=== PATIENT | female | born 1960 | race Caucasian/White ===

== ENCOUNTER 2020-01-26 11:00 | Outpatient (RCR) | payer OTHER, SELFPAY ==
--- NOTE | 2020-03-03 12:01 | MHC.PT.DC ---
[facility] [place] Office [place] Office [place] Office [address] Autumn Remy [address] [phone] F: [phone] F: [phone] F: [phone] F: [phone] Physical Therapy Discharge Report Diagnosis: LE Weakness, OA R Knee Date of Surgery: NA Date of Evaluation: 09/05/19 Date of Discharge: 01/26/20 Treatments to Date: 31 Cancellations to Date: 5 No Shows to Date: 2 Discharge Status: Improved Function Independent with HEP Discharge Summary: PER NOTE 01/25 FROM [facility]...pt with increased randy for ex. Gt distance and quality have improved. D/c to HEP per PT plan today. Electronically signed by: RUBÉN COBB PT Please sign and return to therapist. Thank you for your referral.
== END 2020-03-31 13:39 | disposition other institution (70) ==
LOC: HO.PT 11:00
PROVIDERS: PCP Orthopaedic Surgery; Visit Provider Orthopaedic Surgery
DX: M17.11 Unilateral primary osteoarthritis, right knee (principal); R53.81 Other malaise
CPT/HCPCS: 97110; 97530

== ENCOUNTER → 2020-02-03 08:16 | Outpatient (BNVA) | payer OTHER, SELFPAY | PROVIDERS: PCP Internal Medicine; Visit Provider Surgery | DX: Z76.89 Persons encountering health services in other specified circumstances (principal) ==

== ENCOUNTER 2020-02-13 12:18 | Outpatient (REF) | payer OTHER, SELFPAY ==
[2020-02-13 13:17] LABS: MANUAL DIFF FLAG NO
[2020-02-13 13:20] LABS: Basophils Percent Auto 0.9 % (0-2); Eosinophils Absolute Auto 0.1 X10*3/uL (0.0-0.4); Eosinophils Percent Auto 1.3 % (0-4); Hematocrit 42.7 % (37-47); Hemoglobin 13.5 g/dl (12.0-16.0); Imm Gran Abs Auto 0.02 X10*3/uL (0.00-0.03); Imm Gran Pct Auto 0.4 % (0.0-0.4); Lymphocytes Absolute Auto 1.3 X10*3/uL (1.2-4.9); Lymphocytes Percent Auto 27.5 % (20-40); Mean Corpuscular HGB Conc 31.6 g/dl (31.0-35.0); Mean Corpuscular Hemoglobin 27.7 pg (27.0-33.0); Mean Corpuscular Volume 87.5 fL (80-98); Monocytes Absolute Auto 0.3 X10*3/uL (0.1-1.2); Monocytes Percent Auto 7.1 % (2-11); Neutrophils Absolute Auto 2.9 X10*3/uL (2.0-8.3); Neutrophils Percent Auto 62.8 % (45-73); Platelet Count 234 X10*3/uL (160-400); Red Blood Count 4.88 X10*6/uL (4.20-5.50); Red Cell Distribution Width 13.6 % (11.0-16.0); White Blood Count 4.7 X10*3/uL (4.8-10.8)
[2020-02-13 13:37] LABS: Estimated Average Glucose 134 mg/dL; Hemoglobin A1c % 6.3 %
[2020-02-13 13:53] LABS: Alanine Aminotransferase 45 U/L (0-31); Albumin Level 4.3 g/dL (3.5-5.0); Alkaline Phosphatase 114 U/L (39-117); Anion Gap 12 (12-20); Aspartate Amino Transferase 30 U/L (5-31); Bilirubin Total 0.7 mg/dL (0.0-1.0); Blood Urea Nitrogen 10 mg/dL (9-16); C Reactive Protein 1.17 mg/dL (< or = 0.50); Carbon Dioxide 29 mmol/L (22-29); Chloride 105 mmol/L (96-108); Cholesterol 158 mg/dL; Estimated Glomerular Filt Rate > 60; Glucose Random 113 mg/dL (60-115); HDL Cholesterol 34 mg/dL; LDL Cholesterol Calculated 101 mg/dl; Potassium 4.8 mmol/l (3.3-5.1); Sodium 141 mmol/L (135-145); Triglycerides 118 mg/dL
[2020-02-13 13:59] LABS: Calcium 10.4 mg/dL (8.4-10.2)
[2020-02-13 14:12] LABS: Ferritin 84 ng/mL (10-250); TSH reflex Free T4 1.33 mIU/mL (0.32-4.0); Vitamin D 25-OH Total 44.6 ng/mL (>30)
[2020-02-13 14:24] LABS: Folate 11.5 ng/mL (> or = 4.0); Vitamin B12 454 pg/mL (200-900)
[2020-02-15 14:03] LABS: Calcium (PTHI) 10.8 mg/dL (8.6-10.4); PTHI 135 pg/mL (14-64)
[2020-02-17 13:12] LABS: Zinc 77 mcg/dL (60-130)
[2020-02-19 11:17] LABS: Vitamin B1 17 nmol/L (8-30)
[2020-02-19 19:53] LABS: Vitamin A 43 mcg/dL (38-98)
== END 2020-02-13 12:19 | disposition home or self-care (01) ==
LOC: HO.LAB 12:18
PROVIDERS: PCP Internal Medicine; Visit Provider Surgery
DX: E66.01 Morbid (severe) obesity due to excess calories (principal); I10 Essential (primary) hypertension; G47.30 Sleep apnea, unspecified; K21.9 Gastro-esophageal reflux disease without esophagitis; E78.5 Hyperlipidemia, unspecified
CPT/HCPCS: 36415; 80053; 80061; 82306; 82607; 82728; 82746; 83036; 83525; 83970; 84425; 84443; 84590; 84630; 85025; 86140

== ENCOUNTER 2020-02-19 08:56 | Outpatient (REF) | payer OTHER, SELFPAY ==
[2020-02-20 15:28] LABS: H Pylori Breath Test NOT DETECTED (NOT DETECTED)
== END 2020-02-19 08:57 | disposition home or self-care (01) ==
LOC: HO.LNP 08:56
PROVIDERS: PCP Internal Medicine; Visit Provider Physician Assistant
DX: E66.01 Morbid (severe) obesity due to excess calories (principal); I10 Essential (primary) hypertension; G47.30 Sleep apnea, unspecified; K21.9 Gastro-esophageal reflux disease without esophagitis; E78.5 Hyperlipidemia, unspecified; Z11.0 Encounter for screening for intestinal infectious diseases
CPT/HCPCS: 83013; 99211

== ENCOUNTER → 2020-03-01 08:07 | Outpatient (BNVA) | payer OTHER, SELFPAY | PROVIDERS: PCP Internal Medicine; Visit Provider Surgery | DX: Z76.89 Persons encountering health services in other specified circumstances (principal) ==

== ENCOUNTER 2020-03-02 14:57 | Outpatient (REF) | payer OTHER, SELFPAY | END 2020-03-02 14:58 | disposition home or self-care (01) | LOC: HO.LAB 14:57 | PROVIDERS: PCP Internal Medicine; Visit Provider Surgery | DX: Z13.89 Encounter for screening for other disorder (principal) ==

== ENCOUNTER → 2020-03-03 08:12 | Outpatient (BNVA) | payer OTHER, SELFPAY | PROVIDERS: PCP Internal Medicine; Referring Provider Internal Medicine; Visit Provider Dietitian, Registered | DX: Z76.89 Persons encountering health services in other specified circumstances (principal) ==

== ENCOUNTER 2020-03-16 09:56 | Outpatient (REF) | payer OTHER, SELFPAY ==
--- NOTE | 2020-03-16 10:01 | FL_ITS ---
EXAMINATION: XR GI SERIES CLINICAL INFORMATION: Obesity. Preop. COMPARISON: None TECHNIQUE: Upper GI was performed using thin and thick barium and effervescent granules. FINDINGS: Esophageal motility is normal. There is a small sliding-type hiatal hernia. There is mild gastroesophageal reflux. The stomach and duodenum are normal appearing. No fold thickening, mass, ulcer or stricture is seen. FLUOROSCOPY TIME: 1.1 minutes DOSE AREA PRODUCT: 13.7 landrum per centimeter squared. Total dose 61 mgy. 26 saved fluoroscopic images. FL/FL upper GI series IMPRESSION: Small sliding-type hiatal hernia and mild gastroesophageal reflux. Otherwise unremarkable exam.
--- NOTE | 2020-03-16 10:01 | XR_ITS ---
EXAMINATION: XR CHEST CLINICAL INFORMATION: Morbid to severe obesity. Preop. COMPARISON: None TECHNIQUE: 2 views of the chest were obtained. FINDINGS: The lungs are well-expanded and clear of acute process. The heart size and pulmonary vascularity is normal. No gross bony abnormality seen. XR/XR chest 2V IMPRESSION: Unremarkable chest exam
--- NOTE | 2020-03-16 10:03 | US_ITS ---
EXAMINATION: US COMPLETE ABDOMEN WITH LIVER ELASTOGRAPHY CLINICAL INFORMATION: Obesity COMPARISON: None. TECHNIQUE: Real-time imaging of the abdominal viscera. Noninvasive ultrasound liver fibrosis assessment is performed using Ann-Marie ElastPQ point quantification shear wave elastography (pSWE) with a 5 MHz transducer. Multiple elastography samples are obtained. FINDINGS: PANCREAS: Normal. ABDOMINAL AORTA: The proximal, middle, and distal aortic segments are normal in caliber. INFERIOR VENA CAVA: Visualized portions are normal. LIVER: Liver echotexture is increased probably representing fatty infiltration. No focal lesion or intrahepatic biliary duct dilatation. The liver is slightly enlarged. The right lobe measures 18.7 cm in length. The left lobe measures 12.8 cm in length. The main portal vein is patent with appropriate hepatopedal flow Shear wave elastography provides a median stiffness of 1.3 m/s (reference: normal median stiffness is 0.81 - 1.22 m/s). The IQR/median stiffness to assess sampling precision is 0.2 (reference: optimal IQR/median stiffness is under 0.3). GALLBLADDER: No gallstones are seen. There is a 2 mm echogenic density adjacent to the gallbladder wall that does not move or shadow suggestive of a small polyp.. COMMON BILE DUCT: Normal in caliber measuring 0.3 cm in diameter. RIGHT KIDNEY: There is a 2 x 2.7 x 2.3 cm hyperechoic lesion in the cortex of the lower pole of the right kidney. There is a second smaller 7 x 5 x 6 mm hyperechoic lesion in the cortex of the midpole. No hydronephrosis. No renal calculi. The kidney measures 12.3 cm in maximum dimension. LEFT KIDNEY: There is a 3 mm echogenic density in the midpole questionable for a stone. No hydronephrosis. No focal parenchymal lesions. The kidney measures 11.9 cm in maximum dimension. SPLEEN: Normal. The spleen measures 11.8 cm in maximum dimension. FREE FLUID: None. US/US abdomen comp w elastography IMPRESSION: 1. Impression: slightly enlarged echogenic liver probably representing fatty infiltration. Small gallbladder wall polyp. 2 hyperechoic right renal lesions questionable for angiomyolipomas. Confirmation with CT or MRI of the kidneys is recommended. Question small left renal stone. 2. Elastography: Metavir score F0 to F1 suggestive of normal to mild increased risk of developing liver fibrosis.
--- NOTE | 2020-03-16 14:14 | PFT_ITS ---
FLOWS: FEV1 of 61% of predicted at 1.55 L. FVC 59% of predicted at 1.88 L. FEV1 to FVC ratio of 0.83. No bronchodilator response. LUNG VOLUMES: Total lung capacity 63% of predicted at 3.20 L. Residual volume 50% of predicted at 1.02 L. Diffusion capacity is mildly decreased, diffusion capacity adjust to normal after correction for alveolar ventilation. IMPRESSION: Moderate restrictive ventilatory defect with no bronchodilator response. Decreased expiratory reserve volume suggests extrathoracic restriction likely secondary to abdominal obesity. Jose Daniel Nguyễn MD AP/MODL / [id number]
== END 2020-03-16 09:57 | disposition home or self-care (01) ==
LOC: HO.US 09:56
PROVIDERS: PCP Internal Medicine; Visit Provider Surgery
DX: Z01.818 Encounter for other preprocedural examination (principal); E66.01 Morbid (severe) obesity due to excess calories; K21.9 Gastro-esophageal reflux disease without esophagitis; J45.41 Moderate persistent asthma with (acute) exacerbation
CPT/HCPCS: 71046; 74240; 76705; 76981; 94060; 94727; 94729

== ENCOUNTER 2020-03-19 18:56 | Outpatient (REF) | payer OTHER, SELFPAY ==
[2020-03-21 19:17] LABS: Calcium, 24 Hr Urine 189 mg/24 h; Calcium/Creatinine Ratio 246 mg/g creat (30-275); Creatinine 24Hr Urine 0.77 g/24 h (0.50-2.15)
== END 2020-03-19 18:57 | disposition home or self-care (01) ==
LOC: HO.LNP 18:56
PROVIDERS: Visit Provider Surgery
DX: E83.52 Hypercalcemia (principal)
CPT/HCPCS: 82340

== ENCOUNTER → 2020-03-26 08:25 | Outpatient (BNVA) | payer OTHER, SELFPAY | PROVIDERS: PCP Internal Medicine; Visit Provider Surgery | DX: Z76.89 Persons encountering health services in other specified circumstances (principal) ==

== ENCOUNTER → 2020-04-07 08:12 | Outpatient (BNVA) | payer OTHER, SELFPAY | PROVIDERS: PCP Internal Medicine; Visit Provider Dietitian, Registered | DX: Z76.89 Persons encountering health services in other specified circumstances (principal) ==

== ENCOUNTER → 2020-04-19 15:07 | Outpatient (BNVA) | payer OTHER, SELFPAY | PROVIDERS: PCP Internal Medicine; Visit Provider Internal Medicine Pulmonary Disease | DX: Z01.811 Encounter for preprocedural respiratory examination (principal) | CPT/HCPCS: 99202 ==

== ENCOUNTER → 2020-04-21 08:20 | Outpatient (BNVA) | payer OTHER, SELFPAY | PROVIDERS: PCP Internal Medicine; Visit Provider Surgery ==

== ENCOUNTER → 2020-04-28 08:19 | Outpatient (BNVA) | payer OTHER, SELFPAY | PROVIDERS: PCP Internal Medicine; Visit Provider Dietitian, Registered ==

== ENCOUNTER 2020-05-06 08:07 | Outpatient (REF) | payer OTHER, SELFPAY ==
--- NOTE | ~2020-05-06 | CT_ITS ---
EXAMINATION: CT ABDOMEN AND PELVIS WITH CONTRAST CLINICAL INFORMATION: Benign lipomatous neoplasm of the kidney. COMPARISON: Ultrasound of 03/16/2020 TECHNIQUE: Multidetector volumetric images were obtained from the superior aspect of the liver through the pubic symphysis following administration 85 mL of Omnipaque 350 intravenous contrast. Sagittal and coronal reformatted images were obtained on the technologist's workstation. Oral contrast: No. This CT examination was performed using dose optimization techniques as appropriate, variously including the following: *Automated exposure control *Adjustment of mA and/or kV according to patient size (this includes techniques or standardized protocols for targeted exams where dose is matched to indication/reason for exam; i.e. extremities or head) *Use of iterative reconstruction technique DLP: 1343 mGy-cm FINDINGS: LUNG BASES: The visualized lung bases are unremarkable. No pleural or pericardial effusion. LIVER, GALLBLADDER, AND BILIARY TREE: The liver is prominent at 19.5 cm in vertical span. No focal mass or intrahepatic bile duct dilatation is seen. The gallbladder is unremarkable with no evidence of radiopaque gallstones, gallbladder wall thickening, or obvious pericholecystic inflammatory changes. PANCREAS: There is some fatty involution present without focal mass or peripancreatic inflammatory change. SPLEEN: Unremarkable. ADRENAL GLANDS: Unremarkable. KIDNEYS AND URETERS: Right kidney: There is a 3 mm upper pole nonobstructing calculus which lies approximately 11 cm from the posterior mid axillary line. There are two 2 mm nonobstructing calculi seen within the mid to lower pole of the right kidney approximately 11 cm from the posterior mid axillary line. There are a few sub-5 mm low-density lesions present which may represent small cysts or angiomyolipomas. There is an exophytic anterior lower pole fat density lesion measuring approximately 3.0 x 2.7 cm in size with Hounsfield unit measurements of -40. No definite soft tissue component is appreciated. No hydronephrosis. Column of Rico present. Right ureter unremarkable. Left kidney: There are numerous fat density lesions present, the largest of which is in the lower pole measuring 1.7 x 1.2 cm in size. No hydronephrosis. There is a 4 mm nonobstructing lower pole calculus lying approximately 11.5 cm from the posterior mid axillary line. Left ureter appears unremarkable. BLADDER: Unremarkable. GASTROINTESTINAL TRACT: No dilated loops of large or small bowel are evident. No free air or free fluid. Mild sigmoid diverticulosis. No evidence of acute diverticulitis. No pericolonic inflammatory change. Appendix is visualized and appears unremarkable. ABDOMINAL WALL: No significant hernia is appreciated. LYMPH NODES: No lymphadenopathy appreciated. VASCULAR: Unremarkable. PELVIC VISCERA: Unremarkable. OSSEOUS STRUCTURES: No destructive bony lesions identified. There is degenerative disc disease with facet arthropathy at the L5-S1 level with a grade [address]/CT abdomen pelvis w con IMPRESSION: Bilateral nephrolithiasis without obstructive uropathy. Numerous bilateral fat density renal lesions without suspicious enhancing mass appreciated.
[2020-05-06 09:20] LABS: Blood Urea Nitrogen 12 mg/dL (9-16); Estimated Glomerular Filt Rate > 60
[2020-05-06] MEDS: iohexoL 350 MG/ML 100 ML INFUS..BTL 85 ML IV (09:40)
--- NOTE | 2020-05-06 09:58 | ECG_ITS ---
Test Reason : E66.01 - Morbid (severe) obesity due to excess calories Blood Pressure : / mmHG Vent. Rate : 069 BPM Atrial Rate : 069 BPM P-R Int : 162 ms QRS Dur : 106 ms QT Int : 414 ms P-R-T Axes : 072 094 016 degrees QTc Int : 443 ms Normal sinus rhythm Rightward axis Incomplete right bundle branch block Borderline ECG No previous ECGs available Referred By: Randy Domínguez Electronically Signed By:MARII THURSTON MD
== END 2020-05-06 08:08 | disposition home or self-care (01) ==
LOC: HO.CT 08:07
PROVIDERS: Physician Assistant; PCP Internal Medicine; Visit Provider Surgery
DX: Z01.818 Encounter for other preprocedural examination (principal); D17.71 Benign lipomatous neoplasm of kidney; E66.01 Morbid (severe) obesity due to excess calories; E78.5 Hyperlipidemia, unspecified; G47.30 Sleep apnea, unspecified; I10 Essential (primary) hypertension; K21.9 Gastro-esophageal reflux disease without esophagitis
CPT/HCPCS: 36415; 74177; 82565; 84520; 93005; Q9967

== ENCOUNTER → 2020-05-11 08:07 | Outpatient (BNVA) | payer OTHER, SELFPAY | PROVIDERS: PCP Internal Medicine; Visit Provider Dietitian, Registered ==

== ENCOUNTER → 2020-05-17 07:29 | Outpatient (BNVA) | payer OTHER, SELFPAY | PROVIDERS: PCP Internal Medicine; Visit Provider Surgery ==

== ENCOUNTER → 2020-05-24 07:48 | Outpatient (REF) | payer OTHER, SELFPAY ==
--- NOTE | ~2020-05-24 | NM_ITS ---
Myocardial perfusion study Indication: Abnormal EKG to evaluate for myocardial ischemia Technique: The patient was brought in for a Lexiscan perfusion study on 05/24/2020. Patient performed low-level exercise and was injected 0.4 mg of Lexiscan intravenously. Within a minute of injection, 40 mCi of sestamibi was given intravenously. Images were obtained using the SPECT gamma camera interlaced with the gating device. Images were obtained in supine position. Resting perfusion study was performed on 05/25/2020. Patient was administered 40 mCi of sestamibi intravenously at rest. Images were then obtained in supine position. Images obtained with and without CT attenuation. Total DLP 128 mGy-cm. Images were processed with the software and compared side to side in short axis, horizontal long axis and vertical long axis views. Findings: The stress perfusion study showed non attenuated images show small area of moderately reduced uptake in the basal inferior wall of the LV myocardium as well as mildly reduced uptake in the basal septum of the LV myocardium. Attenuation corrected images show minimal thinning of the basal inferior wall of the LV myocardium with mildly reduced uptake in the distal septum of the LV myocardium.. The gated study shows normal LV systolic function with calculated LVEF of 55%. LV cavity is normal in size. The gated study shows normal systolic wall thickening and contraction of segments. Resting study shows attenuation corrected images show normal uptake of radiotracer in all segments of LV myocardium with minimally reduced uptake in the apex of the LV myocardium.. Gating at rest reveals normal systolic wall motion with ejection fraction at 59%. The findings are consistent with shifting of inferobasal wall on attenuated corrected images but no significant reduction uptake. This is an equivocal finding, however most likely normal myocardial perfusion.. NM/NM yessi perf SPECT rest & str Impression: 1. Myocardial perfusion imaging study shows likely normal myocardial perfusion 2. Gated LVEF is 55% 3. Transient ischemic dilatation not present EKG is nondiagnostic for ischemia
--- NOTE | 2020-05-24 07:51 | CA_ITS ---
Acquisition Time: 2020-05-24 08:10:46 Total Exercise Time: 00:02:00 Test Indications: Abnormal ECG Medications: Protocol: LEXISCAN Max HR: 088 BPM 55% of Pred: 159 BPM Max BP: 126/078 mmHG Max Work Load: 1.0 METS Pharmacological stress test using Lexiscan while sitting and kicking her feet. Pt tolerated well. Denies any anginal sx. EKG without arrythmias, non-diagnostic with ischemia. Nuclear images to follow. Normotensive response to test. Test reviewed with Dr. Rodrigez. Referred By: Randy Domínguez Overread By: Myla Nichols NP
== END ==
LOC: HO.CARD 07:48
PROVIDERS: PCP Internal Medicine; Visit Provider Surgery
DX: Z01.818 Encounter for other preprocedural examination (principal); I10 Essential (primary) hypertension; R94.31 Abnormal electrocardiogram [ECG] [EKG]
CPT/HCPCS: 78452; 93017; A9500; J0280; J2785

== ENCOUNTER → 2020-06-01 11:11 | Outpatient (BNVA) | payer OTHER, SELFPAY | PROVIDERS: PCP Internal Medicine; Visit Provider Dietitian, Registered ==

== ENCOUNTER → 2020-06-09 08:16 | Outpatient (BNVA) | payer OTHER, SELFPAY | PROVIDERS: PCP Internal Medicine; Visit Provider Surgery ==

== ENCOUNTER → 2020-06-23 09:21 | Outpatient (REF) | payer OTHER, SELFPAY ==
--- NOTE | 2020-06-23 09:23 | CA_ITS ---
Transthoracic Echocardiogram Patient (Last, First, Middle): Ana Luisa House A Gender: Female Date of : 1960 Age: 59 Procedure Date: 06/23/2020 Procedure Type: Transthoracic Echocardiogram Location: OP Height: 162.56 cm Weight: 108.86 kg BSA: 2.11 m2 Heart Rate: bpm BP: 130 / 76 mmHg Private Branch Exchange Operator: CAR Referring MD: Randy Domínguez MD Symptoms: R94.31 - Abnormal electrocardiogram [ECG] [EKG] Study Quality: Fair/contrast ECG Rhythm: Sinus Conclusions: - The left ventricular systolic function is normal. The visually estimated ejection fraction is between 60-65%. - There is mild mitral annular calcification. - No obvious valvular pathology seen on this study. Findings Procedure Information Contrast agent, definity, is being given per protocol without apparent complications. Left Ventricle Normal left ventricular cavity size. There is mildly increased left ventricular wall thickness. The left ventricular systolic function is normal. The visually estimated ejection fraction is between 60-65%. The calculated ejection fraction is 63% by biplane method. There is no evidence of regional wall motion abnormalities. Diastolic function is normal for age. Right Ventricle Normal right ventricular cavity size and systolic function. Atria The left atrium is normal in size. The right atrium is normal in size. Aortic Valve The aortic valve was not well visualized. There is no aortic valve stenosis. There is no aortic valve regurgitation. Mitral Valve There is mild mitral annular calcification. There is trace mitral valve regurgitation. There is no mitral valve stenosis. Pulmonic Valve The pulmonic valve was not well visualized. Tricuspid Valve There is trace tricuspid valve regurgitation. The pulmonary artery systolic pressure is normal. Great Vessels The aortic annulus, sinuses of valsalva, asc aorta, and aortic arch are normal in size. Venous The inferior vena cava is normal in size and collapses greater than 50% with inspiration. Pericardium/Pleural There is no evidence of pericardial effusion. Prior Study Comparison No prior study available for comparison. Recommendations, Care & Conclusions No obvious valvular pathology seen on this study. Measurements 2D Linear Measurements IVSd: 1.07 0.6-0.9/0.6-1.0 cm LVIDd: 4.36 3.9-5.3/4.2-5.9 cm LVIDd Index: 2.07 2.4-3.2/2.2-3.1 cm/m2 LVIDs: 2.65 2.0-3.6 cm LVPWd: 1.10 0.7-1.1 cm Ao Root: 2.30 2.1-3.5 cm LA Diam: 3.60 2.7-3.8/3.0-4.0 cm LAIDs Index: 1.71 1.5-2.3 cm/m2 LV Mass: 203.39 67-162/88-224 g LV Mass Index: 96.39 43-95/49-115 g/m2 LVOT Diam: 2.00 3.0+(-)1.3 cm 2D Systolic Function EF 4C: 65.10 >55% EF 2C: 60.70 >55% EF BiP: 63.30 >55% Mitral Valve MV Pk E: 0.75 MV PK A: 0.98 MV Decel Time: 261.00 E/A: 0.80 E'Lateral: 5.90 E'Medial: 5.71 E/E' Med: 13.10 E/E' Lat: 12.60 PHT: 76.00 MVA PHT: 2.89 Decel [place]: 2.86 Aortic Valve AoV Pk Junior: 1.71 AoV Mn Junior: 1.04 AoV VTI: 0.32 AoV Pk Grad: 12.00 Aov Mn Grad: 5.00 SYD Cont.VTI: 2.68 LVOT LVOT Pk Junior: 1.28 LVOT Mn Junior: 0.84 LVOT VTI: 0.27 LVOT Pk Grad: 7.00 LVOT Mn Grad: 3.00 LVOT Diam: 2.00 LVOT Area: 3.14 Diastolic Function MV Pk E: 0.75 MV Pk A: 0.98 E/A: 0.80 E'Medial: 5.71 E/E' Med: 13.10 E' Laterial: 5.90 E/E' Lat: 12.60 Tricuspid Valve TR Pk Junior: 1.81 TR Pk Grad: 13.00 RA Press: 3.00 RVSP: 16.00 Great Vessels Aorta Ao Root-2D: 2.30 2.0-3.7 cm Ao Asc: 3.10 2.1-3.4 cm Ao Arch: 2.60 Updated in Other Vendor System with Status of Final Tu Pickens MD electronically signed on 06/23/2020 4:19:43 PM with status of Final
== END ==
LOC: HO.CARD 09:21
PROVIDERS: PCP Internal Medicine; Visit Provider Surgery
DX: Z01.818 Encounter for other preprocedural examination (principal); I10 Essential (primary) hypertension; R94.31 Abnormal electrocardiogram [ECG] [EKG]
CPT/HCPCS: 93306; Q9957

== ENCOUNTER → 2020-06-30 08:28 | Outpatient (BNVA) | payer OTHER, SELFPAY | PROVIDERS: PCP Internal Medicine; Visit Provider Surgery ==

== ENCOUNTER → 2020-07-21 08:09 | Outpatient (BNVA) | payer OTHER, SELFPAY | PROVIDERS: PCP Internal Medicine; Visit Provider Surgery ==

== ENCOUNTER → 2020-08-16 07:46 | Outpatient (BNVA) | payer OTHER, SELFPAY | PROVIDERS: PCP Internal Medicine; Visit Provider Surgery ==

== ENCOUNTER 2024-01-21 10:41 | Outpatient (AMB) | payer OTHER, SELFPAY ==
--- NOTE | 2024-01-21 10:43 | MHC.OFFVIS ---
Vital Signs 01/21/24 10:44 Height 5 ft 3 in Weight 278 lb BMI 49.2 Intake Visit Reasons: 05/30 LVM+Let ENP-Amaurosis fugax R eye Intake Note: Patient presents for Amaurosis fugax R eye Allergies cefadroxil [From Duricef] Allergy (Verified 01/21/24 10:47) Unknown Penicillins Allergy (Verified 01/21/24 10:47) Unknown Medication List - Last Reconciled 01/21/24 by Marquita Tripp MD albuterol sulfate 90 mcg/actuation inhalation amlodipine (Norvasc) 10 mg PO DAILY atorvastatin 20 mg PO DAILY cholecalciferol (vitamin D3) 125 mcg PO DAILY clonidine 1 patch topical QWEEK docusate sodium 100 mg PO BID flu vacc [id number] 6mos up(PF) mL IM fluticasone propionate 50 mcg/actuation intranasal ibuprofen 600 mg PO TID PRN levothyroxine 125 mcg PO DAILY losartan 50 mg PO DAILY mepolizumab mg subcut mirabegron ER 50 mg PO DAILY montelukast 10 mg PO DAILY pantoprazole mg PO sennosides mg PO sertraline 100 mg PO DAILY solifenacin 10 mg PO DAILY spironolactone 25 mg PO DAILY sumatriptan succinate take 1 tab at onset of headache; if no relief may repeat 1 tab after at least 2 hrs; max = 4 tabs/24 hr PO tiotropium bromide 1.25 mcg/actuation inhalation trazodone mg PO venlafaxine ER (Effexor XR) 37.5 mg PO BEDTIME HPI Comments Details: 63 year old female with h/o Glaucoma, VIRGIE / BMI is 49.2 and possible TIA Apr 2023, presents for vision difficulties. She thinks she had a TIA, her symptoms lasted 10 min, and resolved. She was at her PCP office and sent to [facility], ever since then is having speech, vision and memory difficulties. She is concerned due to family h/o dad dementia and mom with alzheimer at 86. PcP is Dr. Rayne Pulido, [facility] When she speaks, the words she uses are different from what she is trying to express. When Processing speech it takes her longer to understand what is being said to her. She lost her vision completely, at the onset of headache at her PCP. Headaches one sided then migrates to the right side. R>L Headaches last 5-20 minutes, but she lays down for days. Headaches have been present for 10 + years. Migraines occur every 2 week with vision changes, becomes frustrated, can't focus, sees floaters, like bubbles 1x amonth. Her Mood is irritable, stubborn personality according to daughter, her [employer]. Her Daughter helps with ADLs, as she has Bowel and Urinary incontinence along with urgency. Denies Nausea and Vomiting. Endorses Light and noise sensitivity. Her memory is poor, she gets lost alot. [facility] Medical History Transient visual loss Cognitive and behavioral changes Loss of vision Paroxysmal hemicrania Chronic migraine with aura Constipation Insomnia DJD (degenerative joint disease) Hypothyroidism Stress incontinence GERD (gastroesophageal reflux disease) Hyperlipidemia Sleep apnea Asthma Hypertension Surgical History History of rotator cuff surgery Morbid obesity History of bladder suspension procedure Hx of hernia repair History of mandibular surgery Family History Mother Alzheimer disease Pulmonary emphysema Diabetes Asthma Father Diabetes Hypertension Pacemaker Sister Diabetes Sister Diabetes Brother Hypertension Brother No problems noted. Daughter Asthma Social History Alcohol intake: never Advance Directives Date on File: 12/15/19 Review of Systems ENT Reports Normal hearing present Neuro Reports Normal hearing present and Reports Abnormal speech present Physical Exam Vital Signs: BMI result Body Mass Index 49.2 Const General: cooperative and no acute distress Nutritional Appearance: obese (BMI >49.2) centrally obese Orientation/consciousness: patient oriented x3 HEENT Head: Yes normal to inspection Face and sinus: Yes face symmetric Mouth: tongue normal Eyes General: appearance normal, both eyes and all related structures Pupils: Equal, round and reactive pupils present, Pupils normal by confrontation and Pupil accommodation reflex normal Neck Neck: Yes full ROM (Limited ROM to the L and the R.) Resp Effort & Inspection: normal respiratory effort and able to speak in complete sentences Neuro General: patient oriented x3, moves all extremities (slow movements /L side weak d/t surgery rotator cuff.), Normal light touch and pain sensation and CN's II-XI intact bilaterally Cranial nerves: Yes CN's II-XII intact bilaterally, Yes Facial sensation intact/muscles of mastication intact, Yes Equal, round and reactive pupils present, Yes Normal accommodation reflex present, Yes Nystagmus not present, Yes Normal facial strength present, Yes Midline tongue present, Yes Normal hearing present, Yes Ability to bilaterally rotate head present (Limited ROM R side and Left side.) and Yes Ability to bilaterally elevate shoulders present Speech: Abnormal speech present other (pauses for 30 seconds, and takes a breath then speaks.) Motor exam (neuro): 5/5 motor strength present throughout (Decreased strength Lower EXT and L. side to resistance.) Deep tendon reflexes (DTR's): Right triceps reflex intensity grade: 2+, Rt Biceps (C5, C6): 2+, Right brachioradialis reflex intensity grade: 2+, Right patellar reflex intensity grade: 2+ and Left patellar reflex intensity grade: 2+ Coordination: [id number] test normal Assessment & Plan Assessment & Plan (1) Chronic migraine with aura: Comment: ? paroxysmal hemicrania Code(s): G43.E09 - Chronic migraine with aura, not intractable, without status migrainosus Category: Medical Qualifiers: Intractability: intractable Status migrainosus presence: without status migrainosus Qualified Code(s): G43.E19 - Chronic migraine with aura, intractable, without status migrainosus (2) Transient visual loss: Comment: ? related to migraine -unlikely due o a TIA Code(s): H53.129 - Transient visual loss, unspecified eye Category: Medical Qualifiers: Laterality: bilateral Qualified Code(s): H53.123 - Transient visual loss, bilateral (3) Cognitive and behavioral changes: Code(s): R41.89 - Other symptoms and signs involving cognitive functions and awareness; R46.89 - Other symptoms and signs involving appearance and behavior Category: Medical Plan I will trial her on sumatriptan succinate 50mg take 1 tab at onset of headache; if no relief may repeat 1 tab after at least 2 hrs; max = 4 tabs/24 hr PO venlafaxine ER for prophylaxis (Effexor XR) 37.5 mg PO BEDTIME MRI - family h/o of Alzheimers Dementia, she is having word finding and expressive difficulties. Possible TIA in Apr 2023. suggested to follow up with Eye Exams as patient continues to have blurry vision and flashing. Track migraines MRI Brain to r/o revsible causes Labs- Vit B 12 TSH ESR CMP CBC to r/o reversible causes Will consider sleep study Orders: Orders Vitamin B12 and Folate 01/22/24 G44.039 - Episodic paroxysmal hemicrania, not intractable, H54.7 - Unspecified visual loss, R41.89 - Other symptoms and signs involving cognitive functions and awareness, R46.89 - Other symptoms and signs involving appearance and behavior Complete Blood Count Auto Diff 01/22/24 G44.039 - Episodic paroxysmal hemicrania, not intractable, H54.7 - Unspecified visual loss MR brain wo con w neuroquant 01/21/24 G44.039 - Episodic paroxysmal hemicrania, not intractable, H54.7 - Unspecified visual loss, R41.89 - Other symptoms and signs involving cognitive functions and awareness, R46.89 - Other symptoms and signs involving appearance and behavior Erythrocyte Sedimentation Rate 01/22/24 G44.039 - Episodic paroxysmal hemicrania, not intractable, H54.7 - Unspecified visual loss TSH reflex Free T4 01/22/24 G44.039 - Episodic paroxysmal hemicrania, not intractable, H54.7 - Unspecified visual loss Comprehensive Met. Panel 01/22/24 G44.039 - Episodic paroxysmal hemicrania, not intractable, H54.7 - Unspecified visual loss Medications: New venlafaxine ER (Effexor XR) 37.5 mg PO BEDTIME 30 caps 2RF Coding Level of Care Code New Pt Level 4 (52666) Complex EM visit Add On G2211 Diagnoses Intractable chronic migraine with aura and without status migrainosus G43.E19 Intractability: intractable Status migrainosus presence: without status migrainosus Transient visual loss of both eyes H53.123 Laterality: bilateral Cognitive and behavioral changes R41.89; R46.89
[2024-01-21 10:44] VITALS: BMI 49.2
== END 2024-01-21 11:48 | disposition home or self-care (01) ==
PROVIDERS: PCP Internal Medicine; Visit Provider Physician Assistant Medical
DX: G43.E19 Chronic migraine with aura, intractable, without status migrainosus (principal); H53.123 Transient visual loss, bilateral; R41.89 Other symptoms and signs involving cognitive functions and awareness; R46.89 Other symptoms and signs involving appearance and behavior
CPT/HCPCS: 99204; G2211

== ENCOUNTER → 2024-01-21 10:41 | Outpatient (BNVA) | payer OTHER, SELFPAY | PROVIDERS: PCP Internal Medicine; Visit Provider Psychiatry & Neurology Neurology | DX: G43.E19 Chronic migraine with aura, intractable, without status migrainosus (principal); G44.039 Episodic paroxysmal hemicrania, not intractable; H53.123 Transient visual loss, bilateral; H54.7 Unspecified visual loss; R41.89 Other symptoms and signs involving cognitive functions and awareness; R46.89 Other symptoms and signs involving appearance and behavior | CPT/HCPCS: 99202 ==

== ENCOUNTER 2024-01-22 11:40 | Outpatient (REF) | payer OTHER, SELFPAY ==
[2024-01-22 13:37] LABS: MANUAL DIFF FLAG NO
[2024-01-22 13:41] LABS: Basophils Absolute Auto 0.1 X10*3/uL (0.0-0.2); Basophils Percent Auto 1.1 % (0-2); Eosinophils Absolute Auto 0.1 X10*3/uL (0.0-0.4); Eosinophils Percent Auto 1.7 % (0-4); Hematocrit 42.9 % (37.0-47.0); Hemoglobin 13.6 g/dl (12.0-16.0); Imm Gran Abs Auto 0.04 X10*3/uL (0.00-0.03); Imm Gran Pct Auto 0.5 % (0.0-0.4); Lymphocytes Absolute Auto 1.7 X10*3/uL (1.2-4.9); Mean Corpuscular HGB Conc 31.7 g/dl (31.0-35.0); Mean Corpuscular Hemoglobin 27.4 pg (27.0-33.0); Mean Corpuscular Volume 86.3 fL (80.0-98.0); Mean Platelet Volume 11.6 fL (9.4-12.3); Monocytes Absolute Auto 0.4 X10*3/uL (0.1-1.2); Monocytes Percent Auto 5.7 % (2-11); Neutrophils Absolute Auto 5.2 x10*3/uL (2.0-8.3); Platelet Count 239 X10*3/uL (160-400); Red Blood Count 4.97 X10*6/uL (4.20-5.50); Red Cell Distribution Width 14.1 % (11.0-16.0); White Blood Count 7.6 X10*3/uL (4.8-10.8)
[2024-01-22 14:17] LABS: Alanine Aminotransferase 63 U/L (0-31); Albumin Level 4.3 g/dL (3.5-5.0); Alkaline Phosphatase 158 U/L (39-117); Anion Gap 9 (12-20); Aspartate Amino Transferase 59 U/L (5-31); Bilirubin Total 0.7 mg/dL (0.0-1.0); Blood Urea Nitrogen 9 mg/dL (9-16); Calcium 11.5 mg/dL (8.4-10.2); Carbon Dioxide 32 mmol/L (22-29); Chloride 104 mmol/L (96-108); Estimated Glomerular Filt Rate > 60; Glucose Random 164 mg/dL (60-115); Potassium 4.1 mmol/L (3.3-5.1); Sodium 141 mmol/L (135-145); Total Protein 7.9 g/dL (6.5-8.0)
[2024-01-22 14:19] LABS: Erythrocyte Sedimentation Rate 20 MM/HR (0-20)
[2024-01-22 14:33] LABS: TSH reflex Free T4 2.74 uIU/mL (0.32-4.0)
[2024-01-22 15:18] LABS: Folate 11.1 ng/mL (> or = 4.0); Vitamin B12 340 pg/mL (200-900)
== END 2024-01-22 11:41 | disposition home or self-care (01) ==
LOC: HO.HMGCLDS 11:40
PROVIDERS: Psychiatry & Neurology Neurology; Visit Provider Internal Medicine Hypertension Specialist
DX: G44.039 Episodic paroxysmal hemicrania, not intractable (principal); H54.7 Unspecified visual loss; R41.89 Other symptoms and signs involving cognitive functions and awareness; R46.89 Other symptoms and signs involving appearance and behavior
CPT/HCPCS: 36415; 80053; 82607; 82746; 84443; 85025; 85652

== ENCOUNTER 2024-02-29 19:32 | Outpatient (REF) | payer OTHER, SELFPAY ==
--- OUTSIDE RECORDS SUMMARY | 2024-02-29 19:46 | XMS_ITS | Data Portability ---
Author Organization [facility], [address] Address [address] [place] [address] Assessment No assessment recorded. Plan of Treatment Reminders Order Date Submit Date Provider Last Modified By Organization Details Last Modified Time Details Appointments None recorded. Lab rapid flu (A+B) 2021 022 marva [email or web address] [address] [address], [address] [place], [address], 14:02:10 rapid SARS CoV 2 Ag, QL IA, respiratory specimen 2021 [facility] [address] [address], [address] [place], [address], 14:02:10 Referral None recorded. Procedures None recorded. Surgeries None recorded. Imaging None recorded. Medication Orders Tamiflu 75 mg capsule 2021 [facility]armacy #[id number], [phone] [place], [address], 03:31:38 promethazin e-DM 6.25 mg-15 mg/5 mL oral syrup 2021 [facility]/Pharmacy #[id number], [phone] [place], [address], 14:02:13 Patient TargetsNo targets recorded. Patient Instructions Encounter Date Encounter Id Patient Instructions Last Modified By Organization Details Last Modified Time 02/20/2022 [id number] You should follow-up with your PCP in days, or at any time if your condition does not improve or worsens. Any acute change should prompt a visit to the nearest Emergency Department. Increase oral fluids, rest while you are ill, ER if needed for worsening symptoms [email or web address] Not available 02/20/2022 20:29:01 Reason for Referral None Reported. Results Created Date Observation Date Name Description Value Unit Range Abnormal Flag Note LastModifiedBy Organization Detail LastModifiedTime 02/21/20 22 02/20/2022 rapid SARS CoV 2 Ag, QL IA, respi rator y speci men Unknown Analyte Not Available [address] [place] [address] [address] [place], [address], 02/20/2022 13:38:01 02/21/20 22 02/20/2022 rapid SARS CoV 2 Ag, QL IA, respi rator y speci men Unknown Analyte negati ve Not Available [address] [place], [address], 02/20/2022 13:38:01 02/21/20 22 02/20/2022 rapid flu (A+B) Unknown Analyte negati ve Not Available [address] [place], [address], 02/20/2022 13:24:32 02/21/20 22 02/20/2022 rapid flu (A+B) Unknown Analyte Normal = Negati ve Not Available [address] [place], [address], 02/20/2022 13:24:32 02/21/20 22 02/20/2022 rapid flu (A+B) Unknown Analyte negati ve Not Available [address] [place], [address], 02/20/2022 13:24:32 02/21/20 22 02/20/2022 rapid flu (A+B) Unknown Analyte Normal = Negati ve Not Available [address] [place], [address], 02/20/2022 13:24:32 Result Notes None recorded. Problems Name Problem SNOMED Code Status Onset Date Resolution Date Notes Provider Name and Address Organization Details Recorded Time Hypertensive disorder 78718623 Active 2021 Layne Trevino null, PA - [facility] 2 13:21:27 Hyperlipidemia 76579701 Active 2021 Layne Trevino null, PA - [facility] 2 13:21:42 Thyroiditis 09379704 Active 2021 Laynetristen Trevino null, PA - [facility] 2 13:21:59 Environmental allergy 463747386 Active 2021 Layne Trevino null, PA - [facility] 2 13:22:12 Migraine 98328546 Active 2021 Layne Trevino null, PA - [facility] 13:22:21 Diabetes mellitus 45143261 Active 2021 Layne Trevino null, PA - [facility] 13:22:34 Asthma 108036007 Active 2021 Layne Trevino null, PA - [facility] 2 13:22:44 Problem Notes None recorded. Procedures Surgical History Date Name Laterality Status Provider Name and Address Organization Details Recorded Time Knee arthroscopy/levy rgery completed Layne Trevino PA - [facility] 02/20/2022 13:23:19 delivery completed Layne Trevino PA - [facility] 02/20/2022 13:23:34 Hernia repair w/mesh completed Layne Trevino PA - [facility] 02/20/2022 13:23:54 Imaging Results None recorded. Procedure Notes None recorded. Medical Equipment None Reported. Allergies Allergen ID Allergen Name Allergen Category Reaction Reaction Severity Criticality Documentation Date Start Date Code Code System Note Provider Name and Address Organization Details Recorded Time 82249 Medicinal product containin g penicilli n and acting as antibacte rial agent (product) medicatio n swelling Not available high 02/20/2022 28158 05 SNOMED Layne Trevino null, PA - [facility] 2 13:13:07 55962 Duricef medicatio n swelling Not available Not available 02/20/202205850 6 RxNorm Laynetristen Trevino null, PA - [facility] 2 13:13:25 31649 Medrol medicatio n swelling Not available Not available 02/20/202209066 2 RxNorm Laynetristen Trevino null, PA - [facility] 2 13:13:43 91771 oxycodone medicatio n Not available Not available Not available 02/20/2022 7804 RxNorm Laynetristen Trevino null, PA - [facility] 2 13:13:52 34667 chocolate flavor food,medi cation Not available Not available Not available 02/20/2022 Layne Trevino null, PA - [facility] 13:14:02 69651 almond allergeni c extract food Not available Not available Not available 02/20/2022 35510 7 RxNorm Layne Trevino null, PA - [facility] 2 13:14:09 14278 Canis lupus familiari s extract environme nt Not available Not available Not available 02/20/2022 48573 4 RxNorm Layne Trevino null, PA - [facility] 2 13:14:18 00208 cat dander environme nt Not available Not available Not available 02/20/2022 Layne Trevino null, PA - [facility] 13:14:22 08877 rabbit dander environme nt Not available Not available Not available 02/20/2022 Layne Trevino null, PA - [facility] 2 13:14:29 61239 latex environme nt,medica tion Not available Not available Not available 02/20/2022 75607 91 RxNorm Layne Trevino null, PA - [facility] 2 13:14:36 10048 house dust mite environme nt Not available Not available Not available 02/20/2022 Layne Trevino null, PA - [facility] 13:14:44 84793 POLLEN EXTRACTS environme nt,medica tion Not available Not available Not available 02/20/2022 71421 6 RxNorm Layne simeon, PA - [facility] 2 13:14:56 36183 grass pollen environme nt,medica tion Not available Not available Not available 02/20/2022 Layne simeon, PA - [facility] 13:15:03 13877 ethinyl estradiol / levonorge strel medicatio n Not available Not available Not available 02/20/2022 91737 8 RxNorm Layne Trevino null, PA - [facility] 13:15:11 Medications Name Sig Start Date Stop Date Status Note LastModified by Organization Details LastModified Time promethazine-DM 6.25 mg-15 mg/5 mL oral syrup Take 5 mL every 4 hours by oral route for 4 days. 2021 active Not Available Not Available Not Avai lable Tamiflu 75 mg capsule Take 1 capsule twice a day by oral route for 5 days. 2021 active Not Available Not Available Not Avai lable magnesium active Not Available Not Jonelle ilable Not Available sumatriptan active Not Available Not A vailable Not Available atorvastatin active Not Available Not Available Not Available levothyroxine active Not Available Not Available Not Available Singulair active Not Available Not Jonelle ilable Not Available losartan active Not Available Not Avai lable Not Available Vitamin D3 active Not Available Not Av ailable Not Available metformin active Not Available Not Jonelle ilable Not Available Flovent Diskus active Not Available No t Available Not Available Kiesha Allergy active Not Available N ot Available Not Available ProAir RespiClick active Not Available Not Available N ot Available Nucala active Not Available Not Availa ble Not Available Vitals Date Recorded Body height Body mass index (BMI) Body weight Oxygen saturation Oxygen saturation in Arterial blood by Pulse oximetry Heart rate Respiratory rate Body temperature Systolic blood pressure Diastolic blood pressure Provider Name and Address Organization Details Last Updated DateTime 2 162.56 cm 44.6 kg/m2 430701. 02 g 100 % 100 % 85 /min 20 /min 98.8 [degF] 159 mm[Hg] 88 mm[Hg] [facility] 13:12:06 Social History Question Answer Notes LastModified by Organizat ion Details LastModified Time Tobacco Smoking Status Never Smoker [facility] 02/20/2022 13:23:07 What Is Your Level Of Alcohol Consumption? Occasional [email or web address] Information not available 02/20/2022 Have You Had Direct Contact, Or Contact During Intimacy, With Monkeypox Rash, Scabs, Or Body Fluids From A Person With Monkeypox? No [email or web address] Information not available 02/20/2022 Do You Use Any Illicit Or Recreational Drugs? No [email or web address] Information not available 02/20/2022 Have You Recently Traveled Abroad? No [email or web address] Information not available 02/20/2022 Sex: Unknown Functional Status None recorded. Mental Status None recorded. Family History Nothing Reported. Medical History No medical history recorded. Gynecological HistoryNo gynecological history recorded. Obstetrics History GPAL:G 0 P 0 0 0 0 Immunizations Vaccine Type Date Status Note Provider Nam e and Address Organization Details Recorded Time SARS-COV-2 (COVID-19) vaccine, UNSPECIFIED 09/09/2020 completed [facility] 02/20/2022 13:19:15 Past Encounters Encounter ID Performer Location Encounter Start Date Encounter Closed Date Diagnosis/Indication Diagnosis SNOMED-CT Code Diagnosis ICD10 Code [id number] [address] [facility] [address] [place] [address] 04/01/2019 17:17:25 04/01/2019 18:28:03 [id number] [place] [address] [facility] [address] [place] [address] 02/20/2022 12:02:53 02/20/2022 14:03:53 Generalized aches and pains 58519867 R52 Viral syndrome 812828819 B34.9 Health Concerns Section Related Observation LastModified by Organization Detai ls LastModified Time None Recorded Concern Status LastModified by Organization Details LastModified Time None Recorded Advance Directives Directive None Recorded Payers Encounter Date Sequence Insurance Name Policy Number Policy Saleh Covered Member ID Saleh Member ID Guarantor Name 04/01/2019 1 [facility] (MEDICAID REPLACEMENT - HMO) MAGDI [facility] [id number] Ana Luisa A House 02/20/2022 1 [facility] (MEDICAID REPLACEMENT - HMO) MAGDI [facility] [id number] Ana Luisa [facility] House Notes Date Note Type Note Provider Name and Address Organization Details Recorded Time 2 text/html CoughReported bypatient.source of patient informationInformation obtained from patient; Patient arrived at Urgent Care using walker; learning styles: auditory Quality:productive cough;dry and wet Severity:moderate Duration:constant Timing:constant Context:family members ill with similar symptoms Associated Symptoms:no chills; no chest pain; no heartburn; no nausea; no vomiting; no edema; no agitation; no wheezing; no post nasal drip;hurts to breath Evelina Xiao MD [address] [place] [address] [place], [address], [place] - [facility] 02/20/2022 20:29:48 OBGyn Episode No OBEpisode recorded.
== END 2024-02-29 19:33 | disposition home or self-care (01) ==
LOC: HO.MRI 19:32
PROVIDERS: PCP Internal Medicine; Visit Provider Psychiatry & Neurology Neurology
DX: G44.039 Episodic paroxysmal hemicrania, not intractable (principal); H54.7 Unspecified visual loss; R41.89 Other symptoms and signs involving cognitive functions and awareness; R46.89 Other symptoms and signs involving appearance and behavior
CPT/HCPCS: 70551; 76377

== ENCOUNTER 2024-03-24 08:59 | Outpatient (AMB) | payer OTHER, SELFPAY ==
--- NOTE | 2024-03-24 09:03 | MHC.OFFVIS ---
Vital Signs 03/24/24 09:11 Height 5 ft 3 in Weight 279 lb 8 oz BMI 49.5 BP 150/80 H Blood Pressure Location Lt radial Position Sitting Pulse 68 Pulse Source Pulse Oximeter Pulse Oximetry (%) 98 Oxygen Delivery Method Room Air Intake Visit Reasons: follow up Amaurosis fugax R eye Intake Note: Patient presents for a 2 mo fu for Amaurosis fugax R eye. Pt reports that she has been having difficulties expressing her thoughts. I may be thinking one thing but what I say is different . She also reports having more frequent headaches. Ship Captain Required: No Accompanied by: Daughter Allergies cefadroxil [From Duricef] Allergy (Verified 03/24/24 09:10) Unknown Penicillins Allergy (Verified 03/24/24 09:10) Unknown HPI Comments Details: 63 year old female with h/o Glaucoma, TIA? / presents for f/u Migraines. She is having 3-4 headaches per week, lasting 3-4 days, pain continues for entire day, starts with sharp, migrating frontal to occipital, pulling sensation, with water in the head sensation and she tilts the head forward, and it dulls the sharp sensation. She takes 50mg of sumatriptan and then 2 hours later takes another 50mg of sumatriptan and then it lessens the intensity, but headache still continues. Prodrome to migraine, she has bilaterally vision loss with or without the onset of headaches, with photophobia/phonophobia, flashes of light, floaters, vertigo and nausea, lasting seconds to minutes. (Aura) Bilateral pain with chewing and drinking, grinds her teeth. Does not have a mouth guard. She still has processing speech issues still with word finding difficulty, forgets her keys, and needs instructions repeatedly for tasks, gets lost. She is concerned due to family h/o dad dementia and mom with alzheimer at 86. Headaches have been present for 10 + years. 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 Her Daughter helps with ADLs, as she had Bowel and Urinary incontinence along with urgency. Pending Parathyroidectomy Consult with [facility], PTH and CA are elevated. [facility] Medical History Transient visual loss Cognitive and behavioral changes Loss of vision Paroxysmal hemicrania Chronic migraine with aura Constipation Insomnia DJD (degenerative joint disease) Hypothyroidism Stress incontinence GERD (gastroesophageal reflux disease) Hyperlipidemia Sleep apnea Asthma Hypertension Surgical History History of rotator cuff surgery Morbid obesity History of bladder suspension procedure Hx of hernia repair History of mandibular surgery Family History Mother Alzheimer disease Pulmonary emphysema Diabetes Asthma Father Diabetes Hypertension Pacemaker Sister Diabetes Sister Diabetes Brother Hypertension Brother No problems noted. Daughter Asthma Social History Alcohol intake: never Advance Directives Date on File: 12/15/19 Physical Exam Const General: cooperative, comfortable and no acute distress Nutritional Appearance: obese (BMI 49.5) Orientation/consciousness: patient oriented x3 HEENT Head: Yes other Ears: other Throat: Yes other ([place] Score of 4) Eyes Pupils: Equal, round and reactive pupils present Neck Neck: Yes other (Limited ROM on EXT/Flexion, pain on Rotation to the R/L.) Resp Effort & Inspection: normal respiratory effort and able to speak in complete sentences Neuro General: patient oriented x3 Cranial nerves: Yes CN's II-XII intact bilaterally, Yes Facial sensation intact/muscles of mastication intact, Yes Equal, round and reactive pupils present, Yes Normal accommodation reflex present, Yes Bilaterally intact EOM present, Yes Nystagmus not present, Yes Normal facial strength present, Yes Midline tongue present, Yes Ability to bilaterally rotate head present (LIMITED ROM L/R and flexion and extension) and Yes Ability to bilaterally elevate shoulders present (Pain on shrug L. shoulder) Cognition (Neuro): normal cognition Gait exam (Neuro): Wide-based gait present Motor exam (neuro): Abnormal motor strength present (3/5) Deep tendon reflexes (DTR's): Right triceps reflex intensity grade: 2+, Left triceps reflex intensity grade: 2+, Rt Biceps (C5, C6): 2+, Left biceps reflex intensity grade: 2+, Right brachioradialis reflex intensity grade: 2+, Left brachioradialis reflex intensity grade: 2+, Right patellar reflex intensity grade: 2+, Left patellar reflex intensity grade: 2+, Right ankle reflex intensity grade: 2+ and Left ankle reflex intensity grade: 2+ Coordination: [id number] test normal Psych Appearance: grossly normal Speech and movement: Normal speech and movement present Affect: normal affect Attitude: cooperative Results Reviewed Results Reviewed: MRI is pending Labs: Reviewed Thyroid normal B12 normal Folate was normal AST / ALT High- BMI - Weight management - BmI 49.5 VIRGIE- >4 8 hours 32 min AHI 1.14 78/90 days 3 month f/u F/u Headaches - - PT - Cervicalgia - Assessment & Plan Assessment & Plan (1) Hx of migraines: Code(s): Z86.69 - Personal history of other diseases of the nervous system and sense organs Category: Medical (2) Cervicalgia: Code(s): M54.2 - Cervicalgia Category: Medical (3) Hypertension: Code(s): I10 - Essential (primary) hypertension Category: Medical Qualifiers: Hypertension type: primary hypertension Qualified Code(s): I10 - Essential (primary) hypertension (4) Cervicalgia: Code(s): M54.2 - Cervicalgia Category: Medical Plan Migraines I will increase the 50mg Sumatriptan to 100mg sumatriptan succinate PO at onset of headache. -take 2 tab of 50mg at onset of headache; if no relief may repeat 2 tab after at least 2 hrs; max = 4 tabs/24 hr. venlafaxine ER for prophylaxis - -(Effexor XR) 37.5 mg PO BEDTIME MRI - r/o reversible causes pending, will f/u with portal message, family h/o of Alzheimers Dementia, she is having word finding and expressive difficulties. Possible TIA in Apr 2023. Glaucoma? PTH is elevated, CA is elevated, she is awaiting School Supervisor surgeon's consultation, for surgical Parathyroidectomy, [facility]. Weight management for good blood pressure control with diet and medical management. She is on Trulicity 1.5mg managed by Dr. Pineda, School Supervisor 3months f/u will do a MME/ MOCA to evaluate STM loss and send for in-lab sleep study after her surgical procedure, she has Asthma. Notes from [facility] Cervicalgia - PT Evaluate and treat, neck pain on ROM limited L/R, and Flexion / Extension. Orders: Orders PT Evaluation and Treatment Today M54.2 - Cervicalgia, Z86.69 - Personal history of other diseases of the nervous system and sense organs Referrals Medical Weight Management Referral E66.01 - Morbid (severe) obesity due to excess calories, I10 - Essential (primary) hypertension Coding Level of Care Code Est Pt Level 4 (91749) Complex EM visit Add On G2211 Diagnoses Hx of migraines Z86.69 Cervicalgia M54.2 Primary hypertension I10 Hypertension type: primary hypertension Time Spent (min) 40 Comment Migraines Worsening
[2024-03-24 09:11] VITALS: BP 150/80; PULSE 68; O2SAT 98; BMI 49.5
== END 2024-03-24 09:58 | disposition home or self-care (01) ==
PROVIDERS: PCP Internal Medicine; Visit Provider Physician Assistant Medical
DX: Z86.69 Personal history of other diseases of the nervous system and sense organs (principal); M54.2 Cervicalgia; I10 Essential (primary) hypertension
CPT/HCPCS: 99214; G2211

== ENCOUNTER → 2024-03-24 08:59 | Outpatient (BNVA) | payer OTHER, SELFPAY | PROVIDERS: PCP Internal Medicine; Visit Provider Physician Assistant Medical | DX: G43.909 Migraine, unspecified, not intractable, without status migrainosus (principal); G45.3 Amaurosis fugax; R41.89 Other symptoms and signs involving cognitive functions and awareness; M54.2 Cervicalgia; I10 Essential (primary) hypertension | CPT/HCPCS: 99212 ==

== ENCOUNTER 2024-04-11 07:56 | Outpatient (AMB) | payer MEDICARE, OTHER, SELFPAY ==
--- OUTSIDE RECORDS SUMMARY | 2024-04-11 07:59 | XMS_ITS | Encounter Summary ---
Author Organization [facility] Address [address] [place] [address] Care Team Providers Care Sanitary Engineer Name Role Phone Ora Sweeney MD Primary Care Prov ider Reason for Visit * Reason Comments DM Foot Care Encounter Details Date Type Department Care Team (Late st Contact Info) Description 04/03/2024 9:45 AM EST Office Visit Orthopedic Surgery - [place] [address] [phone] Duke Dunn, DPJohan [address] [address] Controlled type 2 diabetes with neuropathy (CMS/HCC) (Primary Dx); PVD (peripheral vascular disease) (CMS/HCC); Pain in both feet; Difficulty walking; Dermatophytosis, nail Social History Tobacco Use Types Packs/Day Years Used Date Smoking Tobacco: Never Smokeless Tobacco: Never Alcohol Use Standard Drinks/Week Comments No 0 (1 standard drink = 0.6 oz pur e alcohol) Housing Instability Answer Date Recorde d Are you worried that in the next 2 months you may not have stable housing? No 01/24/2024 Food Access & Nutrition Answer Date Rec orded Do you have access to a vari ety of food including fruits and vegetables? No 01/24/2024 Access to Healthcare Answer Date Record ed Within the last 3 months, ho w many times did you visit the emergency department for your medical care? 0 01/24/2024 Health Literacy Answer Date Recorded How often do you need to hav e someone help you when you read instructions, pamphlets, or other written material from your doctor or pharmacy? Sometimes 01/24/2024 Caregiver: How often do you need to have someone help you when you read instructions, pamphlets, or other written material from your doctor or pharmacy? Not on file 01/24/2024 Financial Risk Answer Date Recorded How hard is it for you to pa y for the very basics like food, housing, medical care, and air conditioning / heating? Not very hard 01/24/2024 Transportation Answer Date Recorded Has the lack of transportati on kept you from meetings, work, or from getting things needed for daily living? No Has the lack of transportati on kept you from medical appointments or from getting medications? No 01/24/2024 Social Isolation Answer Date Recorded How often do you feel lonely or isolated from th ose around you? Never 01/24/2024 Food Risk Answer Date Recorded Within the past 12 months we worried whether our food would run out before we got money to buy more. Never true 01/24/2024 Within the past 12 months th e food we bought just didn't last and we didn't have money to get more. Never true 01/24/2024 Dependent Care Answer Date Recorded Do you need help finding or paying for care for your loved ones. For example, child support investigator or elderly care for an older adult? No 01/24/2024 Employment and Income Answer Date Recor ded During the last four weeks, have you been actively looking for work? No 01/24/2024 Living Situation Answer Date Recorded What is your living situation? 1 03/25/2023 Sex and Gender Information Value Date Recorded Sex Assigned at Not on file Gender Identity Not on file Sexual Orientation Not on file Job Start Date Occupation Industry Not on file Not on file Not on file documented as of this encounter Last Filed Vital Signs Vital Sign Reading Time Taken Comments Blood Pressure - - Pulse - - Temperature - - Respiratory Rate - - Oxygen Saturation - - Inhaled Oxygen Concentration - - Weight 126 kg (278 lb) 04/03/2024 9:48 AM EST Height - - Body Mass Index 49.26 03/26/2024 9:59 AM EST documented in this encounter Progress Notes * Duke Dunn DPM - 04/03/2024 9:45 AM EST Referring MD: Iza Last PCP visit: 01/24/2024 IDENTIFIER: @TITLE@ Harsh is a 63 y.o. year old female who presents for consultation. CC: Bilateral foot pain HPI: 63-year-old diabetic female returns office chief complaint of tingling numbness in her feet bilaterally. Patient is wearing supportive shoe during today's visit. Patient is having trouble with her nail growth to the bilateral feet as there is thickness and misshapened nail plates that are digging into adjacent digits. Patient is here for evaluation treatment A1c 7.4% FBS 127 mg/dL ROS: GENERAL: Pt denies nausea, fever, vomiting, chills, or shortness of breath. Pt in NAD. CARDIOLOGY: pt denies chest pain, palpitations LUNGS: pt denies shortness of breath MUSCULOSKELETAL: See HPI, otherwise no joint pain or swelling, back pain, or muscle pain. SKIN: see HPI, otherwise no lesions, rash or itching NEURO: No persistent headache, weakness or numbness The remainder of the review of systems is noncontributory PAST MEDICAL HISTORY: Patient Active Problem List Diagnosis Anxiety and depression Asthma, moderate persistent Asthma-chronic obstructive pulmonary disease overlap syndrome (CMS/HCC) Cervical radiculopathy Chest pain Colon polyps CTS (carpal tunnel syndrome) Diabetes mellitus (CMS/HCC) Diabetes mellitus type 2, controlled, without complications (CMS/HCC) Gastroesophageal reflux disease without esophagitis HLD (hyperlipidemia) Hyperparathyroidism (CMS/HCC) Hypertension Hypothyroid Knee pain Migraines Mild concentric left ventricular hypertrophy Multiple thyroid nodules Fatty liver Nonalcoholic fatty liver disease Obstructive sleep apnea Osteoarthritis Palpitations Pilar cyst Pulmonary eosinophilia (CMS/HCC) Seasonal allergic conjunctivitis Seasonal allergies Urge incontinence Vitamin D deficiency Rotator cuff tear arthropathy of left shoulder S/P left rotator cuff repair SOCIAL HISTORY: Social History Tobacco Use Smoking status: Never Smokeless tobacco: Never Substance Use Topics Alcohol use: No ACTIVE MEDICATIONS: No outpatient medications have been marked as taking for the 04/03/24 encounter (Office Visit) with Duke Dunn DPM. ALLERGIES: @ALL@ PHYSICAL EXAM: Weight 126 kg (278 lb). PODIATRIC EXAMINATION: GENERAL: Patient appears well nourished, with NAD. VASCULAR: Dorsalis pedis pulses are 2/4 bilaterally and Posterior tibial pulses are 0/4 bilaterally. Capillary filling time within normal limits the digits. No pallor on elevation or rubor on dependency. No hair growth. Many varicosities. +2 pitting edema bilateral foot. Denies rest pain or claudication pain. NEUROLOGICAL: Sharp/dull sensation intact, protective sensation intact on [place]. Multiple peripheral neuropathies bilateral lower extremity ORTHOPEDIC: Good muscle strength 5/5 of all flexors and extensors. Dorsi flexion of ankle ,10 degrees, plantar flexion WNL. No muscle atrophy. Continued but decreased pain on palpation of the midfootwith notable palpable dorsal exostoses left worse than right. No longer having pain with the dorsalmidfoot of the left foot. Severe flatfoot with greater than 7 degrees eversion of the hindfoot on re laxed calcaneal stance position. Continued pain at the distal tuft of the left second digit. Continued pain on the medial border of the left great toe. DERMATOLOGICAL:.Decreasing scaliness to the bottoms of the feet bilaterally. Nails are elongated dystrophic discolored x 10 with subungual debris. Return of callus formation to the plantar lateral aspect of the left fifth digit BIOMECHANICS: STJ ROM wnl, MTJ ROM wnl, 1st MPJ ROM wnl. IMPRESSION: 1. Controlled type 2 diabetes with neuropathy (CMS/HCC) 2. PVD (peripheral vascular disease) (CMS/HCC) 3. Pain in both feet 4. Difficulty walking 5. Dermatophytosis, nail PLAN: Pt was seen and examined, history reviewed. Patient was educated on the importance of keeping her sugar well-controlled in order to limit chance for nonhealing wounds in the future Patient continues to have swelling within the legs bilaterally. Patient educated on importance of using compression stockings daily to decrease the swelling and downstream effects of fluid overload for long periods of time Patient understands that the neuropathic symptoms she is experiencing can be controlled with analgesics such as Biofreeze but will not resolve the underlying issue associated with peripheral neuropathy Nail debridement performed to nails 1-5 bilateral as nails were described to be causing pain and difficulty for walking while in shoegear at their previous length. They were debrided in thickness andlength, with no incident. Clinical evidence of mycosis is documented which required active treatment. Patient expressed immediate relief. Patient is to RTC in 9 weeks Patient was educated on the importance of using the cane for ambulatory purposes in order to limit chances for falls tripping. Duke Dunn DPM documented in this encounter Plan of Treatment Upcoming Encounters Date Type Department Care Team (Late st Contact Info) Description 04/11/2024 9:45 AM EST Office Visit Endocrinology [address] [phone] Jayesh Pineda MD [address] [place] [address] 05/28/2024 9:45 AM EDT Office Visit [facility] - [address] [phone] Ora Sweeney MD [address] [place] [address] 06/04/2024 10:30 AM EDT Consult Bariatric Surgery [facility] [address] [phone] Lita Verde PA [address] [address] 06/04/2024 11:45 AM EDT Office Visit Orthopedic Surgery [facility] [address] [phone] Luis Armando Eller MD [address] [address] 06/05/2024 9:45 AM EDT Office Visit Orthopedic Surgery [facility] 250 175 [facility] [address] [place] [phone] Duke Dunn DPM [address] [address] 06/06/2024 2:30 PM EDT Office Visit Obstetrics and Gynecology - [place] [address] [place] [phone] Stacie Martinez, [facility] [address] [place] [address] 06/30/2024 10:30 AM EDT Office Visit Orthopedic Surgery [facility] 160 175 [facility] 160 [place] [phone] Luis Armando Eller MD 175 [facility] 160 [place] [address] 07/02/2024 9:30 AM EDT Office Visit Orthopedic Surgery - [place] 250 175 [facility] [address] [place] [phone] Lorie Moore NP [address] [address] 09/22/2024 8:45 AM EDT Office Visit Pulmonolgy - [place] 175 [facility] 200 [place] [phone] Pretty Le MD 175 [facility] [address] [place] [address] documented as of this encounter Visit Diagnoses Diagnosis Controlled type 2 diabetes with neuropathy ([facility])- Primary Type II or unspecified type diabetes mellitus with neurological manifestations, not stated as uncontrolled PVD (peripheral vascular disease) ([facility]) Unspecified peripheral vascular disease Pain in both feet Difficulty walking Difficulty in walking Dermatophytosis, nail Dermatophytosis of nail documented in this encounter Care Teams Sanitary Engineer Relationship Specialty Start Date End Date Ora Sweeney MD [address] [place] [id number] PCP - General Internal Medicine 01/09/24 documented as of this encounter
--- OUTSIDE RECORDS SUMMARY | 2024-04-11 07:59 | XMS_ITS | Clinical Summary ---
Author Organization [facility] Address [address] [place] [address] Care Team Providers Care Second Time Worker Name Role Phone Ora Sweeney MD Primary Care Prov ider Allergies Active Allergy Reactions Criticality Noted Date Comments Animal Dander Sneezing 01/16/2024 Bee Pollen 05/03/2023 Other reaction(s): Not available Cat's Claw Runny nose 12/20/2016 Cefadroxil Swelling,Shortnes s of breath High 07/02/2012 Other Reaction(s): difficulty breathing/facial swelling Chocolate 01/06/2014 Sneezing and allergies Other Reaction(s): snezzing/runny nose Chocolate Flavor 05/03/2023 Other reaction(s): Not available Dog Dander 04/10/2016 House Dust Mite 04/10/2016 Latex Hives 06/14/2020 Levonorgestrel-Ethinyl Estrad 05/03/2023 Other reaction(s): Not available Methylprednisolone Swelling,Shortnes s of breath High 07/02/2012 Other Reaction(s): edema Mold 04/10/2016 Nut - Unspecified Swelling 03/18/2013 Almunds Other Itching,Rash,Swel ling High 10/30/2016 roaches Other Reaction(s): MSG edema Oxycodone 07/11/2017 Mood change Penicillins Swelling,Shortnes s of breath High 07/02/2012 Other Reaction(s): throat swelling/facial swelling Rabbit Epithelium Allergenic Extract 04/10/2016 rabbits Medications Medication Sig Dispensed Refills Start Date End Date Status acetaminophen (TYLENOL 8 HOUR) 650 mg 8 hr tablet Take 1 Tablet by mouth 3 times daily as needed for Pain (mild pain). 03/06/2023 Active albuterol 2.5 mg /3 mL (0.083 %) nebulizer solution Take 1 Vial by nebulization 3 times daily for 180 days. 06/10/2020 Active albuterol HFA (PROAIR HFA ; PROVENTIL HFA ; VENTOLIN HFA) 90 mcg/actuation inhaler Inhale 2 Puffs into the lungs every 6 hours as needed for Cough, Wheezing or Shortness of Breath for up to 363 days. 09/19/2023 Active albuterol HFA (Ventolin HFA) 90 mcg/actuation inhaler Inhale 2 Puffs into the lungs every 6 hours as needed for Cough or Wheezing. 08/28/2023 Active ammonium lactate (LAC-HYDRIN) 12 % lotion Apply to soles of feet daily. At night wear socks to bed 11/14/2023 Active betamethasone, augmented, (DIPROLENE-AF) 0.05 % cream APPLY TO AFFECTED AREAS IN THIN LAYER TWICE A DAY UNTIL RESOLVED. 05/09/2023 Active azelastine HCl (ASTELIN NASL) 2 Sprays by Nasal route 2 times daily. Active blood-glucose meter [facility] Use to test blood sugars once daily in the morning, before breakfast. 03/03/2021 Active cloNIDine (CATAPRES) 0.1 mg tablet TAKE 1/2-1 TABLET BY MOUTH TWICE A DAY NEEDED FOR ANXIETY- NEEDED AND TOLERATED 11/03/2022 Active EPINEPHrine (EpiPen 2-Nehemiah) 0.3 mg/0.3 mL injection Inject 1 Device as directed as needed (anaphylaxis). Use as directed 07/12/2022 Active fexofenadine (CRISTINA) 180 mg tablet Take 1 tablet by mouth daily. 11/16/2020 Active fluticasone-umec lidinium-vilante rol (Trelegy Ellipta) 100-62.5-25 mcg inhaler Inhale 1 Puff into the lungs daily for 363 days. 09/19/2023 Active UNABLE TO FIND Inhale into the lungs. [employer]-supplies only Active FREESTYLE LANCETS [facility] Use to test blood sugars once daily in the morning, before breakfast. 07/04/2022 Active blood sugar diagnostic (FreeStyle Lite Strips) test strip Use to test blood sugars once daily in the morning, before breakfast. 11/27/2022 Active ketoconazole (NIZORAL) 2 % cream Apply 1 Dose topically 2 times daily for 30 days. 07/23/2023 Active ketotifen (ZADITOR) 0.025 % ophthalmic solution ketotifen 0.025 % (0.035 %) eye drops Active lidocaine (LIDODERM) 5 % patch Place 1 Patch onto the skin every 24 hours for 28 days. Apply for no more than 12 hours in any 24 hour period. B02.29 10/11/2021 Active montelukast (SINGULAIR) 10 mg tablet Take 1 Tablet by mouth at bedtime. 09/26/2023 Active onabotulinumtoxi nA (Botox) 200 unit injection Active senna (SENOKOT) 8.6 mg tablet Take 1 Tablet by mouth at bedtime. 10/17/2023 Active sertraline (ZOLOFT) 100 mg tablet TAKE 1 TABLET BY MOUTH EVERY DAY IN THE MORNING 08/13/2022 Active SUMAtriptan (IMITREX) 50 mg tablet TAKE 1 TO 2 TABLETS FOR MIGRAINE SYMPTOMS AND MAY REPEAT ONCE 2 HOURS LATER IF NEEDED 12/22/2021 Active tezepelumab-ekko (Tezspire) 210 mg/1.91 mL (110 mg/mL) injection Inject 210 mg into the skin every 30 days. Active traZODone (DESYREL) 100 mg tablet TAKE 1 TABLET EVERY NIGHT AT BEDTIME NEEDED CAN TAKE 1/2 TO ONE TABLET AT NIGHT TO HELP SLEEP 08/31/2023 Active Trulicity 1.5 mg/0.5 mL pen injector injection Inject 0.5 mL (1.5 mg total) under the skin. 01/10/2024 Active docusate sodium (COLACE) 100 mg capsule Take 1 capsule (100 mg total) by mouth 2 (two) times a day. 01/01/2024 Active cholecalciferol (VITAMIN D-3) 125 mcg (5,000 unit) capsule Take 1 capsule (5,000 Units total) by mouth 1 (one) time each day. 01/01/2024 Active triamcinolone (NASACORT) 55 mcg nasal inhaler INSTILL 1 TO 2 SPRAYS INTO EACH NOSTRIL ONCE DAILY. 11/19/2023 Active Stool Softener-Laxativ e 8.6-50 mg per tablet 12/06/2023 Active aspirin 325 mg tablet Take 1 tablet (325 mg total) by mouth 1 (one) time each day. Active ibuprofen (ADVIL,MOTRIN) 800 mg tablet 12/06/2023 Active Nucala 100 mg/mL auto-injector 07/25/2023 Active famotidine (PEPCID) 20 mg tablet Take 1 tablet (20 mg total) by mouth 2 (two) times a day if needed for heartburn. 90 tablet 1 01/23/2024 Active atorvastatin (LIPITOR) 20 mg tablet TAKE 1 TABLET BY MOUTH EVERY DAY 90 tablet 1 01/31/2024 Active venlafaxine XR (EFFEXOR-XR) 37.5 mg 24 hr capsule 01/21/2024 Active amLODIPine (NORVASC) 10 mg tablet TAKE 1 TABLET BY MOUTH EVERY DAY 90 tablet 1 02/13/2024 Active levothyroxine (SYNTHROID, LEVOTHROID) 137 mcg tabletIndication s:Atrophy of thyroid (acquired) TAKE 1 TABLET BY MOUTH EVERY DAY 45 tablet 1 02/14/2024 Active losartan (COZAAR) 100 mg tablet TAKE 1 TABLET BY MOUTH EVERY DAY 90 tablet 03/14/2024 Active losartan (COZAAR) 100 mg tablet Take 1 Tablet by mouth daily. 09/20/2023 Discontinued Active Problems Problem Noted Date Diagnosed Date S/P left rotator cuff repair 03/06/2024 Rotator cuff tear arthropathy of left shoulder 1 03/15/2023 CTS (carpal tunnel syndrome) 12/16/2023 Overview (12/16/2023): Last Assessment & Plan: Patient is 2 months s/p left carpal tunnel release, 4.5 months s/p right carpal tunnel release. She came in for wound check of the left incision, has not had any fevers, sweats chills, wound drainage. She has been applying Aquaphor to the wound for dry skin. She has 3 small areas of thickened skin/callus over individual stitches, but does not appear to be infected or have abscess. She is not experiencing any numbness tingling or pain in the wrist or hand. She states she is left- handed and uses that hand more than she did for the right incision, which did not have any issues postop. I reviewed her case with Dr. Boudreaux. I asked patient to try to avoid letting things rub on the incision area, if possible use the right hand a bit more to give the left hand incision a break. She will call if she has any concerns with the incision, with time that should continue to heal. All questions answered. Hypertension 12/16/2023 Overview (12/16/2023): Last Assessment & Plan: The patient has a history of arterial hypertension. The patient's blood pressure today was noted to be well controlled. We'll continue the current antihypertensive medication regimen. Assessment & Plan (01/24/2024 2:02 PM EST): The patient's antihypertensive regimen is based on their underlying medical issues. At the time of this visit, the blood pressure is well controlled on losartan, amlodipine. The patient is instructed to follow a low sodium diet and to follow up in 3 months. Orders: Microalbumin creatinine urine ratio; Future Comprehensive metabolic panel; Future Hemoglobin A1c; Future Lipid panel with reflex to direct LDL; Future Hypothyroid 12/16/2023 Assessment & Plan (01/24/2024 2:02 PM EST): Currently on levothyroxine 125 mcg a day. Last TSH was within normal limits. Stable over the last year. Continue same medication. Migraines 12/16/2023 Multiple thyroid nodules 12/16/2023 Fatty liver 12/16/2023 Osteoarthritis 12/16/2023 Cervical radiculopathy 04/10/2022 Overview (12/16/2023): Last Assessment & Plan: Patient follows up today, describes persistent right sided neck pain to the upper trapezius and shoulder, down the anterior arm, pain and numbness tingling in the right hand and second and third digits >first digit. On her cervical MRI she had multilevel degenerative changes including C5-6 spondylosis with right foraminal narrowing, has been going to physical therapy for about a month, they tried traction the first session but did not try it again, she does not recall what making her symptoms worse. She had right shoulder x-ray March 2022 without any abnormalities noted. She state s years ago she was told she has carpal tunnel syndrome bilaterally, states she had an EMG test years ago. She notes pain if she tries to turn her head to the right or sleep on her right side. She rates her neck pain 5-10/10. She states she spends the day constantly rubbing her right hand, in particular second and third digits. She wears wrist splints at night and feels they help her. Ms. House notes persistent neck and arm pain, numbness tingling into the right >>left hand. I like to get updated EMG/NCS studies to see if she has carpal tunnel syndrome contributing to her current right UE symptoms. I will review her cervical MRI and EMG with Dr. Boudreaux, see if she recommends any surgical intervention. In the meantime patient will continue with PT, asked them to try gentle traction at her next few sessions if it does not bother her. All questions answered. We reviewed her MRI images again on today's visit. She will call with any concerns or questions. Asthma-chronic obstructive p ulmonary disease overlap syndrome 01/30/2022 Diabetes mellitus 01/30/2022 Seasonal allergic conjunctivitis 01/30/2022 Palpitations 11/25/2021 Overview (12/16/2023): Last Assessment & Plan: The patient has been experiencing episodes of palpitations. We will order a Holter monitor to evaluate for any underlying arrhythmias as a cause of her symptoms. Chest pain 11/21/2021 Overview (12/16/2023): Last Assessment & Plan: The patient came for evaluation due to episodes of chest pain. The patient has the following risk factors for coronary artery disease: Obesity, hypertension, hyperlipidemia, diabetes. Given the patient's age, gender, description of the symptoms, and risk factors for CAD, the patient has an intermediate risk for coronary artery disease. As such, will order a stress test for evaluation of the patient's chest pain. The patient has a history of osteoarthritis and walks with a walker. As such, we will order a pharmacological nuclear stress test. HLD (hyperlipidemia) 11/21/2021 Assessment & Plan (01/24/2024 2:02 PM EST): Given the patients cardiac risk profile, the patient requires an LDL cholesterol of less than 70. Continue atorvastatin 20 mg a day. I have instructed the patient on the principles of a low cholesterol diet and the importance of regular exercise. Orders: Microalbumin creatinine urine ratio; Future Comprehensive metabolic panel; Future Hemoglobin A1c; Future Lipid panel with reflex to direct LDL; Future Mild concentric left ventricular hypertrophy Overview (12/16/2023): Seen on echo study from 08/2021 Pulmonary eosinophilia 07/14/2021 Hyperparathyroidism 03/09/2021 Diabetes mellitus type 2, controlled, without co mplications 02/16/2021 Assessment & Plan (01/24/2024 2:02 PM EST): Good control of diabetes. Patient will continue with yearly Podiatric and Ophthomologic evaluations.Will continue Angiotensin Converting Enzyme Inhibitor for renal protection. Continue metformin. We will check a hemoglobin A1c, before her next visit. Patient will follow up in 4 months Orders: Microalbumin creatinine urine ratio; Future Comprehensive metabolic panel; Future Hemoglobin A1c; Future Lipid panel with reflex to direct LDL; Future Anxiety and depression 06/14/2020 Overview (12/16/2023): [facility] psychiatry Asthma, moderate persistent 05/10/2020 Overview (12/16/2023): Last Assessment & Plan: Patient with moderately severe asthma excellent control with Nucala Continue with Nucala, albuterol as needed and Singulair. Return to clinic in 1 year Vitamin D deficiency 04/17/2019 Knee pain 01/20/2018 Obstructive sleep apnea 03/06/2017 Overview (12/16/2023): TREATED (JUN 2020) Last Assessment & Plan: Patient with 100% compliance of her CPAP Apneas are well suppressed and ESS score is less than 10 Patient meets DME requirements Supply letter has been sent to [facility] Return to clinic in 1 year Pilar cyst 09/07/2016 Colon polyps 02/06/2016 Overview (12/16/2023): 01/31/16 - single small tubular adenoma, strong family hx-rpt colonoscopy in 3 yrs Gastroesophageal reflux disease without esophagi tis 08/30/2015 Nonalcoholic fatty liver disease 04/12/2015 Seasonal allergies 08/18/2013 Overview (12/16/2023): Last Assessment & Plan: Currently due to her postnasal drip, I advised her to continue using the Flovent and I will renew the Singulair as well as the antihistamine. Urge incontinence 08/23/2012 Encounters Date Type Department Care Team Description 04/03/2024 9:45 AM EST Office Visit Orthopedic Surgery [facility] [address] [facility] [address] [place] [phone] Duke Dunn, ASTERM Controlled type 2 diabetes with neuropathy (CMS/HCC) (Primary Dx); PVD (peripheral vascular disease) (CMS/HCC); Pain in both feet; Difficulty walking; Dermatophytosis, nail 03/27/2024 10:00 AM EST Treatment [facility] [address] [phone] Chema Martins, OT Rotator cuff tear arthropathy of left shoulder (Primary Dx) 03/26/2024 9:45 AM EST Office Visit Orthopedic [facility] [address] [facility] [address] [place] [address] Luis Armando Eller MD S/P left rotator cuff repair (Primary Dx) 03/25/2024 9:00 AM EST Treatment [facility] [address] [phone] Lisa Jones COTA 03/20/2024 11:00 AM EST Treatment [facility] [address] [phone] Chema Martins, OT Rotator cuff tear arthropathy of left shoulder (Primary Dx) 03/18/2024 1:00 PM EST Treatment [facility] [address] [phone] Lisa Jones COTA 03/13/2024 9:30 AM EST Treatment [facility] [address] [phone] Morris Melo COTA/L Rotator cuff tear arthropathy of left shoulder (Primary Dx) 03/11/2024 9:30 AM EST Treatment [facility] [address] [phone] Lisa Jones COTA Rotator cuff tear arthropathy of left shoulder (Primary Dx) 03/06/2024 9:30 AM EST Treatment [facility] [address] [phone] Lisa Jones COTA Rotator cuff tear arthropathy of left shoulder (Primary Dx); S/P left rotator cuff repair 03/04/2024 8:45 AM EST Treatment [facility] [address] [phone] Lisa Jones COTA 02/28/2024 9:00 AM EST Treatment [facility] [address] [phone] Chema Martins, OT Rotator cuff tear arthropathy of left shoulder (Primary Dx) 02/27/2024 9:30 AM EST Office Visit Orthopedic Surgery - [place] [address] [facility] [address] [place] [address] Genny Arreguin PA Post-operative state (Primary Dx); S/P left rotator cuff repair 02/20/2024 9:45 AM EST Treatment [facility] [address] [phone] Morris Melo COTA/Raul Rotator cuff tear arthropathy of left shoulder (Primary Dx) 02/14/2024 9:30 AM EST Treatment [facility] [address] [phone] Chema Martins, OT Rotator cuff tear arthropathy of left shoulder (Primary Dx) 02/12/2024 9:30 AM EST Treatment [facility] [address] [phone] Lisa Jones COTA 02/05/2024 9:30 AM EST Treatment [facility] [address] [phone] Chema Martins, OT S/P left rotator cuff repair (Primary Dx) 01/31/2024 10:30 AM EST Office Visit [facility]opedic [place] [address] [address] [phone] Lorie Moore NP Primary osteoarthritis of left knee (Primary Dx) 01/31/2024 9:45 AM EST Office Visit [place] [address] [phone] Duke Dunn DPM Controlled type 2 diabetes with neuropathy (CMS/HCC) (Primary Dx); Pain in both feet; PVD (peripheral vascular disease) (CMS/HCC); Difficulty walking; Dermatophytosis, nail 01/31/2024 8:45 AM EST Treatment [facility] [address] [phone] Chema Martins, OT S/P left rotator cuff repair (Primary Dx); Rotator cuff tear arthropathy of left shoulder 01/24/2024 1:15 PM EST Office Visit [address] [phone] Ora Sweeney MD Controlled type 2 diabetes mellitus without complication, without long-term current use of insulin (CMS/HCC) (Primary Dx); Primary hypertension; Mixed hyperlipidemia; Hypothyroidism, unspecified type 01/24/2024 10:00 AM EST Office Visit [place] [address] [phone] Lorie Moore NP Primary osteoarthritis of left knee (Primary Dx) 01/21/2024 8:45 AM EST Treatment [facility] [address] [phone] Chema Martins, OT Rotator cuff tear arthropathy of left shoulder (Primary Dx) 01/17/2024 9:45 AM EST Treatment [facility] [address] [phone] Lisa Jones COTA S/P left rotator cuff repair 01/16/2024 3:00 PM EST Office Visit Orthopedic Surgery - [place] [address] [facility] [address] [place] [phone] Lorie Moore NP Primary osteoarthritis of left knee (Primary Dx) 01/14/2024 9:45 AM EST Treatment [facility] [address] [phone] Chema Martins, OT Rotator cuff tear arthropathy of left shoulder (Primary Dx) from Last 3 Months Immunizations Name Administration Dates Next Due Influenza Quadravalent, MDCK , 0.5ml, preservative free (Flucelvax) 6mo and older 01/18/2018 Influenza Quadravalent, MDCK , 0.5ml, with preservative (Flucelvax) 6mo and older 12/20/2016 Influenza trivalent, with pr eservative (Fluzone; Afluria) 6mo and older 12/13/2015 Influenza, Unspecified 12/29/2022 Pfizer (ages 12 & older) Bivalent, COVID-19 12/11 Pfizer SARS-CoV-2 COVID-19, mRNA, LNP-S, preservative free 09/21/2020,08/31/2020 Pneumococcal polysaccharide 23 valent (Pneumovax 23) 2yo and older 01/15/2023,07/19/2017 Tdap Tetanus diptheria acell ular pertussis (Boostrix; Adacel) 7yo and older 10/31/2022,08/13/2012 Surgical History Surgery Date Site/Laterality Comments KNEE ARTHROSCOPY Right PROCEDURE: NE ARTHROSCOPY KNEE DIAGNOSTIC W/WO SYNOVIAL BX SPX WISDOM TOOTH EXTRACTION PROCEDURE: HISTORICAL WISDOM TEETH EXTRACTION TONSILLECTOMY PROCEDURE: HISTORICAL TONSILLECTOMY; COMMENT: and adenoids SECTION PROCEDURE: HISTORICAL DELIVERY OTHER SURGICAL HISTORY PROCEDURE: NE BIOPSY THYROID PERCUTANEOUS CORE NEEDLE COLONOSCOPY 12/10/2012 PROCEDURE: HISTORICAL COLONOSCOPY; COMMENT: normal; repeat in 3 yrs. sig. hyperplastic polyp OTHER SURGICAL HISTORY PROCEDURE: CYSTOSCOPY/SURG, URETHRA/BLAD NECK; COMMENT: sling procedure for stress incontinence OTHER SURGICAL HISTORY 08/25/2015 Right PROCEDURE: NE EXCISION NAIL MATRIX PERMANENT REMOVAL; COMMENT: right hallux Dr. Rangel COLONOSCOPY 01/31/2016 PROCEDURE: HISTORICAL COLONOSCOPY; COMMENT: 3 small polyps removed- dist.asc =tubular adenoma x 1; other nl tissue. COLONOSCOPY 09/29/2019 PROCEDURE: HISTORICAL COLONOSCOPY; COMMENT: 5 mm ascending colon polyp: Tubular adenoma. UPPER GASTROINTESTINAL ENDOSCOPY 09/29/2019 PROCEDURE: NE UPPER GI ENDOSCOPY PERFORMED; COMMENT: Visually normal on PPI treatment. ESOPHAGOGASTRODUODENOSCOPY 09/22/2021 PROCEDURE: NE EGD TRANSORAL BIOPSY SINGLE/MULTIPLE; COMMENT: EGD including biopsy normal OTHER SURGICAL HISTORY PROCEDURE: HISTORY OTHER; COMMENT: Maxillofacial surgery EXCISION BENIGN SKIN LESION TRUNK / ARM / LEG PROCEDURE: NE EXCISION TUMOR SOFT TISSUE BACK/FLANK SUBQ <3CM; COMMENT: Lipomas removed HERNIA REPAIR PROCEDURE: HISTORICAL HERNIA REPAIR/ING CARPAL TUNNEL RELEASE 07/24/2022 Right PROCEDURE: HISTORICAL CARPAL TUNNEL REL; COMMENT: Dr. Boudreaux CARPAL TUNNEL RELEASE 10/17/2022 PROCEDURE: HISTORICAL CARPAL TUNNEL REL; COMMENT: left CTR, Dr. Boudreaux ROTATOR CUFF REPAIR 12/06/2023 Left PROCEDURE: HISTORICAL ROTATOR CUFF REPAIR; COMMENT: Left shoulder arthroscopic rotator cuff repair. Subacromial decompression. Labral debridement. Medical History Medical History Date Comments Hypertension DX:Hypertension Hypothyroid DX:Hypothyroid; COMMENT: his multinodular goiter, 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 Stress incontinence DX:Stress in continence Migraines DX:Migraines Osteoarthritis DX:Osteoarthriti s Sleep apnea DX:Sleep apnea; COMMENT: using cpap machine Family history of colon cancer D X:Family history of colon cancer; COMMENT: mother has colon cancer and ovarian cancer-- seen genetics Multiple thyroid nodules DX:Mult iple thyroid nodules Seasonal allergies 08/18/2013 DX:Seasonal a llergies CTS (carpal tunnel syndrome) DX: CTS (carpal tunnel syndrome) Abdominal pain, RUQ 12/28/2014 DX:Abdominal pain, RUQ Abnormal finding on imaging 12/28/2014 DX:A bnormal finding on imaging Nonalcoholic fatty liver disease 04/12/2015 DX:Nonalcoholic fatty liver disease Gastroesophageal reflux dise ase without esophagitis 08/30/2015 DX:Gastroesophageal reflux d isease without esophagitis Pre-diabetes 09/25/2017 DX:Pre-diabetes 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 Vitamin D deficiency 04/17/2019 DX:Vitamin D deficiency Covid-19 DX:COVID-19 Class 3 severe obesity due t o excess calories with serious comorbidity and body mass index (BMI) of 40.0 to 44.9 in adult (CMS/HCC) 07/15/2019 DX:Class 3 severe obesity du e to excess calories with serious comorbidity and body mass index (BMI) of 40.0 to 44.9 in adult ([facility]) Diabetes mellitus type 2, co ntrolled, without complications ([facility]) 02/16/2021 DX:Diabetes mellitus t ype 2, controlled, without complications ([facility]) Mild concentric left ventric ular hypertrophy 08/23/2021 DX:Mild concentric left vent ricular hypertrophy; COMMENT: Seen on echo study from 08/2021 Fatty liver DX:Fatty liver Anxiety state DX:Anxiety state Asthma DX:Asthma Depressive disorder DX:Depressiv e disorder Asthma, moderate persistent 05/10/2020 DX:A sthma, moderate persistent Pain and swelling of left up per extremity 11/21/2021 DX:Pain and swelling of left upper extremity Shingles DX:Shingles Diabetes mellitus ([facility]) DX:D iabetes mellitus ([facility]) HLD (hyperlipidemia) 11/21/2021 DX:HLD (hyp erlipidemia) VIRGIE on CPAP DX:VIRGIE on CPAP Depression DX:Depression Overactive bladder DX:Overactive bladder Obesity with alveolar hypove ntilation (CMS/HCC) DX:Obesity with alveolar hypoventilation (HCC) Morbid obesity with BMI of 4 0.0-44.9, adult ([facility]/HCC) DX:Morbid obesity with BMI o f 40.0-44.9, adult ([facility]) Asthma-chronic obstructive p ulmonary disease overlap syndrome ([facility]/HCC) 01/30/2022 DX:Asthma-chronic o bstructive pulmonary disease overlap syndrome (HCC) Family History Medical History Relation Name Comments Breast cancer Aunt 1 maternal x 1 Ovarian cancer Aunt 2 maternal x 6 6 maternal au nts also with ov, uterine ca Glaucoma Brother x 2 Coronary artery disease Father CT a ge 68, HTN, Diabetes, cataract, glaucoma Emphysema Maternal Grandfather Ovarian cancer Maternal Grandmother uteri ne cancer same age Colon cancer Mother Diabetes Mother with neuropathy , OA, Ovarian cancer Mother Uterine cancer Mother Lymphoma Mother's side 1 1st cousin Lung cancer Mother's side 2 1st cousin Lung cancer Paternal Grandfather Colon polyps Sister x 2 glaucoma, diabe luciano Relation Name Status Comments Aunt 1 maternal x 1 Aunt 2 maternal x 6 Brother x 2 Alive Father Alive Maternal Grandfather Maternal Grandmother Mother Alive Mother's side 1 1st cousin Alive Mother's side 2 1st cousin Paternal Grandfather Paternal Grandmother Sister x 2 Alive Social History Tobacco Use Types Packs/Day Years Used Date Smoking Tobacco: Never Smokeless Tobacco: Never Tobacco Cessation:Counseling Given: Not Answered Alcohol Use Standard Drinks/Week Comments No 0 [...] do you feel lonely or isolated from ose around you? Never 01/24/2024 Food Risk [...] care for your loved ones. For example, childhood teacher or elderly care for an older adult? [...] file Not on file Not on file Obstetrics History Last Filed Vital Signs Vital Sign Reading Time Taken Comments Blood Pressure 153/69 01/24/2024 1:17 PM EST Pulse 67 01/24/2024 1:17 PM EST Temperature 36.3 ??C (97.3 ??F) 01/24/2024 1:17 PM ES T Respiratory Rate 14 01/24/2024 1:17 PM EST Oxygen Saturation - - Inhaled Oxygen Concentration - - Weight 126 kg (278 lb) 04/03/2024 9:48 AM EST Height 160 cm (5' 2.99 ) 03/26/2024 9:59 AM EST Body Mass Index 49.26 03/26/2024 9:59 AM EST Plan of Treatment Upcoming Encounters Date Type Department Care Team (Late st Contact Info) Description 04/11/2024 9:45 AM EST Office Visit Endocrinology [address] [phone] Jayesh Pineda MD [address] [place] [phone] 05/28/2024 9:45 AM EDT Office Visit Adult Medicine [facility] - [address] [phone] Ora Sweeney MD [address] [place] [phone] 06/04/2024 10:30 AM EDT Consult Bariatric Surgery [facility] [address] [phone] Lita Verde PA [address] [address] 06/04/2024 11:45 AM EDT Office Visit Orthopedic Surgery [facility] [address] [phone] Luis Armando Eller MD [address] [phone] 06/05/2024 9:45 AM EDT Office Visit Orthopedic Surgery [facility] [address] [phone] Duke Dunn, DPM [address] [address] 06/06/2024 2:30 PM EDT Office Visit Obstetrics and Gynecology [address] [phone] Stacie Martinez, [address] [address] 06/30/2024 10:30 AM EDT Office Visit Orthopedic Surgery [facility] [address] [phone] Luis Armando Eller MD [address] [address] 07/02/2024 9:30 AM EDT Office Visit Orthopedic Surgery [facility] [address] [phone] Lorie Moore NP 175 [facility] [address] [place] [address] 09/22/2024 8:45 AM EDT Office Visit Pulmonolgy - [place] 175 [facility] [address] [place] [phone] Pretty Le MD 175 [facility] [address] [place] [address] Health Maintenance Due Date Last Done Comments Diabetes: Annual Retina Eye Exam 1968 RSV Immunization Patients 60+ Years Old (1 - Risk 60-74 years 1-dose series) 2018 Zoster Vaccines (2 of 2) 02/23/2023 12/29/2022 COVID-19 Vaccine ( season) 2023 12/29/2022, 05/18/2021, 09/21/2020, Additional history exists Influenza Vaccine (#1) 2023 , 01/18/2018, 12/20/2016, Additional history exists Pneumococcal Vaccine: 65+ Years (2 of 2 - PCV) 01/16/2024 01/15/2023, 07/19/2017 Pneumococcal Vaccine: Pediatrics (0 to 5 Years) and At-Risk Patients (6 to 64 Years) (2 of 2 - PCV) 01/16/2024 01/15/2023, 07/19/2017 Diabetes: Blood Sugar Control Test (HGBA1C) 05/25/2024 11/26/2023, 11/26/2023, 09/26/2023 Colorectal Cancer Screening: Colonoscopy 09/28/2024 09/29/2019 Depression Screening 09/30/2024 10/01/2023 Diabetes: Annual Foot Exam 09/30/2024 10/01/2023 Falls Risk Assessment 09/30/2024 10/01/2023 Medicare Annual Wellness Visit 09/30/2024 10/01/2023 Diabetes: Annual Urine Albumin-Creatinine Ratio (uACR) 10/03/2024 10/04/2023 Diabetes: Annual GFR (Glomerular Filtration Rate) 11/22/2024 11/23/2023, 11/23/2023, 09/26/2023 Hypertension/CHF/CAD Annual BMP Blood Test 11/22/2024 11/23/2023, 11/23/2023, 09/26/2023 Breast Cancer Screening 12/11/2024 12/12/19 23, 12/05/2021, 11/26/2020, Additional history exists Social Influencers of Health Screening 01/23/2025 01/24/2024 Cervical Cancer Screening: HPV 04/11/2026 04/11/2021 Cholesterol Screening (Lipid Panel) 10/03/2028 10/04/2023, 10/04/2023 Osteoporosis Screening (Bone Density Screening) 03/31/2031 03/31/2021, 01/21/2018 DTaP,Tdap,and Td Vaccines (3 - Td or Tdap) 10/31/2032 10/31/2022, 08/13/2012 Hepatitis C Screening Completed 09/22/2014 HIB Vaccines Aged Out No longer eligi ble based on patient's age to complete this topic HPV Vaccines Aged Out No longer eligi ble based on patient's age to complete this topic Hepatitis A Vaccines Aged Out No long er eligible based on patient's age to complete this topic Hepatitis B Vaccines Aged Out No long er eligible based on patient's age to complete this topic IPV Vaccines Aged Out No longer eligi ble based on patient's age to complete this topic MMR Vaccines Aged Out No longer eligi ble based on patient's age to complete this topic Meningococcal ACWY Vaccine Aged Out N o longer eligible based on patient's age to complete this topic RSV Immunization Patients Under 20 months Aged Out No longer eligible based on patient's age to complete this topic Varicella Vaccines Aged Out No longer eligible based on patient's age to complete this topic Procedures Procedure Name Priority Date/Time Associated Diagnosis Comments MR BRAIN WO CONTRAST Routine 02/29/2024 2:48 PM EST NE ARTHROCENTESIS/ASPI RATION/INJECTION MAJOR JOINT/BURSA W/O U/S GUIDANCE Routine 01/31/2024 10:30 AM EST Primary osteoarthritis of left knee NE ARTHROCENTESIS/ASPI RATION/INJECTION MAJOR JOINT/BURSA W/O U/S GUIDANCE Routine 01/24/2024 10:00 AM EST Primary osteoarthritis of left knee NE ARTHROCENTESIS/ASPI RATION/INJECTION MAJOR JOINT/BURSA W/O U/S GUIDANCE Routine 01/16/2024 3:00 PM EST Primary osteoarthritis of left knee HEMOGLOBIN A1C Routine 11/26/2023 ANNUAL BMP BLOOD TEST Routine 11/23/2023 URINE ALBUMIN CREATININE RATIO Routine 10/04/2023 LIPID PANEL Routine 10/04/2023 DEPRESSION SCREENING Routine 10/01/2023 FALLS RISK ASSESSMENT Routine 10/01/2023 DIABETES FOOT EXAM Routine 10/01/2023 SCREENING MAMMOGRAPHY BI 2-VIEW BREAST INC CAD Routine 12/11/2022 10:44 AM EDT Encounter for screening mammogram for malignant neoplasm of breast HPV Routine 04/11/2021 DXA BONE DENSITY STUDY 1+ SITS AXIAL SKEL Routine 03/31/2021 9:28 AM EST Hyperparathyroidism, unspecified (CMS/HCC) COLONOSCOPY Routine 09/29/2019 HEPATITIS C SCREENING Routine 09/22/2014 from Last 3 Months or Most Recently Relevant to Health Maintenance Results * MR Brain wo Contrast (02/29/2024 2:48 PM EST) Anatomical Region Laterality Modality Head and Neck Magnetic Resonan ce Historical Provider MD ASCENCIO MRI PROCEDURE S * NE ARTHROCENTESIS/ASPIRATION/INJECTION MAJOR JOINT/BURSA W/O U/S GUIDANCE (01/31/2024 10:30 AM EST) Narrative Dayton Gaytan MD - 01/31/2024 10:30 AM EST Lorie Moore NP ? 01/31/2024 10:20 AM L Inj/Asp: L knee Indications: pain Details: 22 G needle, anterolateral approach Medications: 20 mg sodium hyaluronate (viscosup) 10 mg/mL(mw 2.4 -3.6 million) Informed Consent: ??Laterality: ??Left ??Relevant images/test results available and reviewed: yes ?Health status cleared: ??Yes ??Procedure/treatment, purpose, treatment alternatives, risks/potential complications and benefits explained: yes ?Patient questions answered: yes ?Patient agrees, verbalizes understanding, and wants to proceed: yes ?Consent given by: ??Patient ??Informed consent discussion completed by Physician/KAPIL with patient: ?? Verbal ??Pre-procedure timeout performed: yes ?? Lorie Moore TIRE CENTER MANAGER IN CLINIC/BEDSI DE ORDERABLES * NE ARTHROCENTESIS/ASPIRATION/INJECTION MAJOR JOINT/BURSA W/O U/S GUIDANCE (01/24/2024 10:00 AM EST) Narrative Dayton Gaytan MD - 01/24/2024 10:00 AM HORACE Moore NP ? 01/24/2024 10:25 AM L Inj/Asp: L knee Details: 22 G needle, anterolateral approach Medications: 20 mg sodium hyaluronate (viscosup) 10 mg/mL(mw 2.4 -3.6 million) Informed Consent: ??Laterality: ??Left ??Relevant images/test results available and reviewed: yes ?Health status cleared: ??Yes ??Procedure/treatment, purpose, treatment alternatives, risks/potential complications and benefits explained: yes ?Patient questions answered: yes ?Patient agrees, verbalizes understanding, and wants to proceed: yes ?Consent given by: ??Patient ??Informed consent discussion completed by Physician/KAPIL with patient: ?? Verbal ??Pre-procedure timeout performed: yes ?? Lorie Moore TIRE CENTER MANAGER IN CLINIC/BEDSI DE ORDERABLES * NE ARTHROCENTESIS/ASPIRATION/INJECTION MAJOR JOINT/BURSA W/O U/S GUIDANCE (01/16/2024 3:00 PM EST) Narrative Dayton Gaytan MD - 01/16/2024 3:00 PM EST Lorie Moore NP ? 01/17/2024 10:35 AM L Inj/Asp: L knee Details: 22 G needle, anterolateral approach Medications: 20 mg sodium hyaluronate (viscosup) 10 mg/mL(mw 2.4 -3.6 million) Informed Consent: ??Laterality: ??Left ??Relevant images/test results available and reviewed: yes ?Health status cleared: ??Yes ??Procedure/treatment, purpose, treatment alternatives, risks/potential complications and benefits explained: yes ?Patient questions answered: yes ?Patient agrees, verbalizes understanding, and wants to proceed: yes ?Consent given by: ??Patient ??Informed consent discussion completed by Physician/KAPIL with patient: ?? Verbal ??Pre-procedure timeout performed: yes ?? Lorie Moore NP IN CLINIC/BEDSI DE ORDERABLES * (ABNORMAL) Hemoglobin A1c (11/26/2023) [facility] Hemoglobin A1C 7.4(A) 6.5 % Blood Venous blood specimen / Unknown Historical Provider LAB BLOOD ORDERAB LES * Annual BMP Blood Test (11/23/2023) [facility] Annual BMP Blood Test Abstracted Historical Provider MD JC BURROWS E * Urine Albumin Creatinine Ratio (10/04/2023) [facility] Urine Albumin Creatinine Ratio Abstracted Historical Provider MD JC BURROWS E * (ABNORMAL) Lipid panel (10/04/2023) [facility] LDL/HDL Ratio 4 0 - 4 Triglycerides 173(A) 0 - 150 mg/dL Cholesterol 146 0 - 200 mg/dL HDL 39(A) 40 mg/dL LDL Cholesterol 73 0 - 100 mg/dL Blood Venous blood specimen / Unknown Historical Provider LAB BLOOD ORDERAB LES * Falls Risk Assessment (10/01/2023) Pathologist [facility] Falls Risk Assessment Abstracted Historical Provider [facility] E * Depression Screening (10/01/2023) Pathologist [facility] Depression Screening Abstracted Historical Provider [facility] E * Diabetes Foot Exam (10/01/2023) Pathologist [facility] Diabetes: Annual Foot Exam Abstracted Historical Provider [facility] E * SCREENING MAMMOGRAPHY BI 2-VIEW BREAST INC CAD (12/11/2022 10:44 AM EDT) Anatomical Region Laterality Modality Radiographic Ivy ging 12/05/2021 9:28 AM EDT Narrative 12/11/2022 8:46 PM EDT This is a summary report. The complete report is available in the patient's medical record. If you cannot access the medical record, please contact the sending organization for a detailed fax or copy. Exam: Screening mammogram Findings: Digital bilateral full-field screening mammography is performed with tomosynthesis and interpreted with the aid of computer-aided detection. ??Comparison is made with 12/05/2021 and as far back as 11/12/2018. ??Positioning was limited by patient body habitus and images obtained are the best possible. Breast parenchyma is composed of scattered fibroglandular densities. ??Bilateral subcentimeter nodules appear stable. No new suspicious mass, architectural distortion, or suspicious calcifications. Impression: No mammographic evidence of malignancy. BI-RADS 2-benign Procedure Note Katheryn Pressley MD - 04/16/2023 This is a summary report. The complete report is available in thepatient's medical record. If you cannot access the medical record, pleasecontact the sending organization for a detailed fax or copy. Exam: Screening mammogram Findings: Digital bilateral full-field screening mammography is performedwith tomosynthesis and interpreted with the aid of computer-aideddetection. Comparison is made with 12/05/2021 and as far back as 11/12/2018.Positioning was limited by patient body habitus and images obtained arethe best possible. Breast parenchyma is composed of scattered fibroglandular densities.Bilateral subcentimeter nodules appear stable. No new suspicious mass,architectural distortion, or suspicious calcifications. Impression: No mammographic evidence of malignancy. BI-RADS 2-benign Lee Sibley MD IMG XR PROCEDURES * Cervical Cancer Screening: HPV (04/11/2021) Cervical Cancer Screening: HPV No interpreta tion,abstr acted Historical Provider MD JC BURROWS E * DXA BONE DENSITY STUDY 1+ SITS AXIAL SKEL (03/31/2021 9:28 AM EST) Anatomical Region Laterality Modality Bone Densitometr y 03/09/2021 11:3 4 AM EST Narrative 03/31/2021 4:11 PM EST BONE DENSITY ? Lumbar Spine T-score is +0.6 ?? (SD relative to 20-29 y/o adult) Z-score is +2.2 ??(SD relative to age matched peers) This is normal by criteria defined by the WHO. Left Hip T-score is +0.3 Z-score is +1.7 This is normal by criteria defined by the WHO. Comparison exam(s): significant decrease in bone density of ??lumbar spine when compared to most recent bone density examination ?? Confidence level is +/-95%. Impression: Based on the World Health Organization criteria, Ana Luisa House should be classified as having normal bone density. [facility] Department of Internal Medicine recommends using National Osteoporosis Foundation (NOF) guidelines in treatment decisions related to osteoporosis. NOF guidelines suggest considering treatment for postmenopausal women and men aged 50 or older presenting with the following: History of hip or vertebral fracture. T-score less than or equal to -2.5 (DXA) at the femoral neck, total hip, or spine, after appropriate evaluation to exclude secondary causes. Low bone mass (T-score between -1.0 and -2.5 at the femoral neck or spine) AND a 10-year probability of a hip fracture greater than or equal to 3% OR a 10-year probability of a major osteoporosis-related fracture greater than or equal to 20% based on the [place]-adapted WHO algorithm Please note that all treatment decisions require clinical judgment and consideration of individual patient factors, including patient preferences, co-morbidities, previous drug use, risk factors not captured in the FRAX model (e.g., frailty, falls, vitamin D deficiency, increased bone turnover, interval significant decline in bone density) and possible under- or over-estimation of fracture risk by FRAX. Procedure Note Ezekiel Navarrete MD - 02/28/2022 BONE DENSITY Lumbar Spine T-score is +0.6 (SD relative to 20-29 y/o adult) Z-score is +2.2 (SD relative to age matched peers) This is normal by criteria defined by the WHO. Left Hip T-score is +0.3 Z-score is +1.7 This is normal by criteria defined by the WHO. Comparison exam(s): significant decrease in bone density of lumbar spinewhen compared to most recent bone density examination Confidence level is +/-95%. Impression: Based on the World Health Organization criteria, Ana Luisa House should beclassified as having normal bone density. [facility] Department of Internal Medicine recommendsusing National Osteoporosis Foundation (NOF) guidelines in treatmentdecisions related to osteoporosis. NOF guidelines suggest consideringtreatment for postmenopausal women and men aged 50 or older presentingwith the following: History of hip or vertebral fracture. T-score less than or equal to -2.5 (DXA) at the femoral neck, total hip,or spine, after appropriate evaluation to exclude secondary causes. Low bone mass (T-score between -1.0 and -2.5 at the femoral neck or spine)AND a 10-year probability of a hip fracture greater than or equal to 3% ORa 10-year probability of a major osteoporosis-related fracture greaterthan or equal to 20% based on the [place]-adapted WHO algorithm Please note that all treatment decisions require clinical judgment andconsideration of individual patient factors, including patientpreferences, co-morbidities, previous drug use, risk factors not capturedin the FRAX model (e.g., frailty, falls, vitamin D deficiency, increasedbone turnover, interval significant decline in bone density) and possibleunder- or over-estimation of fracture risk by FRAX. Jayesh Pineda MD IMLeyla DXA PROCEDURES * Colonoscopy (09/29/2019) Pathologist [facility] Colonoscopy No interpreta tion,abstr acted Anatomical Region Laterality Modality Other Historical Provider MD JC Berry * Hepatitis C Screening (09/22/2014) [facility] Hepatitis C Screening Abstracted Historical Provider MD JC Berry from Last 3 Months or Most Recently Relevant to Health Maintenance Care Teams Second Time Worker Relationship Specialty Start Date End Date Ora Sweeney MD [address] [place] [phone] PCP - General Internal Medicine 01/09/24
--- OUTSIDE RECORDS SUMMARY | 2024-04-11 07:59 | XMS_ITS | Data Portability ---
Author Organization [facility], [address] Address [address] [place] [address] Assessment No assessment recorded. Plan of Treatment Reminders Order Date Submit Date Provider Last Modified By Organization Details Last Modified Time Details Appointments None recorded. Lab rapid flu (A+B) 2021 022 marva zhang13 [address] [address], [address] [place], [address], 14:02:10 rapid SARS CoV 2 Ag, QL IA, respiratory specimen 2021 022 [facility] [address], [address] [place], [address], 14:02:10 Referral None recorded. Procedures None recorded. Surgeries None recorded. Imaging None recorded. Medication Orders Tamiflu [address] [facility]Pharmacy #[id number], [phone] [place], [address], 03:31:38 promethazin e-DM 6.25 mg-15 mg/5 mL oral syrup [address] [facility] #[id number], [phone] [place], [address], 14:02:13 Patient TargetsNo targets recorded. Patient Instructions Encounter Date Encounter Id Patient Instructions Last Modified By Organization Details Last Modified Time 02/20/2022 [id number] You should follow-up with your PCP in [...] y speci men Unknown Analyte Not Available [id number] [place] [address] [address] [place], [address], 02/20/2022 13:38:01 02/21/20 22 02/20/2022 rapid SARS CoV 2 Ag, QL IA, respi rator y speci men Unknown Analyte negati ve Not Available [address] [place], [address], 02/20/2022 13:38:01 02/21/20 22 02/20/2022 rapid flu (A+B) Unknown Analyte negati ve Not Available spr[address] [place], [address], 02/20/2022 13:24:32 02/21/20 22 02/20/2022 rapid flu (A+B) Unknown Analyte Normal = Negati ve Not Available spr[address] [place], [address], 02/20/2022 13:24:32 02/21/20 22 02/20/2022 rapid flu (A+B) Unknown Analyte negati ve Not Available [address] [place], [address], 02/20/2022 13:24:32 02/21/20 22 02/20/2022 rapid flu (A+B) Unknown Analyte Normal = Negati ve Not Available [address] [place], [address], 02/20/2022 13:24:32 Result Notes None recorded. Problems Name Problem SNOMED Code Status Onset Date Resolution Date Notes Provider Name and Address Organization Details Recorded Time Hypertensive disorder 40050537 Active 2021 Layne Trevino null, PA - [facility] 2 13:21:27 Hyperlipidemia 05888377 Active 2021 Layne Trevino null, PA - [facility] 2 13:21:42 Thyroiditis 85493645 Active 2021 Laynetristen Trevino null, PA - [facility] 2 13:21:59 Environmental allergy 364317028 Active 2021 Layne Trevino null, PA - [facility] 2 13:22:12 Migraine 41690875 Active 2021 Layne Trevino null, PA - [facility] 2 13:22:21 Diabetes mellitus 53141510 Active 2021 Layne Trevino null, PA - [facility] 2 13:22:34 Asthma 072712515 Active 2021 Layne Trevino null, PA - [...] Name and Address Organization Details Recorded Time 01545 Product containin g penicilli n and antibioti c (product) medicatio n swelling Not available high 02/20/2022 16230 05 SNOMED Layne Trevino null, PA - [facility] 2 13:13:07 79638 Duricef medicatio n swelling Not available Not available 02/20/202281924 6 RxNorm Layne Trevino null, PA - [facility] 2 13:13:25 21571 Medrol medicatio n swelling Not available Not available 02/20/202241701 2 RxNorm Layne Trevino null, PA - [facility] 2 13:13:43 65879 oxycodone medicatio n Not available Not available Not available 02/20/2022 7804 RxNorm Layne Trevino null, PA - [facility] 2 13:13:52 97560 chocolate flavor food,medi cation Not available Not available Not available 02/20/2022 87998 UNDarren Trevino null, PA - [facility] 2 13:14:02 68040 almond allergeni c extract food Not available Not available Not available 02/20/2022 58965 7 RxNorm Layne Trevino null, PA - [facility] 2 13:14:09 31798 Canis lupus familiari s extract environme nt Not available Not available Not available 02/20/2022 73008 4 RxNorm Layne Trevino null, PA - [facility] 2 13:14:18 94571 cat dander environme nt Not available Not available Not available 02/20/2022 85958 UNK Layne Trevino null, PA - [facility] 2 13:14:22 32967 rabbit dander environme nt Not available Not available Not available 02/20/2022 63181 UNDarren SalgadoLaynetristen Trevino null, PA - [facility] 2 13:14:29 61057 latex environme nt,medica tion Not available Not available Not available 02/20/2022 50016 91 RxNorm Laynetristen Trevino null, PA - [facility] 2 13:14:36 69494 house dust mite environme nt Not available Not available Not available 02/20/2022 02856 UNK Layne Trevino null, PA - [facility] 2 13:14:44 56357 POLLEN EXTRACTS environme nt,medica tion Not available Not available Not available 02/20/2022 70107 6 RxNorm Layne Trevino null, PA - [facility] 2 13:14:56 54648 grass pollen environme nt,medica tion Not available Not available Not available 02/20/2022 51158 UNK Layne Trevino null, PA - [facility] 2 13:15:03 33338 ethinyl estradiol / levonorge strel medicatio n Not available Not available Not available 02/20/2022 19260 8 RxNorm Layne Trevino null, PA - [...] Not Available Vitals Date Recorded Body height Provider Name an d Address Organization Details Last Updated DateTime 02/20/2022 162.56 cm Layne Trevino PA - [facility] 02/20/2022 13:11:49 Date Recorded Body mass index (BMI) Body weight Provider Name and Address Organization Details Last Updated DateTime 02/20/2022 44.6 kg/m2 923937.02 g Layne Trevino PA - [facility] 02/20/2022 13:11:52 Date Recorded Oxygen saturation Oxygen saturation in Arterial blood by Pulse oximetry Provider Name and Address Organization Details Last Updated DateTime 02/20/2022 100 % 100 % Layne Trevino PA - [facility] 02/20/2022 13:12:11 Date Recorded Heart rate Provider Name an d Address Organization Details Last Updated DateTime 02/20/2022 85 /min Layne Trevino PA - [facility] 02/20/2022 13:12:18 Date Recorded Respiratory rate Provider Name a nd Address Organization Details Last Updated DateTime 02/20/2022 20 /min Layne Trevino PA - [facility] 02/20/2022 13:12:20 Date Recorded Body temperature Provider Name a nd Address Organization Details Last Updated DateTime 02/20/2022 98.8 [degF] Layne Trevino PA - [facility] 02/20/2022 13:12:26 Date Recorded Systolic blood pressure Diastolic blood pressure Provider Name and Address Organization Details Last Updated DateTime 02/20/2022 159 mm[Hg] 88 mm[Hg] Layne Trevino PA - [facility] 02/20/2022 13:12:06 Social History Question Answer Notes LastModified by Organizat ion Details LastModified Time Tobacco Smoking Status Never Smoker Layne simeon PA - [facility] 02/20/2022 13:23:07 What Is Your Level Of Alcohol Consumption? Occasional [email or web address] Information not available 02/20/2022 Have You Had Direct Contact, Or Contact During Intimacy, With Monkeypox Rash, Scabs, Or Body Fluids From A Person With Monkeypox? No Information not available 02/20/2022 Do You Use Any Illicit Or Recreational Drugs? No [email or web address] Information not available 02/20/2022 Have You Recently Traveled Abroad? No Information not available 02/20/2022 Sex: Unknown Functional Status None recorded. Mental Status None recorded. Family History Nothing Reported. Medical History No medical history recorded. Gynecological HistoryNo gynecological history recorded. Obstetrics History GPAL:G 0 P 0 0 0 0 Immunizations Vaccine Type Date Status Note Provider Nam e and Address Organization Details Recorded Time SARS-COV-2 (COVID-19) vaccine, UNSPECIFIED 09/09/2020 completed [facility] - [facility] 02/20/2022 13:19:15 Past Encounters Encounter ID Performer Location Encounter Start Date Encounter Closed Date Diagnosis/Indication Diagnosis SNOMED-CT Code Diagnosis ICD10 Code Diagnosis Note [id number] [address] [address] [place] [address] 04/01/2019 17:17:25 04/01/2019 18:28:03 [id number] Evel[place] mill[place] [address] [facility] [address] [place] [address] 02/20/2022 12:02:53 02/20/2022 14:03:53 Generalized aches and pains 38784584 R52 Viral syndrome 000545403 B34.9 Health Concerns Section Related Observation LastModified by Organization Detai ls LastModified Time None Recorded Concern Status LastModified by Organization Details LastModified Time None Recorded Advance Directives Directive None Recorded Payers Encounter Date Sequence Insurance Name Policy Number Policy Saleh Covered Member ID Saleh Member ID Guarantor Name 04/01/2019 1 [facility] (MEDICAID REPLACEMENT - HMO) [place] Ana Luisa A House [id number] Ana Luisa A House 02/20/2022 1 [facility] (MEDICAID REPLACEMENT - HMO) [place] Ana Luisa A House [id number] Ana Luisa A House Notes Date Note [...] nasal drip;hurts to breath Evelina Xiao MD [address], [place], [address], PA - [facility] 02/20/2022 20:29:48 OBGyn Episode No OBEpisode recorded.
--- OUTSIDE RECORDS SUMMARY | 2024-04-11 07:59 | XMS_ITS | Encounter Summary ---
Author Organization [facility] Address [address] [place] [address] Care Team Providers Care Software Release Manager Name Role Phone Ora Sweeney MD Primary Care Prov ider Reason for Visit * Reason Comments Follow-up Encounter Details Date Type Department Care Team ([facility] st Contact Info) Description 03/26/2024 9:45 AM EST Office Visit Orthopedic Surgery - [place] 160 175 [facility] [address] [place] [phone] Luis Armando Eller MD 175 [facility] 160 [place] [address] S/P left rotator cuff repair (Primary Dx) Social History Tobacco Use Types Packs/Day Years [...] for your loved ones. For example, child nurse or elderly care for an older adult? [...] - - Weight 126 kg (278 lb) 03/26/2024 9:59 AM EST Height 160 cm (5' 2.99 ) 03/26/2024 9:59 AM EST Body Mass Index 49.26 03/26/2024 9:59 AM EST documented in this encounter Progress Notes * Luis Armando Eller MD - 03/26/2024 9:45 AM EST Reason For Visit: Follow-up of the Left Shoulder Patient: Ana Luisa House : 1960 VISIT DATE: 03/26/2024 HPI: Ana Luisa House is a 63 y.o. year old female who presents follow up on her left shoulder. She is approximately 3-1/2 months after surgery. Overall she is doing quite well. She has no pain. She is doing her physical therapy. ROS: GENERAL: negative MUSCULOSKELETAL: See HPI The remainder of the review of systems is noncontributory Allergies: Allergies Allergen Reactions Cefadroxil Swelling and Shortness of breath Other Reaction(s): difficulty breathing/facial swelling Methylprednisolone Swelling and Shortness of breath Other Reaction(s): edema Other Itching, Rash and Swelling roaches Other Reaction(s): MSG edema Penicillins Swelling and Shortness of breath Other Reaction(s): throat swelling/facial swelling Animal Dander Sneezing Bee Pollen Other reaction(s): Not available Cat's Claw Runny nose Chocolate Sneezing and allergies Other Reaction(s): snezzing/runny nose Chocolate Flavor Other reaction(s): Not available Dog Dander House Dust Mite Latex Hives Levonorgestrel-Ethinyl Estrad Other reaction(s): Not available Mold Nut - Unspecified Swelling Almunds Oxycodone Mood change Rabbit Epithelium Allergenic Extract rabbits Past Medical History: has a past medical history of Abdominal pain, RUQ (12/28/2014), Abnormal finding on imaging (12/28/2014), Angiomyolipoma of both kidneys, Anxiety state, Asthma, Asthma, moderatepersistent (05/10/2020), Asthma- chronic obstructive pulmonary disease overlap syndrome ([facility]/HCC) (01/30/2022), Class 3 severe obesity due to excess calories with serious comorbidity and body mass index (BMI) of 40.0 to 44.9 in adult ([facility]/HCC) (07/15/2019), COVID-19, CTS (carpal tunnel syndrome), Depression, Depressive disorder, Diabetes mellitus ([facility]), Diabetes mellitus type 2, controlled, without complications ([facility]) (02/16/2021), Family history of colon cancer, Fatty liver, Gastroesophageal reflux disease without esophagitis (08/30/2015), HLD (hyperlipidemia) (11/21/2021), Hypertension, Hypothyroid, Migraines, Mild concentric left ventricular hypertrophy (08/23/2021), Morbid obesity with BMI of 40.0-44.9, adult ([facility]), Multiple thyroid nodules, Nonalcoholic fatty liver disease (04/12/2015), Obesity with alveolar hypoventilation ([facility]/HCC), VIRGIE on CPAP, Osteoarthritis, Overactive bladder, Pain and swelling of left upper extremity (11/21/2021), Pre-diabetes (09/25/2017), Seasonal allergies (08/18/2013), Shingles, Sleep apnea, Stress incontinence, and Vitamin D deficiency (). She has no past medical history of Actinic keratosis, hx of, Amblyopia, Amblyopia, unspecified, Bronchitis, not specified as acute or chronic, Cerebrovascular disease, Chronic ischemic heart disease,Glaucoma, Historical Medical DX, History of malignant neoplasm of large intestine, History of other specified conditions presenting hazards to health, Irritable bowel syndrome, Macular degeneration (senile) of retina, Macular degeneration (senile) of retina, unspecified, Malignant neoplasm of colon(CMS/HCC), Malignant neoplasm of female breast (CMS/HCC), Neoplasm of uncertain behavior of prostate, Nevus, non- neoplastic, Personal history of malignant melanoma of skin, Personal history of malignant neoplasm of breast, Personal history of malignant neoplasm of ovary, Retinal detachment with retinal defect, Retinal detachment with retinal defect, unspecified, Solitary cyst of breast, Type II or unspecified type diabetes mellitus with unspecified complication, not stated as uncontrolled, or Un specified glaucoma(365.9). Social History: Social History Tobacco Use Smoking status: Never Smokeless tobacco: Never Substance Use Topics Alcohol use: No Past Surgeries: Past Surgical History: Procedure Laterality Date CARPAL TUNNEL RELEASE Right 07/24/2022 PROCEDURE: HISTORICAL CARPAL TUNNEL REL; COMMENT: Dr. Boudreaux CARPAL TUNNEL RELEASE 10/17/2022 PROCEDURE: HISTORICAL CARPAL TUNNEL REL; COMMENT: left CTR, Dr. Boudreaux SECTION PROCEDURE: HISTORICAL DELIVERY COLONOSCOPY 12/10/2012 PROCEDURE: HISTORICAL COLONOSCOPY; COMMENT: normal; repeat in 3 yrs. sig. hyperplastic polyp COLONOSCOPY 01/31/2016 PROCEDURE: HISTORICAL COLONOSCOPY; COMMENT: 3 small polyps removed- dist.asc =tubular adenoma x 1; other nl tissue. COLONOSCOPY 09/29/2019 PROCEDURE: HISTORICAL COLONOSCOPY; COMMENT: 5 mm ascending colon polyp: Tubular adenoma. ESOPHAGOGASTRODUODENOSCOPY 09/22/2021 PROCEDURE: NH EGD TRANSORAL BIOPSY SINGLE/MULTIPLE; COMMENT: EGD including biopsy normal EXCISION BENIGN SKIN LESION TRUNK / ARM / LEG PROCEDURE: NH EXCISION TUMOR SOFT TISSUE BACK/FLANK SUBQ <3CM; COMMENT: Lipomas removed HERNIA REPAIR PROCEDURE: HISTORICAL HERNIA REPAIR/ING KNEE ARTHROSCOPY Right PROCEDURE: NH ARTHROSCOPY KNEE DIAGNOSTIC W/WO SYNOVIAL BX SPX OTHER SURGICAL HISTORY PROCEDURE: NH BIOPSY THYROID PERCUTANEOUS CORE NEEDLE OTHER SURGICAL HISTORY PROCEDURE: CYSTOSCOPY/SURG, URETHRA/BLAD NECK; COMMENT: sling procedure for stress incontinence OTHER SURGICAL HISTORY Right 08/25/2015 PROCEDURE: NH EXCISION NAIL MATRIX PERMANENT REMOVAL; COMMENT: right hallux Dr. Rangel OTHER SURGICAL HISTORY PROCEDURE: HISTORY OTHER; COMMENT: Maxillofacial surgery ROTATOR CUFF REPAIR Left 12/06/2023 PROCEDURE: HISTORICAL ROTATOR CUFF REPAIR; COMMENT: Left shoulder arthroscopic rotator cuff repair.Subacromial decompression. Labral debridement. TONSILLECTOMY PROCEDURE: HISTORICAL TONSILLECTOMY; COMMENT: and adenoids UPPER GASTROINTESTINAL ENDOSCOPY 09/29/2019 PROCEDURE: NH UPPER GI ENDOSCOPY PERFORMED; COMMENT: Visually normal on PPI treatment. WISDOM TOOTH EXTRACTION PROCEDURE: HISTORICAL WISDOM TEETH EXTRACTION Medications: No outpatient medications have been marked as taking for the 03/26/24 encounter (Office Visit) with Luis Armando Eller MD. Physical Exam: Vitals: 03/26/24 0959 Weight: 126 kg (278 lb) Height: 1.6 m (62.99 ) APPEARANCE: Alert, oriented, no acute distress LEFTSHOULDER SHOULDER EXAM: LEFT Inspection: Healed surgical scars. Palpation: No significant tenderness ROM: Active 170/60/L5 Passive 170/60/L5 Neurovascular: No gross deficits distally Strength: Rotator cuff strength is near normal Special Tests: No significant signs of impingement Imaging: ORTHO X-RAY EXAM OF SHOULDER (2 VIEWS) Left shoulder x-rays December 19, 2023. AP and Y lateral views. No acute osseous abnormalities noted. Assessment and Plan: 1. S/P left rotator cuff repair Overall doing well. No pain. Happy she had the surgery. Will continue with her exercises. See us in3 months for her postoperative 6-month visit. Physical Therapy: Continue with PT/OT Luis Armando Eller MD documented in this encounter Plan of Treatment Upcoming Encounters Date Type Department Care Team (Late st Contact Info) Description 04/11/2024 9:45 AM EST Office Visit Endocrinology - [address] [phone] Jayesh Pineda MD [address] [place] [address] 05/28/2024 9:45 AM EDT Office Visit Adult Medicine East - [address] [phone] Ora Sweeney MD [address] [place] [address] 06/04/2024 10:30 AM EDT Consult Bariatric Surgery [facility] [address] [phone] Lita Verde PA [address] [address] 06/04/2024 11:45 AM EDT Office Visit Orthopedic Surgery [facility] [address] [phone] Luis Armando Eller MD [address] [address] 06/05/2024 9:45 AM EDT Office Visit Orthopedic Surgery [facility] 250 175 [facility] 250 [place] [address] Duke Dunn DPM [address] [address] 06/06/2024 2:30 PM EDT Office Visit Obstetrics and Gynecology - [address] [phone] Stacie Martinez, [facility] [address] [place] [address] 06/30/2024 10:30 AM EDT Office Visit Orthopedic Surgery [facility] 160 175 [facility] 160 [place] [phone] Luis Armando Eller MD 175 [facility] 160 [place] [address] 07/02/2024 9:30 AM EDT Office Visit Orthopedic Surgery [facility] 250 175 [facility] 250 [place] [phone] Lorie Moore NP 175 [facility] 250 [place] [address] 09/22/2024 8:45 AM EDT Office Visit Pulmonolgy - [place] 175 [facility] 200 [place] [phone] Pretty Le MD 175 [facility] 200 [place] [address] documented as of this encounter Visit Diagnoses Diagnosis S/P left rotator cuff repair- Primary documented in this encounter Care Teams Software Release Manager Relationship Specialty Start Date End Date Ora Sweeney MD [address] [place] [address] PCP - General Internal Medicine 01/09/24 documented as of this encounter
--- OUTSIDE RECORDS SUMMARY | 2024-04-11 07:59 | XMS_ITS | Encounter Summary ---
Author Organization [facility] Address [address] [place] [address] Care Team Providers Care Roving Hand Name Role Phone Ora Sweeney MD Primary Care Prov ider Encounter Details Date Type Department Care Team (Late st Contact Info) Description 12/12/2023 4:42 PM EDT Hospital Encounter TH HISTORIC ENCOUNTERS EASTERN CONVERSION ONLY Luis Armando Eller MD [address] [place] [address] Social History Tobacco Use Types Packs/Day Years [...] for your loved ones. 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 [...] on file documented as of this encounter Plan of Treatment Upcoming Encounters Date Type Department Care Team (Late st Contact Info) Description 04/11/2024 9:45 AM EST Office Visit Endocrinology [address] [phone] Jayesh Pineda MD [address] [place] [phone] 05/28/2024 9:45 AM EDT Office Visit Adult Medicine [address] [phone] Ora Sweeney MD [address] [place] [address] 06/04/2024 10:30 AM EDT Consult Bariatric Surgery [facility] 175 [facility] 120 [place] [phone] Lita Verde PA 271 [facility] 120 [place] [address] 06/04/2024 11:45 AM EDT Office Visit Orthopedic Surgery [facility] 160 175 [facility] 160 [place] [address] Luis Armando Eller MD [address] [address] 06/05/2024 9:45 AM EDT Office Visit Orthopedic [facility] [address] [phone] Duke Dunn DPJohan [address] [address] 06/06/2024 2:30 PM EDT Office Visit Obstetrics and Gynecology - [address] [address] Stacie Martinez, [facility] 444 [place] [address] 06/30/2024 10:30 AM EDT Office Visit Orthopedic Surgery [facility] [address] [phone] Luis Armando Eller MD [address] [address] 07/02/2024 9:30 AM EDT Office Visit Orthopedic [facility] [address] [phone] Lorie Moore NP [address] [address] 09/22/2024 8:45 AM EDT Office Visit Pulmonolgy - [place] 175 [facility] [address] [place] [phone] Pretty Le MD 175 [facility] 200 [place] [address] documented as of this encounter Visit Diagnoses Not on filedocumented in this encounter Care Teams Roving Hand Relationship Specialty Start Date End Date Ora Sweeney MD [address] [place] [address] PCP - General 10/11/21 01/08/24 documented as of this encounter
--- OUTSIDE RECORDS SUMMARY | 2024-04-11 07:59 | XMS_ITS | Encounter Summary ---
Author Organization [facility] Address [address] [place] [address] Care Team Providers Care Mortar Maker Name Role Phone Oar Sweeney MD Primary Care Prov ider Reason for Visit * Consultation (Elective) - Authorized Specialty Diagnoses / Procedures Referred By Janie castillo Referred To Contact Occupational Therapy Diagnoses S/P left rotator cuff repair Luis Armando Eller MD 175 [facility] [address] [place] [address] [facility] Occupational Therapy [address] [address] Referral ID Status Reason Start Date Expiration Date Visits Requested Visits Authorized [id number] Authorized Specialty Services Required 01/08/2025 21 21 Encounter Details Date Type Department Care Team (Late st Contact Info) Description 03/25/2024 9:00 AM EST Treatment [facility] Occupational Therapy [address] [phone] Lisa Jones COTA Social History Tobacco Use Types Packs/Day Years [...] for your loved ones. 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 [...] on file documented as of this encounter Progress Notes * QUANG Hoffman - 03/25/2024 9:00 AM EST [facility] - Outpatient OCCUPATIONAL THERAPY DAILY TREATMENT NOTE Date: 03/25/2024 Visit Number: [id number] Patient Name: Ana Luisa House : 1960 Age: 63 y.o. Gender: female Diagnosis: No diagnosis found. Date of Onset: 12/06/2023 Referring Provider: Luis Armando Eller MD Insurance: Payor: [employer] / Plan: [facility] OPTIONS / Product Type: *No Product type* / Language: Speaks and understands [place] Citizen as preferred language with no information systems manager required Allergies: is allergic to cefadroxil, methylprednisolone, other, penicillins, animal dander, bee pollen, cat's claw, chocolate, chocolate flavor, dog dander, house dust mite, latex, levonorgestrel-ethinyl estrad, mold, nut - unspecified, oxycodone, and rabbit epithelium allergenic extract. Precautions: Phase 4 02/27 - 03/13/24 Begin light resistence \ SUBJECTIVE Subjective Report: I see the . Pain: None. TREATMENT INTERVENTION Procedures: Pt performed sh flex AROM standing with back to wall for proper posture, seated B sh scaption AROM,Seated B sh abd AROM. ER AROM performed in sitting. Level 2 resistive band for IR/ER, scap retraction. Wall push ups.Hughston's performed on incline bench. Pain Reassessment: no pain Assessment/Response To Treatment: Good Patient Education: Education provided: Yes Education Provided To: Patient utilizing Explanation mode(s) of education Response to Education: Good PLAN POC Development/Review: No Change in the Plan of Care; Participants: Patient Equipment Recommended: none; Equipment Provided: none Total Treatment Time: 45 Documentation completed by QUANG Hoffman documented in this encounter Plan of Treatment Upcoming Encounters Date Type Department Care Team (Late st Contact Info) Description 04/11/2024 9:45 AM EST Office Visit [facility] [address] [place] [address] aJyesh Pineda MD [address] [place] [phone] 05/28/2024 9:45 AM EDT Office Visit Adult Medicine [facility] [address] [place] [address] Ora Sweeney MD [address] [place] [address] 06/04/2024 10:30 AM EDT Consult Bariatric Surgery [facility] [address] [phone] Lita Verde PA [address] [address] 06/04/2024 11:45 AM EDT Office Visit Orthopedic [facility] [address] [phone] Luis Armando Eller MD [address] [address] 06/05/2024 9:45 AM EDT Office Visit Orthopedic Surgery [facility] [address] [phone] Duke Dunn DPM [address] [address] 06/06/2024 2:30 PM EDT Office Visit Obstetrics and Gynecology [address] [phone] Stacie Martinez, [address] [address] 06/30/2024 10:30 AM EDT Office Visit Orthopedic Surgery [facility] [address] [phone] Luis Armando Eller MD [address] [address] 07/02/2024 9:30 AM EDT Office Visit Orthopedic Surgery - [place] 250 175 [facility] [address] [place] [address] Lorie Moore NP 175 [facility] 250 [place] [address] 09/22/2024 8:45 AM EDT Office Visit Pulmonolgy - [place] 175 [facility] [address] [place] [address] Pretty Le MD 175 [facility] 200 [place] [address] documented as of this encounter Visit Diagnoses Not on filedocumented in this encounter Care Teams Mortar Maker Relationship Specialty Start Date End Date Ora Sweeney MD [address] [place] [address] PCP - General Internal Medicine 01/09/24 documented as of this encounter
--- OUTSIDE RECORDS SUMMARY | 2024-04-11 08:00 | XMS_ITS | Encounter Summary ---
Author Organization [facility] Address [address] [place] [address] Care Team Providers Care Hat Block Bench Hand Name Role Phone Ora Sweeney MD Primary Care Prov ider Reason for Visit * Consultation (Elective) - Authorized Specialty Diagnoses / Procedures Referred By Janie castillo Referred To Contact Occupational Therapy Diagnoses S/P left rotator cuff repair Luis Armando Eller MD 175 [facility] 160 [place] [address] [facility] Occupational Therapy 175 [facility] [address] [place] [address] Referral ID Status Reason Start Date Expiration Date Visits Requested Visits Authorized [id number] Authorized Specialty Services Required 01/08/2025 21 21 Encounter Details Date Type Department Care Team (Late st Contact Info) Description 03/27/2024 10:00 AM EST Treatment [facility] Occupational Therapy [address] [phone] Chema Martins, SARAH Rotator cuff tear arthropathy of left shoulder (Primary Dx) Social History Tobacco Use Types [...] for your loved ones. For example, children's aide or elderly care for an older adult? [...] as of this encounter Progress Notes * Chema Martins, OT - 03/27/2024 10:00 AM EST Images from the original note were not included. [facility] - Outpatient OCCUPATIONAL THERAPY DISCHARGE EVALUATION Date: 03/27/2024 Visit Number: 17 Patient Name: Ana Luisa House : 1960 Age: 63 y.o. Gender: female Diagnosis: ICD-10-CM ICD-9-CM 1. Rotator cuff tear arthropathy of left shoulder M75.102 716.81 M12.812 Date of Onset: 12/06/2023 Referring Provider: Luis Armando Eller MD Insurance: Payor: [employer]AGE / Plan: [employer] [facility] OPTIONS / Product Type: *No Product type* / Language: Speaks and understands [place] as preferred language with no medical interpreter required has a past medical history of Abdominal pain, RUQ (12/28/2014), Abnormal finding on imaging (12/28/2014), Angiomyolipoma of both kidneys, Anxiety state, Asthma, Asthma, moderate persistent (05/10/2020), Asthma-chronic obstructive pulmonary disease overlap syndrome ([facility]) (01/30/2022), Class 3 severe obesity due to excess calories with serious comorbidity and body mass index (BMI) of 40.0 to 44.9 in adult ([facility]) (07/15/2019), COVID-19, CTS (carpal tunnel syndrome), Depression, Depressive disorder, Diabetes mellitus ([facility]), Diabetes mellitus type 2, controlled, without complications ([facility]) (02/16/2021), Family history of colon cancer, Fatty liver, Gastroesophageal reflux disease without esophagitis (08/30/2015), HLD (hyperlipidemia) (11/21/2021), Hypertension, Hypothyroid, Migraines, Mild concentric left ventricular hypertrophy (08/23/2021), Morbid obesity with BMI of 40.0-44.9, adult ([facility]), Multiple thyroid nodules, Nonalcoholic fatty liver disease (04/12/2015), Obesitywith alveolar hypoventilation ([facility]/HCC), VIRGIE on CPAP, Osteoarthritis, Overactive bladder, Pain and swelling of left upper extremity (11/21/2021), Pre-diabetes (09/25/2017), Seasonal allergies (08/18/2013), Shingles, Sleep apnea, Stress incontinence, and Vitamin D deficiency (04/17/2019). has a past surgical history that includes Knee Arthroscopy (Right); [place] tooth extraction; Tonsillectomy; Section; Other surgical history; Colonoscopy (12/10/2012); Other surgical history;Other surgical history (Right, 08/25/2015); Colonoscopy (01/31/2016); Colonoscopy (09/29/2019); Upper gastrointestinal endoscopy (09/29/2019); Esophagogastroduodenoscopy (09/22/2021); Other surgical history; Excision benign skin lesion trunk / arm / leg; Hernia repair; Carpal tunnel release (Right,07/24/2022); Carpal tunnel release (10/17/2022); and Rotator cuff repair (Left, 12/06/2023). is allergic to cefadroxil, methylprednisolone, other, penicillins, animal dander, bee pollen, cat'sclaw, chocolate, chocolate flavor, dog dander, house dust mite, latex, levonorgestrel-ethinyl estrad, mold, nut - unspecified, oxycodone, and rabbit epithelium allergenic extract. Precautions: Phase 4 02/27 - 03/13/24 Begin light resistence do not lift anything heavy per MD at appt 03/26/24 SUBJECTIVE Pain: No pain OBJECTIVE General Observations/Comments: Pt able to manage personal items I Bit Tapper Right 55 pounds Left 62 pounds OT Shoulder ROM: Right Left AROM PROM SHOULDER AROM WNL WNL Flexion 150 WNL WNL Scaption 150 WNL WNL Abduction 150 WNL WNL Internal Rotation To stomach WNL WNL External Rotation 40 OT Elbow/forearm ROM Right Left AROM PROM ELBOW/ FOREARM AROM PROM WNL WNL Extension WNL WNL WNL WNL Flexion WNL WNL WNL WNL Pronation WNL WNL WNL WNL Supination WNL WNL OT Wrist ROM Right Left AROM PROM WRIST AROM PROM WNL WNL Extension WNL WNL WNL WNL Flexion WNL WNL WNL WNL Ulnar Deviation WNL WNL WNL WNL Radial Deviation WNL WNL OT Digit ROM WFL Strength RIGHT LEFT COMMENTS SHOULDER Flexion 5/5: Normal 4/5: Good Extension 5/5: Normal 5/5: Normal Abduction 5/5: Normal 4-/5: Good Minus External Rotation 5/5: Normal 5/5: Normal Internal Rotation 5/5: Normal 5/5: Normal ELBOW/ FOREARM Extension 5/5: Normal 5/5: Normal Flexion 5/5: Normal 5/5: Normal Pronation 5/5: Normal 5/5: Normal Supination 5/5: Normal 5/5: Normal WRIST Extension 5/5: Normal 5/5: Normal Flexion 5/5: Normal 5/5: Normal 5/5: Normal - Full ROM and tolerates maximum resistance 4/5: Good - Full ROM and tolerates moderate resistance 4-/5: Good Minus - Full ROM and tolerates less than moderate resistance Breaks with resistance 3+/5: Fair Plus - Full ROM and tolerates minimal resistance Breaks with resistance 3/5: Fair - Full ROM against gravity and tolerates no resistance 3-/5: Fair Minus - < Full ROM against gravity 2+/5: Poor Plus - <50% ROM against gravity OR full ROM gravity eliminated with minimal resistance 2/5: Poor - Full ROM gravity eliminated and tolerates no resistance 2-/5: Poor Minus - < full ROM gravity eliminated 1/5: Trace 0/5: No muscle activation Other Assessments: QuickDASH - Disability of Arm, Shoulder, or Hand Rate your ability to do the following activities in the past week: Open a tight or new jar: 3 - Moderate difficulty Do heavy physics tutor (eg wash nazario, wash floors) : 3 - Moderate difficulty Carry a shopping bag or briefcase : 3 - Moderate difficulty Wash your back : 3 - Moderate difficulty Use a knife to cut food: 2 - Mild difficulty Recreational activities in which you take some force or impact through your arm, shoulder or hand (eg golf, hammering, tennis, etc) : 2 - Mild difficulty During the past week, to what extent has your arm, shoulder or hand problem interfered with your normal social activities with family, friends, neighbours or groups? : 2 - Slightly During the past week, were you limited in your work or other regular daily activities as a result of your arm, shoulder or hand problem? : 2 - Slightly limited Rate the severity of the following symptoms in the last week: Arm, shoulder or hand pain : 1 - None Tingling (pins and needles) in your arm, shoulder or hand : 1 - None During the past week, how much difficulty have you had sleeping because of the pain in your arm, shoulder or hand? : 1 - No difficulty QuickDASH Score QuickDASH Score: 27.27 Classification: Mild Disability TREATMENT INTERVENTIONS: (This Date of Service) There ex: Pt performed sh flex AROM standing with back to wall for proper posture, seated B sh scaption AROM,Seated B sh abd AROM. ER AROM performed in sitting. Level 3 resistive band for IR/ER, scap retraction. Issued level 4 band and educated pt re: progression of HEP AROM, apartment community manager measured as above Pain Reassessment: no pain ASSESSMENT Ana Luisa House is a 63 y.o. female who has participated in outpatient occupational therapy. Pt has progressed well, demo improved AROM, strength, improved fx'l use L UE, no pain. MD follow up in May.. Patient Education: Education provided: HEP Education Provided To: Patient utilizing Explanation and Demonstration mode(s) of education Response to Education: Applied Knowledge and Demonstrated Skills GOALS Goals Addressed This Visit's Progress LTG 24 visits On track Pt will report no pain in L sh - Met Pt will perform HEP MOD I as it progresses - Met Pt will demo L UE AROM WFL for basic ADLs - Met Pt will demo improved fx'l use L UE as evidenced by QD score <=35 - Met Pt will report no pain in L sh consistently - Met Pt will participate in increased strengthening ex - Met Pt goals (pt-stated) On track To be able to move my arm, start knitting STG 6-8 visits On track Pt will report pain in L sh <= 1/10 - Met Pt will perform initial HEP MOD I as outlined in FORCE gina - Met Pt will demo L sh scaption PROM >= 95 degrees - Met Pt will demo improved fx'l use L UE as evidenced by QD score <= 80 - Met Pt will report no pain in L sh consistently - Met Pt will perform upgraded HEP MOD I as outlined in FORCE gina Pt will demo L sh scaption A/AROM >= 120 -Met Pt will demo improved fx'l use L UE as evidenced by QD score <= 65 - Met PLAN Discharge Outpatient Occupational Therapy Pt I with HEP, educated re: progression of strengthening Equipment Provided: Level 3 and 4 therband BILLING (This Date of Service) TOTAL TREATMENT TIME: 45 Minutes Documentation completed by SARAH Lopez OCCUPATIONAL THERAPY 175 [facility] 350 [facility] [address] Dept: [phone] Dept PATIENT NAME: Ana Luisa House : 1960 Certification: This is to certify that the above named patient, who is under my care, requires skilled Therapy services as described in the above treatment plan. I further certify that the services outlined in this plan are skilled and medically necessary. I have reviewed this plan for rehabilitation services, and I recommend that these services continue to meet the above stated goals and plan. SIGNATURE: DATE Luis Armando Eller MD Referring provider documented in this encounter Plan of Treatment Upcoming Encounters Date Type Department Care Team (Late st Contact Info) Description 04/11/2024 9:45 AM EST Office Visit Endocrinology [address] [phone] Jyaesh Pineda MD [address] [place] [phone] 05/28/2024 9:45 AM EDT Office Visit Adult Medicine [facility] - [address] [phone] Ora Sweeney MD [address] [place] [address] 06/04/2024 10:30 AM EDT Consult Bariatric Surgery - [place] 175 [facility] 120 [place] [address] Lita Verde PA 271 [facility] 120 [place] [address] 06/04/2024 11:45 AM EDT Office Visit Orthopedic Surgery [facility] 160 175 [facility] 160 [place] [address] Luis Armando Eller MD [address] [address] 06/05/2024 9:45 AM EDT Office Visit Orthopedic [facility] [address] [phone] Duke Dunn DPJohan [address] [address] 06/06/2024 2:30 PM EDT Office Visit Obstetrics and Gynecology - [address] [phone] Stacie Martinez, [facility] [address] [place] [address] 06/30/2024 10:30 AM EDT Office Visit Orthopedic [facility] [address] [phone] Luis Armando Eller MD [address] [address] 07/02/2024 9:30 AM EDT Office Visit Orthopedic Surgery [facility] [address] [phone] Lorie Moore NP [address] [address] 09/22/2024 8:45 AM EDT Office Visit Pulmonolgy - [place] 175 [facility] 200 [place] [phone] Pretty Le MD 175 [facility] [address] [place] [address] documented as of this encounter Visit Diagnoses Diagnosis Rotator cuff tear arthropathy of left shoulder- Primary documented in this encounter Care Teams Hat Block Bench Hand Relationship Specialty Start Date End Date Ora Sweeney MD [address] [place] [phone] PCP - General Internal Medicine 01/09/24 documented as of this encounter
--- OUTSIDE RECORDS SUMMARY | 2024-04-11 08:00 | XMS_ITS | Encounter Summary ---
Author Organization [facility] Address [address] [place] [address] Care Team Providers Care Racing Manager Name Role Phone Ora Sweeney MD Primary Care Prov ider Reason for Visit * Consultation (Elective) - Authorized Specialty Diagnoses / Procedures Referred By Janie castillo Referred To Contact Occupational Therapy Diagnoses S/P left rotator cuff repair Luis Armando Eller MD 175 [facility] 160 [place] [address] [facility] Occupational Therapy 175 [facility] [address] [place] [address] Referral ID Status Reason Start Date Expiration Date Visits Requested Visits Authorized [id number] Authorized Specialty Services Required 01/08/2025 21 21 Encounter Details Date Type Department Care Team (Late st Contact Info) Description 03/20/2024 11:00 AM EST Treatment [facility] Occupational Therapy [address] [address] Chema Martins, SARAH Rotator cuff [...] your loved ones. For example, child care group leader or elderly care for an older adult? [...] Progress Notes * Chema Martins, OT - 03/20/2024 11:00 AM EST Images from the original note were not included. [facility] - Outpatient OCCUPATIONAL THERAPY Progress Summary Date: 03/20/2024 Visit Number: 15 Patient Name: Ana Luisa House : 1960 Age: 63 y.o. Gender: female Diagnosis: ICD-10-CM ICD-9-CM 1. Rotator cuff tear arthropathy of left shoulder M75.102 716.81 M12.812 Date of Onset: 12/06/2023 Referring Provider: Luis Armando Eller MD Insurance: Payor: [employer]VANTAGE / Plan: [employer] [facility] OPTIONS / Product Type: *No Product type* / Language: Speaks and understands Honduran as preferred language with no asl interpreter required Medications: Current Outpatient Medications on File Prior to Visit Medication Sig Dispense Refill acetaminophen (TYLENOL 8 HOUR) 650 mg 8 hr tablet Take 1 Tablet by mouth 3 times daily as needed for Pain (mild pain). albuterol 2.5 mg /3 mL (0.083 %) nebulizer solution Take 1 Vial by nebulization 3 times daily for 180 days. albuterol HFA (PROAIR HFA ; PROVENTIL HFA ; VENTOLIN HFA) 90 mcg/actuation inhaler Inhale 2 Puffs into the lungs every 6 hours as needed for Cough, Wheezing or Shortness of Breath for up to 363 days. albuterol HFA (Ventolin HFA) 90 mcg/actuation inhaler Inhale 2 Puffs into the lungs every 6 hours as needed for Cough or Wheezing. amLODIPine (NORVASC) 10 mg tablet TAKE 1 TABLET BY MOUTH EVERY DAY 90 tablet 1 ammonium lactate (LAC-HYDRIN) 12 % lotion Apply to soles of feet daily. At night wear socks to bed aspirin 325 mg tablet Take 1 tablet (325 mg total) by mouth 1 (one) time each day. atorvastatin (LIPITOR) 20 mg tablet TAKE 1 TABLET BY MOUTH EVERY DAY 90 tablet 1 azelastine HCl (ASTELIN NASL) 2 Sprays by Nasal route 2 times daily. betamethasone, augmented, (DIPROLENE-AF) 0.05 % cream APPLY TO AFFECTED AREAS IN THIN LAYER TWICE ADAY UNTIL RESOLVED. blood sugar diagnostic (FreeStyle Lite Strips) test strip Use to test blood sugars once daily in the morning, before breakfast. blood-glucose meter misc Use to test blood sugars once daily in the morning, before breakfast. cholecalciferol (VITAMIN D-3) 125 mcg (5,000 unit) capsule Take 1 capsule (5,000 Units total) by mouth 1 (one) time each day. cloNIDine (CATAPRES) 0.1 mg tablet TAKE 1/2-1 TABLET BY MOUTH TWICE A DAY NEEDED FOR ANXIETY- ASNEEDED AND TOLERATED docusate sodium (COLACE) 100 mg capsule Take 1 capsule (100 mg total) by mouth 2 (two) times a day. EPINEPHrine (EpiPen 2-Nehemiah) 0.3 mg/0.3 mL injection Inject 1 Device as directed as needed (anaphylaxis). Use as directed famotidine (PEPCID) 20 mg tablet Take 1 tablet (20 mg total) by mouth 2 (two) times a day if neededfor heartburn. 90 tablet 1 fexofenadine (CRISTINA) 180 mg tablet Take 1 tablet by mouth daily. xlfujxhvyto-vbixbzzbjchy-sfiheayuth (Trelegy Ellipta) 100-62.5-25 mcg inhaler Inhale 1 Puff into the lungs daily for 363 days. FREESTYLE LANCETS MISC Use to test blood sugars once daily in the morning, before breakfast. ibuprofen (ADVIL,MOTRIN) 800 mg tablet ketoconazole (NIZORAL) 2 % cream Apply 1 Dose topically 2 times daily for 30 days. ketotifen (ZADITOR) 0.025 % ophthalmic solution ketotifen 0.025 % (0.035 %) eye drops levothyroxine (SYNTHROID, LEVOTHROID) 137 mcg tablet TAKE 1 TABLET BY MOUTH EVERY DAY 45 tablet 1 lidocaine (LIDODERM) 5 % patch Place 1 Patch onto the skin every 24 hours for 28 days. Apply for nomore than 12 hours in any 24 hour period. B02.29 losartan (COZAAR) 100 mg tablet TAKE 1 TABLET BY MOUTH EVERY DAY 90 tablet 0 montelukast (SINGULAIR) 10 mg tablet Take 1 Tablet by mouth at bedtime. Nucala 100 mg/mL auto-injector onabotulinumtoxinA (Botox) 200 unit injection senna (SENOKOT) 8.6 mg tablet Take 1 Tablet by mouth at bedtime. sertraline (ZOLOFT) 100 mg tablet TAKE 1 TABLET BY MOUTH EVERY DAY IN THE MORNING Stool Softener-Laxative 8.6-50 mg per tablet SUMAtriptan (IMITREX) 50 mg tablet TAKE 1 TO 2 TABLETS FOR MIGRAINE SYMPTOMS AND MAY REPEAT ONCE 2 HOURS LATER IF NEEDED tezepelumab-ekko (Tezspire) 210 mg/1.91 mL (110 mg/mL) injection Inject 210 mg into the skin every 30 days. traZODone (DESYREL) 100 mg tablet TAKE 1 TABLET EVERY NIGHT AT BEDTIME NEEDED CAN TAKE 1/2 TO ONE TABLET AT NIGHT TO HELP SLEEP triamcinolone (NASACORT) 55 mcg nasal inhaler INSTILL 1 TO 2 SPRAYS INTO EACH NOSTRIL ONCE DAILY. Trulicity 1.5 mg/0.5 mL pen injector injection Inject 0.5 mL (1.5 mg total) under the skin. UNABLE TO FIND Inhale into the lungs. [facility]-supplies only venlafaxine XR (EFFEXOR-XR) 37.5 mg 24 hr capsule [DISCONTINUED] losartan (COZAAR) 100 mg tablet Take 1 Tablet by mouth daily. No current facility-administered medications on file prior to visit. Allergies: is allergic to cefadroxil, methylprednisolone, other, penicillins, animal dander, bee pollen, cat's claw, chocolate, chocolate flavor, dog dander, house dust mite, latex, levonorgestrel-ethinyl estrad, mold, nut - unspecified, oxycodone, and rabbit epithelium allergenic extract. 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 Left 55 pounds OT Shoulder ROM: Right Left AROM PROM SHOULDER AROM WNL WNL Flexion 135 WNL WNL Scaption 140 WNL WNL Abduction 145 WNL WNL Internal Rotation To stomach WNL [...] WNL WNL WNL Radial Deviation WNL WNL Strength R UE WFL L UE 5/5 within available AROM 5/5: Normal - Full ROM and tolerates [...] jar: 3 - Moderate difficulty Do heavy relay shop tester (eg wash nazario, wash floors) : 2 - Mild difficulty Carry a shopping bag or briefcase : 3 - Moderate difficulty Wash your back : 3 - Moderate difficulty Use a knife to cut food: 1 - No difficulty Recreational activities in which you take some force or impact through your arm, shoulder or hand (eg golf, hammering, tennis, etc) : 3 - Moderate difficulty During the past week, to what extent has your arm, shoulder or hand problem interfered with your normal social activities with family, friends, neighbours or groups? : 3 - Moderately During the past week, were you limited in your work or other regular daily activities as a result of your arm, shoulder or hand problem? : 3 - Moderately limited Rate the severity of the following symptoms in the last week: Arm, shoulder or hand pain : 1 - None Tingling (pins and needles) in your arm, shoulder or hand : 2 - Mild During the past week, how much difficulty have you had sleeping because of the pain in your arm, shoulder or hand? : 2 - Mild difficulty QuickDASH Score QuickDASH Score: 34.09 Classification: Moderate Disability TREATMENT INTERVENTION Procedures: Pt performed sh flex AROM standing with back to wall for proper posture, seated B sh scaption AROM,Seated B sh abd AROM. ER AROM performed in sitting. Level 2 resistive band for IR/ER, scap retraction. AROM, office automation clerk measured as above Pain Reassessment: no pain Assessment/Response To Treatment: Good Demo improved AROM, improved fx'l use Tolerated increased resistence - moved up to level 2 GOALS Goals Addressed This Visit's Progress LTG [...] report no pain in L sh consistently Pt will participate in increased strengthening ex STG 6-8 visits On track Pt will [...] by QD score <= 65 - Met Patient Education: Education provided: Yes Education Provided To: Patient utilizing Explanation and Demonstration mode(s) of education Response to Education: Good PLAN POC Development/Review: No Change in the Plan of Care; Participants: Patient Total Treatment Time: 45 TOTAL TREATMENT TIME: 45 Minutes Documentation completed by Chema Martins OT documented in this encounter Plan of Treatment Upcoming Encounters Date Type Department Care Team (Late st Contact Info) Description 04/11/2024 9:45 AM EST Office Visit Endocrinology [address] [phone] Jayesh Pineda MD 5 [place] [address] 05/28/2024 9:45 AM EDT Office Visit Adult Medicine [address], [place] [phone] Ora Sweeney MD [address] [place] [address] 06/04/2024 10:30 AM EDT Consult Bariatric Surgery [facility] [address] [phone] Lita Verde PA [address] [address] 06/04/2024 11:45 AM EDT Office Visit Orthopedic Surgery [facility] [address] [phone] Luis Armando Eller MD [address] [address] 06/05/2024 9:45 AM EDT Office Visit Orthopedic Surgery [facility] [address] [phone] Duke Dunn, DPJohan [address] [address] 06/06/2024 2:30 PM EDT Office Visit Obstetrics and Gynecology [address] [phone] Stacie Martinez, [address] [address] 06/30/2024 10:30 AM EDT Office Visit Orthopedic Surgery [facility] [address] [phone] Luis Armando Eller MD [address] [address] 07/02/2024 9:30 AM EDT Office Visit Orthopedic Surgery [facility] 250 175 [address] [place] [address] Lorie Moore NP 175 [facility] 250 [place] [address] 09/22/2024 8:45 AM EDT Office Visit Pulmonolgy - [place] 175 [facility] 200 [place] [address] Pretty Le MD 175 [facility] 200 [place] [address] documented as of this encounter Visit Diagnoses Diagnosis Rotator cuff tear arthropathy of left shoulder- Primary documented in this encounter Care Teams Racing Manager Relationship Specialty Start Date End Date Ora Sweeney MD 4 [place] [address] PCP - General Internal Medicine 01/09/24 documented as of this encounter
--- OUTSIDE RECORDS SUMMARY | 2024-04-11 08:00 | XMS_ITS | Encounter Summary ---
Author Organization [facility] Address [address] [place] [address] Care Team Providers Care Housing And Residence Life Director Name Role Phone Ora Sweeney MD Primary Care Prov ider Reason for Visit * Consultation (Elective) - Authorized Specialty Diagnoses / Procedures Referred By Janie castillo Referred To Contact Occupational Therapy Diagnoses S/P left rotator cuff repair Luis Armando Eller MD 175 [facility] 160 [place] [address] [facility] Occupational Therapy [address] [address] Referral ID Status Reason Start Date Expiration Date Visits Requested Visits Authorized [id number] Authorized Specialty Services Required 01/08/2025 21 21 Encounter Details Date Type Department Care Team (Late st Contact Info) Description 03/18/2024 1:00 PM EST Treatment [facility] Occupational Therapy [address] [phone] Lisa Jones COTA Social History [...] care for your loved ones. For example, vocational childcare teacher or elderly care for an older [...] encounter Progress Notes * QUANG Hoffman - 03/18/2024 1:00 PM EST [facility] - Outpatient OCCUPATIONAL THERAPY DAILY TREATMENT NOTE Date: 03/18/2024 Visit Number: 14 Patient Name: Ana Luisa House : 1960 Age: 63 y.o. Gender: female Diagnosis: No diagnosis found. Date of Onset: 12/06/2023 Referring Provider: Luis Armando Eller MD Insurance: Payor: [employer] ADVANTAGE / Plan: [facility] OPTIONS / Product Type: *No Product type* / Language: Speaks and understands Sri Lankan as preferred language with no healthcare interpreter required Allergies: is allergic to cefadroxil, methylprednisolone, other, penicillins, animal dander, bee pollen, cat's claw, chocolate, chocolate flavor, dog dander, house dust mite, latex, levonorgestrel-ethinyl estrad, mold, nut - unspecified, oxycodone, and rabbit epithelium allergenic extract. Precautions: Phase 4 02/27 - 03/13/24 Begin light resistence SUBJECTIVE Subjective Report:pain is better Pain: 03/21 TREATMENT INTERVENTION Procedures: Pt performed sh flex AROM standing with back to wall for proper posture, seated B sh scaption AROM,Seated B sh abd AROM. ER AROM performed in sitting. Level 1 resistive band for IR/ER, scap retraction. Theract- for increased ROM patient participated in reaching task utilizing weighted clips red/green Pain Reassessment: no c/o increase pain Assessment/Response To Treatment: Good Tolerated exercises Patient Education: Education provided: Yes Education Provided [...] 9:45 AM EST Office Visit Endocrinology - [address] [phone] Jayesh Pineda MD 5 [place] [phone] 05/28/2024 9:45 AM EDT Office Visit Adult Medicine [facility] [address] [place] [address] Ora Sweeney MD 444 [place] [address] 06/04/2024 10:30 AM EDT Consult Bariatric Surgery [facility] [address] [phone] Lita Verde PA [address] [address] 06/04/2024 11:45 AM EDT Office Visit Orthopedic [facility] [address] [phone] Luis Armando Eller MD [address] [address] 06/05/2024 9:45 AM EDT Office Visit Orthopedic Surgery [facility] [address] [phone] Duke Dunn DPJohan [address] [address] 06/06/2024 2:30 PM EDT Office Visit Obstetrics and Gynecology [address] [phone] Stacie Martinez, [facility] [address] [place] [address] 06/30/2024 10:30 AM EDT Office Visit Orthopedic Surgery [facility] [address] [phone] Luis Armando Eller MD [address] [address] 07/02/2024 9:30 AM EDT Office Visit Orthopedic Surgery - [place] 250 175 [facility] 250 [place] [address] Lorie Moore NP 175 [facility] 250 [place] [address] 09/22/2024 8:45 AM EDT Office Visit Pulmonolgy - [place] 175 [facility] 200 [place] [address] Pretty Le MD 175 [facility] 200 [place] [address] documented as of this encounter Visit Diagnoses Not on filedocumented in this encounter Care Teams Housing And Residence Life Director Relationship Specialty Start Date End Date Ora Sweeney MD [address] [place] [address] PCP - General Internal Medicine 01/09/24 documented as of this encounter
--- OUTSIDE RECORDS SUMMARY | 2024-04-11 08:00 | XMS_ITS | Encounter Summary ---
Author Organization [facility] Address [address] [place] [address] Care Team Providers Care Aircraft Cleaning Supervisor Name Role Phone Ora Sweeney MD Primary Care Prov ider Reason for Visit * Consultation (Elective) - Authorized Specialty Diagnoses / Procedures Referred By Janie castillo Referred To Contact Occupational Therapy Diagnoses S/P left rotator cuff repair Luis Armando Eller MD 175 [facility] 160 [place] [address] [facility] Occupational Therapy 175 [facility] 350 [place] [address] Referral ID Status Reason Start Date Expiration Date Visits Requested Visits Authorized [id number] Authorized Specialty Services Required 01/08/2025 21 21 Encounter Details Date Type Department Care Team (Late st Contact Info) Description 03/13/2024 9:30 AM EST Treatment [facility] Occupational Therapy [address] [phone] Morris Melo COTA/Raul Rotator cuff tear arthropathy [...] care for your loved ones. For example, childcare center director or elderly care for an older adult? [...] as of this encounter Progress Notes * GIN Mcintosh 03/13/2024 9:30 AM EST [facility] - Outpatient OCCUPATIONAL THERAPY DAILY TREATMENT NOTE Date: 03/13/2024 Visit Number: 13 Patient Name: Ana Luisa House : 1960 Age: 63 y.o. Gender: female Diagnosis: ICD-10-CM ICD-9-CM 1. Rotator cuff tear arthropathy of left shoulder M75.102 716.81 M12.812 Date of Onset: 12/06/2023 Referring Provider: Luis Armando Eller MD Insurance: Payor: [employer]VANTAGE / Plan: [employer] [facility] OPTIONS / Product Type: *No Product type* / Medications: Current Outpatient Medications on File Prior [...] tablet Take 1 tablet by mouth daily. utfattpdyrh-uedkjnokbrmy-crxkihhbnc (Trelegy Ellipta) 100-62.5-25 mcg inhaler Inhale 1 Puff into the lungs daily for 363 days. FREESTYLE LANCETS [facility] Use to test blood sugars once daily [...] period. B02.29 losartan (COZAAR) 100 mg tablet Take 1 Tablet by mouth daily. montelukast (SINGULAIR) 10 mg tablet Take 1 [...] UNABLE TO FIND Inhale into the lungs. [facility]-supplies only venlafaxine XR (EFFEXOR-XR) 37.5 mg 24 hr capsule No current facility-administered medications on file prior to visit. Allergies: is allergic to cefadroxil, methylprednisolone, other, penicillins, animal dander, bee pollen, cat's claw, chocolate, chocolate flavor, dog dander, house dust mite, latex, levonorgestrel-ethinyl estrad, mold, nut - unspecified, oxycodone, and rabbit epithelium allergenic extract. Precautions: Phase 4 02/27 - 03/13/24 Begin light resistence SUBJECTIVE Subjective Report: my arm is just siff still Chart Reviewed: Yes Pain: No pain just stiff TREATMENT INTERVENTION Procedures: Therex- Pt performed sh flex AROM standing with back to wall for proper posture, seated B sh scaption AROM,Seated B sh abd AROM. ER AROM performed in sitting. Level 1 resistive band for IR/ER, scap retraction. Theract- for increased ROM patient participated in reaching task utilizing weighted clips red/green Assessment/Response To Treatment: Good Patient able to perform inclinded exercises on this date utilizing bench. Patient stated that her shoulder is feeling a little better than previous session but still not back to what it was. Patient Education: Education provided: Yes Education Provided To: Patient utilizing Explanation mode(s) of education Response to Education: Good PLAN POC Development/Review: No Change in the Plan of Care; Participants: Patient Equipment Recommended: none; Equipment Provided: none Total Treatment Time: 45 TOTAL TREATMENT TIME: 45 Minutes Documentation completed by GIN Mcintosh documented in this encounter Plan of Treatment Upcoming Encounters Date Type Department Care Team (Late st Contact Info) Description 04/11/2024 9:45 AM EST Office Visit Endocrinology [address] [phone] Jayesh Pineda MD 5 [place] [address] 05/28/2024 9:45 AM EDT Office Visit Adult Medicine East - [address] [phone] Ora Sweeney MD 4 [place] [address] 06/04/2024 10:30 AM EDT Consult Bariatric Surgery [facility] [address] [phone] Lita Verde PA [address] [address] 06/04/2024 11:45 AM EDT Office Visit Orthopedic Surgery [facility] [address] [phone] Luis Armando Eller MD [address] [address] 06/05/2024 9:45 AM EDT Office Visit Orthopedic Surgery [facility] 250 175 [facility] 250 [place] [phone] Duke Dunn DPM [address] [address] 06/06/2024 2:30 PM EDT Office Visit [facility]s [facility] 444 [place] [address] Stacie Martinez, [facility] 444 [place] [address] 06/30/2024 10:30 AM EDT Office Visit Orthopedic Surgery [facility] 160 175 [facility] 160 [place] [phone] Luis Armando Eller MD 175 [facility] 160 [place] [address] 07/02/2024 9:30 AM EDT Office Visit Orthopedic Surgery [facility] 250 175 [facility] 250 [place] [phone] Lorie Moore NP [address] [address] 09/22/2024 8:45 AM EDT Office Visit Pulmonolgy - [place] 175 [facility] 200 [place] [phone] Pretty Le MD 175 [facility] 200 [place] [address] documented as of this encounter Visit Diagnoses Diagnosis Rotator cuff tear arthropathy of left shoulder- Primary documented in this encounter Care Teams Aircraft Cleaning Supervisor Relationship Specialty Start Date End Date Ora Sweeney MD 4 [place] [address] PCP - General Internal Medicine 01/09/24 documented as of this encounter
--- NOTE | 2024-04-11 11:40 | MHC.OFFVISWM ---
VS Expanded 04/11/24 12:00 Height 5 ft 3 in Weight 271 lb 6 oz BMI 48.1 Body Fat % 46.1 Body Fat Mass 125 Fat Free Mass 146.4 Visceral Fat Rating 18 Body Water % 38.3 Body Water Mass 103.8 Basal Metabolic Rate/Score 2,055 Intake Visit Reasons: TV [facility] MWL vs SWL BMI 48.1 [place]ergies [place] [facility] [place] Allergy (Verified 04/11/24 11:40) Unknown Penicillins Allergy (Verified 04/11/24 11:40) Unknown Medication List - Last Reconciled 04/11/24 by Randy Domínguez MD albuterol sulfate 90 mcg/actuation inhalation albuterol sulfate 90 mcg/actuation (Ventolin HFA) 2 puffs inhalation Q6H PRN amlodipine (Norvasc) 10 mg PO DAILY ammonium lactate 5% 1 appl topical DAILY atorvastatin 20 mg PO DAILY cholecalciferol (vitamin D3) 125 mcg PO DAILY clonidine HCl mg PO docusate sodium 100 mg PO BID dulaglutide (Trulicity) 1.5 mg subcut QWEEK epinephrine (EpiPen) 0.3 mg IM Q10M PRN famotidine mg PO fenofibrate 50 mg PO DAILY fexofenadine 180 mg PO DAILY fluticasone propionate 50 mcg/actuation intranasal levothyroxine 125 mcg PO DAILY losartan 100 mg PO DAILY mepolizumab mg subcut montelukast 10 mg PO DAILY sennosides mg PO sertraline 100 mg PO DAILY sumatriptan succinate May take 100mg at the onset of a headache and then also you may take another 100mg PO if headache does not abort 2 hours later. Do not exceed 200mg within a 24 hour period. tiotropium bromide 1.25 mcg/actuation inhalation trazodone 100 mg PO venlafaxine ER (Effexor XR) 37.5 mg PO BEDTIME HPI HPI TV [facility] MWL vs SWL BMI 48.1: Details: Start time: 11.35am, End time: 12.25pm ?I spent 45 minutes speaking with the patient on the phone plus an additional 5 minutes reviewing and updating records for a total of 50 minutes HPI Comments Details: Previous weight loss efforts: Herbalife, WW, Atkins diet, WMP program Wakes up: 6am, Sleeps: 10.30pm Breakfast: 7.30am (3 eggs and toast, cereal) Lunch: 12pm (salad with chicken) Dinner: 6.30pm (rice, chicken, pork, greens) Snacks: 4pm (granola bar with yogurt), 9pm (fruit, yogurt) Exercise: hand bike Fluids: Coffee (1 cup/day with stevia), tea: (1 cup with honey), soda: regular Pepsi/coke, juice: Iron juice: 1 cup/day), ETOH: none PFSH Medical History (Updated 04/11/24 @ 11:51 by Randy Domínguez MD) Migraines Anxiety Depression Obstructive sleep apnea on CPAP Transient visual loss Cognitive and behavioral changes Loss of vision Paroxysmal hemicrania Chronic migraine with aura Constipation Insomnia DJD (degenerative joint disease) Hypothyroidism Stress incontinence GERD (gastroesophageal reflux disease) Hyperlipidemia Sleep apnea Asthma Hypertension Surgical History (Updated 04/11/24 @ 11:51 by Randy Domínguez MD) History of delivery History of rotator cuff surgery Morbid obesity History of bladder suspension procedure Hx of hernia repair History of mandibular surgery Family History Mother Alzheimer disease Pulmonary emphysema Diabetes Asthma Father Diabetes Hypertension Pacemaker Sister Diabetes Sister Diabetes Brother Hypertension Brother No problems noted. Daughter Asthma Social History (Updated 04/01/24 @ 11:32 by Isabel Travis CMA) Alcohol intake: never Patient Tobacco Use Status: Never used Tobacco Advance Directives Date on File: 12/15/19 Telehealth Telehealth Telehealth Platform: Telephone Location of provider rendering services: practice address Location of patient: address on file Patient Identification confirmed using: Name, : Yes Telehealth method: voice only Patient verbally consented to treatment: Yes Patient verbally consented to billing insurance company: Yes Patient informed of any privacy concerns related to visit: Yes Minutes spent on Phone/Video with Pt.: 50 Assessment & Plan Assessment & Plan (1) Morbid obesity: Code(s): E66.01 - Morbid (severe) obesity due to excess calories Category: Surgical Plan: 1.? Plan for lap sleeve gastrectomy. If diaphragmatic or ventral hernias are present at time of surgery, these will be repaired laparoscopically as well. I emphasized the importance of close follow-up, adherence to instructions and good communication. The surgery does not replace the need to change your lifestlyle which is the cause of the obesity problem. The surgery provides the motivation to try again to change your lifestyle, it reduces the appetite and make the transition to a better lifestyle easier and doubles the amount of weight you would lose compared to doing the lifestyle change without the surgery. You will need to be on a liquid diet with protein shakes for 2 weeks before surgery to maximize weight loss and boost your nutritional status to recover better from surgery and also for the first two weeks after surgery to let the stomach heal before we introduce other foods. After the first 2 weeks we will introduce protein bars and soft foods like scrambled eggs, cottage cheese and yogurt and after the 6th week will introduce meat, fish and cooked vegetables in small amounts. Over time you should be able to eat everything in small amounts. Side effects like nausea, vomiting, heartburn or abdominal pain are not common in the practice unless you are not following in the practice. This operation requires lifetime commitment to following in our practice and communication with me. You will much less weight and experience side effects if you don?t communicate or not following in the practice. Complications are rare and in our practice is about 1/10 of the national average. However, you can develop bleeding that may require transfusion (hasn?t happened for year in the practice), you may from complications (we did not have any deaths in the practice) and infections. Infections are usually a result of breakdown in communication or not understanding or following directions correctly. They are difficult to treat, they can happen during the first 6 weeks, they may require to be in the hospital for weeks or even months, not being able to eat by mouth and you may have drains and surgeries to try and correct the issue. Other risks and complications include possible conversion to an open procedure, leaks, small bowel obstruction, blood clots, cardiac, or pulmonary complications, as intermediate complications such as ulcers, insufficient weight loss and vitamin deficiencies. 2. You will receive a link of our software gina to generate an individualized nutritional and exercise plan specific for you. Please send me a screenshot of the plans you will generate Meal to include lean meat (beef, fish, pork, turkey, chicken), or mongolian yogurt, or egg whites, or beans with a salad with olive oil and fruits (berries, pears, apples, kiwi). Avoid salt, breads, potatoes, rice, pasta, desserts. ?3. If you choose shakes, each shake would be drunk slowly, like coffee in a period of 2 hours. ?4. If you choose bars, cut each bar in 4 pieces and eat each piece in 30min ?to make each bar last 2 hours. ?5. I emphasized the importance of measuring accurately the food portion and measure it when serving the food in plate ?6. The meal portions include a specific number of forks of meat and salad. You always eat the meat portion but you can replace up to half of salad/vegetables portion with rice, potatoes or pasta, or a fruit ?if you like. The less you do it the better weight loss will be. ?7. One full-size fork is what it can be scooped on the fork without falling aside and not what can be bit with the fork. Use regular forks like those you find in a typical restaurant. ?8.? Please buy the body composition scale we discussed and send me weight measurements as soon as possible and then once a week. Always include your diet and exercise plan. 9. The best choice would be to purchase a stationary bike, elliptical or treadmill at home that can track calories. Let me know if you do so I can give you an exercise plan. ?10.?It is important of avoiding and for at least 18 months postoperatively and has been discussed at the infosession. ?11. Goal is to lose at least 1.5-2lbs per week ?12. Goal to lose 10% of your weight before surgery, which is about 27lbs. Ultimate weight goal: 244lbs before surgery 13. Please follow the diet plan exactly without any change. If you don't like something about the plan or you feel hungry you need to communicate with me so I can help you revise the plan. You should not change the plan yourself. 14. To be scheduled for EGD due to the history of sleeve gastrectomy and anemia. The possibility of biopsies was discussed. Patient needs to avoid use of NSAIDs and aspirin for 1 week prior to EGD. You must be on liquids only the day before your endoscopy. Risks of perforation and bleeding was discussed with the patient. This will be an outpatient procedure with IV sedation.
[2024-04-11 12:00] VITALS: BMI 48.1
== END 2024-04-11 12:25 | disposition home or self-care (01) ==
LOC: HO.HBS 07:56
PROVIDERS: PCP Internal Medicine; Visit Provider Surgery
DX: E66.813 Obesity, class 3 (principal); Z68.42 Body mass index [BMI] 45.0-49.9, adult
CPT/HCPCS: 98015

== ENCOUNTER → 2024-04-11 07:56 | Outpatient (BNVA) | payer MEDICARE, OTHER, SELFPAY | PROVIDERS: PCP Internal Medicine; Visit Provider Surgery ==

== ENCOUNTER 2024-04-15 12:06 | Day surgery (SDC) | payer OTHER, SELFPAY ==
--- NOTE | 2024-04-14 08:48 | HO.ANESPROP2 ---
Documented by User: Danielle Dickinson NP 04/14/24 08:49 HPI - Anesthesia Eval Consult details Narrative: 63yo F for Upper Endoscopy Anesthesia Pre-Procedure Meds Is the patient on any of the following meds?: GLP1/DPP4 PMFSH Active Problems Active Problems: All Active Problems Migraines (Acute) Anxiety (Acute) Depression (Acute) Obstructive sleep apnea on CPAP (Acute) Cervicalgia (Acute) Hx of migraines (Acute) Transient visual loss (Acute) Cognitive and behavioral changes (Acute) Loss of vision (Acute) Paroxysmal hemicrania (Acute) Chronic migraine with aura (Acute) Abnormal EKG (Acute) Preop pulmonary/respiratory exam (Acute) Angiolipoma of right kidney (Acute) Hypercalcemia (Acute) Constipation (Acute) Insomnia (Acute) DJD (degenerative joint disease) (Acute) Hypothyroidism (Acute) Stress incontinence (Acute) GERD (gastroesophageal reflux disease) (Acute) Hyperlipidemia (Acute) Sleep apnea (Acute) Asthma (Acute) Hypertension (Acute) Morbid obesity (Acute) Past Medical History Medical History Migraines Anxiety Depression Obstructive sleep apnea on CPAP Transient visual loss Cognitive and behavioral changes Loss of vision Paroxysmal hemicrania Chronic migraine with aura Constipation Insomnia DJD (degenerative joint disease) Hypothyroidism Stress incontinence GERD (gastroesophageal reflux disease) Hyperlipidemia Sleep apnea Asthma Hypertension Family History Family History Mother Alzheimer disease Pulmonary emphysema Diabetes Asthma Father Diabetes Hypertension Pacemaker Sister Diabetes Sister Diabetes Brother Hypertension Brother No problems noted. Daughter Asthma Surgical History Surgical History History of delivery History of rotator cuff surgery Morbid obesity History of bladder suspension procedure Hx of hernia repair History of mandibular surgery Social History Social History Alcohol intake: never Patient Tobacco Use Status: Never used Tobacco Use of substances other than those prescribed or required for medical reasons: No Are you DNR?: No Advance Directives: No Advance Directives Information Provided: Yes Advance Directives Date on File: 12/15/19 Meds Allergies Allergy/AdvReac Type Severity Reaction Status Date / Time latex Allergy Severe Clark skin Verified 04/15/24 12:44 cefadroxil [From [facility]] Allergy Unknown Verified 04/15/24 12:44 Penicillins Allergy Unknown Verified 04/15/24 12:44 Home Medications ?Medication ?Instructions ?Recorded ?Confirmed ?Last Taken ?Type albuterol sulfate 90 mcg/actuation inhalation 02/03/20 04/11/24 Unknown History aerosol inhaler atorvastatin 20 mg tablet 20 mg PO DAILY 02/03/20 04/15/24 Unknown History cholecalciferol (vitamin D3) 125 125 mcg PO DAILY 02/03/20 04/15/24 Unknown History mcg (5,000 unit) capsule docusate sodium 100 mg capsule 100 mg PO BID 02/03/20 04/15/24 Unknown History fluticasone propionate 50 intranasal 02/03/20 04/11/24 Unknown History mcg/actuation nasal spray,suspension levothyroxine 125 mcg tablet 125 mcg PO DAILY 02/03/20 04/15/24 04/15/24 History mepolizumab 100 mg/mL subcutaneous mg subcut 02/03/20 04/11/24 Unknown History auto-injector montelukast 10 mg tablet 10 mg PO DAILY 02/03/20 04/15/24 Unknown History sennosides 8.6 mg tablet mg PO 02/03/20 04/11/24 Unknown History tiotropium bromide 1.25 inhalation 02/03/20 04/11/24 Unknown History mcg/actuation mist for inhalation amlodipine 10 mg tablet (Norvasc) 10 mg PO DAILY 01/21/24 04/15/24 Unknown History sertraline 100 mg tablet 100 mg PO DAILY 01/21/24 04/15/24 Unknown History sumatriptan succinate 25 mg tablet 50 mg PO .COMPLEX migraines 03/24/24 04/15/24 Unknown History albuterol sulfate 90 mcg/actuation 2 puff inhalation Q6H PRN SOB 04/01/24 04/15/24 Unknown History aerosol inhaler (Ventolin HFA) ammonium lactate 5 % lotion 1 appl topical DAILY 04/01/24 04/15/24 Unknown History clonidine HCl 0.1 mg tablet mg PO 04/01/24 04/11/24 Unknown History dulaglutide 1.5 mg/0.5 mL 1.5 mg subcut QWEEK 04/01/24 04/15/24 Unknown History [facility] epinephrine 0.3 mg/0.3 mL 0.3 mg IM Q10M PRN Anaphylaxis 04/01/24 04/15/24 Unknown History injection, auto-injector (EpiPen) famotidine 20 mg tablet mg PO 04/01/24 04/11/24 Unknown History fenofibrate 50 mg capsule 50 mg PO DAILY 04/01/24 04/15/24 Unknown History fexofenadine 180 mg tablet 180 mg PO DAILY 04/01/24 04/15/24 Unknown History losartan 50 mg tablet 100 mg PO DAILY 04/01/24 04/15/24 04/15/24 History trazodone 50 mg tablet 100 mg PO 04/01/24 04/11/24 Unknown History Assessment and Plan Assessment Anesthesia Assessment: Chart Reviewed Documented by User: Madyson Dickey MD 04/15/24 13:02 COUNT INCLUDES THE [facility] Past Medical History Medical History Migraines Anxiety Depression Obstructive sleep apnea on CPAP Transient visual loss Cognitive and behavioral changes Loss of vision Paroxysmal hemicrania Chronic migraine with aura Constipation Insomnia DJD (degenerative joint disease) Hypothyroidism Stress incontinence GERD (gastroesophageal reflux disease) Hyperlipidemia Sleep apnea Asthma Hypertension Family History Family History Mother Alzheimer disease Pulmonary emphysema Diabetes Asthma Father Diabetes Hypertension Pacemaker Sister Diabetes Sister Diabetes Brother Hypertension Brother No problems noted. Daughter Asthma Surgical History Surgical History History of delivery History of rotator cuff surgery Morbid obesity History of bladder suspension procedure Hx of hernia repair History of mandibular surgery History of Problems with Anesthesia: No Social History Social History Alcohol intake: never Patient Tobacco Use Status: Never used Tobacco Use of substances other than those prescribed or required for medical reasons: No Are you DNR?: No Advance Directives: No Advance Directives Information Provided: Yes Advance Directives Date on File: 12/15/19 Meds Allergies Allergy/AdvReac Type Severity Reaction Status Date / Time latex Allergy Severe Clark skin Verified 04/15/24 12:44 [place] [facility] [place] Allergy Unknown Verified 04/15/24 12:44 Penicillins Allergy Unknown Verified 04/15/24 12:44 Home Medications ?Medication ?Instructions ?Recorded ?Confirmed ?Last Taken ?Type albuterol sulfate 90 mcg/actuation inhalation 02/03/20 04/11/24 Unknown History aerosol inhaler atorvastatin 20 mg tablet 20 mg PO DAILY 02/03/20 04/15/24 Unknown History cholecalciferol (vitamin D3) 125 125 mcg PO DAILY 02/03/20 04/15/24 Unknown History mcg (5,000 unit) capsule docusate sodium 100 mg capsule 100 mg PO BID 02/03/20 04/15/24 Unknown History fluticasone propionate 50 intranasal 02/03/20 04/11/24 Unknown History mcg/actuation nasal spray,suspension levothyroxine 125 mcg tablet 125 mcg PO DAILY 02/03/20 04/15/24 04/15/24 History mepolizumab 100 mg/mL subcutaneous mg subcut 02/03/20 04/11/24 Unknown History auto-injector montelukast 10 mg tablet 10 mg PO DAILY 02/03/20 04/15/24 Unknown History sennosides 8.6 mg tablet mg PO 02/03/20 04/11/24 Unknown History tiotropium bromide 1.25 inhalation 02/03/20 04/11/24 Unknown History mcg/actuation mist for inhalation amlodipine 10 mg tablet (Norvasc) 10 mg PO DAILY 01/21/24 04/15/24 Unknown History sertraline 100 mg tablet 100 mg PO DAILY 01/21/24 04/15/24 Unknown History sumatriptan succinate 25 mg tablet 50 mg PO .COMPLEX migraines 03/24/24 04/15/24 Unknown History albuterol sulfate 90 mcg/actuation 2 puff inhalation Q6H PRN SOB 04/01/24 04/15/24 Unknown History aerosol inhaler (Ventolin HFA) ammonium lactate 5 % lotion 1 appl topical DAILY 04/01/24 04/15/24 Unknown History clonidine HCl 0.1 mg tablet mg PO 04/01/24 04/11/24 Unknown History dulaglutide 1.5 mg/0.5 mL 1.5 mg subcut QWEEK 04/01/24 04/15/24 Unknown History subcutaneous pen injector (Trulicity) epinephrine 0.3 mg/0.3 mL 0.3 mg IM Q10M PRN Anaphylaxis 04/01/24 04/15/24 Unknown History injection, auto-injector (EpiPen) famotidine 20 mg tablet mg PO 04/01/24 04/11/24 Unknown History fenofibrate 50 mg capsule 50 mg PO DAILY 04/01/24 04/15/24 Unknown History fexofenadine 180 mg tablet 180 mg PO DAILY 04/01/24 04/15/24 Unknown History losartan 50 mg tablet 100 mg PO DAILY 04/01/24 04/15/24 04/15/24 History trazodone 50 mg tablet 100 mg PO 04/01/24 04/11/24 Unknown History Exam Airway Mallampati Class: III TM Dist: >3cm Neck ROM: Full Loose/Missing/Broken Teeth: No Heart: RRR Lungs: CTA Assessment and Plan Assessment Anesthesia Assessment: Anesthesia Plan Discussed Final Anesthetic Review History of Problems with Anesthesia: No NPO: Yes ASA Class: III Final Preanesthetic Review: Meds/Allgs Chart Reviewed, Consent Obtained/Reviewed and Anes Risks/Benef Reviewed Patient Risk: Intermediate Procedure Risk: Intermediate Anesthetic Plan Anesthetic Plan: MAC: Disposition: Standard PACU
[2024-04-15 12:33] VITALS: BMI 48.5
[2024-04-15 12:40] VITALS: BP 152/69; PULSE 69; RESP 16; TEMP 37.4; O2SAT 95
--- OUTSIDE RECORDS SUMMARY | 2024-04-15 12:51 | XMS_ITS | Encounter Summary ---
Author Organization [facility] Address [address] [place] [address] Care Team Providers Care Roofing Foreman Name Role Phone Ora Sweeney MD Primary Care Prov ider Reason for Visit * Reason Comments DM Foot Care Encounter Details Date Type Department Care Team (Late st Contact Info) Description 04/03/2024 9:45 AM EST Office Visit Orthopedic Surgery - [place] [address] [phone] Duke Dunn, DPJohan [address] [address] Controlled type 2 diabetes with neuropathy (CMS/HCC) [...] for your loved ones. For example, child therapist or elderly care for an older adult? [...] Sharp/dull sensation intact, protective sensation intact on [place]. Multiple peripheral neuropathies bilateral lower extremity ORTHOPEDIC: [...] Care Team (Late st Contact Info) Description 05/28/2024 9:45 AM EDT Office Visit Adult Medicine [address] [phone] Ora Sweeney MD [address] [place] [address] 06/04/2024 10:30 AM EDT Consult Bariatric Surgery [facility] [address] [phone] Lita Verde PA [address] [address] 06/04/2024 11:45 AM EDT Office Visit Orthopedic Surgery [facility] [address] [phone] Luis Armando Eller MD [address] [address] 06/05/2024 9:45 AM EDT Office Visit Orthopedic [facility] [address] [phone] Duke Dunn DPM [address] [address] 06/06/2024 2:30 PM EDT Office Visit Obstetrics and Gynecology [address] [phone] Stacie Martinez CNM [address] [place] [address] 06/30/2024 10:30 AM EDT Office Visit Orthopedic Surgery - [place] 160 175 [facility] 160 [place] [phone] Luis Armando Eller MD 175 [facility] 160 [place] [address] 07/02/2024 9:30 AM EDT Office Visit Orthopedic Surgery - [place] 250 175 [facility] 250 [place] [phone] Lorie Moore NP 175 [facility] 250 [place] [address] 07/09/2024 9:30 AM EDT Office Visit Endocrinology [address] [phone] Jayesh Pineda MD 5 [place] [address] 09/22/2024 8:45 AM EDT Office Visit Pulmonolgy - [place] 175 [facility] 200 [place] [phone] Pretty Le MD 175 [facility] 200 [place] [address] documented as of this encounter Visit Diagnoses Diagnosis Controlled type 2 diabetes with neuropathy ([facility]/HCC)- Primary Type II or unspecified type diabetes mellitus with neurological manifestations, not stated as uncontrolled PVD (peripheral vascular disease) (CMS/HCC) Unspecified peripheral vascular disease Pain in both feet Difficulty walking Difficulty in walking Dermatophytosis, nail Dermatophytosis of nail documented in this encounter Care Teams Roofing Foreman Relationship Specialty Start Date End Date Ora Sweeney MD [address] [place] [address] PCP - General Internal Medicine 01/09/24 documented as of this encounter
--- NOTE | 2024-04-15 12:52 | P.HPSUR_ITS ---
Pre-Procedural Eval Section A - 24 Hr Update-Section A only Date of Service: 04/15/24 The patient is an INPATIENT: No The patient has been examined within 24 hours of the surgical procedure. The History & Physical has been completed within 30 days and I have reviewed it.: Yes Section B - Complete if H&P > 30 days Chief Complaint: Gastro-esophageal reflux disease without esophagit Relevant Family History (Specify if Yes): No Relevant Social History: None Present Medications: None Medical History: No relevant PMH History of Previous Operations: No relevant previous surgery Allergies: Allergies Allergy/AdvReac Type Severity Reaction Status Date / Time latex Allergy Severe Clark skin Verified 04/15/24 12:44 cefadroxil [From Duricef] Allergy Unknown Verified 04/15/24 12:44 Penicillins Allergy Unknown Verified 04/15/24 12:44 Review of Systems Sugical H&P ROS: Negative: Constitution, Cardiovascular, Respiratory, Neurological, Psychiatric, Hem-Onc, Allergic/Immunologic, Gastrointestinal, Genitourinary, Musculoskeletal, Integumentary, Endocrine and Eyes/Ears/Nose/Throat Exam Surgical H&P Exam: Normal: HEENT, Normal: Heart, Normal: Lungs, Normal: Ext remities, Normal: Abdomen, Normal: Skin and Normal: Neurological Plan Diagnosis/Plan: Unchanged (EGD to assess etiology of GERD. Risks of bleeding and perforation were discussed with the patient and she is in agreement with the plan.) I have reviewed the history and physical and performed a pertinent physical examination on my patient. No changes have occurred unless specified. Time Spent With Patient Time: Total time managing care of this patient today ____ minutes.
--- OUTSIDE RECORDS SUMMARY | 2024-04-15 12:52 | XMS_ITS | Encounter Summary ---
Author Organization [facility] Address [address] [place] [address] Care Team Providers Care Ply Splicer Name Role Phone Ora Sweeney MD Primary Care Prov ider Reason for Visit * Reason Comments Follow-up Encounter Details Date Type Department Care Team ([facility] st Contact Info) Description 03/26/2024 9:45 AM EST Office Visit Orthopedic Surgery - [place] 160 175 [facility] [address] [place] [phone] Luis Armando Eller MD 175 [facility] 160 [place] [address] S/P left rotator cuff repair (Primary Dx) [...] care for your loved ones. For example, attendant children's institution or elderly care for an older adult? [...] Asthma- chronic obstructive pulmonary disease overlap syndrome ([facility]/HCC) (01/30/2022), Class 3 severe obesity due to excess calories with serious comorbidity and body mass index (BMI) of 40.0 to 44.9 in adult ([facility]/HCC) (07/15/2019), COVID-19, CTS (carpal tunnel syndrome), Depression, Depressive disorder, Diabetes mellitus ([facility]), Diabetes mellitus type 2, controlled, without complications ([facility]) (02/16/2021), Family history of colon cancer, Fatty liver, Gastroesophageal reflux disease without esophagitis (08/30/2015), HLD (hyperlipidemia) (11/21/2021), Hypertension, Hypothyroid, Migraines, Mild concentric left ventricular hypertrophy (08/23/2021), Morbid obesity with BMI of 40.0-44.9, adult ([facility]), Multiple thyroid nodules, Nonalcoholic fatty liver disease (04/12/2015), Obesity with alveolar hypoventilation ([facility]/HCC), VIRGIE on CPAP, Osteoarthritis, Overactive bladder, Pain [...] colon polyp: Tubular adenoma. ESOPHAGOGASTRODUODENOSCOPY 09/22/2021 PROCEDURE: HI EGD TRANSORAL BIOPSY SINGLE/MULTIPLE; COMMENT: EGD including biopsy normal EXCISION BENIGN SKIN LESION TRUNK / ARM / LEG PROCEDURE: HI EXCISION TUMOR SOFT TISSUE BACK/FLANK SUBQ <3CM; COMMENT: Lipomas removed HERNIA REPAIR PROCEDURE: HISTORICAL HERNIA REPAIR/ING KNEE ARTHROSCOPY Right PROCEDURE: HI ARTHROSCOPY KNEE DIAGNOSTIC W/WO SYNOVIAL BX SPX OTHER SURGICAL HISTORY PROCEDURE: HI BIOPSY THYROID PERCUTANEOUS CORE NEEDLE OTHER SURGICAL HISTORY PROCEDURE: CYSTOSCOPY/SURG, URETHRA/BLAD NECK; COMMENT: sling procedure for stress incontinence OTHER SURGICAL HISTORY Right 08/25/2015 PROCEDURE: HI EXCISION NAIL MATRIX PERMANENT REMOVAL; COMMENT: right hallux Dr. Rangel OTHER SURGICAL HISTORY PROCEDURE: HISTORY OTHER; COMMENT: Maxillofacial surgery ROTATOR CUFF REPAIR Left 12/06/2023 PROCEDURE: HISTORICAL ROTATOR CUFF REPAIR; COMMENT: Left shoulder arthroscopic rotator cuff repair.Subacromial decompression. Labral debridement. TONSILLECTOMY PROCEDURE: HISTORICAL TONSILLECTOMY; COMMENT: and adenoids UPPER GASTROINTESTINAL ENDOSCOPY 09/29/2019 PROCEDURE: HI UPPER GI ENDOSCOPY PERFORMED; COMMENT: Visually normal [...] 9:45 AM EDT Office Visit Adult Medicine [facility] [address] [place], [place] [phone] Ora Sweeney MD 444 [place] [address] 06/04/2024 10:30 AM EDT Consult Bariatric Surgery [facility] [address] [phone] Lita Verde PA 271 [facility] [address] [place] [address] 06/04/2024 11:45 AM EDT Office Visit Orthopedic Surgery [facility] [address] [phone] Luis Armando Eller MD [address] [address] 06/05/2024 9:45 AM EDT Office Visit Orthopedic Surgery [facility] 250 175 [facility] 250 [place] [phone] Duke Dunn, DPM [address] [address] 06/06/2024 2:30 PM EDT Office Visit Obstetrics and Gynecology [address] [phone] Stacie Martinez, CN 444 [place], [place] 06/30/2024 10:30 AM EDT Office Visit Orthopedic Surgery [facility] [address] [phone] Luis Armando Eller MD [address] [place] [address] 07/02/2024 9:30 AM EDT Office Visit Orthopedic Surgery - [place] 250 175 [facility] 250 [place] [address] Lorie Moore NP 175 [facility] [address] [place] [address] 07/09/2024 9:30 AM EDT Office Visit Endocrinology [facility] [address] [place] [address] Jayesh Pineda MD 725 [place] [address] 09/22/2024 8:45 AM EDT Office Visit Pulmonolgy - [place] 175 [facility] 200 [place] [phone] Pretty Le MD 175 [facility] 200 [place] [address] documented as of this encounter Visit Diagnoses Diagnosis S/P left rotator cuff repair- Primary documented in this encounter Care Teams Ply Splicer Relationship Specialty Start Date End Date Ora Sweeney MD 4 [place] [address] PCP - General Internal Medicine 01/09/24 documented as of this encounter
--- OUTSIDE RECORDS SUMMARY | 2024-04-15 12:52 | XMS_ITS | Encounter Summary ---
Author Organization [facility] Address [address] [place] [address] Care Team Providers Care Slot Manager Name Role Phone Ora Sweeney MD Primary Care Prov ider Reason for Visit * Reason Comments Blood Sugar Problem Encounter Details Date Type Department Care Team ([facility] st Contact Info) Description 04/11/2024 9:45 AM EST Office Visit Endocrinology - [address] [phone] Jayesh Pineda MD [address] [place] [address] Type 2 diabetes mellitus with other specified complication, without long-term current use of insulin (CMS/HCC) (Primary Dx); Hyperparathyroidism (CMS/[facility]); Hypothyroidism, unspecified type Social History Tobacco Use Types Packs/Day Years [...] for your loved ones. For example, child neurologist or elderly care for an older adult? [...] Sign Reading Time Taken Comments Blood Pressure 123/62 04/11/2024 9:55 AM EST Pulse 85 04/11/2024 9:55 AM EST Temperature 36.2 ??C (97.2 ??F) 04/11/2024 9:55 AM ES T Respiratory Rate - - Oxygen Saturation 95% 04/11/2024 9:55 AM EST Inhaled Oxygen Concentration - - Weight 126 kg (277 lb) 04/11/2024 9:55 AM EST Height 160 cm (5' 3 ) 04/11/2024 9:55 AM EST Body Mass Index 49.07 04/11/2024 9:55 AM EST documented in this encounter Progress Notes * Jayesh Pineda MD - 04/11/2024 9:45 AM EST CHIEF COMPLAINT: Blood Sugar Problem IDENTIFIER: Ana Luisa House is a 63 y.o. old female. HPI: Pt is following for HPT, DM, hypothyroidism. She has a h/o elevated PTH, atleast since 2018. Calcium levels were borderline or minimally high, however more recently have gone higher, highest being 11.6. Her vitamin D levels in normal range. She has a h/o multiple nephrolithiasis per pt, last one 4 years ago. 24 hrs urine calcium levels was high at 411, it was repeated and was WNL. DXA scan was repeated and is in normal range. US renal, unremarkable. She was referred to get surgical opinion, is scheduled for surgery at the end of May. Last TSH is in range. She claims complaince with medications, on 125 mcg levothyroxine with half a tab extra a week Has been diagnosed with DM type 2. Was started on trulicity and went up on the dose to 1.5 mg weekly. was on metformin but was having GI issues so no longer on it. Tried switching to ozempic, but coverage issues. Numbers recalled are in range. ROS: Negative except as noted in HPI PAST MEDICAL HISTORY: Patient Active Problem List Diagnosis Date Noted S/P left rotator cuff repair 03/06/2024 Rotator cuff tear arthropathy of left shoulder 01/14/2024 CTS (carpal tunnel syndrome) 12/16/2023 Hypertension 12/16/2023 Hypothyroid 12/16/2023 Migraines 12/16/2023 Multiple thyroid nodules 12/16/2023 Fatty liver 12/16/2023 Osteoarthritis 12/16/2023 Cervical radiculopathy 04/10/2022 Asthma-chronic obstructive pulmonary disease overlap syndrome (CMS/HCC) 01/30/2022 Diabetes mellitus (CMS/HCC) 01/30/2022 Seasonal allergic conjunctivitis 01/30/2022 Palpitations 11/25/2021 Chest pain 11/21/2021 HLD (hyperlipidemia) 11/21/2021 Mild concentric left ventricular hypertrophy 08/23/2021 Pulmonary eosinophilia (CMS/HCC) 07/14/2021 Hyperparathyroidism (CMS/HCC) 03/09/2021 Diabetes mellitus type 2, controlled, without complications (CMS/HCC) 02/16/2021 Anxiety and depression 06/14/2020 Asthma, moderate persistent 05/10/2020 Vitamin D deficiency 04/17/2019 Knee pain 01/20/2018 Obstructive sleep apnea 03/06/2017 Pilar cyst 09/07/2016 Colon polyps 02/06/2016 Gastroesophageal reflux disease without esophagitis 08/30/2015 Nonalcoholic fatty liver disease 04/12/2015 Seasonal allergies 08/18/2013 Urge incontinence 08/23/2012 Past Surgical History: Procedure Laterality Date CARPAL [...] colon polyp: Tubular adenoma. ESOPHAGOGASTRODUODENOSCOPY 09/22/2021 PROCEDURE: MO EGD TRANSORAL BIOPSY SINGLE/MULTIPLE; COMMENT: EGD including biopsy normal EXCISION BENIGN SKIN LESION TRUNK / ARM / LEG PROCEDURE: MO EXCISION TUMOR SOFT TISSUE BACK/FLANK SUBQ <3CM; COMMENT: Lipomas removed HERNIA REPAIR PROCEDURE: HISTORICAL HERNIA REPAIR/ING KNEE ARTHROSCOPY Right PROCEDURE: MO ARTHROSCOPY KNEE DIAGNOSTIC W/WO SYNOVIAL BX SPX OTHER SURGICAL HISTORY PROCEDURE: MO BIOPSY THYROID PERCUTANEOUS CORE NEEDLE OTHER SURGICAL HISTORY PROCEDURE: CYSTOSCOPY/SURG, URETHRA/BLAD NECK; COMMENT: sling procedure for stress incontinence OTHER SURGICAL HISTORY Right 08/25/2015 PROCEDURE: MO EXCISION NAIL MATRIX PERMANENT REMOVAL; COMMENT: right hallux Dr. Rangel OTHER SURGICAL HISTORY PROCEDURE: HISTORY OTHER; COMMENT: Maxillofacial surgery ROTATOR CUFF REPAIR Left 12/06/2023 PROCEDURE: HISTORICAL ROTATOR CUFF REPAIR; COMMENT: Left shoulder arthroscopic rotator cuff repair.Subacromial decompression. Labral debridement. TONSILLECTOMY PROCEDURE: HISTORICAL TONSILLECTOMY; COMMENT: and adenoids UPPER GASTROINTESTINAL ENDOSCOPY 09/29/2019 PROCEDURE: MO UPPER GI ENDOSCOPY PERFORMED; COMMENT: Visually normal on PPI treatment. WISDOM TOOTH EXTRACTION PROCEDURE: HISTORICAL WISDOM TEETH EXTRACTION SOCIAL HISTORY: Social History Tobacco Use Smoking status: Never Smokeless tobacco: Never Substance Use Topics Alcohol use: No FAMILY HISTORY: Family History Problem Relation Name Age of Onset Breast cancer Aunt maternal x 1 50.00 Diabetes Mother with neuropathy, OA, Uterine cancer Mother 31.00 Colon cancer Mother 59.00 Ovarian cancer Mother 31.00 Coronary artery disease Father [place] age 68, HTN, Diabetes, cataract, glaucoma Ovarian cancer Maternal Grandmother 50.00 uterine cancer same age Emphysema Maternal Grandfather 97.00 Ovarian cancer Aunt maternal x 6 50.00 6 maternal aunts also with ov, uterine ca Lung cancer Paternal Grandfather 75.00 Colon polyps Sister x 2 50.00 glaucoma, diabetes Glaucoma Brother x 2 Lymphoma Mother's side 1st cousin Lung cancer Mother's side 1st cousin Family Status Relation Name Status Aunt maternal x 1 Mother Alive Father Alive MGM MGF Aunt maternal x 6 PGF Sister x 2 Alive Brother x 2 Alive Mother's kim 1st cousin Alive Mother's kim 1st cousin PGM No partnership data on file MEDICATIONS DISCONTINUED/REORDERED: There are no discontinued medications. ACTIVE MEDICATIONS: Outpatient Medications Marked as Taking for the 04/11/24 encounter (Office Visit) with Jayesh Pineda MD Medication Sig Dispense Refill acetaminophen (TYLENOL 8 [...] directed as needed (anaphylaxis). Use as directed fexofenadine (CRISTINA) 180 mg tablet Take 1 tablet by mouth daily. sgcthtkevqu-jkzrnmhyoofd-vffvvleqjj (Trelegy Ellipta) 100-62.5-25 mcg inhaler Inhale 1 [...] XR (EFFEXOR-XR) 37.5 mg 24 hr capsule ALLERGIES: Allergies Allergen Reactions Cefadroxil Swelling and Shortness [...] Mood change Rabbit Epithelium Allergenic Extract rabbits PHYSICAL EXAM: Visit Vitals BP 123/62 Pulse 85 Temp 36.2 ??C (97.2 ??F) (Temporal) Ht 1.6 m (63 ) Wt 126 kg (277 lb) SpO2 95% BMI 49.07 kg/m?? OB Status Postmenopausal Smoking Status Never BSA 2.22 m?? APPEARANCE: Alert and in no acute distress EYES: EOMI No resp distress NEURO: Awake, alert. LABS: No results found for: TSH No results found for: FT4 IMAGING: @[facility]@ IMPRESSION: 1. Type 2 diabetes mellitus with other specified complication, without long-term current use of insulin ([facility]) 2. Hyperparathyroidism ([facility]) 3. Hypothyroidism, unspecified type PLAN: DM type 2: restartd on Trulicity, numbers recalled are in range, asked to continue for now. Have discussed about potential side effects in detail. no DR, uptodate with eye exam. Has neuropathy No nephropathy, last UAC not elevated. Hypothyroidism: last US did not show any discrete nodules, last TSH is in range. HPT: primary HPT normal GFR, no OP however has a h/o nephrolithiasis, Has a h/o high calcium in urine, And high plasma calcium levels as well highest being 11.6. Is scheduled for surgery, plan to follow a month after. All questions answered. Medication and lab orders: No orders of the defined types were placed in this encounter. Other orders: None Jayesh Pineda MD on 04/11/2024 at 10:14 AM EST documented in this encounter Plan of Treatment Upcoming Encounters Date Type Department Care Team (Late st Contact Info) Description 05/28/2024 9:45 AM EDT Office Visit Adult Medicine [address] [phone] Ora Sweeney MD [address] [place] [address] 06/04/2024 10:30 AM EDT Consult Bariatric Surgery - [place] [address] [phone] Lita Verde, [facility] [address] [address] 06/04/2024 11:45 AM EDT Office Visit Orthopedic Surgery [facility] [address] [phone] Luis Armando Eller MD [address] [address] 06/05/2024 9:45 AM EDT Office Visit Orthopedic Surgery [facility] [address] [phone] Duke Dunn, DPM [address] [address] 06/06/2024 2:30 PM EDT Office Visit Obstetrics and Gynecology - [address] [phone] Stacie Martinez, [facility] [address] [place] [address] 06/30/2024 10:30 AM EDT Office Visit Orthopedic Surgery [facility] [address] [phone] Luis Armando Eller MD [address] [address] 07/02/2024 9:30 AM EDT Office Visit Orthopedic Surgery [facility] [address] [phone] Lorie Moore, DONN [address] [address] 07/09/2024 9:30 AM EDT Office Visit Endocrinology - [address] [place] [address] Jayesh Pineda MD [address] [place] [address] 09/22/2024 8:45 AM EDT Office Visit Pulmonolgy - [place] [address] [phone] Pretty Le MD [address] [address] documented as of this encounter Visit Diagnoses Diagnosis Type 2 diabetes mellitus with other specified complication, without long-term current use of insulin ([facility])- Primary Hyperparathyroidism ([facility]) Hyperparathyroidism, unspecified Hypothyroidism, unspecified type documented in this encounter Care Teams Slot Manager Relationship Specialty Start Date End Date Ora Sweeney MD 4 [place] [address] PCP - General Internal Medicine 01/09/24 documented as of this encounter
--- OUTSIDE RECORDS SUMMARY | 2024-04-15 12:52 | XMS_ITS | Data Portability ---
Author Organization [facility] [address] Address [address] [place] [address] Assessment No assessment recorded. Plan of Treatment Reminders Order Date Submit Date Provider Last Modified By Organization Details Last Modified Time Details Appointments None recorded. Lab rapid flu (A+B) 2021 022 marva [email or web address] [address] [address], [address] [place], [address], 14:02:10 rapid SARS CoV 2 Ag, QL IA, respiratory specimen 2021 022 [facility] [address] [address], [address] [place], [address], 14:02:10 Referral None recorded. Procedures None recorded. Surgeries None recorded. Imaging None recorded. Medication Orders Tamiflu 75 mg capsule 2021 [facility] #[id number], [phone] [place], [address], 03:31:38 promethazin e-DM 6.25 mg-15 mg/5 mL oral syrup 2021 [facility] #[id number], [phone] [place], [address], 14:02:13 Patient TargetsNo targets recorded. Patient Instructions Encounter Date Encounter Id Patient Instructions Last Modified By Organization Details Last Modified Time 02/20/2022 [id number] You should follow-up with your PCP in [...] y speci men Unknown Analyte Not Available [address] [place] [address] [address] [place], [address], 02/20/2022 13:38:01 02/21/20 22 02/20/2022 rapid SARS CoV 2 Ag, QL IA, respi rator y speci men Unknown Analyte negati ve Not Available [address] [place], [address], 02/20/2022 13:38:01 02/21/20 22 02/20/2022 rapid flu (A+B) Unknown Analyte negati ve Not Available [address] [place], [address], 02/20/2022 13:24:32 02/21/20 22 02/20/2022 rapid flu (A+B) Unknown Analyte Normal = Negati ve Not Available [address] [place], [address], 02/20/2022 13:24:32 02/21/20 22 02/20/2022 rapid flu (A+B) Unknown Analyte negati ve Not Available [address] [place], [address], 02/20/2022 13:24:32 02/21/20 22 02/20/2022 rapid flu (A+B) Unknown Analyte Normal = Negati ve Not Available [address] [place], [address], 02/20/2022 13:24:32 Result Notes None recorded. Problems Name Problem SNOMED Code Status Onset Date Resolution Date Notes Provider Name and Address Organization Details Recorded Time Hypertensive disorder 45564519 Active 2021 Layne Trevino null, PA - [facility] 2 13:21:27 Hyperlipidemia 75919824 Active 2021 Layne Trevino null, PA - [facility] 2 13:21:42 Thyroiditis 16579326 Active 2021 Laynetristen Trevino null, PA - [facility] 2 13:21:59 Environmental allergy 055977930 Active 2021 Layne Trevino null, PA - [facility] 2 13:22:12 Migraine 40005551 Active 2021 Layne Trevino null, PA - [facility] 2 13:22:21 Diabetes mellitus 16037340 Active 2021 Layne Trevino null, PA - [facility] 2 13:22:34 Asthma 656003580 Active 2021 Layne Trevino null, PA - [...] Name and Address Organization Details Recorded Time 11520 Product containin g penicilli n and antibioti c (product) medicatio n swelling Not available high 02/20/2022 50165 05 SNOMED Layne Trevino null, PA - [facility] 2 13:13:07 26710 Duricef medicatio n swelling Not available Not available 02/20/202237347 6 RxNorm Layne Trevino null, PA - [facility] 2 13:13:25 83318 Medrol medicatio n swelling Not available Not available 02/20/202278218 2 RxNorm Layne Trevino null, PA - [facility] 2 13:13:43 19085 oxycodone medicatio n Not available Not available Not available 02/20/2022 7804 RxNorm Layne Trevino null, PA - [facility] 2 13:13:52 75024 chocolate flavor food,medi cation Not available Not available Not available 02/20/2022 14814 UNDarren Trevino null, PA - [facility] 2 13:14:02 72877 almond allergeni c extract food Not available Not available Not available 02/20/2022 93146 7 RxNorm Layne Trevino null, PA - [facility] 2 13:14:09 90397 Canis lupus familiari s extract environme nt Not available Not available Not available 02/20/2022 63809 4 RxNorm Layne Trevino null, PA - [facility] 2 13:14:18 30871 cat dander environme nt Not available Not available Not available 02/20/2022 86368 UNK Layne Trevino null, PA - [facility] 2 13:14:22 07502 rabbit dander environme nt Not available Not available Not available 02/20/2022 15297 UNDarren SalgadoLaynetristen Trevino null, PA - [facility] 2 13:14:29 40988 latex environme nt,medica tion Not available Not available Not available 02/20/2022 89340 91 RxNorm Laynetristen Trevino null, PA - [facility] 2 13:14:36 04282 house dust mite environme nt Not available Not available Not available 02/20/2022 20808 UNK Layne Trevino null, PA - [facility] 2 13:14:44 25372 POLLEN EXTRACTS environme nt,medica tion Not available Not available Not available 02/20/2022 48108 6 RxNorm Layne Trevino null, PA - [facility] 2 13:14:56 76991 grass pollen environme nt,medica tion Not available Not available Not available 02/20/2022 88902 UNK Layne Trevino null, PA - [facility] 2 13:15:03 78462 ethinyl estradiol / levonorge strel medicatio n Not available Not available Not available 02/20/2022 70932 8 RxNorm Layne Trevino null, PA - [...] Updated DateTime 2 162.56 cm 44.6 kg/m2 963858. 02 g 100 % 100 % 85 /min 20 /min 98.8 [degF] 159 mm[Hg] 88 mm[Hg] [facility] 13:12:06 Social History Question Answer Notes LastModified by Organizat ion Details LastModified Time Tobacco Smoking Status Never Smoker [facility] 02/20/2022 13:23:07 What Is Your Level Of Alcohol Consumption? Occasional [email or web address] Information not available 02/20/2022 Have You Had Direct Contact, Or Contact During Intimacy, With Monkeypox Rash, Scabs, Or Body Fluids From A Person With Monkeypox? No Information not available 02/20/2022 Do You Use Any Illicit Or Recreational Drugs? No [email or web address] Information not available 02/20/2022 Have You Recently Traveled Abroad? No [email or web address] Information not available 02/20/2022 Sex: Unknown Functional Status None recorded. Mental Status None recorded. Family History Nothing Reported. Medical History No medical history recorded. Gynecological HistoryNo gynecological history recorded. Obstetrics History GPAL:G 0 P 0 0 0 0 Immunizations Vaccine Type Date Status Note Provider Nam e and Address Organization Details Recorded Time SARS-COV-2 (COVID-19) vaccine, UNSPECIFIED 09/09/2020 completed [facility] 02/20/2022 13:19:15 Past Encounters Encounter ID Performer Location Encounter Start Date Encounter Closed Date Diagnosis/Indication Diagnosis SNOMED-CT Code Diagnosis ICD10 Code Diagnosis Note [id number] [address] [facility] [address] [place] [address] 04/01/2019 17:17:25 04/01/2019 18:28:03 [id number] [place] [address] [facility] [address] [place] [address] 02/20/2022 12:02:53 02/20/2022 14:03:53 Generalized aches and pains 29482165 R52 Viral syndrome 119267421 B34.9 Health Concerns Section Related Observation LastModified by Organization Detai ls LastModified Time None Recorded Concern Status LastModified by Organization Details LastModified Time None Recorded Advance Directives Directive None Recorded Payers Encounter Date Sequence Insurance Name Policy Number Policy Saleh Covered Member ID Saleh Member ID Guarantor Name 04/01/2019 1 [facility] (MEDICAID REPLACEMENT - HMO) [place] Ana Luisa A House [id number] Ana Luisa A House 02/20/2022 1 [facility] (MEDICAID REPLACEMENT - HMO) [employer] Ana Luisa A House [id number] Ana Luisa A House Notes Date Note [...] drip;hurts to breath Evelina Xiao MD [address] [place], [address], [place] - [facility] 02/20/2022 20:29:48 OBGyn Episode No OBEpisode recorded.
--- OUTSIDE RECORDS SUMMARY | 2024-04-15 12:52 | XMS_ITS | Encounter Summary ---
Author Organization [facility] Address [address] [place] [address] Care Team Providers Care Transmission System Operator Name Role Phone Oar Sweeney MD Primary Care Prov ider Reason for Visit * Consultation (Elective) - Authorized Specialty Diagnoses / Procedures Referred By Janie castillo Referred To Contact Occupational Therapy Diagnoses S/P left rotator cuff repair Luis Armando Eller MD 175 [facility] 160 [place] [address] [facility] Occupational Therapy 175 [facility] [address] [place] [address] Referral ID Status Reason Start Date Expiration Date Visits Requested Visits Authorized [id number] Authorized Specialty Services Required 01/08/2025 21 21 Encounter Details Date Type Department Care Team (Late st Contact Info) Description 03/27/2024 10:00 AM EST Treatment [facility] Occupational Therapy [address] [address] Chema Martins, SARAH Rotator cuff [...] for your loved ones. For example, child protective services social worker or elderly care for an older adult? [...] from the original note were not included. [facility] - Outpatient OCCUPATIONAL THERAPY DISCHARGE EVALUATION Date: 03/27/2024 Visit Number: 17 Patient Name: Ana Luisa House : 1960 Age: 63 y.o. Gender: female Diagnosis: ICD-10-CM ICD-9-CM 1. Rotator cuff tear arthropathy of left shoulder M75.102 716.81 M12.812 Date of Onset: 12/06/2023 Referring Provider: Luis Armando Eller MD Insurance: Payor: [employer]VANTAGE / Plan: [employer] [facility] OPTIONS / Product Type: *No Product type* / Language: Speaks and understands Greek as preferred language with no operations and intelligence assistant required has a past medical history of Abdominal pain, RUQ (12/28/2014), Abnormal finding on imaging (12/28/2014), Angiomyolipoma of both kidneys, Anxiety state, Asthma, Asthma, moderate persistent (05/10/2020), Asthma-chronic obstructive pulmonary disease overlap syndrome ([facility]/HCC) (01/30/2022), Class 3 severe obesity due to excess calories with serious comorbidity and body mass index (BMI) of 40.0 to 44.9 in adult ([facility]/HCC) (07/15/2019), COVID-19, CTS (carpal tunnel syndrome), Depression, Depressive disorder, Diabetes mellitus ([facility]/HCC), Diabetes mellitus type 2, controlled, without complications ([facility]/HCC) (02/16/2021), Family history of colon cancer, Fatty liver, Gastroesophageal reflux disease without esophagitis (08/30/2015), HLD (hyperlipidemia) (11/21/2021), Hypertension, Hypothyroid, Migraines, Mild concentric left ventricular hypertrophy (08/23/2021), Morbid obesity with BMI of 40.0-44.9, adult ([facility]), Multiple thyroid nodules, Nonalcoholic fatty liver disease (04/12/2015), Obesitywith alveolar hypoventilation ([facility]/HCC), VIRGIE on CPAP, Osteoarthritis, Overactive bladder, Pain and swelling of left upper extremity (11/21/2021), Pre-diabetes (09/25/2017), Seasonal allergies (08/18/2013), Shingles, Sleep apnea, Stress incontinence, and Vitamin D deficiency (04/17/2019). 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 (eg wash nazario, wash floors) : 3 [...] educated pt re: progression of HEP AROM, alterations tailor measured as above Pain Reassessment: no pain [...] completed by SARAH Lopez OCCUPATIONAL THERAPY 175 [facility] [address] [facility] [address] Dept: [phone] Dept PATIENT NAME: Ana Luisa House : [...] 05/28/2024 9:45 AM EDT Office Visit Adult [address] [address] Ora Sweeney MD [address] [place] [address] 06/04/2024 10:30 AM EDT Consult Bariatric Surgery [facility] 175 [facility] [address] [place] [address] Lita Verde PA 271 [facility] 120 [place], [place] [phone] 06/04/2024 11:45 AM EDT Office Visit Orthopedic Surgery [facility] 160 175 [facility] 160 [place] [address] Luis Armando Eller MD [address] [address] 06/05/2024 9:45 AM EDT Office Visit Orthopedic Surgery - [place] [address] [address] Duke Dunn, [facility] [address] [address] 06/06/2024 2:30 PM EDT Office Visit Obstetrics and Gynecology - [address] [address] Stacie Martinez, [facility] 444 [place] [address] 06/30/2024 10:30 AM EDT Office Visit Orthopedic Surgery - [place] [address] [phone] Luis Armando Eller MD [address] [address] 07/02/2024 9:30 AM EDT Office Visit Orthopedic Surgery [facility] [address] [phone] Lorie Moore NP [address] [address] 07/09/2024 9:30 AM EDT Office Visit Endocrinology - [place] [address] [place] [phone] Jayesh Pineda MD [address] [place] [address] 09/22/2024 8:45 AM EDT Office Visit Pulmonolgy - [place] [address] [address] Pretty Le MD [address] [facility] [address] [place] [address] documented as of this encounter Visit Diagnoses Diagnosis Rotator cuff tear arthropathy of left shoulder- Primary documented in this encounter Care Teams Transmission System Operator Relationship Specialty Start Date End Date Ora Sweeney MD [address] [place] [address] PCP - General Internal Medicine 01/09/24 documented as of this encounter
--- OUTSIDE RECORDS SUMMARY | 2024-04-15 12:52 | XMS_ITS | Encounter Summary ---
Author Organization [facility] Address [address] [place] [address] Care Team Providers Care Machine Pan Greaser Name Role Phone Ora Sweeney MD Primary Care Prov ider Reason for Visit * Consultation (Elective) - Authorized Specialty Diagnoses / Procedures Referred By Janie castillo Referred To Contact Occupational Therapy Diagnoses S/P left rotator cuff repair Luis Armando Eller MD 175 [facility] 160 [place] [address] [facility] Occupational Therapy [address] [address] Referral ID Status Reason Start Date Expiration Date Visits Requested Visits Authorized [id number] Authorized Specialty Services Required 01/08/2025 21 21 Encounter Details Date Type Department Care Team (Late st Contact Info) Description 03/18/2024 1:00 PM EST Treatment [facility] Occupational Therapy [address] [phone] Lisa Jones COTA Social History [...] for your loved ones. For example, child welfare director or elderly care for an older [...] QUANG Hoffman - 03/18/2024 1:00 PM EST [facility] - Outpatient OCCUPATIONAL THERAPY DAILY TREATMENT NOTE Date: 03/18/2024 Visit Number: 14 Patient Name: Ana Luisa House : 1960 Age: 63 y.o. Gender: female Diagnosis: No diagnosis found. Date of Onset: 12/06/2023 Referring Provider: Luis Armando Eller MD Insurance: Payor: [employer]VANTAGE / Plan: [facility] CARE OPTIONS / Product Type: *No Product type* / Language: Speaks and understands Gambian as preferred language with no binder roller required Allergies: is allergic to cefadroxil, methylprednisolone, [...] 9:45 AM EDT Office Visit Adult Medicine [address] [phone] Ora Sweeney MD [address] [place] [address] 06/04/2024 10:30 AM EDT Consult Bariatric Surgery [facility] 175 [facility] 120 [place] [phone] Lita Verde PA 271 [facility] 120 [place] [address] 06/04/2024 11:45 AM EDT Office Visit Orthopedic Surgery [facility] [address] [phone] Luis Armando Eller MD [address] [address] 06/05/2024 9:45 AM EDT Office Visit Orthopedic [facility] [address] [phone] Duke Dunn DPM [address] [address] 06/06/2024 2:30 PM EDT Office Visit Obstetrics and Gynecology - [address] [address] Stacie Martinez, [facility] 444 [place] [address] 06/30/2024 10:30 AM EDT Office Visit Orthopedic Surgery [facility] [address] [address] Luis Armando Eller MD [address] [address] 07/02/2024 9:30 AM EDT Office Visit Orthopedic Surgery [facility] [address] [phone] Lorie Moore NP [address] [address] 07/09/2024 9:30 AM EDT Office Visit Endocrinology - [place] [address] [place] [phone] Jayesh Pineda MD 725 [place] [address] 09/22/2024 8:45 AM EDT Office Visit Pulmonolgy [facility] [address] [phone] Pretty Le MD [address] [address] documented as of this encounter Visit Diagnoses Not on filedocumented in this encounter Care Teams Machine Pan Greaser Relationship Specialty Start Date End Date Ora Sweeney MD [address] [place] [address] PCP - General Internal Medicine 01/09/24 documented as of this encounter
--- OUTSIDE RECORDS SUMMARY | 2024-04-15 12:52 | XMS_ITS | Encounter Summary ---
Author Organization [facility] Address [address] [place] [address] Care Team Providers Care Registered Client Associate Name Role Phone Ora Sweeney MD Primary Care Prov ider Encounter Details Date Type Department Care Team (Late st Contact Info) Description 12/12/2023 4:42 PM EDT Hospital Encounter TH HISTORIC ENCOUNTERS EASTERN CONVERSION ONLY Luis Armando Eller MD [address] [facility] 160 [place] [address] Social History Tobacco Use Types Packs/Day Years [...] care for your loved ones. For example, early childhood teacher or elderly care for an [...] 9:45 AM EDT Office Visit Adult Medicine [address] [phone] Ora Sweeney MD [address] [place] [address] 06/04/2024 10:30 AM EDT Consult Bariatric Surgery - [place] 175 [facility] 120 [place] [phone] Lita Verde PA 271 [facility] 120 [place] [address] 06/04/2024 11:45 AM EDT Office Visit Orthopedic Surgery - [place] [address] [phone] Luis Armando Eller MD [address] [address] 06/05/2024 9:45 AM EDT Office Visit Orthopedic Surgery - [place] [address] [phone] Duke Dunn, DPM [address] [address] 06/06/2024 2:30 PM EDT Office Visit Obstetrics and Gynecology - [place] [address] [place] [address] Stacie Martinez, [facility] 444 [place] [address] 06/30/2024 10:30 AM EDT Office Visit Orthopedic Surgery [facility] [address] [phone] Luis Armando Eller MD [address] [address] 07/02/2024 9:30 AM EDT Office Visit Orthopedic Surgery - [place] [address] [phone] Lorie Moore NP [address] [address] 07/09/2024 9:30 AM EDT Office Visit Endocrinology - [address] [phone] Jayesh Pineda MD 5 [place] [phone] 09/22/2024 8:45 AM EDT Office Visit Pulmonolgy - [place] 175 [facility] [address] [place] [phone] Pretty Le MD [address] [address] documented as of this encounter Visit Diagnoses Not on filedocumented in this encounter Care Teams Registered Client Associate Relationship Specialty Start Date End Date Ora Sweeney MD 4 [place] [address] PCP - General 10/11/21 01/08/24 documented as of this encounter
--- OUTSIDE RECORDS SUMMARY | 2024-04-15 12:52 | XMS_ITS | Encounter Summary ---
Author Organization [facility] Address [address] [place] [address] Care Team Providers Care Audio Visual Facilities Engineer Name Role Phone Ora Sweeney MD Primary Care Prov ider Reason for Visit * Consultation (Elective) - Authorized Specialty Diagnoses / Procedures Referred By Janie castillo Referred To Contact Occupational Therapy Diagnoses S/P left rotator cuff repair Luis Armando Eller MD 175 [facility] 160 [place] [address] [facility] Occupational Therapy [address] [address] Referral ID Status Reason Start Date Expiration Date Visits Requested Visits Authorized [id number] Authorized Specialty Services Required 01/08/2025 21 21 Encounter Details Date Type Department Care Team (Late st Contact Info) Description 03/25/2024 9:00 AM EST Treatment [facility] Occupational Therapy [address] [phone] Lisa Jones COTA Social History [...] your loved ones. For example, early childhood education specialist or elderly care for an older adult? [...] QUANG Hoffman - 03/25/2024 9:00 AM EST [facility] - Outpatient OCCUPATIONAL THERAPY DAILY TREATMENT NOTE Date: 03/25/2024 Visit Number: 16 Patient Name: Ana Luisa House : 1960 Age: 63 y.o. Gender: female Diagnosis: No diagnosis found. Date of Onset: 12/06/2023 Referring Provider: Luis Armando Eller MD Insurance: Payor: [employer] ADVANTAGE / Plan: [facility] CARE OPTIONS / Product Type: *No Product type* / Language: Speaks and understands Sammarinese as preferred language with no electric clock mechanic required Allergies: is allergic to cefadroxil, methylprednisolone, [...] 9:45 AM EDT Office Visit Adult Medicine [address] [address] Ora Sweeney MD [address] [place] [address] 06/04/2024 10:30 AM EDT Consult Bariatric Surgery [facility] 175 [facility] 120 [place] [phone] Lita Verde PA 271 [facility] 120 [place] [address] 06/04/2024 11:45 AM EDT Office Visit Orthopedic Surgery [facility] 160 175 [facility] 160 [place] [address] Luis Armando Eller MD [address] [address] 06/05/2024 9:45 AM EDT Office Visit Orthopedic [facility] [address] [phone] Duke Dunn DPJohan [address] [address] 06/06/2024 2:30 PM EDT Office Visit Obstetrics and Gynecology - [address] [phone] Stacie Martinez, [facility] 444 [place] [address] 06/30/2024 10:30 AM EDT Office Visit Orthopedic Surgery [facility] [address] [phone] Luis Armando Eller MD [address] [address] 07/02/2024 9:30 AM EDT Office Visit Orthopedic [facility] [address] [phone] Lorie Moore NP [address] [address] 07/09/2024 9:30 AM EDT Office Visit Endocrinology - [place] 444 [place] [address] Jayesh Pineda MD 725 [place] [address] 09/22/2024 8:45 AM EDT Office Visit Pulmonolgy - [place] [address] [phone] Pretty Le MD [address] [address] documented as of this encounter Visit Diagnoses Not on filedocumented in this encounter Care Teams Audio Visual Facilities Engineer Relationship Specialty Start Date End Date Ora Sweeney MD [address] [place] [address] PCP - General Internal Medicine 01/09/24 documented as of this encounter
--- OUTSIDE RECORDS SUMMARY | 2024-04-15 12:52 | XMS_ITS | Continuity of Care Document ---
Author Organization [facility] ter Address [address] [place] [address]- Care Team Providers Care Manager Electrical Name Role Phone Teressa Solis DO Primary Care [place] yrn Encounter [facility] [place] Date(s): 03/14/24 - 04/13/24 [facility] [address] [place], [place] [address] Attending Physician: Admtr, [id number] Admitting Physician: Admtr, [id number] Referring Physician: Admtr, Ar8 Encounter Type: Triage Allergies, Adverse Reactions, Alerts Substance Criticality Severity Reaction Reaction Severity Status penicillin throat swelling/facial swelling Active Medrol Dosepak edema Activ e Animal Dander sneezing Active Chocolate snezzing/runny nose Active Other Food Allergy Almonds-a naphalaxis msg Active Other Environmental Allergy MSG edema Active Duricef difficulty breathing/facial swelling Active Latex hives,itching Active Medications amLODIPine 10 mg oral tablet 90 each, 0 Refill(s), TAKE 1 TABLET BY MOUTH EVERY DAY, 0 Refills, 02/26/24 2:10:00 PM EST, Partialfill upon patient request if the prescription is for a schedule II opioid drug. Start Date: 02/26/24 Status: Ordered Repeat number: 1 ammonium lactate 12% topical lotion 400 Gm, 0 Refill(s), APPLY TO SOLES OF FEET DAILY. AT NIGHT WEAR SOCKS TO BED, 0 Refills, 02/26/24 2:10:00 PM EST, Partial fill upon patient request if the prescription is for a schedule II opioid drug. Start Date: 02/26/24 Status: Ordered Repeat number: 1 atorvastatin 20 mg oral tablet 90 each, 0 Refill(s), TAKE 1 TABLET BY MOUTH EVERY DAY, 0 Refills, 02/26/24 2:10:00 PM EST, Partialfill upon patient request if the prescription is for a schedule II opioid drug. Start Date: 02/26/24 Status: Ordered Repeat number: 1 Azelastine Nasal 2 times a day, 0 Refills, Maintenance, 05/21/13 9:02:14 AM EDT Start Date: 05/21/13 Status: Ordered Repeat number: 1 cloNIDine 0.1 mg oral tablet 60 each, 0 Refill(s), TAKE 1/2-1 TABLET BY MOUTH TWICE A DAY NEEDED FOR ANXIETY- NEEDED AND TOLERATED, WATCH BP, Refills 0, 02/26/24 2:10:00 PM EST, Partial fill upon patient request if the prescription is for a schedule II opioid drug. Start Date: 02/26/24 Status: Ordered Repeat number: 1 cyclobenzaprine 5 mg oral tablet 30 each, 0 Refill(s), TAKE 1 TABLET BY MOUTH THREE TIMES A DAY NEEDED FOR PAIN FOR 10 DAYS, 0 Refills, 02/26/24 2:10:00 PM EST, Partial fill upon patient request if the prescription is for a schedule II opioid drug. Start Date: 02/26/24 Status: Ordered Repeat number: 1 docusate sodium 100 mg oral capsule 60 each, 0 Refill(s), TAKE 1 CAPSULE BY MOUTH TWICE A DAY, 0 Refills, 02/26/24 2:11:00 PM EST, Partial fill upon patient request if the prescription is for a schedule II opioid drug. Start Date: 02/26/24 Status: Ordered Repeat number: 1 enalapril 20 mg oral tablet 1 tablet = 20 mg, By Mouth, Daily, # 30 tablet, 0 Refills, Maintenance, 10/08/12 1:42:28 PM EDT, Tablet Start Date: 10/08/12 Status: Ordered Quantity: 30.0 Unit: tablet Repeat number: 1 famotidine 20 mg oral tablet 90 each, 0 Refill(s), TAKE 1 TABLET (20 MG) BY MOUTH TWICE A DAY NEEDED FOR HEARTBURN, Refills 0, 02/26/24 2:10:00 PM EST, Partial fill upon patient request if the prescription is for a schedule II opioid drug. Start Date: 02/26/24 Status: Ordered Repeat number: 1 Fioricet Tablet 2 tablet, By Mouth, Every 4 hours, 0 Refills, Maintenance, 10/15/12 10:37:30 AM EDT Start Date: 10/15/12 Status: Ordered Repeat number: 1 Hydrochlorothiazide = 25 mg, By Mouth, Daily, 0 Refills, Maintenance, 10/15/12 10:39:31 AM EDT Start Date: 10/15/12 Status: Ordered Repeat number: 1 levothyroxine 125 mcg (0.125 mg) oral capsule 1 capsule = 125 mcg, By Mouth, Daily, # 30 capsule, 0 Refills, Maintenance, 10/08/12 1:45:01 PM EDT,Capsule Start Date: 10/08/12 Status: Ordered Quantity: 30.0 Unit: capsule Repeat number: 1 Losartan By Mouth, Daily, 0 Refills, Maintenance, 12/01/13 9:22:20 AM EDT Start Date: 12/01/13 Status: Ordered Repeat number: 1 Peridex 0.12% liquid 15 mL = 0.018 Gm, By Mouth, 2 times a day, # 480 mL, 0 Refills, Maintenance, 04/25/17 4:26:06 PM EST, Liquid Start Date: 04/25/17 Status: Ordered Quantity: 480.0 Unit: mL Repeat number: 1 ProAir HFA 2 puffs, Inhalation, 4 times a day, PRN, 0 Refills, Maintenance, 10/08/12 1:45:44 PM EDT Start Date: 10/08/12 Status: Ordered Repeat number: 1 Senna-Time 8.6 mg oral tablet 90 each, 0 Refill(s), TAKE 1 TABLET BY MOUTH EVERYDAY AT BEDTIME, 0 Refills, 02/26/24 2:12:00 PM EST, Partial fill upon patient request if the prescription is for a schedule II opioid drug. Start Date: 02/26/24 Status: Ordered Repeat number: 1 Singulair By Mouth, Daily before dinner, 0 Refills, Maintenance, 12/30/13 1:23:40 PM EDT Start Date: 12/30/13 Status: Ordered Repeat number: 1 traZODone 100 mg oral tablet 90 each, 0 Refill(s), PLEASE SEE ATTACHED FOR DETAILED DIRECTIONS, Refills 0, 02/26/24 2:12:00 PM EST, Partial fill upon patient request if the prescription is for a schedule II opioid drug. Start Date: 02/26/24 Status: Ordered Repeat number: 1 Trelegy Ellipta 100 mcg-62.5 mcg-25 mcg/inh inhalation powder 1 Unknown, Inhalation, 3 Refill(s), Inhale 1 Puff into the lungs daily for 363 days., 0 Refills, 09/18/23 8:00:00 PM EDT, Partial fill upon patient request if the prescription is for a schedule II opioid drug. Start Date: 09/18/23 Status: Ordered Repeat number: 1 Trulicity Pen 3 mg/0.5 mL subcutaneous solution 0.5 mL = 3 mg, Subcutaneous Injection, Every week, rotate injection sites, # 2 mL, 3 Refills, Maintenance, 11/02/23 2:36:00 PM EDT, Solution, [facility], Partial fill upon patient request if the prescription is for a schedule II opioid drug., 159.4, cm, 11/02/23 14:01:00 EDT, Height Start Date: 11/02/23 Status: Ordered Quantity: 2.0 Unit: mL Repeat number: 4 Indication: Type 2 diabetes mellitus without complications Vitamin D3 1000 intl units oral tablet 1 tablet = 1,000 International_Units, By Mouth, Daily, 0 Refills, Maintenance, 10/15/12 10:38:40 AM EDT Start Date: 10/15/12 Status: Ordered Repeat number: 1 Vitamin D3 5000 intl units oral capsule 90 each, 0 Refill(s), TAKE 1 CAPSULE BY MOUTH EVERY DAY, 0 Refills, 02/26/24 2:12:00 PM EST, Partial fill upon patient request if the prescription is for a schedule II opioid drug. Start Date: 02/26/24 Status: Ordered Repeat number: 1 Zyrtec-D 1 tablet, By Mouth, 2 times a day, 0 Refills, Maintenance, 12/30/13 1:23:30 PM EDT Start Date: 12/30/13 Status: Ordered Repeat number: 1 Problem List Condition Confirmation Course Effective Dates Status Health Status Informant Hyperparathyroidism Confirmed Active Hypothyroidism Confirmed Active Severe obesity Confirmed Active Type 2 diabetes mellitus Confirmed Active Social History Social History Type Response Smoking Status Never smoker entered on: 12/01/13 Sex Sex Representation Female (finding) Patient Care team information Care Team Personnel Name: Teressa Solis DO Position: [facility] Physician - Primary Care Member Role: PCP Address: [address] [place] [address] Telecom: Care Team Related Persons Name: JULIEN GARCÍA Name: ALFREDO WARREN Insurance Providers Guarantor name: [facility] Information #: 1 Payer: [employer] Member Number: NA Policy Number: NA Group Number: NA
--- OUTSIDE RECORDS SUMMARY | 2024-04-15 12:52 | XMS_ITS | Continuity of Care Document ---
Author Organization [facility] ter Address [address] [place] [address]- Care Team Providers Care Wilton Weaver Name Role Phone Teressa Solis DO Primary Care Nicky pool Encounter [facility] [place] [id number] Date(s): 12/27/23 - 04/13/[address] [address]- Attending Physician: Nilsa Michele MD Admitting Physician: Nilsa Michele MD Referring Physician: Teressa Solis DO Encounter Type: Pre-Outpt Allergies, Adverse Reactions, Alerts Substance Criticality Severity Reaction Reaction Severity Status penicillin throat swelling/facial swelling Active Duricef difficulty breathing/facial swelling Active Medrol Dosepak edema Activ e Animal Dander sneezing Active Chocolate snezzing/runny nose Active Latex hives,itching Active Other Food Allergy Almonds-a naphalaxis msg Active Other Environmental Allergy MSG edema Active Medications amLODIPine 10 mg oral tablet [...] Refills, Maintenance, 11/02/23 2:36:00 PM EDT, Solution, [facility], Partial fill upon patient request [...] Team Personnel Name: Teressa Solis DO Position: [facility] Physician - Primary Care Member Role: PCP Address: [address] [place] [address] Telecom: Care Team Related Persons Name: JULIEN GARCÍA Name: ALFREDO WARREN Insurance Providers Guarantor name: JULIEN BARRY Health Plan Information #: 1 Payer: [employer] Member Number: [id number] Policy Number: NA Group Number: NA Health Plan Information #: 2 Payer: [employer] Member Number: [id number] Policy Number: NA Group Number: NA
--- OUTSIDE RECORDS SUMMARY | 2024-04-15 12:52 | XMS_ITS | Encounter Summary ---
Author Organization [facility] Address [address] [place] [address] Care Team Providers Care Gas Pumping Station Operator Name Role Phone Ora Sweeney MD Primary Care Prov ider Reason for Visit * Consultation (Elective) - Authorized Specialty Diagnoses / Procedures Referred By Janie castillo Referred To Contact Occupational Therapy Diagnoses S/P left rotator cuff repair Luis Armando Eller MD [address] [facility] [address] [place] [address] [facility] Occupational Therapy [address] [facility] [address] [place] [address] Referral ID Status Reason Start Date Expiration Date Visits Requested Visits Authorized [id number] Authorized Specialty Services Required 01/08/2025 21 21 Encounter Details Date Type Department Care Team (Late st Contact Info) Description 03/20/2024 11:00 AM EST Treatment [facility] Occupational Therapy [address] [address] Chema Martins, SARAH Rotator cuff [...] for your loved ones. For example, children's court magistrate or elderly care for an older adult? [...] from the original note were not included. [facility] - Outpatient OCCUPATIONAL THERAPY Progress Summary Date: 03/20/2024 Visit Number: [id number] Patient Name: Ana Luisa House : 1960 Age: 63 y.o. Gender: female Diagnosis: ICD-10-CM ICD-9-CM 1. Rotator cuff tear arthropathy of left shoulder M75.102 716.81 M12.812 Date of Onset: 12/06/2023 Referring Provider: Luis Armando Eller MD Insurance: Payor: [employer] / Plan: [facility] OPTIONS / Product Type: *No Product type* / Language: Speaks and understands Sri Lankan as preferred language with no court interpreter required Medications: Current Outpatient Medications on [...] tablet Take 1 tablet by mouth daily. pmfnmsqzvrh-xzmvllkgcfqc-kablkvigcs (Trelegy Ellipta) 100-62.5-25 mcg inhaler Inhale 1 [...] UNABLE TO FIND Inhale into the lungs. [facility]-supplies only venlafaxine XR (EFFEXOR-XR) 37.5 mg 24 [...] much better now Pain: No pain OBJECTIVE Urologic Surgeon Right 60 pounds Left 55 pounds OT [...] jar: 3 - Moderate difficulty Do heavy asbestos surveyor (eg wash nazario, wash floors) : 2 [...] resistive band for IR/ER, scap retraction. AROM, vegetable grower measured as above Pain Reassessment: no pain [...] 9:45 AM EDT Office Visit Adult Medicine [address] [phone] Ora Sweeney MD [address] [place] [phone] 06/04/2024 10:30 AM EDT Consult Bariatric Surgery - [facility] [address] [phone] Lita Verde PA [address] [address] 06/04/2024 11:45 AM EDT Office Visit Orthopedic Surgery [facility] [address] [phone] Luis Armando Eller MD [address] [address] 06/05/2024 9:45 AM EDT Office Visit Orthopedic Surgery [facility] [address] [phone] Duke Dunn, DPM [address] [address] 06/06/2024 2:30 PM EDT Office Visit Obstetrics and Gynecology - [address] [phone] Stacie Martinez, [facility] [address] [place] [address] 06/30/2024 10:30 AM EDT Office Visit Orthopedic Surgery [facility] [address] [phone] Luis Armando Eller MD [address] [address] 07/02/2024 9:30 AM EDT Office Visit Orthopedic Surgery [facility] [address] [phone] Lorie Moore NP [address] [address] 07/09/2024 9:30 AM EDT Office Visit Endocrinology - [place] [address] [place] [address] Jayesh Pineda MD [address] [place] [address] 09/22/2024 8:45 AM EDT Office Visit Pulmonolgy - [facility] [address] [phone] Pretty Le MD [address] [address] documented as of this encounter Visit Diagnoses Diagnosis Rotator cuff tear arthropathy of left shoulder- Primary documented in this encounter Care Teams Gas Pumping Station Operator Relationship Specialty Start Date End Date Ora Sweeney MD [address] [place] [address] PCP - General Internal Medicine 01/09/24 documented as of this encounter
--- OUTSIDE RECORDS SUMMARY | 2024-04-15 12:52 | XMS_ITS | Clinical Summary ---
Author Organization [facility] Address [address] [place] [address] Care Team Providers Care Painter Ordnance Name Role Phone Ora Sweeney MD Primary [...] Breath for up to 363 days. 09/19/2023 09/16/2024 Active albuterol HFA (Ventolin HFA) 90 mcg/actuation [...] route 2 times daily. Active blood-glucose meter [facility] Use to test blood sugars once daily [...] 1 tablet by mouth daily. 11/16/2020 Active fluticasone-umecl idinium-vilantero l (Trelegy Ellipta) 100-62.5-25 mcg inhaler Inhale 1 Puff into the lungs daily for 363 days. 09/19/2023 09/16/2024 Active UNABLE TO FIND Inhale into the lungs. [employer]-supplies only Active FREESTYLE LANCETS [facility] Use to test blood sugars once daily [...] Tablet by mouth at bedtime. 09/26/2023 Active onabotulinumtoxin A (Botox) 200 unit injection Active senna (SENOKOT) [...] EACH NOSTRIL ONCE DAILY. 11/19/2023 Active Stool Softener-Laxative 8.6-50 mg per tablet 12/06/2023 Active aspirin 325 mg tablet Take 1 tablet (325 mg total) by mouth 1 (one) time each day. Active ibuprofen (ADVIL,MOTRIN) 800 mg tablet 12/06/2023 Active Nucala 100 mg/mL auto-injector 07/25/2023 Active famotidine (PEPCID) 20 mg tablet Take 1 tablet (20 mg total) by mouth 2 (two) times a day if needed for heartburn. 90 tablet 1 01/23/2024 04/22/2024 Active atorvastatin (LIPITOR) 20 mg tablet TAKE 1 TABLET BY MOUTH EVERY DAY 90 tablet 1 01/31/2024 Active venlafaxine XR (EFFEXOR-XR) 37.5 mg 24 hr capsule 01/21/2024 Active amLODIPine (NORVASC) 10 mg tablet TAKE 1 TABLET BY MOUTH EVERY DAY 90 tablet 1 02/13/2024 Active levothyroxine (SYNTHROID, LEVOTHROID) 137 mcg tabletIndications :Atrophy of thyroid (acquired) TAKE 1 TABLET BY MOUTH EVERY DAY 45 tablet 1 02/14/2024 Active losartan (COZAAR) 100 mg tablet TAKE 1 TABLET BY MOUTH EVERY DAY 90 tablet 03/14/2024 Active Active Problems Problem Noted Date Diagnosed Date [...] Future Anxiety and depression 06/14/2020 Overview (12/16/2023): [facility] psychiatry Asthma, moderate persistent 05/10/2020 Overview (12/16/2023): [...] requirements Supply letter has been sent to [facility] Return to clinic in 1 year Pilar [...] Encounters Date Type Department Care Team Description 04/11/2024 9:45 AM EST Office Visit [address] [phone] Jayesh Pineda MD Type 2 diabetes mellitus with other specified complication, without long-term current use of insulin (CMS/HCC) (Primary Dx); Hyperparathyroidism (CMS/HCC); Hypothyroidism, unspecified type 04/03/2024 9:45 AM EST Office Visit Orthopedic Surgery [facility] 250 175 [facility] [address] [place] [phone] Duke Dunn DPM Controlled type 2 diabetes with neuropathy (CMS/HCC) (Primary Dx); PVD (peripheral vascular disease) (CMS/HCC); Pain in both feet; Difficulty walking; Dermatophytosis, nail 03/27/2024 10:00 AM EST Treatment [facility] [address] [phone] Chema Martins, SARAH Rotator cuff tear arthropathy of left shoulder (Primary Dx) 03/26/2024 9:45 AM EST Office Visit Orthopedic [facility] 160 175 [facility] 160 [place] [phone] Luis Armando Eller MD S/P left rotator cuff repair (Primary Dx) 03/25/2024 9:00 AM EST Treatment [facility] [address] [phone] Lisa Jones COTA 03/20/2024 11:00 AM EST Treatment [facility] [address] [place] [phone] Chema Martins, OT Rotator cuff tear arthropathy of left shoulder (Primary Dx) 03/18/2024 1:00 PM EST Treatment [facility] [address] [phone] Lisa Jones COTA 03/13/2024 9:30 AM EST Treatment [facility] [address] [phone] Morris Melo, DEL RIO/L Rotator cuff tear arthropathy of left shoulder (Primary Dx) 03/11/2024 9:30 AM EST Treatment [facility] [address] [phone] Lisa Jones COTA Rotator cuff tear arthropathy of left shoulder (Primary Dx) 03/06/2024 9:30 AM EST Treatment [facility] [address] [phone] Lisa Jones COTA Rotator cuff tear arthropathy of left shoulder (Primary Dx); S/P left rotator cuff repair 03/04/2024 8:45 AM EST Treatment [facility] [address] [phone] Lisa Jones COTA 02/28/2024 9:00 AM EST Treatment [facility] [address] [phone] Chema Martins, OT Rotator cuff tear arthropathy of left shoulder (Primary Dx) 02/27/2024 9:30 AM EST Office Visit [facility] 160 175 [facility] 160 [place] [phone] Genny Arreguin PA Post-operative state (Primary Dx); S/P left rotator cuff repair 02/20/2024 9:45 AM EST Treatment [facility] [address] [phone] Morris Melo COTA/L Rotator cuff tear arthropathy of left shoulder (Primary Dx) 02/14/2024 9:30 AM EST Treatment [facility] [address] [phone] Chema Martins, OT Rotator cuff tear arthropathy of left shoulder (Primary Dx) 02/12/2024 9:30 AM EST Treatment [facility] [address] [phone] Lisa Jones COTA 02/05/2024 9:30 AM EST Treatment [facility] [address] [phone] Chema Martins, OT S/P left rotator cuff repair (Primary Dx) 01/31/2024 10:30 AM EST Office Visit [place] [phone] [phone] Lorie Moore NP Primary osteoarthritis of left knee (Primary Dx) 01/31/2024 9:45 AM EST Office Visit Orthopedic [place] [phone] [phone] Duke Dunn DPM Controlled type 2 diabetes with neuropathy (CMS/HCC) (Primary Dx); Pain in both feet; PVD (peripheral vascular disease) (CMS/HCC); Difficulty walking; Dermatophytosis, nail 01/31/2024 8:45 AM EST Treatment [facility] [address] [phone] Chema Martins, OT S/P left rotator cuff repair (Primary Dx); Rotator cuff tear arthropathy of left shoulder 01/24/2024 1:15 PM EST Office Visit [address] [phone] Ora Sweeney MD Controlled type 2 diabetes mellitus without complication, without long-term current use of insulin (CMS/HCC) (Primary Dx); Primary hypertension; Mixed hyperlipidemia; Hypothyroidism, unspecified type 01/24/2024 10:00 AM EST Office Visit Orthopedic [facility] [address] [phone] Lorie Moore NP Primary osteoarthritis of left knee (Primary Dx) 01/21/2024 8:45 AM EST Treatment [facility] [address] [phone] Chema Martins, OT Rotator cuff tear arthropathy of left shoulder (Primary Dx) 01/17/2024 9:45 AM EST Treatment [facility] [address] [phone] Lisa Jones, QUANG S/P left rotator cuff repair 01/16/2024 3:00 PM EST Office Visit [facility] 250 175 [facility] 250 [place] [phone] Lorie Moore NP Primary osteoarthritis of left knee (Primary Dx) 01/14/2024 9:45 AM EST Treatment [facility] [address] [phone] Chema Martins, OT Rotator cuff tear arthropathy [...] Date Site/Laterality Comments KNEE ARTHROSCOPY Right PROCEDURE: IA ARTHROSCOPY KNEE DIAGNOSTIC W/WO SYNOVIAL BX SPX WISDOM TOOTH EXTRACTION PROCEDURE: HISTORICAL WISDOM TEETH EXTRACTION TONSILLECTOMY PROCEDURE: HISTORICAL TONSILLECTOMY; COMMENT: and adenoids SECTION PROCEDURE: HISTORICAL DELIVERY OTHER SURGICAL HISTORY PROCEDURE: IA BIOPSY THYROID PERCUTANEOUS CORE NEEDLE COLONOSCOPY 12/10/2012 PROCEDURE: HISTORICAL COLONOSCOPY; COMMENT: normal; repeat in 3 yrs. sig. hyperplastic polyp OTHER SURGICAL HISTORY PROCEDURE: CYSTOSCOPY/SURG, URETHRA/BLAD NECK; COMMENT: sling procedure for stress incontinence OTHER SURGICAL HISTORY 08/25/2015 Right PROCEDURE: IA EXCISION NAIL MATRIX PERMANENT REMOVAL; COMMENT: right hallux Dr. Rangel COLONOSCOPY 01/31/2016 PROCEDURE: HISTORICAL COLONOSCOPY; COMMENT: 3 small polyps removed- dist.asc =tubular adenoma x 1; other nl tissue. COLONOSCOPY 09/29/2019 PROCEDURE: HISTORICAL COLONOSCOPY; COMMENT: 5 mm ascending colon polyp: Tubular adenoma. UPPER GASTROINTESTINAL ENDOSCOPY 09/29/2019 PROCEDURE: IA UPPER GI ENDOSCOPY PERFORMED; COMMENT: Visually normal on PPI treatment. ESOPHAGOGASTRODUODENOSCOPY 09/22/2021 PROCEDURE: IA EGD TRANSORAL BIOPSY SINGLE/MULTIPLE; COMMENT: EGD including biopsy normal OTHER SURGICAL HISTORY PROCEDURE: HISTORY OTHER; COMMENT: Maxillofacial surgery EXCISION BENIGN SKIN LESION TRUNK / ARM / LEG PROCEDURE: IA EXCISION TUMOR SOFT TISSUE BACK/FLANK SUBQ <3CM; [...] (BMI) of 40.0 to 44.9 in adult ([facility]) 07/15/2019 DX:Class 3 severe obesity du e to excess calories with serious comorbidity and body mass index (BMI) of 40.0 to 44.9 in adult ([facility]) Diabetes mellitus type 2, co ntrolled, without complications ([facility]) 02/16/2021 DX:Diabetes mellitus t ype 2, controlled, without complications ([facility]) Mild concentric left ventric ular hypertrophy 08/23/2021 DX:Mild concentric left vent ricular hypertrophy; COMMENT: Seen on echo study from 08/2021 Fatty liver DX:Fatty liver Anxiety state DX:Anxiety state Asthma DX:Asthma Depressive disorder DX:Depressiv e disorder Asthma, moderate persistent 05/10/2020 DX:A sthma, moderate persistent Pain and swelling of left up per extremity 11/21/2021 DX:Pain and swelling of left upper extremity Shingles DX:Shingles Diabetes mellitus ([facility]/HCC) DX:D iabetes mellitus ([facility]) HLD (hyperlipidemia) 11/21/2021 DX:HLD (hyp erlipidemia) VIRGIE on CPAP DX:VIRGIE on CPAP Depression DX:Depression Overactive bladder DX:Overactive bladder Obesity with alveolar hypove ntilation (CMS/HCC) DX:Obesity with alveolar hypoventilation (HCC) Morbid obesity with BMI of 4 0.0-44.9, adult ([facility]) DX:Morbid obesity with BMI o f 40.0-44.9, adult ([facility]) Asthma-chronic obstructive p ulmonary disease overlap syndrome ([facility]/HCC) 01/30/2022 DX:Asthma-chronic o bstructive pulmonary disease overlap syndrome (HCC) Family History Medical History Relation Name Comments Breast cancer Aunt 1 maternal x 1 Ovarian cancer Aunt 2 maternal x 6 6 maternal au nts also with ov, uterine ca Glaucoma Brother x 2 Coronary artery disease Father [place] a ge 68, HTN, Diabetes, cataract, glaucoma [...] for your loved ones. For example, child adolescent psychiatrist or elderly care for an older adult? [...] 04/11/2024 9:55 AM ES T Respiratory Rate 14 01/24/2024 1:17 PM EST Oxygen Saturation 95% 04/11/2024 9:55 AM EST Inhaled Oxygen Concentration - - Weight 126 kg (277 lb) 04/11/2024 9:55 AM EST Height 160 cm (5' 3 ) 04/11/2024 9:55 AM EST Body Mass Index 49.07 04/11/2024 9:55 AM EST Plan of Treatment Upcoming Encounters Date Type Department Care Team (Late st Contact Info) Description 05/28/2024 9:45 AM EDT Office Visit Adult Medicine [address] [phone] Ora Sweeney MD [address] [place] [address] 06/04/2024 10:30 AM EDT Consult Bariatric Surgery [facility] [address] [phone] Lita Verde PA [address] [address] 06/04/2024 11:45 AM EDT Office Visit Orthopedic Surgery [facility] [address] [phone] Luis Armando Eller MD [address] [address] 06/05/2024 9:45 AM EDT Office Visit Orthopedic Surgery [facility] [address] [phone] Duke Dunn, DPM [address] [address] 06/06/2024 2:30 PM EDT Office Visit Obstetrics and Gynecology - [address] [phone] Stacie Martinez, [facility] 444 [place] [address] 06/30/2024 10:30 AM EDT Office Visit Orthopedic Surgery [facility] [address] [phone] Luis Armando Eller MD [address] [address] 07/02/2024 9:30 AM EDT Office Visit Orthopedic Surgery [facility] [address] [phone] Lorie Moore NP 175 [facility] [address] [place] [address] 07/09/2024 9:30 AM EDT Office Visit Endocrinology - [place] [address] [place], [place] [phone] Jayesh Pineda MD [address] [place] [phone] 09/22/2024 8:45 AM EDT Office Visit [facility]gy [facility] 175 [facility] [address] [place] [address] Pretty Le MD 175 [facility] 200 [place] [address] Health Maintenance Due Date Last Done Comments [...] WO CONTRAST Routine 02/29/2024 2:48 PM EST IA ARTHROCENTESIS/ASPI RATION/INJECTION MAJOR JOINT/BURSA W/O U/S GUIDANCE Routine 01/31/2024 10:30 AM EST Primary osteoarthritis of left knee IA ARTHROCENTESIS/ASPI RATION/INJECTION MAJOR JOINT/BURSA W/O U/S GUIDANCE Routine 01/24/2024 10:00 AM EST Primary osteoarthritis of left knee IA ARTHROCENTESIS/ASPI RATION/INJECTION MAJOR JOINT/BURSA W/O U/S GUIDANCE [...] and Neck Magnetic Resonan ce Historical Provider IMLeyla MRI PROCEDURE S * IA ARTHROCENTESIS/ASPIRATION/INJECTION MAJOR JOINT/BURSA W/O U/S GUIDANCE (01/31/2024 [...] performed: yes ?? Lorie Moore [facility] * IA ARTHROCENTESIS/ASPIRATION/INJECTION MAJOR JOINT/BURSA W/O U/S GUIDANCE (01/24/2024 10:00 AM EST) Narrative Dayton Gaytan MD - 01/24/2024 10:00 AM EST Lorie Moore NP ? 01/24/2024 10:25 AM L [...] ??Pre-procedure timeout performed: yes ?? Lorie Moore SURVEYOR ROD HELPER [facility] * IA ARTHROCENTESIS/ASPIRATION/INJECTION MAJOR JOINT/BURSA W/O U/S GUIDANCE (01/16/2024 [...] ??Pre-procedure timeout performed: yes ?? Lorie Moore SURVEYOR ROD HELPER [facility] * (ABNORMAL) Hemoglobin A1c (11/26/2023) [facility] Hemoglobin A1C 7.4(A) 6.5 % Blood Venous blood specimen / Unknown Historical Provider LAB BLOOD ORDERAB LES * Annual BMP Blood Test (11/23/2023) [facility] Annual BMP Blood Test Abstracted Historical Provider MD JC BURROWS E * Urine Albumin Creatinine Ratio (10/04/2023) [facility] Urine Albumin Creatinine Ratio Abstracted Historical Provider MD JC BURROWS E * (ABNORMAL) Lipid panel (10/04/2023) [facility] LDL/HDL Ratio 4 0 - 4 Triglycerides 173(A) 0 - 150 mg/dL Cholesterol 146 0 - 200 mg/dL HDL 39(A) 40 mg/dL LDL Cholesterol 73 0 - 100 mg/dL Blood Venous blood specimen / Unknown Historical Provider ND LAB BLOOD ORDERAB LES * Falls Risk Assessment (10/01/2023) [facility] Falls Risk Assessment Abstracted [facility] Provider [facility] * Depression Screening (10/01/2023) [facility] Depression Screening Abstracted [facility] Provider [facility] * Diabetes Foot Exam (10/01/2023) [facility] Diabetes: Annual Foot Exam Abstracted [facility] Provider [facility] SCREENING MAMMOGRAPHY BI 2-VIEW BREAST INC CAD [...] HPV No interpreta tion,abstr acted Historical Provider [facility] MARKOS E * DXA BONE DENSITY STUDY 1+ SITS AXIAL SK (03/31/2021 9:28 AM EST) Anatomical Region Laterality [...] classified as having normal bone density. [facility] Department of Internal Medicine recommends using National [...] beclassified as having normal bone density. [facility] Department of Internal Medicine recommendsusing National Osteoporosis [...] fracture risk by FRAX. Jayesh Pineda MD IMG DXA PROCEDURES * Colonoscopy (09/29/2019) [facility] Colonoscopy No interpreta tion,abstr acted Anatomical Region Laterality Modality Other Historical Provider MD JC BURROWS E * Hepatitis C Screening (09/22/2014) [facility] Hepatitis C Screening Abstracted Historical Provider MD JC eBrry from Last 3 Months or Most Recently Relevant to Health Maintenance Care Teams Painter Ordnance Relationship Specialty Start Date End Date Ora Sweeney MD [address] [place] [id number] PCP - General Internal Medicine 01/09/24
--- NOTE | 2024-04-15 12:54 | PM.OP ---
Brief Operative Note Date of Service: 04/15/24 Pre-op diagnosis: GERD Post-op diagnosis: same Procedure: PROCEDURE DATE: 04/15/2024 PREOPERATIVE DIAGNOSIS: GERD POSTOPERATIVE DIAGNOSIS: ?Same as above. 1) small hiatal hernia, 2) superficial duodenal ulcers, 3) esophagitis PROCEDURE: Vikyygsc-jvgkyj-qehxjsfsrmyc with biopsies Surgeon: ?Jerrod Domínguez M.D.. Ph.D. Lot Attendant: None ? Anesthesia: IV sedation Estimated blood loss: ?Minimal FINDINGS AND PROCEDURE: ? OPERATIVE INDICATIONS: ?The patient is a 63 year old female known to me who is interested in bariatric surgery. The patient has GERD. Based on this information I recommended an upper endoscopy to evaluate the patient's symptoms. Risks and complications of the surgery were discussed with the patient in advance particularly the possibility of perforation or bleeding that may require surgical intervention. The patient understood the risks and was in agreement with the plan. ? PROCEDURE: After informed consent was obtained by the patient, the patient was ?transferred to the Operating Room and was placed in the supine position.? After successful induction of IV sedation, a mouth block was inserted and the patient was placed in the left lateral decubitus position. An upper endoscopy was performed next, the oropharynx and esophagus appeared within the normal limits. There was a small 2cm hiatal hernia. The z-line was irregular with tongues of gastric mucosa protruding into the esophagus. Two biopsies were obtained from the distal esophagus 2-3 cm proximal to the GE junction and two additional biopsies from the GE junction. The stomach was entered and it appeared to be of normal size. There was no gastritis. There was no stricture or ulcer. A biopsy was obtained from the gastric fundus and the antrum. No significant bleeding was noted from any of the biopsy sites. Retroflexion of the scope confirmed the presence of a small diaphragmatic hernia. The scope was then advanced into the duodenum. There were several superficial duodenal ulcers with surrounding erythema, One of these was biopsied. At that point the duodenum ?and the stomach were decompressed and the scope was withdrawn from the patient's mouth. The patient extubated and was transferred in stable condition to the Recovery Room for further care. I was present and performed all steps of the procedure. There were no residents to assist with this case. Jerrod Domínguez M.D., Ph.D. Surgeon: Randy Domínguez MD Anesthesia: MAC Was an Lot Attendant used for this Procedure?: No Estimated blood loss (mL): 0 IV fluids (mL): 400 Pathology: other (1) antrum x1, 2) fundus x1, 3) GE junction x2, 4) distal esophagus x2, 5) duodenum x1) Condition: stable Disposition: PACU
[2024-04-15 12:59] LABS: Glucose, Whole Blood 120 mg/dL (60-115)
[2024-04-15 13:40] VITALS: BP 146/68; PULSE 87; RESP 14; TEMP 36.6; O2SAT 99
[2024-04-15 14:06] VITALS: BP 145/67; PULSE 78; RESP 18; TEMP 36.6; O2SAT 95
== END 2024-04-15 14:25 | disposition home or self-care (01) ==
PROVIDERS: PCP Internal Medicine; Visit Provider Surgery
PROC: 0DJ08ZZ Inspection of Upper Intestinal Tract, Via Natural or Artificial Opening Endoscopic (ICD-10-PCS; CPT 43235; principal; 2024-04-15 13:10)
DX: K21.9 Gastro-esophageal reflux disease without esophagitis (principal); E66.01 Morbid (severe) obesity due to excess calories; Z68.42 Body mass index [BMI] 45.0-49.9, adult; K20.80 Other esophagitis without bleeding; K26.9 Duodenal ulcer, unspecified as acute or chronic, without hemorrhage or perforation; K44.9 Diaphragmatic hernia without obstruction or gangrene; I10 Essential (primary) hypertension; G43.E09 Chronic migraine with aura, not intractable, without status migrainosus; G44.039 Episodic paroxysmal hemicrania, not intractable; H53.129 Transient visual loss, unspecified eye; G47.33 Obstructive sleep apnea (adult) (pediatric); R41.89 Other symptoms and signs involving cognitive functions and awareness; F32.A Depression, unspecified; F41.9 Anxiety disorder, unspecified; J45.909 Unspecified asthma, uncomplicated; Z79.51 Long term (current) use of inhaled steroids; Z79.85 Long-term (current) use of injectable non-insulin antidiabetic drugs; Z79.899 Other long term (current) drug therapy; Z99.89 Dependence on other enabling machines and devices; Z88.0 Allergy status to penicillin; Z88.8 Allergy status to other drugs, medicaments and biological substances; Z98.890 Other specified postprocedural states
CPT/HCPCS: 43239; 82947; 88305; J2003; J2250; J2704

== ENCOUNTER 2024-04-15 12:06 | Outpatient (REF) | payer OTHER, SELFPAY | END 2024-04-15 12:07 | disposition home or self-care (01) | LOC: HO.XRAY 12:06 | PROVIDERS: PCP Internal Medicine; Visit Provider Surgery | DX: Z13.89 Encounter for screening for other disorder (principal) ==

== ENCOUNTER 2024-04-22 09:09 | Outpatient (REF) | payer OTHER, SELFPAY ==
--- NOTE | ~2024-04-22 | XR_ITS ---
CLINICAL HISTORY: E66.01 - Morbid (severe) obesity due to excess calories 2 view chest x-ray. Comparison: 03/16/2020. Findings: No consolidation or effusion Heart size normal No acute fracture. Vertebral disc margin hypertrophic osteophytes are present at the lower dorsal levels. Impression: Mild focal peripheral atelectasis in the left mid lung field. The lungs are otherwise clear. This document has been electronically signed by: Dakota Mcleod MD on 04/22/2024 15:31:48
--- NOTE | 2024-04-22 09:16 | ECG_ITS ---
Test Reason : mor obs Blood Pressure : */* mmHG Vent. Rate : 62 BPM Atrial Rate : 62 BPM P-R Int : 174 ms QRS Dur : 144 ms QT Int : 308 ms P-R-T Axes : 43 87 -39 degrees QTcB Int : 312 ms Normal sinus rhythm Right bundle branch block Abnormal ECG When compared with ECG of 06-May-2020 10:01, Right bundle branch block has replaced Incomplete right bundle branch block Referred By: Randy Domínguez Electronically Signed By: MARII THURSTON MD
[2024-04-22 09:36] LABS: MANUAL DIFF FLAG NO
--- OUTSIDE RECORDS SUMMARY | 2024-04-22 10:08 | XMS_ITS | Encounter Summary ---
Author Organization [facility] Address [address] [place] [address] Care Team Providers Care Filling Station Laborer Name Role Phone Teressa Solis DO Primary Care Pro vider Unavailable Mina Pretty DO Primary Care Provider Ailyn Shweta Pretty MD Primary Care Provider Ora Diaz MD Primary Care Prov ider Jl Mendez MD Unavailable [phone] Jannette Boudreaux MD Unavailable [phone] Tenisha Mendieta PA-C Unavailable [phone] Julio Monk PA-C Unavailable Luis Armando Eller MD Unavailable [phone] Jayesh Pineda MD Unavailable Kelsi Tejada MD Unavailable Unavailable Pretty Le MD Unavailable Vesta Michael PA-C Unavailable [facility] Unavailable Encounter Details Date Type Department Care Team Description 08/26/2015 Orders Only Adult Medicine [address] [phone] Teressa Solis DO Hypothyroidism due to acquired atrophy of thyroid (Primary Dx) Social History Tobacco Use Types Packs/Day Years Used Date Smoking Tobacco: Never Smokeless Tobacco: Never Alcohol Use Standard Drinks/Week Comments No 0 (1 standard drink = 0.6 oz pur e alcohol) Sex Assigned at Date Recorded Female 08/03/2020 10:16 PM EDT Job Start Date Occupation Industry Not on file Not on file Not on file documented as of this encounter Plan of Treatment Not on file documented as of this encounter Results * TSH (08/30/2015 11:13 AM EDT) TSH 1.86 0.40 - 4.00 mIU/ml 08/30/2015 1:09 PM EDT [facility] 08/30/2015 11:1 3 AM EDT 08/30/2015 11:13 AM EDT Teressa Grace DO LAB [facility] [address] [facility] documented in this encounter Visit Diagnoses Diagnosis Hypothyroidism due to acquired atrophy of thyroid- Primary documented in this encounter Care Teams Filling Station Laborer Relationship Specialty Start Date End Date Teressa Solis DO PCP - General Internal Medicine 12/18/13 09/15/20 Mina Pretty DO PCP - General Internal Medicine 09/16/20 1 Shweta Tellez MD PCP - General Internal Medicine 01/12/21 10/10/21 Ora Ronquillo MD [address] [place] [address] PCP - General Internal Medicine 10/11/21 Jl Mendez MD [address] [place] [address] Dr [address] [place] [address] Specialist Cardiovascular Disease 10/13/21 Jannette Boudreaux MD [address] [address] Surgeon Neurosurgery 04/07/22 Tenihsa Mendieta PA-C [address] [address] Specialist Neurosurgery 04/07/22 Julio Monk PA-C 175 [facility] [address] [place] [address] Specialist Neurosurgery 04/07/22 Luis Armando Eller MD 175 [facility] 250 [place] [address] Specialist ORTHOPEDIC SURGERY 10/01/23 Jayesh Pineda MD [address] [place] [address] Specialist Endocrinology 10/01/23 Kelsi Tejada MD [address] [place] [address] Specialist Allergy & Immunology 10/01/23 Pretty Le MD 175 [facility] 200 [place] [phone] Specialist Pulmonology 10/01/23 Vesta Michael PA-C 300 [facility] 210 [place] [phone] Specialist Vascular Surgery 10/01/23 [facility] [address] [place] [address] Specialist Optometry 10/01/23 documented as of this encounter
--- OUTSIDE RECORDS SUMMARY | 2024-04-22 10:08 | XMS_ITS | Clinical Summary ---
Author Organization [facility] Address [address] [place] [address] Care Team Providers Care Cardiology Specialist Name Role Phone rOa Sweeney MD Primary Care Prov ider Allergies [...] Rabbit Epithelium Allergenic Extract 04/10/2016 rabbits Medications acetaminophen (TYLENOL 8 HOUR) 650 mg 8 hr tablet Take 1 Tablet by mouth 3 times daily as needed for Pain (mild pain). 3 Active albuterol 2.5 mg /3 mL (0.083 %) nebulizer solution Take 1 Vial by nebulization 3 times daily for 180 days. 1 Active albuterol HFA (PROAIR HFA ; PROVENTIL HFA ; VENTOLIN HFA) 90 mcg/actuation inhaler Inhale 2 Puffs into the lungs every 6 hours as needed for Cough, Wheezing or Shortness of Breath for up to 363 days. 4 09/17/19 25 Active albuterol HFA (Ventolin HFA) 90 mcg/actuation inhaler Inhale 2 Puffs into the lungs every 6 hours as needed for Cough or Wheezing. 4 Active ammonium lactate (LAC-HYDRIN) 12 % lotion Apply to soles of feet daily. At night wear socks to bed 4 Active betamethasone, augmented, (DIPROLENE-AF) 0.05 % cream APPLY TO AFFECTED AREAS IN THIN LAYER TWICE A DAY UNTIL RESOLVED. 4 Active azelastine HCl (ASTELIN NASL) 2 Sprays by Nasal route 2 times daily. Active blood-glucose meter [facility] Use to test blood sugars once daily in the morning, before breakfast. 1 Active cloNIDine (CATAPRES) 0.1 mg tablet TAKE 1/2-1 TABLET BY MOUTH TWICE A DAY NEEDED FOR ANXIETY- NEEDED AND TOLERATED 3 Active EPINEPHrine (EpiPen 2-Nehemiah) 0.3 mg/0.3 mL injection Inject 1 Device as directed as needed (anaphylaxis). Use as directed 3 Active fexofenadine (CRISTINA) 180 mg tablet Take 1 tablet by mouth daily. 1 Active fluticasone-ume clidinium-vilan terol (Trelegy Ellipta) 100-62.5-25 mcg inhaler Inhale 1 Puff into the lungs daily for 363 days. 4 09/17/19 25 Active UNABLE TO FIND Inhale into the lungs. [employer]-supplies only Active FREESTYLE LANCETS MISC Use to test blood sugars once daily in the morning, before breakfast. 3 Active blood sugar diagnostic (FreeStyle Lite Strips) test strip Use to test blood sugars once daily in the morning, before breakfast. 3 Active ketoconazole (NIZORAL) 2 % cream Apply 1 Dose topically 2 times daily for 30 days. 4 Active ketotifen (ZADITOR) 0.025 % ophthalmic solution ketotifen 0.025 % (0.035 %) eye drops Active lidocaine (LIDODERM) 5 % patch Place 1 Patch onto the skin every 24 hours for 28 days. Apply for no more than 12 hours in any 24 hour period. B02.29 2 Active montelukast (SINGULAIR) 10 mg tablet Take 1 Tablet by mouth at bedtime. 4 Active onabotulinumtox Monica (Botox) 200 unit injection Activ e senna (SENOKOT) 8.6 mg tablet Take 1 Tablet by mouth at bedtime. 4 Active sertraline (ZOLOFT) 100 mg tablet TAKE 1 TABLET BY MOUTH EVERY DAY IN THE MORNING 3 Active SUMAtriptan (IMITREX) 50 mg tablet TAKE 1 TO 2 TABLETS FOR MIGRAINE SYMPTOMS AND MAY REPEAT ONCE 2 HOURS LATER IF NEEDED 2 Active tezepelumab-ekk o (Tezspire) 210 mg/1.91 mL (110 mg/mL) injection Inject 210 mg into the skin every 30 days. Active traZODone (DESYREL) 100 mg tablet TAKE 1 TABLET EVERY NIGHT AT BEDTIME NEEDED CAN TAKE 1/2 TO ONE TABLET AT NIGHT TO HELP SLEEP 4 Active Trulicity 1.5 mg/0.5 mL pen injector injection Inject 0.5 mL (1.5 mg total) under the skin. 4 Active docusate sodium (COLACE) 100 mg capsule Take 1 capsule (100 mg total) by mouth 2 (two) times a day. 4 Active cholecalciferol (VITAMIN D-3) 125 mcg (5,000 unit) capsule Take 1 capsule (5,000 Units total) by mouth 1 (one) time each day. 4 Active triamcinolone (NASACORT) 55 mcg nasal inhaler INSTILL 1 TO 2 SPRAYS INTO EACH NOSTRIL ONCE DAILY. 4 Active Stool Softener-Laxati ve 8.6-50 mg per tablet 4 Active aspirin 325 mg tablet Take 1 tablet (325 mg total) by mouth 1 (one) time each day. Active ibuprofen (ADVIL,MOTRIN) 800 mg tablet 4 Active Nucala 100 mg/mL auto-injector 4 Active famotidine (PEPCID) 20 mg tablet Take 1 tablet (20 mg total) by mouth 2 (two) times a day if needed for heartburn. 90 tablet 1 4 04/22/19 25 Active atorvastatin (LIPITOR) 20 mg tablet TAKE 1 TABLET BY MOUTH EVERY DAY 90 tablet 1 4 Active venlafaxine XR (EFFEXOR-XR) 37.5 mg 24 hr capsule 4 Active amLODIPine (NORVASC) 10 mg tablet TAKE 1 TABLET BY MOUTH EVERY DAY 90 tablet 1 4 Active levothyroxine (SYNTHROID, LEVOTHROID) 137 mcg tabletIndicatio ns:Atrophy of thyroid (acquired) TAKE 1 TABLET BY MOUTH EVERY DAY 45 tablet 1 4 Active losartan (COZAAR) 100 mg tablet TAKE 1 TABLET BY MOUTH EVERY DAY 90 tablet 5 Active Active Problems Problem Noted Date Diagnosed [...] Future Anxiety and depression 06/14/2020 Overview (12/16/2023): [facility] psychiatry Asthma, moderate persistent 05/10/2020 Overview [...] requirements Supply letter has been sent to [facility] Return to clinic in 1 year [...] Description 04/11/2024 9:45 AM EST Office Visit [address] [address] Jayesh Pineda MD Type 2 diabetes mellitus with other specified complication, without long-term current use of insulin (CMS/HCC) (Primary Dx); Hyperparathyroidism (CMS/HCC); Hypothyroidism, unspecified type 04/03/2024 9:45 AM EST Office Visit Orthopedic Surgery [facility] 250 175 [facility] 250 [place] [phone] Duke Dunn DPM Controlled type 2 diabetes with neuropathy (CMS/HCC) (Primary Dx); PVD (peripheral vascular disease) (CMS/HCC); Pain in both feet; Difficulty walking; Dermatophytosis, nail 03/27/2024 10:00 AM EST Treatment [facility] [address] [phone] Chema Martins, SARAH Rotator cuff tear arthropathy of left shoulder (Primary Dx) 03/26/2024 9:45 AM EST Office Visit Orthopedic Surgery [facility] 160 175 [facility] 160 [place] [phone] Luis Armando Eller MD S/P left rotator cuff repair (Primary Dx) 03/25/2024 9:00 AM EST Treatment [facility] [address] [phone] Lisa Jones COTA 03/20/2024 11:00 AM EST Treatment [facility] [address] [phone] Chema Martins, OT Rotator cuff tear arthropathy of left shoulder (Primary Dx) 03/18/2024 1:00 PM EST Treatment [facility] [address] [phone] Lisa Jones COTA 03/13/2024 9:30 AM EST Treatment [facility] [address] [phone] Morris Melo, DEL RIO/L Rotator cuff tear arthropathy of left shoulder (Primary Dx) 03/11/2024 9:30 AM EST Treatment [facility] [address] [phone] Lisa Jones COTA Rotator cuff tear arthropathy of left shoulder (Primary Dx) 03/06/2024 9:30 AM EST Treatment [facility] [address] [phone] Lisa Jones COTA Rotator cuff tear arthropathy of left shoulder (Primary Dx); S/P left rotator cuff repair 03/04/2024 8:45 AM EST Treatment [facility] [address] [phone] Lisa Jones, DEL RIO 02/28/2024 9:[address] [facility] [address] [phone] Chema Martins, OT Rotator cuff tear arthropathy of left shoulder (Primary Dx) 02/27/2024 9:30 AM EST Office Visit Orthopedic Surgery [facility] [place] 160 175 [facility] 160 [place] [phone] Genny Arreguin PA Post-operative state (Primary Dx); S/P left rotator cuff repair 02/20/2024 9:45 AM EST Treatment [facility] [address] [phone] Morris Melo COTA/L Rotator cuff tear arthropathy of left shoulder (Primary Dx) 02/14/2024 9:30 AM EST Treatment [facility] [address] [phone] Chema Martins, OT Rotator cuff tear arthropathy of left shoulder (Primary Dx) 02/12/2024 9:30 AM EST Treatment [facility] [address] [phone] Lisa Joens COTA 02/05/2024 9:[address] [facility] [address] [phone] Chema Martins, OT S/P left rotator cuff repair (Primary Dx) 01/31/2024 10:30 AM EST Office Visit Orthopedic [facility] [address] [phone] Lorie Moore NP Primary osteoarthritis of left knee (Primary Dx) 01/31/2024 9:45 AM EST Office Visit Orthopedic [facility] [address] [phone] Duke Dunn DPM Controlled type 2 diabetes with neuropathy (CMS/HCC) (Primary Dx); Pain in both feet; PVD (peripheral vascular disease) (CMS/HCC); Difficulty walking; Dermatophytosis, nail 01/31/2024 8:45 AM EST Treatment [facility] [address] [phone] Chema Martins, OT S/P left rotator cuff repair (Primary Dx); Rotator cuff tear arthropathy of left shoulder 01/24/2024 1:15 PM EST Office Visit [address] [phone] Ora Sweeney MD Controlled type 2 diabetes mellitus without complication, without long-term current use of insulin (CMS/HCC) (Primary Dx); Primary hypertension; Mixed hyperlipidemia; Hypothyroidism, unspecified type 01/24/2024 10:00 AM EST Office Visit Orthopedic [facility] [address] [phone] Lorie Moore NP Primary osteoarthritis of left knee (Primary Dx) 01/21/2024 8:45 AM EST Treatment [facility] 175 [facility] 350 [place] [address] Chema Martins, OT Rotator cuff tear arthropathy [...] Date Site/Laterality Comments KNEE ARTHROSCOPY Right PROCEDURE: MN ARTHROSCOPY KNEE DIAGNOSTIC W/WO SYNOVIAL BX SPX WISDOM TOOTH EXTRACTION PROCEDURE: HISTORICAL WISDOM TEETH EXTRACTION TONSILLECTOMY PROCEDURE: HISTORICAL TONSILLECTOMY; COMMENT: and adenoids SECTION PROCEDURE: HISTORICAL DELIVERY OTHER SURGICAL HISTORY PROCEDURE: MN BIOPSY THYROID PERCUTANEOUS CORE NEEDLE COLONOSCOPY 12/10/2012 PROCEDURE: HISTORICAL COLONOSCOPY; COMMENT: normal; repeat in 3 yrs. sig. hyperplastic polyp OTHER SURGICAL HISTORY PROCEDURE: CYSTOSCOPY/SURG, URETHRA/BLAD NECK; COMMENT: sling procedure for stress incontinence OTHER SURGICAL HISTORY 08/25/2015 Right PROCEDURE: MN EXCISION NAIL MATRIX PERMANENT REMOVAL; COMMENT: right hallux Dr. Rangel COLONOSCOPY 01/31/2016 PROCEDURE: HISTORICAL COLONOSCOPY; COMMENT: 3 small polyps removed- dist.asc =tubular adenoma x 1; other nl tissue. COLONOSCOPY 09/29/2019 PROCEDURE: HISTORICAL COLONOSCOPY; COMMENT: 5 mm ascending colon polyp: Tubular adenoma. UPPER GASTROINTESTINAL ENDOSCOPY 09/29/2019 PROCEDURE: MN UPPER GI ENDOSCOPY PERFORMED; COMMENT: Visually normal on PPI treatment. ESOPHAGOGASTRODUODENOSCOPY 09/22/2021 PROCEDURE: MN EGD TRANSORAL BIOPSY SINGLE/MULTIPLE; COMMENT: EGD including biopsy normal OTHER SURGICAL HISTORY PROCEDURE: HISTORY OTHER; COMMENT: Maxillofacial surgery EXCISION BENIGN SKIN LESION TRUNK / ARM / LEG PROCEDURE: MN EXCISION TUMOR SOFT TISSUE BACK/FLANK SUBQ <3CM; [...] of 40.0 to 44.9 in adult ([facility]) Diabetes mellitus type 2, co ntrolled, without complications ([facility]) 02/16/2021 DX:Diabetes mellitus t ype 2, controlled, without complications ([facility]) Mild concentric left ventric ular hypertrophy 08/23/2021 DX:Mild concentric left vent ricular hypertrophy; COMMENT: Seen on echo study from 08/2021 Fatty liver DX:Fatty liver Anxiety state DX:Anxiety state Asthma DX:Asthma Depressive disorder DX:Depressiv e disorder Asthma, moderate persistent 05/10/2020 DX:A sthma, moderate persistent Pain and swelling of left up per extremity 11/21/2021 DX:Pain and swelling of left upper extremity Shingles DX:Shingles Diabetes mellitus ([facility]) DX:D iabetes mellitus (HCC) HLD (hyperlipidemia) 11/21/2021 DX:HLD (hyp erlipidemia) VIRGIE on CPAP DX:VIRGIE on CPAP Depression DX:Depression Overactive bladder DX:Overactive bladder Obesity with alveolar hypove ntilation (CMS/HCC) DX:Obesity with alveolar hypoventilation (HCC) Morbid obesity with BMI of 4 0.0-44.9, adult (CMS/HCC) DX:Morbid obesity with BMI o f 40.0-44.9, adult ([facility]) Asthma-chronic obstructive p ulmonary disease overlap syndrome ([facility]) 01/30/2022 DX:Asthma-chronic o bstructive pulmonary disease overlap syndrome (HCC) Family History Medical History Relation Name Comments Breast cancer Aunt 1 maternal x 1 Ovarian cancer Aunt 2 maternal x 6 6 maternal au nts also with ov, uterine ca Glaucoma Brother x 2 Coronary artery disease Father [place] a ge 68, HTN, Diabetes, cataract, glaucoma [...] What is your living situation? 1 03/25/2023 Comments No Sex and Gender Information Value Date Recorded Sex Assigned at Not on file Legal Sex Female 3:50 AM EST Gender Identity Not on file Sexual Orientation Not on file Obstetrics History Last Filed [...] 9:45 AM EDT Office Visit Adult Medicine [facility] [address] [place] [address] Ora Sweeney MD [address] [place] [address] 06/04/2024 10:30 AM EDT Consult Bariatric Surgery [place] [address] [phone] Lita Verde PA 271 [facility] 120 [place] [address] 06/04/2024 11:45 AM EDT Office Visit Orthopedic Surgery [facility] 160 175 [facility] 160 [place] [phone] Luis Armando Eller MD [address] [address] 06/05/2024 9:45 AM EDT Office Visit Orthopedic Surgery [facility] [address] [phone] Duke Dunn, DPM [address] [address] 06/06/2024 2:30 PM EDT Office Visit Obstetrics and Gynecology - [place] [address] [place] [phone] Stacie Martinez, [facility] 444 [place] [address] 06/30/2024 10:30 AM EDT Office Visit Orthopedic Surgery [facility] [address] [phone] Luis Armando Eller MD [address] [address] 07/02/2024 9:30 AM EDT Office Visit Orthopedic Surgery [facility] [address] [phone] Lorie Moore NP [address] [address] 07/09/2024 9:30 AM EDT Office Visit Endocrinology - [place] [address] [place] [phone] Jayesh Pineda MD [address] [place] [address] 09/22/2024 8:45 AM EDT Office Visit Pulmonolgy - [place] [address] [phone] Pretty Le MD [address] [place] [address] [address] [place] [address] Health Maintenance Due Date Last Done Comments Diabetes: Annual Retina Eye Exam 1968 RSV Immunization Patients 60+ Years Old (1 - Risk 60-74 years 1-dose series) 2018 Zoster Vaccines (2 of 2) 02/23/2023 12/29/2022 DTaP,Tdap,and Td Vaccines (3 - Td or Tdap) 05/03/2023 10/31/2022, 08/13/2012 COVID-19 Vaccine ( season) 2023 12/29/2022, 05/18/2021, 09/21/2020, Additional history exists Influenza Vaccine (#1) 2023 , 01/18/2018, 12/20/2016, Additional history exists Pneumococcal Vaccine: 50+ Years (2 of 2 - PCV) 01/16/2024 [...] Screening (Bone Density Screening) 03/31/2031 03/31/2021, 01/21/2018 Hepatitis C Screening Completed 09/22/2014 HIB Vaccines [...] patient's age to complete this topic Meningococcal B Vacine Aged Out No lo nger eligible based on patient's age to complete this topic RSV Immunization Patients Under 20 months Aged Out No longer eligible based on patient's age to complete this topic Varicella Vaccines Aged Out No longer eligible based on patient's age to complete this topic Procedures Procedure Name Priority Date/Time Associated Diagnosis Comments MR BRAIN WO CONTRAST Routine 02/29/2024 2:48 PM EST MN ARTHROCENTESIS/ASPI RATION/INJECTION MAJOR JOINT/BURSA W/O U/S GUIDANCE Routine 01/31/2024 10:30 AM EST Primary osteoarthritis of left knee MN ARTHROCENTESIS/ASPI RATION/INJECTION MAJOR JOINT/BURSA W/O U/S GUIDANCE Routine 01/24/2024 10:00 AM EST Primary osteoarthritis of left knee HEMOGLOBIN [...] Modality Head and Neck Magnetic Resonan ce us Historical Provider MD ASCENCIO MRI PROCEDURES Final Result * MN ARTHROCENTESIS/ASPIRATION/INJECTION MAJOR JOINT/BURSA W/O U/S GUIDANCE (01/31/2024 [...] ?? Verbal ??Pre-procedure timeout performed: yes ?? Result [facility] Lorie Moore [employer] ARCHITECT IN CLINIC/BEDSIDE ORDER ARELIS Final Result * MN ARTHROCENTESIS/ASPIRATION/INJECTION MAJOR JOINT/BURSA W/O U/S GUIDANCE (01/24/2024 [...] ?? Verbal ??Pre-procedure timeout performed: yes ?? Result [facility] Lorie Moore [employer] ARCHITECT IN CLINIC/BEDSIDE ORDER ARELIS Final Result * (ABNORMAL) Hemoglobin A1c (11/26/2023) [facility] Hemoglobin A1C 7.4(A) <=6.5 % Blood Venous blood specimen / Unknown Result [facility] Historical Provider LAB BLOOD ORDERABLES Soni l Result * Annual BMP Blood Test (11/23/2023) Pathologist [facility] Annual BMP Blood Test Abstracted Result [facility] Historical Provider HEALTH MAINTENANCE Final Result * Urine Albumin Creatinine Ratio (10/04/2023) Pathologist [facility] Urine Albumin Creatinine Ratio Abstracted [facility] Final Result * (ABNORMAL) Lipid panel (10/04/2023) [facility] LDL/HDL Ratio 4 0 - 4 Triglycerides 173(A) 0 - 150 mg/dL Cholesterol 146 0 - 200 mg/dL HDL 39(A) >=40 mg/dL LDL Cholesterol 73 0 - 100 mg/dL Blood Venous blood specimen / Unknown Result [facility] LAB BLOOD ORDERABLES Soni l Result * Falls Risk Assessment (10/01/2023) [facility] Falls Risk Assessment Abstracted [facility] Final Result * Depression Screening (10/01/2023) Pathologist [facility] Depression Screening Abstracted [facility] Final Result * Diabetes Foot Exam (10/01/2023) [facility] Diabetes: Annual Foot Exam Abstracted Result [facility] Final Result * SCREENING MAMMOGRAPHY BI 2-VIEW BREAST INC [...] 2-benign Lee Sibley MD IMG XR PROCEDURES Final Resu lt * Cervical Cancer Screening: HPV (04/11/2021) Pathologist [facility] Cervical Cancer Screening: HPV No interpreta tion,abstr acted Historical Provider HEALTH MAINTENANCE Final Result * DXA BONE DENSITY STUDY 1+ SITS [...] classified as having normal bone density. The [facility] Department of Internal Medicine recommends using [...] of fracture risk by FRAX. Procedure Note Ezkeiel Navarrete MD - 02/28/2022 BONE DENSITY Lumbar [...] beclassified as having normal bone density. The [facility] Department of Internal Medicine recommendsusing National [...] fracture risk by FRAX. Jayesh Pineda MD [facility] DXA PROCEDURES Final Result * Colonoscopy (09/29/2019) [facility] Colonoscopy No interpreta tion,abstr acted Anatomical Region Laterality Modality Other Historical Provider HEALTH MAINTENANCE Final Result * Hepatitis C Screening (09/22/2014) [facility] Hepatitis C Screening Abstracted Historical [employer] HEALTH MAINTENANCE Final Result from Last 3 Months or Most Recently Relevant to Health Maintenance Insurance [facility] MEDICARE ADVANTAGE Care Teams Cardiology Specialist Relationship Specialty Start Date End Date Ora Sweeney MD [address] [place] [address] PCP - General Internal Medicine 01/09/24
--- OUTSIDE RECORDS SUMMARY | 2024-04-22 10:09 | XMS_ITS | Encounter Summary ---
Author Organization [facility] Address [address] [place] [address] Care Team Providers Care Area Captain Name Role Phone Teressa Solis DO Primary Care Pro vider Unavailable Mina Pretty DO Primary Care Provider Shweta Cronin MD Primary Care Provider Ora Diaz MD Primary Care Prov ider Jl Mendez MD Unavailable [phone] Jannette Boudreaux MD Unavailable [phone] Tenisha Mendieta PA-C Unavailable [phone] Julio Monk PA-C Unavailable Luis Armando Eller MD Unavailable [phone] Jayesh Pineda MD Unavailable Kelsi Tejada MD Unavailable Unavailable Pretty Le MD Unavailable Vesta Michael PA-C Unavailable [facility] Unavailable Encounter Details Date Type Department Care Team Description 08/27/2015 Data Warehouse Architect Report Medical Records [address] [place] [address] Jeff Ogden MD Social History Tobacco Use Types Packs/Day Years [...] on file documented as of this encounter Visit Diagnoses Not on filedocumented in this encounter Care Teams Area Captain Relationship Specialty Start Date End Date Teressa Solis DO PCP - General Internal Medicine 12/18/13 09/15/20 Mina Pretty DO PCP - General Internal Medicine 09/16/20 Shweta Boucher MD PCP - General Internal Medicine 01/12/21 10/10/21 Ora Ronquillo MD [address] [place] [id number] PCP - General Internal Medicine 10/11/21 Jl Mendez MD [address] [place] [address] Specialist Cardiovascular Disease 10/13/21 Jannette Boudreaux MD [address] [address] Surgeon Neurosurgery 04/07/22 Tenisha Mendieta PA-C [address] [address] Specialist Neurosurgery 04/07/22 Julio Monk PA-C [address] [address] Specialist Neurosurgery 04/07/22 Luis Armando Eller MD [address] [address] Specialist ORTHOPEDIC SURGERY 10/01/23 Jayesh Pineda MD [address] [place] [address] Specialist Endocrinology 10/01/23 Kelsi Tejada MD [address] [place] [address] Specialist Allergy & Immunology 10/01/23 Pretty Le MD 175 [facility] [address] [place] [address] Specialist Pulmonology 10/01/23 Vesta Michael PA-C 300 [facility] [address] [place] [address] Specialist Vascular Surgery 10/01/23 [facility] [address] [place] [address] Specialist Optometry 10/01/23 documented as of this encounter
--- OUTSIDE RECORDS SUMMARY | 2024-04-22 10:09 | XMS_ITS | Encounter Summary ---
Author Organization [facility] Address [address] [place] [address] Care Team Providers Care Meter Engineer Name Role Phone Geno Cueva MD Primary Care Provider Unavailable Teressa Solis DO Primary Care Pro vider Unavailable Mina Pretty DO Primary Care Provider Ailyn Shweta Pretty MD Primary Care Provider Ora Diaz MD Primary Care Prov ider Jl Mendez MD Unavailable [phone] Jannette Boudreaux MD Unavailable [phone] Tenisha MendietaC Unavailable [phone] Julio MonkC Unavailable Luis Armando Eller MD Unavailable [phone] Jayesh Pineda MD Unavailable Kelsi Tejada MD Unavailable Unavailable Pretty Le MD Unavailable Vesta Michael PA-C Unavailable [phone] [facility] Unavailable [phone] Encounter Details Date Type Department Care Team Description 09/27/2012 Clinical Unit Coordinator Report Medical Records [address] [place] [address] [place] PABulmaro Social History Tobacco Use Types Packs/Day Years [...] on filedocumented in this encounter Care Teams Meter Engineer Relationship Specialty Start Date End Date Geno Cueva MD PCP - General Internal Medicine 06/28/1212/17/13 Teressa Solis, PCP - General Internal Medicine 12/18/13 09/15/20 Mina Pretty DO PCP - General Internal Medicine 09/16/20 1 Shweta Tlelez MD PCP - General Internal Medicine 01/12/21 10/10/21 Ora Ronquillo MD [address] [place] [address] PCP - General Internal Medicine 10/11/21 Jl Mendez MD [address] [place] [address] Dr Montiel [address] [place] [address] Specialist Cardiovascular Disease 10/13/21 Jannette Boudreaux MD [address] [address] Surgeon Neurosurgery 04/07/22 Tenisha Mendieta PA-C [address] [address] Specialist Neurosurgery 04/07/22 Julio Monk PA-C [address] [address] Specialist Neurosurgery 04/07/22 Luis Armando Eller MD [address] [address] Specialist ORTHOPEDIC SURGERY 10/01/23 Jayesh Pineda MD [address] [place] [address] Specialist Endocrinology 10/01/23 Kelsi Tejada MD [address] [place] [address] Specialist Allergy & Immunology 10/01/23 Pretty Le MD 175 [facility] [address] [place] [address] Specialist Pulmonology 10/01/23 Vesta Michael PA-C 300 [facility] [address] [place] [address] Specialist Vascular Surgery 10/01/23 [facility] [address] [place], [place] [address] Specialist Optometry 10/01/23 documented as of this encounter
--- OUTSIDE RECORDS SUMMARY | 2024-04-22 10:09 | XMS_ITS | Encounter Summary ---
Author Organization [facility] Address [address] [place] [address] Care Team Providers Care Coconut Cooker Name Role Phone Teressa Solis DO Primary Care Pro vider Unavailable Mina Pretty DO Primary Care Provider Shweta Cronin MD Primary Care Provider Ora Diaz MD Primary Care Prov ider Jl Mendez MD Unavailable [phone] Jannette Boudreaux MD Unavailable [phone] Tenisha Mendieta PA-C Unavailable [phone] Julio Monk PA-C Unavailable [phone] Luis Armando Eller MD Unavailable [phone] Jayesh Pineda MD Unavailable Kelsi Tejada MD Unavailable Unavailable Pretty Le MD Unavailable Vesta Michael PA-C Unavailable [facility] Unavailable Encounter Details Date Type Department Care Team Description 01/11/2017 Senior Data Warehouse Architect Report Medical Records [address] [place] [address] Ivan Muller Social History Tobacco Use Types Packs/Day Years [...] on filedocumented in this encounter Care Teams Coconut Cooker Relationship Specialty Start Date End Date Teressa Solis DO PCP - General Internal Medicine 12/18/13 09/15/20 Mina Pretty DO PCP - General Internal Medicine 09/16/20 Shweta Boucher MD PCP - General Internal Medicine 01/12/21 10/10/21 Ora Ronquillo MD [address] [place] [address] PCP - General Internal Medicine 10/11/21 Jl Mendez MD [address] [place] [address] [place] [address] Specialist Cardiovascular Disease 10/13/21 Jannette Boudreaux MD [address] [address] Surgeon Neurosurgery 04/07/22 Tenisha Mendieta PA-C [address] [address] Specialist Neurosurgery 04/07/22 Julio Monk PA-C [address] [address] Specialist Neurosurgery 04/07/22 Luis Armando Eller MD [address] [address] Specialist ORTHOPEDIC SURGERY 10/01/23 Jayesh Pineda MD 305 [place] [address] Specialist Endocrinology 10/01/23 Kelsi Tejada MD 305 [place] [address] Specialist Allergy & Immunology 10/01/23 Pretty Le MD 175 [facility] [address] [place] [address] Specialist Pulmonology 10/01/23 Vesta Michael PA-C 300 [facility] [address] [place] [address] Specialist Vascular Surgery 10/01/23 [facility] [address] [place] [address] Specialist Optometry 10/01/23 documented as of this encounter
--- OUTSIDE RECORDS SUMMARY | 2024-04-22 10:09 | XMS_ITS | Encounter Summary ---
Author Organization [facility] Address [address] [place] [address] Care Team Providers Care Programmer Name Role Phone Shweta Tellez MD Primary Care Provider Ora Diaz MD Primary Care Prov ider Jl Mendez MD Unavailable [phone] Jannette Boudreaux MD Unavailable [phone] Tenisha Mendieta PA-C Unavailable Julio Monk PA-C Unavailable [phone] Luis Armando Eller MD Unavailable [phone] Jayesh Pineda MD Unavailable Kelsi Tejada MD Unavailable Unavailable Pretty Le MD Unavailable Vesta Michael PA-C Unavailable [facility] Unavailable Encounter Details Date Type Department Care Team Description 05/11/2021 Orders Only Endocrinology - [place] [address] [place] [address] Jayesh Pineda MD [address] [place], [place] [id number] Hyperparathyroidism (HCC) (Primary Dx) Social History Tobacco Use Types Packs/Day Years Used Date Smoking Tobacco: Never Smokeless Tobacco: Never Alcohol Use Standard Drinks/Week Comments No 0 (1 standard drink = 0.6 oz pur e alcohol) Education Answer Date Recorded What is the highest level of school you have completed or the highest degree you have received? 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, AUTOMOTIVE CONSULTANT, CHANDRAKANT) 06/14/2020 Sex Assigned at Date Recorded Female 08/03/2020 10:16 PM EDT Job Start Date Occupation Industry Not on file Not on file Not on file COVID-19 Exposure Response Date Recorded In the last month, have you been in contact with someone who was confirmed or suspected to have Coronavirus / COVID-19? No / Unsure 05/09/2021 5:42 PM EST documented as of this encounter Plan of Treatment Not on file documented as of this encounter Results * CALCIUM, 24 HR URINE (07/08/2021 3:57 PM EDT) TOTAL VOLUME, 24HR URINE 1700 mL 07/08/2021 6:35 PM EDT [facility] CALCIUM, 24HR URINE 357 50 - 400 mg/24hr 07/08/2021 6:56 PM EDT [facility] 07/08/2021 3:57 PM EDT 07/08/2021 3:58 PM EDT Narrative [facility] - 07/08/2021 6:56 PM EDT Release to patient->Immediate tv 1700 Jayesh Pineda MD LAB [facility] documented in this encounter Visit Diagnoses Diagnosis Hyperparathyroidism (HCC)- Primary Hyperparathyroidism, unspecified documented in this encounter Care Teams Programmer Relationship Specialty Start Date End Date Shweta Tellez MD PCP - General Internal Medicine 01/12/21 10/10/21 Ora Ronquillo MD 4 [place], [place] [phone] PCP - General Internal Medicine 10/11/21 Jl Mendez MD [address] [place] [address] [place] [address] Specialist Cardiovascular Disease 10/13/21 Jannette Boudreaux MD 175 [facility] [address] [place] [address] Surgeon Neurosurgery 04/07/22 Tenisha Mendieta PA-C 175 [facility] [address] [place] [address] Specialist Neurosurgery 04/07/22 Julio Monk PA-C 175 [facility] [address] [place] [address] Specialist Neurosurgery 04/07/22 Luis Armando Eller MD 175 [facility] 250 [place] [address] Specialist ORTHOPEDIC SURGERY 10/01/23 Jayesh Pineda MD 305 [place] [address] Specialist Endocrinology 10/01/23 Kelsi Tejada MD 305 [place] [address] Specialist Allergy & Immunology 10/01/23 Pretty Le MD 175 [facility] 200 [place] [address] Specialist Pulmonology 10/01/23 Vesta Michael PA-C 300 [facility] 210 [place] [address] Specialist Vascular Surgery 10/01/23 [facility] 46 [place] [address] Specialist Optometry 10/01/23 documented as of this encounter
--- OUTSIDE RECORDS SUMMARY | 2024-04-22 10:09 | XMS_ITS | Encounter Summary ---
Author Organization [facility] Address [address] [place] [address] Care Team Providers Care Tail Board Man Name Role Phone Ora Sweeney MD Primary Care Prov ider Encounter Details Date Type Department Care Team (Late st Contact Info) Description 12/12/2023 4:42 PM EDT Hospital Encounter TH HISTORIC ENCOUNTERS EASTERN CONVERSION ONLY Luis Armando Eller MD [address] Dinesh [address] [place] [address] Social History Tobacco Use Types Packs/Day Years [...] your loved ones. For example, child care nurse or elderly care for an older [...] on file Sexual Orientation Not on file documented as of this encounter Plan of Treatment Upcoming Encounters Date Type Department Care Team (Late st Contact Info) Description 05/28/2024 9:45 AM EDT Office Visit Adult Medicine [address] [address] Ora Sweeney MD [address] [place] [address] 06/04/2024 10:30 AM EDT Consult Bariatric Surgery - [place] 175 [facility] 120 [place] [phone] Lita Verde PA 271 [facility] 120 [place] [address] 06/04/2024 11:45 AM EDT Office Visit Orthopedic Surgery - [place] [address] [address] Luis Armando Eller MD [address] [address] 06/05/2024 9:45 AM EDT Office Visit Orthopedic Surgery - [place] [address] [address] Duke Dunn, DPM [address] [address] 06/06/2024 2:30 PM EDT Office Visit Obstetrics and Gynecology - [place] [address] [place] [address] Stacie Martinez, [facility] 444 [place] [address] 06/30/2024 10:30 AM EDT Office Visit Orthopedic Surgery [facility] [address] [phone] Luis Armando Eller MD [address] [address] 07/02/2024 9:30 AM EDT Office Visit Orthopedic Surgery - [place] [address] [phone] Lorie Moore NP [address] [address] 07/09/2024 9:30 AM EDT Office Visit Endocrinology - [address] [phone] Jayesh Pineda MD 5 [place] [address] 09/22/2024 8:45 AM EDT Office Visit Pulmonolgy - [place] 175 [facility] [address] [place] [address] Pretty Le MD [address] [address] documented as of this encounter Visit Diagnoses Not on filedocumented in this encounter Care Teams Tail Board Man Relationship Specialty Start Date End Date Ora Sweeney MD 4 [place] [address] PCP - General 10/11/21 01/08/24 documented as of this encounter
--- OUTSIDE RECORDS SUMMARY | 2024-04-22 10:09 | XMS_ITS | Encounter Summary ---
Author Organization [facility] Address [address] [place] [address] Care Team Providers Care Automatic Line Set Up Mechanic Name Role Phone Teressa Solis DO Primary Care Pro vider Unavailable Mina Pretty DO Primary Care Provider Shweta Cronin MD Primary Care Provider Ora Diaz MD Primary Care Prov ider Jl Mendez MD Unavailable [phone] Jannette Boudreaux MD Unavailable [phone] Tenisha Mendieta PA-C Unavailable Julio Monk PA-C Unavailable Luis Armando Eller MD Unavailable [phone] Jayesh Pineda MD Unavailable Kelsi Tejada MD Unavailable Unavailable Pretty Le MD Unavailable Vesta Michael PA-C Unavailable [facility] Unavailable Encounter Details Date Type Department Care Team Description 04/29/2016 [facility] [address] [address] Teressa Solis DO Social History Tobacco Use Types Packs/Day Years Used Date Smoking Tobacco: Never Smokeless Tobacco: Never Alcohol Use Standard Drinks/Week Comments No 0 (1 standard drink = 0.6 oz pur e alcohol) Sex Assigned at Date Recorded Female 08/03/2020 10:16 PM EDT Job Start Date Occupation Industry Not on file Not on file Not on file documented as of this encounter Miscellaneous Notes * Telephone Encounter - Lubna Thornton M.A. - 04/29/2016 9:05 AM EST Last lab 08/11/15=21 Last ov with Ese 04/10/16 * Telephone Encounter - Lubna Thornton M.A. - 04/29/2016 9:04 AM ESTFrom: Ana Luisa House To: Teressa Grace DO Sent: 04/29/2016 2:36 AM EST Subject: Medication Renewal Request Original authorizing provider: DO Ana Luisa West would like a refill of the following medications: Cholecalciferol (VITAMIN D) 1000 UNITS Cap [Teressa Gallegos DO] Preferred pharmacy: [facility] [address] [place] [address] - [address] [place] [address] [address] [facility] [address] Comment: Pharmacy states I don't have more refills. This is for my Vitamin D deficiency. documented in this encounter Plan of Treatment Not on file documented as of this encounter Visit Diagnoses Not on filedocumented in this encounter Care Teams Automatic Line Set Up Mechanic Relationship Specialty Start Date End Date Teressa Solis DO PCP - General Internal Medicine 12/18/13 09/15/20 Mina Pretty DO PCP - General Internal Medicine 09/16/20 1 Shweta Tellez MD PCP - General Internal Medicine 01/12/21 10/10/21 Ora Ronquillo MD [address] [place] [address] PCP - General Internal Medicine 10/11/21 Jl Mendez MD [address] [place] [address] Dr Montiel [address] [place] [address] Specialist Cardiovascular Disease 10/13/21 Jannette Boudreaux MD [address] [address] Surgeon Neurosurgery 04/07/22 Tenisha Mendieta PA-C 175 [facility] 300 [place] [address] Specialist Neurosurgery 04/07/22 Julio Monk PA-C 175 [facility] 300 [place] [address] Specialist Neurosurgery 04/07/22 Luis Armando Eller MD [address] [address] Specialist ORTHOPEDIC SURGERY 10/01/23 Jayesh Pineda MD 305 [place] [address] Specialist Endocrinology 10/01/23 Kelsi Tejada MD 305 [place] [address] Specialist Allergy & Immunology 10/01/23 Pretty Le MD 175 [facility] 200 [place] [address] Specialist Pulmonology 10/01/23 Vesta Michael PA-C 300 [facility] 210 [place] [address] Specialist Vascular Surgery 10/01/23 [facility] 46 [place], [place] [address] Specialist Optometry 10/01/23 documented as of this encounter
--- OUTSIDE RECORDS SUMMARY | 2024-04-22 10:09 | XMS_ITS | Encounter Summary ---
Author Organization [facility] Address [address] [place] [address] Care Team Providers Care Mannequin Refinisher Name Role Phone Teressa Solis DO Primary Care Pro vider Unavailable Mina Pretty DO Primary Care Provider Shweta Cronin MD Primary Care Provider Ora Diaz MD Primary Care Prov ider Jl Mendez MD Unavailable Jannette Boudreaux MD Unavailable [phone] Tenisha Mendieta PA-C Unavailable Julio Monk PA-C Unavailable Luis Armando Eller MD Unavailable [phone] Jayesh Pineda MD Unavailable Kelsi Tejada MD Unavailable Unavailable Pretty Le MD Unavailable Vesta Michael PA-C Unavailable [facility] Unavailable [phone] Encounter Details Date Type Department Care Team Description 07/31/2016 SCAN Medical Records 4 [place] [address] Abstract, Provider Social History Tobacco Use Types Packs/Day Years [...] on file documented as of this encounter Procedures Procedure Name Priority Date/Time Associated Diagnosis Comments OUTSIDE VASCULAR STUDY Routine 07/21/2016 documented in this encounter Results * OUTSIDE VASCULAR STUDY (07/21/2016) Provider Abstract CARDIOLOGY documented in this encounter Visit Diagnoses Not on filedocumented in this encounter Care Teams Mannequin Refinisher Relationship Specialty Start Date End Date Teressa Solis DO PCP - General Internal Medicine 12/18/13 09/15/20 Mina Pretty DO PCP - General Internal Medicine 09/16/20 Shweta Boucher MD PCP - General Internal Medicine 01/12/21 10/10/21 Ora Ronquillo MD [address] [place] [address] PCP - General Internal Medicine 10/11/21 Jl Mendez MD [address] [place] [address] Dr Montiel [address] [place] [address] Specialist Cardiovascular Disease 10/13/21 Jannette Boudreaux MD [address] [address] Surgeon Neurosurgery 04/07/22 Tenisha Mendieta PA-C [address] [address] Specialist Neurosurgery 04/07/22 Julio Monk PA-C [address] [address] Specialist Neurosurgery 04/07/22 Luis Armando Eller MD [address] [address] Specialist ORTHOPEDIC SURGERY 10/01/23 Jayesh Pineda MD 305 [place] [address] Specialist Endocrinology 10/01/23 Kelsi Tejada MD 305 [place] [address] Specialist Allergy & Immunology 10/01/23 Pretty Le MD 175 [facility] [address] [place] [address] Specialist Pulmonology 10/01/23 Vesta Michael PA-C 300 [facility] 210 [place] [address] Specialist Vascular Surgery 10/01/23 [facility] [address] [place] [address] Specialist Optometry 10/01/23 documented as of this encounter
--- OUTSIDE RECORDS SUMMARY | 2024-04-22 10:09 | XMS_ITS | Encounter Summary ---
Author Organization [facility] Address [address] [place] [address] Care Team Providers Care Hole Digger Name Role Phone Teressa Solis DO Primary Care Pro vider Unavailable Mina Pretty DO Primary Care Provider Shweta Cronin MD Primary Care Provider Ora Diaz MD Primary Care Prov ider Jl Mendez MD Unavailable [phone] Jannette Boudreaux MD Unavailable [phone] Tenisha Mendieta PA-C Unavailable [phone] Julio Monk PA-C Unavailable [phone] Luis Armando Eller MD Unavailable [phone] Jayesh Pineda MD Unavailable Kelsi Tejada MD Unavailable Unavailable Pretty Le MD Unavailable Vesta Michael PA-C Unavailable [phone] [facility] Unavailable Reason for Visit * Reason Onset Date Comments Pre-op Needed 01/24/2017 Encounter Details Date Type Department Care Team Description 01/24/2017 Telephone Adult [address] [address] Teressa Solis DO Pre-op Needed Social History Tobacco Use Types Packs/Day Years [...] encounter Miscellaneous Notes * Telephone Encounter - Shaylee Willson - 01/24/2017 11:23 AM EST Date of surgery:TBD What surgery is patient having (gall bladder, cataract, appendix, etc...)?: Removal of Madibular marcelo, 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 Jovanny Strange Office phone number of surgeon: [phone] Fax # for surgeons office: [phone] Where is surgery being performed?[facility] Diagnosis/problem for surgery: Oral cavity, facial bones PCP: Teressa Gallegos Did you verify that the insurance below is correct? YES Patients insurance: Payor: [facility] MEDICAID / Plan: [facility] MEDICAID O [id number] [place] / Product Type: [id number]-Ypboyav documented in this encounter Plan of Treatment Not on file documented as of this encounter Visit Diagnoses Not on filedocumented in this encounter Care Teams Hole Digger Relationship Specialty Start Date End Date Teressa Solis DO PCP - General Internal Medicine 12/18/13 09/15/20 Mina Pretty DO PCP - General Internal Medicine 09/16/20 Shweta Boucher MD PCP - General Internal Medicine 01/12/21 10/10/21 Ora Ronquillo MD [address] [place] [address] PCP - General Internal Medicine 10/11/21 Jl Mendez MD [address] [place] [address] [place] [address] Specialist Cardiovascular Disease 10/13/21 Jannette Boudreaux MD 175 [facility] 300 [place] [address] Surgeon Neurosurgery 04/07/22 Tenisha Mendieta PA-C 175 [facility] 300 [place] [address] Specialist Neurosurgery 04/07/22 Julio Monk PA-C 175 [facility] 300 [place] [address] Specialist Neurosurgery 04/07/22 Luis Armando Eller MD 175 [facility] 250 [place] [address] Specialist ORTHOPEDIC SURGERY 10/01/23 Jayesh Pineda MD 305 [place] [address] Specialist Endocrinology 10/01/23 Kelsi Tejada MD 305 [place] [address] Specialist Allergy & Immunology 10/01/23 Pretty Le MD 175 [facility] 200 [place] [address] Specialist Pulmonology 10/01/23 Vesta Michael PA-C 300 [facility] 210 [place] [address] Specialist Vascular Surgery 10/01/23 [facility] 46 [place] [address] Specialist Optometry 10/01/23 documented as of this encounter
--- OUTSIDE RECORDS SUMMARY | 2024-04-22 10:09 | XMS_ITS | Encounter Summary ---
Author Organization [facility] Address [address] [place] [address] Care Team Providers Care Odd Job Laborer Name Role Phone Geno Cueva MD Primary Care Provider Unavailable Teressa Solis DO Primary Care Pro vider Unavailable Mina Pretty DO Primary Care Provider Ailyn Shweta Pretty MD Primary Care Provider Ora Diaz MD Primary Care Prov ider Jl Mendez MD Unavailable Jannette Boudreaux MD Unavailable [phone] Tenisha Mendieta PA-C Unavailable [phone] Julio Monk PA-C Unavailable [phone] Luis Armando Eller MD Unavailable [phone] Jayesh Pineda MD Unavailable Kelsi Tejada MD Unavailable Unavailable Pretty Le MD Unavailable Vesta Michael-Pina Unavailable [phone] [facility] Unavailable [phone] Encounter Details Date Type Department Care Team Description 03/24/2013 Dishcloth Folder Report Medical Records [address] [place] [address] Narinder Franco MD Social History Tobacco Use Types Packs/Day [...] on filedocumented in this encounter Care Teams Odd Job Laborer Relationship Specialty Start Date End Date Geno Cueva MD PCP - General Internal Medicine 06/28/1212/17/13 Teressa Solis DO PCP - General Internal Medicine 12/18/13 09/15/20 Mina Pretty DO PCP - General Internal Medicine 09/16/20 1 Shweta Tellez MD PCP - General Internal Medicine 01/12/21 10/10/21 Hiwot Couch, Ora Kelly MD [address] [place] [address] PCP - General Internal Medicine 10/11/21 Jl Mendez MD [address] [place] [address] Dr Montiel [address] [place] [address] Specialist Cardiovascular Disease 10/13/21 Jannette Boudreaux MD [address] [address] Surgeon Neurosurgery 04/07/22 Tenisha Mendieta PA-C [address] [address] Specialist Neurosurgery 04/07/22 Julio Monk PA-C [address] [address] Specialist Neurosurgery 04/07/22 Luis Armando Eller MD [address] [address] Specialist ORTHOPEDIC SURGERY 10/01/23 Jayesh Pineda MD [address] [place] [address] Specialist Endocrinology 10/01/23 Kelsi Tejada MD 305 [place] [address] Specialist Allergy & Immunology 10/01/23 Pretty Le MD 175 [facility] [address] [place] [address] Specialist Pulmonology 10/01/23 Vesta Michael PA-C 300 [facility] [address] [place] [address] Specialist Vascular Surgery 10/01/23 [facility] 46 [place] [address] Specialist Optometry 10/01/23 documented as of this encounter
--- OUTSIDE RECORDS SUMMARY | 2024-04-22 10:09 | XMS_ITS | Encounter Summary ---
Author Organization [facility] Address [address] [place] [address] Care Team Providers Care Bursar Name Role Phone Teressa Solis DO Primary Care Pro vider Unavailable Mina Pretty DO Primary Care Provider Shweta Cronin MD Primary Care Provider Ora Diaz MD Primary Care Prov ider Jl Mendez MD Unavailable [phone] Jannette Boudreaux MD Unavailable [phone] Tenisha Mendieta PA-C Unavailable [phone] Julio Monk PA-C Unavailable Luis Armando Eller MD Unavailable [phone] Jayesh Pineda MD Unavailable Kelsi Tejada MD Unavailable Unavailable Pretty Le MD Unavailable Vesta Michael PA-C Unavailable [phone] [facility] Unavailable [phone] Encounter Details Date Type Department Care Team Description 12/30/2016 Hospital Medical Records [address] [place] [address] Social History Tobacco Use Types Packs/Day Years Used Date Smoking Tobacco: Never Smokeless Tobacco: Never Alcohol Use Standard Drinks/Week Comments No 0 (1 standard drink = 0.6 oz pur e alcohol) Education Answer Date Recorded What is the highest level of school you have completed or the highest degree you have received? 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, MEDICAL PROGRAM SPECIALIST, CHANDRAKANT) 06/14/2020 Sex Assigned at Date Recorded Female 08/03/2020 10:16 PM EDT Job Start Date Occupation Industry Not on file Not on file Not on file documented as of this encounter Plan of Treatment Not on file documented as of this encounter Procedures Procedure Name Priority Date/Time Associated Diagnosis Comments OUTSIDE VASCULAR STUDY Routine 12/30/2016 documented in this encounter Results * OUTSIDE VASCULAR STUDY (12/30/2016) Provider Abstract CARDIOLOGY documented in this encounter Visit Diagnoses Not on filedocumented in this encounter Care Teams Bursar Relationship Specialty Start Date End Date Teressa Solis DO PCP - General Internal Medicine 12/18/13 09/15/20 Mina Pretty DO PCP - General Internal Medicine 09/16/20 1 Shweta Tellez MD PCP - General Internal Medicine 01/12/21 10/10/21 Hiwot Couch, Ora Kelly MD [address] [place] [address] PCP - General Internal Medicine 10/11/21 Jl Mendez MD [address] [place] [address] Dr [address] [place] [address] Specialist Cardiovascular Disease 10/13/21 Jannette Boudreaux MD [address] [address] Surgeon Neurosurgery 04/07/22 Tenisha Mendieta PA-C [address] [address] Specialist Neurosurgery 04/07/22 Julio Monk PA-C 175 [facility] [address] [place] [address] Specialist Neurosurgery 04/07/22 Luis Armando Eller MD 175 [facility] 250 [place] [address] Specialist ORTHOPEDIC SURGERY 10/01/23 Jayesh Pineda MD 305 [place] [address] Specialist Endocrinology 10/01/23 Kelsi Tejada MD 305 [place] [address] Specialist Allergy & Immunology 10/01/23 Pretty Le MD 175 [facility] 200 [place] [address] Specialist Pulmonology 10/01/23 Vesta Michael PA-C 300 [facility] 210 [place] [address] Specialist Vascular Surgery 10/01/23 [facility] [address] [place] [address] Specialist Optometry 10/01/23 documented as of this encounter
--- OUTSIDE RECORDS SUMMARY | 2024-04-22 10:09 | XMS_ITS | Encounter Summary ---
Author Organization [facility] Address [address] [place] [address] Care Team Providers Care Correctional Officer Name Role Phone Teressa Solis DO Primary Care Pro vider Unavailable Mina Pretty DO Primary Care Provider Shweta Cronin MD Primary Care Provider Ora Diaz MD Primary Care Prov ider Jl Mendez MD Unavailable Jannette Boudreaux MD Unavailable [phone] Tenisha Mendieta PA-C Unavailable Julio Monk PA-C Unavailable [phone] Luis Armando Eller MD Unavailable [phone] Jayesh Pineda MD Unavailable Kelsi Tejada MD Unavailable Unavailable Pretty Le MD Unavailable Vesta Michael PA-C Unavailable [facility] Unavailable Encounter Details Date Type Department Care Team Description 01/22/2017 Bulk Station Operator Report Medical Records 4 [place] [address] Abstract, Provider Social History Tobacco Use Types [...] on filedocumented in this encounter Care Teams Correctional Officer Relationship Specialty Start Date End Date Teressa Solis DO PCP - General Internal Medicine 12/18/13 09/15/20 Mina Pretty DO PCP - General Internal Medicine 09/16/20 Shweta Boucher MD PCP - General Internal Medicine 01/12/21 10/10/21 Ora Ronqulilo MD [address] [place] [address] PCP - General Internal Medicine 10/11/21 Jl Mendez MD [address] [place] [address] Specialist Cardiovascular Disease 10/13/21 Jannette Boudreaux MD [address] [address] Surgeon Neurosurgery 04/07/22 Tenisha Mendieta PA-C [address] [address] Specialist Neurosurgery 04/07/22 Julio Monk PA-C [address] [address] Specialist Neurosurgery 04/07/22 Luis Armando Eller MD [address] [address] Specialist ORTHOPEDIC SURGERY 10/01/23 Jayesh Pineda MD 305 [place] [address] Specialist Endocrinology 10/01/23 Kelsi Tejada MD 305 [place] [address] Specialist Allergy & Immunology 10/01/23 Pretty Le MD 175 [facility] [address] [place] [address] Specialist Pulmonology 10/01/23 Vesta Michael PA-C 300 [facility] [address] [place] [address] Specialist Vascular Surgery 10/01/23 [facility] [address] [place] [address] Specialist Optometry 10/01/23 documented as of this encounter
--- OUTSIDE RECORDS SUMMARY | 2024-04-22 10:09 | XMS_ITS | Encounter Summary ---
Author Organization [facility] Address [address] [place] [address] Care Team Providers Care Aerosol Supervisor Name Role Phone Geno Cueva MD Primary Care Provider Unavailable Teressa Solis DO Primary Care Pro vider Unavailable Mina Pretty DO Primary Care Provider Ailyn Shweta Pretty MD Primary Care Provider Ora Diaz MD Primary Care Prov ider Jl Mendez MD Unavailable Jannette Boudreaux MD Unavailable [phone] Tenisha Mendieta PA-C Unavailable [phone] Julio Monk PA-C Unavailable [phone] Luis Armando Eller MD Unavailable [phone] Jayesh Pineda MD Unavailable Kelsi Tejada MD Unavailable Unavailable Pretty Le MD Unavailable Vesta Michael-Pina Unavailable [facility] Unavailable Encounter Details Date Type Department Care Team Description 08/14/2012 Pt. Non Urgent Medic al Question Adult Medicine [address] [address] Geno Cueva MD Social History Tobacco Use Types Packs/Day [...] as of this encounter Progress Notes * Charleen Red M.A. - 08/15/2012 7:57 AM EDTFrom: [facility] To: Geno Cueva MD Sent: SunAug 14, 2012 8:35 PM Subject: colonoscopy I just recieve a message that the center cancel my appointment with the gastro for the colonoscopy. I don't know why and if I'm going to recieve a new appointment but I think you should know. Thanks, documented in this encounter Plan of Treatment Not on file documented as of this encounter Visit Diagnoses Not on filedocumented in this encounter Care Teams Aerosol Supervisor Relationship Specialty Start Date End Date Geno Cueva MD PCP - General Internal Medicine 06/28/1212/17/13 Teressa Solis, DO PCP - General Internal Medicine 12/18/13 09/15/20 Mina Pretty, PCP - General Internal Medicine 09/16/20 1 Shweta Tellez MD PCP - General Internal Medicine 01/12/21 10/10/21 Ora Ronquillo MD [address] [place] [address] PCP - General Internal Medicine 10/11/21 Jl Mendez MD [address] [place] [address] [place] [address] Specialist Cardiovascular Disease 10/13/21 Jannette Boudreaux MD [address] [address] Surgeon Neurosurgery 04/07/22 Tenisha Mendieta PA-C [address] [address] Specialist Neurosurgery 04/07/22 Julio Monk PA-C 175 [facility] 300 [place] [address] Specialist Neurosurgery 04/07/22 Luis Armando Eller MD 175 [facility] 250 [place] [address] Specialist ORTHOPEDIC SURGERY 10/01/23 Jayesh Pineda MD 305 [place] [address] Specialist Endocrinology 10/01/23 Kelsi Tejada MD 305 [place] [address] Specialist Allergy & Immunology 10/01/23 Pretyt Le MD 175 [facility] 200 [place] [address] Specialist Pulmonology 10/01/23 Vesta Michael PA-C 300 [facility] 210 [place] [address] Specialist Vascular Surgery 10/01/23 [facility] 46 [place] [address] Specialist Optometry 10/01/23 documented as of this encounter
--- OUTSIDE RECORDS SUMMARY | 2024-04-22 10:09 | XMS_ITS | Encounter Summary ---
Author Organization [facility] Address [address] [place] [address] Care Team Providers Care Ferruler Name Role Phone Teressa Solis DO Primary Care Pro vider Unavailable Mina Pretty DO Primary Care Provider Shweta Cronin MD Primary Care Provider Ora Diaz MD Primary Care Prov ider Jl Mendez MD Unavailable Jannette Boudreaux MD Unavailable [phone] Tenisha Mendieta PA-C Unavailable Julio Monk PA-C Unavailable [phone] Luis Armando Eller MD Unavailable [phone] Jayesh Pineda MD Unavailable Kelsi Tejada MD Unavailable Unavailable Pretty Le MD Unavailable Vesta Michael PA-C Unavailable [facility] Unavailable Encounter Details Date Type Department Care Team Description 08/27/2015 Orders Only Adult Medicine [address] [address] Teressa Solis DO Social History [...] on filedocumented in this encounter Care Teams Ferruler Relationship Specialty Start Date End Date Teressa Solis DO PCP - General Internal Medicine 12/18/13 09/15/20 Mina Pretty DO PCP - General Internal Medicine 09/16/20 1 Shweta Tellez MD PCP - General Internal Medicine 01/12/21 10/10/21 Hiwot Couch, Ora Kelly MD [address] [place] [address] PCP - General Internal Medicine 10/11/21 Jl Mendez MD [address] [place] [address] Dr Mont[address] [place] [address] Specialist Cardiovascular Disease 10/13/21 Jannette Boudreaux MD [address] [address] Surgeon Neurosurgery 04/07/22 Tenisha Mendieta PA-C [address] [address] Specialist Neurosurgery 04/07/22 Julio Monk PA-C 175 [facility] [address] [place] [address] Specialist Neurosurgery 04/07/22 Luis Armando Eller MD [address] [address] Specialist ORTHOPEDIC SURGERY 10/01/23 Jayesh Pineda MD 305 [place] [address] Specialist Endocrinology 10/01/23 Kelsi Tejada MD 305 [place] [address] Specialist Allergy & Immunology 10/01/23 Pretty Le MD 175 [facility] [address] [place] [address] Specialist Pulmonology 10/01/23 Vesta Michael PA-C 300 [facility] [address] [place] [address] Specialist Vascular Surgery 10/01/23 [facility] 46 [place] [address] Specialist Optometry 10/01/23 documented as of this encounter
--- OUTSIDE RECORDS SUMMARY | 2024-04-22 10:09 | XMS_ITS | Encounter Summary ---
Author Organization [facility] Address [address] [place] [address] Care Team Providers Care Offset Printing Pressmen Name Role Phone Teressa Solis DO Primary Care Pro vider Unavailable Mina Pretty DO Primary Care Provider Shweta Cronin MD Primary Care Provider Ora Diaz MD Primary Care Prov ider Jl Mendez MD Unavailable Jannette Boudreaux MD Unavailable [phone] Tenisha Mendieta PA-C Unavailable Julio Monk PA-C Unavailable Luis Armando Eller MD Unavailable [phone] Jayesh Pineda MD Unavailable Kelsi Tejada MD Unavailable Unavailable Pretty Le MD Unavailable Vesta Michael PA-C Unavailable [phone] [facility] Unavailable Encounter Details Date Type Department Care Team Description 01/05/2017 Vocational Nurse Report Medical Records [address] [place] [address] Bobby Sutton PA-C Social History Tobacco Use Types Packs/Day Years [...] on filedocumented in this encounter Care Teams Offset Printing Pressmen Relationship Specialty Start Date End Date Teressa Solis DO PCP - General Internal Medicine 12/18/13 09/15/20 Mina Pretty DO PCP - General Internal Medicine 09/16/20 Shweta Boucher MD PCP - General Internal Medicine 01/12/21 10/10/21 Ora Ronquillo MD [address] [place] [address] PCP - General Internal Medicine 10/11/21 Jl Mendez MD [address] [place] [address] Specialist Cardiovascular Disease 10/13/21 Jannette Boudreaux MD [address] [address] Surgeon Neurosurgery 04/07/22 Tenisha Mendieta PA-C [address] [address] Specialist Neurosurgery 04/07/22 Julio Monk PA-C [address] [address] Specialist Neurosurgery 04/07/22 Luis Armando Eller MD [address] [address] Specialist ORTHOPEDIC SURGERY 10/01/23 Jayesh Pineda MD 305 [place] [address] Specialist Endocrinology 10/01/23 Kelsi Tejada MD 305 [place] [address] Specialist Allergy & Immunology 10/01/23 Pretty Le MD 175 [facility] [address] [place] [address] Specialist Pulmonology 10/01/23 Vesta Michael PA-C 300 [facility] 210 [place] [address] Specialist Vascular Surgery 10/01/23 [facility] 46 [place] [address] Specialist Optometry 10/01/23 documented as of this encounter
--- OUTSIDE RECORDS SUMMARY | 2024-04-22 10:09 | XMS_ITS | Encounter Summary ---
Author Organization [facility] Address [address] [place] [address] Care Team Providers Care Piano Case And Bench Assembler Name Role Phone Geno Cueva MD Primary Care Provider Unavailable Teressa Solis DO Primary Care Pro vider Unavailable Mina Pretty DO Primary Care Provider Ailyn Shweta Pretty MD Primary Care Provider Ora Diaz MD Primary Care Prov ider Jl Mendez MD Unavailable Jannette Boudreaux MD Unavailable [phone] Tenisha Mendieta PA-C Unavailable [phone] Julio Monk PA-C Unavailable Luis Armando Eller MD Unavailable [phone] Jayesh Pineda MD Unavailable Kelsi Tejada MD Unavailable Unavailable Pretty Le MD Unavailable Vesta Michael-Pina Unavailable [phone] [facility] Unavailable [phone] Encounter Details Date Type Department Care Team Description 03/11/2013 Firer Portable Boiler Report Medical Records [address] [place] [address] Zoltan Chu Social History Tobacco Use Types Packs/Day Years [...] on filedocumented in this encounter Care Teams Piano Case And Bench Assembler Relationship Specialty Start Date End Date Geno Cueva MD PCP - General Internal Medicine 06/28/1212/17/13 Teressa Solis DO PCP - General Internal Medicine 12/18/13 09/15/20 Mina Pretty DO PCP - General Internal Medicine 09/16/20 Shweta Boucher MD PCP - General Internal Medicine 01/12/21 10/10/21 Ora Ronquillo MD [address] [place] [address] PCP - General Internal Medicine 10/11/21 Jl Mendez MD [address] [place] [address] Dr Mont[address] [place] [address] Specialist Cardiovascular Disease 10/13/21 Jannette Boudreaux MD [address] [address] Surgeon Neurosurgery 04/07/22 Tenisha Mendieta PA-C [address] [address] Specialist Neurosurgery 04/07/22 Julio Monk PA-C 175 [facility] [address] [place] [address] Specialist Neurosurgery 04/07/22 Luis Armando Eller MD [address] [address] Specialist ORTHOPEDIC SURGERY 10/01/23 Jayesh Pineda MD [address] [place] [address] Specialist Endocrinology 10/01/23 Kelsi Tejada MD 305 [place] [address] Specialist Allergy & Immunology 10/01/23 Pretty Le MD 175 [facility] [address] [place] [address] Specialist Pulmonology 10/01/23 Vesta Michael PA-C 300 [facility] 210 [place] [address] Specialist Vascular Surgery 10/01/23 [facility] 46 [place], [place] [address] Specialist Optometry 10/01/23 documented as of this encounter
--- OUTSIDE RECORDS SUMMARY | 2024-04-22 10:09 | XMS_ITS | Encounter Summary ---
Author Organization [facility] Address [address] [place] [address] Care Team Providers Care Boot Trimmer Name Role Phone Teressa Solis DO Primary Care Pro vider Unavailable Mina Pretty DO Primary Care Provider Shweta Cronin MD Primary Care Provider Ora Diaz MD Primary Care Prov ider Jl Mendez MD Unavailable Jannette Boudreaux MD Unavailable [phone] Tenisha Mendieta PA-C Unavailable [phone] Julio Monk PA-C Unavailable [phone] Luis Armando Eller MD Unavailable [phone] Jayesh Pineda MD Unavailable Kelsi Tejada MD Unavailable Unavailable Pretty Le MD Unavailable Vesta Michael PA-C Unavailable [facility] Unavailable Encounter Details Date Type Department Care Team Description 12/28/2016 Hoist Worker Report Medical Records 4 [place] [address] Social History Tobacco Use Types Packs/Day Years [...] on filedocumented in this encounter Care Teams Boot Trimmer Relationship Specialty Start Date End Date Teressa Solis DO PCP - General Internal Medicine 12/18/13 09/15/20 Mina Pretty DO PCP - General Internal Medicine 09/16/20 Shweta Boucher MD PCP - General Internal Medicine 01/12/21 10/10/21 Ora Ronquillo MD [address] [place] [address] PCP - General Internal Medicine 10/11/21 Jl Mendez MD [address] [place] [address] Dr Montiel [address] [place] [address] Specialist Cardiovascular Disease 10/13/21 Jannette Boudreaux MD [address] [address] Surgeon Neurosurgery 04/07/22 Tenisha Mendieta PA-C [address] [address] Specialist Neurosurgery 04/07/22 Julio Monk PA-C [address] [address] Specialist Neurosurgery 04/07/22 Luis Armando Eller MD [address] [address] Specialist ORTHOPEDIC SURGERY 10/01/23 Jayesh Pineda MD 305 [place] [address] Specialist Endocrinology 10/01/23 Kelsi Tejada MD 305 [place] [address] Specialist Allergy & Immunology 10/01/23 Pretty Le MD 175 [facility] [address] [place] [address] Specialist Pulmonology 10/01/23 Vesta Michael PA-C 300 [facility] 210 [place] [address] Specialist Vascular Surgery 10/01/23 [facility] 46 [place] [address] Specialist Optometry 10/01/23 documented as of this encounter
--- OUTSIDE RECORDS SUMMARY | 2024-04-22 10:09 | XMS_ITS | Data Portability ---
Author Organization [facility], [address] Address [address] [place] [address] Assessment No assessment recorded. Plan of Treatment Reminders Order Date Submit Date Provider Last Modified By Organization Details Last Modified Time Details Appointments None recorded. Lab rapid flu (A+B) 2021 022 marva zhang13 [address] [address], [address] [place], [address], 14:02:10 rapid SARS CoV 2 Ag, QL IA, respiratory specimen 2021 022 [facility] [address], [address] [place], [address], 14:02:10 Referral None recorded. Procedures None recorded. Surgeries None recorded. Imaging None recorded. Medication Orders Tamiflu 75 mg capsule 2021 [facility][id number], [phone] [place], [address], 03:31:38 promethazin e-DM 6.25 mg-15 mg/5 mL oral syrup 2021 [facility] #[id number], [phone] [place], [address], 14:02:13 Patient TargetsNo targets recorded. Patient Instructions Encounter Date Encounter Id Patient Instructions Last Modified By Organization Details Last Modified Time 02/20/2022 [id number] You should follow-up with your PCP in [...] y speci men Unknown Analyte Not Available [address] [place] [address] [address] [place], [address], 02/20/2022 13:38:01 02/21/20 22 02/20/2022 rapid SARS CoV 2 Ag, QL IA, respi rator y speci men Unknown Analyte negati ve Not Available ruiin gf [address] [place], [address], 02/20/2022 13:38:01 02/21/20 22 02/20/2022 rapid flu (A+B) Unknown Analyte negati ve Not Available sprin gf [address] [place], [address], 02/20/2022 13:24:32 02/21/20 22 02/20/2022 rapid flu (A+B) Unknown Analyte Normal = Negati ve Not Available sprin gf [address] [place], [address], 02/20/2022 13:24:32 02/21/20 22 02/20/2022 rapid flu (A+B) Unknown Analyte negati ve Not Available [address] [place], [address], 02/20/2022 13:24:32 02/21/20 22 02/20/2022 rapid flu (A+B) Unknown Analyte Normal = Negati ve Not Available [address] [place], [address], 02/20/2022 13:24:32 Result Notes None recorded. Problems Name Problem SNOMED Code Status Onset Date Resolution Date Notes Provider Name and Address Organization Details Recorded Time Hypertensive disorder 36444229 Active 2021 Layne Trevino null, [place] - [facility] 13:21:27 Hyperlipidemia 25254638 Active 2021 Layne Trevino null, PA - [facility] 13:21:42 Thyroiditis 76369873 Active 2021 Laynetristen Trevino null, PA - [facility] 2 13:21:59 Environmental allergy 095577739 Active 2021 Layne Trevino null, PA - [facility] 13:22:12 Migraine 54327136 Active 2021 Layne Trevino null, PA - [facility] 13:22:21 Diabetes mellitus 49016558 Active 2021 Layne Trevnio null, PA - [facility] 2 13:22:34 Asthma 919612929 Active 2021 Layne Trevino null, PA - [...] Name and Address Organization Details Recorded Time 33934 Product containin g penicilli n and antibioti c (product) medicatio n swelling Not available high 02/20/2022 91579 05 SNOMED Layne Trevino null, PA - [facility] 2 13:13:07 86951 Duricef medicatio n swelling Not available Not available 02/20/202220005 6 RxNorm Layne Trevino null, PA - [facility] 2 13:13:25 94217 Medrol medicatio n swelling Not available Not available 02/20/202296643 2 RxNorm Layne Trevino null, PA - [facility] 2 13:13:43 19793 oxycodone medicatio n Not available Not available Not available 02/20/2022 7804 RxNorm Layne Trevino null, PA - [facility] 2 13:13:52 64357 chocolate flavor food,medi cation Not available Not available Not available 02/20/2022 89131 UNDarren Trevino null, PA - [facility] 2 13:14:02 82066 almond allergeni c extract food Not available Not available Not available 02/20/2022 07883 7 RxNorm Layne Trevino null, PA - [facility] 2 13:14:09 93605 Canis lupus familiari s extract environme nt Not available Not available Not available 02/20/2022 29738 4 RxNorm Layne Trevino null, PA - [facility] 2 13:14:18 10922 cat dander environme nt Not available Not available Not available 02/20/2022 51581 UNK Layne Trevino null, PA - [facility] 2 13:14:22 15956 rabbit dander environme nt Not available Not available Not available 02/20/2022 43764 UNDarren SalgadoLaynetristen Trevino null, PA - [facility] 2 13:14:29 78207 latex environme nt,medica tion Not available Not available Not available 02/20/2022 97073 91 RxNorm Laynetristen Trevino null, PA - [facility] 2 13:14:36 99974 house dust mite environme nt Not available Not available Not available 02/20/2022 43739 UNK Layne Trevino null, PA - [facility] 2 13:14:44 41603 POLLEN EXTRACTS environme nt,medica tion Not available Not available Not available 02/20/2022 47758 6 RxNorm Layne Trevino null, PA - [facility] 2 13:14:56 03947 grass pollen environme nt,medica tion Not available Not available Not available 02/20/2022 29618 UNK Layne Trevino null, PA - [facility] 2 13:15:03 42382 ethinyl estradiol / levonorge strel medicatio n Not available Not available Not available 02/20/2022 51530 8 RxNorm Layne Trevino null, PA - [...] Updated DateTime 2 162.56 cm 44.6 kg/m2 836386. 02 g 100 % 100 % 85 /min 20 /min 98.8 [degF] 159 mm[Hg] 88 mm[Hg] [facility] 13:12:06 Social History Question Answer Notes LastModified by Organizat ion Details LastModified Time Tobacco Smoking Status Never Smoker [facility] 02/20/2022 13:23:07 What Is Your Level Of Alcohol Consumption? Occasional Information not available 02/20/2022 Have You Had Direct Contact, Or Contact During Intimacy, With Monkeypox Rash, Scabs, Or Body Fluids From A Person With Monkeypox? No [email or web address] Information not available 02/20/2022 Do You Use Any Illicit Or Recreational Drugs? No Information not available 02/20/2022 Have You Recently Traveled Abroad? No [email or web address] Information not available 02/20/2022 Sex: Unknown Functional [...] SNOMED-CT Code Diagnosis ICD10 Code Diagnosis Note [id number] [address] [address] [place] [address] 04/01/2019 17:17:25 04/01/2019 18:28:03 [id number] Evel[place] [address] [address] [place] [address] 02/20/2022 12:02:53 02/20/2022 14:03:53 Generalized aches and pains 38858224 R52 Viral syndrome 171270906 B34.9 Health Concerns Section Related Observation LastModified by Organization Detai ls LastModified Time None Recorded Concern Status LastModified by Organization Details LastModified Time None Recorded Advance Directives Directive None Recorded Payers Encounter Date Sequence Insurance Name Policy Number Policy Saleh Covered Member ID Saleh Member ID Guarantor Name 04/01/2019 1 [facility] (MEDICAID REPLACEMENT - HMO) [place] Ana Luisa A House [id number] Ana Luisa A House 02/20/2022 1 [facility] (MEDICAID REPLACEMENT - HMO) [place] Ana Luisa A House [id number] Ana Luisa A House Notes Date Note [...] Evelina Xiao MD [address] [place], [address], [place] - [facility] 02/20/2022 20:29:48 OBGyn Episode No OBEpisode recorded.
--- OUTSIDE RECORDS SUMMARY | 2024-04-22 10:09 | XMS_ITS | Encounter Summary ---
Author Organization [facility] Address [address] [place] [address] Care Team Providers Care Lead Former Name Role Phone Teressa Solis DO Primary Care Pro vider Unavailable Mina Pretty DO Primary Care Provider Shweta Cronin MD Primary Care Provider Ora Diaz MD Primary Care Prov ider Jl Mendez MD Unavailable Jannette Boudreaux MD Unavailable [phone] Tneisha Mendieta PA-C Unavailable [phone] Julio Monk PA-C Unavailable [phone] Luis Armando Eller MD Unavailable [phone] Jayesh Pineda MD Unavailable Kelsi Tejada MD Unavailable Unavailable Pretty Le MD Unavailable Vesta Michael PA-C Unavailable [facility] Unavailable Reason for Visit * Reason Onset Date Comments Faxed Order 01/23/2017 Encounter Details Date Type Department Care Team Description 01/23/2017 Telephone Adult [address] [address] Teressa Solis DO Faxed Order Social History Tobacco Use Types Packs/Day Years [...] * Telephone Encounter - Shaylee Willson - 01/23/2017 9:07 AM EST Faxed orders received from [facility], please sign and fax back to [phone]. documented in this encounter Plan of Treatment Not on file documented as of this encounter Visit Diagnoses Not on filedocumented in this encounter Care Teams Lead Former Relationship Specialty Start Date End Date Teressa Solis, PCP - General Internal Medicine 12/18/13 09/15/20 Mina Pretty DO PCP - General Internal Medicine 09/16/20 Shweta Boucher MD PCP - General Internal Medicine 01/12/21 10/10/21 Ora Ronquillo MD [address] [place] [address] PCP - General Internal Medicine 10/11/21 lJ Mendez MD [address] [place] [address] Dr Mont[address] [place] [address] Specialist Cardiovascular Disease 10/13/21 Jannette Boudreaux MD [address] [address] Surgeon Neurosurgery 04/07/22 Tenisha Mendieta PA-C [address] [address] Specialist Neurosurgery 04/07/22 Julio Monk PA-C [address] [address] Specialist Neurosurgery 04/07/22 Luis Armando Eller MD 175 [facility] [address] [place] [address] Specialist ORTHOPEDIC SURGERY 10/01/23 Jayesh Pineda MD [address] [place] [address] Specialist Endocrinology 10/01/23 Kelsi Tejada MD [address] [place] [address] Specialist Allergy & Immunology 10/01/23 Pretty Le MD 175 [facility] [address] [place] [address] Specialist Pulmonology 10/01/23 Vesta Michael PA-C 300 [facility] [address] [place] [address] Specialist Vascular Surgery 10/01/23 [facility] [address] [place] [address] Specialist Optometry 10/01/23 documented as of this encounter
--- OUTSIDE RECORDS SUMMARY | 2024-04-22 10:09 | XMS_ITS | Encounter Summary ---
Author Organization [facility] Address [address] [place] [address] Care Team Providers Care Proposal Lead Writer Name Role Phone Ora Ronquillo MD Primary Care Prov ider Jl Mendez MD Unavailable Jannette Boudreaux MD Unavailable [phone] Tenisha Mendieta PA-C Unavailable Julio MonkC Unavailable Luis Armando Eller MD Unavailable [phone] Jayesh Pineda MD Unavailable Kelsi Tejada MD Unavailable Unavailable Pretty Le MD Unavailable Vesta Michael PA-Pina Unavailable [phone] [facility] Unavailable [phone] Encounter Details Date Type Department Care Team Description 02/15/2023 Bicycle Repairer Report Medical Records [address] [place] [address] Kelsi Tejada MD Social History Tobacco Use Types Packs/Day Years Used Date Smoking Tobacco: Never Smokeless Tobacco: Never Alcohol Use Standard Drinks/Week Comments No 0 (1 standard drink = 0.6 oz pur e alcohol) Education Answer Date Recorded What is the highest level of school you have completed or the highest degree you have received? 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, FINISHER [employer]OLD ROLLING, CHANDRAKANT) 06/14/2020 Sex Assigned at Date Recorded Female 08/03/2020 10:16 PM EDT Job Start Date Occupation Industry Not on file Not on file Not on file COVID-19 Exposure Response Date Recorded In the last 10 days, have yo u been in contact with someone who was confirmed or suspected to have Coronavirus/COVID-19? No / Unsure 01/26/2023 8:41 AM EST documented as of this encounter Plan of Treatment Not on file documented as of this encounter Visit Diagnoses Not on filedocumented in this encounter Care Teams Proposal Lead Writer Relationship Specialty Start Date End Date Ora Ronquillo MD [address] [place] [address] PCP - General Internal Medicine 10/11/21 Jl Mendez MD [address] [place] [address] Dr Montiel [address] [place] [address] Specialist Cardiovascular Disease 10/13/21 Jannette Boudreaux MD [address] [address] Surgeon Neurosurgery 04/07/22 Tenisha Mendieta PA-C [address] [address] Specialist Neurosurgery 04/07/22 Julio Monk PA-C 175 [facility] [address] [place] [address] Specialist Neurosurgery 04/07/22 Luis Armando Eller MD [address] [address] Specialist ORTHOPEDIC SURGERY 10/01/23 Jayesh Pineda MD [address] [place] [address] Specialist Endocrinology 10/01/23 Kelsi Tejada MD [address] [place] [address] Specialist Allergy & Immunology 10/01/23 Pretty Le MD 175 [facility] [address] [place] [address] Specialist Pulmonology 10/01/23 Vesta Michael PA-C 300 [facility] [address] [place] [address] Specialist Vascular Surgery 10/01/23 [facility] [address] [place] [address] Specialist Optometry 10/01/23 documented as of this encounter
--- OUTSIDE RECORDS SUMMARY | 2024-04-22 10:10 | XMS_ITS | Encounter Summary ---
Author Organization [facility] Address [address] [place] [address] Care Team Providers Care Bending Frame Operator Name Role Phone Teressa Solis DO Primary Care Pro vider Unavailable Mina Pretty DO Primary Care Provider Shweta Cronin MD Primary Care Provider Ora Diaz MD Primary Care Prov ider Jl Mendez MD Unavailable [phone] Jannette Boudreaux MD Unavailable [phone] Tenisha Mendieta PA-C Unavailable Julio Monk PA-C Unavailable Luis Armando Eller MD Unavailable [phone] Jayesh Pineda MD Unavailable Kelsi Tejada MD Unavailable Unavailable Pretty Le MD Unavailable Vesta Michael PA-C Unavailable [phone] [facility] Unavailable Encounter Details Date Type Department Care Team Description 06/09/2020 Hotel Yardperson Report Medical Records [address] [place] [address] Randy Domínguez MD Social History Tobacco Use Types Packs/Day [...] have Coronavirus / COVID-19? No / Unsure 06/10/2020 11:24 AM EDT documented as of this encounter Plan of Treatment Not on file documented as of this encounter Visit Diagnoses Not on filedocumented in this encounter Care Teams Bending Frame Operator Relationship Specialty Start Date End Date Teressa Solis DO PCP - General Internal Medicine 12/18/13 09/15/20 Mina Pretty DO PCP - General Internal Medicine 09/16/20 Shweta Boucher MD PCP - General Internal Medicine 01/12/21 10/10/21 Ora Ronquillo MD [address] [place] [address] PCP - General Internal Medicine 10/11/21 Jl Mendez MD [address] [place] [address] Dr Montiel [address] [place] [address] Specialist Cardiovascular Disease 10/13/21 Jannette Boudreaux MD [address] [address] Surgeon Neurosurgery 04/07/22 Tenisha Mendieta PA-C [address] [address] Specialist Neurosurgery 04/07/22 Julio Monk PA-C [address] [address] Specialist Neurosurgery 04/07/22 Luis Armando Eller MD [address] [address] Specialist ORTHOPEDIC SURGERY 10/01/23 Jayesh Pineda MD [address] [place] [address] Specialist Endocrinology 10/01/23 Kelsi Tejada MD [address] [place] [address] Specialist Allergy & Immunology 10/01/23 Pretty Le MD 175 [facility] [address] [place] [address] Specialist Pulmonology 10/01/23 Vesta Michael PA-C 300 [facility] 210 [place] [address] Specialist Vascular Surgery 10/01/23 [facility] [address] [place] [address] Specialist Optometry 10/01/23 documented as of this encounter
--- OUTSIDE RECORDS SUMMARY | 2024-04-22 10:10 | XMS_ITS | Encounter Summary ---
Author Organization [facility] Address [address] [place] [address] Care Team Providers Care Public Policy Professor Name Role Phone Ora Sweeney MD Primary Care Prov ider Reason for Visit * Consultation (Elective) - Authorized Specialty Diagnoses / Procedures Referred By Janie t Referred To Contact Occupational Therapy Diagnoses S/P left rotator cuff repair Luis Armando Eller MD 175 [facility] 160 [place] [address] Phone: tel: fax: [facility] [address] [address] Phone: tel: fax: Referral ID Status Reason Start Date Expiration Date Visits Requested Visits Authorized [id number] Authorized Specialty Services Required 01/08/2025 21 21 Encounter Details Date Type Department Care Team (Late st Contact Info) Description 03/27/2024 10:00 AM EST [facility] [address] [address] Chema Martins, OT Rotator cuff tear [...] for your loved ones. For example, child and youth program assistant or elderly care for an older adult? [...] from the original note were not included. [facility] - Outpatient OCCUPATIONAL THERAPY DISCHARGE EVALUATION Date: 03/27/2024 Visit Number: [id number] Patient Name: Ana Luisa House : 1960 Age: 63 y.o. Gender: female Diagnosis: ICD-10-CM ICD-9-CM 1. Rotator cuff tear arthropathy of left shoulder M75.102 716.81 M12.812 Date of Onset: 12/06/2023 Referring Provider: Luis Armando Eller MD Insurance: Payor: [employer]AGE / Plan: Smart Patients [facility] OPTIONS / Product Type: *No Product type* / Language: Speaks and understands Sami as preferred language with no fire prevention specialist required has a past medical history of Abdominal pain, RUQ (12/28/2014), Abnormal finding on imaging (12/28/2014), Angiomyolipoma of both kidneys, Anxiety state, Asthma, Asthma, moderate persistent (05/10/2020), Asthma-chronic obstructive pulmonary disease overlap syndrome (CMS/HCC) (01/30/2022), Class 3 severe obesity due to excess calories with serious comorbidity and body mass index (BMI) of 40.0 to 44.9 in adult (CMS/HCC) (07/15/2019), COVID-19, CTS (carpal tunnel syndrome), Depression, Depressive disorder, Diabetes mellitus (CMS/HCC), Diabetes mellitus type 2, controlled, without complications ([facility]/HCC) (02/16/2021), Family history of colon cancer, Fatty liver, Gastroesophageal reflux disease without esophagitis (08/30/2015), HLD (hyperlipidemia) (11/21/2021), Hypertension, Hypothyroid, Migraines, Mild concentric left ventricular hypertrophy (08/23/2021), Morbid obesity with BMI of 40.0-44.9, adult (CMS/HCC), Multiple thyroid nodules, Nonalcoholic fatty liver disease (04/12/2015), Obesitywith alveolar hypoventilation ([facility]/HCC), VIRGIE on CPAP, Osteoarthritis, Overactive bladder, Pain and swelling of left upper extremity (11/21/2021), Pre-diabetes (09/25/2017), Seasonal allergies (08/18/2013), Shingles, Sleep apnea, Stress incontinence, and Vitamin D deficiency (04/17/2019). 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 (eg wash nazario, wash floors) : 3 [...] educated pt re: progression of HEP AROM, publications inspector measured as above Pain Reassessment: no pain [...] Minutes Documentation completed by Chema Martins OT [facility] 175 [facility] 350 [facility] [address] Dept: [phone] Dept PATIENT NAME: Ana Luisa House : [...] 9:45 AM EDT Office Visit Adult Medicine [address] [phone] Ora Sweeney MD [address] [place] [address] 06/04/2024 10:30 AM EDT Consult Bariatric Surgery [facility] [address] [address] Lita Verde PA 271 [facility] 120 [place], [place] [address] 06/04/2024 11:45 AM EDT Office Visit Orthopedic Surgery [facility] [address] [address] Luis Armando Eller MD [address] [address] 06/05/2024 9:45 AM EDT Office Visit Orthopedic Surgery [facility] [address] [address] Duke Dunn, DPM [address] [address] 06/06/2024 2:30 PM EDT Office Visit Obstetrics and Gynecology - [address] [phone] Stacie Martinez, [facility] [address] [place] [address] 06/30/2024 10:30 AM EDT Office Visit Orthopedic Surgery [facility] [address] [address] Luis Armando Eller MD [address] [address] 07/02/2024 9:30 AM EDT Office Visit Orthopedic Surgery [facility] [address] [phone] Lorie Moore NP [address] [address] 07/09/2024 9:30 AM EDT Office Visit Endocrinology - [address] [phone] Jayesh Pineda MD [address] [place] [address] 09/22/2024 8:45 AM EDT Office Visit Pulmonolgy - [place] [address] [place] [address] Pretty Le MD 175 [facility] 200 [place] [address] documented as of this encounter Visit Diagnoses Diagnosis Rotator cuff tear arthropathy of left shoulder- Primary documented in this encounter Care Teams Public Policy Professor Relationship Specialty Start Date End Date Ora Sweeney MD [address] [place] [address] PCP - General Internal Medicine 01/09/24 documented as of this encounter
--- OUTSIDE RECORDS SUMMARY | 2024-04-22 10:10 | XMS_ITS | Encounter Summary ---
Author Organization [facility] Address [address] [place] [address] Care Team Providers Care Dry Cans Back Tender Name Role Phone Ora Ronquillo MD Primary Care Prov ider Jl Mendez MD Unavailable Jannette Boudreaux MD Unavailable [phone] Tenisha MendietaC Unavailable Julio Monk-C Unavailable Luis Armando Eller MD Unavailable [phone] Jayesh Pineda MD Unavailable Kelsi Tejada MD Unavailable Unavailable Pretty Le MD Unavailable Vesta Michael PA-C Unavailable [phone] [facility] Unavailable [phone] Encounter Details Date Type Department Care Team Description 06/19/2023 [facility] Medical [facility] 175 [facility] [address] [place] [address] Danielle Soni APRN Social History Tobacco Use Types Packs/Day Years Used Date Smoking Tobacco: Never Smokeless Tobacco: Never Alcohol Use Standard Drinks/Week Comments No 0 (1 standard drink = 0.6 oz pur e alcohol) Education Answer Date Recorded What is the highest level of school you have completed or the highest degree you have received? 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, COAL TRAMMER, CHANDRAKANT) 06/14/2020 Sex Assigned at Date Recorded Female 08/03/2020 10:16 PM EDT Job Start Date Occupation Industry Not on file Not on file Not on file documented as of this encounter Plan of Treatment Not on file documented as of this encounter Visit Diagnoses Not on filedocumented in this encounter Care Teams Dry Cans Back Tender Relationship Specialty Start Date End Date Oar Ronquillo MD [address] [place] [address] PCP - General Internal Medicine 10/11/21 Jl Mendez MD [address] [place] [address] Dr Montiel [address] [place] [address] Specialist Cardiovascular Disease 10/13/21 Jannette Boudreaux MD [address] [address] Surgeon Neurosurgery 04/07/22 Tenisha Mendieta PA-C [address] [address] Specialist Neurosurgery 04/07/22 Julio Monk PA-C [address] [address] Specialist Neurosurgery 04/07/22 Luis Armando Eller MD [address] [address] Specialist ORTHOPEDIC SURGERY 10/01/23 Jayesh Pineda MD [address] [place] [address] Specialist Endocrinology 10/01/23 Kelsi Tejada MD [address] [place] [address] Specialist Allergy & Immunology 10/01/23 Pretty Le MD 175 [facility] 200 [place] [address] Specialist Pulmonology 10/01/23 Vesta Michael PA-C 300 [facility] [address] [place] [address] Specialist Vascular Surgery 10/01/23 [facility] [address] [place] [address] Specialist Optometry 10/01/23 documented as of this encounter
--- OUTSIDE RECORDS SUMMARY | 2024-04-22 10:10 | XMS_ITS | Encounter Summary ---
Author Organization [facility] Address [address] [place] [address] Care Team Providers Care Inpatient Pharmacist Name Role Phone Teressa Solis DO Primary Care Pro vider Unavailable Mina Pretty DO Primary Care Provider Shweta Cronin MD Primary Care Provider Ora Diaz MD Primary Care Prov ider Jl Mendez MD Unavailable Jannette Boudreaux MD Unavailable [phone] Tenisha Mendieta PA-C Unavailable [phone] Julio Monk PA-C Unavailable Luis Armando Eller MD Unavailable [phone] Jayesh Pineda MD Unavailable Kelsi Tejada MD Unavailable Unavailable Pretty Le MD Unavailable Vesta Michael PA-C Unavailable [phone] [facility] Unavailable Encounter Details Date Type Department Care Team Description 06/12/2018 Telephone Adult Medicine - [place] [address] [place] [address] Dez Tristan MD Social History Tobacco Use Types Packs/Day [...] on filedocumented in this encounter Care Teams Inpatient Pharmacist Relationship Specialty Start Date End Date Teressa Solis DO PCP - General Internal Medicine 12/18/13 09/15/20 Mina Pretty DO PCP - General Internal Medicine 09/16/20 Shweta Boucher MD PCP - General Internal Medicine 01/12/21 10/10/21 Ora Ronquillo MD [address] [place] [address] PCP - General Internal Medicine 10/11/21 Jl Mendez MD [address] [place] [address] [place] [address] Specialist Cardiovascular Disease 10/13/21 Jannette Boudreaux MD [address] [address] Surgeon Neurosurgery 04/07/22 Tenisha Mendieta PA-C [address] [address] Specialist Neurosurgery 04/07/22 Julio Monk PA-C [address] [address] Specialist Neurosurgery 04/07/22 Luis Armando Eller MD [address] [address] Specialist ORTHOPEDIC SURGERY 10/01/23 Jayesh Pineda MD 305 [place] [address] Specialist Endocrinology 10/01/23 Kelsi Tejada MD 305 [place] [address] Specialist Allergy & Immunology 10/01/23 Pretty Le MD 175 [facility] [address] [place] [address] Specialist Pulmonology 10/01/23 Vesta Michael PA-C 300 [facility] 210 [place] [address] Specialist Vascular Surgery 10/01/23 [facility] 46 [place] [address] Specialist Optometry 10/01/23 documented as of this encounter
--- OUTSIDE RECORDS SUMMARY | 2024-04-22 10:10 | XMS_ITS | Encounter Summary ---
Author Organization [facility] Address [address] [place] [address] Care Team Providers Care Air Conditioning Mechanic Name Role Phone Ora Sweeney MD Primary Care Prov ider Reason for Visit * Consultation (Elective) - Authorized Specialty Diagnoses / Procedures Referred By Janie t Referred To Contact Occupational Therapy Diagnoses S/P left rotator cuff repair Luis Armando Eller MD 175 [facility] 160 [place] [address] Phone: tel: fax: [facility] Occupational Therapy [address] [address] Phone: tel: fax: Referral ID Status Reason Start Date Expiration Date Visits Requested Visits Authorized [id number] Authorized Specialty Services Required 01/08/2025 21 21 Encounter Details Date Type Department Care Team (Late st Contact Info) Description 03/25/2024 9:00 AM EST Treatment [facility] [address] [address] Lisa Jones COTA Social History [...] QUANG Hoffman - 03/25/2024 9:00 AM EST [facility] - Outpatient OCCUPATIONAL THERAPY DAILY TREATMENT NOTE Date: 03/25/2024 Visit Number: [id number] Patient Name: Ana Luisa House : 1960 Age: 63 y.o. Gender: female Diagnosis: No diagnosis found. Date of Onset: 12/06/2023 Referring Provider: Luis Armando Eller MD Insurance: [facility] [employer] PLAN MEDICARE ADVANTAGE / Plan: [facility] OPTIONS / Product Type: *No Product type* / Language: Speaks and understands Lithuanian as preferred language with no adolescent coordinator required Allergies: is allergic to cefadroxil, methylprednisolone, [...] 9:45 AM EDT Office Visit Adult Medicine [address] [address] Ora Sweeney MD 444 [place] [address] 06/04/2024 10:30 AM EDT Consult Bariatric Surgery [facility] [address] [phone] Lita Verde PA [address] [address] 06/04/2024 11:45 AM EDT Office Visit Orthopedic Surgery [facility] [address] [phone] Luis Armando Eller MD [address] [address] 06/05/2024 9:45 AM EDT Office Visit Orthopedic [facility] [address] [phone] Duke Dunn, DPM [address] [address] 06/06/2024 2:30 PM EDT Office Visit Obstetrics and Gynecology [address] [address] Stacie Martinez, [facility] 444 [place] [address] 06/30/2024 10:30 AM EDT Office Visit Orthopedic Surgery [facility] [address] [phone] Luis Armando Eller MD [address] [address] 07/02/2024 9:30 AM EDT Office Visit Orthopedic Surgery [facility] [address] [phone] Lorie Moore NP [address] [place] [address] 07/09/2024 9:30 AM EDT Office Visit Endocrinology [facility] [address] [place] [phone] Jayesh Pineda MD [address] [place] [address] 09/22/2024 8:45 AM EDT Office Visit Pulmonolgy - [place] 175 [facility] 200 [place] [address] Pretty Le MD 175 [facility] 200 [place] [address] documented as of this encounter Visit Diagnoses Not on filedocumented in this encounter Care Teams Air Conditioning Mechanic Relationship Specialty Start Date End Date Ora Sweeney MD 4 [place] [address] PCP - General Internal Medicine 01/09/24 documented as of this encounter
--- OUTSIDE RECORDS SUMMARY | 2024-04-22 10:10 | XMS_ITS | Encounter Summary ---
Author Organization [facility] Address [address] [place] [address] Care Team Providers Care Production Support Manager Name Role Phone Teressa Solis DO Primary Care Pro vider Unavailable Mina Pretty DO Primary Care Provider Ailyn Shweta Pretty MD Primary Care Provider Ora Diaz MD Primary Care Prov ider Jl Mendez MD Unavailable [phone] Jannette Boudreaux MD Unavailable [phone] Tenisha Mendieta PA-C Unavailable [phone] Julio Monk PA-C Unavailable [phone] Luis Armando Eller MD Unavailable [phone] Jayesh Pineda MD Unavailable Kelsi Tejada MD Unavailable Unavailable Pretty Le MD Unavailable Vesta Michael PA-C Unavailable [phone] [facility] Unavailable Encounter Details Date Type Department Care Team Description 08/31/2020 Refill Gastroenterology [facility] 175 [facility] [address] [place] [address] Luis Armando Staton MD Social History Tobacco Use Types Packs/Day Years Used Date Smoking Tobacco: Never Smokeless Tobacco: Never Alcohol Use Standard Drinks/Week Comments No 0 (1 standard drink = 0.6 oz pur e alcohol) Education Answer Date Recorded What is the highest level of school you have completed or the highest degree you have received? 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, UTILITY ACCOUNTS DIRECTOR, CHANDRAKANT) 06/14/2020 Sex Assigned at Date Recorded Female 08/03/2020 10:16 PM EDT Job Start Date Occupation Industry Not on file Not on file Not on file COVID-19 Exposure Response Date Recorded In the last month, have you been in contact with someone who was confirmed or suspected to have Coronavirus / COVID-19? No / Unsure 08/23/2020 10:17 AM EDT documented as of this encounter Miscellaneous Notes * Telephone Encounter - Marya Red M.A. - 09/01/2020 10:30 AM EDT Covering for Dr. Staton please and ty Jordyn - 01/09/2020 documented in this encounter Plan of Treatment Not on file documented as of this encounter Visit Diagnoses Not on filedocumented in this encounter Care Teams Production Support Manager Relationship Specialty Start Date End Date Teressa Solis, PCP - General Internal Medicine 12/18/13 09/15/20 Mina Pretty DO PCP - General Internal Medicine 09/16/20 1 Shweta Tellez MD PCP - General Internal Medicine 01/12/21 10/10/21 Ora Ronquillo MD [address] [place] [address] PCP - General Internal Medicine 10/11/21 Jl Mendez MD [address] [place] [address] [place] [address] Specialist Cardiovascular Disease 10/13/21 Jannette Boudreaux MD 175 [facility] [address] [place] [address] Surgeon Neurosurgery 04/07/22 Tenisha Mendieta PA-C 175 [facility] 300 [place] [address] Specialist Neurosurgery 04/07/22 Julio Monk PA-C 175 [facility] 300 [place] [address] Specialist Neurosurgery 04/07/22 Luis Armando Eller MD 175 [facility] 250 [place] [address] Specialist ORTHOPEDIC SURGERY 10/01/23 Jayesh Pineda MD 305 [place] [address] Specialist Endocrinology 10/01/23 Kelsi Tejada MD 305 [place] [address] Specialist Allergy & Immunology 10/01/23 Pretty Le MD 175 [facility] 200 [place] [phone] Specialist Pulmonology 10/01/23 Vesta Michael PA-C 300 [facility] 210 [place] [address] Specialist Vascular Surgery 10/01/23 [facility] 46 [place] [address] Specialist Optometry 10/01/23 documented as of this encounter
--- OUTSIDE RECORDS SUMMARY | 2024-04-22 10:10 | XMS_ITS | Encounter Summary ---
Author Organization [facility] Address [address] [place] [address] Care Team Providers Care Equipment Installation Professional Name Role Phone Ora Ronquillo MD Primary Care Prov ider Jl Mendez MD Unavailable Jannette Boudreaux MD Unavailable [phone] Tenisha Mendieta PA-C Unavailable Julio MonkC Unavailable Luis Armando Eller MD Unavailable [phone] Jayesh Pineda MD Unavailable Kelsi Tejada MD Unavailable Unavailable Pretty Le MD Unavailable Vesta Michael PA-Pina Unavailable [phone] [facility] Unavailable [phone] Encounter Details Date Type Department Care Team Description 09/14/2022 Vegetable Handler Report Medical Records 4 [place] [address] Jorge Belcher II Social History Tobacco Use Types Packs/Day Years Used Date Smoking Tobacco: Never Smokeless Tobacco: Never Alcohol Use Standard Drinks/Week Comments No 0 (1 standard drink = 0.6 oz pur e alcohol) Education Answer Date Recorded What is the highest level of school you have completed or the highest degree you have received? 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, JUNIOR HIGH SCHOOL PRINCIPAL, CHANDRAKANT) 06/14/2020 Sex Assigned at Date Recorded Female 08/03/2020 10:16 PM EDT Job Start Date Occupation Industry Not on file Not on file Not on file COVID-19 Exposure Response Date Recorded In the last 10 days, have yo u been in contact with someone who was confirmed or suspected to have Coronavirus/COVID-19? No / Unsure 08/21/2022 1:09 PM EDT documented as of this encounter Plan of Treatment Not on file documented as of this encounter Visit Diagnoses Not on filedocumented in this encounter Care Teams Equipment Installation Professional Relationship Specialty Start Date End Date Ora Ronquillo MD 444 [place] [address] PCP - General Internal Medicine 10/11/21 Jl Mendez MD [address] [place] [address] Dr Montiel [address] [place] [address] Specialist Cardiovascular Disease 10/13/21 Jannette Boudreaux MD [address] [facility] 300 [place] [address] Surgeon Neurosurgery 04/07/22 Tenisha Mendieta PA-C [address] [address] Specialist Neurosurgery 04/07/22 Julio Monk PA-C 175 [facility] 300 [place] [address] Specialist Neurosurgery 04/07/22 Luis Armando Eller MD [address] [address] Specialist ORTHOPEDIC SURGERY 10/01/23 Jayesh Pineda MD 305 [place] [address] Specialist Endocrinology 10/01/23 Kelsi Tejada MD 305 [place] [address] Specialist Allergy & Immunology 10/01/23 Pretty Le MD 175 [facility] 200 [place] [address] Specialist Pulmonology 10/01/23 Vesta Michael PA-C 300 [facility] 210 [place] [address] Specialist Vascular Surgery 10/01/23 [facility] 46 [place] [address] Specialist Optometry 10/01/23 documented as of this encounter
--- OUTSIDE RECORDS SUMMARY | 2024-04-22 10:10 | XMS_ITS | Encounter Summary ---
Author Organization [facility] Address [address] [place] [address] Care Team Providers Care Satellite Television Installer Name Role Phone Teressa Solis DO Primary Care Pro vider Unavailable Mina Pretty DO Primary Care Provider Shweta Cronin MD Primary Care Provider Ora Diaz MD Primary Care Prov ider Jl Mendez MD Unavailable [phone] Jannette Boudreaux MD Unavailable [phone] Tenisha Mendieta PA-C Unavailable Julio Monk PA-C Unavailable [phone] Luis Armando Eller MD Unavailable [phone] Jayesh Pineda MD Unavailable Kelsi Tejada MD Unavailable Unavailable Pretty Le MD Unavailable Vesta Michael PA-C Unavailable [facility] Unavailable Reason for Visit * Reason Onset Date Comments Prior Authorization 07/22/2020 Encounter Details Date Type Department Care Team Description 07/22/2020 [place] [facility] [address] [id number] Teressa Solis DO Prior Authorization Social History Tobacco Use Types Packs/Day Years Used Date Smoking Tobacco: Never Smokeless Tobacco: Never Alcohol Use Standard Drinks/Week Comments No 0 (1 standard drink = 0.6 oz pur e alcohol) Education Answer Date Recorded What is the highest level of school you have completed or the highest degree you have received? Master's degree (e.g., TANIA, MS, Lexi, Joel, TRAIN DRIVER, CHANDRAKANT) 06/14/2020 Sex Assigned at Date Recorded Female 08/03/2020 10:16 PM EDT Job Start Date Occupation Industry Not on file Not on file Not on file documented as of this encounter Miscellaneous Notes * Telephone Encounter - Naomy Mendoza M.A. - 07/27/2020 8:56 AM EDT Prior authorization for the pantopraZOLE was approved Approved on July 23 Start Date:07/23/2020 End Date:07/23/2021; * Telephone Encounter - Naomy Mendoza M.A. - 07/23/2020 12:15 PM EDT Prior authorization completed on cover my meds for the pantoprazole Dx K21.9 Continuation of therapy * Telephone Encounter - Luana Tsai - 07/22/2020 1:16 PM EDT Prior Authorization for Medication-do not complete and send this encounter unless you have the fax from the pharmacy. Is this a Cover My Meds request: Yes -- [place] Code [id number] Name of Medication Pantoprazole Sodium Dose of Medication 40mg What is the RX # from the faxed refill? How does patient take this med? Tablets What Pharmacy did the fax come from: [facility] Pharmacy fax #: [facility] Information from fax: What Prescription Plan does the patient have? [facility] BIN/PCN if applicable: Cardholder ID: Person Code: Relationship Code: Help desk phone: documented in this encounter Plan of Treatment Not on file documented as of this encounter Visit Diagnoses Not on filedocumented in this encounter Care Teams Satellite Television Installer Relationship Specialty Start Date End Date Teressa Solis DO PCP - General Internal Medicine 12/18/13 09/15/20 Mina Pretty DO PCP - General Internal Medicine 09/16/20 Shweta Boucher MD PCP - General Internal Medicine 01/12/21 10/10/21 Ora Ronquillo MD 444 [place] [address] PCP - General Internal Medicine 10/11/21 Jl Mendez MD [address] [place] [address] Dr Mont[address] [place] [address] Specialist Cardiovascular Disease 10/13/21 Jannette Boudreaux MD [address] [address] Surgeon Neurosurgery 04/07/22 Tenisha Mendieta PA-C [address] [address] Specialist Neurosurgery 04/07/22 Julio Monk PA-C [address] [address] Specialist Neurosurgery 04/07/22 Luis Armando Eller MD [address] [address] Specialist ORTHOPEDIC SURGERY 10/01/23 Jayesh Pineda MD 305 [place] [address] Specialist Endocrinology 10/01/23 Kelsi Tejada MD 305 [place] [address] Specialist Allergy & Immunology 10/01/23 Pretty Le MD 175 [facility] 200 [place] [phone] Specialist Pulmonology 10/01/23 Vesta Michael PA-C 300 [facility] 210 [place] [address] Specialist Vascular Surgery 10/01/23 [facility] 46 [place] [address] Specialist Optometry 10/01/23 documented as of this encounter
--- OUTSIDE RECORDS SUMMARY | 2024-04-22 10:10 | XMS_ITS | Encounter Summary ---
Author Organization [facility] Address [address] [place] [address] Care Team Providers Care Deaf Interpreter Name Role Phone Ora Ronquillo MD Primary Care Prov ider Jl Mendez MD Unavailable Jannette Boudreaux MD Unavailable [phone] Tenisha MendietaC Unavailable Julio Monk-C Unavailable Luis Armando Eller MD Unavailable [phone] Jayesh Pineda MD Unavailable Kelsi Tejada MD Unavailable Unavailable Pretty Le MD Unavailable Vesta Michael PA-C Unavailable [facility] Unavailable Reason for Referral * EXTERNAL (Routine) - Authorized/Booked Specialty Diagnoses / Procedures Referred By Janie castillo Referred To Contact Dermatology Procedures REFERRAL TO DERMATOLOGY Ora Ronquillo MD 444 [place] [address] Ezio Marr 125 [facility] [address] [place] [address] Referral ID Status Reason Start Date Expiration Date V isits Requested Visits Authorized [id number] Authorized/B ooked 08/21/2022 11/21/2022 1 1 Reason for Visit * Reason Onset Date Comments Maintenance [place] Feedback 08/21/2022 REFERRAL TO DERM ATOLOGY Encounter Details Date Type Department Care Team Description 08/21/2022 Telephone Adult Medicine [facility] 444 [place] [address] Ora Ronquillo MD 4 [place] [address] Maintenance [place] Feedback (REFERRAL TO DERMATOLOGY) Social History Tobacco Use Types Packs/Day Years Used Date Smoking Tobacco: Never Smokeless Tobacco: Never Alcohol Use Standard Drinks/Week Comments No 0 (1 standard drink = 0.6 oz pur e alcohol) Education Answer Date Recorded What is the highest level of school you have completed or the highest degree you have received? 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, AUTO SERVICE STATION ATTENDANT, CHANDRAKANT) 06/14/2020 Sex Assigned at Date Recorded [...] PM EDT documented as of this encounter Miscellaneous Notes * Telephone Encounter - Ora Couch MD - 08/21/2022 1:03 PM EDT Referral was signed, thank you * Telephone Encounter - Chris Raine - 08/21/2022 11:05 AM EDT Please review this patients new referral request.?? The referral has been pended.?? Please completethe following: ? If approved> sign order ? If denied>please give instructions and route to your practice nursing? pool.? Practice nurse should inform referrals and the patient if denied. The pt was referred to [facility] but they don't work with the pt's insurance and the pt needs a new referral. Thank you, Chris documented in this encounter Plan of Treatment Not on file documented as of this encounter Visit Diagnoses Not on filedocumented in this encounter Care Teams Deaf Interpreter Relationship Specialty Start Date End Date Ora Ronquillo MD [address] [place] [address] PCP - General Internal Medicine 10/11/21 Jl Mendez MD [address] [place] [address] Dr Mont[address] [place] [address] Specialist Cardiovascular Disease 10/13/21 Jannette Boudreaux MD 175 [facility] 300 [place] [address] Surgeon Neurosurgery 04/07/22 Tenisha Mendieta PA-C [address] [address] Specialist Neurosurgery 04/07/22 Julio Monk PA-C 175 [facility] 300 [place] [address] Specialist Neurosurgery 04/07/22 Luis Armando Eller MD 175 [facility] 250 [place] [address] Specialist ORTHOPEDIC SURGERY 10/01/23 Jayesh Pineda MD 305 [place] [address] Specialist Endocrinology 10/01/23 Kelsi Tejada MD 305 [place] [address] Specialist Allergy & Immunology 10/01/23 Pretty Le MD 175 [facility] [address] [place] [address] Specialist Pulmonology 10/01/23 Vesta Michael PA-C 300 [facility] 210 [place] [address] Specialist Vascular Surgery 10/01/23 [facility] 46 [place] [address] Specialist Optometry 10/01/23 documented as of this encounter
--- OUTSIDE RECORDS SUMMARY | 2024-04-22 10:10 | XMS_ITS | Encounter Summary ---
Author Organization [facility] Address [address] [place] [address] Care Team Providers Care Wafer Mounter Name Role Phone Teressa Solis DO Primary Care Pro vider Unavailable Mina Pretty DO Primary Care Provider Ailyn Shweta Pretty MD Primary Care Provider Ora Diaz MD Primary Care Prov ider Jl Mendez MD Unavailable [phone] Jannette Boudreaux MD Unavailable [phone] Tenisha Mendieta PA-C Unavailable Julio Monk PA-C Unavailable Luis Armando Eller MD Unavailable [phone] Jayesh Pineda MD Unavailable Kelsi Tejada MD Unavailable Unavailable Pretty Le MD Unavailable Vesta Michael PA-C Unavailable [phone] [facility] Unavailable [phone] Encounter Details Date Type Department Care Team Description 06/11/2018 Orders Only Adult Medicine [address] [id number] Teressa Solis DO Hypothyroidism due to acquired [...] as of this encounter Results * TSH (11/25/2018 10:25 AM EDT) TSH 2.82 0.40 - 4.00 uIU/ml 11/25/2018 3:58 PM EDT [facility] 11/25/2018 10:2 5 AM EDT 11/25/2018 10:26 AM EDT Teressa Grace DO LAB [facility] documented in this encounter Visit Diagnoses Diagnosis Hypothyroidism due to acquired atrophy of thyroid- Primary documented in this encounter Care Teams Wafer Mounter Relationship Specialty Start Date End Date Teressa Solis DO PCP - General Internal Medicine 12/18/13 09/15/20 Mina Pretty DO PCP - General Internal Medicine 09/16/20 1 Shweta Tellez MD PCP - General Internal Medicine 01/12/21 10/10/21 Ora Ronquillo MD [address] [place] [address] PCP - General Internal Medicine 10/11/21 Jl Mendez MD [address] [place] [address] Dr Montiel [address] [place] [address] Specialist Cardiovascular Disease 10/13/21 Jannette Boudreaux MD [address] [address] Surgeon Neurosurgery 04/07/22 Tenisha Mendieta PA-C 175 [facility] 300 [place] [address] Specialist Neurosurgery 04/07/22 Julio Monk PA-C 175 [facility] [address] [place] [address] Specialist Neurosurgery 04/07/22 Luis Armando Eller MD 175 [facility] 250 [place] [address] Specialist ORTHOPEDIC SURGERY 10/01/23 Jayesh Pineda MD 305 [place] [address] Specialist Endocrinology 10/01/23 Kelsi Tejada MD 305 [place] [address] Specialist Allergy & Immunology 10/01/23 Pretty Le MD 175 [facility] [address] [place] [address] Specialist Pulmonology 10/01/23 Vesta Michael PA-C 300 [facility] 210 [place] [address] Specialist Vascular Surgery 10/01/23 [facility] 46 [place] [address] Specialist Optometry 10/01/23 documented as of this encounter
--- OUTSIDE RECORDS SUMMARY | 2024-04-22 10:10 | XMS_ITS | Encounter Summary ---
Author Organization [facility] Address [address] [place] [address] Care Team Providers Care Data Modeling Specialist Name Role Phone Ora Ronquillo MD Primary Care Prov ider Jl Mendez MD Unavailable Jannette Boudreaux MD Unavailable [phone] Tenisha MendietaC Unavailable [phone] Julio Monk-C Unavailable Luis Armando Eller MD Unavailable [phone] Jayesh Pineda MD Unavailable Kelsi Tejada MD Unavailable Unavailable Pretty Le MD Unavailable Vesta Michael PA-C Unavailable [phone] [facility] Unavailable [phone] Encounter Details Date Type Department Care Team Description 06/22/2023 SCAN [facility] Medical [facility] 175 [facility] [address] [place] [address] Danielle Soni APRN Social History [...] 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, WOMEN'S BASKETBALL COACH, CHANDRAKANT) 06/14/2020 Sex Assigned at Date Recorded Female 08/03/2020 10:16 PM EDT Job Start Date Occupation Industry Not on file Not on file Not on file documented as of this encounter Plan of Treatment Not on file documented as of this encounter Visit Diagnoses Not on filedocumented in this encounter Care Teams Data Modeling Specialist Relationship Specialty Start Date End Date Ora Ronquillo MD [address] [place] [address] PCP - General Internal Medicine 10/11/21 Jl Mendez MD [address] [place] [address] Dr Montiel [address] [place] [address] Specialist Cardiovascular Disease 10/13/21 Jannette Boudreaux MD [address] [address] Surgeon Neurosurgery 04/07/22 Tenisha Mendieta PA-C [address] [address] Specialist Neurosurgery 04/07/22 Julio Monk PA-C [address] [address] Specialist Neurosurgery 04/07/22 Luis Armando Eller MD [address] [address] Specialist ORTHOPEDIC SURGERY 10/01/23 Jayesh Pineda MD 305 [place] [address] Specialist Endocrinology 10/01/23 Kelsi Tejada MD 305 [place] [address] Specialist Allergy & Immunology 10/01/23 Pretty Le MD 175 [facility] 200 [place] [address] Specialist Pulmonology 10/01/23 Vesta Michael PA-C 300 [facility] [address] [place] [address] Specialist Vascular Surgery 10/01/23 [facility] [address] [place] [address] Specialist Optometry 10/01/23 documented as of this encounter
--- OUTSIDE RECORDS SUMMARY | 2024-04-22 10:10 | XMS_ITS | Encounter Summary ---
Author Organization [facility] Address [address] [place] [address] Care Team Providers Care Lead Producer Name Role Phone Teressa Solis DO Primary Care Pro vider Unavailable Mina Pretty DO Primary Care Provider Shweta Cronin MD Primary Care Provider Ora Diaz MD Primary Care Prov ider Jl Mendez MD Unavailable Jannette Boudreaux MD Unavailable [phone] Tenisha Mendieta PA-C Unavailable [phone] Julio Monk PA-C Unavailable Luis Armando Eller MD Unavailable [phone] Jayesh Pineda MD Unavailable Kelsi Tejada MD Unavailable Unavailable Pretty Le MD Unavailable Vesta Michael PA-C Unavailable [phone] [facility] Unavailable Reason for Visit * Reason Comments E-prescribe Rx Request Encounter Details Date Type Department Care Team Description 07/05/2020 Refill Medicine/Pediatrics [address] [id number] Teressa Solis DO E-prescribe Rx Request Social History Tobacco Use Types Packs/Day Years Used Date Smoking Tobacco: Never Smokeless Tobacco: Never Alcohol Use Standard Drinks/Week Comments No 0 (1 standard drink = 0.6 oz pur e alcohol) Education Answer Date Recorded What is the highest level of school you have completed or the highest degree you have received? 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, SURFACE PLATE INSPECTOR, CHANDRAKANT) 06/14/2020 Sex Assigned at Date Recorded Female 08/03/2020 10:16 PM EDT Job Start Date Occupation Industry Not on file Not on file Not on file COVID-19 Exposure Response Date Recorded In the last month, have you been in contact with someone who was confirmed or suspected to have Coronavirus / COVID-19? No / Unsure 06/17/2020 10:15 AM EDT documented as of this encounter Miscellaneous Notes * Telephone Encounter - Lubna Thornton M.A. - 07/05/2020 4:23 PM EDT Lab Results Component Value Date TSH 4.55 06/17/2020 Last appt with Endo 04/26/20 * Telephone Encounter - Hanny Reyes - 07/05/2020 11:33 AM EDT Patient would like script to be: E-PRESCRIBED/FAXED TO PHARMACY WHEN WAS THE PATIENT'S LAST APPOINTMENT IN ADULT MEDICINE? 06/14/20 WHEN WAS THE LAST TIME THE PATIENT SAW THEIR PCP? 08/19/19 Does patient have an upcoming appointment? 11/16/20 (THE MEDICATION REQUESTED IS ON THE MED LIST ABOVE) All of the medications requested were on the CURRENT MEDS list Did you check the Pharmacy information above?: YES Patient wants: 90 -day supply Is this a mail order prescription request ? NO If the refill is from a FAXED refill request what is the RX # listed on the fax? N/A Patients current insurance carrier is: Payor: What They [employer] FFS / Plan[facility] [place] / Product Type: MEDICAID RISK documented in this encounter Plan of Treatment Not on file documented as of this encounter Visit Diagnoses Not on filedocumented in this encounter Care Teams Lead Producer Relationship Specialty Start Date End Date Teressa Solis DO PCP - General Internal Medicine 12/18/13 09/15/20 Mina Pretty DO PCP - General Internal Medicine 09/16/20 Shweta Boucher MD PCP - General Internal Medicine 01/12/21 10/10/21 Ora Ronquillo MD [address] [place] [address] PCP - General Internal Medicine 10/11/21 Jl Mendez MD [address] [place] [address] Dr Mont[address] [place] [address] Specialist Cardiovascular Disease 10/13/21 Jannette Boudreaux MD [address] [address] Surgeon Neurosurgery 04/07/22 Tenisha Mendieta PA-C [address] [address] Specialist Neurosurgery 04/07/22 Julio Monk PA-C 175 [facility] [address] [place] [address] Specialist Neurosurgery 04/07/22 Luis Armando Eller MD [address] [address] Specialist ORTHOPEDIC SURGERY 10/01/23 Jayesh Pineda MD 305 [place] [address] Specialist Endocrinology 10/01/23 Kelsi Tejada MD 305 [place] [address] Specialist Allergy & Immunology 10/01/23 Pretty Le MD 175 [facility] [address] [place] [address] Specialist Pulmonology 10/01/23 Vesta Michael PA-C 300 [facility] 210 [place] [address] Specialist Vascular Surgery 10/01/23 [facility] 46 [place] [address] Specialist Optometry 10/01/23 documented as of this encounter
--- OUTSIDE RECORDS SUMMARY | 2024-04-22 10:10 | XMS_ITS | Encounter Summary ---
Author Organization [facility] Address [address] [place] [address] Care Team Providers Care Antisqueak Worker Name Role Phone Ora Ronquillo MD Primary Care Prov ider Jl Mendez MD Unavailable Jannette Boudreaux MD Unavailable [phone] Tenisha Mendieta PA-C Unavailable Julio MonkC Unavailable Luis Armando Eller MD Unavailable [phone] Jayesh Pineda MD Unavailable Kelsi Tejada MD Unavailable Unavailable Pretty Le MD Unavailable Vesta Michael PA-C Unavailable [phone] [facility] Unavailable [phone] Encounter Details Date Type Department Care Team Description 09/26/2022 Undertaker Assistant Report Medical Records 4 [place] [address] Jensen Nam MD Social History Tobacco Use Types Packs/Day Years Used Date Smoking Tobacco: Never Smokeless Tobacco: Never Alcohol Use Standard Drinks/Week Comments No 0 (1 standard drink = 0.6 oz pur e alcohol) Education Answer Date Recorded What is the highest level of school you have completed or the highest degree you have received? 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, MATERIAL PROCESSOR, CHANDRAKANT) 06/14/2020 Sex Assigned at Date Recorded Female 08/03/2020 10:16 PM EDT Job Start Date Occupation Industry Not on file Not on file Not on file COVID-19 Exposure Response Date Recorded In the last 10 days, have yo u been in contact with someone who was confirmed or suspected to have Coronavirus/COVID-19? No / Unsure 09/19/2022 10:37 AM EDT documented as of this encounter Plan of Treatment Not on file documented as of this encounter Visit Diagnoses Not on filedocumented in this encounter Care Teams Antisqueak Worker Relationship Specialty Start Date End Date Ora Ronquillo MD 444 [place] [address] PCP - General Internal Medicine 10/11/21 Jl Mendez MD [address] [place] [address] Dr Montiel [address] [place] [address] Specialist Cardiovascular Disease 10/13/21 Jannette Boudreaux MD 175 [facility] 300 [place] [address] Surgeon Neurosurgery 04/07/22 Tenisha Mendieta PA-C [address] [address] Specialist Neurosurgery 04/07/22 Julio Monk PA-C 175 [facility] 300 [place] [address] Specialist Neurosurgery 04/07/22 Luis Armando Eller MD [address] [address] Specialist ORTHOPEDIC SURGERY 10/01/23 Jayesh Pineda MD 305 [place] [address] Specialist Endocrinology 10/01/23 Kelsi Tejada MD 305 [place] [address] Specialist Allergy & Immunology 10/01/23 Pretty Le MD 175 [facility] 200 [place] [address] Specialist Pulmonology 10/01/23 Vesta Michael PA-C 300 [facility] 210 [place] [address] Specialist Vascular Surgery 10/01/23 [facility] 46 [place] [address] Specialist Optometry 10/01/23 documented as of this encounter
--- OUTSIDE RECORDS SUMMARY | 2024-04-22 10:10 | XMS_ITS | Encounter Summary ---
Author Organization [facility] Address [address] [place] [address] Care Team Providers Care Process Design Engineer Name Role Phone Teressa Solis DO Primary Care Pro vider Unavailable Mina Pretty DO Primary Care Provider Ailyn Shweta Pretty MD Primary Care Provider Ora Diaz MD Primary Care Prov ider Jl Mendez MD Unavailable Jannette Boudreaux MD Unavailable [phone] Tenisha Mendieta PA-C Unavailable Julio Monk PA-C Unavailable Luis Armando Eller MD Unavailable [phone] Jayesh Pineda MD Unavailable Kelsi Tejada MD Unavailable Unavailable Pretty Le MD Unavailable Vesta Michael PA-C Unavailable [facility] Unavailable Encounter Details Date Type Department Care Team Description 06/01/2020 Partner Cco Report Medical Records 4 [place] [address] Abstract, Provider Social History Tobacco Use Types [...] have Coronavirus / COVID-19? No / Unsure 05/21/2020 12:26 PM EST documented as of this encounter Plan of Treatment Not on file documented as of this encounter Visit Diagnoses Not on filedocumented in this encounter Care Teams Process Design Engineer Relationship Specialty Start Date End Date Teressa Solis DO PCP - General Internal Medicine 12/18/13 09/15/20 Mina Pretty DO PCP - General Internal Medicine 09/16/20 Shweta Boucher MD PCP - General Internal Medicine 01/12/21 10/10/21 Ora Ronquillo MD [address] [place] [address] PCP - General Internal Medicine 10/11/21 Jl Mendez MD [address] [place] [address] Dr Mont[address] [place] [address] Specialist Cardiovascular Disease 10/13/21 Jannette Boudreaux MD [address] [address] Surgeon Neurosurgery 04/07/22 Tenisha Mendieta PA-C [address] [address] Specialist Neurosurgery 04/07/22 Julio Monk PA-C 175 [facility] [address] [place] [address] Specialist Neurosurgery 04/07/22 Luis Armando Eller MD [address] [address] Specialist ORTHOPEDIC SURGERY 10/01/23 Jayesh Pineda MD [address] [place] [address] Specialist Endocrinology 10/01/23 Kelsi Tejada MD 305 [place] [address] Specialist Allergy & Immunology 10/01/23 Pretty Le MD 175 [facility] [address] [place] [address] Specialist Pulmonology 10/01/23 Vesta Michael PA-C 300 [facility] 210 [place] [address] Specialist Vascular Surgery 10/01/23 [facility] 46 [place] [address] Specialist Optometry 10/01/23 documented as of this encounter
--- OUTSIDE RECORDS SUMMARY | 2024-04-22 10:10 | XMS_ITS | Encounter Summary ---
Author Organization [facility] Address [address] [place] [address] Care Team Providers Care Adjunct Mathematics Instructor Name Role Phone Teressa Solis DO Primary Care Pro vider Unavailable Mina Pretty DO Primary Care Provider Shweta Cronin MD Primary Care Provider Ora Diaz MD Primary Care Prov ider Jl Mendez MD Unavailable [phone] Jannette Boudreaux MD Unavailable [phone] Tenisha Mendieta PA-C Unavailable Julio MonkC Unavailable Luis Armando Eller MD Unavailable [phone] Jayesh Pineda MD Unavailable Kelsi Tejada MD Unavailable Unavailable Pretty Le MD Unavailable Vesta Michael PA-C Unavailable [facility] Unavailable [phone] Encounter Details Date Type Department Care Team Description 06/22/2020 Refill Nephrology - [address] [address] Mukesh Hebert MD [address] [place] [id number] Social History Tobacco Use Types Packs/Day Years Used Date Smoking Tobacco: Never Smokeless Tobacco: Never Alcohol Use Standard Drinks/Week Comments No 0 (1 standard drink = 0.6 oz pur e alcohol) Education Answer Date Recorded What is the highest level of school you have completed or the highest degree you have received? 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, LOSS PREVENTION/SAFETY DISTRICT MANAGER, CHANDRAKANT) 06/14/2020 Sex Assigned at Date Recorded [...] on filedocumented in this encounter Care Teams Adjunct Mathematics Instructor Relationship Specialty Start Date End Date Teressa Solis DO PCP - General Internal Medicine 12/18/13 09/15/20 Mina Pretty DO PCP - General Internal Medicine 09/16/20 Shweta Boucher MD PCP - General Internal Medicine 01/12/21 10/10/21 Ora Ronquillo MD [address] [place] [address] PCP - General Internal Medicine 10/11/21 Jl Mendez MD [address] [place] [address] Dr Montiel [address] [place] [address] Specialist Cardiovascular Disease 10/13/21 Jannette Boudreaux MD [address] [address] Surgeon Neurosurgery 04/07/22 Tenisha Mendieta PA-C [address] [address] Specialist Neurosurgery 04/07/22 Julio Monk PA-C [address] [place] [address] Specialist Neurosurgery 04/07/22 Luis Armando Eller MD 175 [facility] 250 [place] [address] Specialist ORTHOPEDIC SURGERY 10/01/23 Jayesh Pineda MD 305 [place] [address] Specialist Endocrinology 10/01/23 Kelsi Tejada MD 305 [place] [address] Specialist Allergy & Immunology 10/01/23 Pretty Le MD 175 [facility] 200 [place] [address] Specialist Pulmonology 10/01/23 Vesta Michael PA-C 300 [facility] 210 [place] [address] Specialist Vascular Surgery 10/01/23 [facility] 46 [place] [address] Specialist Optometry 10/01/23 documented as of this encounter
--- OUTSIDE RECORDS SUMMARY | 2024-04-22 10:10 | XMS_ITS | Encounter Summary ---
Author Organization [facility] Address [address] [place] [address] Care Team Providers Care Voyage Management System Operator Name Role Phone Teressa Solis DO Primary Care Pro vider Unavailable Mina Pretty DO Primary Care Provider Shweta Cronin MD Primary Care Provider Ora Diaz MD Primary Care Prov ider Jl Mendez MD Unavailable [phone] Jannette Boudreaux MD Unavailable [phone] Tenisha Mendieta PA-C Unavailable Julio Monk PA-C Unavailable [phone] Luis Armando Eller MD Unavailable [phone] Jayesh Pineda MD Unavailable Kelsi Tejada MD Unavailable Unavailable Pretty Le MD Unavailable Vesta Michael PA-C Unavailable [phone] [facility] Unavailable [phone] Encounter Details Date Type Department Care Team Description 05/17/2020 Plastics Factory Worker Report Medical Records 4 [place] [address] Randy Domínguez MD Social History Tobacco Use [...] have Coronavirus / COVID-19? No / Unsure 05/10/2020 10:38 AM EST documented as of this encounter Plan of Treatment Not on file documented as of this encounter Visit Diagnoses Not on filedocumented in this encounter Care Teams Voyage Management System Operator Relationship Specialty Start Date End Date Teressa Solis DO PCP - General Internal Medicine 12/18/13 09/15/20 Mina Pretty DO PCP - General Internal Medicine 09/16/20 Shweta Boucher MD PCP - General Internal Medicine 01/12/21 10/10/21 Ora Ronquillo MD [address] [place] [address] PCP - General Internal Medicine 10/11/21 Jl Mendez MD [address] [place] [address] Dr Montiel [address] [place] [address] Specialist Cardiovascular Disease 10/13/21 Jannette Boudreaux MD [address] [address] Surgeon Neurosurgery 04/07/22 Tenisha Mendieta PA-C [address] [address] Specialist Neurosurgery 04/07/22 Julio Monk PA-C [address] [address] Specialist Neurosurgery 04/07/22 Luis Armando Eller MD [address] [address] Specialist ORTHOPEDIC SURGERY 10/01/23 Jayesh Pineda MD 305 [place] [address] Specialist Endocrinology 10/01/23 Kelsi Tejada MD 305 [place] [address] Specialist Allergy & Immunology 10/01/23 Pretty Le MD 175 [facility] [address] [place] [address] Specialist Pulmonology 10/01/23 Vesta Micheal PA-C 300 [facility] 210 [place] [address] Specialist Vascular Surgery 10/01/23 [facility] 46 [place] [address] Specialist Optometry 10/01/23 documented as of this encounter
--- OUTSIDE RECORDS SUMMARY | 2024-04-22 10:10 | XMS_ITS | Encounter Summary ---
Author Organization [facility] Address [address] [place] [address] Care Team Providers Care Freight Car Builder Name Role Phone Teressa Solis DO Primary Care Pro vider Unavailable Mina Pretty DO Primary Care Provider Ailyn Shweta Pretty MD Primary Care Provider UnaOra Randall MD Primary Care Prov ider Jl Mendez MD Unavailable Jannette Boudraeux MD Unavailable [phone] Tenisha Mendieta PA-C Unavailable Julio MonkC Unavailable [phone] Luis Armando Eller MD Unavailable [phone] Jayesh Pineda MD Unavailable Kelsi Tejada MD Unavailable Unavailable Pretty Le MD Unavailable Vesta Michael PA-C Unavailable [facility] Unavailable Encounter Details Date Type Department Care Team Description 06/10/2020 Refill Pulmonology - [place] 175 [facility] [address] [place] [address] Julio Cesar Weiss MD [address] [facility] [address] [place] [address] Social History Tobacco Use Types Packs/Day Years [...] as of this encounter Visit Diagnoses Diagnosis Moderate persistent asthma without complication Unspecified asthma Gastroesophageal reflux disease without esophagitis Esophageal reflux Obstructive sleep apnea severe AHI 35 Obstructive sleep apnea (adult) (pediatric) Need for prophylactic vaccination against Streptococcus pneumoniae (pneumococcus) Need for prophylactic vaccination against streptococcus pneumoniae (pneumococcus) documented in this encounter Care Teams Freight Car Builder Relationship Specialty Start Date End Date Teressa Solis DO PCP - General Internal Medicine 12/18/13 09/15/20 Mina Pretty DO PCP - General Internal Medicine 09/16/20 1 Shweta Tellez MD PCP - General Internal Medicine 01/12/21 10/10/21 Hiwot Couch, Ora Kelly MD [address] [place] [address] PCP - General Internal Medicine 10/11/21 Jl Mendez MD [address] [place] [address] Dr Montiel [address] [place] [address] Specialist Cardiovascular Disease 10/13/21 Jannette Boudreaux MD [address] [address] Surgeon Neurosurgery 04/07/22 Tenisha Mendieta PA-C [address] [address] Specialist Neurosurgery 04/07/22 Julio Monk PA-C [address] [address] Specialist Neurosurgery 04/07/22 Luis Armando Eller MD 175 [facility] [address] [place] [address] Specialist ORTHOPEDIC SURGERY 10/01/23 Jayesh Pineda MD 305 [place] [address] Specialist Endocrinology 10/01/23 Kelsi Tejada MD 305 [place] [address] Specialist Allergy & Immunology 10/01/23 Pretty Le MD 175 [facility] [address] [place] [address] Specialist Pulmonology 10/01/23 Vesta Michael PA-C 300 [facility] [address] [place] [address] Specialist Vascular Surgery 10/01/23 [facility] 46 [place] [address] Specialist Optometry 10/01/23 documented as of this encounter
--- OUTSIDE RECORDS SUMMARY | 2024-04-22 10:10 | XMS_ITS | Encounter Summary ---
Author Organization [facility] Address [address] [place] [address] Care Team Providers Care Educational Administration Teacher Name Role Phone Teressa Solis DO Primary Care Pro vider Unavailable Mina Pretty DO Primary Care Provider Shweta Cronin MD Primary Care Provider Ora Diaz MD Primary Care Prov ider Jl Mendez MD Unavailable Jannette Boudreaux MD Unavailable [phone] Tenisha Mendieta PA-C Unavailable Julio Monk PA-C Unavailable [phone] Luis Armando Eller MD Unavailable [phone] Jayesh Pineda MD Unavailable Kelsi Tejada MD Unavailable Unavailable Pretty Le MD Unavailable Vesta Michael PA-C Unavailable [facility] Unavailable [phone] Encounter Details Date Type Department Care Team Description 06/21/2018 SCAN Medical Records 4 [place] [address] Abstract, Provider Social History Tobacco Use Types [...] Associated Diagnosis Comments OUTSIDE VASCULAR STUDY Routine 04/25/2018 documented in this encounter Results * OUTSIDE VASCULAR STUDY (04/25/2018) Provider Abstract CARDIOLOGY documented in this encounter Visit Diagnoses Not on filedocumented in this encounter Care Teams Educational Administration Teacher Relationship Specialty Start Date End Date Teressa Solis DO PCP - General Internal Medicine 12/18/13 09/15/20 Mina Pretty DO PCP - General Internal Medicine 09/16/20 Shweta Boucher MD PCP - General Internal Medicine 01/12/21 10/10/21 Ora Ronquillo MD [address] [place] [address] PCP - General Internal Medicine 10/11/21 Jl Mendez MD [address] [place] [address] Dr Mont[address] [place] [address] Specialist Cardiovascular Disease 10/13/21 Jannette Boudreaux MD [address] [address] Surgeon Neurosurgery 04/07/22 Tenisha Mendieta PA-C [address] [address] Specialist Neurosurgery 04/07/22 Julio Monk PA-C [address] [address] Specialist Neurosurgery 04/07/22 Luis Armando Eller MD [address] [address] Specialist ORTHOPEDIC SURGERY 10/01/23 Jayesh Pineda MD 305 [place] [address] Specialist Endocrinology 10/01/23 Kelsi Tejada MD 305 [place] [address] Specialist Allergy & Immunology 10/01/23 Pretty Le MD 175 [facility] [address] [place] [address] Specialist Pulmonology 10/01/23 Vesta Michael PA-C 300 [facility] 210 [place] [address] Specialist Vascular Surgery 10/01/23 [facility] 46 [place] [address] Specialist Optometry 10/01/23 documented as of this encounter
--- OUTSIDE RECORDS SUMMARY | 2024-04-22 10:10 | XMS_ITS | Encounter Summary ---
Author Organization [facility] Address [address] [place] [address] Care Team Providers Care Vice President Of Compliance Name Role Phone Ora Sweeney MD Primary Care Prov ider Reason for Visit * Reason Comments Follow-up Encounter Details Date Type Department Care Team ([facility] st Contact Info) Description 03/26/2024 9:45 AM EST Office Visit Orthopedic Surgery - [place] 160 175 [facility] [address] [place] [phone] Luis Armando Eller MD 175 [facility] 160 [place] [address] S/P left rotator cuff repair (Primary Dx) [...] your loved ones. For example, child care attendant school or elderly care for an older adult? [...] Asthma- chronic obstructive pulmonary disease overlap syndrome ([facility]/HCC) (01/30/2022), Class 3 severe obesity due to excess calories with serious comorbidity and body mass index (BMI) of 40.0 to 44.9 in adult ([facility]/HCC) (07/15/2019), COVID-19, CTS (carpal tunnel syndrome), Depression, Depressive disorder, Diabetes mellitus ([facility]), Diabetes mellitus type 2, controlled, without complications ([facility]) (02/16/2021), Family history of colon cancer, Fatty liver, Gastroesophageal reflux disease without esophagitis (08/30/2015), HLD (hyperlipidemia) (11/21/2021), Hypertension, Hypothyroid, Migraines, Mild concentric left ventricular hypertrophy (08/23/2021), Morbid obesity with BMI of 40.0-44.9, adult (CMS/HCC), Multiple thyroid nodules, Nonalcoholic fatty liver disease (04/12/2015), Obesity with alveolar hypoventilation (CMS/HCC), VIRGIE on CPAP, Osteoarthritis, Overactive bladder, Pain [...] colon polyp: Tubular adenoma. ESOPHAGOGASTRODUODENOSCOPY 09/22/2021 PROCEDURE: MT EGD TRANSORAL BIOPSY SINGLE/MULTIPLE; COMMENT: EGD including biopsy normal EXCISION BENIGN SKIN LESION TRUNK / ARM / LEG PROCEDURE: MT EXCISION TUMOR SOFT TISSUE BACK/FLANK SUBQ <3CM; COMMENT: Lipomas removed HERNIA REPAIR PROCEDURE: HISTORICAL HERNIA REPAIR/ING KNEE ARTHROSCOPY Right PROCEDURE: MT ARTHROSCOPY KNEE DIAGNOSTIC W/WO SYNOVIAL BX SPX OTHER SURGICAL HISTORY PROCEDURE: MT BIOPSY THYROID PERCUTANEOUS CORE NEEDLE OTHER SURGICAL HISTORY PROCEDURE: CYSTOSCOPY/SURG, URETHRA/BLAD NECK; COMMENT: sling procedure for stress incontinence OTHER SURGICAL HISTORY Right 08/25/2015 PROCEDURE: MT EXCISION NAIL MATRIX PERMANENT REMOVAL; COMMENT: right rocaelux Dr. Rangel OTHER SURGICAL HISTORY PROCEDURE: HISTORY OTHER; COMMENT: Maxillofacial surgery ROTATOR CUFF REPAIR Left 12/06/2023 PROCEDURE: HISTORICAL ROTATOR CUFF REPAIR; COMMENT: Left shoulder arthroscopic rotator cuff repair.Subacromial decompression. Labral debridement. TONSILLECTOMY PROCEDURE: HISTORICAL TONSILLECTOMY; COMMENT: and adenoids UPPER GASTROINTESTINAL ENDOSCOPY 09/29/2019 PROCEDURE: MT UPPER GI ENDOSCOPY PERFORMED; COMMENT: Visually normal [...] AM EDT Office Visit Adult Medicine [facility] [address] [place], [place] [phone] Ora Sweeney MD 444 [place], [place] 06/04/2024 10:30 AM EDT Consult Bariatric Surgery [facility] [address] [phone] Lita Verde PA [address] [address] 06/04/2024 11:45 AM EDT Office Visit Orthopedic Surgery [facility] [address] [phone] Luis Armando Eller MD [address] [address] 06/05/2024 9:45 AM EDT Office Visit Orthopedic Surgery [facility] 250 175 [facility] 250 [place] [phone] Duke Dunn DPJohan [address] [address] 06/06/2024 2:30 PM EDT Office Visit Obstetrics and Gynecology [address] [phone] Stacie Martinez, ALFONSO 444 [place], [place] 06/30/2024 10:30 AM EDT Office Visit Orthopedic Surgery [facility] [address] [phone] Luis Armando Eller MD 175 [facility] 160 [place] [address] 07/02/2024 9:30 AM EDT Office Visit Orthopedic Surgery - [place] 250 175 [facility] 250 [place] [address] Lorie Moore NP 175 [facility] 250 [place] [address] 07/09/2024 9:30 AM EDT Office Visit Endocrinology [facility] 444 [place] [address] Jayesh Pineda MD 725 [place] [address] 09/22/2024 8:45 AM EDT Office Visit Pulmonolgy - [place] 175 [facility] 200 [place] [address] Pretty Le MD 175 [facility] 200 [place] [address] documented as of this encounter Visit Diagnoses Diagnosis S/P left rotator cuff repair- Primary documented in this encounter Care Teams Vice President Of Compliance Relationship Specialty Start Date End Date Ora Sweeney MD 4 [place] [address] PCP - General Internal Medicine 01/09/24 documented as of this encounter
--- OUTSIDE RECORDS SUMMARY | 2024-04-22 10:10 | XMS_ITS | Encounter Summary ---
Author Organization [facility] Address [address] [place] [address] Care Team Providers Care Digital Learning Platforms Manager Name Role Phone Ora Ronquillo MD Primary Care Prov ider Jl Mendez MD Unavailable [phone] Jannette Boudreaux MD Unavailable [phone] Tenisha Mendieta PA-C Unavailable [phone] Julio Monk PA-C Unavailable Luis Armando Eller MD Unavailable [phone] Jayesh Pineda MD Unavailable Kelsi Tejada MD Unavailable Unavailable Pretty Le MD Unavailable Vesta Michael PA-C Unavailable [facility] Unavailable [phone] Reason for Visit * Reason Onset Date Comments DME Request 08/11/2022 Encounter Details Date Type Department Care Team Description 08/11/2022 Telephone Pulmonology [facility] 175 [facility] [address] [place] [address] Michael Saldana MD DME Request Social History Tobacco Use Types Packs/Day Years Used Date Smoking Tobacco: Never Smokeless Tobacco: Never Alcohol Use Standard Drinks/Week Comments No 0 (1 standard drink = 0.6 oz pur e alcohol) Education Answer Date Recorded What is the highest level of school you have completed or the highest degree you have received? 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, CUSTOM STOCK MAKER, CHANDRAKANT) 06/14/2020 Sex Assigned at Date Recorded Female 08/03/2020 10:16 PM EDT Job Start Date Occupation Industry Not on file Not on file Not on file COVID-19 Exposure Response Date Recorded In the last 10 days, have yo u been in contact with someone who was confirmed or suspected to have Coronavirus/COVID-19? No / Unsure 08/11/2022 10:48 AM EDT documented as of this encounter Miscellaneous Notes * Telephone Encounter - Destini Anedrsen - 08/11/2022 1:11 PM EDT Supplies order faxed to regional documented in this encounter Plan of Treatment Not on file documented as of this encounter Visit Diagnoses Not on filedocumented in this encounter Care Teams Digital Learning Platforms Manager Relationship Specialty Start Date End Date Ora Ronquillo MD [address] [place] [address] PCP - General Internal Medicine 10/11/21 Jl Mendez MD [address] [place] [address] Dr Montiel [address] [place] [address] Specialist Cardiovascular Disease 10/13/21 Jannette Boudreaux MD [address] [address] Surgeon Neurosurgery 04/07/22 Tenisha Mendieta PA-C [address] [address] Specialist Neurosurgery 04/07/22 Julio Monk PA-C 175 [facility] [address] [place] [address] Specialist Neurosurgery 04/07/22 Luis Armando Eller MD [address] [address] Specialist ORTHOPEDIC SURGERY 10/01/23 Jayesh Pineda MD 305 [place] [address] Specialist Endocrinology 10/01/23 Kelsi Tejada MD 305 [place] [address] Specialist Allergy & Immunology 10/01/23 Pretty Le MD 175 [facility] [address] [place] [address] Specialist Pulmonology 10/01/23 Vesta Michael PA-C 300 [facility] [address] [place] [address] Specialist Vascular Surgery 10/01/23 [facility] 46 [place] [address] Specialist Optometry 10/01/23 documented as of this encounter
--- OUTSIDE RECORDS SUMMARY | 2024-04-22 10:11 | XMS_ITS | Encounter Summary ---
Author Organization [facility] Address [address] [place] [address] Care Team Providers Care Warp Tier Name Role Phone Teressa Solis DO Primary Care Pro vider Unavailable Mina Pretty DO Primary Care Provider Ailyn Shweta Pretty MD Primary Care Provider UnaOra Randall MD Primary Care Prov ider Jl Mendez MD Unavailable Jannette Boudreaux MD Unavailable [phone] Tenisha Mendieta PA-C Unavailable [phone] Julio Monk PA-C Unavailable [phone] Luis Armando Eller MD Unavailable [phone] Jayesh Pineda MD Unavailable Kelsi Tejada MD Unavailable Unavailable Pretty Le MD Unavailable Vesta Michael PA-C Unavailable [phone] [facility] Unavailable Reason for Referral * Non VLAD (Routine) - Closed Specialty Diagnoses / Procedures Referred By Janie castillo Referred To Contact Vascular Surgery Procedures REFERRAL TO VASCULAR SURGERY (IN NETWORK) Teressa Solis DO [address] [place] [address] Jeff Ogden MD 300 [facility] [address] [place] [address] Referral ID Status Reason Start Date Expiration Date Visits Re quested Visits Authorized [id number] Closed 11/18/2018 11/18/2019 1 1 Reason for Visit * Reason Onset Date Comments Statistical Programmer Analyst Feedback 11/18/2018 Dr. Ogden Encounter Details Date Type Department Care Team Description 11/18/2018 Telephone Adult [address] [address] Teressa Solis DO Statistical Programmer Analyst Feedback (Dr. Ogden) Social History Tobacco Use Types Packs/Day Years [...] encounter Miscellaneous Notes * Telephone Encounter - Denita Vidales PA-C - 11/18/2018 12:50 PM EDT Order signed * Telephone Encounter - Janeth Angeles - 11/18/2018 11:17 AM EDT Please review this patients new referral request. The referral has been pended. Please complete thefollowing: If approved> sign order If denied>please give instructions and route to your practice nursing pool. Practice nurse should inform referrals and the patient if denied. * Telephone Encounter - Charo Edwardo - 11/18/2018 11:11 AM EDT What insurance does the patient have today? Payor: [facility] [employer] FFS / Plan: [employer] / Product Type: MEDICAID RISK Effective 12/10/08: BCBS will not retro referral requests over 90 days. If request is for this please instruct patient to call the 800# on their insurance card to appeal. Do not submit a request. Referrals cannot be processed if the insurance is not accurate. If the insurance listed above in red is NO BILLING INFORMATION FOUND FOR THIS ENCOUTNER The patients correct insurance must be obtained and registered in [facility] or their referral can not be processed. Is this a retro request? NO. If yes for what date of service do you need the retro referral? N/A Who is calling to request this referral? The Patient If the caller is not the patient, what is their name? N/A Ask the patient WHO referred them to this specialty: Patient saw Allyn Vidales at [facility] for the problem and was told if symptoms did not resolve or worsen they would refer them to this specialty FIRST and LAST NAME of SPECIALIST PATIENT is seeing: Dr. Riaz Ogden What specialty is this? Vascular DIAGNOSIS Patient is being seen for (Not a body part or a procedure): Deep Vericos Veins. Have you seen this SPECIALIST for this PROBLEM/DX before?NO If YES, when: Have you checked REVIEW or the APPT DESK to see if this referral has already been done or has visits left? NO Is this visit:Initial Visit Address of Specialist: [address] [place] [address], [address] , [place] [address] Phone # of Specialist: [phone] Fax #: (if applicable): [phone] Does patient have an appointment scheduled?: NO Date of appointment- (including a retro-request): Is this appointment related to: Not MVA, WC or Surgery related documented in this encounter Plan of Treatment Not on file documented as of this encounter Visit Diagnoses Not on filedocumented in this encounter Care Teams Warp Tier Relationship Specialty Start Date End Date Teressa Solis DO PCP - General Internal Medicine 12/18/13 09/15/20 Mina Pretty DO PCP - General Internal Medicine 09/16/20 Shweta Boucher MD PCP - General Internal Medicine 01/12/21 10/10/21 Ora Ronquillo MD [address] [place] [address] PCP - General Internal Medicine 10/11/21 Jl Mendez MD [address] [place] [address] Dr [address] [place] [address] Specialist Cardiovascular Disease 10/13/21 Jannette Boudreaux MD [address] [address] Surgeon Neurosurgery 04/07/22 Tenisha Mendieta PA-C [address] [address] Specialist Neurosurgery 04/07/22 Julio Monk PA-C [address] [address] Specialist Neurosurgery 04/07/22 Luis Armando Eller MD [address] [address] Specialist ORTHOPEDIC SURGERY 10/01/23 Jayesh Pineda MD 305 [place] [address] Specialist Endocrinology 10/01/23 Kelsi Tejada MD 305 [place] [address] Specialist Allergy & Immunology 10/01/23 Pretty Le MD 175 [facility] 200 [place] [phone] Specialist Pulmonology 10/01/23 Vesta Michael PA-C 300 [facility] 210 [place] [phone] Specialist Vascular Surgery 10/01/23 [facility] 46 [place], [place] [phone] Specialist Optometry 10/01/23 documented as of this encounter
--- OUTSIDE RECORDS SUMMARY | 2024-04-22 10:11 | XMS_ITS | Encounter Summary ---
Author Organization [facility] Address [address] [place] [address] Care Team Providers Care Mixing Plant Dumper Name Role Phone Teressa Solis DO Primary Care Pro vider Unavailable Mina Pretty DO Primary Care Provider Shweta Cronin MD Primary Care Provider Ora Diaz MD Primary Care Prov ider Jl Mendez MD Unavailable Jannette Boudreaux MD Unavailable [phone] Tenisha Mendieta PA-C Unavailable [phone] Julio Monk PA-C Unavailable [phone] Luis Armando Eller MD Unavailable [phone] Jayesh Pineda MD Unavailable Kelsi Tejada MD Unavailable Unavailable Pretty Le MD Unavailable Vesta Michael PA-C Unavailable [phone] [facility] Unavailable [phone] Encounter Details Date Type Department Care Team Description 12/31/2018 Old Medical Records Medical Records 444 [place] [address] Abstract, Provider Social History Tobacco Use Types [...] on filedocumented in this encounter Care Teams Mixing Plant Dumper Relationship Specialty Start Date End Date Teressa Solis DO PCP - General Internal Medicine 12/18/13 09/15/20 Mina Pretty DO PCP - General Internal Medicine 09/16/20 Shweta Boucher MD PCP - General Internal Medicine 01/12/21 10/10/21 Ora Ronquillo MD [address] [place] [address] PCP - General Internal Medicine 10/11/21 Jl Mendez MD [address] [place] [address] [place] [address] Specialist Cardiovascular Disease 10/13/21 Jannette Boudreaux MD [address] [address] Surgeon Neurosurgery 04/07/22 Tenisha Mendieta PA-C [address] [address] Specialist Neurosurgery 04/07/22 Julio Monk PA-C [address] [address] Specialist Neurosurgery 04/07/22 Luis Armando Eller MD [address] [address] Specialist ORTHOPEDIC SURGERY 10/01/23 Jayesh Pineda MD 305 [place] [address] Specialist Endocrinology 10/01/23 Kelsi Tejada MD 305 [place] [address] Specialist Allergy & Immunology 10/01/23 Pretty Le MD 175 [facility] [address] [place] [address] Specialist Pulmonology 10/01/23 Vesta Michael PA-C 300 [facility] [address] [place] [address] Specialist Vascular Surgery 10/01/23 [facility] 46 [place] [address] Specialist Optometry 10/01/23 documented as of this encounter
--- OUTSIDE RECORDS SUMMARY | 2024-04-22 10:11 | XMS_ITS | Encounter Summary ---
Author Organization [facility] Address [address] [place] [address] Care Team Providers Care Machine Maintenance Technician Name Role Phone Mina Pretty DO Primary Care Provider Shweta Cronin MD Primary Care Provider Ora Diaz MD Primary Care Prov ider Jl Mendez MD Unavailable Jannette Boudreaux MD Unavailable [phone] Tenisha Mendieta PA-C Unavailable [phone] Julio Monk PA-C Unavailable Luis Armando Eller MD Unavailable [phone] Jayesh Pineda MD Unavailable Kelsi Tejada MD Unavailable Unavailable Pretty Le MD Unavailable Vesta Michael PA-C Unavailable [facility] Unavailable Reason for Visit * Reason Onset Date Comments APPOINTMENT 11/02/2020 Testing 11/02/2020 Encounter Details Date Type Department Care Team Description 11/02/2020 Telephone Vascular Surgery - [place] [address] [place] [address] Vesta Michael PA-C 300 [facility] [address] [place] [address] APPOINTMENT; Testing Social History Tobacco Use Types Packs/Day Years Used Date Smoking Tobacco: Never Smokeless Tobacco: Never Alcohol Use Standard Drinks/Week Comments No 0 (1 standard drink = 0.6 oz pur e alcohol) Education Answer Date Recorded What is the highest level of school you have completed or the highest degree you have received? 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, FILLER MACHINE OPERATOR, CHANDRAKANT) 06/14/2020 Sex Assigned at Date Recorded Female 08/03/2020 10:16 PM EDT Job Start Date Occupation Industry Not on file Not on file Not on file COVID-19 Exposure Response Date Recorded In the last month, have you been in contact with someone who was confirmed or suspected to have Coronavirus / COVID-19? Unable to assess 10/12/2020 7:41 AM EDT documented as of this encounter Miscellaneous Notes * Telephone Encounter - Day Wilkins - 11/03/2020 3:12 PM EDT New order placed. Unable to cancel order with expected jackelin of 09/30/20 due to it being attached to avisit. * Telephone Encounter - Lubna Pond - 11/03/2020 2:29 PM EDT I'm not seeing where the Provider requests the appt to be done in Dec - the order we received yesterday requested the order to be done September 2021 - please verify with Provider and let us know if it should be rescheduled Thank you!! * Telephone Encounter - Nereyda Thakur - 11/02/2020 1:48 PM EDT Kenneth, Could we get this patient scheduled please. Ty very much. (I can than r/s her f/u with us) Reason for Exam Priority: Routine Dx: Varicose veins of both lower extremities with pain [I83.813 (ICD-10-CM)]; Venous insufficiency (chronic) (peripheral) [I87.2 (ICD-10-CM)] Comments: Reason for Test: r/o Reflux Patient to have vascular testing completed prior to their scheduled follow-up visit in December 2020. This order will be faxed by the Prior Auth staff to [facility] for Scheduling. [facility] telephone number is , Fax is documented in this encounter Plan of Treatment Not on file documented as of this encounter Visit Diagnoses Not on filedocumented in this encounter Care Teams Machine Maintenance Technician Relationship Specialty Start Date End Date Mina Pretty DO PCP - General Internal Medicine 09/16/20 1 Shweta Tellez MD PCP - General Internal Medicine 01/12/21 10/10/21 Ora Ronquillo MD [address] [place] [address] PCP - General Internal Medicine 10/11/21 Jl Mendez MD [address] [place] [address] Dr Mont[address] [place] [address] Specialist Cardiovascular Disease 10/13/21 Jannette Boudreaux MD [address] [address] Surgeon Neurosurgery 04/07/22 Tenisha Mendieta PA-C [address] [address] Specialist Neurosurgery 04/07/22 Julio Monk PA-C 175 [facility] [address] [place] [address] Specialist Neurosurgery 04/07/22 Luis Armando Eller MD [address] [address] Specialist ORTHOPEDIC SURGERY 10/01/23 Jayesh Pineda MD [address] [place] [address] Specialist Endocrinology 10/01/23 Kelsi Tejada MD 305 [place] [address] Specialist Allergy & Immunology 10/01/23 Pretty Le MD 175 [facility] [address] [place] [address] Specialist Pulmonology 10/01/23 Vesta Michael PA-C 300 [facility] 210 [place] [address] Specialist Vascular Surgery 10/01/23 [facility] 46 [place], [place] [address] Specialist Optometry 10/01/23 documented as of this encounter
--- OUTSIDE RECORDS SUMMARY | 2024-04-22 10:11 | XMS_ITS | Encounter Summary ---
Author Organization [facility] Address [address] [place] [address] Care Team Providers Care Joinery Machinist Name Role Phone Teressa Solis DO Primary Care Pro vider Unavailable Mina Pretty DO Primary Care Provider Ailyn Shweta Pretty MD Primary Care Provider UnaOra Randall MD Primary Care Prov ider Jl Mendez MD Unavailable [phone] Jannette Boudreaux MD Unavailable [phone] Tenisha Mendieta PA-C Unavailable Julio Monk PA-C Unavailable [phone] Luis Armando Eller MD Unavailable [phone] Jayesh Pineda MD Unavailable Kelsi Tejada MD Unavailable Unavailable Pretty Le MD Unavailable Vesta Michael PA-C Unavailable [facility] Unavailable Reason for Visit * Reason Onset Date Comments APPOINTMENT 02/21/2019 Encounter Details Date Type Department Care Team Description 02/21/2019 Telephone Gastroenterology - [place] 175 [facility] [address] [place] [address] Irvin Ling MD 175 [facility] [address] [place], [place] [id number] APPOINTMENT Social History Tobacco Use Types Packs/Day Years [...] encounter Miscellaneous Notes * Telephone Encounter - Zeny Higuera - 02/21/2019 1:20 PM EST Patient is calling in to make an appointment for a colonoscopy. She is on our waitlist. Please callher to make the appointment. documented in this encounter Plan of Treatment Not on file documented as of this encounter Visit Diagnoses Not on filedocumented in this encounter Care Teams Joinery Machinist Relationship Specialty Start Date End Date Teressa Solis DO PCP - General Internal Medicine 12/18/13 09/15/20 Mina Pretty DO PCP - General Internal Medicine 09/16/20 1 Shweta Tellez MD PCP - General Internal Medicine 01/12/21 10/10/21 Ora Ronquillo MD [address] [place] [address] PCP - General Internal Medicine 10/11/21 Jl Mendez MD [address] [place] [address] Dr Montiel [address] [place] [address] Specialist Cardiovascular Disease 10/13/21 Jannette Boudreaux MD [address] [address] Surgeon Neurosurgery 04/07/22 Tenisha Mendieta PA-C [address] [address] Specialist Neurosurgery 04/07/22 Julio Monk PA-C [address] [address] Specialist Neurosurgery 04/07/22 Luis Armando Eller MD 175 [facility] 250 [place] [address] Specialist ORTHOPEDIC SURGERY 10/01/23 Jayesh Pineda MD 305 [place] [address] Specialist Endocrinology 10/01/23 Kelsi Tejada MD 305 [place] [address] Specialist Allergy & Immunology 10/01/23 Pretty Le MD 175 [facility] 200 [place] [phone] Specialist Pulmonology 10/01/23 Vesta Michael PA-C 300 [facility] 210 [place] [phone] Specialist Vascular Surgery 10/01/23 [facility] 46 [place] [address] Specialist Optometry 10/01/23 documented as of this encounter
--- OUTSIDE RECORDS SUMMARY | 2024-04-22 10:11 | XMS_ITS | Encounter Summary ---
Author Organization [facility] Address [address] [place] [address] Care Team Providers Care Briefcase Sewer Name Role Phone Ora Ronquillo MD Primary Care Prov ider Jl Mendez MD Unavailable Jannette Boudreaux MD Unavailable [phone] Tenisha Mendieta PA-C Unavailable Julio MonkC Unavailable [phone] Luis Armando Eller MD Unavailable [phone] Jayesh Pineda MD Unavailable Kelsi Tejada MD Unavailable Unavailable Pretty Le MD Unavailable Vesta Michael PA-C Unavailable [phone] [facility] Unavailable [phone] Encounter Details Date Type Department Care Team Description 11/14/2022 Director Of Sales Marketing Report Medical Records [address] [place] [address] Jensen Nam MD Social History Tobacco Use Types Packs/Day Years Used Date Smoking Tobacco: Never Smokeless Tobacco: Never Alcohol Use Standard Drinks/Week Comments No 0 (1 standard drink = 0.6 oz pur e alcohol) Education Answer Date Recorded What is the highest level of school you have completed or the highest degree you have received? 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, ANODIZE MACHINE OPERATOR, CHANDRAKANT) 06/14/2020 Sex Assigned at Date Recorded Female 08/03/2020 10:16 PM EDT Job Start Date Occupation Industry Not on file Not on file Not on file COVID-19 Exposure Response Date Recorded In the last 10 days, have yo u been in contact with someone who was confirmed or suspected to have Coronavirus/COVID-19? No / Unsure 11/06/2022 3:03 PM EDT documented as of this encounter Plan of Treatment Not on file documented as of this encounter Visit Diagnoses Not on filedocumented in this encounter Care Teams Briefcase Sewer Relationship Specialty Start Date End Date Ora Ronquillo MD [address] [place] [address] PCP - General Internal Medicine 10/11/21 Jl Mendez MD [address] [place] [address] Dr Montiel [address] [place] [address] Specialist Cardiovascular Disease 10/13/21 Jannette Boudreaux MD 175 [facility] 300 [place] [address] Surgeon Neurosurgery 04/07/22 Tenisha Mendieta PA-C [address] [address] Specialist Neurosurgery 04/07/22 Julio Monk PA-C 175 [facility] 300 [place] [address] Specialist Neurosurgery 04/07/22 Luis Armando Eller MD [address] [address] Specialist ORTHOPEDIC SURGERY 10/01/23 Jayesh Pineda MD 305 [place] [address] Specialist Endocrinology 10/01/23 Kelsi Tejada MD 305 [place] [address] Specialist Allergy & Immunology 10/01/23 Pretty Le MD 175 [facility] 200 [place] [address] Specialist Pulmonology 10/01/23 Vesta Michael PA-C 300 [facility] 210 [place] [address] Specialist Vascular Surgery 10/01/23 [facility] 46 [place] [address] Specialist Optometry 10/01/23 documented as of this encounter
--- OUTSIDE RECORDS SUMMARY | 2024-04-22 10:11 | XMS_ITS | Encounter Summary ---
Author Organization [facility] Address [address] [place] [address] Care Team Providers Care Supervisor Electrolytic Tinning Name Role Phone Ora Ronquillo MD Primary Care Prov ider Jl Mendez MD Unavailable [phone] Jannette Boudreaux MD Unavailable [phone] Tenisha Mendieta PA-C Unavailable Julio Monk PA-C Unavailable [phone] Luis Armando Eller MD Unavailable [phone] Jayesh Pineda MD Unavailable Kelsi Tejada MD Unavailable Unavailable Pretty Le MD Unavailable Vesta Michael PA-C Unavailable [facility] Unavailable Encounter Details Date Type Department Care Team Description 01/08/2023 Telephone [facility] 175 [facility] [address] [place] [address] Lorie [place], DONN 1515 [facility] [place] [address] Social History Tobacco Use Types Packs/Day Years Used Date Smoking Tobacco: Never Smokeless Tobacco: Never Alcohol Use Standard Drinks/Week Comments No 0 (1 standard drink = 0.6 oz pur e alcohol) Education Answer Date Recorded What is the highest level of school you have completed or the highest degree you have received? 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, SCIENTIFIC SPECIALIST, CHANDRAKANT) 06/14/2020 Sex Assigned at Date Recorded Female 08/03/2020 10:16 PM EDT Job Start Date Occupation Industry Not on file Not on file Not on file COVID-19 Exposure Response Date Recorded In the last 10 days, have yo u been in contact with someone who was confirmed or suspected to have Coronavirus/COVID-19? No / Unsure 01/08/2023 8:54 AM EDT documented as of this encounter Miscellaneous Notes * Telephone Encounter - Jane Jerome - 01/08/2023 3:12 PM EDT [employer] called stating the Euflexxa will need to be submitted asa buy and bill. A detailed letterwill faxed over to office documented in this encounter Plan of Treatment Not on file documented as of this encounter Visit Diagnoses Not on filedocumented in this encounter Care Teams Supervisor Electrolytic Tinning Relationship Specialty Start Date End Date Ora Ronquillo MD [address] [place] [address] PCP - General Internal Medicine 10/11/21 Jl Mendez MD [address] [place] [address] Dr Montiel [address] [place] [address] Specialist Cardiovascular Disease 10/13/21 Jannette Boudreaux MD [address] [address] Surgeon Neurosurgery 04/07/22 Tenisha Mendieta PA-C [address] [address] Specialist Neurosurgery 04/07/22 Julio Monk PA-C [address] [address] Specialist Neurosurgery 04/07/22 Luis Armando Eller MD 175 [facility] [address] [place] [address] Specialist ORTHOPEDIC SURGERY 10/01/23 Jayesh Pineda MD 305 [place] [address] Specialist Endocrinology 10/01/23 Kelsi Tejada MD 305 [place] [address] Specialist Allergy & Immunology 10/01/23 Pretty Le MD 175 [facility] [address] [place] [phone] Specialist Pulmonology 10/01/23 Vesta Michael PA-C 300 [facility] [address] [place] [address] Specialist Vascular Surgery 10/01/23 [facility] 46 [place] [address] Specialist Optometry 10/01/23 documented as of this encounter
--- OUTSIDE RECORDS SUMMARY | 2024-04-22 10:11 | XMS_ITS | Encounter Summary ---
Author Organization [facility] Address [address] [place] [address] Care Team Providers Care Oracle R12 Developer Name Role Phone Ora Ronquillo MD Primary Care Prov ider Jl Mendez MD Unavailable [phone] Jannette Boudreaux MD Unavailable [phone] Tenisha Mendieta PA-C Unavailable [phone] Julio Monk PA-C Unavailable [phone] Luis Armando Eller MD Unavailable [phone] Jayesh Pineda MD Unavailable Kelsi Tejada MD Unavailable Unavailable Pretty Le MD Unavailable Vesta Michael PA-C Unavailable [phone] [facility] Unavailable Encounter Details Date Type Department Care Team Description 01/09/2023 SCAN [facility] Medical [facility] - [facility] 175 [facility] [address] [place] [phone] Lorie [place], DONN 1515 [facility] [place] [address] Social History Tobacco Use Types Packs/Day Years Used Date Smoking Tobacco: Never Smokeless Tobacco: Never Alcohol Use Standard Drinks/Week Comments No 0 (1 standard drink = 0.6 oz pur e alcohol) Education Answer Date Recorded What is the highest level of school you have completed or the highest degree you have received? 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, MOCK UP ASSEMBLER, CHANDRAKANT) 06/14/2020 Sex Assigned at Date Recorded Female 08/03/2020 10:16 PM EDT Job Start Date Occupation Industry Not on file Not on file Not on file COVID-19 Exposure Response Date Recorded In the last 10 days, have yo u been in contact with someone who was confirmed or suspected to have Coronavirus/COVID-19? No / Unsure 01/12/2023 8:01 AM EDT documented as of this encounter Plan of Treatment Not on file documented as of this encounter Visit Diagnoses Not on filedocumented in this encounter Care Teams Oracle R12 Developer Relationship Specialty Start Date End Date Ora Ronquillo MD 444 [place] [address] PCP - General Internal Medicine 10/11/21 Jl Mendez MD [address] [place] [address] Dr Montiel [address] [place] [address] Specialist Cardiovascular Disease 10/13/21 Jannette Boudreaux MD [address] [address] Surgeon Neurosurgery 04/07/22 Tenisha Mendieta PA-C [address] [address] Specialist Neurosurgery 04/07/22 Julio Monk PA-C 175 [facility] [address] [place] [address] Specialist Neurosurgery 04/07/22 Luis Armando Eller MD [address] [address] Specialist ORTHOPEDIC SURGERY 10/01/23 Jayesh Pineda MD 305 [place] [address] Specialist Endocrinology 10/01/23 Kelsi Tejada MD 305 [place] [address] Specialist Allergy & Immunology 10/01/23 Pretty Le MD 175 [facility] [address] [place] [address] Specialist Pulmonology 10/01/23 Vesta Michael PA-C 300 [facility] 210 [place] [address] Specialist Vascular Surgery 10/01/23 [facility] 46 [place], [place] [address] Specialist Optometry 10/01/23 documented as of this encounter
--- OUTSIDE RECORDS SUMMARY | 2024-04-22 10:11 | XMS_ITS | Encounter Summary ---
Author Organization [facility] Address [address] [place] [address] Care Team Providers Care Registered Client Associate Name Role Phone Teressa Solis DO Primary Care Pro vider Unavailable Mina Pretty DO Primary Care Provider Shweta Cronin MD Primary Care Provider Ora Diaz MD Primary Care Prov ider Jl Mendez MD Unavailable Jannette Boudreaux MD Unavailable [phone] Tenisha Mendieta PA-C Unavailable [phone] Julio Monk PA-C Unavailable Luis Armando Eller MD Unavailable [phone] Jayesh Pineda MD Unavailable Kelsi Tejada MD Unavailable Unavailable Pretty Le MD Unavailable Vesta Michael PA-C Unavailable [facility] Unavailable [phone] Reason for Visit * Reason Onset Date Comments allergy injection 01/20/2019 Encounter Details Date Type Department Care Team Description 01/20/2019 Telephone Allergy [facility] 98 [address] [place] [address] Kelsi Tejada MD allergy injection Social History Tobacco Use Types Packs/Day Years [...] encounter Miscellaneous Notes * Telephone Encounter - Nola Campbell R.N. - 01/21/2019 7:44 AM EST Past the process of benefit investigation. PA in progress at this time. * Telephone Encounter - Earnestine Martinez - 01/20/2019 4:51 PM EST Benefit investigation has been completed, would like to know if fax was recevied with documention, # [phone] documented in this encounter Plan of Treatment Not on file documented as of this encounter Visit Diagnoses Not on filedocumented in this encounter Care Teams Registered Client Associate Relationship Specialty Start Date End Date Teressa Solis, PCP - General Internal Medicine 12/18/13 09/15/20 Mina Pretty DO PCP - General Internal Medicine 09/16/20 Shweta Boucher MD PCP - General Internal Medicine 01/12/21 10/10/21 Ora Ronquillo MD [address] [place] [address] PCP - General Internal Medicine 10/11/21 Jl Mendez MD [address] [place] [address] [place] [address] Specialist Cardiovascular Disease 10/13/21 Jannette Boudreaux MD [address] [address] Surgeon Neurosurgery 04/07/22 Tenisha Mendieta PA-C [address] [address] Specialist Neurosurgery 04/07/22 Julio Monk PA-C 175 [facility] 300 [place] [address] Specialist Neurosurgery 04/07/22 Luis Armando Eller MD 175 [facility] 250 [place] [address] Specialist ORTHOPEDIC SURGERY 10/01/23 Jayesh Pineda MD 305 [place] [address] Specialist Endocrinology 10/01/23 Kelsi Tejada MD 305 [place] [address] Specialist Allergy & Immunology 10/01/23 Pretty Le MD 175 [facility] [address] [place] [phone] Specialist Pulmonology 10/01/23 Vesta Michael PA-C 300 [facility] 210 [place] [address] Specialist Vascular Surgery 10/01/23 [facility] 46 [place] [address] Specialist Optometry 10/01/23 documented as of this encounter
--- OUTSIDE RECORDS SUMMARY | 2024-04-22 10:11 | XMS_ITS | Encounter Summary ---
Author Organization [facility] Address [address] [place] [address] Care Team Providers Care Supervisor Hand Workers Name Role Phone Ora Ronquillo MD Primary Care Prov ider Jl Mendez MD Unavailable Jannette Boudreaux MD Unavailable [phone] Tenisha Mendieta PA-C Unavailable Julio Monk PA-C Unavailable Luis Armando Eller MD Unavailable [phone] Jayesh Pineda MD Unavailable Kelsi Tejada MD Unavailable Unavailable Pretty Le MD Unavailable Vesta Michael PA-C Unavailable [facility] Unavailable Encounter Details Date Type Department Care Team Description 01/10/2023 SCAN [facility] Medical [facility] - [facility] 175 [facility] [address] [place] [address] Lorie [place], DONN 1515 [facility] [place] [address] Social History Tobacco Use Types Packs/Day Years Used Date Smoking Tobacco: Never Smokeless Tobacco: Never Alcohol Use Standard Drinks/Week Comments No 0 (1 standard drink = 0.6 oz pur e alcohol) Education Answer Date Recorded What is the highest level of school you have completed or the highest degree you have received? 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, CUPOLA MELTING SUPERVISOR, CHANDRAKANT) 06/14/2020 Sex Assigned at Date Recorded [...] filedocumented in this encounter Care Teams Supervisor Hand Workers Relationship Specialty Start Date End Date Ora Ronquillo MD 444 [place] [address] PCP - General Internal Medicine 10/11/21 Jl Mendez MD [address] [place] [address] Dr Mont[address] [place] [address] Specialist Cardiovascular Disease 10/13/21 Jannette Boudreaux MD [address] [address] Surgeon Neurosurgery 04/07/22 Tenisha Mendieta PA-C [address] [address] Specialist Neurosurgery 04/07/22 Julio Monk PA-C 175 [facility] [address] [place] [address] Specialist Neurosurgery 04/07/22 Luis Armando Eller MD [address] [address] Specialist ORTHOPEDIC SURGERY 10/01/23 Jayesh Pineda MD 305 [place] [address] Specialist Endocrinology 10/01/23 Kelsi Tejada MD 305 [place] [address] Specialist Allergy & Immunology 10/01/23 Pretty Le MD 175 [facility] [address] [place] [address] Specialist Pulmonology 10/01/23 Vesta Michael PA-C 300 [facility] 210 [place] [address] Specialist Vascular Surgery 10/01/23 [facility] 46 [place], [place] [address] Specialist Optometry 10/01/23 documented as of this encounter
--- OUTSIDE RECORDS SUMMARY | 2024-04-22 10:11 | XMS_ITS | Encounter Summary ---
Author Organization [facility] Address [address] [place] [address] Care Team Providers Care Ampoule Washing Machine Operator Name Role Phone Ora Sweeney MD Primary Care Prov ider Reason for Visit * Reason Comments Blood Sugar Problem Encounter Details Date Type Department Care Team ([facility] st Contact Info) Description 04/11/2024 9:45 AM EST Office Visit Endocrinology - [address] [phone] Jayesh Pineda MD 7 [place] [address] Type 2 diabetes mellitus with other specified complication, without long-term current use of insulin (CMS/HCC) (Primary Dx); Hyperparathyroidism (CMS/[facility]); Hypothyroidism, unspecified type Social History Tobacco Use [...] your loved ones. For example, child support agent or elderly care for an older adult? [...] cancer Mother 31.00 Coronary artery disease Father [place] age 68, HTN, Diabetes, cataract, glaucoma Ovarian [...] tablet Take 1 tablet by mouth daily. oddwmlgfwny-kjvikgzuaucc-ceyfxhnlie (Trelegy Ellipta) 100-62.5-25 mcg inhaler Inhale 1 [...] UNABLE TO FIND Inhale into the lungs. [facility]-supplies only venlafaxine XR (EFFEXOR-XR) 37.5 mg 24 [...] TSH No results found for: FT4 IMAGING: @[facility]@ IMPRESSION: 1. Type 2 diabetes mellitus with other specified complication, without long-term current use of insulin ([facility]) 2. Hyperparathyroidism ([facility]) 3. Hypothyroidism, unspecified type PLAN: DM type [...] 9:45 AM EDT Office Visit Adult Medicine [address] [phone] Ora Sweeney MD [address] [place] [address] 06/04/2024 10:30 AM EDT Consult Bariatric Surgery - [place] [address] [phone] Lita Verde PA [address] [address] 06/04/2024 11:45 AM EDT Office Visit Orthopedic Surgery [facility] [address] [phone] Luis Armando Eller MD [address] [address] 06/05/2024 9:45 AM EDT Office Visit Orthopedic Surgery [facility] [address] [phone] Duke Dunn DPJohan [address] [address] 06/06/2024 2:30 PM EDT Office Visit Obstetrics and Gynecology - [address] [address] Stacie Martinez, [facility] 444 [place] [address] 06/30/2024 10:30 AM EDT Office Visit Orthopedic Surgery [facility] [address] [phone] Luis Armando Eller MD [address] [address] 07/02/2024 9:30 AM EDT Office Visit Orthopedic Surgery - [place] [address] [phone] Lorie [place] NP [address] [address] 07/09/2024 9:30 AM EDT Office Visit Endocrinology - [address] [place] [address] Jayesh Pineda MD 725 [place] [address] 09/22/2024 8:45 AM EDT Office Visit Pulmonolgy - [place] [address] [address] Pretty Le MD [address] [address] documented as of this encounter Visit Diagnoses Diagnosis Type 2 diabetes mellitus with other specified complication, without long-term current use of insulin (CMS/HCC)- Primary Hyperparathyroidism (CMS/HCC) Hyperparathyroidism, unspecified Hypothyroidism, unspecified type documented in this encounter Care Teams Ampoule Washing Machine Operator Relationship Specialty Start Date End Date Ora Sweeney MD 4 [place] [address] PCP - General Internal Medicine 01/09/24 documented as of this encounter
--- OUTSIDE RECORDS SUMMARY | 2024-04-22 10:11 | XMS_ITS | Encounter Summary ---
Author Organization [facility] Address [address] [place] [address] Care Team Providers Care Route Rider Name Role Phone Ora Ronquillo MD Primary Care Prov ider Jl Mendez MD Unavailable [phone] Jannette Boudreaux MD Unavailable [phone] Tenisha Mendieta PA-C Unavailable Julio Monk PA-C Unavailable Luis Armando Eller MD Unavailable [phone] Jayesh Pineda MD Unavailable Kelsi Tejada MD Unavailable Unavailable Pretty Le MD Unavailable Vesta Michael PA-C Unavailable [phone] [facility] Unavailable Encounter Details Date Type Department Care Team Description 01/08/2023 SCAN [facility] Medical [facility] - Orthopedic Care Center 175 [facility] [address] [place] [address] Lorie [place], DONN 1515 [facility] [place] [address] Social History Tobacco Use Types Packs/Day Years Used Date Smoking Tobacco: Never Smokeless Tobacco: Never Alcohol Use Standard Drinks/Week Comments No 0 (1 standard drink = 0.6 oz pur e alcohol) Education Answer Date Recorded What is the highest level of school you have completed or the highest degree you have received? 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, MAILROOM ASSOCIATE, CHANDRAKANT) 06/14/2020 Sex Assigned at Date Recorded [...] on filedocumented in this encounter Care Teams Route Rider Relationship Specialty Start Date End Date Ora Ronquillo MD 444 [place] [address] PCP - General Internal Medicine 10/11/21 Jl Mendez MD [address] [place] [address] Dr Montiel [address] [place] [address] Specialist Cardiovascular Disease 10/13/21 Jannette Boudreaux MD [address] [address] Surgeon Neurosurgery 04/07/22 Tenisha Mendieta PA-C [address] [address] Specialist Neurosurgery 04/07/22 Julio Monk PA-C 175 [facility] [address] [place] [address] Specialist Neurosurgery 04/07/22 Luis Armando Eller MD [address] [address] Specialist ORTHOPEDIC SURGERY 10/01/23 Jayesh Pineda MD 305 [place] [address] Specialist Endocrinology 10/01/23 Kelsi Tejada MD 305 [place] [address] Specialist Allergy & Immunology 10/01/23 Pretty Le MD 175 [facility] [address] [place] [address] Specialist Pulmonology 10/01/23 Vesta Michael PA-C 300 [facility] 210 [place] [address] Specialist Vascular Surgery 10/01/23 [facility] 46 [place], [place] [phone] Specialist Optometry 10/01/23 documented as of this encounter
--- OUTSIDE RECORDS SUMMARY | 2024-04-22 10:11 | XMS_ITS | Encounter Summary ---
Author Organization [facility] Address [address] [place] [address] Care Team Providers Care Desktop Operator Name Role Phone Mina Pretty DO Primary Care Provider Shweta Cronin MD Primary Care Provider Ora Diaz MD Primary Care Prov ider Jl Mendez MD Unavailable Jannette Boudreaux MD Unavailable [phone] Tenisha Mendieta PA-C Unavailable Julio Monk PA-C Unavailable Luis Armando Eller MD Unavailable [phone] Jayesh Pineda MD Unavailable Kelsi Tejada MD Unavailable Unavailable Pretty Le MD Unavailable Vesta Michael PA-C Unavailable [facility] Unavailable [phone] Reason for Visit * Reason Onset Date Comments APPOINTMENT 12/24/2020 pt needs to jasmina se a new pcp and schedule med fu appt for further refills Encounter Details Date Type Department Care Team Description 12/24/2020 [facility] [address] [id number] Mina Pretty DO APPOINTMENT (pt needs to choose a new pcp and schedule med fu appt for further refills) Social History Tobacco Use Types Packs/Day Years Used Date Smoking Tobacco: Never Smokeless Tobacco: Never Alcohol Use Standard Drinks/Week Comments No 0 (1 standard drink = 0.6 oz pur e alcohol) Education Answer Date Recorded What is the highest level of school you have completed or the highest degree you have received? 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, RISK MANAGEMENT DIRECTOR, CHANDRAKANT) 06/14/2020 Sex Assigned at Date Recorded Female 08/03/2020 10:16 PM EDT Job Start Date Occupation Industry Not on file Not on file Not on file COVID-19 Exposure Response Date Recorded In the last month, have you been in contact with someone who was confirmed or suspected to have Coronavirus / COVID-19? No / Unsure 12/15/2020 8:42 AM EDT documented as of this encounter Plan of Treatment Not on file documented as of this encounter Visit Diagnoses Not on filedocumented in this encounter Care Teams Desktop Operator Relationship Specialty Start Date End Date Mina Pretty DO PCP - General Internal Medicine 09/16/20 1 Shweta Tellez MD PCP - General Internal Medicine 01/12/21 10/10/21 Ora Ronquillo MD [address] [place] [address] PCP - General Internal Medicine 10/11/21 Jl Mendez MD [address] [place] [address] Dr Montiel [address] [place] [address] Specialist Cardiovascular Disease 10/13/21 Jannette Boudreaux MD [address] [address] Surgeon Neurosurgery 04/07/22 Tenisha Mendieta PA-C [address] [address] Specialist Neurosurgery 04/07/22 Julio Monk PA-C [address] [address] Specialist Neurosurgery 04/07/22 Luis Armando Eller MD 175 [facility] [address] [place] [address] Specialist ORTHOPEDIC SURGERY 10/01/23 Jayesh Pineda MD [address] [place] [address] Specialist Endocrinology 10/01/23 Kelsi Tejada MD 305 [place] [address] Specialist Allergy & Immunology 10/01/23 Pretty Le MD 175 [facility] [address] [place] [address] Specialist Pulmonology 10/01/23 Vesta Michael PA-C 300 [facility] [address] [place] [address] Specialist Vascular Surgery 10/01/23 [facility] [address] [place] [address] Specialist Optometry 10/01/23 documented as of this encounter
--- OUTSIDE RECORDS SUMMARY | 2024-04-22 10:11 | XMS_ITS | Encounter Summary ---
Author Organization [facility] Address [address] [place] [address] Care Team Providers Care Maintenance Instructor Name Role Phone Teressa Solis DO Primary Care Pro vider Unavailable Mina Pretty DO Primary Care Provider Shweta Cronin MD Primary Care Provider Ora Diaz MD Primary Care Prov ider Jl Mendez MD Unavailable Jannette Boudreaux MD Unavailable [phone] Tenisha Mendieta PA-C Unavailable [phone] Julio Monk PA-C Unavailable [phone] Luis Armando Eller MD Unavailable [phone] Jayesh Pineda MD Unavailable Kelsi Tejada MD Unavailable Unavailable Pretty Le MD Unavailable Vesta Michael PA-C Unavailable [phone] [facility] Unavailable Reason for Visit * Reason Comments E-prescribe Rx Request Encounter Details Date Type Department Care Team Description 08/17/2018 [facility] Adult [facility] [address] [id number] Teressa Solis DO E-prescribe Rx Request Social [...] encounter Miscellaneous Notes * Telephone Encounter - Yesenia Acosta M.A. - 08/19/2018 10:20 AM EDT Lab Results Component Value Date TSH 0.38 06/07/2018 * Telephone Encounter - Lynn Bowman - 08/19/2018 10:18 AM EDT Patient would like script to be: E-PRESCRIBED/FAXED TO PHARMACY WHEN WAS THE PATIENT'S LAST APPOINTMENT IN ADULT MEDICINE? [id number] WHEN WAS THE LAST TIME THE PATIENT SAW THEIR PCP? Same as above Does patient have an upcoming appointment? Yes [id number] (THE MEDICATION REQUESTED IS ON THE MED LIST ABOVE) All of the medications requested were on the CURRENT MEDS list Did you check the Pharmacy information above?: YES Patient wants: 30 -day supply Is this a mail order prescription request ? NO If the refill is from a FAXED refill request what is the RX # listed on the fax? N/A Patients current insurance carrier is: Payor: [employer] FFS / Plan: [employer] / Product Type: MEDICAID RISK documented in this encounter Plan of Treatment Not on file documented as of this encounter Visit Diagnoses Not on filedocumented in this encounter Care Teams Maintenance Instructor Relationship Specialty Start Date End Date Teressa Solis DO PCP - General Internal Medicine 12/18/13 09/15/20 Mina Pretty DO PCP - General Internal Medicine 09/16/20 Shweta Boucher MD PCP - General Internal Medicine 01/12/21 10/10/21 Ora Ronquillo MD [address] [place] [address] PCP - General Internal Medicine 10/11/21 Jl Mendez MD [address] [place] [address] Dr Mont[address] [place] [address] Specialist Cardiovascular Disease 10/13/21 Jannette Boudreaux MD [address] [address] Surgeon Neurosurgery 04/07/22 Tenisha Mendieta PA-C 175 [facility] 300 [place] [address] Specialist Neurosurgery 04/07/22 Julio Monk PA-C 175 [facility] 300 [place] [address] Specialist Neurosurgery 04/07/22 Luis Armando Eller MD 175 [facility] 250 [place] [address] Specialist ORTHOPEDIC SURGERY 10/01/23 Jayesh Pineda MD 305 [place] [address] Specialist Endocrinology 10/01/23 Kelsi Tejada MD 305 [place] [address] Specialist Allergy & Immunology 10/01/23 Pretty Le MD 175 [facility] 200 [place] [address] Specialist Pulmonology 10/01/23 Vesta Michael PA-C [address] [address] Specialist Vascular Surgery 10/01/23 [facility] 46 [place] [address] Specialist Optometry 10/01/23 documented as of this encounter
--- OUTSIDE RECORDS SUMMARY | 2024-04-22 10:11 | XMS_ITS | Encounter Summary ---
Author Organization [facility] Address [address] [place] [address] Care Team Providers Care Shipper And Receiving Name Role Phone Teressa Solis DO Primary Care Pro vider Unavailable Mina Pretty DO Primary Care Provider Ailyn Shweta Pretty MD Primary Care Provider UnaOra Randall MD Primary Care Prov ider Jl Mendez MD Unavailable [phone] Jannette Boudreaux MD Unavailable [phone] Tenisha Mendieta PA-C Unavailable Julio Monk PA-C Unavailable Luis Armando Eller MD Unavailable [phone] Jayesh Pineda MD Unavailable Kelsi Tejada MD Unavailable Unavailable Pretty Le MD Unavailable Vesta Michael PA-C Unavailable [phone] [facility] Unavailable [phone] Encounter Details Date Type Department Care Team Description 10/07/2018 [facility] Adult [address] [address] Deborah Addison PA-C Social History Tobacco Use Types Packs/Day [...] Telephone Encounter - Yesenia Acosta M.A. - 10/07/2018 10:42 AM EDT Last office visit 09/02/18 Next office visit 12/13/18 * Telephone Encounter - Yesenia Acosta M.A. - 10/07/2018 10:42 AM EDTFrom: Ana Luisa House To: Deborah Addison PA-C Sent: 10/07/2018 10:39 AM EDT Subject: Medication Renewal Request Original authorizing provider: VIVIAN Noe would like a refill of the following medications: cetirizine (ZYRTEC) 10 MG tablet [Deborah Addison PA-C] omeprazole (PRILOSEC) 20 MG capsule [Deborah Addison PA-C] Preferred pharmacy: [facility] [id number] [place] [address] DUANE ONOFER AT [facility] Comment: Medication renewals requested in this message routed to other providers: atorvastatin (LIPITOR) 20 MG tablet [Teressa Fifikowiak-Colasacco, DO] Cholecalciferol (VITAMIN D3) 1000 UNITS Cap [Teressa Krakowiak-Colasacco, DO] meloxicam (MOBIC) 15 MG tablet [Teressa Krakowiak-Colasacco, DO] levothyroxine 125 MCG tablet [Teressa Krakowiak-Colasacco, DO] montelukast (SINGULAIR) 10 MG tablet [Teressa Krakowiak-Colasacco, DO] losartan (COZAAR) 50 MG tablet [Teressa Krakowiak-Colasacco, DO] documented in this encounter Plan of Treatment Not on file documented as of this encounter Visit Diagnoses Not on filedocumented in this encounter Care Teams Shipper And Receiving Relationship Specialty Start Date End Date Teressa Solis DO PCP - General Internal Medicine 12/18/13 09/15/20 Mnia Pretty DO PCP - General Internal Medicine 09/16/20 Shweta Boucher MD PCP - General Internal Medicine 01/12/21 10/10/21 Ora Ronquillo MD [address] [place] [address] PCP - General Internal Medicine 10/11/21 Jl Mendez MD [address] [place] [address] Dr Montiel [address] [place] [address] Specialist Cardiovascular Disease 10/13/21 Jannette Boudreaux MD [address] [address] Surgeon Neurosurgery 04/07/22 Tenisha Mendieta PA-C [address] [address] Specialist Neurosurgery 04/07/22 Julio Monk PA-C [address] [address] Specialist Neurosurgery 04/07/22 Luis Armando Eller MD [address] [address] Specialist ORTHOPEDIC SURGERY 10/01/23 Jayesh Pineda MD 305 [place] [address] Specialist Endocrinology 10/01/23 Kelsi Tejada MD 305 [place] [address] Specialist Allergy & Immunology 10/01/23 Pretty Le MD 175 [facility] 200 [place] [address] Specialist Pulmonology 10/01/23 Vesta Michael PA-C 300 [facility] 210 [place] [address] Specialist Vascular Surgery 10/01/23 [facility] [address] [place] [address] Specialist Optometry 10/01/23 documented as of this encounter
--- OUTSIDE RECORDS SUMMARY | 2024-04-22 10:12 | XMS_ITS | Encounter Summary ---
Author Organization [facility] Address [address] [place] [address] Care Team Providers Care Rehabilitation Clerk Name Role Phone Teressa Solis DO Primary Care Pro vider Unavailable Mina Pretty DO Primary Care Provider Shweta Cronin MD Primary Care Provider Ora Diaz MD Primary Care Prov ider Jl Mendez MD Unavailable Jannette Boudreaux MD Unavailable [phone] Tenisha Mendieta PA-C Unavailable Julio Monk PA-C Unavailable Luis Armando Eller MD Unavailable [phone] Jayesh Pineda MD Unavailable Kelsi Tejada MD Unavailable Unavailable Pretty Le MD Unavailable Vesta Michael PA-C Unavailable [phone] [facility] Unavailable Encounter Details Date Type Department Care Team Description 03/13/2019 Telephone Allergy [place] [address] [place] [address] Kelsi Tejada MD Social History Tobacco Use [...] on filedocumented in this encounter Care Teams Rehabilitation Clerk Relationship Specialty Start Date End Date Teressa Solis DO PCP - General Internal Medicine 12/18/13 09/15/20 Mina Pretty DO PCP - General Internal Medicine 09/16/20 Shweta Boucher MD PCP - General Internal Medicine 01/12/21 10/10/21 Ora Ronquillo MD [address] [place] [address] PCP - General Internal Medicine 10/11/21 Jl Mendez MD [address] [place] [address] Dr Mont[address] [place] [address] Specialist Cardiovascular Disease 10/13/21 Jannette Boudreaux MD [address] [address] Surgeon Neurosurgery 04/07/22 Tenisha Mendieta PA-C [address] [address] Specialist Neurosurgery 04/07/22 Julio Monk PA-C [address] [address] Specialist Neurosurgery 04/07/22 Luis Armando Eller MD [address] [address] Specialist ORTHOPEDIC SURGERY 10/01/23 Jayehs Pineda MD 305 [place] [address] Specialist Endocrinology 10/01/23 Kelsi Tejada MD 305 [place] [address] Specialist Allergy & Immunology 10/01/23 Pretty Le MD 175 [facility] [address] [place] [address] Specialist Pulmonology 10/01/23 Vesta Michael PA-C 300 [facility] 210 [place] [address] Specialist Vascular Surgery 10/01/23 [facility] [address] [place] [address] Specialist Optometry 10/01/23 documented as of this encounter
--- OUTSIDE RECORDS SUMMARY | 2024-04-22 10:12 | XMS_ITS | Encounter Summary ---
Author Organization [facility] Address [address] [place] [address] Care Team Providers Care Family And Consumer Sciences Professor Name Role Phone Teressa Solis DO Primary Care Pro vider Unavailable Mina Pretty DO Primary Care Provider Shweta Cronin MD Primary Care Provider Ora Diaz MD Primary Care Prov ider Jl Mendez MD Unavailable [phone] Jannette Boudreaux MD Unavailable [phone] Tenisha Mendieta PA-C Unavailable Julio Monk PA-C Unavailable Luis Armando Eller MD Unavailable [phone] Jayesh Pineda MD Unavailable Kelsi Tejada MD Unavailable Unavailable Pretty Le MD Unavailable Vesta Michael PA-C Unavailable [facility] Unavailable Encounter Details Date Type Department Care Team Description 01/26/2014 Circle Cutting Saw Operator Report Medical Records [address] [place] [address] Maureen Foster [address] [place] [address] Social History Tobacco Use Types Packs/Day Years [...] on filedocumented in this encounter Care Teams Family And Consumer Sciences Professor Relationship Specialty Start Date End Date Teressa Solis DO PCP - General Internal Medicine 12/18/13 09/15/20 Mina Pretty DO PCP - General Internal Medicine 09/16/20 Shweta Boucher MD PCP - General Internal Medicine 01/12/21 10/10/21 Ora Ronquillo MD [address] [place] [address] PCP - General Internal Medicine 10/11/21 Jl Mendez MD [address] [place] [address] Dr Montiel [address] [place] [address] Specialist Cardiovascular Disease 10/13/21 Jannette Boudreaux MD [address] [address] Surgeon Neurosurgery 04/07/22 Tenisha Mendieta PA-C [address] [address] Specialist Neurosurgery 04/07/22 Julio Monk PA-C [address] [address] Specialist Neurosurgery 04/07/22 Luis Armando Eller MD [address] [address] Specialist ORTHOPEDIC SURGERY 10/01/23 Jayesh Pineda MD [address] [place] [address] Specialist Endocrinology 10/01/23 Kelsi Tejada MD 305 [facility] [place] [address] Specialist Allergy & Immunology 10/01/23 Pretty Le MD 175 [facility] [address] [place] [address] Specialist Pulmonology 10/01/23 Vesta Michael PA-C 300 [facility] 210 [place] [address] Specialist Vascular Surgery 10/01/23 [facility] 46 [place], [place] [address]24189 Specialist Optometry 10/01/23 documented as of this encounter
--- OUTSIDE RECORDS SUMMARY | 2024-04-22 10:12 | XMS_ITS | Encounter Summary ---
Author Organization [facility] Address [address] [place] [address] Care Team Providers Care Sand Mixer Operator Name Role Phone Teressa Solis DO Primary Care Pro vider Unavailable Mina Pretty DO Primary Care Provider Ailyn Shweta Pretty MD Primary Care Provider Ora Diaz MD Primary Care Prov ider Jl Mendez MD Unavailable Jannette Boudreaux MD Unavailable [phone] Tenisha Mendieta PA-C Unavailable Julio Monk PA-C Unavailable Luis Armando Eller MD Unavailable [phone] Jayesh Pineda MD Unavailable Kelsi Tejada MD Unavailable Unavailable Pretty Le MD Unavailable Vesta Michael PA-C Unavailable [phone] [facility] Unavailable Encounter Details Date Type Department Care Team Description 04/24/2019 Radiologic Technology Program Director Report Medical Records 444 [place] [address] Hari Lopez MD Social History Tobacco Use Types Packs/Day [...] on filedocumented in this encounter Care Teams Sand Mixer Operator Relationship Specialty Start Date End Date Teressa Solis DO PCP - General Internal Medicine 12/18/13 09/15/20 Mina Pretty DO PCP - General Internal Medicine 09/16/20 Shweta Boucher MD PCP - General Internal Medicine 01/12/21 10/10/21 Ora Ronquillo MD [address] [place] [address] PCP - General Internal Medicine 10/11/21 Jl Mendez MD [address] [place] [address] Specialist Cardiovascular Disease 10/13/21 Jannette Boudreaux MD [address] [address] Surgeon Neurosurgery 04/07/22 Tenisha Mendieta PA-C [address] [address] Specialist Neurosurgery 04/07/22 Julio Monk PA-C [address] [address] Specialist Neurosurgery 04/07/22 Luis Armando Eller MD [address] [address] Specialist ORTHOPEDIC SURGERY 10/01/23 Jayesh Pineda MD 305 [place] [address] Specialist Endocrinology 10/01/23 Kelsi Tejada MD 305 [place] [address] Specialist Allergy & Immunology 10/01/23 Pretty Le MD 175 [facility] [address] [place] [address] Specialist Pulmonology 10/01/23 Vesta Michael PA-C 300 [facility] [address] [place] [address] Specialist Vascular Surgery 10/01/23 [facility] [address] [place] [address] Specialist Optometry 10/01/23 documented as of this encounter
--- OUTSIDE RECORDS SUMMARY | 2024-04-22 10:12 | XMS_ITS | Encounter Summary ---
Author Organization [facility] Address [address] [place] [address] Care Team Providers Care Grinder Hardboard Name Role Phone Geno Cueva MD Primary Care Provider Unavailable Teressa Solis DO Primary Care Pro vider Unavailable Mina Pretty DO Primary Care Provider Ailyn Shweta Pretty MD Primary Care Provider Ora Diaz MD Primary Care Prov ider Jl Mendez MD Unavailable Jannetet Boudreaux MD Unavailable [phone] Tenisha Mendieta PA-C Unavailable Julio Monk PA-C Unavailable Luis Armando Eller MD Unavailable [phone] Jayesh Pineda MD Unavailable Kelsi Tejada MD Unavailable Unavailable Pretty Le MD Unavailable Vesta Michael-Pina Unavailable [phone] [facility] Unavailable [phone] Encounter Details Date Type Department Care Team Description 12/01/2013 Maintenance Foreman Report Medical Records [address] [place] [address] Genny Brewer Social History Tobacco Use Types Packs/Day Years [...] on filedocumented in this encounter Care Teams Grinder Hardboard Relationship Specialty Start Date End Date Geno Cueva MD PCP - General Internal Medicine 06/28/1212/17/13 Teressa Solis DO PCP - General Internal Medicine 12/18/13 09/15/20 Mina Pretty DO PCP - General Internal Medicine 09/16/20 Shweta Boucher MD PCP - General Internal Medicine 01/12/21 10/10/21 Ora Ronquillo MD [address] [place] [address] PCP - General Internal Medicine 10/11/21 Jl Mendez MD [address] [place] [address] Dr Montiel [address] [place] [address] Specialist Cardiovascular Disease 10/13/21 Jannette Boudreaux MD [address] [address] Surgeon Neurosurgery 04/07/22 Tenisha Mendieta PA-C [address] [address] Specialist Neurosurgery 04/07/22 Julio Monk PA-C 175 [facility] [address] [place] [address] Specialist Neurosurgery 04/07/22 Luis Armando Eller MD [address] [address] Specialist ORTHOPEDIC SURGERY 10/01/23 Jayesh Pineda MD [address] [place] [address] Specialist Endocrinology 10/01/23 Kelsi Tejada MD 305 [place] [address] Specialist Allergy & Immunology 10/01/23 Pretty Le MD 175 [facility] [address] [place] [address] Specialist Pulmonology 10/01/23 Vesta Michael PA-C 300 [facility] 210 [place] [address] Specialist Vascular Surgery 10/01/23 [facility] 46 [place], [place] [address] Specialist Optometry 10/01/23 documented as of this encounter
--- OUTSIDE RECORDS SUMMARY | 2024-04-22 10:12 | XMS_ITS | Encounter Summary ---
Author Organization [facility] Address [address] [place] [address] Care Team Providers Care Retail Support Specialist Name Role Phone Teressa Solis DO Primary Care Pro vider Unavailable Mina Pretty DO Primary Care Provider Shweta Cronin MD Primary Care Provider Ora Diaz MD Primary Care Prov ider Jl Mendez MD Unavailable [phone] Jannette Boudreaux MD Unavailable [phone] Tenisha Mendieta PA-C Unavailable Julio MonkC Unavailable Luis Armando Eller MD Unavailable [phone] Jayesh Pineda MD Unavailable Kelsi Tejada MD Unavailable Unavailable Pretty Le MD Unavailable Vesta Michael PA-C Unavailable [facility] Unavailable [phone] Reason for Visit * Reason Comments E-prescribe Rx Request Encounter Details Date Type Department Care Team Description 04/07/2019 Refill Allergy [place] 98 [address] [place] [phone] Kelsi Tejada MD E-prescribe Rx Request Social History Tobacco Use [...] as of this encounter Visit Diagnoses Diagnosis Acute non-recurrent maxillary sinusitis documented in this encounter Care Teams Retail Support Specialist Relationship Specialty Start Date End Date Teressa Solis DO PCP - General Internal Medicine 12/18/13 09/15/20 Mina Pretty DO PCP - General Internal Medicine 09/16/20 Shweta Boucher MD PCP - General Internal Medicine 01/12/21 10/10/21 Ora Ronqiullo MD [address] [place] [address] PCP - General Internal Medicine 10/11/21 Jl Mendez MD [address] [place] [address] Dr Montiel [address] [place] [address] Specialist Cardiovascular Disease 10/13/21 Jannette Boudreaux MD [address] [address] Surgeon Neurosurgery 04/07/22 Tenisha Mendieta PA-C [address] [address] Specialist Neurosurgery 04/07/22 Julio Monk PA-C [address] [address] Specialist Neurosurgery 04/07/22 Luis Armando Eller MD [address] [address] Specialist ORTHOPEDIC SURGERY 10/01/23 Jayesh Pineda MD 305 [place] [address] Specialist Endocrinology 10/01/23 Kelsi Tejada MD 305 [place] [address] Specialist Allergy & Immunology 10/01/23 Pretty Le MD 175 [facility] [address] [place] [address] Specialist Pulmonology 10/01/23 Vesta Michael PA-C 300 [facility] 210 [place] [address] Specialist Vascular Surgery 10/01/23 [facility] 46 [place], [place] 24[address]89 Specialist Optometry 10/01/23 documented as of this encounter
--- OUTSIDE RECORDS SUMMARY | 2024-04-22 10:12 | XMS_ITS | Encounter Summary ---
Author Organization [facility] Address [address] [place] [address] Care Team Providers Care Apartment Leasing Consultant Name Role Phone Teressa Solis DO Primary Care Pro vider Unavailable Mina Pretty DO Primary Care Provider Shweta Cronin MD Primary Care Provider Ora Diaz MD Primary Care Prov ider Jl Mendez MD Unavailable Jannette Boudreaux MD Unavailable [phone] Tenisha Mendieta PA-C Unavailable Julio Monk PA-C Unavailable Luis Armando Eller MD Unavailable [phone] Jayesh Pineda MD Unavailable Kelsi Tejada MD Unavailable Unavailable Pretty Le MD Unavailable Vesta Michael PA-C Unavailable [facility] Unavailable [phone] Encounter Details Date Type Department Care Team Description 09/04/2014 Chief Mechanical Engineer Report Medical Records [address] [place] [address] Jl Chou MD 175 [facility] [address] [place], [place] [id number] Social History Tobacco Use Types Packs/Day Years [...] on filedocumented in this encounter Care Teams Apartment Leasing Consultant Relationship Specialty Start Date End Date Teressa Solis DO PCP - General Internal Medicine 12/18/13 09/15/20 Mina Pretty DO PCP - General Internal Medicine 09/16/20 Shweta Boucher MD PCP - General Internal Medicine 01/12/21 10/10/21 Ora Ronquillo MD [address] [place] [address] PCP - General Internal Medicine 10/11/21 Jl Mendez MD [address] [place] [address] Dr Mont[address] [place] [address] Specialist Cardiovascular Disease 10/13/21 Jannette Boudreaux MD [address] [address] Surgeon Neurosurgery 04/07/22 Tenisha Mendieta PA-C [address] [address] Specialist Neurosurgery 04/07/22 Julio Monk PA-C 175 [facility] [address] [place] [address] Specialist Neurosurgery 04/07/22 Luis Armando Eller MD [address] [address] Specialist ORTHOPEDIC SURGERY 10/01/23 Jayesh Pineda MD [address] [place] [address] Specialist Endocrinology 10/01/23 Kelsi Tejada MD 305 [place] [address] Specialist Allergy & Immunology 10/01/23 Pretty Le MD 175 [facility] [address] [place] [address] Specialist Pulmonology 10/01/23 Vesta Michael PA-C 300 [facility] 210 [place] [address] Specialist Vascular Surgery 10/01/23 [facility] [address] [place] [address] Specialist Optometry 10/01/23 documented as of this encounter
--- OUTSIDE RECORDS SUMMARY | 2024-04-22 10:12 | XMS_ITS | Encounter Summary ---
Author Organization [facility] Address [address] [place] [address] Care Team Providers Care Edge Banding Machine Offbearer Name Role Phone Teressa Solis DO Primary Care Pro vider Unavailable Mina Pretty DO Primary Care Provider Shweta Cronin MD Primary Care Provider Ora Diaz MD Primary Care Prov ider Jl Mendez MD Unavailable Jannette Boudreaux MD Unavailable [phone] Tenisha Mendieta PA-C Unavailable Julio Monk PA-C Unavailable Luis Armando Eller MD Unavailable [phone] Jayesh Pineda MD Unavailable Kelsi Tejada MD Unavailable Unavailable Pretty Le MD Unavailable Vesta Michael PA-C Unavailable [phone] [facility] Unavailable Encounter Details Date Type Department Care Team Description 02/22/2018 Manager Unix Report Medical Records [address] [place] [address] Narinder Franco MD Social History Tobacco Use [...] on filedocumented in this encounter Care Teams Edge Banding Machine Offbearer Relationship Specialty Start Date End Date Teressa Solis DO PCP - General Internal Medicine 12/18/13 09/15/20 Mina Pretty DO PCP - General Internal Medicine 09/16/20 Shweta Boucher MD PCP - General Internal Medicine 01/12/21 10/10/21 Ora Ronquillo MD [address] [place] [address] PCP - General Internal Medicine 10/11/21 Jl Mendez MD [address] [place] [address] Specialist Cardiovascular Disease 10/13/21 Jannette Boudreaux MD [address] [address] Surgeon Neurosurgery 04/07/22 Tenisha Mendieta PA-C [address] [address] Specialist Neurosurgery 04/07/22 Julio Monk PA-C [address] [address] Specialist Neurosurgery 04/07/22 Luis Armando Eller MD [address] [address] Specialist ORTHOPEDIC SURGERY 10/01/23 Jayesh Pineda MD 305 [place] [address] Specialist Endocrinology 10/01/23 Kelsi Tejada MD 305 [place] [address] Specialist Allergy & Immunology 10/01/23 Pretty Le MD 175 [facility] [address] [place] [address] Specialist Pulmonology 10/01/23 Vesta Michael PA-C 300 [facility] 210 [place] [address] Specialist Vascular Surgery 10/01/23 [facility] 46 [place] [address] Specialist Optometry 10/01/23 documented as of this encounter
--- OUTSIDE RECORDS SUMMARY | 2024-04-22 10:12 | XMS_ITS | Encounter Summary ---
Author Organization [facility] Address [address] [place] [address] Care Team Providers Care Creative Strategist Name Role Phone Teressa Solis DO Primary Care Pro vider Unavailable Mina Pretty DO Primary Care Provider Shweta Cronin MD Primary Care Provider Ora Diaz MD Primary Care Prov ider Jl Mendez MD Unavailable [phone] Jannette Boudreaux MD Unavailable [phone] Tenisha Mendieta PA-C Unavailable Julio Monk PA-C Unavailable Luis Armando Eller MD Unavailable [phone] Jayesh Pineda MD Unavailable Kelsi Tejada MD Unavailable Unavailable Pretty Le MD Unavailable Vesta Michael PA-C Unavailable [facility] Unavailable [phone] Encounter Details Date Type Department Care Team Description 01/08/2018 Orders Only Medical Records [address] [place] [address] Jeff Ogden MD Social History Tobacco Use [...] Associated Diagnosis Comments OUTSIDE VASCULAR STUDY Routine 01/01/2018 documented in this encounter Results * OUTSIDE VASCULAR STUDY (01/01/2018) Jeff Ogden MD CARDIOLOGY documented in this encounter Visit Diagnoses Not on filedocumented in this encounter Care Teams Creative Strategist Relationship Specialty Start Date End Date Teressa Solis, PCP - General Internal Medicine 12/18/13 09/15/20 Mina Pretty DO PCP - General Internal Medicine 09/16/20 Shweta Boucher MD PCP - General Internal Medicine 01/12/21 10/10/21 Ora Ronquillo MD [address] [place] [address] PCP - General Internal Medicine 10/11/21 Jl Mendez MD [address] [place] [address] Dr Montiel [address] [place] [address] Specialist Cardiovascular Disease 10/13/21 Jannette Boudreaux MD [address] [address] Surgeon Neurosurgery 04/07/22 Tenisha Mendieta PA-C [address] [address] Specialist Neurosurgery 04/07/22 Julio Monk PA-C 175 [facility] 300 [place] [address] Specialist Neurosurgery 04/07/22 Luis Armando Eller MD [address] [address] Specialist ORTHOPEDIC SURGERY 10/01/23 Jayesh Pineda MD 305 [place] [address] Specialist Endocrinology 10/01/23 Kelsi Tejada MD 305 [place] [address] Specialist Allergy & Immunology 10/01/23 Pretty Le MD 175 [facility] [address] [place] [address] Specialist Pulmonology 10/01/23 Vesta Michael PA-C 300 [facility] 210 [place] [address] Specialist Vascular Surgery 10/01/23 [facility] 46 [place] [address] Specialist Optometry 10/01/23 documented as of this encounter
--- OUTSIDE RECORDS SUMMARY | 2024-04-22 10:12 | XMS_ITS | Encounter Summary ---
Author Organization [facility] Address [address] [place] [address] Care Team Providers Care Protection Officer Name Role Phone Ora Sweeney MD Primary Care Prov ider Reason for Visit * Reason Comments DM Foot Care Encounter Details Date Type Department Care Team (Late st Contact Info) Description 04/03/2024 9:45 AM EST Office Visit Orthopedic Surgery - [place] [address] [phone] Duke Dunn, DPJohan [address] [address] Controlled type 2 diabetes with neuropathy (CMS/HCC) [...] care for your loved ones. For example, infant childcare provider or elderly care for an older adult? [...] MD: Iza Last PCP visit: 01/24/2024 IDENTIFIER: @DA[facility]E House is a 63 y.o. year old [...] Sharp/dull sensation intact, protective sensation intact on Minerva. Multiple peripheral neuropathies bilateral lower extremity ORTHOPEDIC: [...] 9:45 AM EDT Office Visit Adult Medicine [address] [phone] Ora Sweeney MD [address] [place] [address] 06/04/2024 10:30 AM EDT Consult Bariatric Surgery [facility] [address] [phone] Lita Verde PA [address] [address] 06/04/2024 11:45 AM EDT Office Visit Orthopedic Surgery [facility] [address] [address] Luis Armando Eller MD [address] [address] 06/05/2024 9:45 AM EDT Office Visit Orthopedic Surgery [facility] 250 175 [facility] 250 [place] [phone] Duke Dunn DPM [address] [address] 06/06/2024 2:30 PM EDT Office Visit Obstetrics and Gynecology [address] [phone] Stacie Martinez CNM [address] [place] [address] 06/30/2024 10:30 AM EDT Office Visit Orthopedic Surgery - [place] 160 175 [facility] 160 [place] [address] Luis Armando Eller MD 175 [facility] 160 [place] [address] 07/02/2024 9:30 AM EDT Office Visit Orthopedic Surgery [facility] 250 175 [facility] 250 [place] [phone] Lorie Moore NP 175 [facility] 250 [place] [address] 07/09/2024 9:30 AM EDT Office Visit Endocrinology [address] [address] Jayesh Pineda MD [address] [place] [address] 09/22/2024 8:45 AM EDT Office Visit Pulmonolgy - [place] 175 [facility] 200 [place] [phone] Pretty Le MD 175 [facility] 200 [place] [address] documented as of this encounter Visit Diagnoses Diagnosis Controlled type 2 diabetes with neuropathy ([facility]/HCC)- Primary Type II or unspecified type diabetes mellitus with neurological manifestations, not stated as uncontrolled PVD (peripheral vascular disease) (CMS/HCC) Unspecified peripheral vascular disease Pain in both feet Difficulty walking Difficulty in walking Dermatophytosis, nail Dermatophytosis of nail documented in this encounter Care Teams Protection Officer Relationship Specialty Start Date End Date Ora Sweeney MD [address] [place] [address] PCP - General Internal Medicine 01/09/24 documented as of this encounter
--- OUTSIDE RECORDS SUMMARY | 2024-04-22 10:12 | XMS_ITS | Encounter Summary ---
Author Organization [facility] Address [address] [place] [address] Care Team Providers Care Director Private Music Therapy Agency Name Role Phone Teressa Solis DO Primary Care Pro vider Unavailable Mina Pretty DO Primary Care Provider Shweta Cronin MD Primary Care Provider Ora Diaz MD Primary Care Prov ider Jl Mendez MD Unavailable Jannette Boudreaux MD Unavailable [phone] Tenisha Mendieta PA-C Unavailable Julio Monk PA-C Unavailable [phone] Luis Armando Eller MD Unavailable [phone] Jayesh Pineda MD Unavailable Kelsi Tejada MD Unavailable Unavailable Pretty Le MD Unavailable Vesta Michael PA-C Unavailable [facility] Unavailable Reason for Visit * Reason Onset Date Comments Medication 02/20/2014 RE-FAX Encounter Details Date Type Department Care Team Description 02/20/2014 Telephone Adult Medicine [address] [address] Teressa Solis DO Medication (RE-FAX) Social History Tobacco Use Types Packs/Day Years [...] on filedocumented in this encounter Care Teams Director Private Music Therapy Agency Relationship Specialty Start Date End Date Teressa Solis DO PCP - General Internal Medicine 12/18/13 09/15/20 Mina Pretty DO PCP - General Internal Medicine 09/16/20 1 Shweta Tellez MD PCP - General Internal Medicine 01/12/21 10/10/21 Hiwot Couch, Ora Kelly MD [address] [place] [address] PCP - General Internal Medicine 10/11/21 Jl Mendez MD [address] [place] [address] Dr Montiel [address] [place] [address] Specialist Cardiovascular Disease 10/13/21 Jannette Boudreaux MD [address] [address] Surgeon Neurosurgery 04/07/22 Tenisha Mendieta PA-C [address] [address] Specialist Neurosurgery 04/07/22 Julio Monk PA-C [address] [address] Specialist Neurosurgery 04/07/22 Luis Armando Eller MD [address] [address] Specialist ORTHOPEDIC SURGERY 10/01/23 Jayesh Pineda MD [address] [place] [address] Specialist Endocrinology 10/01/23 Kelsi Tejada MD 305 [place] [address] Specialist Allergy & Immunology 10/01/23 Pretty Le MD 175 [facility] [address] [place] [address] Specialist Pulmonology 10/01/23 Vesta Michael PA-C 300 [facility] [address] [place] [address] Specialist Vascular Surgery 10/01/23 [facility] 46 [place] [address] Specialist Optometry 10/01/23 documented as of this encounter
--- OUTSIDE RECORDS SUMMARY | 2024-04-22 10:12 | XMS_ITS | Encounter Summary ---
Author Organization [facility] Address [address] [place] [address] Care Team Providers Care Senior Bioinformatics Scientist Name Role Phone Teressa Solis DO Primary Care Pro vider Unavailable Mina Pretty DO Primary Care Provider Ailyn Shweta Pretty MD Primary Care Provider UnaOra Randall MD Primary Care Prov ider Jl Mendez MD Unavailable Jannette Boudreaux MD Unavailable [phone] Tenisha Mendieta PA-C Unavailable Julio MonkC Unavailable [phone] Luis Armando Eller MD Unavailable [phone] Jayesh Pineda MD Unavailable Kelsi Tejada MD Unavailable Unavailable Pretty Le MD Unavailable Vesta Michael PA-C Unavailable [phone] [facility] Unavailable [phone] Encounter Details Date Type Department Care Team Description 03/06/2018 Orders Only Pulmonology - [place] 175 [facility] [address] [place] [address] Julio Cesar Weiss MD 175 [facility] Dinesh 200 [place] [address] Obstructive sleep apnea severe AHI 35; Obesity (BMI 30.0-34.9); Gastroesophageal reflux disease without esophagitis; Moderate persistent asthma with acute exacerbation; PND (post-nasal drip); Allergic rhinitis due to pollen, unspecified seasonality Social History Tobacco Use Types Packs/Day Years [...] Procedure Name Priority Date/Time Associated Diagnosis Comments CHG RADIOLOGIC EXAM CHEST 2 VIEWS Routine 03/06/2018 Obstructive sleep apnea severe AHI 35 Obesity (BMI 30.0-34.9) Gastroesophageal reflux disease without esophagitis Moderate persistent asthma with acute exacerbation PND (post-nasal drip) Allergic rhinitis due to pollen, unspecified seasonality documented in this encounter Results * RADIOLOGIC EXAM CHEST 2 VIEWS (03/06/2018) Narrative Authorizing Provider Result Citlalli Weiss MD RADIOLOGY documented in this encounter Visit Diagnoses Diagnosis Obstructive sleep apnea severe AHI 35 Obstructive sleep apnea (adult) (pediatric) Obesity (BMI 30.0-34.9) Obesity, unspecified Gastroesophageal reflux disease without esophagitis Esophageal reflux Moderate persistent asthma with acute exacerbation PND (post-nasal drip) Postnasal drip Allergic rhinitis due to pollen, unspecified seasonality documented in this encounter Care Teams Senior Bioinformatics Scientist Relationship Specialty Start Date End Date Teressa Solis DO PCP - General Internal Medicine 12/18/13 09/15/20 Mina Pretty DO PCP - General Internal Medicine 09/16/20 1 Shweta Tellez MD PCP - General Internal Medicine 01/12/21 10/10/21 Ora Ronquillo MD [address] [place] [address] PCP - General Internal Medicine 10/11/21 Jl Mendez MD [address] [place] [address] [place] [address] Specialist Cardiovascular Disease 10/13/21 Jannette Boudreaux MD 175 [facility] 300 [place] [address] Surgeon Neurosurgery 04/07/22 Tenisha Mendieta PA-C 175 [facility] 300 [place] [address] Specialist Neurosurgery 04/07/22 Julio Monk PA-C 175 [facility] 300 [place] [address] Specialist Neurosurgery 04/07/22 Luis Armando Eller MD [address] [address] Specialist ORTHOPEDIC SURGERY 10/01/23 Jayesh Pineda MD 305 [place] [address] Specialist Endocrinology 10/01/23 Kelsi Tejada MD 305 [place] [address] Specialist Allergy & Immunology 10/01/23 Pretty Le MD 175 [facility] 200 [place] [address] Specialist Pulmonology 10/01/23 Vesta Michael PA-C 300 [facility] 210 [place] [address] Specialist Vascular Surgery 10/01/23 [facility] 46 [place] [address] Specialist Optometry 10/01/23 documented as of this encounter
--- OUTSIDE RECORDS SUMMARY | 2024-04-22 10:12 | XMS_ITS | Encounter Summary ---
Author Organization [facility] Address [address] [place] [address] Care Team Providers Care Machine Adjuster Name Role Phone Teressa Solis DO Primary Care Pro vider Unavailable Mina Pretty DO Primary Care Provider Shweta Cronin MD Primary Care Provider Ora Diaz MD Primary Care Prov ider Jl Mendez MD Unavailable [phone] Jannette Boudreaux MD Unavailable [phone] Tenisha Mendieta PA-C Unavailable [phone] Julio Monk PA-C Unavailable Luis Armando Eller MD Unavailable [phone] Jayesh Pineda MD Unavailable Kelsi Tejada MD Unavailable Unavailable Pretty Le MD Unavailable Vesta Michael PA-C Unavailable [facility] Unavailable Reason for Visit * Reason Comments E-prescribe Rx Request Encounter Details Date Type Department Care Team Description 03/07/2019 Refill Adult Medicine [address] [id number] Deborah Addison PA-C E-prescribe Rx Request Social History Tobacco Use [...] Telephone Encounter - Lubna Thornton M.A. - 03/07/2019 9:50 AM EST Refused, not meant to be refilled * Telephone Encounter - Shaylee Willson - 03/07/2019 9:24 AM EST Patient would like script to be: E-PRESCRIBED/FAXED TO PHARMACY WHEN WAS THE PATIENT'S LAST APPOINTMENT IN ADULT MEDICINE? 02/26/19 WHEN WAS THE LAST TIME THE PATIENT SAW THEIR PCP? 02/11/19 Does patient have an upcoming appointment? Yes 03/21/19 (THE MEDICATION REQUESTED IS ON THE MED [...] N/A Patients current insurance carrier is: Payor: [employer] FFS / Plan: [email or web address] / Product Type: MEDICAID RISK documented in this encounter Plan of Treatment Not on file documented as of this encounter Visit Diagnoses Not on filedocumented in this encounter Care Teams Machine Adjuster Relationship Specialty Start Date End Date Teressa Solis DO PCP - General Internal Medicine 12/18/13 09/15/20 Mina Pretty DO PCP - General Internal Medicine 09/16/20 Shweta Boucher MD PCP - General Internal Medicine 01/12/21 10/10/21 Ora Ronquillo MD 444 [place] [address] PCP - General Internal Medicine 10/11/21 Jl Mendez MD [address] [place] [address] Dr Montiel [address] [place] [address] Specialist Cardiovascular Disease 10/13/21 Jannette Boudreaux MD [address] [facility] 300 [place] [address] Surgeon Neurosurgery 04/07/22 Tenisha Mendieta PA-C [address] [address] Specialist Neurosurgery 04/07/22 Julio Monk PA-C 175 [facility] 300 [place] [address] Specialist Neurosurgery 04/07/22 Luis Armando Eller MD 175 [facility] 250 [place] [address] Specialist ORTHOPEDIC SURGERY 10/01/23 Jayesh Pineda MD 305 [place] [address] Specialist Endocrinology 10/01/23 Kelsi Tejada MD 305 [place] [address] Specialist Allergy & Immunology 10/01/23 Pretty Le MD 175 [facility] 200 [place] [address] Specialist Pulmonology 10/01/23 Vesta Michael PA-C 300 [facility] 210 [place] [address] Specialist Vascular Surgery 10/01/23 [place] [address] [place] [address] Specialist Optometry 10/01/23 documented as of this encounter
--- OUTSIDE RECORDS SUMMARY | 2024-04-22 10:12 | XMS_ITS | Encounter Summary ---
Author Organization [facility] Address [address] [place] [address] Care Team Providers Care Master Hearth Technician Name Role Phone Teressa Solis DO Primary Care Pro vider Unavailable Mina Pretty DO Primary Care Provider Ailyn Shweta Pretty MD Primary Care Provider Ora Diaz MD Primary Care Prov ider Jl Mendez MD Unavailable Jannette Boudreaux MD Unavailable [phone] Tenisha Mendieta PA-C Unavailable Julio Monk PA-C Unavailable Luis Armando Eller MD Unavailable [phone] Jayesh Pineda MD Unavailable Kelsi Tejada MD Unavailable Unavailable Pretty Le MD Unavailable Vesta Michael PA-C Unavailable [phone] [facility] Unavailable Reason for Visit * Reason Onset Date Comments Provider Call Back 01/02/2018 Encounter Details Date Type Department Care Team Description 01/02/2018 Telephone [address] [address] Bala Vazquez OD Provider Call Back Social History Tobacco Use Types Packs/Day Years [...] encounter Miscellaneous Notes * Telephone Encounter - Ester Gama M.A. - 01/02/2018 3:16 PM EDT Called patient left message on answering machine to call the eye dept at [facility] * Telephone Encounter - Sarah Jung - 01/02/2018 12:47 PM EDT Caller requesting call back from provider: Is the caller the patient? YES If caller is not the patient, what is the callers name? N/A Callers relationship to patient? N/A If person calling is not the patient themselves, is there a verbal release in FYI or permanent comments for this person: NO Reason for call back: Patient received letter to call Dr Vazquez. Caller offered to speak with the nurse for assistance: YES Response: Patient offered to speak with nurse for assistance and patient agreed. Message forwarded to nurse. documented in this encounter Plan of Treatment Not on file documented as of this encounter Visit Diagnoses Not on filedocumented in this encounter Care Teams Master Hearth Technician Relationship Specialty Start Date End Date Teressa Solis DO PCP - General Internal Medicine 12/18/13 09/15/20 Mina Pretty DO PCP - General Internal Medicine 09/16/20 1 Shweta Tellez MD PCP - General Internal Medicine 01/12/21 10/10/21 Ora Ronquillo MD [address] [place] [address] PCP - General Internal Medicine 10/11/21 Jl Mendez MD [address] [place] [address] [place] [address] Specialist Cardiovascular Disease 10/13/21 Jannette Boudreaux MD 175 [facility] 300 [place] [address] Surgeon Neurosurgery 04/07/22 Tenisha Mendieta PA-C 175 [facility] 300 [place] [address] Specialist Neurosurgery 04/07/22 Julio Monk PA-C 175 [facility] 300 [place] [address] Specialist Neurosurgery 04/07/22 Luis Armando Eller MD 175 [facility] 250 [place] [address] Specialist ORTHOPEDIC SURGERY 10/01/23 Jayesh Pineda MD 305 [place] [address] Specialist Endocrinology 10/01/23 Kelsi Tejada MD 305 [place] [address] Specialist Allergy & Immunology 10/01/23 Pretty Le MD 175 [facility] 200 [place] [address] Specialist Pulmonology 10/01/23 Vesta Michael PA-C 300 [facility] 210 [place] [address] Specialist Vascular Surgery 10/01/23 [facility] 46 [place] [address] Specialist Optometry 10/01/23 documented as of this encounter
--- OUTSIDE RECORDS SUMMARY | 2024-04-22 10:12 | XMS_ITS | Encounter Summary ---
Author Organization [facility] Address [address] [place] [address] Care Team Providers Care Field Crop Technical Officer Name Role Phone Geno Cueva MD Primary Care Provider Unavailable Teressa Solis DO Primary Care Pro vider Unavailable Mina Pretty DO Primary Care Provider Ailyn Shweta Pretty MD Primary Care Provider Ora Diaz MD Primary Care Prov ider Jl Mendez MD Unavailable Jannette Boudreaux MD Unavailable [phone] Tenisha Mendieta PA-C Unavailable Julio Monk PA-C Unavailable [phone] Luis Armando Eller MD Unavailable [phone] Jayesh Pineda MD Unavailable Kelsi Tejada MD Unavailable Unavailable Pretty Le MD Unavailable Vesta Michael-C Unavailable [phone] [facility] Unavailable Encounter Details Date Type Department Care Team Description 10/01/2013 Orders Only SCRIPT WRITER - [address] [address] Social History Tobacco Use Types Packs/Day Years [...] on filedocumented in this encounter Care Teams Field Crop Technical Officer Relationship Specialty Start Date End Date Geno Cueva MD PCP - General Internal Medicine 06/28/1212/17/13 Teressa Solis DO PCP - General Internal Medicine 12/18/13 09/15/20 Mina Pretty DO PCP - General Internal Medicine 09/16/20 1 Shweta Tellez MD PCP - General Internal Medicine 01/12/21 10/10/21 Ora Ronquillo MD [address] [place] [address] PCP - General Internal Medicine 10/11/21 Jl Mendez MD [address] [place] [address] Dr Mont[address] [place] [address] Specialist Cardiovascular Disease 10/13/21 Jannette Boudreaux MD [address] [address] Surgeon Neurosurgery 04/07/22 Tenisha Mendieta PA-C [address] [address] Specialist Neurosurgery 04/07/22 Julio Monk PA-C [address] [address] Specialist Neurosurgery 04/07/22 Luis Armando Eller MD [address] [address] Specialist ORTHOPEDIC SURGERY 10/01/23 Jayesh Pineda MD [address] [place] [address] Specialist Endocrinology 10/01/23 Kelsi Tejada MD 305 [place] [address] Specialist Allergy & Immunology 10/01/23 Pretty Le MD 175 [facility] [address] [place] [address] Specialist Pulmonology 10/01/23 Vesta Michael PA-C 300 [facility] 210 [place] [address] Specialist Vascular Surgery 10/01/23 [facility] 46 [place] [address] Specialist Optometry 10/01/23 documented as of this encounter
--- OUTSIDE RECORDS SUMMARY | 2024-04-22 10:12 | XMS_ITS | Encounter Summary ---
Author Organization [facility] Address [address] [place] [address] Care Team Providers Care X Ray Service Technician Name Role Phone Teressa Solis DO Primary Care Pro vider Unavailable Mina Pretty DO Primary Care Provider Shweta Cronin MD Primary Care Provider Ora Diaz MD Primary Care Prov ider Jl Mendez MD Unavailable Jannette Boudreaux MD Unavailable [phone] Tenisha Mendieta PA-C Unavailable [phone] Julio Monk PA-C Unavailable Luis Armando Eller MD Unavailable [phone] Jayesh Pineda MD Unavailable Kelsi Tejada MD Unavailable Unavailable Pretty Le MD Unavailable Vesta Michael PA-C Unavailable [phone] [facility] Unavailable Encounter Details Date Type Department Care Team Description 04/01/2019 Walk In Clinic Visit Medical Records [address] [place] [address] [place], [facility] [address] [place] [address] Social History Tobacco Use Types Packs/Day Years [...] on filedocumented in this encounter Care Teams X Ray Service Technician Relationship Specialty Start Date End Date Teressa Solis DO PCP - General Internal Medicine 12/18/13 09/15/20 Mina Pretty DO PCP - General Internal Medicine 09/16/20 Shweta Boucher MD PCP - General Internal Medicine 01/12/21 10/10/21 Ora Ronquillo MD [address] [place] [address] PCP - General Internal Medicine 10/11/21 Jl Mendez MD [address] [place] [address] Dr Mont[address] [place] [address] Specialist Cardiovascular Disease 10/13/21 Jannette Boudreaux MD [address] [address] Surgeon Neurosurgery 04/07/22 Tenisha Mendieta PA-C [address] [address] Specialist Neurosurgery 04/07/22 Julio Monk PA-C [address] [address] Specialist Neurosurgery 04/07/22 Luis Armando Eller MD [address] [address] Specialist ORTHOPEDIC SURGERY 10/01/23 Jayesh Pineda MD 305 [place] [address] Specialist Endocrinology 10/01/23 Kelsi Tejada MD 305 [place] [address] Specialist Allergy & Immunology 10/01/23 Pretty Le MD 175 [facility] [address] [place] [address] Specialist Pulmonology 10/01/23 Vesta Michael PA-C 300 [facility] 210 [place] [address] Specialist Vascular Surgery 10/01/23 [facility] 46 [place] [address] Specialist Optometry 10/01/23 documented as of this encounter
--- OUTSIDE RECORDS SUMMARY | 2024-04-22 10:12 | XMS_ITS | Encounter Summary ---
Author Organization [facility] Address [address] [place] [address] Care Team Providers Care Interdisciplinary Professor Name Role Phone Teressa Solis DO Primary Care Pro vider Unavailable Mina Pretty DO Primary Care Provider Shweta Cronin MD Primary Care Provider Ora Diaz MD Primary Care Prov ider Jl Mendez MD Unavailable Jannette Boudreaux MD Unavailable [phone] Tenisha Mendieta PA-C Unavailable [phone] Julio Monk PA-C Unavailable [phone] Luis Armando Eller MD Unavailable [phone] Jayesh Pineda MD Unavailable Kelsi Tejada MD Unavailable Unavailable Pretty Le MD Unavailable Vesta Michael PA-C Unavailable [phone] [facility] Unavailable Encounter Details Date Type Department Care Team Description 12/21/2017 Box Truck Owner Operator Report Medical Records [address] [place] [address] Narinder Franco MD Social History Tobacco Use [...] on filedocumented in this encounter Care Teams Interdisciplinary Professor Relationship Specialty Start Date End Date Teressa Solis DO PCP - General Internal Medicine 12/18/13 09/15/20 Mina Pretty DO PCP - General Internal Medicine 09/16/20 Shweta Boucher MD PCP - General Internal Medicine 01/12/21 10/10/21 Ora Ronquillo MD [address] [place] [address] PCP - General Internal Medicine 10/11/21 Jl Mendez MD [address] [place] [address] Specialist Cardiovascular Disease 10/13/21 Jannette Boudreaux MD [address] [address] Surgeon Neurosurgery 04/07/22 Tenisha Mendieta PA-C [address] [address] Specialist Neurosurgery 04/07/22 Julio Monk PA-C [address] [address] Specialist Neurosurgery 04/07/22 Luis Armando Eller MD [address] [address] Specialist ORTHOPEDIC SURGERY 10/01/23 Jayesh Pineda MD 305 [place] [address] Specialist Endocrinology 10/01/23 Kelsi Tejada MD 305 [place] [address] Specialist Allergy & Immunology 10/01/23 Pretty Le MD 175 [facility] [address] [place] [address] Specialist Pulmonology 10/01/23 Vesta Michael PA-C 300 [facility] 210 [place] [address] Specialist Vascular Surgery 10/01/23 [facility] 46 [place] [address] Specialist Optometry 10/01/23 documented as of this encounter
--- OUTSIDE RECORDS SUMMARY | 2024-04-22 10:12 | XMS_ITS | Encounter Summary ---
Author Organization [facility] Address [address] [place] [address] Care Team Providers Care Staffing Director Name Role Phone Teressa Solis DO Primary Care Pro vider Unavailable Mina Pretty DO Primary Care Provider Shweta Cronin MD Primary Care Provider Ora Diaz MD Primary Care Prov ider Jl Mendez MD Unavailable Jannette Boudreaux MD Unavailable [phone] Tenisha Mendieta PA-C Unavailable Julio Monk PA-C Unavailable [phone] Luis Armando Eller MD Unavailable [phone] Jayesh Pineda MD Unavailable Kelsi Tejada MD Unavailable Unavailable Pretty Le MD Unavailable Vesta Michael PA-C Unavailable [facility] Unavailable Encounter Details Date Type Department Care Team Description 03/25/2018 Transfer Records Medical Records 4 [place] [address] Abstract, Provider Social History Tobacco Use Types [...] on filedocumented in this encounter Care Teams Staffing Director Relationship Specialty Start Date End Date Teressa Solis DO PCP - General Internal Medicine 12/18/13 09/15/20 Mina Pretty DO PCP - General Internal Medicine 09/16/20 Shweta Boucher MD PCP - General Internal Medicine 01/12/21 10/10/21 Ora Ronquillo MD [address] [place] [address] PCP - General Internal Medicine 10/11/21 Jl Mendez MD [address] [place] [address] Specialist Cardiovascular Disease 10/13/21 Jannette Boudreaux MD [address] [address] Surgeon Neurosurgery 04/07/22 Tenisha Mendieta PA-C [address] [address] Specialist Neurosurgery 04/07/22 Julio Monk PA-C [address] [address] Specialist Neurosurgery 04/07/22 Luis Armando Eller MD [address] [address] Specialist ORTHOPEDIC SURGERY 10/01/23 Jayesh Pineda MD 305 [place] [address] Specialist Endocrinology 10/01/23 Kelsi Tejada MD 305 [place] [address] Specialist Allergy & Immunology 10/01/23 Pretty Le MD 175 [facility] [address] [place] [address] Specialist Pulmonology 10/01/23 Vesta Michael PA-C 300 [facility] [address] [place] [address] Specialist Vascular Surgery 10/01/23 [facility] 46 [place] [address] Specialist Optometry 10/01/23 documented as of this encounter
--- OUTSIDE RECORDS SUMMARY | 2024-04-22 10:12 | XMS_ITS | Encounter Summary ---
Author Organization [facility] Address [address] [place] [address] Care Team Providers Care Science Teacher Name Role Phone Teressa Solis DO Primary Care Pro vider Unavailable Mina Pretty DO Primary Care Provider Shweta Cronin MD Primary Care Provider Ora Diaz MD Primary Care Prov ider Jl Mendez MD Unavailable Jannette Boudreaux MD Unavailable [phone] Tenisha Mendieta PA-C Unavailable Julio Monk PA-C Unavailable Luis Armando Eller MD Unavailable [phone] Jayesh Pineda MD Unavailable Kelsi Tejada MD Unavailable Unavailable Pretty Le MD Unavailable Vesta Michael PA-C Unavailable [facility] Unavailable Encounter Details Date Type Department Care Team Description 02/04/2018 Telephone Adult Medicine - [place] [address] [place] [address] Dez Tristan MD Social History [...] documented as of this encounter Results * (ABNORMAL) 25 HYDROXY INCLUDES FRACTIONS IF PERFORMED (06/07/2018 2:45 PM EDT) VITAMIN D, 25-HYDROXY 18(L) 30 - 80 ng/mL 06/07/2018 5:58 PM EDT [facility] 06/07/2018 2:45 PM EDT 06/07/2018 2:48 PM EDT Dez Tristan MD LAB [facility] * CALCIUM,TOTAL (06/07/2018 2:45 PM EDT) CALCIUM 9.5 8.5 - 10.5 mg/dL 06/07/2018 5:41 PM EDT [facility] 06/07/2018 2:45 PM EDT 06/07/2018 2:48 PM EDT Dez Tristan MD LAB [facility] documented in this encounter Visit Diagnoses Diagnosis Hypercalcemia- Primary documented in this encounter Care Teams Science Teacher Relationship Specialty Start Date End Date Teressa Solis DO PCP - General Internal Medicine 12/18/13 09/15/20 Mina Pretty DO PCP - General Internal Medicine 09/16/20 1 Shweta Tellez MD PCP - General Internal Medicine 01/12/21 10/10/21 Ora Ronquillo MD [address] [place] [address] PCP - General Internal Medicine 10/11/21 Jl Mendez MD [address] [place] [address] [place] [address] Specialist Cardiovascular Disease 10/13/21 Jannette Boudreaux MD 175 [facility] 300 [place] [address] Surgeon Neurosurgery 04/07/22 Tenisha Mendieta PA-C 175 [facility] 300 [place] [address] Specialist Neurosurgery 04/07/22 Julio Monk PA-C 175 [facility] [address] [place] [address] Specialist Neurosurgery 04/07/22 Luis Armando Eller MD 175 [facility] 250 [place] [address] Specialist ORTHOPEDIC SURGERY 10/01/23 Jayesh Pineda MD 305 [place] [address] Specialist Endocrinology 10/01/23 Kelsi Tejada MD 305 [place] [address] Specialist Allergy & Immunology 10/01/23 Pretty Le MD 175 [facility] 200 [place] [address] Specialist Pulmonology 10/01/23 Vesta Michael PA-C 300 [facility] 210 [place] [address] Specialist Vascular Surgery 10/01/23 [facility] 46 [place] [address] Specialist Optometry 10/01/23 documented as of this encounter
--- OUTSIDE RECORDS SUMMARY | 2024-04-22 10:12 | XMS_ITS | Encounter Summary ---
Author Organization [facility] Address [address] [place] [address] Care Team Providers Care Scroll Assembler Name Role Phone Teressa Solis DO Primary Care Pro vider Unavailable Mina rPetty DO Primary Care Provider Ailyn Shweta Pretty MD Primary Care Provider Ora Diaz MD Primary Care Prov ider Jl Mendez MD Unavailable Jannette Boudreaux MD Unavailable [phone] Tenisha Mendieta PA-C Unavailable Julio Monk PA-C Unavailable Luis Armando Eller MD Unavailable [phone] Jayesh Pineda MD Unavailable Kelsi Tejada MD Unavailable Unavailable Pretty Le MD Unavailable Vesta Michael PA-C Unavailable [phone] [facility] Unavailable Encounter Details Date Type Department Care Team Description 01/20/2014 Release of Information Medical Records 4 [place] [address] Abstract, Provider Social History Tobacco Use Types [...] on filedocumented in this encounter Care Teams Scroll Assembler Relationship Specialty Start Date End Date Teressa Solis DO PCP - General Internal Medicine 12/18/13 09/15/20 Mina Pretty DO PCP - General Internal Medicine 09/16/20 Shweta Boucher MD PCP - General Internal Medicine 01/12/21 10/10/21 Ora Ronquillo MD [address] [place] [address] PCP - General Internal Medicine 10/11/21 Jl Mendez MD [address] [place] [address] [place] [address] Specialist Cardiovascular Disease 10/13/21 Jannette Boudreaux MD [address] [address] Surgeon Neurosurgery 04/07/22 Tenisha Mendieta PA-C [address] [address] Specialist Neurosurgery 04/07/22 Julio Monk PA-C [address] [address] Specialist Neurosurgery 04/07/22 Luis Armando Eller MD [address] [address] Specialist ORTHOPEDIC SURGERY 10/01/23 Jayesh Pineda MD 305 [place] [address] Specialist Endocrinology 10/01/23 Kelsi Tejada MD 305 [place] [address] Specialist Allergy & Immunology 10/01/23 Pretty Le MD 175 [facility] [address] [place] [address] Specialist Pulmonology 10/01/23 Vesta Michael PA-C 300 [facility] [address] [place] [address] Specialist Vascular Surgery 10/01/23 [facility] 46 [place] [address] Specialist Optometry 10/01/23 documented as of this encounter
--- OUTSIDE RECORDS SUMMARY | 2024-04-22 10:12 | XMS_ITS | Encounter Summary ---
Author Organization [facility] Address [address] [place] [address] Care Team Providers Care Computer Systems Security Analyst Name Role Phone Teressa Solis DO Primary Care Pro vider Unavailable Mina Pretty DO Primary Care Provider Shweta Cronin MD Primary Care Provider Ora Diaz MD Primary Care Prov ider Jl Mendez MD Unavailable Jannette Boudreaux MD Unavailable [phone] Tenisha Mendieta PA-C Unavailable [phone] Julio Monk PA-C Unavailable Luis Armando Eller MD Unavailable [phone] Jayesh Pineda MD Unavailable Kelsi Tejada MD Unavailable Unavailable Pretty Le MD Unavailable Vesta Michael PA-C Unavailable [phone] [facility] Unavailable Reason for Visit * Reason Comments E-prescribe Rx Request Encounter Details Date Type Department Care Team Description 03/27/2019 Refill Adult Medicine [address] [address] Teressa Solis DO E-prescribe Rx Request Social [...] Telephone Encounter - Lubna Thornton M.A. - 03/27/2019 11:13 AM EST Lab Results Component Value Date NA 141 11/25/2018 K 4.2 11/25/2018 CO2 29 11/25/2018 CL 106 11/25/2018 BUN 18 11/25/2018 CREAT 0.76 11/25/2018 GLU 134 11/25/2018 CA 9.3 11/25/2018 GFR > 60 11/25/2018 Last ov 03/25/2019 * Telephone Encounter - Shaylee Willson - 03/27/2019 9:39 AM EST Patient would like script to be: E-PRESCRIBED/FAXED TO PHARMACY WHEN WAS THE PATIENT'S LAST APPOINTMENT IN ADULT MEDICINE? 03/25/19 WHEN WAS THE LAST TIME THE PATIENT SAW THEIR PCP? 03/21/19 Does patient have an upcoming appointment? No-unable to reach left [facility] to call for appointment due to refill request. Appt due 09/23/19 (THE MEDICATION REQUESTED IS ON THE MED [...] N/A Patients current insurance carrier is: Payor: [facility] [employer] / Plan: [employer] / Product Type: MEDICAID RISK documented in this encounter Plan of Treatment Not on file documented as of this encounter Visit Diagnoses Not on filedocumented in this encounter Care Teams Computer Systems Security Analyst Relationship Specialty Start Date End Date Teressa Solis DO PCP - General Internal Medicine 12/18/13 09/15/20 Mina Pretty DO PCP - General Internal Medicine 09/16/20 Shweta Boucher MD PCP - General Internal Medicine 01/12/21 10/10/21 Ora Ronquillo MD [address] [place] [address] PCP - General Internal Medicine 10/11/21 Jl Mendez MD [address] [place] [address] Dr Mont[address] [place] [address] Specialist Cardiovascular Disease 10/13/21 Jannette Boudreaux MD [address] [address] Surgeon Neurosurgery 04/07/22 Tenisha Mendieta PA-C [address] [address] Specialist Neurosurgery 04/07/22 Julio Monk PA-C 175 [facility] [address] [place] [address] Specialist Neurosurgery 04/07/22 Luis Armando Eller MD [address] [address] Specialist ORTHOPEDIC SURGERY 10/01/23 Jayesh Pineda MD 305 [place] [address] Specialist Endocrinology 10/01/23 Kelsi Tejada MD 305 [place] [address] Specialist Allergy & Immunology 10/01/23 Pretty Le MD 175 [facility] [address] [place] [address] Specialist Pulmonology 10/01/23 Vesta Michael PA-C 300 [facility] 210 [place] [address] Specialist Vascular Surgery 10/01/23 [facility] 46 [place] [address] Specialist Optometry 10/01/23 documented as of this encounter
--- OUTSIDE RECORDS SUMMARY | 2024-04-22 10:13 | XMS_ITS | Encounter Summary ---
Author Organization [facility] Address [address] [place] [address] Care Team Providers Care Still Cleaner Name Role Phone Teressa Solis DO Primary Care Pro vider Unavailable Mina Pretty DO Primary Care Provider Ailyn Shweta Pretty MD Primary Care Provider UnaOra Randall MD Primary Care Prov ider Jl Mendez MD Unavailable Jannette Boudreaux MD Unavailable [phone] Tenisha Mendieta PA-C Unavailable [phone] Julio Monk PA-C Unavailable Luis Armando Eller MD Unavailable [phone] Jayesh Pinead MD Unavailable Kelsi Tejada MD Unavailable Unavailable Pretty Le MD Unavailable Vesta Michael PA-C Unavailable [facility] Unavailable Reason for Referral * Specialist (Routine) - Authorized/Booked Specialty Diagnoses / Procedures Referred By Janie castillo Referred To Contact ORTHOPEDICS / Orthopedic Procedures REFERRAL TO ORTHOPEDICS Teressa Solis DO [address] [place] [address] Jl Chou MD 175 [facility] [address] [place] [id number] Referral ID Status Reason Start Date Expiration Date V isits Requested Visits Authorized SEE NOTE Authorized/B ooked 10/20/2014 01/21/2015 1 1 Encounter Details Date Type Department Care Team Description 10/20/2014 Orders Only Adult Medicine [facility] [address] [place] [address] Teressa Solis DO Bilateral carpal tunnel syndrome (Primary Dx) Social History Tobacco Use Types [...] as of this encounter Visit Diagnoses Diagnosis Bilateral carpal tunnel syndrome- Primary Carpal tunnel syndrome documented in this encounter Care Teams Still Cleaner Relationship Specialty Start Date End Date Teressa Solis DO PCP - General Internal Medicine 12/18/13 09/15/20 Mina Pretty DO PCP - General Internal Medicine 09/16/20 Shweta Boucher MD PCP - General Internal Medicine 01/12/21 10/10/21 Ora Ronquillo MD 444 [place] [address] PCP - General Internal Medicine 10/11/21 Jl Mendez MD [address] [place] [address] [place] [address] Specialist Cardiovascular Disease 10/13/21 Jannette Boudreaux MD [address] [address] Surgeon Neurosurgery 04/07/22 Tenisha Mendieta PA-C [address] [address] Specialist Neurosurgery 04/07/22 Julio Monk PA-C 175 [facility] [address] [place] [address] Specialist Neurosurgery 04/07/22 Luis Armando Eller MD 175 [facility] [address] [place] [address] Specialist ORTHOPEDIC SURGERY 10/01/23 Jayesh Pineda MD 305 [place] [address] Specialist Endocrinology 10/01/23 Kelsi Tejada MD 305 [place] [address] Specialist Allergy & Immunology 10/01/23 Pretty Le MD 175 [facility] [address] [place] [address] Specialist Pulmonology 10/01/23 Vesta Michael PA-C 300 [facility] [address] [place] [address] Specialist Vascular Surgery 10/01/23 [facility] [address] [place] [address] Specialist Optometry 10/01/23 documented as of this encounter
--- OUTSIDE RECORDS SUMMARY | 2024-04-22 10:13 | XMS_ITS | Encounter Summary ---
Author Organization [facility] Address [address] [place] [address] Care Team Providers Care Supervisor Benzene Refining Name Role Phone Ora Ronquillo MD Primary Care Prov ider Jl Mendez MD Unavailable Jannette Boudreaux MD Unavailable [phone] Tensiha Mendieta-C Unavailable Julio Monk PA-C Unavailable Luis Armando Eller MD Unavailable [phone] Jayesh Pineda MD Unavailable Kelsi Tejada MD Unavailable Unavailable Pretty Le MD Unavailable Vesta Michael PA-C Unavailable [phone] [facility] Unavailable Encounter Details Date Type Department Care Team Description 10/15/2023 SCAN [facility] 175 [facility] [address] [place] [phone] Lorie Moore, DONN 1515 [facility] [place] [address] Social History Tobacco Use Types Packs/Day Years Used Date Smoking Tobacco: Never Smokeless Tobacco: Never Alcohol Use Standard Drinks/Week Comments No 0 (1 standard drink = 0.6 oz pur e alcohol) Education Answer Date Recorded What is the highest level of school you have completed or the highest degree you have received? 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, DRILLING MACHINE RUNNER, CHANDRAKANT) 06/14/2020 Sex Assigned at Date Recorded Female 08/03/2020 10:16 PM EDT Job Start Date Occupation Industry Not on file Not on file Not on file documented as of this encounter Plan of Treatment Not on file documented as of this encounter Visit Diagnoses Not on filedocumented in this encounter Care Teams Supervisor Benzene Refining Relationship Specialty Start Date End Date Ora Ronquillo MD [address] [place] [address] PCP - General Internal Medicine 10/11/21 Jl Mendez MD [address] [place] [address] Dr Montiel [address] [place] [address] Specialist Cardiovascular Disease 10/13/21 Jannette Boudreaux MD [address] [address] Surgeon Neurosurgery 04/07/22 Tenisha Mendieta PA-C [address] [address] Specialist Neurosurgery 04/07/22 Julio Monk PA-C [address] [facility] 300 [place] [address] Specialist Neurosurgery 04/07/22 Luis Armando Eller MD [address] [address] Specialist ORTHOPEDIC SURGERY 10/01/23 Jayesh Pineda MD 305 [place] [address] Specialist Endocrinology 10/01/23 Kelsi Tejada MD 305 [place] [address] Specialist Allergy & Immunology 10/01/23 Pretty Le MD 175 [facility] 200 [place] [address] Specialist Pulmonology 10/01/23 Vesta Michael PA-C 300 [facility] 210 [place] [address] Specialist Vascular Surgery 10/01/23 [facility] 46 [place] [address] Specialist Optometry 10/01/23 documented as of this encounter
--- OUTSIDE RECORDS SUMMARY | 2024-04-22 10:13 | XMS_ITS | Encounter Summary ---
Author Organization [facility] Address [address] [place] [address] Care Team Providers Care Ems Coordinator Name Role Phone Teressa Solis DO Primary Care Pro vider Unavailable Mina Pretty DO Primary Care Provider Shweta Cronin MD Primary Care Provider Ora Diaz MD Primary Care Prov ider Jl Mendez MD Unavailable Jannette Boudreaux MD Unavailable [phone] Tenisha Mendieta PA-C Unavailable Julio Monk PA-C Unavailable Luis Armando Eller MD Unavailable [phone] Jayesh Pineda MD Unavailable Kelsi Tejada MD Unavailable Unavailable Pretty Le MD Unavailable Vseta Michael PA-C Unavailable [phone] [facility] Unavailable [phone] Encounter Details Date Type Department Care Team Description 06/23/2015 Hospital Medical Records [address] [place] [address] Phoebe Crain MD Social History Tobacco Use Types Packs/Day Years Used Date Smoking Tobacco: Never Smokeless Tobacco: Never Alcohol Use Standard Drinks/Week Comments No 0 (1 standard drink = 0.6 oz pur e alcohol) Education Answer Date Recorded What is the highest level of school you have completed or the highest degree you have received? 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, TEACHER TUTOR, CHANDRAKANT) 06/14/2020 Sex Assigned at Date Recorded Female 08/03/2020 10:16 PM EDT Job Start Date Occupation Industry Not on file Not on file Not on file documented as of this encounter Plan of Treatment Not on file documented as of this encounter Visit Diagnoses Not on filedocumented in this encounter Care Teams Ems Coordinator Relationship Specialty Start Date End Date Teressa Solis DO PCP - General Internal Medicine 12/18/13 09/15/20 Mina Pretty DO PCP - General Internal Medicine 09/16/20 Shweta Boucher MD PCP - General Internal Medicine 01/12/21 10/10/21 Ora Ronquillo MD [address] [place] [address] PCP - General Internal Medicine 10/11/21 Jl Mendez MD [address] [place] [address] Dr Mont[address] [place] [address] Specialist Cardiovascular Disease 10/13/21 Jannette Boudreaux MD [address] [address] Surgeon Neurosurgery 04/07/22 Tenisha Mendieta PA-C [address] [address] Specialist Neurosurgery 04/07/22 Julio Monk PA-C [address] [address] Specialist Neurosurgery 04/07/22 Luis Armando Eller MD [address] [address] Specialist ORTHOPEDIC SURGERY 10/01/23 Jayesh Pineda MD [address] [place] [address] Specialist Endocrinology 10/01/23 Kelsi Tejada MD 305 [place] [address] Specialist Allergy & Immunology 10/01/23 Pretty Le MD 175 [facility] [address] [place] [address] Specialist Pulmonology 10/01/23 Vesta Michael PA-C 300 [facility] 210 [place] [address] Specialist Vascular Surgery 10/01/23 [facility] 46 [place] [address] Specialist Optometry 10/01/23 documented as of this encounter
--- OUTSIDE RECORDS SUMMARY | 2024-04-22 10:13 | XMS_ITS | Encounter Summary ---
Author Organization [facility] Address [address] [place] [address] Care Team Providers Care Photo Mask Inspector Name Role Phone Ora Ronquillo MD Primary Care Prov ider Jl Mendez MD Unavailable Jannette Boudreaux MD Unavailable [phone] Tenisha Mendieta PA-C Unavailable [phone] Julio Monk PA-C Unavailable Luis Armando Eller MD Unavailable [phone] Jayesh Pineda MD Unavailable Kelsi Tejada MD Unavailable Unavailable Pretty Le MD Unavailable Vesta Michael PA-C Unavailable [phone] [facility] Unavailable [phone] Encounter Details Date Type Department Care Team Description 11/19/2023 SCAN [facility] Medical [facility] 175 [facility] [address] [place] [phone] Lorie Moore, DONN 15[address] [facility] [place] [address] Social History Tobacco Use Types Packs/Day Years Used Date Smoking Tobacco: Never Smokeless Tobacco: Never Alcohol Use Standard Drinks/Week Comments No 0 (1 standard drink = 0.6 oz pur e alcohol) Education Answer Date Recorded What is the highest level of school you have completed or the highest degree you have received? 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, DRAFTER STRUCTURAL, CHANDRAKANT) 06/14/2020 Sex Assigned at Date Recorded Female 08/03/2020 10:16 PM EDT Job Start Date Occupation Industry Not on file Not on file Not on file documented as of this encounter Plan of Treatment Not on file documented as of this encounter Visit Diagnoses Not on filedocumented in this encounter Care Teams Photo Mask Inspector Relationship Specialty Start Date End Date Ora Ronquillo MD [address] [place] [address] PCP - General Internal Medicine 10/11/21 Jl Mendez MD [address] [place] [address] Dr Mont[address] [place] [address] Specialist Cardiovascular Disease 10/13/21 Jannette Boudreaux MD [address] [address] Surgeon Neurosurgery 04/07/22 Tenisha Mendieta PA-C [address] [address] Specialist Neurosurgery 04/07/22 Julio Monk PA-C 175 [facility] 300 [place] [address] Specialist Neurosurgery 04/07/22 Luis Armando Eller MD [address] [address] Specialist ORTHOPEDIC SURGERY 10/01/23 Jayesh Pineda MD 305 [place] [address] Specialist Endocrinology 10/01/23 Kelsi Tejada MD 305 [place] [address] Specialist Allergy & Immunology 10/01/23 Pretty Le MD 175 [facility] 200 [place] [address] Specialist Pulmonology 10/01/23 Vesta Michael PA-C 300 [facility] 210 [place] [address] Specialist Vascular Surgery 10/01/23 [facility] 46 [place] [address] Specialist Optometry 10/01/23 documented as of this encounter
--- OUTSIDE RECORDS SUMMARY | 2024-04-22 10:13 | XMS_ITS | Encounter Summary ---
Author Organization [facility] Address [address] [place] [address] Care Team Providers Care Product Applications Engineer Name Role Phone Ora Ronquillo MD Primary Care Prov ider Jl Mendez MD Unavailable Jannette Boudreaux MD Unavailable [phone] Tenisha Mendieta PA-C Unavailable [phone] Julio Monk PA-C Unavailable [phone] Luis Armando Eller MD Unavailable [phone] Jayesh Pineda MD Unavailable Kelsi Tejada MD Unavailable Unavailable Pretty Le MD Unavailable Vesta Michael PA-C Unavailable [facility] Unavailable Encounter Details Date Type Department Care Team Description 10/08/2023 SCAN [facility] Medical [facility] 175 [facility] [address] [place] [phone] Lorie Moore, DONN 1515 [facility] [place] [address] Social History Tobacco Use Types Packs/Day Years Used Date Smoking Tobacco: Never Smokeless Tobacco: Never Alcohol Use Standard Drinks/Week Comments No 0 (1 standard drink = 0.6 oz pur e alcohol) Education Answer Date Recorded What is the highest level of school you have completed or the highest degree you have received? 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, WEIGHT COUNT OPERATOR, CHANDRAKANT) 06/14/2020 Sex Assigned at Date Recorded Female 08/03/2020 10:16 PM EDT Job Start Date Occupation Industry Not on file Not on file Not on file documented as of this encounter Plan of Treatment Not on file documented as of this encounter Visit Diagnoses Not on filedocumented in this encounter Care Teams Product Applications Engineer Relationship Specialty Start Date End Date Ora Ronquillo MD 444 [place] [address] PCP - General Internal Medicine 10/11/21 Jl Mendez MD [address] [place] [address] Dr Mont[address] [place] [address] Specialist Cardiovascular Disease 10/13/21 Jannette Boudreaux MD [address] [address] Surgeon Neurosurgery 04/07/22 Tenisha Mendieta PA-C [address] [address] Specialist Neurosurgery 04/07/22 Julio Monk PA-C 175 [facility] 300 [place] [address] Specialist Neurosurgery 04/07/22 Luis Armando Eller MD [address] [address] Specialist ORTHOPEDIC SURGERY 10/01/23 Jayesh Pineda MD 305 [place] [address] Specialist Endocrinology 10/01/23 Kelsi Tejada MD 305 [place] [address] Specialist Allergy & Immunology 10/01/23 Pretty Le MD 175 [facility] 200 [place] [address] Specialist Pulmonology 10/01/23 Vesta Michael PA-C 300 [facility] 210 [place] [address] Specialist Vascular Surgery 10/01/23 [facility] 46 [place] [address] Specialist Optometry 10/01/23 documented as of this encounter
--- OUTSIDE RECORDS SUMMARY | 2024-04-22 10:13 | XMS_ITS | Encounter Summary ---
Author Organization [facility] Address [address] [place] [address] Care Team Providers Care Seasonal Clerk Name Role Phone Ora Ronquillo MD Primary Care Prov ider Jl Mendez MD Unavailable Jannette Boudreaux MD Unavailable [phone] Tenisha Mendieta PA-C Unavailable [phone] Julio Monk PA-C Unavailable Luis Armando Eller MD Unavailable [phone] Jayesh Pineda MD Unavailable Kelsi Teajda MD Unavailable Unavailable Pretty Le MD Unavailable Vesta Michael PA-C Unavailable [phone] [facility] Unavailable [phone] Encounter Details Date Type Department Care Team Description 11/02/2023 SCAN [facility] Medical [facility] 175 [facility] [address] [place] [phone] Lorie Moore, DONN 1515 [facility] [place] [address] Social History Tobacco Use Types Packs/Day Years Used Date Smoking Tobacco: Never Smokeless Tobacco: Never Alcohol Use Standard Drinks/Week Comments No 0 (1 standard drink = 0.6 oz pur e alcohol) Education Answer Date Recorded What is the highest level of school you have completed or the highest degree you have received? 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, SECONDARY EDUCATION PROFESSOR, CHANDRAKANT) 06/14/2020 Sex Assigned at Date Recorded Female 08/03/2020 10:16 PM EDT Job Start Date Occupation Industry Not on file Not on file Not on file documented as of this encounter Plan of Treatment Not on file documented as of this encounter Visit Diagnoses Not on filedocumented in this encounter Care Teams Seasonal Clerk Relationship Specialty Start Date End Date Ora Ronquillo MD 444 [place] [address] PCP - General Internal Medicine 10/11/21 Jl Mendez MD [address] [place] [address] Dr [address] [place] [address] Specialist Cardiovascular Disease 10/13/21 Jannette Boudreaux MD [address] [address] Surgeon Neurosurgery 04/07/22 Tenisha Mendieta PA-C [address] [address] Specialist Neurosurgery 04/07/22 Julio Monk PA-C 175 [facility] 300 [place] [address] Specialist Neurosurgery 04/07/22 Luis Armando Eller MD [address] [address] Specialist ORTHOPEDIC SURGERY 10/01/23 Jayesh Pineda MD 305 [place] [address] Specialist Endocrinology 10/01/23 Kelsi Tejada MD 305 [place] [address] Specialist Allergy & Immunology 10/01/23 Pretty Le MD 175 [facility] 200 [place] [address] Specialist Pulmonology 10/01/23 Vesta Michael PA-C 300 [facility] 210 [place] [address] Specialist Vascular Surgery 10/01/23 [facility] 46 [place] [address] Specialist Optometry 10/01/23 documented as of this encounter
--- OUTSIDE RECORDS SUMMARY | 2024-04-22 10:13 | XMS_ITS | Encounter Summary ---
Author Organization [facility] Address [address] [place] [address] Care Team Providers Care Hatchery Manager Name Role Phone Ora Ronquillo MD Primary Care Prov ider Jl Mendez MD Unavailable Jannette Boudreaux MD Unavailable [phone] Tenisha Mendieta-C Unavailable Julio Monk-C Unavailable [phone] Luis Armando Eller MD Unavailable [phone] Jayesh Pineda MD Unavailable Kelsi Tejada MD Unavailable Unavailable Pretty Le MD Unavailable Vesta Michael PA-C Unavailable [facility] Unavailable [phone] Encounter Details Date Type Department Care Team Description 10/16/2023 [facility] Records [facility] Medical [facility] [address] [phone] Luis Armando Eller MD [address] [phone] Social History Tobacco Use Types Packs/Day Years Used Date Smoking Tobacco: Never Smokeless Tobacco: Never Alcohol Use Standard Drinks/Week Comments No 0 (1 standard drink = 0.6 oz pur e alcohol) Education Answer Date Recorded What is the highest level of school you have completed or the highest degree you have received? 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, ASSISTED LIVING NURSING DIRECTOR, CHANDRAKANT) 06/14/2020 Sex Assigned at Date Recorded Female 08/03/2020 10:16 PM EDT Job Start Date Occupation Industry Not on file Not on file Not on file documented as of this encounter Plan of Treatment Not on file documented as of this encounter Visit Diagnoses Not on filedocumented in this encounter Care Teams Hatchery Manager Relationship Specialty Start Date End Date Ora Ronquillo MD 444 [place] [address] PCP - General Internal Medicine 10/11/21 Jl Mendez MD [address] [place] [address] Dr Mont[address] [place] [address] Specialist Cardiovascular Disease 10/13/21 Jannette Boudreaux MD [address] [address] Surgeon Neurosurgery 04/07/22 Tenisha Mendieta PA-C [address] [address] Specialist Neurosurgery 04/07/22 Julio Monk PA-C [address] [address] Specialist Neurosurgery 04/07/22 Luis Armando Eller MD [address] [address] Specialist ORTHOPEDIC SURGERY 10/01/23 Jayesh Pineda MD 305 [place] [address] Specialist Endocrinology 10/01/23 Kelsi Tejada MD 305 [place] [address] Specialist Allergy & Immunology 10/01/23 Pretty Le MD 175 [facility] 200 [place] [address] Specialist Pulmonology 10/01/23 Vesta Michael PA-C 300 [facility] 210 [place] [address] Specialist Vascular Surgery 10/01/23 [facility] 46 [place] [address] Specialist Optometry 10/01/23 documented as of this encounter
--- OUTSIDE RECORDS SUMMARY | 2024-04-22 10:13 | XMS_ITS | Encounter Summary ---
Author Organization [facility] Address [address] [place] [address] Care Team Providers Care Sweatband Separator Name Role Phone Ora Ronquillo MD Primary Care Prov ider Jl Mendez MD Unavailable Jannette Boudreaux MD Unavailable [phone] Tenisha Mendieta-C Unavailable Julio Monk PA-C Unavailable Luis Armando Eller MD Unavailable [phone] Jayesh Pineda MD Unavailable Kelsi Tejada MD Unavailable Unavailable Pretty Le MD Unavailable Vesta Michael PA-C Unavailable [facility] Unavailable [phone] Encounter Details Date Type Department Care Team Description 11/14/2023 SCAN [facility] Medical [facility] 175 [facility] [address] [place] [phone] Lorie Moore, DONN 1515 [facility] [place] [address] Social History Tobacco Use Types Packs/Day Years Used Date Smoking Tobacco: Never Smokeless Tobacco: Never Alcohol Use Standard Drinks/Week Comments No 0 (1 standard drink = 0.6 oz pur e alcohol) Education Answer Date Recorded What is the highest level of school you have completed or the highest degree you have received? 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, CLINICAL RESEARCH MONITOR, CHANDRAKANT) 06/14/2020 Sex Assigned at Date Recorded Female 08/03/2020 10:16 PM EDT Job Start Date Occupation Industry Not on file Not on file Not on file documented as of this encounter Plan of Treatment Not on file documented as of this encounter Visit Diagnoses Not on filedocumented in this encounter Care Teams Sweatband Separator Relationship Specialty Start Date End Date Ora Ronquillo MD 444 [place] [address] PCP - General Internal Medicine 10/11/21 Jl Mendez MD [address] [place] [address] Dr Mont[address] [place] [address] Specialist Cardiovascular Disease 10/13/21 Jannette Boudreaux MD [address] [address] Surgeon Neurosurgery 04/07/22 Tenisha Mendieta PA-C [address] [address] Specialist Neurosurgery 04/07/22 Julio Monk PA-C 175 [facility] 300 [place] [address] Specialist Neurosurgery 04/07/22 Luis Armando Eller MD [address] [address] Specialist ORTHOPEDIC SURGERY 10/01/23 Jayesh Pineda MD 305 [place] [address] Specialist Endocrinology 10/01/23 Kelsi Tejada MD 305 [place] [address] Specialist Allergy & Immunology 10/01/23 Pretty Le MD 175 [facility] 200 [place] [address] Specialist Pulmonology 10/01/23 Vesta Michael PA-C 300 [facility] 210 [place] [address] Specialist Vascular Surgery 10/01/23 [facility] 46 [place] [address] Specialist Optometry 10/01/23 documented as of this encounter
--- OUTSIDE RECORDS SUMMARY | 2024-04-22 10:14 | XMS_ITS | Encounter Summary ---
Author Organization [facility] Address [address] [place] [address] Care Team Providers Care Workers Compensation Analyst Name Role Phone Ora Ronquillo MD Primary Care Prov ider Jl Mendez MD Unavailable Jannette Boudreaux MD Unavailable [phone] Tenisha Mendieta PA-C Unavailable Julio Monk PA-C Unavailable [phone] Luis Armando Eller MD Unavailable [phone] Jayesh Pineda MD Unavailable Kelsi Tejada MD Unavailable Unavailable Pretty Le MD Unavailable Vesta Michael PA-C Unavailable [facility] Unavailable Encounter Details Date Type Department Care Team Description 06/21/2022 SCAN [facility] Medical [facility] Neurosurgery [place] 175 [facility] [address] [place] [phone] Tenisha Mendieta PA-C [address] [phone] Social History Tobacco Use Types Packs/Day Years Used Date Smoking Tobacco: Never Smokeless Tobacco: Never Alcohol Use Standard Drinks/Week Comments No 0 (1 standard drink = 0.6 oz pur e alcohol) Education Answer Date Recorded What is the highest level of school you have completed or the highest degree you have received? 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, CNC GRINDER, CHANDRAKANT) 06/14/2020 Sex Assigned at Date Recorded Female 08/03/2020 10:16 PM EDT Job Start Date Occupation Industry Not on file Not on file Not on file COVID-19 Exposure Response Date Recorded In the last 10 days, have yo u been in contact with someone who was confirmed or suspected to have Coronavirus/COVID-19? No / Unsure 06/23/2022 1:52 PM EDT documented as of this encounter Plan of Treatment Not on file documented as of this encounter Visit Diagnoses Not on filedocumented in this encounter Care Teams Workers Compensation Analyst Relationship Specialty Start Date End Date Ora Ronquillo MD [address] [place] [address] PCP - General Internal Medicine 10/11/21 Jl Mendez MD [address] [place] [address] Dr Mont[address] [place] [address] Specialist Cardiovascular Disease 10/13/21 Jannette Boudreaux MD [address] [address] Surgeon Neurosurgery 04/07/22 Tenisha Mendieta PA-C [address] [address] Specialist Neurosurgery 04/07/22 Julio Monk PA-C 175 [facility] [address] [place] [address] Specialist Neurosurgery 04/07/22 Luis Armando Eller MD [address] [address] Specialist ORTHOPEDIC SURGERY 10/01/23 Jayesh Pineda MD [address] [place] [address] Specialist Endocrinology 10/01/23 Kelsi Tejada MD 305 [place] [address] Specialist Allergy & Immunology 10/01/23 Pretty Le MD 175 [facility] [address] [place] [address] Specialist Pulmonology 10/01/23 Vesta Michael PA-C 300 [facility] 210 [place] [address] Specialist Vascular Surgery 10/01/23 [facility] 46 [place] [address] Specialist Optometry 10/01/23 documented as of this encounter
--- OUTSIDE RECORDS SUMMARY | 2024-04-22 10:14 | XMS_ITS | Encounter Summary ---
Author Organization [facility] Address [address] [place] [address] Care Team Providers Care Apprentice Electrician Name Role Phone Ora Ronquillo MD Primary Care Prov ider Jl Mendez MD Unavailable Jannette Boudreaux MD Unavailable [phone] Tenisha MendietaC Unavailable Julio Monk-C Unavailable Luis Armando Eller MD Unavailable [phone] Jayesh Pineda MD Unavailable Kelsi Tejada MD Unavailable Unavailable Pretty Le MD Unavailable Vesta Michael PA-C Unavailable [facility] Unavailable Encounter Details Date Type Department Care Team Description 04/12/2022 SCAN [facility] Medical [facility] Neurosurgery [place] 175 [facility] [address] [place] [phone] Jannette Boudreaux MD [address] [address] Social History Tobacco Use Types Packs/Day Years Used Date Smoking Tobacco: Never Smokeless Tobacco: Never Alcohol Use Standard Drinks/Week Comments No 0 (1 standard drink = 0.6 oz pur e alcohol) Education Answer Date Recorded What is the highest level of school you have completed or the highest degree you have received? 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, MILL ATTENDANT, CHANDRAKANT) 06/14/2020 Sex Assigned at Date Recorded Female 08/03/2020 10:16 PM EDT Job Start Date Occupation Industry Not on file Not on file Not on file COVID-19 Exposure Response Date Recorded In the last 10 days, have yo u been in contact with someone who was confirmed or suspected to have Coronavirus/COVID-19? No / Unsure 03/20/2022 1:40 PM EST documented as of this encounter Plan of Treatment Not on file documented as of this encounter Visit Diagnoses Not on filedocumented in this encounter Care Teams Apprentice Electrician Relationship Specialty Start Date End Date Ora Ronquillo MD [address] [place] [address] PCP - General Internal Medicine 10/11/21 Jl Mendez MD [address] [place] [address] Dr Montiel [address] [place] [address] Specialist Cardiovascular Disease 10/13/21 Jannette Boudreaux MD [address] [address] Surgeon Neurosurgery 04/07/22 Tenisha Mendieta PA-C [address] [address] Specialist Neurosurgery 04/07/22 Julio Monk PA-C [address] [address] Specialist Neurosurgery 04/07/22 Luis Armando Eller MD [address] [address] Specialist ORTHOPEDIC SURGERY 10/01/23 Jayesh Pineda MD [address] [place] [address] Specialist Endocrinology 10/01/23 Kelsi Tejada MD 305 [facility] [place] [address] Specialist Allergy & Immunology 10/01/23 Pretty Le MD 175 [facility] [address] [place] [address] Specialist Pulmonology 10/01/23 Vesta Michael PA-C 300 [facility] 210 [place] [address] Specialist Vascular Surgery 10/01/23 [facility] 46 [place], [place] [address] Specialist Optometry 10/01/23 documented as of this encounter
--- OUTSIDE RECORDS SUMMARY | 2024-04-22 10:14 | XMS_ITS | Encounter Summary ---
Author Organization [facility] Address [address] [place] [address] Care Team Providers Care Hydrochloric Acid Operator Name Role Phone Ora Ronquillo MD Primary Care Prov ider Jl Mendez MD Unavailable [phone] Jannette Boudreaux MD Unavailable [phone] Tenisha Mendieta-C Unavailable [phone] Julio oMnk PA-C Unavailable [phone] Luis Armando Eller MD Unavailable [phone] Jayesh Pineda MD Unavailable Kelsi Tejada MD Unavailable Unavailable Pretty Le MD Unavailable Vesta Michael PA-C Unavailable [phone] [facility] Unavailable Encounter Details Date Type Department Care Team Description 12/18/2023 SCAN [facility] Medical [facility] 175 [facility] [address] [place] [phone] Lorie Moore, DONN [address] [facility] [place] [address] Social History Tobacco Use Types Packs/Day Years Used Date Smoking Tobacco: Never Smokeless Tobacco: Never Alcohol Use Standard Drinks/Week Comments No 0 (1 standard drink = 0.6 oz pur e alcohol) Education Answer Date Recorded What is the highest level of school you have completed or the highest degree you have received? 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, HARBORMASTER, CHANDARKANT) 06/14/2020 Sex Assigned at Date Recorded Female 08/03/2020 10:16 PM EDT Job Start Date Occupation Industry Not on file Not on file Not on file documented as of this encounter Plan of Treatment Not on file documented as of this encounter Visit Diagnoses Not on filedocumented in this encounter Care Teams Hydrochloric Acid Operator Relationship Specialty Start Date End Date Ora Ronquillo MD [address] [place] [address] PCP - General Internal Medicine 10/11/21 Jl Mendez MD [address] [place] [address] Dr Mont[address] [place] [address] Specialist Cardiovascular Disease 10/13/21 Jannette Boudreaux MD [address] [address] Surgeon Neurosurgery 04/07/22 Tenisha Mendieta PA-C [address] [address] Specialist Neurosurgery 04/07/22 Julio Monk PA-C 175 [facility] 300 [place] [address] Specialist Neurosurgery 04/07/22 Luis Armando Eller MD [address] [address] Specialist ORTHOPEDIC SURGERY 10/01/23 Jayesh Pineda MD 305 [place] [address] Specialist Endocrinology 10/01/23 Kelsi Tejada MD 305 [place] [address] Specialist Allergy & Immunology 10/01/23 Pretty Le MD 175 [facility] 200 [place] [address] Specialist Pulmonology 10/01/23 Vesta Michael PA-C 300 [facility] 210 [place] [address] Specialist Vascular Surgery 10/01/23 [facility] 46 [place] [address] Specialist Optometry 10/01/23 documented as of this encounter
--- OUTSIDE RECORDS SUMMARY | 2024-04-22 10:14 | XMS_ITS | Encounter Summary ---
Author Organization [facility] Address [address] [place] [address] Care Team Providers Care Felt Puller Name Role Phone Teressa Solis DO Primary Care Pro vider Unavailable Mina Pretty DO Primary Care Provider Shweta Cronin MD Primary Care Provider Ora Diaz MD Primary Care Prov ider Jl Mendez MD Unavailable Jannette Boudreaux MD Unavailable [phone] Tenisha Mendieta PA-C Unavailable [phone] Julio Monk PA-C Unavailable Luis Armando Eller MD Unavailable [phone] Jayesh Pineda MD Unavailable Kelsi Tejada MD Unavailable Unavailable Pretty Le MD Unavailable Vesta Michael PA-C Unavailable [phone] [facility] Unavailable [phone] Encounter Details Date Type Department Care Team Description 04/21/2020 Security Guards Dispatcher Report Medical Records 4 [place] [address] Randy Domínguez MD Social History Tobacco Use [...] have Coronavirus / COVID-19? Unable to assess 03/25/2020 7:09 AM EST documented as of this encounter Plan of Treatment Not on file documented as of this encounter Visit Diagnoses Not on filedocumented in this encounter Care Teams Felt Puller Relationship Specialty Start Date End Date Teressa Solis DO PCP - General Internal Medicine 12/18/13 09/15/20 Mina Pretty DO PCP - General Internal Medicine 09/16/20 Shweta Boucher MD PCP - General Internal Medicine 01/12/21 10/10/21 Ora Ronquillo MD [address] [place] [address] PCP - General Internal Medicine 10/11/21 Jl Mendez MD [address] [place] [address] Dr Mont[address] [place] [address] Specialist Cardiovascular Disease 10/13/21 Jannette Boudreaux MD [address] [address] Surgeon Neurosurgery 04/07/22 Tenisha Mendieta PA-C [address] [address] Specialist Neurosurgery 04/07/22 Julio Monk PA-C [address] [address] Specialist Neurosurgery 04/07/22 Luis Armando Eller MD [address] [address] Specialist ORTHOPEDIC SURGERY 10/01/23 Jayesh Pineda MD [address] [place] [address] [place] [address] Specialist Endocrinology 10/01/23 Kelsi Tejada MD 305 [place] [address] Specialist Allergy & Immunology 10/01/23 Pretty Le MD 175 [facility] [address] [place] [address] Specialist Pulmonology 10/01/23 Vesta Michael PA-C 300 [facility] 210 [place] [address] Specialist Vascular Surgery 10/01/23 [facility] 46 [place] [address] Specialist Optometry 10/01/23 documented as of this encounter
--- OUTSIDE RECORDS SUMMARY | 2024-04-22 10:14 | XMS_ITS | Encounter Summary ---
Author Organization [facility] Address [address] [place] [address] Care Team Providers Care Boat Fueler Name Role Phone Ora Ronquillo MD Primary Care Prov ider Jl Mendez MD Unavailable [phone] Jannette Boudreaux MD Unavailable [phone] Tenisha Mendieta PA-C Unavailable [phone] Julio Monk PA-C Unavailable Luis Armando Eller MD Unavailable [phone] Jayesh Pineda MD Unavailable Kelsi Tejada MD Unavailable Unavailable Pretty Le MD Unavailable Vesta Michael PA-C Unavailable [facility] Unavailable Reason for Visit * Reason Onset Date Comments Note, Other 03/23/2022 Med Refill Encounter Details Date Type Department Care Team Description 03/23/2022 Refill Pulmonology - [place] 175 [facility] [address] [place] [address] Michael Saldana MD Note, Other (Med Refill) Social History Tobacco Use Types Packs/Day Years Used Date Smoking Tobacco: Never Smokeless Tobacco: Never Alcohol Use Standard Drinks/Week Comments No 0 (1 standard drink = 0.6 oz pur e alcohol) Education Answer Date Recorded What is the highest level of school you have completed or the highest degree you have received? 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, PAI GOW MANAGER, CHANDRAKANT) 06/14/2020 Sex Assigned at Date [...] PM EST documented as of this encounter Miscellaneous Notes * Telephone Encounter - Chata Palma - 03/23/2022 10:38 AM EST Patient would like script to be: E-PRESCRIBED/FAXED TO PHARMACY WHEN WAS THE PATIENT'S LAST APPOINTMENT IN ADULT MEDICINE? 10/03/21 WHEN WAS THE LAST TIME THE PATIENT SAW THEIR PCP? Same as above Does patient have an upcoming appointment? 04/06/22 (THE MEDICATION REQUESTED IS ON THE MED [...] N/A Patients current insurance carrier is: Payor: [facility] / Plan: [facility] / Product Type: MEDICAID RISK documented in this encounter Plan of Treatment Not on file documented as of this encounter Visit Diagnoses Diagnosis Moderate persistent asthma, unspecified whether complicated documented in this encounter Care Teams Boat Fueler Relationship Specialty Start Date End Date Ora Ronquillo MD [address] [place] [address] PCP - General Internal Medicine 10/11/21 Jl Mendez MD [address] [place] [address] Dr Mont[address] [place] [address] Specialist Cardiovascular Disease 10/13/21 Jannette Boudreaux MD 175 [facility] 300 [place] [address] Surgeon Neurosurgery 04/07/22 Tenisha Mendieta PA-C [address] [address] Specialist Neurosurgery 04/07/22 Julio Monk PA-C 175 [facility] 300 [place] [address] Specialist Neurosurgery 04/07/22 Luis Armando Eller MD [address] [address] Specialist ORTHOPEDIC SURGERY 10/01/23 Jayesh Pineda MD 305 [place] [address] Specialist Endocrinology 10/01/23 Kelsi Tejada MD 305 [place] [address] Specialist Allergy & Immunology 10/01/23 Pretty Le MD 175 [facility] 200 [place] [address] Specialist Pulmonology 10/01/23 Vesta Michael PA-C 300 [facility] 210 [place] [address] Specialist Vascular Surgery 10/01/23 [facility] 46 [place], [place] [address] Specialist Optometry 10/01/23 documented as of this encounter
--- OUTSIDE RECORDS SUMMARY | 2024-04-22 10:14 | XMS_ITS | Encounter Summary ---
Author Organization [facility] Address [address] [place] [address] Care Team Providers Care Security Site Supervisor Name Role Phone Ora Ronquillo MD Primary Care Prov ider Jl Mendez MD Unavailable [phone] Jannette Boudreaux MD Unavailable [phone] Tenisha MendietaC Unavailable Julio Monk-C Unavailable Luis Armando Eller MD Unavailable [phone] Jayesh Pineda MD Unavailable Kelsi Tejada MD Unavailable Unavailable Pretty Le MD Unavailable Vesta Michael PA-C Unavailable [facility] Unavailable [phone] Encounter Details Date Type Department Care Team Description 12/10/2023 SCAN [facility] Medical [facility] 175 [facility] [address] [place] [address] Luis Armando Eller MD 175 [facility] [address] [place], [place] [id number] Social History Tobacco Use Types Packs/Day Years Used Date Smoking Tobacco: Never Smokeless Tobacco: Never Alcohol Use Standard Drinks/Week Comments No 0 (1 standard drink = 0.6 oz pur e alcohol) Education Answer Date Recorded What is the highest level of school you have completed or the highest degree you have received? 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, BLACK LEATHER TRIMMER, CHANDRAKANT) 06/14/2020 Sex Assigned at Date Recorded Female 08/03/2020 10:16 PM EDT Job Start Date Occupation Industry Not on file Not on file Not on file documented as of this encounter Plan of Treatment Not on file documented as of this encounter Visit Diagnoses Not on filedocumented in this encounter Care Teams Security Site Supervisor Relationship Specialty Start Date End Date Ora Ronquillo MD 444 [place] [address] PCP - General Internal Medicine 10/11/21 Jl Mendez MD [address] [place] [address] Dr Montiel [address] [place] [address] Specialist Cardiovascular Disease 10/13/21 Jannette Boudreaux MD [address] [address] Surgeon Neurosurgery 04/07/22 Tenisha Mendieta PA-C [address] [address] Specialist Neurosurgery 04/07/22 Julio Monk PA-C [address] [address] Specialist Neurosurgery 04/07/22 Luis Armando Eller MD [address] [address] Specialist ORTHOPEDIC SURGERY 10/01/23 Jayesh Pineda MD 305 [place] [address] Specialist Endocrinology 10/01/23 Kelsi Tejada MD 305 [place] [address] Specialist Allergy & Immunology 10/01/23 Pretty Le MD 175 [facility] 200 [place] [address] Specialist Pulmonology 10/01/23 Vesta Michael PA-C 300 [facility] 210 [place] [address] Specialist Vascular Surgery 10/01/23 [facility] 46 [place] [address] Specialist Optometry 10/01/23 documented as of this encounter
--- OUTSIDE RECORDS SUMMARY | 2024-04-22 10:14 | XMS_ITS | Encounter Summary ---
Author Organization [facility] Address [address] [place] [address] Care Team Providers Care Soda Dry House Operator Name Role Phone Teressa Solis DO Primary Care Pro vider Unavailable Mina Pretty DO Primary Care Provider Shweta Cronin MD Primary Care Provider Ora Diaz MD Primary Care Prov ider Jl Mendez MD Unavailable Jannette Boudreaux MD Unavailable [phone] Tenisha Mendieta PA-C Unavailable Julio Monk PA-C Unavailable [phone] Luis Armando Eller MD Unavailable [phone] Jayesh Pineda MD Unavailable Kelsi Tejada MD Unavailable Unavailable Pretty Le MD Unavailable Vesta Michael PA-C Unavailable [phone] [facility] Unavailable [phone] Encounter Details Date Type Department Care Team Description 04/19/2020 Patent Prosecution Paralegal Report Medical Records 4 [place] [address] Jose Daniel Nguyễn MD Social History Tobacco Use Types Packs/Day [...] on filedocumented in this encounter Care Teams Soda Dry House Operator Relationship Specialty Start Date End Date Teressa Solis DO PCP - General Internal Medicine 12/18/13 09/15/20 Mina Pretty DO PCP - General Internal Medicine 09/16/20 Shweta Boucher MD PCP - General Internal Medicine 01/12/21 10/10/21 Ora Ronquillo MD [address] [place] [address] PCP - General Internal Medicine 10/11/21 Jl Mendez MD [address] [place] [address] Dr [address] [place] [address] Specialist Cardiovascular Disease 10/13/21 Jannette Boudreaux MD [address] [address] Surgeon Neurosurgery 04/07/22 Tenisha Mendieta PA-C [address] [address] Specialist Neurosurgery 04/07/22 Julio Monk PA-C 175 [facility] [address] [place] [address] Specialist Neurosurgery 04/07/22 Luis Armando Eller MD [address] [address] Specialist ORTHOPEDIC SURGERY 10/01/23 Jayesh Pineda MD [address] [place] [address] Specialist Endocrinology 10/01/23 Kelsi Tejada MD 305 [place] [address] Specialist Allergy & Immunology 10/01/23 Pretty Le MD 175 [facility] [address] [place] [address] Specialist Pulmonology 10/01/23 Vesta Michael PA-C 300 [facility] 210 [place] [address] Specialist Vascular Surgery 10/01/23 [facility] 46 [place] [address] Specialist Optometry 10/01/23 documented as of this encounter
--- OUTSIDE RECORDS SUMMARY | 2024-04-22 10:14 | XMS_ITS | Encounter Summary ---
Author Organization [facility] Address [address] [place] [address] Care Team Providers Care Priming Powder Premix Blender Name Role Phone Ora Ronquillo MD Primary Care Prov ider Jl Mendez MD Unavailable [phone] Jannette Boudreaux MD Unavailable [phone] Tenisha Mendieta PA-C Unavailable Julio Monk PA-C Unavailable Luis Armando Eller MD Unavailable [phone] Jayesh Pineda MD Unavailable Kelsi Tejada MD Unavailable Unavailable Pretty Le MD Unavailable Vesta Michael PA-C Unavailable [phone] [facility] Unavailable [phone] Encounter Details Date Type Department Care Team Description 07/12/2022 Refill Pulmonology - [place] 175 [facility] [address] [place] [address] Michael Saldana MD Social History Tobacco Use Types Packs/Day Years Used Date Smoking Tobacco: Never Smokeless Tobacco: Never Alcohol Use Standard Drinks/Week Comments No 0 (1 standard drink = 0.6 oz pur e alcohol) Education Answer Date Recorded What is the highest level of school you have completed or the highest degree you have received? 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, DIGITAL INTERN, CHANDRAKANT) 06/14/2020 Sex Assigned at Date Recorded Female 08/03/2020 10:16 PM EDT Job Start Date Occupation Industry Not on file Not on file Not on file COVID-19 Exposure Response Date Recorded In the last 10 days, have yo u been in contact with someone who was confirmed or suspected to have Coronavirus/COVID-19? No / Unsure 07/12/2022 10:05 AM EDT documented as of this encounter Plan of Treatment Not on file documented as of this encounter Visit Diagnoses Diagnosis Moderate persistent asthma, unspecified whether complicated documented in this encounter Care Teams Priming Powder Premix Blender Relationship Specialty Start Date End Date Ora Ronquillo MD 444 [place] [address] PCP - General Internal Medicine 10/11/21 Jl Mendez MD [address] [place] [address] Dr Mont[address] [place] [address] Specialist Cardiovascular Disease 10/13/21 Jannette Boudreaux MD [address] [address] Surgeon Neurosurgery 04/07/22 Tenisha Mendieta PA-C [address] [address] Specialist Neurosurgery 04/07/22 Julio Monk PA-C [address] [address] Specialist Neurosurgery 04/07/22 Luis Armando Eller MD [address] [address] Specialist ORTHOPEDIC SURGERY 10/01/23 Jayesh Pineda MD 305 [place] [address] Specialist Endocrinology 10/01/23 Kelsi Tejada MD 305 [place] [address] Specialist Allergy & Immunology 10/01/23 Pretty Le MD 175 [facility] [address] [place] [address] Specialist Pulmonology 10/01/23 Vesta Michael PA-C [address] [facility] [address] [place] [address] Specialist Vascular Surgery 10/01/23 [facility] 46 [place] [address] Specialist Optometry 10/01/23 documented as of this encounter
--- OUTSIDE RECORDS SUMMARY | 2024-04-22 10:14 | XMS_ITS | Encounter Summary ---
Author Organization [facility] Address [address] [place] [address] Care Team Providers Care Child Psychiatrist Name Role Phone Ora Ronquillo MD Primary Care Prov ider Jl Mendez MD Unavailable [phone] Jannette Boudreaux MD Unavailable [phone] Tenisha Mendieta PA-C Unavailable Julio Monk PA-C Unavailable [phone] Luis Armando Eller MD Unavailable [phone] Jayesh Pineda MD Unavailable Kelsi Tejada MD Unavailable Unavailable Pretty Le MD Unavailable Vesta Michael PA-C Unavailable [facility] Unavailable [phone] Encounter Details Date Type Department Care Team Description 04/10/2022 SCAN [facility] Medical [facility] Neurosurgery [place] 175 [facility] [address] [place] [address] Tenisha Mendieta PA-C [address] [id number] Social History Tobacco Use Types Packs/Day Years Used Date Smoking Tobacco: Never Smokeless Tobacco: Never Alcohol Use Standard Drinks/Week Comments No 0 (1 standard drink = 0.6 oz pur e alcohol) Education Answer Date Recorded What is the highest level of school you have completed or the highest degree you have received? 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, MARKET ASSET PROTECTION MANAGER, CHANDRAKANT) 06/14/2020 Sex Assigned at Date [...] on filedocumented in this encounter Care Teams Child Psychiatrist Relationship Specialty Start Date End Date Ora Ronquillo MD [address] [place] [address] PCP - General Internal Medicine 10/11/21 Jl Mendez MD [address] [place] [address] Dr Mont[address] [place] [address] Specialist Cardiovascular Disease 10/13/21 Jannette Boudreaux MD [address] [address] Surgeon Neurosurgery 04/07/22 Tenisha Mendieta PA-C [address] [address] Specialist Neurosurgery 04/07/22 Julio Monk PA-C 175 [facility] [address] [place] [address] Specialist Neurosurgery 04/07/22 Luis Armando Eller MD [address] [address] Specialist ORTHOPEDIC SURGERY 10/01/23 Jayesh Pineda MD [address] [place] [address] Specialist Endocrinology 10/01/23 Kelsi Tejada MD 305 [place] [address] Specialist Allergy & Immunology 10/01/23 Pretty Le MD 175 [facility] [address] [place] [address] Specialist Pulmonology 10/01/23 Vesta Michael PA-C 300 [facility] 210 [place] [address] Specialist Vascular Surgery 10/01/23 [facility] 46 [place] [address] Specialist Optometry 10/01/23 documented as of this encounter
--- OUTSIDE RECORDS SUMMARY | 2024-04-22 10:14 | XMS_ITS | Encounter Summary ---
Author Organization [facility] Address [address] [place] [address] Care Team Providers Care Principal Architectural Firm Name Role Phone Ora Ronquillo MD Primary Care Prov ider Jl Mendez MD Unavailable Jannette Boudreaux MD Unavailable [phone] Tenisha MendietaC Unavailable Julio Monk-C Unavailable Luis Armando Eller MD Unavailable [phone] Jayesh Pineda MD Unavailable Kelsi Tejada MD Unavailable Unavailable Pretty Le MD Unavailable Vesta Michael PA-C Unavailable [facility] Unavailable [phone] Encounter Details Date Type Department Care Team Description 12/19/2023 SCAN [facility] Medical [facility] 175 [facility] [address] [place] [address] Luis Armando Eller MD 175 [facility] [address] [place], [place] [phone] Social History Tobacco Use Types Packs/Day Years Used Date Smoking Tobacco: Never Smokeless Tobacco: Never Alcohol Use Standard Drinks/Week Comments No 0 (1 standard drink = 0.6 oz pur e alcohol) Education Answer Date Recorded What is the highest level of school you have completed or the highest degree you have received? 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, REGULATORY COMPLIANCE MANAGER, CHANDRAKANT) 06/14/2020 Sex Assigned at Date Recorded Female 08/03/2020 10:16 PM EDT Job Start Date Occupation Industry Not on file Not on file Not on file documented as of this encounter Plan of Treatment Not on file documented as of this encounter Visit Diagnoses Not on filedocumented in this encounter Care Teams Principal Architectural Firm Relationship Specialty Start Date End Date Ora Ronquillo MD 444 [place] [address] PCP - General Internal Medicine 10/11/21 Jl Mendez MD [address] [place] [address] Dr Mont[address] [place] [address] Specialist Cardiovascular Disease 10/13/21 Jannette Boudreaux MD [address] [address] Surgeon Neurosurgery 04/07/22 Tenisha Mendieta PA-C [address] [address] Specialist Neurosurgery 04/07/22 Julio Monk PA-C [address] [address] Specialist Neurosurgery 04/07/22 Luis Armando Eller MD [address] [address] Specialist ORTHOPEDIC SURGERY 10/01/23 Jayesh Pineda MD 305 [place] [address] Specialist Endocrinology 10/01/23 Kelsi Tejada MD 305 [place] [address] Specialist Allergy & Immunology 10/01/23 Pretty Le MD 175 [facility] 200 [place] [address] Specialist Pulmonology 10/01/23 Vesta Michael PA-C 300 [facility] 210 [place] [address] Specialist Vascular Surgery 10/01/23 [facility] 46 [place] [address] Specialist Optometry 10/01/23 documented as of this encounter
--- OUTSIDE RECORDS SUMMARY | 2024-04-22 10:14 | XMS_ITS | Encounter Summary ---
Author Organization [facility] Address [address] [place] [address] Care Team Providers Care Compressor Operator Portable Name Role Phone Ora Ronquillo MD Primary Care Prov ider Jl Mendez MD Unavailable Jannette Boudreaux MD Unavailable [phone] Tenisha Mendieta-C Unavailable Julio Monk-C Unavailable [phone] LuisA rmando Eller MD Unavailable [phone] Jayesh Pineda MD Unavailable Kelsi Tejada MD Unavailable Unavailable Pretty Le MD Unavailable Vesta Michael PA-C Unavailable [facility] Unavailable Reason for Visit * Reason Onset Date Comments Surgery (Schedule) 11/22/2023 Encounter Details Date Type Department Care Team Description 11/22/2023 Telephone [facility] Medical [facility] 175 [facility] [address] [place] [address] Luis Armando Eller MD 175 [facility] [address] [place] [address] [id number] Surgery (Schedule) Social History Tobacco Use Types Packs/Day Years Used Date Smoking Tobacco: Never Smokeless Tobacco: Never Alcohol Use Standard Drinks/Week Comments No 0 (1 standard drink = 0.6 oz pur e alcohol) Education Answer Date Recorded What is the highest level of school you have completed or the highest degree you have received? 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, WATERPROOF MATERIAL FOLDER, CHANDRAKANT) 06/14/2020 Sex Assigned at Date Recorded Female 08/03/2020 10:16 PM EDT Job Start Date Occupation Industry Not on file Not on file Not on file documented as of this encounter Miscellaneous Notes * Telephone Encounter - Dejah Wilde - 11/22/2023 1:01 PM EDT Lalo- Patient called, with her daughter translating questioning if perhaps she can stay in the hospital for a couple days, and not come home directly after surgery, as patient reports she has a few small children in the house she cares for, and she doesn't want things to 'get messed up with her repaired left RTC on 12/06/23. I did tell patient and her daughter that I would send a message. Please advise. Thanks, Dejha documented in this encounter Plan of Treatment Not on file documented as of this encounter Visit Diagnoses Not on filedocumented in this encounter Care Teams Compressor Operator Portable Relationship Specialty Start Date End Date Ora Ronquillo MD [address] [place] [address] PCP - General Internal Medicine 10/11/21 Jl Mendez MD [address] [place] [address] Dr Mont[address] [place] [address] Specialist Cardiovascular Disease 10/13/21 Jannette Boudreaux MD 175 [facility] [address] [place] [address] Surgeon Neurosurgery 04/07/22 Tenisha Mendieta PA-C 175 [facility] [address] [place] [address] Specialist Neurosurgery 04/07/22 Julio Monk PA-C 175 [facility] 300 [place] [address] Specialist Neurosurgery 04/07/22 Luis Armando Eller MD [address] [facility] [address] [place] [address] Specialist ORTHOPEDIC SURGERY 10/01/23 Jayesh Pineda MD 305 [place] [address] Specialist Endocrinology 10/01/23 Kelsi Tejada MD 305 [place] [address] Specialist Allergy & Immunology 10/01/23 Pretty Le MD 175 [facility] 200 [place] [phone] Specialist Pulmonology 10/01/23 Vesta Michael PA-C 300 [facility] 210 [place] [address] Specialist Vascular Surgery 10/01/23 [facility] 46 [place] [address] Specialist Optometry 10/01/23 documented as of this encounter
--- OUTSIDE RECORDS SUMMARY | 2024-04-22 10:14 | XMS_ITS | Encounter Summary ---
Author Organization [facility] Address [address] [place] [address] Care Team Providers Care Billing And Quality Technician Name Role Phone Ora Ronquillo MD Primary Care Prov ider Jl Mendez MD Unavailable [phone] Jannette Boudreaux MD Unavailable [phone] Tenisha MendietaC Unavailable Julio Monk-C Unavailable [phone] Luis Armando Eller MD Unavailable [phone] Jayesh Pineda MD Unavailable Kelsi Tejada MD Unavailable Unavailable Pretty Le MD Unavailable Vesta Michael PA-C Unavailable [phone] [facility] Unavailable Encounter Details Date Type Department Care Team Description 12/06/2023 SCAN [facility] 175 [facility] [address] [place] [address] Luis Armando Eller MD 175 [facility] [address] [place], [place] [id number] Social History Tobacco Use Types Packs/Day Years Used Date Smoking Tobacco: Never Smokeless Tobacco: Never Alcohol Use Standard Drinks/Week Comments No 0 (1 standard drink = 0.6 oz pur e alcohol) Education Answer Date Recorded What is the highest level of school you have completed or the highest degree you have received? 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, SUPPLY TEACHER, CHANDRAKANT) 06/14/2020 Sex Assigned at Date Recorded Female 08/03/2020 10:16 PM EDT Job Start Date Occupation Industry Not on file Not on file Not on file documented as of this encounter Plan of Treatment Not on file documented as of this encounter Visit Diagnoses Not on filedocumented in this encounter Care Teams Billing And Quality Technician Relationship Specialty Start Date End Date Ora Ronquillo MD [address] [place] [address] PCP - General Internal Medicine 10/11/21 Jl Mendez MD [address] [place] [address] Dr Mont[address] [place] [address] Specialist Cardiovascular Disease 10/13/21 Jannette Boudreaux MD [address] [address] Surgeon Neurosurgery 04/07/22 Tenisha Mendieta PA-C [address] [address] Specialist Neurosurgery 04/07/22 Julio Monk PA-C [address] [address] Specialist Neurosurgery 04/07/22 Luis Armando Eller MD [address] [address] Specialist ORTHOPEDIC SURGERY 10/01/23 Jayesh Pineda MD 305 [place] [address] Specialist Endocrinology 10/01/23 Kelsi Tejada MD 305 [place] [address] Specialist Allergy & Immunology 10/01/23 Pretty Le MD 175 [facility] 200 [place] [address] Specialist Pulmonology 10/01/23 Vesta Michael PA-C 300 [facility] [address] [place] [address] Specialist Vascular Surgery 10/01/23 [facility] 46 [place] [address] Specialist Optometry 10/01/23 documented as of this encounter
--- OUTSIDE RECORDS SUMMARY | 2024-04-22 10:15 | XMS_ITS | Encounter Summary ---
Author Organization [facility] Address [address] [place] [address] Care Team Providers Care Supervisor Fusing Room Name Role Phone Teressa Solis DO Primary Care Pro vider Unavailable Mina Pretty DO Primary Care Provider Ailyn Shweta Pretty MD Primary Care Provider Ora Diaz MD Primary Care Prov ider Jl Mendez MD Unavailable Jannette Boudreaux MD Unavailable [phone] Tenisha Mendieta PA-C Unavailable Julio Monk PA-C Unavailable [phone] Luis Armando Eller MD Unavailable [phone] Jayesh Pineda MD Unavailable Kelsi Tejada MD Unavailable Unavailable Pretty Le MD Unavailable Vesta Michael PA-C Unavailable [facility] Unavailable Encounter Details Date Type Department Care Team Description 08/19/2019 Refill Gastroenterology [facility] 175 [facility] [address] [place] [address] Luis Armando Staton MD Social [...] filedocumented in this encounter Care Teams Supervisor Fusing Room Relationship Specialty Start Date End Date Teressa Solis DO PCP - General Internal Medicine 12/18/13 09/15/20 Mina Pretty DO PCP - General Internal Medicine 09/16/20 Shweta Boucher MD PCP - General Internal Medicine 01/12/21 10/10/21 Ora Ronquillo MD [address] [place] [address] PCP - General Internal Medicine 10/11/21 Jl Mendez MD [address] [place] [address] Dr Mont[address] [place] [address] Specialist Cardiovascular Disease 10/13/21 Jannette Boudreaux MD [address] [address] Surgeon Neurosurgery 04/07/22 Tenisha Mendieta PA-C [address] [address] Specialist Neurosurgery 04/07/22 Julio Monk PA-C [address] [address] Specialist Neurosurgery 04/07/22 Luis Armando Eller MD [address] [address] Specialist ORTHOPEDIC SURGERY 10/01/23 Jayesh Pineda MD 305 [place] [address] Specialist Endocrinology 10/01/23 Kelsi Tejada MD 305 [facility] [place] [address] Specialist Allergy & Immunology 10/01/23 Pretty Le MD 175 [facility] [address] [place] [address] Specialist Pulmonology 10/01/23 Vesta Michael PA-C 300 [facility] 210 [place] [address] Specialist Vascular Surgery 10/01/23 [facility] 46 [place] [address] Specialist Optometry 10/01/23 documented as of this encounter
--- OUTSIDE RECORDS SUMMARY | 2024-04-22 10:15 | XMS_ITS | Encounter Summary ---
Author Organization [facility] Address [address] [place] [address] Care Team Providers Care Belt Molder Name Role Phone Shweta Tellez MD Primary Care Provider Ora Diaz MD Primary Care Prov ider Jl Mendez MD Unavailable [phone] Jannette Boudreaux MD Unavailable [phone] Tenisha Mendieta PA-C Unavailable [phone] Julio Monk PA-C Unavailable Luis Armando Eller MD Unavailable [phone] Jayesh Pineda MD Unavailable Kelsi Tejada MD Unavailable Unavailable Pretty Le MD Unavailable Vesta Michael-C Unavailable [phone] [facility] Unavailable [phone] Encounter Details Date Type Department Care Team Description 09/09/2021 Hospital Medical Records [address] [place] [address] Cailin Ballesteros NP Social History Tobacco Use Types Packs/Day Years Used Date Smoking Tobacco: Never Smokeless Tobacco: Never Alcohol Use Standard Drinks/Week Comments No 0 (1 standard drink = 0.6 oz pur e alcohol) Education Answer Date Recorded What is the highest level of school you have completed or the highest degree you have received? 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, SKID ADZER, CHANDRAKANT) 06/14/2020 Sex Assigned at Date Recorded Female 08/03/2020 10:16 PM EDT Job Start Date Occupation Industry Not on file Not on file Not on file COVID-19 Exposure Response Date Recorded In the last 10 days, have thee u been in contact with someone who was confirmed or suspected to have Coronavirus/COVID-19? No / Unsure 09/02/2021 10:06 AM EDT documented as of this encounter Plan of Treatment Not on file documented as of this encounter Visit Diagnoses Not on filedocumented in this encounter Care Teams Belt Molder Relationship Specialty Start Date End Date Shweta Tellez MD PCP - General Internal Medicine 01/12/21 10/10/21 Ora Ronquillo MD [address] [place] [address] PCP - General Internal Medicine 10/11/21 Jl Mendez MD [address] [place] [address] Dr Mont[address] [place] [address] Specialist Cardiovascular Disease 10/13/21 Jannette Boudreaux MD [address] [address] Surgeon Neurosurgery 04/07/22 Tenisha Mendieta PA-C [address] [address] Specialist Neurosurgery 04/07/22 Julio Monk PA-C 175 [facility] [address] [place] [address] Specialist Neurosurgery 04/07/22 Luis Armando Eller MD [address] [address] Specialist ORTHOPEDIC SURGERY 10/01/23 Jayesh Pineda MD 305 [place] [address] Specialist Endocrinology 10/01/23 Kelsi Tejada MD 305 [place] [address] Specialist Allergy & Immunology 10/01/23 Pretty Le MD 175 [facility] [address] [place] [address] Specialist Pulmonology 10/01/23 Vesta Michael PA-C 300 [facility] [address] [place] [address] Specialist Vascular Surgery 10/01/23 [facility] 46 [place] [address] Specialist Optometry 10/01/23 documented as of this encounter
--- OUTSIDE RECORDS SUMMARY | 2024-04-22 10:15 | XMS_ITS | Encounter Summary ---
Author Organization [facility] Address [address] [place] [address] Care Team Providers Care Jewel Sorter Name Role Phone Shweta Tellez MD Primary Care Provider Ora Diaz MD Primary Care Prov ider Jl Mendez MD Unavailable [phone] Jannette Boudreaux MD Unavailable [phone] Tenisha Mendieta PA-C Unavailable [phone] Julio Monk PA-C Unavailable Luis Armando Eller MD Unavailable [phone] Jayesh Pineda MD Unavailable Kelsi Tejada MD Unavailable Unavailable Pertty Le MD Unavailable Vesta Michael-C Unavailable [phone] [facility] Unavailable [phone] Encounter Details Date Type Department Care Team Description 09/26/2021 Orders Only Medical Records [address] [place] [address] Ching Boo MD Social History Tobacco Use Types Packs/Day Years Used Date Smoking Tobacco: Never Smokeless Tobacco: Never Alcohol Use Standard Drinks/Week Comments No 0 (1 standard drink = 0.6 oz pur e alcohol) Education Answer Date Recorded What is the highest level of school you have completed or the highest degree you have received? 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, TELECOMMUNICATIONS SPECIALIST, CHANDRAKANT) 06/14/2020 Sex Assigned at Date [...] AM EDT documented as of this encounter Progress Notes * Ching Boo MD - 09/27/2021 8:09 AM EDT Exam and biopsy normal. Recommend smaller portions, weight loss, avoid eating or drinking anything two hours before bedtime. documented in this encounter Plan of Treatment Not on file documented as of this encounter Procedures Procedure Name Priority Date/Time Associated Diagnosis Comments OUTSIDE PATHOLOGY Routine 09/22/2021 documented in this encounter Results * OUTSIDE PATHOLOGY (09/22/2021) Ching Boo MD OUTSIDE LAB documented in this encounter Visit Diagnoses Not on filedocumented in this encounter Care Teams Jewel Sorter Relationship Specialty Start Date End Date Shweta Tellez MD PCP - General Internal Medicine 01/12/21 10/10/21 Ora Ronquillo MD 4 [place] [address] PCP - General Internal Medicine 10/11/21 Jl Mendez MD [address] [place] [address] Dr Montiel [address] [place] [address] Specialist Cardiovascular Disease 10/13/21 Jannette Boudreaux MD [address] [address] Surgeon Neurosurgery 04/07/22 Tenisha Mendieta PA-C [address] [address] Specialist Neurosurgery 04/07/22 Julio Monk PA-C 175 [facility] [address] [place] [address] Specialist Neurosurgery 04/07/22 Luis Armando Eller MD 175 [facility] [address] [place] [address] Specialist ORTHOPEDIC SURGERY 10/01/23 Jayesh Pineda MD 305 [place] [address] Specialist Endocrinology 10/01/23 Kelsi Tejada MD 305 [place] [address] Specialist Allergy & Immunology 10/01/23 Pretty Le MD 175 [facility] [address] [place] [address] Specialist Pulmonology 10/01/23 Vesta Michael PA-C 300 [facility] [address] [place] [address] Specialist Vascular Surgery 10/01/23 [facility] 46 [place] [address] Specialist Optometry 10/01/23 documented as of this encounter
--- OUTSIDE RECORDS SUMMARY | 2024-04-22 10:15 | XMS_ITS | Encounter Summary ---
Author Organization [facility] Address [address] [place] [address] Care Team Providers Care Jet Aircraft Servicer Name Role Phone Shweta Tellez MD Primary Care Provider Ora Diaz MD Primary Care Prov ider Jl Mendez MD Unavailable [phone] Jannette Boudreaux MD Unavailable [phone] Tenisha Mendieta PA-C Unavailable [phone] Julio Monk PA-C Unavailable Luis Armando Eller MD Unavailable [phone] Jayesh Pineda MD Unavailable Kelsi Tejada MD Unavailable Unavailable Pretty Le MD Unavailable Vesta Michael PA-C Unavailable [phone] [facility] Unavailable [phone] Encounter Details Date Type Department Care Team Description 07/20/2021 Hospital Medical Records [address] [place] [address] [facility] Social History Tobacco Use Types Packs/Day Years Used Date Smoking Tobacco: Never Smokeless Tobacco: Never Alcohol Use Standard Drinks/Week Comments No 0 (1 standard drink = 0.6 oz pur e alcohol) Education Answer Date Recorded What is the highest level of school you have completed or the highest degree you have received? 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, MATTRESS FINISHER, CHANDRAKANT) 06/14/2020 Sex Assigned at Date Recorded Female 08/03/2020 10:16 PM EDT Job Start Date Occupation Industry Not on file Not on file Not on file COVID-19 Exposure Response Date Recorded In the last 10 days, have yo u been in contact with someone who was confirmed or suspected to have Coronavirus/COVID-19? No / Unsure 07/08/2021 3:57 PM EDT documented as of this encounter Plan of Treatment Not on file documented as of this encounter Visit Diagnoses Not on filedocumented in this encounter Care Teams Jet Aircraft Servicer Relationship Specialty Start Date End Date Shweta Tellez MD PCP - General Internal Medicine 01/12/21 10/10/21 Ora Ronquillo MD [address] [place] [address] PCP - General Internal Medicine 10/11/21 Jl Mendez MD [address] [place] [address] Dr Montiel [address] [place] [address] Specialist Cardiovascular Disease 10/13/21 Jannette Boudreaux MD [address] [address] Surgeon Neurosurgery 04/07/22 Tenisha Mendieta PA-C [address] [address] Specialist Neurosurgery 04/07/22 uJlio Monk PA-C [address] [address] Specialist Neurosurgery 04/07/22 Luis Armando Eller MD [address] [address] Specialist ORTHOPEDIC SURGERY 10/01/23 Jayesh Pineda MD 305 [place] [address] Specialist Endocrinology 10/01/23 Kelsi Tejada MD 305 [place] [address] Specialist Allergy & Immunology 10/01/23 Pretty Le MD 175 [facility] [address] [place] [address] Specialist Pulmonology 10/01/23 Vesta Michael PA-C 300 [facility] 210 [place] [address] Specialist Vascular Surgery 10/01/23 [facility] 46 [place] [address] Specialist Optometry 10/01/23 documented as of this encounter
--- OUTSIDE RECORDS SUMMARY | 2024-04-22 10:15 | XMS_ITS | Encounter Summary ---
Author Organization [facility] Address [address] [place] [address] Care Team Providers Care Flour Blender Helper Name Role Phone Ora Ronquillo MD Primary Care Prov ider Jl Mendez MD Unavailable [phone] Jannette Boudreaux MD Unavailable [phone] Tenisha Mendieta PA-C Unavailable [phone] Julio MonkC Unavailable [phone] Luis Armando Eller MD Unavailable [phone] Jayesh Pineda MD Unavailable Kelsi Tejada MD Unavailable Unavailable Pretty Le MD Unavailable Vesta Michael PA-Pina Unavailable [phone] [facility] Unavailable [phone] Encounter Details Date Type Department Care Team Description 01/30/2022 Property Caretaker Report Medical Records 4 [place] [address] Kelsi Tejada MD Social History Tobacco Use Types Packs/Day Years Used Date Smoking Tobacco: Never Smokeless Tobacco: Never Alcohol Use Standard Drinks/Week Comments No 0 (1 standard drink = 0.6 oz pur e alcohol) Education Answer Date Recorded What is the highest level of school you have completed or the highest degree you have received? Master's degree (e.g., TANIA, [place], Lxei, MEd, BLUEPRINT DUPLICATOR, CHANDRAKANT) 06/14/2020 Sex Assigned at Date Recorded Female 08/03/2020 10:16 PM EDT Job Start Date Occupation Industry Not on file Not on file Not on file documented as of this encounter Plan of Treatment Not on file documented as of this encounter Visit Diagnoses Not on filedocumented in this encounter Care Teams Flour Blender Helper Relationship Specialty Start Date End Date Ora Ronquillo MD 444 [place] [address] PCP - General Internal Medicine 10/11/21 Jl Mendez MD [address] [place] [address] Dr Montiel [address] [place] [address] Specialist Cardiovascular Disease 10/13/21 Jannette Boudreaux MD [address] [address] Surgeon Neurosurgery 04/07/22 Tenisha Mendieta PA-C 175 [facility] 300 [place] [address] Specialist Neurosurgery 04/07/22 Julio Monk PA-C 175 [facility] 300 [place] [address] Specialist Neurosurgery 04/07/22 Luis Armando Eller MD 175 [facility] 250 [place] [address] Specialist ORTHOPEDIC SURGERY 10/01/23 Jayesh Pineda MD 305 [place] [address] Specialist Endocrinology 10/01/23 Kelsi Tejada MD 305 [place] [address] Specialist Allergy & Immunology 10/01/23 Pretty Le MD 175 [facility] 200 [place] [address] Specialist Pulmonology 10/01/23 Vesta Michael PA-C 300 [facility] 210 [place] [address] Specialist Vascular Surgery 10/01/23 [facility] 46 [place] [address] Specialist Optometry 10/01/23 documented as of this encounter
--- OUTSIDE RECORDS SUMMARY | 2024-04-22 10:15 | XMS_ITS | Encounter Summary ---
Author Organization [facility] Address [address] [place] [address] Care Team Providers Care School Business Administrator Name Role Phone Teressa Solis DO Primary Care Pro vider Unavailable Mina Pretty DO Primary Care Provider Ailyn Shweta Pretty MD Primary Care Provider UnaOra Randall MD Primary Care Prov ider Jl Mendez MD Unavailable Jannette Boudreaux MD Unavailable [phone] Tenisha Mendieta PA-C Unavailable Julio Monk PA-C Unavailable [phone] Luis Armando Eller MD Unavailable [phone] Jayesh Pineda MD Unavailable Kelsi Tejada MD Unavailable Unavailable Pretty Le MD Unavailable Vesta Michael PA-C Unavailable [facility] Unavailable Reason for Referral * (Priority) - Closed Specialty Diagnoses / Procedures Referred By Janie castillo Referred To Contact ORTHOPEDICS / Orthopedic Procedures REFERRAL TO ORTHOPEDICS (OUT OF NETWORK) Teressa Solis DO [address] [place] [address] External Orthopedics Referral ID Status Reason Start Date Expiration Date V isits Requested Visits Authorized SEE REVIEW ON 09/19/2019 Closed 09/18/2019 1 1 Reason for Visit * Reason Onset Date Comments REFERRAL 09/03/2019 Encounter Details Date Type Department Care Team Description 09/03/2019 Pt. Non Urgent Medic al Question Adult Medicine [address] [address] Teressa Solis DO Social History Tobacco Use [...] as of this encounter Progress Notes * Teressa Grace DO - 2019 1:09 AM EDT Please clarfiy which [facility] Dr. Beatty is affiliated with * Sarah Farias M.A. - 09/04/2019 10:59 AM EDTFrom: Ana Luisa House To: Teressa Grace DO Sent: 09/03/2019 11:41 PM EDT Subject: Referral Hi, Dr. Ramos My daughter sister in law, wants me to be seen by her Dr. Sal Beatty in [place], [place]. He reconstructed her hip. She said his very good and will let me know what my knee really need. She was takingto him and he said that they need a referral and he will do test first to see h ow the bones are and what really need to reconstructed my knee. I will start the physical therapy on 2019. If you need to contact me, my phone is [phone]. Thanks for supporting in this. Ana Luisa documented in this encounter Plan of Treatment Not on file documented as of this encounter Visit Diagnoses Not on filedocumented in this encounter Care Teams School Business Administrator Relationship Specialty Start Date End Date Teressa Solis DO PCP - General Internal Medicine 12/18/13 09/15/20 Mina Pretty DO PCP - General Internal Medicine 09/16/20 1 Shweta Tellez MD PCP - General Internal Medicine 01/12/21 10/10/21 Ora Ronquillo MD [address] [place] [address] PCP - General Internal Medicine 10/11/21 Jl Mendze MD [address] [place] [address] Dr [address] [place] [address] Specialist Cardiovascular Disease 10/13/21 Jannette Boudreaux MD [address] [address] Surgeon Neurosurgery 04/07/22 Teinsha Mendieta PA-C [address] [address] Specialist Neurosurgery 04/07/22 Julio Monk PA-C [address] [address] Specialist Neurosurgery 04/07/22 Luis Armando Eller MD [address] [address] Specialist ORTHOPEDIC SURGERY 10/01/23 Jayesh Pineda MD [address] [place] [address] Specialist Endocrinology 10/01/23 Kelsi Tejada MD 305 [place] [address] Specialist Allergy & Immunology 10/01/23 Pretty Le MD 175 [facility] 200 [place] [address] Specialist Pulmonology 10/01/23 Vesta Michael PA-C 300 [facility] 210 [place] [address] Specialist Vascular Surgery 10/01/23 [facility] [address] [place] [address] Specialist Optometry 10/01/23 documented as of this encounter
--- OUTSIDE RECORDS SUMMARY | 2024-04-22 10:15 | XMS_ITS | Encounter Summary ---
Author Organization [facility] Address [address] [place] [address] Care Team Providers Care Construction Administrator Name Role Phone Ora Ronquillo MD Primary Care Prov ider Jl Mendez MD Unavailable [phone] Jannette Boudreaux MD Unavailable [phone] Tenisha Mendieta PA-C Unavailable Julio Monk PA-C Unavailable [phone] Luis Armando Eller MD Unavailable [phone] Jayesh Pineda MD Unavailable Kelsi Tejada MD Unavailable Unavailable Pretty Le MD Unavailable Vesta Michael PA-C Unavailable [phone] [facility] Unavailable [phone] Encounter Details Date Type Department Care Team Description 08/07/2023 Refill Endocrinology - [place] [address] [place] [address] Jayesh Pineda MD [address] [place], [place] [id number] Social History Tobacco Use Types Packs/Day Years Used Date Smoking Tobacco: Never Smokeless Tobacco: Never Alcohol Use Standard Drinks/Week Comments No 0 (1 standard drink = 0.6 oz pur e alcohol) Education Answer Date Recorded What is the highest level of school you have completed or the highest degree you have received? 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, FISCAL ECONOMIST, CHANDRAKANT) 06/14/2020 Sex Assigned at Date Recorded Female 08/03/2020 10:16 PM EDT Job Start Date Occupation Industry Not on file Not on file Not on file documented as of this encounter Miscellaneous Notes * Telephone Encounter - Charleen Campbell L.P.N. - 08/07/2023 2:27 PM EDT Seen 03/14/2023fu 08/04/2023 Lab Results Component Value Date HGBA1C 7.9 03/02/2023 MALBUR < 5.0 05/10/2022 MALBCR < 13.8 05/10/2022 CHOL 155 05/10/2022 LDL 83 05/10/2022 HDL 51 05/10/2022 TRIG 109 05/10/2022 GLU 129 10/30/2022 CREAT 0.55 03/02/2023 documented in this encounter Plan of Treatment Not on file documented as of this encounter Visit Diagnoses Diagnosis Type 2 diabetes mellitus with other specified complication, without long-term current use of insulin (HCC) documented in this encounter Care Teams Construction Administrator Relationship Specialty Start Date End Date Ora Ronquillo MD [address] [place] [address] PCP - General Internal Medicine 10/11/21 Jl Mendez MD [address] [place] [address] Dr Montiel [address] [place] [address] Specialist Cardiovascular Disease 10/13/21 Jannette Boudreaux MD 175 [facility] [address] [place] [address] Surgeon Neurosurgery 04/07/22 Tenisha Mendieta PA-C 175 [facility] [address] [place] [address] Specialist Neurosurgery 04/07/22 Julio Monk PA-C 175 [facility] [address] [place] [address] Specialist Neurosurgery 04/07/22 Luis Armando Eller MD 175 [facility] [address] [place] [address] Specialist ORTHOPEDIC SURGERY 10/01/23 Jayesh Pineda MD [address] [place] [address] Specialist Endocrinology 10/01/23 Kelsi Tejada MD [address] [place] [address] Specialist Allergy & Immunology 10/01/23 Pretty Le MD 175 [facility] [address] [place] [address] Specialist Pulmonology 10/01/23 Vesta Michael PA-C 300 [facility] [address] [place] [address] Specialist Vascular Surgery 10/01/23 [facility] [address] [place] [address] Specialist Optometry 10/01/23 documented as of this encounter
--- OUTSIDE RECORDS SUMMARY | 2024-04-22 10:15 | XMS_ITS | Encounter Summary ---
Author Organization [facility] Address [address] [place] [address] Care Team Providers Care National Opelint Analyst Name Role Phone Teressa Solis DO Primary Care Pro vider Unavailable Mina Pretty DO Primary Care Provider Shweta Cronin MD Primary Care Provider Ora Diaz MD Primary Care Prov ider Jl Mendez MD Unavailable Jannette Boudreaux MD Unavailable [phone] Tenisha Mendieta PA-C Unavailable Julio Monk PA-C Unavailable [phone] Luis Armando Eller MD Unavailable [phone] Jayesh Pineda MD Unavailable Kelsi Tejada MD Unavailable Unavailable Pretty Le MD Unavailable Vesta Michael PA-C Unavailable [phone] [facility] Unavailable Encounter Details Date Type Department Care Team Description 07/21/2019 Orders Only Adult Medicine B - [place] [address] [place], [place] [id number] Dez Tristan MD Vitamin D deficiency (Primary Dx) Social History Tobacco Use Types [...] as of this encounter Plan of Treatment Scheduled Orders Name Type Priority Associated Diagnoses Orde r Schedule 25 HYDROXY INCLUDES FRACTIONS IF PERFORMED Lab Routine Vitamin D deficiency Expected: 07/21/2019, Expires: 07/20/2020 documented as of this encounter Visit Diagnoses Diagnosis Vitamin D deficiency- Primary Unspecified vitamin D deficiency documented in this encounter Care Teams National Opelint Analyst Relationship Specialty Start Date End Date Teressa Solis DO PCP - General Internal Medicine 12/18/13 09/15/20 Mina Pretty DO PCP - General Internal Medicine 09/16/20 Shweta Boucher MD PCP - General Internal Medicine 01/12/21 10/10/21 Ora Ronquillo MD [address] [place] [address] PCP - General Internal Medicine 10/11/21 Jl Mendez MD [address] [place] [address] Dr [address] [place] [address] Specialist Cardiovascular Disease 10/13/21 Jannette Boudreaux MD [address] [address] Surgeon Neurosurgery 04/07/22 Tenisha Mendieta PA-C [address] [address] Specialist Neurosurgery 04/07/22 Julio Monk PA-C 175 [facility] [address] [place] [address] Specialist Neurosurgery 04/07/22 Luis Armando Eller MD [address] [address] Specialist ORTHOPEDIC SURGERY 10/01/23 Jayesh Pineda MD [address] [place] [address] Specialist Endocrinology 10/01/23 Kelsi Tejada MD [address] [place] [address] Specialist Allergy & Immunology 10/01/23 Pretty Le MD 175 [facility] [address] [place] [address] Specialist Pulmonology 10/01/23 Vesta Michael PA-C 300 [facility] [address] [place] [address] Specialist Vascular Surgery 10/01/23 [facility] [address] [place] [address] Specialist Optometry 10/01/23 documented as of this encounter
--- OUTSIDE RECORDS SUMMARY | 2024-04-22 10:15 | XMS_ITS | Encounter Summary ---
Author Organization [facility] Address [address] [place] [address] Care Team Providers Care Sheet Metal Welder Name Role Phone Ora Ronquillo MD Primary Care Prov ider Jl Mendez MD Unavailable Jannette Boudreaux MD Unavailable [phone] Tenisha Mendieta PA-C Unavailable Julio Monk PA-C Unavailable Luis Armando Eller MD Unavailable [phone] Jayesh Pineda MD Unavailable Kelsi Tejada MD Unavailable Unavailable Pretty Le MD Unavailable Vesta Michael PA-C Unavailable [phone] [facility] Unavailable [phone] Encounter Details Date Type Department Care Team Description 07/03/2022 Refill Pulmonology - [place] 175 [facility] [address] [place] [phone] Michael Saldana MD Social History Tobacco Use Types Packs/Day Years Used Date Smoking Tobacco: Never Smokeless Tobacco: Never Alcohol Use Standard Drinks/Week Comments No 0 (1 standard drink = 0.6 oz pur e alcohol) Education Answer Date Recorded What is the highest level of school you have completed or the highest degree you have received? 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, TIRE TRUCKER, CHANDRAKANT) 06/14/2020 Sex Assigned at Date Recorded [...] encounter Miscellaneous Notes * Telephone Encounter - Tommy Pulido CMA - 07/04/2022 8:04 AM EDT [place] 10/03/21 NOV 04/06/22 pt no show documented in this encounter Plan of Treatment Not on file documented as of this encounter Visit Diagnoses Diagnosis Moderate persistent asthma, unspecified whether complicated documented in this encounter Care Teams Sheet Metal Welder Relationship Specialty Start Date End Date Ora Ronuqillo MD [address] [place] [address] PCP - General Internal Medicine 10/11/21 Jl Mendez MD [address] [place] [address] Dr Mont[address] [place] [address] Specialist Cardiovascular Disease 10/13/21 Jannette Boudreaux MD [address] [address] Surgeon Neurosurgery 04/07/22 Tenisha Mendieta PA-C [address] [address] Specialist Neurosurgery 04/07/22 Julio Monk PA-C 175 [facility] [address] [place] [address] Specialist Neurosurgery 04/07/22 Luis Armando Eller MD [address] [address] Specialist ORTHOPEDIC SURGERY 10/01/23 Jayesh Pineda MD 305 [place] [address] Specialist Endocrinology 10/01/23 Kelsi Tejada MD [address] [place] [address] Specialist Allergy & Immunology 10/01/23 Pretty Le MD 175 [facility] [address] [place] [address] Specialist Pulmonology 10/01/23 Vesta Michael PA-C 300 [facility] [address] [place] [address] Specialist Vascular Surgery 10/01/23 [facility] [address] [place] [address] Specialist Optometry 10/01/23 documented as of this encounter
--- OUTSIDE RECORDS SUMMARY | 2024-04-22 10:15 | XMS_ITS | Encounter Summary ---
Author Organization [facility] Address [address] [place] [address] Care Team Providers Care Pretzel Twister Name Role Phone Teressa Solis DO Primary Care Pro vider Unavailable Mina Pretty DO Primary Care Provider Shweta Cronin MD Primary Care Provider Ora Diaz MD Primary Care Prov ider Jl Mendez MD Unavailable [phone] Jannette Boudreaux MD Unavailable [phone] Tenisha Mendieta PA-C Unavailable [phone] Julio Monk PA-C Unavailable [phone] Luis Armando Eller MD Unavailable [phone] Jayesh Pineda MD Unavailable Kelsi Tejada MD Unavailable Unavailable Pretty Le MD Unavailable Vesta Michael PA-C Unavailable [phone] [facility] [place] [facility] Unavailable [phone] Encounter Details Date Type Department Care Team Description 07/21/2019 Hospital Medical Records [address] [place] [address] [facility] Social History Tobacco Use Types Packs/Day Years Used Date Smoking Tobacco: Never Smokeless Tobacco: Never Alcohol Use Standard Drinks/Week Comments No 0 (1 standard drink = 0.6 oz pur e alcohol) Education Answer Date Recorded What is the highest level of school you have completed or the highest degree you have received? 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, BIODIESEL PROCESS CONTROL TECHNICIAN, CHANDRAKANT) 06/14/2020 Sex Assigned at Date Recorded Female 08/03/2020 10:16 PM EDT Job Start Date Occupation Industry Not on file Not on file Not on file documented as of this encounter Plan of Treatment Not on file documented as of this encounter Visit Diagnoses Not on filedocumented in this encounter Care Teams Pretzel Twister Relationship Specialty Start Date End Date Teressa Solis, PCP - General Internal Medicine 12/18/13 09/15/20 Mina Pretty DO PCP - General Internal Medicine 09/16/20 Shweta Boucher MD PCP - General Internal Medicine 01/12/21 10/10/21 Ora Ronquillo MD [address] [place] [address] PCP - General Internal Medicine 10/11/21 Jl Mendez MD [address] [place] [address] Dr Mont[address] [place] [address] Specialist Cardiovascular Disease 10/13/21 Jannette Boudreaux MD [address] [address] Surgeon Neurosurgery 04/07/22 Tenisha Mendieta PA-C [address] [address] Specialist Neurosurgery 04/07/22 Julio Monk PA-C 175 [facility] [address] [place] [address] Specialist Neurosurgery 04/07/22 Luis Armando Eller MD [address] [address] Specialist ORTHOPEDIC SURGERY 10/01/23 Jayesh Pineda MD [address] [place] [address] Specialist Endocrinology 10/01/23 Kelsi Tejada MD [address] [place] [address] Specialist Allergy & Immunology 10/01/23 Pretty Le MD 175 [facility] [address] [place] [address] Specialist Pulmonology 10/01/23 Vesta Michael PA-C 300 [facility] [place] [facility] [address] [place] [address] Specialist Vascular Surgery 10/01/23 [facility] [address] [place], [place] [address] Specialist Optometry 10/01/23 documented as of this encounter
--- OUTSIDE RECORDS SUMMARY | 2024-04-22 10:15 | XMS_ITS | Encounter Summary ---
Author Organization [facility] Address [address] [place] [address] Care Team Providers Care Manager Technical Support Name Role Phone Teressa Solis DO Primary Care Pro vider Unavailable Mina Pretty DO Primary Care Provider Ailyn Shweta Pretty MD Primary Care Provider Ora Diaz MD Primary Care Prov ider Jl Mendez MD Unavailable Jannette Boudreaux MD Unavailable [phone] Tenisha Mendieta PA-C Unavailable [phone] Julio Monk PA-C Unavailable [phone] Luis Armando Eller MD Unavailable [phone] Jayesh Pineda MD Unavailable Kelsi Tejada MD Unavailable Unavailable Pretty Le MD Unavailable Vesta Michael PA-C Unavailable [facility] Unavailable [phone] Encounter Details Date Type Department Care Team Description 06/24/2019 Telephone Gastroenterology - [place] 175 [facility] [address] [place] [address] Luis Armando Staton MD Social [...] encounter Miscellaneous Notes * Telephone Encounter - Chung Villareal - 06/24/2019 9:20 AM EDT LVM for patient to reschedule in documented in this encounter Plan of Treatment Not on file documented as of this encounter Visit Diagnoses Not on filedocumented in this encounter Care Teams Manager Technical Support Relationship Specialty Start Date End Date Teressa Solis, DO PCP - General Internal Medicine 12/18/13 09/15/20 Mina Pretty DO PCP - General Internal Medicine 09/16/20 1 Shweta Tellez MD PCP - General Internal Medicine 01/12/21 10/10/21 Ora Ronquillo MD [address] [place] [address] PCP - General Internal Medicine 10/11/21 Jl Mendez MD [address] [place] [address] Dr Mont[address] [place] [address] Specialist Cardiovascular Disease 10/13/21 Jannette Boudreaux MD [address] [address] Surgeon Neurosurgery 04/07/22 Tenisha Mendieta PA-C [address] [address] Specialist Neurosurgery 04/07/22 Julio Monk PA-C 175 [facility] [address] [place] [address] Specialist Neurosurgery 04/07/22 Luis Armando Eller MD [address] [address] Specialist ORTHOPEDIC SURGERY 10/01/23 Jayesh Pineda MD 305 [place] [address] Specialist Endocrinology 10/01/23 Kelsi Tejada MD 305 [place] [address] Specialist Allergy & Immunology 10/01/23 Pretty Le MD 175 [facility] [address] [place] [address] Specialist Pulmonology 10/01/23 Vesta Michael PA-C 300 [facility] [address] [place] [address] Specialist Vascular Surgery 10/01/23 [facility] [address] [place] [address] Specialist Optometry 10/01/23 documented as of this encounter
--- OUTSIDE RECORDS SUMMARY | 2024-04-22 10:15 | XMS_ITS | Encounter Summary ---
Author Organization [facility] Address [address] [place] [address] Care Team Providers Care Kiln Puller Name Role Phone Shweta Tellez MD Primary Care Provider Ora Diaz MD Primary Care Prov ider Jl Mendez MD Unavailable [phone] Jannette Boudreaux MD Unavailable [phone] Tenisha Mendieta PA-C Unavailable [phone] Julio Monk PA-C Unavailable Luis Armando Eller MD Unavailable [phone] Jayesh Pineda MD Unavailable Kelsi Tejada MD Unavailable Unavailable Pretty Le MD Unavailable Vesta Michael-C Unavailable [phone] [facility] Unavailable [phone] Encounter Details Date Type Department Care Team Description 10/06/2021 Policy Writer Report Medical Records [address] [place] [address] Jorge Belcher II Social History Tobacco Use Types Packs/Day Years Used Date Smoking Tobacco: Never Smokeless Tobacco: Never Alcohol Use Standard Drinks/Week Comments No 0 (1 standard drink = 0.6 oz pur e alcohol) Education Answer Date Recorded What is the highest level of school you have completed or the highest degree you have received? 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, MEDICAL BILLING REPRESENTATIVE, CHANDRAKANT) 06/14/2020 Sex Assigned at Date Recorded Female 08/03/2020 10:16 PM EDT Job Start Date Occupation Industry Not on file Not on file Not on file COVID-19 Exposure Response Date Recorded In the last 10 days, have yo u been in contact with someone who was confirmed or suspected to have Coronavirus/COVID-19? No / Unsure 10/03/2021 9:03 AM EDT documented as of this encounter Plan of Treatment Not on file documented as of this encounter Visit Diagnoses Not on filedocumented in this encounter Care Teams Kiln Puller Relationship Specialty Start Date End Date Shweta Tellez MD PCP - General Internal Medicine 01/12/21 10/10/21 Ora Ronquillo MD [address] [place] [address] PCP - General Internal Medicine 10/11/21 Jl Mendez MD [address] [place] [address] Dr [address] [place] [address] Specialist Cardiovascular Disease 10/13/21 Jannette Boudreaux MD [address] [address] Surgeon Neurosurgery 04/07/22 Tenisha Mendieta PA-C [address] [address] Specialist Neurosurgery 04/07/22 Julio Monk PA-C 175 [facility] [address] [place] [address] Specialist Neurosurgery 04/07/22 Luis Armando Eller MD [address] [address] Specialist ORTHOPEDIC SURGERY 10/01/23 Jayesh Pineda MD 305 [place] [address] Specialist Endocrinology 10/01/23 Kelsi Tejada MD 305 [place] [address] Specialist Allergy & Immunology 10/01/23 Pretty Le MD 175 [facility] [address] [place] [address] Specialist Pulmonology 10/01/23 Vesta Michael PA-C 300 [facility] [address] [place] [address] Specialist Vascular Surgery 10/01/23 [facility] [address] [place] [address] Specialist Optometry 10/01/23 documented as of this encounter
--- OUTSIDE RECORDS SUMMARY | 2024-04-22 10:15 | XMS_ITS | Encounter Summary ---
Author Organization [facility] Address [address] [place] [address] Care Team Providers Care Pilot Instructor Name Role Phone Teressa Solis DO Primary Care Pro vider Unavailable Mina Pretty DO Primary Care Provider Shweta Cronin MD Primary Care Provider Ora Diaz MD Primary Care Prov ider Jl Mendez MD Unavailable Jannette Boudreaux MD Unavailable [phone] Tenisha Mendieta PA-C Unavailable Julio Monk PA-C Unavailable Luis Armando Eller MD Unavailable [phone] Jayesh Pineda MD Unavailable Kelsi Tejada MD Unavailable Unavailable Pretty Le MD Unavailable Vesta Michael PA-C Unavailable [phone] [facility] Unavailable Reason for Visit * Reason Comments E-prescribe Rx Request Encounter Details Date Type Department Care Team Description 05/10/2019 Refill Adult Medicine [address] [address] Teressa Solis DO E-prescribe Rx [...] encounter Miscellaneous Notes * Telephone Encounter - Bette Rincon M.A. - 05/12/2019 3:23 PM EST Lab Results Component Value Date CHOL 134 06/07/2018 LDL 70 06/07/2018 HDL 36 06/07/2018 TRIG 143 06/07/2018 SGOT 18 06/07/2018 SGPT 41 06/07/2018 * Telephone Encounter - Blanca Lozano - 05/12/2019 10:05 AM EST Patient would like script to be: E-PRESCRIBED/FAXED TO PHARMACY WHEN WAS THE PATIENT'S LAST APPOINTMENT IN ADULT MEDICINE? 04/03/19 WHEN WAS THE LAST TIME THE PATIENT SAW THEIR PCP? 03/21/19 Does patient have an upcoming appointment? No-no answer, no voicemail documented x2 (Please verify telephone contact #'s at next phone call) (THE MEDICATION REQUESTED IS ON THE MED [...] N/A Patients current insurance carrier is: Payor: [email or web address] FFS / Plan: [employer] / Product Type: MEDICAID RISK documented in this encounter Plan of Treatment Not on file documented as of this encounter Visit Diagnoses Not on filedocumented in this encounter Care Teams Pilot Instructor Relationship Specialty Start Date End Date Teressa Solis DO PCP - General Internal Medicine 12/18/13 09/15/20 Mina Pretty DO PCP - General Internal Medicine 09/16/20 Shweta Boucher MD PCP - General Internal Medicine 01/12/21 10/10/21 Ora Ronquillo MD [address] [place] [address] PCP - General Internal Medicine 10/11/21 Jl Mendez MD [address] [place] [address] Dr Montiel [address] [place] [address] Specialist Cardiovascular Disease 10/13/21 Jannette Boudreaux MD [address] [address] Surgeon Neurosurgery 04/07/22 Tenisah Mendieta PA-C [address] [address] Specialist Neurosurgery 04/07/22 Julio Monk PA-C [address] [address] Specialist Neurosurgery 04/07/22 Luis Armando Eller MD [address] [address] Specialist ORTHOPEDIC SURGERY 10/01/23 Jayesh Pineda MD 305 [place] [address] Specialist Endocrinology 10/01/23 Kelsi Tejada MD 305 [place] [address] Specialist Allergy & Immunology 10/01/23 Pretty Le MD 175 [facility] [address] [place] [address] Specialist Pulmonology 10/01/23 Vesta Michael PA-C 300 [facility] 210 [place] [address] Specialist Vascular Surgery 10/01/23 [facility] [address] [place], [place] [address] Specialist Optometry 10/01/23 documented as of this encounter
--- OUTSIDE RECORDS SUMMARY | 2024-04-22 10:15 | XMS_ITS | Encounter Summary ---
Author Organization [facility] Address [address] [place] [address] Care Team Providers Care Prep Room Supervisor Name Role Phone Teressa Solis DO Primary Care Pro vider Unavailable Mina Pretty DO Primary Care Provider Shweta Cronin MD Primary Care Provider Ora Daiz MD Primary Care Prov ider Jl Mendez MD Unavailable [phone] Jannette Boudreaux MD Unavailable [phone] Tenisha Mendieta PA-C Unavailable [phone] Julio Monk PA-C Unavailable [phone] Luis Armando Eller MD Unavailable [phone] Jayesh Pineda MD Unavailable Kelsi Tejada MD Unavailable Unavailable Pretty Le MD Unavailable Vesta Michael PA-C Unavailable [phone] [facility] Unavailable Reason for Visit * Reason Onset Date Comments refill request 08/21/2019 Encounter Details Date Type Department Care Team Description 08/21/2019 Refill Adult Urgent Care - [address] [address] Dez Tristan MD refill request Social History Tobacco Use Types Packs/Day Years [...] encounter Miscellaneous Notes * Telephone Encounter - Shell Jimenez M.A. - 08/21/2019 1:49 PM EDT Date of last office visit was 04/17/19. Pended appt for 10/16/19 Lab Results Component Value Date 25OHD 23 08/19/2019 25HYDROXYVIT 22 01/29/2018 documented in this encounter Plan of Treatment Not on file documented as of this encounter Visit Diagnoses Not on filedocumented in this encounter Care Teams Prep Room Supervisor Relationship Specialty Start Date End Date Teressa Solis DO PCP - General Internal Medicine 12/18/13 09/15/20 Mina Pretty DO PCP - General Internal Medicine 09/16/20 Shweta Boucher MD PCP - General Internal Medicine 01/12/21 10/10/21 Ora Ronquillo MD [address] [place] [address] PCP - General Internal Medicine 10/11/21 Jl Mendez MD [address] [place] [address] Dr Mont[address] [place] [address] Specialist Cardiovascular Disease 10/13/21 Jannette Boudreaux MD [address] [address] Surgeon Neurosurgery 04/07/22 Tenisha Mendieta PA-C [address] [address] Specialist Neurosurgery 04/07/22 Julio Monk PA-C [address] [place] [address] Specialist Neurosurgery 04/07/22 Luis Armando Eller MD 175 [facility] 250 [place] [address] Specialist ORTHOPEDIC SURGERY 10/01/23 Jayesh Pineda MD 305 [place] [address] Specialist Endocrinology 10/01/23 Kelsi Tejada MD 305 [place] [address] Specialist Allergy & Immunology 10/01/23 Pretty Le MD 175 [facility] 200 [place] [address] Specialist Pulmonology 10/01/23 Vesta Michael PA-C 300 [facility] 210 [place] [address] Specialist Vascular Surgery 10/01/23 [facility] 46 [place] [address] Specialist Optometry 10/01/23 documented as of this encounter
--- OUTSIDE RECORDS SUMMARY | 2024-04-22 10:15 | XMS_ITS | Encounter Summary ---
Author Organization [facility] Address [address] [place] [address] Care Team Providers Care Identification Technician Name Role Phone Shweta Tellez MD Primary Care Provider Ora Diaz MD Primary Care Prov ider Jl Mendez MD Unavailable Jannette Boudreaux MD Unavailable [phone] Tenisha Mendieta PA-C Unavailable [phone] Julio Monk PA-C Unavailable Luis Armando Eller MD Unavailable [phone] Jayesh Pineda MD Unavailable Kelsi Tejada MD Unavailable Unavailable Pretty Le MD Unavailable Vesta Michael-Pina Unavailable [phone] [facility] Unavailable [phone] Encounter Details Date Type Department Care Team Description 08/29/2021 SCAN Medical Records [address] [place] [address] Abstract, Provider Social History Tobacco Use Types Packs/Day Years Used Date Smoking Tobacco: Never Smokeless Tobacco: Never Alcohol Use Standard Drinks/Week Comments No 0 (1 standard drink = 0.6 oz pur e alcohol) Education Answer Date Recorded What is the highest level of school you have completed or the highest degree you have received? 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, BALLET TEACHER, CHANDRAKANT) 06/14/2020 Sex Assigned at Date Recorded Female 08/03/2020 10:16 PM EDT Job Start Date Occupation Industry Not on file Not on file Not on file COVID-19 Exposure Response Date Recorded In the last 10 days, have yo u been in contact with someone who was confirmed or suspected to have Coronavirus/COVID-19? No / Unsure 08/28/2021 9:17 AM EDT documented as of this encounter Plan of Treatment Not on file documented as of this encounter Visit Diagnoses Not on filedocumented in this encounter Care Teams Identification Technician Relationship Specialty Start Date End Date Shweta Tellez MD PCP - General Internal Medicine 01/12/21 10/10/21 Ora Ronquillo MD [address] [place] [address] PCP - General Internal Medicine 10/11/21 Jl Mendez MD [address] [place] [address] Dr Montiel [address] [place] [address] Specialist Cardiovascular Disease 10/13/21 Jannette Boudreaux MD [address] [address] Surgeon Neurosurgery 04/07/22 Tenisha Mendieta PA-C [address] [address] Specialist Neurosurgery 04/07/22 Julio Monk PA-C [address] [address] Specialist Neurosurgery 04/07/22 Luis Armando Eller MD [address] [address] Specialist ORTHOPEDIC SURGERY 10/01/23 Jayesh Pineda MD 305 [place] [address] Specialist Endocrinology 10/01/23 Kelsi Tejada MD 305 [place] [address] Specialist Allergy & Immunology 10/01/23 Pretty Le MD 175 [facility] [address] [place] [address] Specialist Pulmonology 10/01/23 Vesta Michael PA-C 300 [facility] [address] [place] [address] Specialist Vascular Surgery 10/01/23 [facility] [address] [place] [address] Specialist Optometry 10/01/23 documented as of this encounter
--- OUTSIDE RECORDS SUMMARY | 2024-04-22 10:15 | XMS_ITS | Encounter Summary ---
Author Organization [facility] Address [address] [place] [address] Care Team Providers Care Tooth Clerk Name Role Phone Ora Ronquillo MD Primary Care Prov ider Jl Mendez MD Unavailable [phone] Jannette Boudreaux MD Unavailable [phone] Tenisha MendietaC Unavailable Julio Monk-C Unavailable Luis Armando Eller MD Unavailable [phone] Jayesh Pineda MD Unavailable Kelsi Tejada MD Unavailable Unavailable Pretty Le MD Unavailable Vesta Michael PA-C Unavailable [phone] [facility] Unavailable Encounter Details Date Type Department Care Team Description 08/24/2023 SCAN [facility] Medical [facility] 175 [facility] [address] [place] [address] Luis Armando Eller MD 175 [facility] [address] [place], [place] [id number] Social History Tobacco Use Types Packs/Day Years Used Date Smoking Tobacco: Never Smokeless Tobacco: Never Alcohol Use Standard Drinks/Week Comments No 0 (1 standard drink = 0.6 oz pur e alcohol) Education Answer Date Recorded What is the highest level of school you have completed or the highest degree you have received? 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, MARKETING OPERATIONS COORDINATOR, CHANDRAKANT) 06/14/2020 Sex Assigned at Date Recorded Female 08/03/2020 10:16 PM EDT Job Start Date Occupation Industry Not on file Not on file Not on file documented as of this encounter Plan of Treatment Not on file documented as of this encounter Visit Diagnoses Not on filedocumented in this encounter Care Teams Tooth Clerk Relationship Specialty Start Date End Date Ora Ronquillo MD [address] [place] [address] PCP - General Internal Medicine 10/11/21 Jl Mendez MD [address] [place] [address] Dr Mont[address] [place] [address] Specialist Cardiovascular Disease 10/13/21 Jannette Boudreaux MD [address] [address] Surgeon Neurosurgery 04/07/22 Tenisha Mendieta PA-C [address] [address] Specialist Neurosurgery 04/07/22 Julio Monk PA-C [address] [address] Specialist Neurosurgery 04/07/22 Luis Armando Eller MD [address] [address] Specialist ORTHOPEDIC SURGERY 10/01/23 Jayesh Pineda MD 305 [place] [address] Specialist Endocrinology 10/01/23 Kelsi Tejada MD 305 [place] [address] Specialist Allergy & Immunology 10/01/23 Pretty Le MD 175 [facility] 200 [place] [address] Specialist Pulmonology 10/01/23 Vesta Michael PA-C 300 [facility] 210 [place] [address] Specialist Vascular Surgery 10/01/23 [facility] 46 [place] [address] Specialist Optometry 10/01/23 documented as of this encounter
--- OUTSIDE RECORDS SUMMARY | 2024-04-22 10:15 | XMS_ITS | Encounter Summary ---
Author Organization [facility] Address [address] [place] [address] Care Team Providers Care Appliance Service Supervisor Name Role Phone Shweta Tellez MD Primary Care Provider Ora Diaz MD Primary Care Prov ider Jl Mendez MD Unavailable [phone] Jannette Boudreaux MD Unavailable [phone] Tenisha Mendieta PA-C Unavailable [phone] Julio Monk PA-C Unavailable Luis Armando Eller MD Unavailable [phone] Jayesh Pineda MD Unavailable Kelsi Tejada MD Unavailable Unavailable Pretty Le MD Unavailable Vesta Michael-C Unavailable [phone] [facility] Unavailable [phone] Encounter Details Date Type Department Care Team Description 09/22/2021 Hospital Medical Records [address] [place] [address] Ching Boo MD Social History Tobacco Use Types Packs/Day Years Used Date Smoking Tobacco: Never Smokeless Tobacco: Never Alcohol Use Standard Drinks/Week Comments No 0 (1 standard drink = 0.6 oz pur e alcohol) Education Answer Date Recorded What is the highest level of school you have completed or the highest degree you have received? 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, MECHANICAL SOUND TECHNICIAN, CHANDRAKANT) 06/14/2020 Sex Assigned at Date [...] on filedocumented in this encounter Care Teams Appliance Service Supervisor Relationship Specialty Start Date End Date Shweta Tellez MD PCP - General Internal Medicine 01/12/21 10/10/21 Hiwot Couch, Ora Kelly MD [address] [place] [address] PCP - General Internal Medicine 10/11/21 Jl Mendez MD [address] [place] [address] Dr [address] [place] [address] Specialist Cardiovascular Disease 10/13/21 Jannette Boudreaux MD [address] [address] Surgeon Neurosurgery 04/07/22 Tenisha Mendieta PA-C [address] [address] Specialist Neurosurgery 04/07/22 Julio Monk PA-C 175 [facility] [address] [place] [address] Specialist Neurosurgery 04/07/22 Luis Armando Eller MD [address] [address] Specialist ORTHOPEDIC SURGERY 10/01/23 Jayesh Pineda MD 305 [place] [address] Specialist Endocrinology 10/01/23 Kelsi Tejada MD 305 [place] [address] Specialist Allergy & Immunology 10/01/23 Pretty Le MD 175 [facility] [address] [place] [address] Specialist Pulmonology 10/01/23 Vesta Michael PA-C 300 [facility] [address] [place] [address] Specialist Vascular Surgery 10/01/23 [facility] [address] [place] [address] Specialist Optometry 10/01/23 documented as of this encounter
--- OUTSIDE RECORDS SUMMARY | 2024-04-22 10:15 | XMS_ITS | Encounter Summary ---
Author Organization [facility] Address [address] [place] [address] Care Team Providers Care Relationship Banker Name Role Phone Shweta Tellez MD Primary Care Provider Ora Diaz MD Primary Care Prov ider Jl Mendez MD Unavailable [phone] Jannette Boudreaux MD Unavailable [phone] Tenisha Mendieta PA-C Unavailable [phone] Julio Monk PA-C Unavailable Luis Armando Eller MD Unavailable [phone] Jayesh Pineda MD Unavailable Kelsi Tejada MD Unavailable Unavailable Pretty Le MD Unavailable Vesta Michael PA-C Unavailable [phone] Unavailable [phone] Encounter Details Date Type Department Care Team Description 09/09/2021 Hospital Medical Records [address] [place] [address] [facility] Social History Tobacco Use Types Packs/Day Years Used Date Smoking Tobacco: Never Smokeless Tobacco: Never Alcohol Use Standard Drinks/Week Comments No 0 (1 standard drink = 0.6 oz pur e alcohol) Education Answer Date Recorded What is the highest level of school you have completed or the highest degree you have received? 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, HEADER SET UP OPERATOR, CHANDRAKANT) 06/14/2020 Sex Assigned at Date [...] Name Priority Date/Time Associated Diagnosis Comments OUTSIDE LAB Routine 09/11/2021 OUTSIDE LAB Routine 09/11/2021 OUTSIDE EKG Routine 09/09/2021 OUTSIDE LAB Routine 09/09/2021 documented in this encounter Results * OUTSIDE LAB (09/11/2021) Provider Abstract LAB * OUTSIDE LAB (09/11/2021) Provider Abstract LAB * OUTSIDE LAB (09/09/2021) Provider Abstract LAB * OUTSIDE EKG (09/09/2021) Provider Abstract CARDIOLOGY documented in this encounter Visit Diagnoses Not on filedocumented in this encounter Care Teams Relationship Banker Relationship Specialty Start Date End Date Shweta Tellez MD PCP - General Internal Medicine 01/12/21 10/10/21 Ora Ronquillo MD [address] [place] [address] PCP - General Internal Medicine 10/11/21 Jl Mendez MD [address] [place] [address] [place] [address] Specialist Cardiovascular Disease 10/13/21 Jannette Boudreaux MD [address] [address] Surgeon Neurosurgery 04/07/22 Tenisha Mendieta PA-C 175 [facility] 300 [place] [address] Specialist Neurosurgery 04/07/22 Julio Monk PA-C 175 [facility] 300 [place] [address] Specialist Neurosurgery 04/07/22 Luis Armando Eller MD 175 [facility] 250 [place] [address] Specialist ORTHOPEDIC SURGERY 10/01/23 Jayesh Pineda MD 305 [place] [address] Specialist Endocrinology 10/01/23 Kelsi Tejada MD 305 [place] [address] Specialist Allergy & Immunology 10/01/23 Pretty Le MD 175 [facility] 200 [place] [address] Specialist Pulmonology 10/01/23 Vesta Michael PA-C 300 [facility] 210 [place] [address] Specialist Vascular Surgery 10/01/23 [facility] 46 [place] [address] Specialist Optometry 10/01/23 documented as of this encounter
--- OUTSIDE RECORDS SUMMARY | 2024-04-22 10:15 | XMS_ITS | Encounter Summary ---
Author Organization [facility] Address [address] [place] [address] Care Team Providers Care Cattle Broker Name Role Phone Teressa Solis DO Primary Care Pro vider Unavailable Mina Pretty DO Primary Care Provider Shweta Cronin MD Primary Care Provider Ora Diaz MD Primary Care Prov ider Jl Mendez MD Unavailable [phone] Jannette Boudreaux MD Unavailable [phone] Tenisha Mendieta PA-C Unavailable [phone] Julio Monk PA-C Unavailable Luis Armando Eller MD Unavailable [phone] Jayesh Pineda MD Unavailable Kelsi Tejada MD Unavailable Unavailable Pretty Le MD Unavailable Vesta Michael PA-C Unavailable [facility] Unavailable Reason for Visit * Reason Onset Date Comments Medication 06/11/2019 Home Injection? Encounter Details Date Type Department Care Team Description 06/11/2019 Telephone Allergy [facility] [address] [place] [address] Kelsi Tejada MD Medication (Home Injection?) Social History Tobacco Use Types Packs/Day Years [...] Telephone Encounter - Nola Campbell R.N. - 06/19/2019 2:40 PM EDT Repeat call to patient to assess if she is comfortable with using the auto injector for home usage.Left message for patient to contact Dr. Tejada's office. Will order next dose for in office if no response from patient so patient does not miss a dose. * Telephone Encounter - Rosio Hutchins LPN - 06/13/2019 10:09 AM EDT Left a message for her to call us back to see if she is comfortable using the auto injector. * Telephone Encounter - Kelsi Tejada MD - 06/11/2019 11:31 AM EDT Check with patient she is comfortable doing it at home first, if comfortable then home * Telephone Encounter - Nola Campbell R.N. - 06/11/2019 10:49 AM EDT This patient is a monthly Nucala.in the office. Would you prefer this remains in the office or should I pursue autoinjector for home injectioN? documented in this encounter Plan of Treatment Not on file documented as of this encounter Visit Diagnoses Not on filedocumented in this encounter Care Teams Cattle Broker Relationship Specialty Start Date End Date Teressa Solis DO PCP - General Internal Medicine 12/18/13 09/15/20 Mina Pretty DO PCP - General Internal Medicine 09/16/20 1 Shweta Tellez MD PCP - General Internal Medicine 01/12/21 10/10/21 Ora Ronquillo MD 444 [place] [address] PCP - General Internal Medicine 10/11/21 Jl Mendez MD [address] [place] [address] Dr Mont[address] [place] [address] Specialist Cardiovascular Disease 10/13/21 Jannette Boudreaux MD 175 [facility] 300 [place] [address] Surgeon Neurosurgery 04/07/22 Tenisha Mendieta PA-C [address] [address] Specialist Neurosurgery 04/07/22 Julio Monk PA-C 175 [facility] 300 [place] [address] Specialist Neurosurgery 04/07/22 Luis Armando Eller MD 175 [facility] 250 [place] [address] Specialist ORTHOPEDIC SURGERY 10/01/23 Jayesh Pineda MD 305 [place] [address] Specialist Endocrinology 10/01/23 Kelsi Tejada MD 305 [place] [address] Specialist Allergy & Immunology 10/01/23 Pretty Le MD 175 [facility] [address] [place] [address] Specialist Pulmonology 10/01/23 Vesta Michael PA-C 300 [facility] [address] [place] [address] Specialist Vascular Surgery 10/01/23 [facility] [address] [place] [address] Specialist Optometry 10/01/23 documented as of this encounter
--- OUTSIDE RECORDS SUMMARY | 2024-04-22 10:15 | XMS_ITS | Encounter Summary ---
Author Organization [facility] Address [address] [place] [address] Care Team Providers Care Restaurant Shift Leader Name Role Phone Ora Ronquillo MD Primary Care Prov ider Jl Mendez MD Unavailable Jannette Boudreaux MD Unavailable [phone] Tenisha Mendieta PA-C Unavailable Julio Monk PA-C Unavailable Luis Armando Eller MD Unavailable [phone] Jayesh Pineda MD Unavailable Kelsi Tejada MD Unavailable Unavailable Pretty Le MD Unavailable Vesta Michael PA-C Unavailable [facility] Unavailable [phone] Encounter Details Date Type Department Care Team Description 09/19/2023 Refill Endocrinology - [place] [address] [place] [address] Jayesh Pineda MD 305 [place], [place] [id number] Social History Tobacco Use Types Packs/Day Years Used Date Smoking Tobacco: Never Smokeless Tobacco: Never Alcohol Use Standard Drinks/Week Comments No 0 (1 standard drink = 0.6 oz pur e alcohol) Education Answer Date Recorded What is the highest level of school you have completed or the highest degree you have received? 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, ADDICTIONS COUNSELOR ASSISTANT, CHANDRAKANT) 06/14/2020 Sex Assigned at Date Recorded Female 08/03/2020 10:16 PM EDT Job Start Date Occupation Industry Not on file Not on file Not on file documented as of this encounter Miscellaneous Notes * Telephone Encounter - Darrick Yang R.N. - 09/20/2023 8:59 AM EDT [place] 03/14/23 OV 10/04/23 documented in this encounter Plan of Treatment Not on file documented as of this encounter Visit Diagnoses Diagnosis Type 2 diabetes mellitus with other specified complication, without long-term current use of insulin (HCC) documented in this encounter Care Teams Restaurant Shift Leader Relationship Specialty Start Date End Date Ora Ronquillo MD [address] [place] [address] PCP - General Internal Medicine 10/11/21 Jl Mendez MD [address] [place] [address] Dr Montiel [address] [place] [address] Specialist Cardiovascular Disease 10/13/21 Jannette Boudreaux MD [address] [address] Surgeon Neurosurgery 04/07/22 Tenisha Mendieta PA-C [address] [address] Specialist Neurosurgery 04/07/22 Julio Monk PA-C 175 [facility] [address] [place] [address] Specialist Neurosurgery 04/07/22 Luis Armando Eller MD [address] [address] Specialist ORTHOPEDIC SURGERY 10/01/23 Jayesh Pineda MD 305 [place] [address] Specialist Endocrinology 10/01/23 Kelsi Tejada MD 305 [place] [address] Specialist Allergy & Immunology 10/01/23 Pretty Le MD 175 [facility] [address] [place] [address] Specialist Pulmonology 10/01/23 Vesta Michael PA-C 300 [facility] 210 [place] [address] Specialist Vascular Surgery 10/01/23 [facility] 46 [place] [address] Specialist Optometry 10/01/23 documented as of this encounter
--- OUTSIDE RECORDS SUMMARY | 2024-04-22 10:15 | XMS_ITS | Encounter Summary ---
Author Organization [facility] Address [address] [place] [address] Care Team Providers Care Buffet Manager Name Role Phone Shweta Tellez MD Primary Care Provider Ora Diaz MD Primary Care Prov ider Jl Mendez MD Unavailable Jannette Boudreaux MD Unavailable [phone] Tenisha Mendieta PA-C Unavailable Julio Monk PA-C Unavailable Luis Armando Eller MD Unavailable [phone] Jayesh Pineda MD Unavailable Kelsi Tejada MD Unavailable Unavailable Pretty Le MD Unavailable Vesta Michael PA-C Unavailable [phone] [facility] Unavailable [phone] Reason for Visit * Reason Onset Date Comments heartburn 08/31/2021 Encounter Details Date Type Department Care Team Description 08/31/2021 Telephone Adult Medicine [address] [id number] Shweta Tellez MD heartburn Social History Tobacco Use Types Packs/Day Years Used Date Smoking Tobacco: Never Smokeless Tobacco: Never Alcohol Use Standard Drinks/Week Comments No 0 (1 standard drink = 0.6 oz pur e alcohol) Education Answer Date Recorded What is the highest level of school you have completed or the highest degree you have received? 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, CAN TOP SETTER, CHANDRAKANT) 06/14/2020 Sex Assigned at Date Recorded [...] encounter Miscellaneous Notes * Telephone Encounter - Nupur Pressley - 09/01/2021 9:20 AM EDT Patient has booked with Jorge for tomorrow at 10am. * Telephone Encounter - Briana Ho R.N. - 08/31/2021 11:16 AM EDT Spoke with the patient she was [place] [facility] [place]. Was advised to f/u with gastro for this issue Last night was the worst. Has an appt with gastro but not until 11/10 Taking omeprazole BID but is not working She is asking if we can try and move the gastro appt sooner Please advise The patient is aware the pcp is not in office until Sunday, ok to wait * Telephone Encounter - Chata Monroy - 08/31/2021 9:35 AM EDT Symptoms patient is presenting: patient states that she has heartburn For ALL patients calling to schedule any appointment (routine, sick visit, follow up, consult, etc.) in the outpatient setting please ask the following questions: ?? Do you have fever of higher than 101, sore throat with difficulty swallowing or severe shortnessof breath? NO If YES to any of these above symptoms, send a message to triage and do not book. Red dot. If no, an audio or video visit should be booked. ?? Have you had close contact with someone with Coronavirus in the last 14 days? NO ?? Have you traveled abroad? NO ?? Have you traveled recently to another state outside of [place], [place], [place], [place], [place], [place], [place]? NO o If yes, did you quarantine for 14 days or have a negative covid test? NO If yes to any of the above, patient is not to be scheduled in office until after 14 day quarantine or negative covid test. If pain or injury related was it due to an accident at work or from a motor vehicle accident? NO If yes, gather 3rd green party insurance information Date of accident/Injury: How long has patient had these symptoms?: 1.5 weeks PCP: Shweta Tellez Payor: [employer] FFS / Plan: [employer] / Product Type: MEDICAID RISK documented in this encounter Plan of Treatment Not on file documented as of this encounter Visit Diagnoses Not on filedocumented in this encounter Care Teams Buffet Manager Relationship Specialty Start Date End Date Shweta Tellez MD PCP - General Internal Medicine 01/12/21 10/10/21 Ora Ronquillo MD [address] [place] [address] PCP - General Internal Medicine 10/11/21 Jl Mendez MD [address] [place] [address] [place] [address] Specialist Cardiovascular Disease 10/13/21 Jannette Boudreaux MD [address] [address] Surgeon Neurosurgery 04/07/22 Tenisha Mendieta PA-C [address] [address] Specialist Neurosurgery 04/07/22 Julio Monk PA-C [address] [address] Specialist Neurosurgery 04/07/22 Luis Armando Eller MD 175 [facility] [address] [place] [address] Specialist ORTHOPEDIC SURGERY 10/01/23 Jayesh Pineda MD [address] [place] [address] Specialist Endocrinology 10/01/23 Kelsi Tejada MD 305 [place] [address] Specialist Allergy & Immunology 10/01/23 Pretty Le MD 175 [facility] [address] [place] [address] Specialist Pulmonology 10/01/23 Vesta Michael PA-C 300 [facility] [address] [place] [address] Specialist Vascular Surgery 10/01/23 [facility] [address] [place] [address] Specialist Optometry 10/01/23 documented as of this encounter
--- OUTSIDE RECORDS SUMMARY | 2024-04-22 10:15 | XMS_ITS | Encounter Summary ---
Author Organization [facility] Address [address] [place] [address] Care Team Providers Care Utilities Service Investigator Name Role Phone Ora Ronquillo MD Primary Care Prov ider Jl Mendez MD Unavailable Jannette Boudreaux MD Unavailable [phone] Tenisha Mendieta PA-C Unavailable [phone] Julio Monk PA-C Unavailable Luis Armando Eller MD Unavailable [phone] Jayesh Pineda MD Unavailable Kelsi Tejada MD Unavailable Unavailable Pretty Le MD Unavailable Vesta Michael-Pina Unavailable [phone] [facility] Unavailable [phone] Encounter Details Date Type Department Care Team Description 10/11/2021 SCAN [facility]io [facility] [address] [facility] [address] [place] [address] Abstract, Provider Social History Tobacco Use Types Packs/Day Years Used Date Smoking Tobacco: Never Smokeless Tobacco: Never Alcohol Use Standard Drinks/Week Comments No 0 (1 standard drink = 0.6 oz pur e alcohol) Education Answer Date Recorded What is the highest level of school you have completed or the highest degree you have received? Master's degree (e.g., [employer]ANIA, MS, Lexi, Joel, TOOL MACHINE SHOP SUPERVISOR, CHANDRAKANT) 06/14/2020 Sex Assigned at Date Recorded Female 08/03/2020 10:16 PM EDT Job Start Date Occupation Industry Not on file Not on file Not on file COVID-19 Exposure Response Date Recorded In the last 10 days, have yo u been in contact with someone who was confirmed or suspected to have Coronavirus/COVID-19? No / Unsure 10/11/2021 8:57 AM EDT documented as of this encounter Plan of Treatment Not on file documented as of this encounter Visit Diagnoses Not on filedocumented in this encounter Care Teams Utilities Service Investigator Relationship Specialty Start Date End Date Ora Ronquillo MD [address] [place] [address] PCP - General Internal Medicine 10/11/21 Jl Mendez MD [address] [place] [address] Dr Montiel [address] [place] [address] Specialist Cardiovascular Disease 10/13/21 Jannette Boudreaux MD [address] [address] Surgeon Neurosurgery 04/07/22 Tenisha Mendieta PA-C [address] [address] Specialist Neurosurgery 04/07/22 Julio Monk PA-C 175 [facility] 300 [place] [address] Specialist Neurosurgery 04/07/22 Luis Armando Eller MD [address] [address] Specialist ORTHOPEDIC SURGERY 10/01/23 Jayesh Pineda MD 305 [place] [address] Specialist Endocrinology 10/01/23 Kelsi Tejada MD 305 [place] [address] Specialist Allergy & Immunology 10/01/23 Pretty Le MD 175 [facility] [address] [place] [address] Specialist Pulmonology 10/01/23 Vesta Michael PA-C 300 [facility] 210 [place] [address] Specialist Vascular Surgery 10/01/23 [facility] [address] [place] [address] Specialist Optometry 10/01/23 documented as of this encounter
--- OUTSIDE RECORDS SUMMARY | 2024-04-22 10:16 | XMS_ITS | Encounter Summary ---
Author Organization [facility] Address [address] [place] [address] Care Team Providers Care Filter Washer Name Role Phone Teressa Solis DO Primary Care Pro vider Unavailable Mina Pretty DO Primary Care Provider Shweta Cronin MD Primary Care Provider Ora Diaz MD Primary Care Prov ider Jl Mendez MD Unavailable Jannette Boudreaux MD Unavailable [phone] Tenisha Mendieta PA-C Unavailable Julio Monk PA-C Unavailable [phone] Luis Armando Eller MD Unavailable [phone] Jayesh Pineda MD Unavailable Kelsi Tejada MD Unavailable Unavailable Pretty Le MD Unavailable Vesta Michael PA-C Unavailable [phone] [facility] Unavailable Encounter Details Date Type Department Care Team Description 04/07/2020 Pharmacy Aide Report Medical Records [address] [place] [address] [facility] Social History Tobacco Use Types Packs/Day [...] on filedocumented in this encounter Care Teams Filter Washer Relationship Specialty Start Date End Date Teressa Solis DO PCP - General Internal Medicine 12/18/13 09/15/20 Mina Pretty DO PCP - General Internal Medicine 09/16/20 Shweta Boucher MD PCP - General Internal Medicine 01/12/21 10/10/21 Ora Ronquillo MD [address] [place] [address] PCP - General Internal Medicine 10/11/21 Jl Mendez MD [address] [place] [address] Dr Mont[address] [place] [address] Specialist Cardiovascular Disease 10/13/21 Jannette Boudreaux MD [address] [address] Surgeon Neurosurgery 04/07/22 Tenisha Mendieta PA-C [address] [address] Specialist Neurosurgery 04/07/22 Julio Mnok PA-C 175 [facility] [address] [place] [address] Specialist Neurosurgery 04/07/22 Luis Armando Eller MD [address] [address] Specialist ORTHOPEDIC SURGERY 10/01/23 Jayesh Pineda MD [address] [place] [address] Specialist Endocrinology 10/01/23 Kelsi Tejada MD 305 [place] [address] Specialist Allergy & Immunology 10/01/23 Pretty Le MD 175 [facility] [address] [place] [address] Specialist Pulmonology 10/01/23 Vesta Michael PA-C 300 [facility] [address] [place] [address] Specialist Vascular Surgery 10/01/23 [facility] [address] [place], [place] [address] Specialist Optometry 10/01/23 documented as of this encounter
--- OUTSIDE RECORDS SUMMARY | 2024-04-22 10:16 | XMS_ITS | Encounter Summary ---
Author Organization [facility] Address [address] [place] [address] Care Team Providers Care Order Clerk Name Role Phone Teressa Solis DO Primary Care Pro vider Unavailable Mina Pretty DO Primary Care Provider Shweta Cronin MD Primary Care Provider Ora Diaz MD Primary Care Prov ider Jl Mendez MD Unavailable Jannette Boudreaux MD Unavailable [phone] Tenisha Mendieta PA-C Unavailable Julio Monk PA-C Unavailable [phone] Luis Armando Eller MD Unavailable [phone] Jayesh Pineda MD Unavailable Kelsi Tejada MD Unavailable Unavailable Pretty Le MD Unavailable Vesat Michael PA-C Unavailable [phone] [facility] Unavailable [phone] Encounter Details Date Type Department Care Team Description 09/29/2019 Hospital Medical Records [address] [place] [address] Luis Armando Staton MD Social History Tobacco Use Types Packs/Day Years Used Date Smoking Tobacco: Never Smokeless Tobacco: Never Alcohol Use Standard Drinks/Week Comments No 0 (1 standard drink = 0.6 oz pur e alcohol) Education Answer Date Recorded What is the highest level of school you have completed or the highest degree you have received? 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) 06/14/2020 Sex Assigned at Date Recorded Female 08/03/2020 10:16 PM EDT Job Start Date Occupation Industry Not on file Not on file Not on file documented as of this encounter Plan of Treatment Not on file documented as of this encounter Visit Diagnoses Not on filedocumented in this encounter Care Teams Order Clerk Relationship Specialty Start Date End Date Teressa Solis DO PCP - General Internal Medicine 12/18/13 09/15/20 Mina Pretty DO PCP - General Internal Medicine 09/16/20 Shweta Boucher MD PCP - General Internal Medicine 01/12/21 10/10/21 Ora Ronquillo MD [address] [place] [address] PCP - General Internal Medicine 10/11/21 Jl Mendez MD [address] [place] [address] Dr Montiel [address] [place] [address] Specialist Cardiovascular Disease 10/13/21 Jannette Boudreaux MD [address] [address] Surgeon Neurosurgery 04/07/22 Tenisha Mendieta PA-C [address] [address] Specialist Neurosurgery 04/07/22 Julio Monk PA-C 175 [facility] [address] [place] [address] Specialist Neurosurgery 04/07/22 Luis Armando Eller MD [address] [address] Specialist ORTHOPEDIC SURGERY 10/01/23 Jayesh Pineda MD 305 [place] [address] Specialist Endocrinology 10/01/23 Kelsi Tejada MD 305 [place] [address] Specialist Allergy & Immunology 10/01/23 Pretty Le MD 175 [facility] [address] [place] [address] Specialist Pulmonology 10/01/23 Vesta Michael PA-C 300 [facility] 210 [place] [address] Specialist Vascular Surgery 10/01/23 [facility] [address] [place] [address] Specialist Optometry 10/01/23 documented as of this encounter
--- OUTSIDE RECORDS SUMMARY | 2024-04-22 10:16 | XMS_ITS | Encounter Summary ---
Author Organization [facility] [place] [facility] Address [address] [place] [address] Care Team Providers Care Foreign Car Mechanic Name Role Phone Teressa Solis DO Primary Care Pro vider Unavailable Mina Pretty DO Primary Care Provider Shweta Cronin MD Primary Care Provider Ora Diaz MD Primary Care Prov ider Jl Mendez MD Unavailable [phone] Jannette Boudreaux MD Unavailable [phone] Tenisha Mendieta PA-C Unavailable Julio Monk PA-C Unavailable [phone] Luis Armando Elelr MD Unavailable [phone] Jayesh Pineda MD Unavailable Kelsi Tejada MD Unavailable Unavailable Pretty Le MD Unavailable Vesta Michael PA-C Unavailable [phone] [facility] Unavailable [phone] Encounter Details Date Type Department Care Team Description 04/25/2017 Hospital Medical Records 4 [place] [address] Jovanny Strange Social History Tobacco Use Types Packs/Day Years Used Date Smoking Tobacco: Never Smokeless Tobacco: Never Alcohol Use Standard Drinks/Week Comments No 0 (1 standard drink = 0.6 oz pur e alcohol) Education Answer Date Recorded What is the highest level of school you have completed or the highest degree you have received? 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, FISH CHECKER, CHANDRAKANT) 06/14/2020 Sex Assigned at Date Recorded Female 08/03/2020 10:16 PM EDT Job Start Date Occupation Industry Not on file Not on file Not on file documented as of this encounter Plan of Treatment Not on file documented as of this encounter Visit Diagnoses Not on filedocumented in this encounter Care Teams Foreign Car Mechanic Relationship Specialty Start Date End Date Teressa Solis, PCP - General Internal Medicine 12/18/13 09/15/20 Mina Pretty DO PCP - General Internal Medicine 09/16/20 Shweta Boucher MD PCP - General Internal Medicine 01/12/21 10/10/21 Ora Ronquillo MD [address] [place] [address] PCP - General Internal Medicine 10/11/21 Jl Mendez MD [address] [place] [address] Dr Montiel [address] [place] [address] Specialist Cardiovascular Disease 10/13/21 Jannette Boudreaux MD [address] [address] Surgeon Neurosurgery 04/07/22 Tenisha Mendieta PA-C [address] [address] Specialist Neurosurgery 04/07/22 Julio Monk PA-C 175 [facility] [address] [place] [address] Specialist Neurosurgery 04/07/22 Luis Armando Eller MD [address] [address] Specialist ORTHOPEDIC SURGERY 10/01/23 Jayesh Pineda MD [address] [place] [address] Specialist Endocrinology 10/01/23 Kelsi Tejada MD 305 [place] [address] Specialist Allergy & Immunology 10/01/23 Pretty Le MD 175 [facility] [address] [place] [address] Specialist Pulmonology 10/01/23 Vesta Michael PA-C 300 [facility] 210 [place] [address] Specialist Vascular Surgery 10/01/23 [facility] [address] [place] [address] Specialist Optometry 10/01/23 documented as of this encounter
--- OUTSIDE RECORDS SUMMARY | 2024-04-22 10:16 | XMS_ITS | Encounter Summary ---
Author Organization [facility] Address [address] [place] [address] Care Team Providers Care Data Reduction Technician Name Role Phone Teressa Solis DO Primary Care Pro vider Unavailable Mina Pretty DO Primary Care Provider Ailyn Shweta Pretty MD Primary Care Provider Ora Diaz MD Primary Care Prov ider Jl Mendez MD Unavailable Jannette Boudreaux MD Unavailable [phone] Tenisha Mendieta PA-C Unavailable Julio Monk PA-C Unavailable Luis Armando Eller MD Unavailable [phone] Jayesh Pineda MD Unavailable Kelsi Tejada MD Unavailable Unavailable Pretty Le MD Unavailable Vesta Michael PA-C Unavailable [facility] Unavailable Reason for Visit * Reason Onset Date Comments other 11/25/2019 covid screen Encounter Details Date Type Department Care Team Description 11/25/2019 Telephone Vascular Surgery - [place] [address] [place] [address] Vesta Michael PA-C 300 [facility] [address] [place] [address] other (covid screen) Social History Tobacco Use Types Packs/Day Years [...] encounter Miscellaneous Notes * Telephone Encounter - Danielle Mccartney - 11/25/2019 3:01 PM EDT PT WAS CALLED TO BE SCREENED FOR COVID.LVM FOR PT TO CALL IF HAVING SYMPTOMS. documented in this encounter Plan of Treatment Not on file documented as of this encounter Visit Diagnoses Not on filedocumented in this encounter Care Teams Data Reduction Technician Relationship Specialty Start Date End Date Teressa Solis DO PCP - General Internal Medicine 12/18/13 09/15/20 Mina Pretty DO PCP - General Internal Medicine 09/16/20 1 Shweta Tellez MD PCP - General Internal Medicine 01/12/21 10/10/21 Ora Ronquillo MD [address] [place] [address] PCP - General Internal Medicine 10/11/21 Jl Mendez MD [address] [place] [address] [place] [address] Specialist Cardiovascular Disease 10/13/21 Jannette Boudreaux MD [address] [address] Surgeon Neurosurgery 04/07/22 Tenisha Mendieta PA-C [address] [facility] 300 [place] [address] Specialist Neurosurgery 04/07/22 Julio Monk PA-C 175 [facility] 300 [place] [address] Specialist Neurosurgery 04/07/22 Luis Armando Eller MD [address] [facility] 250 [place] [address] Specialist ORTHOPEDIC SURGERY 10/01/23 Jayesh Pineda MD 305 [place] [address] Specialist Endocrinology 10/01/23 Kelsi Tejada MD 305 [place] [address] Specialist Allergy & Immunology 10/01/23 Pretty Le MD 175 [facility] 200 [place] [address] Specialist Pulmonology 10/01/23 Vesta Michael PA-C 300 [facility] 210 [place] [address] Specialist Vascular Surgery 10/01/23 [facility] [address] [place] [address] Specialist Optometry 10/01/23 documented as of this encounter
--- OUTSIDE RECORDS SUMMARY | 2024-04-22 10:16 | XMS_ITS | Encounter Summary ---
Author Organization [facility] Address [address] [place] [address] Care Team Providers Care Audioprosthologist Name Role Phone Teressa Solis DO Primary Care Pro vider Unavailable Mina Pretty DO Primary Care Provider Shweta Cronin MD Primary Care Provider Ora Diaz MD Primary Care Prov ider Jl Mendez MD Unavailable Jannette Boudreaux MD Unavailable [phone] Tenisha Mendieta PA-C Unavailable Julio Monk PA-C Unavailable Luis Armando Eller MD Unavailable [phone] Jayesh Pineda MD Unavailable Kelsi Tejada MD Unavailable Unavailable Pretty Le MD Unavailable Vesta Michael PA-C Unavailable [facility] Unavailable Reason for Visit * Reason Comments E-prescribe Rx Request Encounter Details Date Type Department Care Team Description 10/06/2019 Refill Adult Medicine [address] [address] Farrah Rodriguez, DONN E-prescribe Rx Request Social History Tobacco Use [...] Telephone Encounter - Lubna Thornton M.A. - 10/06/2019 2:43 PM EDT Lab Results Component Value Date NA 136 08/19/2019 K 3.7 08/19/2019 CO2 31 08/19/2019 CL 102 08/19/2019 BUN 10 08/19/2019 CREAT 0.69 08/19/2019 GLU 111 08/19/2019 CA 10.3 08/19/2019 GFR > 60 08/19/2019 Last ov with pcp 08/19/19 * Telephone Encounter - Mehdi Villegas - 10/06/2019 2:34 PM EDT MAIL ORDER REFILL REQUEST When was the patients last visit with PCP?: 08/19/2019 When was the patients last visit in Medicine: 08/19/2019 Does the patient have a future appointment? Yes 10/16/2019 Is the doctor here today?: YES Is the med requested on the list?:Yes What mail order pharmacy does patient have?: [facility] Let the patient know that if their pharmacy is participating we will automatically route this mail order refill to them via their mail order pharmacy. Is the following the patients current home address: [address] [place] [address] yes If their mail order pharmacy is NOT a participating pharmacy we can: Is this the patients current medical insurance carrier? Payor: [employer] FFS / Plan: 20:20 [employer] / Product Type: MEDICAID RISK YES documented in this encounter Plan of Treatment Not on file documented as of this encounter Visit Diagnoses Not on filedocumented in this encounter Care Teams Audioprosthologist Relationship Specialty Start Date End Date Teressa Solis DO PCP - General Internal Medicine 12/18/13 09/15/20 Mina Pretty DO PCP - General Internal Medicine 09/16/20 1 Shweta Tellez MD PCP - General Internal Medicine 01/12/21 10/10/21 Ora Ronquillo MD 444 [place] [address] PCP - General Internal Medicine 10/11/21 Jl Mendez MD [address] [place] [address] Dr Montiel [address] [place] [address] Specialist Cardiovascular Disease 10/13/21 Jannette Boudreaux MD 175 [facility] 300 [place] [address] Surgeon Neurosurgery 04/07/22 Tenisha Mendieta PA-C 175 [facility] 300 [place] [address] Specialist Neurosurgery 04/07/22 Julio Monk PA-C 175 [facility] 300 [place] [address] Specialist Neurosurgery 04/07/22 Luis Armando Eller MD 175 [facility] 250 [place] [address] Specialist ORTHOPEDIC SURGERY 10/01/23 Jayesh Pineda MD 305 [place] [address] Specialist Endocrinology 10/01/23 Kelsi Tejada MD 305 [place] [address] Specialist Allergy & Immunology 10/01/23 Pretty Le MD 175 [facility] 200 [place] [address] Specialist Pulmonology 10/01/23 Vesta Michael PA-C 300 [facility] [address] [place] [address] Specialist Vascular Surgery 10/01/23 [place] 46 [place] [address] Specialist Optometry 10/01/23 documented as of this encounter
--- OUTSIDE RECORDS SUMMARY | 2024-04-22 10:16 | XMS_ITS | Encounter Summary ---
Author Organization [facility] Address [address] [place] [address] Care Team Providers Care Paperboard Machine Operator Name Role Phone Teressa Soils DO Primary Care Pro vider Unavailable Mina Pretty DO Primary Care Provider Shweta Cronin MD Primary Care Provider Ora Diaz MD Primary Care Prov ider Jl Mendez MD Unavailable Jannette Boudreaux MD Unavailable [phone] Tenisha Mendieta PA-C Unavailable [phone] Julio Monk PA-C Unavailable [phone] Luis Armando Eller MD Unavailable [phone] Jayesh Pineda MD Unavailable Kelsi Tejada MD Unavailable Unavailable Pretty Le MD Unavailable Vesta Michael PA-C Unavailable [phone] [facility] Unavailable Encounter Details Date Type Department Care Team Description 02/06/2017 Rn Liaison Report Medical Records [address] [place] [address] Jeff Ogden MD Social History Tobacco Use [...] on filedocumented in this encounter Care Teams Paperboard Machine Operator Relationship Specialty Start Date End Date Teressa Solis DO PCP - General Internal Medicine 12/18/13 09/15/20 Mina Pretty DO PCP - General Internal Medicine 09/16/20 Shweta Boucher MD PCP - General Internal Medicine 01/12/21 10/10/21 Ora Ronquillo MD [address] [place] [address] PCP - General Internal Medicine 10/11/21 Jl Mendez MD [address] [place] [address] Specialist Cardiovascular Disease 10/13/21 Jannette Boudreaux MD [address] [address] Surgeon Neurosurgery 04/07/22 Tenisha Mendieta PA-C [address] [address] Specialist Neurosurgery 04/07/22 Julio Monk PA-C [address] [address] Specialist Neurosurgery 04/07/22 Luis Armando Eller MD [address] [address] Specialist ORTHOPEDIC SURGERY 10/01/23 Jayesh Pineda MD [address] [place] [address] Specialist Endocrinology 10/01/23 Kelsi Tejada MD [address] [place] [address] Specialist Allergy & Immunology 10/01/23 Pretty Le MD 175 [facility] [address] [place] [address] Specialist Pulmonology 10/01/23 Vesta Michael PA-C 300 [facility] 210 [place] [address] Specialist Vascular Surgery 10/01/23 [facility] [address] [place] [address] Specialist Optometry 10/01/23 documented as of this encounter
--- OUTSIDE RECORDS SUMMARY | 2024-04-22 10:16 | XMS_ITS | Encounter Summary ---
Author Organization [facility] Address [address] [place] [address] Care Team Providers Care Railroad Dining Car Steward/Stewardess Name Role Phone Teressa Solis DO Primary Care Pro vider Unavailable Mina Pretty DO Primary Care Provider Ailyn Shweta Pretty MD Primary Care Provider Ora Diaz MD Primary Care Prov ider Jl Mendez MD Unavailable Jannette Boudreaux MD Unavailable [phone] Tenisha Mendieta PA-C Unavailable Julio Monk PA-C Unavailable [phone] Luis Armando Eller MD Unavailable [phone] Jayesh Pineda MD Unavailable Kelsi Tejada MD Unavailable Unavailable Pretty Le MD Unavailable Vesta Michael PA-C Unavailable [phone] [facility] Unavailable Encounter Details Date Type Department Care Team Description 03/03/2020 Patient Financial Advocate Report Medical Records [address] [place] [address] Meg Mc Social History Tobacco Use Types Packs/Day Years [...] on filedocumented in this encounter Care Teams Railroad Dining Car Steward/Stewardess Relationship Specialty Start Date End Date Teressa Solis DO PCP - General Internal Medicine 12/18/13 09/15/20 Mina Pretty DO PCP - General Internal Medicine 09/16/20 Shweta Boucher MD PCP - General Internal Medicine 01/12/21 10/10/21 Ora Ronquillo MD [address] [place] [address] PCP - General Internal Medicine 10/11/21 Jl Mendez MD [address] [place] [address] Specialist Cardiovascular Disease 10/13/21 Jannette Boudreaux MD [address] [address] Surgeon Neurosurgery 04/07/22 Tenisha Mendieta PA-C [address] [address] Specialist Neurosurgery 04/07/22 Julio Monk PA-C [address] [address] Specialist Neurosurgery 04/07/22 Luis Armando Eller MD [address] [address] Specialist ORTHOPEDIC SURGERY 10/01/23 Jayesh Pineda MD 305 [place] [address] Specialist Endocrinology 10/01/23 Kelsi Tejada MD 305 [place] [address] Specialist Allergy & Immunology 10/01/23 Pretty eL MD 175 [facility] [address] [place] [address] Specialist Pulmonology 10/01/23 Vesta Michael PA-C 300 [facility] [address] [place] [address] Specialist Vascular Surgery 10/01/23 [facility] [address] [place] [address] Specialist Optometry 10/01/23 documented as of this encounter
--- OUTSIDE RECORDS SUMMARY | 2024-04-22 10:16 | XMS_ITS | Encounter Summary ---
Author Organization [facility] Address [address] [place] [address] Care Team Providers Care Construction Economist Name Role Phone Teressa Solis DO Primary Care Pro vider Unavailable Mina Pretty DO Primary Care Provider Shweta Cronin MD Primary Care Provider Ora Diaz MD Primary Care Prov ider Jl Mendez MD Unavailable [phone] Jannette Boudreaux MD Unavailable [phone] Tenisha Mendieta PA-C Unavailable [phone] Julio Monk PA-C Unavailable Luis Armando Eller MD Unavailable [phone] Jayesh Pineda MD Unavailable Kelsi Tejada MD Unavailable Unavailable Pretty Le MD Unavailable Vesta Michael PA-C Unavailable [facility] Unavailable Reason for Visit * Reason Onset Date Comments Mychart Rx Refill 11/14/2019 Encounter Details Date Type Department Care Team Description 11/14/2019 Refill Adult Medicine [address] [address] Teressa Solis DO Mychart Rx Refill Social History Tobacco Use Types Packs/Day Years [...] Telephone Encounter - Lubna Thornton M.A. - 11/19/2019 8:56 AM EDT Lab Results Component Value Date NA 136 08/19/2019 K 3.7 08/19/2019 CO2 31 08/19/2019 CL 102 08/19/2019 BUN 10 08/19/2019 CREAT 0.69 08/19/2019 GLU 111 08/19/2019 CA 10.3 08/19/2019 GFR > 60 08/19/2019 Last appt with pcp 08/19/19 documented in this encounter Plan of Treatment Not on file documented as of this encounter Visit Diagnoses Not on filedocumented in this encounter Care Teams Construction Economist Relationship Specialty Start Date End Date Teressa Solis DO PCP - General Internal Medicine 12/18/13 09/15/20 Mina Pretty DO PCP - General Internal Medicine 09/16/20 1 Shweta Tellez MD PCP - General Internal Medicine 01/12/21 10/10/21 Ora Ronquillo MD [address] [place] [address] PCP - General Internal Medicine 10/11/21 Jl Mendez MD [address] [place] [address] [place] [address] Specialist Cardiovascular Disease 10/13/21 Jannette Boudreaux MD [address] [address] Surgeon Neurosurgery 04/07/22 Tenisha Mendieta PA-C 175 [address] [place] [address] Specialist Neurosurgery 04/07/22 Julio Monk PA-C 175 [facility] 300 [place] [address] Specialist Neurosurgery 04/07/22 Luis Armando Eller MD 175 [facility] 250 [place] [address] Specialist ORTHOPEDIC SURGERY 10/01/23 Jayesh Pineda MD 305 [place] [address] Specialist Endocrinology 10/01/23 Kelsi Tejada MD 305 [place] [address] Specialist Allergy & Immunology 10/01/23 Pretty Le MD 175 [facility] 200 [place] [address] Specialist Pulmonology 10/01/23 Vesta Michael PA-C 300 [facility] 210 [place] [address] Specialist Vascular Surgery 10/01/23 [facility] [address] [place] [address] Specialist Optometry 10/01/23 documented as of this encounter
--- OUTSIDE RECORDS SUMMARY | 2024-04-22 10:16 | XMS_ITS | Encounter Summary ---
Author Organization [facility] Address [address] [place] [address] Care Team Providers Care Mr Teacher Name Role Phone Teressa Solis DO Primary Care Pro vider Unavailable Mina Pretty DO Primary Care Provider Shweta Cronin MD Primary Care Provider Ora Diaz MD Primary Care Prov ider Jl Mendez MD Unavailable Jannette Boudreaux MD Unavailable [phone] Tenisha Mendieta PA-C Unavailable Julio Monk PA-C Unavailable [phone] Luis Armando Eller MD Unavailable [phone] Jayesh Pineda MD Unavailable Kelsi Tejada MD Unavailable Unavailable Pretty Le MD Unavailable Vesta Michael PA-C Unavailable [phone] [facility] Unavailable Encounter Details Date Type Department Care Team Description 03/26/2020 Chief Nurse Executive Report Medical Records 4 [place] [address] Randy Domínguez MD Social History Tobacco Use [...] on filedocumented in this encounter Care Teams Mr Teacher Relationship Specialty Start Date End Date Teressa Solis DO PCP - General Internal Medicine 12/18/13 09/15/20 Mina Pretty DO PCP - General Internal Medicine 09/16/20 Shweta Boucher MD PCP - General Internal Medicine 01/12/21 10/10/21 Ora Ronquillo MD [address] [place] [address] PCP - General Internal Medicine 10/11/21 Jl Mendez MD [address] [place] [address] Dr Montiel [address] [place] [address] Specialist Cardiovascular Disease 10/13/21 Jannette Boudreaux MD [address] [address] Surgeon Neurosurgery 04/07/22 Tenisha Mendieta PA-C [address] [address] Specialist Neurosurgery 04/07/22 Julio Monk PA-C [address] [address] Specialist Neurosurgery 04/07/22 Luis Armando Eller MD [address] [address] Specialist ORTHOPEDIC SURGERY 10/01/23 Jayesh Pineda MD [address] [place] [address] [place] [address] Specialist Endocrinology 10/01/23 Kelsi Tejada MD 305 [place] [address] Specialist Allergy & Immunology 10/01/23 Pretty Le MD 175 [facility] [address] [place] [address] Specialist Pulmonology 10/01/23 Vesta Michael PA-C 300 [facility] 210 [place] [address] Specialist Vascular Surgery 10/01/23 [facility] [address] [place] [address] Specialist Optometry 10/01/23 documented as of this encounter
[2024-04-22 11:26] LABS: Basophils Absolute Auto 0.1 X10*3/uL (0.0-0.2); Basophils Percent Auto 0.9 % (0-2); Eosinophils Absolute Auto 0.2 X10*3/uL (0.0-0.4); Eosinophils Percent Auto 2.6 % (0-4); Imm Gran Abs Auto 0.03 X10*3/uL (0.00-0.03); Imm Gran Pct Auto 0.4 % (0.0-0.4); Lymphocytes Absolute Auto 1.7 X10*3/uL (1.2-4.9); Lymphocytes Percent Auto 24.9 % (20-40); Mean Corpuscular HGB Conc 31.8 g/dl (31.0-35.0); Mean Corpuscular Hemoglobin 27.5 pg (27.0-33.0); Mean Corpuscular Volume 86.3 fL (80.0-98.0); Mean Platelet Volume 11.8 fL (9.4-12.3); Monocytes Absolute Auto 0.4 X10*3/uL (0.1-1.2); Monocytes Percent Auto 6.4 % (2-11); Neutrophils Absolute Auto 4.4 x10*3/uL (2.0-8.3); Neutrophils Percent Auto 64.8 % (45-73); Platelet Count 228 X10*3/uL (160-400); Red Cell Distribution Width 14.5 % (11.0-16.0); White Blood Count 6.8 X10*3/uL (4.8-10.8)
[2024-04-22 11:30] LABS: Estimated Average Glucose 140 mg/dL; Hemoglobin A1C 168.3159 umol/L; Hemoglobin A1c % 6.5 % (<6.0); Total Hemoglobin (HGBA1C) 3534.0916 umol/L
[2024-04-22 12:42] LABS: Albumin Level 4.3 g/dL (3.5-5.0); Alkaline Phosphatase 129 U/L (39-117); Anion Gap 9 (12-20); Aspartate Amino Transferase 33 U/L (5-31); Bilirubin Total 0.6 mg/dL (0.0-1.0); Blood Urea Nitrogen 8 mg/dL (9-16); C Reactive Protein 1.25 mg/dL (< or = 0.50); Calcium 10.9 mg/dL (8.4-10.2); Carbon Dioxide 29 mmol/L (22-29); Chloride 107 mmol/L (96-108); Cholesterol 140 mg/dL (<200); Estimated Glomerular Filt Rate > 60; Glucose Random 124 mg/dL (60-115); HDL Cholesterol 38 mg/dL (>40); Iron 46 mcg/dL (30-160); LDL Cholesterol Calculated 79 mg/dL (<100); Percent Iron Saturation 13 % (15-50); Potassium 4.2 mmol/L (3.3-5.1); Sodium 141 mmol/L (135-145); Total Iron Binding Capacity 363 mcg/dL (228-428); Total Protein 8.2 g/dL (6.5-8.0); Triglycerides 118 mg/dL (<150); Unsaturated Iron Binding 317 ug/dL
[2024-04-22 12:57] LABS: Alanine Aminotransferase 36 U/L (0-31)
[2024-04-22 13:15] LABS: Ferritin 63 ng/mL (10-250); Insulin 27 uU/mL (2-29); TSH reflex Free T4 3.89 uIU/mL (0.32-4.0); Vitamin D 25-OH Total 36.6 ng/mL (>30)
[2024-04-22 13:32] LABS: Folate 9.6 ng/mL (> or = 4.0); Vitamin B12 355 pg/mL (200-900)
[2024-04-26 19:58] LABS: Zinc 66 mcg/dL (60-130)
[2024-04-27 16:18] LABS: Vitamin A 39 mcg/dL (38-98)
[2024-05-04 13:38] LABS: Vitamin B1 <6 nmol/L (8-30)
== END 2024-04-22 09:10 | disposition home or self-care (01) ==
LOC: HO.XRAY 09:09
PROVIDERS: PCP Internal Medicine; Visit Provider Surgery
DX: E66.01 Morbid (severe) obesity due to excess calories (principal); E03.9 Hypothyroidism, unspecified; E78.5 Hyperlipidemia, unspecified; K21.9 Gastro-esophageal reflux disease without esophagitis; G47.33 Obstructive sleep apnea (adult) (pediatric); Z13.1 Encounter for screening for diabetes mellitus; Z13.6 Encounter for screening for cardiovascular disorders; F33.9 Major depressive disorder, recurrent, unspecified; F41.0 Panic disorder [episodic paroxysmal anxiety]
CPT/HCPCS: 36415; 71046; 80053; 80061; 82306; 82607; 82728; 82746; 83036; 83525; 83540; 84425; 84443; 84590; 84630; 85025; 86140; 93005

== ENCOUNTER → 2024-04-22 09:16 | Outpatient (BNV) | payer OTHER, SELFPAY | PROVIDERS: PCP Internal Medicine; Visit Provider Internal Medicine Cardiovascular Disease | DX: I45.10 Unspecified right bundle-branch block (principal); R94.31 Abnormal electrocardiogram [ECG] [EKG] | CPT/HCPCS: 93010 ==

== ENCOUNTER → 2024-04-22 09:36 | Outpatient (BNV) | payer OTHER, SELFPAY | PROVIDERS: PCP Internal Medicine; Visit Provider Radiology Diagnostic Radiology | DX: J98.11 Atelectasis (principal) | CPT/HCPCS: 71046 ==

== ENCOUNTER → 2024-04-23 12:22 | Outpatient (BNVA) | payer MEDICARE, SELFPAY | PROVIDERS: PCP Internal Medicine; Visit Provider Counselor Mental Health ==

== ENCOUNTER → 2024-04-23 12:22 | Outpatient (AMB) | payer MEDICARE, OTHER, SELFPAY ==
--- NOTE | 2024-04-23 12:05 | MHC.WMTHER ---
Intake Intake Visit Reasons: VIDEO BH Intake Allergies latex Allergy (Severe, Verified 04/15/24 12:44) Clark skin cefadroxil [From Duricef] Allergy (Verified 04/15/24 12:44) Unknown Penicillins Allergy (Verified 04/15/24 12:44) Unknown [facility] Medical History Migraines Anxiety Depression Obstructive sleep apnea on CPAP Transient visual loss Cognitive and behavioral changes Loss of vision Paroxysmal hemicrania Chronic migraine with aura Constipation Insomnia DJD (degenerative joint disease) Hypothyroidism Stress incontinence GERD (gastroesophageal reflux disease) Hyperlipidemia Sleep apnea Asthma Hypertension Surgical History History of delivery History of rotator cuff surgery Morbid obesity History of bladder suspension procedure Hx of hernia repair History of mandibular surgery Family History Mother Alzheimer disease Pulmonary emphysema Diabetes Asthma Father Diabetes Hypertension Pacemaker Sister Diabetes Sister Diabetes Brother Hypertension Brother No problems noted. Daughter Asthma Social History Alcohol intake: never Patient Tobacco Use Status: Never used Tobacco Advance Directives Date on File: 12/15/19 Behavioral Health Assessment Weight Management Therapy Therapy Notes Details The patient is a 63-year-old female presenting for a behavioral health assessment as part of the surgical weight loss program. She reports having participated in the program previously, from January 2020 to 2020, but does not recall why she did not move forward with surgery at that time. Recently, her neurologist referred her to the program, noting that weight loss would benefit her overall health. The patient expresses uncertainty about proceeding with bariatric surgery but is open to continuing the process. She acknowledges her physical limitations, worsening mobility, and declining health, which have motivated her to explore this option further. Presenting Concerns Referral Source WMP provider. Reason for referral Completion of behavioral health assessment as part of process for weight-loss surgery. Precipitating Event Obesity Living Situation Current Living Situation Own At risk of losing current housing? No Satisfied with current living situation? Yes Comments PT lives with her 4 daughters and 5 dogs. They are 30, 11, 10 y/o twins. Social History Family history and relationship PT is . She has 1 bio daughter who is 30 y/o and 3 adopted daughters who are 11 and 10 y/o twins. Her parents are alive they are in [place], she has 4 siblings. Parental/Familial surgeon's assistant obligations 3 youngest daughters who are They are 11, 10 y/o twins. They are adopted. She started fostering them. Developmental history and status WNL in childhood. Ongoing Tx with neurologist due to memory issues. Waiting for final diagnosis. Social support Adult daughter, close family friends, Community support Providers. Gnosticist community. Jainism/Spirituality Raised as voodoo, attends cheondoism yazdanism. Cultural/Ethnic information Born and raised in [place]. Has been in the [place] since 2008, but in [place] 11 years ago. Legal Involvement and History Current or historical involvement with the legal system? None reported. Education Highest grade completed Masters degree. Preferred learning style Learn by doing and Visual Currently enrolled in educational program? No Interested in further educational program? No Educational Interests/Skills PT has 2 bachelors in pedagogy and theater, and a masters in arts. 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 Employment Employment Status Retired (since 2008 due to physical disability. ) Wants help to find employment? No Meaningful activities Reading, arts, crafts, knitting. Financial Situation Describe current financial situation Comfortable Financial assistance? Food [place] Service Service? No Mental Health and Addiction Treatment Current/Past substance abuse? No Comments Alcohol: None Cigarettes/Tobacco: None Cannabis/Edibles: None Current/Past addictive behavior concerns? No Psychiatric history PT attends outpatient psychiatric services every 3 months at [facility]. She is looking for a therapist, as her previous therapist doesn't accept her current health insurance. PT has been in MH treatment for about 7 years ago, started services during the girls adoption process and she continued as she felt benefited from it. She reports being diagnosed with panic disorder, anxiety, and depressive Sx when difficult events happen. T denies ever being hospitalized or in Crisis for MH. Denies ever experience safety concerns around self-harm or other-harm. Medical and Physical Health Summary Additional Medical History not covered in history None Sexual History concerns None reported. Physical exam in the last year? Yes Questionnaires PHQ-9 Over the last 2 weeks, how often have you been bothered by any of the following problems? 1. Little interest or pleasure in doing things: several days 2. Feeling down, depressed, or hopeless: not at all 3. Trouble falling or staying asleep, or sleeping too much: several days 4. Feeling tired or having little energy: more than half the days 5. Poor appetite or overeating: several days 6. Feeling bad about yourself - or that you are a failure or have let yourself or your family down: not at all 7. Trouble concentrating on things, such as reading the newspaper or watching television: several days 8. Moving or speaking so slowly that other people could have noticed. Or the opposite - being so fidgety or restless that you have been moving around a lot more than usual: more than half the days 9. Thoughts that you would be better off or of hurting yourself in some way: not at all Total score: 8 Depression Screening Interpretation: Positive (New one will be administered before we finish the eval.) Depression Screening Done: Yes Source: Developed by Drs. Mina Ragland, Deja Aaron, Kj Hoyt and colleagues, with an educational bella from [employer]. Binge Eating Scale Group 1 A. I don't feel self-conscious about my wt. or body size when I'm with others. B. I feel concerned about how I look to others, but it normally does not make me fell disappointed with myself C. I do get self-conscious about my appearance and wt. which makes me feel disappointed in myself. D. I feel very self-conscious about my wt. and frequently I feel intense shame and disgust for myself. I try to avoid social contacts because of my self-consciousness. Response Group 1: A Group 2 A. I don't have any difficulty eating slowly in the proper manner. B. Although I seem to gobble down foods, I don't end up feeling stuffed because of eating to much. C. At times, I tend to eat quickly and then, I feel uncomfortably full afterwards. D. I have the habit of bolting down my food, without really chewing it. When this happens I usually feel uncomfortably stuffed because I've eaten to much. Response Group 2: A Group 3 A. I feel capable to control my eating urges when I want to. B. I feel like I have failed to control my eating more than the average person. C. I feel utterly helpless when it comes to feeling in control of my eating urges. D. Because I feel so helpless about controlling my eating I have become very desperate about trying to get control. Response Group 3: A Group 4 A. I don't have the habit of eating when I'm bored. B. I sometimes eat when I'm bored, but often I'm able to get busy and get my mind off food. C. I have a regular habit of eating when I'm bored, but occasionally, I can use some other activity to get my mind off eating. D. I have a strong habit of eating when I'm bored. Nothing seems to help me breath the habit. Response Group 4: A Group 5 A. I'm usually physically hungry when I eat something. B. Occasionally, I eat something on impulse even though I really am not hungry. C. I have the regular habit of eating foods, that I might not really enjoy, to satisfy a hungry feeling even though physically, I don't need the food. D. Although I'm not physically hungry, I get a hungry feeling in my mouth that only seems to be satisfied when I eat a food, like sandwich, that fills my mouth. Sometimes, when I eat the food to satisfy my mouth hunger, I then spit the food out so I won't gain weight. Response Group 5: A Group 6 A. I don't feel any guilt or self-hate after I overeat. B. After I overeat, occasionally I feel guilt or self-hate. C. Almost all the time I experience strong guilt or self-hate after I overeat. Response Group 6: A Group 7 A. I don't lose total control of my eating when dieting even after periods when I overeat. B. Sometimes when I eat a forbidden food on a diet, I feel like I blew it and eat even more. C. Frequently, I have the habit of saying to myself, I've blown it now, why not go all the way, when I overeat on a diet. When that happens I eat more. D. I have a regular habit of starting a strict diets for myself but I break the diets by going on an eating binge. My life seems to be either a feast or famine. Response Group 7: A Group 8 A. I rarely eat so much food that I feel uncomfortably stuffed afterwards. B. Usually about once a month, I each such a quantity of food, I end up feeling very stuffed. C. I have regular periods during the month when I eat large amounts of food, either at mealtime or at snacks. D. I eat so much food that I regularly feel quite uncomfortable after eating and sometimes a bit nauseous. Response Group 8: A Group 9 A. My level of calorie intake does not go up very high or go down very low on a regular basis. B. Sometimes after I overeat, I will try to reduce my caloric intake to almost nothing to compensate for the excess calories I've eaten. C. I have a regular habit of overeating during the night. It seems that my routine is not to be hungry in the morning but overeat in the evening. D. In my adult years, I have had week-long periods where I practically starve myself. This follows periods when I overeat. It seems I live a life of either feast or famine. Response Group 9: A Group 10 A. I usually am able to stop eating when I want to. I know when enough is enough. B. Every so often, I experience a compulsion to eat which I can't seem to control. C. Frequently, I experience strong urges to eat which I seem unable to control, but at other times I can control my eating urges. D. I feel incapable of controlling urges to eat. I have a fear of not being able to stop eating voluntarily. Response Group 10: A Group 11 A. I don't have any problem stopping eating when I feel full. B. I usually can stop eating when I feel full but occasionally overeat leaving me feeling uncomfortably stuffed. C. I have a problem stopping eating once I start and usually I feel uncomfortably stuffed after I eat a meal. D. Because I have a problem not being able to stop eating when I want, I sometimes have to induce vomiting to relieve my stuffed feeling. Response Group 11: A Group 12 A. I seem to eat just as much when I'm with others, Family social gatherings as when I'm by myself. B. Sometimes, when I'm with other persons, I don't eat as much as I want to eat because I'm self-conscious about my eating. C. Frequently, I eat only a small amount of food when others are present, because I'm very embarrassed about my eating. D. I feel so ashamed about overeating that I pick times to overeat when I know no one will see me. I feel like a closet eater. Response Group 12: A Group 13 A. I eat three meals a day with only an occasional between meal snack. B. I eat 3 meals a day, but I also normally snack between meals. C. When I am snacking heavily, I get in the habit of skipping regular meals. D. There are regular periods when I seem to be continually eating, with no planned meals. Response Group 13: A Group 14 A. I don't think much about trying to control unwanted eating urges. B. At least some of the time, I feel my thoughts are pre-occupied with trying to control my eating urges. C. I feel that frequently I spend much time thinking about how much I ate or about trying not to eat anymore. D. It seems to me that most of my waking hours are pre-occupied by thoughts about eating or not eating. I feel like I'm constantly struggling not to eat. Response Group 14: A Group 15 A. I don't think about food a great deal. B. I have strong craving for food but they last only for brief periods of time. C. I have days when I can't seem to think about anything else but food. D. Most of my days seem to be pre-occupied with thoughts about food. I feel like I live to eat. Response Group 15: A Group 16 A. I usually know whether or not I'm physically hungry. I take the right portion of food to satisfy me. B. Occasionally, I feel uncertain about knowing whether or not I'm physically hungry. A these times it's hard to know how much food I should take to satisfy me. C. Even though I might know how many calories I should eat, I don't have any idea what is a normal amount of food for me. Response Group 16: C Binge Eating Score: 2 Score less than 17 Minimal Risk Score between 18-26 Moderate Risk Score between 27-46 High Risk Assessment & Plan Assessment & Plan (1) Major depressive disorder, recurrent, unspecified: Code(s): F33.9 - Major depressive disorder, recurrent, unspecified (2) Panic disorder: Code(s): F41.0 - Panic disorder [episodic paroxysmal anxiety] Plan The patient has not been cleared yet and will return in about 3 weeks to continue the assessment. A new PHQ-9 will be administered prior to completing the assessment. Next appointment: 05/13/2024 at (Telehealth). Telehealth Telehealth Telehealth Platform: [facility] Location of provider rendering services: other Location of patient: address on file Patient Identification confirmed using: Name, : Yes Telehealth method: video Patient verbally consented to treatment: Yes Patient verbally consented to billing insurance company: Yes Patient informed of any privacy concerns related to visit: Yes Minutes spent on Phone/Video with Pt.: 60 Coding Level of Care Code New Pt Tele Psy Diag Eval (40836) Patient Type New Diagnoses Major depressive disorder, recurrent, unspecified F33.9 Panic disorder F41.0 Time Spent (min) 60
--- OUTSIDE RECORDS SUMMARY | 2024-04-23 13:50 | XMS_ITS | Encounter Summary ---
Author Organization [facility] Address [address] [place] [address] Care Team Providers Care Manager Customer Service Name Role Phone Ora Ronquillo MD Primary Care Prov ider Jl Mendez MD Unavailable Jannette Boudreaux MD Unavailable [phone] Tenisha Mendieta PA-C Unavailable Julio MonkC Unavailable Luis Armando Eller MD Unavailable [phone] Jayesh Pineda MD Unavailable Kelsi Tejada MD Unavailable Unavailable Prtety Le MD Unavailable Vesta Michael PA-Pina Unavailable [phone] [facility] Unavailable [phone] Encounter Details Date Type Department Care Team Description 02/15/2023 Engineering Leader Report Medical Records [address] [place] [address] Kelsi Tejada MD Social History Tobacco Use Types Packs/Day Years Used Date Smoking Tobacco: Never Smokeless Tobacco: Never Alcohol Use Standard Drinks/Week Comments No 0 (1 standard drink = 0.6 oz pur e alcohol) Education Answer Date Recorded What is the highest level of school you have completed or the highest degree you have received? 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) 06/14/2020 Sex Assigned at Date Recorded [...] filedocumented in this encounter Care Teams Manager Customer Service Relationship Specialty Start Date End Date Ora Ronquillo MD [address] [place] [address] PCP - General Internal Medicine 10/11/21 Jl Mendez MD [address] [place] [address] Dr Montiel [address] [place] [address] Specialist Cardiovascular Disease 10/13/21 Jannette Boudreaux MD [address] [address] Surgeon Neurosurgery 04/07/22 Tenisha Mendieta PA-C [address] [address] Specialist Neurosurgery 04/07/22 Julio Monk PA-C 175 [facility] [address] [place] [address] Specialist Neurosurgery 04/07/22 Luis Armando Eller MD [address] [address] Specialist ORTHOPEDIC SURGERY 10/01/23 Jayesh Pineda MD [address] [place] [address] Specialist Endocrinology 10/01/23 Kelsi Tejada MD [address] [place] [address] Specialist Allergy & Immunology 10/01/23 Pretty Le MD 175 [facility] [address] [place] [id number] Specialist Pulmonology 10/01/23 Vesta Michael PA-C 300 [facility] [address] [place] [address] Specialist Vascular Surgery 10/01/23 [facility] [address] [place] [address] Specialist Optometry 10/01/23 documented as of this encounter
--- OUTSIDE RECORDS SUMMARY | 2024-04-23 13:50 | XMS_ITS | Encounter Summary ---
Author Organization [facility] Address [address] [place] [address] Care Team Providers Care Brush Cutter Name Role Phone Teressa Solis DO Primary Care Pro vider Unavailable Mina Pretty DO Primary Care Provider Shweta Cronin MD Primary Care Provider Ora Diaz MD Primary Care Prov ider Jl Mendez MD Unavailable Jannette Boudreaux MD Unavailable [phone] Tenisha Mendieta PA-C Unavailable [phone] Julio Monk PA-C Unavailable Luis Armando Eller MD Unavailable [phone] Jayesh Pineda MD Unavailable Kelsi Tejada MD Unavailable Unavailable Pretty Le MD Unavailable Vesta Michael PA-C Unavailable [facility] Unavailable [phone] Encounter Details Date Type Department Care Team Description 08/27/2015 Orders Only Adult Medicine [address] [address] Teressa Solis DO Social History [...] on filedocumented in this encounter Care Teams Brush Cutter Relationship Specialty Start Date End Date Teressa Solis DO PCP - General Internal Medicine 12/18/13 09/15/20 Mina Pretty DO PCP - General Internal Medicine 09/16/20 1 Shweta Tellez MD PCP - General Internal Medicine 01/12/21 10/10/21 Hiwot Couch, Ora Kelly MD [address] [place] [address] PCP - General Internal Medicine 10/11/21 Jl Mendez MD [address] [place] [address] Dr Mont[address] [place] [address] Specialist Cardiovascular Disease 10/13/21 Jannette Boudreaux MD [address] [address] Surgeon Neurosurgery 04/07/22 Tenisha Mendieta PA-C [address] [address] Specialist Neurosurgery 04/07/22 Julio Monk PA-C 175 [facility] [address] [place] [address] Specialist Neurosurgery 04/07/22 Luis Armnado Eller MD [address] [address] Specialist ORTHOPEDIC SURGERY 10/01/23 Jayesh Pineda MD [address] [place] [address] Specialist Endocrinology 10/01/23 Kelsi Tejada MD [address] [place] [address] Specialist Allergy & Immunology 10/01/23 Pretty Le MD 175 [facility] [address] [place] [address] Specialist Pulmonology 10/01/23 Vesta Michael PA-C 300 [facility] [address] [place] [address] Specialist Vascular Surgery 10/01/23 [facility] [address] [place] [address] Specialist Optometry 10/01/23 documented as of this encounter
--- OUTSIDE RECORDS SUMMARY | 2024-04-23 13:50 | XMS_ITS | Clinical Summary ---
Author Organization [facility] Address [address] [place] [address] Care Team Providers Care Hub Associate Name Role Phone Ora Sweeney MD [...] route 2 times daily. Active blood-glucose meter [facility] Use to test blood sugars once daily [...] 1 tablet by mouth daily. 1 Active fluticasone-um eclidinium-josefina anterol (Trelegy Ellipta) 100-62.5-25 mcg inhaler Inhale 1 Puff into the lungs daily for 363 days. 4 09/17/19 25 Active UNABLE TO FIND Inhale into the lungs. [employer]-supplies only Active FREESTYLE LANCETS [facility] Use to test blood sugars once daily [...] Tablet by mouth at bedtime. 4 Active onabotulinumto xinA (Botox) 200 unit injection Active senna (SENOKOT) 8.6 mg tablet Take 1 Tablet by mouth at bedtime. 4 Active sertraline (ZOLOFT) 100 mg tablet TAKE 1 TABLET BY MOUTH EVERY DAY IN THE MORNING 3 Active SUMAtriptan (IMITREX) 50 mg tablet TAKE 1 TO 2 TABLETS FOR MIGRAINE SYMPTOMS AND MAY REPEAT ONCE 2 HOURS LATER IF NEEDED 2 Active tezepelumab-ek ko (Tezspire) 210 mg/1.91 mL (110 mg/mL) injection [...] 2 (two) times a day. 4 Active cholecalcifero l (VITAMIN D-3) 125 mcg (5,000 unit) capsule Take 1 capsule (5,000 Units total) by mouth 1 (one) time each day. 4 Active triamcinolone (NASACORT) 55 mcg nasal inhaler INSTILL 1 TO 2 SPRAYS INTO EACH NOSTRIL ONCE DAILY. 4 Active Stool Softener-Laxat juany 8.6-50 mg per tablet 4 Active aspirin 325 mg tablet Take 1 tablet (325 mg total) by mouth 1 (one) time each day. Active ibuprofen (ADVIL,MOTRIN) 800 mg tablet 4 Active Nucala 100 mg/mL auto-injector 4 Active atorvastatin (LIPITOR) 20 mg tablet TAKE 1 TABLET BY MOUTH EVERY DAY 90 tablet 1 4 Active venlafaxine XR (EFFEXOR-XR) 37.5 mg 24 hr capsule 4 Active amLODIPine (NORVASC) 10 mg tablet TAKE 1 TABLET BY MOUTH EVERY DAY 90 tablet 1 4 Active levothyroxine (SYNTHROID, LEVOTHROID) 137 mcg tabletIndicati ons:Atrophy of thyroid (acquired) TAKE 1 TABLET BY MOUTH EVERY DAY 45 tablet 1 4 Active losartan (COZAAR) 100 mg tablet TAKE 1 TABLET BY MOUTH EVERY DAY 90 tablet 5 Active famotidine (PEPCID) 20 mg tablet Take 1 tablet (20 mg total) by mouth 2 (two) times a day if needed for heartburn. 90 tablet 1 4 04/22/19 25 Active Problems Problem Noted Date Diagnosed Date [...] Future Anxiety and depression 06/14/2020 Overview (12/16/2023): [facility] psychiatry Asthma, moderate persistent 05/10/2020 Overview (12/16/2023): [...] letter has been sent to [facility] Return to clinic in 1 year [...] 04/11/2024 9:45 AM EST Office Visit Endocrinology [address] [address] Jayesh Pineda MD Type 2 diabetes mellitus with other specified complication, without long-term current use of insulin (CMS/HCC) (Primary Dx); Hyperparathyroidism (CMS/HCC); Hypothyroidism, unspecified type 04/03/2024 9:45 AM EST Office Visit Orthopedic Surgery [facility] 250 175 [facility] 250 [place] [phone] Duke Dunn DPM Controlled type 2 diabetes with neuropathy (CMS/HCC) (Primary Dx); PVD (peripheral vascular disease) (CMS/HCC); Pain in both feet; Difficulty walking; Dermatophytosis, nail 03/27/2024 10:00 AM EST Treatment [facility] Occupational Therapy [address] [phone] Chema Martins, SARAH Rotator cuff tear arthropathy of left shoulder (Primary Dx) 03/26/2024 9:45 AM EST Office Visit Orthopedic [facility] 160 175 [facility] 160 [place] [phone] Luis Armando Eller MD S/P left rotator cuff repair (Primary Dx) 03/25/2024 9:00 AM EST Treatment [facility] Occup[facility] Therapy [address] [phone] Lisa Jones COTA 03/20/2024 11:00 AM EST Treatment [facility] [address] [address] Chema Martins, OT Rotator cuff tear arthropathy of left shoulder (Primary Dx) 03/18/2024 1:00 PM EST Treatment [facility] [address] [address] Lisa Jones, QUANG 03/13/2024 9:30 AM EST Treatment [facility] [address] [address] Morris Melo, DEL RIO/L Rotator cuff tear arthropathy of left shoulder (Primary Dx) 03/11/2024 9:30 AM EST Treatment [facility] [address] [address] Lisa Jones COTA Rotator cuff tear arthropathy of left shoulder (Primary Dx) 03/06/2024 9:30 AM EST Treatment [facility] [address] [address] Lisa Jones COTA Rotator cuff tear arthropathy of left shoulder (Primary Dx); S/P left rotator cuff repair 03/04/2024 8:45 AM EST Treatment [facility] [address] [address] Lisa Jones DEL RIO 02/28/2024 9:00 AM EST Treatment [facility] [address] [address] Chema Martins, OT Rotator cuff tear arthropathy of left shoulder (Primary Dx) 02/27/2024 9:30 AM EST Office Visit Orthopedic Surgery - [place] 160 175 [facility] 160 [place] [address] Genny Arreguin PA Post-operative state (Primary Dx); S/P left rotator cuff repair 02/20/2024 9:45 AM EST Treatment [facility] [address] [address] Morris Melo, DEL RIO/L Rotator cuff tear arthropathy of left shoulder (Primary Dx) 02/14/2024 9:30 AM EST Treatment [facility] [address] [address] Chema Martins, OT Rotator cuff tear arthropathy of left shoulder (Primary Dx) 02/12/2024 9:30 AM EST Treatment [facility] [address] [phone] Lisa Jones COTA 02/05/2024 9:30 AM EST Treatment [facility] Occupational Therapy [address] [phone] Chema Martins, OT S/P left rotator cuff repair (Primary Dx) 01/31/2024 10:30 AM EST Office Visit Orthopedic [facility] [address] [phone] Lorie Moore NP Primary osteoarthritis of left knee (Primary Dx) 01/31/2024 9:45 AM EST Office Visit Orthopedic [facility] [address] [phone] Duke Dunn DPM Controlled type 2 diabetes with neuropathy (CMS/HCC) (Primary Dx); Pain in both feet; PVD (peripheral vascular disease) (CMS/HCC); Difficulty walking; Dermatophytosis, nail 01/31/2024 8:45 AM EST Treatment [facility] Occup[facility] Therapy [address] [phone] Chema Martins, OT S/P left rotator cuff repair (Primary Dx); Rotator cuff tear arthropathy of left shoulder 01/24/2024 1:15 PM EST Office Visit [address] [address] Ora Sweeney MD Controlled type 2 diabetes mellitus without complication, without long-term current use of insulin (CMS/HCC) (Primary Dx); Primary hypertension; Mixed hyperlipidemia; Hypothyroidism, unspecified type 01/24/2024 10:00 AM EST Office Visit Orthopedic [facility] [address] [phone] Lorie Moore, DONN Primary osteoarthritis of left knee (Primary Dx) from Last 3 Months Immunizations [...] Date Site/Laterality Comments KNEE ARTHROSCOPY Right PROCEDURE: CT ARTHROSCOPY KNEE DIAGNOSTIC W/WO SYNOVIAL BX SPX WISDOM TOOTH EXTRACTION PROCEDURE: HISTORICAL WISDOM TEETH EXTRACTION TONSILLECTOMY PROCEDURE: HISTORICAL TONSILLECTOMY; COMMENT: and adenoids SECTION PROCEDURE: HISTORICAL DELIVERY OTHER SURGICAL HISTORY PROCEDURE: CT BIOPSY THYROID PERCUTANEOUS CORE NEEDLE COLONOSCOPY 12/10/2012 PROCEDURE: HISTORICAL COLONOSCOPY; COMMENT: normal; repeat in 3 yrs. sig. hyperplastic polyp OTHER SURGICAL HISTORY PROCEDURE: CYSTOSCOPY/SURG, URETHRA/BLAD NECK; COMMENT: sling procedure for stress incontinence OTHER SURGICAL HISTORY 08/25/2015 Right PROCEDURE: CT EXCISION NAIL MATRIX PERMANENT REMOVAL; COMMENT: right hallux Dr. Rangel COLONOSCOPY 01/31/2016 PROCEDURE: HISTORICAL COLONOSCOPY; COMMENT: 3 small polyps removed- dist.asc =tubular adenoma x 1; other nl tissue. COLONOSCOPY 09/29/2019 PROCEDURE: HISTORICAL COLONOSCOPY; COMMENT: 5 mm ascending colon polyp: Tubular adenoma. UPPER GASTROINTESTINAL ENDOSCOPY 09/29/2019 PROCEDURE: CT UPPER GI ENDOSCOPY PERFORMED; COMMENT: Visually normal on PPI treatment. ESOPHAGOGASTRODUODENOSCOPY 09/22/2021 PROCEDURE: CT EGD TRANSORAL BIOPSY SINGLE/MULTIPLE; COMMENT: EGD including biopsy normal OTHER SURGICAL HISTORY PROCEDURE: HISTORY OTHER; COMMENT: Maxillofacial surgery EXCISION BENIGN SKIN LESION TRUNK / ARM / LEG PROCEDURE: CT EXCISION TUMOR SOFT TISSUE BACK/FLANK SUBQ <3CM; [...] (BMI) of 40.0 to 44.9 in adult ([facility]) 07/15/2019 DX:Class 3 severe obesity du e to excess calories with serious comorbidity and body mass index (BMI) of 40.0 to 44.9 in adult ([facility]) Diabetes mellitus type 2, co ntrolled, without complications (CMS/HCC) 02/16/2021 DX:Diabetes mellitus t ype 2, controlled, without complications (HCC) Mild concentric left ventric ular hypertrophy 08/23/2021 DX:Mild concentric left vent ricular hypertrophy; COMMENT: Seen on echo study from 08/2021 Fatty liver DX:Fatty liver Anxiety state DX:Anxiety state Asthma DX:Asthma Depressive disorder DX:Depressiv e disorder Asthma, moderate persistent 05/10/2020 DX:A sthma, moderate persistent Pain and swelling of left up per extremity 11/21/2021 DX:Pain and swelling of left upper extremity Shingles DX:Shingles Diabetes mellitus (CMS/HCC) DX:D iabetes mellitus (HCC) HLD (hyperlipidemia) 11/21/2021 DX:HLD (hyp erlipidemia) VIRGIE on CPAP DX:VIRGIE on CPAP Depression DX:Depression Overactive bladder DX:Overactive bladder Obesity with alveolar hypove ntilation (CMS/HCC) DX:Obesity with alveolar hypoventilation (HCC) Morbid obesity with BMI of 4 0.0-44.9, adult (CMS/HCC) DX:Morbid obesity with BMI o f 40.0-44.9, adult (HCC) Asthma-chronic obstructive p ulmonary disease overlap syndrome (CMS/HCC) 01/30/2022 DX:Asthma-chronic o bstructive pulmonary disease overlap syndrome (HCC) Family History Medical History Relation Name Comments Breast cancer Aunt 1 maternal x 1 Ovarian cancer Aunt 2 maternal x 6 6 maternal au nts also with ov, uterine ca Glaucoma Brother x 2 Coronary artery disease Father [place] a ge 68, HTN, Diabetes, cataract, glaucoma [...] 9:45 AM EDT Office Visit Adult Medicine [address] [phone] Ora Sweeney MD [address] [place] [address] 06/04/2024 10:30 AM EDT Consult Bariatric Surgery [facility] [address] [phone] Lita Verde PA [address] [address] 06/04/2024 11:45 AM EDT Office Visit Orthopedic [facility] 160 175 [facility] 160 [place] [phone] Luis Armando Eller MD [address] [address] 06/05/2024 9:45 AM EDT Office Visit Orthopedic Surgery [facility] [address] [phone] Duke Dunn DPM [address] [address] 06/06/2024 2:30 PM EDT Office Visit Obstetrics and Gynecology [address] [phone] Stacie Martinez, [facility] [address] [place] [address] 06/30/2024 10:30 AM EDT Office Visit Orthopedic Surgery [facility] [address] [phone] Luis Armando Eller MD [address] [address] 07/02/2024 9:30 AM EDT Office Visit Orthopedic Surgery [facility] [address] [phone] Lorie Moore NP [address] [address] 07/09/2024 9:30 AM EDT Office Visit Endocrinology [address] [address] Jayesh Pineda MD [address] [place] [phone] 09/22/2024 8:45 AM EDT Office Visit Pulmonolgy - [place] [address] [phone] Pretty Le MD [address] [address] Health Maintenance Due Date Last Done Comments Diabetes: Annual Retina Eye Exam 1968 RSV Immunization Patients 60+ Years Old (1 - Risk 60-74 years 1-dose series) 2018 Zoster Vaccines (2 of 2) 02/23/2023 12/29/2022 COVID-19 Vaccine ( - 2023- season) 2023 12/29/2022, 05/18/2021, 09/21/2020, Additional history [...] WO CONTRAST Routine 02/29/2024 2:[address] ARTHROCENTESIS/ASPI RATION/INJECTION MAJOR JOINT/BURSA W/O U/S GUIDANCE Routine 01/31/2024 10:30 AM EST Primary osteoarthritis of left knee CT ARTHROCENTESIS/ASPI RATION/INJECTION MAJOR JOINT/BURSA W/O U/S GUIDANCE [...] MD ASCENCIO MRI PROCEDURES Final Result * CT ARTHROCENTESIS/ASPIRATION/INJECTION MAJOR JOINT/BURSA W/O U/S GUIDANCE (01/31/2024 [...] Verbal ??Pre-procedure timeout performed: yes ?? Result [facility] Lorie Moore SALES SUPPORT REP IN CLINIC/BEDSIDE ORDER ARELIS Final Result * CT ARTHROCENTESIS/ASPIRATION/INJECTION MAJOR JOINT/BURSA W/O U/S GUIDANCE (01/24/2024 [...] Verbal ??Pre-procedure timeout performed: yes ?? Result [facility] Lorie Moore SALES SUPPORT REP IN CLINIC/BEDSIDE ORDER ARELIS Final Result * (ABNORMAL) Hemoglobin A1c (11/26/2023) [facility] Hemoglobin A1C 7.4(A) <=6.5 % Blood Venous blood specimen / Unknown Result [facility] Historical Provider LAB BLOOD ORDERABLES Soni l Result * Annual BMP Blood Test (11/23/2023) [facility] Annual BMP Blood Test Abstracted Result [facility] Historical Provider HEALTH MAINTENANCE Final Result * Urine Albumin Creatinine Ratio (10/04/2023) [facility] Urine Albumin Creatinine Ratio Abstracted Result [facility] Historical Provider HEALTH MAINTENANCE Final Result * (ABNORMAL) Lipid panel (10/04/2023) Pathologist [facility] LDL/HDL Ratio 4 0 - 4 Triglycerides 173(A) 0 - 150 mg/dL Cholesterol 146 0 - 200 mg/dL HDL 39(A) >=40 mg/dL LDL Cholesterol 73 0 - 100 mg/dL Blood Venous blood specimen / Unknown Result [facility] LAB BLOOD ORDERABLES Soni l Result * Falls Risk Assessment (10/01/2023) [facility] Falls Risk Assessment Abstracted Result [facility] HEALTH MAINTENANCE Final Result * Depression Screening (10/01/2023) Pathologist [facility] Depression Screening Abstracted Result [facility] HEALTH MAINTENANCE Final Result * Diabetes Foot Exam (10/01/2023) [facility] Diabetes: Annual Foot Exam Abstracted Result [facility] HEALTH MAINTENANCE Final Result * SCREENING MAMMOGRAPHY BI 2-VIEW [...] * Cervical Cancer Screening: HPV (04/11/2021) Pathologist [facility] Cervical Cancer Screening: HPV No interpreta tion,abstr [...] the World Health Organization criteria, Ana Luisa Hailes should be classified as having normal bone density. The [facility] Department of Internal Medicine recommends using [...] beclassified as having normal bone density. The [facility] Department of Internal Medicine recommendsusing National [...] fracture risk by FRAX. Jayesh Pineda MD [facility] DXA PROCEDURES Final Result * Colonoscopy (09/29/2019) [facility] Colonoscopy No interpreta tion,abstr acted Anatomical Region Laterality Modality Other Historical Provider HEALTH MAINTENANCE Final Result * Hepatitis C Screening (09/22/2014) [facility] Hepatitis C Screening Abstracted Historical Provider HEALTH MAINTENANCE Final Result from Last 3 Months or Most Recently Relevant to Health Maintenance Insurance [employer] Care Teams Hub Associate Relationship Specialty Start Date End Date Ora Sweeney MD [address] [place] [address] PCP - General Internal Medicine 01/09/24
--- OUTSIDE RECORDS SUMMARY | 2024-04-23 13:50 | XMS_ITS | Encounter Summary ---
Author Organization [facility] Address [address] [place] [address] Care Team Providers Care Gang Knife Fish Chopper Name Role Phone Teressa Solis DO Primary Care Pro vider Unavailable Mina Pretty DO Primary Care Provider Shweta Cronin MD Primary Care Provider Ora Diaz MD Primary Care Prov ider Jl Mendez MD Unavailable Jannette Boudreaux MD Unavailable [phone] Tenisha Mendieta PA-C Unavailable [phone] Julio Monk PA-C Unavailable Luis Armando Eller MD Unavailable [phone] Jayesh Pineda MD Unavailable Kelsi Tejada MD Unavailable Unavailable Pretty Le MD Unavailable Vesta Michael PA-C Unavailable [phone] [facility] Unavailable Encounter Details Date Type Department Care Team Description 07/21/2016 Orthotic Assistant Report Medical Records [address] [place] [address] Jeff Ogden MD Social History Tobacco Use [...] on filedocumented in this encounter Care Teams Gang Knife Fish Chopper Relationship Specialty Start Date End Date Teressa Solis DO PCP - General Internal Medicine 12/18/13 09/15/20 Mina Pretty DO PCP - General Internal Medicine 09/16/20 Shweta Boucher MD PCP - General Internal Medicine 01/12/21 10/10/21 Ora Ronquillo MD [address] [place] [address] PCP - General Internal Medicine 10/11/21 Jl Mendez MD [address] [place] [address] Specialist Cardiovascular Disease 10/13/21 Jannette Boudreaux MD [address] [address] Surgeon Neurosurgery 04/07/22 Tenisha Mendieta PA-C [address] [address] Specialist Neurosurgery 04/07/22 Julio Monk PA-C [address] [address] Specialist Neurosurgery 04/07/22 Luis Armando Eller MD [address] [address] Specialist ORTHOPEDIC SURGERY 10/01/23 Jayesh Pineda MD [address] [place] [address] Specialist Endocrinology 10/01/23 Kelsi Tejada MD [address] [place] [address] Specialist Allergy & Immunology 10/01/23 Pretty Le MD 175 [facility] [address] [place] [address] Specialist Pulmonology 10/01/23 Vesta Michael PA-C 300 [facility] 210 [place] [address] Specialist Vascular Surgery 10/01/23 [facility] [address] [place] [address] Specialist Optometry 10/01/23 documented as of this encounter
--- OUTSIDE RECORDS SUMMARY | 2024-04-23 13:50 | XMS_ITS | Encounter Summary ---
Author Organization [facility] Address [address] [place] [address] Care Team Providers Care Decorator Consultant Name Role Phone Geno Cueva MD Primary Care Provider Unavailable Teressa Solis DO Primary Care Pro vider Unavailable Mina Pretty DO Primary Care Provider Ailyn Shweta Pretty MD Primary Care Provider Ora Diaz MD Primary Care Prov ider Jl Mendez MD Unavailable [phone] Jannette oBudreaux MD Unavailable [phone] Tenisha Mendieta PA-C Unavailable Julio Monk PA-C Unavailable [phone] Luis Armando Eller MD Unavailable [phone] Jayesh Pineda MD Unavailable Kelsi Tejada MD Unavailable Unavailable Pretty Le MD Unavailable Vesta Michael-Pina Unavailable [phone] [facility] Unavailable [phone] Encounter Details Date Type Department Care Team Description 06/30/2013 Dispatch Specialist Report Medical Records [address] [place] [address] Narinder Franco MD Social History Tobacco Use [...] on filedocumented in this encounter Care Teams Decorator Consultant Relationship Specialty Start Date End Date Geno Cueva MD PCP - General Internal Medicine 06/28/1212/17/13 Teressa Solis DO PCP - General Internal Medicine 12/18/13 09/15/20 Mina Pretty DO PCP - General Internal Medicine 09/16/20 1 Shweta Tellez MD PCP - General Internal Medicine 01/12/21 10/10/21 Hiwot Couch, Ora Kelly MD [address] [place] [address] PCP - General Internal Medicine 10/11/21 Jl Mendez MD [address] [place] [address] Dr Mont[address] [place] [address] Specialist Cardiovascular Disease 10/13/21 Jannette Boudreaux MD [address] [address] Surgeon Neurosurgery 04/07/22 Tenisha Mendieta PA-C [address] [address] Specialist Neurosurgery 04/07/22 Julio Monk PA-C [address] [address] Specialist Neurosurgery 04/07/22 Luis Armando Eller MD [address] [address] Specialist ORTHOPEDIC SURGERY 10/01/23 Jayesh Pineda MD [address] [place] [address] Specialist Endocrinology 10/01/23 Kelsi Tejada MD [address] [place] [address] Specialist Allergy & Immunology 10/01/23 Pretty Le MD 175 [facility] [address] [place] [address] Specialist Pulmonology 10/01/23 Vesta Michael PA-C 300 [facility] [address] [place] [address] Specialist Vascular Surgery 10/01/23 [facility] [address] [place] [address] Specialist Optometry 10/01/23 documented as of this encounter
--- OUTSIDE RECORDS SUMMARY | 2024-04-23 13:50 | XMS_ITS | Encounter Summary ---
Author Organization [facility] Address [address] [place] [address] Care Team Providers Care Senior Mechanical Estimator Name Role Phone Teressa Solis DO Primary Care Pro vider Unavailable Mina Pretty DO Primary Care Provider Shweta Cronin MD Primary Care Provider Ora Diaz MD Primary Care Prov ider Jl Mendez MD Unavailable Jannette Boudreaux MD Unavailable [phone] Tenisha Mendieta PA-C Unavailable Julio Monk PA-C Unavailable Luis Armando Eller MD Unavailable [phone] Jayesh Pineda MD Unavailable Kelsi Tejada MD Unavailable Unavailable Pretty Le MD Unavailable Vesta Michael PA-C Unavailable [phone] [facility] Unavailable Reason for Visit * Reason Onset Date Comments Faxed Order 01/23/2017 Encounter Details Date Type Department Care Team Description 01/23/2017 Telephone Adult [address] [address] Teressa Solis DO Faxed Order [...] PT, please sign and fax back to [phone]. documented in this encounter Plan of Treatment Not on file documented as of this encounter Visit Diagnoses Not on filedocumented in this encounter Care Teams Senior Mechanical Estimator Relationship Specialty Start Date End Date Teressa Solis, PCP - General Internal Medicine 12/18/13 09/15/20 Mina Pretty DO PCP - General Internal Medicine 09/16/20 Shweta Boucher MD PCP - General Internal Medicine 01/12/21 10/10/21 Ora Ronquillo MD [address] [place] [address] PCP - General Internal Medicine 10/11/21 Jl Mendez MD [address] [place] [address] Dr Montiel [address] [place] [address] Specialist Cardiovascular Disease 10/13/21 Jannette Boudreaux MD [address] [address] Surgeon Neurosurgery 04/07/22 Tenisha Mendieta PA-C [address] [address] Specialist Neurosurgery 04/07/22 Julio Monk PA-C [address] [address] Specialist Neurosurgery 04/07/22 Luis Armando Eller MD 175 [facility] [address] [place] [address] Specialist ORTHOPEDIC SURGERY 10/01/23 Jayesh Pineda MD 305 [place] [address] Specialist Endocrinology 10/01/23 Kelsi Tejada MD 305 [place] [address] Specialist Allergy & Immunology 10/01/23 Pretty Le MD [address] [facility] [address] [place] [phone] Specialist Pulmonology 10/01/23 Vesta Michael PA-C 300 [facility] [address] [place] [phone] Specialist Vascular Surgery 10/01/23 [facility] 46 [place] [address] Specialist Optometry 10/01/23 documented as of this encounter
--- OUTSIDE RECORDS SUMMARY | 2024-04-23 13:50 | XMS_ITS | Encounter Summary ---
Author Organization [facility] Address [address] [place] [address] Care Team Providers Care Import Clerk Name Role Phone Geno Cueva MD Primary Care Provider Unavailable Teressa Solis DO Primary Care Pro vider Unavailable Mina Pretty DO Primary Care Provider Ailyn Shweta Pretty MD Primary Care Provider Ora Diaz MD Primary Care Prov ider Jl Mendez MD Unavailable Jannette Boudreaux MD Unavailable [phone] Tenisha Mendieta PA-C Unavailable Julio Monk PA-C Unavailable [phone] Luis Armando Eller MD Unavailable [phone] Jayesh Pineda MD Unavailable Kelsi Tejada MD Unavailable Unavailable Pretty Le MD Unavailable Vesta Michael-Pina Unavailable [phone] [facility] Unavailable [phone] Encounter Details Date Type Department Care Team Description 02/24/2013 Hospital Medical Records [address] [place] [address] Zoltan Chu Social History Tobacco Use Types Packs/Day Years Used Date Smoking Tobacco: Never Smokeless Tobacco: Never Alcohol Use Standard Drinks/Week Comments No 0 (1 standard drink = 0.6 oz pur e alcohol) Education Answer Date Recorded What is the highest level of school you have completed or the highest degree you have received? 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, SECURITY PROFESSIONAL, CHANDRAKANT) 06/14/2020 Sex Assigned at Date Recorded Female 08/03/2020 10:16 PM EDT Job Start Date Occupation Industry Not on file Not on file Not on file documented as of this encounter Plan of Treatment Not on file documented as of this encounter Visit Diagnoses Not on filedocumented in this encounter Care Teams Import Clerk Relationship Specialty Start Date End Date Geno Cueva MD PCP - General Internal Medicine 06/28/1212/17/13 Teressa Solis, DO PCP - General Internal Medicine 12/18/13 09/15/20 Mina Pretty, PCP - General Internal Medicine 09/16/20 1 Shweta Tellez MD PCP - General Internal Medicine 01/12/21 10/10/21 Ora Ronquillo MD [address] [place] [address] PCP - General Internal Medicine 10/11/21 Jl Mendez MD [address] [place] [address] Dr Montiel [address] [place] [address] Specialist Cardiovascular Disease 10/13/21 Jannette Boudreaux MD [address] [address] Surgeon Neurosurgery 04/07/22 Tenisha Mendieta PA-C [address] [address] Specialist Neurosurgery 04/07/22 Julio Monk PA-C 175 [facility] [address] [place] [address] Specialist Neurosurgery 04/07/22 Luis Armando Eller MD [address] [address] Specialist ORTHOPEDIC SURGERY 10/01/23 Jayesh Pineda MD 305 [place] [address] Specialist Endocrinology 10/01/23 Kelsi Tejada MD 305 [place] [address] Specialist Allergy & Immunology 10/01/23 Pretty Le MD 175 [facility] [address] [place] [address] Specialist Pulmonology 10/01/23 Vesta Michael PA-C 300 [facility] 210 [place] [address] Specialist Vascular Surgery 10/01/23 [facility] 46 [place] [address] Specialist Optometry 10/01/23 documented as of this encounter
--- OUTSIDE RECORDS SUMMARY | 2024-04-23 13:50 | XMS_ITS | Encounter Summary ---
Author Organization [facility] Address [address] [place] [address] Care Team Providers Care Physical Therapy Supervisor Name Role Phone Ora Sweeney MD Primary Care Prov ider Encounter Details Date Type Department Care Team (Late st Contact Info) Description 12/12/2023 4:42 PM EDT Hospital Encounter TH HISTORIC ENCOUNTERS EASTERN CONVERSION ONLY Luis Armando Eller MD [address] 160 [place] [address] Social History Tobacco Use Types Packs/Day Years [...] for your loved ones. For example, childhood development teacher or elderly care for an older [...] 9:45 AM EDT Office Visit Adult Medicine [address] [address] Ora Sweeney MD [address] [place] [address] 06/04/2024 10:30 AM EDT Consult Bariatric Surgery - [place] 175 [facility] 120 [place] [phone] Lita Verde PA 271 [facility] 120 [place] [address] 06/04/2024 11:45 AM EDT Office Visit Orthopedic Surgery - [place] [address] [address] Luis Armando Eller MD [address] [address] 06/05/2024 9:45 AM EDT Office Visit Orthopedic Surgery - [place] [address] [address] Duke Dunn, DPM [address] [address] 06/06/2024 2:30 PM EDT Office Visit Obstetrics and Gynecology - [place] [address] [place] [address] Stacie Martinez, [facility] 444 [place] [address] 06/30/2024 10:30 AM EDT Office Visit Orthopedic Surgery [facility] [address] [phone] Luis Armando Eller MD [address] [address] 07/02/2024 9:30 AM EDT Office Visit Orthopedic Surgery - [place] [address] [phone] Lorie Moore NP [address] [address] 07/09/2024 9:30 AM EDT Office Visit Endocrinology - [address] [phone] Jayesh Pineda MD 5 [place] [phone] 09/22/2024 8:45 AM EDT Office Visit Pulmonolgy - [place] 175 [facility] [address] [place] [phone] Pretty Le MD [address] [address] documented as of this encounter Visit Diagnoses Not on filedocumented in this encounter Care Teams Physical Therapy Supervisor Relationship Specialty Start Date End Date Ora Sweeney MD 4 [place] [address] PCP - General 10/11/21 01/08/24 documented as of this encounter
--- OUTSIDE RECORDS SUMMARY | 2024-04-23 13:50 | XMS_ITS | Encounter Summary ---
Author Organization [facility] Address [address] [place] [address] Care Team Providers Care Respiratory Assistant Name Role Phone Teressa Solis DO Primary Care Pro vider Unavailable Mina Pretty DO Primary Care Provider Shweta Cronin MD Primary Care Provider Ora Diaz MD Primary Care Prov ider Jl Mendez MD Unavailable [phone] Jannette Boudreaux MD Unavailable [phone] Tenisha Mendieta PA-C Unavailable Julio Monk PA-C Unavailable [phone] Luis Armando Eller MD Unavailable [phone] Jayesh Pineda MD Unavailable Kelsi Tejada MD Unavailable Unavailable Pretty Le MD Unavailable Vesta Michael PA-C Unavailable [facility] Unavailable Encounter Details Date Type Department Care Team Description 12/28/2016 Personnel Supervisor Report Medical Records 4 [place] [address] Social History Tobacco Use Types Packs/Day Years [...] on filedocumented in this encounter Care Teams Respiratory Assistant Relationship Specialty Start Date End Date Teressa Solis DO PCP - General Internal Medicine 12/18/13 09/15/20 Mina Pretty DO PCP - General Internal Medicine 09/16/20 Shweta Boucher MD PCP - General Internal Medicine 01/12/21 10/10/21 Ora Ronquillo MD [address] [place] [address] PCP - General Internal Medicine 10/11/21 Jl Mendez MD [address] [place] [address] Dr Montiel [address] [place] [address] Specialist Cardiovascular Disease 10/13/21 Jannette Boudreaux MD [address] [address] Surgeon Neurosurgery 04/07/22 Tenisha Mendieta PA-C [address] [address] Specialist Neurosurgery 04/07/22 Julio Monk PA-C [address] [address] Specialist Neurosurgery 04/07/22 Luis Armando Eller MD [address] [address] Specialist ORTHOPEDIC SURGERY 10/01/23 Jayesh Pineda MD 305 [place] [address] Specialist Endocrinology 10/01/23 Kelsi Tejada MD 305 [place] [address] Specialist Allergy & Immunology 10/01/23 Pretty Le MD 175 [facility] [address] [place] [address] Specialist Pulmonology 10/01/23 Vesta Michael PA-C 300 [facility] 210 [place] [address] Specialist Vascular Surgery 10/01/23 [facility] 46 [place] [address] Specialist Optometry 10/01/23 documented as of this encounter
--- OUTSIDE RECORDS SUMMARY | 2024-04-23 13:50 | XMS_ITS | Encounter Summary ---
Author Organization [facility] Address [address] [place] [address] Care Team Providers Care Acid Operator Name Role Phone Geno Cueva MD Primary Care Provider Unavailable Teressa Solis DO Primary Care Pro vider Unavailable Mina Pretty DO Primary Care Provider Ailyn Shweta Pretty MD Primary Care Provider Ora Diaz MD Primary Care Prov ider Jl Mendez MD Unavailable Jannette Boudreaux MD Unavailable [phone] Tenisha Mendieta PA-C Unavailable [phone] Julio Monk PA-C Unavailable Luis Armando Eller MD Unavailable [phone] Jayesh Pineda MD Unavailable Kelsi Tejada MD Unavailable Unavailable Pretty Le MD Unavailable Vesta Michael-Pina Unavailable [phone] [facility] Unavailable [phone] Encounter Details Date Type Department Care Team Description 03/24/2013 Technical Planner Report Medical Records [address] [place] [address] Narinder Franco MD Social History Tobacco Use [...] on filedocumented in this encounter Care Teams Acid Operator Relationship Specialty Start Date End Date Geno Cueva MD PCP - General Internal Medicine 06/28/1212/17/13 Teressa Solis DO PCP - General Internal Medicine 12/18/13 09/15/20 Mina Pretty DO PCP - General Internal Medicine 09/16/20 1 Shweta Tellez MD PCP - General Internal Medicine 01/12/21 10/10/21 Hiwot Couch, Ora Kelly MD [address] [place] [address] PCP - General Internal Medicine 10/11/21 Jl Mendez MD [address] [place] [address] Dr Montiel [address] [place] [address] Specialist Cardiovascular Disease 10/13/21 Jannette Boudreaux MD [address] [address] Surgeon Neurosurgery 04/07/22 Tenisha Mendieta PA-C [address] [address] Specialist Neurosurgery 04/07/22 Julio Monk PA-C [address] [address] Specialist Neurosurgery 04/07/22 Luis Armando Eller MD [address] [address] Specialist ORTHOPEDIC SURGERY 10/01/23 Jayesh Pineda MD [address] [place] [address] Specialist Endocrinology 10/01/23 Kelsi Tejada MD 305 [place] [address] Specialist Allergy & Immunology 10/01/23 Pretty Le MD 175 [facility] [address] [place] [address] Specialist Pulmonology 10/01/23 Vesta Michael PA-C 300 [facility] [address] [place] [address] Specialist Vascular Surgery 10/01/23 [facility] 46 [place] [address] Specialist Optometry 10/01/23 documented as of this encounter
--- OUTSIDE RECORDS SUMMARY | 2024-04-23 13:50 | XMS_ITS | Encounter Summary ---
Author Organization [facility] Address [address] [place] [address] Care Team Providers Care Digital Marketer Name Role Phone Teressa Solis DO Primary Care Pro vider Unavailable Mina Pretty DO Primary Care Provider Shweta Cronin MD Primary Care Provider Ora Diaz MD Primary Care Prov ider Jl Mendez MD Unavailable Jannette Boudreaux MD Unavailable [phone] Tenisha Mendieta PA-C Unavailable Julio Monk PA-C Unavailable Luis Armando Eller MD Unavailable [phone] Jayesh Pineda MD Unavailable Kelsi Tejada MD Unavailable Unavailable Pretty Le MD Unavailable Vesta Michael PA-C Unavailable [phone] [facility] Unavailable [phone] Encounter Details Date Type Department Care Team Description [facility]/29[facility] [address] [address] Teressa Solis DO Social History [...] UNITS Cap [Teressa Gallegos DO] Preferred pharmacy: [facility] [address] [place] [address] - [address] [place] [address] [address] [facility] [address] Comment: Pharmacy states I don't have more refills. This is for my Vitamin D deficiency. documented in this encounter Plan of Treatment Not on file documented as of this encounter Visit Diagnoses Not on filedocumented in this encounter Care Teams Digital Marketer Relationship Specialty Start Date End Date Teressa Solis DO PCP - General Internal Medicine 12/18/13 09/15/20 Mina Pretty DO PCP - General Internal Medicine 09/16/20 1 Shweta Tellez MD PCP - General Internal Medicine 01/12/21 10/10/21 Ora Ronquillo MD [address] [place] [address] PCP - General Internal Medicine 10/11/21 Jl Mendez MD [address] [place] [address] Dr Montiel 410 [place] [address] Specialist Cardiovascular Disease 10/13/21 Jannette Boudreaux MD [address] [address] Surgeon Neurosurgery 04/07/22 Tenisha Mendieta PA-C 175 [facility] 300 [place] [address] Specialist Neurosurgery 04/07/22 Julio Monk PA-C 175 [facility] 300 [place] [address] Specialist Neurosurgery 04/07/22 Luis Armando Eller MD [address] [address] Specialist ORTHOPEDIC SURGERY 10/01/23 Jayesh Pineda MD 305 [place] [address] Specialist Endocrinology 10/01/23 Kelsi Tejada MD 305 [place] [address] Specialist Allergy & Immunology 10/01/23 Pretty Le MD 175 [facility] 200 [place] [address] Specialist Pulmonology 10/01/23 Vesta Michael PA-C 300 [facility] 210 [place] [address] Specialist Vascular Surgery 10/01/23 [facility] 46 [place], [place] [address] Specialist Optometry 10/01/23 documented as of this encounter
--- OUTSIDE RECORDS SUMMARY | 2024-04-23 13:50 | XMS_ITS | Encounter Summary ---
Author Organization [facility] Address [address] [place] [address] Care Team Providers Care Special Needs Babysitter Name Role Phone Teressa Solis DO Primary Care Pro vider Unavailable Mina Pretty DO Primary Care Provider Shweta Cronin MD Primary Care Provider Ora Diaz MD Primary Care Prov ider Jl Mendez MD Unavailable Jannette Boudreaux MD Unavailable [phone] Tenisha Mendieta PA-C Unavailable Julio Monk PA-C Unavailable [phone] Luis Armando Eller MD Unavailable [phone] Jayesh Pineda MD Unavailable Kelsi Tejada MD Unavailable Unavailable Pretty Le MD Unavailable Vesta Michael PA-C Unavailable [phone] [facility] Unavailable Encounter Details Date Type Department Care Team Description 01/11/2016 Police Records Clerk Report Medical Records 4 [place] [address] Jeff Ogden MD Social History Tobacco Use [...] on filedocumented in this encounter Care Teams Special Needs Babysitter Relationship Specialty Start Date End Date Teressa Solis DO PCP - General Internal Medicine 12/18/13 09/15/20 Mina Pretty DO PCP - General Internal Medicine 09/16/20 Shweta Boucher MD PCP - General Internal Medicine 01/12/21 10/10/21 Ora Ronquillo MD [address] [place] [address] PCP - General Internal Medicine 10/11/21 Jl Mendez MD [address] [place] [address] Specialist Cardiovascular Disease 10/13/21 Jannette Boudreaux MD [address] [address] Surgeon Neurosurgery 04/07/22 Tenisha Mendieta PA-C [address] [address] Specialist Neurosurgery 04/07/22 Julio Monk PA-C [address] [address] Specialist Neurosurgery 04/07/22 Luis Armando Eller MD [address] [address] Specialist ORTHOPEDIC SURGERY 10/01/23 Jayesh Pineda MD 305 [place] [address] Specialist Endocrinology 10/01/23 Kelsi Tejada MD 305 [place] [address] Specialist Allergy & Immunology 10/01/23 Pretty Le MD 175 [facility] [address] [place] [address] Specialist Pulmonology 10/01/23 Vesta Michael PA-C 300 [facility] 210 [place] [address] Specialist Vascular Surgery 10/01/23 [facility] 46 [place] [address] Specialist Optometry 10/01/23 documented as of this encounter
--- OUTSIDE RECORDS SUMMARY | 2024-04-23 13:50 | XMS_ITS | Encounter Summary ---
Author Organization [facility] Address [address] [place] [address] Care Team Providers Care Adult Neurologist Name Role Phone Teressa Solis DO Primary Care Pro vider Unavailable Mina Pretty DO Primary Care Provider Shweta Cronin MD Primary Care Provider rOa Diaz MD Primary Care Prov ider Jl Mendez MD Unavailable Jannette Boudreaux MD Unavailable [phone] Tenisha Mendieta PA-C Unavailable [phone] Julio Monk PA-C Unavailable Luis Armando Eller MD Unavailable [phone] Jayesh Pineda MD Unavailable Kelsi Tejada MD Unavailable Unavailable Pretty Le MD Unavailable Vesta Michael PA-C Unavailable [facility] Unavailable [phone] Encounter Details Date Type Department Care Team Description 07/31/2016 SCAN Medical Records 4 [place] [address] Abstract, Provider Social History Tobacco Use Types [...] on filedocumented in this encounter Care Teams Adult Neurologist Relationship Specialty Start Date End Date Teressa Solis DO PCP - General Internal Medicine 12/18/13 09/15/20 Mina Pretty DO PCP - General Internal Medicine 09/16/20 Shweta Boucher MD PCP - General Internal Medicine 01/12/21 10/10/21 Ora Ronquillo MD [address] [place] [address] PCP - General Internal Medicine 10/11/21 Jl Mendez MD [address] [place] [address] Dr Montiel [address] [place] [address] Specialist Cardiovascular Disease 10/13/21 Jannette Boudreaux MD [address] [address] Surgeon Neurosurgery 04/07/22 Tenisha Mendieta PA-C [address] [address] Specialist Neurosurgery 04/07/22 Julio Monk PA-C [address] [address] Specialist Neurosurgery 04/07/22 Luis Armando Eller MD [address] [address] Specialist ORTHOPEDIC SURGERY 10/01/23 Jayesh Pineda MD 305 [place] [address] Specialist Endocrinology 10/01/23 Kelsi Tejada MD 305 [place] [address] Specialist Allergy & Immunology 10/01/23 Pretty Le MD 175 [facility] [address] [place] [address] Specialist Pulmonology 10/01/23 Vesta Michael PA-C 300 [facility] 210 [place] [address] Specialist Vascular Surgery 10/01/23 [facility] 46 [place] [address] Specialist Optometry 10/01/23 documented as of this encounter
--- OUTSIDE RECORDS SUMMARY | 2024-04-23 13:50 | XMS_ITS | Encounter Summary ---
Author Organization [facility] Address [address] [place] [address] Care Team Providers Care Housemaid Name Role Phone Ora Ronquillo MD Primary Care Prov ider Jl Mendez MD Unavailable Jannette Boudreaux MD Unavailable [phone] Tenisha Mendieta PA-C Unavailable Julio Monk PA-C Unavailable Luis Armando Eller MD Unavailable [phone] Jayesh Pineda MD Unavailable Kelsi Tejada MD Unavailable Unavailable Pretty Le MD Unavailable Vesta Michael PA-C Unavailable [facility] Unavailable [phone] Reason for Visit * Reason Onset Date Comments Prior Authorization 03/22/2023 Encounter Details Date Type Department Care Team Description 03/22/2023 Telephone Endocrinology - [address] [address] Jayesh Pineda MD [address] [place] [address] [id number] Prior Authorization Social History Tobacco Use Types Packs/Day Years Used Date Smoking Tobacco: Never Smokeless Tobacco: Never Alcohol Use Standard Drinks/Week Comments No 0 (1 standard drink = 0.6 oz pur e alcohol) Education Answer Date Recorded What is the highest level of school you have completed or the highest degree you have received? 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 - 03/22/2023 3:36 PM EST Dup Pearl Rose Prior Auth Dep Ext [id number] * Telephone Encounter - Mark Pang - 03/22/2023 8:32 AM EST Prior Authorization for Medication-do not complete and send this encounter unless you have the fax from the pharmacy. Is this a Cover My Meds request: Yes -- [place] Code [id number] Name of Medication Ozempic Dose of Medication 0.25 or 0.5mg What is the RX # from the faxed refill? N/a How does patient take this med? injection Pharmacy fax #: documented in this encounter Plan of Treatment Not on file documented as of this encounter Visit Diagnoses Not on filedocumented in this encounter Care Teams Housemaid Relationship Specialty Start Date End Date Ora Ronquillo MD [address] [place] [address] PCP - General Internal Medicine 10/11/21 Jl Mendez MD [address] [place] [address] Dr Montiel [address] [place] [address] Specialist Cardiovascular Disease 10/13/21 Jannette Boudreaux MD 175 [facility] [address] [place] [address] Surgeon Neurosurgery 04/07/22 Tenisha Mendieta PA-C 175 [facility] 300 [place] [address] Specialist Neurosurgery 04/07/22 Julio Monk PA-C 175 [facility] 300 [place] [address] Specialist Neurosurgery 04/07/22 Luis Armando Eller MD 175 [facility] 250 [place] [address] Specialist ORTHOPEDIC SURGERY 10/01/23 Jayesh Pineda MD 305 [place] [address] Specialist Endocrinology 10/01/23 Kelsi Tejada MD 305 [place] [address] Specialist Allergy & Immunology 10/01/23 Pretty Le MD 175 [facility] 200 [place] [address] Specialist Pulmonology 10/01/23 Vesta Michael PA-C 300 [facility] [address] [place] [address] Specialist Vascular Surgery 10/01/23 [facility] 46 [place] [address] Specialist Optometry 10/01/23 documented as of this encounter
--- OUTSIDE RECORDS SUMMARY | 2024-04-23 13:50 | XMS_ITS | Encounter Summary ---
Author Organization [facility] Address [address] [place] [address] Care Team Providers Care Proof Operator Name Role Phone Geno Cueva MD Primary Care Provider Unavailable Teressa Solis DO Primary Care Pro vider Unavailable Mina Pretty DO Primary Care Provider Ailyn Shweta Pretty MD Primary Care Provider Ora Diaz MD Primary Care Prov ider Jl Mendez MD Unavailable Jannette Boudreaux MD Unavailable [phone] Tenisha Mendieta PA-C Unavailable Juilo Mokn PA-C Unavailable Luis Armando Eller MD Unavailable [phone] Jayesh Pineda MD Unavailable Kelsi Tejada MD Unavailable Unavailable Pretty Le MD Unavailable Vesta Michael-Pina Unavailable [phone] [facility] Unavailable [phone] Encounter Details Date Type Department Care Team Description 07/12/2012 Exchange Engineer Report Medical Records [address] [place] [address] Arben York Social History Tobacco Use Types Packs/Day Years [...] on filedocumented in this encounter Care Teams Proof Operator Relationship Specialty Start Date End Date Geno Cueva MD PCP - General Internal Medicine 06/28/1212/17/13 Teressa Solis DO PCP - General Internal Medicine 12/18/13 09/15/20 Mina Pretty DO PCP - General Internal Medicine 09/16/20 1 Shweta Tellez MD PCP - General Internal Medicine 01/12/21 10/10/21 Ora Ronquillo MD [address] [place] [address] PCP - General Internal Medicine 10/11/21 Jl Mendez MD [address] [place] [address] Dr Montiel [address] [place] [address] Specialist Cardiovascular Disease 10/13/21 Jannette Boudreaux MD [address] [address] Surgeon Neurosurgery 04/07/22 Tenisha Mendieta PA-C [address] [address] Specialist Neurosurgery 04/07/22 Julio Monk PA-C [address] [address] Specialist Neurosurgery 04/07/22 Luis Armando Eller MD [address] [address] Specialist ORTHOPEDIC SURGERY 10/01/23 Jayesh Pineda MD [address] [place] [address] Specialist Endocrinology 10/01/23 Kelsi Tejada MD 305 [place] [address] Specialist Allergy & Immunology 10/01/23 Pretty Le MD 175 [facility] [address] [place] [address] Specialist Pulmonology 10/01/23 Vesta Michael PA-C 300 [facility] 210 [place] [address] Specialist Vascular Surgery 10/01/23 [facility] 46 [place] [address] Specialist Optometry 10/01/23 documented as of this encounter
--- OUTSIDE RECORDS SUMMARY | 2024-04-23 13:50 | XMS_ITS | Encounter Summary ---
Author Organization Formerly [facility] Address [address] [place] [address] Care Team Providers Care Biology Faculty Member Name Role Phone Ora Ronquillo MD Primary Care Prov ider Jl Mendez MD Unavailable [phone] Jannette Boudreaux MD Unavailable [phone] Tenisha Mendieta PA-C Unavailable [phone] Julio Monk PA-C Unavailable [phone] Luis Armando Eller MD Unavailable [phone] Jayesh Pineda MD Unavailable Kelsi Tejada MD Unavailable Unavailable Pretty Le MD Unavailable Vesta Michael PA-C Unavailable [phone] [facility] Unavailable Reason for Visit * Reason Onset Date Comments Wound Infection 01/18/2023 Pt feels she vini ht have a wound infection in the area of her Minor surgery Encounter Details Date Type Department Care Team Description 01/18/2023 Telephone General Surgery - [place] 175 [facility] [address] [place] [address] Unruly Ferrera MD [address] [address] Wound Infection (Pt feels she might have a wound infection in the area of her Minor surgery) Social History Tobacco Use Types Packs/Day Years Used Date Smoking Tobacco: Never Smokeless Tobacco: Never Alcohol Use Standard Drinks/Week Comments No 0 (1 standard drink = 0.6 oz pur e alcohol) Education Answer Date Recorded What is the highest level of school you have completed or the highest degree you have received? 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 No / Unsure 01/18/2023 8:02 AM EST documented as of this encounter Miscellaneous Notes * Telephone Encounter - Erika Grady - 01/18/2023 3:34 PM EST Called patient and message was given. * Telephone Encounter - Genny Reyes - 01/18/2023 2:12 PM EST Patient called and she feels the area of her minor surgery is infected. She did send me pictures and I did forward them to Dr Ferrera to look at. I did send a Halo message to Dr Ferrera letting him be aware that I sent him the pictures since he is not in the office today. documented in this encounter Plan of Treatment Not on file documented as of this encounter Visit Diagnoses Not on filedocumented in this encounter Care Teams Biology Faculty Member Relationship Specialty Start Date End Date Ora Ronquillo MD [address] [place] [address] PCP - General Internal Medicine 10/11/21 Jl Mendez MD [address] [place] [address] [place] [address] Specialist Cardiovascular Disease 10/13/21 Jannette Boudreaux MD 175 [facility] [address] [place] [address] Surgeon Neurosurgery 04/07/22 Tenisha Mendieta PA-C 175 [facility] [address] [place] [address] Specialist Neurosurgery 04/07/22 Julio Monk PA-C 175 [facility] [address] [place] [address] Specialist Neurosurgery 04/07/22 Luis Armando Eller MD [address] [address] Specialist ORTHOPEDIC SURGERY 10/01/23 Jayesh Pineda MD [address] [place] [address] Specialist Endocrinology 10/01/23 Kelsi Tejada MD [address] [place] [address] Specialist Allergy & Immunology 10/01/23 Pretty Le MD 175 [facility] [address] [place] [phone] Specialist Pulmonology 10/01/23 Vesta Michael PA-C 300 [facility] [address] [place] [address] Specialist Vascular Surgery 10/01/23 [facility] [address] [place] [address] Specialist Optometry 10/01/23 documented as of this encounter
--- OUTSIDE RECORDS SUMMARY | 2024-04-23 13:50 | XMS_ITS | Data Portability ---
Author Organization [facility] [address] Address [address] [place] [address] Assessment No assessment recorded. Plan of Treatment Reminders Order Date Submit Date Provider Last Modified By Organization Details Last Modified Time Details Appointments None recorded. Lab rapid flu (A+B) 2021 022 marva zhang13 [address], [address] [place], [address], 14:02:10 rapid SARS CoV 2 Ag, QL IA, respiratory specimen 2021 [facility] [address], [address] [place], [address], 14:02:10 Referral None recorded. Procedures None recorded. Surgeries None recorded. Imaging None recorded. Medication Orders Tamiflu 75 mg capsule 2021 [id number], [phone] [place], [address], 03:31:38 promethazin e-DM 6.25 mg-15 mg/5 mL oral syrup 2021 [id number], [phone] [place], [address], 14:02:13 Patient TargetsNo targets recorded. Patient Instructions Encounter Date Encounter Id Patient Instructions Last Modified By Organization Details Last Modified Time 02/20/2022 [id number] You should follow-up with your PCP in [...] speci men Unknown Analyte Not Available [id number] [place] [address] [address] [place], [address], 02/20/2022 13:38:01 02/21/20 22 02/20/2022 rapid SARS CoV 2 Ag, QL IA, respi rator y speci men Unknown Analyte negati ve Not Available [address] [place], [address], 02/20/2022 13:38:01 02/21/20 22 02/20/2022 rapid flu (A+B) Unknown Analyte negati ve Not Available sprin [address] [place], [address], 02/20/2022 13:24:32 02/21/20 22 02/20/2022 rapid flu (A+B) Unknown Analyte Normal = Negati ve Not Available spr[address] [place], [address], 02/20/2022 13:24:32 02/21/20 22 02/20/2022 rapid flu (A+B) Unknown Analyte negati ve Not Available [address] [place], [address], 02/20/2022 13:24:32 02/21/20 22 02/20/2022 rapid flu (A+B) Unknown Analyte Normal = Negati ve Not Available [address] [place], [address], 02/20/2022 13:24:32 Result Notes None recorded. Problems Name Problem SNOMED Code Status Onset Date Resolution Date Notes Provider Name and Address Organization Details Recorded Time Hypertensive disorder 11414787 Active 2021 Layne Trevino null, PA - [facility] 2 13:21:27 Hyperlipidemia 97631111 Active 2021 Layne Trevino null, PA - [facility] 2 13:21:42 Thyroiditis 16374713 Active 2021 Laynetristen Trevino null, PA - [facility] 2 13:21:59 Environmental allergy 836485044 Active 2021 Layne Trevino null, PA - [facility] 2 13:22:12 Migraine 80000610 Active 2021 Layne Trevino null, PA - [facility] 2 13:22:21 Diabetes mellitus 72870002 Active 2021 Layne Trevino null, PA - [facility] 2 13:22:34 Asthma 314567034 Active 2021 Layne Trevino null, PA - [facility] 2 13:22:44 Problem Notes None recorded. Procedures Surgical History Date Name Laterality Status Provider Name and Address Organization Details Recorded Time Knee arthroscopy/levy rgery completed Layne Trevino PA - [facility] 02/20/2022 13:23:19 delivery completed Layne Tervino PA - [facility] 02/20/2022 13:23:34 Hernia repair w/mesh completed Layne Trevino PA - [facility] 02/20/2022 13:23:54 Imaging Results None recorded. Procedure Notes None recorded. Medical Equipment None Reported. Allergies Allergen ID Allergen Name Allergen Category Reaction Reaction Severity Criticality Documentation Date Start Date Code Code System Note Provider Name and Address Organization Details Recorded Time 74174 Product containin g penicilli n and antibioti c (product) medicatio n swelling Not available high 02/20/2022 88093 05 SNOMED Layne Trevino null, PA - [facility] 2 13:13:07 84314 Duricef medicatio n swelling Not available Not available 02/20/202266232 6 RxNorm Layne Trevino null, PA - [facility] 2 13:13:25 68711 Medrol medicatio n swelling Not available Not available 02/20/202225206 2 RxNorm Layne Trevino null, PA - [facility] 2 13:13:43 24972 oxycodone medicatio n Not available Not available Not available 02/20/2022 7804 RxNorm Layne Trevino null, PA - [facility] 2 13:13:52 90735 chocolate flavor food,medi cation Not available Not available Not available 02/20/2022 85776 UNDarren Trevino null, PA - [facility] 2 13:14:02 28335 almond allergeni c extract food Not available Not available Not available 02/20/2022 82458 7 RxNorm Layne Trevino null, PA - [facility] 2 13:14:09 87016 Canis lupus familiari s extract environme nt Not available Not available Not available 02/20/2022 56943 4 RxNorm Layne Trevino null, PA - [facility] 2 13:14:18 85035 cat dander environme nt Not available Not available Not available 02/20/2022 05097 UNK Layne Trevino null, PA - [facility] 2 13:14:22 40293 rabbit dander environme nt Not available Not available Not available 02/20/2022 68102 UNDarren SalgadoLaynetristen Trevino null, PA - [facility] 2 13:14:29 80417 latex environme nt,medica tion Not available Not available Not available 02/20/2022 17564 91 RxNorm Laynetristen Trevino null, PA - [facility] 2 13:14:36 28693 house dust mite environme nt Not available Not available Not available 02/20/2022 40749 UNK Layne Trevino null, PA - [facility] 2 13:14:44 97778 POLLEN EXTRACTS environme nt,medica tion Not available Not available Not available 02/20/2022 90164 6 RxNorm Layne Trevino null, PA - [facility] 2 13:14:56 19353 grass pollen environme nt,medica tion Not available Not available Not available 02/20/2022 60288 UNK Layne Trevino null, PA - [facility] 2 13:15:03 31211 ethinyl estradiol / levonorge strel medicatio n Not available Not available Not available 02/20/2022 88869 8 RxNorm Layne Trevino null, PA - [...] Updated DateTime 2 162.56 cm 44.6 kg/m2 387203. 02 g 100 % 100 % 85 [...] Fluids From A Person With Monkeypox? No [email or web address] Information not available 02/20/2022 Do You Use Any Illicit Or Recreational Drugs? No Information not available 02/20/2022 Have You Recently Traveled Abroad? No [email or web address] Information not available 02/20/2022 Sex: Unknown Functional [...] SNOMED-CT Code Diagnosis ICD10 Code Diagnosis Note [id number] [address] [address] [place] [address] 04/01/2019 17:17:25 04/01/2019 18:28:03 [id number] Evelina miller [place] [address] [facility] [address] [place] [address] 02/20/2022 12:02:53 02/20/2022 14:03:53 Generalized aches and pains 55261815 R52 Viral syndrome 809998338 B34.9 Health Concerns Section Related Observation LastModified by Organization Detai ls LastModified Time None Recorded Concern Status LastModified by Organization Details LastModified Time None Recorded Advance Directives Directive None Recorded Payers Encounter Date Sequence Insurance Name Policy Number Policy Saleh Covered Member ID Saleh Member ID Guarantor Name 04/01/2019 1 [facility] (MEDICAID REPLAC[facility] - HMO) [facility] Ana Luisa A House [id number] Ana Luisa A House 02/20/2022 1 [facility] (MEDICAID REPLACEMENT - HMO) [facility] Ana Luisa A House [id number] Ana Luisa A House Notes Date Note [...] Evelina Xiao MD [address] [place], [address], [place] - [facility] 02/20/2022 20:29:48 OBGyn Episode No OBEpisode recorded.
--- OUTSIDE RECORDS SUMMARY | 2024-04-23 13:50 | XMS_ITS | Encounter Summary ---
Author Organization [facility] Address [address] [place] [address] Care Team Providers Care Exercise Teacher Name Role Phone Teressa Solis DO Primary Care Pro vider Unavailable Mina Prtety DO Primary Care Provider Shweta Cronin MD Primary Care Provider Ora Diaz MD Primary Care Prov ider Jl Mendez MD Unavailable [phone] Jannette Boudreaux MD Unavailable [phone] Tenisha Mendieta PA-C Unavailable [phone] Julio Monk PA-C Unavailable Luis Armando Eller MD Unavailable [phone] Jayesh Pineda MD Unavailable Kelsi Tejada MD Unavailable Unavailable Pretty Le MD Unavailable Vesta Michael PA-C Unavailable [phone] [facility] Unavailable Encounter Details Date Type Department Care Team Description 01/05/2017 Partition Assembler Report Medical Records [address] [place] [address] Bobby [place] PA-C Social History Tobacco Use [...] on filedocumented in this encounter Care Teams Exercise Teacher Relationship Specialty Start Date End Date Teressa oSlis DO PCP - General Internal Medicine 12/18/13 09/15/20 Mina rPetty DO PCP - General Internal Medicine 09/16/20 Shweta Boucher MD PCP - General Internal Medicine 01/12/21 10/10/21 Ora Ronquillo MD [address] [place] [address] PCP - General Internal Medicine 10/11/21 Jl Mendez MD [address] [place] [address] Specialist Cardiovascular Disease 10/13/21 Jannette Boudreaux MD [address] [address] Surgeon Neurosurgery 04/07/22 Tenisha Mendieta PA-C [address] [address] Specialist Neurosurgery 04/07/22 Julio Monk PA-C [address] [address] Specialist Neurosurgery 04/07/22 Luis Armando Eller MD [address] [address] Specialist ORTHOPEDIC SURGERY 10/01/23 Jayesh Pineda MD [address] [place] [address] Specialist Endocrinology 10/01/23 Kelsi Tejada MD [address] [place] [address] Specialist Allergy & Immunology 10/01/23 Pretty Le MD 175 [facility] [address] [place] [address] Specialist Pulmonology 10/01/23 Vesta Michael PA-C 300 [facility] [address] [place] [address] Specialist Vascular Surgery 10/01/23 [facility] [address] [place] [address] Specialist Optometry 10/01/23 documented as of this encounter
--- OUTSIDE RECORDS SUMMARY | 2024-04-23 13:51 | XMS_ITS | Encounter Summary ---
Author Organization [facility] Address [address] [place] [address] Care Team Providers Care Mainframe Applications Developer Name Role Phone Teressa Solis DO Primary Care Pro vider Unavailable Mina Pretty DO Primary Care Provider Shweta Cronin MD Primary Care Provider Ora Diaz MD Primary Care Prov ider Jl Mendez MD Unavailable Jannette Boudreaux MD Unavailable [phone] Tenisha Mendieta PA-C Unavailable [phone] Julio Monk PA-C Unavailable Luis Armando Eller MD Unavailable [phone] Jayesh Pineda MD Unavailable Kelsi Tejada MD Unavailable Unavailable Pretty Le MD Unavailable Vesta Michael PA-C Unavailable [phone] [facility] Unavailable [phone] Encounter Details Date Type Department Care Team Description 05/17/2020 Radiation Therapy Technician Report Medical Records [address] [place] [address] Randy Domínguez MD Social History Tobacco Use [...] on filedocumented in this encounter Care Teams Mainframe Applications Developer Relationship Specialty Start Date End Date Teressa Solis DO PCP - General Internal Medicine 12/18/13 09/15/20 Mina Pretty DO PCP - General Internal Medicine 09/16/20 Shweta Boucher MD PCP - General Internal Medicine 01/12/21 10/10/21 Ora Ronquillo MD [address] [place] [address] PCP - General Internal Medicine 10/11/21 Jl Mendez MD [address] [place] [address] Dr Montiel [address] [place] [address] Specialist Cardiovascular Disease 10/13/21 Jannette Boudreaux MD [address] [address] Surgeon Neurosurgery 04/07/22 Tenisha Mendieta PA-C [address] [address] Specialist Neurosurgery 04/07/22 Julio Monk PA-C [address] [address] Specialist Neurosurgery 04/07/22 Luis Armando Eller MD [address] [address] Specialist ORTHOPEDIC SURGERY 10/01/23 Jayesh Pineda MD 305 [place] [address] Specialist Endocrinology 10/01/23 Kelsi Tejada MD [address] [place] [address] Specialist Allergy & Immunology 10/01/23 Pretty Le MD 175 [facility] [address] [place] [address] Specialist Pulmonology 10/01/23 Vesta Michael PA-C 300 [facility] [address] [place] [address] Specialist Vascular Surgery 10/01/23 [facility] [address] [place] [address] Specialist Optometry 10/01/23 documented as of this encounter
--- OUTSIDE RECORDS SUMMARY | 2024-04-23 13:51 | XMS_ITS | Encounter Summary ---
Author Organization [facility] Address [address] [place] [address] Care Team Providers Care Bottom Loader Name Role Phone Ora Ronquillo MD Primary Care Prov ider Jl Mendez MD Unavailable Jannette Boudreaux MD Unavailable [phone] Tenisha Mendieta PA-C Unavailable Julio Monk PA-C Unavailable [phone] Luis Armando Eller MD Unavailable [phone] Jayesh Pineda MD Unavailable Kelsi Tejada MD Unavailable Unavailable Pretty Le MD Unavailable Vesta Michael PA-C Unavailable [facility] Unavailable Encounter Details Date Type Department Care Team Description 01/10/2023 SCAN [facility] Medical [facility] 175 [facility] [address] [place] [address] Lorie Moore, DONN 1515 [facility] [place] [address] Social History Tobacco Use Types Packs/Day Years Used Date Smoking Tobacco: Never Smokeless Tobacco: Never Alcohol Use Standard Drinks/Week Comments No 0 (1 standard drink = 0.6 oz pur e alcohol) Education Answer Date Recorded What is the highest level of school you have completed or the highest degree you have received? 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) 06/14/2020 Sex Assigned at Date Recorded [...] on filedocumented in this encounter Care Teams Bottom Loader Relationship Specialty Start Date End Date Ora Ronquillo MD [address] [place] [address] PCP - General Internal Medicine 10/11/21 Jl Mendez MD [address] [place] [address] Dr Montiel [address] [place] [address] Specialist Cardiovascular Disease 10/13/21 Jannette Boudreaux MD [address] [address] Surgeon Neurosurgery 04/07/22 Tenisha Mendieta PA-C [address] [address] Specialist Neurosurgery 04/07/22 Julio Monk PA-C 175 [facility] [address] [place] [address] Specialist Neurosurgery 04/07/22 Luis Armando Eller MD [address] [address] Specialist ORTHOPEDIC SURGERY 10/01/23 Jayesh Pineda MD 305 [place] [address] Specialist Endocrinology 10/01/23 Kelsi Tejada MD [address] [place] [address] Specialist Allergy & Immunology 10/01/23 Pretty Le MD 175 [facility] [address] [place] [address] Specialist Pulmonology 10/01/23 Vesta Michael PA-C 300 [facility] [address] [place] [address] Specialist Vascular Surgery 10/01/23 [facility] [address] [place], [place] [address] Specialist Optometry 10/01/23 documented as of this encounter
--- OUTSIDE RECORDS SUMMARY | 2024-04-23 13:51 | XMS_ITS | Encounter Summary ---
Author Organization [facility] Address [address] [place] [address] Care Team Providers Care Commercial Journeyman Electrician Name Role Phone Ora Sweeney MD Primary Care Prov ider Reason for Visit * Reason Comments DM Foot Care Encounter Details Date Type Department Care Team (Late st Contact Info) Description 04/03/2024 9:45 AM EST Office Visit Orthopedic Surgery - [place] [address] [phone] Duke Dunn, DPJohan [address] [address] Controlled type 2 diabetes with neuropathy (CMS/HCC) [...] care for your loved ones. For example, childbirth educator or elderly care for an older adult? [...] Sharp/dull sensation intact, protective sensation intact on [place]. Multiple peripheral neuropathies bilateral lower extremity ORTHOPEDIC: [...] 9:45 AM EDT Office Visit Adult Medicine [address] [phone] Ora Sweeney MD [address] [place] [address] 06/04/2024 10:30 AM EDT Consult Bariatric Surgery [facility] [address] [phone] Lita Verde PA [address] [address] 06/04/2024 11:45 AM EDT Office Visit Orthopedic Surgery [facility] [address] [address] Luis Armando Eller MD [address] [address] 06/05/2024 9:45 AM EDT Office Visit Orthopedic Surgery [facility] 250 175 [facility] [place] [address] [place] [address] Duke Dunn DPM [address] [address] 06/06/2024 2:30 PM EDT Office Visit Obstetrics and Gynecology [address] [phone] Stacie Martinez CNM [address] [place] [address] 06/30/2024 10:30 AM EDT Office Visit Orthopedic Surgery - [place] 160 175 [facility] [place] 160 [place] [address] Luis Armando Eller MD 175 [facility] 160 [place] [address] 07/02/2024 9:30 AM EDT Office Visit Orthopedic Surgery [facility] 250 175 [facility] [place] [address] [place] [phone] Lorie Moore NP 175 [facility] 250 [place] [address] 07/09/2024 9:30 AM EDT Office Visit Endocrinology [address] [address] Jayesh Pineda MD [address] [place] [phone] 09/22/2024 8:45 AM EDT Office Visit Pulmonolgy - [place] 175 [facility] [place] 200 [place] [phone] Pretty Le MD 175 [facility] 200 [place] [address] documented as of this encounter Visit Diagnoses Diagnosis Controlled type 2 diabetes with neuropathy ([facility]/HCC)- Primary Type II or unspecified type diabetes mellitus with neurological manifestations, not stated as uncontrolled PVD (peripheral vascular disease) (CMS/HCC) Unspecified peripheral vascular disease Pain in both feet Difficulty walking Difficulty in walking Dermatophytosis, nail Dermatophytosis of nail documented in this encounter Care Teams Commercial Journeyman Electrician Relationship Specialty Start Date End Date Ora Sweeney MD [address] [place] [address] PCP - General Internal Medicine 01/09/24 documented as of this encounter
--- OUTSIDE RECORDS SUMMARY | 2024-04-23 13:51 | XMS_ITS | Encounter Summary ---
Author Organization [facility] Address [address] [place] [address] Care Team Providers Care Rotary Pump Operator Name Role Phone Mina Pretty DO Primary Care Provider Shweta Cronin MD Primary Care Provider Ora Diaz MD Primary Care Prov ider Jl Mendez MD Unavailable Jannette Boudreaux MD Unavailable [phone] Tenisha Mendieta PA-C Unavailable Julio Monk PA-C Unavailable [phone] Luis Armando Eller MD Unavailable [phone] Jayesh Pineda MD Unavailable Kelsi Tejada MD Unavailable Unavailable Pretty Le MD Unavailable Vesta Michael PA-C Unavailable [facility] Unavailable [phone] Reason for Visit * Reason Onset Date Comments APPOINTMENT 11/02/2020 Testing 11/02/2020 Encounter Details Date Type Department Care Team Description 11/02/2020 Telephone Vascular Surgery - [place] [address] [place] [address] Vesta Michael PA-C 300 [facility] [address] [place] [address] APPOINTMENT; Testing Social History Tobacco Use Types Packs/Day Years Used Date Smoking Tobacco: Never Smokeless Tobacco: Never Alcohol Use Standard Drinks/Week Comments No 0 (1 standard drink = 0.6 oz pur e alcohol) Education Answer Date Recorded What is the highest level of school you have completed or the highest degree you have received? 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 [facility] telephone number is , Fax is documented in this encounter Plan of Treatment Not on file documented as of this encounter Visit Diagnoses Not on filedocumented in this encounter Care Teams Rotary Pump Operator Relationship Specialty Start Date End Date Mina Pretty DO PCP - General Internal Medicine 09/16/20 1 Shweta Tellez MD PCP - General Internal Medicine 01/12/21 10/10/21 Ora Ronquillo MD [address] [place] [address] PCP - General Internal Medicine 10/11/21 Jl Mendez MD [address] [place] [address] Dr Montiel [address] [place] [address] Specialist Cardiovascular Disease 10/13/21 Jannette Boudreaux MD [address] [address] Surgeon Neurosurgery 04/07/22 Tenisha Mendieta PA-C [address] [address] Specialist Neurosurgery 04/07/22 Julio Monk PA-C 175 [facility] [address] [place] [address] Specialist Neurosurgery 04/07/22 Luis Armando Eller MD [address] [address] Specialist ORTHOPEDIC SURGERY 10/01/23 Jayesh Pineda MD [address] [place] [address] Specialist Endocrinology 10/01/23 Kelsi Tejada MD 305 [place] [address] Specialist Allergy & Immunology 10/01/23 Pretty Le MD 175 [facility] [address] [place] [address] Specialist Pulmonology 10/01/23 Vesta Michael PA-C 300 [facility] 210 [place] [address] Specialist Vascular Surgery 10/01/23 [facility] [address] [place], [place] [address] Specialist Optometry 10/01/23 documented as of this encounter
--- OUTSIDE RECORDS SUMMARY | 2024-04-23 13:51 | XMS_ITS | Encounter Summary ---
Author Organization [facility] Address [address] [place] [address] Care Team Providers Care Gas Dispenser Name Role Phone Geno Cueva MD Primary Care Provider Unavailable Teressa Solis DO Primary Care Pro vider Unavailable Mina Pretty DO Primary Care Provider Ailyn Shweta Pretty MD Primary Care Provider Ora Diaz MD Primary Care Prov ider Jl Mendez MD Unavailable [phone] Jannette Boudreaux MD Unavailable [phone] Tenisha Mendieta PA-C Unavailable [phone] Julio Monk PA-C Unavailable Luis Armando Eller MD Unavailable [phone] Jayesh Pineda MD Unavailable Kelsi Tejada MD Unavailable Unavailable Pretty Le MD Unavailable Vesta Michael-Pina Unavailable [facility] Unavailable Reason for Visit * Reason Onset Date Comments Provider Call Back 11/03/2013 Encounter Details Date Type Department Care Team Description 11/03/2013 Telephone Adult Medicine [address] [id number] Lisandra Gracia PA-C Provider Call Back Social History Tobacco Use [...] encounter Miscellaneous Notes * Telephone Encounter - Lisandra Gracia PA-C - 11/03/2013 12:56 PM EDT Ana Luisa House has undergone MyRisk testing. The test results were negative.. This result is scanned in the record. Based upon a discussion of these findings, she does not need enhanced breast cancer screening at this time. She understands she needs enhanced ovarian cancer surveillance. This should include pelvic exams every 6 mos with transvaginal U/S and CA-125. Tyrer-Cuzick modeling is indicated today and shows a 7.2% lifetime risk for breast cancer.. Tyrer-Cuzick Risk Model Hyperlink * Telephone Encounter - Danielle Broussard - 11/03/2013 12:36 PM EDT Patient returning call to Lisandra Gracia documented in this encounter Plan of Treatment Not on file documented as of this encounter Visit Diagnoses Diagnosis Genetic counseling- Primary documented in this encounter Care Teams Gas Dispenser Relationship Specialty Start Date End Date Geno Cueva MD PCP - General Internal Medicine 06/28/1212/17/13 Teressa Solis DO PCP - General Internal Medicine 12/18/13 09/15/20 Mina Pretty DO PCP - General Internal Medicine 09/16/20 1 Shweta Tellez MD PCP - General Internal Medicine 01/12/21 10/10/21 Ora Ronquillo MD [address] [place] [address] PCP - General Internal Medicine 10/11/21 Jl Mendez MD [address] [place] [address] Dr Mont[address] [place] [address] Specialist Cardiovascular Disease 10/13/21 Jannette Boudreaux MD 175 [facility] 300 [place] [address] Surgeon Neurosurgery 04/07/22 Tenisha Mendieta PA-C [address] [address] Specialist Neurosurgery 04/07/22 Julio Monk PA-C [address] [address] Specialist Neurosurgery 04/07/22 Luis Armando Eller MD [address] [address] Specialist ORTHOPEDIC SURGERY 10/01/23 Jayesh Pineda MD 305 [place] [address] Specialist Endocrinology 10/01/23 Kelsi Tejada MD 305 [place] [address] Specialist Allergy & Immunology 10/01/23 Pretty Le MD 175 [facility] 200 [place] [address] Specialist Pulmonology 10/01/23 Vesta Michael PA-C 300 [facility] 210 [place] [address] Specialist Vascular Surgery 10/01/23 [facility] [address] [place], [place] [address] Specialist Optometry 10/01/23 documented as of this encounter
--- OUTSIDE RECORDS SUMMARY | 2024-04-23 13:51 | XMS_ITS | Encounter Summary ---
Author Organization [facility] Address [address] [place] [address] Care Team Providers Care Rehabilitation Therapy Aide Name Role Phone Shweta Tellez MD Primary Care Provider Ora Diaz MD Primary Care Prov ider Jl Mendez MD Unavailable Jannette Boudreaux MD Unavailable [phone] Tenisha Mendieta PA-C Unavailable Julio Monk PA-C Unavailable [phone] Luis Armando Eller MD Unavailable [phone] Jayesh Pineda MD Unavailable Kelsi Tejada MD Unavailable Unavailable Pretty Le MD Unavailable Vesta Michael PA-C Unavailable [facility] Unavailable Encounter Details Date Type Department Care Team Description 05/11/2021 Orders Only Endocrinology - [place] [address] [place] [address] Jayesh Pineda MD 305 [place], [place] [phone] Hyperparathyroidism (HCC) (Primary Dx) Social History Tobacco Use Types Packs/Day Years Used Date Smoking Tobacco: Never Smokeless Tobacco: Never Alcohol Use Standard Drinks/Week Comments No 0 (1 standard drink = 0.6 oz pur e alcohol) Education Answer Date Recorded What is the highest level of school you have completed or the highest degree you have received? 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, BILINGUAL SCHOOL PSYCHOLOGIST, CHANDRAKANT) 06/14/2020 Sex Assigned at Date Recorded [...] unspecified documented in this encounter Care Teams Rehabilitation Therapy Aide Relationship Specialty Start Date End Date Shweta Tellez MD PCP - General Internal Medicine 01/12/21 10/10/21 Ora Ronquillo MD 4 [place], [place] [phone] PCP - General Internal Medicine 10/11/21 Jl Mendez MD [address] [place] [address] [place] [address] Specialist Cardiovascular Disease 10/13/21 Jannette Boudreaux MD 175 [facility] 300 [place] [address] Surgeon Neurosurgery 04/07/22 Tenisha Mendieta PA-C 175 [facility] 300 [place] [address] Specialist Neurosurgery 04/07/22 Julio Monk PA-C [address] [facility] 300 [place] [address] Specialist Neurosurgery 04/07/22 Luis Armando Eller MD 175 [facility] 250 [place] [address] Specialist ORTHOPEDIC SURGERY 10/01/23 Jayesh Pineda MD 305 [place] [address] Specialist Endocrinology 10/01/23 Kelsi Tejada MD 305 [place] [address] Specialist Allergy & Immunology 10/01/23 Pretty Le MD 175 [facility] 200 [place] [address] Specialist Pulmonology 10/01/23 Vesta Michael PA-C 300 [facility] 210 [place] [address] Specialist Vascular Surgery 10/01/23 [facility] 46 [place] [address] Specialist Optometry 10/01/23 documented as of this encounter
--- OUTSIDE RECORDS SUMMARY | 2024-04-23 13:51 | XMS_ITS | Encounter Summary ---
Author Organization [facility] Address [address] [place] [address] Care Team Providers Care Correctional Sergeant Name Role Phone Teressa Solis DO Primary Care Pro vider Unavailable Mina Pretty DO Primary Care Provider Shweta Cronin MD Primary Care Provider Ora Diaz MD Primary Care Prov ider Jl Mendez MD Unavailable Jannette Boudreaux MD Unavailable [phone] Tenisha Mendieta PA-C Unavailable Julio Monk PA-C Unavailable Luis Armando Eller MD Unavailable [phone] Jayesh Pineda MD Unavailable Kelsi Tejada MD Unavailable Unavailable Pretty Le MD Unavailable Vesta Michael PA-C Unavailable [facility] Unavailable Reason for Visit * Reason Comments E-prescribe Rx Request Encounter Details Date Type Department Care Team Description 03/07/2019 Refill Adult Medicine [address] [phone] Deborah Addison PA-C E-prescribe Rx Request Social [...] N/A Patients current insurance carrier is: Payor: [employer] FFS / Plan: [employer] / Product Type: MEDICAID RISK documented in this encounter Plan of Treatment Not on file documented as of this encounter Visit Diagnoses Not on filedocumented in this encounter Care Teams Correctional Sergeant Relationship Specialty Start Date End Date Teressa Solis DO PCP - General Internal Medicine 12/18/13 09/15/20 Mina Pretty DO PCP - General Internal Medicine 09/16/20 Shweta Boucher MD PCP - General Internal Medicine 01/12/21 10/10/21 Ora Ronquillo MD 444 [place] [address] PCP - General Internal Medicine 10/11/21 Jl Mendez MD [address] [place] [address] Dr Mont[address] [place] [address] Specialist Cardiovascular Disease 10/13/21 Jannette Boudreaux MD 175 [facility] 300 [place] [address] Surgeon Neurosurgery 04/07/22 Tenisha Mendieta PA-C [address] [address] Specialist Neurosurgery 04/07/22 Julio Monk PA-C 175 [facility] 300 [place] [address] Specialist Neurosurgery 04/07/22 Luis Armando Eller MD 175 [facility] [place] [facility] 250 [place] [address] Specialist ORTHOPEDIC SURGERY 10/01/23 Jayesh Pineda MD 305 [place] [address] Specialist Endocrinology 10/01/23 Kelsi Tejada MD 305 [place] [address] Specialist Allergy & Immunology 10/01/23 Pretty Le MD 175 [facility] 200 [place] [address] Specialist Pulmonology 10/01/23 Vesta Michael PA-C 300 [facility] 210 [place] [address] Specialist Vascular Surgery 10/01/23 [place] [address] [place] [address] Specialist Optometry 10/01/23 documented as of this encounter
--- OUTSIDE RECORDS SUMMARY | 2024-04-23 13:51 | XMS_ITS | Encounter Summary ---
Author Organization [facility] Address [address] [place] [address] Care Team Providers Care Skimmer Reverberatory Name Role Phone Ora Ronquillo MD Primary Care Prov ider Jl Mendez MD Unavailable [phone] Jannette Boudreaux MD Unavailable [phone] Tenisha Mendieta PA-C Unavailable Julio Monk PA-C Unavailable Luis Armando Eller MD Unavailable [phone] Jayesh Pineda MD Unavailable Kelsi Tejada MD Unavailable Unavailable Pretty Le MD Unavailable Vesta Michael PA-C Unavailable [facility] Unavailable Reason for Visit * Reason Onset Date Comments REFERRAL 11/06/2022 Encounter Details Date Type Department Care Team Description 11/06/2022 Telephone Adult Medicine [address] [phone] Ora Ronquillo MD [address] [place] [id number] REFERRAL Social History Tobacco Use Types Packs/Day Years Used Date Smoking Tobacco: Never Smokeless Tobacco: Never Alcohol Use Standard Drinks/Week Comments No 0 (1 standard drink = 0.6 oz pur e alcohol) Education Answer Date Recorded What is the highest level of school you have completed or the highest degree you have received? 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, TIPPING MACHINE OPERATOR AUTOMATIC, CHANDRAKANT) 06/14/2020 Sex Assigned at Date Recorded [...] encounter Miscellaneous Notes * Telephone Encounter - Harish Epstein - 11/06/2022 11:27 AM EDT What insurance does the patient have today? Payor: [facility] FFS / Plan: [facility] [employer] / Product Type: MEDICAID RISK Effective 12/10/08: [...] insurance must be obtained and registered in [facility] or their referral can not be processed. Is this a retro request? NO. If yes for what date of service do you need the retro referral? N/A Who is calling to request this referral? Patient If the caller is not the patient, what is their name? N/A Ask the patient WHO referred them to this specialty: Patient self referred FIRST and LAST NAME of SPECIALIST PATIENT is seeing: Dr Wade What specialty is this? Podiatry DIAGNOSIS Patient is being seen for (Not a body part or a procedure): Diabetes Have you seen this SPECIALIST for this PROBLEM/DX before?NO If YES, when: Have you checked REVIEW or the APPT DESK to see if this referral has already been done or has visits left? YES Is this visit:Initial Visit Address of Specialist:[address] [place] [address] , [address] , [facility] [address] Phone # of Specialist: Fax #: (if applicable): Does patient have an appointment scheduled?: NO Date of appointment- (including a retro-request): Is this appointment related to: Not MVA, WC or Surgery related documented in this encounter Plan of Treatment Not on file documented as of this encounter Visit Diagnoses Not on filedocumented in this encounter Care Teams Skimmer Reverberatory Relationship Specialty Start Date End Date Ora Ronquillo MD 444 [place] [address] PCP - General Internal Medicine 10/11/21 Jl Mendez MD [address] [place] [address] Dr Montiel [address] [place] [address] Specialist Cardiovascular Disease 10/13/21 Jannette Boudreaux MD 175 [facility] 300 [place] [address] Surgeon Neurosurgery 04/07/22 Tenisha Mendieta PA-C 175 [facility] 300 [place] [address] Specialist Neurosurgery 04/07/22 Julio Monk PA-C 175 [facility] 300 [place] [address] Specialist Neurosurgery 04/07/22 Luis Armando Eller MD 175 [facility] 250 [place] [address] Specialist ORTHOPEDIC SURGERY 10/01/23 Jayesh Pineda MD 305 [place] [address] Specialist Endocrinology 10/01/23 Kelsi Tejada MD 305 [place] [address] Specialist Allergy & Immunology 10/01/23 Pretty Le MD 175 [facility] [address] [place] [address] Specialist Pulmonology 10/01/23 Vesta Michael PA-C 300 [facility] 210 [place] [address] Specialist Vascular Surgery 10/01/23 [facility] 46 [place] [address] Specialist Optometry 10/01/23 documented as of this encounter
--- OUTSIDE RECORDS SUMMARY | 2024-04-23 13:51 | XMS_ITS | Encounter Summary ---
Author Organization [facility] Address [address] [place] [address] Care Team Providers Care Court Administrator Name Role Phone Teressa Solis DO Primary Care Pro vider Unavailable Mina Pretty DO Primary Care Provider Shweta Cronin MD Primary Care Provider Ora Diaz MD Primary Care Prov ider Jl Mendez MD Unavailable Jannette Boudreaux MD Unavailable [phone] Tenisha Mendieta PA-C Unavailable Julio Monk PA-C Unavailable [phone] Luis Armando Eller MD Unavailable [phone] Jayesh Pineda MD Unavailable Kelsi Tejada MD Unavailable Unavailable Pretty Le MD Unavailable Vesta Michael PA-C Unavailable [phone] [facility] Unavailable Reason for Visit * Reason Onset Date Comments allergy injection 01/20/2019 Encounter Details Date Type Department Care Team Description 01/20/2019 Telephone Allergy [place] 98 [address] [place] [address] Kelsi Tejada MD allergy injection [...] if fax was recevied with documention, # [phone] documented in this encounter Plan of Treatment Not on file documented as of this encounter Visit Diagnoses Not on filedocumented in this encounter Care Teams Court Administrator Relationship Specialty Start Date End Date Teressa Solis, PCP - General Internal Medicine 12/18/13 09/15/20 Mina Pretty DO PCP - General Internal Medicine 09/16/20 Shweta Boucher MD PCP - General Internal Medicine 01/12/21 10/10/21 Ora Ronquillo MD [address] [place] [address] PCP - General Internal Medicine 10/11/21 Jl Mendez MD [address] [place] [address] [place] [address] Specialist Cardiovascular Disease 10/13/21 Jannette Boudreaux MD [address] [address] Surgeon Neurosurgery 04/07/22 Tenisha Mendieta PA-C [address] [address] Specialist Neurosurgery 04/07/22 Julio Monk PA-C 175 [facility] 300 [place] [address] Specialist Neurosurgery 04/07/22 Luis Armando Eller MD 175 [facility] [address] [place] [address] Specialist ORTHOPEDIC SURGERY 10/01/23 Jayesh Pineda MD 305 [place] [address] Specialist Endocrinology 10/01/23 Kelsi Tejada MD 305 [place] [address] Specialist Allergy & Immunology 10/01/23 Pretty Le MD 175 [facility] 200 [place] [address] Specialist Pulmonology 10/01/23 Vesta Michael PA-C 300 [facility] 210 [place] [address] Specialist Vascular Surgery 10/01/23 [facility] 46 [place] [address] Specialist Optometry 10/01/23 documented as of this encounter
--- OUTSIDE RECORDS SUMMARY | 2024-04-23 13:51 | XMS_ITS | Encounter Summary ---
Author Organization [facility] Address [address] [place] [address] Care Team Providers Care Chip Bin Operator Name Role Phone Teressa Solis DO Primary Care Pro vider Unavailable Mina Pretty DO Primary Care Provider Shweta Cronin MD Primary Care Provider Ora Diaz MD Primary Care Prov ider Jl Mendez MD Unavailable Jannette Boudreaux MD Unavailable [phone] Tenisha Mendieta PA-C Unavailable Julio Monk PA-C Unavailable Luis Armando Eller MD Unavailable [phone] Jayesh Pineda MD Unavailable Kelsi Tejada MD Unavailable Unavailable Pretty Le MD Unavailable Vesta Michael PA-C Unavailable [phone] [facility] Unavailable [phone] Reason for Visit * Reason Comments E-prescribe Rx Request Encounter Details Date Type Department Care Team Description 07/15/2020 Refill Allergy [place] 98 [address] [place] [phone] Zonia uGerrero PA-C E-prescribe Rx Request Social History Tobacco Use Types Packs/Day Years Used Date Smoking Tobacco: Never Smokeless Tobacco: Never Alcohol Use Standard Drinks/Week Comments No 0 (1 standard drink = 0.6 oz pur e alcohol) Education Answer Date Recorded What is the highest level of school you have completed or the highest degree you have received? 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, 2ND GRADE TEACHER, CHANDRAKANT) 06/14/2020 Sex Assigned at Date [...] encounter Miscellaneous Notes * Telephone Encounter - Zonia Guerrero PA-C - 07/20/2020 3:34 PM EDT No problem! Rx sent electronically. * Telephone Encounter - Nola Campbell R.N. - 07/20/2020 3:11 PM EDT If you can send electronically then that would be beneficial. If you are unable, I can call in a verbal script or fax a hard copy. * Telephone Encounter - Madyson Durbin - 07/20/2020 3:03 PM EDT Pharmacy calling. They not received the prescription. Please advise. * Telephone Encounter - Zonia Guerrero PA-C - 07/15/2020 4:04 PM EDT González Vaca, Just checking if you need this Rx printed or if I should send electronically to [facility] as is pended. Thank you * Telephone Encounter - Eva Monsivais M.A. - 07/15/2020 3:57 PM EDT 05/10/2020 F/U- 11/16/2020 documented in this encounter Plan of Treatment Not on file documented as of this encounter Visit Diagnoses Not on filedocumented in this encounter Care Teams Chip Bin Operator Relationship Specialty Start Date End Date Teressa Solis DO PCP - General Internal Medicine 12/18/13 09/15/20 Mina Pretty DO PCP - General Internal Medicine 09/16/20 Shweta Boucher MD PCP - General Internal Medicine 01/12/21 10/10/21 Ora Ronquillo MD [address] [place] [address] PCP - General Internal Medicine 10/11/21 Jl Mendez MD [address] [place] [address] Dr Montiel [address] [place] [address] Specialist Cardiovascular Disease 10/13/21 Jannette Boudreaux MD [address] [address] Surgeon Neurosurgery 04/07/22 Tenisha Mendieta PA-C [address] [address] Specialist Neurosurgery 04/07/22 Julio Monk PA-C 175 [facility] [address] [place] [address] Specialist Neurosurgery 04/07/22 Luis Armando Eller MD [address] [address] Specialist ORTHOPEDIC SURGERY 10/01/23 Jayesh Pineda MD 305 [place] [address] Specialist Endocrinology 10/01/23 Kelsi Tejada MD 305 [place] [address] Specialist Allergy & Immunology 10/01/23 Pretty Le MD 175 [facility] [address] [place] [address] Specialist Pulmonology 10/01/23 Vesta Michael PA-C 300 [facility] 210 [place] [address] Specialist Vascular Surgery 10/01/23 [facility] 46 [place] [address] Specialist Optometry 10/01/23 documented as of this encounter
--- OUTSIDE RECORDS SUMMARY | 2024-04-23 13:51 | XMS_ITS | Encounter Summary ---
Author Organization [facility] Address [address] [place] [address] Care Team Providers Care Associate Professor Name Role Phone Ora Ronquillo MD Primary Care Prov ider Jl Mendez MD Unavailable Jannette Boudreaux MD Unavailable [phone] Tenisha Mendieta PA-C Unavailable Julio MonkC Unavailable [phone] Luis Armando Eller MD Unavailable [phone] Jayesh Pineda MD Unavailable Kelsi Tejada MD Unavailable Unavailable Pretty Le MD Unavailable Vesta Michael PA-C Unavailable [phone] [facility] Unavailable [phone] Encounter Details Date Type Department Care Team Description 11/14/2022 Boat Oar Maker Report Medical Records [address] [place] [address] Jensen Nam MD Social History Tobacco Use Types Packs/Day Years Used Date Smoking Tobacco: Never Smokeless Tobacco: Never Alcohol Use Standard Drinks/Week Comments No 0 (1 standard drink = 0.6 oz pur e alcohol) Education Answer Date Recorded What is the highest level of school you have completed or the highest degree you have received? 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, GLUING MACHINE ADJUSTER, CHANDRAKANT) 06/14/2020 Sex Assigned at Date Recorded [...] on filedocumented in this encounter Care Teams Associate Professor Relationship Specialty Start Date End Date Ora Ronquillo MD [address] [place] [address] PCP - General Internal Medicine 10/11/21 Jl Mendez MD [address] [place] [address] Dr Mont[address] [place] [address] Specialist Cardiovascular Disease 10/13/21 Jannette Boudreaux MD 175 [facility] [address] [place] [address] Surgeon Neurosurgery 04/07/22 Tenisha Mendieta PA-C [address] [address] Specialist Neurosurgery 04/07/22 Julio Monk PA-C 175 [facility] [address] [place] [address] Specialist Neurosurgery 04/07/22 Luis Armando Eller MD [address] [address] Specialist ORTHOPEDIC SURGERY 10/01/23 Jayesh Pineda MD 305 [place] [address] Specialist Endocrinology 10/01/23 Kelsi Tejada MD 305 [place] [address] Specialist Allergy & Immunology 10/01/23 Pretty Le MD 175 [facility] 200 [place] [address] Specialist Pulmonology 10/01/23 Vesta Michael PA-C 300 [facility] 210 [place] [address] Specialist Vascular Surgery 10/01/23 [facility] [address] [place] [address] Specialist Optometry 10/01/23 documented as of this encounter
--- OUTSIDE RECORDS SUMMARY | 2024-04-23 13:51 | XMS_ITS | Encounter Summary ---
Author Organization [facility] Address [address] [place] [address] Care Team Providers Care Chief Service Dispatcher Name Role Phone Teressa Solis DO Primary Care Pro vider Unavailable Mina Pretty DO Primary Care Provider Shweta Cronin MD Primary Care Provider Ora Diaz MD Primary Care Prov ider Jl Mendez MD Unavailable [phone] Jannette Boudreaux MD Unavailable [phone] Tenisha Mendieta PA-C Unavailable Julio Monk PA-C Unavailable Luis Armando Eller MD Unavailable [phone] Jayesh Pineda MD Unavailable Kelsi Tejada MD Unavailable Unavailable Pretty Le MD Unavailable Vesta Michael PA-C Unavailable [facility] Unavailable [phone] Encounter Details Date Type Department Care Team Description 06/21/2018 SCAN Medical Records 4 [place] [address] Abstract, Provider Social History Tobacco Use Types [...] on filedocumented in this encounter Care Teams Chief Service Dispatcher Relationship Specialty Start Date End Date Teressa Solis DO PCP - General Internal Medicine 12/18/13 09/15/20 Mina Pretty DO PCP - General Internal Medicine 09/16/20 Shweta Boucher MD PCP - General Internal Medicine 01/12/21 10/10/21 Ora Ronquillo MD [address] [place] [address] PCP - General Internal Medicine 10/11/21 Jl Mendez MD [address] [place] [address] Dr Montiel [address] [place] [address] Specialist Cardiovascular Disease 10/13/21 Jannette Boudreaux MD [address] [address] Surgeon Neurosurgery 04/07/22 Tenisha Mendieta PA-C [address] [address] Specialist Neurosurgery 04/07/22 Julio Monk PA-C [address] [address] Specialist Neurosurgery 04/07/22 Luis Armando Eller MD [address] [address] Specialist ORTHOPEDIC SURGERY 10/01/23 Jayesh Pineda MD 305 [place] [address] Specialist Endocrinology 10/01/23 Kelsi Tejada MD 305 [place] [address] Specialist Allergy & Immunology 10/01/23 Pretty Le MD 175 [facility] [address] [place] [address] Specialist Pulmonology 10/01/23 Vesta Michael PA-C 300 [facility] 210 [place] [address] Specialist Vascular Surgery 10/01/23 [facility] [address] [place] [address] Specialist Optometry 10/01/23 documented as of this encounter
--- OUTSIDE RECORDS SUMMARY | 2024-04-23 13:51 | XMS_ITS | Encounter Summary ---
Author Organization [facility] Address [address] [place] [address] Care Team Providers Care Patient Care Nursing Assistant Name Role Phone Teressa Solis DO Primary Care Pro vider Unavailable Mina Pretty DO Primary Care Provider Shweta Cronin MD Primary Care Provider Ora Diaz MD Primary Care Prov ider Jl Mendez MD Unavailable [phone] Jannette Boudreaux MD Unavailable [phone] Tenisha Mendieta PA-C Unavailable Julio Monk PA-C Unavailable [phone] Luis Armando Eller MD Unavailable [phone] Jayesh Pineda MD Unavailable Kelsi Tejada MD Unavailable Unavailable Pretty Le MD Unavailable Vesta Michael PA-C Unavailable [phone] [facility] Unavailable [phone] Encounter Details Date Type Department Care Team Description 12/31/2018 Old Medical Records Medical Records [address] [place] [address] Abstract, Provider Social History Tobacco Use Types [...] on filedocumented in this encounter Care Teams Patient Care Nursing Assistant Relationship Specialty Start Date End Date Teressa Solis DO PCP - General Internal Medicine 12/18/13 09/15/20 Mina Pretty DO PCP - General Internal Medicine 09/16/20 Shweta Boucher MD PCP - General Internal Medicine 01/12/21 10/10/21 Ora Ronquillo MD [address] [place] [address] PCP - General Internal Medicine 10/11/21 Jl Mendez MD [address] [place] [address] [place] [address] Specialist Cardiovascular Disease 10/13/21 Jannette Boudreaux MD [address] [address] Surgeon Neurosurgery 04/07/22 Tenisha Mendieta PA-C [address] [address] Specialist Neurosurgery 04/07/22 Julio Monk PA-C [address] [address] Specialist Neurosurgery 04/07/22 Luis Armando Eller MD [address] [address] Specialist ORTHOPEDIC SURGERY 10/01/23 Jayehs Pineda MD 305 [place] [address] Specialist Endocrinology 10/01/23 Kelsi Tejada MD 305 [place] [address] Specialist Allergy & Immunology 10/01/23 Pretty Le MD 175 [facility] [address] [place] [address] Specialist Pulmonology 10/01/23 Vesta Michael PA-C 300 [facility] [address] [place] [address] Specialist Vascular Surgery 10/01/23 [facility] 46 [place] [address] Specialist Optometry 10/01/23 documented as of this encounter
--- OUTSIDE RECORDS SUMMARY | 2024-04-23 13:51 | XMS_ITS | Encounter Summary ---
Author Organization [facility] Address [address] [place] [address] Care Team Providers Care Typing Element Machine Operator Name Role Phone Teressa Solis DO Primary Care Pro vider Unavailable Mina Pretty DO Primary Care Provider Shweta Cronin MD Primary Care Provider Ora Diaz MD Primary Care Prov ider Jl Mendez MD Unavailable [phone] Jannette Boudreaux MD Unavailable [phone] Tenisha Mendieta PA-C Unavailable Julio MonkC Unavailable [phone] Luis Armando Eller MD Unavailable [phone] Jayesh Pineda MD Unavailable Kelsi Tejada MD Unavailable Unavailable Pretty Le MD Unavailable Vesta Michael PA-C Unavailable [phone] [facility] Unavailable [phone] Reason for Visit * Reason Comments E-prescribe Rx Request Encounter Details Date Type Department Care Team Description 04/07/2019 Refill Allergy [facility] 98 [address] [place] [phone] Kelsi Tejada MD E-prescribe Rx Request Social [...] sinusitis documented in this encounter Care Teams Typing Element Machine Operator Relationship Specialty Start Date End Date Teressa Solis DO PCP - General Internal Medicine 12/18/13 09/15/20 Mina Pretty DO PCP - General Internal Medicine 09/16/20 Shweta Boucher MD PCP - General Internal Medicine 01/12/21 10/10/21 Ora Ronquillo MD [address] [place] [address] PCP - General Internal Medicine 10/11/21 Jl Mendez MD [address] [place] [address] Dr Mont[address] [place] [address] Specialist Cardiovascular Disease 10/13/21 Jannette Boudreaux MD [address] [address] Surgeon Neurosurgery 04/07/22 Tenisha Mendieta PA-C [address] [address] Specialist Neurosurgery 04/07/22 Julio Monk PA-C [address] [address] Specialist Neurosurgery 04/07/22 Luis Armando Eller MD [address] [address] Specialist ORTHOPEDIC SURGERY 10/01/23 Jayesh Pineda MD 305 [place] [address] Specialist Endocrinology 10/01/23 Kelsi Tejada MD 305 [place] [address] Specialist Allergy & Immunology 10/01/23 Pretty Le MD 175 [facility] [address] [place] [address] Specialist Pulmonology 10/01/23 Vesta Michael PA-C 300 [facility] 210 [place] [address] Specialist Vascular Surgery 10/01/23 [facility] 46 [place], [place] [address] Specialist Optometry 10/01/23 documented as of this encounter
--- OUTSIDE RECORDS SUMMARY | 2024-04-23 13:51 | XMS_ITS | Encounter Summary ---
Author Organization [facility] Address [address] [place] [address] Care Team Providers Care Customs And Immigration Officer Name Role Phone Teressa Solis DO Primary Care Pro vider Unavailable Mina Pretty DO Primary Care Provider Shweta Cronin MD Primary Care Provider Ora Diaz MD Primary Care Prov ider Jl Mendez MD Unavailable [phone] Jannette Boudreaux MD Unavailable [phone] Tenisha Mendieta PA-C Unavailable Julio Monk PA-C Unavailable [phone] Luis Armando Eller MD Unavailable [phone] Jayesh Pineda MD Unavailable Kelsi Tejada MD Unavailable Unavailable Pretty Le MD Unavailable Vesta Michael PA-C Unavailable [phone] [facility] Unavailable [phone] Encounter Details Date Type Department Care Team Description 04/01/2019 Walk In Clinic Visit Medical Records 444 [place] [address] [place] [address] [place] [address] Social History Tobacco Use Types [...] on filedocumented in this encounter Care Teams Customs And Immigration Officer Relationship Specialty Start Date End Date Teressa Solis DO PCP - General Internal Medicine 12/18/13 09/15/20 Mina Pretty DO PCP - General Internal Medicine 09/16/20 Shwtea Boucher MD PCP - General Internal Medicine 01/12/21 10/10/21 Ora Ronquillo MD [address] [place] [address] PCP - General Internal Medicine 10/11/21 Jl Mendez MD [address] [place] [address] Dr Montiel [address] [place] [address] Specialist Cardiovascular Disease 10/13/21 Jannette Boudreaux MD [address] [address] Surgeon Neurosurgery 04/07/22 Tenisha Mendieta PA-C [address] [address] Specialist Neurosurgery 04/07/22 Julio Monk PA-C [address] [address] Specialist Neurosurgery 04/07/22 Luis Armando Eller MD [address] [address] Specialist ORTHOPEDIC SURGERY 10/01/23 Jayesh Pineda MD 305 [place] [address] Specialist Endocrinology 10/01/23 Kelsi Tejada MD 305 [place] [address] Specialist Allergy & Immunology 10/01/23 Pretty Le MD 175 [facility] [address] [place] [address] Specialist Pulmonology 10/01/23 Vesta Mcihael PA-C 300 [facility] 210 [place] [address] Specialist Vascular Surgery 10/01/23 [facility] 46 [place] [address] Specialist Optometry 10/01/23 documented as of this encounter
--- OUTSIDE RECORDS SUMMARY | 2024-04-23 13:51 | XMS_ITS | Encounter Summary ---
Author Organization [facility] Address [address] [place] [address] Care Team Providers Care Riprap Worker Name Role Phone Ora Sweeney MD Primary Care Prov ider Reason for Visit * Consultation (Elective) - Authorized Specialty Diagnoses / Procedures Referred By Janie t Referred To Contact Occupational Therapy Diagnoses S/P left rotator cuff repair Luis Armando Eller MD 175 [facility] 160 [place] [address] Phone: tel: fax: [facility] Occupational Therapy [address] [address] Phone: tel: fax: Referral ID Status Reason Start Date Expiration Date Visits Requested Visits Authorized [id number] Authorized Specialty Services Required 01/08/2025 21 21 Encounter Details Date Type Department Care Team (Late st Contact Info) Description 03/25/2024 9:00 AM EST Treatment [facility] [address] [address] Lisa Jones COTA Social History [...] your loved ones. For example, childcare center administrator or elderly care for an older adult? [...] QUANG Hoffman - 03/25/2024 9:00 AM EST [facility] - Outpatient OCCUPATIONAL THERAPY DAILY TREATMENT NOTE Date: 03/25/2024 Visit Number: [id number] Patient Name: Ana Luisa House : 1960 Age: 63 y.o. Gender: female Diagnosis: No diagnosis found. Date of Onset: 12/06/2023 Referring Provider: Luis Armando Eller MD Insurance: Payor: [facility] [employer] PLAN MEDICARE ADVANTAGE / Plan: [facility] OPTIONS / Product Type: *No Product type* / Language: Speaks and understands Vietnamese as preferred language with no interpreter deaf required Allergies: is allergic to cefadroxil, methylprednisolone, [...] 9:45 AM EDT Office Visit Adult Medicine [address] [address] Ora Sweeney MD [address] [place] [address] 06/04/2024 10:30 AM EDT Consult Bariatric Surgery [facility] [address] [phone] Lita Verde PA [address] [address] 06/04/2024 11:45 AM EDT Office Visit Orthopedic Surgery [facility] [address] [address] Luis Armando Eller MD [address] [address] 06/05/2024 9:45 AM EDT Office Visit Orthopedic [facility] [address] [phone] Duke Dunn, DPM [address] [address] 06/06/2024 2:30 PM EDT Office Visit Obstetrics and Gynecology [address] [address] Stacie Martinez, [facility] 444 [place] [address] 06/30/2024 10:30 AM EDT Office Visit Orthopedic Surgery [facility] [address] [phone] Luis Armando Eller MD [address] [address] 07/02/2024 9:30 AM EDT Office Visit Orthopedic Surgery [facility] [address] [phone] Lorie Moore NP [address] [place] [address] 07/09/2024 9:30 AM EDT Office Visit Endocrinology [facility] [address] [place] [address] Jayesh Pineda MD [address] [place] [address] 09/22/2024 8:45 AM EDT Office Visit Pulmonolgy - [place] 175 [facility] 200 [place] [address] Pretty Le MD 175 [facility] 200 [place] [address] documented as of this encounter Visit Diagnoses Not on filedocumented in this encounter Care Teams Riprap Worker Relationship Specialty Start Date End Date Ora Sweeney MD 4 [place] [address] PCP - General Internal Medicine 01/09/24 documented as of this encounter
--- OUTSIDE RECORDS SUMMARY | 2024-04-23 13:51 | XMS_ITS | Encounter Summary ---
Author Organization [facility] Address [address] [place] [address] Care Team Providers Care Banquet Prep Cook Name Role Phone Teressa Solis DO Primary Care Pro vider Unavailable Mina Pretty DO Primary Care Provider Shweta Cronin MD Primary Care Provider Ora Diaz MD Primary Care Prov ider Jl Mendez MD Unavailable [phone] Jannette Boudreaux MD Unavailable [phone] Tenisha Mendieta PA-C Unavailable [phone] Julio Monk PA-C Unavailable Luis Armando Eller MD Unavailable [phone] Jayesh Pineda MD Unavailable Kelsi Tejada MD Unavailable Unavailable Pretty Le MD Unavailable Vesta Michael PA-C Unavailable [facility] Unavailable Reason for Visit * Reason Comments E-prescribe Rx Request Encounter Details Date Type Department Care Team Description 08/17/2018 Refill Adult Medicine [address] [id number] Teressa Solis DO E-prescribe Rx Request Social [...] THE PATIENT'S LAST APPOINTMENT IN ADULT MEDICINE? [id number] WHEN WAS THE LAST TIME THE PATIENT SAW THEIR PCP? Same as above Does patient have an upcoming appointment? Yes [id number] (THE MEDICATION REQUESTED IS ON THE MED [...] N/A Patients current insurance carrier is: Payor: [employer] FFS / Plan: [employer] / Product Type: MEDICAID RISK documented in this encounter Plan of Treatment Not on file documented as of this encounter Visit Diagnoses Not on filedocumented in this encounter Care Teams Banquet Prep Cook Relationship Specialty Start Date End Date Teressa Solis DO PCP - General Internal Medicine 12/18/13 09/15/20 Mina Pretty DO PCP - General Internal Medicine 09/16/20 Shweta Boucher MD PCP - General Internal Medicine 01/12/21 10/10/21 Ora Ronquillo MD 444 [place] [address] PCP - General Internal Medicine 10/11/21 Jl Mendez MD [address] [place] [address] Dr Mont[address] [place] [address] Specialist Cardiovascular Disease 10/13/21 Jannette Boudreaux MD [address] [address] Surgeon Neurosurgery 04/07/22 Tenisha Mendieta PA-C 175 [facility] 300 [place] [address] Specialist Neurosurgery 04/07/22 Julio Monk PA-C 175 [facility] 300 [place] [address] Specialist Neurosurgery 04/07/22 Luis Armando Eller MD 175 [facility] 250 [place] [address] Specialist ORTHOPEDIC SURGERY 10/01/23 Jayesh Pineda MD 305 [place] [address] Specialist Endocrinology 10/01/23 Kelsi Tejada MD 305 [place] [address] Specialist Allergy & Immunology 10/01/23 Pretty Le MD 175 [facility] 200 [place] [address] Specialist Pulmonology 10/01/23 Vesta Michael PA-C [address] [address] Specialist Vascular Surgery 10/01/23 [facility] 46 [place] [address] Specialist Optometry 10/01/23 documented as of this encounter
--- OUTSIDE RECORDS SUMMARY | 2024-04-23 13:51 | XMS_ITS | Encounter Summary ---
Author Organization [facility] Address [address] [place] [address] Care Team Providers Care Cuff Slitter Name Role Phone Ora Ronquillo MD Primary Care Prov ider Jl Mendez MD Unavailable [phone] Jannette Boudreaux MD Unavailable [phone] Tenisha Mendieta PA-C Unavailable Julio Monk PA-C Unavailable Luis Armando Eller MD Unavailable [phone] Jayesh Pineda MD Unavailable Kelsi Tejada MD Unavailable Unavailable Pretty Le MD Unavailable Vesta Michael PA-C Unavailable [phone] [facility] Unavailable [phone] Encounter Details Date Type Department Care Team Description 11/25/2022 [facility] Adult Medicine [address] [address] Jayesh Pineda MD [address] [place] [id number] Social History Tobacco Use Types Packs/Day Years Used Date Smoking Tobacco: Never Smokeless Tobacco: Never Alcohol Use Standard Drinks/Week Comments No 0 (1 standard drink = 0.6 oz pur e alcohol) Education Answer Date Recorded What is the highest level of school you have completed or the highest degree you have received? 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 No / Unsure 11/27/2022 10:11 AM EDT documented as of this encounter Miscellaneous Notes * Telephone Encounter - Julian Recinos - 11/27/2022 10:57 AM EDT Jordyn 11/06/22 Ov 02/06/23 Lab Results Component Value Date HGBA1C 7.0 10/30/2022 MALBUR < 5.0 05/10/2022 MALBCR < 13.8 05/10/2022 CHOL 155 05/10/2022 LDL 83 05/10/2022 HDL 51 05/10/2022 TRIG 109 05/10/2022 GLU 129 10/30/2022 CREAT 0.78 10/30/2022 documented in this encounter Plan of Treatment Not on file documented as of this encounter Visit Diagnoses Not on filedocumented in this encounter Care Teams Cuff Slitter Relationship Specialty Start Date End Date Ora Ronquillo MD [address] [place] [address] PCP - General Internal Medicine 10/11/21 Jl Mendez MD [address] [place] [address] Dr Mont[address] [place] [address] Specialist Cardiovascular Disease 10/13/21 Jannette Boudreaux MD [address] [address] Surgeon Neurosurgery 04/07/22 Tenisha Mendieta PA-C [address] [address] Specialist Neurosurgery 04/07/22 Julio Monk PA-C 175 [facility] 300 [place] [address] Specialist Neurosurgery 04/07/22 Luis Armando Eller MD 175 [facility] 250 [place] [address] Specialist ORTHOPEDIC SURGERY 10/01/23 Jayesh Pineda MD 305 [place] [address] Specialist Endocrinology 10/01/23 Kelsi Tejada MD 305 [place] [address] Specialist Allergy & Immunology 10/01/23 Pretty Le MD 175 [facility] 200 [place] [address] Specialist Pulmonology 10/01/23 Vesta Michael PA-C 300 [facility] 210 [place] [address] Specialist Vascular Surgery 10/01/23 [facility] 46 [place] [address] Specialist Optometry 10/01/23 documented as of this encounter
--- OUTSIDE RECORDS SUMMARY | 2024-04-23 13:51 | XMS_ITS | Encounter Summary ---
Author Organization [facility] Address [address] [place] [address] Care Team Providers Care Welfare Officer Name Role Phone Teressa Solis DO Primary Care Pro vider Unavailable Mina Pretty DO Primary Care Provider Ailyn Shweta Pretty MD Primary Care Provider Ora Diaz MD Primary Care Prov ider Jl Mendez MD Unavailable [phone] Jannette Boudreaux MD Unavailable [phone] Tenisha Mendieta PA-C Unavailable Julio Monk PA-C Unavailable Luis Armando Eller MD Unavailable [phone] Jayesh Pineda MD Unavailable Kelsi Tejada MD Unavailable Unavailable Pretty Le MD Unavailable Vesta Michael PA-C Unavailable [phone] [facility] Unavailable Encounter Details Date Type Department Care Team Description 05/11/2020 Insulation Manager Report Medical Records 4 [place] [address] Meg Mc Social History Tobacco Use Types [...] on filedocumented in this encounter Care Teams Welfare Officer Relationship Specialty Start Date End Date Teressa Solis DO PCP - General Internal Medicine 12/18/13 09/15/20 Mina Pretty DO PCP - General Internal Medicine 09/16/20 Shweta Boucher MD PCP - General Internal Medicine 01/12/21 10/10/21 Ora Ronquillo MD [address] [place] [address] PCP - General Internal Medicine 10/11/21 Jl Mendez MD [address] [place] [address] Dr Mont[address] [place] [address] Specialist Cardiovascular Disease 10/13/21 Jannette Boudreaux MD [address] [address] Surgeon Neurosurgery 04/07/22 Tenisha Mendieta PA-C [address] [address] Specialist Neurosurgery 04/07/22 Julio Monk PA-C [address] [address] Specialist Neurosurgery 04/07/22 Luis Armando Eller MD [address] [address] Specialist ORTHOPEDIC SURGERY 10/01/23 Jayesh Pineda MD [address] [place] [address] Specialist Endocrinology 10/01/23 Kelsi Tejada MD 305 [place] [address] Specialist Allergy & Immunology 10/01/23 Pretty Le MD 175 [facility] [address] [place] [address] Specialist Pulmonology 10/01/23 Vesta Michael PA-C 300 [facility] 210 [place] [address] Specialist Vascular Surgery 10/01/23 [facility] 46 [place], [place] [phone] Specialist Optometry 10/01/23 documented as of this encounter
--- OUTSIDE RECORDS SUMMARY | 2024-04-23 13:51 | XMS_ITS | Encounter Summary ---
Author Organization [facility] Address [address] [place] [address] Care Team Providers Care Eligibility Worker Name Role Phone Ora Sweeney MD Primary Care Prov ider Reason for Visit * Reason Comments Blood Sugar Problem Encounter Details Date Type Department Care Team ([facility] st Contact Info) Description 04/11/2024 9:45 AM EST Office Visit Endocrinology - [address] [phone] Jayesh Pineda MD 6 [place] [address] Type 2 diabetes mellitus with other specified complication, without long-term current use of insulin (CMS/HCC) (Primary Dx); Hyperparathyroidism (CMS/[facility]); Hypothyroidism, unspecified type Social History Tobacco Use [...] for your loved ones. For example, children's tutor or elderly care for an older adult? [...] cancer Mother 31.00 Coronary artery disease Father MS age 68, HTN, Diabetes, cataract, glaucoma Ovarian [...] tablet Take 1 tablet by mouth daily. mylvkzfjmrb-jpbxifbewxon-nzsewqwoqw (Trelegy Ellipta) 100-62.5-25 mcg inhaler Inhale 1 [...] UNABLE TO FIND Inhale into the lungs. [facility]-supplies only venlafaxine XR (EFFEXOR-XR) 37.5 [...] TSH No results found for: FT4 IMAGING: @BANNER@ IMPRESSION: 1. Type 2 diabetes mellitus with other specified complication, without long-term current use of insulin ([facility]) 2. Hyperparathyroidism ([facility]) 3. Hypothyroidism, unspecified type PLAN: DM type [...] 9:45 AM EDT Office Visit Adult Medicine [address] [phone] Ora Sweeney MD [address] [place] [address] 06/04/2024 10:30 AM EDT Consult Bariatric Surgery - [place] [address] [phone] Lita Verde PA [address] [address] 06/04/2024 11:45 AM EDT Office Visit Orthopedic Surgery [facility] [address] [phone] Luis Armando Eller MD [address] [address] 06/05/2024 9:45 AM EDT Office Visit Orthopedic Surgery [facility] [address] [phone] Duke Dunn DPJohan [address] [address] 06/06/2024 2:30 PM EDT Office Visit Obstetrics and Gynecology - [address] [address] Stacie Martinez, [facility] [address] [place] [address] 06/30/2024 10:30 AM EDT Office Visit Orthopedic Surgery [facility] [address] [phone] Luis Armando Eller MD [address] [address] 07/02/2024 9:30 AM EDT Office Visit Orthopedic Surgery - [place] [address] [phone] Lorie Moore NP [address] [address] 07/09/2024 9:30 AM EDT Office Visit Endocrinology - [address] [place] [address] Jayesh Pineda MD [address] [place] [address] 09/22/2024 8:45 AM EDT Office Visit Pulmonolgy - [place] [address] [address] Pretty Le MD [address] [address] documented as of this encounter Visit Diagnoses Diagnosis Type 2 diabetes mellitus with other specified complication, without long-term current use of insulin (CMS/HCC)- Primary Hyperparathyroidism (CMS/HCC) Hyperparathyroidism, unspecified Hypothyroidism, unspecified type documented in this encounter Care Teams Eligibility Worker Relationship Specialty Start Date End Date Ora Sweeney MD 4 [place] [address] PCP - General Internal Medicine 01/09/24 documented as of this encounter
--- OUTSIDE RECORDS SUMMARY | 2024-04-23 13:51 | XMS_ITS | Encounter Summary ---
Author Organization [facility] Address [address] [place] [address] Care Team Providers Care Health Outcomes Liaison Name Role Phone Teressa Solis DO Primary Care Pro vider Unavailable Mina Pretty DO Primary Care Provider Shweta Cronin MD Primary Care Provider Ora Diaz MD Primary Care Prov ider Jl Mendez MD Unavailable Jannette Boudreaux MD Unavailable [phone] Tenisha Mendieta PA-C Unavailable [phone] Julio Monk PA-C Unavailable Luis Armando Eller MD Unavailable [phone] Jayesh Pineda MD Unavailable Kelsi Tejada MD Unavailable Unavailable Pretty Le MD Unavailable Vesta Michael PA-C Unavailable [phone] [facility] Unavailable Reason for Visit * Reason Onset Date Comments Medication 02/20/2014 RE-FAX Encounter Details Date Type Department Care Team Description 02/20/2014 Telephone Adult Medicine [address] [address] Teressa Solis DO Medication (RE-FAX) [...] on filedocumented in this encounter Care Teams Health Outcomes Liaison Relationship Specialty Start Date End Date Teressa Solis DO PCP - General Internal Medicine 12/18/13 09/15/20 Mina Pretty DO PCP - General Internal Medicine 09/16/20 1 Shweta Tellez MD PCP - General Internal Medicine 01/12/21 10/10/21 Hiwot Couch, Oar Kelly MD [address] [place] [address] PCP - General Internal Medicine 10/11/21 Jl Mendez MD [address] [place] [address] Dr Mont[address] [place] [address] Specialist Cardiovascular Disease 10/13/21 Jannette Boudreaux MD [address] [address] Surgeon Neurosurgery 04/07/22 Tenisha Mendieta PA-C [address] [address] Specialist Neurosurgery 04/07/22 Julio Monk PA-C [address] [address] Specialist Neurosurgery 04/07/22 Luis Armando Eller MD [address] [address] Specialist ORTHOPEDIC SURGERY 10/01/23 Jayesh Pineda MD [address] [place] [address] Specialist Endocrinology 10/01/23 Kelsi Tejada MD 305 [place] [address] Specialist Allergy & Immunology 10/01/23 Pretty Le MD 175 [facility] [address] [place] [address] Specialist Pulmonology 10/01/23 Vesta Michael PA-C 300 [facility] [address] [place] [address] Specialist Vascular Surgery 10/01/23 [facility] 46 [place] [address] Specialist Optometry 10/01/23 documented as of this encounter
--- OUTSIDE RECORDS SUMMARY | 2024-04-23 13:51 | XMS_ITS | Encounter Summary ---
Author Organization [facility] Address [address] [place] [address] Care Team Providers Care Metal Fabricating Supervisor Name Role Phone Ora Sweeney MD Primary Care Prov ider Reason for Visit * Reason Comments Follow-up Encounter Details Date Type Department Care Team ([facility] st Contact Info) Description 03/26/2024 9:45 AM EST Office Visit Orthopedic Surgery - [facility] 160 175 [facility] [address] [place] [phone] Luis Armando Eller MD 175 [facility] 160 [place] [address] S/P left rotator cuff repair (Primary Dx) [...] Asthma- chronic obstructive pulmonary disease overlap syndrome ([facility]/HCC) (01/30/2022), Class 3 severe obesity due to excess calories with serious comorbidity and body mass index (BMI) of 40.0 to 44.9 in adult ([facility]/HCC) (07/15/2019), COVID-19, CTS (carpal tunnel syndrome), Depression, Depressive disorder, Diabetes mellitus ([facility]), Diabetes mellitus type 2, controlled, without complications ([facility]) (02/16/2021), Family history of colon [...] colon polyp: Tubular adenoma. ESOPHAGOGASTRODUODENOSCOPY 09/22/2021 PROCEDURE: IN EGD TRANSORAL BIOPSY SINGLE/MULTIPLE; COMMENT: EGD including biopsy normal EXCISION BENIGN SKIN LESION TRUNK / ARM / LEG PROCEDURE: IN EXCISION TUMOR SOFT TISSUE BACK/FLANK SUBQ <3CM; COMMENT: Lipomas removed HERNIA REPAIR PROCEDURE: HISTORICAL HERNIA REPAIR/ING KNEE ARTHROSCOPY Right PROCEDURE: IN ARTHROSCOPY KNEE DIAGNOSTIC W/WO SYNOVIAL BX SPX OTHER SURGICAL HISTORY PROCEDURE: IN BIOPSY THYROID PERCUTANEOUS CORE NEEDLE OTHER SURGICAL HISTORY PROCEDURE: CYSTOSCOPY/SURG, URETHRA/BLAD NECK; COMMENT: sling procedure for stress incontinence OTHER SURGICAL HISTORY Right 08/25/2015 PROCEDURE: IN EXCISION NAIL MATRIX PERMANENT REMOVAL; COMMENT: right rocaelux Dr. Rangel OTHER SURGICAL HISTORY PROCEDURE: HISTORY OTHER; COMMENT: Maxillofacial surgery ROTATOR CUFF REPAIR Left 12/06/2023 PROCEDURE: HISTORICAL ROTATOR CUFF REPAIR; COMMENT: Left shoulder arthroscopic rotator cuff repair.Subacromial decompression. Labral debridement. TONSILLECTOMY PROCEDURE: HISTORICAL TONSILLECTOMY; COMMENT: and adenoids UPPER GASTROINTESTINAL ENDOSCOPY 09/29/2019 PROCEDURE: IN UPPER GI ENDOSCOPY PERFORMED; COMMENT: Visually normal [...] 9:45 AM EDT Office Visit Adult Medicine [facility] 444 [place], [place] [phone] Ora Sweeney MD 444 [place], [place] 06/04/2024 10:30 AM EDT Consult Bariatric Surgery [facility] [address] [phone] Lita Verde PA [address] [address] 06/04/2024 11:45 AM EDT Office Visit Orthopedic Surgery [facility] [address] [phone] Luis Armando Eller MD [address] [address] 06/05/2024 9:45 AM EDT Office Visit Orthopedic Surgery [facility] 250 175 [facility] 250 [place] [phone] Duke Dunn DPJohan [address] [address] 06/06/2024 2:30 PM EDT Office Visit Obstetrics and Gynecology [address] [phone] Stacie Martinez, ALFONSO 444 [place], [place] 06/30/2024 10:30 AM EDT Office Visit Orthopedic Surgery [facility] [address] [phone] Luis Armando Eller MD 175 [facility] 160 [place] [address] 07/02/2024 9:30 AM EDT Office Visit Orthopedic Surgery - [facility] 250 175 [facility] 250 [place] [address] Lorie Moore NP 175 [facility] 250 [place] [address] 07/09/2024 9:30 AM EDT Office Visit Endocrinology [facility] 444 [place] [address] Jayesh Pineda MD 725 [place] [address] 09/22/2024 8:45 AM EDT Office Visit Pulmonolgy - [facility] 175 [facility] 200 [place] [address] Pretty Le MD 175 [facility] 200 [place] [address] documented as of this encounter Visit Diagnoses Diagnosis S/P left rotator cuff repair- Primary documented in this encounter Care Teams Metal Fabricating Supervisor Relationship Specialty Start Date End Date Ora Sweeney MD 4 [place] [address] PCP - General Internal Medicine 01/09/24 documented as of this encounter
--- OUTSIDE RECORDS SUMMARY | 2024-04-23 13:51 | XMS_ITS | Encounter Summary ---
Author Organization [facility] Address [address] [place] [address] Care Team Providers Care Wastewater Manager Name Role Phone Geno Cueva MD Primary Care Provider Unavailable Teressa Solis DO Primary Care Pro vider Unavailable Mina Pretty DO Primary Care Provider Ailyn Shweta Pretty MD Primary Care Provider Ora Diaz MD Primary Care Prov ider Jl Mendez MD Unavailable Jannette Boudreaux MD Unavailable [phone] Tenisha Mendieta PA-C Unavailable [phone] Julio Monk PA-C Unavailable Luis Armando Eller MD Unavailable [phone] Jayesh Pineda MD Unavailable Kelsi Tejada MD Unavailable Unavailable Pretty Le MD Unavailable Vesta Michael-Pina Unavailable [phone] [facility] Unavailable [phone] Encounter Details Date Type Department Care Team Description 04/23/2013 Practice Assistant Report Medical Records [address] [place] [address] Narinder Franco MD Social History Tobacco Use [...] on filedocumented in this encounter Care Teams Wastewater Manager Relationship Specialty Start Date End Date Geno Cueva MD PCP - General Internal Medicine 06/28/1212/17/13 Teressa Solis DO PCP - General Internal Medicine 12/18/13 09/15/20 Mina Pretyt DO PCP - General Internal Medicine 09/16/20 1 Shweta Tellez MD PCP - General Internal Medicine 01/12/21 10/10/21 Hiwot Couch, Ora Kelly MD [address] [place] [address] PCP - General Internal Medicine 10/11/21 Jl Mendez MD [address] [place] [address] Dr Montiel [address] [place] [address] Specialist Cardiovascular Disease 10/13/21 Jannette Boudreaux MD [address] [address] Surgeon Neurosurgery 04/07/22 Tenisha Mendieta PA-C [address] [address] Specialist Neurosurgery 04/07/22 Julio Monk PA-C [address] [address] Specialist Neurosurgery 04/07/22 Luis Armando Eller MD [address] [address] Specialist ORTHOPEDIC SURGERY 10/01/23 Jayesh Pineda MD [address] [place] [address] Specialist Endocrinology 10/01/23 Kelsi Tejada MD 305 [place] [address] Specialist Allergy & Immunology 10/01/23 Pretty Le MD 175 [facility] [address] [place] [address] Specialist Pulmonology 10/01/23 Vesta Michael PA-C 300 [facility] [address] [place] [address] Specialist Vascular Surgery 10/01/23 [facility] 46 [place] [address] Specialist Optometry 10/01/23 documented as of this encounter
--- OUTSIDE RECORDS SUMMARY | 2024-04-23 13:51 | XMS_ITS | Encounter Summary ---
Author Organization [facility] Address [address] [place] [address] Care Team Providers Care Small Parts Shaper Operator Name Role Phone Teressa Solis DO Primary Care Pro vider Unavailable Mina Pretty DO Primary Care Provider Shweta Cronin MD Primary Care Provider Ora Diaz MD Primary Care Prov ider Jl Mendez MD Unavailable Jannette Boudreaux MD Unavailable [phone] Tenisha Mendieta PA-C Unavailable Julio MonkC Unavailable [phone] Luis Armando Eller MD Unavailable [phone] Jayesh Pineda MD Unavailable Kelsi Tejada MD Unavailable Unavailable Pretty Le MD Unavailable Vesta Michael PA-C Unavailable [phone] [facility] Unavailable Encounter Details Date Type Department Care Team Description 06/22/2020 Refill Nephrology - [address] [address] Mukesh Hebert MD [address] [place] [address] [id number] Social History Tobacco Use Types Packs/Day Years Used Date Smoking Tobacco: Never Smokeless Tobacco: Never Alcohol Use Standard Drinks/Week Comments No 0 (1 standard drink = 0.6 oz pur e alcohol) Education Answer Date Recorded What is the highest level of school you have completed or the highest degree you have received? 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, FIREWORKS DISPLAY SPECIALIST, CHANDRAKANT) 06/14/2020 Sex Assigned at Date [...] on filedocumented in this encounter Care Teams Small Parts Shaper Operator Relationship Specialty Start Date End Date Teressa Solis DO PCP - General Internal Medicine 12/18/13 09/15/20 Mina Pretty DO PCP - General Internal Medicine 09/16/20 Shweta Boucher MD PCP - General Internal Medicine 01/12/21 10/10/21 Ora Ronquillo MD [address] [place] [address] PCP - General Internal Medicine 10/11/21 Jl Mendez MD [address] [place] [address] Dr Montiel [address] [place] [address] Specialist Cardiovascular Disease 10/13/21 Jannette Boudreaux MD [address] [address] Surgeon Neurosurgery 04/07/22 Tenisha Mendieta PA-C [address] [address] Specialist Neurosurgery 04/07/22 Julio Monk PA-C [address] [place] [address] Specialist Neurosurgery 04/07/22 Luis Armando Eller MD 175 [facility] 250 [place] [address] Specialist ORTHOPEDIC SURGERY 10/01/23 Jayesh Pineda MD 305 [place] [address] Specialist Endocrinology 10/01/23 Kelsi Tejada MD 305 [place] [address] Specialist Allergy & Immunology 10/01/23 Pretty Le MD 175 [facility] 200 [place] [phone] Specialist Pulmonology 10/01/23 Vesta Michael PA-C 300 [facility] 210 [place] [phone] Specialist Vascular Surgery 10/01/23 [facility] 46 [place] [address] Specialist Optometry 10/01/23 documented as of this encounter
--- OUTSIDE RECORDS SUMMARY | 2024-04-23 13:51 | XMS_ITS | Encounter Summary ---
Author Organization [facility] Address [address] [place] [address] Care Team Providers Care Telehealth Nurse Name Role Phone Shweta Tellez MD Primary Care Provider Ora Diaz MD Primary Care Prov ider Jl Mendez MD Unavailable [phone] Jannette Boudreaux MD Unavailable [phone] Tenisha Mendieta PA-C Unavailable Julio Monk PA-C Unavailable Luis Armando Eller MD Unavailable [phone] Jayesh Pineda MD Unavailable Kelsi Tejada MD Unavailable Unavailable Pretty Le MD Unavailable Vesta Michael PA-C Unavailable [phone] [facility] Unavailable Reason for Visit * Reason Comments E-prescribe Rx Request Encounter Details Date Type Department Care Team Description 04/07/2021 Refill Adult Medicine [address] [phone] Teressa Solis DO E-prescribe Rx Request Social [...] 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, [employer]LE [employer]UC[employer], CHANDRAKANT) 06/14/2020 Sex Assigned at Date Recorded Female 08/03/2020 10:16 PM EDT Job Start Date Occupation Industry Not on file Not on file Not on file COVID-19 Exposure Response Date Recorded In the last month, have you been in contact with someone who was confirmed or suspected to have Coronavirus / COVID-19? No / Unsure 03/31/2021 9:12 AM EST documented as of this encounter Miscellaneous Notes * Telephone Encounter - Lubna Thornton M.A. - 04/07/2021 4:22 PM EST Lab Results Component Value Date NA 141 02/15/2021 K 4.3 02/15/2021 CO2 29 02/15/2021 CL 105 02/15/2021 BUN 10 02/15/2021 CREAT 0.73 02/15/2021 GLU 155 03/03/2021 CA 10.5 03/03/2021 GFR > 60 02/15/2021 Last appt with augustin 03/03/21 * Telephone Encounter - Sofia Martinirez - 04/07/2021 2:18 PM EST Patient would like script to be: E-PRESCRIBED/FAXED TO PHARMACY WHEN WAS THE PATIENT'S LAST APPOINTMENT IN ADULT MEDICINE? 03/03/21 WHEN WAS THE LAST TIME THE PATIENT SAW THEIR PCP? Never seen pcp Does patient have an upcoming appointment? Yes 06/01/21 (THE MEDICATION REQUESTED IS ON THE MED [...] N/A Patients current insurance carrier is: Payor: [employer] / Plan: [email or web address] [place] / Product Type: MEDICAID RISK documented in this encounter Plan of Treatment Not on file documented as of this encounter Visit Diagnoses Not on filedocumented in this encounter Care Teams Telehealth Nurse Relationship Specialty Start Date End Date Shweta Tellez MD PCP - General Internal Medicine 01/12/21 10/10/21 Ora Ronquillo MD [address] [place] [address] PCP - General Internal Medicine 10/11/21 Jl Mendez MD [address] [place] [address] [place] [address] Specialist Cardiovascular Disease 10/13/21 Jannette Boudreaux MD [address] [address] Surgeon Neurosurgery 04/07/22 Tenisha Mendieta PA-C [address] [address] Specialist Neurosurgery 04/07/22 Julio Monk PA-C 175 [facility] [address] [place] [address] Specialist Neurosurgery 04/07/22 Luis Armando Eller MD [address] [address] Specialist ORTHOPEDIC SURGERY 10/01/23 Jayesh Pineda MD [address] [place] [address] Specialist Endocrinology 10/01/23 Kelsi Tejada MD 305 [place] [address] Specialist Allergy & Immunology 10/01/23 Pretty Le MD 175 [facility] [address] [place] [address] Specialist Pulmonology 10/01/23 Vesta Michael PA-C 300 [facility] 210 [place] [address] Specialist Vascular Surgery 10/01/23 [facility] 46 [place], [place] [address]89 Specialist Optometry 10/01/23 documented as of this encounter
--- OUTSIDE RECORDS SUMMARY | 2024-04-23 13:51 | XMS_ITS | Encounter Summary ---
Author Organization [facility] Address [address] [place] [address] Care Team Providers Care Area Development Consultant Name Role Phone Ora Ronquillo MD Primary Care Prov ider Jl Mendez MD Unavailable Jannette Boudreaux MD Unavailable [phone] Tenisha Mendieta PA-C Unavailable [phone] Julio MonkC Unavailable Luis Armando Eller MD Unavailable [phone] Jayesh Pineda MD Unavailable Kelsi Tejada MD Unavailable Unavailable Pretty Le MD Unavailable Vesta Michael PA-Pina Unavailable [phone] [facility] Unavailable [phone] Encounter Details Date Type Department Care Team Description 09/14/2022 Investigator Vice Report Medical Records 4 [place] [address] Jorge Belcher II Social History Tobacco Use Types Packs/Day Years Used Date Smoking Tobacco: Never Smokeless Tobacco: Never Alcohol Use Standard Drinks/Week Comments No 0 (1 standard drink = 0.6 oz pur e alcohol) Education Answer Date Recorded What is the highest level of school you have completed or the highest degree you have received? 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, AUTOMOBILE SERVICE STATION MECHANIC, CHANDRAKANT) 06/14/2020 Sex Assigned at Date Recorded [...] filedocumented in this encounter Care Teams Area Development Consultant Relationship Specialty Start Date End Date Ora Ronquillo MD [address] [place] [address] PCP - General Internal Medicine 10/11/21 Jl Mendez MD [address] [place] [address] Dr Mont[address] [place] [address] Specialist Cardiovascular Disease 10/13/21 Jannette Boudreaux MD 175 [facility] 300 [place] [address] Surgeon Neurosurgery 04/07/22 Tenisha Mendieta PA-C [address] [address] Specialist Neurosurgery 04/07/22 Julio Monk PA-C 175 [facility] 300 [place] [address] Specialist Neurosurgery 04/07/22 Luis Armando Eller MD [address] [address] Specialist ORTHOPEDIC SURGERY 10/01/23 Jayesh Pineda MD 305 [place] [address] Specialist Endocrinology 10/01/23 Kelsi Tejada MD 305 [place] [address] Specialist Allergy & Immunology 10/01/23 Pretty Le MD 175 [facility] 200 [place] [address] Specialist Pulmonology 10/01/23 Vesta Michael PA-C 300 [facility] 210 [place] [address] Specialist Vascular Surgery 10/01/23 [facility] 46 [place] [address] Specialist Optometry 10/01/23 documented as of this encounter
--- OUTSIDE RECORDS SUMMARY | 2024-04-23 13:51 | XMS_ITS | Encounter Summary ---
Author Organization [facility] Address [address] [place] [address] Care Team Providers Care Stakes Player Name Role Phone Ora Ronquillo MD Primary Care Prov ider Jl Mendez MD Unavailable [phone] Jannette Boudreaux MD Unavailable [phone] Tenisha MendietaC Unavailable Julio Monk-C Unavailable Luis Armando Eller MD Unavailable [phone] Jayesh Pineda MD Unavailable Kelsi Tejada MD Unavailable Unavailable Pretty Le MD Unavailable Vesta Michael PA-C Unavailable [phone] [facility] Unavailable [phone] Encounter Details Date Type Department Care Team Description 06/22/2023 [facility] Medical [facility] 175 [facility] [address] [place] [address] Danielle Soni APRN Social History [...] 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, CHILD AND FAMILY THERAPIST, CHANDRAKANT) 06/14/2020 Sex Assigned at Date Recorded Female 08/03/2020 10:16 PM EDT Job Start Date Occupation Industry Not on file Not on file Not on file documented as of this encounter Plan of Treatment Not on file documented as of this encounter Visit Diagnoses Not on filedocumented in this encounter Care Teams Stakes Player Relationship Specialty Start Date End Date Ora Ronquillo MD [address] [place] [address] PCP - General Internal Medicine 10/11/21 Jl Mendez MD [address] [place] [address] Dr Mont[address] [place] [address] Specialist Cardiovascular Disease 10/13/21 Jannette Boudreaux MD [address] [address] Surgeon Neurosurgery 04/07/22 Tenisha Mendieta PA-C [address] [address] Specialist Neurosurgery 04/07/22 Julio Monk PA-C [address] [address] Specialist Neurosurgery 04/07/22 Luis Armando Eller MD [address] [address] Specialist ORTHOPEDIC SURGERY 10/01/23 Jayesh Pineda MD 305 [place] [address] Specialist Endocrinology 10/01/23 Kelsi Tejada MD 305 [place] [address] Specialist Allergy & Immunology 10/01/23 Pretty Le MD 175 [facility] 200 [place] [address] Specialist Pulmonology 10/01/23 Vesta Michael PA-C 300 [facility] [address] [place] [address] Specialist Vascular Surgery 10/01/23 [facility] 46 [place] [address] Specialist Optometry 10/01/23 documented as of this encounter
--- OUTSIDE RECORDS SUMMARY | 2024-04-23 13:51 | XMS_ITS | Encounter Summary ---
Author Organization [facility] Address [address] [place] [address] Care Team Providers Care Binder Sorter Name Role Phone Teressa Solis DO Primary Care Pro vider Unavailable Mina Pretty DO Primary Care Provider Ailyn Shweta Pretty MD Primary Care Provider Ora Diaz MD Primary Care Prov ider Jl Mendez MD Unavailable Jannette Boudreaux MD Unavailable [phone] Tenisha Mendieta PA-C Unavailable Julio Monk PA-C Unavailable Luis Armando Eller MD Unavailable [phone] Jayesh Pineda MD Unavailable Kelsi Tejada MD Unavailable Unavailable Pretty Le MD Unavailable Vesta Michael PA-C Unavailable [facility] Unavailable Encounter Details Date Type Department Care Team Description 06/01/2020 Promotional Advertising Assistant Report Medical Records 4 [place] [address] Abstract, Provider Social History Tobacco Use Types [...] on filedocumented in this encounter Care Teams Binder Sorter Relationship Specialty Start Date End Date Teressa Solis DO PCP - General Internal Medicine 12/18/13 09/15/20 Mina Pretty DO PCP - General Internal Medicine 09/16/20 Shweta Boucher MD PCP - General Internal Medicine 01/12/21 10/10/21 Ora Ronquillo MD [address] [place] [address] PCP - General Internal Medicine 10/11/21 Jl Mendez MD [address] [place] [address] Dr Montiel [address] [place] [address] Specialist Cardiovascular Disease 10/13/21 Jannette Boudreaux MD [address] [address] Surgeon Neurosurgery 04/07/22 Tenisha Mendieta PA-C [address] [address] Specialist Neurosurgery 04/07/22 Julio Monk PA-C 175 [facility] [address] [place] [address] Specialist Neurosurgery 04/07/22 Luis Armando Eller MD [address] [address] Specialist ORTHOPEDIC SURGERY 10/01/23 Jayesh Pineda MD [address] [place] [address] Specialist Endocrinology 10/01/23 Kelsi Tejada MD 305 [place] [address] Specialist Allergy & Immunology 10/01/23 Pretty Le MD 175 [facility] [address] [place] [address] Specialist Pulmonology 10/01/23 Vesta Michael PA-C 300 [facility] 210 [place] [address] Specialist Vascular Surgery 10/01/23 [facility] 46 [place] [address] Specialist Optometry 10/01/23 documented as of this encounter
--- OUTSIDE RECORDS SUMMARY | 2024-04-23 13:51 | XMS_ITS | Encounter Summary ---
Author Organization [facility] Address [address] [place] [address] Care Team Providers Care Field Application Engineer Name Role Phone Teressa Solis DO Primary Care Pro vider Unavailable Mina Pretty DO Primary Care Provider Ailyn Shweta Pretty MD Primary Care Provider UnaOra Randall MD Primary Care Prov ider Jl Mendez MD Unavailable Jannette Boudreaux MD Unavailable [phone] Tenisha Mendieta PA-C Unavailable [phone] Julio Monk PA-C Unavailable [phone] Luis Armando Eller MD Unavailable [phone] Jayesh Pineda MD Unavailable Kelsi Tejada MD Unavailable Unavailable Pretty Le MD Unavailable Vesta Michael PA-C Unavailable [phone] [facility] Unavailable [phone] Encounter Details Date Type Department Care Team Description 10/07/2018 [facility] Adult [address] [address] Deborah Addison PA-C Social History [...] MG capsule [Deborah Addison PA-C] Preferred pharmacy: [facility] [id number] [place] [address] DUANE ONOFRE AT [facility] Comment: Medication renewals requested [...] filedocumented in this encounter Care Teams Field Application Engineer Relationship Specialty Start Date End Date Teressa Solis DO PCP - General Internal Medicine 12/18/13 09/15/20 Mina Pretty DO PCP - General Internal Medicine 09/16/20 Shweta Boucher MD PCP - General Internal Medicine 01/12/21 10/10/21 Ora Ronquillo MD 444 [place] [address] PCP - General Internal Medicine 10/11/21 Jl Mendez MD [address] [place] [address] Dr Montiel [address] [place] [address] Specialist Cardiovascular Disease 10/13/21 Jannette Boudreaux MD [address] [address] Surgeon Neurosurgery 04/07/22 Tenisha Mendieta PA-C [address] [address] Specialist Neurosurgery 04/07/22 Julio Monk PA-C [address] [address] Specialist Neurosurgery 04/07/22 Luis Armando Eller MD [address] [address] Specialist ORTHOPEDIC SURGERY 10/01/23 Jayesh Pineda MD 305 [place] [address] Specialist Endocrinology 10/01/23 Kelsi Tejada MD 305 [place] [address] Specialist Allergy & Immunology 10/01/23 Pretty Le MD 175 [facility] 200 [place] [address] Specialist Pulmonology 10/01/23 Vesta Michael PA-C 300 [facility] 210 [place] [address] Specialist Vascular Surgery 10/01/23 [facility] [address] [place] [address] Specialist Optometry 10/01/23 documented as of this encounter
--- OUTSIDE RECORDS SUMMARY | 2024-04-23 13:51 | XMS_ITS | Encounter Summary ---
Author Organization [facility] Address [address] [place] [address] Care Team Providers Care Manager Video Name Role Phone Teressa Solis DO Primary Care Pro vider Unavailable Mina Pretty DO Primary Care Provider Ailyn Shweta Pretty MD Primary Care Provider UnaOra Randall MD Primary Care Prov ider Jl Mendez MD Unavailable [phone] Jannette Boudreaux MD Unavailable [phone] Tenisha Mendieta PA-C Unavailable [phone] Julio Monk PA-C Unavailable [phone] Luis Armando Eller MD Unavailable [phone] Jayesh Pineda MD Unavailable Kelsi Tejada MD Unavailable Unavailable Pretty Le MD Unavailable Vesta Michael PA-C Unavailable [facility] Unavailable Reason for Referral * Non VLAD (Routine) - Closed Specialty Diagnoses / Procedures Referred By Janie castillo Referred To Contact Vascular Surgery Procedures REFERRAL TO VASCULAR SURGERY (IN NETWORK) Teressa Solis DO [address] [place] [address] Jeff Ogden MD 300 [facility] [address] [place] [address] Referral ID Status Reason Start Date Expiration Date Visits Re quested Visits Authorized [id number] Closed 11/18/2018 11/18/2019 1 1 Reason for Visit * Reason Onset Date Comments Transportation Sales Consultant Feedback 11/18/2018 Dr. Ogden Encounter Details Date Type Department Care Team Description 11/18/2018 Telephone Adult [address] [address] Teressa Solis DO Transportation Sales Consultant Feedback (Dr. Ogden) Social History Tobacco Use [...] today? Payor: [employer] FFS / Plan: [employer] / Product Type: MEDICAID RISK Effective [...] insurance must be obtained and registered in [facility] or their referral can not [...] this specialty: Patient saw Allyn Vidales at [facility] for the problem and was told [...] Is this visit:Initial Visit Address of Specialist: [address] [place] [address], [address] , [place] [address] Phone # of Specialist: [phone] Fax #: (if applicable): [phone] Does patient have an appointment scheduled?: NO Date of appointment- (including a retro-request): Is this appointment related to: Not MVA, WC or Surgery related documented in this encounter Plan of Treatment Not on file documented as of this encounter Visit Diagnoses Not on filedocumented in this encounter Care Teams Manager Video Relationship Specialty Start Date End Date Teressa Solis DO PCP - General Internal Medicine 12/18/13 09/15/20 Mina Pretty DO PCP - General Internal Medicine 09/16/20 Shweta Boucher MD PCP - General Internal Medicine 01/12/21 10/10/21 Ora Ronquillo MD [address] [place] [address] PCP - General Internal Medicine 10/11/21 Jl Mendez MD [address] [place] [address] Dr Mont[address] [place] [address] Specialist Cardiovascular Disease 10/13/21 Jannette Boudreaux MD [address] [address] Surgeon Neurosurgery 04/07/22 Tenisha Mendieta PA-C [address] [address] Specialist Neurosurgery 04/07/22 Julio Monk PA-C [address] [address] Specialist Neurosurgery 04/07/22 Luis Armando Eller MD [address] [address] Specialist ORTHOPEDIC SURGERY 10/01/23 Jayesh Pineda MD 305 [place] [address] Specialist Endocrinology 10/01/23 Kelsi Tejada MD 305 [place] [address] Specialist Allergy & Immunology 10/01/23 Pretty Le MD 175 [facility] 200 [place] [address] Specialist Pulmonology 10/01/23 Vesta Michael PA-C 300 [facility] 210 [place] [address] Specialist Vascular Surgery 10/01/23 [facility] 46 [place], [place] [address] Specialist Optometry 10/01/23 documented as of this encounter
--- OUTSIDE RECORDS SUMMARY | 2024-04-23 13:51 | XMS_ITS | Encounter Summary ---
Author Organization [facility] Address [address] [place] [address] Care Team Providers Care Cdl Bulk Driver Name Role Phone Teressa Solis DO Primary Care Pro vider Unavailable Mina Pretty DO Primary Care Provider Ailyn Shweta Pretty MD Primary Care Provider Ora Diaz MD Primary Care Prov ider Jl Mendez MD Unavailable Jannette Boudreaux MD Unavailable [phone] Tenisha Mendieta PA-C Unavailable [phone] Julio Monk PA-C Unavailable [phone] Luis Armando Eller MD Unavailable [phone] Jayesh Pineda MD Unavailable Kelsi Tejada MD Unavailable Unavailable Pretty Le MD Unavailable Vesta Michael PA-C Unavailable [phone] [facility] Unavailable Encounter Details Date Type Department Care Team Description 06/10/2020 Refill Gastroenterology [facility] 175 [facility] [address] [place] [address] Luis Armando Staton MD Social [...] Telephone Encounter - Marya Red M.A. - 06/10/2020 11:39 AM EDT Jordyn 01/09/2020 documented in this encounter Plan of Treatment Not on file documented as of this encounter Visit Diagnoses Not on filedocumented in this encounter Care Teams Cdl Bulk Driver Relationship Specialty Start Date End Date Teressa Solis DO PCP - General Internal Medicine 12/18/13 09/15/20 Mina Pretty DO PCP - General Internal Medicine 09/16/20 1 Shweta Tellez MD PCP - General Internal Medicine 01/12/21 10/10/21 Ora Ronquillo MD [address] [place] [address] PCP - General Internal Medicine 10/11/21 Jl Mendez MD [address] [place] [address] Dr Mont[address] [place] [address] Specialist Cardiovascular Disease 10/13/21 Jannette Boudreaux MD [address] [address] Surgeon Neurosurgery 04/07/22 Tenisha Mendieta PA-C [address] [address] Specialist Neurosurgery 04/07/22 Julio Monk PA-C [address] [address] Specialist Neurosurgery 04/07/22 Luis Armando Eller MD 175 [facility] 250 [place] [address] Specialist ORTHOPEDIC SURGERY 10/01/23 Jayesh Pineda MD 305 [place] [address] Specialist Endocrinology 10/01/23 Kelsi Tejada MD 305 [place] [address] Specialist Allergy & Immunology 10/01/23 Pretty Le MD 175 [facility] [address] [place] [address] Specialist Pulmonology 10/01/23 Vesta Michael PA-C 300 [facility] 210 [place] [address] Specialist Vascular Surgery 10/01/23 [facility] 46 [place] [address] Specialist Optometry 10/01/23 documented as of this encounter
--- OUTSIDE RECORDS SUMMARY | 2024-04-23 13:51 | XMS_ITS | Encounter Summary ---
Author Organization [facility] Address [address] [place] [address] Care Team Providers Care Dental Technology Advisor Name Role Phone Ora Sweeney MD Primary Care Prov ider Reason for Visit * Consultation (Elective) - Authorized Specialty Diagnoses / Procedures Referred By Janie t Referred To Contact Occupational Therapy Diagnoses S/P left rotator cuff repair Luis Armando Eller MD 175 [facility] 160 [place] [address] Phone: tel: fax: [facility] Occupational Therapy [address] [address] Phone: tel: fax: Referral ID Status Reason Start Date Expiration Date Visits Requested Visits Authorized [id number] Authorized Specialty Services Required 01/08/2025 21 21 Encounter Details Date Type Department Care Team (Late st Contact Info) Description 03/27/2024 10:00 AM EST [facility] [address] [address] Chema Martins, OT Rotator cuff [...] your loved ones. For example, child care worker or elderly care for an older [...] from the original note were not included. [facility] - Outpatient OCCUPATIONAL THERAPY DISCHARGE EVALUATION Date: 03/27/2024 Visit Number: [id number] Patient Name: Ana Luisa House : 1960 Age: 63 y.o. Gender: female Diagnosis: ICD-10-CM ICD-9-CM 1. Rotator cuff tear arthropathy of left shoulder M75.102 716.81 M12.812 Date of Onset: 12/06/2023 Referring Provider: Luis Armando Eller MD Insurance: Payor: [employer] / Plan: [employer] [facility] OPTIONS / Product Type: *No Product type* / Language: Speaks and understands Armenian as preferred language with no mechanical project engineer required has a past medical history of [...] Diabetes mellitus type 2, controlled, without complications ([facility]/HCC) (02/16/2021), Family history of colon cancer, Fatty liver, Gastroesophageal reflux disease without esophagitis (08/30/2015), HLD (hyperlipidemia) (11/21/2021), Hypertension, Hypothyroid, Migraines, Mild concentric left ventricular hypertrophy (08/23/2021), Morbid obesity with BMI of 40.0-44.9, adult (CMS/HCC), Multiple thyroid nodules, Nonalcoholic fatty liver disease (04/12/2015), Obesitywith alveolar hypoventilation ([facility]/HCC), VIRGIE on CPAP, Osteoarthritis, Overactive bladder, Pain and swelling of left upper extremity (11/21/2021), Pre-diabetes (09/25/2017), Seasonal allergies (08/18/2013), Shingles, Sleep apnea, Stress incontinence, and Vitamin D deficiency (04/17/2019). 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 [address] Dept: [phone] Dept PATIENT NAME: Ana Luisa House : [...] 9:45 AM EDT Office Visit Adult Medicine [address] [phone] Ora Sweeney MD [address] [place] [address] 06/04/2024 10:30 AM EDT Consult Bariatric Surgery [facility] [address] [address] Lita Verde PA [address] [facility] 120 [place], [place] [address] 06/04/2024 11:45 AM EDT Office Visit Orthopedic Surgery [facility] [address] [address] Luis Armando Eller MD [address] [address] 06/05/2024 9:45 AM EDT Office Visit Orthopedic Surgery [facility] [address] [address] Duke Dunn, DPM [address] [address] 06/06/2024 2:30 PM EDT Office Visit Obstetrics and Gynecology - [address] [phone] Stacie Martinez, [facility] [address] [place] [address] 06/30/2024 10:30 AM EDT Office Visit Orthopedic Surgery [facility] [address] [address] Luis Armando Eller MD [address] [address] 07/02/2024 9:30 AM EDT Office Visit Orthopedic Surgery [facility] [address] [phone] Lorie Moore NP [address] [address] 07/09/2024 9:30 AM EDT Office Visit Endocrinology - [address] [phone] Jayesh Pineda MD [address] [place] [address] 09/22/2024 8:45 AM EDT Office Visit Pulmonolgy - [place] [address] [place] [address] Pretty Le MD 175 [facility] 200 [place] [address] documented as of this encounter Visit Diagnoses Diagnosis Rotator cuff tear arthropathy of left shoulder- Primary documented in this encounter Care Teams Dental Technology Advisor Relationship Specialty Start Date End Date Ora Sweeney MD [address] [place] [address] PCP - General Internal Medicine 01/09/24 documented as of this encounter
--- OUTSIDE RECORDS SUMMARY | 2024-04-23 13:52 | XMS_ITS | Encounter Summary ---
Author Organization [facility] Address [address] [place] [address] Care Team Providers Care Billing Auditor Name Role Phone Teressa Solis DO Primary Care Pro vider Unavailable Mina Pretty DO Primary Care Provider Shweta Cronin MD Primary Care Provider Ora Diaz MD Primary Care Prov ider Jl Mendez MD Unavailable [phone] Jannette Boudreaux MD Unavailable [phone] Tenisha Mendieta PA-C Unavailable [phone] Julio Monk PA-C Unavailable [phone] Luis Armando Eller MD Unavailable [phone] Jayesh Pineda MD Unavailable Kelsi Tejada MD Unavailable Unavailable Pretty Le MD Unavailable Vesta Michael PA-C Unavailable [phone] [facility] Unavailable [phone] Encounter Details Date Type Department Care Team Description 01/21/2014 Hair Colorist Report Medical Records [address] [place] [address] Narinder Franco MD Social History Tobacco Use [...] filedocumented in this encounter Care Teams Billing Auditor Relationship Specialty Start Date End Date Teressa Solis DO PCP - General Internal Medicine 12/18/13 09/15/20 Mina Pretty DO PCP - General Internal Medicine 09/16/20 Shweta Boucher MD PCP - General Internal Medicine 01/12/21 10/10/21 Ora Ronquillo MD [address] [place] [address] PCP - General Internal Medicine 10/11/21 Jl Mendez MD [address] [place] [address] Specialist Cardiovascular Disease 10/13/21 Jannette Boudreaux MD [address] [address] Surgeon Neurosurgery 04/07/22 Tenisha Mendieta PA-C [address] [address] Specialist Neurosurgery 04/07/22 Julio Monk PA-C [address] [address] Specialist Neurosurgery 04/07/22 Luis Armando Eller MD [address] [address] Specialist ORTHOPEDIC SURGERY 10/01/23 Jayesh Pineda MD 305 [place] [address] Specialist Endocrinology 10/01/23 Kelsi Tejada MD 305 [place] [address] Specialist Allergy & Immunology 10/01/23 Pretty Le MD 175 [facility] [address] [place] [address] Specialist Pulmonology 10/01/23 Vesta Michael PA-C 300 [facility] 210 [place] [address] Specialist Vascular Surgery 10/01/23 [facility] 46 [place] [address] Specialist Optometry 10/01/23 documented as of this encounter
--- OUTSIDE RECORDS SUMMARY | 2024-04-23 13:52 | XMS_ITS | Encounter Summary ---
Author Organization [facility] Address [address] [place] [address] Care Team Providers Care Research Compliance Specialist Name Role Phone Ora Ronquillo MD Primary Care Prov ider Jl Mendez MD Unavailable Jannette Boudreaux MD Unavailable [phone] Tenisha Mendieta PA-C Unavailable Julio Monk PA-C Unavailable Luis Armando Eller MD Unavailable [phone] Jayesh Pineda MD Unavailable Kelsi Tejada MD Unavailable Unavailable Pretty Le MD Unavailable Vesta Michael PA-C Unavailable [facility] Unavailable Encounter Details Date Type Department Care Team Description 08/07/2023 Pt. Non Urgent Medical Question Adult Medicine [address] [address] Ora Ronquillo MD [address] [place] [address] [id number] Social History Tobacco Use Types Packs/Day Years Used Date Smoking Tobacco: Never Smokeless Tobacco: Never Alcohol Use Standard Drinks/Week Comments No 0 (1 standard drink = 0.6 oz pur e alcohol) Education Answer Date Recorded What is the highest level of school you have completed or the highest degree you have received? 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, MARKETING DEVELOPMENT MANAGER, CHANDRAKANT) 06/14/2020 Sex Assigned at Date Recorded Female 08/03/2020 10:16 PM EDT Job Start Date Occupation Industry Not on file Not on file Not on file documented as of this encounter Plan of Treatment Not on file documented as of this encounter Visit Diagnoses Not on filedocumented in this encounter Care Teams Research Compliance Specialist Relationship Specialty Start Date End Date Ora Ronquillo MD [address] [place] [address] PCP - General Internal Medicine 10/11/21 Jl Mendez MD [address] [place] [address] Dr Mont[address] [place] [address] Specialist Cardiovascular Disease 10/13/21 Jannette Boudreaux MD [address] [address] Surgeon Neurosurgery 04/07/22 Tenisha Mendieta PA-C [address] [address] Specialist Neurosurgery 04/07/22 Julio Monk PA-C 175 [facility] 300 [place] [address] Specialist Neurosurgery 04/07/22 Luis Armando Eller MD 175 [facility] 250 [place] [address] Specialist ORTHOPEDIC SURGERY 10/01/23 Jayesh Pineda MD 305 [place] [address] Specialist Endocrinology 10/01/23 Kelsi Tejada MD 305 [place] [address] Specialist Allergy & Immunology 10/01/23 Pretty Le MD 175 [facility] 200 [place] [address] Specialist Pulmonology 10/01/23 Vesta Michael PA-C 300 [facility] [address] [place] [address] Specialist Vascular Surgery 10/01/23 [facility] [address] [place] [address] Specialist Optometry 10/01/23 documented as of this encounter
--- OUTSIDE RECORDS SUMMARY | 2024-04-23 13:52 | XMS_ITS | Encounter Summary ---
Author Organization [facility] Address [address] [place] [address] Care Team Providers Care Finance Effectiveness Manager Name Role Phone Ora Ronquillo MD Primary Care Prov ider Jl Mendez MD Unavailable Jannette Boudreaux MD Unavailable [phone] Tenisha MendietaC Unavailable Julio Monk-C Unavailable [phone] Luis Armando Eller MD Unavailable [phone] Jayesh Pineda MD Unavailable Kelsi Tejada MD Unavailable Unavailable Pretty Le MD Unavailable Vesta Michael PA-C Unavailable [facility] Unavailable Encounter Details Date Type Department Care Team Description 12/06/2023 SCAN [facility] 175 [facility] [address] [place] [address] Luis Armando Eller MD 175 [facility] [address] [place], [place] [id number] Social History Tobacco Use Types Packs/Day Years Used Date Smoking Tobacco: Never Smokeless Tobacco: Never Alcohol Use Standard Drinks/Week Comments No 0 (1 standard drink = 0.6 oz pur e alcohol) Education Answer Date Recorded What is the highest level of school you have completed or the highest degree you have received? 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, WRECKER DRIVER, CHANDRAKANT) 06/14/2020 Sex Assigned at Date Recorded Female 08/03/2020 10:16 PM EDT Job Start Date Occupation Industry Not on file Not on file Not on file documented as of this encounter Plan of Treatment Not on file documented as of this encounter Visit Diagnoses Not on filedocumented in this encounter Care Teams Finance Effectiveness Manager Relationship Specialty Start Date End Date Ora Ronquillo MD [address] [place] [address] PCP - General Internal Medicine 10/11/21 lJ Mendez MD [address] [place] [address] Dr Mont[address] [place] [address] Specialist Cardiovascular Disease 10/13/21 Jannette Boudreaux MD [address] [place] [address] [address] Surgeon Neurosurgery 04/07/22 Tenisha Mendieta PA-C [address] [address] Specialist Neurosurgery 04/07/22 Julio Monk PA-C [address] [address] Specialist Neurosurgery 04/07/22 Luis Armando Eller MD [address] [address] Specialist ORTHOPEDIC SURGERY 10/01/23 Jayesh Pineda MD 305 [place] [address] Specialist Endocrinology 10/01/23 Kelsi Tejada MD 305 [place] [address] Specialist Allergy & Immunology 10/01/23 Pretty Le MD 175 [facility] 200 [place] [address] Specialist Pulmonology 10/01/23 Vesta Michael PA-C 300 [facility] 210 [place] [address] Specialist Vascular Surgery 10/01/23 [facility] 46 [place] [address] Specialist Optometry 10/01/23 documented as of this encounter
--- OUTSIDE RECORDS SUMMARY | 2024-04-23 13:52 | XMS_ITS | Encounter Summary ---
Author Organization [facility] [place] [facility] Address [address] [place] [address] Care Team Providers Care Dyer Helper Name Role Phone Ora Ronquillo MD Primary Care Prov ider Jl Mendez MD Unavailable [phone] Jannette Boudreaux MD Unavailable [phone] Tenisha Mendieta-C Unavailable Julio Monk PA-C Unavailable Luis Armando Eller MD Unavailable [phone] Jayesh Pineda MD Unavailable Kelsi Tejada MD Unavailable Unavailable Pretty Le MD Unavailable Vesta Michael PA-C Unavailable [facility] Unavailable Encounter Details Date Type Department Care Team Description 10/15/2023 SCAN [facility] Medical [facility] 175 [facility] [address] [place] [address] Lorie Moore, DONN 1515 [facility] [place] [address] Social History Tobacco Use Types Packs/Day Years Used Date Smoking Tobacco: Never Smokeless Tobacco: Never Alcohol Use Standard Drinks/Week Comments No 0 (1 standard drink = 0.6 oz pur e alcohol) Education Answer Date Recorded What is the highest level of school you have completed or the highest degree you have received? 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, INSPECTOR BALANCE BRIDGE, CHANDRAKANT) 06/14/2020 Sex Assigned at Date Recorded Female 08/03/2020 10:16 PM EDT Job Start Date Occupation Industry Not on file Not on file Not on file documented as of this encounter Plan of Treatment Not on file documented as of this encounter Visit Diagnoses Not on filedocumented in this encounter Care Teams Dyer Helper Relationship Specialty Start Date End Date Ora Ronquillo MD 444 [place] [address] PCP - General Internal Medicine 10/11/21 Jl Mendez MD [address] [place] [address] Dr Montiel [address] [place] [address] Specialist Cardiovascular Disease 10/13/21 Jannette Boudreaux MD [address] [address] Surgeon Neurosurgery 04/07/22 Tenisha Mendieta PA-C [address] [address] Specialist Neurosurgery 04/07/22 Julio Monk PA-C 175 [facility] 300 [place] [address] Specialist Neurosurgery 04/07/22 Luis Armando Eller MD [address] [address] Specialist ORTHOPEDIC SURGERY 10/01/23 Jayesh Pineda MD 305 [place] [address] Specialist Endocrinology 10/01/23 Kelsi Tejada MD 305 [place] [address] Specialist Allergy & Immunology 10/01/23 Pretty Le MD 175 [facility] 200 [place] [address] Specialist Pulmonology 10/01/23 Vesta Michael PA-C 300 [facility] 210 [place] [address] Specialist Vascular Surgery 10/01/23 [facility] 46 [place] [address] Specialist Optometry 10/01/23 documented as of this encounter
--- OUTSIDE RECORDS SUMMARY | 2024-04-23 13:52 | XMS_ITS | Encounter Summary ---
Author Organization [facility] Address [address] [place] [address] Care Team Providers Care Rfid Engineer Name Role Phone Ora Ronquillo MD Primary Care Prov ider Jl Mendez MD Unavailable [phone] Jannette Boudreaux MD Unavailable [phone] Tenisha Mendieta PA-C Unavailable Julio Monk PA-C Unavailable [phone] Luis Armando Eller MD Unavailable [phone] Jayesh Pineda MD Unavailable Kelsi Tejada MD Unavailable Unavailable Pretty Le MD Unavailable Vesta Michael PA-C Unavailable [phone] [facility] Unavailable [phone] Reason for Visit * Reason Onset Date Comments Note, Other 03/23/2022 Med Refill Encounter Details Date Type Department Care Team Description 03/23/2022 Refill Pulmonology - [place] 175 [facility] [address] [place] [address] Michael Saldana MD Note, Other [...] 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, SANDWICH MACHINE OPERATOR, CHANDRAKANT) 06/14/2020 Sex Assigned at [...] N/A Patients current insurance carrier is: Payor: [facility] [employer] / Plan: [facility] / Product Type: MEDICAID RISK documented in this encounter Plan of Treatment Not on file documented as of this encounter Visit Diagnoses Diagnosis Moderate persistent asthma, unspecified whether complicated documented in this encounter Care Teams Rfid Engineer Relationship Specialty Start Date End Date Ora Ronquillo MD 444 [place] [address] PCP - General Internal Medicine 10/11/21 Jl Mendez MD [address] [place] [address] Dr Montiel [address] [place] [address] Specialist Cardiovascular Disease 10/13/21 Jannette Boudreaux MD 175 [facility] 300 [place] [address] Surgeon Neurosurgery 04/07/22 Tenisha Mendieta PA-C [address] [address] Specialist Neurosurgery 04/07/22 Julio Monk PA-C 175 [facility] 300 [place] [address] Specialist Neurosurgery 04/07/22 Luis Armando Eller MD [address] [address] Specialist ORTHOPEDIC SURGERY 10/01/23 Jayesh Pineda MD 305 [place] [address] Specialist Endocrinology 10/01/23 Kelsi Tejada MD 305 [place] [address] Specialist Allergy & Immunology 10/01/23 Pretty Le MD 175 [facility] 200 [place] [address] Specialist Pulmonology 10/01/23 Vesta Michael PA-C 300 [facility] 210 [place] [address] Specialist Vascular Surgery 10/01/23 [facility] 46 [place], [place] [address] Specialist Optometry 10/01/23 documented as of this encounter
--- OUTSIDE RECORDS SUMMARY | 2024-04-23 13:52 | XMS_ITS | Encounter Summary ---
Author Organization [facility] Address [address] [place] [address] Care Team Providers Care Rubber Stamps And Dies Supervisor Name Role Phone Teressa Solis DO Primary Care Pro vider Unavailable Mina Pretty DO Primary Care Provider Shweta Cronin MD Primary Care Provider Oar Diaz MD Primary Care Prov ider Jl Mendez MD Unavailable [phone] Jannette Boudreaux MD Unavailable [phone] Tenisha Mendieta PA-C Unavailable Julio Monk PA-C Unavailable Luis Armando Eller MD Unavailable [phone] Jayesh Pineda MD Unavailable Kelsi Tejada MD Unavailable Unavailable Pretty Le MD Unavailable Vesta Michael PA-C Unavailable [phone] [facility] Unavailable [phone] Encounter Details Date Type Department Care Team Description 04/21/2020 Consultant Dietitian Report Medical Records 4 [place] [address] Randy Domínguez MD Social History Tobacco Use [...] on filedocumented in this encounter Care Teams Rubber Stamps And Dies Supervisor Relationship Specialty Start Date End Date Teressa Solis DO PCP - General Internal Medicine 12/18/13 09/15/20 Mina Pretty DO PCP - General Internal Medicine 09/16/20 Shweta Boucher MD PCP - General Internal Medicine 01/12/21 10/10/21 Ora Ronquillo MD [address] [place] [address] PCP - General Internal Medicine 10/11/21 Jl Mendez MD [address] [place] [address] Dr Montiel [address] [place] [address] Specialist Cardiovascular Disease 10/13/21 Jannette Boudreaux MD [address] [address] Surgeon Neurosurgery 04/07/22 Tenisha Mendieta PA-C [address] [address] Specialist Neurosurgery 04/07/22 Julio Monk PA-C [address] [address] Specialist Neurosurgery 04/07/22 Luis Armando Eller MD [address] [address] Specialist ORTHOPEDIC SURGERY 10/01/23 Jayesh Pineda MD [address] [place] [address] [place] [address] Specialist Endocrinology 10/01/23 Kelsi Tejada MD 305 [place] [address] Specialist Allergy & Immunology 10/01/23 Pretty Le MD 175 [facility] [address] [place] [address] Specialist Pulmonology 10/01/23 Vesta Michael PA-C 300 [facility] 210 [place] [address] Specialist Vascular Surgery 10/01/23 [facility] 46 [place] [address] Specialist Optometry 10/01/23 documented as of this encounter
--- OUTSIDE RECORDS SUMMARY | 2024-04-23 13:52 | XMS_ITS | Encounter Summary ---
Author Organization [facility] Address [address] [place] [address] Care Team Providers Care Wood Borer Name Role Phone Teressa Solis DO Primary Care Pro vider Unavailable Mina Pretty DO Primary Care Provider Shweta Cronin MD Primary Care Provider Ora Diaz MD Primary Care Prov ider Jl Mendez MD Unavailable [phone] Jannette Boudreaux MD Unavailable [phone] Tenisha Mendieta PA-C Unavailable [phone] Julio Monk PA-C Unavailable Luis Armando Eller MD Unavailable [phone] Jayesh Pineda MD Unavailable Kelsi Tejada MD Unavailable Unavailable Pretty Le MD Unavailable Vesta Michael PA-C Unavailable [facility] Unavailable [phone] Reason for Visit * Reason Onset Date Comments Medication 06/11/2019 Home Injection? Encounter Details Date Type Department Care Team Description 06/11/2019 Telephone Allergy [place] [address] [place] [address] Kelsi Tejada MD Medication (Home [...] on filedocumented in this encounter Care Teams Wood Borer Relationship Specialty Start Date End Date Teressa Solis DO PCP - General Internal Medicine 12/18/13 09/15/20 Mina Pretty DO PCP - General Internal Medicine 09/16/20 1 Shweta Tellez MD PCP - General Internal Medicine 01/12/21 10/10/21 Ora Ronquillo MD 444 [place] [address] PCP - General Internal Medicine 10/11/21 Jl Mendez MD [address] [place] [address] Dr Mont[address] [place] [address] Specialist Cardiovascular Disease 10/13/21 Jannette Boudreaux MD 175 [facility] 300 [place] [address] Surgeon Neurosurgery 04/07/22 Tenisha Mendieta PA-C [address] [address] Specialist Neurosurgery 04/07/22 Julio Monk PA-C 175 [facility] 300 [place] [address] Specialist Neurosurgery 04/07/22 Luis Armando Eller MD 175 [facility] 250 [place] [address] Specialist ORTHOPEDIC SURGERY 10/01/23 Jayesh Pineda MD 305 [place] [address] Specialist Endocrinology 10/01/23 Kelsi Tejada MD 305 [place] [address] Specialist Allergy & Immunology 10/01/23 Pretty Le MD 175 [facility] [address] [place] [address] Specialist Pulmonology 10/01/23 Vesta Michael PA-C 300 [facility] [address] [place] [address] Specialist Vascular Surgery 10/01/23 [facility] [address] [place] [address] Specialist Optometry 10/01/23 documented as of this encounter
--- OUTSIDE RECORDS SUMMARY | 2024-04-23 13:52 | XMS_ITS | Encounter Summary ---
Author Organization [facility] Address [address] [place] [address] Care Team Providers Care Web Designer Name Role Phone Teressa Solis DO Primary Care Pro vider Unavailable Mina Pretty DO Primary Care Provider Shweta Cronin MD Primary Care Provider Ora Diaz MD Primary Care Prov ider Jl Mendez MD Unavailable [phone] Jannette Boudreaux MD Unavailable [phone] Tenisha Mendieta PA-C Unavailable [phone] Julio Monk PA-C Unavailable [phone] Luis Armando Ellre MD Unavailable [phone] Jayesh Pineda MD Unavailable Kelsi Tejada MD Unavailable Unavailable Pretty Le MD Unavailable Vesta Michael PA-C Unavailable [facility] Unavailable [phone] Encounter Details Date Type Department Care Team Description 03/25/2018 Transfer Records Medical Records 4 [place] [address] Abstract, Provider Social History Tobacco Use Types [...] on filedocumented in this encounter Care Teams Web Designer Relationship Specialty Start Date End Date Teressa Solis DO PCP - General Internal Medicine 12/18/13 09/15/20 Mina Pretty DO PCP - General Internal Medicine 09/16/20 Shweta Boucher MD PCP - General Internal Medicine 01/12/21 10/10/21 Ora Ronquillo MD [address] [place] [address] PCP - General Internal Medicine 10/11/21 Jl Mendez MD [address] [place] [address] Specialist Cardiovascular Disease 10/13/21 Jannette Boudreaux MD [address] [address] Surgeon Neurosurgery 04/07/22 Tenisha Mendieta PA-C [address] [address] Specialist Neurosurgery 04/07/22 Julio Monk PA-C [address] [address] Specialist Neurosurgery 04/07/22 Luis Armando Eller MD [address] [address] Specialist ORTHOPEDIC SURGERY 10/01/23 Jayesh Pineda MD 305 [place] [address] Specialist Endocrinology 10/01/23 Kelsi Tejada MD 305 [place] [address] Specialist Allergy & Immunology 10/01/23 Pretty Le MD 175 [facility] [address] [place] [address] Specialist Pulmonology 10/01/23 Vesta Michael PA-C 300 [facility] [address] [place] [address] Specialist Vascular Surgery 10/01/23 [facility] 46 [place] [address] Specialist Optometry 10/01/23 documented as of this encounter
--- OUTSIDE RECORDS SUMMARY | 2024-04-23 13:52 | XMS_ITS | Encounter Summary ---
Author Organization [facility] Address [address] [place] [address] Care Team Providers Care Automotive Technician Name Role Phone Ora Ronquillo MD Primary Care Prov ider Jl Mendez MD Unavailable [phone] Jannette Boudreaux MD Unavailable [phone] Tenisha Mendieta PA-C Unavailable Julio Monk PA-C Unavailable [phone] Luis Armando Eller MD Unavailable [phone] Jayesh Pineda MD Unavailable Kelsi Tejada MD Unavailable Unavailable Pretty Le MD Unavailable Vesta Michael PA-C Unavailable [phone] [facility] Unavailable Encounter Details Date Type Department Care Team Description 11/30/2023 Telephone [facility] Medical [facility] 175 [facility] [address] [place] [address] Lorie Moore, DONN [address] [facility] [place] [address] Social History Tobacco Use Types Packs/Day Years Used Date Smoking Tobacco: Never Smokeless Tobacco: Never Alcohol Use Standard Drinks/Week Comments No 0 (1 standard drink = 0.6 oz pur e alcohol) Education Answer Date Recorded What is the highest level of school you have completed or the highest degree you have received? 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, RENTAL CLERK TOOL AND EQUIPMENT, CHANDRAKANT) 06/14/2020 Sex Assigned at Date Recorded Female 08/03/2020 10:16 PM EDT Job Start Date Occupation Industry Not on file Not on file Not on file documented as of this encounter Miscellaneous Notes * Telephone Encounter - Jaz Devine - 11/30/2023 9:53 AM EDT Called patient and LVM requesting a call back with her medicare ID# documented in this encounter Plan of Treatment Not on file documented as of this encounter Visit Diagnoses Not on filedocumented in this encounter Care Teams Automotive Technician Relationship Specialty Start Date End Date Ora Ronquillo MD 444 [place] [address] PCP - General Internal Medicine 10/11/21 Jl Mendez MD [address] [place] [address] Dr Mont[address] [place] [address] Specialist Cardiovascular Disease 10/13/21 Jannette Boudreaux MD [address] [address] Surgeon Neurosurgery 04/07/22 Tenisha Mendieta PA-C [address] [address] Specialist Neurosurgery 04/07/22 Julio Monk PA-C 175 [facility] [address] [place] [address] Specialist Neurosurgery 04/07/22 Luis Armando Eller MD [address] [address] Specialist ORTHOPEDIC SURGERY 10/01/23 Jayesh Pineda MD 305 [place] [address] Specialist Endocrinology 10/01/23 Kelsi Tejada MD 305 [place] [address] Specialist Allergy & Immunology 10/01/23 Pretty Le MD 175 [facility] [address] [place] [address] Specialist Pulmonology 10/01/23 Vesta Michael PA-C 300 [facility] 210 [place] [address] Specialist Vascular Surgery 10/01/23 [facility] 46 [place] [address] Specialist Optometry 10/01/23 documented as of this encounter
--- OUTSIDE RECORDS SUMMARY | 2024-04-23 13:52 | XMS_ITS | Encounter Summary ---
Author Organization [facility] Address [address] [place] [address] Care Team Providers Care Undraped Artist Model Name Role Phone Ora Ronquillo MD Primary Care Prov ider Jl Mendez MD Unavailable Jannette Boudreaux MD Unavailable [phone] Tenisha MendietaC Unavailable [phone] Julio Monk-C Unavailable Luis Armando Eller MD Unavailable [phone] Jayesh Pineda MD Unavailable Kelsi Tejada MD Unavailable Unavailable Pretty Le MD Unavailable Vesta Michael PA-C Unavailable [phone] [facility] Unavailable [phone] Encounter Details Date Type Department Care Team Description 04/12/2022 SCAN [facility] Medical [facility] Neurosurgery [place] 175 [facility] [address] [place] [address] Jannette Boudreaux MD [address] [address] Social History Tobacco Use Types Packs/Day Years Used Date Smoking Tobacco: Never Smokeless Tobacco: Never Alcohol Use Standard Drinks/Week Comments No 0 (1 standard drink = 0.6 oz pur e alcohol) Education Answer Date Recorded What is the highest level of school you have completed or the highest degree you have received? 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, MOVEMENT ASSEMBLER, CHANDRAKANT) 06/14/2020 Sex Assigned at Date [...] on filedocumented in this encounter Care Teams Undraped Artist Model Relationship Specialty Start Date End Date Ora Ronquillo MD [address] [place] [address] PCP - General Internal Medicine 10/11/21 Jl Mendez MD [address] [place] [address] Dr Mont[address] [place] [address] Specialist Cardiovascular Disease 10/13/21 Jannette Boudreaux MD [address] [address] Surgeon Neurosurgery 04/07/22 Tenisha Mendieta PA-C [address] [address] Specialist Neurosurgery 04/07/22 Julio Monk PA-C [address] [address] Specialist Neurosurgery 04/07/22 Luis Armando Eller MD [address] [address] Specialist ORTHOPEDIC SURGERY 10/01/23 Jayesh Pineda MD [address] [place] [address] Specialist Endocrinology 10/01/23 Kelsi Tejada MD 305 [facility] [place] [address] Specialist Allergy & Immunology 10/01/23 Pretty Le MD 175 [facility] [address] [place] [address] Specialist Pulmonology 10/01/23 Vesta Michael PA-C 300 [facility] 210 [place] [address] Specialist Vascular Surgery 10/01/23 [facility] 46 [place], [place] [address] Specialist Optometry 10/01/23 documented as of this encounter
--- OUTSIDE RECORDS SUMMARY | 2024-04-23 13:52 | XMS_ITS | Encounter Summary ---
Author Organization [facility] Address [address] [place] [address] Care Team Providers Care Oracle Financials Consultant Name Role Phone Teressa Solis DO Primary Care Pro vider Unavailable Mina Pretty DO Primary Care Provider Shweta Cronin MD Primary Care Provider Ora Diaz MD Primary Care Prov ider Jl Mendez MD Unavailable Jannette Boudreaux MD Unavailable [phone] Tenisha Mendieta PA-C Unavailable Julio Monk PA-C Unavailable [phone] Luis Armando Eller MD Unavailable [phone] Jayesh Pineda MD Unavailable Kelsi Tejada MD Unavailable Unavailable Pretty Le MD Unavailable Vesta Michael PA-C Unavailable [phone] [facility] Unavailable [phone] Encounter Details Date Type Department Care Team Description 06/23/2015 Hospital Medical Records [address] [place] [address] Phoebe Crain MD Social History Tobacco Use Types Packs/Day Years Used Date Smoking Tobacco: Never Smokeless Tobacco: Never Alcohol Use Standard Drinks/Week Comments No 0 (1 standard drink = 0.6 oz pur e alcohol) Education Answer Date Recorded What is the highest level of school you have completed or the highest degree you have received? 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, NEGATIVE DEVELOPER, CHANDRAKANT) 06/14/2020 Sex Assigned at Date Recorded Female 08/03/2020 10:16 PM EDT Job Start Date Occupation Industry Not on file Not on file Not on file documented as of this encounter Plan of Treatment Not on file documented as of this encounter Visit Diagnoses Not on filedocumented in this encounter Care Teams [employer] Consultant Relationship Specialty Start Date End Date Teressa Solis DO PCP - General Internal Medicine 12/18/13 09/15/20 Mina Pretty DO PCP - General Internal Medicine 09/16/20 Shweta Boucher MD PCP - General Internal Medicine 01/12/21 10/10/21 Ora Ronquillo MD [address] [place] [address] PCP - General Internal Medicine 10/11/21 Jl Mendez MD [address] [place] [address] Dr Mont[address] [place] [address] Specialist Cardiovascular Disease 10/13/21 Jannette Boudreaux MD [address] [address] Surgeon Neurosurgery 04/07/22 Tenisha Mendieta PA-C [address] [address] Specialist Neurosurgery 04/07/22 Julio Monk PA-C [address] [address] Specialist Neurosurgery 04/07/22 Luis Armando Eller MD [address] [address] Specialist ORTHOPEDIC SURGERY 10/01/23 Jayesh Pineda MD 305 [place] [address] Specialist Endocrinology 10/01/23 Kelsi Tejada MD 305 [place] [address] Specialist Allergy & Immunology 10/01/23 Pretty Le MD 175 [facility] [address] [place] [address] Specialist Pulmonology 10/01/23 Vesta Michael PA-C 300 [facility] 210 [place] [address] Specialist Vascular Surgery 10/01/23 [facility] [address] [place] [address] Specialist Optometry 10/01/23 documented as of this encounter
--- OUTSIDE RECORDS SUMMARY | 2024-04-23 13:52 | XMS_ITS | Encounter Summary ---
Author Organization [facility] Address [address] [place] [address] Care Team Providers Care Driller And Broacher Name Role Phone Teressa Solis DO Primary Care Pro vider Unavailable Mina Pretty DO Primary Care Provider Ailyn Shweta Pretty MD Primary Care Provider UnaOra Randall MD Primary Care Prov ider Jl Mendez MD Unavailable Jannette Boudreaux MD Unavailable [phone] Tenisha Mendieta PA-C Unavailable [phone] Julio MonkC Unavailable Luis Armando Eller MD Unavailable [phone] Jayesh Pineda MD Unavailable Kelsi Tejada MD Unavailable Unavailable Pretty Le MD Unavailable Vesta Michael PA-C Unavailable [phone] [facility] Unavailable Encounter Details Date Type Department Care Team Description 03/06/2018 Orders Only Pulmonology - [place] 175 [facility] [address] [place] [address] Julio Cesar Weiss MD 175 [facility] [address]inesh 200 [place] [address] Obstructive sleep apnea severe AHI [...] seasonality documented in this encounter Care Teams Driller And Broacher Relationship Specialty Start Date End Date Teressa Solis DO PCP - General Internal Medicine 12/18/13 09/15/20 Mina Pretty DO PCP - General Internal Medicine 09/16/20 1 Shweta Tellez MD PCP - General Internal Medicine 01/12/21 10/10/21 Ora Ronquillo MD [address] [place] [address] PCP - General Internal Medicine 10/11/21 Jl Mendez MD [address] [place] [address] [place] [address] Specialist Cardiovascular Disease 10/13/21 Jannette Boudreaux MD 175 [facility] 300 [place] [address] Surgeon Neurosurgery 04/07/22 Tenisha Mendieta PA-C 175 [facility] 300 [place] [address] Specialist Neurosurgery 04/07/22 Julio Monk PA-C 175 [facility] 300 [place] [address] Specialist Neurosurgery 04/07/22 Luis Armando Eller MD [address] [address] Specialist ORTHOPEDIC SURGERY 10/01/23 Jayesh Pineda MD 305 [place] [address] Specialist Endocrinology 10/01/23 Kelsi Teajda MD 305 [place] [address] Specialist Allergy & Immunology 10/01/23 Pretty Le MD 175 [facility] 200 [place] [address] Specialist Pulmonology 10/01/23 Vesta Michael PA-C 300 [facility] 210 [place] [address] Specialist Vascular Surgery 10/01/23 [facility] [address] [place] [address] Specialist Optometry 10/01/23 documented as of this encounter
--- OUTSIDE RECORDS SUMMARY | 2024-04-23 13:52 | XMS_ITS | Encounter Summary ---
Author Organization [facility] Address [address] [place] [address] Care Team Providers Care Relationship Associate Name Role Phone Teressa Solis DO Primary Care Pro vider Unavailable Mina Pretty DO Primary Care Provider Shweta Cronin MD Primary Care Provider UnaOra Randall MD Primary Care Prov ider Jl Mendez MD Unavailable [phone] Jannette Boudreaux MD Unavailable [phone] Tenisha Mendieta PA-C Unavailable [phone] Julio MonkC Unavailable [phone] Luis Armando Eller MD Unavailable [phone] Jayesh Pineda MD Unavailable Kelsi Tejada MD Unavailable Unavailable Pretty Le MD Unavailable Vesta Michael PA-C Unavailable [phone] [facility] Unavailable Reason for Visit * Reason Onset Date Comments APPOINTMENT 05/28/2019 Reschedule Nucal a Encounter Details Date Type Department Care Team Description 05/28/2019 Telephone Allergy [place] [address] [place] [address] Kelsi Tejada MD APPOINTMENT (Reschedule Nucala ) Social History Tobacco Use Types Packs/Day Years [...] encounter Miscellaneous Notes * Telephone Encounter - Kelsi Tejada MD - 05/28/2019 1:48 PM EDT It has only been studied every 28 days so let us have her keep current appt * Telephone Encounter - Nola Campbell R.N. - 05/28/2019 11:59 AM EDT LV for [place]man 05/06/19. If I call to have her come in tomorrow or Sunday she will be 23 or 24 days instead of 28. Is this acceptable? Should we wait? documented in this encounter Plan of Treatment Not on file documented as of this encounter Visit Diagnoses Not on filedocumented in this encounter Care Teams Relationship Associate Relationship Specialty Start Date End Date Teressa Solis, PCP - General Internal Medicine 12/18/13 09/15/20 Mina Pretty DO PCP - General Internal Medicine 09/16/20 1 Shweta Tellez MD PCP - General Internal Medicine 01/12/21 10/10/21 Ora Ronquillo MD [address] [place] [address] PCP - General Internal Medicine 10/11/21 Jl Mendez MD [address] [place] [address] [place] [address] Specialist Cardiovascular Disease 10/13/21 Jannette Boudreaux MD 175 [facility] [address] [place] [address] Surgeon Neurosurgery 04/07/22 Tenisha Mendieta PA-C 175 [facility] 300 [place] [address] Specialist Neurosurgery 04/07/22 Julio Monk PA-C 175 [facility] 300 [place] [address] Specialist Neurosurgery 04/07/22 Luis Armando Eller MD 175 [facility] [address] [place] [address] Specialist ORTHOPEDIC SURGERY 10/01/23 Jayesh Pineda MD 305 [place] [address] Specialist Endocrinology 10/01/23 Kelsi Tejada MD 305 [place] [address] Specialist Allergy & Immunology 10/01/23 Pretty Le MD 175 [facility] [address] [place] [address] Specialist Pulmonology 10/01/23 Vesta Michael PA-C 300 [facility] 210 [place] [address] Specialist Vascular Surgery 10/01/23 [facility] 46 [place] [address] Specialist Optometry 10/01/23 documented as of this encounter
--- OUTSIDE RECORDS SUMMARY | 2024-04-23 13:52 | XMS_ITS | Encounter Summary ---
Author Organization [facility] Address [address] [place] [address] Care Team Providers Care Flatwork Feeder Name Role Phone Ora Ronquillo MD Primary Care Prov ider Jl Mendez MD Unavailable [phone] Jannette Boudreaux MD Unavailable [phone] Tenisha MendietaC Unavailable Julio Monk-C Unavailable [phone] Luis Armando Eller MD Unavailable [phone] Jayesh Pineda MD Unavailable Kelsi Tejada MD Unavailable Unavailable Pretty Le MD Unavailable Vesta Michael PA-C Unavailable [phone] [facility] Unavailable Encounter Details Date Type Department Care Team Description 12/10/2023 SCAN [facility] Medical [facility] 175 [facility] [address] [place] [address] Luis Armando Eller MD 175 [facility] [address] [place], [place] [id number] Social History Tobacco Use Types Packs/Day Years Used Date Smoking Tobacco: Never Smokeless Tobacco: Never Alcohol Use Standard Drinks/Week Comments No 0 (1 standard drink = 0.6 oz pur e alcohol) Education Answer Date Recorded What is the highest level of school you have completed or the highest degree you have received? 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, MOTOR VEHICLE LECTURER, CHANDRAKANT) 06/14/2020 Sex Assigned at Date Recorded Female 08/03/2020 10:16 PM EDT Job Start Date Occupation Industry Not on file Not on file Not on file documented as of this encounter Plan of Treatment Not on file documented as of this encounter Visit Diagnoses Not on filedocumented in this encounter Care Teams Flatwork Feeder Relationship Specialty Start Date End Date Ora Ronquillo MD [address] [place] [address] PCP - General Internal Medicine 10/11/21 Jl Mendez MD [address] [place] [address] Dr Mont[address] [place] [address] Specialist Cardiovascular Disease 10/13/21 Jannette Boudreaux MD [address] [address] Surgeon Neurosurgery 04/07/22 Tenisha Mendieta PA-C [address] [address] Specialist Neurosurgery 04/07/22 Julio Monk PA-C [address] [address] Specialist Neurosurgery 04/07/22 Luis Armando Eller MD [address] [address] Specialist ORTHOPEDIC SURGERY 10/01/23 Jayesh Pineda MD 305 [place] [address] Specialist Endocrinology 10/01/23 Kelsi Tejada MD 305 [place] [address] Specialist Allergy & Immunology 10/01/23 Pretty Le MD 175 [facility] 200 [place] [address] Specialist Pulmonology 10/01/23 eVsta Michael PA-C 300 [facility] 210 [place] [address] Specialist Vascular Surgery 10/01/23 [facility] 46 [place] [address] Specialist Optometry 10/01/23 documented as of this encounter
--- OUTSIDE RECORDS SUMMARY | 2024-04-23 13:52 | XMS_ITS | Encounter Summary ---
Author Organization [facility] Address [address] [place] [address] Care Team Providers Care Health/Safety Job Titles Name Role Phone Teressa Solis DO Primary Care Pro vider Unavailable Mina Pretty DO Primary Care Provider Shweta Cronin MD Primary Care Provider Ora Diaz MD Primary Care Prov ider Jl Mendez MD Unavailable Jannette Boudreaux MD Unavailable [phone] Tenisha Mendieta PA-C Unavailable [phone] Julio Monk PA-C Unavailable [phone] Luis Armando Eller MD Unavailable [phone] Jayesh Pineda MD Unavailable Kelsi Tejada MD Unavailable Unavailable Pretty Le MD Unavailable Vesta Michael PA-C Unavailable [facility] Unavailable [phone] Encounter Details Date Type Department Care Team Description 06/13/2019 Telephone Allergy [place] 98 [address] [place] [address] Kelsi Tejada MD Social History [...] encounter Miscellaneous Notes * Telephone Encounter - Jenni Irby M.A. - 06/13/2019 9:08 AM EDT [facility] calling to set up delivery for Nucala. I spoke with Rosio and based on phone callfrom 06/11/2019 we are going to hold off on delivery for now because we will be switching patient to auto injector. We will contact them once everything is all set. She agrees and will put delivery on hold for now. documented in this encounter Plan of Treatment Not on file documented as of this encounter Visit Diagnoses Not on filedocumented in this encounter Care Teams Health/Safety Job Titles Relationship Specialty Start Date End Date Teressa Solis DO PCP - General Internal Medicine 12/18/13 09/15/20 Mina Pretty DO PCP - General Internal Medicine 09/16/20 1 Shweta Tellez MD PCP - General Internal Medicine 01/12/21 10/10/21 Ora Ronquillo MD [address] [place] [address] PCP - General Internal Medicine 10/11/21 Jl Mendez MD [address] [place] [address] Dr Montiel [address] [place] [address] Specialist Cardiovascular Disease 10/13/21 Jannette Boudreaux MD [address] [address] Surgeon Neurosurgery 04/07/22 Tenisha Mendieta PA-C 175 [facility] [place] [facility] 300 [place] [address] Specialist Neurosurgery 04/07/22 Julio Monk PA-C 175 [facility] 300 [place] [address] Specialist Neurosurgery 04/07/22 Luis Armando Eller MD 175 [facility] [place] [facility] 250 [place] [address] Specialist ORTHOPEDIC SURGERY 10/01/23 Jayesh Pineda MD 305 [place] [address] Specialist Endocrinology 10/01/23 Kelsi Tejada MD 305 [place] [address] Specialist Allergy & Immunology 10/01/23 Pretty Le MD 175 [facility] 200 [place] [address] Specialist Pulmonology 10/01/23 Vesta Michael PA-C 300 [facility] 210 [place] [address] Specialist Vascular Surgery 10/01/23 [facility] 46 [place] [address] Specialist Optometry 10/01/23 documented as of this encounter
--- OUTSIDE RECORDS SUMMARY | 2024-04-23 13:52 | XMS_ITS | Encounter Summary ---
Author Organization [facility] Address [address] [place] [address] Care Team Providers Care Mechanical Maintenance Technician Name Role Phone Teressa Solis DO Primary Care Pro vider Unavailable Mina Pretty DO Primary Care Provider Shweta Cronin MD Primary Care Provider Ora Diaz MD Primary Care Prov ider Jl Mendez MD Unavailable Jannette Boudreaux MD Unavailable [phone] Tenisha Mendieta PA-C Unavailable Julio MonkC Unavailable [phone] Luis Armando Eller MD Unavailable [phone] Jayesh Pineda MD Unavailable Kelsi Tejada MD Unavailable Unavailable Pretty Le MD Unavailable Vesta Michael PA-C Unavailable [facility] Unavailable [phone] Reason for Visit * Reason Comments E-prescribe Rx Request Encounter Details Date Type Department Care Team Description 04/17/2018 Refill Adult Medicine [address] [id number] Alexia Walton MD E-prescribe Rx Request Social History Tobacco [...] Telephone Encounter - Shell Jimenez M.A. - 04/17/2018 11:25 AM EST Forwarded to PCP for refill * Telephone Encounter - Lubna Thornton M.A. - 04/17/2018 11:14 AM EST Lab Results Component Value Date TSH 2.17 10/17/2017 Last ov 03/04/18 sick visit Last ov with Dr. Tristan for thyroid 02/04/[address] Tristan * Telephone Encounter - Lynn Rothmana - 04/17/2018 8:51 AM EST Patient would like script to be: E-PRESCRIBED/FAXED TO PHARMACY WHEN WAS THE PATIENT'S LAST APPOINTMENT IN ADULT MEDICINE? [id number] WHEN WAS THE LAST TIME THE PATIENT SAW THEIR PCP? [id number] Does patient have an upcoming appointment? No-unable to reach left [facility] to call for appointment due to refill request. Appt due (THE MEDICATION REQUESTED IS ON THE MED [...] N/A Patients current insurance carrier is: Payor: [employer] / Plan: [employer] / Product Type: MEDICAID RISK documented in this encounter Plan of Treatment Not on file documented as of this encounter Visit Diagnoses Not on filedocumented in this encounter Care Teams Mechanical Maintenance Technician Relationship Specialty Start Date End Date Teressa Solis DO PCP - General Internal Medicine 12/18/13 09/15/20 Mina Pretty DO PCP - General Internal Medicine 09/16/20 Shweta Boucher MD PCP - General Internal Medicine 01/12/21 10/10/21 Ora Ronquillo MD [address] [place] [address] PCP - General Internal Medicine 10/11/21 Jl Mendez MD [address] [place] [address] Dr Mont[address] [place] [address] Specialist Cardiovascular Disease 10/13/21 Jannette Boudreaux MD [address] [address] Surgeon Neurosurgery 04/07/22 Tenisha Mendieta PA-C [address] [address] Specialist Neurosurgery 04/07/22 Julio Monk PA-C 175 [facility] [address] [place] [address] Specialist Neurosurgery 04/07/22 Luis Armando Eller MD [address] [address] Specialist ORTHOPEDIC SURGERY 10/01/23 Jayesh Pineda MD [address] [place] [address] Specialist Endocrinology 10/01/23 Klesi Tejada MD 305 [place] [address] Specialist Allergy & Immunology 10/01/23 Pretty Le MD 175 [facility] [address] [place] [address] Specialist Pulmonology 10/01/23 Vesta Michael PA-C 300 [facility] 210 [place] [address] Specialist Vascular Surgery 10/01/23 [facility] 46 [place], [place] [address] Specialist Optometry 10/01/23 documented as of this encounter
--- OUTSIDE RECORDS SUMMARY | 2024-04-23 13:52 | XMS_ITS | Encounter Summary ---
Author Organization [facility] Address [address] [place] [address] Care Team Providers Care Airline Hostess Name Role Phone Ora Ronquillo MD Primary Care Prov ider Jl Mendez MD Unavailable Jannette Boudreaux MD Unavailable [phone] Tenisha Mendieta PA-C Unavailable Julio Monk PA-C Unavailable Luis Armando Eller MD Unavailable [phone] Jayesh Pineda MD Unavailable Kelsi Tejada MD Unavailable Unavailable Pretty Le MD Unavailable Vesta Michael PA-C Unavailable [phone] [facility] Unavailable [phone] Encounter Details Date Type Department Care Team Description 08/07/2023 Refill Pulmonology - [place] 175 [facility] [address] [place] [address] Julio Cesar Weiss MD 175 [facility] [address] [place] [address] Social History Tobacco Use Types Packs/Day Years Used Date Smoking Tobacco: Never Smokeless Tobacco: Never Alcohol Use Standard Drinks/Week Comments No 0 (1 standard drink = 0.6 oz pur e alcohol) Education Answer Date Recorded What is the highest level of school you have completed or the highest degree you have received? 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, BANKING ASSISTANT, CHANDRAKANT) 06/14/2020 Sex Assigned at Date Recorded Female 08/03/2020 10:16 PM EDT Job Start Date Occupation Industry Not on file Not on file Not on file documented as of this encounter Miscellaneous Notes * Telephone Encounter - Linda Lincoln - 08/07/2023 9:47 AM EDT Provider not longer at this practice, patient will need to schedule a follow up to establish care with one of our providers documented in this encounter Plan of Treatment Not on file documented as of this encounter Visit Diagnoses Diagnosis Moderate persistent asthma without complication Unspecified asthma Gastroesophageal reflux disease without esophagitis Esophageal reflux Obstructive sleep apnea Obstructive sleep apnea (adult) (pediatric) 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 VIRGIE on CPAP Obstructive sleep apnea (adult) (pediatric) Allergic rhinitis due to pollen, unspecified seasonality documented in this encounter Care Teams Airline Hostess Relationship Specialty Start Date End Date Ora Ronquillo MD 4 [place] [address] PCP - General Internal Medicine 10/11/21 Jl Mendez MD [address] [place] [address] Dr Montiel [address] [place] [address] Specialist Cardiovascular Disease 10/13/21 Jannette Boudreaux MD [address] [address] Surgeon Neurosurgery 04/07/22 Tenisha Mendieta PA-C [address] [address] Specialist Neurosurgery 04/07/22 Julio Monk PA-C [address] [address] Specialist Neurosurgery 04/07/22 Luis Armando Eller MD 175 [facility] [address] [place] [address] Specialist ORTHOPEDIC SURGERY 10/01/23 Jayesh Pineda MD 305 [place] [address] Specialist Endocrinology 10/01/23 Kelsi Tejada MD 305 [place] [address] Specialist Allergy & Immunology 10/01/23 Pretty Le MD 175 [facility] [address] [place] [address] Specialist Pulmonology 10/01/23 Vesta Michael PA-C 300 [facility] [address] [place] [address] Specialist Vascular Surgery 10/01/23 [facility] 46 [place] [address] Specialist Optometry 10/01/23 documented as of this encounter
--- OUTSIDE RECORDS SUMMARY | 2024-04-23 13:52 | XMS_ITS | Encounter Summary ---
Author Organization [facility] Address [address] [place] [address] Care Team Providers Care Hazardous Waste Remover Name Role Phone Teressa Solis DO Primary Care Pro vider Unavailable Mina Pretty DO Primary Care Provider Ailyn Shweta Pretty MD Primary Care Provider Ora Diaz MD Primary Care Prov ider Jl Mendez MD Unavailable Jannette Boudreaux MD Unavailable [phone] Tenisha Mendieta PA-C Unavailable Julio Monk PA-C Unavailable [phone] Luis Armando Eller MD Unavailable [phone] Jayesh Pineda MD Unavailable Kelsi Tejada MD Unavailable Unavailable Pretty Le MD Unavailable Vesta Michael PA-C Unavailable [facility] Unavailable Encounter Details Date Type Department Care Team Description 01/20/2014 Release of Information Medical Records 4 [place] [address] Abstract, Provider Social History Tobacco Use Types [...] on filedocumented in this encounter Care Teams Hazardous Waste Remover Relationship Specialty Start Date End Date Teressa Solis DO PCP - General Internal Medicine 12/18/13 09/15/20 Mina Pretty DO PCP - General Internal Medicine 09/16/20 Shweta Boucher MD PCP - General Internal Medicine 01/12/21 10/10/21 Ora Ronquillo MD [address] [place] [address] PCP - General Internal Medicine 10/11/21 Jl Mendez MD [address] [place] [address] [place] [address] Specialist Cardiovascular Disease 10/13/21 Jannette Boudreaux MD [address] [address] Surgeon Neurosurgery 04/07/22 Tenisha Mendieta PA-C [address] [address] Specialist Neurosurgery 04/07/22 Julio Monk PA-C [address] [address] Specialist Neurosurgery 04/07/22 Luis Armando Eller MD [address] [address] Specialist ORTHOPEDIC SURGERY 10/01/23 Jayesh Pineda MD 305 [place] [address] Specialist Endocrinology 10/01/23 Kelsi Tejada MD 305 [place] [address] Specialist Allergy & Immunology 10/01/23 Pretty Le MD 175 [facility] [address] [place] [address] Specialist Pulmonology 10/01/23 Vesta Michael PA-C 300 [facility] [address] [place] [address] Specialist Vascular Surgery 10/01/23 [facility] 46 [place] [address] Specialist Optometry 10/01/23 documented as of this encounter
--- OUTSIDE RECORDS SUMMARY | 2024-04-23 13:52 | XMS_ITS | Encounter Summary ---
Author Organization [facility] Address [address] [place] [address] Care Team Providers Care Auto Parts Clerk Name Role Phone Teressa Solis DO Primary Care Pro vider Unavailable Mina Pretty DO Primary Care Provider Shweta Cronin MD Primary Care Provider Ora Diaz MD Primary Care Prov ider Jl Mendez MD Unavailable Jannette Boudreaux MD Unavailable [phone] Tenisah Mendieta PA-C Unavailable Julio Monk PA-C Unavailable [phone] Luis Armando Eller MD Unavailable [phone] Jayesh Pineda MD Unavailable Kelsi Tejada MD Unavailable Unavailable Pretty Le MD Unavailable Vesta Michael PA-C Unavailable [facility] Unavailable Reason for Visit * Reason Comments E-prescribe Rx Request Encounter Details Date Type Department Care Team Description 04/02/2015 Refill Dermat[address] [place] [address] [phone] Ambrosio Jacob PA-C E-prescribe Rx Request Social History Tobacco [...] encounter Miscellaneous Notes * Telephone Encounter - Vy Stein C.M.A. - 04/05/2015 8:38 AM EST I informed pt that she used the Clobetasol incorrectly. She has chosen a compounding pharmacy. * Telephone Encounter - Ambrosio Jacob PA-C - 04/05/2015 8:07 AM EST Two issues ..... if one uses this very strong cortisone every single day and has not stopped after 2 weeks he woke stop working (tachyphylaxis). Please find out which pharmacy she would like me to perform the compound into .... Thanks. I wonder why she would ask for a refill of a product that isn'tworking but that's just a rhetorical question. * Telephone Encounter - Vy Stein C.M.A. - 04/05/2015 8:04 AM EST Pt said she has been using Clobetasol every day for over a month and her eczema is worst. * Telephone Encounter - Ambrosio Jacob PA-C - 04/03/2015 8:45 AM EST Would you please call this patient and see how effective this is working on her fingertip eczema? Thanks * Telephone Encounter - Paula Austin - 04/02/2015 2:05 PM EST Patient would like script to be: E-PRESCRIBED/FAXED TO PHARMACY (THE MEDICATION REQUESTED IS ON THE MED LIST ABOVE) All of the medications requested were on the CURRENT MEDS list Did you check the Pharmacy information above?: YES Patient wants: 30 -day supply Is this a mail order prescription request ? NO Patients current insurance carrier is: Payor: [employer] FFS / Plan: FFS HMO $0 [employer] [id number] / Product Type: MEDICAID RISK documented in this encounter Plan of Treatment Not on file documented as of this encounter Visit Diagnoses Not on filedocumented in this encounter Care Teams Auto Parts Clerk Relationship Specialty Start Date End Date Teressa Solis DO PCP - General Internal Medicine 12/18/13 09/15/20 Mina Pretty DO PCP - General Internal Medicine 09/16/20 1 Shweta Tellez MD PCP - General Internal Medicine 01/12/21 10/10/21 Ora Ronquillo MD 4 [place] [address] PCP - General Internal Medicine 10/11/21 Jl Mendez MD [address] [place] [address] Dr [address] [place] [address] Specialist Cardiovascular Disease 10/13/21 Jannette Boudreaux MD [address] [address] Surgeon Neurosurgery 04/07/22 Tenisha Mendieta PA-C [address] [address] Specialist Neurosurgery 04/07/22 Julio Monk PA-C 175 [facility] [address] [place] [address] Specialist Neurosurgery 04/07/22 Luis Armando Eller MD 175 [facility] 250 [place] [address] Specialist ORTHOPEDIC SURGERY 10/01/23 Jayesh Pineda MD 305 [place] [address] Specialist Endocrinology 10/01/23 Kelsi Tejada MD 305 [place] [address] Specialist Allergy & Immunology 10/01/23 Pretty Le MD 175 [facility] [address] [place] [address] Specialist Pulmonology 10/01/23 Vesta Michael PA-C 300 [facility] [address] [place] [address] Specialist Vascular Surgery 10/01/23 [facility] 46 [place] [address] Specialist Optometry 10/01/23 documented as of this encounter
--- OUTSIDE RECORDS SUMMARY | 2024-04-23 13:52 | XMS_ITS | Encounter Summary ---
Author Organization [facility] Address [address] [place] [address] Care Team Providers Care Electric Installer Name Role Phone Ora Ronquillo MD Primary Care Prov ider Jl Mendez MD Unavailable [phone] Jannette Boudreaux MD Unavailable [phone] Tenisha Mendieta PA-C Unavailable Julio Monk PA-C Unavailable Luis Armando Eller MD Unavailable [phone] Jayesh Pineda MD Unavailable Kelsi Tejada MD Unavailable Unavailable Pretty Le MD Unavailable Vesta Michael PA-C Unavailable [phone] [facility] Unavailable [phone] Encounter Details Date Type Department Care Team Description 10/08/2023 SCAN [facility] 175 [facility] [address] [place] [phone] Lorie Moore, DONN 15[address] [facility] [place] [address] Social History Tobacco Use Types Packs/Day Years Used Date Smoking Tobacco: Never Smokeless Tobacco: Never Alcohol Use Standard Drinks/Week Comments No 0 (1 standard drink = 0.6 oz pur e alcohol) Education Answer Date Recorded What is the highest level of school you have completed or the highest degree you have received? Master's degree (e.g., MA, MS, eLxi, MEd, SAND CONTROL WORKER, CHANDRAKANT) 06/14/2020 Sex Assigned at Date Recorded Female 08/03/2020 10:16 PM EDT Job Start Date Occupation Industry Not on file Not on file Not on file documented as of this encounter Plan of Treatment Not on file documented as of this encounter Visit Diagnoses Not on filedocumented in this encounter Care Teams Electric Installer Relationship Specialty Start Date End Date Ora Ronquillo MD [address] [place] [address] PCP - General Internal Medicine 10/11/21 Jl Mendez MD [address] [place] [address] Dr [address] [place] [address] Specialist Cardiovascular Disease 10/13/21 Jannette Boudreaux MD [address] [address] Surgeon Neurosurgery 04/07/22 Tenisha Mendieta PA-C [address] [address] Specialist Neurosurgery 04/07/22 Julio Monk PA-C 175 [facility] 300 [place] [address] Specialist Neurosurgery 04/07/22 Luis Armando Eller MD [address] [address] Specialist ORTHOPEDIC SURGERY 10/01/23 Jayesh Pineda MD 305 [place] [address] Specialist Endocrinology 10/01/23 Kelsi Tejada MD 305 [place] [address] Specialist Allergy & Immunology 10/01/23 Pretty Le MD 175 [facility] 200 [place] [address] Specialist Pulmonology 10/01/23 Vesta Michael PA-C 300 [facility] 210 [place] [address] Specialist Vascular Surgery 10/01/23 [facility] 46 [place] [address] Specialist Optometry 10/01/23 documented as of this encounter
--- OUTSIDE RECORDS SUMMARY | 2024-04-23 13:52 | XMS_ITS | Encounter Summary ---
Author Organization [facility] Address [address] [place] [address] Care Team Providers Care Grip Name Role Phone Teressa Solis DO Primary Care Pro vider Unavailable Mina Pretty DO Primary Care Provider Shweta Cronin MD Primary Care Provider Ora Diaz MD Primary Care Prov ider Jl Mendez MD Unavailable [phone] Jannette Boudreaux MD Unavailable [phone] Tenisha Mendieta PA-C Unavailable Julio MonkC Unavailable Luis Armando Eller MD Unavailable [phone] Jayesh Pineda MD Unavailable Kelsi Tejada MD Unavailable Unavailable Pretty Le MD Unavailable Vesta Michael PA-C Unavailable [facility] Unavailable [phone] Reason for Visit * Reason Comments E-prescribe Rx Request Encounter Details Date Type Department Care Team Description 04/21/2018 Refill Adult Medicine [address] [id number] Alexia Walton MD E-prescribe Rx Request Social [...] encounter Miscellaneous Notes * Telephone Encounter - Blanca Ac - 04/22/2018 1:45 PM EST Patient would like script to be: E-PRESCRIBED/FAXED TO PHARMACY WHEN WAS THE PATIENT'S LAST APPOINTMENT IN ADULT MEDICINE? 03/04/18 WHEN WAS THE LAST TIME THE PATIENT SAW THEIR PCP? 01/18/18 Does patient have an upcoming appointment? Patient was sent a My Chart request to set up an appointment as they are due. (THE MEDICATION REQUESTED IS ON THE MED [...] N/A Patients current insurance carrier is: Payor: [facility] / Plan: [facility] ALLIANCE / Product Type: MEDICAID RISK documented in this encounter Plan of Treatment Not on file documented as of this encounter Visit Diagnoses Not on filedocumented in this encounter Care Teams Grip Relationship Specialty Start Date End Date Teressa Solis DO PCP - General Internal Medicine 12/18/13 09/15/20 Mina Pretty DO PCP - General Internal Medicine 09/16/20 1 Shweta Tellez MD PCP - General Internal Medicine 01/12/21 10/10/21 Ora Ronquillo MD 444 [place] [address] PCP - General Internal Medicine 10/11/21 Jl Mendez MD [address] [place] [address] [place] [address] Specialist Cardiovascular Disease 10/13/21 Jannette Boudreaux MD 175 [facility] 300 [place] [address] Surgeon Neurosurgery 04/07/22 Tenisha Mendieta PA-C [address] [address] Specialist Neurosurgery 04/07/22 Julio Monk PA-C 175 [facility] 300 [place] [address] Specialist Neurosurgery 04/07/22 Luis Armando Eller MD 175 [facility] 250 [place] [address] Specialist ORTHOPEDIC SURGERY 10/01/23 Jayesh Pineda MD 305 [place] [address] Specialist Endocrinology 10/01/23 Kelsi Tejada MD 305 [place] [address] Specialist Allergy & Immunology 10/01/23 Pretty Le MD 175 [facility] 200 [place] [phone] Specialist Pulmonology 10/01/23 Vesta Michael PA-C 300 [facility] 210 [place] [address] Specialist Vascular Surgery 10/01/23 [facility] [address] [place], [place] [phone] Specialist Optometry 10/01/23 documented as of this encounter
--- OUTSIDE RECORDS SUMMARY | 2024-04-23 13:52 | XMS_ITS | Encounter Summary ---
Author Organization [facility] Address [address] [place] [address] Care Team Providers Care Gas Scrubber Operator Name Role Phone Teressa Solis DO Primary Care Pro vider Unavailable Mina Pretty DO Primary Care Provider Shweta Cronin MD Primary Care Provider Ora Diaz MD Primary Care Prov ider Jl Mendez MD Unavailable [phone] Jannette Boudreaux MD Unavailable [phone] Tenisha Mendieta PA-C Unavailable Julio Monk PA-C Unavailable Luis Armando Eller MD Unavailable [phone] Jayesh Pineda MD Unavailable Kelsi Tejada MD Unavailable Unavailable Pretty Le MD Unavailable Vesta Michael PA-C Unavailable [phone] [facility] Unavailable [phone] Reason for Visit * Reason Comments E-prescribe Rx Request Encounter Details Date Type Department Care Team Description 05/06/2020 Refill Medicine/Pediatrics - [address] [phone] Teressa Solis DO E-prescribe Rx Request Social [...] Telephone Encounter - Lubna Thornton M.A. - 05/06/2020 12:03 PM EST Lab Results Component Value Date NA 140 03/31/2020 K 4.4 03/31/2020 CO2 29 03/31/2020 CL 105 03/31/2020 BUN 10 03/31/2020 CREAT 0.70 03/31/2020 GLU 103 03/31/2020 CA 8.8 03/31/2020 GFR > 60 03/31/2020 Last appt with Deborah 03/25/20 * Telephone Encounter - Maeve Bautista - 05/06/2020 11:48 AM EST Patient would like script to be: E-PRESCRIBED/FAXED TO PHARMACY WHEN WAS THE PATIENT'S LAST APPOINTMENT IN ADULT MEDICINE? 04/09/2020 WHEN WAS THE LAST TIME THE PATIENT SAW THEIR PCP? 08/19/2019 Does patient have an upcoming appointment? No- patient will call to book appointment (THE MEDICATION REQUESTED IS ON THE MED [...] N/A Patients current insurance carrier is: Payor: [employer] FFS / Plan: [employer] ALLIANCE / Product Type: MEDICAID RISK documented in this encounter Plan of Treatment Not on file documented as of this encounter Visit Diagnoses Not on filedocumented in this encounter Care Teams Gas Scrubber Operator Relationship Specialty Start Date End Date Teressa Solis DO PCP - General Internal Medicine 12/18/13 09/15/20 Mina Pretty DO PCP - General Internal Medicine 09/16/20 Shweta Boucher MD PCP - General Internal Medicine 01/12/21 10/10/21 Ora Ronquillo MD [address] [place] [address] PCP - General Internal Medicine 10/11/21 Jl Mendez MD [address] [place] [address] Dr Mont[address] [place] [address] Specialist Cardiovascular Disease 10/13/21 Jannette Boudreaux MD [address] [address] Surgeon Neurosurgery 04/07/22 Tenisha Mendieta PA-C [address] [address] Specialist Neurosurgery 04/07/22 Julio Monk PA-C 175 [facility] [address] [place] [address] Specialist Neurosurgery 04/07/22 Luis Armando Eller MD [address] [address] Specialist ORTHOPEDIC SURGERY 10/01/23 Jayesh Pineda MD 305 [place] [address] Specialist Endocrinology 10/01/23 Kelsi Tejada MD 305 [place] [address] Specialist Allergy & Immunology 10/01/23 Pretty Le MD 175 [facility] [address] [place] [address] Specialist Pulmonology 10/01/23 Vesta Michael PA-C 300 [facility] 210 [place] [address] Specialist Vascular Surgery 10/01/23 [facility] 46 [place] [address] Specialist Optometry 10/01/23 documented as of this encounter
--- OUTSIDE RECORDS SUMMARY | 2024-04-23 13:52 | XMS_ITS | Encounter Summary ---
Author Organization [facility] Address [address] [place] [address] Care Team Providers Care Leach Cell Operator Name Role Phone Teressa Solis DO Primary Care Pro vider Unavailable Mina Pretty DO Primary Care Provider Shweta Cronin MD Primary Care Provider Ora Diaz MD Primary Care Prov ider Jl Mendez MD Unavailable [phone] Jannette Boudreaux MD Unavailable [phone] Tenisha Mendieta PA-C Unavailable [phone] Julio Monk PA-C Unavailable Luis Armando Eller MD Unavailable [phone] Jayesh Pineda MD Unavailable Kelsi Tejada MD Unavailable Unavailable Pretty Le MD Unavailable Vesta Michael PA-C Unavailable [phone] [facility] Unavailable Reason for Visit * Reason Onset Date Comments Prior Authorization 04/14/2020 Encounter Details Date Type Department Care Team Description 04/14/2020 Telephone Gastroenterology [facility] 175 [facility] [address] [place] [address] Luis Armando Staton MD Prior Authorization Social History Tobacco Use Types [...] Telephone Encounter - Naomy Mendoza M.A. - 08/31/2020 3:31 PM EDT Approved on July 23 Start Date:07/23/2020 End Date:07/23/2021; * Telephone Encounter - Naomy Mendoza M.A. - 04/15/2020 12:18 PM EST Prior authorization for the pantoprazole 40 mg bid completed today on cover my meds Pt was taking 20 mg bid previously. DX Gastroesophageal reflux disease without esophagitis Continuation of therapy * Telephone Encounter - Jennifer Mcguire - 04/14/2020 8:56 AM EST Prior Authorization for Medication-do not complete and send this encounter unless you have the fax from the pharmacy. Is this a Cover My Meds request: Yes -- [place] Code [id number] Name of Medication pantoprazole Dose of Medication 40MG DR What is the RX # from the faxed refill? How does patient take this med? What Pharmacy did the fax come from: [facility] fax #: [phone] [employer] Party Information from fax: What Prescription Plan does the patient have? BIN/PCN if applicable: Cardholder ID: [id number] Person Code: Relationship Code: Help desk phone: [phone] documented in this encounter Plan of Treatment Not on file documented as of this encounter Visit Diagnoses Not on filedocumented in this encounter Care Teams Leach Cell Operator Relationship Specialty Start Date End Date Teressa Solis DO PCP - General Internal Medicine 12/18/13 09/15/20 Mina Pretty DO PCP - General Internal Medicine 09/16/20 Shweta Boucher MD PCP - General Internal Medicine 01/12/21 10/10/21 Ora Ronquillo MD 444 [place] [address] PCP - General Internal Medicine 10/11/21 Jl Mendez MD [address] [place] [address] Dr Montiel [address] [place] [address] Specialist Cardiovascular Disease 10/13/21 Jannette Boudreaux MD [address] [address] Surgeon Neurosurgery 04/07/22 Tenisha Mendieta PA-C [address] [address] Specialist Neurosurgery 04/07/22 Julio Monk PA-C [address] [address] Specialist Neurosurgery 04/07/22 Luis Armando Eller MD [address] [address] Specialist ORTHOPEDIC SURGERY 10/01/23 Jayesh Pineda MD 305 [place] [address] Specialist Endocrinology 10/01/23 Kelsi Tejada MD 305 [place] [address] Specialist Allergy & Immunology 10/01/23 Pretty Le MD 175 [facility] [address] [place] [address] Specialist Pulmonology 10/01/23 Vesta Michael PA-C 300 [facility] 210 [place] [address] Specialist Vascular Surgery 10/01/23 [facility] 46 [place], [place] [address] Specialist Optometry 10/01/23 documented as of this encounter
--- OUTSIDE RECORDS SUMMARY | 2024-04-23 13:52 | XMS_ITS | Encounter Summary ---
Author Organization [facility] Address [address] [place] [address] Care Team Providers Care Planishing Hammer Operator Name Role Phone Ora Ronquillo MD Primary Care Prov ider Jl Mendez MD Unavailable Jannette Boudreaux MD Unavailable [phone] Tenisha Mendieta PA-C Unavailable [phone] Julio Monk PA-C Unavailable [phone] Luis Armando Eller MD Unavailable [phone] Jayesh Pineda MD Unavailable Kelsi Tejada MD Unavailable Unavailable Pretty Le MD Unavailable Vesta Michael PA-C Unavailable [phone] [facility] Unavailable [phone] Encounter Details Date Type Department Care Team Description 07/12/2022 Refill Pulmonology - [place] 175 [facility] [address] [place] [phone] Michael Saldana MD Social History Tobacco Use Types Packs/Day Years Used Date Smoking Tobacco: Never Smokeless Tobacco: Never Alcohol Use Standard Drinks/Week Comments No 0 (1 standard drink = 0.6 oz pur e alcohol) Education Answer Date Recorded What is the highest level of school you have completed or the highest degree you have received? 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, COMMUNITY FACILITATOR, CHANDRAKANT) 06/14/2020 Sex Assigned at Date Recorded [...] complicated documented in this encounter Care Teams Planishing Hammer Operator Relationship Specialty Start Date End Date Ora Ronquillo MD [address] [place] [address] PCP - General Internal Medicine 10/11/21 Jl Mendez MD [address] [place] [address] Dr Mont[address] [place] [address] Specialist Cardiovascular Disease 10/13/21 Jannette Boudreaux MD [address] [address] Surgeon Neurosurgery 04/07/22 Tenisha Mendieta PA-C [address] [address] Specialist Neurosurgery 04/07/22 Julio Monk PA-C [address] [address] Specialist Neurosurgery 04/07/22 Luis Armando Eller MD [address] [address] Specialist ORTHOPEDIC SURGERY 10/01/23 Jayesh Pineda MD 305 [place] [address] Specialist Endocrinology 10/01/23 Kelsi Tejada MD 305 [place] [address] Specialist Allergy & Immunology 10/01/23 Pretty Le MD 175 [facility] [address] [place] [address] Specialist Pulmonology 10/01/23 Vesta Michael PA-C 300 [facility] [address] [place] [address] Specialist Vascular Surgery 10/01/23 [facility] [address] [place] [address] Specialist Optometry 10/01/23 documented as of this encounter
--- OUTSIDE RECORDS SUMMARY | 2024-04-23 13:52 | XMS_ITS | Encounter Summary ---
Author Organization [facility] Address [address] [place] [address] Care Team Providers Care Sack Lifter Name Role Phone Ora Ronquillo MD Primary Care Prov ider Jl Mendez MD Unavailable [phone] Jannette Boudreaux MD Unavailable [phone] Tenisha Mendieta-C Unavailable Julio Monk-C Unavailable Luis Armando Eller MD Unavailable [phone] Jayesh Pineda MD Unavailable Kelsi Tejada MD Unavailable Unavailable Pretty Le MD Unavailable Vesta Michael PA-C Unavailable [facility] Unavailable Reason for Visit * Reason Onset Date Comments Surgery (Schedule) 11/22/2023 Encounter Details Date Type Department Care Team Description 11/22/2023 Telephone [facility] 175 [facility] [address] [place] [address] Luis Armando Eller MD 175 [facility] [address] [place] [id number] Surgery (Schedule) Social History Tobacco Use Types Packs/Day Years Used Date Smoking Tobacco: Never Smokeless Tobacco: Never Alcohol Use Standard Drinks/Week Comments No 0 (1 standard drink = 0.6 oz pur e alcohol) Education Answer Date Recorded What is the highest level of school you have completed or the highest degree you have received? 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, HAY BUCKLER, CHANDRAKANT) 06/14/2020 Sex Assigned at Date Recorded [...] would send a message. Please advise. Thanks, Dejah documented in this encounter Plan of Treatment Not on file documented as of this encounter Visit Diagnoses Not on filedocumented in this encounter Care Teams Sack Lifter Relationship Specialty Start Date End Date Ora Ronquillo MD 4 [place] [address] PCP - General Internal Medicine 10/11/21 Jl Mendez MD [address] [place] [address] Dr Mont[address] [place] [address] Specialist Cardiovascular Disease 10/13/21 Jannette Boudreaux MD 175 [facility] [address] [place] [address] Surgeon Neurosurgery 04/07/22 Tenisha Mendieta PA-C 175 [facility] [address] [place] [address] Specialist Neurosurgery 04/07/22 Julio Monk PA-C 175 [facility] 300 [place] [address] Specialist Neurosurgery 04/07/22 Luis Armando Eller MD 175 [facility] 250 [place] [address] Specialist ORTHOPEDIC SURGERY 10/01/23 Jayesh Pineda MD 305 [place] [address] Specialist Endocrinology 10/01/23 Kelsi Tejada MD 305 [place] [address] Specialist Allergy & Immunology 10/01/23 Pretty Le MD 175 [facility] 200 [place] [phone] Specialist Pulmonology 10/01/23 Vesta Michael PA-C 300 [facility] 210 [place] [address] Specialist Vascular Surgery 10/01/23 [facility] [address] [place] [address] Specialist Optometry 10/01/23 documented as of this encounter
--- OUTSIDE RECORDS SUMMARY | 2024-04-23 13:52 | XMS_ITS | Encounter Summary ---
Author Organization [facility] Address [address] [place] [address] Care Team Providers Care Mortgage Or Loan Underwriter Name Role Phone Ora Ronquillo MD Primary Care Prov ider Jl Mendez MD Unavailable [phone] Jannette Boudreaux MD Unavailable [phone] Tenisha Mendieta PA-C Unavailable Julio Monk PA-C Unavailable Luis Armando Eller MD Unavailable [phone] Jayesh Pineda MD Unavailable Kelsi Tejada MD Unavailable Unavailable Pretty Le MD Unavailable Vesta Michael PA-C Unavailable [facility] Unavailable Encounter Details Date Type Department Care Team Description 11/19/2023 SCAN [facility] Medical [facility] 175 [facility] [address] [place] [phone] Lorie Moore, DONN 1515 [facility] [place] [address] Social History Tobacco Use Types Packs/Day Years Used Date Smoking Tobacco: Never Smokeless Tobacco: Never Alcohol Use Standard Drinks/Week Comments No 0 (1 standard drink = 0.6 oz pur e alcohol) Education Answer Date Recorded What is the highest level of school you have completed or the highest degree you have received? 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, LOFT WORKER, CHANDRAKANT) 06/14/2020 Sex Assigned at Date Recorded Female 08/03/2020 10:16 PM EDT Job Start Date Occupation Industry Not on file Not on file Not on file documented as of this encounter Plan of Treatment Not on file documented as of this encounter Visit Diagnoses Not on filedocumented in this encounter Care Teams Mortgage Or Loan Underwriter Relationship Specialty Start Date End Date Ora Ronquillo MD [address] [place] [address] PCP - General Internal Medicine 10/11/21 Jl Mendez MD [address] [place] [address] Dr Mont[address] [place] [address] Specialist Cardiovascular Disease 10/13/21 Jannette Boudreaux MD [address] [address] Surgeon Neurosurgery 04/07/22 Tenisha Mendieta PA-C [address] [address] Specialist Neurosurgery 04/07/22 Julio Monk PA-C 175 [facility] 300 [place] [address] Specialist Neurosurgery 04/07/22 Luis Armando Eller MD [address] [address] Specialist ORTHOPEDIC SURGERY 10/01/23 Jayesh Pineda MD 305 [place] [address] Specialist Endocrinology 10/01/23 Kelsi Tejada MD 305 [place] [address] Specialist Allergy & Immunology 10/01/23 Pretty Le MD 175 [facility] 200 [place] [address] Specialist Pulmonology 10/01/23 Vesta Michael PA-C 300 [facility] 210 [place] [address] Specialist Vascular Surgery 10/01/23 [facility] 46 [place] [address] Specialist Optometry 10/01/23 documented as of this encounter
--- OUTSIDE RECORDS SUMMARY | 2024-04-23 13:52 | XMS_ITS | Encounter Summary ---
Author Organization [facility] Address [address] [place] [address] Care Team Providers Care Medical Device Sales Consultant Name Role Phone Teressa Solis DO Primary Care Pro vider Unavailable Mina Pretty DO Primary Care Provider Shweta Cronin MD Primary Care Provider Ora Diaz MD Primary Care Prov ider Jl Mendez MD Unavailable [phone] Jannette Boudreaux MD Unavailable [phone] Tenisha Mendieta PA-C Unavailable [phone] Julio Monk PA-C Unavailable Luis Armando Eller MD Unavailable [phone] Jayesh Pineda MD Unavailable Kelsi Tejada MD Unavailable Unavailable Pretty Le MD Unavailable Vesta Michael PA-C Unavailable [phone] [facility] Unavailable [phone] Encounter Details Date Type Department Care Team Description 04/19/2020 Historical Interpreter Report Medical Records 4 [place] [address] Jose Daniel Nguyễn MD Social History Tobacco [...] on filedocumented in this encounter Care Teams Medical Device Sales Consultant Relationship Specialty Start Date End Date Teressa Solis DO PCP - General Internal Medicine 12/18/13 09/15/20 Mina Pretty DO PCP - General Internal Medicine 09/16/20 Shweta Boucher MD PCP - General Internal Medicine 01/12/21 10/10/21 Ora Ronquillo MD [address] [place] [address] PCP - General Internal Medicine 10/11/21 Jl Mendez MD [address] [place] [address] Dr Mont[address] [place] [address] Specialist Cardiovascular Disease 10/13/21 Jannette Boudreaux MD [address] [address] Surgeon Neurosurgery 04/07/22 Tenisha Mendieta PA-C [address] [address] Specialist Neurosurgery 04/07/22 Julio Monk PA-C 175 [facility] [address] [place] [address] Specialist Neurosurgery 04/07/22 Luis Armando Eller MD [address] [address] Specialist ORTHOPEDIC SURGERY 10/01/23 Jayesh Pineda MD [address] [place] [address] Specialist Endocrinology 10/01/23 Kelsi Tejada MD 305 [place] [address] Specialist Allergy & Immunology 10/01/23 Pretty Le MD 175 [facility] [address] [place] [address] Specialist Pulmonology 10/01/23 Vesta Michael PA-C 300 [facility] 210 [place] [address] Specialist Vascular Surgery 10/01/23 [facility] 46 [place] [address] Specialist Optometry 10/01/23 documented as of this encounter
--- OUTSIDE RECORDS SUMMARY | 2024-04-23 13:52 | XMS_ITS | Encounter Summary ---
Author Organization [facility] Address [address] [place] [address] Care Team Providers Care Home Visits Nurse Name Role Phone Teressa Solis DO Primary Care Pro vider Unavailable Mina Pretty DO Primary Care Provider Ailyn Shweta Pretty MD Primary Care Provider Ora Diaz MD Primary Care Prov ider Jl Mendez MD Unavailable Jannette Boudreaux MD Unavailable [phone] Tenisha Mendieta PA-C Unavailable Julio Monk PA-C Unavailable Luis Armando Eller MD Unavailable [phone] Jayesh Pineda MD Unavailable Kelsi Tejada MD Unavailable Unavailable Pretty Le MD Unavailable Vesta Michael PA-C Unavailable [phone] [facility] Unavailable [phone] Encounter Details Date Type Department Care Team Description 06/24/2019 Telephone [facility] [place] 175 [facility] [address] [place] [address] Luis Armando Staton MD Social [...] on filedocumented in this encounter Care Teams Home Visits Nurse Relationship Specialty Start Date End Date Teressa Solis, DO PCP - General Internal Medicine 12/18/13 09/15/20 Mina Pretty DO PCP - General Internal Medicine 09/16/20 1 Shweta Tellez MD PCP - General Internal Medicine 01/12/21 10/10/21 Ora Ronquillo MD [address] [place] [address] PCP - General Internal Medicine 10/11/21 Jl Mendez MD [address] [place] [address] Dr Mont[address] [place] [address] Specialist Cardiovascular Disease 10/13/21 Jannette Boudreaux MD [address] [address] Surgeon Neurosurgery 04/07/22 Tenisha Mendieta PA-C [address] [address] Specialist Neurosurgery 04/07/22 Julio Monk PA-C 175 [facility] [address] [place] [address] Specialist Neurosurgery 04/07/22 Luis Armando Eller MD [address] [address] Specialist ORTHOPEDIC SURGERY 10/01/23 Jayesh Pineda MD 305 [place] [address] Specialist Endocrinology 10/01/23 Kelsi Tejada MD 305 [place] [address] Specialist Allergy & Immunology 10/01/23 Pretty Le MD 175 [facility] [address] [place] [address] Specialist Pulmonology 10/01/23 Vesta Michael PA-C 300 [facility] 210 [place] [address] Specialist Vascular Surgery 10/01/23 [facility] 46 [place] [address] Specialist Optometry 10/01/23 documented as of this encounter
--- OUTSIDE RECORDS SUMMARY | 2024-04-23 13:52 | XMS_ITS | Encounter Summary ---
Author Organization [facility] Address [address] [place] [address] Care Team Providers Care Surgical Supply Assistant Name Role Phone Ora Ronquillo MD Primary Care Prov ider Jl Mendez MD Unavailable Jannette Boudreaux MD Unavailable [phone] Tenisha Mendieta-C Unavailable [phone] Julio Monk PA-C Unavailable Luis Armando Eller MD Unavailable [phone] Jayesh Pineda MD Unavailable Kelsi Tejada MD Unavailable Unavailable Pretty Le MD Unavailable Vesta Michael PA-C Unavailable [phone] [facility] Unavailable Encounter Details Date Type Department Care Team Description 11/14/2023 SCAN [facility] Medical [facility] [address] [facility] [address] [place] [phone] Lorie Moore, DONN 1515 [facility] [place] [address] Social History Tobacco Use Types Packs/Day Years Used Date Smoking Tobacco: Never Smokeless Tobacco: Never Alcohol Use Standard Drinks/Week Comments No 0 (1 standard drink = 0.6 oz pur e alcohol) Education Answer Date Recorded What is the highest level of school you have completed or the highest degree you have received? 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, FUNERAL CAR DRIVER, CHANDRAKANT) 06/14/2020 Sex Assigned at Date Recorded Female 08/03/2020 10:16 PM EDT Job Start Date Occupation Industry Not on file Not on file Not on file documented as of this encounter Plan of Treatment Not on file documented as of this encounter Visit Diagnoses Not on filedocumented in this encounter Care Teams Surgical Supply Assistant Relationship Specialty Start Date End Date Ora Ronquillo MD 444 [place] [address] PCP - General Internal Medicine 10/11/21 Jl Mendez MD [address] [place] [address] Dr Mont[address] [place] [address] Specialist Cardiovascular Disease 10/13/21 Jannette Boudreaux MD [address] [address] Surgeon Neurosurgery 04/07/22 Tenisha Mendieta PA-C [address] [address] Specialist Neurosurgery 04/07/22 Julio Monk PA-C 175 [facility] 300 [place] [address] Specialist Neurosurgery 04/07/22 Luis Armando Eller MD [address] [address] Specialist ORTHOPEDIC SURGERY 10/01/23 Jayesh Pineda MD 305 [place] [address] Specialist Endocrinology 10/01/23 Kelsi Tejada MD 305 [place] [address] Specialist Allergy & Immunology 10/01/23 Pretty Le MD 175 [facility] 200 [place] [address] Specialist Pulmonology 10/01/23 Vesta Michael PA-C 300 [facility] 210 [place] [address] Specialist Vascular Surgery 10/01/23 [facility] 46 [place] [address] Specialist Optometry 10/01/23 documented as of this encounter
--- OUTSIDE RECORDS SUMMARY | 2024-04-23 13:52 | XMS_ITS | Encounter Summary ---
Author Organization [facility] Address [address] [place] [address] Care Team Providers Care Air Launch Weapons Technician Name Role Phone Ora Ronquillo MD Primary Care Prov ider Jl Mendez MD Unavailable [phone] Jannette Boudreaux MD Unavailable [phone] Tenisha MendietaC Unavailable Julio Monk-C Unavailable Luis Armando Eller MD Unavailable [phone] Jayesh Pineda MD Unavailable Kelsi Tejada MD Unavailable Unavailable Pretty Le MD Unavailable Vesta Michael PA-C Unavailable [facility] Unavailable Reason for Visit * Reason Onset Date Comments Surgery (Schedule) 10/10/2023 Encounter Details Date Type Department Care Team Description 10/10/2023 Telephone [facility] Medical [facility] 175 [facility] [address] [place] [address] Luis Armando Eller MD 175 [facility] [address] [place] [id number] Surgery (Schedule) Social History Tobacco Use Types Packs/Day Years Used Date Smoking Tobacco: Never Smokeless Tobacco: Never Alcohol Use Standard Drinks/Week Comments No 0 (1 standard drink = 0.6 oz pur e alcohol) Education Answer Date Recorded What is the highest level of school you have completed or the highest degree you have received? 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, FORGESMITH, CHANDRAKANT) 06/14/2020 Sex Assigned at Date Recorded Female 08/03/2020 10:16 PM EDT Job Start Date Occupation Industry Not on file Not on file Not on file documented as of this encounter Miscellaneous Notes * Telephone Encounter - Dejah [place] - 10/10/2023 10:12 AM EDT Hello- Patient called just now, wanting to cancel her surgery. Patient stated family emergency Patient will call back at some point to reschedule. Left RTC Dejah Walton documented in this encounter Plan of Treatment Not on file documented as of this encounter Visit Diagnoses Not on filedocumented in this encounter Care Teams Air Launch Weapons Technician Relationship Specialty Start Date End Date Ora Ronquillo MD 444 [place] [address] PCP - General Internal Medicine 10/11/21 Jl Mendez MD [address] [place] [address] Dr Mont[address] [place] [address] Specialist Cardiovascular Disease 10/13/21 Jannette Boudreaux MD [address] [address] Surgeon Neurosurgery 04/07/22 Tenisha Mendieta PA-C [address] [address] Specialist Neurosurgery 04/07/22 Julio Monk PA-C 175 [facility] 300 [place] [address] Specialist Neurosurgery 04/07/22 Luis Armando Eller MD [address] [address] Specialist ORTHOPEDIC SURGERY 10/01/23 Jayesh Pineda MD 305 [place] [address] Specialist Endocrinology 10/01/23 Kelsi Tejada MD 305 [place] [address] Specialist Allergy & Immunology 10/01/23 Pretty Le MD [address] [facility] [address] [place] [address] Specialist Pulmonology 10/01/23 Vesta Michael PA-C 300 [facility] 210 [place] [address] Specialist Vascular Surgery 10/01/23 [facility] 46 [place] [address] Specialist Optometry 10/01/23 documented as of this encounter
--- OUTSIDE RECORDS SUMMARY | 2024-04-23 13:52 | XMS_ITS | Encounter Summary ---
Author Organization [facility] Address [address] [place] [address] Care Team Providers Care Associate Professor Of Literacy Name Role Phone Ora Ronquillo MD Primary Care Prov ider Jl Mendez MD Unavailable [phone] Jannette Boudreaux MD Unavailable [phone] Tenisha Mendieta PA-C Unavailable Julio Monk PA-C Unavailable [phone] Luis Armando Eller MD Unavailable [phone] Jayesh Pineda MD Unavailable Kelsi Tejada MD Unavailable Unavailable Pretty Le MD Unavailable Vesta Michael PA-C Unavailable [phone] [facility] Unavailable Encounter Details Date Type Department Care Team Description 11/02/2023 SCAN [facility] Medical [facility] 175 [facility] [address] [place] [phone] Lorie Moore, DONN 1515 [facility] [place] [address] Social History Tobacco Use Types Packs/Day Years Used Date Smoking Tobacco: Never Smokeless Tobacco: Never Alcohol Use Standard Drinks/Week Comments No 0 (1 standard drink = 0.6 oz pur e alcohol) Education Answer Date Recorded What is the highest level of school you have completed or the highest degree you have received? 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, DOOR LINER, CHANDRAKANT) 06/14/2020 Sex Assigned at Date Recorded Female 08/03/2020 10:16 PM EDT Job Start Date Occupation Industry Not on file Not on file Not on file documented as of this encounter Plan of Treatment Not on file documented as of this encounter Visit Diagnoses Not on filedocumented in this encounter Care Teams Associate Professor Of Literacy Relationship Specialty Start Date End Date Ora Ronquillo MD 444 [place] [address] PCP - General Internal Medicine 10/11/21 Jl Mendez MD [address] [place] [address] Dr Mont[address] [place] [address] Specialist Cardiovascular Disease 10/13/21 Jannette Boudreaux MD [address] [address] Surgeon Neurosurgery 04/07/22 Tenisha Mendieta PA-C [address] [address] Specialist Neurosurgery 04/07/22 Julio Monk PA-C 175 [facility] 300 [place] [address] Specialist Neurosurgery 04/07/22 Luis Armando Eller MD [address] [address] Specialist ORTHOPEDIC SURGERY 10/01/23 Jayesh Pineda MD 305 [place] [address] Specialist Endocrinology 10/01/23 Kelsi Tejada MD 305 [place] [address] Specialist Allergy & Immunology 10/01/23 Pretty Le MD 175 [facility] 200 [place] [address] Specialist Pulmonology 10/01/23 Vesta Michael PA-C 300 [facility] 210 [place] [address] Specialist Vascular Surgery 10/01/23 [facility] 46 [place] [address] Specialist Optometry 10/01/23 documented as of this encounter
--- OUTSIDE RECORDS SUMMARY | 2024-04-23 13:52 | XMS_ITS | Encounter Summary ---
Author Organization [facility] Address [address] [place] [address] Care Team Providers Care Chef Passenger Vessel Name Role Phone Teressa Solis DO Primary Care Pro vider Unavailable Mina Pretty DO Primary Care Provider Ailyn Shweta Pretty MD Primary Care Provider UnaOra Randall MD Primary Care Prov ider Jl Mendez MD Unavailable [phone] Jannette Boudreaux MD Unavailable [phone] Tenisha Mendieta PA-C Unavailable Julio Monk PA-C Unavailable Luis Armando Eller MD Unavailable [phone] Jayesh Pineda MD Unavailable Kelsi Tejada MD Unavailable Unavailable Pretty Le MD Unavailable Vesta Michael PA-C Unavailable [facility] Unavailable [phone] Reason for Referral * Specialist (Routine) - Authorized/Booked Specialty Diagnoses / Procedures Referred By Janie castillo Referred To Contact ORTHOPEDICS / Orthopedic Procedures REFERRAL TO ORTHOPEDICS Teressa Solis DO [address] [place] [address] Jl Chou MD 175 [facility] [address] [place] [address] Referral ID Status Reason Start Date Expiration Date V isits Requested Visits Authorized SEE NOTE Authorized/B ooked 10/20/2014 01/21/2015 1 1 Encounter Details Date Type Department Care Team Description 10/20/2014 Orders Only Adult Medicine [facility] 444 [place] [address] Teressa Solis DO Bilateral carpal tunnel syndrome [...] syndrome documented in this encounter Care Teams Chef Passenger Vessel Relationship Specialty Start Date End Date Teressa Solis DO PCP - General Internal Medicine 12/18/13 09/15/20 Mina Pretty DO PCP - General Internal Medicine 09/16/20 Shweta Boucher MD PCP - General Internal Medicine 01/12/21 10/10/21 Ora Ronquillo MD 444 [place] [address] PCP - General Internal Medicine 10/11/21 Jl Mendez MD [address] [place] [address] [place] [address] Specialist Cardiovascular Disease 10/13/21 Jannette Boudreaux MD [address] [address] Surgeon Neurosurgery 04/07/22 Tenisha Mendieta PA-C [address] [address] Specialist Neurosurgery 04/07/22 Julio Monk PA-C 175 [facility] [address] [place] [address] Specialist Neurosurgery 04/07/22 Luis Armando Eller MD 175 [facility] [address] [place] [address] Specialist ORTHOPEDIC SURGERY 10/01/23 Jayesh Pineda MD 305 [place] [address] Specialist Endocrinology 10/01/23 Kelsi Tejada MD 305 [place] [address] Specialist Allergy & Immunology 10/01/23 Pretty Le MD 175 [facility] [address] [place] [address] Specialist Pulmonology 10/01/23 Vesta Michael PA-C 300 [facility] [address] [place] [address] Specialist Vascular Surgery 10/01/23 [facility] 46 [place] [address] Specialist Optometry 10/01/23 documented as of this encounter
--- OUTSIDE RECORDS SUMMARY | 2024-04-23 13:52 | XMS_ITS | Encounter Summary ---
Author Organization [facility] Address [address] [place] [address] Care Team Providers Care Road Roller Engineer Name Role Phone Shewta Tellez MD Primary Care Provider Ora Diaz MD Primary Care Prov ider Jl Mendez MD Unavailable [phone] Jannette Boudreaux MD Unavailable [phone] Tenisha Mendieta PA-C Unavailable [phone] Julio Monk PA-C Unavailable Luis Armando Eller MD Unavailable [phone] Jayesh Pineda MD Unavailable Kelsi Tejada MD Unavailable Unavailable Pretty Le MD Unavailable Vesta Michael-C Unavailable [phone] [facility] Unavailable [phone] Encounter Details Date Type Department Care Team Description 09/22/2021 Hospital Medical Records [address] [place] [address] Ching Boo MD Social History Tobacco Use Types Packs/Day Years Used Date Smoking Tobacco: Never Smokeless Tobacco: Never Alcohol Use Standard Drinks/Week Comments No 0 (1 standard drink = 0.6 oz pur e alcohol) Education Answer Date Recorded What is the highest level of school you have completed or the highest degree you have received? 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, JAVA TECH LEAD, CHANDRAKANT) 06/14/2020 Sex Assigned at Date Recorded [...] on filedocumented in this encounter Care Teams Road Roller Engineer Relationship Specialty Start Date End Date Shweta Tellez MD PCP - General Internal Medicine 01/12/21 10/10/21 Hiwot Couch, Ora Kelly MD [address] [place] [address] PCP - General Internal Medicine 10/11/21 Jl Mendez MD [address] [place] [address] Dr Mont[address] [place] [address] Specialist Cardiovascular Disease 10/13/21 Jannette Boudreaux MD [address] [address] Surgeon Neurosurgery 04/07/22 Tenisha Mendieta PA-C [address] [address] Specialist Neurosurgery 04/07/22 Julio Monk PA-C 175 [facility] [address] [place] [address] Specialist Neurosurgery 04/07/22 Luis Armando Eller MD [address] [address] Specialist ORTHOPEDIC SURGERY 10/01/23 Jayesh Pineda MD 305 [place] [address] Specialist Endocrinology 10/01/23 Kelsi Tejada MD 305 [place] [address] Specialist Allergy & Immunology 10/01/23 Pretty Le MD 175 [facility] [address] [place] [address] Specialist Pulmonology 10/01/23 Vesta Michael PA-C 300 [facility] [address] [place] [address] Specialist Vascular Surgery 10/01/23 [facility] 46 [place] [address] Specialist Optometry 10/01/23 documented as of this encounter
--- OUTSIDE RECORDS SUMMARY | 2024-04-23 13:52 | XMS_ITS | Encounter Summary ---
Author Organization [facility] Address [address] [place] [address] Care Team Providers Care Pipe Machine Operator Name Role Phone Ora Ronquillo MD Primary Care Prov ider Jl Mendez MD Unavailable Jannette Boudreaux MD Unavailable [phone] Tenisha Mendieta PA-C Unavailable Julio Monk PA-C Unavailable Luis Armando Eller MD Unavailable [phone] Jayesh Pineda MD Unavailable Kelsi Tejada MD Unavailable Unavailable Pretty Le MD Unavailable Vesta Michael PA-C Unavailable [facility] Unavailable Encounter Details Date Type Department Care Team Description 04/10/2022 SCAN [facility] Medical [facility] Neurosurgery [place] [address] [facility] [address] [place] [phone] Tenisha Mendieta PA-C [address] [id number] Social History Tobacco Use Types Packs/Day Years Used Date Smoking Tobacco: Never Smokeless Tobacco: Never Alcohol Use Standard Drinks/Week Comments No 0 (1 standard drink = 0.6 oz pur e alcohol) Education Answer Date Recorded What is the highest level of school you have completed or the highest degree you have received? 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, DELIVERY ROOM CLERK, CHANDRAKANT) 06/14/2020 Sex Assigned at Date Recorded [...] on filedocumented in this encounter Care Teams Pipe Machine Operator Relationship Specialty Start Date End Date Ora Ronquillo MD [address] [place] [address] PCP - General Internal Medicine 10/11/21 Jl Mendez MD [address] [place] [address] Dr Mont[address] [place] [address] Specialist Cardiovascular Disease 10/13/21 Jannette Boudreaux MD [address] [address] Surgeon Neurosurgery 04/07/22 Tenisha Mendieta PA-C [address] [address] Specialist Neurosurgery 04/07/22 Julio Monk PA-C [address] [facility] [address] [place] [address] Specialist Neurosurgery 04/07/22 Luis Armando Eller MD [address] [address] Specialist ORTHOPEDIC SURGERY 10/01/23 Jayesh Pineda MD [address] [place] [address] Specialist Endocrinology 10/01/23 Kelsi Tejada MD 305 [place] [address] Specialist Allergy & Immunology 10/01/23 Pretty Le MD 175 [facility] [address] [place] [address] Specialist Pulmonology 10/01/23 Vesta Michael PA-C 300 [facility] 210 [place] [address] Specialist Vascular Surgery 10/01/23 [facility] [address] [place] [address] Specialist Optometry 10/01/23 documented as of this encounter
--- OUTSIDE RECORDS SUMMARY | 2024-04-23 13:52 | XMS_ITS | Encounter Summary ---
Author Organization [facility] Address [address] [place] [address] Care Team Providers Care Manager Code Name Role Phone Shweta Tellez MD Primary Care Provider Ora Diaz MD Primary Care Prov ider Jl Mendez MD Unavailable [phone] Jannette Boudreaux MD Unavailable [phone] Tenisha Mendieta PA-C Unavailable Julio Monk PA-C Unavailable [phone] Luis Armando Eller MD Unavailable [phone] Jayesh Pineda MD Unavailable Kelsi Tejada MD Unavailable Unavailable Pretty Le MD Unavailable Vesta Michael PA-C Unavailable [phone] [facility] Unavailable [phone] Reason for Visit * Reason Onset Date Comments heartburn 08/31/2021 Encounter Details Date Type Department Care Team Description 08/31/2021 Telephone Adult Medicine [address] [id number] Shweta Tellez MD heartburn Social History Tobacco Use Types Packs/Day Years Used Date Smoking Tobacco: Never Smokeless Tobacco: Never Alcohol Use Standard Drinks/Week Comments No 0 (1 standard drink = 0.6 oz pur e alcohol) Education Answer Date Recorded What is the highest level of school you have completed or the highest degree you have received? 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, TELEGRAPH INSPECTOR, CHANDRAKANT) 06/14/2020 Sex Assigned at Date [...] patient she was seen last weekend in [facility] on Sunday for her GERD. Was advised [...] traveled recently to another state outside of [place], [place], [place], [place], [place], [place], [place]? NO o If yes, did you [...] vehicle accident? NO If yes, gather 3rd democrat insurance information Date of accident/Injury: How long has patient had these symptoms?: 1.5 weeks PCP: Shweta Tellez Payor: [employer] FFS / Plan: eFans / Product Type: MEDICAID RISK documented in this encounter Plan of Treatment Not on file documented as of this encounter Visit Diagnoses Not on filedocumented in this encounter Care Teams Manager Code Relationship Specialty Start Date End Date Shweta Tellez MD PCP - General Internal Medicine 01/12/21 10/10/21 Ora Ronquillo MD [address] [place] [address] PCP - General Internal Medicine 10/11/21 Jl Mendez MD [address] [place] [address] [place] [address] Specialist Cardiovascular Disease 10/13/21 Jannette Boudreaux MD [address] [address] Surgeon Neurosurgery 04/07/22 Tenisha Mendieta PA-C [address] [address] Specialist Neurosurgery 04/07/22 Julio Monk PA-C [address] [address] Specialist Neurosurgery 04/07/22 Luis Armando Eller MD 175 [facility] [address] [place] [address] Specialist ORTHOPEDIC SURGERY 10/01/23 Jayesh Pineda MD 305 [place] [address] Specialist Endocrinology 10/01/23 Kelsi Tejada MD 305 [place] [address] Specialist Allergy & Immunology 10/01/23 Pretty Le MD 175 [facility] [address] [place] [address] Specialist Pulmonology 10/01/23 Vesta Michael PA-C 300 [facility] [address] [place] [address] Specialist Vascular Surgery 10/01/23 [facility] 46 [place] [address] Specialist Optometry 10/01/23 documented as of this encounter
--- OUTSIDE RECORDS SUMMARY | 2024-04-23 13:52 | XMS_ITS | Encounter Summary ---
Author Organization [facility] Address [address] [place] [address] Care Team Providers Care Stranding Machine Operator Helper Name Role Phone Teressa Solis DO Primary Care Pro vider Unavailable Mina Pretty DO Primary Care Provider Shweta Cronin MD Primary Care Provider Ora Diaz MD Primary Care Prov ider Jl Mendez MD Unavailable Jannette Boudreaux MD Unavailable [phone] Tenisha Mendieta PA-C Unavailable Julio Monk PA-C Unavailable [phone] Luis Armando Eller MD Unavailable [phone] Jayesh Pineda MD Unavailable Kelsi Tejada MD Unavailable Unavailable Pretty Le MD Unavailable Vesta Michael PA-C Unavailable [facility] Unavailable [phone] Encounter Details Date Type Department Care Team Description 02/04/2018 Telephone Adult Medicine - [place] 305 [place] [address] Dez Tristan MD Social History [...] PM EDT Dez Tristan MD LAB [facility] * CALCIUM,TOTAL (06/07/2018 2:45 PM EDT) CALCIUM 9.5 8.5 - 10.5 mg/dL 06/07/2018 5:41 PM EDT [facility] 06/07/2018 2:45 PM EDT 06/07/2018 2:48 PM EDT [facility] Tr[facility] documented in this encounter Visit Diagnoses Diagnosis Hypercalcemia- Primary documented in this encounter Care Teams Stranding Machine Operator Helper Relationship Specialty Start Date End Date Teressa Solis DO PCP - General Internal Medicine 12/18/13 09/15/20 Mina Pretty DO PCP - General Internal Medicine 09/16/20 1 Shweta Tellez MD PCP - General Internal Medicine 01/12/21 10/10/21 Ora Ronquillo MD [address] [place] [address] PCP - General Internal Medicine 10/11/21 Jl Mendez MD [address] [place] [address] [place] [address] Specialist Cardiovascular Disease 10/13/21 Jannette Boudreaux MD 175 [facility] 300 [place] [address] Surgeon Neurosurgery 04/07/22 Tenisha Mendieta PA-C 175 [facility] 300 [place] [address] Specialist Neurosurgery 04/07/22 Julio Monk PA-C 175 [facility] 300 [place] [address] Specialist Neurosurgery 04/07/22 Luis Armando Eller MD 175 [facility] 250 [place] [address] Specialist ORTHOPEDIC SURGERY 10/01/23 Jayesh Pineda MD 305 [place] [address] Specialist Endocrinology 10/01/23 Kelsi Tejada MD 305 [place] [address] Specialist Allergy & Immunology 10/01/23 Pretty Le MD [address] [facility] 200 [place] [address] Specialist Pulmonology 10/01/23 Vesta Michael PA-C 300 [facility] 210 [place] [address] Specialist Vascular Surgery 10/01/23 [facility] 46 [place] [address] Specialist Optometry 10/01/23 documented as of this encounter
--- OUTSIDE RECORDS SUMMARY | 2024-04-23 13:52 | XMS_ITS | Encounter Summary ---
Author Organization [facility] Address [address] [place] [address] Care Team Providers Care Floor Coverings Salesperson Name Role Phone Teressa oSlis DO Primary Care Pro vider Unavailable Mina Pretty DO Primary Care Provider Shweta Cronin MD Primary Care Provider Ora Diaz MD Primary Care Prov ider Jl Mendez MD Unavailable Jannette Boudreaux MD Unavailable [phone] Tenisha Mendieta PA-C Unavailable [phone] Julio Monk PA-C Unavailable [phone] Luis Armando Eller MD Unavailable [phone] Jayesh Pineda MD Unavailable Kelsi Tejada MD Unavailable Unavailable Pretty Le MD Unavailable Vesta Michael PA-C Unavailable [phone] [facility] Unavailable [phone] Encounter Details Date Type Department Care Team Description 12/21/2017 [facility] Report Medical Records [address] [place] [address] Narinder Franco MD Social History Tobacco Use [...] on filedocumented in this encounter Care Teams Floor Coverings Salesperson Relationship Specialty Start Date End Date Teressa Solis DO PCP - General Internal Medicine 12/18/13 09/15/20 Mina Pretty DO PCP - General Internal Medicine 09/16/20 Shweta Boucher MD PCP - General Internal Medicine 01/12/21 10/10/21 Ora Ronquillo MD [address] [place] [address] PCP - General Internal Medicine 10/11/21 Jl Mendez MD [address] [place] [address] Specialist Cardiovascular Disease 10/13/21 Jannette Boudreaux MD [address] [address] Surgeon Neurosurgery 04/07/22 Tenisha Mendieta PA-C [address] [address] Specialist Neurosurgery 04/07/22 Julio Monk PA-C [address] [address] Specialist Neurosurgery 04/07/22 Luis Armando Eller MD [address] [address] Specialist ORTHOPEDIC SURGERY 10/01/23 Jayesh Pineda MD 305 [place] [address] Specialist Endocrinology 10/01/23 Kelsi Tejada MD 305 [place] [address] Specialist Allergy & Immunology 10/01/23 Pretty Le MD 175 [facility] [address] [place] [address] Specialist Pulmonology 10/01/23 Vesta Michael PA-C 300 [facility] 210 [place] [address] Specialist Vascular Surgery 10/01/23 [facility] 46 [place] [address] Specialist Optometry 10/01/23 documented as of this encounter
--- OUTSIDE RECORDS SUMMARY | 2024-04-23 13:52 | XMS_ITS | Encounter Summary ---
Author Organization [facility] Address [address] [place] [address] Care Team Providers Care Geometrician Name Role Phone Ora Ronquillo MD Primary Care Prov ider Jl Mendez MD Unavailable [phone] Jannette Boudreaux MD Unavailable [phone] Tenisha Mendieta PA-C Unavailable Julio Monk PA-C Unavailable Luis Armando Eller MD Unavailable [phone] Jayesh Pineda MD Unavailable Kelsi Tejada MD Unavailable Unavailable Pretty Le MD Unavailable Vesta Michael PA-C Unavailable [facility] Unavailable Encounter Details Date Type Department Care Team Description 09/19/2023 Refill Endocrinology - [place] 444 [place] [address] Jayesh Pineda MD 305 [place], [place] [id number] Social History Tobacco Use Types Packs/Day Years Used Date Smoking Tobacco: Never Smokeless Tobacco: Never Alcohol Use Standard Drinks/Week Comments No 0 (1 standard drink = 0.6 oz pur e alcohol) Education Answer Date Recorded What is the highest level of school you have completed or the highest degree you have received? 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, FIGURE CLERK, CHANDRAKANT) 06/14/2020 Sex Assigned at Date [...] (HCC) documented in this encounter Care Teams Geometrician Relationship Specialty Start Date End Date Ora Ronquillo MD [address] [place] [address] PCP - General Internal Medicine 10/11/21 Jl Mendez MD [address] [place] [address] Dr Mont[address] [place] [address] Specialist Cardiovascular Disease 10/13/21 Janentte Boudreaux MD [address] [address] Surgeon Neurosurgery 04/07/22 Tenisha Mendieta PA-C [address] [address] Specialist Neurosurgery 04/07/22 Julio Monk PA-C 175 [facility] [address] [place] [address] Specialist Neurosurgery 04/07/22 Luis Armando Eller MD [address] [address] Specialist ORTHOPEDIC SURGERY 10/01/23 Jayesh Pineda MD 305 [place] [address] Specialist Endocrinology 10/01/23 Kelsi Tejada MD 305 [place] [address] Specialist Allergy & Immunology 10/01/23 Pretty Le MD 175 [facility] [address] [place] [address] Specialist Pulmonology 10/01/23 Vesta Michael PA-C 300 [facility] 210 [place] [address] Specialist Vascular Surgery 10/01/23 [facility] 46 [place] [address] Specialist Optometry 10/01/23 documented as of this encounter
--- OUTSIDE RECORDS SUMMARY | 2024-04-23 13:53 | XMS_ITS | Encounter Summary ---
Author Organization [facility] Address [address] [place] [address] Care Team Providers Care Tank Worker Name Role Phone Ora Ronquillo MD Primary Care Prov ider Jl Mendez MD Unavailable [phone] Jannette Boudreaux MD Unavailable [phone] Tenisha Mendieta PA-C Unavailable Julio MonkC Unavailable Luis Armando Eller MD Unavailable [phone] Jayesh Pineda MD Unavailable Kelsi Tejada MD Unavailable Unavailable Pretty Le MD Unavailable Vesta Michael PA-Pina Unavailable [phone] [facility] Unavailable [phone] Encounter Details Date Type Department Care Team Description 01/30/2022 [place] Report Medical Records [address] [place] [address] Kelsi Tejada MD Social History Tobacco Use Types Packs/Day Years Used Date Smoking Tobacco: Never Smokeless Tobacco: Never Alcohol Use Standard Drinks/Week Comments No 0 (1 standard drink = 0.6 oz pur e alcohol) Education Answer Date Recorded What is the highest level of school you have completed or the highest degree you have received? 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, RELEASE ENGINEER, CHANDRAKANT) 06/14/2020 Sex Assigned at Date Recorded Female 08/03/2020 10:16 PM EDT Job Start Date Occupation Industry Not on file Not on file Not on file documented as of this encounter Plan of Treatment Not on file documented as of this encounter Visit Diagnoses Not on filedocumented in this encounter Care Teams Tank Worker Relationship Specialty Start Date End Date Ora Ronquillo MD 444 [place] [address] PCP - General Internal Medicine 10/11/21 Jl Mendez MD [address] [place] [address] Dr Mont[address] [place] [address] Specialist Cardiovascular Disease 10/13/21 Jannette Boudreaux MD [address] [address] Surgeon Neurosurgery 04/07/22 Tenisha Mendieta PA-C 175 [facility] 300 [place] [address] Specialist Neurosurgery 04/07/22 Julio Monk PA-C 175 [facility] 300 [place] [address] Specialist Neurosurgery 04/07/22 Luis Armando Eller MD 175 [facility] 250 [place] [address] Specialist ORTHOPEDIC SURGERY 10/01/23 Jayesh Pineda MD 305 [place] [address] Specialist Endocrinology 10/01/23 Kelsi Tejada MD 305 [place] [address] Specialist Allergy & Immunology 10/01/23 Pretty Le MD 175 [facility] 200 [place] [address] Specialist Pulmonology 10/01/23 Vesta Michael PA-C 300 [facility] 210 [place] [address] Specialist Vascular Surgery 10/01/23 [facility] 46 [place] [address] Specialist Optometry 10/01/23 documented as of this encounter
--- OUTSIDE RECORDS SUMMARY | 2024-04-23 13:53 | XMS_ITS | Encounter Summary ---
Author Organization [facility] Address [address] [place] [address] Care Team Providers Care Salesperson Toy Trains And Accessories Name Role Phone Teressa Solis DO Primary Care Pro vider Unavailable Mina Pretty DO Primary Care Provider Shweta Cronin MD Primary Care Provider Ora Diaz MD Primary Care Prov ider Jl Mendez MD Unavailable Jannette Boudreaux MD Unavailable [phone] Tenisha Mendieta PA-C Unavailable Julio Monk PA-C Unavailable [phone] Luis Armando Eller MD Unavailable [phone] Jayesh Pineda MD Unavailable Kelsi Tejada MD Unavailable Unavailable Pretty Le MD Unavailable Vesta Michael PA-C Unavailable [phone] [facility] Unavailable [phone] Encounter Details Date Type Department Care Team Description 09/29/2019 Hospital Medical Records 4 [place] [address] Luis Armando [place] MD Social History Tobacco Use Types Packs/Day Years Used Date Smoking Tobacco: Never Smokeless Tobacco: Never Alcohol Use Standard Drinks/Week Comments No 0 (1 standard drink = 0.6 oz pur e alcohol) Education Answer Date Recorded What is the highest level of school you have completed or the highest degree you have received? 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, STORE LEAD, CHANDRAKANT) 06/14/2020 Sex Assigned at Date Recorded Female 08/03/2020 10:16 PM EDT Job Start Date Occupation Industry Not on file Not on file Not on file documented as of this encounter Plan of Treatment Not on file documented as of this encounter Visit Diagnoses Not on filedocumented in this encounter Care Teams Salesperson Toy Trains And Accessories Relationship Specialty Start Date End Date Teressa Solis DO PCP - General Internal Medicine 12/18/13 09/15/20 Mina Pretty DO PCP - General Internal Medicine 09/16/20 Shweta Boucher MD PCP - General Internal Medicine 01/12/21 10/10/21 Ora Ronquillo MD [address] [place] [address] PCP - General Internal Medicine 10/11/21 Jl Mendez MD [address] [place] [address] Dr Mont[address] [place] [address] Specialist Cardiovascular Disease 10/13/21 Jannette Boudreaux MD [address] [address] Surgeon Neurosurgery 04/07/22 Tenisha Mendieta PA-C [address] [address] Specialist Neurosurgery 04/07/22 Julio Monk PA-C 175 [facility] [address] [place] [address] Specialist Neurosurgery 04/07/22 Luis Armando Eller MD [address] [address] Specialist ORTHOPEDIC SURGERY 10/01/23 Jayesh Pineda MD 305 [place] [address] Specialist Endocrinology 10/01/23 Kelsi Tejada MD 305 [place] [address] Specialist Allergy & Immunology 10/01/23 Pretty Le MD 175 [facility] [address] [place] [address] Specialist Pulmonology 10/01/23 Vesta Michael PA-C 300 [facility] 210 [place] [address] Specialist Vascular Surgery 10/01/23 [facility] 46 [place] [address] Specialist Optometry 10/01/23 documented as of this encounter
--- OUTSIDE RECORDS SUMMARY | 2024-04-23 13:53 | XMS_ITS | Encounter Summary ---
Author Organization [facility] Address [address] [place] [address] Care Team Providers Care Distribution Supervisor Name Role Phone Shweta Tellez MD Primary Care Provider Ora Diaz MD Primary Care Prov ider Jl Mendez MD Unavailable [phone] Jannette Boudreaux MD Unavailable [phone] Tenisha Mendieta PA-C Unavailable [phone] Julio Monk PA-C Unavailable Luis Armando Eller MD Unavailable [phone] Jayesh Pineda MD Unavailable Kelsi Tejada MD Unavailable Unavailable Pretty Le MD Unavailable Vesta Michael PA-C Unavailable [phone] [facility] Unavailable [phone] Encounter Details Date Type Department Care Team Description 09/09/2021 Hospital Medical Records [address] [place] [address] [facility] Social History Tobacco Use Types Packs/Day Years Used Date Smoking Tobacco: Never Smokeless Tobacco: Never Alcohol Use Standard Drinks/Week Comments No 0 (1 standard drink = 0.6 oz pur e alcohol) Education Answer Date Recorded What is the highest level of school you have completed or the highest degree you have received? 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, MARKETING PRODUCTION SPECIALIST, CHANDRAKANT) 06/14/2020 Sex Assigned at Date [...] on filedocumented in this encounter Care Teams Distribution Supervisor Relationship Specialty Start Date End Date Shweta Tellez MD PCP - General Internal Medicine 01/12/21 10/10/21 Ora Ronquillo MD [address] [place] [address] PCP - General Internal Medicine 10/11/21 Jl Mendez MD [address] [place] [address] [place] [address] Specialist Cardiovascular Disease 10/13/21 Jannette Boudreaux MD [address] [address] Surgeon Neurosurgery 04/07/22 Tenisha Mendieta PA-C 175 [facility] 300 [place] [address] Specialist Neurosurgery 04/07/22 Julio Monk PA-C 175 [facility] 300 [place] [address] Specialist Neurosurgery 04/07/22 Luis Armando Eller MD 175 [facility] 250 [place] [address] Specialist ORTHOPEDIC SURGERY 10/01/23 Jayesh Pineda MD 305 [place] [address] Specialist Endocrinology 10/01/23 Kelsi Tejada MD 305 [place] [address] Specialist Allergy & Immunology 10/01/23 Pretty Le MD 175 [facility] 200 [place] [address] Specialist Pulmonology 10/01/23 Vesta Michael PA-C 300 [facility] 210 [place] [address] Specialist Vascular Surgery 10/01/23 [facility] 46 [place] [address] Specialist Optometry 10/01/23 documented as of this encounter
--- OUTSIDE RECORDS SUMMARY | 2024-04-23 13:53 | XMS_ITS | Encounter Summary ---
Author Organization [facility] Address [address] [place] [address] Care Team Providers Care Special Effects Makeup Artist Name Role Phone Teressa Solis DO Primary Care Pro vider Unavailable Mina Pretty DO Primary Care Provider Ailyn Shweta Pretty MD Primary Care Provider UnaOra Randall MD Primary Care Prov ider Jl Mendez MD Unavailable Jannette Boudreaux MD Unavailable [phone] Tenisha Mendieta PA-C Unavailable Julio Monk PA-C Unavailable Luis Armando Eller MD Unavailable [phone] Jayesh Pineda MD Unavailable Kelsi Tejada MD Unavailable Unavailable Pretty Le MD Unavailable Vesta Michael PA-C Unavailable [facility] Unavailable [phone] Reason for Referral * (Priority) - Closed Specialty Diagnoses / Procedures Referred By Janie castillo Referred To Contact ORTHOPEDICS / Orthopedic Procedures REFERRAL TO ORTHOPEDICS (OUT OF NETWORK) Teressa Solis DO [address] [place] [address] External Orthopedics Referral ID Status Reason Start Date Expiration Date V isits Requested Visits Authorized SEE REVIEW ON 09/19/2019 Closed 09/18/2019 1 1 Reason for Visit * Reason Onset Date Comments REFERRAL 09/03/2019 Encounter Details Date Type Department Care Team Description 09/03/2019 Pt. Non Urgent Medic al Question Adult Medicine [address] [address] Teressa Solis DO Social History Tobacco Use [...] 2019 1:09 AM EDT Please clarfiy which [facility] Dr. Beatty is affiliated with * Sarah Farias M.A. - 09/04/2019 10:59 AM EDTFrom: Ana Luisa House To: Teressa Grace DO Sent: 09/03/2019 11:41 PM EDT Subject: Referral Hi, Dr. Ramos My daughter sister in law, wants me to be seen by her Dr. Sal Beatty in [place], [place]. He reconstructed her hip. She said [...] need to contact me, my phone is [phone]. Thanks for supporting in this. Ana Luisa documented in this encounter Plan of Treatment Not on file documented as of this encounter Visit Diagnoses Not on filedocumented in this encounter Care Teams Special Effects Makeup Artist Relationship Specialty Start Date End Date Teressa Solis DO PCP - General Internal Medicine 12/18/13 09/15/20 Mina Pretty DO PCP - General Internal Medicine 09/16/20 1 Shweta Tellez MD PCP - General Internal Medicine 01/12/21 10/10/21 Ora Ronquillo MD [address] [place] [address] PCP - General Internal Medicine 10/11/21 Jl Mendez MD [address] [place] [address] Dr Mont[address] [place] [address] Specialist Cardiovascular Disease 10/13/21 Jannette Boudreaux MD [address] [address] Surgeon Neurosurgery 04/07/22 Tenisha Mendieta PA-C [address] [address] Specialist Neurosurgery 04/07/22 Julio Monk PA-C [address] [address] Specialist Neurosurgery 04/07/22 Luis Armando Eller MD [address] [address] Specialist ORTHOPEDIC SURGERY 10/01/23 Jayesh Pineda MD 305 [place] [address] Specialist Endocrinology 10/01/23 Kelsi Tejada MD 305 [place] [address] Specialist Allergy & Immunology 10/01/23 Pretty Le MD 175 [facility] 200 [place] [address] Specialist Pulmonology 10/01/23 Vesta Michael PA-C 300 [facility] 210 [place] [address] Specialist Vascular Surgery 10/01/23 [facility] 46 [place] [address] Specialist Optometry 10/01/23 documented as of this encounter
--- OUTSIDE RECORDS SUMMARY | 2024-04-23 13:53 | XMS_ITS | Encounter Summary ---
Author Organization [facility] Address [address] [place] [address] Care Team Providers Care Veterinary Assistant Name Role Phone Teressa Solis DO Primary Care Pro vider Unavailable Mina Pretty DO Primary Care Provider Ailyn Shweta Pretty MD Primary Care Provider Ora Diaz MD Primary Care Prov ider Jl Mendez MD Unavailable Jannette Boudreaux MD Unavailable [phone] Tenisha Mendieta PA-C Unavailable Julio Monk PA-C Unavailable [phone] Luis Armando Eller MD Unavailable [phone] Jayesh Pineda MD Unavailable Kelsi Tejada MD Unavailable Unavailable Pretty Le MD Unavailable Vesta Michael PA-C Unavailable [facility] Unavailable Reason for Visit * Reason Onset Date Comments other 11/25/2019 covid screen Encounter Details Date Type Department Care Team Description 11/25/2019 Telephone Vascular Surgery - [place] [address] [place] [address] Vesta Michael PA-C 300 [facility] [address] [place] [address] other (covid screen) Social History [...] on filedocumented in this encounter Care Teams Veterinary Assistant Relationship Specialty Start Date End Date Teressa Solis DO PCP - General Internal Medicine 12/18/13 09/15/20 Mina Pretty DO PCP - General Internal Medicine 09/16/20 1 Shweta Tellez MD PCP - General Internal Medicine 01/12/21 10/10/21 Ora Ronquillo MD [address] [place] [address] PCP - General Internal Medicine 10/11/21 Jl Mendez MD [address] [place] [address] [place] [address] Specialist Cardiovascular Disease 10/13/21 Jannette Boudreaux MD [address] [address] Surgeon Neurosurgery 04/07/22 Tenisha Mendieta PA-C 175 [facility] 300 [place] [address] Specialist Neurosurgery 04/07/22 Julio Monk PA-C 175 [facility] 300 [place] [address] Specialist Neurosurgery 04/07/22 Luis Armando Eller MD 175 [facility] 250 [place] [address] Specialist ORTHOPEDIC SURGERY 10/01/23 Jayesh Pineda MD 305 [place] [address] Specialist Endocrinology 10/01/23 Kelsi Tejada MD 305 [place] [address] Specialist Allergy & Immunology 10/01/23 Pretty Le MD 175 [facility] 200 [place] [address] Specialist Pulmonology 10/01/23 Vesta Michael PA-C 300 [facility] 210 [place] [address] Specialist Vascular Surgery 10/01/23 [facility] 46 [place] [address] Specialist Optometry 10/01/23 documented as of this encounter
--- OUTSIDE RECORDS SUMMARY | 2024-04-23 13:53 | XMS_ITS | Encounter Summary ---
Author Organization [facility] Address [address] [place] [address] Care Team Providers Care Correspondence School Instructor Name Role Phone Teressa Solis DO Primary Care Pro vider Unavailable Mina Pretty DO Primary Care Provider Shweta Cronin MD Primary Care Provider Ora Diaz MD Primary Care Prov ider Jl Mendez MD Unavailable Jannette Bodureaux MD Unavailable [phone] Tenisha Mendieta PA-C Unavailable [phone] Julio Monk PA-C Unavailable [phone] Luis Armando Eller MD Unavailable [phone] Jayesh Pineda MD Unavailable Kelsi Tejada MD Unavailable Unavailable Pretty Le MD Unavailable Vesta Michael PA-C Unavailable [phone] [facility] Unavailable [phone] Encounter Details Date Type Department Care Team Description 07/21/2019 Hospital Medical Records [address] [place] [address] [facility] Social History Tobacco Use Types Packs/Day Years Used Date Smoking Tobacco: Never Smokeless Tobacco: Never Alcohol Use Standard Drinks/Week Comments No 0 (1 standard drink = 0.6 oz pur e alcohol) Education Answer Date Recorded What is the highest level of school you have completed or the highest degree you have received? 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, MEAT CARRIER, CHANDRAKANT) 06/14/2020 Sex Assigned at Date Recorded Female 08/03/2020 10:16 PM EDT Job Start Date Occupation Industry Not on file Not on file Not on file documented as of this encounter Plan of Treatment Not on file documented as of this encounter Visit Diagnoses Not on filedocumented in this encounter Care Teams Correspondence School Instructor Relationship Specialty Start Date End Date Teressa Solis, PCP - General Internal Medicine 12/18/13 09/15/20 Mina Pretty DO PCP - General Internal Medicine 09/16/20 Shweta Boucher MD PCP - General Internal Medicine 01/12/21 10/10/21 Ora Ronquillo MD [address] [place] [address] PCP - General Internal Medicine 10/11/21 Jl Mendez MD [address] [place] [address] Dr Montiel [address] [place] [address] Specialist Cardiovascular Disease 10/13/21 Jannette Boudreaux MD [address] [address] Surgeon Neurosurgery 04/07/22 Tenisha Mendieta PA-C [address] [address] Specialist Neurosurgery 04/07/22 Julio Monk PA-C 175 [facility] [address] [place] [address] Specialist Neurosurgery 04/07/22 Luis Armando Eller MD [address] [address] Specialist ORTHOPEDIC SURGERY 10/01/23 Jayesh Pineda MD [address] [place] [address] Specialist Endocrinology 10/01/23 Kelsi Tejada MD 305 [place] [address] Specialist Allergy & Immunology 10/01/23 Pretty Le MD 175 [facility] [address] [place] [address] Specialist Pulmonology 10/01/23 Vesta Michael PA-C 300 [facility] [address] [place] [address] Specialist Vascular Surgery 10/01/23 [facility] 46 [place], [place] [address] Specialist Optometry 10/01/23 documented as of this encounter
--- OUTSIDE RECORDS SUMMARY | 2024-04-23 13:53 | XMS_ITS | Encounter Summary ---
Author Organization [facility] Address [address] [place] [address] Care Team Providers Care Cushion Stuffer Name Role Phone Teressa Solis DO Primary Care Pro vider Unavailable Mina Pretty DO Primary Care Provider Shweta Cronin MD Primary Care Provider Ora Diaz MD Primary Care Prov ider Jl Mendez MD Unavailable Jannette Boudreaux MD Unavailable [phone] Tenisha Mendieta PA-C Unavailable Julio Monk PA-C Unavailable Luis Armando Eller MD Unavailable [phone] Jayesh Pineda MD Unavailable Kelsi Tejada MD Unavailable Unavailable Pretty Le MD Unavailable Vesta Michael PA-C Unavailable [phone] [facility] Unavailable [phone] Encounter Details Date Type Department Care Team Description 07/25/2019 Hospital Medical Records 4 [place] [address] [facility] Social History Tobacco Use Types Packs/Day Years Used Date Smoking Tobacco: Never Smokeless Tobacco: Never Alcohol Use Standard Drinks/Week Comments No 0 (1 standard drink = 0.6 oz pur e alcohol) Education Answer Date Recorded What is the highest level of school you have completed or the highest degree you have received? 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, ASSISTANT PROFESSOR OF HISTORY, CHANDRAKANT) 06/14/2020 Sex Assigned at Date Recorded Female 08/03/2020 10:16 PM EDT Job Start Date Occupation Industry Not on file Not on file Not on file documented as of this encounter Plan of Treatment Not on file documented as of this encounter Visit Diagnoses Not on filedocumented in this encounter Care Teams Cushion Stuffer Relationship Specialty Start Date End Date Teressa Solis, PCP - General Internal Medicine 12/18/13 09/15/20 Mina Pretty DO PCP - General Internal Medicine 09/16/20 Shweta Boucher MD PCP - General Internal Medicine 01/12/21 10/10/21 Ora Ronquillo MD [address] [place] [address] PCP - General Internal Medicine 10/11/21 Jl Mendez MD [address] [place] [address] Dr Mont[address] [place] [address] Specialist Cardiovascular Disease 10/13/21 Jannette Boudreaux MD [address] [address] Surgeon Neurosurgery 04/07/22 Tenisha Mendieta PA-C [address] [address] Specialist Neurosurgery 04/07/22 Julio Monk PA-C 175 [facility] [address] [place] [address] Specialist Neurosurgery 04/07/22 Luis Armando Eller MD [address] [address] Specialist ORTHOPEDIC SURGERY 10/01/23 Jayesh Pineda MD [address] [place] [address] Specialist Endocrinology 10/01/23 Kelsi Tejada MD 305 [place] [address] Specialist Allergy & Immunology 10/01/23 Pretty Le MD 175 [facility] [address] [place] [address] Specialist Pulmonology 10/01/23 Vesta Michael PA-C 300 [facility] [address] [place] [address] Specialist Vascular Surgery 10/01/23 [facility] 46 [place], [place] [address] Specialist Optometry 10/01/23 documented as of this encounter
--- OUTSIDE RECORDS SUMMARY | 2024-04-23 13:53 | XMS_ITS | Encounter Summary ---
Author Organization [facility] Address [address] [place] [address] Care Team Providers Care Plant Technician Name Role Phone Teressa Solis DO Primary Care Pro vider Unavailable Mina Pretty DO Primary Care Provider Shweta Cronin MD Primary Care Provider Ora Diaz MD Primary Care Prov ider Jl Mendez MD Unavailable [phone] Jannette Boudreaux MD Unavailable [phone] Tenisha Mendieta PA-C Unavailable Julio Monk PA-C Unavailable Luis Armando Eller MD Unavailable [phone] Jayesh Pineda MD Unavailable Kelsi Tejada MD Unavailable Unavailable Pretty Le MD Unavailable Vesta Michael PA-C Unavailable [facility] Unavailable Reason for Visit * Reason Onset Date Comments refill request 08/21/2019 Encounter Details Date Type Department Care Team Description 08/21/2019 Refill Adult Urgent Care - [address] [address] Dez Tristan MD refill request Social History [...] on filedocumented in this encounter Care Teams Plant Technician Relationship Specialty Start Date End Date Teressa Solis DO PCP - General Internal Medicine 12/18/13 09/15/20 Mina Pretty DO PCP - General Internal Medicine 09/16/20 Shweta Boucher MD PCP - General Internal Medicine 01/12/21 10/10/21 Ora Ronquillo MD [address] [place] [address] PCP - General Internal Medicine 10/11/21 Jl Mendez MD [address] [place] [address] Dr Mont[address] [place] [address] Specialist Cardiovascular Disease 10/13/21 Jannette Boudreaux MD [address] [address] Surgeon Neurosurgery 04/07/22 Tenisha Mendieta PA-C [address] [address] Specialist Neurosurgery 04/07/22 Julio Monk PA-C [address] [place] [address] Specialist Neurosurgery 04/07/22 Luis Armando Eller MD 175 [facility] [place] [facility] 250 [place] [address] Specialist ORTHOPEDIC SURGERY 10/01/23 Jayesh Pineda MD 305 [place] [address] Specialist Endocrinology 10/01/23 Kelsi Tejada MD 305 [place] [address] Specialist Allergy & Immunology 10/01/23 Pretty Le MD 175 [facility] 200 [place] [address] Specialist Pulmonology 10/01/23 Vesta Michael PA-C 300 [facility] 210 [place] [address] Specialist Vascular Surgery 10/01/23 [facility] 46 [place] [address] Specialist Optometry 10/01/23 documented as of this encounter
--- OUTSIDE RECORDS SUMMARY | 2024-04-23 13:53 | XMS_ITS | Encounter Summary ---
Author Organization [facility] Address [address] [place] [address] Care Team Providers Care Fondant Cooker Name Role Phone Teressa Solis DO Primary Care Pro vider Unavailable Mina Pretty DO Primary Care Provider Shweta Cronin MD Primary Care Provider Ora Diaz MD Primary Care Prov ider Jl Mendez MD Unavailable Jannette Boudreaux MD Unavailable [phone] Tenisha Mendieta PA-C Unavailable [phone] Julio Monk PA-C Unavailable Luis Armando Eller MD Unavailable [phone] Jayesh Pineda MD Unavailable Kelsi Tejada MD Unavailable Unavailable Pretty Le MD Unavailable Vesta Michael PA-C Unavailable [facility] Unavailable [phone] Encounter Details Date Type Department Care Team Description 07/21/2019 Orders Only Adult Medicine B - [place] [address] [place], [place] [id number] Dez Tristan MD Vitamin D deficiency (Primary [...] deficiency documented in this encounter Care Teams Fondant Cooker Relationship Specialty Start Date End Date Teressa Solis DO PCP - General Internal Medicine 12/18/13 09/15/20 Mina Pretty DO PCP - General Internal Medicine 09/16/20 Shweta Boucher MD PCP - General Internal Medicine 01/12/21 10/10/21 Ora Ronquillo MD 444 [place] [address] PCP - General Internal Medicine 10/11/21 Jl Mendez MD [address] [place] [address] Dr Mont[address] [place] [address] Specialist Cardiovascular Disease 10/13/21 Jannette Boudreaux MD [address] [address] Surgeon Neurosurgery 04/07/22 Tenisha Mendieta PA-C [address] [address] Specialist Neurosurgery 04/07/22 Julio Monk PA-C 175 [facility] [address] [place] [address] Specialist Neurosurgery 04/07/22 Luis Armando Eller MD [address] [address] Specialist ORTHOPEDIC SURGERY 10/01/23 Jayesh Pineda MD 305 [place] [address] Specialist Endocrinology 10/01/23 Kelsi Tejada MD 305 [place] [address] Specialist Allergy & Immunology 10/01/23 Pretty Le MD 175 [facility] [address] [place] [address] Specialist Pulmonology 10/01/23 Vesta Michael PA-C 300 [facility] 210 [place] [address] Specialist Vascular Surgery 10/01/23 [facility] 46 [place] [address] Specialist Optometry 10/01/23 documented as of this encounter
--- OUTSIDE RECORDS SUMMARY | 2024-04-23 13:53 | XMS_ITS | Encounter Summary ---
Author Organization [facility] Address [address] [place] [address] Care Team Providers Care Tmh Teacher Name Role Phone Teressa Solis DO Primary Care Pro vider Unavailable Mina Pretty DO Primary Care Provider Shweta Cronin MD Primary Care Provider Ora Diaz MD Primary Care Prov ider Jl Mendez MD Unavailable Jannette Boudreaux MD Unavailable [phone] Tenisha Mendieta PA-C Unavailable Julio Monk PA-C Unavailable Luis Armando Eller MD Unavailable [phone] Jayesh Pineda MD Unavailable Kelsi Tejada MD Unavailable Unavailable Pretty Le MD Unavailable Vesta Michael PA-C Unavailable [facility] Unavailable Encounter Details Date Type Department Care Team Description 03/26/2020 [employer] Sales Representative Report Medical Records 4 [place] [address] Randy Domínguez MD Social History Tobacco Use [...] on filedocumented in this encounter Care Teams Tmh Teacher Relationship Specialty Start Date End Date Teressa Solis DO PCP - General Internal Medicine 12/18/13 09/15/20 Mina Pretty DO PCP - General Internal Medicine 09/16/20 Shweta Boucher MD PCP - General Internal Medicine 01/12/21 10/10/21 Ora Ronquillo MD [address] [place] [address] PCP - General Internal Medicine 10/11/21 Jl Mendez MD [address] [place] [address] Dr Montiel [address] [place] [address] Specialist Cardiovascular Disease 10/13/21 Jannette Boudreaux MD [address] [address] Surgeon Neurosurgery 04/07/22 Tenisha Mendieta PA-C [address] [address] Specialist Neurosurgery 04/07/22 Julio Monk PA-C [address] [address] Specialist Neurosurgery 04/07/22 Luis Armando Eller MD [address] [address] Specialist ORTHOPEDIC SURGERY 10/01/23 Jayesh Pineda MD [address] [place] [address] [place] [address] Specialist Endocrinology 10/01/23 Kelsi Tejada MD 305 [place] [address] Specialist Allergy & Immunology 10/01/23 Pretty Le MD 175 [facility] [address] [place] [address] Specialist Pulmonology 10/01/23 Vesta Michael PA-C 300 [facility] 210 [place] [address] Specialist Vascular Surgery 10/01/23 [facility] 46 [place] [address] Specialist Optometry 10/01/23 documented as of this encounter
--- OUTSIDE RECORDS SUMMARY | 2024-04-23 13:53 | XMS_ITS | Encounter Summary ---
Author Organization [facility] Address [address] [place] [address] Care Team Providers Care Envelope Folding Machine Adjuster Name Role Phone Teressa Solis DO Primary Care Pro vider Unavailable Mina Pretty DO Primary Care Provider Shweta Cronin MD Primary Care Provider Ora Diaz MD Primary Care Prov ider Jl Mendez MD Unavailable [phone] Jannette Boudreaux MD Unavailable [phone] Tenisha Mendieta PA-C Unavailable Julio Monk PA-C Unavailable Luis Armando Eller MD Unavailable [phone] Jayesh Pineda MD Unavailable Kelsi Tejada MD Unavailable Unavailable Pretty Le MD Unavailable Vesta Michael PA-C Unavailable [phone] [facility] Unavailable [phone] Encounter Details Date Type Department Care Team Description 04/04/2020 Hospital Medical Records [address] [place] [address] Jose Gay, ROUGHER MACHINE OPERATOR Social History Tobacco Use Types Packs/Day Years Used Date Smoking Tobacco: Never Smokeless Tobacco: Never Alcohol Use Standard Drinks/Week Comments No 0 (1 standard drink = 0.6 oz pur e alcohol) Education Answer Date Recorded What is the highest level of school you have completed or the highest degree you have received? 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, FINANCIAL ADMINISTRATOR, CHANDRAKANT) 06/14/2020 Sex Assigned at Date Recorded [...] Name Priority Date/Time Associated Diagnosis Comments OUTSIDE PLAIN FILM Routine 04/02/2020 documented in this encounter Results * OUTSIDE PLAIN FILM (04/02/2020) Provider Abstract RADIOLOGY documented in this encounter Visit Diagnoses Not on filedocumented in this encounter Care Teams Envelope Folding Machine Adjuster Relationship Specialty Start Date End Date Teressa Solis DO PCP - General Internal Medicine 12/18/13 09/15/20 Mina Pretty DO PCP - General Internal Medicine 09/16/20 Shweta Boucher MD PCP - General Internal Medicine 01/12/21 10/10/21 Ora Ronquillo MD [address] [place] [address] PCP - General Internal Medicine 10/11/21 Jl Mendez MD [address] [place] [address] Dr Mont[address] [place] [address] Specialist Cardiovascular Disease 10/13/21 Jannette Boudreaux MD [address] [address] Surgeon Neurosurgery 04/07/22 Tenisha Mendieta PA-C 175 [facility] 300 [place] [address] Specialist Neurosurgery 04/07/22 Julio Monk PA-C 175 [facility] [address] [place] [address] Specialist Neurosurgery 04/07/22 Luis Armando Eller MD 175 [facility] [address] [place] [address] Specialist ORTHOPEDIC SURGERY 10/01/23 Jayesh Pineda MD 305 [place] [address] Specialist Endocrinology 10/01/23 Kelsi Tejada MD 305 [place] [address] Specialist Allergy & Immunology 10/01/23 Pretty Le MD 175 [facility] [address] [place] [address] Specialist Pulmonology 10/01/23 Vesta Michael PA-C 300 [facility] [address] [place] [address] Specialist Vascular Surgery 10/01/23 [facility] 46 [place] [address] Specialist Optometry 10/01/23 documented as of this encounter
--- OUTSIDE RECORDS SUMMARY | 2024-04-23 13:53 | XMS_ITS | Encounter Summary ---
Author Organization [facility] Address [address] [place] [address] Care Team Providers Care Transition Nurse Name Role Phone Teressa Solis DO Primary Care Pro vider Unavailable Mina Pretty DO Primary Care Provider Shweta Cronin MD Primary Care Provider Ora Diaz MD Primary Care Prov ider Jl Mendez MD Unavailable [phone] Jannette Boudreaux MD Unavailable [phone] Tenisha Mendieta PA-C Unavailable [phone] Julio Monk PA-C Unavailable Luis Armando Eller MD Unavailable [phone] Jayesh Pineda MD Unavailable Kelsi Tejada MD Unavailable Unavailable Pretty Le MD Unavailable Vesta Michael PA-C Unavailable [facility] Unavailable Encounter Details Date Type Department Care Team Description 03/01/2020 Contour Grinder Report Medical Records [address] [place] [address] Randy Domínguez MD Social History Tobacco Use [...] on filedocumented in this encounter Care Teams Transition Nurse Relationship Specialty Start Date End Date Teressa Solis DO PCP - General Internal Medicine 12/18/13 09/15/20 Mina Pretty DO PCP - General Internal Medicine 09/16/20 Shweta Boucher MD PCP - General Internal Medicine 01/12/21 10/10/21 Ora Ronquillo MD [address] [place] [address] PCP - General Internal Medicine 10/11/21 Jl Mendez MD [address] [place] [address] Specialist Cardiovascular Disease 10/13/21 Jannette Boudreaux MD [address] [address] Surgeon Neurosurgery 04/07/22 Tenisha Mendieta PA-C [address] [address] Specialist Neurosurgery 04/07/22 Julio Monk PA-C [address] [address] Specialist Neurosurgery 04/07/22 Luis Armando Eller MD [address] [address] Specialist ORTHOPEDIC SURGERY 10/01/23 Jayesh Pineda MD [address] [place] [address] Specialist Endocrinology 10/01/23 Kelsi Tejada MD 305 [place] [address] Specialist Allergy & Immunology 10/01/23 Pretty Le MD 175 [facility] [address] [place] [address] Specialist Pulmonology 10/01/23 Vesta Michael PA-C 300 [facility] 210 [place] [address] Specialist Vascular Surgery 10/01/23 [facility] [address] [place] [address] Specialist Optometry 10/01/23 documented as of this encounter
--- OUTSIDE RECORDS SUMMARY | 2024-04-23 13:53 | XMS_ITS | Encounter Summary ---
Author Organization [facility] Address [address] [place] [address] Care Team Providers Care Audio Visual Production Specialist Name Role Phone Teressa Solis DO Primary Care Pro vider Unavailable Mina Pretty DO Primary Care Provider Shweta Cronin MD Primary Care Provider Ora Diaz MD Primary Care Prov ider Jl Mendez MD Unavailable Jannette Boudreaux MD Unavailable [phone] Tenisha Mendieta PA-C Unavailable [phone] Julio Monk PA-C Unavailable Luis Armando Eller MD Unavailable [phone] Jayesh Pineda MD Unavailable Kelsi Tejada MD Unavailable Unavailable Pretty Le MD Unavailable Vesta Michael PA-C Unavailable [phone] [facility] Unavailable Encounter Details Date Type Department Care Team Description 02/06/2017 Lens Molder Report Medical Records [address] [place] [address] Jeff Ogden MD Social History Tobacco Use [...] in this encounter Care Teams Audio Visual Production Specialist Relationship Specialty Start Date End Date Teressa Solis DO PCP - General Internal Medicine 12/18/13 09/15/20 Mina Pretty DO PCP - General Internal Medicine 09/16/20 Shweta Boucher MD PCP - General Internal Medicine 01/12/21 10/10/21 Ora Ronquillo MD [address] [place] [address] PCP - General Internal Medicine 10/11/21 Jl Mendez MD [address] [place] [address] Specialist Cardiovascular Disease 10/13/21 Jannette Boudreaux MD [address] [address] Surgeon Neurosurgery 04/07/22 Tenisha Mendieta PA-C [address] [address] Specialist Neurosurgery 04/07/22 Julio Monk PA-C [address] [address] Specialist Neurosurgery 04/07/22 Luis Armando Eller MD [address] [address] Specialist ORTHOPEDIC SURGERY 10/01/23 Jayesh Pineda MD 305 [place] [address] Specialist Endocrinology 10/01/23 Kelsi Tejada MD 305 [place] [address] Specialist Allergy & Immunology 10/01/23 Pretty Le MD 175 [facility] [address] [place] [address] Specialist Pulmonology 10/01/23 Vesta Michael PA-C 300 [facility] 210 [place] [address] Specialist Vascular Surgery 10/01/23 [facility] [address] [place] [address] Specialist Optometry 10/01/23 documented as of this encounter
--- OUTSIDE RECORDS SUMMARY | 2024-04-23 13:53 | XMS_ITS | Encounter Summary ---
Author Organization [facility] Address [address] [place] [address] Care Team Providers Care Rags Laborer Name Role Phone Shweta Tellez MD Primary Care Provider Ora Diaz MD Primary Care Prov ider Jl Mendez MD Unavailable [phone] Jannette Boudreaux MD Unavailable [phone] Tenisha Mendieta PA-C Unavailable [phone] Julio Monk PA-C Unavailable Luis Armando Eller MD Unavailable [phone] Jayesh Pineda MD Unavailable Kelsi Tejada MD Unavailable Unavailable Pretty Le MD Unavailable Vesta Michael-C Unavailable [phone] [facility] Unavailable [phone] Encounter Details Date Type Department Care Team Description 10/06/2021 Engine Assembly Supervisor Report Medical Records [address] [place] [address] Jorge Belcher II Social History Tobacco Use Types Packs/Day Years Used Date Smoking Tobacco: Never Smokeless Tobacco: Never Alcohol Use Standard Drinks/Week Comments No 0 (1 standard drink = 0.6 oz pur e alcohol) Education Answer Date Recorded What is the highest level of school you have completed or the highest degree you have received? 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) 06/14/2020 Sex Assigned at Date [...] on filedocumented in this encounter Care Teams Rags Laborer Relationship Specialty Start Date End Date Shweta Tellez MD PCP - General Internal Medicine 01/12/21 10/10/21 Ora Ronquillo MD [address] [place] [address] PCP - General Internal Medicine 10/11/21 Jl Mendez MD [address] [place] [address] Dr Montiel [address] [place] [address] Specialist Cardiovascular Disease 10/13/21 Jannette Boudreaux MD [address] [address] Surgeon Neurosurgery 04/07/22 Tenisha Mendieta PA-C [address] [address] Specialist Neurosurgery 04/07/22 Julio Monk PA-C 175 [facility] [address] [place] [address] Specialist Neurosurgery 04/07/22 Luis Armando Eller MD [address] [address] Specialist ORTHOPEDIC SURGERY 10/01/23 Jayesh Pineda MD 305 [place] [address] Specialist Endocrinology 10/01/23 Kelsi Tejada MD 305 [place] [address] Specialist Allergy & Immunology 10/01/23 Pretty Le MD 175 [facility] [address] [place] [address] Specialist Pulmonology 10/01/23 Vesta Michael PA-C 300 [facility] [address] [place] [address] Specialist Vascular Surgery 10/01/23 [facility] [address] [place] [address] Specialist Optometry 10/01/23 documented as of this encounter
--- OUTSIDE RECORDS SUMMARY | 2024-04-23 13:53 | XMS_ITS | Encounter Summary ---
Author Organization [facility] Address [address] [place] [address] Care Team Providers Care Flap Maker Name Role Phone Ora Ronquillo MD Primary Care Prov ider Jl Mendez MD Unavailable Jannette Boudreaux MD Unavailable [phone] Tenisha Mendieta PA-C Unavailable Julio MonkC Unavailable Luis Armando Eller MD Unavailable [phone] Jayesh Pineda MD Unavailable Kelsi Tejada MD Unavailable Unavailable Pretty Le MD Unavailable Vesta Michael PA-Pina Unavailable [phone] [facility] Unavailable [phone] Encounter Details Date Type Department Care Team Description 02/09/2022 Water Engineer Report Medical Records [address] [place] [address] Jorge Belcher II Social History Tobacco Use Types Packs/Day Years Used Date Smoking Tobacco: Never Smokeless Tobacco: Never Alcohol Use Standard Drinks/Week Comments No 0 (1 standard drink = 0.6 oz pur e alcohol) Education Answer Date Recorded What is the highest level of school you have completed or the highest degree you have received? 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, [employer]ETING, CHANDRAKANT) 06/14/2020 Sex Assigned at Date Recorded Female 08/03/2020 10:16 PM EDT Job Start Date Occupation Industry Not on file Not on file Not on file documented as of this encounter Plan of Treatment Not on file documented as of this encounter Visit Diagnoses Not on filedocumented in this encounter Care Teams Flap Maker Relationship Specialty Start Date End Date Ora Ronquillo MD [address] [place] [address] PCP - General Internal Medicine 10/11/21 Jl Mendez MD [address] [place] [address] Dr [address] [place] [address] Specialist Cardiovascular Disease 10/13/21 Jannette Boudreaux MD [address] [address] Surgeon Neurosurgery 04/07/22 Tenisha Mendieta PA-C [address] [address] Specialist Neurosurgery 04/07/22 Julio Monk PA-C 175 [facility] 300 [place] [address] Specialist Neurosurgery 04/07/22 Luis Armando Eller MD 175 [facility] 250 [place] [address] Specialist ORTHOPEDIC SURGERY 10/01/23 Jayesh Pineda MD 305 [place] [address] Specialist Endocrinology 10/01/23 Kelsi Tejada MD 305 [place] [address] Specialist Allergy & Immunology 10/01/23 Pretty Le MD 175 [facility] 200 [place] [address] Specialist Pulmonology 10/01/23 Vesta Michael PA-C 300 [facility] 210 [place] [address] Specialist Vascular Surgery 10/01/23 [facility] [address] [place], [place] [address] Specialist Optometry 10/01/23 documented as of this encounter
--- OUTSIDE RECORDS SUMMARY | 2024-04-23 13:53 | XMS_ITS | Encounter Summary ---
Author Organization [facility] Address [address] [place] [address] Care Team Providers Care Pulp Beater Name Role Phone Teressa Solis DO Primary Care Pro vider Unavailable Mina Pretty DO Primary Care Provider Shweta Cronin MD Primary Care Provider Ora Diaz MD Primary Care Prov ider Jl Mendez MD Unavailable Jannette Boudreaux MD Unavailable [phone] Tenisha Mendieta PA-C Unavailable Julio Monk PA-C Unavailable Luis Armando Eller MD Unavailable [phone] Jayesh Pineda MD Unavailable Kelsi Tejada MD Unavailable Unavailable Pretty Le MD Unavailable Vesta Michael PA-C Unavailable [phone] [facility] Unavailable [phone] Encounter Details Date Type Department Care Team Description 04/25/2017 Hospital Medical Records [address] [place] [address] Jovanny Strange Social History Tobacco Use Types Packs/Day Years Used Date Smoking Tobacco: Never Smokeless Tobacco: Never Alcohol Use Standard Drinks/Week Comments No 0 (1 standard drink = 0.6 oz pur e alcohol) Education Answer Date Recorded What is the highest level of school you have completed or the highest degree you have received? 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) 06/14/2020 Sex Assigned at Date Recorded Female 08/03/2020 10:16 PM EDT Job Start Date Occupation Industry Not on file Not on file Not on file documented as of this encounter Plan of Treatment Not on file documented as of this encounter Visit Diagnoses Not on filedocumented in this encounter Care Teams Pulp Beater Relationship Specialty Start Date End Date Teressa Solis, PCP - General Internal Medicine 12/18/13 09/15/20 Mina Pretty DO PCP - General Internal Medicine 09/16/20 Shweta Boucher MD PCP - General Internal Medicine 01/12/21 10/10/21 Ora Ronquillo MD [address] [place] [address] PCP - General Internal Medicine 10/11/21 Jl Mendez MD [address] [place] [address] Dr Mont[address] [place] [address] Specialist Cardiovascular Disease 10/13/21 Jannette Boudreaux MD [address] [address] Surgeon Neurosurgery 04/07/22 Tenisha Mendieta PA-C [address] [address] Specialist Neurosurgery 04/07/22 Julio Monk PA-C 175 [facility] [address] [place] [address] Specialist Neurosurgery 04/07/22 Luis Armando Eller MD [address] [address] Specialist ORTHOPEDIC SURGERY 10/01/23 Jayesh Pineda MD [address] [place] [address] Specialist Endocrinology 10/01/23 Kelsi Tejada MD 305 [place] [address] Specialist Allergy & Immunology 10/01/23 Pretty Le MD 175 [facility] [address] [place] [address] Specialist Pulmonology 10/01/23 Vesta Michael PA-C 300 [facility] 210 [place] [address] Specialist Vascular Surgery 10/01/23 [facility] [address] [place] [address] Specialist Optometry 10/01/23 documented as of this encounter
== END ==
PROVIDERS: PCP Internal Medicine; Visit Provider Counselor Mental Health
DX: F33.9 Major depressive disorder, recurrent, unspecified (principal); F41.0 Panic disorder [episodic paroxysmal anxiety]
CPT/HCPCS: 90791

== ENCOUNTER 2024-05-13 10:14 | Outpatient (AMB) | payer OTHER, SELFPAY ==
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
--- OUTSIDE RECORDS SUMMARY | 2024-05-13 12:12 | XMS_ITS | Encounter Summary ---
Author Organization Formerly [facility] Address [address] [place] [address] Care Team Providers Care Inhalation Therapy Aide Name Role Phone Ora Ronquillo MD Primary Care Prov ider Jl Mendez MD Unavailable Jannette Boudreaux MD Unavailable [phone] Tenisha MendietaC Unavailable Julio Monk-C Unavailable [phone] Luis Armando Eller MD Unavailable [phone] Jayesh Pineda MD Unavailable Kelsi Tejada MD Unavailable Unavailable Pretty Le MD Unavailable Vesta Michael PA-C Unavailable [phone] [facility] Unavailable [phone] Encounter Details Date Type Department Care Team Description 06/22/2023 SCAN [facility] Medical [facility] [address] [facility] [place] [address] Danielle Soni APRN Social History [...] 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, FRAMING MANAGER, CHANDRAKANT) 06/14/2020 Sex Assigned at Date Recorded Female 08/03/2020 10:16 PM EDT Job Start Date Occupation Industry Not on file Not on file Not on file documented as of this encounter Plan of Treatment Not on file documented as of this encounter Visit Diagnoses Not on filedocumented in this encounter Care Teams Inhalation Therapy Aide Relationship Specialty Start Date End Date Ora Ronquillo MD [address] [place] [address] PCP - General Internal Medicine 10/11/21 Jl Mendez MD [address] [place] [address] Dr Montiel [address] [place] [id number] Specialist Cardiovascular Disease 10/13/21 Jannette Boudreaux MD [address] [address] Surgeon Neurosurgery 04/07/22 Tenisha Mendieta PA-C [address] [address] Specialist Neurosurgery 04/07/22 uJlio Monk PA-C [address] [address] Specialist Neurosurgery 04/07/22 Luis Armando Eller MD [address] [address] Specialist ORTHOPEDIC SURGERY 10/01/23 Jayesh Pineda MD [address] [place] [address] Specialist Endocrinology 10/01/23 Kelsi Tejada MD [address] [place] [address] Specialist Allergy & Immunology 10/01/23 Pretty Le MD 175 [facility] [address] [place] [id number] Specialist Pulmonology 10/01/23 Vesta Michael PA-C [address] [facility] [address] [place] [address] Specialist Vascular Surgery 10/01/23 [facility] [address] [place] [address] Specialist Optometry 10/01/23 documented as of this encounter
--- OUTSIDE RECORDS SUMMARY | 2024-05-13 12:12 | XMS_ITS | Clinical Summary ---
Author Organization [facility] Address [address] [place] [address] Care Team Providers Care Global Upstream Marketing Manager Name Role Phone Ora Sweeney MD [...] daily as needed for Pain (mild pain). 03/06/20 23 Active albuterol 2.5 mg /3 mL (0.083 %) nebulizer solution Take 1 Vial by nebulization 3 times daily for 180 days. 06/11/19 21 Active albuterol HFA (PROAIR HFA ; PROVENTIL HFA ; VENTOLIN HFA) 90 mcg/actuation inhaler Inhale 2 Puffs into the lungs every 6 hours as needed for Cough, Wheezing or Shortness of Breath for up to 363 days. 09/19/19 24 025 Active albuterol HFA (Ventolin HFA) 90 mcg/actuation inhaler Inhale 2 Puffs into the lungs every 6 hours as needed for Cough or Wheezing. 08/28/19 24 Active ammonium lactate (LAC-HYDRIN) 12 % lotion Apply to soles of feet daily. At night wear socks to bed 11/14/19 24 Active betamethasone, augmented, (DIPROLENE-AF) 0.05 % cream APPLY TO AFFECTED AREAS IN THIN LAYER TWICE A DAY UNTIL RESOLVED. 05/09/19 24 Active azelastine HCl (ASTELIN NASL) 2 Sprays by Nasal route 2 times daily. Active blood-glucose meter [facility] Use to test blood sugars once daily in the morning, before breakfast. 03/03/20 21 Active cloNIDine (CATAPRES) 0.1 mg tablet TAKE 1/2-1 TABLET BY MOUTH TWICE A DAY NEEDED FOR ANXIETY- NEEDED AND TOLERATED 11/04/19 23 Active EPINEPHrine (EpiPen 2-Nehemiah) 0.3 mg/0.3 mL injection Inject 1 Device as directed as needed (anaphylaxis). Use as directed 07/13/19 23 Active fexofenadine (CRISTINA) 180 mg tablet Take 1 tablet by mouth daily. 11/17/19 21 Active fluticasone-um eclidinium-josefina anterol (Trelegy Ellipta) 100-62.5-25 mcg inhaler Inhale 1 Puff into the lungs daily for 363 days. 09/19/19 24 025 Active UNABLE TO FIND Inhale into the lungs. [employer]-supplie s only Active FREESTYLE LANCETS MISC Use to test blood sugars once daily in the morning, before breakfast. 07/05/19 23 Active blood sugar diagnostic (FreeStyle Lite Strips) test strip Use to test blood sugars once daily in the morning, before breakfast. 11/28/19 23 Active ketoconazole (NIZORAL) 2 % cream Apply 1 Dose topically 2 times daily for 30 days. 07/23/19 24 Active ketotifen (ZADITOR) 0.025 % ophthalmic solution ketotifen 0.025 % (0.035 %) eye drops Active lidocaine (LIDODERM) 5 % patch Place 1 Patch onto the skin every 24 hours for 28 days. Apply for no more than 12 hours in any 24 hour period. B02.29 10/12/19 22 Active montelukast (SINGULAIR) 10 mg tablet Take 1 Tablet by mouth at bedtime. 09/26/19 24 Active onabotulinumto xinA (Botox) 200 unit injection Active senna (SENOKOT) 8.6 mg tablet Take 1 Tablet by mouth at bedtime. 10/17/19 24 Active sertraline (ZOLOFT) 100 mg tablet TAKE 1 TABLET BY MOUTH EVERY DAY IN THE MORNING 08/14/19 23 Active SUMAtriptan (IMITREX) 50 mg tablet TAKE 1 TO 2 TABLETS FOR MIGRAINE SYMPTOMS AND MAY REPEAT ONCE 2 HOURS LATER IF NEEDED 12/23/19 22 Active tezepelumab-ek ko (Tezspire) 210 mg/1.91 mL (110 mg/mL) injection Inject 210 mg into the skin every 30 days. Active traZODone (DESYREL) 100 mg tablet TAKE 1 TABLET EVERY NIGHT AT BEDTIME NEEDED CAN TAKE 1/2 TO ONE TABLET AT NIGHT TO HELP SLEEP 08/31/19 24 Active Trulicity 1.5 mg/0.5 mL pen injector injection Inject 0.5 mL (1.5 mg total) under the skin. 01/10/20 24 Active docusate sodium (COLACE) 100 mg capsule Take 1 capsule (100 mg total) by mouth 2 (two) times a day. 01/01/20 24 Active cholecalcifero l (VITAMIN D-3) 125 mcg (5,000 unit) capsule Take 1 capsule (5,000 Units total) by mouth 1 (one) time each day. 01/01/20 24 Active triamcinolone (NASACORT) 55 mcg nasal inhaler INSTILL 1 TO 2 SPRAYS INTO EACH NOSTRIL ONCE DAILY. 11/19/19 24 Active Stool Softener-Laxat juany 8.6-50 mg per tablet 12/06/19 Active aspirin 325 mg tablet Take 1 tablet (325 mg total) by mouth 1 (one) time each day. Active ibuprofen (ADVIL,MOTRIN) 800 mg tablet 12/06/19 24 Active Nucala 100 mg/mL auto-injector 07/25/19 24 Active atorvastatin (LIPITOR) 20 mg tablet TAKE 1 TABLET BY MOUTH EVERY DAY 90 tablet 1 01/31/20 24 Active venlafaxine XR (EFFEXOR-XR) 37.5 mg 24 hr capsule 01/21/20 24 Active amLODIPine (NORVASC) 10 mg tablet TAKE 1 TABLET BY MOUTH EVERY DAY 90 tablet 1 02/13/20 24 Active losartan (COZAAR) 100 mg tablet TAKE 1 TABLET BY MOUTH EVERY DAY 90 tablet 03/14/19 25 Active ipratropium-al buteroL (DUONEB) 0.5-2.5 mg/3 mL nebulizer solutionIndica tions:Asthma-c hronic obstructive pulmonary disease overlap syndrome (CMS/HCC) Take 3 mL by nebulization 4 (four) times a day if needed for wheezing or shortness of breath. 360 mL 3 04/25/19 25 026 Active predniSONE (DELTASONE) 20 mg tablet Take 60 mg PO daily for 3 days, then take 40 mg PO daily for 3 days, then 20 mg PO daily for 3 days, then stop 18 tablet 04/25/19 25 Active Additional Information Patient not taking.Reported on 05/05/2024 benzonatate (TESSALON) 100 mg capsule Take 1 capsule (100 mg total) by mouth 3 (three) times a day if needed for cough. Do not crush or chew. 42 capsule 04/25/19 25 025 Active famotidine (PEPCID) 20 mg tablet TAKE 1 TABLET (20 MG) BY MOUTH TWICE A DAY NEEDED FOR HEARTBURN 90 tablet 1 05/07/19 25 Active levothyroxine (SYNTHROID, LEVOTHROID) 137 mcg tabletIndicati ons:Atrophy of thyroid (acquired) TAKE 1 TABLET BY MOUTH EVERY DAY 90 tablet 1 05/13/19 25 Active famotidine (PEPCID) 20 mg tablet Take 1 tablet (20 mg total) by mouth 2 (two) times a day if needed for heartburn. 90 tablet 1 01/23/20 24 025 Discontinued levothyroxine (SYNTHROID, LEVOTHROID) 137 mcg tabletIndicati ons:Atrophy of thyroid (acquired) TAKE 1 TABLET BY MOUTH EVERY DAY 45 tablet 1 02/14/20 24 025 Discontinued trimethoprim-p olymyxin b (POLYTRIM) ophthalmic solution Administer 1 drop into both eyes 4 (four) times a day for 7 days. 10 mL 04/25/19 25 025 Active Problems Problem Noted Date Diagnosed Date [...] Future Anxiety and depression 06/14/2020 Overview (12/16/2023): [facility] Asthma, moderate persistent 05/10/2020 Overview (12/16/2023): [...] requirements Supply letter has been sent to [facility] Return to clinic in 1 year Pilar [...] Encounters Date Type Department Care Team Description 05/05/2024 4:30 PM EST Office Visit Adult Medicine [address] [phone] Chuck Felix MD Sore throat (Primary Dx); Loss of voice 05/05/2024 Telephone Adult Medicine [address] [phone] Ora Naylor MD Sore Throat (/) 04/25/2024 9:53 AM EST - 04/25/2024 11:59 PM EST Hospital Encounter XRAY [address] [phone] SOB (shortness of breath) Discharge Disposition: Home or Self Care 04/25/2024 9:00 AM EST Office Visit Adult Medicine [address] [phone] Zeina Reece MD SOB (shortness of breath) (Primary Dx); Asthma-chronic obstructive pulmonary disease overlap syndrome (CMS/HCC); Primary hypertension; Sore throat; URI, acute; Bacterial conjunctivitis of both eyes 04/24/2024 Telephone Adult Medicine [address] [phone] Ora Naylor MD Flu Symptoms 04/11/2024 9:45 AM EST Office Visit Endocrinology [address] [phone] Jayesh Pineda MD Type 2 diabetes mellitus with other specified complication, without long-term current use of insulin (CMS/HCC) (Primary Dx); Hyperparathyroidism (CMS/HCC); Hypothyroidism, unspecified type 04/03/2024 9:45 AM EST Office Visit Orthopedic Surgery [facility] 250 175 [facility] [address] [place] [address] Duke Dunn DPM Controlled type 2 diabetes with neuropathy (CMS/HCC) (Primary Dx); PVD (peripheral vascular disease) (CMS/HCC); Pain in both feet; Difficulty walking; Dermatophytosis, nail 03/27/2024 10:00 AM EST [facility] [address] [phone] Chema Martins, OT Rotator cuff tear arthropathy of left shoulder (Primary Dx) 03/26/2024 9:45 AM EST Office Visit Orthopedic Surgery - [place] 160 175 [facility] 160 [place] [phone] Luis Armando Eller MD S/P left rotator cuff repair (Primary Dx) 03/25/2024 9:00 AM EST [facility] [address] [phone] Lisa Jones, DEL RIO 03/20/2024 11:00 AM EST Treatment [facility] [address] [phone] Chema Martins, OT Rotator cuff tear arthropathy of left shoulder (Primary Dx) 03/18/2024 1:00 PM EST Treatment [facility] [address] [phone] Lisa Jones, DEL RIO 03/13/2024 9:30 AM EST Treatment [facility] [address] [phone] Morris Melo COTA/Raul Rotator cuff tear arthropathy of left shoulder (Primary Dx) 03/11/2024 9:30 AM EST Treatment [facility] [address] [phone] Lisa Jones COTA Rotator cuff tear arthropathy of left shoulder (Primary Dx) 03/06/2024 9:30 AM EST Treatment [facility] [address] [phone] Lisa Jones COTA Rotator cuff tear arthropathy of left shoulder (Primary Dx); S/P left rotator cuff repair 03/04/2024 8:45 AM EST Treatment [facility] [address] [phone] Lisa Jones, DEL RIO 02/28/2024 9:00 AM EST Treatment [facility] [address] [phone] Chema Martins, OT Rotator cuff tear arthropathy of left shoulder (Primary Dx) 02/27/2024 9:30 AM EST Office Visit Orthopedic Surgery - [place] 160 175 [facility] [address] [place] [phone] Genny Arreguin PA Post-operative state (Primary Dx); S/P left rotator cuff repair 02/20/2024 9:45 AM EST Treatment [facility] Occupational Therapy [address] [phone] Morris Melo COTA/Raul Rotator cuff tear arthropathy of left shoulder (Primary Dx) 02/14/2024 9:30 AM EST Treatment [facility] Occupational Therapy [address] [phone] Chema Martins, OT Rotator cuff tear arthropathy [...] Pfizer (ages 12 & older) Bivalent, COVID-19 10 Pfizer SARS-CoV-2 COVID-19, mRNA, LNP-S, preservative free 09/21/2020,08/31/2020 Pneumococcal polysaccharide 23 valent (Pneumovax 23) 2yo and older 01/15/2023,07/19/2017 Tdap Tetanus diptheria acell ular pertussis (Boostrix; Adacel) 7yo and older 10/31/2022,08/13/2012 Surgical History Surgery Date Site/Laterality Comments KNEE ARTHROSCOPY Right PROCEDURE: SC ARTHROSCOPY KNEE DIAGNOSTIC W/WO SYNOVIAL BX SPX WISDOM TOOTH EXTRACTION PROCEDURE: HISTORICAL WISDOM TEETH EXTRACTION TONSILLECTOMY PROCEDURE: HISTORICAL TONSILLECTOMY; COMMENT: and adenoids SECTION PROCEDURE: HISTORICAL DELIVERY OTHER SURGICAL HISTORY PROCEDURE: SC BIOPSY THYROID PERCUTANEOUS CORE NEEDLE COLONOSCOPY 12/10/2012 PROCEDURE: HISTORICAL COLONOSCOPY; COMMENT: normal; repeat in 3 yrs. sig. hyperplastic polyp OTHER SURGICAL HISTORY PROCEDURE: CYSTOSCOPY/SURG, URETHRA/BLAD NECK; COMMENT: sling procedure for stress incontinence OTHER SURGICAL HISTORY 08/25/2015 Right PROCEDURE: SC EXCISION NAIL MATRIX PERMANENT REMOVAL; COMMENT: right hallux Dr. Rangel COLONOSCOPY 01/31/2016 PROCEDURE: HISTORICAL COLONOSCOPY; COMMENT: 3 small polyps removed- dist.asc =tubular adenoma x 1; other nl tissue. COLONOSCOPY 09/29/2019 PROCEDURE: HISTORICAL COLONOSCOPY; COMMENT: 5 mm ascending colon polyp: Tubular adenoma. UPPER GASTROINTESTINAL ENDOSCOPY 09/29/2019 PROCEDURE: SC UPPER GI ENDOSCOPY PERFORMED; COMMENT: Visually normal on PPI treatment. ESOPHAGOGASTRODUODENOSCOPY 09/22/2021 PROCEDURE: SC EGD TRANSORAL BIOPSY SINGLE/MULTIPLE; COMMENT: EGD including biopsy normal OTHER SURGICAL HISTORY PROCEDURE: HISTORY OTHER; COMMENT: Maxillofacial surgery EXCISION BENIGN SKIN LESION TRUNK / ARM / LEG PROCEDURE: SC EXCISION TUMOR SOFT TISSUE BACK/FLANK SUBQ <3CM; [...] (BMI) of 40.0 to 44.9 in adult ([facility]/HCC) 07/15/2019 DX:Class 3 severe obesity du e to excess calories with serious comorbidity and body mass index (BMI) of 40.0 to 44.9 in adult ([facility]) Diabetes mellitus type 2, co ntrolled, without complications ([facility]) 02/16/2021 DX:Diabetes mellitus t ype 2, controlled, without complications ([facility]) Mild concentric left ventric ular hypertrophy [...] left upper extremity Shingles DX:Shingles Diabetes mellitus ([facility]) DX:D iabetes mellitus ([facility]) HLD (hyperlipidemia) 11/21/2021 DX:HLD (hyp erlipidemia) VIRGIE on CPAP DX:VIRGIE on CPAP Depression DX:Depression Overactive bladder DX:Overactive bladder Obesity with alveolar hypove ntilation (CMS/HCC) DX:Obesity with alveolar hypoventilation (HCC) Morbid obesity with BMI of 4 0.0-44.9, adult (CMS/HCC) DX:Morbid obesity with BMI o f 40.0-44.9, adult ([facility]) Asthma-chronic obstructive p ulmonary disease overlap syndrome (CMS/HCC) 01/30/2022 DX:Asthma-chronic o bstructive pulmonary disease overlap syndrome (HCC) Family History Medical History Relation Name Comments Breast cancer Aunt 1 maternal x 1 Ovarian cancer Aunt 2 maternal x 6 6 maternal au nts also with ov, uterine ca Glaucoma Brother x 2 Coronary artery disease Father [place] a ge 68, HTN, Diabetes, cataract, glaucoma [...] your loved ones. For example, child development instructor or elderly care for an older adult? [...] Sign Reading Time Taken Comments Blood Pressure 158/78 05/05/2024 4:42 PM EST Pulse 68 05/05/2024 4:42 PM EST Temperature 36 ??C (96.8 ??F) 05/05/2024 4:42 PM EST Respiratory Rate 20 05/05/2024 4:42 PM EST Oxygen Saturation 97% 05/05/2024 4:42 PM EST Inhaled Oxygen Concentration - - Weight 122 kg (268 lb) 05/05/2024 4:42 PM EST Height 160 cm (5' 3 ) 05/05/2024 4:42 PM EST Body Mass Index 47.47 05/05/2024 4:42 PM EST Plan of Treatment Upcoming Encounters Date Type Department Care Team (Late st Contact Info) Description 05/28/2024 9:45 AM EDT Office Visit Adult Medicine [address] [phone] Ora Sweeney MD [address] [place] [address] 06/04/2024 10:30 AM EDT Consult Bariatric Surgery [facility] 175 [facility] [address] [place] [phone] Lita Verde PA [address] [facility] [address] [place] [address] 06/04/2024 11:45 AM EDT Office Visit Orthopedic Surgery [facility] 160 175 [facility] 160 [place] [phone] Luis Armando Eller MD [address] [address] 06/05/2024 9:45 AM EDT Office Visit Orthopedic [facility] [address] [phone] Duke Dunn, DPJohan [address] [address] 06/06/2024 2:30 PM EDT Office Visit Obstetrics and Gynecology - [address] [phone] Stacie Martinez, [facility] [address] [place] [address] 06/30/2024 10:30 AM EDT Office Visit Orthopedic [facility] [address] [phone] Luis Armando Eller MD [address] [address] 07/02/2024 9:30 AM EDT Office Visit Orthopedic Surgery [facility] [address] [phone] Lorie Moore NP [address] [address] 07/09/2024 9:30 AM EDT Office Visit Endocrinology - [place] [address] [place], [place] [phone] Jayesh Pineda MD [address] [place] [address] 09/22/2024 8:45 AM EDT Office Visit Pulmonolgy - [place] [address] [phone] Pretty Le MD [address] [address] Health Maintenance Due Date Last Done Comments [...] 11/23/2023, 11/23/2023, 09/26/2023 Breast Cancer Screening 12/11/2024 12/12/19, 12/05/2021, 11/26/2020, Additional history exists Social Influencers [...] Procedure Name Priority Date/Time Associated Diagnosis Comments POC RAPID STREP A Routine 05/05/2024 4:5 9 PM EST Sore throat POC RAPID STREP A Routine 04/25/2024 10: 39 AM EST Sore throat URI, acute [id number], RSV, FLU A AND B QUALITATIVE RT-PCR, LOCAL REFERENCE LAB Routine 04/25/2024 10:34 AM EST URI, acute XR CHEST 2 VIEWS Routine 04/25/2024 10:1 0 AM EST SOB (shortness of breath) MR BRAIN WO CONTRAST Routine 02/29/2024 2:48 PM EST HEMOGLOBIN A1C Routine 11/26/2023 ANNUAL BMP BLOOD [...] Recently Relevant to Health Maintenance Results * POC rapid strep A manually resulted (05/05/2024 4:59 PM EST) Only the most recent of2 resultswithin the time period is included. Rapid Strep A Screen POC Negative Negative Swab Structure of anterior portion of neck / Unknown 05/05/2024 4:59 PM EST Chuck Felix MD POINT OF CARE TEST ENTER/EDIT OR DERABLES Edited Result - Final * [id number], RSV, Influenza A and B qualitative RT-PCR (04/25/2024 10:34 AM EST) SARS COV-2 Not Detected Not Detected LAB MOLECULAR DIAGNOSTICS METHOD 04/25/2024 4:13 PM EST [facility] Influenza A PCR Not Detected Not Detected LAB MOLECULAR DIAGNOSTICS METHOD 04/25/2024 4:13 PM EST [facility] Influenza B PCR Not Detected Not Detected LAB MOLECULAR DIAGNOSTICS METHOD 04/25/2024 4:13 PM EST [facility] RSV PCR Not Detected Not Detected LAB MOLECULAR DIAGNOSTICS METHOD 04/25/2024 4:13 PM EST [facility] Swab Nasopharyngeal structure / Unknown Non-blood Collection / Unknown 04/25/2024 10:34 AM EST 04/25/2024 10:34 AM EST Zeina Reece MD LAB MICROBIOLOGY - GENERAL ORDERABLES Final Result [facility] [address] [place] [address], * XR Chest 2 Views (04/25/2024 10:10 AM EST) Anatomical Region Laterality Modality Body Radiographic Ivy ging 04/25/2024 1:15 PM EST Impressions 04/25/2024 1:15 PM EST No acute cardiopulmonary process. -------- FINAL REPORT -------- Dictated By: Malathi Pak Dictated Date: 04/25/2024 13:15 ET Assigned Physician: Malathi Pak Reviewed and Electronically Signed By: Malathi Pak Signed Date: 04/25/2024 13:15 ET Workstation ID: [id number] Transcribed By: Self Edit Transcribed Date: 04/25/2024 13:15 ET Narrative 04/25/2024 1:15 PM EST HISTORY: SOB TECHNIQUE: PA and lateral radiographs of the chest COMPARISON: Chest radiograph from 08/02/2023 FINDINGS: There is a normal cardiomediastinal silhouette. ??Atherosclerosis of thoracic aorta. ??The lungs are clear. The osseous structures are intact. ?? Procedure Note Malathi Pak MD - 04/25/2024 HISTORY: SOB TECHNIQUE: PA and lateral radiographs of the chest COMPARISON: Chest radiograph from 08/02/2023 FINDINGS: There is a normal cardiomediastinal silhouette. Atherosclerosis ofthoracic aorta. The lungs are clear. The osseous structures are intact. IMPRESSION: No acute cardiopulmonary process. -------- FINAL REPORT -------- Dictated By: Malathi Pak Dictated Date: 04/25/2024 13:15 ET Assigned Physician: Malathi Pak Reviewed and Electronically Signed By: Malathi Pak Signed Date: 04/25/2024 13:15 ET Workstation ID: [id number] Transcribed By: Self Edit Transcribed Date: 04/25/2024 13:15 ET Zeina Reece MD IMG XR PROCEDURES Final Res ult * MR Brain wo Contrast (02/29/2024 2:48 PM EST) Anatomical Region Laterality Modality Head and Neck Magnetic Resonan ce Historical Provider IMG MRI PROCEDURES Final Result * (ABNORMAL) Hemoglobin A1c (11/26/2023) Pathologist [facility] Hemoglobin A1C 7.4(A) <=6.5 % Blood Venous blood specimen / Unknown Historical Provider LAB BLOOD ORDERABLES Soni l Result * Annual BMP Blood Test (11/23/2023) Pathologist [facility] Annual BMP Blood Test Abstracted [facility] Provider HEALTH MAINTENANCE Final Result * Urine Albumin Creatinine Ratio (10/04/2023) Pathologist [facility] Urine Albumin Creatinine Ratio Abstracted Result [facility] HEALTH MAINTENANCE Final Result * (ABNORMAL) Lipid panel (10/04/2023) [facility] LDL/HDL Ratio 4 0 - 4 Triglycerides 173(A) 0 - 150 mg/dL Cholesterol 146 0 - 200 mg/dL HDL 39(A) >=40 mg/dL LDL Cholesterol 73 0 - 100 mg/dL Blood Venous blood specimen / Unknown Result [facility] LAB BLOOD ORDERABLES Soni l Result * Falls Risk Assessment (10/01/2023) [facility] Falls Risk Assessment Abstracted Result [facility] Final Result * Depression Screening (10/01/2023) Pathologist [facility] Depression Screening Abstracted Result [facility] MAINTENANCE Final Result * Diabetes Foot Exam (10/01/2023) [facility] Diabetes: Annual Foot Exam Abstracted Result [facility] HEALTH MAINTENANCE Final Result * SCREENING MAMMOGRAPHY [...] * Cervical Cancer Screening: HPV (04/11/2021) Pathologist [facility] Cervical Cancer Screening: HPV No [...] classified as having normal bone density. [facility] Department of Internal Medicine recommends using National [...] beclassified as having normal bone density. [facility] Department of Internal Medicine recommendsusing National Osteoporosis [...] fracture risk by FRAX. Jayesh Pineda MD IM DXA PROCEDURES Final Result * Colonoscopy (09/29/2019) [facility] Colonoscopy No interpreta tion,abstr acted Anatomical Region Laterality Modality Other Historical Provider HEALTH MAINTENANCE Final Result * Hepatitis C Screening (09/22/2014) [facility] Hepatitis C Screening Abstracted Historical [facility] HEALTH MAINTENANCE Final Result from Last 3 Months or Most Recently Relevant to Health Maintenance Insurance [facility] MEDICARE ADVANTAGE Care Teams Global Upstream Marketing Manager Relationship Specialty Start Date End Date Ora Sweeney MD [address] [place] [phone] PCP - General Internal Medicine 01/09/24
--- OUTSIDE RECORDS SUMMARY | 2024-05-13 12:12 | XMS_ITS | Encounter Summary ---
Author Organization [facility] Address [address] [place] [address] Care Team Providers Care Property Underwriter Name Role Phone Ora Ronquillo MD Primary Care Prov ider Jl Mendez MD Unavailable [phone] Jannette Boudreaux MD Unavailable [phone] Tenisha Mendieta PA-C Unavailable Julio Monk PA-C Unavailable Luis Armando Eller MD Unavailable [phone] Jayesh Pineda MD Unavailable Kelsi Tejada MD Unavailable Unavailable Pretty Le MD Unavailable Vesta Michael PA-C Unavailable [phone] [facility] Unavailable [phone] Reason for Visit * Reason Onset Date Comments DME Request 08/11/2022 Encounter Details Date Type Department Care Team Description 08/11/2022 Telephone Pulmonology [facility] 175 [facility] [address] [place] [address] Michael Saldana MD DME Request [...] 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, BLENDER CONVEYOR OPERATOR, CHANDRAKANT) 06/14/2020 Sex Assigned at Date [...] Miscellaneous Notes * Telephone Encounter - Destini Andersen - 08/11/2022 1:11 PM EDT Supplies order faxed to regional documented in this encounter Plan of Treatment Not on file documented as of this encounter Visit Diagnoses Not on filedocumented in this encounter Care Teams Property Underwriter Relationship Specialty Start Date End Date Ora Ronquillo MD [address] [place] [address] PCP - General Internal Medicine 10/11/21 Jl Mendez MD [address] [place] [address] Dr [address] [place] [address] Specialist Cardiovascular Disease 10/13/21 Jannette Boudreaux MD [address] [address] Surgeon Neurosurgery 04/07/22 Tenisha Mendieta PA-C [address] [address] Specialist Neurosurgery 04/07/22 Julio Monk PA-C 175 [facility] [address] [place] [address] Specialist Neurosurgery 04/07/22 Luis Armando Eller MD [address] [address] Specialist ORTHOPEDIC SURGERY 10/01/23 Jayesh Pineda MD [address] [place] [address] Specialist Endocrinology 10/01/23 Kelsi Tejada MD [address] [place] [address] Specialist Allergy & Immunology 10/01/23 Pretty Le MD 175 [facility] [address] [place] [address] Specialist Pulmonology 10/01/23 Vesta Michael PA-C 300 [facility] [address] [place] [address] Specialist Vascular Surgery 10/01/23 [facility] [address] [place] [address] Specialist Optometry 10/01/23 documented as of this encounter
--- OUTSIDE RECORDS SUMMARY | 2024-05-13 12:12 | XMS_ITS | Encounter Summary ---
Author Organization [facility] Address [address] [place] [address] Care Team Providers Care Siebel Consultant Name Role Phone Geno Cueva MD Primary Care Provider Unavailable Teressa Solis DO Primary Care Pro vider Unavailable Mina Pretty DO Primary Care Provider Ailyn Shweta Pretty MD Primary Care Provider Ora Diaz MD Primary Care Prov ider Jl Mendez MD Unavailable Jannette Boudreaux MD Unavailable [phone] Tenisha Mendieta PA-C Unavailable Julio Monk PA-C Unavailable [phone] Luis Armando Eller MD Unavailable [phone] Jayesh Pineda MD Unavailable Kelsi Tejada MD Unavailable Unavailable Pretty Le MD Unavailable Vesta Michael-Pina Unavailable [phone] [facility] Unavailable [phone] Encounter Details Date Type Department Care Team Description 01/02/2013 Hospital Medical Records [address] [place] [address] Zoltan Chu Social History Tobacco Use Types Packs/Day Years Used Date Smoking Tobacco: Never Smokeless Tobacco: Never Alcohol Use Standard Drinks/Week Comments No 0 (1 standard drink = 0.6 oz pur e alcohol) Education Answer Date Recorded What is the highest level of school you have completed or the highest degree you have received? 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, BLACK MILL OPERATOR, CHANDRAKANT) 06/14/2020 Sex Assigned at Date Recorded Female 08/03/2020 10:16 PM EDT Job Start Date Occupation Industry Not on file Not on file Not on file documented as of this encounter Plan of Treatment Not on file documented as of this encounter Visit Diagnoses Not on filedocumented in this encounter Care Teams Siebel Consultant Relationship Specialty Start Date End Date Geno Cueva MD PCP - General Internal Medicine 06/28/1212/17/13 Teressa Solis, DO PCP - General Internal Medicine 12/18/13 09/15/20 Mina Pretty, PCP - General Internal Medicine 09/16/20 1 Shweta Tellez MD PCP - General Internal Medicine 01/12/21 10/10/21 Ora Ronqiullo MD [address] [place] [address] PCP - General Internal Medicine 10/11/21 Jl Mendez MD [address] [place] [address] Dr Mont[address] [place] [address] Specialist Cardiovascular Disease 10/13/21 Jannette Boudreaux MD [address] [address] Surgeon Neurosurgery 04/07/22 Tenisha Mendieta PA-C [address] [address] Specialist Neurosurgery 04/07/22 Julio Monk PA-C 175 [facility] [address] [place] [address] Specialist Neurosurgery 04/07/22 Luis Armando Eller MD [address] [address] Specialist ORTHOPEDIC SURGERY 10/01/23 Jayesh Pineda MD 305 [place] [address] Specialist Endocrinology 10/01/23 Kelsi Tejada MD 305 [place] [address] Specialist Allergy & Immunology 10/01/23 Pretty Le MD 175 [facility] [address] [place] [address] Specialist Pulmonology 10/01/23 Vesta Michael PA-C 300 [facility] 210 [place] [address] Specialist Vascular Surgery 10/01/23 [facility] 46 [place] [address] Specialist Optometry 10/01/23 documented as of this encounter
--- OUTSIDE RECORDS SUMMARY | 2024-05-13 12:12 | XMS_ITS | Encounter Summary ---
Author Organization [facility] Address [address] [place] [address] Care Team Providers Care Fire Hydrant Mechanic Name Role Phone Ora Sweeney MD Primary Care Prov ider Encounter Details Date Type Department Care Team (Late st Contact Info) Description 12/12/2023 4:42 PM EDT Hospital Encounter TH HISTORIC ENCOUNTERS EASTERN CONVERSION ONLY Luis Armando Eller MD [address]h [address] [place] [address] Social History Tobacco Use Types Packs/Day Years [...] care for your loved ones. For example, rn child or elderly care for an older adult? [...] 9:45 AM EDT Office Visit Adult Medicine [address] [address] Ora Sweeney MD [address] [place] [address] 06/04/2024 10:30 AM EDT Consult Bariatric Surgery - [place] 175 [facility] 120 [place] [phone] Lita Verde PA 271 [facility] 120 [place] [address] 06/04/2024 11:45 AM EDT Office Visit Orthopedic Surgery - [place] [address] [address] Luis Armando Eller MD [address] [address] 06/05/2024 9:45 AM EDT Office Visit Orthopedic Surgery - [place] [address] [address] Duke Dunn, DPM [address] [address] 06/06/2024 2:30 PM EDT Office Visit Obstetrics and Gynecology - [place] [address] [place] [address] Stacie Martinez, [facility] 444 [place] [address] 06/30/2024 10:30 AM EDT Office Visit Orthopedic Surgery [facility] [address] [phone] Luis Armando Eller MD [address] [address] 07/02/2024 9:30 AM EDT Office Visit Orthopedic Surgery - [place] [address] [phone] Lorie Moore NP [address] [address] 07/09/2024 9:30 AM EDT Office Visit Endocrinology - [address] [phone] Jayesh Pineda MD 5 [place] [address] 09/22/2024 8:45 AM EDT Office Visit Pulmonolgy - [place] [address] [phone] Pretty Le MD [address] [address] documented as of this encounter Visit Diagnoses Not on filedocumented in this encounter Additional Health Concerns Infection Onset Date Last Indicated Resolved Time Respiratory Rule-Out 04/25/2024 04/25/2024 025 4:13 PM EST COVID-19 Rule-Out 04/25/2024 04/25/2024 04/25/2024 4:13 PM EST documented as of this encounter Care Teams Fire Hydrant Mechanic Relationship Specialty Start Date End Date Ora Sweeney MD [address] [place] [address] PCP - General 10/11/21 01/08/24 documented as of this encounter
--- OUTSIDE RECORDS SUMMARY | 2024-05-13 12:12 | XMS_ITS | Encounter Summary ---
Author Organization [facility] Address [address] [place] [address] Care Team Providers Care Member Of Congress Name Role Phone Teressa Solis DO Primary Care Pro vider Unavailable Mina Pretty DO Primary Care Provider Shweta Cronin MD Primary Care Provider Ora Diaz MD Primary Care Prov ider Jl Mendez MD Unavailable Jannette Boudreaux MD Unavailable [phone] Tenisha Mendieta PA-C Unavailable Julio Monk PA-C Unavailable Luis Armando Eller MD Unavailable [phone] Jayesh Pineda MD Unavailable Kelsi Tejada MD Unavailable Unavailable Pretty Le MD Unavailable Vesta Michael PA-C Unavailable [phone] [facility] Unavailable [phone] Encounter Details Date Type Department Care Team Description 12/30/2016 Hospital Medical Records 4 [place] [address] Social History Tobacco Use Types Packs/Day Years Used Date Smoking Tobacco: Never Smokeless Tobacco: Never Alcohol Use Standard Drinks/Week Comments No 0 (1 standard drink = 0.6 oz pur e alcohol) Education Answer Date Recorded What is the highest level of school you have completed or the highest degree you have received? 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, COATER BRAKE LININGS, CHANDRAKANT) 06/14/2020 Sex Assigned at Date Recorded [...] on filedocumented in this encounter Care Teams Member Of Congress Relationship Specialty Start Date End Date Teressa Solis DO PCP - General Internal Medicine 12/18/13 09/15/20 Mina Pretty DO PCP - General Internal Medicine 09/16/20 1 Shweta Tellez MD PCP - General Internal Medicine 01/12/21 10/10/21 Hiwot Couch, Ora Kelly MD 4 [place] [address] PCP - General Internal Medicine 10/11/21 Jl Mendez MD [address] [place] [address] Dr Montiel [address] [place] [address] Specialist Cardiovascular Disease 10/13/21 Jannette Boudreaux MD [address] [address] Surgeon Neurosurgery 04/07/22 Tenisha Mendieta PA-C [address] [address] Specialist Neurosurgery 04/07/22 Julio Monk PA-C 175 [facility] [address] [place] [address] Specialist Neurosurgery 04/07/22 Luis Armando Eller MD 175 [facility] 250 [place] [address] Specialist ORTHOPEDIC SURGERY 10/01/23 Jayesh Pineda MD 305 [place] [address] Specialist Endocrinology 10/01/23 Kelsi Tejada MD 305 [place] [address] Specialist Allergy & Immunology 10/01/23 Pretty Le MD 175 [facility] 200 [place] [address] Specialist Pulmonology 10/01/23 Vesta Michael PA-C 300 [facility] 210 [place] [address] Specialist Vascular Surgery 10/01/23 [facility] 46 [place] [address] Specialist Optometry 10/01/23 documented as of this encounter
--- OUTSIDE RECORDS SUMMARY | 2024-05-13 12:12 | XMS_ITS | Encounter Summary ---
Author Organization [facility] Address [address] [place] [address] Care Team Providers Care Chief Operator Lock Tender Name Role Phone Teressa Solis DO Primary Care Pro vider Unavailable Mina Pretty DO Primary Care Provider Shweta Cronin MD Primary Care Provider Ora Diaz MD Primary Care Prov ider Jl Mendez MD Unavailable Jannette Boudreaux MD Unavailable [phone] Tenisha Mendieta PA-C Unavailable Julio Monk PA-C Unavailable Luis Armando Eller MD Unavailable [phone] Jayesh Pineda MD Unavailable Kelsi Tejada MD Unavailable Unavailable Pretty Le MD Unavailable Vesta Michael PA-C Unavailable [phone] [facility] Unavailable [phone] Encounter Details Date Type Department Care Team Description 07/21/2020 Global Recruiter Report Medical Records [address] [place] [address] Randy Domínguez MD Social History Tobacco Use Types Packs/Day Years Used Date Smoking Tobacco: Never Smokeless Tobacco: Never Alcohol Use Standard Drinks/Week Comments No 0 (1 standard drink = 0.6 oz pur e alcohol) Education Answer Date Recorded What is the highest level of school you have completed or the highest degree you have received? 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, ADVISER SALES, CHANDRAKANT) 06/14/2020 Sex Assigned at Date Recorded Female 08/03/2020 10:16 PM EDT Job Start Date Occupation Industry Not on file Not on file Not on file documented as of this encounter Plan of Treatment Not on file documented as of this encounter Visit Diagnoses Not on filedocumented in this encounter Care Teams Chief Operator Lock Tender Relationship Specialty Start Date End Date Teressa Solis DO PCP - General Internal Medicine 12/18/13 09/15/20 Mina Pretty DO PCP - General Internal Medicine 09/16/20 Shweta Boucher MD PCP - General Internal Medicine 01/12/21 10/10/21 Ora Ronquillo MD [address] [place] [address] PCP - General Internal Medicine 10/11/21 Jl Mendez MD [address] [place] [address] Dr Mont[address] [place] [address] Specialist Cardiovascular Disease 10/13/21 Jannette Boudreaux MD [address] [address] Surgeon Neurosurgery 04/07/22 Tenisha Mendieta PA-C [address] [address] Specialist Neurosurgery 04/07/22 Julio Monk PA-C 175 [facility] [address] [place] [address] Specialist Neurosurgery 04/07/22 Luis Armando Eller MD [address] [address] Specialist ORTHOPEDIC SURGERY 10/01/23 Jayesh Pineda MD 305 [place] [address] Specialist Endocrinology 10/01/23 Kelsi Tejada MD 305 [place] [address] Specialist Allergy & Immunology 10/01/23 Pretty Le MD 175 [facility] [address] [place] [address] Specialist Pulmonology 10/01/23 Vesta Michael PA-C 300 [facility] 210 [place] [address] Specialist Vascular Surgery 10/01/23 [facility] 46 [place] [address] Specialist Optometry 10/01/23 documented as of this encounter
--- OUTSIDE RECORDS SUMMARY | 2024-05-13 12:12 | XMS_ITS | Encounter Summary ---
Author Organization [facility] Address [address] [place] [address] Care Team Providers Care Surgical Training Specialist Name Role Phone Teressa Solis DO Primary Care Pro vider Unavailable Mina Pretty DO Primary Care Provider Ailyn Shweta Pretty MD Primary Care Provider UnaOra Randall MD Primary Care Prov ider Jl Mendez MD Unavailable [phone] Jannette Boudreaux MD Unavailable [phone] Tenisha Mendieta PA-C Unavailable Julio MonkC Unavailable Luis Armando Eller MD Unavailable [phone] Jayesh Pineda MD Unavailable Kelsi Tejada MD Unavailable Unavailable Pretty Le MD Unavailable Vesta Michael PA-C Unavailable [facility] Unavailable Encounter Details Date Type Department Care Team Description 06/10/2020 Refill Pulmonology - [place] 175 [facility] [address] [place] [address] Julio Cesar Weiss MD 175 [facility] [address] [place] [address] Social History Tobacco Use Types [...] (pneumococcus) documented in this encounter Care Teams Surgical Training Specialist Relationship Specialty Start Date End Date Teressa Solis DO PCP - General Internal Medicine 12/18/13 09/15/20 Mina Pretty DO PCP - General Internal Medicine 09/16/20 1 Shweta Tellez MD PCP - General Internal Medicine 01/12/21 10/10/21 Hiwot Couch, Ora Kelly MD [address] [place] [address] PCP - General Internal Medicine 10/11/21 Jl Mendez MD [address] [place] [address] Dr Mont[address] [place] [address] Specialist Cardiovascular Disease 10/13/21 Jannette Boudreaux MD [address] [address] Surgeon Neurosurgery 04/07/22 Tenisha Mendieta PA-C [address] [address] Specialist Neurosurgery 04/07/22 Julio Monk PA-C [address] [address] Specialist Neurosurgery 04/07/22 Luis Armando Eller MD 175 [facility] [address] [place] [address] Specialist ORTHOPEDIC SURGERY 10/01/23 Jayesh Pineda MD 305 [place] [address] Specialist Endocrinology 10/01/23 Kelsi Tejada MD 305 [place] [address] Specialist Allergy & Immunology 10/01/23 Pretty Le MD 175 [facility] [address] [place] [address] Specialist Pulmonology 10/01/23 Vesta Michael PA-C 300 [facility] [address] [place] [address] Specialist Vascular Surgery 10/01/23 [facility] 46 [place] [address] Specialist Optometry 10/01/23 documented as of this encounter
--- OUTSIDE RECORDS SUMMARY | 2024-05-13 12:12 | XMS_ITS | Encounter Summary ---
Author Organization [facility] Address [address] [place] [address] Care Team Providers Care Accounting Machine Operator Name Role Phone Ora Ronquillo MD Primary Care Prov ider Jl Mendez MD Unavailable Jannette Boudreaux MD Unavailable [phone] Tenisha Mendieta PA-C Unavailable Julio Monk PA-C Unavailable Luis Armando Eller MD Unavailable [phone] Jayesh Pineda MD Unavailable Kelsi Tejada MD Unavailable Unavailable Pretty Le MD Unavailable Vesta Michael PA-C Unavailable [facility] Unavailable [phone] Encounter Details Date Type Department Care Team Description 05/21/2023 Refill Endocrinology - [place] [address] [place] [address] Jayesh Pineda MD 305 [place], [place] [address] Social History Tobacco Use Types Packs/Day Years Used Date Smoking Tobacco: Never Smokeless Tobacco: Never Alcohol Use Standard Drinks/Week Comments No 0 (1 standard drink = 0.6 oz pur e alcohol) Education Answer Date Recorded What is the highest level of school you have completed or the highest degree you have received? 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, DIRECTOR OF MARKET INTELLIGENCE, CHANDRAKANT) 06/14/2020 Sex Assigned at Date Recorded Female 08/03/2020 10:16 PM EDT Job Start Date Occupation Industry Not on file Not on file Not on file documented as of this encounter Miscellaneous Notes * Telephone Encounter - Essence Martinez M.A. - 05/21/2023 1:02 PM EDT Jordyn 03/14/23 Lab Results Component Value Date HGBA1C 7.9 [...] (HCC) documented in this encounter Care Teams Accounting Machine Operator Relationship Specialty Start Date End Date Ora Ronquillo MD 4 [place] [address] PCP - General Internal Medicine 10/11/21 Jl Mendez MD [address] [place] [address] Dr Mont[address] [place] [address] Specialist Cardiovascular Disease 10/13/21 Jannette Boudreaux MD [address] [address] Surgeon Neurosurgery 04/07/22 Tenisha Mendieta PA-C [address] [address] Specialist Neurosurgery 04/07/22 Julio Monk PA-C [address] [address] Specialist Neurosurgery 04/07/22 Luis Armando Eller MD 175 [facility] 250 [place] [address] Specialist ORTHOPEDIC SURGERY 10/01/23 Jayesh Pineda MD 305 [place] [address] Specialist Endocrinology 10/01/23 Kelsi Tejada MD 305 [place] [address] Specialist Allergy & Immunology 10/01/23 Pretty Le MD 175 [facility] 200 [place] [address] Specialist Pulmonology 10/01/23 Vesta Michael PA-C 300 [facility] 210 [place] [address] Specialist Vascular Surgery 10/01/23 [facility] 46 [place] [address] Specialist Optometry 10/01/23 documented as of this encounter
--- OUTSIDE RECORDS SUMMARY | 2024-05-13 12:12 | XMS_ITS | Encounter Summary ---
Author Organization [facility] Address [address] [place] [address] Care Team Providers Care Case Supervisor Name Role Phone Teressa Solis DO Primary Care Pro vider Unavailable Mina Pretty DO Primary Care Provider Shweta Cronin MD Primary Care Provider Ora Diaz MD Primary Care Prov ider Jl Mendez MD Unavailable Jannette Boudreaux MD Unavailable [phone] Tenisha Mendieta PA-C Unavailable Julio Monk PA-C Unavailable Luis Armando Eller MD Unavailable [phone] Jayesh Pineda MD Unavailable Kelsi Tejada MD Unavailable Unavailable Pretty Le MD Unavailable Vesta Michael PA-C Unavailable [phone] [facility] Unavailable [phone] Encounter Details Date Type Department Care Team Description 01/05/2017 Community Liaison Officer Report Medical Records [address] [place] [address] Bobby Sutton PA-C Social History Tobacco Use [...] on filedocumented in this encounter Care Teams Case Supervisor Relationship Specialty Start Date End Date Teressa Solis DO PCP - General Internal Medicine 12/18/13 09/15/20 Mina Pretty DO PCP - General Internal Medicine 09/16/20 Shweta Boucher MD PCP - General Internal Medicine 01/12/21 10/10/21 Ora Ronquillo MD [address] [place] [address] PCP - General Internal Medicine 10/11/21 Jl Mendez MD [address] [place] [address] Specialist Cardiovascular Disease 10/13/21 Jannetet Boudreaux MD [address] [address] Surgeon Neurosurgery 04/07/22 Tenisha Mendieta PA-C [address] [address] Specialist Neurosurgery 04/07/22 Julio Monk PA-C [address] [address] Specialist Neurosurgery 04/07/22 Luis Armando Eller MD [address] [address] Specialist ORTHOPEDIC SURGERY 10/01/23 Jayesh Pineda MD 305 [place] [address] Specialist Endocrinology 10/01/23 Kelsi Tejada MD 305 [place] [address] Specialist Allergy & Immunology 10/01/23 Pretty Le MD 175 [facility] [address] [place] [address] Specialist Pulmonology 10/01/23 Vesta Michael PA-C 300 [facility] 210 [place] [address] Specialist Vascular Surgery 10/01/23 [facility] 46 [place] [address] Specialist Optometry 10/01/23 documented as of this encounter
--- OUTSIDE RECORDS SUMMARY | 2024-05-13 12:12 | XMS_ITS | Encounter Summary ---
Author Organization [facility] Address [address] [place] [address] Care Team Providers Care Media Clerk Name Role Phone Geno Cueva MD Primary Care Provider Unavailable Teressa Solis DO Primary Care Pro vider Unavailable Mina Pretty DO Primary Care Provider Ailyn Shweta Pretty MD Primary Care Provider Ora Diaz MD Primary Care Prov ider Jl Mendez MD Unavailable Jannette Boudreaux MD Unavailable [phone] Tenisha Mendieta PA-C Unavailable [phone] Julio Monk PA-C Unavailable [phone] Luis Armando Eller MD Unavailable [phone] Jayesh Pineda MD Unavailable Kelsi Tejada MD Unavailable Unavailable Pretty Le MD Unavailable Vesta Michael-Pina Unavailable [phone] [facility] Unavailable [phone] Encounter Details Date Type Department Care Team Description 03/11/2013 Tape Recorder Repairer Report Medical Records [address] [place] [address] Zoltan Chu Social History Tobacco Use Types [...] on filedocumented in this encounter Care Teams Media Clerk Relationship Specialty Start Date End Date Geno Cueva MD PCP - General Internal Medicine 06/28/1212/17/13 Teressa Solis DO PCP - General Internal Medicine 12/18/13 09/15/20 Mina Pretty DO PCP - General Internal Medicine 09/16/20 Shweta Boucher MD PCP - General Internal Medicine 01/12/21 10/10/21 Ora Ronquillo MD [address] [place] [address] PCP - General Internal Medicine 10/11/21 Jl eMndez MD [address] [place] [address] Dr Montiel [address] [place] [address] Specialist Cardiovascular Disease 10/13/21 Jannette Boudreaux MD [address] [address] Surgeon Neurosurgery 04/07/22 Tenisha Mendieta PA-C [address] [address] Specialist Neurosurgery 04/07/22 Julio Monk PA-C 175 [facility] [address] [place] [address] Specialist Neurosurgery 04/07/22 Luis Armando Eller MD [address] [address] Specialist ORTHOPEDIC SURGERY 10/01/23 Jayesh Pineda MD [address] [place] [address] Specialist Endocrinology 10/01/23 Kelsi Tejada MD 305 [place] [address] Specialist Allergy & Immunology 10/01/23 Pretty Le MD 175 [facility] [address] [place] [address] Specialist Pulmonology 10/01/23 Vesta Michael PA-C 300 [facility] 210 [place] [address] Specialist Vascular Surgery 10/01/23 [facility] 46 [place], [place] [address] Specialist Optometry 10/01/23 documented as of this encounter
--- OUTSIDE RECORDS SUMMARY | 2024-05-13 12:12 | XMS_ITS | Encounter Summary ---
Author Organization [facility] Address [address] [place] [address] Care Team Providers Care Engine Tester Name Role Phone Teressa Solis DO Primary Care Pro vider Unavailable Mina Pretty DO Primary Care Provider Shweta Cronin MD Primary Care Provider Ora Diaz MD Primary Care Prov ider Jl Mendez MD Unavailable Jannette Boudreaux MD Unavailable [phone] Tenisha Mendieta PA-C Unavailable [phone] Julio Monk PA-C Unavailable [phone] Luis Armando Eller MD Unavailable [phone] Jayesh Pineda MD Unavailable Kelsi Tejada MD Unavailable Unavailable Pretty Le MD Unavailable Vesta Michael PA-C Unavailable [facility] Unavailable Encounter Details Date Type Department Care Team Description 08/27/2015 Damage Inside Adjuster Report Medical Records 4 [place] [address] Jeff Ogden MD Social History Tobacco Use [...] on filedocumented in this encounter Care Teams Engine Tester Relationship Specialty Start Date End Date Teressa Solis DO PCP - General Internal Medicine 12/18/13 09/15/20 Mina Pretty DO PCP - General Internal Medicine 09/16/20 Shweta Boucher MD PCP - General Internal Medicine 01/12/21 10/10/21 Ora Ronquillo MD [address] [place] [address] PCP - General Internal Medicine 10/11/21 Jl Mendez MD [address] [place] [address] Specialist Cardiovascular Disease 10/13/21 Jannette Boudreaux MD [address] [address] Surgeon Neurosurgery 04/07/22 Tenisha Mendieta PA-C [address] [address] Specialist Neurosurgery 04/07/22 Julio Monk PA-C [address] [address] Specialist Neurosurgery 04/07/22 Luis Armando Eller MD [address] [address] Specialist ORTHOPEDIC SURGERY 10/01/23 Jayesh Pineda MD 305 [place] [address] Specialist Endocrinology 10/01/23 Kelsi Tejada MD 305 [place] [address] Specialist Allergy & Immunology 10/01/23 Pretty Le MD 175 [facility] [address] [place] [address] Specialist Pulmonology 10/01/23 Vesta Michael PA-C 300 [facility] 210 [place] [address] Specialist Vascular Surgery 10/01/23 [facility] 46 [place] [address] Specialist Optometry 10/01/23 documented as of this encounter
--- OUTSIDE RECORDS SUMMARY | 2024-05-13 12:12 | XMS_ITS | Encounter Summary ---
Author Organization [facility] Address [address] [place] [address] Care Team Providers Care Primer Waterproofing Machine Operator Name Role Phone Shweta Tellez MD Primary Care Provider Ora Diaz MD Primary Care Prov ider Jl Mendez MD Unavailable [phone] Jannette Boudreaux MD Unavailable [phone] Tenisha Mendieta PA-C Unavailable Julio Monk PA-C Unavailable Luis Armando Eller MD Unavailable [phone] Jayesh Pineda MD Unavailable Kelsi Tejada MD Unavailable Unavailable Pretty Le MD Unavailable Vesta Michael PA-C Unavailable [facility] Unavailable [phone] Encounter Details Date Type Department Care Team Description 05/11/2021 Orders Only Endocrinology - [place] [address] [place] [address] Jayesh Pineda MD [address] [place], [place] [address] Hyperparathyroidism (HCC) (Primary Dx) Social History Tobacco Use Types Packs/Day Years Used Date Smoking Tobacco: Never Smokeless Tobacco: Never Alcohol Use Standard Drinks/Week Comments No 0 (1 standard drink = 0.6 oz pur e alcohol) Education Answer Date Recorded What is the highest level of school you have completed or the highest degree you have received? 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, MACHINE TRACER, CHANDRAKANT) 06/14/2020 Sex Assigned at Date Recorded [...] unspecified documented in this encounter Care Teams Primer Waterproofing Machine Operator Relationship Specialty Start Date End Date Shweta Tellez MD PCP - General Internal Medicine 01/12/21 10/10/21 Ora Ronquillo MD 4 [place], [place] [id number] PCP - General Internal Medicine 10/11/21 Jl Mendez MD [address] [place] [address] [place] [address] Specialist Cardiovascular Disease 10/13/21 Jannette Boudreaux MD 175 [facility] [address] [place] [address] Surgeon Neurosurgery 04/07/22 Tenisha Mendieta PA-C 175 [facility] 300 [place] [address] Specialist Neurosurgery 04/07/22 Julio Monk PA-C 175 [facility] [address] [place] [address] Specialist Neurosurgery 04/07/22 Luis Armando Eller MD 175 [facility] [address] [place] [address] Specialist ORTHOPEDIC SURGERY 10/01/23 Jayesh Pineda MD 305 [place] [address] Specialist Endocrinology 10/01/23 Kelsi Tejada MD 305 [place] [address] Specialist Allergy & Immunology 10/01/23 Pretty Le MD 175 [facility] 200 [place] [address] Specialist Pulmonology 10/01/23 Vesta Michael PA-C 300 [facility] [address] [place] [address] Specialist Vascular Surgery 10/01/23 [facility] [address] [place] [address] Specialist Optometry 10/01/23 documented as of this encounter
--- OUTSIDE RECORDS SUMMARY | 2024-05-13 12:12 | XMS_ITS | Encounter Summary ---
Author Organization [facility] Address [address] [place] [address] Care Team Providers Care Rn Imaging Name Role Phone Teressa Solis DO Primary Care Pro vider Unavailable Mina Pretty DO Primary Care Provider Shweta Cronin MD Primary Care Provider Ora Diaz MD Primary Care Prov ider Jl Mendez MD Unavailable [phone] Jannette Boudreaux MD Unavailable [phone] Tenisha Mendieta PA-C Unavailable Julio Monk PA-C Unavailable Luis Armando Eller MD Unavailable [phone] Jayesh Pineda MD Unavailable Kelsi Tejada MD Unavailable Unavailable Pretty Le MD Unavailable Vesta Michael PA-C Unavailable [facility] Unavailable [phone] Encounter Details Date Type Department Care Team Description 06/09/2020 Garbage Collector Driver Report Medical Records 4 [place] [address] Randy Domínguez MD Social History Tobacco Use [...] on filedocumented in this encounter Care Teams Rn Imaging Relationship Specialty Start Date End Date Teressa Solis DO PCP - General Internal Medicine 12/18/13 09/15/20 Mina Pretty DO PCP - General Internal Medicine 09/16/20 Shweta Boucher MD PCP - General Internal Medicine 01/12/21 10/10/21 Ora Ronquillo MD [address] [place] [address] PCP - General Internal Medicine 10/11/21 Jl Mendez MD [address] [place] [address] Dr Mont[address] [place] [address] Specialist Cardiovascular Disease 10/13/21 Jannette Boudreaux MD [address] [address] Surgeon Neurosurgery 04/07/22 Tenisha Mendieta PA-C [address] [address] Specialist Neurosurgery 04/07/22 Julio Monk PA-C [address] [address] Specialist Neurosurgery 04/07/22 Luis Armando Eller MD [address] [address] Specialist ORTHOPEDIC SURGERY 10/01/23 Jayesh Pineda MD 305 [place] [address] Specialist Endocrinology 10/01/23 Kelsi Tejada MD 305 [place] [address] Specialist Allergy & Immunology 10/01/23 Pretty Le MD 175 [facility] [address] [place] [address] Specialist Pulmonology 10/01/23 Vesta Michael PA-C 300 [facility] 210 [place] [address] Specialist Vascular Surgery 10/01/23 [facility] [address] [place] [address] Specialist Optometry 10/01/23 documented as of this encounter
--- OUTSIDE RECORDS SUMMARY | 2024-05-13 12:12 | XMS_ITS | Data Portability ---
Author Organization [facility] [address] Address [address] [place] [address] Assessment No assessment recorded. Plan of Treatment Reminders Order Date Submit Date Provider Last Modified By Organization Details Last Modified Time Details Appointments None recorded. Lab rapid flu (A+B) 2021 022 marva zhang13 [address] [address], [address] [place], [address], 14:02:10 rapid SARS CoV 2 Ag, QL IA, respiratory specimen 2021 022 [facility] [address], [address] [place], [address], 14:02:10 Referral None recorded. Procedures None recorded. Surgeries None recorded. Imaging None recorded. Medication Orders Tamiflu 75 mg capsule 2021 [id number], [phone] [place], [address], 03:31:38 promethazin e-DM 6.25 mg-15 mg/5 mL oral syrup 2021 [id number], [address] [place], [address], 14:02:13 Patient TargetsNo targets recorded. Patient Instructions Encounter Date Encounter Id Patient Instructions Last Modified By Organization Details Last Modified Time 02/20/2022 [id number] You should follow-up with your PCP in [...] y speci men Unknown Analyte Not Available [id number] [place] [address] [address] [place], [address], 02/20/2022 13:38:01 02/21/20 22 02/20/2022 rapid SARS CoV 2 Ag, QL IA, respi rator y speci men Unknown Analyte negati ve Not Available ruiin gf [address] [place], [address], 02/20/2022 13:38:01 02/21/20 22 02/20/2022 rapid flu (A+B) Unknown Analyte negati ve Not Available sprin gf [address] [place], [address], 02/20/2022 13:24:32 02/21/20 22 02/20/2022 rapid flu (A+B) Unknown Analyte Normal = Negati ve Not Available sprin gf [address] [place], [address], 02/20/2022 13:24:32 02/21/20 22 02/20/2022 rapid flu (A+B) Unknown Analyte negati ve Not Available _sprin gf [address] [place], [address], 02/20/2022 13:24:32 02/21/20 22 02/20/2022 rapid flu (A+B) Unknown Analyte Normal = Negati ve Not Available [address] [place], [address], 02/20/2022 13:24:32 Result Notes None recorded. Problems Name Problem SNOMED Code Status Onset Date Resolution Date Notes Provider Name and Address Organization Details Recorded Time Hypertensive disorder 92273444 Active 2021 Layne Trevino null, PA - [facility] 2 13:21:27 Hyperlipidemia 04289249 Active 2021 Layne Trevino null, PA - [facility] 2 13:21:42 Thyroiditis 17944607 Active 2021 Laynetristen Trevino null, PA - [facility] 2 13:21:59 Environmental allergy 239607925 Active 2021 Layne Trevino null, PA - [facility] 2 13:22:12 Migraine 73246143 Active 2021 Layne Trevino null, PA - [facility] 2 13:22:21 Diabetes mellitus 42005023 Active 2021 Layne Trevino null, PA - [facility] 2 13:22:34 Asthma 528466728 Active 2021 Layne Trevino null, PA - [...] Name and Address Organization Details Recorded Time 32247 Product containin g penicilli n (product) medicatio n swelling Not available high 02/20/2022 54911 8001 SNOMED Layne Trevino null, PA - [facility] 2 13:13:07 20735 Duricef medicatio n swelling Not available Not available 02/20/2022 26687 6 RxNorm Layne Trevino null, PA - [facility] 2 13:13:25 65083 Medrol medicatio n swelling Not available Not available 02/20/202201830 2 RxNorm Layne Trevino null, PA - [facility] 2 13:13:43 30977 oxycodone medicatio n Not available Not available Not available 02/20/2022 7804 RxNorm Layne Trevino null, PA - [facility] 2 13:13:52 61197 chocolate flavor food,medi cation Not available Not available Not available 02/20/2022 62427 UNDarren Trevino null, PA - [facility] 2 13:14:02 98453 almond allergeni c extract food Not available Not available Not available 02/20/2022 42697 7 RxNorm Layne Trevino null, PA - [facility] 2 13:14:09 99261 Canis lupus familiari s extract environme nt Not available Not available Not available 02/20/2022 33183 4 RxNorm Layne Trevino null, PA - [facility] 2 13:14:18 17137 cat dander environme nt Not available Not available Not available 02/20/2022 01787 UNDarren Trevino null, PA - [facility] 2 13:14:22 25616 rabbit dander environme nt Not available Not available Not available 02/20/2022 42009 UNDarren Trevino null, PA - [facility] 2 13:14:29 40376 latex environme nt,medica tion Not available Not available Not available 02/20/2022 96701 91 RxNorm Layne Trevino null, PA - [facility] 2 13:14:36 90042 house dust mite environme nt Not available Not available Not available 02/20/2022 44131 UNK Layne Trevino null, PA - [facility] 2 13:14:44 66787 POLLEN EXTRACTS environme nt,medica tion Not available Not available Not available 02/20/2022 15852 6 RxNorm Layne Trevino null, PA - [facility] 2 13:14:56 36278 grass pollen environme nt,medica tion Not available Not available Not available 02/20/2022 06588 UNK Layne Trevino null, PA - [facility] 2 13:15:03 80424 ethinyl estradiol / levonorge strel medicatio n Not available Not available Not available 02/20/2022 92369 8 RxNorm Layne Trevino null, PA - [...] Updated DateTime 2 162.56 cm 44.6 kg/m2 680154. 02 g 100 % 100 % 85 /min 20 /min 98.8 [degF] 159 mm[Hg] 88 mm[Hg] [facility] 13:12:06 Social History Question Answer Notes LastModified by Organizat ion Details LastModified Time Tobacco Smoking Status Never Smoker [facility] 02/20/2022 13:23:07 What Is Your Level Of Alcohol Consumption? Occasional [email or web address] Information not available 02/20/2022 Have You Had Direct Contact, Or Contact During Intimacy, With Monkeypox Rash, Scabs, Or Body Fluids From A Person With Monkeypox? No [email or web address] Information not available 02/20/2022 Do You Use Any Illicit Or Recreational Drugs? No [email or web address] Information not available 02/20/2022 Have You Recently Traveled Abroad? No [email or web address] Information not available 02/20/2022 Sex: Unknown Functional Status None recorded. Mental Status None recorded. Family History Nothing Reported. Medical History No medical history recorded. Gynecological HistoryNo gynecological history recorded. Obstetrics History GPAL:G 0 P 0 0 0 0 Immunizations Vaccine Type Date Status Note Provider Nam e and Address Organization Details Recorded Time SARS-COV-2 (COVID-19) vaccine, UNSPECIFIED 09/09/2020 completed [facility] 02/20/2022 13:19:15 Past Encounters Encounter ID Performer Location Encounter Start Date Encounter Closed Date Diagnosis/Indication Diagnosis SNOMED-CT Code Diagnosis ICD10 Code Diagnosis Note [id number] [address] [facility] [address] [place] [address] 04/01/2019 17:17:25 04/01/2019 18:28:03 [id number] [place] [address] [facility] [address] [place] [address] 02/20/2022 12:02:53 02/20/2022 14:03:53 Generalized aches and pains 86851795 R52 Viral syndrome 738088859 B34.9 Health Concerns Section Related Observation LastModified by Organization Detai ls LastModified Time None Recorded Concern Status LastModified by Organization Details LastModified Time None Recorded Advance Directives Directive None Recorded Payers Encounter Date Sequence Insurance Name Policy Number Policy Saleh Covered Member ID Saleh Member ID Guarantor Name 04/01/2019 1 [facility] (MEDICAID REPLACEMENT - HMO) MAGDI Ana Luisa A House [id number] Ana Luisa A House 02/20/2022 1 [facility] (MEDICAID REPLACEMENT - HMO) [place] Ana Luisa A House [id number] Ana Luisa A House Notes Date Note [...] drip;hurts to breath Evelina Xiao MD [address] [place], [address], [place] - [facility] 02/20/2022 20:29:48 OBGyn Episode No OBEpisode recorded.
--- OUTSIDE RECORDS SUMMARY | 2024-05-13 12:12 | XMS_ITS | Encounter Summary ---
Author Organization [facility] Address [address] [place] [address] Care Team Providers Care Director Operating Room Name Role Phone Teressa Solis DO Primary Care Pro vider Unavailable Mina Pretty DO Primary Care Provider Shweta Cronin MD Primary Care Provider Ora Diaz MD Primary Care Prov ider Jl Mendez MD Unavailable Jannette Buodreaux MD Unavailable [phone] Tenisha Mendieta PA-C Unavailable [phone] Julio Monk PA-C Unavailable Luis Armando Eller MD Unavailable [phone] Jayesh Pineda MD Unavailable Kelsi Tejada MD Unavailable Unavailable Pretty Le MD Unavailable Vesta Michael PA-C Unavailable [facility] Unavailable [phone] Reason for Visit * Reason Onset Date Comments Faxed Order 11/03/2016 Encounter Details Date Type Department Care Team Description 11/03/2016 Telephone Adult [address] [address] Teressa Solis DO Faxed Order [...] * Telephone Encounter - Shaylee Willson - 11/03/2016 2:13 PM EDT Faxed orders received from [facility] Physical Therapy, please sign and fax back to [phone]. documented in this encounter Plan of Treatment Not on file documented as of this encounter Visit Diagnoses Not on filedocumented in this encounter Care Teams Director Operating Room Relationship Specialty Start Date End Date Teressa Solis, PCP - General Internal Medicine 12/18/13 09/15/20 Mina Pretty DO PCP - General Internal Medicine 09/16/20 Shweta Boucher MD PCP - General Internal Medicine 01/12/21 10/10/21 Ora Ronquillo MD [address] [place] [address] PCP - General Internal Medicine 10/11/21 Jl Mendez MD [address] [place] [address] Dr Montiel [address] [place] [address] Specialist Cardiovascular Disease 10/13/21 Jannette Boudreaux MD [address] [address] Surgeon Neurosurgery 04/07/22 Tenisha Mendieta PA-C [address] [address] Specialist Neurosurgery 04/07/22 Julio Monk PA-C [address] [address] Specialist Neurosurgery 04/07/22 Luis Armando Eller MD 175 [facility] [address] [place] [address] Specialist ORTHOPEDIC SURGERY 10/01/23 Jayesh Pineda MD 305 [place] [address] Specialist Endocrinology 10/01/23 Kelsi Tejada MD 305 [place] [address] Specialist Allergy & Immunology 10/01/23 Pretty Le MD 175 [facility] [address] [place] [address] Specialist Pulmonology 10/01/23 Vesta Michael PA-C 300 [facility] [address] [place] [address] Specialist Vascular Surgery 10/01/23 [facility] [address] [place] [address] Specialist Optometry 10/01/23 documented as of this encounter
--- OUTSIDE RECORDS SUMMARY | 2024-05-13 12:12 | XMS_ITS | Encounter Summary ---
Author Organization [facility] Address [address] [place] [address] Care Team Providers Care Clay Press Operator Name Role Phone Geno Cueva MD Primary Care Provider Unavailable eTressa Solis DO Primary Care Pro vider Unavailable Mina Pretty DO Primary Care Provider Ailyn Shweta Pretty MD Primary Care Provider Ora Diaz MD Primary Care Prov ider Jl Mendez MD Unavailable Jannette Boudreaux MD Unavailable [phone] Tenisha Mendieta PA-C Unavailable Julio Monk PA-C Unavailable [phone] Luis Armando Ellre MD Unavailable [phone] Jayesh Pineda MD Unavailable Kelsi Tejada MD Unavailable Unavailable Pretty Le MD Unavailable Vesta Michael-Pina Unavailable [phone] [facility] Unavailable [phone] Encounter Details Date Type Department Care Team Description 03/24/2013 Meter Shop Supervisor Report Medical Records [address] [place] [address] Narinder Franco MD Social History Tobacco Use [...] on filedocumented in this encounter Care Teams Clay Press Operator Relationship Specialty Start Date End Date Geno Cueva MD PCP - General Internal Medicine 06/28/1212/17/13 Teressa Solis DO PCP - General Internal Medicine 12/18/13 09/15/20 Mina Pretty DO PCP - General Internal Medicine 09/16/20 1 Shweta Tellez MD PCP - General Internal Medicine 01/12/21 10/10/21 Hiwot Couch, Ora Kelly MD [address] [place] [address] PCP - General Internal Medicine 10/11/21 Jl Mendez MD [address] [place] [address] Dr Mont[address] [place] [address] Specialist Cardiovascular Disease 10/13/21 Jannette Boudreaux MD [address] [address] Surgeon Neurosurgery 04/07/22 Tenisha Mendieta PA-C [address] [address] Specialist Neurosurgery 04/07/22 Julio Monk PA-C [address] [address] Specialist Neurosurgery 04/07/22 Luis Armando Eller MD [address] [address] Specialist ORTHOPEDIC SURGERY 10/01/23 Jayesh Pineda MD [address] [place] [address] Specialist Endocrinology 10/01/23 Kelsi Tejada MD [address] [place] [address] Specialist Allergy & Immunology 10/01/23 Pretty Le MD 175 [facility] [address] [place] [address] Specialist Pulmonology 10/01/23 Vesta Michael PA-C 300 [facility] [address] [place] [address] Specialist Vascular Surgery 10/01/23 [facility] [address] [place] [address] Specialist Optometry 10/01/23 documented as of this encounter
--- OUTSIDE RECORDS SUMMARY | 2024-05-13 12:12 | XMS_ITS | Encounter Summary ---
Author Organization [facility] Address [address] [place] [address] Care Team Providers Care Naphthol Soaping Machine Operator Name Role Phone Ora Ronquillo MD Primary Care Prov ider Jl Mendez MD Unavailable Jannette Boudreaux MD Unavailable [phone] Teinsha Mendieta PA-C Unavailable Julio MonkC Unavailable Luis Armando Eller MD Unavailable [phone] Jayesh Pineda MD Unavailable Kelsi Tejada MD Unavailable Unavailable Pretty Le MD Unavailable Vesta Michael PA-Pina Unavailable [phone] [facility] Unavailable [phone] Encounter Details Date Type Department Care Team Description 02/15/2023 Briquette Maker Report Medical Records [address] [place] [address] Kelsi Tejada MD Social History Tobacco Use Types Packs/Day Years Used Date Smoking Tobacco: Never Smokeless Tobacco: Never Alcohol Use Standard Drinks/Week Comments No 0 (1 standard drink = 0.6 oz pur e alcohol) Education Answer Date Recorded What is the highest level of school you have completed or the highest degree you have received? 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, SALES TEAM LEADER, CHANDRAKANT) 06/14/2020 Sex Assigned at Date Recorded [...] on filedocumented in this encounter Care Teams Naphthol Soaping Machine Operator Relationship Specialty Start Date End Date Ora Ronquillo MD [address] [place] [address] PCP - General Internal Medicine 10/11/21 Jl Mendez MD [address] [place] [address] Dr Montiel [address] [place] [address] Specialist Cardiovascular Disease 10/13/21 Jannette Boudreaux MD [address] [address] Surgeon Neurosurgery 04/07/22 Tenisha Mendieta PA-C [address] [address] Specialist Neurosurgery 04/07/22 Julio Monk PA-C 175 [facility] 300 [place] [address] Specialist Neurosurgery 04/07/22 Luis Armando Eller MD [address] [address] Specialist ORTHOPEDIC SURGERY 10/01/23 Jayesh Pineda MD 305 [place] [address] Specialist Endocrinology 10/01/23 Kelsi Tejada MD 305 [place] [address] Specialist Allergy & Immunology 10/01/23 Pretty Le MD 175 [facility] 200 [place] [address] Specialist Pulmonology 10/01/23 Vesta Michael PA-C 300 [facility] [address] [place] [address] Specialist Vascular Surgery 10/01/23 [facility] [address] [place] [address] Specialist Optometry 10/01/23 documented as of this encounter
--- OUTSIDE RECORDS SUMMARY | 2024-05-13 12:12 | XMS_ITS | Encounter Summary ---
Author Organization [facility] Address [address] [place] [address] Care Team Providers Care Assembler Sandal Parts Name Role Phone Ora Ronquillo MD Primary Care Prov ider Jl Mendez MD Unavailable [phone] Jannette Boudreaux MD Unavailable [phone] Tenisha Mendieta PA-C Unavailable [phone] Julio Monk PA-C Unavailable Luis Armando Eller MD Unavailable [phone] Jayesh Pineda MD Unavailable Kelsi Tejada MD Unavailable Unavailable Pretty Le MD Unavailable Vesta Michael PA-C Unavailable [facility] Unavailable Reason for Visit * Reason Onset Date Comments Wound Infection 01/18/2023 Pt feels she vini ht have a wound infection in the area of her Minor surgery Encounter Details Date Type Department Care Team Description 01/18/2023 Telephone General Surgery - [place] [address] [facility] [address] [place] [address] Unruly Ferrera MD [address] [address] Wound Infection (Pt feels she [...] 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, URBAN DESIGN CONSULTANT, CHANDRAKANT) 06/14/2020 Sex Assigned at Date [...] on filedocumented in this encounter Care Teams Assembler Sandal Parts Relationship Specialty Start Date End Date Ora Ronquillo MD [address] [place] [address] PCP - General Internal Medicine 10/11/21 Jl Mendez MD [address] [place] [address] [place] [address] Specialist Cardiovascular Disease 10/13/21 Jannette Boudreaux MD 175 [facility] 300 [place] [address] Surgeon Neurosurgery 04/07/22 Tenisha Mendieta PA-C 175 [facility] 300 [place] [address] Specialist Neurosurgery 04/07/22 Julio Monk PA-C 175 [facility] 300 [place] [address] Specialist Neurosurgery 04/07/22 Luis Armando Eller MD [address] [address] Specialist ORTHOPEDIC SURGERY 10/01/23 Jayesh Pineda MD 305 [place] [address] Specialist Endocrinology 10/01/23 Kelsi Tejada MD 305 [place] [address] Specialist Allergy & Immunology 10/01/23 Pretty Le MD 175 [facility] 200 [place] [phone] Specialist Pulmonology 10/01/23 Vesta Michael PA-C 300 [facility] 210 [place] [address] Specialist Vascular Surgery 10/01/23 [facility] [address] [place] [address] Specialist Optometry 10/01/23 documented as of this encounter
--- OUTSIDE RECORDS SUMMARY | 2024-05-13 12:12 | XMS_ITS | Encounter Summary ---
Author Organization [facility] Address [address] [place] [address] Care Team Providers Care Registered Dental Hygienist Name Role Phone Teressa Solis DO Primary Care Pro vider Unavailable Mina Pretty DO Primary Care Provider Shweta Cronin MD Primary Care Provider Ora Diaz MD Primary Care Prov ider Jl Mendez MD Unavailable Jannette Boudreaux MD Unavailable [phone] Tenisha Mendieta PA-C Unavailable [phone] Julio Monk PA-C Unavailable Luis Armando Eller MD Unavailable [phone] Jayesh Pineda MD Unavailable Kelsi Tejada MD Unavailable Unavailable Pretty Le MD Unavailable Vesta Michael PA-C Unavailable [facility] Unavailable [phone] Encounter Details Date Type Department Care Team Description 04/29/2016 [facility] [address] [address] Teressa Solis DO Social History [...] EST Last lab 08/11/15=21 Last ov with See 04/10/16 * Telephone Encounter - Lubna Thornton M.A. - 04/29/2016 9:04 AM ESTFrom: Ana Luisa House To: Teressa Grace DO Sent: 04/29/2016 2:36 AM EST Subject: Medication Renewal Request Original authorizing provider: DO Ana Luisa West would like a refill of the following medications: Cholecalciferol (VITAMIN D) 1000 UNITS Cap [Teressa Gallegos DO] Preferred pharmacy: [facility] [address] [place] [address] - [address] [place] [address] AT [facility] [address] Comment: Pharmacy states I don't have more refills. This is for my Vitamin D deficiency. documented in this encounter Plan of Treatment Not on file documented as of this encounter Visit Diagnoses Not on filedocumented in this encounter Care Teams Registered Dental Hygienist Relationship Specialty Start Date End Date Teressa Solis DO PCP - General Internal Medicine 12/18/13 09/15/20 Mina Pretty DO PCP - General Internal Medicine 09/16/20 1 Shweta Tellez MD PCP - General Internal Medicine 01/12/21 10/10/21 Ora Ronquillo MD [address] [place] [address] PCP - General Internal Medicine 10/11/21 Jl Mendez MD [address] [place] [address] Dr Montiel [address] [place] [address] Specialist Cardiovascular Disease 10/13/21 Jannette Boudreaux MD [address] [address] Surgeon Neurosurgery 04/07/22 Tenisha Mendieta PA-C 175 [facility] 300 [place] [address] Specialist Neurosurgery 04/07/22 Julio Monk PA-C 175 [facility] 300 [place] [address] Specialist Neurosurgery 04/07/22 Luis Armando Eller MD [address] [address] Specialist ORTHOPEDIC SURGERY 10/01/23 Jayesh Pineda MD 305 [place] [address] Specialist Endocrinology 10/01/23 Kelsi Tejada MD 305 [place] [address] Specialist Allergy & Immunology 10/01/23 Pretty Le MD 175 [facility] 200 [place] [address] Specialist Pulmonology 10/01/23 Vesta Michael PA-C 300 [facility] 210 [place] [address] Specialist Vascular Surgery 10/01/23 [facility] 46 [place], [place] [address] Specialist Optometry 10/01/23 documented as of this encounter
--- OUTSIDE RECORDS SUMMARY | 2024-05-13 12:12 | XMS_ITS | Encounter Summary ---
Author Organization [facility] Address [address] [place] [address] Care Team Providers Care Club Former Name Role Phone Teressa Solis DO Primary Care Pro vider Unavailable Mina Pretty DO Primary Care Provider Shweta Cronin MD Primary Care Provider Ora Diaz MD Primary Care Prov ider Jl Mendez MD Unavailable [phone] Jannette Boudreaux MD Unavailable [phone] Tenisha Mendieta PA-C Unavailable [phone] Julio Monk PA-C Unavailable Luis Armando Eller MD Unavailable [phone] Jayesh Pineda MD Unavailable Kelsi Tejada MD Unavailable Unavailable Pretty Le MD Unavailable Vesta Michael PA-C Unavailable [phone] [facility] Unavailable [phone] Encounter Details Date Type Department Care Team Description 07/21/2016 Special Education Itinerant Teacher Report Medical Records 4 [place] [address] Jeff Ogden MD Social History Tobacco Use [...] on filedocumented in this encounter Care Teams Club Former Relationship Specialty Start Date End Date Teressa Solis DO PCP - General Internal Medicine 12/18/13 09/15/20 Mina Pretty DO PCP - General Internal Medicine 09/16/20 Shweta Boucher MD PCP - General Internal Medicine 01/12/21 10/10/21 Ora Ronquillo MD [address] [place] [address] PCP - General Internal Medicine 10/11/21 Jl Mendez MD [address] [place] [address] Specialist Cardiovascular Disease 10/13/21 Jannette Boudreaux MD [address] [address] Surgeon Neurosurgery 04/07/22 Tenisha Mendieta PA-C [address] [address] Specialist Neurosurgery 04/07/22 Julio Monk PA-C [address] [address] Specialist Neurosurgery 04/07/22 Luis Armando Eller MD [address] [address] Specialist ORTHOPEDIC SURGERY 10/01/23 Jayesh Pineda MD 305 [place] [address] Specialist Endocrinology 10/01/23 Kelsi Tejada MD 305 [place] [address] Specialist Allergy & Immunology 10/01/23 Pretty Le MD 175 [facility] [address] [place] [address] Specialist Pulmonology 10/01/23 Vesta Michael PA-C 300 [facility] 210 [place] [address] Specialist Vascular Surgery 10/01/23 [facility] 46 [place] [address] Specialist Optometry 10/01/23 documented as of this encounter
--- OUTSIDE RECORDS SUMMARY | 2024-05-13 12:12 | XMS_ITS | Encounter Summary ---
Author Organization [facility] Address [address] [place] [address] Care Team Providers Care Mechanical Systems Designer Name Role Phone Geno Cueva MD Primary Care Provider Unavailable Teressa Solis DO Primary Care Pro vider Unavailable Mina Pretty DO Primary Care Provider Ailyn Shweta Pretty MD Primary Care Provider Ora Diaz MD Primary Care Prov ider Jl Mendez MD Unavailable Jannette Boudreaux MD Unavailable [phone] Tenisha Mendieta PA-C Unavailable Julio Monk PA-C Unavailable [phone] Luis Armando Eller MD Unavailable [phone] Jayesh Pineda MD Unavailable Kelsi Tejada MD Unavailable Unavailable Pretty Le MD Unavailable Vesta Michael-Pina Unavailable [phone] [facility] Unavailable [phone] Encounter Details Date Type Department Care Team Description 02/24/2013 Hospital Medical Records [address] [place] [address] Zoltan Chu Social History Tobacco Use Types Packs/Day Years Used Date Smoking Tobacco: Never Smokeless Tobacco: Never Alcohol Use Standard Drinks/Week Comments No 0 (1 standard drink = 0.6 oz pur e alcohol) Education Answer Date Recorded What is the highest level of school you have completed or the highest degree you have received? 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) 06/14/2020 Sex Assigned at Date Recorded Female 08/03/2020 10:16 PM EDT Job Start Date Occupation Industry Not on file Not on file Not on file documented as of this encounter Plan of Treatment Not on file documented as of this encounter Visit Diagnoses Not on filedocumented in this encounter Care Teams Mechanical Systems Designer Relationship Specialty Start Date End Date Geno Cueva MD PCP - General Internal Medicine 06/28/1212/17/13 Teressa Solis, DO PCP - General Internal Medicine 12/18/13 09/15/20 Mina Pretty, PCP - General Internal Medicine 09/16/20 1 Shweta Tellez MD PCP - General Internal Medicine 01/12/21 10/10/21 Ora Ronquillo MD [address] [place] [address] PCP - General Internal Medicine 10/11/21 Jl Mendez MD [address] [place] [address] Dr Mont[address] [place] [address] Specialist Cardiovascular Disease 10/13/21 Jannette Boudreaux MD [address] [address] Surgeon Neurosurgery 04/07/22 Tenisha Mendieta PA-C [address] [address] Specialist Neurosurgery 04/07/22 Julio Monk PA-C 175 [facility] [address] [place] [address] Specialist Neurosurgery 04/07/22 Luis Armando Eller MD [address] [address] Specialist ORTHOPEDIC SURGERY 10/01/23 Jayesh Pineda MD 305 [place] [address] Specialist Endocrinology 10/01/23 Kelsi Tejada MD 305 [place] [address] Specialist Allergy & Immunology 10/01/23 Pretty Le MD 175 [facility] [address] [place] [address] Specialist Pulmonology 10/01/23 Vesta Michael PA-C 300 [facility] 210 [place] [address] Specialist Vascular Surgery 10/01/23 [facility] 46 [place] [address] Specialist Optometry 10/01/23 documented as of this encounter
--- OUTSIDE RECORDS SUMMARY | 2024-05-13 12:12 | XMS_ITS | Encounter Summary ---
Author Organization [facility] Address [address] [place] [address] Care Team Providers Care Knitted Cloth Examiner Name Role Phone Teressa Solis DO Primary Care Pro vider Unavailable Mina Pretty DO Primary Care Provider Shweta Cronin MD Primary Care Provider Ora Diaz MD Primary Care Prov ider Jl Mendez MD Unavailable [phone] Jannette Boudreaux MD Unavailable [phone] Tenisha Mendieta PA-C Unavailable Julio Monk PA-C Unavailable Luis Armando Eller MD Unavailable [phone] Jayesh Pineda MD Unavailable Kelsi Tejada MD Unavailable Unavailable Pretty Le MD Unavailable Vesta Michael PA-C Unavailable [facility] Unavailable [phone] Encounter Details Date Type Department Care Team Description 05/17/2020 Scientist Propagator Report Medical Records 4 [place] [address] Randy Domínguez MD Social History Tobacco Use [...] on filedocumented in this encounter Care Teams Knitted Cloth Examiner Relationship Specialty Start Date End Date Teressa Solis DO PCP - General Internal Medicine 12/18/13 09/15/20 Mina Pretty DO PCP - General Internal Medicine 09/16/20 Shweta Boucher MD PCP - General Internal Medicine 01/12/21 10/10/21 Ora Ronquillo MD [address] [place] [address] PCP - General Internal Medicine 10/11/21 Jl Mendez MD [address] [place] [address] Dr Mont[address] [place] [address] Specialist Cardiovascular Disease 10/13/21 Jannette Boudreaux MD [address] [address] Surgeon Neurosurgery 04/07/22 Tenisha Mendieta PA-C [address] [address] Specialist Neurosurgery 04/07/22 Julio Monk PA-C [address] [address] Specialist Neurosurgery 04/07/22 Luis Armando Eller MD [address] [address] Specialist ORTHOPEDIC SURGERY 10/01/23 Jayesh Pineda MD 305 [place] [address] Specialist Endocrinology 10/01/23 Kelsi Tejada MD 305 [place] [address] Specialist Allergy & Immunology 10/01/23 Pretty Le MD 175 [facility] [address] [place] [address] Specialist Pulmonology 10/01/23 Vesta Michael PA-C 300 [facility] 210 [place] [address] Specialist Vascular Surgery 10/01/23 [facility] 46 [place] [address] Specialist Optometry 10/01/23 documented as of this encounter
--- OUTSIDE RECORDS SUMMARY | 2024-05-13 12:12 | XMS_ITS | Encounter Summary ---
Author Organization [facility] Address [address] [place] [address] Care Team Providers Care Cross Country And Track And Field Coach Name Role Phone Teressa Solis DO Primary Care Pro vider Unavailable Mina Pretty DO Primary Care Provider Shweta Cronin MD Primary Care Provider Ora Diaz MD Primary Care Prov ider Jl Mendez MD Unavailable Jannette Boudreaux MD Unavailable [phone] Tenisha Mendieta PA-C Unavailable Julio Monk PA-C Unavailable [phone] Luis Armando Eller MD Unavailable [phone] Jayesh Pineda MD Unavailable Kelsi Tejada MD Unavailable Unavailable Pretty Le MD Unavailable Vesta Michael PA-C Unavailable [phone] [facility] Unavailable Encounter Details Date Type Department Care Team Description 06/10/2020 Refill Gastroenterology [facility] 175 [facility] [address] [place] [address] Luis Armando Staton MD Social [...] on filedocumented in this encounter Care Teams Cross Country And Track And Field Coach Relationship Specialty Start Date End Date Teressa Solis DO PCP - General Internal Medicine 12/18/13 09/15/20 Mina Pretty DO PCP - General Internal Medicine 09/16/20 1 Shweta Tellez MD PCP - General Internal Medicine 01/12/21 10/10/21 Ora Ronquillo MD [address] [place] [address] PCP - General Internal Medicine 10/11/21 Jl Mendez MD [address] [place] [address] Dr Montiel [address] [place] [address] Specialist Cardiovascular Disease 10/13/21 Jannette Boudreaux MD [address] [address] Surgeon Neurosurgery 04/07/22 Tenisha Mendieta PA-C [address] [address] Specialist Neurosurgery 04/07/22 Julio Monk PA-C [address] [address] Specialist Neurosurgery 04/07/22 Luis Armando Eller MD 175 [facility] 250 [place] [address] Specialist ORTHOPEDIC SURGERY 10/01/23 Jayesh Pineda MD 305 [place] [address] Specialist Endocrinology 10/01/23 Kelsi Tejada MD 305 [place] [address] Specialist Allergy & Immunology 10/01/23 Pretty Le MD 175 [facility] [address] [place] [address] Specialist Pulmonology 10/01/23 Vesta Michael PA-C 300 [facility] 210 [place] [address] Specialist Vascular Surgery 10/01/23 [facility] 46 [place] [address] Specialist Optometry 10/01/23 documented as of this encounter
--- OUTSIDE RECORDS SUMMARY | 2024-05-13 12:13 | XMS_ITS | Encounter Summary ---
Author Organization [facility] Address [address] [place] [address] Care Team Providers Care Freelance Translator Name Role Phone Mina Pretty DO Primary Care Provider Shweta Cronin MD Primary Care Provider Ora Diaz MD Primary Care Prov ider Jl Mendez MD Unavailable [phone] Jannette Boudreaux MD Unavailable [phone] Tenisha Mendieta PA-C Unavailable Julio Monk PA-C Unavailable [phone] Luis Armando Eller MD Unavailable [phone] Jayesh Pineda MD Unavailable Kelsi Tejada MD Unavailable Unavailable Pretty Le MD Unavailable Vesta Michael PA-C Unavailable [phone] [facility] Unavailable [phone] Encounter Details Date Type Department Care Team Description 09/17/2020 Orders Only Internal Medicine - [address] [place] [address] Darrick Schroeder PA-C Dysuria; Constipation, unspecified constipation type; Abdominal pain, unspecified abdominal location Social History Tobacco Use Types Packs/Day Years Used Date Smoking Tobacco: Never Smokeless Tobacco: Never Alcohol Use Standard Drinks/Week Comments No 0 (1 standard drink = 0.6 oz pur e alcohol) Education Answer Date Recorded What is the highest level of school you have completed or the highest degree you have received? 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 No / Unsure 09/16/2020 10:38 AM EDT documented as of this encounter Plan of Treatment Not on file documented as of this encounter Procedures Procedure Name Priority Date/Time Associated Diagnosis Comments CHG RADIOLOGIC EXAM ABDOMEN 2 VIEWS STAT 09/17/2020 Dysuria Constipation, unspecified constipation type Abdominal pain, unspecified abdominal location documented in this encounter Results * RADIOLOGIC EXAM ABDOMEN 2 VIEWS (09/17/2020) Darrick Schroeder PA-C RADIOLOGY documented in this encounter Visit Diagnoses Diagnosis Dysuria Constipation, unspecified constipation type Abdominal pain, unspecified abdominal location documented in this encounter Care Teams Freelance Translator Relationship Specialty Start Date End Date Mina Pretty DO PCP - General Internal Medicine 09/16/20 1 Shweta Tellez MD PCP - General Internal Medicine 01/12/21 10/10/21 Ora Ronquillo MD [address] [place] [address] PCP - General Internal Medicine 10/11/21 Jl Mendez MD [address] [place] [address] [place] [address] Specialist Cardiovascular Disease 10/13/21 Jannette Boudreaux MD [address] [address] Surgeon Neurosurgery 04/07/22 Tenisha Mendieta PA-C 175 [facility] 300 [place] [address] Specialist Neurosurgery 04/07/22 Julio Monk PA-C 175 [facility] 300 [place] [address] Specialist Neurosurgery 04/07/22 Luis Armando Eller MD 175 [facility] 250 [place] [address] Specialist ORTHOPEDIC SURGERY 10/01/23 Jayesh Pineda MD 305 [place] [address] Specialist Endocrinology 10/01/23 Kelsi Tejada MD 305 [place] [address] Specialist Allergy & Immunology 10/01/23 Pretty Le MD 175 [facility] 200 [place] [address] Specialist Pulmonology 10/01/23 Vesta Michael PA-C 300 [facility] 210 [place] [address] Specialist Vascular Surgery 10/01/23 [facility] 46 [place] [address] Specialist Optometry 10/01/23 documented as of this encounter
--- OUTSIDE RECORDS SUMMARY | 2024-05-13 12:13 | XMS_ITS | Encounter Summary ---
Author Organization [facility] Address [address] [place] [address] Care Team Providers Care Product Safety Specialist Name Role Phone Teressa Solis DO Primary Care Pro vider Unavailable Mina Pretty DO Primary Care Provider Shweta Cronin MD Primary Care Provider Ora Diaz MD Primary Care Prov ider Jl Mendez MD Unavailable Jannette Boudreaux MD Unavailable [phone] Tenisha Mendieta PA-C Unavailable Julio Monk PA-C Unavailable [phone] Luis Armando Eller MD Unavailable [phone] Jayesh Pineda MD Unavailable Kelsi Tejada MD Unavailable Unavailable Pretty Le MD Unavailable Vesta Michael PA-C Unavailable [phone] [facility] Unavailable Encounter Details Date Type Department Care Team Description 06/11/2018 Orders Only Adult Medicine [address] [id number] Teressa Solis DO Hypothyroidism due to acquired [...] Primary documented in this encounter Care Teams Product Safety Specialist Relationship Specialty Start Date End Date Teressa Solis DO PCP - General Internal Medicine 12/18/13 09/15/20 Mina Pretty DO PCP - General Internal Medicine 09/16/20 1 Shweta Tellez MD PCP - General Internal Medicine 01/12/21 10/10/21 Ora Ronquillo MD [address] [place] [address] PCP - General Internal Medicine 10/11/21 Jl Mendez MD [address] [place] [address] Dr Montiel [address] [place] [address] Specialist Cardiovascular Disease 10/13/21 Jannette Boudreaux MD [address] [address] Surgeon Neurosurgery 04/07/22 Tenisha Mendieta PA-C 175 [facility] 300 [place] [address] Specialist Neurosurgery 04/07/22 Julio Monk PA-C 175 [facility] [address] [place] [address] Specialist Neurosurgery 04/07/22 Luis Armando Eller MD 175 [facility] 250 [place] [address] Specialist ORTHOPEDIC SURGERY 10/01/23 Jayesh Pineda MD 305 [place] [address] Specialist Endocrinology 10/01/23 Kelsi Tejada MD 305 [place] [address] Specialist Allergy & Immunology 10/01/23 Pretty Le MD 175 [facility] [address] [place] [address] Specialist Pulmonology 10/01/23 Vesta Michael PA-C 300 [facility] 210 [place] [address] Specialist Vascular Surgery 10/01/23 [facility] 46 [place] [address] Specialist Optometry 10/01/23 documented as of this encounter
--- OUTSIDE RECORDS SUMMARY | 2024-05-13 12:13 | XMS_ITS | Encounter Summary ---
Author Organization [facility] Address [address] [place] [address] Care Team Providers Care Composition Board Press Operator Name Role Phone Teressa Solsi DO Primary Care Pro vider Unavailable Mina Pretty DO Primary Care Provider Shweta Cronin MD Primary Care Provider Ora Diaz MD Primary Care Prov ider Jl Mendez MD Unavailable [phone] Jannette Boudreaux MD Unavailable [phone] Tenisha Mendieta PA-C Unavailable [phone] Julio Monk PA-C Unavailable Luis Armando Eller MD Unavailable [phone] Jayesh Pineda MD Unavailable Kelsi Tejada MD Unavailable Unavailable Pretty Le MD Unavailable Vesta Michael PA-C Unavailable [facility] Unavailable Encounter Details Date Type Department Care Team Description 12/31/2018 Old Medical Records Medical Records [address] [place] [address] Abstract, Provider Social History Tobacco Use Types [...] on filedocumented in this encounter Care Teams Composition Board Press Operator Relationship Specialty Start Date End Date Teressa Solis DO PCP - General Internal Medicine 12/18/13 09/15/20 Mina Pretty DO PCP - General Internal Medicine 09/16/20 Shweta Boucher MD PCP - General Internal Medicine 01/12/21 10/10/21 Ora Ronquillo MD [address] [place] [address] PCP - General Internal Medicine 10/11/21 Jl Mendez MD [address] [place] [address] [place] [address] Specialist Cardiovascular Disease 10/13/21 Jannette Boudreaux MD [address] [address] Surgeon Neurosurgery 04/07/22 Tenisha Mendieta PA-C [address] [address] Specialist Neurosurgery 04/07/22 Julio Monk PA-C [address] [address] Specialist Neurosurgery 04/07/22 Luis Armando Eller MD [address] [address] Specialist ORTHOPEDIC SURGERY 10/01/23 Jayesh Pineda MD 305 [place] [address] Specialist Endocrinology 10/01/23 Kelsi Tejada MD 305 [place] [address] Specialist Allergy & Immunology 10/01/23 Pretty Le MD 175 [facility] [address] [place] [address] Specialist Pulmonology 10/01/23 Vesta Michael PA-C 300 [facility] [address] [place] [address] Specialist Vascular Surgery 10/01/23 [facility] 46 [place] [address] Specialist Optometry 10/01/23 documented as of this encounter
--- OUTSIDE RECORDS SUMMARY | 2024-05-13 12:13 | XMS_ITS | Encounter Summary ---
Author Organization [facility] Address [address] [place] [address] Care Team Providers Care Clinical Assistant Name Role Phone Teressa Solis DO Primary Care Pro vider Unavailable Mina Pretty DO Primary Care Provider Shweta Cronin MD Primary Care Provider Ora Diaz MD Primary Care Prov ider Jl Mendez MD Unavailable [phone] Jannette Boudreaux MD Unavailable [phone] Tenisha Mendieta PA-C Unavailable Julio Monk PA-C Unavailable Luis Armando Eller MD Unavailable [phone] Jayesh Pineda MD Unavailable Kelsi Tejada MD Unavailable Unavailable Pretty Le MD Unavailable Vesta Michael PA-C Unavailable [phone] [facility] Unavailable [phone] Encounter Details Date Type Department Care Team Description 06/21/2018 SCAN Medical Records 4 [place] [address] Abstract, Provider Social History Tobacco Use Types [...] on filedocumented in this encounter Care Teams Clinical Assistant Relationship Specialty Start Date End Date Teressa Solis DO PCP - General Internal Medicine 12/18/13 09/15/20 Mina Pretty DO PCP - General Internal Medicine 09/16/20 Shweta Boucher MD PCP - General Internal Medicine 01/12/21 10/10/21 Ora Ronquillo MD [address] [place] [address] PCP - General Internal Medicine 10/11/21 Jl Mendez MD [address] [place] [address] Dr Mont[address] [place] [address] Specialist Cardiovascular Disease 10/13/21 Jannette Boudreaux MD [address] [address] Surgeon Neurosurgery 04/07/22 Tenisha Mendieta PA-C [address] [address] Specialist Neurosurgery 04/07/22 Julio Monk PA-C [address] [address] Specialist Neurosurgery 04/07/22 Luis Armando Eller MD [address] [address] Specialist ORTHOPEDIC SURGERY 10/01/23 Jayesh Pineda MD 305 [place] [address] Specialist Endocrinology 10/01/23 Kelsi Tejada MD 305 [place] [address] Specialist Allergy & Immunology 10/01/23 Pretty Le MD 175 [facility] [address] [place] [address] Specialist Pulmonology 10/01/23 Vesta Michael PA-C 300 [facility] 210 [place] [address] Specialist Vascular Surgery 10/01/23 [facility] [address] [place] [address] Specialist Optometry 10/01/23 documented as of this encounter
--- OUTSIDE RECORDS SUMMARY | 2024-05-13 12:13 | XMS_ITS | Encounter Summary ---
Author Organization [facility] Address [address] [place] [address] Care Team Providers Care Pest Control Applicator Name Role Phone Ora Ronquillo MD Primary Care Prov ider Jl Mendez MD Unavailable [phone] Jannette Boudreaux MD Unavailable [phone] Tenisha Mendieta PA-C Unavailable Julio Monk PA-C Unavailable [phone] Luis Armando Eller MD Unavailable [phone] Jayesh Pineda MD Unavailable Kelsi Tejada MD Unavailable Unavailable Pretty Le MD Unavailable Vesta Michael PA-C Unavailable [phone] [facility] Unavailable Encounter Details Date Type Department Care Team Description 01/08/2023 SCAN [facility] 175 [facility] [address] [place] [address] Lorie Moore, DONN 1515 [facility] [place] [address] Social History Tobacco Use Types Packs/Day Years Used Date Smoking Tobacco: Never Smokeless Tobacco: Never Alcohol Use Standard Drinks/Week Comments No 0 (1 standard drink = 0.6 oz pur e alcohol) Education Answer Date Recorded What is the highest level of school you have completed or the highest degree you have received? 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, CONVENTIONAL MORTGAGE UNDERWRITER, CHANDRAKANT) 06/14/2020 Sex Assigned at Date Recorded [...] on filedocumented in this encounter Care Teams Pest Control Applicator Relationship Specialty Start Date End Date Ora Ronquillo MD [address] [place] [address] PCP - General Internal Medicine 10/11/21 Jl Mendez MD [address] [place] [address] Dr Mont[address] [place] [address] Specialist Cardiovascular Disease 10/13/21 Jannette Boudreaux MD [address] [address] Surgeon Neurosurgery 04/07/22 Tenisha Mendieta PA-C [address] [address] Specialist Neurosurgery 04/07/22 Julio Monk PA-C 175 [facility] [address] [place] [address] Specialist Neurosurgery 04/07/22 Luis Armando Eller MD [address] [address] Specialist ORTHOPEDIC SURGERY 10/01/23 Jayesh Pineda MD 305 [place] [address] Specialist Endocrinology 10/01/23 Kelsi Tejada MD 305 [place] [address] Specialist Allergy & Immunology 10/01/23 Pretty Le MD 175 [facility] [address] [place] [address] Specialist Pulmonology 10/01/23 Vesta Michael PA-C 300 [facility] 210 [place] [address] Specialist Vascular Surgery 10/01/23 [facility] 46 [place], [place] 0788489 Specialist Optometry 10/01/23 documented as of this encounter
--- OUTSIDE RECORDS SUMMARY | 2024-05-13 12:13 | XMS_ITS | Encounter Summary ---
Author Organization [facility] Address [address] [place] [address] Care Team Providers Care Fabric And Accessories Estimator Name Role Phone Mina Pretty DO Primary Care Provider Shweta Cronin MD Primary Care Provider Ora Diaz MD Primary Care Prov ider Jl Mendez MD Unavailable Jannette Boudreaux MD Unavailable [phone] Tenisha Mendieta PA-C Unavailable Julio Monk PA-C Unavailable Luis Armando Eller MD Unavailable [phone] Jayesh Pineda MD Unavailable Kelsi Tejada MD Unavailable Unavailable Pretty Le MD Unavailable Vesta Michael PA-C Unavailable [phone] [facility] Unavailable [phone] Reason for Visit * Reason Onset Date Comments APPOINTMENT 12/24/2020 pt needs to jasmina se a new pcp and schedule med fu appt for further refills Encounter Details Date Type Department Care Team Description 12/24/2020 [facility] [address] [id number] Mina Pretty DO APPOINTMENT (pt needs to [...] 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, CHEMISTRY ASSOCIATE, CHANDRAKANT) 06/14/2020 Sex Assigned at Date [...] on filedocumented in this encounter Care Teams Fabric And Accessories Estimator Relationship Specialty Start Date End Date Mina Pretty DO PCP - General Internal Medicine 09/16/20 1 Shweta Tellez MD PCP - General Internal Medicine 01/12/21 10/10/21 Ora Ronquillo MD [address] [place] [address] PCP - General Internal Medicine 10/11/21 Jl Mendez MD [address] [place] [address] Dr Mont[address] [place] [address] Specialist Cardiovascular Disease 10/13/21 Jannette Boudreaux MD [address] [address] Surgeon Neurosurgery 04/07/22 Tenisha Mendieta PA-C [address] [address] Specialist Neurosurgery 04/07/22 Julio Monk PA-C [address] [address] Specialist Neurosurgery 04/07/22 Luis Armando Eller MD 175 [facility] [address] [place] [address] Specialist ORTHOPEDIC SURGERY 10/01/23 Jayesh Pineda MD 305 [place] [address] Specialist Endocrinology 10/01/23 Kelsi Tejada MD 305 [place] [address] Specialist Allergy & Immunology 10/01/23 Pretty Le MD 175 [facility] [address] [place] [address] Specialist Pulmonology 10/01/23 Vesta Michael PA-C [address] [facility] [address] [place] [address] Specialist Vascular Surgery 10/01/23 [facility] 46 [place] [address] Specialist Optometry 10/01/23 documented as of this encounter
--- OUTSIDE RECORDS SUMMARY | 2024-05-13 12:13 | XMS_ITS | Encounter Summary ---
Author Organization [facility] Address [address] [place] [address] Care Team Providers Care Staker Surveying Name Role Phone Teressa Solis DO Primary Care Pro vider Unavailable Mina Pretty DO Primary Care Provider Shweta Cronin MD Primary Care Provider Ora Diaz MD Primary Care Prov ider Jl Mendez MD Unavailable Jannette Boudreaux MD Unavailable [phone] Tenisha Mendieta PA-C Unavailable Julio Monk PA-C Unavailable [phone] Luis Aramndo Eller MD Unavailable [phone] Jayesh Pineda MD Unavailable Kelsi Tejada MD Unavailable Unavailable Pretty Le MD Unavailable Vesta Michael PA-C Unavailable [phone] [facility] Unavailable Reason for Visit * Reason Comments E-prescribe Rx Request Encounter Details Date Type Department Care Team Description 07/17/2018 Refill Adult Medicine [address] [id number] Teressa Solis DO E-prescribe Rx Request Social [...] Telephone Encounter - Lubna Thornton M.A. - 07/17/2018 1:52 PM EDT Lab Results Component Value Date CHOL 134 06/07/2018 LDL 70 06/07/2018 HDL 36 06/07/2018 TRIG 143 06/07/2018 SGOT 18 06/07/2018 SGPT 41 06/07/2018 Pending ov with pcp 09/02/18 * Telephone Encounter - Mehdi Villegas - 07/17/2018 8:08 AM EDT Patient would like script to be: E-PRESCRIBED/FAXED TO PHARMACY WHEN WAS THE PATIENT'S LAST APPOINTMENT IN ADULT MEDICINE? 06/07/18 WHEN WAS THE LAST TIME THE PATIENT SAW THEIR PCP? Same as above Does patient have an upcoming appointment? Yes 09/02/18 (THE MEDICATION REQUESTED IS ON THE MED [...] N/A Patients current insurance carrier is: Payor: [employer] FFS / Plan: [employer] ALLIANCE / Product Type: MEDICAID RISK documented in this encounter Plan of Treatment Not on file documented as of this encounter Visit Diagnoses Not on filedocumented in this encounter Care Teams Staker Surveying Relationship Specialty Start Date End Date Teressa Solis DO PCP - General Internal Medicine 12/18/13 09/15/20 Mina Pretty DO PCP - General Internal Medicine 09/16/20 Shweta Boucher MD PCP - General Internal Medicine 01/12/21 10/10/21 Ora Ronquillo MD [address] [place] [address] PCP - General Internal Medicine 10/11/21 Jl Mendez MD [address] [place] [address] Dr Montiel [address] [place] [address] Specialist Cardiovascular Disease 10/13/21 Jannette Boudreaux MD [address] [address] Surgeon Neurosurgery 04/07/22 Tenisha Mendieta PA-C [address] [address] Specialist Neurosurgery 04/07/22 Julio Monk PA-C 175 [facility] 300 [place] [address] Specialist Neurosurgery 04/07/22 Luis Armando Eller MD [address] [address] Specialist ORTHOPEDIC SURGERY 10/01/23 Jayesh Pineda MD 305 [place] [address] Specialist Endocrinology 10/01/23 Kelsi Tejada MD 305 [place] [address] Specialist Allergy & Immunology 10/01/23 Pretty Le MD 175 [facility] [address] [place] [address] Specialist Pulmonology 10/01/23 Vesta Michael PA-C 300 [facility] 210 [place] [address] Specialist Vascular Surgery 10/01/23 [facility] 46 [place] [address] Specialist Optometry 10/01/23 documented as of this encounter
--- OUTSIDE RECORDS SUMMARY | 2024-05-13 12:13 | XMS_ITS | Encounter Summary ---
Author Organization [facility] Address [address] [place] [address] Care Team Providers Care Policy Intern Name Role Phone Ora Ronquillo MD Primary Care Prov ider Jl Mendez MD Unavailable Jannette Boudreaux MD Unavailable [phone] Tenisha Mendieta PA-C Unavailable Julio MonkC Unavailable Luis Armando Eller MD Unavailable [phone] Jayesh Pineda MD Unavailable Kelsi Tejada MD Unavailable Unavailable Pretty Le MD Unavailable Vesta Michael PA-C Unavailable [phone] [facility] Unavailable [phone] Encounter Details Date Type Department Care Team Description 11/14/2022 Flooring Salesperson Report Medical Records 4 [place] [address] Jensen Nam MD Social History Tobacco Use Types Packs/Day Years Used Date Smoking Tobacco: Never Smokeless Tobacco: Never Alcohol Use Standard Drinks/Week Comments No 0 (1 standard drink = 0.6 oz pur e alcohol) Education Answer Date Recorded What is the highest level of school you have completed or the highest degree you have received? 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, OYSTER CULTURIST, CHANDRAKANT) 06/14/2020 Sex Assigned at Date Recorded [...] on filedocumented in this encounter Care Teams Policy Intern Relationship Specialty Start Date End Date Ora Ronquillo MD 444 [place] [address] PCP - General Internal Medicine 10/11/21 Jl Mendez MD [address] [place] [address] Dr Montiel [address] [place] [address] Specialist Cardiovascular Disease 10/13/21 Jannette Boudreaux MD 175 [facility] 300 [place] [address] Surgeon Neurosurgery 04/07/22 Tenisha Mendieta PA-C [address] [address] Specialist Neurosurgery 04/07/22 Julio Monk PA-C [address] [facility] 300 [place] [address] Specialist Neurosurgery 04/07/22 Luis Armando Eller MD [address] [address] Specialist ORTHOPEDIC SURGERY 10/01/23 Jayesh Pineda MD 305 [place] [address] Specialist Endocrinology 10/01/23 Kelsi Tejada MD 305 [place] [address] Specialist Allergy & Immunology 10/01/23 Pretty Le MD 175 [facility] 200 [place] [address] Specialist Pulmonology 10/01/23 Vesta Michael PA-C 300 [facility] 210 [place] [address] Specialist Vascular Surgery 10/01/23 [facility] 46 [place] [address] Specialist Optometry 10/01/23 documented as of this encounter
--- OUTSIDE RECORDS SUMMARY | 2024-05-13 12:13 | XMS_ITS | Encounter Summary ---
Author Organization [facility] Address [address] [place] [address] Care Team Providers Care Blast Furnace Helper Name Role Phone Teressa Solis DO Primary Care Pro vider Unavailable Mina Pretty DO Primary Care Provider Ailyn Shweta Pretty MD Primary Care Provider UnaOra Randall MD Primary Care Prov ider Jl Mendez MD Unavailable [phone] Jannette Boudreaux MD Unavailable [phone] Tenisha Mendieta PA-C Unavailable [phone] Julio Monk PA-C Unavailable Luis Armando Eller MD Unavailable [phone] Jayesh Pineda MD Unavailable Kelsi Tejada MD Unavailable Unavailable Pretty Le MD Unavailable Vesta Michael PA-C Unavailable [phone] [facility] Unavailable [phone] Reason for Referral * Non VLDA (Routine) - Closed Specialty Diagnoses / Procedures Referred By Janie castillo Referred To Contact Vascular Surgery Procedures REFERRAL TO VASCULAR SURGERY (IN NETWORK) Teressa Solis DO [address] [place] [address] Jeff Ogden MD 300 [facility] [address] [place] [address] Referral ID Status Reason Start Date Expiration Date Visits Re quested Visits Authorized [id number] Closed 11/18/2018 11/18/2019 1 1 Reason for Visit * Reason Onset Date Comments Statistical Machine Mechanic Feedback 11/18/2018 Dr. Ogden Encounter Details Date Type Department Care Team Description 11/18/2018 Telephone Adult [address] [address] Teressa Solis DO Statistical Machine Mechanic Feedback (Dr. Ogden) Social History Tobacco Use [...] today? Payor: [employer] FFS / Plan: [employer] ALLIANCE / Product Type: MEDICAID RISK Effective [...] insurance must be obtained and registered in [facility] or their referral can not be processed. Is this a retro request? NO. If yes for what date of service do you need the retro referral? N/A Who is calling to request this referral? The Patient If the caller is not the patient, what is their name? N/A Ask the patient WHO referred them to this specialty: Patient saw Allyn Vidales at [facility] for the problem and was told [...] Is this visit:Initial Visit Address of Specialist: [address] [place] [address], [address] , [place] [address] Phone # of Specialist: [phone] Fax #: (if applicable): [phone] Does patient have an appointment scheduled?: NO Date of appointment- (including a retro-request): Is this appointment related to: Not MVA, WC or Surgery related documented in this encounter Plan of Treatment Not on file documented as of this encounter Visit Diagnoses Not on filedocumented in this encounter Care Teams Blast Furnace Helper Relationship Specialty Start Date End Date Teressa Solis DO PCP - General Internal Medicine 12/18/13 09/15/20 Mina Pretty DO PCP - General Internal Medicine 09/16/20 Shweta Boucher MD PCP - General Internal Medicine 01/12/21 10/10/21 Ora Ronquillo MD [address] [place] [address] PCP - General Internal Medicine 10/11/21 Jl Mendez MD [address] [place] [address] Dr Montiel [address] [place] [address] Specialist Cardiovascular Disease 10/13/21 Jannette Boudreaux MD [address] [address] Surgeon Neurosurgery 04/07/22 Tenisha Mendieta PA-C [address] [address] Specialist Neurosurgery 04/07/22 Julio Monk PA-C [address] [address] Specialist Neurosurgery 04/07/22 Luis Armando Eller MD [address] [address] Specialist ORTHOPEDIC SURGERY 10/01/23 Jayesh Pineda MD 305 [place] [address] Specialist Endocrinology 10/01/23 Kelsi Tejada MD 305 [place] [address] Specialist Allergy & Immunology 10/01/23 Pretty Le MD 175 [facility] 200 [place] [address] Specialist Pulmonology 10/01/23 Vesta Michael PA-C 300 [facility] 210 [place] [address] Specialist Vascular Surgery 10/01/23 [facility] 46 [place], [place] [address] Specialist Optometry 10/01/23 documented as of this encounter
--- OUTSIDE RECORDS SUMMARY | 2024-05-13 12:14 | XMS_ITS | Encounter Summary ---
Author Organization [facility] Address [address] [place] [address] Care Team Providers Care Accelerator Technician Name Role Phone Geno Cueva MD Primary Care Provider Unavailable Teressa Solis DO Primary Care Pro vider Unavailable Mina Pretty DO Primary Care Provider Ailyn Shweta Pretty MD Primary Care Provider Ora Diaz MD Primary Care Prov ider Jl Mendez MD Unavailable Jannette Boudreaux MD Unavailable [phone] Tenisha Mendieta PA-C Unavailable Julio Monk PA-C Unavailable Luis Armando Eller MD Unavailable [phone] Jayesh Pineda MD Unavailable Kelsi Tejada MD Unavailable Unavailable Pretty Le MD Unavailable Vesta Michael-C Unavailable [phone] [facility] Unavailable [phone] Encounter Details Date Type Department Care Team Description 10/01/2013 Orders Only TIME PIECE REPAIRER - [address] [address] Social History Tobacco Use Types [...] on filedocumented in this encounter Care Teams Accelerator Technician Relationship Specialty Start Date End Date Geno Cueva MD PCP - General Internal Medicine 06/28/1212/17/13 Teressa Solis DO PCP - General Internal Medicine 12/18/13 09/15/20 Mina Pretty DO PCP - General Internal Medicine 09/16/20 1 Shweta Tellez MD PCP - General Internal Medicine 01/12/21 10/10/21 Ora Ronquillo MD [address] [place] [address] PCP - General Internal Medicine 10/11/21 Jl Mendez MD [address] [place] [address] Dr Montiel [address] [place] [address] Specialist Cardiovascular Disease 10/13/21 Jannette Boudreaux MD [address] [address] Surgeon Neurosurgery 04/07/22 Tenisha Mendieta PA-C [address] [address] Specialist Neurosurgery 04/07/22 Julio Monk PA-C [address] [address] Specialist Neurosurgery 04/07/22 Luis Armando Eller MD [address] [address] Specialist ORTHOPEDIC SURGERY 10/01/23 Jayesh Pineda MD [address] [place] [address] Specialist Endocrinology 10/01/23 Kelsi Tejada MD 305 [place] [address] Specialist Allergy & Immunology 10/01/23 Pretty Le MD 175 [facility] [address] [place] [address] Specialist Pulmonology 10/01/23 Vesta Michael PA-C 300 [facility] 210 [place] [address] Specialist Vascular Surgery 10/01/23 [facility] 46 [place] [address] Specialist Optometry 10/01/23 documented as of this encounter
--- OUTSIDE RECORDS SUMMARY | 2024-05-13 12:14 | XMS_ITS | Encounter Summary ---
Author Organization [facility] Address [address] [place] [address] Care Team Providers Care Casino Shift Manager Name Role Phone Shweta Tellez MD Primary Care Provider Ora Diaz MD Primary Care Prov ider Jl Mendez MD Unavailable [phone] Jannette Boudreaux MD Unavailable [phone] Tenisha Mendieta PA-C Unavailable Julio Monk PA-C Unavailable Luis Armando Eller MD Unavailable [phone] Jayesh Pineda MD Unavailable Kelsi Tejada MD Unavailable Unavailable Pretty Le MD Unavailable Vesta Michael PA-C Unavailable [phone] [facility] Unavailable Reason for Visit * Reason Comments E-prescribe Rx Request Encounter Details Date Type Department Care Team Description 04/07/2021 Refill Adult Medicine [address] [id number] Teressa Solis DO E-prescribe Rx Request Social [...] 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, SUPPORT REPRESENTATIVE, CHANDRAKANT) 06/14/2020 Sex Assigned at Date [...] N/A Patients current insurance carrier is: Payor: [employer] FFS / Plan: [employer] / Product Type: MEDICAID RISK documented in this encounter Plan of Treatment Not on file documented as of this encounter Visit Diagnoses Not on filedocumented in this encounter Care Teams Casino Shift Manager Relationship Specialty Start Date End Date Shweta Tellez MD PCP - General Internal Medicine 01/12/21 10/10/21 Ora Ronquillo MD [address] [place] [address] PCP - General Internal Medicine 10/11/21 Jl Mendez MD [address] [place] [address] Dr Montiel [address] [place] [address] Specialist Cardiovascular Disease 10/13/21 Jannette Boudreaux MD [address] [address] Surgeon Neurosurgery 04/07/22 Tenisha Mendieta PA-C [address] [address] Specialist Neurosurgery 04/07/22 Julio Monk PA-C 175 [facility] [address] [place] [address] Specialist Neurosurgery 04/07/22 Luis Armando Eller MD [address] [address] Specialist ORTHOPEDIC SURGERY 10/01/23 Jayesh Pineda MD [address] [place] [address] Specialist Endocrinology 10/01/23 Kelsi Tejada MD 305 [place] [address] Specialist Allergy & Immunology 10/01/23 Pretty Le MD 175 [facility] [address] [place] [address] Specialist Pulmonology 10/01/23 Vesta Michael PA-C 300 [facility] 210 [place] [address] Specialist Vascular Surgery 10/01/23 [facility] 46 [place], [place] [address] Specialist Optometry 10/01/23 documented as of this encounter
--- OUTSIDE RECORDS SUMMARY | 2024-05-13 12:14 | XMS_ITS | Encounter Summary ---
Author Organization [facility] Address [address] [place] [address] Care Team Providers Care Supervisor Brine Name Role Phone Teressa Solis DO Primary Care Pro vider Unavailable Mina Pretty DO Primary Care Provider Shweta Cronin MD Primary Care Provider Ora Diaz MD Primary Care Prov ider Jl Mendez MD Unavailable [phone] Jannette Boudreaux MD Unavailable [phone] Tenisha Mendieta PA-C Unavailable Julio Monk PA-C Unavailable Luis Armando Eller MD Unavailable [phone] Jayesh Pineda MD Unavailable Kelsi Tejada MD Unavailable Unavailable Pretty Le MD Unavailable Vesta Michael PA-C Unavailable [facility] Unavailable [phone] Encounter Details Date Type Department Care Team Description 03/13/2019 Telephone Allergy YAKIMA 98 [address] [place] [address] Kelsi Tejada MD Social History [...] filedocumented in this encounter Care Teams Supervisor Brine Relationship Specialty Start Date End Date Teressa Solis DO PCP - General Internal Medicine 12/18/13 09/15/20 Mina Pretty DO PCP - General Internal Medicine 09/16/20 Shweta Boucher MD PCP - General Internal Medicine 01/12/21 10/10/21 Ora Ronquillo MD [address] [place] [address] PCP - General Internal Medicine 10/11/21 Jl Mendez MD [address] [place] [address] Dr Montiel [address] [place] [address] Specialist Cardiovascular Disease 10/13/21 Jannette Boudreaux MD [address] [address] Surgeon Neurosurgery 04/07/22 Tenisha Mendieta PA-C [address] [address] Specialist Neurosurgery 04/07/22 Julio Monk PA-C [address] [address] Specialist Neurosurgery 04/07/22 Luis Armando Eller MD [address] [address] Specialist ORTHOPEDIC SURGERY 10/01/23 Jayesh Pineda MD 305 [place] [address] Specialist Endocrinology 10/01/23 Kelsi Tejada MD 305 [place] [address] Specialist Allergy & Immunology 10/01/23 Pretty Le MD 175 [facility] [address] [place] [address] Specialist Pulmonology 10/01/23 Vesta Michael PA-C 300 [facility] [address] [place] [address] Specialist Vascular Surgery 10/01/23 [facility] [address] [place] [address] Specialist Optometry 10/01/23 documented as of this encounter
--- OUTSIDE RECORDS SUMMARY | 2024-05-13 12:14 | XMS_ITS | Encounter Summary ---
Author Organization [facility] Address [address] [place] [address] Care Team Providers Care Chief Environmental Commitment Officer Name Role Phone Teressa Solis DO Primary Care Pro vider Unavailable Mina Pretty DO Primary Care Provider Shweta Cronin MD Primary Care Provider Ora Diaz MD Primary Care Prov ider Jl Mendez MD Unavailable [phone] Jannette Boudreaux MD Unavailable [phone] Tenisha Mendieta PA-C Unavailable Julio Monk PA-C Unavailable [phone] Luis Armando Eller MD Unavailable [phone] Jayesh Pineda MD Unavailable Kelsi Tejada MD Unavailable Unavailable Pretty Le MD Unavailable Vesta Michael PA-C Unavailable [facility] Unavailable Encounter Details Date Type Department Care Team Description 07/19/2017 Business Doc Medical Records [address] [place] [address] Abstract, Provider Social History Tobacco Use Types [...] filedocumented in this encounter Care Teams Chief Environmental Commitment Officer Relationship Specialty Start Date End Date Teressa Solis DO PCP - General Internal Medicine 12/18/13 09/15/20 Mina Pretty DO PCP - General Internal Medicine 09/16/20 Shweta Boucher MD PCP - General Internal Medicine 01/12/21 10/10/21 Ora Ronquillo MD [address] [place] [address] PCP - General Internal Medicine 10/11/21 Jl Mendez MD [address] [place] [address] Specialist Cardiovascular Disease 10/13/21 Jannette Boudreaux MD [address] [address] Surgeon Neurosurgery 04/07/22 Tenisha Mendieta PA-C [address] [address] Specialist Neurosurgery 04/07/22 Julio Monk PA-C [address] [address] Specialist Neurosurgery 04/07/22 Luis Armando Eller MD [address] [address] Specialist ORTHOPEDIC SURGERY 10/01/23 Jayesh Pineda MD 305 [place] [address] Specialist Endocrinology 10/01/23 Kelsi Tejada MD 305 [place] [address] Specialist Allergy & Immunology 10/01/23 Pretty Le MD 175 [facility] [address] [place] [address] Specialist Pulmonology 10/01/23 Vesta Michael PA-C 300 [facility] [address] [place] [address] Specialist Vascular Surgery 10/01/23 [facility] 46 [place] [address] Specialist Optometry 10/01/23 documented as of this encounter
--- OUTSIDE RECORDS SUMMARY | 2024-05-13 12:14 | XMS_ITS | Continuity of Care Document ---
Author Organization [facility] ter Address [address] [place] [address]- Care Team Providers Care Behavioral Sciences Department Chair Name Role Phone DavidcesarTeressa Lombardi DO Primary Care Nicky pool [place] [facility] [place]): 02/28[place]24 - 05/07/24 [facility] [address] [place] [address]- Attending Physician: Harish Sanchez MD Admitting Physician: Harish Sanchez MD Referring Physician: Harish Sanchez MD Encounter Type: Pre-Outpt Allergies, Adverse Reactions, Alerts Substance Criticality Severity Reaction Reaction Severity Status penicillin throat swelling/facial swelling Active Animal Dander sneezing Active Chocolate snezzing/runny nose Active Other Food Allergy Almonds-a naphalaxis msg Active Other Environmental Allergy MSG edema Active Duricef difficulty breathing/facial swelling Active Latex hives,itching Active Medrol Dosepak edema Activ e Medications amLODIPine 10 mg oral tablet 90 [...] Refills, Maintenance, 11/02/23 2:36:00 PM EDT, Solution, [facility], Partial fill upon patient [...] Care team information Care Team Personnel Name: Rachel Grace DOTeressa Position: [facility] Physician - Primary Care Member Role: PCP Address: [address] [place] [address] Telecom: Care Team Related Persons Name: JULIEN GARCÍA Name: ALFREDO WARREN Insurance Providers Guarantor name: JULIEN BARRY Health Plan Information #: 3 Payer: [facility] Member Number: [id number] Policy Number: NA Group Number: NA Health Plan Information #: 2 Payer: [employer] Member Number: [id number] Policy Number: NA Group Number: NA Health Plan Information #: 1 Payer: MEDICARE PART B OUTPT Member Number: [id number] Policy Number: NA Group Number: NA Health Plan Information #: 4 Payer: [facility] Member Number: NA Policy Number: NA Group Number: NA
--- OUTSIDE RECORDS SUMMARY | 2024-05-13 12:14 | XMS_ITS | Encounter Summary ---
Author Organization [facility] Address [address] [place] [address] Care Team Providers Care Chemical Recovery Operator Name Role Phone Teressa Solis DO Primary Care Pro vider Unavailable Mina Pretty DO Primary Care Provider Shweta Cronin MD Primary Care Provider Ora Diaz MD Primary Care Prov ider Jl Mendez MD Unavailable [phone] Jannette Boudreaux MD Unavailable [phone] Tenisha Mendieta PA-C Unavailable [phone] Julio MonkC Unavailable [phone] Luis Armando Eller MD Unavailable [phone] Jayesh Pineda MD Unavailable Kelsi Tejada MD Unavailable Unavailable Pretty Le MD Unavailable Vesta Michael-Pina Unavailable [phone] [facility] Unavailable Reason for Visit * Reason Onset Date Comments Prior Authorization 02/12/2019 PA Denied Cathy rufina Encounter Details Date Type Department Care Team Description 02/12/2019 Telephone Allergy BAYARD 98 [address] [place] [phone] Kelsi Tejada MD Prior Authorization (SCARLET Denied Nucala) Social History Tobacco Use Types Packs/Day Years [...] Telephone Encounter - Kelsi Tejada MD - 02/12/2019 3:49 PM EST Please indicate poorly controlled moderate persistent asthma with frequent courses of steroids * Telephone Encounter - Nola Campbell R.N. - 02/12/2019 2:39 PM EST Nucala denied x 2 stating pt has moderate persistent asthma . Reason require severe persistent asthma. PA dept recommended submitting new PA before doing peer to peer . Will do so. documented in this encounter Plan of Treatment Not on file documented as of this encounter Visit Diagnoses Not on filedocumented in this encounter Care Teams Chemical Recovery Operator Relationship Specialty Start Date End Date Teressa Solis, PCP - General Internal Medicine 12/18/13 09/15/20 Mina Pretty DO PCP - General Internal Medicine 09/16/20 1 Shweta Tellez MD PCP - General Internal Medicine 01/12/21 10/10/21 Ora Ronquillo MD [address] [place] [address] PCP - General Internal Medicine 10/11/21 Jl Mendez MD [address] [place] [address] [place] [address] Specialist Cardiovascular Disease 10/13/21 Jannette Boudreaux MD [address] [facility] [address] [place] [address] Surgeon Neurosurgery 04/07/22 Tenisha Mendieta PA-C 175 [facility] 300 [place] [address] Specialist Neurosurgery 04/07/22 Julio Monk PA-C 175 [facility] 300 [place] [address] Specialist Neurosurgery 04/07/22 Luis Armando Eller MD 175 [facility] 250 [place] [address] Specialist ORTHOPEDIC SURGERY 10/01/23 Jayesh Pineda MD 305 [place] [address] Specialist Endocrinology 10/01/23 eKlsi Tejada MD 305 [place] [address] Specialist Allergy & Immunology 10/01/23 Pretty Le MD 175 [facility] 200 [place] [address] Specialist Pulmonology 10/01/23 Vesta Michael PA-C 300 [facility] 210 [place] [address] Specialist Vascular Surgery 10/01/23 [facility] 46 [place] [address] Specialist Optometry 10/01/23 documented as of this encounter
--- OUTSIDE RECORDS SUMMARY | 2024-05-13 12:14 | XMS_ITS | Encounter Summary ---
Author Organization [facility] Address [address] [place] [address] Care Team Providers Care Spinner Tender Name Role Phone Teressa Solis DO Primary Care Pro vider Unavailable Mina Pretty DO Primary Care Provider Shweta Cronin MD Primary Care Provider Ora Diaz MD Primary Care Prov ider Jl Mendez MD Unavailable Jannette Boudreaux MD Unavailable [phone] Tenisha Mendieta PA-C Unavailable [phone] Julio Monk PA-C Unavailable Luis Armando Eller MD Unavailable [phone] Jayesh Pineda MD Unavailable Kelsi Tejada MD Unavailable Unavailable Pretty Le MD Unavailable Vesta Michael PA-C Unavailable [facility] Unavailable [phone] Reason for Visit * Reason Onset Date Comments allergy injection 01/20/2019 Encounter Details Date Type Department Care Team Description 01/20/2019 Telephone Allergy IRONTON 98 98 [place] [address] Kelsi Tejada MD allergy injection [...] if fax was recevied with documention, # [phone] documented in this encounter Plan of Treatment Not on file documented as of this encounter Visit Diagnoses Not on filedocumented in this encounter Care Teams Spinner Tender Relationship Specialty Start Date End Date Teressa Solis, PCP - General Internal Medicine 12/18/13 09/15/20 Mina Pretty DO PCP - General Internal Medicine 09/16/20 Shweta Boucher MD PCP - General Internal Medicine 01/12/21 10/10/21 Ora Ronquillo MD [address] [place] [address] PCP - General Internal Medicine 10/11/21 Jl Mendez MD [address] [place] [address] [place] [address] Specialist Cardiovascular Disease 10/13/21 Jannette Boudreaux MD [address] [address] Surgeon Neurosurgery 04/07/22 Tensiha Mendieta PA-C [address] [address] Specialist Neurosurgery 04/07/22 Julio Monk PA-C 175 [facility] 300 [place] [address] Specialist Neurosurgery 04/07/22 Luis Armando Eller MD 175 [facility] 250 [place] [address] Specialist ORTHOPEDIC SURGERY 10/01/23 Jayesh Pineda MD 305 [place] [address] Specialist Endocrinology 10/01/23 Kelsi Tejada MD 305 [place] [address] Specialist Allergy & Immunology 10/01/23 Pretty Le MD 175 [facility] 200 [place] [address] Specialist Pulmonology 10/01/23 Vesta Michael PA-C 300 [facility] 210 [place] [address] Specialist Vascular Surgery 10/01/23 [facility] 46 [place] [address] Specialist Optometry 10/01/23 documented as of this encounter
--- OUTSIDE RECORDS SUMMARY | 2024-05-13 12:14 | XMS_ITS | Encounter Summary ---
Author Organization [facility] Address [address] [place] [address] Care Team Providers Care Painter Hand Name Role Phone Geno Cueva MD Primary Care Provider Unavailable Teressa Solis DO Primary Care Pro vider Unavailable Mina Pretty DO Primary Care Provider Ailyn Shweta Pretty MD Primary Care Provider Ora Diaz MD Primary Care Prov ider Jl Mendez MD Unavailable [phone] Jannette Boudreaux MD Unavailable [phone] Tenisha Mendieta PA-C Unavailable Julio Monk PA-C Unavailable Luis Armando Eller MD Unavailable [phone] Jayesh Pineda MD Unavailable Kelsi Tejada MD Unavailable Unavailable Pretty Le MD Unavailable Vesta Michael-Pina Unavailable [phone] [facility] Unavailable [phone] Encounter Details Date Type Department Care Team Description 12/01/2013 Clean Room Assembler Report Medical Records [address] [place] [address] Genny Brewer Social History Tobacco Use Types [...] on filedocumented in this encounter Care Teams Painter Hand Relationship Specialty Start Date End Date Geno Cueva MD PCP - General Internal Medicine 06/28/1212/17/13 Teressa Solis DO PCP - General Internal Medicine 12/18/13 09/15/20 Mina Pretty DO PCP - General Internal Medicine 09/16/20 Shweta Boucher MD PCP - General Internal Medicine 01/12/21 10/10/21 Ora Ronquillo MD [address] [place] [address] PCP - General Internal Medicine 10/11/21 Jl Mendez MD [address] [place] [address] Dr Montiel [address] [place] [address] Specialist Cardiovascular Disease 10/13/21 Jannette Boudreaux MD [address] [address] Surgeon Neurosurgery 04/07/22 Tenisha Mendieta PA-C [address] [address] Specialist Neurosurgery 04/07/22 Julio Monk PA-C 175 [facility] [address] [place] [address] Specialist Neurosurgery 04/07/22 Luis Armando Eller MD [address] [address] Specialist ORTHOPEDIC SURGERY 10/01/23 Jayesh Pineda MD [address] [place] [address] Specialist Endocrinology 10/01/23 Kelsi Tejada MD 305 [place] [address] Specialist Allergy & Immunology 10/01/23 Pretty Le MD 175 [facility] [address] [place] [address] Specialist Pulmonology 10/01/23 Vesta Michael PA-C 300 [facility] 210 [place] [address] Specialist Vascular Surgery 10/01/23 [facility] 46 [place], [place] [address] Specialist Optometry 10/01/23 documented as of this encounter
--- OUTSIDE RECORDS SUMMARY | 2024-05-13 12:14 | XMS_ITS | Encounter Summary ---
Author Organization [facility] Address [address] [place] [address] Care Team Providers Care Investment Fund Manager Name Role Phone Teressa Solis DO Primary Care Pro vider Unavailable Mina Pretty DO Primary Care Provider Shweta Cronin MD Primary Care Provider Ora Diaz MD Primary Care Prov ider Jl Mendez MD Unavailable [phone] Jannette Boudreaux MD Unavailable [phone] Tenisha Mendieta PA-C Unavailable [phone] Julio Monk PA-C Unavailable [phone] Luis Armando Eller MD Unavailable [phone] Jayesh Pineda MD Unavailable Kelsi Tejada MD Unavailable Unavailable Pretty Le MD Unavailable Vesta Michael PA-C Unavailable [phone] [facility] Unavailable [phone] Reason for Visit * Reason Onset Date Comments allergy injection 03/10/2019 Encounter Details Date Type Department Care Team Description 03/10/2019 Telephone Adult [facility] 98 [address] [place] [address] Kelsi Tejada MD allergy injection Social History [...] encounter Miscellaneous Notes * Telephone Encounter - Rosio Hutchins LPN - 03/14/2019 1:34 PM EST Peer to peer set up for 03/18/19 at 3pm. The medical grade shoemaker will call then. BSR- please transfer the call to clinical staff. * Telephone Encounter - Nola Campbell R.N. - 03/13/2019 5:41 PM EST Call placed to [facility] [employer] to arrange peer to peer. On hold for 59 minutes with no response. Message left to please return call on Sunday03/14/19 to our office to arrange a peer to peer for this patient. Requested that they ask for Rosio Hutchins LPN from this office. Number to contact them if no response from them is then opt [address] Tejada would like to arrange Sunday between 3 and 5 pm. * Telephone Encounter - Kelsi Tejada MD - 03/13/2019 3:50 PM EST Sunday between 3 to 5 * Telephone Encounter - Nola Campbell R.N. - 03/13/2019 3:45 PM EST Appeal done for Jonathanala with [facility] [employer]. Appeal denied due to fact that patient does not have severe persistent asthma despite fact that her asthma is poorly controlled and she is on frequent steroid courses. I can schedule a peer to peer. I need to know what would be a convenient 2 hour block oftime for you and then I can call. * Telephone Encounter - Nola Campbell R.N. - 03/13/2019 10:57 AM EST Return call to Leon of [employer]. Discussed patient's status for Nucala, dx past treatments, labs. Leon will put forth to pharmacy staff. If appeal still not acceptable asked if Dr. Tejada willing to have peer to peer. Leon to call back if appeal continues to deny medication and will arrange peer to peer. * Telephone Encounter - Earnestine Martinez - 03/10/2019 11:35 AM EST [facility] [employer] calling, would like call back to discuss appeal for patients Nucala. documented in this encounter Plan of Treatment Not on file documented as of this encounter Visit Diagnoses Not on filedocumented in this encounter Care Teams Investment Fund Manager Relationship Specialty Start Date End Date Teressa Solis DO PCP - General Internal Medicine 12/18/13 09/15/20 Mina Pretty DO PCP - General Internal Medicine 09/16/20 Shweta Boucher MD PCP - General Internal Medicine 01/12/21 10/10/21 Ora Ronquillo MD [address] [place] [address] PCP - General Internal Medicine 10/11/21 Jl Mendez MD [address] [place] [address] Dr Mont[address] [place] [address] Specialist Cardiovascular Disease 10/13/21 Jannette Boudreaux MD 175 [facility] [address] [place] [address] Surgeon Neurosurgery 04/07/22 Tenisha Mendieta PA-C 175 [facility] [address] [place] [address] Specialist Neurosurgery 04/07/22 Julio Monk PA-C 175 [facility] 300 [place], [place] [address] Specialist Neurosurgery 04/07/22 Luis Armando Eller MD 175 [facility] 250 [place] [address] Specialist ORTHOPEDIC SURGERY 10/01/23 Jayesh Pineda MD 305 [place] [address] Specialist Endocrinology 10/01/23 Kelsi Tejada MD 305 [place] [address] Specialist Allergy & Immunology 10/01/23 Pretty Le MD 175 [facility] 200 [place] [address] Specialist Pulmonology 10/01/23 Vesta Michael PA-C 300 [facility] 210 [place] [address] Specialist Vascular Surgery 10/01/23 [facility] [address] [place] [address] Specialist Optometry 10/01/23 documented as of this encounter
--- OUTSIDE RECORDS SUMMARY | 2024-05-13 12:14 | XMS_ITS | Encounter Summary ---
Author Organization [facility] Address [address] [place] [address] Care Team Providers Care Clamper Name Role Phone Geno Cueva MD Primary Care Provider Unavailable Teressa Solis DO Primary Care Pro vider Unavailable Mina Pretty DO Primary Care Provider Ailyn Shweta Pretty MD Primary Care Provider Ora Diaz MD Primary Care Prov ider Jl Mendez MD Unavailable Jannette Boudreaux MD Unavailable [phone] Tenisha Mendieta PA-C Unavailable Julio Monk PA-C Unavailable [phone] Luis Armando Eller MD Unavailable [phone] Jayesh Pineda MD Unavailable Kelsi Tejada MD Unavailable Unavailable Pretty Le MD Unavailable Vesta Michael-Pina Unavailable [facility] Unavailable [phone] Reason for Visit * Reason Onset Date Comments Provider Call Back 11/03/2013 Encounter Details Date Type Department Care Team Description 11/03/2013 Telephone Adult Medicine [address] [id number] Lisandra Gracia PA-C Provider Call Back Social [...] Primary documented in this encounter Care Teams Clamper Relationship Specialty Start Date End Date Geno Cueva MD PCP - General Internal Medicine 06/28/1212/17/13 Teressa Solis DO PCP - General Internal Medicine 12/18/13 09/15/20 Mina Pretty DO PCP - General Internal Medicine 09/16/20 1 Shweta Tellez MD PCP - General Internal Medicine 01/12/21 10/10/21 Ora Ronquillo MD [address] [place] [address] PCP - General Internal Medicine 10/11/21 Jl Mendez MD [address] [place] [address] Dr Montiel [address] [place] [address] Specialist Cardiovascular Disease 10/13/21 Jannette Boudreaux MD 175 [facility] 300 [place] [address] Surgeon Neurosurgery 04/07/22 Tenisha Mendieta PA-C [address] [address] Specialist Neurosurgery 04/07/22 Julio Monk PA-C [address] [address] Specialist Neurosurgery 04/07/22 Luis Armando Eller MD [address] [address] Specialist ORTHOPEDIC SURGERY 10/01/23 Jayesh Pineda MD 305 [place] [address] Specialist Endocrinology 10/01/23 Kelsi Tejada MD 305 [place] [address] Specialist Allergy & Immunology 10/01/23 Pretty Le MD 175 [facility] 200 [place] [address] Specialist Pulmonology 10/01/23 Vesta Michael PA-C 300 [facility] 210 [place] [address] Specialist Vascular Surgery 10/01/23 [facility] 46 [place], [place] [address] Specialist Optometry 10/01/23 documented as of this encounter
--- OUTSIDE RECORDS SUMMARY | 2024-05-13 12:14 | XMS_ITS | Encounter Summary ---
Author Organization [facility] Address [address] [place] [address] Care Team Providers Care Chief Inspector Name Role Phone Teressa Solis DO Primary Care Pro vider Unavailable Mina Pretty DO Primary Care Provider Shweta Cronin MD Primary Care Provider Ora Diaz MD Primary Care Prov ider Jl Mendez MD Unavailable [phone] Jannette Boudreaux MD Unavailable [phone] Tenisha Mendieta PA-C Unavailable Julio MonkC Unavailable [phone] Luis Armando [place]er MD Unavailable [phone] Jayesh Pineda MD Unavailable Kelsi Tejada MD Unavailable Unavailable Pretty Le MD Unavailable Vesta Michael PA-C Unavailable [phone] [facility] Unavailable [phone] Reason for Visit * Reason Comments E-prescribe Rx Request Encounter Details Date Type Department Care Team Description 04/07/2019 Refill Allergy [place] [address] [place] [id number] Kelsi Tejada MD E-prescribe Rx Request Social [...] sinusitis documented in this encounter Care Teams Chief Inspector Relationship Specialty Start Date End Date Teressa Solis DO PCP - General Internal Medicine 12/18/13 09/15/20 Mina Pretty DO PCP - General Internal Medicine 09/16/20 Shweta Boucher MD PCP - General Internal Medicine 01/12/21 10/10/21 Ora Ronquillo MD [address] [place] [address] PCP - General Internal Medicine 10/11/21 Jl Mendez MD [address] [place] [address] Dr Mont[address] [place] [address] Specialist Cardiovascular Disease 10/13/21 Jannette Boudreaux MD [address] [address] Surgeon Neurosurgery 04/07/22 Tenisha Mendieta PA-C [address] [address] Specialist Neurosurgery 04/07/22 Julio Monk PA-C [address] [address] Specialist Neurosurgery 04/07/22 Luis Armando [place]er MD [address] [address] Specialist ORTHOPEDIC SURGERY 10/01/23 Jayesh Pineda MD 305 [place] [address] Specialist Endocrinology 10/01/23 Kelsi Tejada MD 305 [place] [address] Specialist Allergy & Immunology 10/01/23 Pretty Le MD 175 [facility] [address] [place] [address] Specialist Pulmonology 10/01/23 Vesta Michael PA-C 300 [facility] 210 [place] [address] Specialist Vascular Surgery 10/01/23 [facility] [address] [place], [place] [address] Specialist Optometry 10/01/23 documented as of this encounter
--- OUTSIDE RECORDS SUMMARY | 2024-05-13 12:14 | XMS_ITS | Encounter Summary ---
Author Organization [facility] Address [address] [place] [address] Care Team Providers Care Safety Glass Installer Name Role Phone Teressa Solis DO Primary Care Pro vider Unavailable Mina Pretty DO Primary Care Provider Shweta Cronin MD Primary Care Provider Ora Diaz MD Primary Care Prov ider Jl Mendez MD Unavailable Jannette Boudreaux MD Unavailable [phone] Tenisha Mendieta PA-C Unavailable Julio Monk PA-C Unavailable Luis Armando Eller MD Unavailable [phone] Jayesh Pineda MD Unavailable Kelsi Tejada MD Unavailable Unavailable Pretty Le MD Unavailable Vesta Michael PA-C Unavailable [facility] Unavailable [phone] Encounter Details Date Type Department Care Team Description 02/10/2019 Old Medical Records Medical Records [address] [place] [address] Abstract, Provider Social History Tobacco Use Types [...] on filedocumented in this encounter Care Teams Safety Glass Installer Relationship Specialty Start Date End Date Teressa Solis DO PCP - General Internal Medicine 12/18/13 09/15/20 Mina Pretty DO PCP - General Internal Medicine 09/16/20 Shweta Boucher MD PCP - General Internal Medicine 01/12/21 10/10/21 Ora Ronquillo MD [address] [place] [address] PCP - General Internal Medicine 10/11/21 Jl Mendez MD [address] [place] [address] [place] [address] Specialist Cardiovascular Disease 10/13/21 Jannette Boudreaux MD [address] [address] Surgeon Neurosurgery 04/07/22 Tenisha Mendieta PA-C [address] [address] Specialist Neurosurgery 04/07/22 Julio Monk PA-C [address] [address] Specialist Neurosurgery 04/07/22 Luis Armando [place]er MD [address] [address] Specialist ORTHOPEDIC SURGERY 10/01/23 Jayesh Pineda MD 305 [place] [address] Specialist Endocrinology 10/01/23 Kelsi Tejada MD 305 [place] [address] Specialist Allergy & Immunology 10/01/23 Pretty Le MD 175 [facility] [address] [place] [address] Specialist Pulmonology 10/01/23 Vesta Michael PA-C 300 [facility] [address] [place] [address] Specialist Vascular Surgery 10/01/23 [facility] 46 [place] [address] Specialist Optometry 10/01/23 documented as of this encounter
--- OUTSIDE RECORDS SUMMARY | 2024-05-13 12:14 | XMS_ITS | Encounter Summary ---
Author Organization [facility] Address [address] [place] [address] Care Team Providers Care Middle School Technology Teacher Name Role Phone Teressa Solis DO Primary Care Pro vider Unavailable Mina Pretty DO Primary Care Provider Shweta Cronin MD Primary Care Provider Ora Diaz MD Primary Care Prov ider Jl Mendez MD Unavailable Jannette Boudreaux MD Unavailable [phone] Tenisha Mendieta PA-C Unavailable Julio Monk PA-C Unavailable [phone] Luis Armando [place]er MD Unavailable [phone] Jayesh Pineda MD Unavailable Kelsi Tejada MD Unavailable Unavailable Pretty Le MD Unavailable Vesta Michael PA-C Unavailable [phone] [facility] Unavailable [phone] Reason for Visit * Reason Comments E-prescribe Rx Request Encounter Details Date Type Department Care Team Description 03/27/2019 Refill Adult Medicine [address] [address] Teressa Solis DO E-prescribe Rx [...] an upcoming appointment? No-unable to reach left [facility] to call for appointment due to refill [...] N/A Patients current insurance carrier is: Payor: [facility] F[employer] / Plan: [employer] / Product Type: MEDICAID RISK documented in this encounter Plan of Treatment Not on file documented as of this encounter Visit Diagnoses Not on filedocumented in this encounter Care Teams Middle School Technology Teacher Relationship Specialty Start Date End Date Teressa Solis DO PCP - General Internal Medicine 12/18/13 09/15/20 Mina Pretty DO PCP - General Internal Medicine 09/16/20 Shweta Boucher MD PCP - General Internal Medicine 01/12/21 10/10/21 Ora Ronquillo MD [address] [place] [address] PCP - General Internal Medicine 10/11/21 Jl Mendez MD [address] [place] [address] Dr Mont[address] [place] [address] Specialist Cardiovascular Disease 10/13/21 Jannette Boudreaux MD [address] [address] Surgeon Neurosurgery 04/07/22 Tenisha Mendieta PA-C [address] [address] Specialist Neurosurgery 04/07/22 Julio Monk PA-C 175 [facility] [address] [place] [address] Specialist Neurosurgery 04/07/22 Luis Armando [place]er MD [address] [address] Specialist ORTHOPEDIC SURGERY 10/01/23 Jayesh Pineda MD 305 [place] [address] Specialist Endocrinology 10/01/23 Kelsi Tejada MD 305 [place] [address] Specialist Allergy & Immunology 10/01/23 Pretty Le MD 175 [facility] [address] [place] [address] Specialist Pulmonology 10/01/23 Vesta Michael PA-C 300 [facility] 210 [place] [address] Specialist Vascular Surgery 10/01/23 [facility] 46 [place] [address] Specialist Optometry 10/01/23 documented as of this encounter
--- OUTSIDE RECORDS SUMMARY | 2024-05-13 12:14 | XMS_ITS | Encounter Summary ---
Author Organization [facility] Address [address] [place] [address] Care Team Providers Care Regional Director Name Role Phone Teressa Solis DO Primary Care Pro vider Unavailable Mina Pretty DO Primary Care Provider Shweta Cronin MD Primary Care Provider Ora Diaz MD Primary Care Prov ider Jl Mendez MD Unavailable [phone] Jannette Boudreaux MD Unavailable [phone] Tenisha Mendieta PA-C Unavailable Julio Monk PA-C Unavailable Luis Armando [place]er MD Unavailable [phone] Jayesh Pineda MD Unavailable Kelsi Tejada MD Unavailable Unavailable Pretty Le MD Unavailable Vesta Michael PA-C Unavailable [facility] Unavailable [phone] Reason for Visit * Reason Onset Date Comments Medication 02/20/2014 RE-FAX Encounter Details Date Type Department Care Team Description 02/20/2014 Telephone Adult Medicine [address] [address] Teressa Solis DO Medication (RE-FAX) [...] on filedocumented in this encounter Care Teams Regional Director Relationship Specialty Start Date End Date Teressa Solis DO PCP - General Internal Medicine 12/18/13 09/15/20 Mina Pretty DO PCP - General Internal Medicine 09/16/20 1 Shweta Tellez MD PCP - General Internal Medicine 01/12/21 10/10/21 Hiwot Couch, Ora Kelly MD [address] [place] [address] PCP - General Internal Medicine 10/11/21 Jl Mendez MD [address] [place] [address] Dr Mont[address] [place] [address] Specialist Cardiovascular Disease 10/13/21 Jannette Boudreaux MD [address] [address] Surgeon Neurosurgery 04/07/22 Tenisha Mendieta PA-C [address] [address] Specialist Neurosurgery 04/07/22 Julio Monk PA-C [address] [address] Specialist Neurosurgery 04/07/22 Luis Armando [place]er MD [address] [address] Specialist ORTHOPEDIC SURGERY 10/01/23 Jayesh Pineda MD [address] [place] [address] Specialist Endocrinology 10/01/23 Kelsi Tejada MD 305 [place] [address] Specialist Allergy & Immunology 10/01/23 Pretty Le MD 175 [facility] [address] [place] [address] Specialist Pulmonology 10/01/23 Vesta Michael PA-C 300 [facility] [address] [place] [address] Specialist Vascular Surgery 10/01/23 [facility] 46 [place] [address] Specialist Optometry 10/01/23 documented as of this encounter
--- OUTSIDE RECORDS SUMMARY | 2024-05-13 12:15 | XMS_ITS | Encounter Summary ---
Author Organization [facility] Address [address] [place] [address] Care Team Providers Care Field Recruiter Name Role Phone Teressa Solis DO Primary Care Pro vider Unavailable Mina Pretty DO Primary Care Provider Shweta Cronin MD Primary Care Provider Ora Diaz MD Primary Care Prov ider Jl Mendez MD Unavailable [phone] Jannette Boudreaux MD Unavailable [phone] Tenisha Mendieta PA-C Unavailable Julio Monk PA-C Unavailable Luis Armando [place]er MD Unavailable [phone] Jayesh Pineda MD Unavailable Kelsi Tejada MD Unavailable Unavailable Pretty Le MD Unavailable Vesta Michael PA-C Unavailable [facility] Unavailable Encounter Details Date Type Department Care Team Description 07/27/2014 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/[employer] Report Medical Records 4 [place] [address] Abstract, Provider Social History Tobacco Use Types [...] filedocumented in this encounter Care Teams Field Recruiter Relationship Specialty Start Date End Date Teressa Solis DO PCP - General Internal Medicine 12/18/13 09/15/20 Mina Pretty DO PCP - General Internal Medicine 09/16/20 Shweta Boucher MD PCP - General Internal Medicine 01/12/21 10/10/21 Ora Ronquillo MD [address] [place] [address] PCP - General Internal Medicine 10/11/21 Jl Mendez MD [address] [place] [address] Specialist Cardiovascular Disease 10/13/21 Jannette Boudreaux MD [address] [address] Surgeon Neurosurgery 04/07/22 Tenisha Mendieta PA-C [address] [address] Specialist Neurosurgery 04/07/22 Julio Monk PA-C [address] [address] Specialist Neurosurgery 04/07/22 Luis Armando [place]er MD [address] [address] Specialist ORTHOPEDIC SURGERY 10/01/23 Jayesh Pineda MD 305 [place] [address] Specialist Endocrinology 10/01/23 Kelsi Tejada MD 305 [place] [address] Specialist Allergy & Immunology 10/01/23 Pretty Le MD 175 [employer] [address] [place] [address] Specialist Pulmonology 10/01/23 Vesta Michael PA-C 300 [facility] 210 [place] [address] Specialist Vascular Surgery 10/01/23 [facility] 46 [place] [address] Specialist Optometry 10/01/23 documented as of this encounter
--- OUTSIDE RECORDS SUMMARY | 2024-05-13 12:15 | XMS_ITS | Encounter Summary ---
Author Organization [facility] Address [address] [place] [address] Care Team Providers Care Credit Assessment Analyst Name Role Phone Teressa Solis DO Primary Care Pro vider Unavailable Mina Pretty DO Primary Care Provider Ailyn Shweta Pretty MD Primary Care Provider Ora Diaz MD Primary Care Prov ider Jl Mendez MD Unavailable [phone] Jannette Boudreaux MD Unavailable [phone] Tenisha Mendieta PA-C Unavailable Julio Monk PA-C Unavailable Luis Armando [place]er MD Unavailable [phone] Jayesh Pineda MD Unavailable Kelsi Tejada MD Unavailable Unavailable Pretty Le MD Unavailable Vesta Michael PA-C Unavailable [facility] Unavailable [phone] Encounter Details Date Type Department Care Team Description 01/20/2014 Release of Information Medical Records 4 [place] [address] Abstract, Provider Social History Tobacco Use Types [...] on filedocumented in this encounter Care Teams Credit Assessment Analyst Relationship Specialty Start Date End Date Teressa Solis DO PCP - General Internal Medicine 12/18/13 09/15/20 Mina Pretty DO PCP - General Internal Medicine 09/16/20 Shweta Boucher MD PCP - General Internal Medicine 01/12/21 10/10/21 Ora Ronquillo MD [address] [place] [address] PCP - General Internal Medicine 10/11/21 Jl Mendez MD [address] [place] [address] [place] [address] Specialist Cardiovascular Disease 10/13/21 Jannette Boudreaux MD [address] [address] Surgeon Neurosurgery 04/07/22 Tenisha Mendieta PA-C [address] [address] Specialist Neurosurgery 04/07/22 Julio Monk PA-C [address] [address] Specialist Neurosurgery 04/07/22 Luis Armando [place]er MD [address] [address] Specialist ORTHOPEDIC SURGERY 10/01/23 Jayesh Pineda MD 305 [place] [address] Specialist Endocrinology 10/01/23 Kelsi Tejada MD 305 [place] [address] Specialist Allergy & Immunology 10/01/23 Pretty Le MD 175 [facility] [address] [place] [address] Specialist Pulmonology 10/01/23 Vesta Michael PA-C 300 [facility] [address] [place] [address] Specialist Vascular Surgery 10/01/23 [facility] 46 [place] [address] Specialist Optometry 10/01/23 documented as of this encounter
--- OUTSIDE RECORDS SUMMARY | 2024-05-13 12:15 | XMS_ITS | Encounter Summary ---
Author Organization [facility] Address [address] [place] [address] Care Team Providers Care Wildland Fire Fighter Specialist Name Role Phone Teressa Solis DO Primary Care Pro vider Unavailable Mina Pretty DO Primary Care Provider Shweta Cronin MD Primary Care Provider Ora Diaz MD Primary Care Prov ider Jl Mendez MD Unavailable Jannette Boudreaux MD Unavailable [phone] Tenisha Mendieta PA-C Unavailable Julio Monk PA-C Unavailable Luis Armando [place]er MD Unavailable [phone] Jayesh Pineda MD Unavailable Kelsi Tejada MD Unavailable Unavailable Pretty Le MD Unavailable Vesta Michael PA-C Unavailable [facility] Unavailable Encounter Details Date Type Department Care Team Description 09/04/2014 Malt House Supervisor Report Medical Records [address] [place] [address] Jl Chou MD 175 [facility] [address] [place], [place] [id number] Social History Tobacco Use Types Packs/Day Years [...] on filedocumented in this encounter Care Teams Wildland Fire Fighter Specialist Relationship Specialty Start Date End Date Teressa Solis DO PCP - General Internal Medicine 12/18/13 09/15/20 Mina Pretty DO PCP - General Internal Medicine 09/16/20 Shweta Boucher MD PCP - General Internal Medicine 01/12/21 10/10/21 Ora Ronquillo MD [address] [place] [address] PCP - General Internal Medicine 10/11/21 Jl Mendez MD [address] [place] [address] Dr Mont[address] [place] [address] Specialist Cardiovascular Disease 10/13/21 Jannette Boudreaux MD [address] [address] Surgeon Neurosurgery 04/07/22 Tenisha Mendieta PA-C [address] [address] Specialist Neurosurgery 04/07/22 Julio Monk PA-C 175 [facility] [address] [place] [address] Specialist Neurosurgery 04/07/22 Luis Armando [place]er MD [address] [address] Specialist ORTHOPEDIC SURGERY 10/01/23 Jayesh Pineda MD [address] [place] [address] Specialist Endocrinology 10/01/23 Kelsi Tejada MD 305 [place] [address] Specialist Allergy & Immunology 10/01/23 Pretty Le MD 175 [facility] [address] [place] [address] Specialist Pulmonology 10/01/23 Vesta Michael PA-C 300 [facility] 210 [place] [address] Specialist Vascular Surgery 10/01/23 [facility] 46 [place] [address] Specialist Optometry 10/01/23 documented as of this encounter
--- OUTSIDE RECORDS SUMMARY | 2024-05-13 12:15 | XMS_ITS | Encounter Summary ---
Author Organization [facility] Address [address] [place] [address] Care Team Providers Care Registered Nurse Practitioner Name Role Phone Ora Ronquillo MD Primary Care Prov ider Jl Mendez MD Unavailable Jannette Boudreaux MD Unavailable [phone] Tenisha MendietaC Unavailable Julio Monk-C Unavailable Luis Armando [place]er MD Unavailable [phone] Jayesh Pineda MD Unavailable Kelsi Tejada MD Unavailable Unavailable Pretty Le MD Unavailable Vesta Michael PA-C Unavailable [facility] Unavailable [phone] Reason for Visit * Reason Onset Date Comments Surgery (Schedule) 10/10/2023 Encounter Details Date Type Department Care Team Description 10/10/2023 Telephone [facility] Medical [facility] 175 [facility] [address] [place] [address] Luis Armando [place]er MD 175 [facility] [address] [place] [address] [id number] Surgery (Schedule) Social History Tobacco Use Types Packs/Day Years Used Date Smoking Tobacco: Never Smokeless Tobacco: Never Alcohol Use Standard Drinks/Week Comments No 0 (1 standard drink = 0.6 oz pur e alcohol) Education Answer Date Recorded What is the highest level of school you have completed or the highest degree you have received? 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 Patient stated family emergency Patient will call back at some point to reschedule. Left RTC Dejah Walton documented in this encounter Plan of Treatment Not on file documented as of this encounter Visit Diagnoses Not on filedocumented in this encounter Care Teams Registered Nurse Practitioner Relationship Specialty Start Date End Date Ora Ronquillo MD 444 [place] [address] PCP - General Internal Medicine 10/11/21 Jl Mendez MD [address] [place] [address] Dr Montiel [address] [place] [address] Specialist Cardiovascular Disease 10/13/21 Jannette Boudreaux MD [address] [address] Surgeon Neurosurgery 04/07/22 Tenisha Mendieta PA-C [address] [address] Specialist Neurosurgery 04/07/22 Julio Monk PA-C 175 [facility] 300 [place] [address] Specialist Neurosurgery 04/07/22 Luis Armando Eller MD [address] [address] Specialist ORTHOPEDIC SURGERY 10/01/23 Jayesh Pineda MD 305 [place] [address] Specialist Endocrinology 10/01/23 Kelsi Tejada MD 305 [place] [address] Specialist Allergy & Immunology 10/01/23 Pretty Le MD 175 [facility] [address] [place] [address] Specialist Pulmonology 10/01/23 Vesta Michael PA-C 300 [facility] 210 [place] [address] Specialist Vascular Surgery 10/01/23 [facility] 46 [place] [address] Specialist Optometry 10/01/23 documented as of this encounter
--- OUTSIDE RECORDS SUMMARY | 2024-05-13 12:15 | XMS_ITS | Encounter Summary ---
Author Organization [facility] Address [address] [place] [address] Care Team Providers Care Basket Sorter Name Role Phone Ora Sweeney MD Primary Care Prov ider Reason for Visit * Reason Onset Date Comments Sore Throat 05/05/2024 Encounter Details Date Type Department Care Team ([facility] st Contact Info) Description 05/05/2024 Telephone Adult Medicine [address] [address] Ora Sweeney MD [address] [place] [address] Sore Throat (/) Social History Tobacco Use Types Packs/Day Years [...] for your loved ones. 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 [...] as of this encounter Progress Notes * Juwan Kc RN - 05/05/2024 10:42 AM EST Called and spoke with pt. Pt was seen on 04/25 for URI/sore throat neg flu covid rsv and strep. Pt sts since yesterday sore throat has gotten way worse. Able to swallow but painful no drooling no fever. Sts is doing warm salt warm gargles q4h no relief. Appt for today for evaluation * Harish Kimdor - 05/05/2024 9:30 AM EST Patient call requires triage: Symptoms patient is presenting: Patient called stating that she has a sore throat , states that it hurts for her to swallow , would like to speak to nurse to get advice on what to do How long has patient had these symptoms?: 2 weeks For ALL patients calling to schedule any appointment (routine, sick visit, follow up, consult, etc.) in the outpatient setting please ask the following questions: Do you have fever of higher than 101, sore throat with difficulty swallowing or severe shortness ofbreath? no If YES to any of these above symptoms, send a message to triage and do not book. Red dot. If no, an audio or video visit should be booked. Have you had close contact with someone with Coronavirus in the last 14 days? no Have you traveled abroad? no Have you traveled recently to another state outside of [place], [place], [place], [place], [place], [place], [place]? no o If yes, did you quarantine for 14 days or have a negative covid test? NO If yes to any of the above, patient is not to be scheduled in office until after 14 day quarantine or negative covid test. If pain or injury related was it due to an accident at work or from a motor vehicle accident? If yes, date of accident/Injury: No If yes, gather 3rd republican insurance information Third Democrat Information: not applicable PCP: Ora Couch MD Payor: [facility] MEDICARE ADVANTAGE / Plan: [facility] CARE OPTIONS / Product Type: *No Product type* / documented in this encounter Plan of Treatment Upcoming Encounters Date Type Department Care Team (Late st Contact Info) Description 05/28/2024 9:45 AM EDT Office Visit Adult Medicine [address] [address] Ora Sweeney MD [address] [place] [address] 06/04/2024 10:30 AM EDT Consult Bariatric Surgery [facility] 175 [facility] 120 [place] [phone] Lita Verde PA 271 [facility] 120 [place] [address] 06/04/2024 11:45 AM EDT Office Visit Orthopedic Surgery [facility] 160 175 [facility] 160 [place] [phone] Luis Armando Eller MD [address] [address] 06/05/2024 9:45 AM EDT Office Visit Orthopedic [facility] [address] [phone] Duke Dunn, DPJohan [address] [address] 06/06/2024 2:30 PM EDT Office Visit Obstetrics and Gynecology - [place] [address] [place] [address] Stacie Martinez, [facility] 444 [place] [address] 06/30/2024 10:30 AM EDT Office Visit Orthopedic Surgery [facility] [address] [phone] Luis Armando Eller MD [address] [address] 07/02/2024 9:30 AM EDT Office Visit Orthopedic Surgery [facility] [address] [phone] Lorie Moore NP [address] [address] 07/09/2024 9:30 AM EDT Office Visit Endocrinology - [place] [address] [place] [address] Jayesh Pineda MD 725 [place] [address] 09/22/2024 8:45 AM EDT Office Visit Pulmonolgy - [place] [address] [phone] Pretty Le MD [address] [address] documented as of this encounter Visit Diagnoses Not on filedocumented in this encounter Care Teams Basket Sorter Relationship Specialty Start Date End Date Ora Sweeney MD 444 [place] [address] PCP - General Internal Medicine 01/09/24 documented as of this encounter
--- OUTSIDE RECORDS SUMMARY | 2024-05-13 12:15 | XMS_ITS | Encounter Summary ---
Author Organization [facility] Address [address] [place] [address] Care Team Providers Care Care Clinician Name Role Phone Teressa Solis DO Primary Care Pro vider Unavailable Mina Pretty DO Primary Care Provider Shweta Cronin MD Primary Care Provider Ora Diaz MD Primary Care Prov ider Jl Mendez MD Unavailable Jannette Boudreaux MD Unavailable [phone] Tenisha Mendieta PA-C Unavailable Julio Monk PA-C Unavailable Luis Armando Eller MD Unavailable [phone] Jayesh Pineda MD Unavailable Kelsi Teajda MD Unavailable Unavailable Pretty Le MD Unavailable Vesta Michael PA-C Unavailable [facility] Unavailable Encounter Details Date Type Department Care Team Description 01/26/2014 Button Puncher Report Medical Records [address] [place] [address] Maureen Foster 8 [place] [address] Social History Tobacco Use Types Packs/Day Years [...] on filedocumented in this encounter Care Teams Care Clinician Relationship Specialty Start Date End Date Teressa Solis DO PCP - General Internal Medicine 12/18/13 09/15/20 Mina Pretty DO PCP - General Internal Medicine 09/16/20 Shweta Boucher MD PCP - General Internal Medicine 01/12/21 10/10/21 Ora Ronquillo MD [address] [place] [address] PCP - General Internal Medicine 10/11/21 Jl Mendez MD [address] [place] [address] Dr Mont[address] [place] [address] Specialist Cardiovascular Disease 10/13/21 Jannette Boudreaux MD [address] [address] Surgeon Neurosurgery 04/07/22 Tenisha Mendieta PA-C [address] [address] Specialist Neurosurgery 04/07/22 Julio Monk PA-C [address] [address] Specialist Neurosurgery 04/07/22 Luis Armando Eller MD [address] [address] Specialist ORTHOPEDIC SURGERY 10/01/23 Jayesh Pineda MD [address] [place] [address] Specialist Endocrinology 10/01/23 Kelsi Tejada MD 305 [facility] [place] [address] Specialist Allergy & Immunology 10/01/23 Pretty Le MD 175 [facility] [address] [place] [address] Specialist Pulmonology 10/01/23 Vesta Michael PA-C 300 [facility] 210 [place] [address] Specialist Vascular Surgery 10/01/23 [facility] [address] [place], [place] [phone] Specialist Optometry 10/01/23 documented as of this encounter
--- OUTSIDE RECORDS SUMMARY | 2024-05-13 12:15 | XMS_ITS | Encounter Summary ---
Author Organization [facility] Address [address] [place] [address] Care Team Providers Care Trial Court Judge Name Role Phone Ora Ronquillo MD Primary Care Prov ider Jl Mendez MD Unavailable Jannette Boudreaux MD Unavailable [phone] Tenisha Mendieta-C Unavailable Julio Monk PA-C Unavailable [phone] Luis Armando Eller MD Unavailable [phone] Jayesh Pineda MD Unavailable Kelsi Tejada MD Unavailable Unavailable Pretty Le MD Unavailable Vesta Michael PA-C Unavailable [phone] [facility] Unavailable [phone] Encounter Details Date Type Department Care Team Description 10/15/2023 SCAN [facility] Medical [facility] 175 [facility] [address] [place] [phone] Lorie Moore, DONN 1515 [facility] [place] [address] Social History Tobacco Use Types Packs/Day Years Used Date Smoking Tobacco: Never Smokeless Tobacco: Never Alcohol Use Standard Drinks/Week Comments No 0 (1 standard drink = 0.6 oz pur e alcohol) Education Answer Date Recorded What is the highest level of school you have completed or the highest degree you have received? 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, FOUNDATION RELATIONS DIRECTOR, CHANDRAKANT) 06/14/2020 Sex Assigned at Date Recorded Female 08/03/2020 10:16 PM EDT Job Start Date Occupation Industry Not on file Not on file Not on file documented as of this encounter Plan of Treatment Not on file documented as of this encounter Visit Diagnoses Not on filedocumented in this encounter Care Teams Trial Court Judge Relationship Specialty Start Date End Date Ora Ronquillo MD 444 [place] [address] PCP - General Internal Medicine 10/11/21 Jl Mendez MD [address] [place] [address] Dr [address] [place] [address] Specialist Cardiovascular Disease 10/13/21 Jannette Boudreaux MD [address] [address] Surgeon Neurosurgery 04/07/22 Tenisha Mendieta PA-C [address] [address] Specialist Neurosurgery 04/07/22 Julio Monk PA-C 175 [facility] 300 [place] [address] Specialist Neurosurgery 04/07/22 Luis Armando Eller MD [address] [address] Specialist ORTHOPEDIC SURGERY 10/01/23 Jayesh Pineda MD 305 [place] [address] Specialist Endocrinology 10/01/23 Kelsi Tejada MD 305 [place] [address] Specialist Allergy & Immunology 10/01/23 Pretty Le MD 175 [facility] 200 [place] [phone] Specialist Pulmonology 10/01/23 Vesta Michael PA-C 300 [facility] 210 [place] [phone] Specialist Vascular Surgery 10/01/23 [facility] 46 [place] [address] Specialist Optometry 10/01/23 documented as of this encounter
--- OUTSIDE RECORDS SUMMARY | 2024-05-13 12:15 | XMS_ITS | Encounter Summary ---
Author Organization [facility] Address [address] [place] [address] Care Team Providers Care Warehouse Picker Name Role Phone Teressa Solis DO Primary Care Pro vider Unavailable Mina Pretty DO Primary Care Provider Shweta Cronin MD Primary Care Provider Ora Diaz MD Primary Care Prov ider Jl Mendez MD Unavailable Jannette Boudreaux MD Unavailable [phone] Tenisha Mendieta PA-C Unavailable Julio Monk PA-C Unavailable [phone] Luis Armando Eller MD Unavailable [phone] Jayesh Pineda MD Unavailable Kelsi Tejada MD Unavailable Unavailable Pretty Le MD Unavailable Vesta Michael PA-C Unavailable [facility] Unavailable Encounter Details Date Type Department Care Team Description 05/19/2014 Orders Only Adult Medicine [address] [phone] Teressa Solis DO Dyslipidemia (Primary Dx) Social History Tobacco Use Types [...] as of this encounter Results * (ABNORMAL) LIPID PROFILE (12/28/2014 11:06 AM EDT) Cholesterol 162 0 - 200 mg/dL 12/28/2014 1:44 PM EDT [facility] TRIGLYCERIDES 192(H) 0 - 150 mg/dL 12/28/2014 1:44 PM EDT [facility] HDL CHOLESTEROL 52 >40 mg/dL 5 1:44 PM EDT [facility] LDL CALCULATED 72 0 - 100 mg/dL 12/28/2014 1:44 PM EDT [facility] TC-HDLC RATIO 3 0.0 - 4.4 mg/dL 12/28/2014 1:44 PM EDT [facility] 12/28/2014 11:0 6 AM EDT 12/28/2014 11:06 AM EDT Teressa Grace DO LAB Performing Organization Address City/State/RUST Co de Phone Number [facility] 444 [facility] documented in this encounter Visit Diagnoses Diagnosis Dyslipidemia- Primary Other and unspecified hyperlipidemia documented in this encounter Care Teams Warehouse Picker Relationship Specialty Start Date End Date Teressa Solis DO PCP - General Internal Medicine 12/18/13 09/15/20 Mina Pretty DO PCP - General Internal Medicine 09/16/20 1 Shweta Tellez MD PCP - General Internal Medicine 01/12/21 10/10/21 Ora Ronquillo MD 444 [place] [address] PCP - General Internal Medicine 10/11/21 Jl Mendez MD [address] [place] [address] [place] [address] Specialist Cardiovascular Disease 10/13/21 Jannette Boudreaux MD 175 [facility] 300 [place] [address] Surgeon Neurosurgery 04/07/22 Tenisha Mendieta PA-C 175 [facility] 300 [place] [address] Specialist Neurosurgery 04/07/22 Julio Monk PA-C 175 [facility] 300 [place] [address] Specialist Neurosurgery 04/07/22 Luis Armando Eller MD [address] [address] Specialist ORTHOPEDIC SURGERY 10/01/23 Jayesh Pineda MD 305 [place] [address] Specialist Endocrinology 10/01/23 Kelsi Tejada MD 305 [place] [address] Specialist Allergy & Immunology 10/01/23 Pretty Le MD 175 [facility] 200 [place] [phone] Specialist Pulmonology 10/01/23 Vesta Michael PA-C 300 [facility] 210 [place] [phone] Specialist Vascular Surgery 10/01/23 [facility] 46 [place] [address] Specialist Optometry 10/01/23 documented as of this encounter
--- OUTSIDE RECORDS SUMMARY | 2024-05-13 12:15 | XMS_ITS | Encounter Summary ---
Author Organization [facility] Address [address] [place] [address] Care Team Providers Care Head Of Training And Development Name Role Phone Teressa Solis DO Primary Care Pro vider Unavailable Mina Pretty DO Primary Care Provider Shweta Cronin MD Primary Care Provider Ora Diaz MD Primary Care Prov ider Jl Mendez MD Unavailable [phone] Jannette Boudreaux MD Unavailable [phone] Tenisha Mendieta PA-C Unavailable [phone] Julio Monk PA-C Unavailable Luis Armando Eller MD Unavailable [phone] Jayesh Pineda MD Unavailable Kelsi Tejada MD Unavailable Unavailable Pretty Le MD Unavailable Vesta Michael PA-C Unavailable [facility] Unavailable [phone] Encounter Details Date Type Department Care Team Description 01/08/2018 Orders Only Medical Records [address] [place] [address] Jeff Ogden MD Social History Tobacco Use [...] on filedocumented in this encounter Care Teams Head Of Training And Development Relationship Specialty Start Date End Date Teressa Solis, PCP - General Internal Medicine 12/18/13 09/15/20 Mina Pretty DO PCP - General Internal Medicine 09/16/20 Shweta Boucher MD PCP - General Internal Medicine 01/12/21 10/10/21 Ora Ronquillo MD [address] [place] [address] PCP - General Internal Medicine 10/11/21 Jl Mendez MD [address] [place] [address] Dr Montiel [address] [place] [address] Specialist Cardiovascular Disease 10/13/21 Jannette Boudreaux MD [address] [address] Surgeon Neurosurgery 04/07/22 Tenisha Mendieta PA-C [address] [address] Specialist Neurosurgery 04/07/22 Julio Monk PA-C 175 [facility] 300 [place] [address] Specialist Neurosurgery 04/07/22 Luis Armando Eller MD [address] [address] Specialist ORTHOPEDIC SURGERY 10/01/23 Jayesh Pineda MD 305 [place] [address] Specialist Endocrinology 10/01/23 Kelsi Tejada MD 305 [place] [address] Specialist Allergy & Immunology 10/01/23 Pretty Le MD 175 [facility] [address] [place] [address] Specialist Pulmonology 10/01/23 Vesta Michael PA-C 300 [facility] 210 [place] [address] Specialist Vascular Surgery 10/01/23 [facility] 46 [place] [address] Specialist Optometry 10/01/23 documented as of this encounter
--- OUTSIDE RECORDS SUMMARY | 2024-05-13 12:15 | XMS_ITS | Encounter Summary ---
Author Organization [facility] Address [address] [place] [address] Care Team Providers Care Certified Court Interpreter Name Role Phone Ora Sweeney MD Primary Care Prov ider Reason for Visit * Reason Comments Flu Symptoms Conjunctivitis Encounter Details Date Type Department Care Team (Late st Contact Info) Description 04/25/2024 9:00 AM EST Office Visit Adult Medicine [facility] [address] [place] [address] Zeina Reece MD [address] [place] [address] SOB (shortness of breath) (Primary Dx); Asthma-chronic obstructive pulmonary disease overlap syndrome (CMS/HCC); Primary hypertension; Sore throat; URI, acute; Bacterial conjunctivitis of both eyes Social History Tobacco Use Types Packs/Day Years [...] for your loved ones. For example, child life specialist or elderly care for an older [...] Sign Reading Time Taken Comments Blood Pressure 164/70 04/25/2024 9:13 AM EST Pulse 80 04/25/2024 9:13 AM EST Temperature 36.4 ??C (97.5 ??F) 04/25/2024 9:13 AM ES T Respiratory Rate 12 04/25/2024 9:13 AM EST Oxygen Saturation - - Inhaled Oxygen Concentration - - Weight 123 kg (271 lb) 04/25/2024 9:13 AM EST Height 160 cm (5' 3 ) 04/25/2024 9:13 AM EST Body Mass Index 48.01 04/25/2024 9:13 AM EST documented in this encounter Ordered Prescriptions Prescription Sig Dispense Quantity Refills Last Filled Start Date End Date benzonatate (TESSALON) 100 mg capsule Take 1 capsule (100 mg total) by mouth 3 (three) times a day if needed for cough. Do not crush or chew. 42 capsule 04/25/2024 5 predniSONE (DELTASONE) 20 mg tablet Take 60 mg PO daily for 3 days, then take 40 mg PO daily for 3 days, then 20 mg PO daily for 3 days, then stop 18 tablet 04/25/2024 ipratropium-albut Sandi (DUONEB) 0.5-2.5 mg/3 mL nebulizer solutionIndicatio ns:Asthma-chronic obstructive pulmonary disease overlap syndrome (CMS/HCC) Take 3 mL by nebulization 4 (four) times a day if needed for wheezing or shortness of breath. 360 mL 3 04/25/2024 6 trimethoprim-poly myxin b (POLYTRIM) ophthalmic solution Administer 1 drop into both eyes 4 (four) times a day for 7 days. 10 mL 04/25/2024 5 documented in this encounter Progress Notes * Zeina Reece MD - 04/25/2024 9:00 AM EST CHIEF COMPLAINT: Flu Symptoms and Conjunctivitis IDENTIFIER: Ana Luisa House is a 63 y.o. old female. HPI: 63 yo F comes for 2 days Mucus (yellow cream) coming from eyes Sore throat Cough (yellow) Tried: Mucinex every 4 hours Acetaminophen Patient has chronic illnesses including: Hypertension Hyperlipidemia Asthma/COPD overlap syndrome Patient noted her blood pressure is uncontrolled as she was rushing and she has not taking her blood pressure medication for today ROS: The remainder of review of systems is noncontributory. PAST MEDICAL HISTORY: Patient Active Problem List [...] 04/12/2015 Seasonal allergies 08/18/2013 Urge incontinence 08/23/2012 SOCIAL HISTORY: Social History Tobacco Use Smoking status: Never Smokeless tobacco: Never Substance Use Topics Alcohol use: No FAMILY HISTORY: Family Status Relation Name Status Aunt maternal x 1 Mother Alive Father Alive MGM MGF Aunt maternal x 6 PGF Sister x 2 Alive Brother x 2 Alive Mother's kim 1st cousin Alive Mother's kim 1st cousin PGM No partnership data on file Family History Problem Relation Name Age of Onset Breast cancer Aunt maternal x 1 50.00 Diabetes Mother with neuropathy, OA, Uterine cancer Mother 31.00 Colon cancer Mother 59.00 Ovarian cancer Mother 31.00 Coronary artery disease Father [place] age 68, HTN, Diabetes, cataract, glaucoma Ovarian cancer Maternal Grandmother 50.00 uterine cancer same age Emphysema Maternal Grandfather 97.00 Ovarian cancer Aunt maternal x 6 50.00 6 maternal aunts also with ov, uterine ca Lung cancer Paternal Grandfather 75.00 Colon polyps Sister x 2 50.00 glaucoma, diabetes Glaucoma Brother x 2 Lymphoma Mother's side 1st cousin Lung cancer Mother's side 1st cousin ACTIVE MEDICATIONS: Outpatient Medications Marked as Taking for the 04/25/24 encounter (Office Visit) with Zeina Reece MD Medication Sig Dispense Refill acetaminophen (TYLENOL [...] tablet Take 1 tablet by mouth daily. ejilqhfkqmc-uswyifvmpxbj-lfjwjguwse (Trelegy Ellipta) 100-62.5-25 mcg inhaler Inhale 1 Puff into the lungs daily for 363 days. FREESTYLE LANCETS [facility] Use to test blood sugars once daily [...] UNABLE TO FIND Inhale into the lungs. [facility]-supplies only venlafaxine XR (EFFEXOR-XR) 37.5 mg 24 hr capsule ALLERGIES: Cefadroxil, Methylprednisolone, Other, Penicillins, Animal dander, Bee pollen, Cat's claw, Chocolate, Chocolate flavor, Dog dander, House dust mite, Latex, Levonorgestrel-ethinyl estrad, Mold, Nut - unspecified, Oxycodone, and Rabbit epithelium allergenic extract PHYSICAL EXAM: Blood pressure (!) 164/70, pulse 80, temperature 36.4 ??C (97.5 ??F), resp. rate 12, height 1.6 m (63 ), weight 123 kg (271 lb). Body mass index is 48.01 kg/m??. BMI is greater than 25.0 (above the normal range) - see Plan APPEARANCE: Alert and in no acute distress HEART: RRR with normal S1 and S2, no murmurs, no gallops, no JVD appreciated LUNG: clear to auscultation bilaterally auscultation was limited as patient was coughing when she tried to take deep breaths Otoscopic exam was normal Bacterial conjunctivitis IMPRESSION: 1. SOB (shortness of breath) 2. Asthma-chronic obstructive pulmonary disease overlap syndrome (CMS/HCC) 3. Primary hypertension 4. Sore throat 5. URI, acute 6. Bacterial conjunctivitis of both eyes PLAN: 63 yo F comes for 2 days Mucus (yellow cream) coming from eyes Sore throat Cough (yellow) Tried: Mucinex every 4 hours Acetaminophen Patient has chronic illnesses including: Hypertension Hyperlipidemia Asthma/COPD overlap syndrome Patient noted her blood pressure is uncontrolled as she was rushing and she has not taking her blood pressure medication for today #Shortness of breath #Asthma/COPD overlap syndrome #URI Plan: Patient will continue with her DuoNebs, albuterol inhaler Patient given Tessalon Perles to use as needed Patient was given prednisone taper Chest x-ray ordered to rule out pneumonia Rapid strep test was ordered and was negative COVID/flu/RSV lab was ordered #Bacterial conjunctivitis Plan: Patient was given trimethoprim with polymyxin eyedrops Patient will follow-up with her resource management specialist #Hypertension, uncontrolled Plan: Patient will continue with her amlodipine 10 mg daily as well as clonidine 0.1 mg for hypertension as well as losartan 100 mg daily Patient will continue with lifestyle changes including diet and exercise #Hyperlipidemia Plan: Patient will continue with Lipitor 20 mg daily Patient will continue with lifestyle changes including diet and exercise Orders Placed This Encounter Procedures [id number], RSV, Influenza A and B qualitative RT-PCR XR Chest 2 Views POC rapid strep A manually resulted ADDITIONAL ORDERS: None Zeina Reece MD on 04/25/2024 at 1:14 PM EST documented in this encounter Plan of Treatment Upcoming Encounters Date Type Department Care Team (Late st Contact Info) Description 05/28/2024 9:45 AM EDT Office Visit Adult Medicine [address] [address] Ora Sweeney MD [address] [place] [address] 06/04/2024 10:30 AM EDT Consult Bariatric Surgery [facility] [address] [phone] Lita Verde PA [address] [address] 06/04/2024 11:45 AM EDT Office Visit Orthopedic Surgery [facility] 160 175 [facility] 160 [place] [phone] Luis Armando Eller MD 175 [facility] 160 [place] [address] 06/05/2024 9:45 AM EDT Office Visit Orthopedic Surgery [facility] 250 175 [facility] 250 [place] [phone] Duke Dunn DPM 175 [facility] 250 [place] [address] 06/06/2024 2:30 PM EDT Office Visit Obstetrics and Gynecology - [place] [address] [place] [address] Stacie Martinez, CN [address] [place] [address] 06/30/2024 10:30 AM EDT Office Visit Orthopedic Surgery [facility] 160 175 [facility] 160 [place] [address] Luis Armando Eller MD [address] [address] 07/02/2024 9:30 AM EDT Office Visit Orthopedic Surgery [facility] [address] [phone] Lorie Moore NP [address] [address] 07/09/2024 9:30 AM EDT Office Visit Endocrinology - [place] [address] [place] [address] Jayesh Pineda MD [address] [place] [address] 09/22/2024 8:45 AM EDT Office Visit Pulmonolgy - [place] [address] [phone] Pretty Le MD [address] [address] documented as of this encounter Procedures Procedure Name Priority Date/Time Associated Diagnosis Comments POC RAPID STREP A Routine 04/25/2024 10: 39 AM EST Sore throat URI, acute [id number], RSV, FLU A AND B QUALITATIVE RT-PCR, LOCAL REFERENCE LAB Routine 04/25/2024 10:34 AM EST URI, acute documented in this encounter Results * POC rapid strep A manually resulted (04/25/2024 10:39 AM EST) Pathologist [facility] Rapid Strep A Screen POC Negative Negative Internal Control Pass Yes Yes Swab Structure of anterior portion of neck / Unknown 04/25/2024 10:39 AM EST Zeina Reece MD POINT OF CARE TEST ENTER/ED IT ORDERABLES Final Result * [id number], RSV, Influenza A and B qualitative RT-PCR (04/25/2024 10:34 AM EST) [facility] SARS COV-2 Not Detected Not Detected LAB MOLECULAR DIAGNOSTICS METHOD 04/25/2024 4:13 PM EST [facility] Influenza A PCR Not Detected Not Detected LAB MOLECULAR DIAGNOSTICS METHOD 04/25/2024 4:13 PM EST [facility] Influenza B PCR Not Detected Not Detected LAB MOLECULAR DIAGNOSTICS METHOD 04/25/2024 4:13 PM EST [facility] RSV PCR Not Detected Not Detected LAB MOLECULAR DIAGNOSTICS METHOD 04/25/2024 4:13 PM EST [facility] Swab Nasopharyngeal structure / Unknown Non-blood Collection / Unknown 04/25/2024 10:34 AM EST 04/25/2024 10:34 AM EST Zeina Reece MD LAB MICROBIOLOGY - GENERAL ORDERABLES Final Result [facility] [address] [place] [address], [place] [phone] * XR Chest 2 Views (04/25/2024 10:10 AM EST) Anatomical Region Laterality Modality Body Radiographic Ivy ging 04/25/2024 1:15 PM EST Impressions 04/25/2024 1:15 PM EST No acute cardiopulmonary process. -------- FINAL REPORT -------- Dictated By: Malathi Pak Dictated Date: 04/25/2024 13:15 ET Assigned Physician: Malathi Pak Reviewed and Electronically Signed By: Malathi Pak Signed Date: 04/25/2024 13:15 ET Workstation ID: [id number] Transcribed By: Self Edit Transcribed Date: 04/25/2024 [...] Signed Date: 04/25/2024 13:15 ET Workstation ID: [id number] Transcribed By: Self Edit Transcribed Date: 04/25/2024 13:15 ET us Zeina Reece MD IMG XR PROCEDURES Final Res ult documented in this encounter Visit Diagnoses Diagnosis SOB (shortness of breath)- Primary Shortness of breath Asthma-chronic obstructive pulmonary disease overlap syndrome (CMS/HCC) Primary hypertension Unspecified essential hypertension Sore throat Acute pharyngitis URI, acute Acute upper respiratory infections of unspecified site Bacterial conjunctivitis of both eyes SOB (shortness of breath) Shortness of breath documented in this encounter Additional Health Concerns Infection Onset Date Last Indicated Resolved Time Respiratory Rule-Out 04/25/2024 04/25/2024 025 4:13 PM EST COVID-19 Rule-Out 04/25/2024 04/25/2024 04/25/2024 4:13 PM EST documented as of this encounter Care Teams Certified Court Interpreter Relationship Specialty Start Date End Date Ora Sweeney MD [address] [place] [address] PCP - General Internal Medicine 01/09/24 documented as of this encounter
--- OUTSIDE RECORDS SUMMARY | 2024-05-13 12:15 | XMS_ITS | Encounter Summary ---
Author Organization [facility] Address [address] [place] [address] Care Team Providers Care Slubber Tender Name Role Phone Teressa Solis DO Primary Care Pro vider Unavailable Mina Pretty DO Primary Care Provider Shweta Cronin MD Primary Care Provider Ora Diaz MD Primary Care Prov ider Jl Mendez MD Unavailable Jannette Boudreaux MD Unavailable [phone] Tenisha Mendieta PA-C Unavailable Julio Monk PA-C Unavailable Luis Armando Eller MD Unavailable [phone] Jayesh Pineda MD Unavailable Kelsi Tejada MD Unavailable Unavailable Pretty Le MD Unavailable Vesta Michael PA-C Unavailable [phone] Unavailable [phone] Encounter Details Date Type Department Care Team Description 04/25/2018 Hospital Medical Records [address] [place] [address] [facility] Social History Tobacco Use Types Packs/Day Years Used Date Smoking Tobacco: Never Smokeless Tobacco: Never Alcohol Use Standard Drinks/Week Comments No 0 (1 standard drink = 0.6 oz pur e alcohol) Education Answer Date Recorded What is the highest level of school you have completed or the highest degree you have received? 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, STEAM METER READER, CHANDRAKANT) 06/14/2020 Sex Assigned at Date Recorded Female 08/03/2020 10:16 PM EDT Job Start Date Occupation Industry Not on file Not on file Not on file documented as of this encounter Plan of Treatment Not on file documented as of this encounter Visit Diagnoses Not on filedocumented in this encounter Care Teams Slubber Tender Relationship Specialty Start Date End Date Teressa Solis, PCP - General Internal Medicine 12/18/13 09/15/20 Mina Pretty DO PCP - General Internal Medicine 09/16/20 Shweta Boucher MD PCP - General Internal Medicine 01/12/21 10/10/21 Ora Ronquillo MD [address] [place] [address] PCP - General Internal Medicine 10/11/21 Jl Mendez MD [address] [place] [address] Dr Mont[address] [place] [address] Specialist Cardiovascular Disease 10/13/21 Jannette Boudreaux MD [address] [address] Surgeon Neurosurgery 04/07/22 Tenisha Mendieta PA-C [address] [address] Specialist Neurosurgery 04/07/22 Julio Monk PA-C 175 [facility] [address] [place] [address] Specialist Neurosurgery 04/07/22 Luis Armando Eller MD [address] [address] Specialist ORTHOPEDIC SURGERY 10/01/23 Jayesh Pineda MD [address] [place] [address] Specialist Endocrinology 10/01/23 Kelsi Tejada MD 305 [place] [address] Specialist Allergy & Immunology 10/01/23 Pretty Le MD 175 [facility] [address] [place] [address] Specialist Pulmonology 10/01/23 Vesta Michael PA-C 300 [facility] [address] [place] [address] Specialist Vascular Surgery 10/01/23 [facility] [address] [place], [place] [phone] Specialist Optometry 10/01/23 documented as of this encounter
--- OUTSIDE RECORDS SUMMARY | 2024-05-13 12:15 | XMS_ITS | Encounter Summary ---
Author Organization [facility] Address [address] [place] [address] Care Team Providers Care White Sugar Pan Tank Operator Name Role Phone Teressa Solis DO Primary Care Pro vider Unavailable Mina Pretty DO Primary Care Provider Ailyn Shweta Pretty MD Primary Care Provider UnarOa Randall MD Primary Care Prov ider Jl Mendez MD Unavailable [phone] Jannette Boudreaux MD Unavailable [phone] Tenisha Mendieta PA-C Unavailable Julio MonkC Unavailable [phone] Luis Armando Eller MD Unavailable [phone] Jayesh Pineda MD Unavailable Kelsi Tejada MD Unavailable Unavailable Pretty Le MD Unavailable Vesat Michael PA-C Unavailable [phone] [facility] Unavailable Encounter Details Date Type Department Care Team Description 03/06/2018 Orders Only Pulmonology - [place] 175 [facility] [address] [place] [address] Julio Cesar Weiss MD 175 [facility] Dines[address] [place] [address] Obstructive sleep apnea severe AHI [...] seasonality documented in this encounter Care Teams White Sugar Pan Tank Operator Relationship Specialty Start Date End Date Teressa Solis DO PCP - General Internal Medicine 12/18/13 09/15/20 Mina Pretty DO PCP - General Internal Medicine 09/16/20 1 Shweta Tellez MD PCP - General Internal Medicine 01/12/21 10/10/21 Ora Ronquillo MD [address] [place] [address] PCP - General Internal Medicine 10/11/21 Jl Mendez MD [address] [place] [address] [place] [address] Specialist Cardiovascular Disease 10/13/21 Jannette Boudreaux MD 175 [facility] 300 [place] [address] Surgeon Neurosurgery 04/07/22 Tenisha Mendieta PA-C 175 [facility] 300 [place] [address] Specialist Neurosurgery 04/07/22 Julio Monk PA-C 175 [facility] 300 [place] [address] Specialist Neurosurgery 04/07/22 Luis Armando Eller MD [address] [address] Specialist ORTHOPEDIC SURGERY 10/01/23 Jayesh Pineda MD 305 [place] [address] Specialist Endocrinology 10/01/23 Kelsi Tejada MD 305 [place] [address] Specialist Allergy & Immunology 10/01/23 Pretty Le MD 175 [facility] 200 [place] [phone] Specialist Pulmonology 10/01/23 Vesta Michael PA-C 300 [facility] 210 [place] [phone] Specialist Vascular Surgery 10/01/23 [facility] 46 [place] [address] Specialist Optometry 10/01/23 documented as of this encounter
--- OUTSIDE RECORDS SUMMARY | 2024-05-13 12:15 | XMS_ITS | Encounter Summary ---
Author Organization [facility] Address [address] [place] [address] Care Team Providers Care Human Service Coordinator Name Role Phone Teressa Solis DO Primary Care Pro vider Unavailable Mina Pretty DO Primary Care Provider Shweta Cronin MD Primary Care Provider Ora Diaz MD Primary Care Prov ider Jl Mendez MD Unavailable Jannette Boudreaux MD Unavailable [phone] Tenisha Mendieta PA-C Unavailable [phone] Julio Monk PA-C Unavailable Luis Armando Eller MD Unavailable [phone] Jayesh Pineda MD Unavailable Kelsi Tejada MD Unavailable Unavailable Pretty Le MD Unavailable Vesta Michael PA-C Unavailable [facility] Unavailable Encounter Details Date Type Department Care Team Description 03/06/2018 Blow Molding Machine Operator Report Medical Records 4 [place] [address] Abstract, Provider Social History Tobacco Use Types [...] on filedocumented in this encounter Care Teams Human Service Coordinator Relationship Specialty Start Date End Date Teressa Solis DO PCP - General Internal Medicine 12/18/13 09/15/20 Mina Pretty DO PCP - General Internal Medicine 09/16/20 Shweta Boucher MD PCP - General Internal Medicine 01/12/21 10/10/21 Ora Ronquillo MD [address] [place] [address] PCP - General Internal Medicine 10/11/21 Jl Mendez MD [address] [place] [address] Specialist Cardiovascular Disease 10/13/21 Jannette Boudreaux MD [address] [address] Surgeon Neurosurgery 04/07/22 Tenisha Mendieta PA-C [address] [address] Specialist Neurosurgery 04/07/22 Julio Monk PA-C [address] [address] Specialist Neurosurgery 04/07/22 Luis Armando Eller MD [address] [address] Specialist ORTHOPEDIC SURGERY 10/01/23 Jayesh Pineda MD 305 [place] [address] Specialist Endocrinology 10/01/23 Kelsi Tejada MD 305 [place] [address] Specialist Allergy & Immunology 10/01/23 Pretty Le MD 175 [facility] [address] [place] [address] Specialist Pulmonology 10/01/23 Vesta Michael PA-C 300 [facility] [address] [place] [address] Specialist Vascular Surgery 10/01/23 [facility] [address] [place] [address] Specialist Optometry 10/01/23 documented as of this encounter
--- OUTSIDE RECORDS SUMMARY | 2024-05-13 12:15 | XMS_ITS | Encounter Summary ---
Author Organization [facility] Address [address] [place] [address] Care Team Providers Care Baby Doctor Name Role Phone Ora Sweeney MD Primary Care Prov ider Reason for Referral * Consultation (Routine) - Authorized Specialty Diagnoses / Procedures Referred By Janie castillo Referred To Contact Otolaryngology Diagnoses Sore throat Loss of voice Chuck Felix MD [address] [place] [address] Phone: tel: fax: [facility] [address] [facility] [address] [place] [address] Phone: tel: fax: Referral ID Status Reason Start Date Expiration Date Visits Requested Visits Authorized [id number] Authorized Specialty Services Required 05/05/2024 05/05/2025 1 1 Reason for Visit * Reason Comments Sore Throat Sore throat for 1 da y Encounter Details Date Type Department Care Team (Late st Contact Info) Description 05/05/2024 4:30 PM EST Office Visit Adult Medicine [address] [address] Chuck Felix MD [address] [place] [address] Sore throat (Primary Dx); Loss of voice Social History Tobacco Use Types Packs/Day Years [...] your loved ones. For example, child life therapist or elderly care for an older [...] Mass Index 47.47 05/05/2024 4:42 PM EST documented in this encounter Progress Notes * Chuck Felix MD - 05/05/2024 4:30 PM EST CHIEF COMPLAINT: Sore Throat (Sore throat for 1 day) IDENTIFIER: Ana Luisa House is a 63 y.o. old female. HPI: This patient was a very complex past med history listed below, presents to see me for the first time complaining about ongoing URI symptoms. Today patient major complaint is sore throat and loss of voice. She initially developed a URI, I noted the patient's evaluation by my colleague April 25, 2024, I reviewed x-ray ordered by my colleague. Patient symptom wax and wane with some improvement howeversore throat persisted and she lost her voice recently. She is very concerned. She denied fever or chills, difficulty swallowing, feeling lumps in the neck. She actually specially denied shortness of breath, wheezing. She has baseline despond exertion that was believed to be related with the patient's weight. ROS: GENERAL: Negative for malaise, significant weight loss and fever RESPIRATORY: See HPI CARDIOVASCULAR: Negative for chest pain, leg swelling and palpitations GI: Negative for abdominal discomfort, changes in bowel habits, blood in stool or black stools PAST MEDICAL HISTORY: Patient Active Problem List [...] hypertrophy 08/23/2021 Pulmonary eosinophilia (CMS/HCC) 07/14/2021 Hyperparathyroidism ([facility]) 03/09/2021 Diabetes mellitus type 2, controlled, without complications ([facility]) 02/16/2021 Anxiety and depression 06/14/2020 Asthma, moderate [...] cancer Mother 31.00 Coronary artery disease Father [place] age 68, HTN, Diabetes, cataract, glaucoma Ovarian [...] Outpatient Medications Marked as Taking for the 05/05/24 encounter (Office Visit) with Chuck Felix MD Medication Sig Dispense Refill acetaminophen (TYLENOL [...] daily. At night wear socks to bed atorvastatin (LIPITOR) 20 mg tablet TAKE 1 TABLET BY MOUTH EVERY DAY 90 tablet 1 azelastine HCl (ASTELIN NASL) 2 Sprays by Nasal route 2 times daily. benzonatate (TESSALON) 100 mg capsule Take 1 capsule (100 mg total) by mouth 3 (three) times a day if needed for cough. Do not crush or chew. 42 capsule 0 betamethasone, augmented, (DIPROLENE-AF) 0.05 % cream APPLY [...] tablet Take 1 tablet by mouth daily. lvdnwibmfkr-qoodvmzshbli-vphwjfiyyv (Trelegy Ellipta) 100-62.5-25 mcg inhaler Inhale 1 Puff into the lungs daily for 363 days. FREESTYLE LANCETS [facility] Use to test blood sugars once daily in the morning, before breakfast. ibuprofen (ADVIL,MOTRIN) 800 mg tablet ipratropium-albuteroL (DUONEB) 0.5-2.5 mg/3 mL nebulizer solution Take 3 mL by nebulization 4 (four) times a day if needed for wheezing or shortness of breath. 360 mL 3 ketoconazole (NIZORAL) 2 % cream Apply 1 Dose topically 2 times daily for 30 days. ketotifen (ZADITOR) 0.025 % ophthalmic solution ketotifen 0.025 % (0.035 %) eye drops lidocaine (LIDODERM) 5 % patch Place 1 Patch onto the skin every 24 hours for 28 days. Apply for nomore than 12 hours in any 24 hour period. B02.29 losartan (COZAAR) 100 mg tablet TAKE 1 TABLET BY MOUTH EVERY DAY 90 tablet 0 montelukast (SINGULAIR) 10 mg tablet Take 1 Tablet by mouth at bedtime. Nucala 100 mg/mL auto-injector senna (SENOKOT) 8.6 mg tablet Take 1 Tablet by mouth at bedtime. sertraline (ZOLOFT) 100 mg tablet TAKE 1 TABLET BY MOUTH EVERY DAY IN THE MORNING Stool Softener-Laxative 8.6-50 mg per tablet traZODone (DESYREL) 100 mg tablet TAKE 1 TABLET EVERY NIGHT AT BEDTIME NEEDED CAN TAKE 1/2 TO ONE TABLET AT NIGHT TO HELP SLEEP triamcinolone (NASACORT) 55 mcg nasal inhaler INSTILL 1 TO 2 SPRAYS INTO EACH NOSTRIL ONCE DAILY. Trulicity 1.5 mg/0.5 mL pen injector injection Inject 0.5 mL (1.5 mg total) under the skin. UNABLE TO FIND Inhale into the lungs. [facility]-supplies only venlafaxine XR (EFFEXOR-XR) 37.5 mg 24 hr capsule ALLERGIES: Cefadroxil, Methylprednisolone, Other, Penicillins, Animal dander, Bee pollen, Cat's claw, Chocolate, Chocolate flavor, Dog dander, House dust mite, Latex, Levonorgestrel-ethinyl estrad, Mold, Nut - unspecified, Oxycodone, and Rabbit epithelium allergenic extract PHYSICAL EXAM: Blood pressure (!) 158/78, pulse 68, temperature 36 ??C (96.8 ??F), temperature source Temporal, resp. rate 20, height 1.6 m (63 ), weight 122 kg (268 lb), SpO2 97%. Body mass index is 47.47 kg/m??. Plan is deferred until next visit APPEARANCE: Alert and in no acute distress, smiling MOUTH/THROAT: mild erythema and no tonsillar enlargements no postnasal drip somewhat low fornix NECK: No JVD no lymphadenopathy no bruits HEART: Normal S1-S2 LUNG: clear to auscultation bilaterally LABS: Rapid strep negative IMPRESSION: 1. Sore throat 2. Loss of voice PLAN: This patient was a very complex past med history listed below, presents to see me for the first time complaining about ongoing URI symptoms. Today patient major complaint is sore throat and loss of voice. She initially developed a URI, I noted the patient's evaluation by my colleague April 25, 2024, I reviewed x-ray ordered by my colleague. Patient symptom wax and wane with some improvement howeversore throat persisted and she lost her voice recently. She is very concerned. She denied fever or chills, difficulty swallowing, feeling lumps in the neck. She actually specially denied shortness of breath, wheezing. She has baseline despond exertion that was believed to be related with the patient's weight. Patient likely has viral URI, viral pharyngitis. Vital signs stable without fever, O2 saturation good, rapid strep negative. She however is very concerned with persistent sore throat now with loss ofvoice. I have to admit patient has a low phonics, despite use of a tongue depressor, examination isdifficult. We discussed maintaining adequate hydration, use of gywy-gjc-hwbxapz agents. I decided to ask consultation from ENT. Warning symptoms discussed that would need immediate reevaluation, including ER visit. Patient has a follow-up appointment scheduled to see PCP in 2 to 3 weeks. Orders Placed This Encounter Procedures Ambulatory referral to ENT POC rapid strep A manually resulted ADDITIONAL ORDERS: AMB REFERRAL TO ENT Chuck Felix MD on 05/06/2024 at 9:29 AM EST documented in this encounter Plan of Treatment Upcoming Encounters Date Type Department Care Team ([facility] st Contact Info) Description 05/28/2024 9:45 AM EDT Office Visit Adult Medicine [address] [phone] Ora Sweeney MD [address] [place] [address] 06/04/2024 10:30 AM EDT Consult Bariatric Surgery - [place] [address] [phone] Lita Verde PA [address] [address] 06/04/2024 11:45 AM EDT Office Visit Orthopedic Surgery [facility] [address] [phone] Luis Armando Eller MD [address] [address] 06/05/2024 9:45 AM EDT Office Visit Orthopedic Surgery [facility] [address] [facility] 250 [place] [phone] Duke Dunn DPM [address] [address] 06/06/2024 2:30 PM EDT Office Visit Obstetrics and Gynecology - [place] [address] [place] [address] Stacie Martinez, CN 444 [place] [address] 06/30/2024 10:30 AM EDT Office Visit Orthopedic Surgery [facility] [address] [phone] Luis Armando Eller MD [address] [address] 07/02/2024 9:30 AM EDT Office Visit Orthopedic Surgery [facility] [address] [phone] Lorie Moore NP [address] [address] 07/09/2024 9:30 AM EDT Office Visit [place] [facility] [address] [place] [phone] Jayesh Pineda MD 5 [place] [address] 09/22/2024 8:45 AM EDT Office Visit Pulmonolgy [facility] [address] [phone] Pretty Le MD [address] [address] Scheduled Referrals Name Type Priority Associated Diagnoses Order Schedule Ambulatory referral to ENT Outpatient Referral Routine Sore throat Loss of voice 1 Occurrences starting 05/05/2024 until 05/05/2025 documented as of this encounter Procedures Procedure Name Priority Date/Time Associated Diagnosis Comments POC RAPID STREP A Routine 05/05/2024 4:5 9 PM EST Sore throat documented in this encounter Results * POC rapid strep A manually resulted (05/05/2024 4:59 PM EST) Rapid Strep A Screen POC Negative Negative Swab Structure of anterior portion of neck / Unknown 05/05/2024 4:59 PM EST Chuck Felix MD POINT OF CARE TEST ENTER/EDIT OR DERABLES Edited Result - Final documented in this encounter Visit Diagnoses Diagnosis Sore throat- Primary Acute pharyngitis Loss of voice Aphonia documented in this encounter Care Teams Baby Doctor Relationship Specialty Start Date End Date Ora Sweeney MD [address] [place] [address] PCP - General Internal Medicine 01/09/24 documented as of this encounter
--- OUTSIDE RECORDS SUMMARY | 2024-05-13 12:15 | XMS_ITS | Encounter Summary ---
Author Organization [facility] Address [address] [place] [address] Care Team Providers Care Design Center Consultant Name Role Phone Teressa Solis DO Primary Care Pro vider Unavailable Mina Pretty DO Primary Care Provider Shweta Cronin MD Primary Care Provider Ora Diaz MD Primary Care Prov ider Jl Mendez MD Unavailable Jannette Boudreaux MD Unavailable [phone] Tenisha Mendieta PA-C Unavailable [phone] Julio Monk PA-C Unavailable Luis Armando Eller MD Unavailable [phone] Jayesh Pineda MD Unavailable Kelsi Tejada MD Unavailable Unavailable Pretty Le MD Unavailable Vesta Michael PA-C Unavailable [phone] [facility] Unavailable [phone] Encounter Details Date Type Department Care Team Description 02/22/2018 Director Of Content Marketing Report Medical Records [address] [place] [address] Narinder Franco MD Social History Tobacco Use [...] on filedocumented in this encounter Care Teams Design Center Consultant Relationship Specialty Start Date End Date Teressa Solis DO PCP - General Internal Medicine 12/18/13 09/15/20 Mina Pretty DO PCP - General Internal Medicine 09/16/20 Shweta Boucher MD PCP - General Internal Medicine 01/12/21 10/10/21 Ora Ronquillo MD [address] [place] [address] PCP - General Internal Medicine 10/11/21 Jl Mendez MD [address] [place] [address] Specialist Cardiovascular Disease 10/13/21 Jannette Boudreaux MD [address] [address] Surgeon Neurosurgery 04/07/22 Tenisha Mendieta PA-C [address] [address] Specialist Neurosurgery 04/07/22 Julio Monk PA-C [address] [address] Specialist Neurosurgery 04/07/22 Luis Armando Eller MD [address] [address] Specialist ORTHOPEDIC SURGERY 10/01/23 Jayesh Pineda MD [address] [place] [address] Specialist Endocrinology 10/01/23 Kelsi Tejada MD [address] [place] [address] Specialist Allergy & Immunology 10/01/23 Pretty Le MD 175 [employer] [address] [place] [address] Specialist Pulmonology 10/01/23 Vesta Michael PA-C 300 [facility] 210 [place] [address] Specialist Vascular Surgery 10/01/23 [facility] [address] [place] [address] Specialist Optometry 10/01/23 documented as of this encounter
--- OUTSIDE RECORDS SUMMARY | 2024-05-13 12:15 | XMS_ITS | Encounter Summary ---
Author Organization [facility] Address [address] [place] [address] Care Team Providers Care Director Of Billing Name Role Phone Teressa Solis DO Primary Care Pro vider Unavailable Mina Pretty DO Primary Care Provider Shweta Cronin MD Primary Care Provider Ora Diaz MD Primary Care Prov ider Jl Mendez MD Unavailable Jannette Boudreaux MD Unavailable [phone] Tenisha Mendieta PA-C Unavailable Julio Monk PA-C Unavailable Luis Armando Eller MD Unavailable [phone] Jayesh Pineda MD Unavailable Kelsi Tejada MD Unavailable Unavailable Pretty Le MD Unavailable Vesta Michael PA-C Unavailable [phone] [facility] Unavailable [phone] Encounter Details Date Type Department Care Team Description 12/21/2017 Feed Blender Report Medical Records [address] [place] [address] Narinder Franco MD Social History Tobacco Use [...] filedocumented in this encounter Care Teams Director Of Billing Relationship Specialty Start Date End Date Teressa Solis DO PCP - General Internal Medicine 12/18/13 09/15/20 Mina Pretty DO PCP - General Internal Medicine 09/16/20 Shweta Boucher MD PCP - General Internal Medicine 01/12/21 10/10/21 Ora Ronquillo MD [address] [place] [address] PCP - General Internal Medicine 10/11/21 Jl Mendez MD [address] [place] [address] Specialist Cardiovascular Disease 10/13/21 Jannette Boudreaux MD [address] [address] Surgeon Neurosurgery 04/07/22 Tenisha Mendieta PA-C [address] [address] Specialist Neurosurgery 04/07/22 Julio Monk PA-C [address] [address] Specialist Neurosurgery 04/07/22 Luis Armando Eller MD [address] [address] Specialist ORTHOPEDIC SURGERY 10/01/23 Jayesh Pineda MD 305 [place] [address] Specialist Endocrinology 10/01/23 Kelsi Tejada MD [address] [place] [address] Specialist Allergy & Immunology 10/01/23 Pretty Le MD 175 [facility] [address] [place] [address] Specialist Pulmonology 10/01/23 Vesta Michael PA-C 300 [facility] 210 [place] [address] Specialist Vascular Surgery 10/01/23 [facility] 46 [place] [address] Specialist Optometry 10/01/23 documented as of this encounter
--- OUTSIDE RECORDS SUMMARY | 2024-05-13 12:15 | XMS_ITS | Encounter Summary ---
Author Organization [facility] Address [address] [place] [address] Care Team Providers Care Publications Sales Representative Name Role Phone Ora Sweeney MD Primary Care Prov ider Encounter Details Date Type Department Care Team (Latest Contact Info) Description 04/25/2024 9:53 AM EST - 04/25/2024 11:59 PM EST Hospital Encounter XRAY - [place] [address] [place] [address] SOB (shortness of breath) Discharge Disposition: Home or Self Care Social History Tobacco Use Types Packs/Day Years [...] your loved ones. For example, child care sitter or elderly care for an older adult? [...] on file documented as of this encounter Medications at Time of Discharge acetaminophen (TYLENOL 8 HOUR) 650 mg 8 hr tablet Take 1 Tablet by mouth 3 times daily as needed for Pain (mild pain). 03/06/2023 albuterol 2.5 mg /3 mL (0.083 %) nebulizer solution Take 1 Vial by nebulization 3 times daily for 180 days. 06/10/2020 albuterol HFA (PROAIR HFA ; PROVENTIL HFA ; VENTOLIN HFA) 90 mcg/actuation inhaler Inhale 2 Puffs into the lungs every 6 hours as needed for Cough, Wheezing or Shortness of Breath for up to 363 days. 09/19/2023 07/08/202 5 albuterol HFA (Ventolin HFA) 90 mcg/actuation inhaler Inhale 2 Puffs into the lungs every 6 hours as needed for Cough or Wheezing. 08/28/2023 amLODIPine (NORVASC) 10 mg tablet TAKE 1 TABLET BY MOUTH EVERY DAY 90 tablet 1 02/13/2024 ammonium lactate (LAC-HYDRIN) 12 % lotion Apply to soles of feet daily. At night wear socks to bed 11/14/2023 aspirin 325 mg tablet Take 1 tablet (325 mg total) by mouth 1 (one) time each day. atorvastatin (LIPITOR) 20 mg tablet TAKE 1 TABLET BY MOUTH EVERY DAY 90 tablet 1 01/31/2024 azelastine HCl (ASTELIN NASL) 2 Sprays by Nasal route 2 times daily. benzonatate (TESSALON) 100 mg capsule Take 1 capsule (100 mg total) by mouth 3 (three) times a day if needed for cough. Do not crush or chew. 42 capsule 04/25/2024 betamethasone, augmented, (DIPROLENE-AF) 0.05 % cream APPLY TO AFFECTED AREAS IN THIN LAYER TWICE A DAY UNTIL RESOLVED. 05/09/2023 blood sugar diagnostic (FreeStyle Lite Strips) test strip Use to test blood sugars once daily in the morning, before breakfast. 11/27/2022 blood-glucose meter misc Use to test blood sugars once daily in the morning, before breakfast. 03/03/2021 cholecalciferol (VITAMIN D-3) 125 mcg (5,000 unit) capsule Take 1 capsule (5,000 Units total) by mouth 1 (one) time each day. 01/01/2024 cloNIDine (CATAPRES) 0.1 mg tablet TAKE 1/2-1 TABLET BY MOUTH TWICE A DAY NEEDED FOR ANXIETY- NEEDED AND TOLERATED 11/03/2022 docusate sodium (COLACE) 100 mg capsule Take 1 capsule (100 mg total) by mouth 2 (two) times a day. 01/01/2024 EPINEPHrine (EpiPen 2-Nehemiah) 0.3 mg/0.3 mL injection Inject 1 Device as directed as needed (anaphylaxis). Use as directed 07/12/2022 fexofenadine (CRISTINA) 180 mg tablet Take 1 tablet by mouth daily. 11/16/2020 fluticasone-umecl idinium-vilantero l (Trelegy Ellipta) 100-62.5-25 mcg inhaler Inhale 1 Puff into the lungs daily for 363 days. 09/19/2023 FREESTYLE LANCETS [facility] Use to test blood sugars once daily in the morning, before breakfast. 07/04/2022 ibuprofen (ADVIL,MOTRIN) 800 mg tablet 12/06/2023 ipratropium-albut Sandi (DUONEB) 0.5-2.5 mg/3 mL nebulizer solutionIndicatio ns:Asthma-chronic obstructive pulmonary disease overlap syndrome (CMS/HCC) Take 3 mL by nebulization 4 (four) times a day if needed for wheezing or shortness of breath. 360 mL 3 04/25/2024 ketoconazole (NIZORAL) 2 % cream Apply 1 Dose topically 2 times daily for 30 days. 07/23/2023 ketotifen (ZADITOR) 0.025 % ophthalmic solution ketotifen 0.025 % (0.035 %) eye drops lidocaine (LIDODERM) 5 % patch Place 1 Patch onto the skin every 24 hours for 28 days. Apply for no more than 12 hours in any 24 hour period. B02.29 10/11/2021 losartan (COZAAR) 100 mg tablet TAKE 1 TABLET BY MOUTH EVERY DAY 90 tablet 03/14/2024 montelukast (SINGULAIR) 10 mg tablet Take 1 Tablet by mouth at bedtime. 09/26/2023 Nucala 100 mg/mL auto-injector 07/25/2023 onabotulinumtoxin A (Botox) 200 unit injection predniSONE (DELTASONE) 20 mg tablet Take 60 mg PO daily for 3 days, then take 40 mg PO daily for 3 days, then 20 mg PO daily for 3 days, then stop 18 tablet 04/25/2024 senna (SENOKOT) 8.6 mg tablet Take 1 Tablet by mouth at bedtime. 10/17/2023 sertraline (ZOLOFT) 100 mg tablet TAKE 1 TABLET BY MOUTH EVERY DAY IN THE MORNING 08/13/2022 Stool Softener-Laxative 8.6-50 mg per tablet 12/06/2023 SUMAtriptan (IMITREX) 50 mg tablet TAKE 1 TO 2 TABLETS FOR MIGRAINE SYMPTOMS AND MAY REPEAT ONCE 2 HOURS LATER IF NEEDED 12/22/2021 tezepelumab-ekko (Tezspire) 210 mg/1.91 mL (110 mg/mL) injection Inject 210 mg into the skin every 30 days. traZODone (DESYREL) 100 mg tablet TAKE 1 TABLET EVERY NIGHT AT BEDTIME NEEDED CAN TAKE 1/2 TO ONE TABLET AT NIGHT TO HELP SLEEP 08/31/2023 triamcinolone (NASACORT) 55 mcg nasal inhaler INSTILL 1 TO 2 SPRAYS INTO EACH NOSTRIL ONCE DAILY. 11/19/2023 Trulicity 1.5 mg/0.5 mL pen injector injection Inject 0.5 mL (1.5 mg total) under the skin. 01/10/2024 UNABLE TO FIND Inhale into the lungs. [facility]-supplies only venlafaxine XR (EFFEXOR-XR) 37.5 mg 24 hr capsule 01/21/2024 trimethoprim-poly myxin b (POLYTRIM) ophthalmic solution Administer 1 drop into both eyes 4 (four) times a day for 7 days. 10 mL 04/25/2024 famotidine (PEPCID) 20 mg tablet Take 1 tablet (20 mg total) by mouth 2 (two) times a day if needed for heartburn. 90 tablet 1 01/23/2024 levothyroxine (SYNTHROID, LEVOTHROID) 137 mcg tabletIndications :Atrophy of thyroid (acquired) TAKE 1 TABLET BY MOUTH EVERY DAY 45 tablet 1 02/14/2024 5 documented as of this encounter Discharge Disposition Disposition Code Departure Means Destination Home or Self Care documented in this encounter Plan of Treatment Upcoming Encounters Date Type Department Care Team (Late st Contact Info) Description 05/28/2024 9:45 AM EDT Office Visit Adult Medicine [address] [phone] Ora Sweeney MD 4 [place] [address] 06/04/2024 10:30 AM EDT Consult Bariatric Surgery - [address] [place] [phone] Lita Verde PA [address] [address] 06/04/2024 11:45 AM EDT Office Visit Orthopedic Surgery [facility] [address] [phone] Luis Armando Eller MD [address] [address] 06/05/2024 9:45 AM EDT Office Visit Orthopedic Surgery [facility] [address] [phone] Duke Dunn, DPJohan [address] [address] 06/06/2024 2:30 PM EDT Office Visit Obstetrics and Gynecology - [address] [phone] Stacie Martinez, [facility] [address] [place] [address] 06/30/2024 10:30 AM EDT Office Visit Orthopedic Surgery [facility] [address] [phone] Luis Armando Eller MD [address] [address] 07/02/2024 9:30 AM EDT Office Visit Orthopedic Surgery [facility] [address] [phone] Lorie Moore NP [address] [address] 07/09/2024 9:30 AM EDT Office Visit Endocrinology [address] [phone] Jayesh Pineda MD [address] [place] [address] 09/22/2024 8:45 AM EDT Office Visit Pulmonolgy - [place] 175 [facility] [address] [place] [phone] Pretty Le MD 175 [facility] 200 [place] [address] documented as of this encounter Procedures Procedure Name Priority Date/Time Associated Diagnosis Comments XR CHEST 2 VIEWS Routine 04/25/2024 10:1 0 AM EST SOB (shortness of breath) documented in this encounter Results * XR Chest 2 Views (04/25/2024 10:10 AM EST) Anatomical Region Laterality Modality Body Radiographic Ivy ging 04/25/2024 1:15 PM EST Impressions 04/25/2024 1:15 PM EST No acute cardiopulmonary process. -------- FINAL REPORT -------- Dictated By: Malathi Pak Dictated Date: 04/25/2024 13:15 ET Assigned Physician: Malathi Pak Reviewed and Electronically Signed By: Malathi Pak Signed Date: 04/25/2024 13:15 ET Workstation ID: [id number] Transcribed By: Self Edit Transcribed Date: 04/25/2024 [...] Signed Date: 04/25/2024 13:15 ET Workstation ID: [id number] Transcribed By: Self Edit Transcribed Date: 04/25/2024 13:15 ET us Zeina Reece MD IMG XR PROCEDURES Final Res ult documented in this encounter Visit Diagnoses Diagnosis SOB (shortness of breath) Shortness of breath documented in this encounter Additional Health Concerns Infection Onset Date Last Indicated Resolved Time Respiratory Rule-Out 04/25/2024 04/25/2024 025 4:13 PM EST COVID-19 Rule-Out 04/25/2024 04/25/2024 04/25/2024 4:13 PM EST documented as of this encounter Care Teams Publications Sales Representative Relationship Specialty Start Date End Date Ora Sweeney MD [address] [place] [address] PCP - General Internal Medicine 01/09/24 documented as of this encounter
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
--- OUTSIDE RECORDS SUMMARY | 2024-05-13 12:16 | XMS_ITS | Encounter Summary ---
Author Organization [facility] Address [address] [place] [address] Care Team Providers Care Account Development Manager Name Role Phone Ora Ronquillo MD Primary Care Prov ider Jl Mendez MD Unavailable [phone] Jannette Boudreaux MD Unavailable [phone] Tenisha MendietaC Unavailable Julio Monk-C Unavailable [phone] Luis Armando Eller MD Unavailable [phone] Jayesh Pineda MD Unavailable Kelsi Tejada MD Unavailable Unavailable Pretty Le MD Unavailable Vesta Michael PA-C Unavailable [facility] Unavailable [phone] Reason for Visit * Reason Onset Date Comments Surgery (Schedule) 11/22/2023 Encounter Details Date Type Department Care Team Description 11/22/2023 Telephone [facility] Medical [facility] 175 [facility] [address] [place] [address] Luis Armando Eller MD 175 [facility] [address] [place] [address] [id number] Surgery (Schedule) Social History Tobacco Use Types Packs/Day Years Used Date Smoking Tobacco: Never Smokeless Tobacco: Never Alcohol Use Standard Drinks/Week Comments No 0 (1 standard drink = 0.6 oz pur e alcohol) Education Answer Date Recorded What is the highest level of school you have completed or the highest degree you have received? 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, VIDEOGAME DESIGNER, CHANDRAKANT) 06/14/2020 Sex Assigned at Date [...] on filedocumented in this encounter Care Teams Account Development Manager Relationship Specialty Start Date End Date Ora Ronquillo MD 4 [place] [address] PCP - General Internal Medicine 10/11/21 Jl Mendez MD [address] [place] [address] Dr Mont[address] [place] [address] Specialist Cardiovascular Disease 10/13/21 Jannette Boudreaux MD 175 [facility] [address] [place] [address] Surgeon Neurosurgery 04/07/22 Tenisha Mendieta PA-C 175 [facility] [address] [place] [address] Specialist Neurosurgery 04/07/22 Julio Monk PA-C 175 [facility] 300 [place] [address] Specialist Neurosurgery 04/07/22 Luis Armando Eller MD 175 [facility] 250 [place] [address] Specialist ORTHOPEDIC SURGERY 10/01/23 Jayesh Pineda MD 305 [place] [address] Specialist Endocrinology 10/01/23 Kelsi Tejada MD 305 [place] [address] Specialist Allergy & Immunology 10/01/23 Pretty Le MD 175 [facility] 200 [place] [address] Specialist Pulmonology 10/01/23 Vesta Michael PA-C 300 [facility] 210 [place] [address] Specialist Vascular Surgery 10/01/23 [facility] 46 [place] [address] Specialist Optometry 10/01/23 documented as of this encounter
--- OUTSIDE RECORDS SUMMARY | 2024-05-13 12:16 | XMS_ITS | Encounter Summary ---
Author Organization [facility] Address [address] [place] [address] Care Team Providers Care Research Professional Name Role Phone Ora Ronquillo MD Primary Care Prov ider Jl Mendez MD Unavailable [phone] Jannette Boudreaux MD Unavailable [phone] Tenisha Mendieta-C Unavailable Julio Monk PA-C Unavailable Luis Armando Eller MD Unavailable [phone] Jayesh Pineda MD Unavailable Kelsi Tejada MD Unavailable Unavailable Pretty Le MD Unavailable Vesta Michael PA-C Unavailable [facility] Unavailable Encounter Details Date Type Department Care Team Description 11/30/2023 Telephone [facility] Medical [facility] 175 [facility] [address] [place] [address] Lorie Moore, DONN 1515 [facility] [place] [address] Social History Tobacco Use Types Packs/Day Years Used Date Smoking Tobacco: Never Smokeless Tobacco: Never Alcohol Use Standard Drinks/Week Comments No 0 (1 standard drink = 0.6 oz pur e alcohol) Education Answer Date Recorded What is the highest level of school you have completed or the highest degree you have received? 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, BINDING MACHINE OPERATOR, CHANDRAKANT) 06/14/2020 Sex Assigned at [...] filedocumented in this encounter Care Teams Research Professional Relationship Specialty Start Date End Date Ora Ronquillo MD 444 [place] [address] PCP - General Internal Medicine 10/11/21 Jl Mendez MD [address] [place] [address] Dr Mont[address] [place] [address] Specialist Cardiovascular Disease 10/13/21 Jannette Boudreaux MD [address] [address] Surgeon Neurosurgery 04/07/22 Tenisha Mendieta PA-C [address] [address] Specialist Neurosurgery 04/07/22 Julio Monk PA-C 175 [facility] [address] [place] [address] Specialist Neurosurgery 04/07/22 Luis Armando Eller MD [address] [address] Specialist ORTHOPEDIC SURGERY 10/01/23 Jayesh Pineda MD 305 [place] [address] Specialist Endocrinology 10/01/23 Kelsi Tejada MD 305 [place] [address] Specialist Allergy & Immunology 10/01/23 Pretty Le MD 175 [facility] [address] [place] [address] Specialist Pulmonology 10/01/23 Vesta Michael PA-C 300 [facility] 210 [place] [address] Specialist Vascular Surgery 10/01/23 [facility] 46 [place] [address] Specialist Optometry 10/01/23 documented as of this encounter
--- OUTSIDE RECORDS SUMMARY | 2024-05-13 12:16 | XMS_ITS | Encounter Summary ---
Author Organization [facility] Address [address] [place] [address] Care Team Providers Care Orthopedic Shoe Fitter Name Role Phone Ora Ronquillo MD Primary Care Prov ider Jl Mendez MD Unavailable Jannette Boudreaux MD Unavailable [phone] Tenisha MendietaC Unavailable Julio Monk-C Unavailable [phone] Luis Armando Eller MD Unavailable [phone] Jayesh Pineda MD Unavailable Kelsi Tejada MD Unavailable Unavailable Pretty Le MD Unavailable Vesta Michael PA-C Unavailable [facility] Unavailable Encounter Details Date Type Department Care Team Description 12/10/2023 SC[facility] Medical [facility] 175 [facility] [address] [place] [address] Luis Armando Eller MD 175 [facility] [address] [place], [place] [phone] Social History Tobacco Use Types Packs/Day Years Used Date Smoking Tobacco: Never Smokeless Tobacco: Never Alcohol Use Standard Drinks/Week Comments No 0 (1 standard drink = 0.6 oz pur e alcohol) Education Answer Date Recorded What is the highest level of school you have completed or the highest degree you have received? 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, COMMERCIAL KITCHEN SERVICE TECHNICIAN, CHANDRAKANT) 06/14/2020 Sex Assigned at Date Recorded Female 08/03/2020 10:16 PM EDT Job Start Date Occupation Industry Not on file Not on file Not on file documented as of this encounter Plan of Treatment Not on file documented as of this encounter Visit Diagnoses Not on filedocumented in this encounter Care Teams Orthopedic Shoe Fitter Relationship Specialty Start Date End Date Ora Ronquillo MD 444 [place] [address] PCP - General Internal Medicine 10/11/21 Jl Mendez MD [address] [place] [address] Dr Mont[address] [place] [address] Specialist Cardiovascular Disease 10/13/21 Jannette Boudreaux MD [address] [address] Surgeon Neurosurgery 04/07/22 Tenisha Mendieta PA-C [address] [address] Specialist Neurosurgery 04/07/22 Julio Monk PA-C [address] [address] Specialist Neurosurgery 04/07/22 Luis Armando Eller MD [address] [address] Specialist ORTHOPEDIC SURGERY 10/01/23 Jayesh Pineda MD 305 [place] [address] Specialist Endocrinology 10/01/23 Kelsi Tejada MD 305 [place] [address] Specialist Allergy & Immunology 10/01/23 Pretty Le MD 175 [facility] 200 [place] [address] Specialist Pulmonology 10/01/23 Vesta Michael PA-C 300 [facility] 210 [place] [address] Specialist Vascular Surgery 10/01/23 [facility] 46 [place] [address] Specialist Optometry 10/01/23 documented as of this encounter
--- OUTSIDE RECORDS SUMMARY | 2024-05-13 12:16 | XMS_ITS | Encounter Summary ---
Author Organization [facility] Address [address] [place] [address] Care Team Providers Care Obstetrics Gynecology Md Name Role Phone Ora Ronquillo MD Primary Care Prov ider Jl Mendez MD Unavailable [phone] Jannette Boudreaux MD Unavailable [phone] Tenisha MendietaC Unavailable [phone] Julio Monk-C Unavailable [phone] Luis Armando Eller MD Unavailable [phone] Jayesh Pineda MD Unavailable Kelsi Tejada MD Unavailable Unavailable Pretty Le MD Unavailable Vesta Michael PA-C Unavailable [phone] [facility] Unavailable Encounter Details Date Type Department Care Team Description 12/06/2023 SCAN [facility] Medical [facility] - [facility] 175 [facility] [address] [place] [address] Luis Armando Eller MD 175 [facility] [address] [place], [place] [phone] Social History Tobacco Use Types Packs/Day Years Used Date Smoking Tobacco: Never Smokeless Tobacco: Never Alcohol Use Standard Drinks/Week Comments No 0 (1 standard drink = 0.6 oz pur e alcohol) Education Answer Date Recorded What is the highest level of school you have completed or the highest degree you have received? 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, SUPERVISOR FIBER LOCKING, CHANDRAKANT) 06/14/2020 Sex Assigned at Date Recorded Female 08/03/2020 10:16 PM EDT Job Start Date Occupation Industry Not on file Not on file Not on file documented as of this encounter Plan of Treatment Not on file documented as of this encounter Visit Diagnoses Not on filedocumented in this encounter Care Teams Obstetrics Gynecology Md Relationship Specialty Start Date End Date Ora Ronquillo MD 444 [place] [address] PCP - General Internal Medicine 10/11/21 Jl Mendez MD [address] [place] [address] Dr [address] [place] [address] Specialist Cardiovascular Disease 10/13/21 Jannette Boudreaux MD [address] [address] Surgeon Neurosurgery 04/07/22 Tenisha Mendieta PA-C [address] [address] Specialist Neurosurgery 04/07/22 Julio Monk PA-C [address] [address] Specialist Neurosurgery 04/07/22 Luis Armando Eller MD [address] [address] Specialist ORTHOPEDIC SURGERY 10/01/23 Jayesh Pineda MD 305 [place] [address] Specialist Endocrinology 10/01/23 Kelsi Tejada MD 305 [place] [address] Specialist Allergy & Immunology 10/01/23 Pretty Le MD 175 [facility] 200 [place] [address] Specialist Pulmonology 10/01/23 Vesta Michael PA-C 300 [facility] 210 [place] [address] Specialist Vascular Surgery 10/01/23 [facility] 46 [place] [address] Specialist Optometry 10/01/23 documented as of this encounter
--- OUTSIDE RECORDS SUMMARY | 2024-05-13 12:16 | XMS_ITS | Encounter Summary ---
Author Organization [facility] Address [address] [place] [address] Care Team Providers Care Receivable Clerk Name Role Phone Ora Ronquillo MD Primary Care Prov ider Jl Mendez MD Unavailable Jannette Boudreaux MD Unavailable [phone] Tenisha Mendieta PA-C Unavailable [phone] Julio Mokn PA-C Unavailable Luis Armando Eller MD Unavailable [phone] Jayesh Pineda MD Unavailable Kelsi Tejada MD Unavailable Unavailable Pretty Le MD Unavailable Vesta Michael PA-C Unavailable [facility] Unavailable Reason for Visit * Reason Onset Date Comments Note, Other 03/23/2022 Med Refill Encounter Details Date Type Department Care Team Description 03/23/2022 Refill Pulmonology - [place] 175 [facility] [address] [place] [address] Michael Saldana MD Note, Other [...] 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, AUTOMOBILE RELOCATION ENGINEER, CHANDRAKANT) 06/14/2020 Sex Assigned at Date [...] N/A Patients current insurance carrier is: Payor: [facility] FFS / Plan: [facility] / Product Type: MEDICAID RISK documented in this encounter Plan of Treatment Not on file documented as of this encounter Visit Diagnoses Diagnosis Moderate persistent asthma, unspecified whether complicated documented in this encounter Care Teams Receivable Clerk Relationship Specialty Start Date End Date Ora Ronquillo MD 444 [place] [address] PCP - General Internal Medicine 10/11/21 Jl Mendez MD [address] [place] [address] Dr Mont[address] [place] [address] Specialist Cardiovascular Disease 10/13/21 Jannette Boudreaux MD 175 [facility] 300 [place] [address] Surgeon Neurosurgery 04/07/22 Tenisha Mendieta PA-C [address] [address] Specialist Neurosurgery 04/07/22 Julio Monk PA-C 175 [facility] 300 [place] [address] Specialist Neurosurgery 04/07/22 Luis Armando Eller MD [address] [address] Specialist ORTHOPEDIC SURGERY 10/01/23 Jayesh Pineda MD 305 [place] [address] Specialist Endocrinology 10/01/23 Kelsi Tejada MD 305 [place] [address] Specialist Allergy & Immunology 10/01/23 Pretty Le MD 175 [facility] 200 [place] [address] Specialist Pulmonology 10/01/23 Vesta Michael PA-C 300 [facility] 210 [place] [address] Specialist Vascular Surgery 10/01/23 [facility] 46 [place], [place] [phone] Specialist Optometry 10/01/23 documented as of this encounter
--- OUTSIDE RECORDS SUMMARY | 2024-05-13 12:16 | XMS_ITS | Encounter Summary ---
Author Organization [facility] Address [address] [place] [address] Care Team Providers Care Gear Grinder Name Role Phone Ora Ronquillo MD Primary Care Prov ider Jl Mendez MD Unavailable [phone] Jannette Boudreaux MD Unavailable [phone] Tenisha Mendieta-C Unavailable Julio oMnk PA-C Unavailable Luis Armando Eller MD Unavailable [phone] Jayesh Pineda MD Unavailable Kelsi Tejada MD Unavailable Unavailable Pretty Le MD Unavailable Vesta Michael PA-C Unavailable [phone] [facility] Unavailable Encounter Details Date Type Department Care Team Description 11/14/2023 SCAN [facility] Medical [facility] 175 [facility] [address] [place] [phone] Lorie Moore, DONN 1515 [facility] [place] [address] Social History Tobacco Use Types Packs/Day Years Used Date Smoking Tobacco: Never Smokeless Tobacco: Never Alcohol Use Standard Drinks/Week Comments No 0 (1 standard drink = 0.6 oz pur e alcohol) Education Answer Date Recorded What is the highest level of school you have completed or the highest degree you have received? 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, REFRIGERATION ENGINEER, CHANDRAKANT) 06/14/2020 Sex Assigned at Date Recorded Female 08/03/2020 10:16 PM EDT Job Start Date Occupation Industry Not on file Not on file Not on file documented as of this encounter Plan of Treatment Not on file documented as of this encounter Visit Diagnoses Not on filedocumented in this encounter Care Teams Gear Grinder Relationship Specialty Start Date End Date Ora Ronquillo MD 444 [place] [address] PCP - General Internal Medicine 10/11/21 Jl Mendez MD [address] [place] [address] Dr Mont[address] [place] [address] Specialist Cardiovascular Disease 10/13/21 Jannette Boudreaux MD [address] [address] Surgeon Neurosurgery 04/07/22 Tenisha Mendieta PA-C [address] [address] Specialist Neurosurgery 04/07/22 Julio Monk PA-C 175 [facility] 300 [place] [address] Specialist Neurosurgery 04/07/22 Luis Armando Eller MD [address] [address] Specialist ORTHOPEDIC SURGERY 10/01/23 Jayesh Pineda MD 305 [place] [address] Specialist Endocrinology 10/01/23 Kelsi Tejada MD 305 [place] [address] Specialist Allergy & Immunology 10/01/23 Pretty Le MD 175 [facility] 200 [place] [address] Specialist Pulmonology 10/01/23 Vesta Michael PA-C 300 [facility] 210 [place] [address] Specialist Vascular Surgery 10/01/23 [facility] 46 [place] [address] Specialist Optometry 10/01/23 documented as of this encounter
--- OUTSIDE RECORDS SUMMARY | 2024-05-13 12:16 | XMS_ITS | Encounter Summary ---
Author Organization [facility] Address [address] [place] [address] Care Team Providers Care Vocal Music Instructor Name Role Phone Ora Ronquillo MD Primary Care Prov ider Jl Mendez MD Unavailable Jannette Boudreaux MD Unavailable [phone] Tenisha Mendieta-C Unavailable Julio Monk PA-C Unavailable [phone] Luis Armando Eller MD Unavailable [phone] Jayesh Pineda MD Unavailable Kelsi Tejada MD Unavailable Unavailable Pretty Le MD Unavailable Vesta Michael PA-C Unavailable [phone] [facility] Unavailable [phone] Encounter Details Date Type Department Care Team Description 11/20/2023 SCAN [facility] Medical [facility] - Orthopedic Care Center 175 [facility] [address] [place] [address] Lorie Moore, DONN 1515 [facility] [place] [address] Social History Tobacco Use Types Packs/Day Years Used Date Smoking Tobacco: Never Smokeless Tobacco: Never Alcohol Use Standard Drinks/Week Comments No 0 (1 standard drink = 0.6 oz pur e alcohol) Education Answer Date Recorded What is the highest level of school you have completed or the highest degree you have received? 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, HEALTH DATA ANALYST, CHANDRAKANT) 06/14/2020 Sex Assigned at Date Recorded Female 08/03/2020 10:16 PM EDT Job Start Date Occupation Industry Not on file Not on file Not on file documented as of this encounter Plan of Treatment Not on file documented as of this encounter Visit Diagnoses Not on filedocumented in this encounter Care Teams Vocal Music Instructor Relationship Specialty Start Date End Date Ora Ronquillo MD 444 [place] [address] PCP - General Internal Medicine 10/11/21 Jl Mendez MD [address] [place] [address] Dr Mont[address] [place] [address] Specialist Cardiovascular Disease 10/13/21 Jannette Boudreaux MD [address] [address] Surgeon Neurosurgery 04/07/22 Tenisha Mendieta PA-C [address] [address] Specialist Neurosurgery 04/07/22 Julio Monk PA-C 175 [facility] 300 [place] [address] Specialist Neurosurgery 04/07/22 Luis Armando Eller MD [address] [address] Specialist ORTHOPEDIC SURGERY 10/01/23 Jayesh Pineda MD 305 [place] [address] Specialist Endocrinology 10/01/23 Kelsi Tejada MD 305 [place] [address] Specialist Allergy & Immunology 10/01/23 Pretty Le MD 175 [facility] 200 [place] [address] Specialist Pulmonology 10/01/23 Vesta Michael PA-C 300 [facility] 210 [place] [address] Specialist Vascular Surgery 10/01/23 [facility] 46 [place] [address] Specialist Optometry 10/01/23 documented as of this encounter
--- OUTSIDE RECORDS SUMMARY | 2024-05-13 12:16 | XMS_ITS | Encounter Summary ---
Author Organization [facility] Address [address] [place] [address] Care Team Providers Care Slasher Machine Operator Name Role Phone Teressa Solis DO Primary Care Pro vider Unavailable Mina Pretty DO Primary Care Provider Shweta Cronin MD Primary Care Provider Ora Diaz MD Primary Care Prov ider Jl Mendez MD Unavailable Jannette Boudreaux MD Unavailable [phone] Tenisha Mendieta PA-C Unavailable Julio Monk PA-C Unavailable Luis Armando Eller MD Unavailable [phone] Jayesh Pineda MD Unavailable Kelsi Tejada MD Unavailable Unavailable Pretty Le MD Unavailable Vesta Michael PA-C Unavailable [facility] Unavailable [phone] Reason for Visit * Reason Onset Date Comments Prior Authorization 04/14/2020 Encounter Details Date Type Department Care Team Description 04/14/2020 Telephone Gastroenterology [facility] [address] [facility] [address] [place] [address] Luis Armando Staton MD Prior [...] Miscellaneous Notes * Telephone Encounter - Naomy Menodza M.A. - 08/31/2020 3:31 PM EDT Approved [...] My Meds request: Yes -- [place]ough Code [id number] Name of Medication pantoprazole Dose of Medication 40MG DR What is the RX # from the faxed refill? How does patient take this med? What Pharmacy did the fax come from: [facility] fax #: [phone] [employer] Information from fax: What Prescription Plan does the patient have? BIN/PCN if applicable: Cardholder ID: [id number] Person Code: Relationship Code: Help desk phone: [phone] documented in this encounter Plan of Treatment Not on file documented as of this encounter Visit Diagnoses Not on filedocumented in this encounter Care Teams Slasher Machine Operator Relationship Specialty Start Date End Date Teressa Solis DO PCP - General Internal Medicine 12/18/13 09/15/20 Mina Pretty DO PCP - General Internal Medicine 09/16/20 Shweta Boucher MD PCP - General Internal Medicine 01/12/21 10/10/21 Ora Ronquillo MD [address] [place] [address] PCP - General Internal Medicine 10/11/21 Jl Mendez MD [address] [place] [address] Dr Montiel [address] [place] [address] Specialist Cardiovascular Disease 10/13/21 Jannette Boudreaux MD [address] [address] Surgeon Neurosurgery 04/07/22 Tenisha Mendieta PA-C [address] [address] Specialist Neurosurgery 04/07/22 Julio Monk PA-C [address] [address] Specialist Neurosurgery 04/07/22 Luis Armando Eller MD [address] [address] Specialist ORTHOPEDIC SURGERY 10/01/23 Jayesh Pineda MD [address] [place] [address] Specialist Endocrinology 10/01/23 Kelsi Tejada MD [address] [place] [address] Specialist Allergy & Immunology 10/01/23 Pretty Le MD 175 [facility] [address] [place] [address] Specialist Pulmonology 10/01/23 Vesta Michael PA-C [address] [facility] [address] [place] [address] Specialist Vascular Surgery 10/01/23 [facility] [address] [place], [place] [id number] Specialist Optometry 10/01/23 documented as of this encounter
--- OUTSIDE RECORDS SUMMARY | 2024-05-13 12:16 | XMS_ITS | Clinical Summary ---
Author Organization [facility] Address [address] [place] [address] Care Team Providers Care Maintenance Coordinator Name Role Phone Ora Ronquillo MD Primary Care Prov ider Jl Mendez MD Unavailable Jannette Boudreaux MD Unavailable [phone] Tenisha Mendieta PA-C Unavailable Julio Monk PA-C Unavailable Luis Armando Eller MD Unavailable [phone] Jayesh Pineda MD Unavailable Kelsi Tejada MD Unavailable Unavailable Pretty Le MD Unavailable Vesta Michael PA-C Unavailable [facility] Unavailable [phone] Allergies Active Allergy Reactions Severity Noted Date Comments Cats Runny Nose/Rhinitis 12/20/2016 Cefadroxil Swelling/Edema 11/21/2021 Chocolate 01/06/2014 Sneezing and allergies Chocolate Flavor 05/03/2023 Other reaction(s): Not available Dog Dander 04/10/2016 Cefadroxil Monohydrate Swelling/Edema 3 Dust Mite 04/10/2016 Latex 06/14/2020 Methylprednisolone Swelling/Edema 07/02/2012 Mold 04/10/2016 Nuts Swelling/Edema 03/18/2013 Almunds Other (No Interaction Warnings) Rash/Dermatitis,Itc noreen/Pruritus,Swell ing/Edema High 10/30/2016 roaches Oxycodone 07/11/2017 Mood change Penicillins Swelling/Edema 07/02/2012 Pollen Extract 05/03/2023 Other reaction(s): Not available Rabbit Protein 04/10/2016 rabbits Triphasil, 05/03/2023 Other reaction(s): Not available Medications Medication Sig Dispensed Refills Start Date End Date Status CPAP Historical (HISTORICAL CPAP) Inhale into the lungs. [employer]-supplies only 0 Active albuterol (PROVENTIL) (2.5 MG/3ML) 0.083% nebulizer solutionIndications:M oderate persistent asthma without complication,Gastroes ophageal reflux disease without esophagitis,Obstructi ve sleep apnea,Need for prophylactic vaccination against Streptococcus pneumoniae (pneumococcus) Take 1 Vial by nebulization 3 times daily for 180 days. 270 mL 5 06/10/2020 Active fexofenadine (Kiesha Allergy) 180 MG tablet Take 1 tablet by mouth daily. 30 tablet 12 11/16/2020 Active Blood Glucose Monitoring Suppl ([facility] [employer] Speed Lite) w/Device Kit Use to test blood sugars once daily in the morning, before breakfast. 1 Kit 0 03/03/2021 Active lidocaine (LIDODERM) 5 % Place 1 Patch onto the skin every 24 hours for 28 days. Apply for no more than 12 hours in any 24 hour period. B02.29 28 Patch 0 10/11/2021 Active sumatriptan (IMITREX) 50 MG tablet TAKE 1 TO 2 TABLETS FOR MIGRAINE SYMPTOMS AND MAY REPEAT ONCE 2 HOURS LATER IF NEEDED 12 Tablet 1 12/22/2021 Active OnabotulinumtoxinA (Botox) 200 units Recon Soln Botox 100 unit injection 0 Active ketotifen 0.025 % ophthalmic solution ketotifen 0.025 % (0.035 %) eye drops 0 Active FreeStyle Lancets Misc Use to test blood sugars once daily in the morning, before breakfast. 200 Each 3 07/04/2022 Active EPINEPHrine (EpiPen 2-Nehemiah) 0.3 MG/0.3ML Solution Auto-injectorIndicati ons:Moderate persistent asthma, unspecified whether complicated,Overlap syndrome (HCC),VIRGIE on CPAP,Allergic rhinitis due to pollen, unspecified seasonality,Gastroeso phageal reflux disease without esophagitis,PND (post-nasal drip),Hypothyroidism due to acquired atrophy of thyroid Inject 1 Device as directed as needed (anaphylaxis). Use as directed 2 Each 3 07/12/2022 Active sertraline (ZOLOFT) 100 MG tablet TAKE 1 TABLET BY MOUTH EVERY DAY IN THE MORNING 0 08/13/2022 Active Glucose Blood (FREESTYLE LITE) Strip Use to test blood sugars once daily in the morning, before breakfast. 200 Strip 3 11/27/2022 Active clonidine (CATAPRES) 0.1 MG tablet TAKE 1/2-1 TABLET BY MOUTH TWICE A DAY NEEDED FOR ANXIETY- NEEDED AND TOLERATED 0 11/03/2022 Active ammonium lactate (LAC-HYDRIN) 12 % lotion Apply to soles of feet daily. At night wear socks to bed 400 g 2 12/28/2022 Active acetaminophen (Tylenol 8 Hour) 650 MG CR tablet Take 1 Tablet by mouth 3 times daily as needed for Pain (mild pain). 90 Tablet 0 03/06/2023 Active atorvastatin (LIPITOR) 20 MG tablet TAKE 1 TABLET BY MOUTH EVERY DAY 90 Tablet 0 07/17/2023 Active ketoconazole (NIZORAL) 2 % cream Apply 1 Dose topically 2 times daily for 30 days. 30 g 0 07/23/2023 Active betamethasone dipropionate (DIPROLENE) 0.05 % cream APPLY TO AFFECTED AREAS IN THIN LAYER TWICE A DAY UNTIL RESOLVED. 0 05/09/2023 Active Tezepelumab-ekko 210 MG/1.91ML Solution Auto-injector Inject 210 mg into the skin every 30 days. 0 Active Azelastine HCl (ASTELIN NA) 2 Sprays by Nasal route 2 times daily. 0 Active Ventolin HFA 108 (90 Base) MCG/ACT Aero Soln Inhale 2 Puffs into the lungs every 6 hours as needed for Cough or Wheezing. 18 g 1 08/28/2023 Active ALBUTEROL SULFATE (Ventolin HFA) 108 (90 Base) MCG/ACT Aero SolnIndications:Moder ate persistent asthma, unspecified whether complicated,VIRGIE (obstructive sleep apnea) Inhale 2 Puffs into the lungs every 6 hours as needed for Cough, Wheezing or Shortness of Breath for up to 363 days. 3 g 3 09/19/2023 07/08/202 5 Active losartan (COZAAR) 100 MG tablet Take 1 Tablet by mouth daily. 90 Tablet 0 09/20/2023 Active montelukast (SINGULAIR) 10 MG tabletIndications:Mod erate persistent asthma, unspecified whether complicated Take 1 Tablet by mouth at bedtime. 90 Tablet 1 09/26/2023 Active trazodone (DESYREL) 100 MG tablet TAKE 1 TABLET EVERY NIGHT AT BEDTIME NEEDED CAN TAKE 1/2 TO ONE TABLET AT NIGHT TO HELP SLEEP 0 08/31/2023 Active Sennosides (Senna) 8.6 MG Tab Take 1 Tablet by mouth at bedtime. 90 Tablet 0 10/17/2023 Active ammonium lactate (LAC-HYDRIN) 12 % lotion Apply to soles of feet daily. At night wear socks to bed 400 g 2 11/14/2023 Active levothyroxine 125 MCG tabletIndications:Hyp othyroidism due to acquired atrophy of thyroid Take one tablet by mouth daily with an extra 1/2 tab once weekly. 106 Tablet 0 11/23/2023 Active aspirin 325 MG tablet Take 1 Tablet by mouth daily. 0 Active amlodipine (NORVASC) 10 MG tablet Take 1 Tablet by mouth daily. 30 Tablet 0 01/01/2024 Active docusate sodium (COLACE) 100 MG capsule Take 1 Capsule by mouth 2 times daily. 60 Capsule 0 01/01/2024 Active Cholecalciferol (Vitamin D3) 125 MCG (5000 UT) Cap Take 1 Capsule by mouth daily. 30 Capsule 0 01/01/2024 Active famotidine (PEPCID) 20 MG tablet Take 1 Tablet by mouth 2 times daily as needed for Heartburn. 60 Tablet 0 01/01/2024 Active Fluticasone-Umeclidin -Vilant (Trelegy Ellipta) 100-62.5-25 MCG/ACT AEROSOL POWDER,BREATH ACTIVATEDIndications: Moderate persistent asthma, unspecified whether complicated,VIRGIE (obstructive sleep apnea) Inhale 1 Puff into the lungs daily for 363 days. 3 Each 3 01/01/2024 Active Dulaglutide (Trulicity) 1.5 MG/0.5ML Solution Auto-injectorIndicati ons:Type 2 diabetes mellitus with other specified complication, without long-term current use of insulin (HCC) Inject 1.5 mg into the skin once a week. 2 mL 2 01/10/2024 Active Active Problems Problem Noted Date Cervical radiculopathy 04/10/2022 Last Assessment & Plan: Patient follows up [...] with any concerns or questions. Asthma-chronic obstructive pulmonary dis ease overlap syndrome 01/30/2022 Diabetes mellitus 01/30/2022 History of severe acute resp iratory syndrome coronavirus 2 (SARS-CoV-2) disease 01/30/2022 Seasonal allergic conjunctivitis 022 Palpitations 11/25/2021 Last Assessment & Plan: The patient has been experiencing episodes of palpitations. We will order a Holter monitor to evaluate for any underlying arrhythmias as a cause of her symptoms. Chest pain 11/21/2021 Last Assessment & Plan: The patient came [...] pharmacological nuclear stress test. HLD (hyperlipidemia) 11/21/2021 Mild concentric left ventricular hypertr ophy 08/23/2021 Overview: Seen on echo study from 08/2021 Pulmonary eosinophilia 07/14/2021 Hyperparathyroidism 03/09/2021 Diabetes mellitus type 2, controlled, wi thout complications 02/16/2021 Morbid obesity with BMI of 40.0-44.9, ad ult 06/14/2020 Anxiety and depression 06/14/2020 Overview: [facility] Asthma, moderate persistent 05/10/2020 Last Assessment & Plan: Patient with moderately severe asthma excellent control with Nucala Continue with Nucala, albuterol as needed and Singulair. Return to clinic in 1 year Multiple food allergies 11/05/2019 Vitamin D deficiency 04/17/2019 Knee pain 01/20/2018 Obstructive sleep apnea severe AHI 35 Overview: TREATED (JUN 2020) Last Assessment & Plan: Patient with 100% compliance of her CPAP Apneas are well suppressed and ESS score is less than 10 Patient meets DME requirements Supply letter has been sent to [facility] Return to clinic in 1 year Pilar cyst 09/07/2016 Colon polyps 02/06/2016 Overview: 01/31/16 - single small tubular adenoma, strong family hx-rpt colonoscopy in 3 yrs Gastroesophageal reflux disease without esophagitis 08/30/2015 Nonalcoholic fatty liver disease 016 Seasonal allergies 08/18/2013 Last Assessment & Plan: Currently due to her postnasal drip, I advised her to continue using the Flovent and I will renew the Singulair as well as the antihistamine. Family history of colonic polyps Family history of uterine cancer Mixed stress and urge urinary incontinen ce 08/23/2012 Hypertension Last Assessment & Plan: The patient has a history of arterial hypertension. The patient's blood pressure today was noted to be well controlled. We'll continue the current antihypertensive medication regimen. Hypothyroid Migraines Osteoarthritis Family history of colon cancer Overview: mother has colon cancer and ovarian cancer Pt with colonoscopy 2012 - hyperplastic polyp only Multiple thyroid nodules CTS (carpal tunnel syndrome) Last Assessment & Plan: Patient is 1 [...] should continue to heal. All questions answered. History of COVID-19 Fatty liver Resolved Problems Problem Noted Date Resolved Date Lab test negative for COVID-19 virus 05/20/2020 06/14/2020 History of colon polyps 12/22/2019 06/15/19 21 Heartburn 12/22/2019 06/14/2020 Allergic conjunctivitis, bilateral 11/05/2019 06/14/2020 Class 3 severe obesity due t o excess calories with serious comorbidity and body mass index (BMI) of 40.0 to 44.9 in adult 07/15/2019 06/14/2020 Moderate persistent asthma with acute exacerbati on 12/31/2018 06/14/2020 Perennial allergic rhinitis 12/31/2018 04/0 07/2020 Hypercalcemia 06/07/2018 12/16/2018 Allergic rhinitis due to pollen 03/06/2018 06/14/2020 PND (post-nasal drip) 03/06/2018 06/14/2020 Moderate persistent asthma with acute exacerbati on 03/06/2018 04/18/2018 Pre-diabetes 09/25/2017 02/16/2021 Obesity (BMI 30.0-34.9) 12/21/2016 08/08/19 Mild persistent asthma without complication 10/1002/26/2019 S/P left inguinal hernia repair 09/09/2015 06/14/2020 Abdominal pain, RUQ 12/28/2014 02/26/2019 Abnormal finding on imaging 12/28/2014 04/0 07/2020 Stress incontinence 08/23/2012 Sleep apnea 07/12/2017 Immunizations Name Administration Dates Next Due COVID-19 (Pfizer) Pt Reported 05/18/2021, 021,08/31/2020 Covid-19 Pfizer Omicron (Pt Reported)-Comirnaty 12/29/2022 Influenza (> 6 Months) 12/13/2015 Influenza Flu (PT Reported) 12/29/2022 Influenza Vaccine-preservati ve Free-quadrivalent 4 Years 01/18/2018 Influenza Vaccine-quadrivalent 4 Years Plus 12/10 Pneumoccoccal(Adult) Polysaccharide PPSV23 01/15,07/19/2017 Tdap 10/31/2022,08/13/2012 Family History Medical History Relation Name Comments CA Breast Aunt 1 maternal x 1 CA Ovarian Aunt 2 maternal x 6 6 maternal aunt s also with ov, uterine ca Glaucoma Brother x 2 CAD Father [place] age 68, HTN, Diabetes, cataract, glaucoma Emphysema Maternal Grandfather CA Ovarian Maternal Grandmother uterine cancer same age CA Ovarian Mother Cancer of the Colon Mother Diabetes Mother with neuropathy , OA, Uterine Cancer Mother Lymphoma Mother's side 1 1st cousin Cancer of the Lung Mother's side 2 1st cousin Cancer of the Lung Paternal Grandfather Colon Polyps Sister x 2 glaucoma, diabe luciano Relation [...] 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, THICKENER OPERATOR, CHANDRAKANT) 06/14/2020 Sex Assigned at Date Recorded Female 08/03/2020 10:16 PM EDT Job Start Date Occupation Industry Not on file Not on file Not on file Last Filed Vital Signs Vital Sign Reading Time Taken Comments Blood Pressure 134/76 01/10/2024 11:19 AM EDT Pulse 91 01/10/2024 11:19 AM EDT Temperature 36.3 ??C (97.3 ??F) 01/10/2024 11:19 AM E DT Respiratory Rate 13 12/17/2023 9:42 AM EDT Oxygen Saturation 96% 01/10/2024 11:19 AM EDT Inhaled Oxygen Concentration - - Weight 122.9 kg (271 lb) 12/19/2023 11:19 AM EDT Height 160 cm (5' 3 ) 01/10/2024 11:19 AM EDT Body Mass Index 48.01 12/19/2023 11:19 AM EDT Plan of Treatment Health Maintenance Due Date Last Done Comments SHINGLES VACCINE (1 of 2) 2008 DIABETES: ANNUAL EYE EXAM 07/04/20222021 (External Completion), 12/14/2017, 08/14/2017, Additional history exists BONE DENSITY SCREENING 09/06/2023 , 03/31/2021, 01/21/2018 Covid-19 Vaccine ( season) 2023 12/29/2022, 05/18/2021, 09/21/2020, Additional history exists MAMMOGRAM 12/12/2023 12/11/2022, 11/11, 11/26/2020, Additional history exists PNEUMOCOCCAL VACCINE (2 - PCV) 01/16/2024 01/15/2023, 07/19/2017 DIABETES: BLOOD SUGAR CONTROL TEST (HGBA1C) 02/25/2024 11/26/2023, 09/26/2023, 03/02/2023, Additional history exists BMI CHECK/ADVISE 03/12/2024 01/10/2024, , 11/22/2023, Additional history exists DEPRESSION SCREENING/FOLLOWUP 03/12/2024 04/17/2023, 08/18/2022, 07/12/2022, Additional history exists CERVICAL CANCER SCREENING 04/11/20242021, 04/09/2019, 09/26/2013, Additional history exists INFLUENZA (#1) 2024 12/29/2022, 03/13 (Refused), 01/18/2018, Additional history exists Postponed from 11/11/2023 (Patient Refused) COLON CANCER SCREENING 09/28/2024 , 01/31/2016, 12/10/2012 DEPRESSION SCREEN 09/30/2024 10/01/2023, , 10/11/2021 DIABETES: ANNUAL FOOT EXAM 09/30/202409/30, 06/22/2022, 08/04/2021, Additional history exists FALL RISK ASSESSMENT 09/30/2024 10/01/2023 DIABETES/HEART DISEASE: ANNUAL CHOLESTEROL (LDL) 10/03/2024 10/04/2023, 05/10/2022, 02/15/2021, Additional history exists DIABETES: ANNUAL URINE PROTEIN TEST (MICROALBUMIN) 10/03/2024 10/04/2023, 05/10/2022, 02/15/2021 DTAP/TDAP/TD (3 - Td or Tdap) 10/31/2032 10/31/2022, 08/13/2012 HEPATITIS C SCREENING Completed 09/22/2014 , 05/13/2012 (External Completion) Care Teams Maintenance Coordinator Relationship Specialty Start Date End Date Ora Ronquillo MD [address] [place] [address] PCP - General Internal Medicine 10/11/21 Jl Mendez MD [address] [place] [address] [place] [address] Specialist Cardiovascular Disease 10/13/21 Jannette Boudreaux MD [address] [address] Surgeon Neurosurgery 04/07/22 Tenisha Mendieta PA-C [address] [address] Specialist Neurosurgery 04/07/22 Julio Monk PA-C [address] [address] Specialist Neurosurgery 04/07/22 Luis Armando Eller MD 175 [facility] [address] [place] [address] Specialist ORTHOPEDIC SURGERY 10/01/23 Jayesh Pineda MD [address] [place] [address] Specialist Endocrinology 10/01/23 Kelsi Tejada MD [address] [place] [address] Specialist Allergy & Immunology 10/01/23 Pretty Le MD 175 [facility] [address] [place] [address] Specialist Pulmonology 10/01/23 Vesta Michael PA-C [address] [facility] [address] [place] [phone] Specialist Vascular Surgery 10/01/23 [facility] [address] [place] [address] Specialist Optometry 10/01/23
--- OUTSIDE RECORDS SUMMARY | 2024-05-13 12:16 | XMS_ITS | Encounter Summary ---
Author Organization [facility] Address [address] [place] [address] Care Team Providers Care Biology Teacher Name Role Phone Teressa Solis DO Primary Care Pro vider Unavailable Mina Pretty DO Primary Care Provider Shweta Cronin MD Primary Care Provider Ora Diaz MD Primary Care Prov ider Jl Mendez MD Unavailable [phone] Jannette Boudreaux MD Unavailable [phone] Tenisha Mendieta PA-C Unavailable [phone] Julio Monk PA-C Unavailable Luis Armando Eller MD Unavailable [phone] Jayesh Pineda MD Unavailable Kelsi Tejada MD Unavailable Unavailable Pretty Le MD Unavailable Vesta Michael PA-C Unavailable [phone] [facility] Unavailable [phone] Encounter Details Date Type Department Care Team Description 06/23/2015 Hospital Medical Records [address] [place] [address] Phoebe Crain MD Social History Tobacco Use Types Packs/Day Years Used Date Smoking Tobacco: Never Smokeless Tobacco: Never Alcohol Use Standard Drinks/Week Comments No 0 (1 standard drink = 0.6 oz pur e alcohol) Education Answer Date Recorded What is the highest level of school you have completed or the highest degree you have received? 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, LANDING SUPPORT SPECIALIST, CHANDRAKANT) 06/14/2020 Sex Assigned at Date Recorded Female 08/03/2020 10:16 PM EDT Job Start Date Occupation Industry Not on file Not on file Not on file documented as of this encounter Plan of Treatment Not on file documented as of this encounter Visit Diagnoses Not on filedocumented in this encounter Care Teams Biology Teacher Relationship Specialty Start Date End Date Teressa Solis DO PCP - General Internal Medicine 12/18/13 09/15/20 Mina Pretty DO PCP - General Internal Medicine 09/16/20 Shweta Boucher MD PCP - General Internal Medicine 01/12/21 10/10/21 Ora Ronquillo MD [address] [place] [address] PCP - General Internal Medicine 10/11/21 Jl Mendez MD [address] [place] [address] Dr Mont[address] [place] [address] Specialist Cardiovascular Disease 10/13/21 Jannette Boudreaux MD [address] [address] Surgeon Neurosurgery 04/07/22 Tenisha Mendieta PA-C [address] [address] Specialist Neurosurgery 04/07/22 Julio Monk PA-C [address] [address] Specialist Neurosurgery 04/07/22 Luis Armando Eller MD [address] [address] Specialist ORTHOPEDIC SURGERY 10/01/23 Jayesh Pineda MD [address] [place] [address] Specialist Endocrinology 10/01/23 Kelsi Tejada MD [address] [place] [address] Specialist Allergy & Immunology 10/01/23 Pretty Le MD 175 [facility] [address] [place] [address] Specialist Pulmonology 10/01/23 Vesta Michael PA-C 300 [facility] [address] [place] [address] Specialist Vascular Surgery 10/01/23 [facility] [address] [place] [address] Specialist Optometry 10/01/23 documented as of this encounter
--- OUTSIDE RECORDS SUMMARY | 2024-05-13 12:16 | XMS_ITS | Encounter Summary ---
Author Organization [facility] Address [address] [place] [address] Care Team Providers Care Bi Solutions Architect Name Role Phone Ora Ronquillo MD Primary Care Prov ider Jl Mendez MD Unavailable Jannette Boudreaux MD Unavailable [phone] Tenisha Mendieta-C Unavailable [phone] Julio Monk PA-C Unavailable Luis Armando Eller MD Unavailable [phone] Jayesh Pineda MD Unavailable Kelsi Tejada MD Unavailable Unavailable Pretty Le MD Unavailable Vesta Michael PA-C Unavailable [phone] [facility] Unavailable Encounter Details Date Type Department Care Team Description 11/19/2023 SCAN [facility] [address] [facility] [address] [place] [phone] Lorie Moore, DONN 1515 [facility] [place] [address] Social History Tobacco Use Types Packs/Day Years Used Date Smoking Tobacco: Never Smokeless Tobacco: Never Alcohol Use Standard Drinks/Week Comments No 0 (1 standard drink = 0.6 oz pur e alcohol) Education Answer Date Recorded What is the highest level of school you have completed or the highest degree you have received? 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, SHELTER ADVOCATE, CHANDRAKANT) 06/14/2020 Sex Assigned at Date Recorded Female 08/03/2020 10:16 PM EDT Job Start Date Occupation Industry Not on file Not on file Not on file documented as of this encounter Plan of Treatment Not on file documented as of this encounter Visit Diagnoses Not on filedocumented in this encounter Care Teams Bi Solutions Architect Relationship Specialty Start Date End Date Ora Ronquillo MD [address] [place] [address] PCP - General Internal Medicine 10/11/21 Jl Mendez MD [address] [place] [address] Dr Mont[address] [place] [address] Specialist Cardiovascular Disease 10/13/21 Jannette Boudreaux MD [address] [address] Surgeon Neurosurgery 04/07/22 Tenisha Mendieta PA-C [address] [address] Specialist Neurosurgery 04/07/22 Julio Monk PA-C 175 [facility] 300 [place] [address] Specialist Neurosurgery 04/07/22 Luis Armando Eller MD [address] [address] Specialist ORTHOPEDIC SURGERY 10/01/23 Jayesh Pineda MD [address] [place] [address] Specialist Endocrinology 10/01/23 Kelsi Tejada MD [address] [place] [address] Specialist Allergy & Immunology 10/01/23 Pretty Le MD 175 [facility] 200 [place] [address] Specialist Pulmonology 10/01/23 Vesta Michael PA-C 300 [facility] 210 [place] [address] Specialist Vascular Surgery 10/01/23 [facility] 46 [place] [address] Specialist Optometry 10/01/23 documented as of this encounter
--- OUTSIDE RECORDS SUMMARY | 2024-05-13 12:17 | XMS_ITS | Encounter Summary ---
Author Organization [facility] Address [address] [place] [address] Care Team Providers Care Division Order Analyst Name Role Phone Ora Ronquillo MD Primary Care Prov ider Jl Mendez MD Unavailable Jannette Boudreaux MD Unavailable [phone] Tenisha Mendieta PA-C Unavailable Julio Monk PA-C Unavailable Luis Armando Eller MD Unavailable [phone] Jayesh Pineda MD Unavailable Kelsi Tejada MD Unavailable Unavailable Pretty Le MD Unavailable Vesta Michael PA-C Unavailable [phone] [facility] Unavailable Encounter Details Date Type Department Care Team Description 09/19/2023 Refill Endocrinology - [place] 444 [place] [address] Jayesh Pineda MD 305 [place], [place] [id number] Social History Tobacco Use Types Packs/Day Years Used Date Smoking Tobacco: Never Smokeless Tobacco: Never Alcohol Use Standard Drinks/Week Comments No 0 (1 standard drink = 0.6 oz pur e alcohol) Education Answer Date Recorded What is the highest level of school you have completed or the highest degree you have received? 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, STOPER, CHANDRAKANT) 06/14/2020 Sex Assigned at Date Recorded [...] (HCC) documented in this encounter Care Teams Division Order Analyst Relationship Specialty Start Date End Date Ora Ronquillo MD [address] [place] [address] PCP - General Internal Medicine 10/11/21 Jl Mendez MD [address] [place] [address] Dr Montiel [address] [place] [address] Specialist Cardiovascular Disease 10/13/21 Jannette Boudreaux MD [address] [address] Surgeon Neurosurgery 04/07/22 Tenisha Mendieta PA-C [address] [address] Specialist Neurosurgery 04/07/22 Julio Monk PA-C 175 [facility] [address] [place] [address] Specialist Neurosurgery 04/07/22 Luis Armando Eller MD [address] [address] Specialist ORTHOPEDIC SURGERY 10/01/23 Jayesh Pineda MD 305 [place] [address] Specialist Endocrinology 10/01/23 Kelsi Tejada MD 305 [place] [address] Specialist Allergy & Immunology 10/01/23 Pretty Le MD 175 [facility] [address] [place] [address] Specialist Pulmonology 10/01/23 Vesta Michael PA-C 300 [facility] 210 [place] [address] Specialist Vascular Surgery 10/01/23 [facility] 46 [place] [address] Specialist Optometry 10/01/23 documented as of this encounter
--- OUTSIDE RECORDS SUMMARY | 2024-05-13 12:17 | XMS_ITS | Encounter Summary ---
Author Organization [facility] Address [address] [place] [address] Care Team Providers Care Concrete Rod Buster Name Role Phone Shweta Tellez MD Primary Care Provider Ora Diaz MD Primary Care Prov ider Jl Mendez MD Unavailable [phone] Jannette Boudreaux MD Unavailable [phone] Tenisha Mendieta PA-C Unavailable [phone] Julio Monk PA-C Unavailable [phone] Luis Armando Eller MD Unavailable [phone] Jayesh Pineda MD Unavailable Kelsi Tejada MD Unavailable Unavailable Pretty Le MD Unavailable Vesta Michael-C Unavailable [phone] [facility] Unavailable [phone] Encounter Details Date Type Department Care Team Description 09/09/2021 Hospital Medical Records 444 [place] [address] Cailin Ballesteros NP Social History Tobacco Use Types Packs/Day Years Used Date Smoking Tobacco: Never Smokeless Tobacco: Never Alcohol Use Standard Drinks/Week Comments No 0 (1 standard drink = 0.6 oz pur e alcohol) Education Answer Date Recorded What is the highest level of school you have completed or the highest degree you have received? Master's degree (e.g., TAINA, MS, Lexi, MEd, BEEHIVE KILN SUPERVISOR, CHANDRAKANT) 06/14/2020 Sex Assigned at Date [...] on filedocumented in this encounter Care Teams Concrete Rod Buster Relationship Specialty Start Date End Date Shweta Tellez MD PCP - General Internal Medicine 01/12/21 10/10/21 Ora Ronquillo MD [address] [place] [address] PCP - General Internal Medicine 10/11/21 Jl Mendez MD [address] [place] [address] Dr Mont[address] [place] [address] Specialist Cardiovascular Disease 10/13/21 Jannette Boudreaux MD [address] [address] Surgeon Neurosurgery 04/07/22 Tenisha Mendieta PA-C [address] [address] Specialist Neurosurgery 04/07/22 Julio Monk PA-C 175 [facility] [address] [place] [address] Specialist Neurosurgery 04/07/22 Luis Armando Eller MD [address] [address] Specialist ORTHOPEDIC SURGERY 10/01/23 Jayesh Pineda MD 305 [place] [address] Specialist Endocrinology 10/01/23 Kelsi Tejada MD 305 [place] [address] Specialist Allergy & Immunology 10/01/23 Pretty Le MD 175 [facility] [address] [place] [address] Specialist Pulmonology 10/01/23 Vesta Michael PA-C 300 [facility] [address] [place] [address] Specialist Vascular Surgery 10/01/23 [facility] 46 [place] [address] Specialist Optometry 10/01/23 documented as of this encounter
--- OUTSIDE RECORDS SUMMARY | 2024-05-13 12:17 | XMS_ITS | Encounter Summary ---
Author Organization [facility] Address [address] [place] [address] Care Team Providers Care Bulb Grader Name Role Phone Shweta Tellez MD Primary Care Provider Ora Diaz MD Primary Care Prov ider Jl Mendez MD Unavailable [phone] Jannette Boudreaux MD Unavailable [phone] Tenisha Mendieta PA-C Unavailable Julio Monk PA-C Unavailable Luis Armando Eller MD Unavailable [phone] Jayesh Pineda MD Unavailable Kelsi Tejada MD Unavailable Unavailable Pretty Le MD Unavailable Vesta Michael-Pina Unavailable [phone] [facility] Unavailable [phone] Encounter Details Date Type Department Care Team Description 08/29/2021 SCAN Medical Records [address] [place] [address] Abstract, Provider Social History Tobacco Use Types Packs/Day Years Used Date Smoking Tobacco: Never Smokeless Tobacco: Never Alcohol Use Standard Drinks/Week Comments No 0 (1 standard drink = 0.6 oz pur e alcohol) Education Answer Date Recorded What is the highest level of school you have completed or the highest degree you have received? 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, PARCEL POST WEIGHER, CHANDRAKANT) 06/14/2020 Sex Assigned at Date Recorded [...] on filedocumented in this encounter Care Teams Bulb Grader Relationship Specialty Start Date End Date Shweta Tellez MD PCP - General Internal Medicine 01/12/21 10/10/21 Ora Ronquillo MD [address] [place] [address] PCP - General Internal Medicine 10/11/21 Jl Mendez MD [address] [place] [address] Dr Montile [address] [place] [address] Specialist Cardiovascular Disease 10/13/21 Jannette Boudreaux MD [address] [address] Surgeon Neurosurgery 04/07/22 Tenisha Mendieta PA-C [address] [place] [address] [address] Specialist Neurosurgery 04/07/22 Julio Monk PA-C [address] [address] Specialist Neurosurgery 04/07/22 Luis Armando Eller MD [address] [address] Specialist ORTHOPEDIC SURGERY 10/01/23 Jayesh Pineda MD 305 [place] [address] Specialist Endocrinology 10/01/23 Kelsi Tejada MD 305 [place] [address] Specialist Allergy & Immunology 10/01/23 Pretty Le MD 175 [facility] [address] [place] [address] Specialist Pulmonology 10/01/23 Vesta Michael PA-C 300 [facility] [address] [place] [address] Specialist Vascular Surgery 10/01/23 [facility] 46 [place] [address] Specialist Optometry 10/01/23 documented as of this encounter
--- OUTSIDE RECORDS SUMMARY | 2024-05-13 12:17 | XMS_ITS | Encounter Summary ---
Author Organization [facility] Address [address] [place] [address] Care Team Providers Care Trim Machine Operator Name Role Phone Ora Ronquillo MD Primary Care Prov ider Jl Mendez MD Unavailable [phone] Jannette Boudreaux MD Unavailable [phone] Tenisha Mendieta PA-C Unavailable [phone] Julio MonkC Unavailable Luis Armando Eller MD Unavailable [phone] Jayesh Pineda MD Unavailable Kelsi Tejada MD Unavailable Unavailable Pretty Le MD Unavailable Vesta Michael PA-Pina Unavailable [phone] [facility] Unavailable [phone] Encounter Details Date Type Department Care Team Description 02/09/2022 Portrait Painter Report Medical Records [address] [place] [address] Jorge Belcher II Social History Tobacco Use Types Packs/Day Years Used Date Smoking Tobacco: Never Smokeless Tobacco: Never Alcohol Use Standard Drinks/Week Comments No 0 (1 standard drink = 0.6 oz pur e alcohol) Education Answer Date Recorded What is the highest level of school you have completed or the highest degree you have received? 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, INTRAMURAL DIRECTOR, CHANDRAKANT) 06/14/2020 Sex Assigned at Date Recorded Female 08/03/2020 10:16 PM EDT Job Start Date Occupation Industry Not on file Not on file Not on file documented as of this encounter Plan of Treatment Not on file documented as of this encounter Visit Diagnoses Not on filedocumented in this encounter Care Teams Trim Machine Operator Relationship Specialty Start Date End Date Ora Ronquillo MD [address] [place] [address] PCP - General Internal Medicine 10/11/21 Jl Mendez MD [address] [place] [address] Dr Mont[address] [place] [address] Specialist Cardiovascular Disease 10/13/21 Jannette Boudreaux MD [address] [address] Surgeon Neurosurgery 04/07/22 Tenisha Mendieta PA-C [address] [address] Specialist Neurosurgery 04/07/22 Julio Monk PA-C 175 [facility] 300 [place] [address] Specialist Neurosurgery 04/07/22 Luis Armando Eller MD 175 [facility] 250 [place] [address] Specialist ORTHOPEDIC SURGERY 10/01/23 Jayesh Pineda MD 305 [place] [address] Specialist Endocrinology 10/01/23 Kelsi Tejada MD 305 [place] [address] Specialist Allergy & Immunology 10/01/23 Pretty Le MD 175 [facility] 200 [place] [address] Specialist Pulmonology 10/01/23 Vesta Michael PA-C 300 [facility] 210 [place] [address] Specialist Vascular Surgery 10/01/23 [facility] 46 [place], [place] [address] Specialist Optometry 10/01/23 documented as of this encounter
--- OUTSIDE RECORDS SUMMARY | 2024-05-13 12:17 | XMS_ITS | Encounter Summary ---
Author Organization [facility] Address [address] [place] [address] Care Team Providers Care Glycerin Operator Name Role Phone Teressa Solis DO Primary Care Pro vider Unavailable Mina Pretty DO Primary Care Provider Shweta Cronin MD Primary Care Provider Ora Diaz MD Primary Care Prov ider Jl Mendez MD Unavailable [phone] Jannette Boudreaux MD Unavailable [phone] Tenisha Mendieta PA-C Unavailable Julio Monk PA-C Unavailable Luis Armando Eller MD Unavailable [phone] Jayesh Pineda MD Unavailable Kelsi Tejada MD Unavailable Unavailable Pretty Le MD Unavailable Vesta Michael PA-C Unavailable [phone] [facility] Unavailable [phone] Encounter Details Date Type Department Care Team Description 07/21/2019 Hospital Medical Records 4 [place] [address] [facility] Social History Tobacco Use Types Packs/Day Years Used Date Smoking Tobacco: Never Smokeless Tobacco: Never Alcohol Use Standard Drinks/Week Comments No 0 (1 standard drink = 0.6 oz pur e alcohol) Education Answer Date Recorded What is the highest level of school you have completed or the highest degree you have received? 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, INDUSTRIAL TECHNICIAN, CHANDRAKANT) 06/14/2020 Sex Assigned at Date Recorded Female 08/03/2020 10:16 PM EDT Job Start Date Occupation Industry Not on file Not on file Not on file documented as of this encounter Plan of Treatment Not on file documented as of this encounter Visit Diagnoses Not on filedocumented in this encounter Care Teams Glycerin Operator Relationship Specialty Start Date End Date Teressa Solis, PCP - General Internal Medicine 12/18/13 09/15/20 Mina Pretty DO PCP - General Internal Medicine 09/16/20 Shweta Boucher MD PCP - General Internal Medicine 01/12/21 10/10/21 Ora Ronquillo MD [address] [place] [address] PCP - General Internal Medicine 10/11/21 Jl Mendez MD [address] [place] [address] Dr Montiel [address] [place] [address] Specialist Cardiovascular Disease 10/13/21 Jannette Boudreaux MD [address] [address] Surgeon Neurosurgery 04/07/22 Tenisha Mendieta PA-C [address] [address] Specialist Neurosurgery 04/07/22 Julio Monk PA-C 175 [facility] [address] [place] [address] Specialist Neurosurgery 04/07/22 Luis Armando Eller MD [address] [address] Specialist ORTHOPEDIC SURGERY 10/01/23 Jayesh Pineda MD [address] [place] [address] Specialist Endocrinology 10/01/23 Kelsi Tejada MD 305 [place] [address] Specialist Allergy & Immunology 10/01/23 Pretty Le MD 175 [facility] [address] [place] [address] Specialist Pulmonology 10/01/23 Vesta Michael PA-C 300 [facility] [address] [place] [address] Specialist Vascular Surgery 10/01/23 [facility] 46 [place], [place] [address] Specialist Optometry 10/01/23 documented as of this encounter
--- OUTSIDE RECORDS SUMMARY | 2024-05-13 12:17 | XMS_ITS | Encounter Summary ---
Author Organization [facility] Address [address] [place] [address] Care Team Providers Care Surgical Garment Inspector Name Role Phone Shweta Tellez MD Primary Care Provider Ora Diaz MD Primary Care Prov ider Jl Mendez MD Unavailable [phone] Jannette Boudreaux MD Unavailable [phone] Tenisha Mendieta PA-C Unavailable [phone] Julio Monk PA-C Unavailable [phone] Luis Armando Eller MD Unavailable [phone] Jayesh Pineda MD Unavailable Kelsi Tejada MD Unavailable Unavailable Pretty Le MD Unavailable Vesta Michael PA-C Unavailable [phone] [facility] Unavailable [phone] Encounter Details Date Type Department Care Team Description 09/09/2021 Hospital Medical Records [address] [place] [address] [facility] Social History Tobacco Use Types Packs/Day Years Used Date Smoking Tobacco: Never Smokeless Tobacco: Never Alcohol Use Standard Drinks/Week Comments No 0 (1 standard drink = 0.6 oz pur e alcohol) Education Answer Date Recorded What is the highest level of school you have completed or the highest degree you have received? 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, BELT AND LINK ASSEMBLY SUPERVISOR, CHANDRAKANT) 06/14/2020 Sex Assigned at Date [...] filedocumented in this encounter Care Teams Surgical Garment Inspector Relationship Specialty Start Date End Date Shweta Tellez MD PCP - General Internal Medicine 01/12/21 10/10/21 Ora Ronquillo MD [address] [place] [address] PCP - General Internal Medicine 10/11/21 Jl Mendez MD [address] [place] [address] [place] [address] Specialist Cardiovascular Disease 10/13/21 Jannette Boudreaux MD [address] [address] Surgeon Neurosurgery 04/07/22 Tenisha Mendieta PA-C 175 [facility] 300 [place] [address] Specialist Neurosurgery 04/07/22 Julio Monk PA-C 175 [facility] 300 [place] [address] Specialist Neurosurgery 04/07/22 Luis Armando Eller MD 175 [facility] 250 [place] [address] Specialist ORTHOPEDIC SURGERY 10/01/23 Jayesh Pineda MD 305 [place] [address] Specialist Endocrinology 10/01/23 Kelsi Tejada MD 305 [place] [address] Specialist Allergy & Immunology 10/01/23 Pretty Le MD 175 [facility] 200 [place] [address] Specialist Pulmonology 10/01/23 Vesta Michael PA-C 300 [facility] 210 [place] [address] Specialist Vascular Surgery 10/01/23 Center[facility] 46 [place] [address] Specialist Optometry 10/01/23 documented as of this encounter
--- OUTSIDE RECORDS SUMMARY | 2024-05-13 12:17 | XMS_ITS | Encounter Summary ---
Author Organization [facility] Address [address] [place] [address] Care Team Providers Care Chief Cook Name Role Phone Teressa Solis DO Primary Care Pro vider Unavailable Mina Pretty DO Primary Care Provider Shweta Cronin MD Primary Care Provider Ora Diaz MD Primary Care Prov ider Jl Mendez MD Unavailable [phone] Jannette Boudreaux MD Unavailable [phone] Tenisha Mendieta PA-C Unavailable Julio Monk PA-C Unavailable [phone] Luis Armando Eller MD Unavailable [phone] Jayesh Pineda MD Unavailable Kelsi Tejada MD Unavailable Unavailable Pretty Le MD Unavailable Vesta Michael PA-C Unavailable [phone] [facility] Unavailable [phone] Encounter Details Date Type Department Care Team Description 04/19/2020 Supervisor Reinforced Steel Placing Report Medical Records 4 [place] [address] Jose Daniel Nguyễn MD Social History Tobacco [...] filedocumented in this encounter Care Teams Chief Cook Relationship Specialty Start Date End Date Teressa Solis DO PCP - General Internal Medicine 12/18/13 09/15/20 Mina Pretty DO PCP - General Internal Medicine 09/16/20 Shweta Boucher MD PCP - General Internal Medicine 01/12/21 10/10/21 Ora Ronquillo MD [address] [place] [address] PCP - General Internal Medicine 10/11/21 Jl Mendez MD [address] [place] [address] Dr Montiel [address] [place] [address] Specialist Cardiovascular Disease 10/13/21 Jannette Boudreaux MD [address] [address] Surgeon Neurosurgery 04/07/22 Tenisha Mendieta PA-C [address] [address] Specialist Neurosurgery 04/07/22 Julio Monk PA-C 175 [facility] [address] [place] [address] Specialist Neurosurgery 04/07/22 Luis Armando Eller MD [address] [address] Specialist ORTHOPEDIC SURGERY 10/01/23 Jayesh Pineda MD [address] [place] [address] Specialist Endocrinology 10/01/23 Kelsi Tejada MD 305 [place] [address] Specialist Allergy & Immunology 10/01/23 Pretty Le MD 175 [facility] [address] [place] [address] Specialist Pulmonology 10/01/23 Vesta Michael PA-C 300 [facility] 210 [place] [address] Specialist Vascular Surgery 10/01/23 [facility] 46 [place] [address] Specialist Optometry 10/01/23 documented as of this encounter
--- OUTSIDE RECORDS SUMMARY | 2024-05-13 12:17 | XMS_ITS | Encounter Summary ---
Author Organization [facility] Address [address] [place] [address] Care Team Providers Care Explosive Expert Name Role Phone Teressa Solis DO Primary Care Pro vider Unavailable Mina Pretty DO Primary Care Provider Ailyn Shweta Pretty MD Primary Care Provider UnaOra Randall MD Primary Care Prov ider Jl Mendez MD Unavailable Jannette Boudreaux MD Unavailable [phone] Tenisha Mendieta PA-C Unavailable [phone] Juloi Monk PA-C Unavailable Luis Armando Eller MD Unavailable [phone] Jayesh Pineda MD Unavailable Kelsi Tejada MD Unavailable Unavailable Pretty Le MD Unavailable Vesta Michael PA-C Unavailable [phone] [facility] Unavailable Reason for Referral * (Priority) - Closed Specialty Diagnoses / Procedures Referred By Janie castillo Referred To Contact ORTHOPEDICS / Orthopedic Procedures REFERRAL TO ORTHOPEDICS (OUT OF NETWORK) Teressa Solis DO [address] [place] [address] External Orthopedics Referral ID Status Reason Start Date Expiration Date V isits Requested Visits Authorized SEE REVIEW ON 09/19/2019 Closed 09/18/2019 1 1 Reason for Visit * Reason Onset Date Comments REFERRAL 09/03/2019 Encounter Details Date Type Department Care Team Description 09/03/2019 Pt. Non Urgent Medic al Question Adult Medicine [address] [address] Teressa Solis DO Social History Tobacco Use [...] 2019 1:09 AM EDT Please clarfiy which [facility] Dr. Beatty is affiliated with * Sarah Farias M.A. - 09/04/2019 10:59 AM EDTFrom: Ana Luisa House To: Teressa Grace DO Sent: 09/03/2019 11:41 PM EDT Subject: Referral Hi, Dr. Ramos My daughter sister in law, wants me to be seen by her Dr. Sal Beatty in [place], [place]. He reconstructed her hip. She said [...] need to contact me, my phone is [phone]. Thanks for supporting in this. Ana Luisa documented in this encounter Plan of Treatment Not on file documented as of this encounter Visit Diagnoses Not on filedocumented in this encounter Care Teams Explosive Expert Relationship Specialty Start Date End Date Teressa Solis DO PCP - General Internal Medicine 12/18/13 09/15/20 Mina Pretty DO PCP - General Internal Medicine 09/16/20 1 Shweta Tellez MD PCP - General Internal Medicine 01/12/21 10/10/21 Ora Ronquillo MD [address] [place] [address] PCP - General Internal Medicine 10/11/21 Jl Mendez MD [address] [place] [address] Dr [address] [place] [address] Specialist Cardiovascular Disease 10/13/21 Jannette Boudreaux MD [address] [address] Surgeon Neurosurgery 04/07/22 Tenisha Mendieta PA-C [address] [address] Specialist Neurosurgery 04/07/22 Julio Monk PA-C [address] [address] Specialist Neurosurgery 04/07/22 Luis Armando Eller MD [address] [address] Specialist ORTHOPEDIC SURGERY 10/01/23 Jayesh Pineda MD 305 [place] [address] Specialist Endocrinology 10/01/23 Kelsi Tejada MD 305 [place] [address] Specialist Allergy & Immunology 10/01/23 Pretty Le MD 175 [facility] 200 [place] [address] Specialist Pulmonology 10/01/23 Vesta Michael PA-C 300 [facility] 210 [place] [address] Specialist Vascular Surgery 10/01/23 [facility] [address] [place] [address] Specialist Optometry 10/01/23 documented as of this encounter
--- OUTSIDE RECORDS SUMMARY | 2024-05-13 12:17 | XMS_ITS | Encounter Summary ---
Author Organization [facility] Address [address] [place] [address] Care Team Providers Care Plastic Welder Name Role Phone Teressa Solis DO Primary Care Pro vider Unavailable Mina Pretty DO Primary Care Provider Shweta Cronin MD Primary Care Provider Ora Diaz MD Primary Care Prov ider Jl Mendez MD Unavailable [phone] Jannette Boudreaux MD Unavailable [phone] Tenisha Mendieta PA-C Unavailable [phone] Julio Monk PA-C Unavailable Luis Armando Eller MD Unavailable [phone] Jayesh Pineda MD Unavailable Kelsi Tejada MD Unavailable Unavailable Pretty Le MD Unavailable Vesta Michael PA-C Unavailable [phone] [facility] Unavailable [phone] Encounter Details Date Type Department Care Team Description 07/25/2019 Hospital Medical Records [address] [place] [address] [facility] Social History Tobacco Use Types Packs/Day Years Used Date Smoking Tobacco: Never Smokeless Tobacco: Never Alcohol Use Standard Drinks/Week Comments No 0 (1 standard drink = 0.6 oz pur e alcohol) Education Answer Date Recorded What is the highest level of school you have completed or the highest degree you have received? 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, WAREHOUSE REPRESENTATIVE, CHANDRAKANT) 06/14/2020 Sex Assigned at Date Recorded Female 08/03/2020 10:16 PM EDT Job Start Date Occupation Industry Not on file Not on file Not on file documented as of this encounter Plan of Treatment Not on file documented as of this encounter Visit Diagnoses Not on filedocumented in this encounter Care Teams Plastic Welder Relationship Specialty Start Date End Date Teressa Solis, PCP - General Internal Medicine 12/18/13 09/15/20 Mina Pretty DO PCP - General Internal Medicine 09/16/20 Shweta Boucher MD PCP - General Internal Medicine 01/12/21 10/10/21 Ora Ronquillo MD [address] [place] [address] PCP - General Internal Medicine 10/11/21 Jl Mendez MD [address] [place] [address] Dr [address] [place] [address] Specialist Cardiovascular Disease 10/13/21 Jannette Boudreaux MD [address] [address] Surgeon Neurosurgery 04/07/22 Tenisha Mendieta PA-C [address] [address] Specialist Neurosurgery 04/07/22 Julio Monk PA-C 175 [facility] [address] [place] [address] Specialist Neurosurgery 04/07/22 Luis Armando Eller MD [address] [address] Specialist ORTHOPEDIC SURGERY 10/01/23 Jayesh Pineda MD [address] [place] [address] Specialist Endocrinology 10/01/23 Kelsi Tejada MD 305 [place] [address] Specialist Allergy & Immunology 10/01/23 Pretty Le MD 175 [facility] [address] [place] [address] Specialist Pulmonology 10/01/23 Vesta Michael PA-C 300 [facility] [address] [place] [address] Specialist Vascular Surgery 10/01/23 [facility] 46 [place], [place] [phone] Specialist Optometry 10/01/23 documented as of this encounter
--- OUTSIDE RECORDS SUMMARY | 2024-05-13 12:17 | XMS_ITS | Encounter Summary ---
Author Organization [facility] Address [address] [place] [address] Care Team Providers Care Driver Salesman Name Role Phone Teressa Solis DO Primary Care Pro vider Unavailable Mina Pretty DO Primary Care Provider Shweta Cronin MD Primary Care Provider Ora Diaz MD Primary Care Prov ider Jl Mendez MD Unavailable [phone] Jannette Boudreaux MD Unavailable [phone] Tenisha Mendieta PA-C Unavailable Julio Monk PA-C Unavailable Luis Armando Eller MD Unavailable [phone] Jayesh Pineda MD Unavailable Kelsi Tejada MD Unavailable Unavailable Pretty Le MD Unavailable Vesta Michael PA-C Unavailable [phone] [facility] Unavailable Reason for Visit * Reason Onset Date Comments Medication 06/11/2019 Home Injection? Encounter Details Date Type Department Care Team Description 06/11/2019 Telephone Allergy [place] [address] [place] [address] Kelsi Tejada MD Medication (Home [...] on filedocumented in this encounter Care Teams Driver Salesman Relationship Specialty Start Date End Date Teressa Solis DO PCP - General Internal Medicine 12/18/13 09/15/20 Mina Pretty DO PCP - General Internal Medicine 09/16/20 1 Shweta Tellez MD PCP - General Internal Medicine 01/12/21 10/10/21 Ora Ronquillo MD [address] [place] [address] PCP - General Internal Medicine 10/11/21 Jl Mendez MD [address] [place] [address] Dr [address] [place] [address] Specialist Cardiovascular Disease 10/13/21 Jannette Boudreaux MD 175 [facility] 300 [place] [address] Surgeon Neurosurgery 04/07/22 Tenisha Mendieta PA-C [address] [address] Specialist Neurosurgery 04/07/22 Julio Monk PA-C 175 [facility] 300 [place] [address] Specialist Neurosurgery 04/07/22 Luis Armando Eller MD 175 [facility] 250 [place] [address] Specialist ORTHOPEDIC SURGERY 10/01/23 Jayesh Pineda MD 305 [place] [address] Specialist Endocrinology 10/01/23 Kelsi Tejada MD 305 [place] [address] Specialist Allergy & Immunology 10/01/23 Pretty Le MD 175 [facility] [address] [place] [address] Specialist Pulmonology 10/01/23 Vesta Michael PA-C 300 [facility] [address] [place] [address] Specialist Vascular Surgery 10/01/23 [facility] [address] [place] [address] Specialist Optometry 10/01/23 documented as of this encounter
--- OUTSIDE RECORDS SUMMARY | 2024-05-13 12:17 | XMS_ITS | Encounter Summary ---
Author Organization [facility] Address [address] [place] [address] Care Team Providers Care Filenet Admin Name Role Phone Shweta Tellez MD Primary Care Provider Ora Diaz MD Primary Care Prov ider Jl Mendez MD Unavailable [phone] Jannette Boudreaux MD Unavailable [phone] Tenisha Mendieta PA-C Unavailable [phone] Julio Monk PA-C Unavailable Luis Armando Eller MD Unavailable [phone] Jayesh Pineda MD Unavailable Kelsi Tejada MD Unavailable Unavailable Pretty Le MD Unavailable Vesta Michael PA-C Unavailable [phone] [facility] Unavailable [phone] Encounter Details Date Type Department Care Team Description 09/11/2021 Hospital Medical Records [address] [place] [address] Alicia Strong, PA Social History Tobacco Use Types Packs/Day Years Used Date Smoking Tobacco: Never Smokeless Tobacco: Never Alcohol Use Standard Drinks/Week Comments No 0 (1 standard drink = 0.6 oz pur e alcohol) Education Answer Date Recorded What is the highest level of school you have completed or the highest degree you have received? 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, HOSPICE AIDE, CHANDRAKANT) 06/14/2020 Sex Assigned at Date Recorded [...] on filedocumented in this encounter Care Teams Filenet Admin Relationship Specialty Start Date End Date Shweta Tellez MD PCP - General Internal Medicine 01/12/21 10/10/21 Ora Ronquillo MD [address] [place] [address] PCP - General Internal Medicine 10/11/21 Jl Mendez MD [address] [place] [address] Dr Montiel [address] [place] [address] Specialist Cardiovascular Disease 10/13/21 Jannette Boudreaux MD [address] [address] Surgeon Neurosurgery 04/07/22 Tenisha Mendieta PA-C [address] [address] Specialist Neurosurgery 04/07/22 Julio Monk PA-C 175 [facility] [address] [place] [address] Specialist Neurosurgery 04/07/22 Luis Armando Eller MD [address] [address] Specialist ORTHOPEDIC SURGERY 10/01/23 Jayesh Pineda MD 305 [place] [address] Specialist Endocrinology 10/01/23 Kelsi Tejada MD 305 [place] [address] Specialist Allergy & Immunology 10/01/23 Pretty Le MD 175 [facility] [address] [place] [address] Specialist Pulmonology 10/01/23 Vesta Michael PA-C 300 [facility] [address] [place] [address] Specialist Vascular Surgery 10/01/23 [facility] 46 [place] [address] Specialist Optometry 10/01/23 documented as of this encounter
--- OUTSIDE RECORDS SUMMARY | 2024-05-13 12:17 | XMS_ITS | Encounter Summary ---
Author Organization [facility] Address [address] [place] [address] Care Team Providers Care Shot Hole Shooter Name Role Phone Teressa Solis DO Primary Care Pro vider Unavailable Mina Pretty DO Primary Care Provider Shweta Cronin MD Primary Care Provider Ora Diaz MD Primary Care Prov ider Jl Mendez MD Unavailable [phone] Jannetet Boudreaux MD Unavailable [phone] Tenisha Mendieta PA-C Unavailable Julio Monk PA-C Unavailable [phone] Luis Armando Eller MD Unavailable [phone] Jayesh Pineda MD Unavailable Kelsi Tejada MD Unavailable Unavailable Pretty Le MD Unavailable Vesta Michael PA-C Unavailable [facility] Unavailable Encounter Details Date Type Department Care Team Description 06/13/2019 Telephone Allergy [place] 98 [address] [place] [address] Kelsi Tejada MD Social History [...] Irby M.A. - 06/13/2019 9:08 AM EDT [facility] calling to set up delivery for Nucala. [...] on filedocumented in this encounter Care Teams Shot Hole Shooter Relationship Specialty Start Date End Date Teressa Solis DO PCP - General Internal Medicine 12/18/13 09/15/20 Mina Pretty DO PCP - General Internal Medicine 09/16/20 1 Shweta Tellez MD PCP - General Internal Medicine 01/12/21 10/10/21 Ora Ronquillo MD [address] [place] [address] PCP - General Internal Medicine 10/11/21 Jl Mendez MD [address] [place] [address] Dr Mont[address] [place] [address] Specialist Cardiovascular Disease 10/13/21 Jannette Boudreaux MD [address] [address] Surgeon Neurosurgery 04/07/22 Tenisha Mendieta PA-C 175 [facility] 300 [place] [address] Specialist Neurosurgery 04/07/22 Julio Monk PA-C 175 [facility] 300 [place] [address] Specialist Neurosurgery 04/07/22 Luis Armando Eller MD 175 [facility] 250 [place] [address] Specialist ORTHOPEDIC SURGERY 10/01/23 Jayesh Pineda MD 305 [place] [address] Specialist Endocrinology 10/01/23 Kelsi Tejada MD 305 [place] [address] Specialist Allergy & Immunology 10/01/23 Pretty Le MD 175 [facility] 200 [place] [address] Specialist Pulmonology 10/01/23 Vesta Michael PA-C 300 [facility] 210 [place] [address] Specialist Vascular Surgery 10/01/23 [facility] 46 [place] [address] Specialist Optometry 10/01/23 documented as of this encounter
--- OUTSIDE RECORDS SUMMARY | 2024-05-13 12:17 | XMS_ITS | Encounter Summary ---
Author Organization [facility] Address [address] [place] [address] Care Team Providers Care Ware Dresser Name Role Phone Ora Ronquillo MD Primary Care Prov ider Jl Mendez MD Unavailable [phone] Jannette Boudreaux MD Unavailable [phone] Tenisha Mendieta PA-C Unavailable Julio Monk PA-C Unavailable Luis Armando Eller MD Unavailable [phone] Jayesh Pineda MD Unavailable Kelsi Tejada MD Unavailable Unavailable Pretty Le MD Unavailable Vesta Michael PA-C Unavailable [phone] [facility] Unavailable [phone] Encounter Details Date Type Department Care Team Description 07/03/2022 Refill Pulmonology - [place] 175 [facility] [address] [place] [phone] Michael Saldana MD Social History Tobacco Use Types Packs/Day Years Used Date Smoking Tobacco: Never Smokeless Tobacco: Never Alcohol Use Standard Drinks/Week Comments No 0 (1 standard drink = 0.6 oz pur e alcohol) Education Answer Date Recorded What is the highest level of school you have completed or the highest degree you have received? 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, BOTANY TEACHER, CHANDRAKANT) 06/14/2020 Sex Assigned at Date [...] complicated documented in this encounter Care Teams Ware Dresser Relationship Specialty Start Date End Date Ora Ronquillo MD [address] [place] [address] PCP - General Internal Medicine 10/11/21 Jl Mendez MD [address] [place] [address] Dr Mont[address] [place] [address] Specialist Cardiovascular Disease 10/13/21 Jannette Boudreaux MD [address] [address] Surgeon Neurosurgery 04/07/22 Tenisha Mendieta PA-C [address] [address] Specialist Neurosurgery 04/07/22 Julio Monk PA-C 175 [facility] [address] [place] [address] Specialist Neurosurgery 04/07/22 Luis Armando Eller MD [address] [address] Specialist ORTHOPEDIC SURGERY 10/01/23 Jayesh Pineda MD 305 [place] [address] Specialist Endocrinology 10/01/23 Kelsi Tejada MD 305 [place] [address] Specialist Allergy & Immunology 10/01/23 Pretty Le MD 175 [facility] [address] [place] [address] Specialist Pulmonology 10/01/23 Vesta Michael PA-C 300 [facility] [address] [place] [address] Specialist Vascular Surgery 10/01/23 [facility] [address] [place] [address] Specialist Optometry 10/01/23 documented as of this encounter
--- OUTSIDE RECORDS SUMMARY | 2024-05-13 12:17 | XMS_ITS | Encounter Summary ---
Author Organization [facility] Address [address] [place] [address] Care Team Providers Care Broadband Technician Name Role Phone Ora Ronquillo MD Primary Care Prov ider Jl Mendez MD Unavailable Jannette Boudreaux MD Unavailable [phone] Tenisha Mendieta PA-C Unavailable Julio Monk PA-C Unavailable [phone] Luis Armando Eller MD Unavailable [phone] Jayesh Pineda MD Unavailable Kelsi Tejada MD Unavailable Unavailable Pretty Le MD Unavailable Vesta Michael PA-C Unavailable [facility] Unavailable Encounter Details Date Type Department Care Team Description 06/30/2022 Orders Only Adult Medicine [address] [id number] Ora Ronquillo MD [address] [place] [id number] Preoperative examination; Screening for deficiency anemia Social History Tobacco Use Types Packs/Day Years Used Date Smoking Tobacco: Never Smokeless Tobacco: Never Alcohol Use Standard Drinks/Week Comments No 0 (1 standard drink = 0.6 oz pur e alcohol) Education Answer Date Recorded What is the highest level of school you have completed or the highest degree you have received? 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, COURT MAGISTRATE, CHANDRAKANT) 06/14/2020 Sex Assigned at Date Recorded [...] as of this encounter Results * (ABNORMAL) CHG BASIC METABOLIC PANEL CALCIUM TOTAL (10/30/2022 12:05 PM EDT) [facility] GLUCOSE 129(H) 70 - 100 mg/dL 10/30/2022 2:13 PM EDT [facility] Comment:Reference range appl icable to fasting specimens only Blood Urea Nitrogen 5 5 - 25 mg/dL 10/30/2022 2:13 PM EDT [facility] CREAT 0.78 0.5 - 1.1 mg/dL 10/30/2022 2:13 PM EDT [facility] GLOMERULAR FILTRATION RATE 85 >60 10/30/2022 2:13 PM EDT [facility] Comment: This eGFR result was calculated using the CKD-EPI 2020 Creatinine Equation NA 138 135 - 145 mEq/L 10/30/2022 2:13 PM EDT [facility] K 4.6 3.5 - 5.5 mmol/L 10/30/2022 2:13 PM EDT [facility] CL 106 96 - 110 mmol/L 10/30/2022 2:13 PM EDT [facility] CARBON DIOXIDE (CO2) 29 21 - 32 mmol/L 10/30/2022 2:13 PM EDT [facility] ANION GAP 3 3 - 11 10/30/2022 2:13 PM EDT [facility] CALCIUM 10.3 8.5 - 10.5 mg/dL 10/30/2022 2:13 PM EDT [facility] 10/30/2022 12:0 5 PM EDT 10/30/2022 12:06 PM EDT Narrative [facility] - 10/30/2022 2:13 PM EDT Release to patient->Immediate Ora Couch MD LAB [facility] * (ABNORMAL) CHG BLOOD COUNT COMPLETE AUTO&AUTO DIFRNTL WBC (10/30/2022 12:05 PM EDT) [facility] WHITE BLOOD COUNT 7.1 4.8 - 10.8 x10-3/uL 10/30/2022 2:10 PM EDT [facility] RED BLOOD COUNT 5.0(H) 3.8 - 4.8 x10-6/uL 10/30/2022 2:10 PM EDT [facility] Hemoglobin 13.9 11.5 - 16.0 g/dL 10/30/2022 2:10 PM EDT [facility] Hematocrit 44.3 35 - 47 % 10/30/2022 2:10 PM EDT [facility] MEAN CORPUSCULAR VOLUME 88.8 79 - 98 fL 10/30/2022 2:10 PM EDT [facility] MEAN CORPUSCULAR HEMOGLOBIN 27.9 27 - 32 pg 10/30/2022 2:10 PM EDT [facility] MEAN CORPUSCULAR HGB CONC 31.4(L) 32 - 37 g/dL 10/30/2022 2:10 PM EDT [facility] RED CELL DISTRIBUTION WIDTH 13.7 11 - 15 % 10/30/2022 2:10 PM EDT [facility] PLT COUNT 238 130 - 400 x10-3/uL 10/30/2022 2:10 PM EDT [facility] MEAN PLATELET VOLUME 11.6(H) 7 - 11 fL 10/30/2022 2:10 PM EDT [facility] NRBC % AUTO 0.0 <1 % 10/30/2022 2:10 PM EDT [facility] NEUTROPHILS % 61.9 % 10/30/2022 2:10 PM EDT [facility] LYMPH % 29.0 % 10/30/2022 2:10 PM EDT [facility] MONO % 6.6 % 10/30/2022 2:10 PM EDT [facility] EOS % 1.0 % 10/30/2022 2:10 PM EDT [facility] BASO % 0.7 % 10/30/2022 2:10 PM EDT [facility] IMMATURE GRANULOCYTES % 0.8 % 10/30/2022 2:10 PM EDT [facility] NRBC # AUTO 0.00 <0.1 x10-3/uL 10/30/2022 2:10 PM EDT [facility] NEUT # 4.40 1.5 - 7.0 x10-3/uL 10/30/2022 2:10 PM EDT [facility] LYMPH # 2.06 1 - 5.0 x10-3/uL 10/30/2022 2:10 PM EDT [facility] MONO # 0.47 0.2 - 1.0 x10-3/uL 10/30/2022 2:10 PM EDT [facility] EOS # 0.07 0 - 0.5 x10-3/uL 10/30/2022 2:10 PM EDT [facility] BASO # 0.05 0 - 0.2 x10-3/uL 10/30/2022 2:10 PM EDT [facility] IMMATURE GRANULOCYTES # 0.06(H) 0 - 0.03 x10-3/uL 10/30/2022 2:10 PM EDT [facility] 10/30/2022 12:0 5 PM EDT 10/30/2022 12:06 PM EDT Narrative [facility] - 10/30/2022 2:10 PM EDT Release to patient->Immediate Ora Couch MD LAB [facility] documented in this encounter Visit Diagnoses Diagnosis Preoperative examination Preoperative examination, unspecified Screening for deficiency anemia Screening for other and unspecified deficiency anemia Preoperative examination Preoperative examination, unspecified Screening for deficiency anemia Screening for other and unspecified deficiency anemia Controlled type 2 diabetes mellitus without complication, without long-term current use of insulin (HCC) documented in this encounter Care Teams Broadband Technician Relationship Specialty Start Date End Date Ora Ronquillo MD 444 [place] [address] PCP - General Internal Medicine 10/11/21 Jl Mendez MD [address] [place] [address] Dr [address] [place] [address] Specialist Cardiovascular Disease 10/13/21 Jannette Boudreaux MD 175 [facility] 300 [place] [address] Surgeon Neurosurgery 04/07/22 Tenisha Mendieta PA-C [address] [address] Specialist Neurosurgery 04/07/22 Julio Monk PA-C [address] [address] Specialist Neurosurgery 04/07/22 Luis Armando Eller MD [address] [address] Specialist ORTHOPEDIC SURGERY 10/01/23 Jayesh Pineda MD 305 [place] [address] Specialist Endocrinology 10/01/23 Kelsi Tejada MD 305 [place] [address] Specialist Allergy & Immunology 10/01/23 Pretty Le MD 175 [facility] 200 [place] [address] Specialist Pulmonology 10/01/23 Vesta Michael PA-C 300 [facility] 210 [place] [address] Specialist Vascular Surgery 10/01/23 [facility] 46 [place], [place] [phone] Specialist Optometry 10/01/23 documented as of this encounter
--- OUTSIDE RECORDS SUMMARY | 2024-05-13 12:17 | XMS_ITS | Encounter Summary ---
Author Organization [facility] Address [address] [place] [address] Care Team Providers Care Advertising Associate Name Role Phone Shweta Tellez MD Primary Care Provider Ora Diaz MD Primary Care Prov ider Jl Mendez MD Unavailable [phone] Jannette Boudreaux MD Unavailable [phone] Tenisha Mendieta PA-C Unavailable [phone] Julio Monk PA-C Unavailable Luis Armando Eller MD Unavailable [phone] Jayesh Pineda MD Unavailable Kelsi Tejada MD Unavailable Unavailable Pretty Le MD Unavailable Vesta Michael-C Unavailable [phone] [facility] Unavailable [phone] Encounter Details Date Type Department Care Team Description 10/06/2021 Tight Rope Walker Report Medical Records [address] [place] [address] Jorge Belcher II Social History Tobacco Use Types Packs/Day Years Used Date Smoking Tobacco: Never Smokeless Tobacco: Never Alcohol Use Standard Drinks/Week Comments No 0 (1 standard drink = 0.6 oz pur e alcohol) Education Answer Date Recorded What is the highest level of school you have completed or the highest degree you have received? 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, NURSERY RN, CHANDRAKANT) 06/14/2020 Sex Assigned at Date Recorded [...] on filedocumented in this encounter Care Teams Advertising Associate Relationship Specialty Start Date End Date Shweta Tellez MD PCP - General Internal Medicine 01/12/21 10/10/21 Ora Ronquillo MD [address] [place] [address] PCP - General Internal Medicine 10/11/21 Jl Mendez MD [address] [place] [address] Dr Mont[address] [place] [address] Specialist Cardiovascular Disease 10/13/21 Jannette Boudreaux MD [address] [address] Surgeon Neurosurgery 04/07/22 Tenisha Mendieta PA-C [address] [address] Specialist Neurosurgery 04/07/22 Julio Monk PA-C 175 [facility] [address] [place] [address] Specialist Neurosurgery 04/07/22 Luis Armando Eller MD [address] [address] Specialist ORTHOPEDIC SURGERY 10/01/23 Jayesh Pineda MD [address] [place] [address] Specialist Endocrinology 10/01/23 Kelsi Tejada MD 305 [place] [address] Specialist Allergy & Immunology 10/01/23 Pretty Le MD 175 [facility] [address] [place] [address] Specialist Pulmonology 10/01/23 Vesta Michael PA-C 300 [facility] [address] [place] [address] Specialist Vascular Surgery 10/01/23 [facility] [address] [place] [address] Specialist Optometry 10/01/23 documented as of this encounter
--- OUTSIDE RECORDS SUMMARY | 2024-05-13 12:17 | XMS_ITS | Encounter Summary ---
Author Organization [facility] Address [address] [place] [address] Care Team Providers Care Hydraulic Press In Operator Name Role Phone Ora Ronquillo MD Primary Care Prov ider Jl Mendez MD Unavailable Jannette Boudreaux MD Unavailable [phone] Tenisha MendietaC Unavailable Julio Monk-C Unavailable Luis Armando Eller MD Unavailable [phone] Jayesh Pineda MD Unavailable Kelsi Tejada MD Unavailable Unavailable Pretty Le MD Unavailable Vesta Michael PA-C Unavailable [facility] Unavailable Encounter Details Date Type Department Care Team Description 08/24/2023 SCAN [facility] Medical [facility] 175 [facility] [address] [place] [address] Luis Armando Eller MD 175 [facility] [address] [place], [place] [id number] Social History Tobacco Use Types Packs/Day Years Used Date Smoking Tobacco: Never Smokeless Tobacco: Never Alcohol Use Standard Drinks/Week Comments No 0 (1 standard drink = 0.6 oz pur e alcohol) Education Answer Date Recorded What is the highest level of school you have completed or the highest degree you have received? 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, RESOURCE TEACHER, CHANDRAKANT) 06/14/2020 Sex Assigned at Date Recorded Female 08/03/2020 10:16 PM EDT Job Start Date Occupation Industry Not on file Not on file Not on file documented as of this encounter Plan of Treatment Not on file documented as of this encounter Visit Diagnoses Not on filedocumented in this encounter Care Teams Hydraulic Press In Operator Relationship Specialty Start Date End Date Ora Ronquillo MD [address] [place] [address] PCP - General Internal Medicine 10/11/21 Jl Mendez MD [address] [place] [address] Dr Montiel [address] [place] [address] Specialist Cardiovascular Disease 10/13/21 Jannette Boudreaux MD [address] [address] Surgeon Neurosurgery 04/07/22 Tenisha Mendieta PA-C [address] [address] Specialist Neurosurgery 04/07/22 Julio Monk PA-C [address] [address] Specialist Neurosurgery 04/07/22 Luis Armando Eller MD [address] [address] Specialist ORTHOPEDIC SURGERY 10/01/23 Jayesh Pineda MD 305 [place] [address] Specialist Endocrinology 10/01/23 Kelsi Tejada MD 305 [place] [address] Specialist Allergy & Immunology 10/01/23 Pretty Le MD 175 [facility] 200 [place] [address] Specialist Pulmonology 10/01/23 Vesta Michael PA-C 300 [facility] 210 [place] [address] Specialist Vascular Surgery 10/01/23 [facility] [address] [place] [address] Specialist Optometry 10/01/23 documented as of this encounter
--- OUTSIDE RECORDS SUMMARY | 2024-05-13 12:17 | XMS_ITS | Encounter Summary ---
Author Organization [facility] Address [address] [place] [address] Care Team Providers Care Director Of Public Relations Name Role Phone Shweta Tellez MD Primary Care Provider Ora Diaz MD Primary Care Prov ider Jl Mendez MD Unavailable Jannette Boudreaux MD Unavailable [phone] Tenisha Mendieta PA-C Unavailable Julio Monk PA-C Unavailable Luis Armando Eller MD Unavailable [phone] Jayesh Pineda MD Unavailable Kelsi Tejada MD Unavailable Unavailable Pretty Le MD Unavailable Vesta Michael PA-C Unavailable [phone] [facility] Unavailable Reason for Visit * Reason Onset Date Comments heartburn 08/31/2021 Encounter Details Date Type Department Care Team Description 08/31/2021 Telephone Adult Medicine [address] [id number] Shweta Tellez MD heartburn Social History Tobacco Use Types Packs/Day Years Used Date Smoking Tobacco: Never Smokeless Tobacco: Never Alcohol Use Standard Drinks/Week Comments No 0 (1 standard drink = 0.6 oz pur e alcohol) Education Answer Date Recorded What is the highest level of school you have completed or the highest degree you have received? 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, SHUTTLE FILLER, CHANDRAKANT) 06/14/2020 Sex Assigned at Date Recorded [...] patient she was seen last weekend in [place] [facility] on Sunday for her GERD. Was advised [...] traveled recently to another state outside of [place], [place], [place], [place], [place], [place], [place]? NO o If yes, did [...] vehicle accident? NO If yes, gather 3rd libertarian insurance information Date of accident/Injury: How long has patient had these symptoms?: 1.5 weeks PCP: Shweta Tellez Payor: [employer] / Plan: [employer] / Product Type: MEDICAID RISK documented in this encounter Plan of Treatment Not on file documented as of this encounter Visit Diagnoses Not on filedocumented in this encounter Care Teams Director Of Public Relations Relationship Specialty Start Date End Date Shweta Tellez MD PCP - General Internal Medicine 01/12/21 10/10/21 Ora Ronquillo MD [address] [place] [address] PCP - General Internal Medicine 10/11/21 Jl Mendez MD [address] [place] [address] [place] [address] Specialist Cardiovascular Disease 10/13/21 Jannette Boudreaux MD [address] [address] Surgeon Neurosurgery 04/07/22 Tenisha Mendieta PA-C [address] [address] Specialist Neurosurgery 04/07/22 Julio Monk PA-C [address] [address] Specialist Neurosurgery 04/07/22 Luis Armando Eller MD 175 [facility] [address] [place] [address] Specialist ORTHOPEDIC SURGERY 10/01/23 Jayesh Pineda MD 305 [place] [address] Specialist Endocrinology 10/01/23 Kelsi Tejada MD 305 [place] [address] Specialist Allergy & Immunology 10/01/23 Pretty Le MD 175 [facility] [address] [place] [address] Specialist Pulmonology 10/01/23 Vesta Michael PA-C 300 [facility] [address] [place] [address] Specialist Vascular Surgery 10/01/23 [facility] [address] [place] [address] Specialist Optometry 10/01/23 documented as of this encounter
--- OUTSIDE RECORDS SUMMARY | 2024-05-13 12:17 | XMS_ITS | Encounter Summary ---
Author Organization [facility] Address [address] [place] [address] Care Team Providers Care Psychologist Experimental Name Role Phone Teressa Solis DO Primary Care Pro vider Unavailable Mina Pretty DO Primary Care Provider Shweta Cronin MD Primary Care Provider Ora Diaz MD Primary Care Prov ider Jl Mendez MD Unavailable Jannette Boudreaux MD Unavailable [phone] Tenisha Mendieta PA-C Unavailable [phone] Julio Monk PA-C Unavailable [phone] Luis Armando Eller MD Unavailable [phone] Jayesh Pineda MD Unavailable Kelsi Tejada MD Unavailable Unavailable Pretty Le MD Unavailable Vesta Michael PA-C Unavailable [phone] [facility] Unavailable [phone] Encounter Details Date Type Department Care Team Description 04/21/2020 Washtub Worker Report Medical Records [address] [place] [address] Randy Domínguez MD Social History Tobacco Use [...] on filedocumented in this encounter Care Teams Psychologist Experimental Relationship Specialty Start Date End Date Teressa Solis DO PCP - General Internal Medicine 12/18/13 09/15/20 Mina Pretty DO PCP - General Internal Medicine 09/16/20 Shweta Boucher MD PCP - General Internal Medicine 01/12/21 10/10/21 Ora Ronquillo MD [address] [place] [address] PCP - General Internal Medicine 10/11/21 Jl Mendez MD [address] [place] [address] Dr Mont[address] [place] [address] Specialist Cardiovascular Disease 10/13/21 Jannette Boudreaux MD [address] [address] Surgeon Neurosurgery 04/07/22 Tenisha Mendieta PA-C [address] [address] Specialist Neurosurgery 04/07/22 Julio Monk PA-C [address] [address] Specialist Neurosurgery 04/07/22 Luis Armando Eller MD [address] [address] Specialist ORTHOPEDIC SURGERY 10/01/23 Jayesh Pineda MD [address] [place] [address] [place] [address] Specialist Endocrinology 10/01/23 Kelsi Tejada MD 305 [place] [address] Specialist Allergy & Immunology 10/01/23 Pretty Le MD 175 [facility] [address] [place] [address] Specialist Pulmonology 10/01/23 Vesta Michael PA-C 300 [facility] 210 [place] [address] Specialist Vascular Surgery 10/01/23 [facility] [address] [place] [address] Specialist Optometry 10/01/23 documented as of this encounter
--- OUTSIDE RECORDS SUMMARY | 2024-05-13 12:18 | XMS_ITS | Encounter Summary ---
Author Organization [facility] Address [address] [place] [address] Care Team Providers Care Instrument Maker And Repairer Name Role Phone Teressa Solis DO Primary Care Pro vider Unavailable Mina Pretty DO Primary Care Provider Shweta Cronin MD Primary Care Provider Ora Diaz MD Primary Care Prov ider Jl Mendez MD Unavailable [phone] Jannette Boudreaux MD Unavailable [phone] Tenisha Mendieta PA-C Unavailable Julio Monk PA-C Unavailable Luis Armando Eller MD Unavailable [phone] Jayesh Pineda MD Unavailable Kelsi Tejada MD Unavailable Unavailable Pretty Le MD Unavailable Vesta Michael PA-C Unavailable [phone] [facility] Unavailable [phone] Encounter Details Date Type Department Care Team Description 02/06/2017 Subway Operator Report Medical Records 4 [place] [address] Jeff Ogden MD Social History Tobacco Use [...] on filedocumented in this encounter Care Teams Instrument Maker And Repairer Relationship Specialty Start Date End Date Teressa Solis DO PCP - General Internal Medicine 12/18/13 09/15/20 Mina Pretty DO PCP - General Internal Medicine 09/16/20 Shweta Boucher MD PCP - General Internal Medicine 01/12/21 10/10/21 Ora Ronquillo MD [address] [place] [address] PCP - General Internal Medicine 10/11/21 Jl Mendez MD [address] [place] [address] Specialist Cardiovascular Disease 10/13/21 Jannette Boudreaux MD [address] [address] Surgeon Neurosurgery 04/07/22 Tenisha Mendieta PA-C [address] [address] Specialist Neurosurgery 04/07/22 Julio Monk PA-C [address] [address] Specialist Neurosurgery 04/07/22 Luis Armando Eller MD [address] [address] Specialist ORTHOPEDIC SURGERY 10/01/23 Jayesh Pineda MD 305 [place] [address] Specialist Endocrinology 10/01/23 Kelsi Tejada MD 305 [place] [address] Specialist Allergy & Immunology 10/01/23 Pretty Le MD 175 [facility] [address] [place] [address] Specialist Pulmonology 10/01/23 Vesta Michael PA-C 300 [facility] 210 [place] [address] Specialist Vascular Surgery 10/01/23 [facility] [address] [place] [address] Specialist Optometry 10/01/23 documented as of this encounter
--- OUTSIDE RECORDS SUMMARY | 2024-05-13 12:18 | XMS_ITS | Encounter Summary ---
Author Organization [facility] Address [address] [place] [address] Care Team Providers Care Delivery Director Name Role Phone Teressa Solis DO Primary Care Pro vider Unavailable Mina Pretty DO Primary Care Provider Ailyn Shweta Pretty MD Primary Care Provider Ora Diaz MD Primary Care Prov ider Jl Mendez MD Unavailable Jannette Boudreaux MD Unavailable [phone] Tenisha Mendieta PA-C Unavailable Julio Monk PA-C Unavailable [phone] Luis Armando Eller MD Unavailable [phone] Jayesh Pineda MD Unavailable Kelsi Tejada MD Unavailable Unavailable Pretty Le MD Unavailable Vesta Michael PA-C Unavailable [phone] [facility] Unavailable Reason for Visit * Reason Onset Date Comments other 11/25/2019 covid screen Encounter Details Date Type Department Care Team Description 11/25/2019 Telephone Vascular Surgery - [place] [address] [place] [address] Vesta Michael PA-C 300 [facility] [address] [place] [address] other (covid screen) Social History [...] on filedocumented in this encounter Care Teams Delivery Director Relationship Specialty Start Date End Date Teressa Solis DO PCP - General Internal Medicine 12/18/13 09/15/20 Mina Pretty DO PCP - General Internal Medicine 09/16/20 1 Shweta Tellez MD PCP - General Internal Medicine 01/12/21 10/10/21 Ora Ronquillo MD [address] [place] [address] PCP - General Internal Medicine 10/11/21 Jl Mendez MD [address] [place] [address] [place] [address] Specialist Cardiovascular Disease 10/13/21 Jannette Boudreaux MD [address] [address] Surgeon Neurosurgery 04/07/22 Tenisha Mendieat PA-C 175 [facility] 300 [place] [address] Specialist Neurosurgery 04/07/22 Julio Monk PA-C 175 [facility] 300 [place] [address] Specialist Neurosurgery 04/07/22 Luis Armando Eller MD 175 [facility] 250 [place] [address] Specialist ORTHOPEDIC SURGERY 10/01/23 Jayesh Pineda MD 305 [place] [address] Specialist Endocrinology 10/01/23 Kelsi Tejada MD 305 [place] [address] Specialist Allergy & Immunology 10/01/23 Pretty Le MD 175 [facility] 200 [place] [address] Specialist Pulmonology 10/01/23 Vesta Michael PA-C 300 [facility] 210 [place] [address] Specialist Vascular Surgery 10/01/23 [facility] 46 [place] [address] Specialist Optometry 10/01/23 documented as of this encounter
--- OUTSIDE RECORDS SUMMARY | 2024-05-13 12:18 | XMS_ITS | Encounter Summary ---
Author Organization [facility] Address [address] [place] [address] Care Team Providers Care Spanish Medical Interpreter Name Role Phone Teressa Solis DO Primary Care Pro vider Unavailable Mina Pretty DO Primary Care Provider Ailyn Shweta Pretty MD Primary Care Provider Ora Diaz MD Primary Care Prov ider Jl Mendez MD Unavailable [phone] Jnanette Boudreaux MD Unavailable [phone] Tenisha Mendieta PA-C Unavailable Julio Monk PA-C Unavailable Luis Armando Eller MD Unavailable [phone] Jayesh Pineda MD Unavailable Kelsi Tejada MD Unavailable Unavailable Pretty Le MD Unavailable Vesta Michael PA-C Unavailable [facility] Unavailable Encounter Details Date Type Department Care Team Description 08/19/2019 Refill Gastroenterology [facility] 175 [facility] [address] [place] [address] Luis Armando Staton MD Social [...] on filedocumented in this encounter Care Teams Spanish Medical Interpreter Relationship Specialty Start Date End Date Teressa Solis DO PCP - General Internal Medicine 12/18/13 09/15/20 Mina Pretty DO PCP - General Internal Medicine 09/16/20 Shweta Bouchre MD PCP - General Internal Medicine 01/12/21 10/10/21 Ora Ronquillo MD [address] [place] [address] PCP - General Internal Medicine 10/11/21 Jl Mendez MD [address] [place] [address] Dr Montiel [address] [place] [address] Specialist Cardiovascular Disease 10/13/21 Jannette Boudreaux MD [address] [address] Surgeon Neurosurgery 04/07/22 Tenisha Mendieta PA-C [address] [address] Specialist Neurosurgery 04/07/22 Julio Monk PA-C [address] [address] Specialist Neurosurgery 04/07/22 Luis Armando Eller MD [address] [address] Specialist ORTHOPEDIC SURGERY 10/01/23 Jayesh Pineda MD 305 [place] [address] Specialist Endocrinology 10/01/23 Kelsi Tejada MD 305 [facility] [place] [address] Specialist Allergy & Immunology 10/01/23 Pretty Le MD 175 [facility] [address] [place] [address] Specialist Pulmonology 10/01/23 Vesta Michael PA-C 300 [facility] 210 [place] [address] Specialist Vascular Surgery 10/01/23 [facility] 46 [place] [address] Specialist Optometry 10/01/23 documented as of this encounter
--- OUTSIDE RECORDS SUMMARY | 2024-05-13 12:18 | XMS_ITS | Encounter Summary ---
Author Organization [facility] Address [address] [place] [address] Care Team Providers Care Plans Examiner Name Role Phone Teressa Solis DO Primary Care Pro vider Unavailable Mina Pretty DO Primary Care Provider Shweta Cronin MD Primary Care Provider Ora Diaz MD Primary Care Prov ider Jl Mendez MD Unavailable [phone] Jannette Boudreaux MD Unavailable [phone] Tenisha Mendieta PA-C Unavailable Julio Monk PA-C Unavailable [phone] Luis Armando Eller MD Unavailable [phone] Jayesh Pineda MD Unavailable Kelsi Tejada MD Unavailable Unavailable Pretty Le MD Unavailable Vesta Michael PA-C Unavailable [facility] Unavailable Reason for Visit * Reason Onset Date Comments Mychart Rx Refill 12/13/2019 Encounter Details Date Type Department Care Team Description 12/13/2019 Refill Adult Medicine [address] [address] Teressa Solis DO Mychart Rx Refill Social [...] Telephone Encounter - Lubna Thornton M.A. - 12/15/2019 12:19 PM EDT Lab Results Component Value Date NA 136 08/19/2019 K 3.7 08/19/2019 CO2 31 08/19/2019 CL 102 08/19/2019 BUN 10 08/19/2019 CREAT 0.69 08/19/2019 GLU 111 08/19/2019 CA 10.3 08/19/2019 GFR > 60 08/19/2019 Last appt 08/19/19 * Telephone Encounter - Lubna Thornton M.A. - 12/15/2019 8:10 AM EDT Lab Results Component Value Date NA 136 08/19/2019 K 3.7 08/19/2019 CO2 31 08/19/2019 CL 102 08/19/2019 BUN 10 08/19/2019 CREAT 0.69 08/19/2019 GLU 111 08/19/2019 CA 10.3 08/19/2019 GFR > 60 08/19/2019 documented in this encounter Plan of Treatment Not on file documented as of this encounter Visit Diagnoses Not on filedocumented in this encounter Care Teams Plans Examiner Relationship Specialty Start Date End Date Teressa Solis DO PCP - General Internal Medicine 12/18/13 09/15/20 Mina Pretty DO PCP - General Internal Medicine 09/16/20 1 Shweta Tellez MD PCP - General Internal Medicine 01/12/21 10/10/21 Ora Ronquillo MD [address] [place] [address] PCP - General Internal Medicine 10/11/21 Jl Mendez MD [address] [place] [address] Dr Montiel [address] [place] [address] Specialist Cardiovascular Disease 10/13/21 Jannette Boudreaux MD [address] [address] Surgeon Neurosurgery 04/07/22 Tenisha Mendieta PA-C [address] [address] Specialist Neurosurgery 04/07/22 Julio Monk PA-C [address] [address] Specialist Neurosurgery 04/07/22 Luis Armando Eller MD [address] [address] Specialist ORTHOPEDIC SURGERY 10/01/23 Jayesh Pineda MD 305 [place] [address] Specialist Endocrinology 10/01/23 Kelsi Tejada MD 305 [place] [address] Specialist Allergy & Immunology 10/01/23 Pretty Le MD 175 [facility] 200 [place] [address] Specialist Pulmonology 10/01/23 Vesta Michael PA-C 300 [facility] 210 [place] [address] Specialist Vascular Surgery 10/01/23 [facility] 46 [place] [address] Specialist Optometry 10/01/23 documented as of this encounter
--- OUTSIDE RECORDS SUMMARY | 2024-05-13 12:18 | XMS_ITS | Encounter Summary ---
Author Organization [facility] Address [address] [place] [address] Care Team Providers Care Roof Truss Machine Tender Name Role Phone Teressa Solis DO Primary Care Pro vider Unavailable Mina Pretty DO Primary Care Provider Shweta Cronin MD Primary Care Provider Ora Diaz MD Primary Care Prov ider Jl Mendez MD Unavailable Jannette Boudreaux MD Unavailable [phone] Tenisha Mendieta PA-C Unavailable [phone] Julio Monk PA-C Unavailable Luis Armando Eller MD Unavailable [phone] Jayesh Pineda MD Unavailable Klesi Tejada MD Unavailable Unavailable Pretty Le MD Unavailable Vesta Michael PA-C Unavailable [phone] [facility] Unavailable [phone] Encounter Details Date Type Department Care Team Description 04/25/2017 Hospital Medical Records [address] [place] [address] Jovanny Strange Social History Tobacco Use Types Packs/Day Years Used Date Smoking Tobacco: Never Smokeless Tobacco: Never Alcohol Use Standard Drinks/Week Comments No 0 (1 standard drink = 0.6 oz pur e alcohol) Education Answer Date Recorded What is the highest level of school you have completed or the highest degree you have received? 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, [employer], [employer]) 06/14/2020 Sex Assigned at Date Recorded Female 08/03/2020 10:16 PM EDT Job Start Date Occupation Industry Not on file Not on file Not on file documented as of this encounter Plan of Treatment Not on file documented as of this encounter Visit Diagnoses Not on filedocumented in this encounter Care Teams Roof Truss Machine Tender Relationship Specialty Start Date End Date Teressa Solis, PCP - General Internal Medicine 12/18/13 09/15/20 Mina Pretty DO PCP - General Internal Medicine 09/16/20 Shweta Boucher MD PCP - General Internal Medicine 01/12/21 10/10/21 Ora Ronquillo MD [address] [place] [address] PCP - General Internal Medicine 10/11/21 Jl Mendez MD [address] [place] [address] Dr Montiel [address] [place] [address] Specialist Cardiovascular Disease 10/13/21 Jannette Boudreaux MD [address] [address] Surgeon Neurosurgery 04/07/22 Tenisha Mendieta PA-C [address] [address] Specialist Neurosurgery 04/07/22 Julio Monk PA-C 175 [facility] [address] [place] [address] Specialist Neurosurgery 04/07/22 Luis Armando Eller MD [address] [address] Specialist ORTHOPEDIC SURGERY 10/01/23 Jayesh Pineda MD [address] [place] [address] Specialist Endocrinology 10/01/23 Kelsi Tejada MD [address] [place] [address] Specialist Allergy & Immunology 10/01/23 Pretty Le MD 175 [facility] [address] [place] [address] Specialist Pulmonology 10/01/23 Vesta Michael PA-C 300 [facility] 210 [place] [address] Specialist Vascular Surgery 10/01/23 [facility] [address] [place] [address] Specialist Optometry 10/01/23 documented as of this encounter
--- OUTSIDE RECORDS SUMMARY | 2024-05-13 12:18 | XMS_ITS | Encounter Summary ---
Author Organization [facility] Address [address] [place] [address] Care Team Providers Care Lease Out Worker Name Role Phone Teressa Solis DO Primary Care Pro vider Unavailable Mina Pretty DO Primary Care Provider Ailyn Shweta Pretty MD Primary Care Provider Ora Diaz MD Primary Care Prov ider Jl Mendez MD Unavailable [phone] Jannette Boudreaux MD Unavailable [phone] Tenisha Mendieta PA-C Unavailable Julio Monk PA-C Unavailable Luis Armando Eller MD Unavailable [phone] Jayesh Pineda MD Unavailable Kelsi Tejada MD Unavailable Unavailable Pretty Le MD Unavailable Vesta Michael PA-C Unavailable [facility] Unavailable Encounter Details Date Type Department Care Team Description 10/09/2019 Senior Javascript Engineer Report Medical Records [address] [place] [address] Bill Wills MD Social History Tobacco Use Types Packs/Day [...] on filedocumented in this encounter Care Teams Lease Out Worker Relationship Specialty Start Date End Date Teressa Solis DO PCP - General Internal Medicine 12/18/13 09/15/20 Mina Pretty DO PCP - General Internal Medicine 09/16/20 Shweta Boucher MD PCP - General Internal Medicine 01/12/21 10/10/21 Ora Ronquillo MD [address] [place] [address] PCP - General Internal Medicine 10/11/21 Jl Mendez MD [address] [place] [address] Specialist Cardiovascular Disease 10/13/21 Jannette Boudreaux MD [address] [address] Surgeon Neurosurgery 04/07/22 Tenisha Mendieta PA-C [address] [address] Specialist Neurosurgery 04/07/22 Julio Monk PA-C [address] [address] Specialist Neurosurgery 04/07/22 Luis Armando Eller MD [address] [address] Specialist ORTHOPEDIC SURGERY 10/01/23 Jayesh Pineda MD 305 [place] [address] Specialist Endocrinology 10/01/23 Kelsi Tejada MD 305 [place] [address] Specialist Allergy & Immunology 10/01/23 Pretty Le MD 175 [facility] [address] [place] [address] Specialist Pulmonology 10/01/23 Vesta Michael PA-C 300 [facility] [place] [facility] [address] [place] [address] Specialist Vascular Surgery 10/01/23 [facility] [address] [place] [address] Specialist Optometry 10/01/23 documented as of this encounter
--- OUTSIDE RECORDS SUMMARY | 2024-05-13 12:18 | XMS_ITS | Encounter Summary ---
Author Organization [facility] Address [address] [place] [address] Care Team Providers Care Shop Mechanic Helper Name Role Phone Teressa Solis DO Primary Care Pro vider Unavailable Mina Pretty DO Primary Care Provider Ailyn Shweta Pretty MD Primary Care Provider UnaOra Randall MD Primary Care Prov ider Jl Mendez MD Unavailable Jannette Boudreaux MD Unavailable [phone] Tenisha Mendieta PA-C Unavailable Julio Monk PA-C Unavailable Luis Armando Eller MD Unavailable [phone] Jayesh Pineda MD Unavailable Kelsi Tejada MD Unavailable Unavailable Pretty Le MD Unavailable Vesta Michael PA-C Unavailable [facility] Unavailable Encounter Details Date Type Department Care Team Description 03/25/2020 [place] [facility] [address] [address] Deborah Addison PA-C Social History [...] on filedocumented in this encounter Care Teams Shop Mechanic Helper Relationship Specialty Start Date End Date Teressa Solis DO PCP - General Internal Medicine 12/18/13 09/15/20 Mina Pretty DO PCP - General Internal Medicine 09/16/20 Shweta Boucher MD PCP - General Internal Medicine 01/12/21 10/10/21 Ora Ronquillo MD 444 [place] [address] PCP - General Internal Medicine 10/11/21 Jl Mendez MD [address] [place] [address] Dr Montiel [address] [place] [address] Specialist Cardiovascular Disease 10/13/21 Jannette Boudreaux MD [address] [address] Surgeon Neurosurgery 04/07/22 Tenisha Mendieta PA-C [address] [address] Specialist Neurosurgery 04/07/22 Julio Monk PA-C 175 [facility] [address] [place] [address] Specialist Neurosurgery 04/07/22 Luis Armando Eller MD [address] [address] Specialist ORTHOPEDIC SURGERY 10/01/23 Jayesh Pineda MD 305 [place] [address] Specialist Endocrinology 10/01/23 Kelsi Tejada MD 305 [place] [address] Specialist Allergy & Immunology 10/01/23 Pretty Le MD 175 [facility] [address] [place] [address] Specialist Pulmonology 10/01/23 Vesta Michael PA-C 300 [facility] 210 [place] [address] Specialist Vascular Surgery 10/01/23 [facility] 46 [place] [address] Specialist Optometry 10/01/23 documented as of this encounter
--- OUTSIDE RECORDS SUMMARY | 2024-05-13 12:18 | XMS_ITS | Encounter Summary ---
Author Organization [facility] Address [address] [place] [address] Care Team Providers Care Family Manager Name Role Phone Teressa Solis DO Primary Care Pro vider Unavailable Mina Pretty DO Primary Care Provider Shweta Cronin MD Primary Care Provider Ora Diaz MD Primary Care Prov ider Jl Mendez MD Unavailable [phone] Jannette Boudreaux MD Unavailable [phone] Tenisha Mendieta PA-C Unavailable [phone] Julio Monk PA-C Unavailable [phone] Luis Armando Eller MD Unavailable [phone] Jayesh Pineda MD Unavailable Kelsi Tejada MD Unavailable Unavailable Pretty Le MD Unavailable Vesta Michael PA-C Unavailable [phone] [facility] Unavailable Encounter Details Date Type Department Care Team Description 02/03/2020 Informal Waiter/Waitress Report Medical Records [address] [place] [address] Randy Domínguez MD Social History Tobacco Use [...] have Coronavirus / COVID-19? No / Unsure 01/09/2020 8:15 AM EDT documented as of this encounter Plan of Treatment Not on file documented as of this encounter Visit Diagnoses Not on filedocumented in this encounter Care Teams Family Manager Relationship Specialty Start Date End Date Teressa Solis DO PCP - General Internal Medicine 12/18/13 09/15/20 Mina Pretty DO PCP - General Internal Medicine 09/16/20 Shweta Boucher MD PCP - General Internal Medicine 01/12/21 10/10/21 Ora Ronquillo MD [address] [place] [address] PCP - General Internal Medicine 10/11/21 Jl Mendez MD [address] [place] [address] Dr Mont[address] [place] [address] Specialist Cardiovascular Disease 10/13/21 Jannette Boudreaux MD [address] [address] Surgeon Neurosurgery 04/07/22 Tenisha Mendieta PA-C [address] [address] Specialist Neurosurgery 04/07/22 Julio Monk PA-C [address] [address] Specialist Neurosurgery 04/07/22 Luis Armando Eller MD [address] [address] Specialist ORTHOPEDIC SURGERY 10/01/23 Jayesh Pineda MD [address] [place] [address] [place] [address] Specialist Endocrinology 10/01/23 Kelsi Tejada MD 305 [place] [address] Specialist Allergy & Immunology 10/01/23 Pretty Le MD 175 [facility] [address] [place] [address] Specialist Pulmonology 10/01/23 Vesta Michael PA-C 300 [facility] 210 [place] [address] Specialist Vascular Surgery 10/01/23 [facility] 46 [place] [address] Specialist Optometry 10/01/23 documented as of this encounter
== END 2024-05-13 11:13 | disposition home or self-care (01) ==
LOC: HO.HBST 10:14
PROVIDERS: PCP Internal Medicine; Visit Provider Counselor Mental Health
DX: F33.1 Major depressive disorder, recurrent, moderate (principal); F41.0 Panic disorder [episodic paroxysmal anxiety]; F43.9 Reaction to severe stress, unspecified
CPT/HCPCS: 90837

== ENCOUNTER 2024-05-20 09:41 | Outpatient (REF) | payer OTHER, SELFPAY ==
--- NOTE | ~2024-05-20 | US_ITS ---
EXAMINATION: US ABDOMEN COMPLETE WITH LIVER ELASTOGRAPHY HISTORY: E66.01 - Morbid (severe) obesity due to excess calories TECHNIQUE: Real-time grayscale ultrasound imaging of the abdomen was performed and images were reviewed. COMPARISON: Comparison is made with the prior examination dated 03/16/2020. FINDINGS: Liver: The right lobe of the liver measures 17.0 cm in size. The left lobe of the liver measures 12.2 cm in size. The liver demonstrates increased echotexture, consistent with steatosis. No focal mass or intrahepatic biliary ductal dilatation is identified. There is normal hepatopedal flow in the portal vein. Ultrasound elastography of the liver was performed with 10 separate measurements of the liver parenchyma with the patient in the supine position. Measurements were obtained approximately 2 cm below Thomas's capsule and perpendicular to the capsule. Images are of limited quality due to the sample depth. The median shear wave velocity is 1.23 m/s (previously 1.29 m/s). The interquartile range/median (IQR/median) is 0.18. Gallbladder and biliary tree: The gallbladder is unremarkable, without evidence of calculi, wall thickening, or pericholecystic fluid. There is no sonographic Anaya sign. The common bile duct is normal in caliber measuring 4 mm. Kidneys: The right kidney measures 12.6 cm in length. The left kidney measures 12.4 cm in length. There are multiple nonobstructing calculi in both kidneys measuring up to 4 mm on the right and 5 mm in the left. There is no hydronephrosis. There are multiple bilateral echogenic masses consistent with angiomyolipomas. These measure up to 2.3 cm on the right and 1.7 cm on the left. Pancreas: The pancreatic head, neck, and body are unremarkable. The pancreatic tail is obscured by bowel gas. Spleen: The spleen is normal in size and contour, measuring 11.8 cm in length. Abdominal aorta and inferior vena cava: The visualized portions of the abdominal aorta and inferior vena cava are normal in caliber. There is no free fluid in the abdomen. US/US abdomen comp w elastography IMPRESSION: 1. Hepatomegaly and hepatic steatosis. 2. Multiple bilateral renal angiomyolipomas as seen previously. The median shear wave velocity in the liver is 1.23 m/s, corresponding to a median liver stiffness of 4.67 kPa. The IQR/median value is 0.18. This is indicative of a poor quality data set, and the estimated liver stiffness may be unreliable. Findings are indicative of a normal elastography value with a low likelihood of severe fibrosis or cirrhosis. REFERENCE: Society of Radiologists in Ultrasound Liver Stiffness Thresholds (2020): LIVER STIFFNESS THRESHOLDS: *Shear wave velocity less than 1.3 m/s (Liver Stiffness equal or less than 5 kPa): High probability of being normal. *Shear wave velocity less than 1.7 m/s (Liver Stiffness less than 9 kPa): In the absence of other known clinical signs, rules out compensated advanced chronic liver disease. *Shear wave velocity between 1.7-2.1 m/s (Liver Stiffness 9-13 kPa): Suggestive of compensated advanced chronic liver disease but need further test for confirmation. *Shear wave velocity between 2.1-2.4 m/s (Liver Stiffness 13-17 kPa): Rules in compensated advanced chronic liver disease. *Shear wave velocity greater than 2.4 m/s (Liver Stiffness over 17 kPa): Suggestive of clinically significant portal hypertension. QUALITY OF DATA SET: *IQR/Median value equal or less than 0.15 implies a quality data set. *IQR/Median value over 0.15 implies a poor quality data set. SIGNIFICANT CHANGE FROM PRIOR EXAM: Significant change if liver stiffness measurement is 10% or greater from prior exam. OTHER CONSIDERATIONS: The stage of liver fibrosis may be overestimated in the setting of acute hepatitis, liver inflammation, elevated liver function tests, hepatic vascular congestion, obstructive cholestasis, non-fasting state, and infiltrative diseases such as amyloidosis and lymphoma. In some patients with NAFLD, the liver stiffness thresholds for compensated advanced chronic liver disease may be lower. In causes other than viral hepatitis and NAFLD, liver stiffness thresholds are not well established. Electronically signed by: Mina Rao MD 05/20/2024 12:24 PM EDT
--- OUTSIDE RECORDS SUMMARY | 2024-05-20 10:56 | XMS_ITS | Clinical Summary ---
Author Organization [facility] Address [address] [place] [address] Care Team Providers Care Sports Statistician Name Role Phone Ora Sweeney MD Primary [...] route 2 times daily. Active blood-glucose meter [facility] Use to test blood sugars once daily [...] Future Anxiety and depression 06/14/2020 Overview (12/16/2023): [facility] psychiatry Asthma, moderate persistent 05/10/2020 Overview [...] requirements Supply letter has been sent to [facility] care Return to clinic in 1 year [...] 4:30 PM EST Office Visit Adult Medicine [address] [phone] Chuck Felix MD Sore throat (Primary Dx); Loss of voice 05/05/2024 Telephone Adult Medicine [address] [phone] Ora Naylor MD Sore Throat (/) 04/25/2024 9:53 AM EST - 04/25/2024 11:59 PM EST Hospital Encounter XRAY [address] [phone] SOB (shortness of breath) Discharge Disposition: Home or Self Care 04/25/2024 9:00 AM EST Office Visit Adult Medicine [address] [phone] Zeina Reece MD SOB (shortness of breath) (Primary Dx); Asthma-chronic obstructive pulmonary disease overlap syndrome (CMS/HCC); Primary hypertension; Sore throat; URI, acute; Bacterial conjunctivitis of both eyes 04/24/2024 Telephone Adult Medicine [address] [phone] Ora Naylor MD Flu Symptoms 04/11/2024 9:45 AM EST Office Visit Endocrinology [address] [phone] Jayesh Pineda MD Type 2 diabetes mellitus with other specified complication, without long-term current use of insulin (CMS/HCC) (Primary Dx); Hyperparathyroidism (CMS/HCC); Hypothyroidism, unspecified type 04/03/2024 9:45 AM EST Office Visit Orthopedic Surgery [facility] 250 175 [facility] 250 [place] [address] Duke Dunn DPM Controlled type 2 diabetes with neuropathy (CMS/HCC) (Primary Dx); PVD (peripheral vascular disease) (CMS/HCC); Pain in both feet; Difficulty walking; Dermatophytosis, nail 03/27/2024 10:00 AM EST Treatment [facility] [address] [address] Chema Martins, OT Rotator cuff tear arthropathy of left shoulder (Primary Dx) 03/26/2024 9:45 AM EST Office Visit Orthopedic Surgery - [place] 160 175 [facility] 160 [place] [phone] Luis Armando Eller MD S/P left rotator cuff repair (Primary Dx) 03/25/2024 9:00 AM EST Treatment [facility] [address] [address] Lisa Jones, DEL RIO 03/20/2024 11:00 AM EST Treatment [facility] [address] [phone] Chema Martins, OT Rotator cuff tear arthropathy of left shoulder (Primary Dx) 03/18/2024 1:00 PM EST Treatment [facility] [address] [phone] Lisa Jones, DEL RIO 03/13/2024 9:30 AM EST Treatment [facility] [address] [phone] Morris Melo COTA/Raul Rotator cuff tear arthropathy of left shoulder (Primary Dx) 03/11/2024 9:30 AM EST Treatment [facility] [address] [phone] Lisa Jones COTA Rotator cuff tear arthropathy of left shoulder (Primary Dx) 03/06/2024 9:30 AM EST Treatment [facility] [address] [address] Lisa Jones COTA Rotator cuff tear arthropathy of left shoulder (Primary Dx); S/P left rotator cuff repair 03/04/2024 8:45 AM EST Treatment [facility] [address] [phone] Lisa Jones, DEL RIO 02/28/2024 9:00 AM EST Treatment [facility] [address] [phone] Chema Martins OT Rotator cuff tear arthropathy of left shoulder (Primary Dx) 02/27/2024 9:30 AM EST Office Visit Orthopedic Surgery - [place] 160 175 [facility] 160 [place] [phone] Genny Arreguin PA Post-operative state (Primary Dx); S/P left rotator cuff repair 02/20/2024 9:45 AM EST Treatment [facility] [address] [phone] Morris Melo COTA/Raul Rotator cuff tear arthropathy [...] Date Site/Laterality Comments KNEE ARTHROSCOPY Right PROCEDURE: WY ARTHROSCOPY KNEE DIAGNOSTIC W/WO SYNOVIAL BX SPX WISDOM TOOTH EXTRACTION PROCEDURE: HISTORICAL WISDOM TEETH EXTRACTION TONSILLECTOMY PROCEDURE: HISTORICAL TONSILLECTOMY; COMMENT: and adenoids SECTION PROCEDURE: HISTORICAL DELIVERY OTHER SURGICAL HISTORY PROCEDURE: WY BIOPSY THYROID PERCUTANEOUS CORE NEEDLE COLONOSCOPY 12/10/2012 PROCEDURE: HISTORICAL COLONOSCOPY; COMMENT: normal; repeat in 3 yrs. sig. hyperplastic polyp OTHER SURGICAL HISTORY PROCEDURE: CYSTOSCOPY/SURG, URETHRA/BLAD NECK; COMMENT: sling procedure for stress incontinence OTHER SURGICAL HISTORY 08/25/2015 Right PROCEDURE: WY EXCISION NAIL MATRIX PERMANENT REMOVAL; COMMENT: right hallux Dr. Rangel COLONOSCOPY 01/31/2016 PROCEDURE: HISTORICAL COLONOSCOPY; COMMENT: 3 small polyps removed- dist.asc =tubular adenoma x 1; other nl tissue. COLONOSCOPY 09/29/2019 PROCEDURE: HISTORICAL COLONOSCOPY; COMMENT: 5 mm ascending colon polyp: Tubular adenoma. UPPER GASTROINTESTINAL ENDOSCOPY 09/29/2019 PROCEDURE: WY UPPER GI ENDOSCOPY PERFORMED; COMMENT: Visually normal on PPI treatment. ESOPHAGOGASTRODUODENOSCOPY 09/22/2021 PROCEDURE: WY EGD TRANSORAL BIOPSY SINGLE/MULTIPLE; COMMENT: EGD including biopsy normal OTHER SURGICAL HISTORY PROCEDURE: HISTORY OTHER; COMMENT: Maxillofacial surgery EXCISION BENIGN SKIN LESION TRUNK / ARM / LEG PROCEDURE: WY EXCISION TUMOR SOFT TISSUE BACK/FLANK SUBQ <3CM; [...] (BMI) of 40.0 to 44.9 in adult ([facility]) 07/15/2019 DX:Class 3 severe obesity du e to excess calories with serious comorbidity and body mass index (BMI) of 40.0 to 44.9 in adult ([facility]) Diabetes mellitus type 2, co ntrolled, without complications ([facility]) 02/16/2021 DX:Diabetes mellitus t ype 2, controlled, without complications ([facility]) Mild concentric left ventric ular hypertrophy [...] left upper extremity Shingles DX:Shingles Diabetes mellitus ([facility]) DX:D iabetes mellitus ([facility]) HLD (hyperlipidemia) 11/21/2021 DX:HLD (hyp erlipidemia) VIRGIE on CPAP DX:VIRGIE on CPAP Depression DX:Depression Overactive bladder DX:Overactive bladder Obesity with alveolar hypove ntilation ([facility]) DX:Obesity with alveolar hypoventilation (HCC) Morbid obesity with BMI of 4 0.0-44.9, adult ([facility]) DX:Morbid obesity with BMI o f 40.0-44.9, adult ([facility]) Asthma-chronic obstructive p ulmonary disease overlap syndrome ([facility]) 01/30/2022 DX:Asthma-chronic o bstructive pulmonary disease overlap syndrome (HCC) Family History Medical History Relation Name Comments Breast cancer Aunt 1 maternal x 1 Ovarian cancer Aunt 2 maternal x 6 6 maternal au nts also with ov, uterine ca Glaucoma Brother x 2 Coronary artery disease Father [place] a ge 68, HTN, Diabetes, cataract, glaucoma [...] your loved ones. For example, child welfare assistant or elderly care for an older [...] 9:45 AM EDT Office Visit Adult Medicine [address] [phone] Ora Sweeney MD [address] [place] [address] 06/04/2024 11:45 AM EDT Office Visit Orthopedic Surgery - [place] [address] [phone] Luis Armando Eller MD [address] [address] 06/05/2024 9:45 AM EDT Office Visit Orthopedic Surgery [address] [phone] Duke Dunn, DPM [address] [address] 06/06/2024 2:30 PM EDT Office Visit Obstetrics and Gynecology - [address] [phone] Stacie Martinez, [facility] [address] [place] [address] 06/09/2024 1:00 PM EDT Consult Bariatric Surgery [address] [phone] Rose Park MD [address] [address] 06/30/2024 10:30 AM EDT Office Visit Orthopedic Surgery [address] [phone] Luis Armando Eller MD [address] [address] 07/02/2024 9:30 AM EDT Office Visit Orthopedic Surgery [address] [phone] Lorie Moore NP [address] [address] 07/09/2024 9:30 AM EDT Office Visit Endocrinology - [address] [phone] Jayesh Pineda MD 5 [place] [address] 09/22/2024 8:45 AM EDT Office Visit Pulmonolgy - [place] [address] [address] Pretty Le MD [address] [address] Health Maintenance Due Date Last Done Comments Diabetes: Annual Retina Eye Exam 1968 RSV Immunization Patients 60+ Years Old (1 - Risk 60-74 years 1-dose series) 2018 Zoster Vaccines (2 of 2) 02/23/2023 12/29/2022 COVID-19 Vaccine ( - season) 2023 12/29/2022, 05/18/2021, 09/21/2020, Additional history [...] 39 AM EST Sore throat URI, acute [id number], RSV, FLU A AND B QUALITATIVE RT-PCR, [...] OR DERABLES Edited Result - Final * [id number], RSV, Influenza A and B qualitative RT-PCR (04/25/2024 10:34 AM EST) SARS COV-2 Not Detected Not Detected LAB MOLECULAR DIAGNOSTICS METHOD 04/25/2024 4:13 PM EST [facility] Influenza A PCR Not Detected Not Detected LAB MOLECULAR DIAGNOSTICS METHOD 04/25/2024 4:13 PM EST [facility] Influenza B PCR Not Detected Not Detected LAB MOLECULAR DIAGNOSTICS METHOD 04/25/2024 4:13 PM EST [facility] RSV PCR Not Detected Not Detected LAB MOLECULAR DIAGNOSTICS METHOD 04/25/2024 4:13 PM EST [facility] Swab Nasopharyngeal structure / Unknown Non-blood Collection / Unknown 04/25/2024 10:34 AM EST 04/25/2024 10:34 AM EST us Zeina Reece MD LAB MICROBIOLOGY - GENERAL ORDERABLES Final Result [facility] [address] [place] [address], * XR Chest 2 Views (04/25/2024 10:10 AM EST) Anatomical Region Laterality Modality Body Radiographic Ivy ging 04/25/2024 1:15 PM EST Impressions 04/25/2024 1:15 PM EST No acute cardiopulmonary process. -------- FINAL REPORT -------- Dictated By: Malathi Pak Dictated Date: 04/25/2024 13:15 ET Assigned Physician: Malathi Pak Reviewed and Electronically Signed By: Malathi Pak Signed Date: 04/25/2024 13:15 ET Workstation ID: [id number] Transcribed By: Self Edit Transcribed Date: 04/25/2024 [...] Signed Date: 04/25/2024 13:15 ET Workstation ID: [id number] Transcribed By: Self Edit Transcribed Date: 04/25/2024 13:15 ET Result [facility] Zeina Reece MD IMG XR PROCEDURES Final Res ult * MR Brain wo Contrast (02/29/2024 2:48 PM EST) Anatomical Region Laterality Modality Head and Neck Magnetic Resonan ce Result [facility] Nitesh ESPITIA IMG MRI PROCEDURES Final Result * (ABNORMAL) Hemoglobin A1c (11/26/2023) [facility] Hemoglobin A1C 7.4(A) <=6.5 % Blood Venous blood specimen / Unknown Result [facility] Nitesh ESPITIA LAB BLOOD ORDERABLES Soni l Result * Annual BMP Blood Test (11/23/2023) [facility] Annual BMP Blood Test Abstracted Result [facility] Provider HEALTH MAINTENANCE Final Result * Urine Albumin Creatinine Ratio (10/04/2023) [facility] Urine Albumin Creatinine Ratio Abstracted Result [facility] HEALTH MAINTENANCE Final Result * (ABNORMAL) Lipid panel (10/04/2023) [facility] LDL/HDL Ratio 4 0 - 4 Triglycerides 173(A) 0 - 150 mg/dL Cholesterol 146 0 - 200 mg/dL HDL 39(A) >=40 mg/dL LDL Cholesterol 73 0 - 100 mg/dL Blood Venous blood specimen / Unknown Result [facility] LAB BLOOD ORDERABLES Soni l Result * Falls Risk Assessment (10/01/2023) [facility] Falls Risk Assessment Abstracted Result [facility] Final Result * Depression Screening (10/01/2023) [facility] Depression Screening Abstracted Result [facility] Final Result * Diabetes Foot Exam (10/01/2023) [facility] Diabetes: Annual Foot Exam Abstracted Result [facility] Final Result * SCREENING MAMMOGRAPHY BI 2-VIEW [...] * Cervical Cancer Screening: HPV (04/11/2021) Pathologist [facility] Cervical Cancer Screening: HPV No interpreta tion,abstr [...] classified as having normal bone density. [facility] Department of Internal Medicine recommends using [...] beclassified as having normal bone density. [facility] Department of Internal Medicine recommendsusing National [...] DXA PROCEDURES Final Result * Colonoscopy (09/29/2019) [facility] Colonoscopy No interpreta tion,abstr acted Anatomical Region Laterality Modality Other Historical Provider HEALTH MAINTENANCE Final Result * Hepatitis C Screening (09/22/2014) [facility] Hepatitis C Screening Abstracted [facility] Provider HEALTH MAINTENANCE Final Result from Last 3 Months or Most Recently Relevant to Health Maintenance Insurance [employer]AGE Care Teams Sports Statistician Relationship Specialty Start Date End Date Ora Sweeney MD [address] [place] [address] PCP - General Internal Medicine 01/09/24
--- OUTSIDE RECORDS SUMMARY | 2024-05-20 10:57 | XMS_ITS | Encounter Summary ---
Author Organization [facility] Address [address] [place] [address] Care Team Providers Care Boiler Out Name Role Phone Ora Ronquillo MD Primary Care Prov ider Jl Mendez MD Unavailable Jannette Boudreaux MD Unavailable [phone] Tenisha Mendieta PA-C Unavailable Julio Monk PA-C Unavailable Luis Armando Eller MD Unavailable [phone] Jayesh Pineda MD Unavailable Kelsi Tejada MD Unavailable Unavailable Pretty Le MD Unavailable Vesta Michael PA-C Unavailable [phone] [facility] Unavailable [phone] Encounter Details Date Type Department Care Team Description 11/25/2022 [facility] Adult Medicine [address] [address] Jayesh Pineda MD [address] [place] [address] [id number] Social History Tobacco Use Types Packs/Day Years Used Date Smoking Tobacco: Never Smokeless Tobacco: Never Alcohol Use Standard Drinks/Week Comments No 0 (1 standard drink = 0.6 oz pur e alcohol) Education Answer Date Recorded What is the highest level of school you have completed or the highest degree you have received? 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, SENIOR ART DIRECTOR, CHANDRAKANT) 06/14/2020 Sex Assigned at Date [...] on filedocumented in this encounter Care Teams Boiler Out Relationship Specialty Start Date End Date Ora Ronquillo MD [address] [place] [address] PCP - General Internal Medicine 10/11/21 Jl Mendez MD [address] [place] [address] Dr Mont[address] [place] [address] Specialist Cardiovascular Disease 10/13/21 Jannette Boudreaux MD [address] [address] Surgeon Neurosurgery 04/07/22 Tenisha Mendieta PA-C [address] [address] Specialist Neurosurgery 04/07/22 Julio Monk PA-C 175 [facility] 300 [place] [address] Specialist Neurosurgery 04/07/22 Luis Armando Eller MD 175 [facility] 250 [place] [address] Specialist ORTHOPEDIC SURGERY 10/01/23 Jayesh Pineda MD 305 [place] [address] Specialist Endocrinology 10/01/23 Kelsi Tejada MD 305 [place] [address] Specialist Allergy & Immunology 10/01/23 Pretty Le MD 175 [facility] 200 [place] [address] Specialist Pulmonology 10/01/23 Vesta Michael PA-C 300 [facility] 210 [place] [address] Specialist Vascular Surgery 10/01/23 [facility] 46 [place] [address] Specialist Optometry 10/01/23 documented as of this encounter
--- OUTSIDE RECORDS SUMMARY | 2024-05-20 10:57 | XMS_ITS | Encounter Summary ---
Author Organization [facility] Address [address] [place] [address] Care Team Providers Care Film Booker Name Role Phone Geno Cueva MD Primary Care Provider Unavailable Teressa Solis DO Primary Care Pro vider Unavailable Mina Pretty DO Primary Care Provider Ailyn Shweta Pretty MD Primary Care Provider Ora Diaz MD Primary Care Prov ider Jl Mendez MD Unavailable [phone] Jannette Boudreaux MD Unavailable [phone] Tenisha Mendieta PA-C Unavailable [phone] Julio Monk PA-C Unavailable Luis Armando Eller MD Unavailable [phone] Jayesh Pineda MD Unavailable Kelsi Tejada MD Unavailable Unavailable Pretty Le MD Unavailable Vesta Michael-Pina Unavailable [phone] [facility] Unavailable [phone] Encounter Details Date Type Department Care Team Description 01/02/2013 Hospital Medical Records [address] [place] [address] Zoltan Chu Social History Tobacco Use Types Packs/Day Years Used Date Smoking Tobacco: Never Smokeless Tobacco: Never Alcohol Use Standard Drinks/Week Comments No 0 (1 standard drink = 0.6 oz pur e alcohol) Education Answer Date Recorded What is the highest level of school you have completed or the highest degree you have received? 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, ACCOUNT SERVICES REPRESENTATIVE, CHANDRAKANT) 06/14/2020 Sex Assigned at Date Recorded Female 08/03/2020 10:16 PM EDT Job Start Date Occupation Industry Not on file Not on file Not on file documented as of this encounter Plan of Treatment Not on file documented as of this encounter Visit Diagnoses Not on filedocumented in this encounter Care Teams Film Booker Relationship Specialty Start Date End Date Geno Cueva MD PCP - General Internal Medicine 06/28/1212/17/13 Teressa Solis, DO PCP - General Internal Medicine 12/18/13 09/15/20 Mina Pretty, PCP - General Internal Medicine 09/16/20 1 Shweta Tellez MD PCP - General Internal Medicine 01/12/21 10/10/21 Ora Ronquillo MD [address] [place] [address] PCP - General Internal Medicine 10/11/21 Jl Mendez MD [address] [place] [address] Dr Montiel [address] [place] [address] Specialist Cardiovascular Disease 10/13/21 Jannette Boudreaux MD [address] [address] Surgeon Neurosurgery 04/07/22 Tenisha Mendieta PA-C [address] [address] Specialist Neurosurgery 04/07/22 Julio Monk PA-C 175 [facility] [address] [place] [address] Specialist Neurosurgery 04/07/22 Luis Armando Eller MD [address] [address] Specialist ORTHOPEDIC SURGERY 10/01/23 Jayesh Pineda MD 305 [place] [address] Specialist Endocrinology 10/01/23 Kelsi Tejada MD 305 [place] [address] Specialist Allergy & Immunology 10/01/23 Pretty Le MD 175 [facility] [address] [place] [address] Specialist Pulmonology 10/01/23 Vesta Michael PA-C 300 [facility] 210 [place] [address] Specialist Vascular Surgery 10/01/23 [facility] 46 [place] [address] Specialist Optometry 10/01/23 documented as of this encounter
--- OUTSIDE RECORDS SUMMARY | 2024-05-20 10:57 | XMS_ITS | Encounter Summary ---
Author Organization [facility] Address [address] [place] [address] Care Team Providers Care Hr Administrator Name Role Phone Teressa Solis DO Primary Care Pro vider Unavailable Mina Pretty DO Primary Care Provider Shweta Cronin MD Primary Care Provider Ora Diaz MD Primary Care Prov ider Jl Mendez MD Unavailable [phone] Jannette Boudreaux MD Unavailable [phone] Tenisha Mendieta PA-C Unavailable Julio Monk PA-C Unavailable Luis Armando Eller MD Unavailable [phone] Jayesh Pineda MD Unavailable Kelsi Tejada MD Unavailable Unavailable Pretty Le MD Unavailable Vesta Michael PA-C Unavailable [phone] [facility] Unavailable Encounter Details Date Type Department Care Team Description 01/11/2016 Senior Accounts Payable Clerk Report Medical Records 4 [place] [address] Jeff Ogden MD Social History Tobacco Use [...] on filedocumented in this encounter Care Teams Hr Administrator Relationship Specialty Start Date End Date Teressa Solis DO PCP - General Internal Medicine 12/18/13 09/15/20 Mina Pretty DO PCP - General Internal Medicine 09/16/20 Shweta Boucher MD PCP - General Internal Medicine 01/12/21 10/10/21 Ora Ronquillo MD [address] [place] [address] PCP - General Internal Medicine 10/11/21 Jl Mendez MD [address] [place] [address] Specialist Cardiovascular Disease 10/13/21 Jannette Boudreaux MD [address] [address] Surgeon Neurosurgery 04/07/22 Tenisha Mendieta PA-C [address] [address] Specialist Neurosurgery 04/07/22 Juloi Monk PA-C [address] [address] Specialist Neurosurgery 04/07/22 Luis Armando Eller MD [address] [address] Specialist ORTHOPEDIC SURGERY 10/01/23 Jayesh Pineda MD 305 [place] [address] Specialist Endocrinology 10/01/23 Kelsi Tejada MD 305 [place] [address] Specialist Allergy & Immunology 10/01/23 Pretty Le MD 175 [facility] [address] [place] [address] Specialist Pulmonology 10/01/23 Vesta Michael PA-C 300 [facility] 210 [place] [address] Specialist Vascular Surgery 10/01/23 [facility] 46 [place] [address] Specialist Optometry 10/01/23 documented as of this encounter
--- OUTSIDE RECORDS SUMMARY | 2024-05-20 10:57 | XMS_ITS | Encounter Summary ---
Author Organization [facility] Address [address] [place] [address] Care Team Providers Care Account Administrator Name Role Phone Teressa Solis DO Primary Care Pro vider Unavailable Mina Pretty DO Primary Care Provider Ailyn Shweta Pretty MD Primary Care Provider Ora Diaz MD Primary Care Prov ider Jl Mendez MD Unavailable Jannette Boudreaux MD Unavailable [phone] Tenisha Mendieta PA-C Unavailable Julio Monk PA-C Unavailable [phone] Luis Armando Eller MD Unavailable [phone] Jayesh Pineda MD Unavailable Kelsi Tejada MD Unavailable Unavailable Pretty Le MD Unavailable Vesta Michael PA-C Unavailable [phone] [facility] Unavailable Encounter Details Date Type Department Care Team Description 08/31/2020 Refill Gastroenterology [facility] 175 [facility] [address] [place] [address] Luis Armando Staton MD Social [...] 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, VELVET WEAVER, CHANDRAKANT) 06/14/2020 Sex Assigned at Date Recorded [...] filedocumented in this encounter Care Teams Account Administrator Relationship Specialty Start Date End Date Teressa Solis, PCP - General Internal Medicine 12/18/13 09/15/20 Mina Pretty DO PCP - General Internal Medicine 09/16/20 1 Shweta Tellez MD PCP - General Internal Medicine 01/12/21 10/10/21 Ora Ronquillo MD [address] [place] [address] PCP - General Internal Medicine 10/11/21 Jl Mendez MD [address] [place] [address] [place] [address] Specialist Cardiovascular Disease 10/13/21 Jannette Boudreaux MD 175 [facility] [address] [place] [address] Surgeon Neurosurgery 04/07/22 Tenisha Mendieta PA-C [address] [facility] 300 [place] [address] Specialist Neurosurgery 04/07/22 Julio Monk PA-C 175 [facility] 300 [place] [address] Specialist Neurosurgery 04/07/22 Luis Armando Eller MD [address] [facility] 250 [place] [address] Specialist ORTHOPEDIC SURGERY 10/01/23 Jayesh Pineda MD 305 [place] [address] Specialist Endocrinology 10/01/23 Kelsi Tejada MD 305 [place] [address] Specialist Allergy & Immunology 10/01/23 Pretty Le MD 175 [facility] 200 [place] [address] Specialist Pulmonology 10/01/23 Vesta Michael PA-C 300 [facility] 210 [place] [address] Specialist Vascular Surgery 10/01/23 [facility] 46 [place] [address] Specialist Optometry 10/01/23 documented as of this encounter
--- OUTSIDE RECORDS SUMMARY | 2024-05-20 10:57 | XMS_ITS | Encounter Summary ---
Author Organization [facility] Address [address] [place] [address] Care Team Providers Care Mathematical Statistician Name Role Phone Ora Ronquillo MD Primary Care Prov ider Jl Mendez MD Unavailable Jannette Boudreaux MD Unavailable [phone] Tenisha MendietaC Unavailable Julio Monk-C Unavailable [phone] Luis Armando Eller MD Unavailable [phone] Jayesh Pineda MD Unavailable Kelsi Tejada MD Unavailable Unavailable Pretty Le MD Unavailable Vesta Michael PA-C Unavailable [facility] Unavailable Reason for Referral * EXTERNAL (Routine) - Authorized/Booked Specialty Diagnoses / Procedures Referred By Contstella castillo Referred To Contact Dermatology Procedures REFERRAL TO DERMATOLOGY Ora Ronquillo MD [address] [place] [address] Ezio Marr 125 [facility] [address] [place] [address] Referral ID Status Reason Start Date Expiration Date V isits Requested Visits Authorized [id number] Authorized/B ooked 08/21/2022 11/21/2022 1 1 Reason for Visit * Reason Onset Date Comments 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 08/21/2022 REFERRAL TO DERM ATOLOGY Encounter Details Date Type Department Care Team Description 08/21/2022 Telephone Adult Medicine [facility] [address] [place] [address] Ora Ronquillo MD [address] [place] [address] 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 (REFERRAL TO DERMATOLOGY) Social History Tobacco Use Types Packs/Day Years Used Date Smoking Tobacco: Never Smokeless Tobacco: Never Alcohol Use Standard Drinks/Week Comments No 0 (1 standard drink = 0.6 oz pur e alcohol) Education Answer Date Recorded What is the highest level of school you have completed or the highest degree you have received? 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 The pt was referred to [facility] but they don't work with the pt's insurance and the pt needs a new referral. Thank you, Chris documented in this encounter Plan of Treatment Not on file documented as of this encounter Visit Diagnoses Not on filedocumented in this encounter Care Teams Mathematical Statistician Relationship Specialty Start Date End Date Ora Ronquillo MD [address] [place] [address] PCP - General Internal Medicine 10/11/21 Jl Mendez MD [address] [place] [address] Dr Mont[address] [place] [address] Specialist Cardiovascular Disease 10/13/21 Jannette Boudreaux MD 175 [facility] 300 [place] [address] Surgeon Neurosurgery 04/07/22 Tenisha Mendieta PA-C [address] [address] Specialist Neurosurgery 04/07/22 Julio Monk PA-C 175 [facility] 300 [place] [address] Specialist Neurosurgery 04/07/22 Luis Armando Eller MD 175 [facility] 250 [place] [address] Specialist ORTHOPEDIC SURGERY 10/01/23 Jayesh Pineda MD 305 [place] [address] Specialist Endocrinology 10/01/23 Kelsi Tejada MD 305 [place] [address] Specialist Allergy & Immunology 10/01/23 Pretty Le MD 175 [facility] [address] [place] [address] Specialist Pulmonology 10/01/23 Vesta Michael PA-C 300 [facility] 210 [place] [address] Specialist Vascular Surgery 10/01/23 [facility] 46 [place] [address] Specialist Optometry 10/01/23 documented as of this encounter
--- OUTSIDE RECORDS SUMMARY | 2024-05-20 10:57 | XMS_ITS | Encounter Summary ---
Author Organization [facility] Address [address] [place] [address] Care Team Providers Care Cook Relief Name Role Phone Teressa Solis DO Primary Care Pro vider Unavailable Mina Pretty DO Primary Care Provider Shweta Cronin MD Primary Care Provider Ora Diaz MD Primary Care Prov ider Jl Mendez MD Unavailable [phone] Jannette Boudreaux MD Unavailable [phone] Tenisha Mendieta PA-C Unavailable Julio Monk PA-C Unavailable Luis Armando Eller MD Unavailable [phone] Jayesh Pineda MD Unavailable Kelsi Tejada MD Unavailable Unavailable Pretty Le MD Unavailable Vesta Michael PA-C Unavailable [phone] [facility] Unavailable [phone] Encounter Details Date Type Department Care Team Description 05/17/2020 Bmw Sales Consultant Report Medical Records 4 [place] [address] Randy Domínguez MD Social History Tobacco Use [...] on filedocumented in this encounter Care Teams Cook Relief Relationship Specialty Start Date End Date Teressa Solis DO PCP - General Internal Medicine 12/18/13 09/15/20 Mina Pretty DO PCP - General Internal Medicine 09/16/20 Shweta Boucher MD PCP - General Internal Medicine 01/12/21 10/10/21 Ora Ronquillo MD [address] [place] [address] PCP - General Internal Medicine 10/11/21 Jl Mendez MD [address] [place] [address] Dr Montiel [address] [place] [address] Specialist Cardiovascular Disease 10/13/21 Jannette Boudreaux MD [address] [address] Surgeon Neurosurgery 04/07/22 Tenisha Mendieta PA-C [address] [address] Specialist Neurosurgery 04/07/22 Julio Monk PA-C [address] [address] Specialist Neurosurgery 04/07/22 Luis Armando Eller MD [address] [address] Specialist ORTHOPEDIC SURGERY 10/01/23 Jayesh Pineda MD 305 [place] [address] Specialist Endocrinology 10/01/23 Kelsi Tejada MD 305 [place] [address] Specialist Allergy & Immunology 10/01/23 Pretty Le MD 175 [facility] [address] [place] [address] Specialist Pulmonology 10/01/23 Vesta Michael PA-C 300 [facility] 210 [place] [address] Specialist Vascular Surgery 10/01/23 [facility] 46 [place] [address] Specialist Optometry 10/01/23 documented as of this encounter
--- OUTSIDE RECORDS SUMMARY | 2024-05-20 10:57 | XMS_ITS | Encounter Summary ---
Author Organization [facility] Address [address] [place] [address] Care Team Providers Care Insurance Adviser Name Role Phone Teressa Solis DO Primary Care Pro vider Unavailable Mina Pretty DO Primary Care Provider Shweta Cronin MD Primary Care Provider Ora Diaz MD Primary Care Prov ider Jl Mendez MD Unavailable [phone] Jannette Boudreaux MD Unavailable [phone] Tenisha Mendieta PA-C Unavailable [phone] Julio Monk PA-C Unavailable Luis Armando Eller MD Unavailable [phone] Jayesh Pineda MD Unavailable Kelsi Tejada MD Unavailable Unavailable Pretty Le MD Unavailable Vesta Michael PA-C Unavailable [facility] Unavailable Encounter Details Date Type Department Care Team Description 06/12/2018 Telephone Adult Medicine - [place] 305 [place] [address] Dez Tristan MD Social History [...] on filedocumented in this encounter Care Teams Insurance Adviser Relationship Specialty Start Date End Date Teressa Solis DO PCP - General Internal Medicine 12/18/13 09/15/20 Mina Pretty DO PCP - General Internal Medicine 09/16/20 Shweta Boucher MD PCP - General Internal Medicine 01/12/21 10/10/21 Ora Ronquillo MD [address] [place] [address] PCP - General Internal Medicine 10/11/21 Jl Mendez MD [address] [place] [address] [place] [address] Specialist Cardiovascular Disease 10/13/21 Jannette Boudreaux MD [address] [address] Surgeon Neurosurgery 04/07/22 Tenisha Mendieta PA-C [address] [address] Specialist Neurosurgery 04/07/22 Julio Monk PA-C [address] [address] Specialist Neurosurgery 04/07/22 Luis Armando Eller MD [address] [address] Specialist ORTHOPEDIC SURGERY 10/01/23 Jayesh Pineda MD 305 [place] [address] Specialist Endocrinology 10/01/23 Kelsi Tejada MD 305 [place] [address] Specialist Allergy & Immunology 10/01/23 Pretty Le MD 175 [facility] [address] [place] [address] Specialist Pulmonology 10/01/23 Vesta Michael PA-C 300 [facility] 210 [place] [address] Specialist Vascular Surgery 10/01/23 [facility] 46 [place] [address] Specialist Optometry 10/01/23 documented as of this encounter
--- OUTSIDE RECORDS SUMMARY | 2024-05-20 10:57 | XMS_ITS | Encounter Summary ---
Author Organization [facility] Address [address] [place] [address] Care Team Providers Care Hydrochloric Area Supervisor Name Role Phone Teressa Solis DO Primary Care Pro vider Unavailable Mina Pretty DO Primary Care Provider Shweta Cronin MD Primary Care Provider Ora Diaz MD Primary Care Prov ider Jl Mendez MD Unavailable Jannette Boudreaux MD Unavailable [phone] Tenisha Mendieta PA-C Unavailable Julio Monk PA-C Unavailable Luis Armando Eller MD Unavailable [phone] Jayesh Pineda MD Unavailable Kelsi Tejada MD Unavailable Unavailable Pretty Le MD Unavailable Vesta Michael PA-C Unavailable [facility] Unavailable [phone] Encounter Details Date Type Department Care Team Description 01/11/2017 Acid Conditioning Worker Report Medical Records [address] [place] [address] Ivan Muller Social History Tobacco Use Types [...] filedocumented in this encounter Care Teams Hydrochloric Area Supervisor Relationship Specialty Start Date End Date Teressa Solis DO PCP - General Internal Medicine 12/18/13 09/15/20 Mina Pretty DO PCP - General Internal Medicine 09/16/20 Shweta Boucher MD PCP - General Internal Medicine 01/12/21 10/10/21 Ora Ronquillo MD [address] [place] [address] PCP - General Internal Medicine 10/11/21 Jl Mendez MD [address] [place] [address] [place] [address] Specialist Cardiovascular Disease 10/13/21 Jannette Boudreaux MD [address] [address] Surgeon Neurosurgery 04/07/22 Tenisha Mendieta PA-C [address] [address] Specialist Neurosurgery 04/07/22 Julio Monk PA-C [address] [address] Specialist Neurosurgery 04/07/22 Luis Armando Eller MD [address] [address] Specialist ORTHOPEDIC SURGERY 10/01/23 Jayesh Pineda MD 305 [place] [address] Specialist Endocrinology 10/01/23 Kelsi Tejada MD 305 [place] [address] Specialist Allergy & Immunology 10/01/23 Pretty Le MD 175 [facility] [address] [place] [address] Specialist Pulmonology 10/01/23 Vesta Michael PA-C 300 [facility] [address] [place] [address] Specialist Vascular Surgery 10/01/23 [facility] 46 [place] [address] Specialist Optometry 10/01/23 documented as of this encounter
--- OUTSIDE RECORDS SUMMARY | 2024-05-20 10:57 | XMS_ITS | Encounter Summary ---
Author Organization [facility] Address [address] [place] [address] Care Team Providers Care Project Executive Name Role Phone Ora Ronquillo MD Primary Care Prov ider Jl Mendez MD Unavailable Jannette Boudreaux MD Unavailable [phone] Tenisha Mendieta PA-C Unavailable [phone] Julio Monk PA-C Unavailable Luis Armando Eller MD Unavailable [phone] Jayesh Pineda MD Unavailable Kelsi Tejada MD Unavailable Unavailable Pretty Le MD Unavailable Vesta Michael PA-C Unavailable [facility] Unavailable Encounter Details Date Type Department Care Team Description 01/23/2023 Telephone General Surgery [facility] [address] [address] Unruly Ferrera MD [address] [address] Social History Tobacco Use Types Packs/Day Years Used Date Smoking Tobacco: Never Smokeless Tobacco: Never Alcohol Use Standard Drinks/Week Comments No 0 (1 standard drink = 0.6 oz pur e alcohol) Education Answer Date Recorded What is the highest level of school you have completed or the highest degree you have received? 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 - 01/23/2023 2:48 PM EST ----- Message from Unruly Ferrera MD sent at 01/17/2023 4:29 PM EST ----- Results reviewed. Please inform patient of benign findings. Follow up 2 weeks postop. Thanks documented in this encounter Plan of Treatment Not on file documented as of this encounter Visit Diagnoses Not on filedocumented in this encounter Care Teams Project Executive Relationship Specialty Start Date End Date Ora Ronquillo MD [address] [place] [address] PCP - General Internal Medicine 10/11/21 Jl Mendez MD [address] [place] [address] Dr Montiel [address] [place] [address] Specialist Cardiovascular Disease 10/13/21 Jannette Boudreaux MD [address] [address] Surgeon Neurosurgery 04/07/22 Tenisha Mendieta PA-C [address] [address] Specialist Neurosurgery 04/07/22 Julio Monk PA-C [address] [address] Specialist Neurosurgery 04/07/22 Luis Armando Eller MD 175 [facility] [address] [place] [address] Specialist ORTHOPEDIC SURGERY 10/01/23 Jayesh Pineda MD 305 [place] [address] Specialist Endocrinology 10/01/23 Kelsi Tejada MD 305 [place] [address] Specialist Allergy & Immunology 10/01/23 Pretty Le MD 175 [facility] [address] [place] [address] Specialist Pulmonology 10/01/23 Vesta Michael PA-C 300 [facility] [address] [place] [address] Specialist Vascular Surgery 10/01/23 [facility] 46 [place] [address] Specialist Optometry 10/01/23 documented as of this encounter
--- OUTSIDE RECORDS SUMMARY | 2024-05-20 10:57 | XMS_ITS | Encounter Summary ---
Author Organization [facility] Address [address] [place] [address] Care Team Providers Care Textile Screen Printer Name Role Phone Geno Cueva MD Primary Care Provider Unavailable Teressa Solis DO Primary Care Pro vider Unavailable Mina Pretty DO Primary Care Provider Ailyn Shweta Pretty MD Primary Care Provider Ora Diaz MD Primary Care Prov ider Jl Mendez MD Unavailable Jannette Boudreaux MD Unavailable [phone] Tenisha Mendieta PA-C Unavailable [phone] Julio Monk PA-C Unavailable Luis Armando Eller MD Unavailable [phone] Jayesh Pineda MD Unavailable Kelsi Tejada MD Unavailable Unavailable Pretty Le MD Unavailable Vesta Michael-Pina Unavailable [phone] [facility] Unavailable [phone] Encounter Details Date Type Department Care Team Description 03/24/2013 Inflatable Buildings Laminator Report Medical Records [address] [place] [address] Narinder Franco MD Social History Tobacco Use [...] on filedocumented in this encounter Care Teams Textile Screen Printer Relationship Specialty Start Date End Date Geno Cueva MD PCP - General Internal Medicine 06/28/1212/17/13 Teressa Solis DO PCP - General Internal Medicine 12/18/13 09/15/20 Mina Pretty DO PCP - General Internal Medicine 09/16/20 1 Shweta Tellez MD PCP - General Internal Medicine 01/12/21 10/10/21 Hiwot Couch, Ora Kelly MD [address] [place] [address] PCP - General Internal Medicine 10/11/21 Jl Mendez MD [address] [place] [address] Dr Montiel [address] [place] [address] Specialist Cardiovascular Disease 10/13/21 Jannette Boudreaux MD [address] [address] Surgeon Neurosurgery 04/07/22 Tenisha Mendieta PA-C [address] [address] Specialist Neurosurgery 04/07/22 Julio Monk PA-C [address] [address] Specialist Neurosurgery 04/07/22 Luis Armando Eller MD [address] [address] Specialist ORTHOPEDIC SURGERY 10/01/23 Jayesh Pineda MD [address] [place] [address] Specialist Endocrinology 10/01/23 Kelsi Tejada MD [address] [place] [address] Specialist Allergy & Immunology 10/01/23 Pretty Le MD 175 [facility] [address] [place] [address] Specialist Pulmonology 10/01/23 Vesta Michael PA-C 300 [facility] [address] [place] [address] Specialist Vascular Surgery 10/01/23 [facility] [address] [place] [address] Specialist Optometry 10/01/23 documented as of this encounter
--- OUTSIDE RECORDS SUMMARY | 2024-05-20 10:57 | XMS_ITS | Encounter Summary ---
Author Organization [facility] Address [address] [place] [address] Care Team Providers Care Acid Cutter Name Role Phone Teressa Solis DO Primary Care Pro vider Unavailable Mina Pretty DO Primary Care Provider Shweta Cronin MD Primary Care Provider Ora Diaz MD Primary Care Prov ider Jl Mendez MD Unavailable Jannette Boudreaux MD Unavailable [phone] Tenisha Mendieta PA-C Unavailable Julio Monk PA-C Unavailable Luis Armando Eller MD Unavailable [phone] Jayesh Pineda MD Unavailable Kelsi Tejada MD Unavailable Unavailable Pretty Le MD Unavailable Vesta Michael PA-C Unavailable [phone] [facility] Unavailable Reason for Visit * Reason Onset Date Comments REFERRAL 08/02/2016 Surgery Encounter Details Date Type Department Care Team Description 08/02/2016 Telephone General Surgery [address] [place] [address] [id number] Jose Cruz Valenzuela MD [address] [place] [address] [id number] REFERRAL (Surgery) Social History Tobacco Use Types Packs/Day Years [...] encounter Miscellaneous Notes * Telephone Encounter - Poonam Andrea - 08/02/2016 8:39 AM EDT Patient did not keep their scheduled Consult appointment in Genral Surgery Department. Multiple attempts were made to reschedule appointment with no response from the patient. Taking out from the referral report. Just an FYI. documented in this encounter Plan of Treatment Not on file documented as of this encounter Visit Diagnoses Not on filedocumented in this encounter Care Teams Acid Cutter Relationship Specialty Start Date End Date Teressa Solis DO PCP - General Internal Medicine 12/18/13 09/15/20 Mina Pretty DO PCP - General Internal Medicine 09/16/20 1 Shweta Tellez MD PCP - General Internal Medicine 01/12/21 10/10/21 Ora Ronquillo MD [address] [place] [address] PCP - General Internal Medicine 10/11/21 Jl Mendez MD [address] [place] [address] [place] [address] Specialist Cardiovascular Disease 10/13/21 Jannette Boudreaux MD [address] [address] Surgeon Neurosurgery 04/07/22 Tenisha Mendieta PA-C [address] [address] Specialist Neurosurgery 04/07/22 Julio Monk PA-C 175 [address] [place] [address] Specialist Neurosurgery 04/07/22 Luis Armando Eller MD 175 [facility] 250 [place] [address] Specialist ORTHOPEDIC SURGERY 10/01/23 Jayesh Pineda MD 305 [place] [address] Specialist Endocrinology 10/01/23 Kelsi Tejada MD 305 [place] [address] Specialist Allergy & Immunology 10/01/23 Pretty Le MD 175 [facility] 200 [place] [address] Specialist Pulmonology 10/01/23 Vesta Michael PA-C 300 [facility] 210 [place] [address] Specialist Vascular Surgery 10/01/23 [facility] 46 [place] [address] Specialist Optometry 10/01/23 documented as of this encounter
--- OUTSIDE RECORDS SUMMARY | 2024-05-20 10:57 | XMS_ITS | Encounter Summary ---
Author Organization [facility] Address [address] [place] [address] Care Team Providers Care Store Operations Manager Name Role Phone Teressa Solis DO Primary Care Pro vider Unavailable Mina Pretty DO Primary Care Provider Shweta Cronin MD Primary Care Provider Ora Diaz MD Primary Care Prov ider Jl Mendez MD Unavailable Jannette Boudreaux MD Unavailable [phone] Tenisha Mendieta PA-C Unavailable [phone] Julio Monk PA-C Unavailable [phone] Luis Armando Eller MD Unavailable [phone] Jayesh Pineda MD Unavailable Kelsi Tejada MD Unavailable Unavailable Pretty Le MD Unavailable Vesta Michael PA-C Unavailable [phone] [facility] Unavailable [phone] Encounter Details Date Type Department Care Team Description 12/28/2016 Early Childhood Education Coordinator Report Medical Records [address] [place] [address] Social History Tobacco Use Types Packs/Day Years [...] on filedocumented in this encounter Care Teams Store Operations Manager Relationship Specialty Start Date End Date Teressa Solis DO PCP - General Internal Medicine 12/18/13 09/15/20 Mina Pretty DO PCP - General Internal Medicine 09/16/20 Shweta Boucher MD PCP - General Internal Medicine 01/12/21 10/10/21 Ora Ronquillo MD [address] [place] [address] PCP - General Internal Medicine 10/11/21 Jl Mendez MD [address] [place] [address] Dr Montiel [address] [place] [address] Specialist Cardiovascular Disease 10/13/21 Jannette Boudreaux MD [address] [address] Surgeon Neurosurgery 04/07/22 Tenisha Mendieta PA-C [address] [address] Specialist Neurosurgery 04/07/22 Julio Monk PA-C [address] [address] Specialist Neurosurgery 04/07/22 Luis Armando Eller MD [address] [address] Specialist ORTHOPEDIC SURGERY 10/01/23 Jayesh Pineda MD 305 [place] [address] Specialist Endocrinology 10/01/23 Kelsi Tejada MD 305 [place] [address] Specialist Allergy & Immunology 10/01/23 Pretty Le MD 175 [facility] [address] [place] [address] Specialist Pulmonology 10/01/23 Vesta Michael PA-C 300 [facility] 210 [place] [address] Specialist Vascular Surgery 10/01/23 [facility] 46 [place] [address] Specialist Optometry 10/01/23 documented as of this encounter
--- OUTSIDE RECORDS SUMMARY | 2024-05-20 10:57 | XMS_ITS | Encounter Summary ---
Author Organization [facility] Address [address] [place] [address] Care Team Providers Care Shank Taper Name Role Phone Geno Cueva MD Primary Care Provider Unavailable Teressa Solis DO Primary Care Pro vider Unavailable Mina Pretty DO Primary Care Provider Ailyn Shweta Pretty MD Primary Care Provider Ora Diaz MD Primary Care Prov ider Jl Mendez MD Unavailable [phone] Jannette Bourdeaux MD Unavailable [phone] Tenisha Mendieta PA-C Unavailable [phone] Julio Monk PA-C Unavailable Luis Armando Eller MD Unavailable [phone] Jayesh Pineda MD Unavailable Kelsi Tejada MD Unavailable Unavailable Pretty Le MD Unavailable Vesta Michael-Pina Unavailable [phone] [facility] Unavailable [phone] Encounter Details Date Type Department Care Team Description 01/27/2013 Legal Administrator Report Medical Records [address] [place] [address] Narinder Franco MD Social History Tobacco Use [...] on filedocumented in this encounter Care Teams Shank Taper Relationship Specialty Start Date End Date Geno Cueva MD PCP - General Internal Medicine 06/28/1212/17/13 Teressa Solis DO PCP - General Internal Medicine 12/18/13 09/15/20 Mina Pretty DO PCP - General Internal Medicine 09/16/20 1 Shweta Tellez MD PCP - General Internal Medicine 01/12/21 10/10/21 Hiwot Couch, Ora Kelly MD [address] [place] [address] PCP - General Internal Medicine 10/11/21 Jl Mendez MD [address] [place] [address] Dr Mont[address] [place] [address] Specialist Cardiovascular Disease 10/13/21 Jannette Boudreaux MD [address] [address] Surgeon Neurosurgery 04/07/22 Tenisha Mendieta PA-C [address] [address] Specialist Neurosurgery 04/07/22 Julio Monk PA-C [address] [address] Specialist Neurosurgery 04/07/22 Luis Armando Eller MD [address] [address] Specialist ORTHOPEDIC SURGERY 10/01/23 Jayesh Pineda MD [address] [place] [address] Specialist Endocrinology 10/01/23 Kelsi Tejada MD 305 [place] [address] Specialist Allergy & Immunology 10/01/23 Pretty Le MD 175 [facility] [address] [place] [address] Specialist Pulmonology 10/01/23 Vesta Michael PA-C 300 [facility] [address] [place] [address] Specialist Vascular Surgery 10/01/23 [facility] [address] [place] [address] Specialist Optometry 10/01/23 documented as of this encounter
--- OUTSIDE RECORDS SUMMARY | 2024-05-20 10:57 | XMS_ITS | Encounter Summary ---
Author Organization [facility] Address [address] [place] [address] Care Team Providers Care Financial Business Analyst Name Role Phone Ora Ronquillo MD Primary Care Prov ider Jl Mendez MD Unavailable [phone] Jannette Boudreaux MD Unavailable [phone] Tenisha Mendieta PA-C Unavailable Julio Monk PA-C Unavailable Luis Armando Eller MD Unavailable [phone] Jayesh Pineda MD Unavailable Kelis Tejada MD Unavailable Unavailable Pretty Le MD Unavailable Vesta Michael PA-C Unavailable [facility] Unavailable Reason for Visit * Reason Onset Date Comments DME Request 08/11/2022 Encounter Details Date Type Department Care Team Description 08/11/[address] [facility] [address] [facility] [address] [place] [address] Michael Saldana MD DME Request [...] 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, JAMB CUTTER, CHANDRAKANT) 06/14/2020 Sex Assigned at Date Recorded [...] on filedocumented in this encounter Care Teams Financial Business Analyst Relationship Specialty Start Date End Date Ora Ronquillo MD [address] [place] [address] PCP - General Internal Medicine 10/11/21 Jl Mendez MD [address] [place] [address] Dr Mont[address] [place] [address] Specialist Cardiovascular Disease 10/13/21 Jannette Boudreaux MD [address] [address] Surgeon Neurosurgery 04/07/22 Tenisha Mendieta PA-C [address] [address] Specialist Neurosurgery 04/07/22 Julio Monk PA-C 175 [facility] [address] [place] [address] Specialist Neurosurgery 04/07/22 Luis Armando Eller MD [address] [address] Specialist ORTHOPEDIC SURGERY 10/01/23 Jayesh Pineda MD 305 [place] [address] Specialist Endocrinology 10/01/23 Kelsi Tejada MD 305 [place] [address] Specialist Allergy & Immunology 10/01/23 Pretty Le MD 175 [facility] [address] [place] [address] Specialist Pulmonology 10/01/23 Vesta Michael PA-C 300 [facility] [address] [place] [address] Specialist Vascular Surgery 10/01/23 [facility] [address] [place] [address] Specialist Optometry 10/01/23 documented as of this encounter
--- OUTSIDE RECORDS SUMMARY | 2024-05-20 10:57 | XMS_ITS | Encounter Summary ---
Author Organization [facility] Address [address] [place] [address] Care Team Providers Care Teacher Dancing Name Role Phone Teressa Solis DO Primary Care Pro vider Unavailable Mina Pretty DO Primary Care Provider Ailyn Shweta Pretty MD Primary Care Provider Ora Diaz MD Primary Care Prov ider Jl Mendez MD Unavailable Jannette Boudreaux MD Unavailable [phone] Tenisha Mendieta PA-C Unavailable [phone] Julio Monk PA-C Unavailable [phone] Luis Armando Eller MD Unavailable [phone] Jayesh Pineda MD Unavailable Kelsi Tejada MD Unavailable Unavailable Pretty Le MD Unavailable Vesta Michael PA-C Unavailable [facility] Unavailable [phone] Encounter Details Date Type Department Care Team Description 10/11/2015 Printing Estimator Report Medical Records [address] [place] [address] Wilfredo Tena MD Social History Tobacco Use Types Packs/Day [...] on filedocumented in this encounter Care Teams Teacher Dancing Relationship Specialty Start Date End Date Teressa Solis DO PCP - General Internal Medicine 12/18/13 09/15/20 Mina Pretty DO PCP - General Internal Medicine 09/16/20 Shweta Boucher MD PCP - General Internal Medicine 01/12/21 10/10/21 Ora Ronquillo MD [address] [place] [address] PCP - General Internal Medicine 10/11/21 Jl Mendez MD [address] [place] [address] Specialist Cardiovascular Disease 10/13/21 Jannette Boudreaux MD [address] [address] Surgeon Neurosurgery 04/07/22 Tenisha Mendieta PA-C [address] [address] Specialist Neurosurgery 04/07/22 Julio Monk PA-C [address] [address] Specialist Neurosurgery 04/07/22 Luis Armando Eller MD [address] [address] Specialist ORTHOPEDIC SURGERY 10/01/23 Jayesh Pineda MD 305 [place] [address] Specialist Endocrinology 10/01/23 Kelsi Tejada MD 305 [place] [address] Specialist Allergy & Immunology 10/01/23 Pretty Le MD 175 [facility] [address] [place] [address] Specialist Pulmonology 10/01/23 Vesta Michael PA-C 300 [facility] 210 [place] [address] Specialist Vascular Surgery 10/01/23 [facility] 46 [place] [address] Specialist Optometry 10/01/23 documented as of this encounter
--- OUTSIDE RECORDS SUMMARY | 2024-05-20 10:57 | XMS_ITS | Encounter Summary ---
Author Organization [facility] Address [address] [place] [address] Care Team Providers Care Stonemason Apprentice Name Role Phone Mina Pretty DO Primary Care Provider Shweta Cronin MD Primary Care Provider Ora Diaz MD Primary Care Prov ider Jl Mendez MD Unavailable [phone] Jannette Boudreaux MD Unavailable [phone] Tenisha Mendieta PA-C Unavailable Julio Monk PA-C Unavailable Luis Armando Eller MD Unavailable [phone] Jayesh Pineda MD Unavailable Kelsi Tejada MD Unavailable Unavailable Pretty Le MD Unavailable Vesta Michael PA-C Unavailable [facility] Unavailable [phone] Reason for Visit * Reason Onset Date Comments APPOINTMENT 11/02/2020 Testing 11/02/2020 Encounter Details Date Type Department Care Team Description 11/02/2020 Telephone Vascular Surgery - [place] [address] [place] [address] Vesta Michael PA-C 300 [facility] [address] [place] [address] APPOINTMENT; Testing Social History Tobacco Use Types Packs/Day Years Used Date Smoking Tobacco: Never Smokeless Tobacco: Never Alcohol Use Standard Drinks/Week Comments No 0 (1 standard drink = 0.6 oz pur e alcohol) Education Answer Date Recorded What is the highest level of school you have completed or the highest degree you have received? 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, LANDSCAPE FOREMAN, CHANDRAKANT) 06/14/2020 Sex Assigned at Date Recorded [...] faxed by the Prior Auth staff to [facility] for Scheduling. [facility] telephone number is , Fax is documented in this encounter Plan of Treatment Not on file documented as of this encounter Visit Diagnoses Not on filedocumented in this encounter Care Teams Stonemason Apprentice Relationship Specialty Start Date End Date Mina Pretty DO PCP - General Internal Medicine 09/16/20 1 Shweta Tellez MD PCP - General Internal Medicine 01/12/21 10/10/21 Ora Ronquillo MD [address] [place] [address] PCP - General Internal Medicine 10/11/21 Jl Mendez MD [address] [place] [address] Dr Montiel [address] [place] [address] Specialist Cardiovascular Disease 10/13/21 Jannette Boudreaux MD [address] [address] Surgeon Neurosurgery 04/07/22 Tenisha Mendieta PA-C [address] [address] Specialist Neurosurgery 04/07/22 Julio Monk PA-C 175 [facility] [address] [place] [address] Specialist Neurosurgery 04/07/22 Luis Armando Eller MD [address] [address] Specialist ORTHOPEDIC SURGERY 10/01/23 Jayesh Pineda MD [address] [place] [address] Specialist Endocrinology 10/01/23 Kelsi Tejada MD 305 [place] [address] Specialist Allergy & Immunology 10/01/23 Pretty Le MD 175 [facility] [address] [place] [address] Specialist Pulmonology 10/01/23 Vesta Michael PA-C 300 [facility] [address] [place] [address] Specialist Vascular Surgery 10/01/23 [facility] [address] [place], [place] 8488689 Specialist Optometry 10/01/23 documented as of this encounter
--- OUTSIDE RECORDS SUMMARY | 2024-05-20 10:57 | XMS_ITS | Encounter Summary ---
Author Organization [facility] Address [address] [place] [address] Care Team Providers Care Receiving Inspector Name Role Phone Teressa Solis DO Primary Care Pro vider Unavailable Mina Pretty DO Primary Care Provider Shweta Cronin MD Primary Care Provider Ora Diaz MD Primary Care Prov ider Jl Mendez MD Unavailable Jannette Boudreaux MD Unavailable [phone] Tenisha Mendieta PA-C Unavailable Julio Monk PA-C Unavailable Luis Armando Eller MD Unavailable [phone] Jayesh Pineda MD Unavailable Kelsi Tejada MD Unavailable Unavailable Pretty Le MD Unavailable Vesta Michael PA-C Unavailable [phone] [facility] Unavailable Encounter Details Date Type Department Care Team Description 01/05/2017 Face Burler Report Medical Records [address] [place] [address] Bobby Sutton PA-C Social History Tobacco Use [...] on filedocumented in this encounter Care Teams Receiving Inspector Relationship Specialty Start Date End Date Teressa Solis DO PCP - General Internal Medicine 12/18/13 09/15/20 Mina Pretty DO PCP - General Internal Medicine 09/16/20 Shweta Boucher MD PCP - General Internal Medicine 01/12/21 10/10/21 Ora Ronquillo MD [address] [place] [address] PCP - General Internal Medicine 10/11/21 Jl Mendez MD [address] [place] [address] Specialist Cardiovascular Disease 10/13/21 Jannette Boudreaux MD [address] [address] Surgeon Neurosurgery 04/07/22 Tenisha Mendieta PA-C [address] [address] Specialist Neurosurgery 04/07/22 Julio Monk PA-C [address] [address] Specialist Neurosurgery 04/07/22 Luis Armando Eller MD [address] [address] Specialist ORTHOPEDIC SURGERY 10/01/23 Jayesh Pineda MD 305 [place] [address] Specialist Endocrinology 10/01/23 Kelsi Tejada MD 305 [place] [address] Specialist Allergy & Immunology 10/01/23 Pretty Le MD 175 [facility] [address] [place] [address] Specialist Pulmonology 10/01/23 Vesta Michael PA-C 300 [facility] 210 [place] [address] Specialist Vascular Surgery 10/01/23 [facility] [address] [place] [address] Specialist Optometry 10/01/23 documented as of this encounter
--- OUTSIDE RECORDS SUMMARY | 2024-05-20 10:57 | XMS_ITS | Encounter Summary ---
Author Organization [facility] Address [address] [place] [address] Care Team Providers Care Sports Doctor Name Role Phone Geno Cueva MD Primary Care Provider Unavailable Teressa Solis DO Primary Care Pro vider Unavailable Mina Pretty DO Primary Care Provider Ailyn Shweta Pretty MD Primary Care Provider Ora Diaz MD Primary Care Prov ider Jl Mendez MD Unavailable [phone] Jannette Boudreaux MD Unavailable [phone] Tenisha Mendieta PA-C Unavailable Julio Monk PA-C Unavailable [phone] Luis Armando Eller MD Unavailable [phone] Jayesh Pineda MD Unavailable Kelsi Tejada MD Unavailable Unavailable Pretty Le MD Unavailable Vesta Michael-Pina Unavailable [phone] [facility] Unavailable [phone] Encounter Details Date Type Department Care Team Description 06/30/2013 Director Of Maternity Services Report Medical Records [address] [place] [address] Narinder Franco MD Social History Tobacco Use [...] on filedocumented in this encounter Care Teams Sports Doctor Relationship Specialty Start Date End Date Geno Cueva MD PCP - General Internal Medicine 06/28/1212/17/13 Teressa Solis DO PCP - General Internal Medicine 12/18/13 09/15/20 Mina Pretty DO PCP - General Internal Medicine 09/16/20 1 Shweta Tellez MD PCP - General Internal Medicine 01/12/21 10/10/21 Hiwot Couch, Ora Kelly MD [address] [place] [address] PCP - General Internal Medicine 10/11/21 Jl Mendez MD [address] [place] [address] Dr Montiel [address] [place] [address] Specialist Cardiovascular Disease 10/13/21 Jannette Boudreaux MD [address] [address] Surgeon Neurosurgery 04/07/22 Tenisha Mendieta PA-C [address] [address] Specialist Neurosurgery 04/07/22 Julio Monk PA-C [address] [address] Specialist Neurosurgery 04/07/22 Luis Armando Eller MD [address] [address] Specialist ORTHOPEDIC SURGERY 10/01/23 Jayesh Pineda MD [address] [place] [address] Specialist Endocrinology 10/01/23 Kelsi Tejada MD 305 [place] [address] Specialist Allergy & Immunology 10/01/23 Pretty Le MD 175 [facility] [address] [place] [address] Specialist Pulmonology 10/01/23 Vesta Michael PA-C 300 [facility] [place] [address] [place] [address] Specialist Vascular Surgery 10/01/23 [facility] 46 [place] [address] Specialist Optometry 10/01/23 documented as of this encounter
--- OUTSIDE RECORDS SUMMARY | 2024-05-20 10:57 | XMS_ITS | Encounter Summary ---
Author Organization [facility] Address [address] [place] [address] Care Team Providers Care Assistant Casino Shift Manager Name Role Phone Ora Ronquillo MD Primary Care Prov ider Jl Mendez MD Unavailable [phone] Jannette Boudreaux MD Unavailable [phone] Tenisha Mendieta PA-C Unavailable Julio MonkC Unavailable [phone] Luis Armando Eller MD Unavailable [phone] Jayesh Pineda MD Unavailable Kelsi Tejada MD Unavailable Unavailable Pretty Le MD Unavailable Vesta Michael PA-Pina Unavailable [phone] [facility] Unavailable [phone] Encounter Details Date Type Department Care Team Description 09/14/2022 Hand Decorator Report Medical Records 4 [place] [address] Jorge Belcher II Social History Tobacco Use Types Packs/Day Years Used Date Smoking Tobacco: Never Smokeless Tobacco: Never Alcohol Use Standard Drinks/Week Comments No 0 (1 standard drink = 0.6 oz pur e alcohol) Education Answer Date Recorded What is the highest level of school you have completed or the highest degree you have received? 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, CASTING AGENT, CHANDRAKANT) 06/14/2020 Sex Assigned at Date Recorded [...] on filedocumented in this encounter Care Teams Assistant Casino Shift Manager Relationship Specialty Start Date End Date Ora Ronquillo MD [address] [place] [address] PCP - General Internal Medicine 10/11/21 Jl Mendez MD [address] [place] [address] Dr [address] [place] [address] Specialist Cardiovascular Disease 10/13/21 Jannette Boudreaux MD 175 [facility] 300 [place] [address] Surgeon Neurosurgery 04/07/22 Tenisha Mendieta PA-C [address] [address] Specialist Neurosurgery 04/07/22 Julio Monk PA-C 175 [facility] [address] [place] [address] Specialist Neurosurgery 04/07/22 Luis Armando Eller MD [address] [address] Specialist ORTHOPEDIC SURGERY 10/01/23 Jayesh Pineda MD 305 [place] [address] Specialist Endocrinology 10/01/23 Kelsi Tejada MD 305 [place] [address] Specialist Allergy & Immunology 10/01/23 Pretty Le MD 175 [facility] 200 [place] [address] Specialist Pulmonology 10/01/23 Vesta Michael PA-C 300 [facility] 210 [place] [address] Specialist Vascular Surgery 10/01/23 [facility] [address] [place] [address] Specialist Optometry 10/01/23 documented as of this encounter
--- OUTSIDE RECORDS SUMMARY | 2024-05-20 10:57 | XMS_ITS | Encounter Summary ---
Author Organization [facility] Address [address] [place] [address] Care Team Providers Care B2B Account Executive Name Role Phone Teressa Solis DO Primary Care Pro vider Unavailable Mina Pretty DO Primary Care Provider Shweta Cronin MD Primary Care Provider Ora Diaz MD Primary Care Prov ider Jl Mendez MD Unavailable [phone] Jannette Boudreaux MD Unavailable [phone] Tenisha Mendieta PA-C Unavailable Julio Monk PA-C Unavailable [phone] Luis Armando Eller MD Unavailable [phone] Jayesh Pineda MD Unavailable Kelsi Tejada MD Unavailable Unavailable Pretty Le MD Unavailable Vesta Michael PA-C Unavailable [phone] [facility] Unavailable Reason for Visit * Reason Comments E-prescribe Rx Request Encounter Details Date Type Department Care Team Description 07/05/2020 Refill Medicine/Pediatrics [address] [phone] Teressa Solis DO E-prescribe Rx Request Social [...] 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, CORE MACHINE OPERATOR, CHANDRAKANT) 06/14/2020 Sex Assigned at [...] N/A Patients current insurance carrier is: Payor: [employer]FS / [facility] / Product Type: MEDICAID RISK documented in this encounter Plan of Treatment Not on file documented as of this encounter Visit Diagnoses Not on filedocumented in this encounter Care Teams B2B Account Executive Relationship Specialty Start Date End Date Teressa Solis DO PCP - General Internal Medicine 12/18/13 09/15/20 Mina Pretty DO PCP - General Internal Medicine 09/16/20 Shweta Boucher MD PCP - General Internal Medicine 01/12/21 10/10/21 Ora Ronquillo MD 444 [place] [address] PCP - General Internal Medicine 10/11/21 Jl Mendez MD [address] [place] [address] Dr Mont[address] [place] [address] Specialist Cardiovascular Disease 10/13/21 Jannette Boudreaux MD [address] [address] Surgeon Neurosurgery 04/07/22 Tenisha Mendieta PA-C [address] [address] Specialist Neurosurgery 04/07/22 Julio Monk PA-C 175 [facility] [address] [place] [address] Specialist Neurosurgery 04/07/22 Luis Armando Eller MD [address] [address] Specialist ORTHOPEDIC SURGERY 10/01/23 Jayesh Pineda MD 305 [place] [address] Specialist Endocrinology 10/01/23 Kelsi Tejada MD 305 [place] [address] Specialist Allergy & Immunology 10/01/23 Pretty Le MD 175 [facility] [address] [place] [address] Specialist Pulmonology 10/01/23 Vesta Michael PA-C 300 [facility] 210 [place] [address] Specialist Vascular Surgery 10/01/23 [facility] 46 [place] [address] Specialist Optometry 10/01/23 documented as of this encounter
--- OUTSIDE RECORDS SUMMARY | 2024-05-20 10:57 | XMS_ITS | Encounter Summary ---
Author Organization [facility] Address [address] [place] [address] Care Team Providers Care Certified Veterinary Technician Name Role Phone Teressa Solis DO Primary Care Pro vider Unavailable Mina Pretty DO Primary Care Provider Shweta Cronin MD Primary Care Provider Ora Diaz MD Primary Care Prov ider Jl Mendez MD Unavailable [phone] Jannette Boudreaux MD Unavailable [phone] Tenisha Mendieta PA-C Unavailable [phone] Julio Monk PA-C Unavailable [phone] Luis Armando Eller MD Unavailable [phone] Jayesh Pineda MD Unavailable Kelsi Tejada MD Unavailable Unavailable Pretty Le MD Unavailable Vesta Michael PA-C Unavailable [facility] Unavailable Encounter Details Date Type Department Care Team Description 07/31/2016 SCAN Medical Records 4 [place] [address] Abstract, Provider Social History Tobacco Use Types [...] on filedocumented in this encounter Care Teams Certified Veterinary Technician Relationship Specialty Start Date End Date Teressa Solis DO PCP - General Internal Medicine 12/18/13 09/15/20 Mina Pretty DO PCP - General Internal Medicine 09/16/20 Shweta Boucher MD PCP - General Internal Medicine 01/12/21 10/10/21 Ora Ronquillo MD [address] [place] [address] PCP - General Internal Medicine 10/11/21 Jl Mendez MD [address] [place] [address] Dr Mont[address] [place] [address] Specialist Cardiovascular Disease 10/13/21 Jannette Boudreaux MD [address] [address] Surgeon Neurosurgery 04/07/22 Tenisha Mendieta PA-C [address] [address] Specialist Neurosurgery 04/07/22 Julio Monk PA-C [address] [address] Specialist Neurosurgery 04/07/22 Luis Armando Eller MD [address] [address] Specialist ORTHOPEDIC SURGERY 10/01/23 Jayesh Pineda MD 305 [place] [address] Specialist Endocrinology 10/01/23 Kelsi Tejada MD 305 [place] [address] Specialist Allergy & Immunology 10/01/23 Pretty Le MD 175 [facility] [address] [place] [address] Specialist Pulmonology 10/01/23 Vesta Michael PA-C 300 [facility] 210 [place] [address] Specialist Vascular Surgery 10/01/23 [facility] 46 [place] [address] Specialist Optometry 10/01/23 documented as of this encounter
--- OUTSIDE RECORDS SUMMARY | 2024-05-20 10:57 | XMS_ITS | Encounter Summary ---
Author Organization [facility] Address [address] [place] [address] Care Team Providers Care Weatherstrip Machine Operator Name Role Phone Teressa Solis DO Primary Care Pro vider Unavailable Mina Pretty DO Primary Care Provider Ailyn Shweta Pretty MD Primary Care Provider Ora Diaz MD Primary Care Prov ider Jl Mendez MD Unavailable Jannette Boudreaux MD Unavailable [phone] Tenisha Mendieta PA-C Unavailable [phone] Julio Monk PA-C Unavailable [phone] Luis Armando Eller MD Unavailable [phone] Jayesh Pineda MD Unavailable Kelsi Tejada MD Unavailable Unavailable Pretty Le MD Unavailable Vesta Michael PA-C Unavailable [phone] [facility] Unavailable [phone] Encounter Details Date Type Department Care Team Description 05/11/2020 Ferryboat Operator Helper Report Medical Records 4 [place] [address] Meg Mc Social History Tobacco Use Types [...] on filedocumented in this encounter Care Teams Weatherstrip Machine Operator Relationship Specialty Start Date End Date Teressa Solis DO PCP - General Internal Medicine 12/18/13 09/15/20 Mina Pretty DO PCP - General Internal Medicine 09/16/20 Shweta Boucher MD PCP - General Internal Medicine 01/12/21 10/10/21 Ora Ronquillo MD [address] [place] [address] PCP - General Internal Medicine 10/11/21 Jl Mendez MD [address] [place] [address] Dr Montiel [address] [place] [address] Specialist Cardiovascular Disease 10/13/21 Jannette Boudreaux MD [address] [address] Surgeon Neurosurgery 04/07/22 Tenisha Mendieta PA-C [address] [address] Specialist Neurosurgery 04/07/22 Julio Monk PA-C [address] [address] Specialist Neurosurgery 04/07/22 Luis Armando Eller MD [address] [address] Specialist ORTHOPEDIC SURGERY 10/01/23 Jayesh Pineda MD [address] [place] [address] Specialist Endocrinology 10/01/23 Kelsi Tejada MD 305 [place] [address] Specialist Allergy & Immunology 10/01/23 Pretty Le MD 175 [facility] [address] [place] [address] Specialist Pulmonology 10/01/23 Vesta Michael PA-C 300 [facility] 210 [place] [address] Specialist Vascular Surgery 10/01/23 [facility] 46 [place], [place] [address] Specialist Optometry 10/01/23 documented as of this encounter
--- OUTSIDE RECORDS SUMMARY | 2024-05-20 10:57 | XMS_ITS ---
Author Name [facility] Organization Unknown Encounters Encounter Type Encounter Reason Primary Diagnosis Location Date Ambulatory [facility]. ([facility] 02/20/2022
--- OUTSIDE RECORDS SUMMARY | 2024-05-20 10:57 | XMS_ITS | Encounter Summary ---
Author Organization [facility] Address [address] [place] [address] Care Team Providers Care Cnmt Name Role Phone Ora Sweeney MD Primary Care Prov ider Encounter Details Date Type Department Care Team (Late st Contact Info) Description 12/12/2023 4:42 PM EDT Hospital Encounter TH HISTORIC ENCOUNTERS EASTERN CONVERSION ONLY Luis Armando Eller MD [address] [place] [address] Social History Tobacco Use Types Packs/Day Years [...] your loved ones. For example, child development associate teacher or elderly care for an older [...] 9:45 AM EDT Office Visit Adult Medicine [address] [address] Ora Sweeney MD 4 [place] [address] 06/04/2024 11:45 AM EDT Office Visit Orthopedic Surgery - [place] [address] [phone] Luis Armando Eller MD [address] [address] 06/05/2024 9:45 AM EDT Office Visit Orthopedic Surgery - [place] [address] [phone] Duke Dunn, DPJohan [address] [address] 06/06/2024 2:30 PM EDT Office Visit Obstetrics and Gynecology - [address] [phone] Stacie Martinez, [facility] [address] [place], [place] 06/09/2024 1:00 PM EDT Consult Bariatric Surgery [address] [phone] Rose [place] MD [address] [address] 06/30/2024 10:30 AM EDT Office Visit Orthopedic Surgery [facility] [address] [phone] Luis Armando Eller MD [address] [address] 07/02/2024 9:30 AM EDT Office Visit Orthopedic Surgery - [place] [address] [phone] Lorie Moore NP [address] [address] 07/09/2024 9:30 AM EDT Office Visit Endocrinology - [address] [phone] Jayesh Pineda MD 5 [place] [address] 09/22/2024 8:45 AM EDT Office Visit Pulmonolgy - [place] [address] [phone] Pretty Le MD [address] [address] documented as of this encounter Visit Diagnoses Not on filedocumented in this encounter Additional Health Concerns Infection Onset Date Last Indicated Resolved Time Respiratory Rule-Out 04/25/2024 04/25/2024 025 4:13 PM EST COVID-19 Rule-Out 04/25/2024 04/25/2024 04/25/2024 4:13 PM EST documented as of this encounter Care Teams Cnmt Relationship Specialty Start Date End Date Ora Sweeney MD [address] [place] [address] PCP - General 10/11/21 01/08/24 documented as of this encounter
--- OUTSIDE RECORDS SUMMARY | 2024-05-20 10:57 | XMS_ITS | Encounter Summary ---
Author Organization [facility] Address [address] [place] [address] Care Team Providers Care Sales Analytics Manager Name Role Phone Teressa Solis DO Primary Care Pro vider Unavailable Mina Pretty DO Primary Care Provider Shweta Cronin MD Primary Care Provider Ora Diaz MD Primary Care Prov ider Jl Mendez MD Unavailable Jannette Boudreaux MD Unavailable [phone] Tenisha Mendieta PA-C Unavailable [phone] Julio Monk PA-C Unavailable Luis Armando Eller MD Unavailable [phone] Jayesh Pineda MD Unavailable Kelsi Tejada MD Unavailable Unavailable Pretty Le MD Unavailable Vesta Michael PA-C Unavailable [phone] [facility] Unavailable [phone] Encounter Details Date Type Department Care Team Description 10/01/2015 Transfer Records Medical Records 4 [place] [address] Abstract, Provider Social History Tobacco Use Types [...] on filedocumented in this encounter Care Teams Sales Analytics Manager Relationship Specialty Start Date End Date Teressa Solis DO PCP - General Internal Medicine 12/18/13 09/15/20 Mina Pretty DO PCP - General Internal Medicine 09/16/20 Shweta Boucher MD PCP - General Internal Medicine 01/12/21 10/10/21 Ora Ronquillo MD [address] [place] [address] PCP - General Internal Medicine 10/11/21 Jl Mendez MD [address] [place] [address] Specialist Cardiovascular Disease 10/13/21 Jannette Boudreaux MD [address] [address] Surgeon Neurosurgery 04/07/22 Tenisha Mendieta PA-C [address] [address] Specialist Neurosurgery 04/07/22 Julio Monk PA-C [address] [address] Specialist Neurosurgery 04/07/22 Luis Armando Eller MD [address] [address] Specialist ORTHOPEDIC SURGERY 10/01/23 Jayesh Pineda MD 305 [place] [address] Specialist Endocrinology 10/01/23 Kelsi Tejada MD 305 [place] [address] Specialist Allergy & Immunology 10/01/23 Pretty Le MD 175 [facility] [address] [place] [address] Specialist Pulmonology 10/01/23 Vesta Michael PA-C 300 [facility] [address] [place] [address] Specialist Vascular Surgery 10/01/23 [facility] 46 [place] [address] Specialist Optometry 10/01/23 documented as of this encounter
--- OUTSIDE RECORDS SUMMARY | 2024-05-20 10:57 | XMS_ITS | Encounter Summary ---
Author Organization [facility] Address [address] [place] [address] Care Team Providers Care Shot Dropper Name Role Phone Teressa Solis DO Primary Care Pro vider Unavailable Mina Pretty DO Primary Care Provider Shweta Cronin MD Primary Care Provider Ora Diaz MD Primary Care Prov ider Jl Mendez MD Unavailable Jannette Boudreaux MD Unavailable [phone] Tenisha Mendieta PA-C Unavailable Julio Monk PA-C Unavailable Luis Armando Eller MD Unavailable [phone] Jayesh Pineda MD Unavailable Kelsi Tejada MD Unavailable Unavailable Pretty Le MD Unavailable Vesta Michael PA-C Unavailable [facility] Unavailable Reason for Visit * Reason Onset Date Comments Pre-op Needed 01/24/2017 Encounter Details Date Type Department Care Team Description 01/24/2017 Telephone Adult [address] [address] Teressa Solis DO Pre-op Needed [...] Jovanny Strange Office phone number of surgeon: [phone] Fax # for surgeons office: [phone] Where is surgery being performed?[facility] Diagnosis/problem for surgery: Oral cavity, facial bones PCP: Teressa Gallegos Did you verify that the insurance below is correct? YES Patients insurance: Payor: [facility] MEDICA[facility] / Plan: [facility] MEDICAID O [id number] [place] / Product Type: [id number] documented in this encounter Plan of Treatment Not on file documented as of this encounter Visit Diagnoses Not on filedocumented in this encounter Care Teams Shot Dropper Relationship Specialty Start Date End Date Teressa Solis DO PCP - General Internal Medicine 12/18/13 09/15/20 Mina Pretty DO PCP - General Internal Medicine 09/16/20 Shweta Boucher MD PCP - General Internal Medicine 01/12/21 10/10/21 Ora Ronquillo MD [address] [place] [address] PCP - General Internal Medicine 10/11/21 Jl Mendez MD [address] [place] [address] [place] [address] Specialist Cardiovascular Disease 10/13/21 Jannette Boudreaux MD 175 [facility] 300 [place] [address] Surgeon Neurosurgery 04/07/22 Tenisha Mendieta PA-C 175 [facility] 300 [place] [address] Specialist Neurosurgery 04/07/22 Julio Monk PA-C 175 [facility] [address] [place] [address] Specialist Neurosurgery 04/07/22 Luis Armando Eller MD 175 [facility] 250 [place] [address] Specialist ORTHOPEDIC SURGERY 10/01/23 Jayesh Pineda MD 305 [place] [address] Specialist Endocrinology 10/01/23 Kelsi Tejada MD 305 [place] [address] Specialist Allergy & Immunology 10/01/23 Pretty Le MD 175 [facility] 200 [place] [address] Specialist Pulmonology 10/01/23 Vesta Michael PA-C 300 [facility] [address] [place] [address] Specialist Vascular Surgery 10/01/23 [facility] 46 [place] [address] Specialist Optometry 10/01/23 documented as of this encounter
--- OUTSIDE RECORDS SUMMARY | 2024-05-20 10:57 | XMS_ITS | Encounter Summary ---
Author Organization [facility] Address [address] [place] [address] Care Team Providers Care Program Advisor Name Role Phone Ora Ronquillo MD Primary Care Prov ider Jl Mendez MD Unavailable Jannette Boudreaux MD Unavailable [phone] Tenisha MendietaC Unavailable Julio Monk-C Unavailable Luis Armando Eller MD Unavailable [phone] Jayesh Pineda MD Unavailable Kelsi Tejada MD Unavailable Unavailable Pretty Le MD Unavailable Vesta Michael PA-C Unavailable [phone] [facility] Unavailable [phone] Encounter Details Date Type Department Care Team Description 06/19/2023 SCAN [facility] Medical [facility] 175 [facility] [address] [place] [address] Danielle Soni APRN Social History [...] 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, MULTIPLE CUT OFF SAW OPERATOR, CHANDRAKANT) 06/14/2020 Sex Assigned at Date Recorded Female 08/03/2020 10:16 PM EDT Job Start Date Occupation Industry Not on file Not on file Not on file documented as of this encounter Plan of Treatment Not on file documented as of this encounter Visit Diagnoses Not on filedocumented in this encounter Care Teams Program Advisor Relationship Specialty Start Date End Date Ora Ronquillo MD 444 [place] [address] PCP - General Internal Medicine 10/11/21 Jl Mendez MD [address] [place] [address] Dr Montiel [address] [place] [address] Specialist Cardiovascular Disease 10/13/21 Jannette Boudreaux MD [address] [address] Surgeon Neurosurgery 04/07/22 Tenisha Mendieta PA-C [address] [address] Specialist Neurosurgery 04/07/22 Julio Monk PA-C [address] [address] Specialist Neurosurgery 04/07/22 Luis Armando Eller MD [address] [address] Specialist ORTHOPEDIC SURGERY 10/01/23 Jayesh Pineda MD 305 [place] [address] Specialist Endocrinology 10/01/23 Kelsi Tejada MD 305 [place] [address] Specialist Allergy & Immunology 10/01/23 Pretty Le MD 175 [facility] 200 [place] [address] Specialist Pulmonology 10/01/23 Vesta Michael PA-C 300 [facility] [address] [place] [address] Specialist Vascular Surgery 10/01/23 [facility] 46 [place] [address] Specialist Optometry 10/01/23 documented as of this encounter
--- OUTSIDE RECORDS SUMMARY | 2024-05-20 10:57 | XMS_ITS | Encounter Summary ---
Author Organization [facility] Address [address] [place] [address] Care Team Providers Care Mold Inspector Name Role Phone Teressa Solis DO Primary Care Pro vider Unavailable Mina Pretty DO Primary Care Provider Ailyn Shweta Pretty MD Primary Care Provider Ora Diaz MD Primary Care Prov ider Jl Mendez MD Unavailable Jannette Boudreaux MD Unavailable [phone] Tenisha Mendieta PA-C Unavailable [phone] Julio Monk PA-C Unavailable Luis Armando Eller MD Unavailable [phone] Jayesh Pineda MD Unavailable Kelsi Tejada MD Unavailable Unavailable Pretty Le MD Unavailable Vesta Michael PA-C Unavailable [phone] [facility] Unavailable Encounter Details Date Type Department Care Team Description 06/01/2020 Forensic Medical Examiner Report Medical Records 4 [place] [address] Abstract, Provider Social History Tobacco Use Types [...] on filedocumented in this encounter Care Teams Mold Inspector Relationship Specialty Start Date End Date Teressa Solis DO PCP - General Internal Medicine 12/18/13 09/15/20 Mina Pretty DO PCP - General Internal Medicine 09/16/20 Shweta Boucher MD PCP - General Internal Medicine 01/12/21 10/10/21 Ora Ronquillo MD [address] [place] [address] PCP - General Internal Medicine 10/11/21 Jl Mendez MD [address] [place] [address] Dr Montiel [address] [place] [address] Specialist Cardiovascular Disease 10/13/21 Jannette Boudreaux MD [address] [address] Surgeon Neurosurgery 04/07/22 Tenisha Mendieta PA-C [address] [address] Specialist Neurosurgery 04/07/22 Julio Monk PA-C 175 [facility] [address] [place] [address] Specialist Neurosurgery 04/07/22 Luis Armando Eller MD [address] [address] Specialist ORTHOPEDIC SURGERY 10/01/23 Jayesh Pineda MD [address] [place] [address] Specialist Endocrinology 10/01/23 Kelsi Tejada MD 305 [place] [address] Specialist Allergy & Immunology 10/01/23 Pretty Le MD 175 [facility] [address] [place] [address] Specialist Pulmonology 10/01/23 Vesta Michael PA-C 300 [facility] 210 [place] [address] Specialist Vascular Surgery 10/01/23 [facility] 46 [place] [address] Specialist Optometry 10/01/23 documented as of this encounter
--- OUTSIDE RECORDS SUMMARY | 2024-05-20 10:57 | XMS_ITS | Encounter Summary ---
Author Organization [facility] Address [address] [place] [address] Care Team Providers Care Lastex Thread Winder Name Role Phone Ora Ronquillo MD Primary Care Prov ider Jl Mendez MD Unavailable Jannette Boudreaux MD Unavailable [phone] Tenisha Mendieta PA-C Unavailable Julio Monk PA-C Unavailable Luis Armando Eller MD Unavailable [phone] Jayesh Pineda MD Unavailable Kelsi Tejada MD Unavailable Unavailable Pretty Le MD Unavailable Vesta Michael PA-C Unavailable [phone] [facility] Unavailable Reason for Visit * Reason Onset Date Comments Wound Infection 01/18/2023 Pt feels she vini ht have a wound infection in the area of her Minor surgery Encounter Details Date Type Department Care Team Description 01/18/2023 Telephone General Surgery - [place] 175 [facility] [address] [place] [address] Unruly Ferrera MD [address] [address] Wound Infection (Pt feels she [...] 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, WAFER BATTER MIXER, CHANDRAKANT) 06/14/2020 Sex Assigned at Date Recorded [...] on filedocumented in this encounter Care Teams Lastex Thread Winder Relationship Specialty Start Date End Date Ora Ronquillo MD [address] [place] [address] PCP - General Internal Medicine 10/11/21 Jl Mendez MD [address] [place] [address] [place] [address] Specialist Cardiovascular Disease 10/13/21 Jannette Boudreaux MD 175 [facility] [address] [place] [address] Surgeon Neurosurgery 04/07/22 Tenisha Mendieta PA-C 175 [facility] [address] [place] [address] Specialist Neurosurgery 04/07/22 Julio Monk PA-C 175 [facility] [address] [place] [address] Specialist Neurosurgery 04/07/22 Luis Armando Eller MD [address] [address] Specialist ORTHOPEDIC SURGERY 10/01/23 Jayesh Pineda MD 305 [place] [address] Specialist Endocrinology 10/01/23 Kelsi Tejada MD 305 [place] [address] Specialist Allergy & Immunology 10/01/23 Pretty Le MD 175 [facility] [address] [place] [address] Specialist Pulmonology 10/01/23 Vesta Michael PA-C 300 [facility] [address] [place] [address] Specialist Vascular Surgery 10/01/23 [facility] [address] [place] [address] Specialist Optometry 10/01/23 documented as of this encounter
--- OUTSIDE RECORDS SUMMARY | 2024-05-20 10:57 | XMS_ITS | Data Portability ---
Author Organization [facility] [address] Address [address] [place] [address] Assessment No assessment recorded. Plan of Treatment Reminders Order Date Submit Date Provider Last Modified By Organization Details Last Modified Time Details Appointments None recorded. Lab rapid flu (A+B) 2021 022 marva zhang13 [address] [address], [address] [place], [address], 14:02:10 rapid SARS CoV 2 Ag, QL IA, respiratory specimen 2021 022 [facility] [address], [address] [place], [address], 14:02:10 Referral None recorded. Procedures None recorded. Surgeries None recorded. Imaging None recorded. Medication Orders Tamiflu 75 mg capsule 2021 [facility] #[id number], [phone] [place], [address], 03:31:38 promethazin e-DM 6.25 mg-15 mg/5 mL oral syrup 2021 [facility] #[id number], [phone] [place], [address], 14:02:13 Patient TargetsNo targets recorded. Patient Instructions Encounter Date Encounter Id Patient Instructions Last Modified By Organization Details Last Modified Time 02/20/2022 [id number] You should follow-up with your PCP in [...] y speci men Unknown Analyte Not Available [id number] [place] [address] [address] [place], [address], 02/20/2022 13:38:01 02/21/20 22 02/20/2022 rapid SARS CoV 2 Ag, QL IA, respi rator y speci men Unknown Analyte negati ve Not Available rui[address] [place], [address], 02/20/2022 13:38:01 02/21/20 22 02/20/2022 rapid flu (A+B) Unknown Analyte negati ve Not Available sprin gf [address] [place], [address], 02/20/2022 13:24:32 02/21/20 22 02/20/2022 rapid flu (A+B) Unknown Analyte Normal = Negati ve Not Available sprin gf [address] [place], [address], 02/20/2022 13:24:32 02/21/20 22 02/20/2022 rapid flu (A+B) Unknown Analyte negati ve Not Available [address] [place], [address], 02/20/2022 13:24:32 02/21/20 22 02/20/2022 rapid flu (A+B) Unknown Analyte Normal = Negati ve Not Available [address] [place], [address], 02/20/2022 13:24:32 Result Notes None recorded. Problems Name Problem SNOMED Code Status Onset Date Resolution Date Notes Provider Name and Address Organization Details Recorded Time Hypertensive disorder 69568788 Active 2021 Layne Trevino null, PA - [facility] 2 13:21:27 Hyperlipidemia 38838571 Active 2021 Layne Trevino null, PA - [facility] 2 13:21:42 Thyroiditis 80638099 Active 2021 Laynetristen Trevino null, PA - [facility] 2 13:21:59 Environmental allergy 447165942 Active 2021 Layne Trevino null, PA - [facility] 2 13:22:12 Migraine 78612146 Active 2021 Layne Trevino null, PA - [facility] 2 13:22:21 Diabetes mellitus 60296290 Active 2021 Layne Trevino null, PA - [facility] 2 13:22:34 Asthma 803177237 Active 2021 Layne Trevino null, PA - [...] Name and Address Organization Details Recorded Time 45595 Product containin g penicilli n (product) medicatio n swelling Not available high 02/20/2022 89728 8001 SNOMED Layne Trevino null, PA - [facility] 2 13:13:07 08943 Duricef medicatio n swelling Not available Not available 02/20/2022 02047 6 RxNorm Layne Trevino null, PA - [facility] 2 13:13:25 14271 Medrol medicatio n swelling Not available Not available 02/20/202240756 2 RxNorm Layne Trevino null, PA - [facility] 2 13:13:43 56810 oxycodone medicatio n Not available Not available Not available 02/20/2022 7804 RxNorm Layne Trevino null, PA - [facility] 2 13:13:52 28457 chocolate flavor food,medi cation Not available Not available Not available 02/20/2022 95480 UNDarren Trevino null, PA - [facility] 2 13:14:02 59333 almond allergeni c extract food Not available Not available Not available 02/20/2022 47527 7 RxNorm Layne Trevino null, PA - [facility] 2 13:14:09 05773 Canis lupus familiari s extract environme nt Not available Not available Not available 02/20/2022 95741 4 RxNorm Layne Trevino null, PA - [facility] 2 13:14:18 75738 cat dander environme nt Not available Not available Not available 02/20/2022 08872 UNDarren Trevino null, PA - [facility] 2 13:14:22 50398 rabbit dander environme nt Not available Not available Not available 02/20/2022 95321 UNDarren Trevino null, PA - [facility] 2 13:14:29 03243 latex environme nt,medica tion Not available Not available Not available 02/20/2022 27982 91 RxNorm Layne Trevino null, PA - [facility] 2 13:14:36 93896 house dust mite environme nt Not available Not available Not available 02/20/2022 06095 UNK Layne Trevino null, PA - [facility] 2 13:14:44 17936 POLLEN EXTRACTS environme nt,medica tion Not available Not available Not available 02/20/2022 35060 6 RxNorm Layne Trevino null, PA - [facility] 2 13:14:56 72726 grass pollen environme nt,medica tion Not available Not available Not available 02/20/2022 68324 UNK Layne Trevino null, PA - [facility] 2 13:15:03 81828 ethinyl estradiol / levonorge strel medicatio n Not available Not available Not available 02/20/2022 64645 8 RxNorm Layne Trevino null, PA - [...] Updated DateTime 2 162.56 cm 44.6 kg/m2 802107. 02 g 100 % 100 % 85 [...] Fluids From A Person With Monkeypox? No [email or web address] Information not available 02/20/2022 Do You Use Any Illicit Or Recreational Drugs? No [email or web address] Information not available 02/20/2022 Have You Recently Traveled Abroad? No [email or web address] Information not available 02/20/2022 Sex: Unknown Functional [...] SNOMED-CT Code Diagnosis ICD10 Code Diagnosis Note [id number] [address] [address] [place] [address] 04/01/2019 17:17:25 04/01/2019 18:28:03 [id number] [place] [address] [address] [place] [address] 02/20/2022 12:02:53 02/20/2022 14:03:53 Generalized aches and pains 69354297 R52 Viral syndrome 071355935 B34.9 Health Concerns Section Related Observation LastModified by Organization Detai ls LastModified Time None Recorded Concern Status LastModified by Organization Details LastModified Time None Recorded Advance Directives Directive None Recorded Payers Encounter Date Sequence Insurance Name Policy Number Policy Saleh Covered Member ID Saleh Member ID Guarantor Name 04/01/2019 1 [facility] (MEDICAID REPLACEMENT - HMO) MAGDI Ana Luisa A House [id number] Ana Luisa A House 02/20/2022 1 [facility] (MEDICAID REPLACEMENT - HMO) [place] Ana Luisa A House [id number] Ana Luisa A House Notes Date Note [...] Evelina Xiao MD [address] [place], [address], [place] - [facility] 02/20/2022 20:29:48 OBGyn Episode No OBEpisode recorded.
--- OUTSIDE RECORDS SUMMARY | 2024-05-20 10:57 | XMS_ITS | Encounter Summary ---
Author Organization [facility] Address [address] [place] [address] Care Team Providers Care Bmw Sales Consultant Name Role Phone Geno Cueva MD Primary Care Provider Unavailable Teressa Solis DO Primary Care Pro vider Unavailable Mina Pretty DO Primary Care Provider Ailyn Shweta Pretty MD Primary Care Provider Ora Diaz MD Primary Care Prov ider Jl Mendez MD Unavailable Jannette Boudreaux MD Unavailable [phone] Tenisha Mendieta PA-C Unavailable Julio Monk PA-C Unavailable Luis Armando Eller MD Unavailable [phone] Jayesh Pineda MD Unavailable Kelsi Tejada MD Unavailable Unavailable Pretty Le MD Unavailable Vesta Michael-Pina Unavailable [phone] [facility] Unavailable [phone] Encounter Details Date Type Department Care Team Description 03/11/2013 Auto Body Painter Report Medical Records [address] [place] [address] Zoltan Chu Social History Tobacco Use Types [...] on filedocumented in this encounter Care Teams Bmw Sales Consultant Relationship Specialty Start Date End Date Geno Cueva MD PCP - General Internal Medicine 06/28/1212/17/13 Teressa Solis DO PCP - General Internal Medicine 12/18/13 09/15/20 Mina Pretty DO PCP - General Internal Medicine 09/16/20 Shweta Boucher MD PCP - General Internal Medicine 01/12/21 10/10/21 Ora Ronquillo MD [address] [place] [address] PCP - General Internal Medicine 10/11/21 Jl Mendez MD [address] [place] [address] Dr Montiel [address] [place] [address] Specialist Cardiovascular Disease 10/13/21 Jannette Boudreaux MD [address] [address] Surgeon Neurosurgery 04/07/22 Tenisha Mendieta PA-C [address] [address] Specialist Neurosurgery 04/07/22 Julio Monk PA-C 175 [facility] [address] [place] [address] Specialist Neurosurgery 04/07/22 Luis Armando Eller MD [address] [address] Specialist ORTHOPEDIC SURGERY 10/01/23 Jayesh Pineda MD [address] [place] [address] Specialist Endocrinology 10/01/23 Kelsi Tejada MD 305 [place] [address] Specialist Allergy & Immunology 10/01/23 Pretty Le MD [address] [facility] [address] [place] [address] Specialist Pulmonology 10/01/23 Vesta Michael PA-C 300 [facility] 210 [place] [address] Specialist Vascular Surgery 10/01/23 [facility] [address] [place], [place] [address] Specialist Optometry 10/01/23 documented as of this encounter
--- OUTSIDE RECORDS SUMMARY | 2024-05-20 10:57 | XMS_ITS | Encounter Summary ---
Author Organization [facility] Address [address] [place] [address] Care Team Providers Care Vp Ancillary Name Role Phone Teressa Solis DO Primary Care Pro vider Unavailable Mina Pretty DO Primary Care Provider Shweta Cronin MD Primary Care Provider Ora Diaz MD Primary Care Prov ider Jl Mendez MD Unavailable [phone] Jannette Boudreaux MD Unavailable [phone] Tenisha Mendieta PA-C Unavailable Julio Monk PA-C Unavailable Luis Armando Eller MD Unavailable [phone] Jayesh Pineda MD Unavailable Kelsi Tejada MD Unavailable Unavailable Pretty Le MD Unavailable Vesta Michael PA-C Unavailable [phone] [facility] Unavailable [phone] Encounter Details Date Type Department Care Team Description 12/30/2016 Hospital Medical Records [address] [place] [address] Social History Tobacco Use Types Packs/Day Years Used Date Smoking Tobacco: Never Smokeless Tobacco: Never Alcohol Use Standard Drinks/Week Comments No 0 (1 standard drink = 0.6 oz pur e alcohol) Education Answer Date Recorded What is the highest level of school you have completed or the highest degree you have received? 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, SPORTS BROADCASTER, CHANDRAKANT) 06/14/2020 Sex Assigned at Date Recorded [...] on filedocumented in this encounter Care Teams Vp Ancillary Relationship Specialty Start Date End Date Teressa Solis DO PCP - General Internal Medicine 12/18/13 09/15/20 Mina Pretty DO PCP - General Internal Medicine 09/16/20 1 Shweta Tellez MD PCP - General Internal Medicine 01/12/21 10/10/21 Hiwot Couch, Ora Kelly MD [address] [place] [address] PCP - General Internal Medicine 10/11/21 Jl Mendez MD [address] [place] [address] Dr Montiel [address] [place] [address] Specialist Cardiovascular Disease 10/13/21 Jannette Boudreaux MD [address] [address] Surgeon Neurosurgery 04/07/22 Tenisha Mendieta PA-C [address] [address] Specialist Neurosurgery 04/07/22 Julio Monk PA-C 175 [facility] [address] [place] [address] Specialist Neurosurgery 04/07/22 Luis Armando Eller MD 175 [facility] [address] [place] [address] Specialist ORTHOPEDIC SURGERY 10/01/23 Jayesh Pineda MD [address] [place] [address] Specialist Endocrinology 10/01/23 Kelsi Tejada MD 305 [place] [address] Specialist Allergy & Immunology 10/01/23 Pretty Le MD 175 [facility] 200 [place] [address] Specialist Pulmonology 10/01/23 Vesta Michael PA-C 300 [facility] [address] [place] [address] Specialist Vascular Surgery 10/01/23 [facility] [address] [place] [address] Specialist Optometry 10/01/23 documented as of this encounter
--- OUTSIDE RECORDS SUMMARY | 2024-05-20 10:57 | XMS_ITS | Encounter Summary ---
Author Organization [facility] Address [address] [place] [address] Care Team Providers Care Personnel Generalist Manager Name Role Phone Shweta Tellez MD Primary Care Provider Ora Diaz MD Primary Care Prov ider Jl Mendez MD Unavailable Jannette Boudreaux MD Unavailable [phone] Tenisha Mendieta PA-C Unavailable [phone] Julio Monk PA-C Unavailable [phone] Luis Armando Eller MD Unavailable [phone] Jayesh Pineda MD Unavailable Kelsi Tejada MD Unavailable Unavailable Pretty Le MD Unavailable Vesta Michael PA-C Unavailable [facility] Unavailable Encounter Details Date Type Department Care Team Description 05/11/2021 Orders Only Endocrinology - [place] [address] [place] [address] Jayesh Pineda MD [address] [place], [place] [id number] Hyperparathyroidism (HCC) (Primary Dx) Social History Tobacco [...] degree (e.g., MA, MS, Lexi, MEd, SENIOR MICROSOFT CONSULTANT, CHANDRAKANT) 06/14/2020 Sex Assigned at Date [...] unspecified documented in this encounter Care Teams Personnel Generalist Manager Relationship Specialty Start Date End Date Shweta Tellez MD PCP - General Internal Medicine 01/12/21 10/10/21 Ora Ronquillo MD [address] [place], [place] [phone] PCP - General Internal Medicine 10/11/21 Jl Mendez MD [address] [place] [address] [place] [address] Specialist Cardiovascular Disease 10/13/21 Jannette Boudreaux MD 175 [facility] [address] [place] [address] Surgeon Neurosurgery 04/07/22 Tenisha Mendieta PA-C 175 [facility] [address] [place] [address] Specialist Neurosurgery 04/07/22 Julio Monk PA-C 175 [facility] [address] [place] [address] Specialist Neurosurgery 04/07/22 Luis Armando Eller MD 175 [facility] [address] [place] [address] Specialist ORTHOPEDIC SURGERY 10/01/23 Jayesh Pineda MD 305 [place] [address] Specialist Endocrinology 10/01/23 Kelsi Tejada MD 305 [place] [address] Specialist Allergy & Immunology 10/01/23 Pretty Le MD 175 [facility] [address] [place] [address] Specialist Pulmonology 10/01/23 Vesta Michael PA-C 300 [facility] [address] [place] [address] Specialist Vascular Surgery 10/01/23 [facility] [address] [place] [address] Specialist Optometry 10/01/23 documented as of this encounter
--- OUTSIDE RECORDS SUMMARY | 2024-05-20 10:57 | XMS_ITS | Encounter Summary ---
Author Organization [facility] Address [address] [place] [address] Care Team Providers Care Chief Of Surgery Name Role Phone Teressa Solis DO Primary Care Pro vider Unavailable Mina Pretty DO Primary Care Provider Ailyn Shweta Pretty MD Primary Care Provider Ora Diaz MD Primary Care Prov ider Jl Mendez MD Unavailable Jannette Boudreaux MD Unavailable [phone] Tenisha Mendieta PA-C Unavailable Julio Monk PA-C Unavailable [phone] Luis Armando Eller MD Unavailable [phone] Jayesh Pineda MD Unavailable Kelsi Tejada MD Unavailable Unavailable Pretty Le MD Unavailable Vesta Michael PA-C Unavailable [facility] Unavailable Encounter Details Date Type Department Care Team Description 08/26/2015 Orders Only Adult Medicine [address] [id number] Teressa Solis DO Hypothyroidism due to acquired [...] - 4.00 mIU/ml 08/30/2015 1:09 PM EDT [facility] 08/30/2015 11:1 3 AM EDT 08/30/2015 11:13 AM EDT Teressa Grace DO LAB [facility] 444 [facility] documented in this encounter Visit Diagnoses Diagnosis Hypothyroidism due to acquired atrophy of thyroid- Primary documented in this encounter Care Teams Chief Of Surgery Relationship Specialty Start Date End Date Teressa Solis DO PCP - General Internal Medicine 12/18/13 09/15/20 Mina Pretty DO PCP - General Internal Medicine 09/16/20 1 Shweta Tellez MD PCP - General Internal Medicine 01/12/21 10/10/21 Ora Ronquillo MD [address] [place] [address] PCP - General Internal Medicine 10/11/21 Jl Mendez MD [address] [place] [address] Dr Montiel [address] [place] [address] Specialist Cardiovascular Disease 10/13/21 Jannette Boudreaux MD [address] [address] Surgeon Neurosurgery 04/07/22 Tenisha Mendieta PA-C [address] [address] Specialist Neurosurgery 04/07/22 Julio Monk PA-C 175 [facility] 300 [place] [address] Specialist Neurosurgery 04/07/22 Luis Armando Eller MD [address] [facility] 250 [place] [address] Specialist ORTHOPEDIC SURGERY 10/01/23 Jayesh Pineda MD 305 [place] [address] Specialist Endocrinology 10/01/23 Kelsi Tejada MD 305 [place] [address] Specialist Allergy & Immunology 10/01/23 Pretty Le MD 175 [facility] 200 [place] [address] Specialist Pulmonology 10/01/23 Vesta Michael PA-C 300 [facility] 210 [place] [address] Specialist Vascular Surgery 10/01/23 [facility] [address] [place] [address] Specialist Optometry 10/01/23 documented as of this encounter
--- OUTSIDE RECORDS SUMMARY | 2024-05-20 10:57 | XMS_ITS | Encounter Summary ---
Author Organization [facility] Address [address] [place] [address] Care Team Providers Care Trimmer And Reinforcer Name Role Phone Teressa Solis DO Primary Care Pro vider Unavailable Mina Pretty DO Primary Care Provider Shweta Cronin MD Primary Care Provider Ora Diaz MD Primary Care Prov ider Jl Mendez MD Unavailable [phone] Jannette Boudreaux MD Unavailable [phone] Tenisha Mendieta PA-C Unavailable Julio Monk PA-C Unavailable Luis Armando Eller MD Unavailable [phone] Jayesh Pineda MD Unavailable Kelsi Tejada MD Unavailable Unavailable Pretty Le MD Unavailable Vesta Michael PA-C Unavailable [facility] Unavailable Encounter Details Date Type Department Care Team Description 01/22/2017 Administrative Law Judge Report Medical Records [address] [place] [address] Abstract, Provider Social History Tobacco Use Types [...] on filedocumented in this encounter Care Teams Trimmer And Reinforcer Relationship Specialty Start Date End Date Teressa Solis DO PCP - General Internal Medicine 12/18/13 09/15/20 Mina Pretty DO PCP - General Internal Medicine 09/16/20 Shweta Boucher MD PCP - General Internal Medicine 01/12/21 10/10/21 Ora Ronquillo MD [address] [place] [address] PCP - General Internal Medicine 10/11/21 Jl Mendez MD [address] [place] [address] Specialist Cardiovascular Disease 10/13/21 Jannette Boudreaux MD [address] [address] Surgeon Neurosurgery 04/07/22 Tenisha Mendieta PA-C [address] [address] Specialist Neurosurgery 04/07/22 Julio Monk PA-C [address] [address] Specialist Neurosurgery 04/07/22 Luis Armando Eller MD [address] [address] Specialist ORTHOPEDIC SURGERY 10/01/23 Jayesh Pineda MD 305 [place] [address] Specialist Endocrinology 10/01/23 Kelsi Tejada MD 305 [place] [address] Specialist Allergy & Immunology 10/01/23 Pretty Le MD 175 [facility] [address] [place] [address] Specialist Pulmonology 10/01/23 Vesta Michael PA-C 300 [facility] [address] [place] [address] Specialist Vascular Surgery 10/01/23 [facility] [address] [place] [address] Specialist Optometry 10/01/23 documented as of this encounter
--- OUTSIDE RECORDS SUMMARY | 2024-05-20 10:57 | XMS_ITS | Encounter Summary ---
Author Organization [facility] Address [address] [place] [address] Care Team Providers Care Director Data Management Name Role Phone Teressa Solis DO Primary Care Pro vider Unavailable Mina Pretty DO Primary Care Provider Shweta Cronin MD Primary Care Provider Ora Diaz MD Primary Care Prov ider Jl Mendez MD Unavailable Jannette Boudreaux MD Unavailable [phone] Tenisha Mendieta PA-C Unavailable Julio Monk PA-C Unavailable [phone] Luis Armando Eller MD Unavailable [phone] Jayesh Pineda MD Unavailable Kelsi Tejada MD Unavailable Unavailable Pretty Le MD Unavailable Vesta Michael PA-C Unavailable [facility] Unavailable Encounter Details Date Type Department Care Team Description 06/11/2018 Orders Only Adult Medicine [address] [id number] Teressa Solis DO Hypothyroidism due to acquired [...] Primary documented in this encounter Care Teams Director Data Management Relationship Specialty Start Date End Date Teressa Solis DO PCP - General Internal Medicine 12/18/13 09/15/20 Mina Pretty DO PCP - General Internal Medicine 09/16/20 1 Shweta Tellez MD PCP - General Internal Medicine 01/12/21 10/10/21 Ora Ronquillo MD [address] [place] [address] PCP - General Internal Medicine 10/11/21 Jl Mendez MD [address] [place] [address] Dr Montiel [address] [place] [address] Specialist Cardiovascular Disease 10/13/21 Jannette Boudreaux MD [address] [address] Surgeon Neurosurgery 04/07/22 Tenisha Mendieta PA-C 175 [facility] 300 [place] [address] Specialist Neurosurgery 04/07/22 Julio Monk PA-C 175 [facility] [address] [place] [address] Specialist Neurosurgery 04/07/22 Luis Armando Eller MD 175 [facility] 250 [place] [address] Specialist ORTHOPEDIC SURGERY 10/01/23 Jayesh Pineda MD 305 [place] [address] Specialist Endocrinology 10/01/23 Kelsi Tejada MD 305 [place] [address] Specialist Allergy & Immunology 10/01/23 Pretty Le MD 175 [facility] [address] [place] [address] Specialist Pulmonology 10/01/23 Vesta Michael PA-C 300 [facility] 210 [place] [address] Specialist Vascular Surgery 10/01/23 [facility] 46 [place] [address] Specialist Optometry 10/01/23 documented as of this encounter
--- OUTSIDE RECORDS SUMMARY | 2024-05-20 10:57 | XMS_ITS | Encounter Summary ---
Author Organization [facility] Address [address] [place] [address] Care Team Providers Care Hand Paster Name Role Phone Ora Ronquillo MD Primary Care Prov ider Jl Mendez MD Unavailable Jannette Boudreaux MD Unavailable [phone] Tenisha Mendieta PA-C Unavailable Julio MonkC Unavailable Luis Armando Eller MD Unavailable [phone] Jayesh Pineda MD Unavailable Kelsi Tejada MD Unavailable Unavailable Pretty Le MD Unavailable Vesta Michael PA-C Unavailable [phone] [facility] Unavailable [phone] Encounter Details Date Type Department Care Team Description 09/26/2022 Mechanical Supervisor Report Medical Records [address] [place] [address] Jensen Nam MD Social History Tobacco Use Types Packs/Day Years Used Date Smoking Tobacco: Never Smokeless Tobacco: Never Alcohol Use Standard Drinks/Week Comments No 0 (1 standard drink = 0.6 oz pur e alcohol) Education Answer Date Recorded What is the highest level of school you have completed or the highest degree you have received? 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, [employer], [employer]AN[employer]) 06/14/2020 Sex Assigned at Date Recorded [...] on filedocumented in this encounter Care Teams Hand Paster Relationship Specialty Start Date End Date Ora Ronquillo MD [address] [place] [address] PCP - General Internal Medicine 10/11/21 Jl Mendez MD [address] [place] [address] Dr Mont[address] [place] [address] Specialist Cardiovascular Disease 10/13/21 Jannette Boudreaux MD 175 [facility] 300 [place] [address] Surgeon Neurosurgery 04/07/22 Tenisha Mendieta PA-C [address] [address] Specialist Neurosurgery 04/07/22 Julio Monk PA-C 175 [facility] 300 [place] [address] Specialist Neurosurgery 04/07/22 Luis Armando Eller MD [address] [address] Specialist ORTHOPEDIC SURGERY 10/01/23 Jayesh Pineda MD 305 [place] [address] Specialist Endocrinology 10/01/23 Kelsi Tejada MD 305 [place] [address] Specialist Allergy & Immunology 10/01/23 Pretty Le MD 175 [facility] 200 [place] [address] Specialist Pulmonology 10/01/23 Vesta Michael PA-C 300 [facility] 210 [place] [address] Specialist Vascular Surgery 10/01/23 [facility] 46 [place] [address] Specialist Optometry 10/01/23 documented as of this encounter
--- OUTSIDE RECORDS SUMMARY | 2024-05-20 10:58 | XMS_ITS | Encounter Summary ---
Author Organization [facility] Address [address] [place] [address] Care Team Providers Care Welding Machine Operator Electron Beam Name Role Phone Teressa Solis DO Primary Care Pro vider Unavailable Mina Pretty DO Primary Care Provider Shweta Cronin MD Primary Care Provider Ora Diaz MD Primary Care Prov ider Jl Mendez MD Unavailable Jannette Boudreaux MD Unavailable [phone] Tenisha Mendieta PA-C Unavailable Julio MonkC Unavailable Luis Armando Eller MD Unavailable [phone] Jayesh Pineda MD Unavailable Kelsi Tejada MD Unavailable Unavailable Pretty Le MD Unavailable Vesta Michael PA-C Unavailable [facility] Unavailable Reason for Visit * Reason Comments E-prescribe Rx Request Encounter Details Date Type Department Care Team Description 04/07/2019 Refill Allergy [place] 98 98 [place] [address] Kelsi Tejada MD E-prescribe Rx Request Social [...] sinusitis documented in this encounter Care Teams Welding Machine Operator Electron Beam Relationship Specialty Start Date End Date Teressa Solis DO PCP - General Internal Medicine 12/18/13 09/15/20 Mina Pretty DO PCP - General Internal Medicine 09/16/20 Shweta Boucher MD PCP - General Internal Medicine 01/12/21 10/10/21 Ora Ronquillo MD [address] [place] [address] PCP - General Internal Medicine 10/11/21 Jl Mendez MD [address] [place] [address] Dr Mont[address] [place] [address] Specialist Cardiovascular Disease 10/13/21 Jannette Boudreaux MD [address] [address] Surgeon Neurosurgery 04/07/22 Tenisha Mendieta PA-C [address] [address] Specialist Neurosurgery 04/07/22 Julio Monk PA-C [address] [address] Specialist Neurosurgery 04/07/22 Luis Armando Eller MD [address] [address] Specialist ORTHOPEDIC SURGERY 10/01/23 Jayesh Pineda MD 305 [place] [address] Specialist Endocrinology 10/01/23 Kelsi Tejada MD 305 [place] [address] Specialist Allergy & Immunology 10/01/23 Pretty Le MD 175 [facility] [address] [place] [address] Specialist Pulmonology 10/01/23 Vesta Michael PA-C 300 [facility] 210 [place] [address] Specialist Vascular Surgery 10/01/23 [facility] 46 [place], [place] 7084189 Specialist Optometry 10/01/23 documented as of this encounter
--- OUTSIDE RECORDS SUMMARY | 2024-05-20 10:58 | XMS_ITS | Encounter Summary ---
Author Organization [facility] Address [address] [place] [address] Care Team Providers Care Dive Master Name Role Phone Teressa Solis DO Primary Care Pro vider Unavailable Mina Pretty DO Primary Care Provider Shweta Cronin MD Primary Care Provider Ora Diaz MD Primary Care Prov ider Jl Mendez MD Unavailable Jannette Boudreaux MD Unavailable [phone] Tenisha Mendieta PA-C Unavailable Julio Monk PA-C Unavailable Luis Armando Eller MD Unavailable [phone] Jayesh Pineda MD Unavailable Kelsi Tejada MD Unavailable Unavailable Pretty Le MD Unavailable Vesta Michael PA-C Unavailable [facility] Unavailable Reason for Visit * Reason Comments E-prescribe Rx Request Encounter Details Date Type Department Care Team Description 03/27/2019 Refill Adult Medicine [address] [id number] Teressa Solis DO E-prescribe Rx Request Social [...] an upcoming appointment? No-unable to reach left [facility] to call for appointment due to refill [...] [facility] / Plan: Individual Digital ALLIANCE / Product Type: MEDICAID RISK documented in this encounter Plan of Treatment Not on file documented as of this encounter Visit Diagnoses Not on filedocumented in this encounter Care Teams Dive Master Relationship Specialty Start Date End Date Teressa Solis DO PCP - General Internal Medicine 12/18/13 09/15/20 Mina Pretty DO PCP - General Internal Medicine 09/16/20 Shweta Boucher MD PCP - General Internal Medicine 01/12/21 10/10/21 Ora Ronquillo MD [address] [place] [address] PCP - General Internal Medicine 10/11/21 Jl Mendez MD [address] [place] [address] Dr Montiel [address] [place] [address] Specialist Cardiovascular Disease 10/13/21 Jannette Boudreaux MD [address] [address] Surgeon Neurosurgery 04/07/22 Tenisha Mendieta PA-C [address] [address] Specialist Neurosurgery 04/07/22 Julio Monk PA-C 175 [facility] [address] [place] [address] Specialist Neurosurgery 04/07/22 Luis Armando Eller MD [address] [address] Specialist ORTHOPEDIC SURGERY 10/01/23 Jayesh Pineda MD 305 [place] [address] Specialist Endocrinology 10/01/23 Kelsi Tejada MD 305 [place] [address] Specialist Allergy & Immunology 10/01/23 Pretty Le MD 175 [facility] [address] [place] [address] Specialist Pulmonology 10/01/23 Vesta Michael PA-C 300 [facility] 210 [place] [address] Specialist Vascular Surgery 10/01/23 [facility] 46 [place] [address] Specialist Optometry 10/01/23 documented as of this encounter
--- OUTSIDE RECORDS SUMMARY | 2024-05-20 10:58 | XMS_ITS | Encounter Summary ---
Author Organization [facility] Address [address] [place] [address] Care Team Providers Care Sole Leveler Name Role Phone Ora Ronquillo MD Primary Care Prov ider Jl Mendez MD Unavailable Jannette Boudreaux MD Unavailable [phone] Tenisha Mendieta PA-C Unavailable Julio Monk PA-C Unavailable [phone] Luis Armando Eller MD Unavailable [phone] Jayesh Pineda MD Unavailable Kelsi Tejada MD Unavailable Unavailable Pretty Le MD Unavailable Vesta Michael PA-C Unavailable [facility] Unavailable Encounter Details Date Type Department Care Team Description 01/10/2023 SCAN [facility] Medical [facility] 175 [facility] [address] [place] [address] Lorie Moore, DONN 1515 [facility] [place] [address] Social History Tobacco Use Types Packs/Day Years Used Date Smoking Tobacco: Never Smokeless Tobacco: Never Alcohol Use Standard Drinks/Week Comments No 0 (1 standard drink = 0.6 oz pur e alcohol) Education Answer Date Recorded What is the highest level of school you have completed or the highest degree you have received? 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, [employer]FA[employer]URING [employer], CHANDRAKANT) 06/14/2020 Sex Assigned at [...] on filedocumented in this encounter Care Teams Sole Leveler Relationship Specialty Start Date End Date Ora Ronquillo MD 444 [place] [address] PCP - General Internal Medicine 10/11/21 Jl Mendez MD [address] [place] [address] Dr Mont[address] [place] [address] Specialist Cardiovascular Disease 10/13/21 Jannette Boudreaux MD [address] [address] Surgeon Neurosurgery 04/07/22 Tenisha Mendieta PA-C [address] [address] Specialist Neurosurgery 04/07/22 Julio Monk PA-C 175 [facility] [address] [place] [address] Specialist Neurosurgery 04/07/22 Luis Armando Eller MD [address] [address] Specialist ORTHOPEDIC SURGERY 10/01/23 Jayesh Pineda MD 305 [place] [address] Specialist Endocrinology 10/01/23 Kelsi Tejada MD 305 [place] [address] Specialist Allergy & Immunology 10/01/23 Pretty Le MD 175 [facility] [address] [place] [address] Specialist Pulmonology 10/01/23 Vesta Michael PA-C 300 [facility] 210 [place] [address] Specialist Vascular Surgery 10/01/23 [facility] 46 [place], [place] [address] Specialist Optometry 10/01/23 documented as of this encounter
--- OUTSIDE RECORDS SUMMARY | 2024-05-20 10:58 | XMS_ITS | Encounter Summary ---
Author Organization [facility] Address [address] [place] [address] Care Team Providers Care Assembler Adjuster Name Role Phone Teressa Slois DO Primary Care Pro vider Unavailable Mina Pretty DO Primary Care Provider Shweta Cronin MD Primary Care Provider Ora Diaz MD Primary Care Prov ider Jl Mendez MD Unavailable [phone] Jannette Boudreaux MD Unavailable [phone] Tenisha Mendieta PA-C Unavailable [phone] Julio Monk PA-C Unavailable Luis Armando Eller MD Unavailable [phone] Jayesh Pineda MD Unavailable Kelsi Tejada MD Unavailable Unavailable Pretty Le MD Unavailable Vesta Michael PA-C Unavailable [phone] [facility] Unavailable Encounter Details Date Type Department Care Team Description 03/13/2019 Telephone Allergy [place] 98 98 [place] [address] Kelsi Tejada MD Social History [...] filedocumented in this encounter Care Teams Assembler Adjuster Relationship Specialty Start Date End Date Teressa Solis DO PCP - General Internal Medicine 12/18/13 09/15/20 Mina Pretty DO PCP - General Internal Medicine 09/16/20 Shweta Boucher MD PCP - General Internal Medicine 01/12/21 10/10/21 Ora Ronquillo MD [address] [place] [address] PCP - General Internal Medicine 10/11/21 Jl Mendez MD [address] [place] [address] Dr Mont[address] [place] [address] Specialist Cardiovascular Disease 10/13/21 Jannette Boudreaux MD [address] [address] Surgeon Neurosurgery 04/07/22 Tenisha Mendieta PA-C [address] [address] Specialist Neurosurgery 04/07/22 Julio Monk PA-C [address] [address] Specialist Neurosurgery 04/07/22 Luis Armando Eller MD [address] [address] Specialist ORTHOPEDIC SURGERY 10/01/23 Jayesh Pineda MD 305 [place] [address] Specialist Endocrinology 10/01/23 Kelsi Tejada MD 305 [place] [address] Specialist Allergy & Immunology 10/01/23 Pretty Le MD 175 [facility] [address] [place] [address] Specialist Pulmonology 10/01/23 Vesta Michael PA-C 300 [facility] 210 [place] [address] Specialist Vascular Surgery 10/01/23 [facility] 46 [place] [address] Specialist Optometry 10/01/23 documented as of this encounter
--- OUTSIDE RECORDS SUMMARY | 2024-05-20 10:58 | XMS_ITS | Encounter Summary ---
Author Organization [facility] Address [address] [place] [address] Care Team Providers Care Fit Model Name Role Phone Geno Cueva MD Primary Care Provider Unavailable Teressa Solis DO Primary Care Pro vider Unavailable Mina Pretty DO Primary Care Provider Ailyn Shweta Pretty MD Primary Care Provider Ora Diaz MD Primary Care Prov ider Jl Mendez MD Unavailable Jannette Boudreaux MD Unavailable [phone] Tenisha Mendieta PA-C Unavailable [phone] Julio Monk PA-C Unavailable [phone] Luis Armando Eller MD Unavailable [phone] Jayesh Pineda MD Unavailable Kelsi Tejada MD Unavailable Unavailable Pretty Le MD Unavailable Vesta Michael-C Unavailable [phone] [facility] Unavailable Encounter Details Date Type Department Care Team Description 10/01/2013 Orders Only WASH OPERATOR - [address] [address] Social History Tobacco Use Types [...] on filedocumented in this encounter Care Teams Fit Model Relationship Specialty Start Date End Date Geno Cueva MD PCP - General Internal Medicine 06/28/1212/17/13 Teressa Solis DO PCP - General Internal Medicine 12/18/13 09/15/20 Mina Pretty DO PCP - General Internal Medicine 09/16/20 1 Shweta Tellez MD PCP - General Internal Medicine 01/12/21 10/10/21 Ora Ronquillo MD [address] [place] [address] PCP - General Internal Medicine 10/11/21 Jl Mendez MD [address] [place] [address] Dr [address] [place] [address] Specialist Cardiovascular Disease 10/13/21 Jannette Boudreaux MD [address] [address] Surgeon Neurosurgery 04/07/22 Tenisha Mendieta PA-C [address] [address] Specialist Neurosurgery 04/07/22 Julio Monk PA-C [address] [address] Specialist Neurosurgery 04/07/22 Luis Armando Eller MD [address] [address] Specialist ORTHOPEDIC SURGERY 10/01/23 Jayesh Pineda MD [address] [place] [address] Specialist Endocrinology 10/01/23 Kelsi Tejada MD 305 [place] [address] Specialist Allergy & Immunology 10/01/23 Pretty Le MD 175 [facility] [address] [place] [address] Specialist Pulmonology 10/01/23 Vesta Michael PA-C 300 [facility] 210 [place] [address] Specialist Vascular Surgery 10/01/23 [facility] 46 [place] [address] Specialist Optometry 10/01/23 documented as of this encounter
--- OUTSIDE RECORDS SUMMARY | 2024-05-20 10:58 | XMS_ITS | Encounter Summary ---
Author Organization [facility] Address [address] [place] [address] Care Team Providers Care Direct Marketing Intern Name Role Phone Teressa Solis DO Primary Care Pro vider Unavailable Mina Pretty DO Primary Care Provider Ailyn Shweta Pretty MD Primary Care Provider UnaOra Randall MD Primary Care Prov ider Jl Mendez MD Unavailable Jannette Boudreaux MD Unavailable [phone] Tenisha Mendieta PA-C Unavailable Julio Monk PA-C Unavailable [phone] Luis Armando Eller MD Unavailable [phone] Jayesh Pineda MD Unavailable Kelsi Tejada MD Unavailable Unavailable Pretty Le MD Unavailable Vesta Michael PA-C Unavailable [phone] [facility] Unavailable [phone] Encounter Details Date Type Department Care Team Description 10/07/2018 [facility] Adult [address] [address] Deborah Addison PA-C Social History [...] MG capsule [Deborah Addison PA-C] Preferred pharmacy: [facility] [id number] [place] [address] DUANE ONOFRE AT [facility] Comment: Medication renewals requested in [...] on filedocumented in this encounter Care Teams Direct Marketing Intern Relationship Specialty Start Date End Date Teressa Solis DO PCP - General Internal Medicine 12/18/13 09/15/20 Mina Pretty DO PCP - General Internal Medicine 09/16/20 Shweta Boucher MD PCP - General Internal Medicine 01/12/21 10/10/21 Ora Ronquillo MD 444 [place] [address] PCP - General Internal Medicine 10/11/21 Jl Mendez MD [address] [place] [address] Dr Montiel [address] [place] [address] Specialist Cardiovascular Disease 10/13/21 Jannette Boudreaux MD [address] [address] Surgeon Neurosurgery 04/07/22 Tenisha Mendieta PA-C [address] [address] Specialist Neurosurgery 04/07/22 Julio Monk PA-C [address] [address] Specialist Neurosurgery 04/07/22 Luis Armando Eller MD [address] [address] Specialist ORTHOPEDIC SURGERY 10/01/23 Jayesh Pineda MD 305 [place] [address] Specialist Endocrinology 10/01/23 Kelsi Tejada MD 305 [place] [address] Specialist Allergy & Immunology 10/01/23 Pretty Le MD 175 [facility] 200 [place] [address] Specialist Pulmonology 10/01/23 Vesta Michael PA-C 300 [facility] 210 [place] [address] Specialist Vascular Surgery 10/01/23 [facility] [address] [place] [address] Specialist Optometry 10/01/23 documented as of this encounter
--- OUTSIDE RECORDS SUMMARY | 2024-05-20 10:58 | XMS_ITS | Encounter Summary ---
Author Organization [facility] Address [address] [place] [address] Care Team Providers Care Fresh Foods Technician Name Role Phone Teressa Solis DO Primary Care Pro vider Unavailable Mina Pretty DO Primary Care Provider Shweta Cronin MD Primary Care Provider Ora Diaz MD Primary Care Prov ider Jl Mendez MD Unavailable Jannette Boudreaux MD Unavailable [phone] Tenisha Mendieta PA-C Unavailable Julio Monk PA-C Unavailable Luis Armando Eller MD Unavailable [phone] Jayesh Pineda MD Unavailable Kelsi Tejada MD Unavailable Unavailable Pretty Le MD Unavailable Vesta Michael PA-C Unavailable [facility] Unavailable [phone] Reason for Visit * Reason Onset Date Comments allergy injection 01/20/2019 Encounter Details Date Type Department Care Team Description 01/20/2019 Telephone Allergy [place] 98 98 [place] [address] Kelsi Tejada MD allergy injection [...] if fax was recevied with documention, # [phone] documented in this encounter Plan of Treatment Not on file documented as of this encounter Visit Diagnoses Not on filedocumented in this encounter Care Teams Fresh Foods Technician Relationship Specialty Start Date End Date Teressa Solis, PCP - General Internal Medicine 12/18/13 09/15/20 Mina Pretty DO PCP - General Internal Medicine 09/16/20 Shweta Boucher MD PCP - General Internal Medicine 01/12/21 10/10/21 Ora Ronquillo MD [address] [place] [address] PCP - General Internal Medicine 10/11/21 Jl Mendez MD [address] [place] [address] [place] [address] Specialist Cardiovascular Disease 10/13/21 Jannette Boudreaux MD [address] [address] Surgeon Neurosurgery 04/07/22 Tenisha Mendieta PA-C [address] [address] Specialist Neurosurgery 04/07/22 Julio Monk PA-C 175 [facility] 300 [place] [address] Specialist Neurosurgery 04/07/22 Luis Armando Eller MD 175 [facility] 250 [place] [address] Specialist ORTHOPEDIC SURGERY 10/01/23 Jayesh Pineda MD [address] [place] [address] Specialist Endocrinology 10/01/23 Kelsi Tejada MD [address] [place] [address] Specialist Allergy & Immunology 10/01/23 Pretty Le MD 175 [facility] 200 [place] [address] Specialist Pulmonology 10/01/23 Vesta Michael PA-C 300 [facility] 210 [place] [address] Specialist Vascular Surgery 10/01/23 [facility] 46 [place] [address] Specialist Optometry 10/01/23 documented as of this encounter
--- OUTSIDE RECORDS SUMMARY | 2024-05-20 10:58 | XMS_ITS | Encounter Summary ---
Author Organization [facility] Address [address] [place] [address] Care Team Providers Care Tumbler Machine Operator Name Role Phone Geno Cueva MD Primary Care Provider Unavailable Teressa Solis DO Primary Care Pro vider Unavailable Mina Pretty DO Primary Care Provider Ailyn Shweta Pretty MD Primary Care Provider Ora Diaz MD Primary Care Prov ider Jl Mendez MD Unavailable [phone] Jannette Boudreaux MD Unavailable [phone] Tenisha Mendieta PA-C Unavailable Julio Monk PA-C Unavailable Luis Armando Eller MD Unavailable [phone] Jayesh Pineda MD Unavailable Kelsi Tejada MD Unavailable Unavailable Pretty Le MD Unavailable Vesta Michael-Pina Unavailable [phone] [facility] Unavailable Reason for Visit * Reason Onset Date Comments Provider Call Back 11/03/2013 Encounter Details Date Type Department Care Team Description 11/03/2013 Telephone Adult Medicine [address] [id number] Lisandra Gracia PA-C Provider Call Back Social [...] Miscellaneous Notes * Telephone Encounter - Lisandra Garcia PA-C - 11/03/2013 12:56 PM EDT Ana [...] Primary documented in this encounter Care Teams Tumbler Machine Operator Relationship Specialty Start Date End Date Geno Cueva MD PCP - General Internal Medicine 06/28/1212/17/13 Teressa Solis DO PCP - General Internal Medicine 12/18/13 09/15/20 Mina Pretty DO PCP - General Internal Medicine 09/16/20 1 Shweta Tellez MD PCP - General Internal Medicine 01/12/21 10/10/21 Ora Ronquillo MD [address] [place] [address] PCP - General Internal Medicine 10/11/21 Jl Mendez MD [address] [place] [address] Dr Mont[address] [place] [address] Specialist Cardiovascular Disease 10/13/21 Jannette Boudreaux MD 175 [facility] 300 [place] [address] Surgeon Neurosurgery 04/07/22 Tenisha Mendieta PA-C [address] [address] Specialist Neurosurgery 04/07/22 Julio Monk PA-C [address] [address] Specialist Neurosurgery 04/07/22 Luis Armando Eller MD [address] [address] Specialist ORTHOPEDIC SURGERY 10/01/23 Jayesh Pineda MD 305 [place] [address] Specialist Endocrinology 10/01/23 Kelsi Tejada MD 305 [place] [address] Specialist Allergy & Immunology 10/01/23 Pretty Le MD 175 [facility] 200 [place] [address] Specialist Pulmonology 10/01/23 Vesta Michael PA-C 300 [facility] 210 [place] [address] Specialist Vascular Surgery 10/01/23 [facility] [address] [place], [place] [address]89 Specialist Optometry 10/01/23 documented as of this encounter
--- OUTSIDE RECORDS SUMMARY | 2024-05-20 10:58 | XMS_ITS | Encounter Summary ---
Author Organization [facility] Address [address] [place] [address] Care Team Providers Care Information Systems Security Manager Name Role Phone Teressa Solis DO Primary Care Pro vider Unavailable Mina Pretty DO Primary Care Provider Shweta Cronin MD Primary Care Provider Ora Diaz MD Primary Care Prov ider Jl Mendez MD Unavailable Jannette Boudreaux MD Unavailable [phone] Tenisha Mendieta PA-C Unavailable Julio Monk PA-C Unavailable Luis Armando Eller MD Unavailable [phone] Jayesh Pineda MD Unavailable Kelsi Tejada MD Unavailable Unavailable Pretty Le MD Unavailable Vesta Michael PA-C Unavailable [phone] [facility] Unavailable Reason for Visit * Reason Onset Date Comments allergy injection 03/10/2019 Encounter Details Date Type Department Care Team Description 03/10/2019 Telephone Adult [facility] 98 [address] [place] [address] Kelsi Tejada MD allergy injection [...] set up for 03/18/19 at 3pm. The lpn or medical assistant will call then. BSR- please transfer the call to clinical staff. * Telephone Encounter - Nola Campbell R.N. - 03/13/2019 5:41 PM EST Call placed to [facility] to arrange peer to peer. On hold [...] PM EST Appeal done for Jonathanala with [facility]. Appeal denied due to fact that patient [...] AM EST Return call to Leon of [email or web address]. Discussed patient's status for Nucala, dx past treatments, labs. Leon will put forth to pharmacy staff. If appeal still not acceptable asked if Dr. Tejada willing to have peer to peer. Leon to call back if appeal continues to deny medication and will arrange peer to peer. * Telephone Encounter - Earnestine Martinez - 03/10/2019 11:35 AM EST [facility] calling, would like call back to discuss appeal for patients Nucala. documented in this encounter Plan of Treatment Not on file documented as of this encounter Visit Diagnoses Not on filedocumented in this encounter Care Teams Information Systems Security Manager Relationship Specialty Start Date End Date Teressa Solis DO PCP - General Internal Medicine 12/18/13 09/15/20 Mina Pretty DO PCP - General Internal Medicine 09/16/20 Shweta Boucher MD PCP - General Internal Medicine 01/12/21 10/10/21 Ora Ronquillo MD [address] [place] [address] PCP - General Internal Medicine 10/11/21 Jl Mendez MD [address] [place] [address] Dr Mont[address] [place] [address] Specialist Cardiovascular Disease 10/13/21 Jannette Boudreaux MD 175 [facility] [address] [place] [address] Surgeon Neurosurgery 04/07/22 Tenisha Mendieta PA-C 175 [facility] [address] [place] [address] Specialist Neurosurgery 04/07/22 Julio Monk PA-C 175 [facility] 300 [place], [place] 4[address] Specialist Neurosurgery 04/07/22 Luis Armando Eller MD 175 [facility] 250 [place] [address] Specialist ORTHOPEDIC SURGERY 10/01/23 Jayesh Pindea MD 305 [place] [address] Specialist Endocrinology 10/01/23 Kelsi Tejada MD 305 [place] [address] Specialist Allergy & Immunology 10/01/23 Pretty Le MD 175 [facility] 200 [place] [address] Specialist Pulmonology 10/01/23 Vesta Michael PA-C 300 [facility] 210 [place] [address] Specialist Vascular Surgery 10/01/23 [facility] [address] [place] [address] Specialist Optometry 10/01/23 documented as of this encounter
--- OUTSIDE RECORDS SUMMARY | 2024-05-20 10:58 | XMS_ITS | Encounter Summary ---
Author Organization [facility] Address [address] [place] [address] Care Team Providers Care Sales Commissions Analyst Name Role Phone Mina Pretty DO Primary Care Provider Shweta Cronin MD Primary Care Provider Ora Diaz MD Primary Care Prov ider Jl Mendez MD Unavailable [phone] Jannette Boudreaux MD Unavailable [phone] Tenisha Mendieta PA-C Unavailable [phone] Julio Monk PA-C Unavailable [phone] Luis Armando Eller MD Unavailable [phone] Jayesh Pineda MD Unavailable Kelsi Tejada MD Unavailable Unavailable Pretty Le MD Unavailable Vesta Michael PA-C Unavailable [phone] [facility] Unavailable [phone] Encounter Details Date Type Department Care Team Description 09/17/2020 Orders Only Internal Medicine - [address], [address] [place] [address] Darrick Schroeder PA-C Dysuria; Constipation, unspecified constipation [...] 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, DIRECTOR HEDIS, CHANDRAKANT) 06/14/2020 Sex Assigned at Date Recorded [...] location documented in this encounter Care Teams Sales Commissions Analyst Relationship Specialty Start Date End Date Mina Pertty DO PCP - General Internal Medicine 09/16/20 1 Shweta Tellez MD PCP - General Internal Medicine 01/12/21 10/10/21 Ora Ronquillo MD [address] [place] [address] PCP - General Internal Medicine 10/11/21 Jl Mendez MD [address] [place] [address] [place] [address] Specialist Cardiovascular Disease 10/13/21 Jannette Boudreaux MD [address] [address] Surgeon Neurosurgery 04/07/22 Tenisha Mendieta PA-C 175 [facility] 300 [place] [address] Specialist Neurosurgery 04/07/22 Julio Monk PA-C 175 [facility] 300 [place] [address] Specialist Neurosurgery 04/07/22 Luis Armando Eller MD 175 [facility] 250 [place] [address] Specialist ORTHOPEDIC SURGERY 10/01/23 Jayesh Pineda MD 305 [place] [address] Specialist Endocrinology 10/01/23 Kelsi Tejada MD 305 [place] [address] Specialist Allergy & Immunology 10/01/23 Pretty Le MD 175 [facility] 200 [place] [address] Specialist Pulmonology 10/01/23 Vesta Michael PA-C 300 [facility] 210 [place] [address] Specialist Vascular Surgery 10/01/23 [facility] 46 [place] [address] Specialist Optometry 10/01/23 documented as of this encounter
--- OUTSIDE RECORDS SUMMARY | 2024-05-20 10:58 | XMS_ITS | Encounter Summary ---
Author Organization [facility] Address [address] [place] [address] Care Team Providers Care Shake Cutter Name Role Phone Teressa Solis DO Primary Care Pro vider Unavailable Mina Pretty DO Primary Care Provider Ailyn Shweta Pretty MD Primary Care Provider UnaOra Randall MD Primary Care Prov ider Jl Mendez MD Unavailable [phone] Jannette Boudreaux MD Unavailable [phone] Tenisha Mendieta PA-C Unavailable [phone] Julio Monk PA-C Unavailable Luis Armando Eller MD Unavailable [phone] Jayesh Pineda MD Unavailable Kelsi Tejada MD Unavailable Unavailable Pretty Le MD Unavailable Vesta Michael PA-C Unavailable [facility] Unavailable Reason for Referral * Non VLAD (Routine) - Closed Specialty Diagnoses / Procedures Referred By Janie castillo Referred To Contact Vascular Surgery Procedures REFERRAL TO VASCULAR SURGERY (IN NETWORK) Teressa Solis DO [address] [place] [address] Jeff Ogden MD 300 [facility] [address] [place] [address] Referral ID Status Reason Start Date Expiration Date Visits Re quested Visits Authorized [id number] Closed 11/18/2018 11/18/2019 1 1 Reason for Visit * Reason Onset Date Comments Child Nutrition Manager Feedback 11/18/2018 Dr. Ogden Encounter Details Date Type Department Care Team Description 11/18/2018 Telephone Adult [address] [address] Teressa Solis DO Child Nutrition Manager Feedback (Dr. Ogden) Social History Tobacco Use [...] today? Payor: [employer] FFS / Plan: [employer] ALLIANCE / Product Type: MEDICAID RISK Effective [...] insurance must be obtained and registered in [facility] or their referral can not be processed. Is this a retro request? NO. If yes for what date of service do you need the retro referral? N/A Who is calling to request this referral? The Patient If the caller is not the patient, what is their name? N/A Ask the patient WHO referred them to this specialty: Patient saw Allyn Vidales at [facility] for the problem and was told if [...] this visit:Initial Visit Address of Specialist: [address] [place] [address], [address] , [place] [address] Phone # of Specialist: [phone] Fax #: (if applicable): [phone] Does patient have an appointment scheduled?: NO Date of appointment- (including a retro-request): Is this appointment related to: Not MVA, WC or Surgery related documented in this encounter Plan of Treatment Not on file documented as of this encounter Visit Diagnoses Not on filedocumented in this encounter Care Teams Shake Cutter Relationship Specialty Start Date End Date Teressa Solis DO PCP - General Internal Medicine 12/18/13 09/15/20 Mina Pretty DO PCP - General Internal Medicine 09/16/20 Shweta Boucher MD PCP - General Internal Medicine 01/12/21 10/10/21 Ora Ronquillo MD [address] [place] [address] PCP - General Internal Medicine 10/11/21 Jl Mendez MD [address] [place] [address] Dr Montiel [address] [place] [address] Specialist Cardiovascular Disease 10/13/21 Jannette Boudreaux MD [address] [address] Surgeon Neurosurgery 04/07/22 Tenisha Mendieta PA-C [address] [address] Specialist Neurosurgery 04/07/22 Julio Monk PA-C [address] [address] Specialist Neurosurgery 04/07/22 Luis Armando Eller MD [address] [address] Specialist ORTHOPEDIC SURGERY 10/01/23 Jayesh Pineda MD 305 [place] [address] Specialist Endocrinology 10/01/23 Kelsi Tejada MD 305 [place] [address] Specialist Allergy & Immunology 10/01/23 Pretty Le MD 175 [facility] 200 [place] [address] Specialist Pulmonology 10/01/23 Vesta Michael PA-C 300 [facility] 210 [place] [address] Specialist Vascular Surgery 10/01/23 [facility] 46 [place], [place] [address] Specialist Optometry 10/01/23 documented as of this encounter
--- OUTSIDE RECORDS SUMMARY | 2024-05-20 10:58 | XMS_ITS | Encounter Summary ---
Author Organization [facility] Address [address] [place] [address] Care Team Providers Care Name Role Phone Teressa Solis DO Primary Care Pro vider Unavailable Mina Pretty DO Primary Care Provider Shweta Cronin MD Primary Care Provider Ora Diaz MD Primary Care Prov ider Jl Mendez MD Unavailable Jannette Boudreaux MD Unavailable [phone] Tenisha Mendieta PA-C Unavailable Julio Monk PA-C Unavailable Luis Armando Eller MD Unavailable [phone] Jayesh Pineda MD Unavailable Kelsi Tejada MD Unavailable Unavailable Pretty Le MD Unavailable Vesta Michael PA-C Unavailable [facility] Unavailable Reason for Visit * Reason Comments E-prescribe Rx Request Encounter Details Date Type Department Care Team Description 07/17/2018 Refill Adult Medicine [address] [id number] Teressa Solis DO E-prescribe Rx Request Social [...] N/A Patients current insurance carrier is: Payor: [employer] FFS / Plan: [employer] ALLIANCE / Product Type: MEDICAID RISK documented in this encounter Plan of Treatment Not on file documented as of this encounter Visit Diagnoses Not on filedocumented in this encounter Care Teams Relationship Specialty Start Date End Date Teressa Solis DO PCP - General Internal Medicine 12/18/13 09/15/20 Mina Pretty DO PCP - General Internal Medicine 09/16/20 Shweta Boucher MD PCP - General Internal Medicine 01/12/21 10/10/21 Ora Ronquillo MD [address] [place] [address] PCP - General Internal Medicine 10/11/21 Jl Mendez MD [address] [place] [address] Dr Mont[address] [place] [address] Specialist Cardiovascular Disease 10/13/21 Jannette Boudreaux MD [address] [address] Surgeon Neurosurgery 04/07/22 Tenisha Mendieta PA-C [address] [address] Specialist Neurosurgery 04/07/22 Julio Monk PA-C 175 [facility] 300 [place] [address] Specialist Neurosurgery 04/07/22 Luis Armando Eller MD [address] [address] Specialist ORTHOPEDIC SURGERY 10/01/23 Jayesh Pineda MD 305 [place] [address] Specialist Endocrinology 10/01/23 Kelsi Tejada MD 305 [place] [address] Specialist Allergy & Immunology 10/01/23 Pretty Le MD 175 [facility] [address] [place] [address] Specialist Pulmonology 10/01/23 Vesta Michael PA-C 300 [facility] 210 [place] [address] Specialist Vascular Surgery 10/01/23 [facility] 46 [place] [address] Specialist Optometry 10/01/23 documented as of this encounter
--- OUTSIDE RECORDS SUMMARY | 2024-05-20 10:58 | XMS_ITS | Encounter Summary ---
Author Organization [facility] Address [address] [place] [address] Care Team Providers Care Animation Director Name Role Phone Teressa Solis DO Primary Care Pro vider Unavailable Mina Pretty DO Primary Care Provider Shweta Cronin MD Primary Care Provider Ora Diaz MD Primary Care Prov ider Jl Mendez MD Unavailable Jannette Boudreaux MD Unavailable [phone] Tenisha Mendieta PA-C Unavailable Julio Monk PA-C Unavailable Luis Armando Eller MD Unavailable [phone] Jayesh Pineda MD Unavailable Kelsi Tejada MD Unavailable Unavailable Pretty Le MD Unavailable Vesta Michael PA-C Unavailable [facility] Unavailable Reason for Visit * Reason Comments E-prescribe Rx Request Encounter Details Date Type Department Care Team Description 03/07/2019 Refill Adult Medicine [address] [phone] Deborah Addison PA-C E-prescribe Rx Request Social [...] N/A Patients current insurance carrier is: Payor: [employer] FFS / Plan: [employer] ALLIANCE / Product Type: MEDICAID RISK documented in this encounter Plan of Treatment Not on file documented as of this encounter Visit Diagnoses Not on filedocumented in this encounter Care Teams Animation Director Relationship Specialty Start Date End Date Teressa Solis DO PCP - General Internal Medicine 12/18/13 09/15/20 Mina Pretty DO PCP - General Internal Medicine 09/16/20 Shweta Boucher MD PCP - General Internal Medicine 01/12/21 10/10/21 Ora Ronquillo MD 444 [place] [address] PCP - General Internal Medicine 10/11/21 Jl Mendez MD [address] [place] [address] Dr Montiel [address] [place] [address] Specialist Cardiovascular Disease 10/13/21 Jannette Boudreaux MD 175 [facility] 300 [place] [address] Surgeon Neurosurgery 04/07/22 Tenisha Mendieta PA-C [address] [address] Specialist Neurosurgery 04/07/22 Julio Monk PA-C 175 [facility] 300 [place] [address] Specialist Neurosurgery 04/07/22 Luis Armando Eller MD 175 [facility] 250 [place] [address] Specialist ORTHOPEDIC SURGERY 10/01/23 Jayesh Pineda MD 305 [place] [address] Specialist Endocrinology 10/01/23 Kelsi Tejada MD 305 [place] [address] Specialist Allergy & Immunology 10/01/23 Pretty Le MD 175 [facility] 200 [place] [address] Specialist Pulmonology 10/01/23 Vesta Michael PA-C 300 [facility] 210 [place] [address] Specialist Vascular Surgery 10/01/23 [place] [address] [place] [address] Specialist Optometry 10/01/23 documented as of this encounter
--- OUTSIDE RECORDS SUMMARY | 2024-05-20 10:58 | XMS_ITS | Encounter Summary ---
Author Organization [facility] Address [address] [place] [address] Care Team Providers Care Typist Name Role Phone Ora Ronquillo MD Primary Care Prov ider Jl Mendez MD Unavailable Jannette Boudreaux MD Unavailable [phone] Tenisha Mendieta PA-C Unavailable Julio Monk PA-C Unavailable Luis Armando Eller MD Unavailable [phone] Jayesh Pineda MD Unavailable Kelsi Tejada MD Unavailable Unavailable Pretty Le MD Unavailable Vesta Michael PA-C Unavailable [phone] [facility] Unavailable [phone] Encounter Details Date Type Department Care Team Description 01/08/2023 SCAN [facility] Medical [facility] 175 [facility] [address] [place] [address] Lorie Moore, DONN 1515 [facility] [place] [address] Social History Tobacco Use Types Packs/Day Years Used Date Smoking Tobacco: Never Smokeless Tobacco: Never Alcohol Use Standard Drinks/Week Comments No 0 (1 standard drink = 0.6 oz pur e alcohol) Education Answer Date Recorded What is the highest level of school you have completed or the highest degree you have received? 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, ANGIOGRAPHY TECHNOLOGIST, CHANDRAKANT) 06/14/2020 Sex Assigned at Date Recorded [...] on filedocumented in this encounter Care Teams Typist Relationship Specialty Start Date End Date Ora Ronquillo MD 444 [place] [address] PCP - General Internal Medicine 10/11/21 Jl Mendez MD [address] [place] [address] Dr Mont[address] [place] [address] Specialist Cardiovascular Disease 10/13/21 Jannette Boudreaux MD [address] [address] Surgeon Neurosurgery 04/07/22 Tenisha Mendieta PA-C [address] [address] Specialist Neurosurgery 04/07/22 Julio Monk PA-C 175 [facility] [address] [place] [address] Specialist Neurosurgery 04/07/22 Luis Armando Eller MD [address] [address] Specialist ORTHOPEDIC SURGERY 10/01/23 Jayesh Pineda MD 305 [place] [address] Specialist Endocrinology 10/01/23 Kelsi Tejada MD 305 [place] [address] Specialist Allergy & Immunology 10/01/23 Pretty Le MD 175 [facility] [address] [place] [address] Specialist Pulmonology 10/01/23 Vesta Michael PA-C 300 [facility] 210 [place] [address] Specialist Vascular Surgery 10/01/23 [facility] 46 [place], [place] 14[address] Specialist Optometry 10/01/23 documented as of this encounter
--- OUTSIDE RECORDS SUMMARY | 2024-05-20 10:58 | XMS_ITS | Encounter Summary ---
Author Organization [facility] Address [address] [place] [address] Care Team Providers Care Roofer Vinyl Coating Name Role Phone Ora Ronquillo MD Primary Care Prov ider Jl Mendez MD Unavailable aJnnette Boudreaux MD Unavailable [phone] Tenisha Mendieta PA-C Unavailable [phone] Julio Monk PA-C Unavailable [phone] Luis Armando Eller MD Unavailable [phone] Jayesh Pineda MD Unavailable Kelsi Tejada MD Unavailable Unavailable Pretty Le MD Unavailable Vesta Michael PA-C Unavailable [facility] Unavailable Encounter Details Date Type Department Care Team Description 01/08/2023 Telephone [facility] 175 [facility] [address] [place] [address] Lorie Moore, DONN 1515 [facility] [place] [address] Social History Tobacco Use Types Packs/Day Years Used Date Smoking Tobacco: Never Smokeless Tobacco: Never Alcohol Use Standard Drinks/Week Comments No 0 (1 standard drink = 0.6 oz pur e alcohol) Education Answer Date Recorded What is the highest level of school you have completed or the highest degree you have received? 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, DISABILITY INSURANCE HEARING OFFICER, CHANDRAKANT) 06/14/2020 Sex Assigned at Date [...] on filedocumented in this encounter Care Teams Roofer Vinyl Coating Relationship Specialty Start Date End Date Ora Ronquillo MD [address] [place] [address] PCP - General Internal Medicine 10/11/21 Jl Mendez MD [address] [place] [address] Dr Montiel [address] [place] [address] Specialist Cardiovascular Disease 10/13/21 Jannette Boudreaux MD [address] [address] Surgeon Neurosurgery 04/07/22 Tenisha Mendieta PA-C [address] [address] Specialist Neurosurgery 04/07/22 Julio Monk PA-C [address] [address] Specialist Neurosurgery 04/07/22 Luis Armando Eller MD 175 [facility] [address] [place] [address] Specialist ORTHOPEDIC SURGERY 10/01/23 Jayesh Pineda MD 305 [place] [address] Specialist Endocrinology 10/01/23 Kelsi Tejada MD 305 [place] [address] Specialist Allergy & Immunology 10/01/23 Pretty Le MD 175 [facility] [address] [place] [address] Specialist Pulmonology 10/01/23 Vesta Michael PA-C 300 [facility] [address] [place] [address] Specialist Vascular Surgery 10/01/23 [facility] 46 [place] [address] Specialist Optometry 10/01/23 documented as of this encounter
--- OUTSIDE RECORDS SUMMARY | 2024-05-20 10:58 | XMS_ITS | Encounter Summary ---
Author Organization [facility] Address [address] [place] [address] Care Team Providers Care Bindery Worker Name Role Phone Teressa Solis DO Primary Care Pro vider Unavailable Mina Pretty DO Primary Care Provider Shweta Cronin MD Primary Care Provider Ora Diaz MD Primary Care Prov ider Jl Mendez MD Unavailable Jannette Boudreaux MD Unavailable [phone] Tenisha Mendieta PA-C Unavailable Julio Monk PA-C Unavailable Luis Armando Eller MD Unavailable [phone] Jayesh Pineda MD Unavailable Kelsi Tejada MD Unavailable Unavailable Pretty Le MD Unavailable Vesta [place] PA-C Unavailable [phone] [facility] Unavailable Reason for Visit * Reason Comments E-prescribe Rx Request Encounter Details Date Type Department Care Team Description 08/17/2018 Refill Adult Medicine [address] [phone] Teressa Solis DO E-prescribe Rx Request Social [...] THE PATIENT'S LAST APPOINTMENT IN ADULT MEDICINE? [id number] WHEN WAS THE LAST TIME THE PATIENT SAW THEIR PCP? Same as above Does patient have an upcoming appointment? Yes [id number] (THE MEDICATION REQUESTED IS ON THE MED [...] N/A Patients current insurance carrier is: Payor: [employer] FFS / Plan: [employer]IANCE / Product Type: MEDICAID RISK documented in this encounter Plan of Treatment Not on file documented as of this encounter Visit Diagnoses Not on filedocumented in this encounter Care Teams Bindery Worker Relationship Specialty Start Date End Date Teressa Solis DO PCP - General Internal Medicine 12/18/13 09/15/20 Mina Pretty DO PCP - General Internal Medicine 09/16/20 Shweta Boucher MD PCP - General Internal Medicine 01/12/21 10/10/21 Ora Ronquillo MD 444 [place] [address] PCP - General Internal Medicine 10/11/21 Jl Mendez MD [address] [place] [address] Dr Montiel [address] [place] [address] Specialist Cardiovascular Disease 10/13/21 Jannetet Boudreaux MD [address] [address] Surgeon Neurosurgery 04/07/22 Tenisha Mendieta PA-C [address] [facility] 300 [place] [address] Specialist Neurosurgery 04/07/22 Julio Monk PA-C 175 [facility] 300 [place] [address] Specialist Neurosurgery 04/07/22 Luis Armando Eller MD [address] [facility] 250 [place] [address] Specialist ORTHOPEDIC SURGERY 10/01/23 Jayesh Pineda MD 305 [place] [address] Specialist Endocrinology 10/01/23 Kelsi Tejada MD 305 [place] [address] Specialist Allergy & Immunology 10/01/23 Pretty Le MD 175 [facility] 200 [place] [address] Specialist Pulmonology 10/01/23 Vesta [place] PA-C [address] [address] Specialist Vascular Surgery 10/01/23 [facility] 46 [place] [address] Specialist Optometry 10/01/23 documented as of this encounter
--- OUTSIDE RECORDS SUMMARY | 2024-05-20 10:59 | XMS_ITS | Continuity of Care Document ---
Author Organization [facility] Address [address] [place] [address], [address] [place] [address]- Care Team Providers Care Sql Ssrs Developer Name Role Phone Teressa Solis DO Primary Care Nicky [email or web address] Encounter [facility] Date(s): 04/17/24 - 05/17/24 [facility] [address] [place] [address] Drive [address] [place] [address]- Encounter Type: Triage Allergies, Adverse Reactions, Alerts Substance Criticality Severity Reaction Reaction Severity Status penicillin throat swelling/facial swelling Active Duricef difficulty breathing/facial swelling Active Animal Dander sneezing Active Chocolate snezzing/runny nose Active Latex hives,itching Active Other Food Allergy Almonds-a naphalaxis msg Active Other Environmental Allergy MSG edema Active Medrol Dosepak edema Activ e Medications [...] Refills, Maintenance, 11/02/23 2:36:00 PM EDT, Solution, [facility], Partial fill upon patient [...] Team Personnel Name: Teressa Solis DO Position: [facility] Physician - Primary Care Member Role: PCP Address: [address] [place], [place] [address] Telecom: Care Team Related Persons Name: JULIEN GARCÍA Name: ALFREDO WARREN Insurance Providers Guarantor name: JULIEN BARRY Health Plan Information #: 1 Payer: [facility] Member Number: NA Policy Number: NA Group Number: NA Health Plan Information #: 2 Payer: [facility] Member Number: NA Policy Number: NA Group Number: NA
--- OUTSIDE RECORDS SUMMARY | 2024-05-20 10:59 | XMS_ITS | Encounter Summary ---
Author Organization [facility] Address [address] [place] [address] Care Team Providers Care Survey Technician Name Role Phone Treessa Solis DO Primary Care Pro vider Unavailable Mina Pretty DO Primary Care Provider Shweta Cronin MD Primary Care Provider Ora Diaz MD Primary Care Prov ider Jl Mendez MD Unavailable Jannette Boudreaux MD Unavailable [phone] Tenisha Mendieta PA-C Unavailable Julio MonkC Unavailable [phone] Luis Armando Eller MD Unavailable [phone] Jayesh Pineda MD Unavailable Kelsi Tejada MD Unavailable Unavailable Pretty Le MD Unavailable Vesta [place] PA-C Unavailable [phone] [facility] Unavailable [phone] Reason for Visit * Reason Comments E-prescribe Rx Request Encounter Details Date Type Department Care Team Description 04/21/2018 Refill Adult Medicine [address] [id number] Alexia Walton MD E-prescribe Rx Request Social [...] N/A Patients current insurance carrier is: Payor: [facility] FFS / Plan: [facility] ALLIANCE / Product Type: MEDICAID RISK documented in this encounter Plan of Treatment Not on file documented as of this encounter Visit Diagnoses Not on filedocumented in this encounter Care Teams Survey Technician Relationship Specialty Start Date End Date Teressa Solis DO PCP - General Internal Medicine 12/18/13 09/15/20 Mina Pretty DO PCP - General Internal Medicine 09/16/20 1 Shweta Tellez MD PCP - General Internal Medicine 01/12/21 10/10/21 Ora Ronquillo MD 444 [place] [address] PCP - General Internal Medicine 10/11/21 Jl Mendez MD [address] [place] [address] [place] [address] Specialist Cardiovascular Disease 10/13/21 Jannette Boudreaux MD 175 [facility] 300 [place] [address] Surgeon Neurosurgery 04/07/22 Tenisha Mendieta PA-C [address] [address] Specialist Neurosurgery 04/07/22 Julio Monk PA-C 175 [facility] 300 [place] [address] Specialist Neurosurgery 04/07/22 Luis Armando Eller MD 175 [facility] 250 [place] [address] Specialist ORTHOPEDIC SURGERY 10/01/23 Jayesh Pineda MD 305 [place] [address] Specialist Endocrinology 10/01/23 Kelsi Tejada MD 305 [place] [address] Specialist Allergy & Immunology 10/01/23 Pretty Le MD 175 [facility] 200 [place] [phone] Specialist Pulmonology 10/01/23 Vesta [place] PA-C 300 [facility] 210 [place] [address] Specialist Vascular Surgery 10/01/23 [facility] 46 [place], [place] [phone] Specialist Optometry 10/01/23 documented as of this encounter
--- OUTSIDE RECORDS SUMMARY | 2024-05-20 10:59 | XMS_ITS | Encounter Summary ---
Author Organization [facility] Address [address] [place] [address] Care Team Providers Care Communications Media Professor Name Role Phone Teressa Solis DO Primary Care Pro vider Unavailable Mina Pretty DO Primary Care Provider Shweta Cronin MD Primary Care Provider Ora Diaz MD Primary Care Prov ider Jl Mendez MD Unavailable Jannette Boudreaux MD Unavailable [phone] Tenisha Mendieta PA-C Unavailable Julio Monk PA-C Unavailable [phone] Luis Armando Eller MD Unavailable [phone] Jayesh Pineda MD Unavailable Kelsi Tejada MD Unavailable Unavailable Pretty Le MD Unavailable Vesta [place] PA-C Unavailable [facility] Unavailable Reason for Visit * Reason Comments E-prescribe Rx Request Encounter Details Date Type Department Care Team Description 05/06/2020 Refill Medicine/Pediatrics [address] [phone] Teressa Solis DO E-prescribe Rx Request Social [...] N/A Patients current insurance carrier is: Payor: [employer] FFS / Plan: [employer] / Product Type: MEDICAID RISK documented in this encounter Plan of Treatment Not on file documented as of this encounter Visit Diagnoses Not on filedocumented in this encounter Care Teams Communications Media Professor Relationship Specialty Start Date End Date Teressa Solis DO PCP - General Internal Medicine 12/18/13 09/15/20 Mina Pretty DO PCP - General Internal Medicine 09/16/20 Shweta Boucher MD PCP - General Internal Medicine 01/12/21 10/10/21 Ora Ronquillo MD [address] [place] [address] PCP - General Internal Medicine 10/11/21 Jl Mendez MD [address] [place] [address] Dr Montiel [address] [place] [address] Specialist Cardiovascular Disease 10/13/21 Jannette Boudreaux MD [address] [address] Surgeon Neurosurgery 04/07/22 Tenisha Mendieta PA-C [address] [address] Specialist Neurosurgery 04/07/22 Julio Monk PA-C 175 [facility] [address] [place] [address] Specialist Neurosurgery 04/07/22 Luis Armando Eller MD [address] [address] Specialist ORTHOPEDIC SURGERY 10/01/23 Jayesh Pineda MD 305 [place] [address] Specialist Endocrinology 10/01/23 Kelsi Tejada MD 305 [place] [address] Specialist Allergy & Immunology 10/01/23 Pretty Le MD 175 [facility] [address] [place] [address] Specialist Pulmonology 10/01/23 Vesta [place] PA-C 300 [facility] 210 [place] [address] Specialist Vascular Surgery 10/01/23 [facility] 46 [place] [address] Specialist Optometry 10/01/23 documented as of this encounter
--- OUTSIDE RECORDS SUMMARY | 2024-05-20 10:59 | XMS_ITS | Clinical Summary ---
Author Organization [facility] Address [address] [place] [address] Care Team Providers Care Medical Transcriptionist Name Role Phone Ora Ronquillo MD Primary Care Prov ider Jl Mendez MD Unavailable [phone] Jannette Boudreaux MD Unavailable [phone] Tenisha Mendieta PA-C Unavailable Julio Monk PA-C Unavailable [phone] Luis Armando Eller MD Unavailable [phone] Jayesh Pineda MD Unavailable Kelsi Tejada MD Unavailable Unavailable Pretty Le MD Unavailable Vesta [place] PA-C Unavailable [facility] Unavailable [phone] Allergies Active Allergy Reactions Severity Noted Date [...] 12 11/16/2020 Active Blood Glucose Monitoring Suppl ([employer]fallsStMedHOK [place] Lite) w/Device Kit Use to test blood [...] ult 06/14/2020 Anxiety and depression 06/14/2020 Overview: [facility] Asthma, moderate persistent 05/10/2020 Last Assessment & [...] requirements Supply letter has been sent to [facility] Return to clinic in 1 year [...] ca Glaucoma Brother x 2 CAD Father [place] age 68, HTN, Diabetes, cataract, glaucoma Emphysema Maternal Grandfather CA Ovarian Maternal Grandmother uterine cancer same age CA Ovarian Mother Cancer of the Colon Mother Diabetes Mother with neuropathy , OA, Uterine Cancer Mother Lymphoma Mother's side 1 1st cousin Cancer of the Lung Mother's side 2 1st cousin Cancer of the Lung Paternal Grandfather Colon Polyps Sister x 2 glaucoma, diabe lcuiano Relation Name Status Comments Aunt 1 maternal [...] degree (e.g., MA, MS, Lexi, MEd, SUPERVISOR [employer], CHANDRAKANT) 06/14/2020 Sex Assigned at Date Recorded [...] 09/22/2014 , 05/13/2012 (External Completion) Care Teams Medical Transcriptionist Relationship Specialty Start Date End Date Ora Ronquillo MD [address] [place] [address] PCP - General Internal Medicine 10/11/21 Jl Mendez MD [address] [place] [address] [place] [address] Specialist Cardiovascular Disease 10/13/21 Jannette Boudreaux MD [address] [address] Surgeon Neurosurgery 04/07/22 Tenisha Mendieta PA-C [address] [address] Specialist Neurosurgery 04/07/22 Julio Monk PA-C [address] [address] Specialist Neurosurgery 04/07/22 Luis Armando Eller MD 175 [facility] [address] [place] [address] Specialist ORTHOPEDIC SURGERY 10/01/23 Jayesh Pineda MD 305 [place] [address] Specialist Endocrinology 10/01/23 Kelsi Tejada MD 305 [place] [address] Specialist Allergy & Immunology 10/01/23 Pretty Le MD 175 [facility] [address] [place] [address] Specialist Pulmonology 10/01/23 Vesta [place] PA-C 300 [facility] [address] [place] [address] Specialist Vascular Surgery 10/01/23 [facility] 46 [place] [address] Specialist Optometry 10/01/23
--- OUTSIDE RECORDS SUMMARY | 2024-05-20 10:59 | XMS_ITS | Encounter Summary ---
Author Organization [facility] Address [address] [place] [address] Care Team Providers Care Glass Maker Name Role Phone Teressa Solis DO Primary Care Pro vider Unavailable Mina Pretty DO Primary Care Provider Shweta Cronin MD Primary Care Provider Ora Diaz MD Primary Care Prov ider Jl Mendez MD Unavailable Jannette Boudreaux MD Unavailable [phone] Tenisha Mendieta PA-C Unavailable Julio Monk PA-C Unavailable [phone] Luis Armando Eller MD Unavailable [phone] Jayesh Pineda MD Unavailable Kelsi Tejada MD Unavailable Unavailable Pretty Le MD Unavailable Vesta [place] PA-C Unavailable [phone] [facility] Unavailable Encounter Details Date Type Department Care Team Description 07/27/2014 MACHINE SHOP WORKER/[facility] Report Medical Records [address] [place] [address] Abstract, Provider Social History Tobacco Use Types [...] on filedocumented in this encounter Care Teams Glass Maker Relationship Specialty Start Date End Date Teressa Solis DO PCP - General Internal Medicine 12/18/13 09/15/20 Mina Pretty DO PCP - General Internal Medicine 09/16/20 Shweta Boucher MD PCP - General Internal Medicine 01/12/21 10/10/21 Ora Ronquillo MD [address] [place] [address] PCP - General Internal Medicine 10/11/21 Jl Mendez MD [address] [place] [address] Specialist Cardiovascular Disease 10/13/21 Jannette Boudreaux MD [address] [address] Surgeon Neurosurgery 04/07/22 Tenisha Mendieta PA-C [address] [address] Specialist Neurosurgery 04/07/22 Julio Monk PA-C [address] [address] Specialist Neurosurgery 04/07/22 Luis Armando Eller MD [address] [address] Specialist ORTHOPEDIC SURGERY 10/01/23 Jayesh Pineda MD 305 [place] [address] Specialist Endocrinology 10/01/23 Kelsi Tejada MD 305 [place] [address] Specialist Allergy & Immunology 10/01/23 Pretty Le MD 175 [facility] [address] [place] [address] Specialist Pulmonology 10/01/23 Vesta [place] PA-C 300 [facility] 210 [place] [address] Specialist Vascular Surgery 10/01/23 [facility] 46 [place] [address] Specialist Optometry 10/01/23 documented as of this encounter
--- OUTSIDE RECORDS SUMMARY | 2024-05-20 10:59 | XMS_ITS | Encounter Summary ---
Author Organization [facility] Address [address] [place] [address] Care Team Providers Care Reinforced Concrete Inspector Name Role Phone Ora Ronquillo MD Primary Care Prov ider Jl Mendez MD Unavailable Jannette Boudreaux MD Unavailable [phone] Tenisha Mendieta-C Unavailable Julio Monk PA-C Unavailable Luis Armando Eller MD Unavailable [phone] Jayesh Pineda MD Unavailable Kelsi Tejada MD Unavailable Unavailable Pretty Le MD Unavailable Vesta [place] PA-C Unavailable [facility] Unavailable Encounter Details Date Type Department Care Team Description 11/14/2023 SCAN [facility] Medical [facility] 175 [facility] [address] [place] [phone] Lorie [place], DONN [address] [facility] [place] [address] Social History Tobacco Use Types Packs/Day Years Used Date Smoking Tobacco: Never Smokeless Tobacco: Never Alcohol Use Standard Drinks/Week Comments No 0 (1 standard drink = 0.6 oz pur e alcohol) Education Answer Date Recorded What is the highest level of school you have completed or the highest degree you have received? 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, SYSTEM ADMINISTRATOR, CHANDRAKANT) 06/14/2020 Sex Assigned at Date Recorded Female 08/03/2020 10:16 PM EDT Job Start Date Occupation Industry Not on file Not on file Not on file documented as of this encounter Plan of Treatment Not on file documented as of this encounter Visit Diagnoses Not on filedocumented in this encounter Care Teams Reinforced Concrete Inspector Relationship Specialty Start Date End Date Ora Ronquillo MD 444 [place] [address] PCP - General Internal Medicine 10/11/21 Jl Mendez MD [address] [place] [address] Dr Montiel [address] [place] [address] Specialist Cardiovascular Disease 10/13/21 Jannette Boudreaux MD [address] [address] Surgeon Neurosurgery 04/07/22 Tenisha Mendieta PA-C [address] [address] Specialist Neurosurgery 04/07/22 Julio Monk PA-C 175 [facility] 300 [place] [address] Specialist Neurosurgery 04/07/22 Luis Armando Eller MD [address] [address] Specialist ORTHOPEDIC SURGERY 10/01/23 Jayesh Pineda MD 305 [place] [address] Specialist Endocrinology 10/01/23 Kelsi Tejada MD 305 [place] [address] Specialist Allergy & Immunology 10/01/23 Pretty Le MD 175 [facility] [address] [place] [phone] Specialist Pulmonology 10/01/23 Vesta [place] PA-C 300 [facility] 210 [place] [address] Specialist Vascular Surgery 10/01/23 [facility] 46 [place] [address] Specialist Optometry 10/01/23 documented as of this encounter
--- OUTSIDE RECORDS SUMMARY | 2024-05-20 10:59 | XMS_ITS | Encounter Summary ---
Author Organization [facility] Address [address] [place] [address] Care Team Providers Care Patient Transition Specialist Name Role Phone Ora Sweeney MD Primary Care Prov ider Reason for Referral * Consultation (Routine) - Authorized Specialty Diagnoses / Procedures Referred By Janie castillo Referred To Contact Otolaryngology Diagnoses Sore throat Loss of voice Chuck Felix MD [address] [place] [address] Phone: tel: fax: [facility] 100 [facility] [address] [place] [address] Phone: tel: fax: Referral ID Status Reason Start Date Expiration Date Visits Requested Visits Authorized [id number] Authorized Specialty Services Required 05/05/2024 05/05/2025 1 1 Reason for Visit * Reason Comments Sore Throat Sore throat for 1 da y Encounter Details Date Type Department Care Team (Late st Contact Info) Description 05/05/2024 4:30 PM EST Office Visit Adult Medicine [address] [address] Chuck Felix MD [address] [place] [address] Sore throat (Primary Dx); Loss of voice [...] your loved ones. For example, child care supervisor or elderly care for an older adult? [...] hypertrophy 08/23/2021 Pulmonary eosinophilia (CMS/HCC) 07/14/2021 Hyperparathyroidism ([facility]) 03/09/2021 Diabetes mellitus type 2, controlled, without complications ([facility]) 02/16/2021 Anxiety and depression 06/14/2020 Asthma, moderate [...] 2 Alive Brother x 2 Alive Mother's ikm 1st cousin Alive Mother's kim 1st cousin PGM No partnership data on file Family History Problem Relation Name Age of Onset Breast cancer Aunt maternal x 1 50.00 Diabetes Mother with neuropathy, OA, Uterine cancer Mother 31.00 Colon cancer Mother 59.00 Ovarian cancer Mother 31.00 Coronary artery disease Father DC age 68, HTN, Diabetes, cataract, glaucoma Ovarian [...] tablet Take 1 tablet by mouth daily. zgmxfrlgpru-sovevphrgucv-icgmjvdmdc (Trelegy Ellipta) 100-62.5-25 mcg inhaler Inhale 1 Puff into the lungs daily for 363 days. FREESTYLE LANCETS [facility] Use to test blood sugars once daily [...] We discussed maintaining adequate hydration, use of nncq-upa-djblcsd agents. I decided to ask consultation from [...] Upcoming Encounters Date Type Department Care Team ([facility] st Contact Info) Description 05/28/2024 9:45 AM EDT Office Visit Adult Medicine [facility] [address] [place] [phone] Ora Sweeney MD [address] [place] [address] 06/04/2024 11:45 AM EDT Office Visit Orthopedic Surgery [facility] [address] [address] Luis Armando Eller MD [address] [address] 06/05/2024 9:45 AM EDT Office Visit Orthopedic Surgery [facility] 250 175 [facility] 250 [place] [address] Duke Dunn DPM [address] [address] 06/06/2024 2:30 PM EDT Office Visit Obstetrics and Gynecology [address] [phone] Stacie Martinez CNM [address] [place] [address] 06/09/2024 1:00 PM EDT Consult Bariatric Surgery - [place] [address] [place] [phone] Rose [place] MD 175 [facility] 120 [place] [address] 06/30/2024 10:30 AM EDT Office Visit Orthopedic Surgery [facility] 160 175 [facility] 160 [place] [phone] Luis Armando Eller MD 175 [facility] 160 [place] [address] 07/02/2024 9:30 AM EDT Office Visit Orthopedic Surgery [facility] [address] [phone] Lorie [place] NP [address] [address] 07/09/2024 9:30 AM EDT Office Visit Endocrinology [address] [address] Jayesh Pineda MD 5 [place] [address] 09/22/2024 8:45 AM EDT Office Visit Pulmonolgy - Essie [address] [phone] Pretty Le MD [address] [address] Scheduled Referrals Name Type Priority Associated Diagnoses [...] [place] documented in this encounter Care Teams Patient Transition Specialist Relationship Specialty Start Date End Date Ora Sweeney MD [address] [place] [address] PCP - General Internal Medicine 01/09/24 documented as of this encounter
--- OUTSIDE RECORDS SUMMARY | 2024-05-20 10:59 | XMS_ITS | Encounter Summary ---
Author Organization [facility] Address [address] [place] [address] Care Team Providers Care Mental Health Assistant Name Role Phone Ora Ronquillo MD Primary Care Prov ider Jl Mendez MD Unavailable [phone] Jannette Boudreaux MD Unavailable [phone] Tenisha MendietaC Unavailable Julio Monk-C Unavailable [phone] Luis Armando Eller MD Unavailable [phone] Jayesh Pineda MD Unavailable Kelsi Tejada MD Unavailable Unavailable Pretty Le MD Unavailable Vesta Michael PA-C Unavailable [facility] Unavailable [phone] Encounter Details Date Type Department Care Team Description 12/06/2023 SCAN [facility] Medical [facility] 175 [facility] [address] [place] [address] Luis Armando Eller MD 175 [facility] [address] [place], [place] [id number] Social History Tobacco Use Types Packs/Day Years Used Date Smoking Tobacco: Never Smokeless Tobacco: Never Alcohol Use Standard Drinks/Week Comments No 0 (1 standard drink = 0.6 oz pur e alcohol) Education Answer Date Recorded What is the highest level of school you have completed or the highest degree you have received? 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, PULVI MIXER OPERATOR, CHANDRAKANT) 06/14/2020 Sex Assigned at Date Recorded Female 08/03/2020 10:16 PM EDT Job Start Date Occupation Industry Not on file Not on file Not on file documented as of this encounter Plan of Treatment Not on file documented as of this encounter Visit Diagnoses Not on filedocumented in this encounter Care Teams Mental Health Assistant Relationship Specialty Start Date End Date Ora Ronquillo MD [address] [place] [address] PCP - General Internal Medicine 10/11/21 Jl Mendez MD [address] [place] [address] Dr Mont[address] [place] [address] Specialist Cardiovascular Disease 10/13/21 Jannette Boudreaux MD [address] [address] Surgeon Neurosurgery 04/07/22 Tenisha Mendieta PA-C [address] [address] Specialist Neurosurgery 04/07/22 Julio Monk PA-C [address] [address] Specialist Neurosurgery 04/07/22 Luis Armando Eller MD [address] [address] Specialist ORTHOPEDIC SURGERY 10/01/23 Jayesh Pineda MD 305 [place] [address] Specialist Endocrinology 10/01/23 Kelsi Tejada MD 305 [place] [address] Specialist Allergy & Immunology 10/01/23 Pretty Le MD 175 [facility] 200 [place] [address] Specialist Pulmonology 10/01/23 Vesta Michael PA-C 300 [facility] 210 [place] [address] Specialist Vascular Surgery 10/01/23 [facility] 46 [place] [address] Specialist Optometry 10/01/23 documented as of this encounter
--- OUTSIDE RECORDS SUMMARY | 2024-05-20 10:59 | XMS_ITS | Encounter Summary ---
Author Organization [facility] Address [address] [place] [address] Care Team Providers Care Certified Legal Secretary Specialist Name Role Phone Ora Ronquillo MD Primary Care Prov ider Jl Mendez MD Unavailable [phone] Jannette Boudreaux MD Unavailable [phone] Tenisha Mendieta PA-C Unavailable [phone] Julio Monk PA-C Unavailable [phone] Luis Armando Eller MD Unavailable [phone] Jayesh Pineda MD Unavailable Kelsi Tejada MD Unavailable Unavailable Pretty Le MD Unavailable Vesta Michael PA-C Unavailable [phone] [facility] Unavailable Encounter Details Date Type Department Care Team Description 11/20/2023 SCAN [facility] Medical [facility] 175 [facility] [address] [place] [address] Lorie Moore, DONN 1515 [facility] [place] [address] Social History Tobacco Use Types Packs/Day Years Used Date Smoking Tobacco: Never Smokeless Tobacco: Never Alcohol Use Standard Drinks/Week Comments No 0 (1 standard drink = 0.6 oz pur e alcohol) Education Answer Date Recorded What is the highest level of school you have completed or the highest degree you have received? 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, STEAM TENDER, CHANDRAKANT) 06/14/2020 Sex Assigned at Date Recorded Female 08/03/2020 10:16 PM EDT Job Start Date Occupation Industry Not on file Not on file Not on file documented as of this encounter Plan of Treatment Not on file documented as of this encounter Visit Diagnoses Not on filedocumented in this encounter Care Teams Certified Legal Secretary Specialist Relationship Specialty Start Date End Date Ora Ronquillo MD 444 [place] [address] PCP - General Internal Medicine 10/11/21 Jl Mendez MD [address] [place] [address] Dr Mont[address] [place] [address] Specialist Cardiovascular Disease 10/13/21 Jannette Boudreaux MD [address] [address] Surgeon Neurosurgery 04/07/22 Tenisha Mendieta PA-C [address] [address] Specialist Neurosurgery 04/07/22 Julio Monk PA-C 175 [facility] 300 [place] [address] Specialist Neurosurgery 04/07/22 Luis Armando Eller MD [address] [address] Specialist ORTHOPEDIC SURGERY 10/01/23 Jayesh Pineda MD 305 [place] [address] Specialist Endocrinology 10/01/23 Kelsi Tejada MD 305 [place] [address] Specialist Allergy & Immunology 10/01/23 Pretty Le MD 175 [facility] 200 [place] [address] Specialist Pulmonology 10/01/23 Vesta Michael PA-C 300 [facility] 210 [place] [address] Specialist Vascular Surgery 10/01/23 [facility] 46 [place] [address] Specialist Optometry 10/01/23 documented as of this encounter
--- OUTSIDE RECORDS SUMMARY | 2024-05-20 10:59 | XMS_ITS | Encounter Summary ---
Author Organization [facility] Address [address] [place] [address] Care Team Providers Care Fishery Biologist Name Role Phone Ora Ronquillo MD Primary Care Prov ider Jl Mendez MD Unavailable Jannette Boudreaux MD Unavailable [phone] Tenisha Mendieta PA-C Unavailable [phone] Julio Monk PA-C Unavailable [phone] Luis Armando Eller MD Unavailable [phone] Jayesh Pineda MD Unavailable Kelsi Tejada MD Unavailable Unavailable Pretty Le MD Unavailable Vesta Michael PA-C Unavailable [facility] Unavailable Encounter Details Date Type Department Care Team Description 11/30/2023 Telephone [facility] Medical [facility] 175 [facility] [address] [place] [address] Lorie Moore, DONN 1515 [facility] [place] [address] Social History Tobacco Use Types Packs/Day Years Used Date Smoking Tobacco: Never Smokeless Tobacco: Never Alcohol Use Standard Drinks/Week Comments No 0 (1 standard drink = 0.6 oz pur e alcohol) Education Answer Date Recorded What is the highest level of school you have completed or the highest degree you have received? 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, COLD STRIP ROLLER, CHANDRAKANT) 06/14/2020 Sex Assigned at Date Recorded [...] on filedocumented in this encounter Care Teams Fishery Biologist Relationship Specialty Start Date End Date Ora Ronquillo MD 444 [place] [address] PCP - General Internal Medicine 10/11/21 Jl Mendez MD [address] [place] [address] Dr Montiel [address] [place] [address] Specialist Cardiovascular Disease 10/13/21 Jannette Boudreaux MD [address] [address] Surgeon Neurosurgery 04/07/22 Tenisha Mendieta PA-C [address] [address] Specialist Neurosurgery 04/07/22 Julio Monk PA-C 175 [facility] [address] [place] [address] Specialist Neurosurgery 04/07/22 Luis Armando Eller MD [address] [address] Specialist ORTHOPEDIC SURGERY 10/01/23 Jayesh Pineda MD 305 [place] [address] Specialist Endocrinology 10/01/23 Kelsi Tejada MD 305 [place] [address] Specialist Allergy & Immunology 10/01/23 Pretty Le MD 175 [facility] [address] [place] [address] Specialist Pulmonology 10/01/23 Vesta Michael PA-C 300 [facility] 210 [place] [address] Specialist Vascular Surgery 10/01/23 [facility] 46 [place] [address] Specialist Optometry 10/01/23 documented as of this encounter
--- OUTSIDE RECORDS SUMMARY | 2024-05-20 10:59 | XMS_ITS | Encounter Summary ---
Author Organization [facility] Address [address] [place] [address] Care Team Providers Care Seed District Sales Manager Name Role Phone Ora Sweeney MD Primary Care Prov ider Reason for Visit * Reason Onset Date Comments Sore Throat 05/05/2024 Encounter Details Date Type Department Care Team ([facility] st Contact Info) Description 05/05/2024 Telephone Adult Medicine [address] [address] Ora Sweeney MD [address] [place] [address] Sore Throat (/) Social History Tobacco Use [...] care for your loved ones. For example, maternal child nurse or elderly care for an [...] recently to another state outside of [place], [place], [place], [place], [place], [place], [place]? no o If yes, did you quarantine [...] of accident/Injury: No If yes, gather 3rd green party insurance information Third Alliance Party Information: not applicable PCP: Ora Couch MD Payor: [employer]AGE / Plan: [facility] CARE OPTIONS / Product Type: *No Product type* / documented in this encounter Plan of Treatment Upcoming Encounters Date Type Department Care Team (Late st Contact Info) Description 05/28/2024 9:45 AM EDT Office Visit Adult Medicine [address] [address] Ora Sweeney MD [address] [place] [address] 06/04/2024 11:45 AM EDT Office Visit Orthopedic Surgery - [place] [address] [phone] Luis Armando Eller MD [address] [address] 06/05/2024 9:45 AM EDT Office Visit Orthopedic Surgery [facility] [address] [phone] Duke Dunn, DPM [address] [address] 06/06/2024 2:30 PM EDT Office Visit Obstetrics and Gynecology - [place] 444 [place] [address] Stacie Martinez, [facility] 444 [place] [address] 06/09/2024 1:00 PM EDT Consult Bariatric Surgery - [address] [phone] Rose Park MD [address] [address] 06/30/2024 10:30 AM EDT Office Visit Orthopedic Surgery [facility] [address] [phone] Luis Armando Eller MD [address] [address] 07/02/2024 9:30 AM EDT Office Visit Orthopedic [facility] [address] [phone] Lorie Moore NP [address] [address] 07/09/2024 9:30 AM EDT Office Visit Endocrinology - [place] 444 [place] [address] Jayesh Pineda MD 725 [place] [address] 09/22/2024 8:45 AM EDT Office Visit Pulmonolgy - [place] [address] [address] Pretty Le MD [address] [address] documented as of this encounter Visit Diagnoses Not on filedocumented in this encounter Care Teams Seed District Sales Manager Relationship Specialty Start Date End Date Ora Sweeney MD 444 [place] [address] PCP - General Internal Medicine 01/09/24 documented as of this encounter
--- OUTSIDE RECORDS SUMMARY | 2024-05-20 10:59 | XMS_ITS | Encounter Summary ---
Author Organization [facility] Address [address] [place] [address] Care Team Providers Care Furniture Restorer Name Role Phone Ora Ronquillo MD Primary Care Prov ider Jl Mendez MD Unavailable Jannette Boudreaux MD Unavailable [phone] Tenisha Mendieta PA-C Unavailable Julio MonkC Unavailable Luis Armando Eller MD Unavailable [phone] Jayesh Pineda MD Unavailable Kelsi Tejada MD Unavailable Unavailable Pretty Le MD Unavailable Vesta Michael PA-Pina Unavailable [phone] [facility] Unavailable [phone] Encounter Details Date Type Department Care Team Description 04/17/2022 Release of Information Medical Records [address] [place] [address] Abstract, Provider Social History Tobacco Use Types Packs/Day Years Used Date Smoking Tobacco: Never Smokeless Tobacco: Never Alcohol Use Standard Drinks/Week Comments No 0 (1 standard drink = 0.6 oz pur e alcohol) Education Answer Date Recorded What is the highest level of school you have completed or the highest degree you have received? 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, RENEWAL SPECIALIST, CHANDRAKANT) 06/14/2020 Sex Assigned at Date [...] on filedocumented in this encounter Care Teams Furniture Restorer Relationship Specialty Start Date End Date Ora Ronquillo MD 444 [place] [address] PCP - General Internal Medicine 10/11/21 Jl Mendez MD [address] [place] [address] Dr Mont[address] [place] [address] Specialist Cardiovascular Disease 10/13/21 Jannette Boudreaux MD 175 [facility] 300 [place] [address] Surgeon Neurosurgery 04/07/22 Tenisha Mendieta PA-C [address] [address] Specialist Neurosurgery 04/07/22 Julio Monk PA-C [address] [address] Specialist Neurosurgery 04/07/22 Luis Armando Eller MD [address] [address] Specialist ORTHOPEDIC SURGERY 10/01/23 Jayesh Pineda MD 305 [place] [address] Specialist Endocrinology 10/01/23 Kelsi Tejada MD 305 [place] [address] Specialist Allergy & Immunology 10/01/23 Pretty Le MD 175 [facility] 200 [place] [address] Specialist Pulmonology 10/01/23 Vesta Michael PA-C 300 [facility] 210 [place] [address] Specialist Vascular Surgery 10/01/23 [facility] 46 [place] [address] Specialist Optometry 10/01/23 documented as of this encounter
--- OUTSIDE RECORDS SUMMARY | 2024-05-20 10:59 | XMS_ITS | Encounter Summary ---
Author Organization [facility] Address [address] [place] [address] Care Team Providers Care Chief I Dispatcher Name Role Phone Teressa Solis DO Primary Care Pro vider Unavailable Mina Pretty DO Primary Care Provider Shweta Cronin MD Primary Care Provider Ora Diaz MD Primary Care Prov ider Jl Mendez MD Unavailable [phone] Jannette Boudreaux MD Unavailable [phone] Tenisha Mendieta PA-C Unavailable [phone] Julio MonkC Unavailable Luis Armando Eller MD Unavailable [phone] Jayesh Pineda MD Unavailable Kelsi Tejada MD Unavailable Unavailable Pretty Le MD Unavailable Vesta Michael PA-C Unavailable [phone] [facility] Unavailable Reason for Visit * Reason Comments E-prescribe Rx Request Encounter Details Date Type Department Care Team Description 04/17/2018 Refill Adult Medicine [address] [id number] Alexia Walton MD E-prescribe Rx Request Social [...] THE PATIENT'S LAST APPOINTMENT IN ADULT MEDICINE? [id number] WHEN WAS THE LAST TIME THE PATIENT SAW THEIR PCP? [id number] Does patient have an upcoming appointment? No-[facility]able to [facility] appointment due to refill [...] N/A Patients current insurance carrier is: Payor: [employer] F[employer] / Plan: [employer] / Product Type: MEDICAID RISK documented in this encounter Plan of Treatment Not on file documented as of this encounter Visit Diagnoses Not on filedocumented in this encounter Care Teams Chief I Dispatcher Relationship Specialty Start Date End Date Teressa Solis DO PCP - General Internal Medicine 12/18/13 09/15/20 Mina Pretty DO PCP - General Internal Medicine 09/16/20 Shweta Boucher MD PCP - General Internal Medicine 01/12/21 10/10/21 Ora Ronquillo MD [address] [place] [address] PCP - General Internal Medicine 10/11/21 Jl Mendez MD [address] [place] [address] Dr [address] [place] [address] Specialist Cardiovascular Disease 10/13/21 Jannette Boudreaux MD [address] [address] Surgeon Neurosurgery 04/07/22 Tenisha Mendieta PA-C [address] [address] Specialist Neurosurgery 04/07/22 Julio Monk PA-C 175 [facility] [address] [place] [address] Specialist Neurosurgery 04/07/22 Luis Armando Eller MD [address] [address] Specialist ORTHOPEDIC SURGERY 10/01/23 Jayesh Pineda MD [address] [place] [address] Specialist Endocrinology 10/01/23 Kelsi Tejada MD 305 [place] [address] Specialist Allergy & Immunology 10/01/23 Pretty Le MD 175 [facility] [address] [place] [address] Specialist Pulmonology 10/01/23 Vesta Michael PA-C 300 [facility] 210 [place] [address] Specialist Vascular Surgery 10/01/23 [facility] 46 [place], [place] [address] Specialist Optometry 10/01/23 documented as of this encounter
--- OUTSIDE RECORDS SUMMARY | 2024-05-20 10:59 | XMS_ITS | Encounter Summary ---
Author Organization [facility] Address [address] [place] [address] Care Team Providers Care Flatbed Driver Name Role Phone Teressa Solis DO Primary Care Pro vider Unavailable Mina Pretty DO Primary Care Provider Shweta Cronin MD Primary Care Provider Ora Diaz MD Primary Care Prov ider Jl Mendez MD Unavailable [phone] Jannette Boudreaux MD Unavailable [phone] Tenisha Mendieta PA-C Unavailable [phone] Julio Monk PA-C Unavailable Luis Armando Eller MD Unavailable [phone] Jayesh Pineda MD Unavailable Kelsi Tejada MD Unavailable Unavailable Pretty Le MD Unavailable Vesta Michael PA-C Unavailable [facility] Unavailable Reason for Visit * Reason Onset Date Comments Medication 02/20/2014 RE-FAX Encounter Details Date Type Department Care Team Description 02/20/2014 Telephone Adult Medicine [address] [address] Teressa Solis DO Medication (RE-FAX) [...] on filedocumented in this encounter Care Teams Flatbed Driver Relationship Specialty Start Date End Date Teressa Solis DO PCP - General Internal Medicine 12/18/13 09/15/20 Mina Pretty DO PCP - General Internal Medicine 09/16/20 1 Shweta Tellez MD PCP - General Internal Medicine 01/12/21 10/10/21 Hiwot Couch, Ora Kelly MD [address] [place] [address] PCP - General Internal Medicine 10/11/21 Jl Mendez MD [address] [place] [address] Dr Mont[address] [place] [address] Specialist Cardiovascular Disease 10/13/21 Jannette Boudreaux MD [address] [address] Surgeon Neurosurgery 04/07/22 Tenisha Mendieta PA-C [address] [address] Specialist Neurosurgery 04/07/22 Julio Monk PA-C [address] [address] Specialist Neurosurgery 04/07/22 Luis Armando Eller MD [address] [address] Specialist ORTHOPEDIC SURGERY 10/01/23 Jayesh Pineda MD [address] [place] [address] Specialist Endocrinology 10/01/23 Kelsi Tejada MD 305 [place] [address] Specialist Allergy & Immunology 10/01/23 Pretty Le MD 175 [facility] [address] [place] [address] Specialist Pulmonology 10/01/23 Vesta Michael PA-C 300 [facility] [address] [place] [address] Specialist Vascular Surgery 10/01/23 [facility] 46 [place] [address] Specialist Optometry 10/01/23 documented as of this encounter
--- OUTSIDE RECORDS SUMMARY | 2024-05-20 10:59 | XMS_ITS | Encounter Summary ---
Author Organization [facility] Address [address] [place] [address] Care Team Providers Care Chiropractic Neurologist Name Role Phone Ora Ronquillo MD Primary Care Prov ider Jl Mendez MD Unavailable Jannette Boudreaux MD Unavailable [phone] Tenisha Mendieta PA-C Unavailable Julio Monk PA-C Unavailable Luis Armando Eller MD Unavailable [phone] Jayesh Pineda MD Unavailable Kelsi Tejada MD Unavailable Unavailable Pretty Le MD Unavailable Vesta Michael PA-C Unavailable [facility] Unavailable [phone] Encounter Details Date Type Department Care Team Description 11/19/2023 SCAN [facility] Medical [facility] 175 [facility] [address] [place] [phone] Lorie Moore, DONN 1515 [facility] [place] [address] Social History Tobacco Use Types Packs/Day Years Used Date Smoking Tobacco: Never Smokeless Tobacco: Never Alcohol Use Standard Drinks/Week Comments No 0 (1 standard drink = 0.6 oz pur e alcohol) Education Answer Date Recorded What is the highest level of school you have completed or the highest degree you have received? 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, FIRE DEPARTMENT MARINE ENGINEER, CHANDRAKANT) 06/14/2020 Sex Assigned at Date Recorded Female 08/03/2020 10:16 PM EDT Job Start Date Occupation Industry Not on file Not on file Not on file documented as of this encounter Plan of Treatment Not on file documented as of this encounter Visit Diagnoses Not on filedocumented in this encounter Care Teams Chiropractic Neurologist Relationship Specialty Start Date End Date Ora Ronquillo MD 444 [place] [address] PCP - General Internal Medicine 10/11/21 Jl Mendez MD [address] [place] [address] Dr Mont[address] [place] [address] Specialist Cardiovascular Disease 10/13/21 Jannette Boudreaux MD [address] [address] Surgeon Neurosurgery 04/07/22 Tenisha Mendieta PA-C [address] [address] Specialist Neurosurgery 04/07/22 Julio Monk PA-C 175 [facility] 300 [place] [address] Specialist Neurosurgery 04/07/22 Luis Armando Eller MD [address] [address] Specialist ORTHOPEDIC SURGERY 10/01/23 Jayesh Pineda MD 305 [place] [address] Specialist Endocrinology 10/01/23 Kelsi Tejada MD 305 [place] [address] Specialist Allergy & Immunology 10/01/23 Pretty Le MD 175 [facility] 200 [place] [address] Specialist Pulmonology 10/01/23 Vesta Michael PA-C 300 [facility] 210 [place] [address] Specialist Vascular Surgery 10/01/23 [facility] 46 [place] [address] Specialist Optometry 10/01/23 documented as of this encounter
--- OUTSIDE RECORDS SUMMARY | 2024-05-20 10:59 | XMS_ITS | Encounter Summary ---
Author Organization [facility] Address [address] [place] [address] Care Team Providers Care Shoe Puller Name Role Phone Teressa Solis DO Primary Care Pro vider Unavailable Mina Pretty DO Primary Care Provider Shweta Cronin MD Primary Care Provider Ora Diaz MD Primary Care Prov ider Jl Mendez MD Unavailable [phone] Jannette Boudreaux MD Unavailable [phone] Tenisha Mendieta PA-C Unavailable Julio Monk PA-C Unavailable Luis Armando Eller MD Unavailable [phone] Jayesh Pineda MD Unavailable Kelsi Tejada MD Unavailable Unavailable Pretty Le MD Unavailable Vesta Michael PA-C Unavailable [phone] [facility] Unavailable [phone] Encounter Details Date Type Department Care Team Description 01/21/2014 Converter Skimmer Report Medical Records [address] [place] [address] Narinder Franco MD Social History Tobacco Use [...] on filedocumented in this encounter Care Teams Shoe Puller Relationship Specialty Start Date End Date Teressa Solis DO PCP - General Internal Medicine 12/18/13 09/15/20 Mina Pretty DO PCP - General Internal Medicine 09/16/20 Shweta Boucher MD PCP - General Internal Medicine 01/12/21 10/10/21 Ora Ronquillo MD [address] [place] [address] PCP - General Internal Medicine 10/11/21 Jl Mendez MD [address] [place] [address] Specialist Cardiovascular Disease 10/13/21 Jannette Boudreaux MD [address] [address] Surgeon Neurosurgery 04/07/22 Tenisha Mendieta PA-C [address] [address] Specialist Neurosurgery 04/07/22 Julio Monk PA-C [address] [address] Specialist Neurosurgery 04/07/22 Luis Armando Eller MD [address] [address] Specialist ORTHOPEDIC SURGERY 10/01/23 Jayesh Pineda MD [address] [place] [address] Specialist Endocrinology 10/01/23 Kelsi Tejada MD [address] [place] [address] Specialist Allergy & Immunology 10/01/23 Pretty Le MD 175 [facility] [address] [place] [address] Specialist Pulmonology 10/01/23 Vesta Michael PA-C 300 [facility] 210 [place] [address] Specialist Vascular Surgery 10/01/23 [facility] [address] [place] [address] Specialist Optometry 10/01/23 documented as of this encounter
--- OUTSIDE RECORDS SUMMARY | 2024-05-20 10:59 | XMS_ITS | Encounter Summary ---
Author Organization [facility] Address [address] [place] [address] Care Team Providers Care Waterproofer Helper Name Role Phone Ora Sweeney MD Primary Care Prov ider Reason for Visit * Reason Comments Flu Symptoms Conjunctivitis Encounter Details Date Type Department Care Team (Late st Contact Info) Description 04/25/2024 9:00 AM EST Office Visit Adult Medicine [facility] [address] [place] [address] Zeina Reece MD 444 [place] [address] SOB (shortness of breath) (Primary Dx); Asthma-chronic [...] your loved ones. For example, early childhood specialist or elderly care for an older [...] Flu Symptoms and Conjunctivitis IDENTIFIER: Ana Luisa Huose is a 63 y.o. old female. HPI: [...] cancer Mother 31.00 Coronary artery disease Father [place] age 68, HTN, Diabetes, cataract, glaucoma Ovarian [...] tablet Take 1 tablet by mouth daily. tpakuglrvls-ycthutpidcyt-noaxgkdogm (Trelegy Ellipta) 100-62.5-25 mcg inhaler Inhale 1 Puff into the lungs daily for 363 days. 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 #Hypertension, uncontrolled Plan: Patient will continue with her amlodipine 10 mg daily as well as clonidine 0.1 mg for hypertension as well as losartan 100 mg daily Patient will continue with lifestyle changes including diet and exercise #Hyperlipidemia Plan: Patient will continue with Lipitor 20 mg daily Patient will continue with lifestyle changes including diet and exercise Orders Placed This Encounter Procedures [id number], RSV, Influenza A and B qualitative RT-PCR XR Chest 2 Views POC rapid strep A manually resulted ADDITIONAL ORDERS: None Zeina Reece MD on 04/25/2024 at 1:14 PM EST documented in this encounter Plan of Treatment Upcoming Encounters Date Type Department Care Team (Late st Contact Info) Description 05/28/2024 9:45 AM EDT Office Visit Adult Medicine [address] [address] Ora Sweeney MD [address] [place] [address] 06/04/2024 11:45 AM EDT Office Visit Orthopedic Surgery [facility] [address] [address] Luis Armando Eller MD [address] [address] 06/05/2024 9:45 AM EDT Office Visit Orthopedic Surgery [facility] [address] [address] Duke Dunn DPM [address] [address] 06/06/2024 2:30 PM EDT Office Visit Obstetrics and Gynecology [address] [address] Stacie Martinez CNM [address] [place] [address] 06/09/2024 1:00 PM EDT Consult Bariatric Surgery - [place] 175 [facility] [address] [place] [phone] Rose Park MD 175 [facility] 120 [place] [address] 06/30/2024 10:30 AM EDT Office Visit Orthopedic Surgery [facility] 160 175 [facility] 160 [place] [phone] Luis Armando Eller MD 175 [facility] 160 [place] [address] 07/02/2024 9:30 AM EDT Office Visit Orthopedic Surgery [facility] 250 175 [facility] 250 [place] [phone] Lorie Moore NP 175 [facility] 250 [place] [address] 07/09/2024 9:30 AM EDT Office Visit Endocrinology [address] [address] Jayesh Pineda MD [address] [place] [address] 09/22/2024 8:45 AM EDT Office Visit Pulmonolgy - [place] 175 [facility] 200 [place] [phone] Pretty Le MD 175 [facility] 200 [place] [address] documented as of this encounter Procedures Procedure Name Priority Date/Time Associated Diagnosis Comments POC RAPID STREP A Routine 04/25/2024 10: 39 AM EST Sore throat URI, acute [id number], RSV, FLU A AND B QUALITATIVE RT-PCR, LOCAL REFERENCE LAB Routine 04/25/2024 10:34 AM EST URI, acute documented in this encounter Results * POC rapid strep A manually resulted (04/25/2024 10:39 AM EST) Pathologist [facility] Rapid Strep A Screen POC Negative Negative Internal Control Pass Yes Yes Swab Structure of anterior portion of neck / Unknown 04/25/2024 10:39 AM EST Zeina Reece MD POINT OF CARE TEST ENTER/ED IT ORDERABLES Final Result * [id number], RSV, Influenza A and B qualitative RT-PCR (04/25/2024 10:34 AM EST) [facility] SARS COV-2 Not Detected Not Detected LAB MOLECULAR DIAGNOSTICS METHOD 04/25/2024 4:13 PM EST [facility] Influenza A PCR Not Detected Not Detected LAB MOLECULAR DIAGNOSTICS METHOD 04/25/2024 4:13 PM EST [facility] Influenza B PCR Not Detected Not Detected LAB MOLECULAR DIAGNOSTICS METHOD 04/25/2024 4:13 PM EST [facility] RSV PCR Not Detected Not Detected LAB MOLECULAR DIAGNOSTICS METHOD 04/25/2024 4:13 PM EST [facility] Swab Nasopharyngeal structure / Unknown Non-blood Collection / Unknown 04/25/2024 10:34 AM EST 04/25/2024 10:34 AM EST Zeina Reece MD LAB MICROBIOLOGY - GENERAL ORDERABLES Final Result [facility] [address] [place] [address], [place] [phone] * XR Chest 2 Views (04/25/2024 10:10 AM EST) Anatomical Region Laterality Modality Body Radiographic Ivy ging 04/25/2024 1:15 PM EST Impressions 04/25/2024 1:15 PM EST No acute cardiopulmonary process. -------- FINAL REPORT -------- Dictated By: Malathi Pak Dictated Date: 04/25/2024 13:15 ET Assigned Physician: Malathi Pak Reviewed and Electronically Signed By: Malathi Pak Signed Date: 04/25/2024 13:15 ET Workstation ID: [id number] Transcribed By: Self Edit Transcribed Date: 04/25/2024 [...] Signed Date: 04/25/2024 13:15 ET Workstation ID: [id number] Transcribed By: Self Edit Transcribed Date: 04/25/2024 [...] documented as of this encounter Care Teams Waterproofer Helper Relationship Specialty Start Date End Date Ora Sweeney MD [address] [place] [address] PCP - General Internal Medicine 01/09/24 documented as of this encounter
--- OUTSIDE RECORDS SUMMARY | 2024-05-20 10:59 | XMS_ITS | Encounter Summary ---
Author Organization [facility] Address [address] [place] [address] Care Team Providers Care Pharmacy Operations Specialist Name Role Phone Teressa Solis DO Primary Care Pro vider Unavailable Mina Pretty DO Primary Care Provider Shweta Cronin MD Primary Care Provider Ora Diaz MD Primary Care Prov ider Jl Mendez MD Unavailable Jannette Boudreaux MD Unavailable [phone] Tenisha Mendieta PA-C Unavailable Julio Monk PA-C Unavailable Luis Armando Eller MD Unavailable [phone] Jayesh Pineda MD Unavailable Kelsi Tejada MD Unavailable Unavailable Pretty Le MD Unavailable Vesta Michael PA-C Unavailable [phone] [facility] Unavailable [phone] Encounter Details Date Type Department Care Team Description 05/19/2014 Orders Only Adult Medicine [address] [phone] Teressa Solis DO Dyslipidemia (Primary Dx) Social [...] - 200 mg/dL 12/28/2014 1:44 PM EDT [facility] TRIGLYCERIDES 192(H) 0 - 150 mg/dL 12/28/2014 1:44 PM EDT [facility] HDL CHOLESTEROL 52 >40 mg/dL 5 1:44 PM EDT [facility] LDL CALCULATED 72 0 - 100 mg/dL 12/28/2014 1:44 PM EDT [facility] TC-HDLC RATIO 3 0.0 - 4.4 mg/dL 12/28/2014 1:44 PM EDT [facility] 12/28/2014 11:0 6 AM EDT 12/28/2014 11:06 AM EDT Teressa Grace DO LAB Performing Organization Address City/State/[facility] Co de Phone Number [facility] 444 [facility] documented in this encounter Visit Diagnoses Diagnosis Dyslipidemia- Primary Other and unspecified hyperlipidemia documented in this encounter Care Teams Pharmacy Operations Specialist Relationship Specialty Start Date End Date Teressa Solis DO PCP - General Internal Medicine 12/18/13 09/15/20 Mina Pretty DO PCP - General Internal Medicine 09/16/20 1 Shweta Tellez MD PCP - General Internal Medicine 01/12/21 10/10/21 Ora Ronquillo MD 444 [place] [address] PCP - General Internal Medicine 10/11/21 Jl Mendez MD [address] [place] [address] [place] [address] Specialist Cardiovascular Disease 10/13/21 Jannette Boudreaux MD 175 [facility] 300 [place] [address] Surgeon Neurosurgery 04/07/22 Tenisha Mendieta PA-C 175 [facility] 300 [place] [address] Specialist Neurosurgery 04/07/22 Julio Monk PA-C 175 [facility] 300 [place] [address] Specialist Neurosurgery 04/07/22 Luis Armando Eller MD [address] [address] Specialist ORTHOPEDIC SURGERY 10/01/23 Jayesh Pineda MD 305 [place] [address] Specialist Endocrinology 10/01/23 Kelsi Tejada MD 305 [place] [address] Specialist Allergy & Immunology 10/01/23 Pretty Le MD 175 [facility] 200 [place] [phone] Specialist Pulmonology 10/01/23 Vesta Michael PA-C 300 [facility] 210 [place] [address] Specialist Vascular Surgery 10/01/23 [facility] 46 [place] [address] Specialist Optometry 10/01/23 documented as of this encounter
--- OUTSIDE RECORDS SUMMARY | 2024-05-20 10:59 | XMS_ITS | Encounter Summary ---
Author Organization [facility] Address [address] [place] [address] Care Team Providers Care Physician Practice Administrator Name Role Phone Ora Sweeney MD Primary Care Prov ider Encounter Details Date Type Department Care Team (Latest Contact Info) Description 04/25/2024 9:53 AM EST - 04/25/2024 11:59 PM EST Hospital Encounter XRAY - [place] [address] [place] [address] SOB (shortness of breath) Discharge Disposition: Home [...] for your loved ones. For example, attendant child activity or elderly care for an older adult? [...] daily for 363 days. 09/19/2023 FREESTYLE LANCETS [facility] Use to test blood sugars once daily [...] 9:45 AM EDT Office Visit Adult Medicine [address] [phone] Ora Sweeney MD 4 [place] [address] 06/04/2024 11:45 AM EDT Office Visit Orthopedic Surgery [facility] [address] [phone] Luis Armando Eller MD [address] [address] 06/05/2024 9:45 AM EDT Office Visit Orthopedic Surgery - [place] [address] [phone] Duke Dunn, DPM [address] [address] 06/06/2024 2:30 PM EDT Office Visit Obstetrics and Gynecology - [address] [address] Stacie Martinez, [facility] [address] [place] [address] 06/09/2024 1:00 PM EDT Consult Bariatric Surgery [address] [phone] Rose Park MD [address] [address] 06/30/2024 10:30 AM EDT Office Visit Orthopedic Surgery [facility] [address] [phone] Luis Armando Eller MD [address] [address] 07/02/2024 9:30 AM EDT Office Visit Orthopedic Surgery [facility] [address] [phone] Lorie Moore NP [address] [address] 07/09/2024 9:30 AM EDT Office Visit Endocrinology - [place] 444 [place] [address] Jayesh Pineda MD 725 [place] [address] 09/22/2024 8:45 AM EDT Office Visit Pulmonolgy - [place] 175 [facility] [address] [place] [address] Pretty Le MD 175 [facility] 200 [place] [address] documented as of this encounter Procedures Procedure [...] Signed Date: 04/25/2024 13:15 ET Workstation ID: [id number] Transcribed By: Self Edit Transcribed Date: 04/25/2024 [...] Signed Date: 04/25/2024 13:15 ET Workstation ID: [id number] Transcribed By: Self Edit Transcribed Date: 04/25/2024 [...] documented as of this encounter Care Teams Physician Practice Administrator Relationship Specialty Start Date End Date Ora Sweeney MD [address] [place] [address] PCP - General Internal Medicine 01/09/24 documented as of this encounter
--- OUTSIDE RECORDS SUMMARY | 2024-05-20 10:59 | XMS_ITS | Encounter Summary ---
Author Organization [facility] Address [address] [place] [address] Care Team Providers Care Manager Employment Name Role Phone Ora Sweeney MD Primary Care Prov ider Reason for Visit * Reason Onset Date Comments Flu Symptoms 04/24/2024 Encounter Details Date Type Department Care Team (Late st Contact Info) Description 04/24/2024 Telephone Adult Medicine [address] [address] Ora Sweeney MD [address] [place] [address] Flu Symptoms Social History Tobacco Use Types [...] your loved ones. For example, child support officer or elderly care for an older adult? [...] traveled recently to another state outside of [place], [place], [place], [place], [place], [place], [place]? no o If yes, did you [...] of accident/Injury: No If yes, gather 3rd democrat insurance information Third Democrat Information: not applicable PCP: Ora Couch MD Payor: [facility] MEDICARE ADVANTAGE / Plan: [facility] CARE OPTIONS / Product Type: *No Product type* / documented in this encounter Plan of Treatment Upcoming Encounters Date Type Department Care Team (Late st Contact Info) Description 05/28/2024 9:45 AM EDT Office Visit Adult Medicine [address] [address] Ora Sweeney MD [address] [place] [address] 06/04/2024 11:45 AM EDT Office Visit Orthopedic Surgery [facility] [address] [phone] Luis Armando Eller MD [address] [address] 06/05/2024 9:45 AM EDT Office Visit Orthopedic Surgery [place] [address] [phone] Duke Dunn, DPM [address] [address] 06/06/2024 2:30 PM EDT Office Visit Obstetrics and Gynecology [address] [address] Stacie Martinez, [facility] 444 [place] [address] 06/09/2024 1:00 PM EDT Consult Bariatric Surgery [address] [phone] Rose Park MD [address] [address] 06/30/2024 10:30 AM EDT Office Visit Orthopedic Surgery [facility] [address] [address] Luis Armando Eller MD [address] [address] 07/02/2024 9:30 AM EDT Office Visit Orthopedic [facility] [address] [phone] Lorie Moore NP [address] [address] 07/09/2024 9:30 AM EDT Office Visit Endocrinology - [place] [address] [place] [address] Jayesh Pineda MD 725 [place] [address] 09/22/2024 8:45 AM EDT Office Visit Pulmonolgy - [place] [address] [address] Pretty Le MD [address] [address] documented as of this encounter Visit Diagnoses Not on filedocumented in this encounter Care Teams Manager Employment Relationship Specialty Start Date End Date Ora Sweeney MD 4 [place] [address] PCP - General Internal Medicine 01/09/24 documented as of this encounter
--- OUTSIDE RECORDS SUMMARY | 2024-05-20 10:59 | XMS_ITS | Encounter Summary ---
Author Organization [facility] Address [address] [place] [address] Care Team Providers Care Check Weigher Name Role Phone Ora Ronquillo MD Primary Care Prov ider Jl Mendez MD Unavailable [phone] Jannette Boudreaux MD Unavailable [phone] Tenisha Mendieta PA-C Unavailable Julio Monk PA-C Unavailable Luis Armando Eller MD Unavailable [phone] Jayesh Pineda MD Unavailable Kelsi Tejada MD Unavailable Unavailable Pretty Le MD Unavailable Vesta Michael PA-C Unavailable [facility] Unavailable Encounter Details Date Type Department Care Team Description 01/01/2024 Refill Pulmonology - [place] [address] [phone] Pretty Le MD [address] [address] Social History Tobacco Use Types Packs/Day Years Used Date Smoking Tobacco: Never Smokeless Tobacco: Never Alcohol Use Standard Drinks/Week Comments No 0 (1 standard drink = 0.6 oz pur e alcohol) Education Answer Date Recorded What is the highest level of school you have completed or the highest degree you have received? 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, [employer], [employer]) 06/14/2020 Sex Assigned at Date Recorded Female 08/03/2020 10:16 PM EDT Job Start Date Occupation Industry Not on file Not on file Not on file documented as of this encounter Plan of Treatment Not on file documented as of this encounter Visit Diagnoses Diagnosis Moderate persistent asthma, unspecified whether complicated VIRGIE (obstructive sleep apnea) Obstructive sleep apnea (adult) (pediatric) documented in this encounter Care Teams Check Weigher Relationship Specialty Start Date End Date Ora Ronquillo MD 4 [place] [address] PCP - General Internal Medicine 10/11/21 Jl Mendez MD [address] [place] [address] Dr Montiel [address] [place] [address] Specialist Cardiovascular Disease 10/13/21 Jannette Boudreaux MD [address] [address] Surgeon Neurosurgery 04/07/22 Tenisha Mendieta PA-C [address] [address] Specialist Neurosurgery 04/07/22 Julio Monk PA-C [address] [address] Specialist Neurosurgery 04/07/22 Luis Armando Eller MD [address] [address] Specialist ORTHOPEDIC SURGERY 10/01/23 Jayesh Pineda MD 305 [place] [address] Specialist Endocrinology 10/01/23 Kelsi Tejada MD 305 [place] [address] Specialist Allergy & Immunology 10/01/23 Pretty Le MD 175 [facility] [address] [place] [address] Specialist Pulmonology 10/01/23 Vesta Michael PA-C 300 [facility] 210 [place] [address] Specialist Vascular Surgery 10/01/23 [facility] [address] [place] [address] Specialist Optometry 10/01/23 documented as of this encounter
--- OUTSIDE RECORDS SUMMARY | 2024-05-20 10:59 | XMS_ITS | Encounter Summary ---
Author Organization [facility] Address [address] [place] [address] Care Team Providers Care Residence Counselor Name Role Phone Teressa Solis DO Primary Care Pro vider Unavailable Mina Pretty DO Primary Care Provider Shweta Crnoin MD Primary Care Provider Ora Diaz MD Primary Care Prov ider Jl Mendez MD Unavailable Jannette Boudreaux MD Unavailable [phone] Tenisha Mendieta PA-C Unavailable Julio Monk PA-C Unavailable [phone] Luis Armando Eller MD Unavailable [phone] Jayesh Pineda MD Unavailable Kelsi Tejada MD Unavailable Unavailable Pretty Le MD Unavailable Vesta Michael PA-C Unavailable [phone] [facility] Unavailable Encounter Details Date Type Department Care Team Description 01/26/2014 Rn Homecare Report Medical Records [address] [place] [address] Maureen Foster 8 [place] [address] Social History Tobacco Use Types Packs/Day Years [...] on filedocumented in this encounter Care Teams Residence Counselor Relationship Specialty Start Date End Date Teressa Solis DO PCP - General Internal Medicine 12/18/13 09/15/20 Mina Pretty DO PCP - General Internal Medicine 09/16/20 Shweta Boucher MD PCP - General Internal Medicine 01/12/21 10/10/21 Ora Ronquillo MD [address] [place] [address] PCP - General Internal Medicine 10/11/21 Jl Mendez MD [address] [place] [address] Dr Montiel [address] [place] [address] Specialist Cardiovascular Disease 10/13/21 Jannette Boudreaux MD [address] [address] Surgeon Neurosurgery 04/07/22 Tenisha Mendieta PA-C [address] [address] Specialist Neurosurgery 04/07/22 Julio Monk PA-C [address] [address] Specialist Neurosurgery 04/07/22 Luis Armando Eller MD [address] [address] Specialist ORTHOPEDIC SURGERY 10/01/23 Jayesh Pineda MD [address] [place] [address] Specialist Endocrinology 10/01/23 Kelsi Tejada MD 305 [place] [address] Specialist Allergy & Immunology 10/01/23 Pretty Le MD 175 [facility] [address] [place] [address] Specialist Pulmonology 10/01/23 Vesta Michael PA-C 300 [facility] 210 [place] [address] Specialist Vascular Surgery 10/01/23 [facility] 46 [place], [place] [phone] Specialist Optometry 10/01/23 documented as of this encounter
--- OUTSIDE RECORDS SUMMARY | 2024-05-20 10:59 | XMS_ITS | Encounter Summary ---
Author Organization [facility] Address [address] [place] [address] Care Team Providers Care Roller Bearing Inspector Name Role Phone Teressa Solis DO Primary Care Pro vider Unavailable Mina Pretty DO Primary Care Provider Ailyn Shweta Pretty MD Primary Care Provider UnaOra Randall MD Primary Care Prov ider Jl Mendez MD Unavailable Jannette Boudreaux MD Unavailable [phone] Tenisha Mendieta PA-C Unavailable [phone] Julio MonkC Unavailable Luis Armando Eller MD Unavailable [phone] Jayesh Pineda MD Unavailable Kelsi Tejada MD Unavailable Unavailable Pretty Le MD Unavailable Vesta Michael PA-C Unavailable [facility] Unavailable Encounter Details Date Type Department Care Team Description 03/06/2018 Orders Only Pulmonology - [place] 175 [facility] [address] [place] [address] Julio Cesar Weiss MD 175 [facility] Dinesh 200 [place] [address] Obstructive sleep apnea severe AHI [...] seasonality documented in this encounter Care Teams Roller Bearing Inspector Relationship Specialty Start Date End Date Teressa Solis DO PCP - General Internal Medicine 12/18/13 09/15/20 Mina Pretty DO PCP - General Internal Medicine 09/16/20 1 Shweta Tellez MD PCP - General Internal Medicine 01/12/21 10/10/21 Ora Ronquillo MD [address] [place] [address] PCP - General Internal Medicine 10/11/21 Jl Mendez MD [address] [place] [address] [place] [address] Specialist Cardiovascular Disease 10/13/21 Jannette Boudreaux MD 175 [facility] 300 [place] [address] Surgeon Neurosurgery 04/07/22 Tenisha Mendieta PA-C 175 [facility] 300 [place] [address] Specialist Neurosurgery 04/07/22 Julio Monk PA-C 175 [facility] 300 [place] [address] Specialist Neurosurgery 04/07/22 Luis Armando Eller MD [address] [address] Specialist ORTHOPEDIC SURGERY 10/01/23 Jayesh Pineda MD 305 [place] [address] Specialist Endocrinology 10/01/23 Kelsi Tejada MD 305 [place] [address] Specialist Allergy & Immunology 10/01/23 Pretty Le MD 175 [facility] 200 [place] [address] Specialist Pulmonology 10/01/23 Vesta Michael PA-C 300 [facility] 210 [place] [address] Specialist Vascular Surgery 10/01/23 [facility] 46 [place] [address] Specialist Optometry 10/01/23 documented as of this encounter
--- OUTSIDE RECORDS SUMMARY | 2024-05-20 10:59 | XMS_ITS | Encounter Summary ---
Author Organization [facility] Address [address] [place] [address] Care Team Providers Care Regional Clinical Research Associate Name Role Phone Teressa Solis DO Primary Care Pro vider Unavailable Mina Pretty DO Primary Care Provider Shweta Cronin MD Primary Care Provider Ora Diaz MD Primary Care Prov ider Jl Mendez MD Unavailable [phone] Jannette Boudreaux MD Unavailable [phone] Tenisha Mendieta PA-C Unavailable [phone] Julio Monk PA-C Unavailable Luis Armando Eller MD Unavailable [phone] Jayesh Pineda MD Unavailable Kelsi Tejada MD Unavailable Unavailable Pretty Le MD Unavailable Vesta Michael PA-C Unavailable [facility] Unavailable Encounter Details Date Type Department Care Team Description 02/09/2015 Specialist Managers Report Medical Records [address] [place] [address] Social History Tobacco Use Types Packs/Day Years [...] filedocumented in this encounter Care Teams Regional Clinical Research Associate Relationship Specialty Start Date End Date Teressa Solis DO PCP - General Internal Medicine 12/18/13 09/15/20 Mina Pretty DO PCP - General Internal Medicine 09/16/20 Shweta Boucher MD PCP - General Internal Medicine 01/12/21 10/10/21 Ora Ronquillo MD [address] [place] [address] PCP - General Internal Medicine 10/11/21 Jl Mendez MD [address] [place] [address] Dr [address] [place] [address] Specialist Cardiovascular Disease 10/13/21 Jannette Boudreaux MD [address] [address] Surgeon Neurosurgery 04/07/22 Tenisha Mendieta PA-C [address] [address] Specialist Neurosurgery 04/07/22 Julio Monk PA-C [address] [address] Specialist Neurosurgery 04/07/22 Luis Armando Eller MD [address] [address] Specialist ORTHOPEDIC SURGERY 10/01/23 Jayesh Pineda MD 305 [place] [address] Specialist Endocrinology 10/01/23 Kelsi Tejada MD 305 [place] [address] Specialist Allergy & Immunology 10/01/23 Pretty eL MD 175 [facility] [address] [place] [address] Specialist Pulmonology 10/01/23 Vesta Michael PA-C 300 [facility] 210 [place] [address] Specialist Vascular Surgery 10/01/23 [facility] 46 [place] [address] Specialist Optometry 10/01/23 documented as of this encounter
--- OUTSIDE RECORDS SUMMARY | 2024-05-20 10:59 | XMS_ITS | Encounter Summary ---
Author Organization [facility] Address [address] [place] [address] Care Team Providers Care Starch Treating Assistant Name Role Phone Teressa Solis DO Primary Care Pro vider Unavailable Mina Pretty DO Primary Care Provider Shweta Cronin MD Primary Care Provider Ora Diaz MD Primary Care Prov ider Jl Mendez MD Unavailable Jannette Boudreaux MD Unavailable [phone] Tenisha Mendieta PA-C Unavailable [phone] Julio Monk PA-C Unavailable Luis Armando Eller MD Unavailable [phone] Jayesh Pineda MD Unavailable Kelsi Tejada MD Unavailable Unavailable Pretty Le MD Unavailable Vesta Michael PA-C Unavailable [facility] Unavailable Encounter Details Date Type Department Care Team Description 03/25/2018 Transfer Records Medical Records 4 [place] [address] Abstract, Provider Social History Tobacco Use Types [...] on filedocumented in this encounter Care Teams Starch Treating Assistant Relationship Specialty Start Date End Date Teressa Solis DO PCP - General Internal Medicine 12/18/13 09/15/20 Mina Pretty DO PCP - General Internal Medicine 09/16/20 Shweta Boucher MD PCP - General Internal Medicine 01/12/21 10/10/21 Ora Ronquillo MD [address] [place] [address] PCP - General Internal Medicine 10/11/21 Jl Mendez MD [address] [place] [address] Specialist Cardiovascular Disease 10/13/21 Jannette Boudreaux MD [address] [address] Surgeon Neurosurgery 04/07/22 Tenisha Mendieta PA-C [address] [address] Specialist Neurosurgery 04/07/22 Julio Monk PA-C [address] [address] Specialist Neurosurgery 04/07/22 Luis Armando Eller MD [address] [address] Specialist ORTHOPEDIC SURGERY 10/01/23 Jayesh Pineda MD 305 [place] [address] Specialist Endocrinology 10/01/23 Kelsi Tejada MD 305 [place] [address] Specialist Allergy & Immunology 10/01/23 Pretty Le MD 175 [facility] [address] [place] [address] Specialist Pulmonology 10/01/23 Vesta Michael PA-C 300 [facility] [address] [place] [address] Specialist Vascular Surgery 10/01/23 [facility] 46 [place] [address] Specialist Optometry 10/01/23 documented as of this encounter
--- OUTSIDE RECORDS SUMMARY | 2024-05-20 10:59 | XMS_ITS | Encounter Summary ---
Author Organization [facility] Address [address] [place] [address] Care Team Providers Care Sawdust Drier Name Role Phone Teressa Solis DO Primary Care Pro vider Unavailable Mina Pretty DO Primary Care Provider Shweta Cronin MD Primary Care Provider Ora Diaz MD Primary Care Prov ider Jl Mendez MD Unavailable [phone] Jannette Boudreaux MD Unavailable [phone] Tenisha Mendieta PA-C Unavailable [phone] Julio Monk PA-C Unavailable Luis Armando Eller MD Unavailable [phone] Jayesh Pineda MD Unavailable Kelsi Tejada MD Unavailable Unavailable Pretty Le MD Unavailable Vesta Michael PA-C Unavailable [facility] Unavailable [phone] Encounter Details Date Type Department Care Team Description 03/06/2018 Private Branch Exchange Repairer Report Medical Records 4 [place] [address] Abstract, Provider Social History Tobacco Use Types [...] on filedocumented in this encounter Care Teams Sawdust Drier Relationship Specialty Start Date End Date Teressa Solis DO PCP - General Internal Medicine 12/18/13 09/15/20 Mina Pretty DO PCP - General Internal Medicine 09/16/20 Shweta Boucher MD PCP - General Internal Medicine 01/12/21 10/10/21 Ora Ronquillo MD [address] [place] [address] PCP - General Internal Medicine 10/11/21 Jl Mendez MD [address] [place] [address] Specialist Cardiovascular Disease 10/13/21 Jannette Boudreaux MD [address] [address] Surgeon Neurosurgery 04/07/22 Tenisha Mendieta PA-C [address] [address] Specialist Neurosurgery 04/07/22 Julio Monk PA-C [address] [address] Specialist Neurosurgery 04/07/22 Luis Armando Eller MD [address] [address] Specialist ORTHOPEDIC SURGERY 10/01/23 Jayesh Pineda MD 305 [place] [address] Specialist Endocrinology 10/01/23 Kelsi Tejada MD 305 [place] [address] Specialist Allergy & Immunology 10/01/23 Pretty Le MD 175 [facility] [address] [place] [address] Specialist Pulmonology 10/01/23 Vesta Michael PA-C 300 [facility] [address] [place] [address] Specialist Vascular Surgery 10/01/23 [facility] 46 [place] [address] Specialist Optometry 10/01/23 documented as of this encounter
--- OUTSIDE RECORDS SUMMARY | 2024-05-20 10:59 | XMS_ITS | Encounter Summary ---
Author Organization [facility] Address [address] [place] [address] Care Team Providers Care Telephoner Name Role Phone Ora Ronquillo MD Primary Care Prov ider Jl Mendez MD Unavailable [phone] Jannette Boudreaux MD Unavailable [phone] Tenisha Mendieta PA-C Unavailable Julio Monk PA-C Unavailable Luis Armando Eller MD Unavailable [phone] Jayesh Pineda MD Unavailable Kelsi Tejada MD Unavailable Unavailable Pretty Le MD Unavailable Vesta Michael PA-C Unavailable [phone] [facility] Unavailable [phone] Encounter Details Date Type Department Care Team Description 10/08/2023 SCAN [facility] Medical [facility] 175 [facility] [address] [place] [phone] Lorie Moore, DONN 1515 [facility] [place] [address] Social History Tobacco Use Types Packs/Day Years Used Date Smoking Tobacco: Never Smokeless Tobacco: Never Alcohol Use Standard Drinks/Week Comments No 0 (1 standard drink = 0.6 oz pur e alcohol) Education Answer Date Recorded What is the highest level of school you have completed or the highest degree you have received? 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, HOOP COILER, CHANDRAKANT) 06/14/2020 Sex Assigned at Date Recorded Female 08/03/2020 10:16 PM EDT Job Start Date Occupation Industry Not on file Not on file Not on file documented as of this encounter Plan of Treatment Not on file documented as of this encounter Visit Diagnoses Not on filedocumented in this encounter Care Teams Telephoner Relationship Specialty Start Date End Date Ora Ronquillo MD 444 [place] [address] PCP - General Internal Medicine 10/11/21 Jl Mendez MD [address] [place] [address] Dr Mont[address] [place] [address] Specialist Cardiovascular Disease 10/13/21 Jannette Boudreaux MD [address] [address] Surgeon Neurosurgery 04/07/22 Tenisha Mendieta PA-C [address] [address] Specialist Neurosurgery 04/07/22 Julio Monk PA-C 175 [facility] 300 [place] [address] Specialist Neurosurgery 04/07/22 Luis Armando Eller MD [address] [address] Specialist ORTHOPEDIC SURGERY 10/01/23 Jayesh Pineda MD 305 [place] [address] Specialist Endocrinology 10/01/23 Kelsi Tejada MD 305 [place] [address] Specialist Allergy & Immunology 10/01/23 Pretty Le MD 175 [facility] 200 [place] [address] Specialist Pulmonology 10/01/23 Vesta Michael PA-C 300 [facility] 210 [place] [address] Specialist Vascular Surgery 10/01/23 [facility] 46 [place] [address] Specialist Optometry 10/01/23 documented as of this encounter
--- OUTSIDE RECORDS SUMMARY | 2024-05-20 10:59 | XMS_ITS | Encounter Summary ---
Author Organization [facility] Address [address] [place] [address] Care Team Providers Care Bundle Collector Name Role Phone Teressa Solis DO Primary Care Pro vider Unavailable Mina Pretty DO Primary Care Provider Shweta Cronin MD Primary Care Provider Ora Diaz MD Primary Care Prov ider Jl Mendez MD Unavailable [phone] Jannette Boudreaux MD Unavailable [phone] Tenisha Mendieta PA-C Unavailable Julio Monk PA-C Unavailable [phone] Luis Armando Eller MD Unavailable [phone] Jayesh Pineda MD Unavailable Kelsi Tejada MD Unavailable Unavailable Pretty Le MD Unavailable Vesta Michael PA-C Unavailable [phone] [facility], [facility] Unavailable [phone] Encounter Details Date Type Department Care Team Description 04/25/2018 Hospital Medical Records 4 [place] [address] [facility] Social History Tobacco Use Types Packs/Day Years Used Date Smoking Tobacco: Never Smokeless Tobacco: Never Alcohol Use Standard Drinks/Week Comments No 0 (1 standard drink = 0.6 oz pur e alcohol) Education Answer Date Recorded What is the highest level of school you have completed or the highest degree you have received? 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, DEPUTY SHERIFF/INVESTIGATOR, CHANDRAKANT) 06/14/2020 Sex Assigned at Date Recorded Female 08/03/2020 10:16 PM EDT Job Start Date Occupation Industry Not on file Not on file Not on file documented as of this encounter Plan of Treatment Not on file documented as of this encounter Visit Diagnoses Not on filedocumented in this encounter Care Teams Bundle Collector Relationship Specialty Start Date End Date Teressa Solis, PCP - General Internal Medicine 12/18/13 09/15/20 Mina Pretty DO PCP - General Internal Medicine 09/16/20 Shweta Boucher MD PCP - General Internal Medicine 01/12/21 10/10/21 Ora Ronquillo MD [address] [place] [address] PCP - General Internal Medicine 10/11/21 Jl Mendez MD [address] [place] [address] Dr [address] [place] [address] Specialist Cardiovascular Disease 10/13/21 Jannette Boudreaux MD [address] [address] Surgeon Neurosurgery 04/07/22 Tenisha Mendieta PA-C [address] [address] Specialist Neurosurgery 04/07/22 Julio Monk PA-C 175 [facility] [address] [place] [address] Specialist Neurosurgery 04/07/22 Luis Armando Eller MD [address] [address] Specialist ORTHOPEDIC SURGERY 10/01/23 Jayesh Pineda MD [address] [place] [address] Specialist Endocrinology 10/01/23 Kelsi Tejada MD 305 [place] [address] Specialist Allergy & Immunology 10/01/23 Pretty Le MD 175 [facility] [address] [place] [address] Specialist Pulmonology 10/01/23 Vesta Michael PA-C 300 [facility] [address] [place] [address] Specialist Vascular Surgery 10/01/23 [facility] 46 [place], [place] [address] Specialist Optometry 10/01/23 documented as of this encounter
--- OUTSIDE RECORDS SUMMARY | 2024-05-20 10:59 | XMS_ITS | Encounter Summary ---
Author Organization [facility] Address [address] [place] [address] Care Team Providers Care Bruise Trimmer Name Role Phone Ora Ronquillo MD Primary Care Prov ider Jl Mendez MD Unavailable [phone] Jannette Boudreaux MD Unavailable [phone] Tenisha Mendieta-C Unavailable Julio Monk-C Unavailable [phone] Luis Armando Eller MD Unavailable [phone] Jayesh Pineda MD Unavailable Kelsi Tejada MD Unavailable Unavailable Pretty Le MD Unavailable Vesta Michael PA-C Unavailable [phone] [facility] Unavailable [phone] Encounter Details Date Type Department Care Team Description 10/16/2023 [facility] Records [facility] Medical [facility] [address] [phone] Luis Armando Eller MD [address] [id number] Social History Tobacco Use Types Packs/Day Years Used Date Smoking Tobacco: Never Smokeless Tobacco: Never Alcohol Use Standard Drinks/Week Comments No 0 (1 standard drink = 0.6 oz pur e alcohol) Education Answer Date Recorded What is the highest level of school you have completed or the highest degree you have received? 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, TELE MARKETING EXECUTIVE, CHANDRAKANT) 06/14/2020 Sex Assigned at Date Recorded Female 08/03/2020 10:16 PM EDT Job Start Date Occupation Industry Not on file Not on file Not on file documented as of this encounter Plan of Treatment Not on file documented as of this encounter Visit Diagnoses Not on filedocumented in this encounter Care Teams Bruise Trimmer Relationship Specialty Start Date End Date Ora Ronquillo MD 444 [place] [address] PCP - General Internal Medicine 10/11/21 Jl Mendez MD [address] [place] [address] Dr Mont[address] [place] [address] Specialist Cardiovascular Disease 10/13/21 Jannette Boudreaux MD [address] [address] Surgeon Neurosurgery 04/07/22 Tenisha Mendieta PA-C [address] [address] Specialist Neurosurgery 04/07/22 Julio Monk PA-C [address] [address] Specialist Neurosurgery 04/07/22 Luis Armando Eller MD [address] [address] Specialist ORTHOPEDIC SURGERY 10/01/23 Jayesh Pineda MD 305 [place] [address] Specialist Endocrinology 10/01/23 Kelsi Tejada MD 305 [place] [address] Specialist Allergy & Immunology 10/01/23 Pretty Le MD 175 [facility] 200 [place] [address] Specialist Pulmonology 10/01/23 Vesta Michael PA-C 300 [facility] 210 [place] [address] Specialist Vascular Surgery 10/01/23 [facility] 46 [place] [address] Specialist Optometry 10/01/23 documented as of this encounter
--- OUTSIDE RECORDS SUMMARY | 2024-05-20 10:59 | XMS_ITS | Encounter Summary ---
Author Organization [facility] Address [address] [place] [address] Care Team Providers Care Hepatology Physician Name Role Phone Teressa Solis DO Primary Care Pro vider Unavailable Mina Pretty DO Primary Care Provider Shweta Cronin MD Primary Care Provider Ora Diaz MD Primary Care Prov ider Jl Mendez MD Unavailable Jannette Boudreaux MD Unavailable [phone] Tenisha Mendieta PA-C Unavailable Julio Monk PA-C Unavailable [phone] Luis Armando Eller MD Unavailable [phone] Jayesh Pineda MD Unavailable Kelsi Tejada MD Unavailable Unavailable Pretty Le MD Unavailable Vesta Michael PA-C Unavailable [phone] [facility] Unavailable Encounter Details Date Type Department Care Team Description 05/04/2015 Food Runner Report Medical Records 4 [place] [address] Jeff Ogden MD Social History Tobacco Use [...] on filedocumented in this encounter Care Teams Hepatology Physician Relationship Specialty Start Date End Date Teressa Solis DO PCP - General Internal Medicine 12/18/13 09/15/20 Mina Pretty DO PCP - General Internal Medicine 09/16/20 Shweta Boucher MD PCP - General Internal Medicine 01/12/21 10/10/21 Ora Ronquillo MD [address] [place] [address] PCP - General Internal Medicine 10/11/21 Jl Mendez MD [address] [place] [address] Specialist Cardiovascular Disease 10/13/21 Jannette Boudreaux MD [address] [address] Surgeon Neurosurgery 04/07/22 Tenisha Mendieta PA-C [address] [address] Specialist Neurosurgery 04/07/22 Julio Monk PA-C [address] [address] Specialist Neurosurgery 04/07/22 Luis Armando Eller MD [address] [address] Specialist ORTHOPEDIC SURGERY 10/01/23 Jayesh Pineda MD 305 [place] [address] Specialist Endocrinology 10/01/23 Kelsi Tejada MD 305 [place] [address] Specialist Allergy & Immunology 10/01/23 Pretty Le MD 175 [facility] [address] [place] [address] Specialist Pulmonology 10/01/23 Vesta Michael PA-C 300 [facility] 210 [place] [address] Specialist Vascular Surgery 10/01/23 [facility] 46 [place] [address] Specialist Optometry 10/01/23 documented as of this encounter
--- OUTSIDE RECORDS SUMMARY | 2024-05-20 10:59 | XMS_ITS | Encounter Summary ---
Author Organization [facility] Address [address] [place] [address] Care Team Providers Care Employment Counselor Name Role Phone Ora Ronquillo MD Primary Care Prov ider Jl Mendez MD Unavailable Jannette Boudreaux MD Unavailable [phone] Tenisha MendietaC Unavailable Julio Monk-C Unavailable [phone] Luis Armando Eller MD Unavailable [phone] Jayesh Pineda MD Unavailable Kelsi Tejada MD Unavailable Unavailable Pretty Le MD Unavailable Vesta Michael PA-C Unavailable [facility] Unavailable Encounter Details Date Type Department Care Team Description 12/19/2023 SCAN [facility] Medical [facility] 175 [facility] [address] [place] [address] Luis Armando Eller MD 175 [facility] [address] [place], [place] [phone] Social History Tobacco Use Types Packs/Day Years Used Date Smoking Tobacco: Never Smokeless Tobacco: Never Alcohol Use Standard Drinks/Week Comments No 0 (1 standard drink = 0.6 oz pur e alcohol) Education Answer Date Recorded What is the highest level of school you have completed or the highest degree you have received? 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, ELECTRONIC WARFARE OFFICER, CHANDRAKANT) 06/14/2020 Sex Assigned at Date Recorded Female 08/03/2020 10:16 PM EDT Job Start Date Occupation Industry Not on file Not on file Not on file documented as of this encounter Plan of Treatment Not on file documented as of this encounter Visit Diagnoses Not on filedocumented in this encounter Care Teams Employment Counselor Relationship Specialty Start Date End Date Ora Ronquillo MD 444 [place] [address] PCP - General Internal Medicine 10/11/21 Jl Mendez MD [address] [place] [address] Dr Mont[address] [place] [address] Specialist Cardiovascular Disease 10/13/21 Jannette Boudreaux MD [address] [address] Surgeon Neurosurgery 04/07/22 Tenisha Mendieta PA-C [address] [address] Specialist Neurosurgery 04/07/22 Julio Monk PA-C [address] [address] Specialist Neurosurgery 04/07/22 Luis Armando Eller MD [address] [address] Specialist ORTHOPEDIC SURGERY 10/01/23 Jayesh Pineda MD 305 [place] [address] Specialist Endocrinology 10/01/23 Kelsi Tejada MD 305 [place] [address] Specialist Allergy & Immunology 10/01/23 Pretty Le MD 175 [facility] 200 [place] [address] Specialist Pulmonology 10/01/23 Vesta Michael PA-C 300 [facility] 210 [place] [address] Specialist Vascular Surgery 10/01/23 [facility] 46 [place] [address] Specialist Optometry 10/01/23 documented as of this encounter
--- OUTSIDE RECORDS SUMMARY | 2024-05-20 10:59 | XMS_ITS | Encounter Summary ---
Author Organization [facility] Address [address] [place] [address] Care Team Providers Care Pearl Fisherman Name Role Phone Ora Ronquillo MD Primary Care Prov ider Jl Mendez MD Unavailable Jannette Boudreaux MD Unavailable [phone] Tenisha Mendieta-C Unavailable Julio Monk-C Unavailable Luis Armando Eller MD Unavailable [phone] Jayesh Pineda MD Unavailable Kelsi Tejada MD Unavailable Unavailable Pretty Le MD Unavailable Vesta Michael PA-C Unavailable [facility] Unavailable Reason for Visit * Reason Onset Date Comments Surgery (Schedule) 11/22/2023 Encounter Details Date Type Department Care Team Description 11/22/2023 Telephone [facility] 175 [facility] [address] [place] [address] Luis Armando Eller MD 175 [facility] [address] [place] [address] [id number] Surgery (Schedule) Social History Tobacco Use Types Packs/Day Years Used Date Smoking Tobacco: Never Smokeless Tobacco: Never Alcohol Use Standard Drinks/Week Comments No 0 (1 standard drink = 0.6 oz pur e alcohol) Education Answer Date Recorded What is the highest level of school you have completed or the highest degree you have received? 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, CONTROLS PROJECT ENGINEER, CHANDRAKANT) 06/14/2020 Sex Assigned at Date [...] on filedocumented in this encounter Care Teams Pearl Fisherman Relationship Specialty Start Date End Date Ora Ronquillo MD 4 [place] [address] PCP - General Internal Medicine 10/11/21 Jl Mendez MD [address] [place] [address] Dr Montiel [address] [place] [address] Specialist Cardiovascular Disease 10/13/21 Jannette Boudreaux MD 175 [facility] [address] [place] [address] Surgeon Neurosurgery 04/07/22 Tenisha Mendieta PA-C 175 [facility] [address] [place] [address] Specialist Neurosurgery 04/07/22 Julio Monk PA-C 175 [facility] 300 [place] [address] Specialist Neurosurgery 04/07/22 Luis Armando Eller MD 175 [facility] 250 [place] [address] Specialist ORTHOPEDIC SURGERY 10/01/23 Jayesh Pineda MD 305 [place] [address] Specialist Endocrinology 10/01/23 Kelsi Tejada MD 305 [place] [address] Specialist Allergy & Immunology 10/01/23 Pretty Le MD 175 [facility] 200 [place] [address] Specialist Pulmonology 10/01/23 Vesta Michael PA-C 300 [facility] 210 [place] [address] Specialist Vascular Surgery 10/01/23 [facility] 46 [place] [address] Specialist Optometry 10/01/23 documented as of this encounter
--- OUTSIDE RECORDS SUMMARY | 2024-05-20 11:00 | XMS_ITS | Encounter Summary ---
Author Organization [facility] Address [address] [place] [address] Care Team Providers Care Program Technician Name Role Phone Teressa Solis DO Primary Care Pro vider Unavailable Mina Pretty DO Primary Care Provider Shweta Cronin MD Primary Care Provider Ora Diaz MD Primary Care Prov ider Jl Mendez MD Unavailable [phone] Jannette Boudreaux MD Unavailable [phone] Tenisha Mendieta PA-C Unavailable [phone] Juilo Monk PA-C Unavailable Luis Armando Eller MD Unavailable [phone] Jayesh Pineda MD Unavailable Kelsi Tejada MD Unavailable Unavailable Pretty Le MD Unavailable Vesta Michael PA-C Unavailable [facility] Unavailable Encounter Details Date Type Department Care Team Description 07/21/2019 Orders Only Adult Medicine B - [place] 305 [place], [place] [id number] Dez Tristan MD Vitamin D deficiency (Primary [...] deficiency documented in this encounter Care Teams Program Technician Relationship Specialty Start Date End Date Teressa Solis DO PCP - General Internal Medicine 12/18/13 09/15/20 Mina Pretty DO PCP - General Internal Medicine 09/16/20 Shweta Boucher MD PCP - General Internal Medicine 01/12/21 10/10/21 Ora Ronquillo MD 444 [place] [address] PCP - General Internal Medicine 10/11/21 Jl Mendez MD [address] [place] [address] Dr Montiel [address] [place] [address] Specialist Cardiovascular Disease 10/13/21 Jannette Boudreaux MD [address] [address] Surgeon Neurosurgery 04/07/22 Tenisha Mendieta PA-C [address] [address] Specialist Neurosurgery 04/07/22 Julio Monk PA-C 175 [facility] [address] [place] [address] Specialist Neurosurgery 04/07/22 Luis Armando Eller MD [address] [address] Specialist ORTHOPEDIC SURGERY 10/01/23 Jayesh Pineda MD 305 [place] [address] Specialist Endocrinology 10/01/23 Kelsi Tejada MD 305 [place] [address] Specialist Allergy & Immunology 10/01/23 Pretty Le MD 175 [facility] [address] [place] [address] Specialist Pulmonology 10/01/23 Vesta Michael PA-C 300 [facility] 210 [place] [address] Specialist Vascular Surgery 10/01/23 [facility] 46 [place] [address] Specialist Optometry 10/01/23 documented as of this encounter
--- OUTSIDE RECORDS SUMMARY | 2024-05-20 11:00 | XMS_ITS | Encounter Summary ---
Author Organization [facility] Address [address] [place] [address] Care Team Providers Care Tumbling Machine Operator Name Role Phone Ora Ronquillo MD Primary Care Prov ider Jl Mendez MD Unavailable Jannette Boudreaux MD Unavailable [phone] Tenisha Mendieta PA-C Unavailable [phone] Julio Monk PA-C Unavailable [phone] Luis Armando Eller MD Unavailable [phone] Jayesh Pineda MD Unavailable Kelsi Tejada MD Unavailable Unavailable Pretty Le MD Unavailable Vesta Michael-Pina Unavailable [phone] [facility] Unavailable [phone] Encounter Details Date Type Department Care Team Description 10/11/2021 [facility] [address] [facility] [address] [place] [address] Abstract, Provider Social History Tobacco Use Types Packs/Day Years Used Date Smoking Tobacco: Never Smokeless Tobacco: Never Alcohol Use Standard Drinks/Week Comments No 0 (1 standard drink = 0.6 oz pur e alcohol) Education Answer Date Recorded What is the highest level of school you have completed or the highest degree you have received? Master's degree (e.g., TANIA, MS, Lexi, Joel, QUALITY AUDITOR, CHANDRAKANT) 06/14/2020 Sex Assigned at Date Recorded [...] on filedocumented in this encounter Care Teams Tumbling Machine Operator Relationship Specialty Start Date End Date Ora Ronquillo MD 444 [place] [address] PCP - General Internal Medicine 10/11/21 Jl Mendez MD [address] [place] [address] Dr Montiel [address] [place] [address] Specialist Cardiovascular Disease 10/13/21 Jannette Boudreaux MD [address] [address] Surgeon Neurosurgery 04/07/22 Tenisha Mendieta PA-C [address] [address] Specialist Neurosurgery 04/07/22 Julio Monk PA-C 175 [facility] 300 [place] [address] Specialist Neurosurgery 04/07/22 Luis Armando Eller MD [address] [address] Specialist ORTHOPEDIC SURGERY 10/01/23 Jayesh Pineda MD 305 [place] [address] Specialist Endocrinology 10/01/23 Kelsi Tejada MD 305 [place] [address] Specialist Allergy & Immunology 10/01/23 Pretty Le MD 175 [facility] [address] [place] [address] Specialist Pulmonology 10/01/23 Vesta Michael PA-C 300 [facility] 210 [place] [address] Specialist Vascular Surgery 10/01/23 [facility] 46 [place] [address] Specialist Optometry 10/01/23 documented as of this encounter
--- OUTSIDE RECORDS SUMMARY | 2024-05-20 11:00 | XMS_ITS | Encounter Summary ---
Author Organization [facility] Address [address] [place] [address] Care Team Providers Care Certified Dental Assistant Name Role Phone Teressa Solis DO Primary Care Pro vider Unavailable Mina Pretty DO Primary Care Provider Shweta Cronin MD Primary Care Provider Ora Diaz MD Primary Care Prov ider Jl Mendez MD Unavailable Jannette Boudreaux MD Unavailable [phone] Tenisha Mendieta PA-C Unavailable Julio Monk PA-C Unavailable Luis Armando Eller MD Unavailable [phone] Jayesh Pineda MD Unavailable Kelsi Tejada MD Unavailable Unavailable Pretty Le MD Unavailable Vesta Michael PA-C Unavailable [phone] [facility] Unavailable Reason for Visit * Reason Onset Date Comments refill request 08/21/2019 Encounter Details Date Type Department Care Team Description 08/21/2019 Refill Adult Urgent Care - [address] [address] Dez Tristan MD refill request Social History [...] filedocumented in this encounter Care Teams Certified Dental Assistant Relationship Specialty Start Date End Date Teressa Solis DO PCP - General Internal Medicine 12/18/13 09/15/20 Mina Pretty DO PCP - General Internal Medicine 09/16/20 Shweta Boucher MD PCP - General Internal Medicine 01/12/21 10/10/21 Ora Ronquillo MD [address] [place] [address] PCP - General Internal Medicine 10/11/21 Jl Mendez MD [address] [place] [address] Dr Montiel [address] [place] [address] Specialist Cardiovascular Disease 10/13/21 Jannette Boudreaux MD [address] [address] Surgeon Neurosurgery 04/07/22 Tenisha Mendieta PA-C [address] [address] Specialist Neurosurgery 04/07/22 Julio Monk PA-C [address] [place] [address] Specialist Neurosurgery 04/07/22 Luis Armando Eller MD 175 [facility] 250 [place] [address] Specialist ORTHOPEDIC SURGERY 10/01/23 Jayesh Pineda MD 305 [place] [address] Specialist Endocrinology 10/01/23 Kelsi Tejada MD 305 [place] [address] Specialist Allergy & Immunology 10/01/23 Pretty Le MD 175 [facility] 200 [place] [address] Specialist Pulmonology 10/01/23 Vesta Michael PA-C 300 [facility] 210 [place] [address] Specialist Vascular Surgery 10/01/23 [facility] 46 [place] [address] Specialist Optometry 10/01/23 documented as of this encounter
--- OUTSIDE RECORDS SUMMARY | 2024-05-20 11:00 | XMS_ITS | Encounter Summary ---
Author Organization [facility] Address [address] [place] [address] Care Team Providers Care Insulation Manager Name Role Phone Shweta Tellez MD Primary Care Provider Ora Diaz MD Primary Care Prov ider Jl Mendez MD Unavailable [phone] Jannette Boudreaux MD Unavailable [phone] Tenisha Mendieta PA-C Unavailable [phone] Julio Monk PA-C Unavailable [phone] Luis Armando Eller MD Unavailable [phone] Jayesh Pineda MD Unavailable Kelsi Tejada MD Unavailable Unavailable Pretty Le MD Unavailable Vesta Michael-C Unavailable [phone] [facility] Unavailable [phone] Encounter Details Date Type Department Care Team Description 09/22/2021 Hospital Medical Records 444 [place] [address] Ching Boo MD Social History Tobacco Use Types Packs/Day Years Used Date Smoking Tobacco: Never Smokeless Tobacco: Never Alcohol Use Standard Drinks/Week Comments No 0 (1 standard drink = 0.6 oz pur e alcohol) Education Answer Date Recorded What is the highest level of school you have completed or the highest degree you have received? 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, PIZZA DELIVERY DRIVER, CHANDRAKANT) 06/14/2020 Sex Assigned at Date [...] on filedocumented in this encounter Care Teams Insulation Manager Relationship Specialty Start Date End Date Shweta Tellez MD PCP - General Internal Medicine 01/12/21 10/10/21 Hiwot Couch, Ora Kelly MD [address] [place] [address] PCP - General Internal Medicine 10/11/21 Jl Mendez MD [address] [place] [address] Dr Mont[address] [place] [address] Specialist Cardiovascular Disease 10/13/21 Jannette Boudreaux MD [address] [address] Surgeon Neurosurgery 04/07/22 Tenisha Mendieta PA-C [address] [address] Specialist Neurosurgery 04/07/22 Julio Monk PA-C 175 [facility] [address] [place] [address] Specialist Neurosurgery 04/07/22 Luis Armando Eller MD [address] [address] Specialist ORTHOPEDIC SURGERY 10/01/23 Jayesh Pienda MD 305 [place] [address] Specialist Endocrinology 10/01/23 Kelsi Tejada MD 305 [place] [address] Specialist Allergy & Immunology 10/01/23 Pretty Le MD 175 [facility] [address] [place] [address] Specialist Pulmonology 10/01/23 Vesta Michael PA-C 300 [facility] [address] [place] [address] Specialist Vascular Surgery 10/01/23 [facility] 46 [place] [address] Specialist Optometry 10/01/23 documented as of this encounter
--- OUTSIDE RECORDS SUMMARY | 2024-05-20 11:00 | XMS_ITS | Encounter Summary ---
Author Organization [facility] Address [address] [place] [address] Care Team Providers Care Assessment Clinician Name Role Phone Teressa Solis DO Primary Care Pro vider Unavailable Mina Pretty DO Primary Care Provider Shweta Cronin MD Primary Care Provider Ora Diaz MD Primary Care Prov ider Jl Mendez MD Unavailable Jannette Boudreaux MD Unavailable [phone] Tenisha Mendieta PA-C Unavailable Julio Monk PA-C Unavailable [phone] Luis Armando Eller MD Unavailable [phone] Jayesh Pineda MD Unavailable Kelsi Tejada MD Unavailable Unavailable Pretty Le MD Unavailable Vesta Michael PA-C Unavailable [phone] [facility] Unavailable [phone] Reason for Visit * Reason Comments E-prescribe Rx Request Encounter Details Date Type Department Care Team Description 05/10/2019 Refill Adult Medicine [address] [address] Teressa Solis DO E-prescribe Rx [...] N/A Patients current insurance carrier is: Payor: [employer] / Plan: [employer] / Product Type: MEDICAID RISK documented in this encounter Plan of Treatment Not on file documented as of this encounter Visit Diagnoses Not on filedocumented in this encounter Care Teams Assessment Clinician Relationship Specialty Start Date End Date Teressa Solis DO PCP - General Internal Medicine 12/18/13 09/15/20 Mina Pretty DO PCP - General Internal Medicine 09/16/20 Shweta Boucher MD PCP - General Internal Medicine 01/12/21 10/10/21 Ora Ronquillo MD 444 [place] [address] PCP - General Internal Medicine 10/11/21 Jl Mendez MD [address] [place] [address] Dr Montiel [address] [place] [address] Specialist Cardiovascular Disease 10/13/21 Jannette Boudreaux MD [address] [address] Surgeon Neurosurgery 04/07/22 Tenisha Mendieta PA-C [address] [address] Specialist Neurosurgery 04/07/22 Julio Monk PA-C [address] [address] Specialist Neurosurgery 04/07/22 Luis Armando Eller MD [address] [address] Specialist ORTHOPEDIC SURGERY 10/01/23 Jayesh Pineda MD 305 [place] [address] Specialist Endocrinology 10/01/23 Kelsi Tejada MD 305 [place] [address] Specialist Allergy & Immunology 10/01/23 Pretty Le MD 175 [facility] [address] [place] [address] Specialist Pulmonology 10/01/23 Vesta Michael PA-C 300 [facility] 210 [place] [address] Specialist Vascular Surgery 10/01/23 [facility] 46 [place], [place] [address] Specialist Optometry 10/01/23 documented as of this encounter
--- OUTSIDE RECORDS SUMMARY | 2024-05-20 11:00 | XMS_ITS | Encounter Summary ---
Author Organization [facility] Address [address] [place] [address] Care Team Providers Care Safety Relief Valve Technician Name Role Phone Teressa Solis DO Primary Care Pro vider Unavailable Mina Pretty DO Primary Care Provider Shweta Cronin MD Primary Care Provider UnaOra Randall MD Primary Care Prov ider Jl Mendez MD Unavailable [phone] Jannette Boudreaux MD Unavailable [phone] Tenisha Mendieta PA-C Unavailable Julio MoknC Unavailable [phone] Luis Armando Eller MD Unavailable [phone] Jayesh Pineda MD Unavailable Kelsi Tejada MD Unavailable Unavailable Pretty Le MD Unavailable Vesta Michael PA-C Unavailable [phone] [facility] Unavailable [phone] Reason for Visit * Reason Onset Date Comments APPOINTMENT 05/28/2019 Reschedule Nucal a Encounter Details Date Type Department Care Team Description 05/28/2019 Telephone Allergy [place] 98 [address] [place] [address] Kelsi Tejada MD APPOINTMENT (Reschedule [...] current appt * Telephone Encounter - Nola aCmpbell R.N. - 05/28/2019 11:59 AM EDT [place] for [place] 05/06/19. If I call to have her come in tomorrow or Sunday she will be 23 or 24 days instead of 28. Is this acceptable? Should we wait? documented in this encounter Plan of Treatment Not on file documented as of this encounter Visit Diagnoses Not on filedocumented in this encounter Care Teams Safety Relief Valve Technician Relationship Specialty Start Date End Date Teressa Solis, PCP - General Internal Medicine 12/18/13 09/15/20 Mina Pretty DO PCP - General Internal Medicine 09/16/20 1 Shweta Tellez MD PCP - General Internal Medicine 01/12/21 10/10/21 Ora Ronquillo MD [address] [place] [address] PCP - General Internal Medicine 10/11/21 Jl Mendez MD [address] [place] [address] [place] [address] Specialist Cardiovascular Disease 10/13/21 Jannette Boudreaux MD 175 [facility] [address] [place] [address] Surgeon Neurosurgery 04/07/22 Tenisha Mendieta PA-C 175 [facility] 300 [place] [address] Specialist Neurosurgery 04/07/22 Julio Monk PA-C 175 [facility] 300 [place] [address] Specialist Neurosurgery 04/07/22 Luis Armando Eller MD 175 [facility] [address] [place] [address] Specialist ORTHOPEDIC SURGERY 10/01/23 Jayesh Pineda MD 305 [place] [address] Specialist Endocrinology 10/01/23 Kelsi Tejada MD 305 [place] [address] Specialist Allergy & Immunology 10/01/23 Pretty Le MD 175 [facility] [address] [place] [address] Specialist Pulmonology 10/01/23 Vesta Michael PA-C 300 [facility] 210 [place] [address] Specialist Vascular Surgery 10/01/23 [facility] 46 [place] [address] Specialist Optometry 10/01/23 documented as of this encounter
--- OUTSIDE RECORDS SUMMARY | 2024-05-20 11:00 | XMS_ITS | Encounter Summary ---
Author Organization [facility] Address [address] [place] [address] Care Team Providers Care Panelboard Tank Pumper Name Role Phone Ora Ronquillo MD Primary Care Prov ider Jl Mendez MD Unavailable Jannette Boudreaux MD Unavailable [phone] Tenisha Mendieta PA-C Unavailable Julio Monk PA-C Unavailable Luis Armando Eller MD Unavailable [phone] Jayesh Pineda MD Unavailable Kelsi Tejada MD Unavailable Unavailable Pretty Le MD Unavailable Vesta Michael PA-C Unavailable [phone] [facility] Unavailable [phone] Encounter Details Date Type Department Care Team Description 07/12/2022 Refill Pulmonology - [place] 175 [facility] [address] [place] [address] Michael Saldana MD Social History Tobacco Use Types Packs/Day Years Used Date Smoking Tobacco: Never Smokeless Tobacco: Never Alcohol Use Standard Drinks/Week Comments No 0 (1 standard drink = 0.6 oz pur e alcohol) Education Answer Date Recorded What is the highest level of school you have completed or the highest degree you have received? 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, TECHNOLOGY SERVICES MANAGER, CHANDRAKANT) 06/14/2020 Sex Assigned at Date [...] complicated documented in this encounter Care Teams Panelboard Tank Pumper Relationship Specialty Start Date End Date Ora Ronquillo MD 444 [place] [address] PCP - General Internal Medicine 10/11/21 Jl Mendez MD [address] [place] [address] Dr Mont[address] [place] [address] Specialist Cardiovascular Disease 10/13/21 Jannette Boudreaux MD [address] [address] Surgeon Neurosurgery 04/07/22 Tenisha Mendieta PA-C [address] [address] Specialist Neurosurgery 04/07/22 Julio Monk PA-C [address] [address] Specialist Neurosurgery 04/07/22 Luis Armando Eller MD [address] [address] Specialist ORTHOPEDIC SURGERY 10/01/23 Jayesh Pineda MD 305 [place] [address] Specialist Endocrinology 10/01/23 Kelsi Tejada MD 305 [place] [address] Specialist Allergy & Immunology 10/01/23 Pretty Le MD 175 [facility] [address] [place] [address] Specialist Pulmonology 10/01/23 Vesta Michael PA-C 300 [facility] [address] [place] [address] Specialist Vascular Surgery 10/01/23 [facility] 46 [place] [address] Specialist Optometry 10/01/23 documented as of this encounter
--- OUTSIDE RECORDS SUMMARY | 2024-05-20 11:00 | XMS_ITS | Encounter Summary ---
Author Organization [facility] Address [address] [place] [address] Care Team Providers Care Real Estate Associate Name Role Phone Teressa Solis DO Primary Care Pro vider Unavailable Mina Pretty DO Primary Care Provider Shweta Cronin MD Primary Care Provider Ora Diaz MD Primary Care Prov ider Jl Mendez MD Unavailable [phone] Jannette Boudreaux MD Unavailable [phone] Tenisha Mendieta PA-C Unavailable Julio Monk PA-C Unavailable [phone] Luis Armando Eller MD Unavailable [phone] Jayesh Pineda MD Unavailable Kelsi Tejada MD Unavailable Unavailable Pretty Le MD Unavailable Vesta Michael PA-C Unavailable [phone] [facility] Unavailable [phone] Encounter Details Date Type Department Care Team Description 04/19/2020 Secondary Spanish Teacher Report Medical Records 4 [place] [address] Jose Daniel Nguyễn MD Social History Tobacco [...] on filedocumented in this encounter Care Teams Real Estate Associate Relationship Specialty Start Date End Date Teressa Solis DO PCP - General Internal Medicine 12/18/13 09/15/20 Mina Pretty DO PCP - General Internal Medicine 09/16/20 Shweta Boucher MD PCP - General Internal Medicine 01/12/21 10/10/21 Ora Ronquillo MD [address] [place] [address] PCP - General Internal Medicine 10/11/21 Jl Mendez MD [address] [place] [address] Dr Mnotiel [address] [place] [address] Specialist Cardiovascular Disease 10/13/21 Jannette Boudreaux MD [address] [address] Surgeon Neurosurgery 04/07/22 Tenisha Mendieta PA-C [address] [address] Specialist Neurosurgery 04/07/22 Julio Monk PA-C 175 [facility] [address] [place] [address] Specialist Neurosurgery 04/07/22 Luis Armando Eller MD [address] [address] Specialist ORTHOPEDIC SURGERY 10/01/23 Jayesh Pineda MD [address] [place] [address] Specialist Endocrinology 10/01/23 Kelsi Tejada MD 305 [place] [address] Specialist Allergy & Immunology 10/01/23 Pretty Le MD 175 [facility] [address] [place] [address] Specialist Pulmonology 10/01/23 Vesta Michael PA-C 300 [facility] 210 [place] [address] Specialist Vascular Surgery 10/01/23 [facility] 46 [place] [address] Specialist Optometry 10/01/23 documented as of this encounter
--- OUTSIDE RECORDS SUMMARY | 2024-05-20 11:00 | XMS_ITS | Encounter Summary ---
Author Organization [facility] Address [address] [place] [address] Care Team Providers Care Pl Sql Programmer Name Role Phone Teressa Solis DO Primary Care Pro vider Unavailable Mina Pretty DO Primary Care Provider Shweta Cornin MD Primary Care Provider Ora Diaz MD Primary Care Prov ider Jl Mendez MD Unavailable Jannette Boudreaux MD Unavailable [phone] Tenisha Mendieta PA-C Unavailable [phone] Julio Monk PA-C Unavailable Luis Armando Eller MD Unavailable [phone] Jayesh Pineda MD Unavailable Kelsi Tejada MD Unavailable Unavailable Pretty Le MD Unavailable Vesta Michael PA-C Unavailable [facility] Unavailable [phone] Encounter Details Date Type Department Care Team Description 10/01/2019 Orders Only Medical Records [address] [place] [address] Irvin Ling MD 175 [facility] [address] [place], [place] [id number] Social History Tobacco Use Types Packs/Day Years [...] Date/Time Associated Diagnosis Comments OUTSIDE PATHOLOGY Routine 09/29/2019 documented in this encounter Results * OUTSIDE PATHOLOGY (09/29/2019) Irvin Ling MD OUTSIDE LAB documented in this encounter Visit Diagnoses Not on filedocumented in this encounter Care Teams Pl Sql Programmer Relationship Specialty Start Date End Date Teressa Solis, PCP - General Internal Medicine 12/18/13 09/15/20 Mina Pretty DO PCP - General Internal Medicine 09/16/20 Shweta Boucher MD PCP - General Internal Medicine 01/12/21 10/10/21 Ora Ronquillo MD [address] [place] [address] PCP - General Internal Medicine 10/11/21 Jl Mendez MD [address] [place] [address] Dr Montiel [address] [place] [address] Specialist Cardiovascular Disease 10/13/21 Jannette Boudreaux MD [address] [address] Surgeon Neurosurgery 04/07/22 Teinsha Mendieta PA-C [address] [address] Specialist Neurosurgery 04/07/22 Julio Monk PA-C [address] [address] Specialist Neurosurgery 04/07/22 Luis Armando Eller MD [address] [address] Specialist ORTHOPEDIC SURGERY 10/01/23 Jayesh Pineda MD 305 [place] [address] Specialist Endocrinology 10/01/23 Kelsi Tejada MD 305 [place] [address] Specialist Allergy & Immunology 10/01/23 Pretty Le MD 175 [facility] [address] [place] [address] Specialist Pulmonology 10/01/23 Vesta Michael PA-C 300 [facility] [address] [place] [address] Specialist Vascular Surgery 10/01/23 [facility] [address] [place] [address] Specialist Optometry 10/01/23 documented as of this encounter
--- OUTSIDE RECORDS SUMMARY | 2024-05-20 11:00 | XMS_ITS | Encounter Summary ---
Author Organization [facility] Address [address] [place] [address] Care Team Providers Care Boston Cutter Name Role Phone Teressa Solis DO Primary Care Pro vider Unavailable Mina Pretty DO Primary Care Provider Shweta Cronin MD Primary Care Provider Ora Diaz MD Primary Care Prov ider Jl Mendez MD Unavailable Jannette Boudreaux MD Unavailable [phone] Tenisha Mendieta PA-C Unavailable [phone] Julio Monk PA-C Unavailable Luis Armando Eller MD Unavailable [phone] Jayesh Pineda MD Unavailable Kelsi Tejada MD Unavailable Unavailable Pretty Le MD Unavailable Vesta Michael PA-C Unavailable [facility] Unavailable Reason for Visit * Reason Onset Date Comments Medication 06/11/2019 Home Injection? Encounter Details Date Type Department Care Team Description 06/11/2019 Telephone Allergy [place] [address] [place] [address] Kelsi Tejada MD Medication (Home [...] on filedocumented in this encounter Care Teams Boston Cutter Relationship Specialty Start Date End Date Teressa Solis DO PCP - General Internal Medicine 12/18/13 09/15/20 Mina Pretty DO PCP - General Internal Medicine 09/16/20 1 Shweta Tellez MD PCP - General Internal Medicine 01/12/21 10/10/21 Ora Ronquillo MD [address] [place] [address] PCP - General Internal Medicine 10/11/21 Jl eMndez MD [address] [place] [address] Dr Mont[address] [place] [address] Specialist Cardiovascular Disease 10/13/21 Jannette Boudreaux MD 175 [facility] 300 [place] [address] Surgeon Neurosurgery 04/07/22 Tenisha Mendieta PA-C [address] [address] Specialist Neurosurgery 04/07/22 Julio Monk PA-C 175 [facility] 300 [place] [address] Specialist Neurosurgery 04/07/22 Luis Armando Eller MD 175 [facility] 250 [place] [address] Specialist ORTHOPEDIC SURGERY 10/01/23 Jayesh Pineda MD 305 [place] [address] Specialist Endocrinology 10/01/23 Kelsi Tejada MD 305 [place] [address] Specialist Allergy & Immunology 10/01/23 Pretty Le MD 175 [facility] [address] [place] [address] Specialist Pulmonology 10/01/23 Vesta Michael PA-C 300 [facility] [address] [place] [address] Specialist Vascular Surgery 10/01/23 [facility] [address] [place] [address] Specialist Optometry 10/01/23 documented as of this encounter
--- OUTSIDE RECORDS SUMMARY | 2024-05-20 11:00 | XMS_ITS | Encounter Summary ---
Author Organization [facility] Address [address] [place] [address] Care Team Providers Care Clinical Research Specialist Name Role Phone Ora Ronquillo MD Primary Care Prov ider Jl Mendez MD Unavailable Jannette Boudreaux MD Unavailable [phone] Tenisha Mendieta PA-C Unavailable Julio Monk PA-C Unavailable Luis Armando Eller MD Unavailable [phone] Jayesh Pineda MD Unavailable Kelsi Tejada MD Unavailable Unavailable Pretty Le MD Unavailable Vesta Michael PA-C Unavailable [phone] [facility] Unavailable [phone] Encounter Details Date Type Department Care Team Description 08/07/2023 Refill Pulmonology - [place] 175 [facility] [address] [place] [address] Julio Cesar Weiss MD 175 [facility] [address] [place] [address] Social History Tobacco Use Types Packs/Day Years Used Date Smoking Tobacco: Never Smokeless Tobacco: Never Alcohol Use Standard Drinks/Week Comments No 0 (1 standard drink = 0.6 oz pur e alcohol) Education Answer Date Recorded What is the highest level of school you have completed or the highest degree you have received? 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, SENIOR STAFF PSYCHOLOGIST, CHANDRAKANT) 06/14/2020 Sex Assigned at Date [...] seasonality documented in this encounter Care Teams Clinical Research Specialist Relationship Specialty Start Date End Date Ora Ronquillo MD 4 [place] [address] PCP - General Internal Medicine 10/11/21 Jl Mendez MD [address] [place] [address] Dr Montiel [address] [place] [address] Specialist Cardiovascular Disease 10/13/21 Jannette Boudreaux MD [address] [address] Surgeon Neurosurgery 04/07/22 Tenisha Mendieta PA-C [address] [address] Specialist Neurosurgery 04/07/22 Julio Monk PA-C [address] [address] Specialist Neurosurgery 04/07/22 Luis Armando Eller MD 175 [facility] [address] [place] [address] Specialist ORTHOPEDIC SURGERY 10/01/23 Jayesh Pineda MD 305 [place] [address] Specialist Endocrinology 10/01/23 Kelsi Tejada MD 305 [place] [address] Specialist Allergy & Immunology 10/01/23 Pretty Le MD 175 [facility] [address] [place] [address] Specialist Pulmonology 10/01/23 Vesta Michael PA-C 300 [facility] [address] [place] [address] Specialist Vascular Surgery 10/01/23 [facility] [address] [place] [address] Specialist Optometry 10/01/23 documented as of this encounter
--- OUTSIDE RECORDS SUMMARY | 2024-05-20 11:00 | XMS_ITS | Encounter Summary ---
Author Organization [facility] Address [address] [place] [address] Care Team Providers Care Local Area Network Administrator Name Role Phone Shweta Tellez MD Primary Care Provider Ora Diaz MD Primary Care Prov ider Jl Mendez MD Unavailable Jannette Boudreaux MD Unavailable [phone] Tenisha Mendieta PA-C Unavailable [phone] Julio Monk PA-C Unavailable [phone] Luis Armando Eller MD Unavailable [phone] Jayesh Pineda MD Unavailable Kelsi Tejada MD Unavailable Unavailable Pretty Le MD Unavailable Vesta Michael PA-C Unavailable [phone] [facility] Unavailable [phone] Encounter Details Date Type Department Care Team Description 09/09/2021 Refill Endocrinology - [address] [address] Jayesh Pineda MD 305 [place], [place] [id number] Social History Tobacco Use Types Packs/Day Years Used Date Smoking Tobacco: Never Smokeless Tobacco: Never Alcohol Use Standard Drinks/Week Comments No 0 (1 standard drink = 0.6 oz pur e alcohol) Education Answer Date Recorded What is the highest level of school you have completed or the highest degree you have received? 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, PLANT CYTOLOGIST, CHANDRAKANT) 06/14/2020 Sex Assigned at Date Recorded [...] * Telephone Encounter - Julian Recinos - 09/09/2021 1:29 PM EDT Jordyn 08/01/21 Ov 11/01/21 Lab Results Component Value Date TSH 3.64 08/25/2021 documented in this encounter Plan of Treatment Not on file documented as of this encounter Visit Diagnoses Not on filedocumented in this encounter Care Teams Local Area Network Administrator Relationship Specialty Start Date End Date Shweta Tellez MD PCP - General Internal Medicine 01/12/21 10/10/21 Ora Ronquillo MD [address] [place] [address] PCP - General Internal Medicine 10/11/21 Jl Mendez MD [address] [place] [address] Dr Mont[address] [place] [address] Specialist Cardiovascular Disease 10/13/21 Jannette Boudreaux MD [address] [address] Surgeon Neurosurgery 04/07/22 Tenisha Mendieta PA-C 175 [facility] 300 [place] [address] Specialist Neurosurgery 04/07/22 Julio Monk PA-C [address] [facility] 300 [place] [address] Specialist Neurosurgery 04/07/22 Luis Armando Eller MD 175 [facility] 250 [place] [address] Specialist ORTHOPEDIC SURGERY 10/01/23 Jayesh Pineda MD 305 [place] [address] Specialist Endocrinology 10/01/23 Kelsi Tejada MD 305 [place] [address] Specialist Allergy & Immunology 10/01/23 Pretty Le MD 175 [facility] 200 [place] [address] Specialist Pulmonology 10/01/23 Vesta Michael PA-C 300 [facility] 210 [place] [address] Specialist Vascular Surgery 10/01/23 [facility] 46 [place] [address] Specialist Optometry 10/01/23 documented as of this encounter
--- OUTSIDE RECORDS SUMMARY | 2024-05-20 11:00 | XMS_ITS | Encounter Summary ---
Author Organization [facility] Address [address] [place] [address] Care Team Providers Care Rn Geriatric Name Role Phone Teressa Solis DO Primary Care Pro vider Unavailable Mina Pretty DO Primary Care Provider Shweta Cronin MD Primary Care Provider Ora Diaz MD Primary Care Prov ider Jl Mendez MD Unavailable Jannette Boudreaux MD Unavailable [phone] Tenisha Mendieta PA-C Unavailable [phone] Julio Monk PA-C Unavailable [phone] Luis Armando Eller MD Unavailable [phone] Jayesh Pineda MD Unavailable Kelsi Tejada MD Unavailable Unavailable Pretty Le MD Unavailable Vesta Michael PA-C Unavailable [phone] [facility] Unavailable [phone] Encounter Details Date Type Department Care Team Description 07/21/2019 Hospital Medical Records 4 [place] [address] [facility] Social History Tobacco Use Types Packs/Day Years Used Date Smoking Tobacco: Never Smokeless Tobacco: Never Alcohol Use Standard Drinks/Week Comments No 0 (1 standard drink = 0.6 oz pur e alcohol) Education Answer Date Recorded What is the highest level of school you have completed or the highest degree you have received? 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, ACCORDION TUNER, CHANDRAKANT) 06/14/2020 Sex Assigned at Date Recorded Female 08/03/2020 10:16 PM EDT Job Start Date Occupation Industry Not on file Not on file Not on file documented as of this encounter Plan of Treatment Not on file documented as of this encounter Visit Diagnoses Not on filedocumented in this encounter Care Teams Rn Geriatric Relationship Specialty Start Date End Date Teressa Solis, PCP - General Internal Medicine 12/18/13 09/15/20 Mina Pretty DO PCP - General Internal Medicine 09/16/20 Shweta Boucher MD PCP - General Internal Medicine 01/12/21 10/10/21 Ora Ronquillo MD [address] [place] [address] PCP - General Internal Medicine 10/11/21 Jl Mendez MD [address] [place] [address] Dr Mont[address] [place] [address] Specialist Cardiovascular Disease 10/13/21 Jannette Boudreaux MD [address] [address] Surgeon Neurosurgery 04/07/22 Tenisha Mendieta PA-C [address] [address] Specialist Neurosurgery 04/07/22 Julio Monk PA-C 175 [facility] [address] [place] [address] Specialist Neurosurgery 04/07/22 Luis Armando Eller MD [address] [address] Specialist ORTHOPEDIC SURGERY 10/01/23 Jayesh Pineda MD [address] [place] [address] Specialist Endocrinology 10/01/23 Kelsi Tejada MD 305 [place] [address] Specialist Allergy & Immunology 10/01/23 Pretty Le MD 175 [facility] [address] [place] [address] Specialist Pulmonology 10/01/23 Vesta Michael PA-C 300 [facility] [address] [place] [address] Specialist Vascular Surgery 10/01/23 [facility] 46 [place], [place] [address] Specialist Optometry 10/01/23 documented as of this encounter
--- OUTSIDE RECORDS SUMMARY | 2024-05-20 11:00 | XMS_ITS | Encounter Summary ---
Author Organization [facility] Address [address] [place] [address] Care Team Providers Care Security Supervisor Name Role Phone Teressa Solis DO Primary Care Pro vider Unavailable Mina Pretty DO Primary Care Provider Shweta Cronin MD Primary Care Provider Ora Diaz MD Primary Care Prov ider Jl Mendez MD Unavailable Jannette Boudreaux MD Unavailable [phone] Tenisha Mendieta PA-C Unavailable Julio Monk PA-C Unavailable Luis Armando Eller MD Unavailable [phone] Jayesh Pineda MD Unavailable Kelsi Tejada MD Unavailable Unavailable Pretty Le MD Unavailable Vesta Michael PA-C Unavailable [facility] Unavailable [phone] Encounter Details Date Type Department Care Team Description 08/25/2019 Orders Only Adult Medicine [address] [address] Teressa Solis DO Social History [...] filedocumented in this encounter Care Teams Security Supervisor Relationship Specialty Start Date End Date Teressa Solis DO PCP - General Internal Medicine 12/18/13 09/15/20 Mina Pretty DO PCP - General Internal Medicine 09/16/20 1 Shweta Tellez MD PCP - General Internal Medicine 01/12/21 10/10/21 Hiwot Couch, Ora Kelly MD [address] [place] [address] PCP - General Internal Medicine 10/11/21 Jl Mendez MD [address] [place] [address] Dr Mont[address] [place] [address] Specialist Cardiovascular Disease 10/13/21 Jannette Boudreaux MD [address] [address] Surgeon Neurosurgery 04/07/22 Tenisha Mendieta PA-C [address] [address] Specialist Neurosurgery 04/07/22 Julio Monk PA-C 175 [facility] [address] [place] [address] Specialist Neurosurgery 04/07/22 Luis Armando Eller MD [address] [address] Specialist ORTHOPEDIC SURGERY 10/01/23 Jayesh Pineda MD 305 [place] [address] Specialist Endocrinology 10/01/23 Kelsi Tejada MD 305 [place] [address] Specialist Allergy & Immunology 10/01/23 Pretty Le MD 175 [facility] [address] [place] [address] Specialist Pulmonology 10/01/23 Vesta Michael PA-C 300 [facility] [address] [place] [address] Specialist Vascular Surgery 10/01/23 [facility] [address] [place] [address] Specialist Optometry 10/01/23 documented as of this encounter
--- OUTSIDE RECORDS SUMMARY | 2024-05-20 11:00 | XMS_ITS | Encounter Summary ---
Author Organization [facility] Address [address] [place] [address] Care Team Providers Care Assembly And Packing Supervisor Name Role Phone Ora Ronquillo MD Primary Care Prov ider Jl Mendez MD Unavailable Jannette Boudreaux MD Unavailable [phone] Tenisha MendietaC Unavailable Julio Monk PA-C Unavailable Luis Armando Eller MD Unavailable [phone] Jayesh Pineda MD Unavailable Kelsi Tejada MD Unavailable Unavailable Pretty Le MD Unavailable Vesta Michael PA-C Unavailable [phone] [facility] Unavailable [phone] Encounter Details Date Type Department Care Team Description 12/21/2021 Refill Orthopedics-[address] [id number] Negrito Tenorio PA-C [address] [place] [id number] Social History Tobacco Use Types Packs/Day Years Used Date Smoking Tobacco: Never Smokeless Tobacco: Never Alcohol Use Standard Drinks/Week Comments No 0 (1 standard drink = 0.6 oz pur e alcohol) Education Answer Date Recorded What is the highest level of school you have completed or the highest degree you have received? 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, SUPERVISOR PUBLIC HEALTH NURSING, CHANDRAKANT) 06/14/2020 Sex Assigned at Date Recorded Female 08/03/2020 10:16 PM EDT Job Start Date Occupation Industry Not on file Not on file Not on file COVID-19 Exposure Response Date Recorded In the last 10 days, have yo u been in contact with someone who was confirmed or suspected to have Coronavirus/COVID-19? No / Unsure 12/13/2021 2:00 PM EDT documented as of this encounter Miscellaneous Notes * Telephone Encounter - Yesenia Acosta M.A. - 12/22/2021 9:18 AM EDT Last office visit 10/11/21 Next office visit 04/11/22 Next office visit 06/12/22 with new PCP Last filled on 10/20/21 for 12 tabs. Is this to soon? documented in this encounter Plan of Treatment Not on file documented as of this encounter Visit Diagnoses Not on filedocumented in this encounter Care Teams Assembly And Packing Supervisor Relationship Specialty Start Date End Date Ora Ronquillo MD [address] [place] [address] PCP - General Internal Medicine 10/11/21 Jl Mendez MD [address] [place] [address] [place] [address] Specialist Cardiovascular Disease 10/13/21 Jannette Boudreaux MD [address] [address] Surgeon Neurosurgery 04/07/22 Tenisha Mendieta PA-C [address] [address] Specialist Neurosurgery 04/07/22 Julio Monk PA-C [address] [address] Specialist Neurosurgery 04/07/22 Luis Armando Eller MD 175 [facility] [address] [place] [address] Specialist ORTHOPEDIC SURGERY 10/01/23 Jayesh Pineda MD 305 [place] [address] Specialist Endocrinology 10/01/23 Kelsi Tejada MD 305 [place] [address] Specialist Allergy & Immunology 10/01/23 Pretty Le MD 175 [facility] [address] [place] [address] Specialist Pulmonology 10/01/23 Vesta Michael PA-C 300 [facility] [address] [place] [address] Specialist Vascular Surgery 10/01/23 [facility] 46 [place] [address] Specialist Optometry 10/01/23 documented as of this encounter
--- OUTSIDE RECORDS SUMMARY | 2024-05-20 11:00 | XMS_ITS | Encounter Summary ---
Author Organization [facility] Address [address] [place] [address] Care Team Providers Care Railroad Track Inspector Name Role Phone Teressa Solis DO Primary Care Pro vider Unavailable Mina Pretty DO Primary Care Provider Ailyn Shweta Pretty MD Primary Care Provider Ora Diaz MD Primary Care Prov ider Jl Mendez MD Unavailable Jannette Boudreaux MD Unavailable [phone] Tenisha Mendieta PA-C Unavailable Julio Monk PA-C Unavailable Luis Armando Eller MD Unavailable [phone] Jayesh Pineda MD Unavailable Kelsi Tejada MD Unavailable Unavailable Pretty Le MD Unavailable Vesta Michael PA-C Unavailable [phone] [facility] Unavailable Encounter Details Date Type Department Care Team Description 08/19/[address] [facility] 175 [facility] [address] [place] [address] Luis Armando Staton MD Social [...] filedocumented in this encounter Care Teams Railroad Track Inspector Relationship Specialty Start Date End Date Teressa Solis DO PCP - General Internal Medicine 12/18/13 09/15/20 Mina Pretty DO PCP - General Internal Medicine 09/16/20 Shweta Boucher MD PCP - General Internal Medicine 01/12/21 10/10/21 Ora Ronquillo MD [address] [place] [address] PCP - General Internal Medicine 10/11/21 lJ Mendez MD [address] [place] [address] Dr Mont[address] [place] [address] Specialist Cardiovascular Disease 10/13/21 Jannette Boudreaux MD [address] [address] Surgeon Neurosurgery 04/07/22 Tenisha Mendieta PA-C [address] [address] Specialist Neurosurgery 04/07/22 Julio Monk PA-C [address] [address] Specialist Neurosurgery 04/07/22 Luis Armando Eller MD [address] [address] Specialist ORTHOPEDIC SURGERY 10/01/23 Jayesh Pineda MD 305 [place] [address] Specialist Endocrinology 10/01/23 Kelsi Tejada MD 305 [place] [address] Specialist Allergy & Immunology 10/01/23 Pretty Le MD 175 [facility] [address] [place] [address] Specialist Pulmonology 10/01/23 Vesta Michael PA-C 300 [facility] 210 [place] [address] Specialist Vascular Surgery 10/01/23 [facility] [address] [place] [address] Specialist Optometry 10/01/23 documented as of this encounter
--- OUTSIDE RECORDS SUMMARY | 2024-05-20 11:00 | XMS_ITS | Encounter Summary ---
Author Organization [facility] Address [address] [place] [address] Care Team Providers Care Help Desk Representative Name Role Phone Teressa Solis DO Primary Care Pro vider Unavailable Mina Pretty DO Primary Care Provider Shweta Cronin MD Primary Care Provider Ora Diaz MD Primary Care Prov ider Jl Mendez MD Unavailable Jannette Boudreaux MD Unavailable [phone] Tenisha Mendieta PA-C Unavailable Julio Monk PA-C Unavailable Luis Armando Eller MD Unavailable [phone] Jayesh Pineda MD Unavailable Kelsi Tejada MD Unavailable Unavailable Pretty Le MD Unavailable Vesta Michael PA-C Unavailable [phone] [facility] Unavailable Encounter Details Date Type Department Care Team Description 06/13/2019 Telephone Allergy [place] 98 [address] [place] [address] Kelsi Tejada MD Social History [...] Irby M.A. - 06/13/2019 9:08 AM EDT [facility] calling to set up delivery for Nucala. [...] on filedocumented in this encounter Care Teams Help Desk Representative Relationship Specialty Start Date End Date Teressa Solis DO PCP - General Internal Medicine 12/18/13 09/15/20 Mina Pretty DO PCP - General Internal Medicine 09/16/20 1 Shweta Tellez MD PCP - General Internal Medicine 01/12/21 10/10/21 Ora Ronquillo MD [address] [place] [address] PCP - General Internal Medicine 10/11/21 Jl Mendez MD [address] [place] [address] Dr Mont[address] [place] [address] Specialist Cardiovascular Disease 10/13/21 Jannette Boudreaux MD [address] [address] Surgeon Neurosurgery 04/07/22 Tenisha Mendieta PA-C 175 [facility] 300 [place] [address] Specialist Neurosurgery 04/07/22 Julio Monk PA-C 175 [facility] 300 [place] [address] Specialist Neurosurgery 04/07/22 Luis Armando Eller MD 175 [facility] 250 [place] [address] Specialist ORTHOPEDIC SURGERY 10/01/23 Jayesh Pineda MD 305 [place] [address] Specialist Endocrinology 10/01/23 Kelsi Tejada MD 305 [place] [address] Specialist Allergy & Immunology 10/01/23 Pretty Le MD 175 [facility] 200 [place] [address] Specialist Pulmonology 10/01/23 Vesta Michael PA-C 300 [facility] 210 [place] [address] Specialist Vascular Surgery 10/01/23 [facility] 46 [place] [address] Specialist Optometry 10/01/23 documented as of this encounter
--- OUTSIDE RECORDS SUMMARY | 2024-05-20 11:00 | XMS_ITS | Encounter Summary ---
Author Organization [facility] Address [address] [place] [address] Care Team Providers Care Reciprocating Drill Operator Name Role Phone Shweta Tellez MD Primary Care Provider Ora Diaz MD Primary Care Prov ider Jl Mendez MD Unavailable Jannette Boudreaux MD Unavailable [phone] Tenisha Mendieta PA-C Unavailable [phone] Julio Monk PA-C Unavailable Luis Armando Eller MD Unavailable [phone] Jayesh Pineda MD Unavailable Kelsi Tejada MD Unavailable Unavailable Pretty Le MD Unavailable Vesta Michael PA-C Unavailable [phone] [facility] Unavailable [phone] Reason for Visit * Reason Onset Date Comments heartburn 08/31/2021 Encounter Details Date Type Department Care Team Description 08/31/2021 Telephone Adult Medicine [address] [id number] Shweta Tellez MD heartburn Social History Tobacco Use Types Packs/Day Years Used Date Smoking Tobacco: Never Smokeless Tobacco: Never Alcohol Use Standard Drinks/Week Comments No 0 (1 standard drink = 0.6 oz pur e alcohol) Education Answer Date Recorded What is the highest level of school you have completed or the highest degree you have received? 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, EDUCATION GENERAL MANAGER, CHANDRAKANT) 06/14/2020 Sex Assigned at Date [...] was [place] [facility] [place]. Was advised [...] traveled recently to another state outside of [place], [place], [place], [place], [place], [place], [place]? NO o If yes, did you [...] vehicle accident? NO If yes, gather 3rd constitution party insurance information Date of accident/Injury: How long has patient had these symptoms?: 1.5 weeks PCP: Shweta Tellez Payor: [employer] FFS / Plan: [employer] / Product Type: MEDICAID RISK documented in this encounter Plan of Treatment Not on file documented as of this encounter Visit Diagnoses Not on filedocumented in this encounter Care Teams Reciprocating Drill Operator Relationship Specialty Start Date End Date Shweta Tellez MD PCP - General Internal Medicine 01/12/21 10/10/21 Ora Ronquillo MD [address] [place] [address] PCP - General Internal Medicine 10/11/21 Jl Mendez MD [address] [place] [address] [place] [address] Specialist Cardiovascular Disease 10/13/21 Jannette Boudreaux MD [address] [address] Surgeon Neurosurgery 04/07/22 Tenisha Mendieta PA-C [address] [address] Specialist Neurosurgery 04/07/22 Julio Monk PA-C [address] [address] Specialist Neurosurgery 04/07/22 Luis Armando Eller MD 175 [facility] [address] [place] [address] Specialist ORTHOPEDIC SURGERY 10/01/23 Jayesh Pineda MD 305 [place] [address] Specialist Endocrinology 10/01/23 Kelsi Tejada MD 305 [place] [address] Specialist Allergy & Immunology 10/01/23 Pretty Le MD 175 [facility] [address] [place] [address] Specialist Pulmonology 10/01/23 Vesta Michael PA-C 300 [facility] [address] [place] [address] Specialist Vascular Surgery 10/01/23 [facility] 46 [place] [address] Specialist Optometry 10/01/23 documented as of this encounter
--- OUTSIDE RECORDS SUMMARY | 2024-05-20 11:00 | XMS_ITS | Encounter Summary ---
Author Organization [facility] Address [address] [place] [address] Care Team Providers Care River Pilot Name Role Phone Ora Ronquillo MD Primary Care Prov ider Jl Mendez MD Unavailable Jannette Boudreaux MD Unavailable [phone] Tenisha Mendieta PA-C Unavailable [phone] Julio MonkC Unavailable Luis Armando Eller MD Unavailable [phone] Jayesh Pineda MD Unavailable Kelsi Tejada MD Unavailable Unavailable Pretty Le MD Unavailable Vesta Michael PA-Pina Unavailable [phone] [facility] Unavailable [phone] Encounter Details Date Type Department Care Team Description 02/09/2022 Numerical Control Tool Programmer Report Medical Records [address] [place] [address] Jorge Belcher II Social History Tobacco Use Types Packs/Day Years Used Date Smoking Tobacco: Never Smokeless Tobacco: Never Alcohol Use Standard Drinks/Week Comments No 0 (1 standard drink = 0.6 oz pur e alcohol) Education Answer Date Recorded What is the highest level of school you have completed or the highest degree you have received? 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, FUR FARMER, CHANDRAKANT) 06/14/2020 Sex Assigned at Date Recorded Female 08/03/2020 10:16 PM EDT Job Start Date Occupation Industry Not on file Not on file Not on file documented as of this encounter Plan of Treatment Not on file documented as of this encounter Visit Diagnoses Not on filedocumented in this encounter Care Teams River Pilot Relationship Specialty Start Date End Date Ora Ronquillo MD [address] [place] [address] PCP - General Internal Medicine 10/11/21 Jl Mendez MD [address] [place] [address] Dr Mont[address] [place] [address] Specialist Cardiovascular Disease 10/13/21 Jannette Boudreaux MD [address] [address] Surgeon Neurosurgery 04/07/22 Tenisha Mendieta PA-C [address] [address] Specialist Neurosurgery 04/07/22 Julio Monk PA-C 175 [facility] 300 [place] [address] Specialist Neurosurgery 04/07/22 Luis Armando Eller MD 175 [facility] 250 [place] [address] Specialist ORTHOPEDIC SURGERY 10/01/23 Jayesh Pineda MD 305 [place] [address] Specialist Endocrinology 10/01/23 Kelsi Tejada MD 305 [place] [address] Specialist Allergy & Immunology 10/01/23 Pretty Le MD 175 [facility] 200 [place] [address] Specialist Pulmonology 10/01/23 Vesta Michael PA-C 300 [facility] 210 [place] [address] Specialist Vascular Surgery 10/01/23 [facility] 46 [place], [place] [address] Specialist Optometry 10/01/23 documented as of this encounter
--- OUTSIDE RECORDS SUMMARY | 2024-05-20 11:00 | XMS_ITS | Encounter Summary ---
Author Organization [facility] Address [address] [place] [address] Care Team Providers Care Business Consult Name Role Phone Shweta Tellez MD Primary Care Provider Ora Diaz MD Primary Care Prov ider Jl Mendez MD Unavailable [phone] Jannette Boudreaux MD Unavailable [phone] Tenisha Mendieta PA-C Unavailable [phone] Julio Monk PA-C Unavailable Luis Armando Eller MD Unavailable [phone] Jayesh Pineda MD Unavailable Kelsi Tejada MD Unavailable Unavailable Pretty Le MD Unavailable Vesta Michael-C Unavailable [phone] [facility] Unavailable [phone] Encounter Details Date Type Department Care Team Description 09/09/2021 Hospital Medical Records [address] [place] [address] Cailin Ballesteros NP Social History Tobacco Use Types Packs/Day Years Used Date Smoking Tobacco: Never Smokeless Tobacco: Never Alcohol Use Standard Drinks/Week Comments No 0 (1 standard drink = 0.6 oz pur e alcohol) Education Answer Date Recorded What is the highest level of school you have completed or the highest degree you have received? 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, PROBATION WORKER, CHANDRAKANT) 06/14/2020 Sex Assigned at Date [...] on filedocumented in this encounter Care Teams Business Consult Relationship Specialty Start Date End Date Shweta Tellez MD PCP - General Internal Medicine 01/12/21 10/10/21 Ora Ronquillo MD [address] [place] [address] PCP - General Internal Medicine 10/11/21 Jl Mendez MD [address] [place] [address] Dr Montiel [address] [place] [address] Specialist Cardiovascular Disease 10/13/21 Jannette Boudreaux MD [address] [address] Surgeon Neurosurgery 04/07/22 Tenisha Mendieta PA-C [address] [address] Specialist Neurosurgery 04/07/22 Julio Monk PA-C 175 [facility] [address] [place] [address] Specialist Neurosurgery 04/07/22 Luis Armando Eller MD [address] [address] Specialist ORTHOPEDIC SURGERY 10/01/23 Jayesh Pineda MD 305 [place] [address] Specialist Endocrinology 10/01/23 Kelsi Tejada MD 305 [place] [address] Specialist Allergy & Immunology 10/01/23 Pretty Le MD 175 [facility] [address] [place] [address] Specialist Pulmonology 10/01/23 Vesta Michael PA-C 300 [facility] [address] [place] [address] Specialist Vascular Surgery 10/01/23 [facility] 46 [place] [address] Specialist Optometry 10/01/23 documented as of this encounter
--- OUTSIDE RECORDS SUMMARY | 2024-05-20 11:00 | XMS_ITS | Encounter Summary ---
Author Organization [facility] Address [address] [place] [address] Care Team Providers Care Engineer Design And Construction Name Role Phone Ora Ronquillo MD Primary Care Prov ider Jl Mendez MD Unavailable Jannette Boudreaux MD Unavailable [phone] Tenisha Mendieta PA-C Unavailable Julio Monk PA-C Unavailable Luis Armando Eller MD Unavailable [phone] Jayesh Pineda MD Unavailable Kelsi Tejada MD Unavailable Unavailable Pretty Le MD Unavailable Vesta Michael PA-C Unavailable [phone] [facility] Unavailable [phone] Encounter Details Date Type Department Care Team Description 07/03/2022 Refill Pulmonology - [place] 175 [facility] [address] [place] [address] Michael Saldana MD Social History Tobacco Use Types Packs/Day Years Used Date Smoking Tobacco: Never Smokeless Tobacco: Never Alcohol Use Standard Drinks/Week Comments No 0 (1 standard drink = 0.6 oz pur e alcohol) Education Answer Date Recorded What is the highest level of school you have completed or the highest degree you have received? 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, DROP MAN, CHANDRAKANT) 06/14/2020 Sex Assigned at Date Recorded [...] complicated documented in this encounter Care Teams Engineer Design And Construction Relationship Specialty Start Date End Date Ora Ronquillo MD [address] [place] [address] PCP - General Internal Medicine 10/11/21 Jl Mendez MD [address] [place] [address] Dr Mont[address] [place] [address] Specialist Cardiovascular Disease 10/13/21 Jannette Boudreaux MD [address] [address] Surgeon Neurosurgery 04/07/22 Tenisha Mendieta PA-C [address] [address] Specialist Neurosurgery 04/07/22 Julio Monk PA-C 175 [facility] [address] [place] [address] Specialist Neurosurgery 04/07/22 Luis Armando Eller MD [address] [address] Specialist ORTHOPEDIC SURGERY 10/01/23 Jayesh Pineda MD 305 [place] [address] Specialist Endocrinology 10/01/23 Kelsi Tejada MD 305 [place] [address] Specialist Allergy & Immunology 10/01/23 Pretty Le MD 175 [facility] [address] [place] [address] Specialist Pulmonology 10/01/23 Vesta Michael PA-C 300 [facility] [address] [place] [address] Specialist Vascular Surgery 10/01/23 [facility] 46 [place] [address] Specialist Optometry 10/01/23 documented as of this encounter
--- OUTSIDE RECORDS SUMMARY | 2024-05-20 11:00 | XMS_ITS | Encounter Summary ---
Author Organization [facility] Address [address] [place] [address] Care Team Providers Care Travelers' Aid Worker Name Role Phone Teressa Solis DO Primary Care Pro vider Unavailable Mina Pretty DO Primary Care Provider Ailyn Shweta Pretty MD Primary Care Provider Ora Diaz MD Primary Care Prov ider Jl Mendez MD Unavailable Jannette Boudreaux MD Unavailable [phone] Tenisha Mendieta PA-C Unavailable [phone] Julio Monk PA-C Unavailable [phone] Luis Armando Eller MD Unavailable [phone] Jayesh Pineda MD Unavailable Kelsi Tejada MD Unavailable Unavailable Pretty Le MD Unavailable Vesta Michael PA-C Unavailable [facility] Unavailable [phone] Encounter Details Date Type Department Care Team Description 06/24/2019 Telephone Gastroenterology [facility] 175 [facility] [address] [place] [address] Luis Armando Staton MD Social [...] on filedocumented in this encounter Care Teams Travelers' Aid Worker Relationship Specialty Start Date End Date Teressa Solis, DO PCP - General Internal Medicine 12/18/13 09/15/20 Mina Pretty DO PCP - General Internal Medicine 09/16/20 1 Shweta Tellez MD PCP - General Internal Medicine 01/12/21 10/10/21 Ora Ronquillo MD [address] [place] [address] PCP - General Internal Medicine 10/11/21 Jl Mendez MD [address] [place] [address] Dr Mont[address] [place] [address] Specialist Cardiovascular Disease 10/13/21 Jannette Boudreaux MD [address] [address] Surgeon Neurosurgery 04/07/22 Tenisha Mendieta PA-C [address] [address] Specialist Neurosurgery 04/07/22 Julio Monk PA-C 175 [facility] [address] [place] [address] Specialist Neurosurgery 04/07/22 Luis Armando Eller MD [address] [address] Specialist ORTHOPEDIC SURGERY 10/01/23 Jayesh Pineda MD 305 [place] [address] Specialist Endocrinology 10/01/23 Kelsi Tejada MD 305 [place] [address] Specialist Allergy & Immunology 10/01/23 Pretty Le MD 175 [facility] [address] [place] [address] Specialist Pulmonology 10/01/23 Vesta Michael PA-C 300 [facility] 210 [place] [address] Specialist Vascular Surgery 10/01/23 [facility] 46 [place] [address] Specialist Optometry 10/01/23 documented as of this encounter
--- OUTSIDE RECORDS SUMMARY | 2024-05-20 11:01 | XMS_ITS | Encounter Summary ---
Author Organization [facility] Address [address] [place] [address] Care Team Providers Care Boring Machine Feeder Name Role Phone Teressa Solis DO Primary Care Pro vider Unavailable Mina Pretty DO Primary Care Provider Shweta rConin MD Primary Care Provider Ora Diaz MD Primary Care Prov ider Jl Mendez MD Unavailable Jannette Boudreaux MD Unavailable [phone] Tenisha Mendieta PA-C Unavailable Julio Monk PA-C Unavailable [phone] Luis Armando Eller MD Unavailable [phone] Jayesh Pineda MD Unavailable Kelsi Tejada MD Unavailable Unavailable Pretty Le MD Unavailable Vesta Michael PA-C Unavailable [phone] [facility] Unavailable [phone] Encounter Details Date Type Department Care Team Description 04/04/2020 Hospital Medical Records [address] [place] [address] Jose Gya, METAL BURNISHER Social History Tobacco Use Types Packs/Day Years Used Date Smoking Tobacco: Never Smokeless Tobacco: Never Alcohol Use Standard Drinks/Week Comments No 0 (1 standard drink = 0.6 oz pur e alcohol) Education Answer Date Recorded What is the highest level of school you have completed or the highest degree you have received? 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, DEGREASER, CHANDRAKANT) 06/14/2020 Sex Assigned at Date Recorded [...] on filedocumented in this encounter Care Teams Boring Machine Feeder Relationship Specialty Start Date End Date Teressa Solis DO PCP - General Internal Medicine 12/18/13 09/15/20 Mina Pretty DO PCP - General Internal Medicine 09/16/20 Shweta Boucher MD PCP - General Internal Medicine 01/12/21 10/10/21 Ora Ronquillo MD [address] [place] [address] PCP - General Internal Medicine 10/11/21 Jl Mendez MD [address] [place] [address] Dr Montiel [address] [place] [address] Specialist Cardiovascular Disease 10/13/21 Jannette Boudreaux MD [address] [address] Surgeon Neurosurgery 04/07/22 Tenisha Mendieta PA-C 175 [facility] 300 [place] [address] Specialist Neurosurgery 04/07/22 Julio Monk PA-C 175 [facility] [address] [place] [address] Specialist Neurosurgery 04/07/22 Luis Armando Eller MD 175 [facility] [address] [place] [address] Specialist ORTHOPEDIC SURGERY 10/01/23 Jayesh Pineda MD 305 [place] [address] Specialist Endocrinology 10/01/23 Kelsi Tejada MD 305 [place] [address] Specialist Allergy & Immunology 10/01/23 Pretty Le MD 175 [facility] [address] [place] [address] Specialist Pulmonology 10/01/23 Vesta Michael PA-C 300 [facility] [address] [place] [address] Specialist Vascular Surgery 10/01/23 [facility] 46 [place] [address] Specialist Optometry 10/01/23 documented as of this encounter
--- OUTSIDE RECORDS SUMMARY | 2024-05-20 11:01 | XMS_ITS | Encounter Summary ---
Author Organization [facility] Address [address] [place] [address] Care Team Providers Care Health Nurse Name Role Phone Teressa Solis DO Primary Care Pro vider Unavailable Mina Pretty DO Primary Care Provider Ailyn Shweta Pretty MD Primary Care Provider Ora Diaz MD Primary Care Prov ider Jl Mendez MD Unavailable Jannette Boudreaux MD Unavailable [phone] Tenisha Mendieta PA-C Unavailable Julio Monk PA-C Unavailable Luis Armando Eller MD Unavailable [phone] Jayesh Pineda MD Unavailable Kelsi Tejada MD Unavailable Unavailable Pretty Le MD Unavailable Vesta Michael PA-C Unavailable [phone] [facility] Unavailable [phone] Reason for Visit * Reason Onset Date Comments other 11/25/2019 covid screen Encounter Details Date Type Department Care Team Description 11/25/2019 Telephone Vascular Surgery - [place] [address] [place] [address] Vesta Michael PA-C 300 [facility] [address] [place] [address] other (covid screen) Social History [...] filedocumented in this encounter Care Teams Health Nurse Relationship Specialty Start Date End Date Teressa Solis DO PCP - General Internal Medicine 12/18/13 09/15/20 Mina Pretty DO PCP - General Internal Medicine 09/16/20 1 Shweta Tellez MD PCP - General Internal Medicine 01/12/21 10/10/21 Ora Ronquillo MD [address] [place] [address] PCP - General Internal Medicine 10/11/21 Jl Mendez MD [address] [place] [address] [place] [address] Specialist Cardiovascular Disease 10/13/21 Jannette Boudreaux MD [address] [address] Surgeon Neurosurgery 04/07/22 Tenisha Mendieta PA-C 175 [facility] 300 [place] [address] Specialist Neurosurgery 04/07/22 Julio Monk PA-C 175 [facility] 300 [place] [address] Specialist Neurosurgery 04/07/22 Luis Armando Eller MD 175 [facility] 250 [place] [address] Specialist ORTHOPEDIC SURGERY 10/01/23 Jayesh Pineda MD 305 [place] [address] Specialist Endocrinology 10/01/23 Kelsi Tejada MD 305 [place] [address] Specialist Allergy & Immunology 10/01/23 Pretty Le MD 175 [facility] 200 [place] [address] Specialist Pulmonology 10/01/23 Vesta Michael PA-C 300 [facility] 210 [place] [address] Specialist Vascular Surgery 10/01/23 [facility] 46 [place] [address] Specialist Optometry 10/01/23 documented as of this encounter
--- OUTSIDE RECORDS SUMMARY | 2024-05-20 11:01 | XMS_ITS | Encounter Summary ---
Author Organization [facility] Address [address] [place] [address] Care Team Providers Care Industrial Sewer Name Role Phone Teressa Solis DO Primary Care Pro vider Unavailable Mina Pretty DO Primary Care Provider Shweta Cronin MD Primary Care Provider Ora Diaz MD Primary Care Prov ider Jl Mendez MD Unavailable Jannette Boudreaux MD Unavailable [phone] Tenisha Mendieta PA-C Unavailable [phone] Julio Monk PA-C Unavailable Luis Armando Eller MD Unavailable [phone] Jayesh Pineda MD Unavailable Kelsi Tejada MD Unavailable Unavailable Pretty Le MD Unavailable Vesta Michael PA-C Unavailable [phone] [facility] Unavailable Encounter Details Date Type Department Care Team Description 02/03/2020 [employer] [facility] Consultant Report Medical Records [address] [place] [address] Randy Domínguez MD Social History Tobacco Use [...] on filedocumented in this encounter Care Teams Industrial Sewer Relationship Specialty Start Date End Date Teressa Solis DO PCP - General Internal Medicine 12/18/13 09/15/20 Mina Pretty DO PCP - General Internal Medicine 09/16/20 Shweta Boucher MD PCP - General Internal Medicine 01/12/21 10/10/21 Ora Ronquillo MD [address] [place] [address] PCP - General Internal Medicine 10/11/21 Jl Mendez MD [address] [place] [address] Dr Montiel [address] [place] [address] Specialist Cardiovascular Disease 10/13/21 Jannette Boudreaux MD [address] [address] Surgeon Neurosurgery 04/07/22 Tenisha Mendieta PA-C [address] [address] Specialist Neurosurgery 04/07/22 Julio Monk PA-C [address] [address] Specialist Neurosurgery 04/07/22 Luis Armando Eller MD [address] [address] Specialist ORTHOPEDIC SURGERY 10/01/23 Jayesh Pineda MD [address] [place] [address] [place] [address] Specialist Endocrinology 10/01/23 Kelsi Tejada MD 305 [place] [address] Specialist Allergy & Immunology 10/01/23 Pretty Le MD 175 [facility] [address] [place] [address] Specialist Pulmonology 10/01/23 Vesta Michael PA-C 300 [facility] 210 [place] [address] Specialist Vascular Surgery 10/01/23 [facility] 46 [place] [address] Specialist Optometry 10/01/23 documented as of this encounter
--- OUTSIDE RECORDS SUMMARY | 2024-05-20 11:01 | XMS_ITS | Encounter Summary ---
Author Organization Formerly [facility] Address [address] [place] [address] Care Team Providers Care Wholesaler Name Role Phone Teressa Solis DO Primary Care Pro vider Unavailable Mina Pretty DO Primary Care Provider Shweta Cronin MD Primary Care Provider Ora Diaz MD Primary Care Prov ider Jl Mendez MD Unavailable [phone] Jannette Boudreaux MD Unavailable [phone] Tenisha Mendieta PA-C Unavailable [phone] Julio Monk PA-C Unavailable Luis Armando Eller MD Unavailable [phone] Jayesh Pineda MD Unavailable Kelsi Tejada MD Unavailable Unavailable Pretty eL MD Unavailable Vesta Mcihael PA-C Unavailable [phone] [facility] Unavailable [phone] Encounter Details Date Type Department Care Team Description 04/25/2017 Hospital Medical Records [address] [place] [address] Jovanny Strange Social History Tobacco Use Types Packs/Day Years Used Date Smoking Tobacco: Never Smokeless Tobacco: Never Alcohol Use Standard Drinks/Week Comments No 0 (1 standard drink = 0.6 oz pur e alcohol) Education Answer Date Recorded What is the highest level of school you have completed or the highest degree you have received? 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, [employer]ICER, CHANDRAKANT) 06/14/2020 Sex Assigned at Date Recorded Female 08/03/2020 10:16 PM EDT Job Start Date Occupation Industry Not on file Not on file Not on file documented as of this encounter Plan of Treatment Not on file documented as of this encounter Visit Diagnoses Not on filedocumented in this encounter Care Teams Wholesaler Relationship Specialty Start Date End Date Teressa Solis, PCP - General Internal Medicine 12/18/13 09/15/20 Mina Pretty DO PCP - General Internal Medicine 09/16/20 Shweta Boucher MD PCP - General Internal Medicine 01/12/21 10/10/21 Ora Ronquillo MD [address] [place] [address] PCP - General Internal Medicine 10/11/21 Jl Mendez MD [address] [place] [address] Dr Montiel [address] [place] [address] Specialist Cardiovascular Disease 10/13/21 Jannette Boudreaux MD [address] [address] Surgeon Neurosurgery 04/07/22 Tenisha Mendieta PA-C [address] [address] Specialist Neurosurgery 04/07/22 Julio Monk PA-C 175 [facility] [address] [place] [address] Specialist Neurosurgery 04/07/22 Luis Armando Eller MD [address] [address] Specialist ORTHOPEDIC SURGERY 10/01/23 Jayesh Pineda MD [address] [place] [address] Specialist Endocrinology 10/01/23 Kelsi Tejada MD [address] [place] [address] Specialist Allergy & Immunology 10/01/23 Pretty Le MD 175 [facility] [address] [place] [address] Specialist Pulmonology 10/01/23 Vesta Michael PA-C 300 [facility] [address] [place] [address] Specialist Vascular Surgery 10/01/23 [facility] [address] [place] [address] Specialist Optometry 10/01/23 documented as of this encounter
--- OUTSIDE RECORDS SUMMARY | 2024-05-20 11:01 | XMS_ITS | Encounter Summary ---
Author Organization [facility] Address [address] [place] [address] Care Team Providers Care Drawing In Hand Name Role Phone Teressa Solis DO Primary Care Pro vider Unavailable Mina Pretty DO Primary Care Provider Ailyn Shweta Pretty MD Primary Care Provider Ora Diaz MD Primary Care Prov ider Jl Mendez MD Unavailable Jannette Boudreaux MD Unavailable [phone] Tenisha Mendieta PA-C Unavailable Julio Monk PA-C Unavailable [phone] Luis Armando Eller MD Unavailable [phone] Jayesh Pineda MD Unavailable Kelsi Tejada MD Unavailable Unavailable Pretty Le MD Unavailable Vesta Michael PA-C Unavailable [facility] Unavailable [phone] Encounter Details Date Type Department Care Team Description 03/03/2020 Agency Sales Representative Report Medical Records [address] [place] [address] Meg Mc Social History Tobacco Use Types [...] on filedocumented in this encounter Care Teams Drawing In Hand Relationship Specialty Start Date End Date Teressa Solis DO PCP - General Internal Medicine 12/18/13 09/15/20 Mina Pretty DO PCP - General Internal Medicine 09/16/20 Shweta Boucher MD PCP - General Internal Medicine 01/12/21 10/10/21 Ora Ronquillo MD [address] [place] [address] PCP - General Internal Medicine 10/11/21 Jl Mendez MD [address] [place] [address] Specialist Cardiovascular Disease 10/13/21 Jannette Boudreaux MD [address] [address] Surgeon Neurosurgery 04/07/22 Tenisha Mendieta PA-C [address] [address] Specialist Neurosurgery 04/07/22 Julio Monk PA-C [address] [address] Specialist Neurosurgery 04/07/22 Luis Armando Eller MD [address] [address] Specialist ORTHOPEDIC SURGERY 10/01/23 Jayesh Pineda MD [address] [place] [address] Specialist Endocrinology 10/01/23 Kelsi Tejada MD 305 [place] [address] Specialist Allergy & Immunology 10/01/23 Pretty Le MD 175 [facility] [address] [place] [address] Specialist Pulmonology 10/01/23 Vesta Michael PA-C 300 [facility] [address] [place] [address] Specialist Vascular Surgery 10/01/23 [facility] [address] [place] [address] Specialist Optometry 10/01/23 documented as of this encounter
--- OUTSIDE RECORDS SUMMARY | 2024-05-20 11:01 | XMS_ITS | Encounter Summary ---
Author Organization [facility] Address [address] [place] [address] Care Team Providers Care Plate Maker Name Role Phone Teressa Solis DO Primary Care Pro vider Unavailable Mina Pretty DO Primary Care Provider Shweta Cronin MD Primary Care Provider Ora Diaz MD Primary Care Prov ider Jl Mendez MD Unavailable Jannette Boudreaux MD Unavailable [phone] Tenisha Mendieta PA-C Unavailable Julio Monk PA-C Unavailable [phone] Luis Armando Eller MD Unavailable [phone] Jayesh Pineda MD Unavailable Kelsi Tejada MD Unavailable Unavailable Pretty Le MD Unavailable Vesta Michael PA-C Unavailable [facility] Unavailable [phone] Reason for Visit * Reason Onset Date Comments Mychart Rx Refill 11/14/2019 Encounter Details Date Type Department Care Team Description 11/14/2019 Refill Adult Medicine [address] [address] Teressa Solis DO Mychart Rx Refill Social [...] on filedocumented in this encounter Care Teams Plate Maker Relationship Specialty Start Date End Date Teressa Solis DO PCP - General Internal Medicine 12/18/13 09/15/20 Mina Pretty DO PCP - General Internal Medicine 09/16/20 1 Shweta Tellez MD PCP - General Internal Medicine 01/12/21 10/10/21 Ora Ronquillo MD [address] [place] [address] PCP - General Internal Medicine 10/11/21 Jl Mendez MD [address] [place] [address] [place] [address] Specialist Cardiovascular Disease 10/13/21 Jannette Boudreaux MD [address] [address] Surgeon Neurosurgery 04/07/22 Tenisha Mendieta PA-C 175 [address] [place] [address] Specialist Neurosurgery 04/07/22 Julio Monk PA-C 175 [facility] [address] [place] [address] Specialist Neurosurgery 04/07/22 Luis Armando Eller MD 175 [facility] [address] [place] [address] Specialist ORTHOPEDIC SURGERY 10/01/23 Jayesh Pineda MD 305 [place] [address] Specialist Endocrinology 10/01/23 Kelsi Tejada MD 305 [place] [address] Specialist Allergy & Immunology 10/01/23 Pretty Le MD 175 [facility] [address] [place] [phone] Specialist Pulmonology 10/01/23 Vesta Michael PA-C 300 [facility] [address] [place] [phone] Specialist Vascular Surgery 10/01/23 [facility] [address] [place] [address] Specialist Optometry 10/01/23 documented as of this encounter
== END 2024-05-20 09:42 | disposition home or self-care (01) ==
LOC: HO.US 09:41
PROVIDERS: PCP Internal Medicine; Visit Provider Surgery
DX: E66.01 Morbid (severe) obesity due to excess calories (principal); E03.9 Hypothyroidism, unspecified; E78.5 Hyperlipidemia, unspecified; K21.9 Gastro-esophageal reflux disease without esophagitis; G47.33 Obstructive sleep apnea (adult) (pediatric)
CPT/HCPCS: 76700; 76981

== ENCOUNTER → 2024-05-20 09:44 | Outpatient (BNV) | payer OTHER, SELFPAY | PROVIDERS: PCP Internal Medicine; Visit Provider Radiology Diagnostic Radiology | DX: D17.71 Benign lipomatous neoplasm of kidney (principal); K76.0 Fatty (change of) liver, not elsewhere classified; R16.0 Hepatomegaly, not elsewhere classified | CPT/HCPCS: 76700 ==

== ENCOUNTER → 2024-05-22 11:13 | Outpatient (REF) | payer OTHER, SELFPAY ==
--- NOTE | 2024-05-22 11:16 | CA_ITS ---
Transthoracic Echocardiogram Patient (Last, First, Middle): Ana Luisa House A Gender: Female Date of : 1960 Age: 63 Procedure Date: 05/22/2024 Procedure Type: Transthoracic Echocardiogram Location: OP Height: 160.02 cm Weight: 120.2 kg BSA: 2.18 m2 Heart Rate: bpm BP: 148 / 80 mmHg Line Service Technician: TO Referring MD: Ranyd Domínguez MD Symptoms: R94.31 - Abnormal electrocardiogram [ECG] [EKG] Study Quality: Fair, contrast ECG Rhythm: Sinus Conclusions: - The left ventricular systolic function is normal. The calculated ejection fraction is 63% by biplane method. - There is mild mitral annular calcification. - No obvious valvular pathology seen on this study. Findings Procedure Information Contrast agent, definity, is being given per protocol without apparent complications. Left Ventricle Normal left ventricular cavity size. There is normal left ventricular wall thickness. The left ventricular systolic function is normal. The calculated ejection fraction is 63% by biplane method. There is no evidence of regional wall motion abnormalities. Diastolic function is normal for age. Right Ventricle Normal right ventricular cavity size and systolic function. Atria Both atria are normal in size. Aortic Valve There is a normal trileaflet aortic valve. There is no aortic valve stenosis. There is no aortic valve regurgitation. Mitral Valve There is mild mitral annular calcification. There is trace mitral valve regurgitation. There is no mitral valve stenosis. Pulmonic Valve The pulmonic valve is likely normal. Tricuspid Valve There is no tricuspid valve regurgitation. Tricuspid regurgitation envelope is inadequate for calculation of right ventricular systolic pressure. Great Vessels The asc aorta is normal in size. Venous The inferior vena cava is normal in size and collapses greater than 50% with inspiration. Pericardium/Pleural There is no evidence of pericardial effusion. Prior Study Comparison No significant change compared to prior study dated: 06/23/2020. Recommendations, Care & Conclusions No obvious valvular pathology seen on this study. Measurements 2D Linear Measurements IVSd: 0.99 0.6-0.9/0.6-1.0 cm LVIDd: 4.99 3.9-5.3/4.2-5.9 cm LVIDd Index: 2.29 2.4-3.2/2.2-3.1 cm/m2 LVIDs: 2.68 2.0-3.6 cm LVPWd: 0.98 0.7-1.1 cm LA Diam: 3.30 2.7-3.8/3.0-4.0 cm LAIDs Index: 1.51 1.5-2.3 cm/m2 LV Mass: 221.27 67-162/88-224 g LV Mass Index: 101.50 43-95/49-115 g/m2 LVOT Diam: 2.00 3.0+(-)1.3 cm 2D Systolic Function EF 4C: 66.70 >55% EF 2C: 60.30 >55% EF BiP: 63.10 >55% Mitral Valve MV VTI: 0.42 MV Pk Junior: 1.43 MV Mn Junior: 0.81 MV Pk Grad: 8.00 MV Mn Grad: 3.00 MV Pk E: 0.79 MV PK A: 1.09 MV Decel Time: 245.00 E/A: 0.70 E'Lateral: 6.20 E'Medial: 5.11 E/E' Med: 15.50 E/E' Lat: 12.80 PHT: 72.00 MVA PHT: 3.06 MVA Continuity: 2.03 Decel [place]: 3.24 Aortic Valve AoV Pk Junior: 1.76 AoV Mn Junior: 1.12 AoV VTI: 0.39 AoV Pk Grad: 12.00 Aov Mn Grad: 6.00 SYD Cont.VTI: 2.21 LVOT LVOT Pk Junior: 1.09 LVOT Mn Junior: 0.76 LVOT VTI: 0.27 LVOT Pk Grad: 5.00 LVOT Mn Grad: 3.00 LVOT Diam: 2.00 LVOT Area: 3.14 Diastolic Function MV Pk E: 0.79 MV Pk A: 1.09 E/A: 0.70 E'Medial: 5.11 E/E' Med: 15.50 E' Laterial: 6.20 E/E' Lat: 12.80 Right Ventricle TAPSE (mm): 24.90 TVS' Junior: 11.00 Tricuspid Valve RA Press: 3.00 Great Vessels Aorta Sinus of Valsalva: 2.84 2.0-3.5 cm Ao Asc: 3.40 2.1-3.4 cm Updated in Other Vendor System with Status of Final Tu Pickens MD electronically signed on 05/23/2024 4:39:38 PM with status of Final
--- OUTSIDE RECORDS SUMMARY | 2024-05-22 14:25 | XMS_ITS | Clinical Summary ---
Author Organization [facility] Address [address] [place] [address] Care Team Providers Care Post Closing Specialist Name Role Phone Ora Sweeney MD [...] route 2 times daily. Active blood-glucose meter [facility] Use to test blood sugars once daily [...] Future Anxiety and depression 06/14/2020 Overview (12/16/2023): [facility] psychiatry Asthma, moderate persistent 05/10/2020 Overview [...] requirements Supply letter has been sent to [facility] care Return to clinic in 1 year [...] 4:30 PM EST Office Visit Adult Medicine [address] [phone] Chuck Felix MD Sore throat (Primary Dx); Loss of voice 05/05/2024 Telephone Adult Medicine [address] [phone] Ora Naylor MD Sore Throat (/) 04/25/2024 9:53 AM EST - 04/25/2024 11:59 PM EST Hospital Encounter XRAY [address] [phone] SOB (shortness of breath) Discharge Disposition: Home or Self Care 04/25/2024 9:00 AM EST Office Visit Adult Medicine [address] [phone] Zeina Reece MD SOB (shortness of breath) (Primary Dx); Asthma-chronic obstructive pulmonary disease overlap syndrome (CMS/HCC); Primary hypertension; Sore throat; URI, acute; Bacterial conjunctivitis of both eyes 04/24/2024 Telephone Adult Medicine [address] [phone] Ora Naylor MD Flu Symptoms 04/11/2024 9:45 AM EST Office Visit Endocrinology [address] [phone] Jayesh Pineda MD Type 2 diabetes mellitus with other specified complication, without long-term current use of insulin (CMS/HCC) (Primary Dx); Hyperparathyroidism (CMS/HCC); Hypothyroidism, unspecified type 04/03/2024 9:45 AM EST Office Visit Orthopedic Surgery [facility] 250 175 [facility] 250 [place] [address] Duke Dunn DPM Controlled type 2 diabetes with neuropathy (CMS/HCC) (Primary Dx); PVD (peripheral vascular disease) (CMS/HCC); Pain in both feet; Difficulty walking; Dermatophytosis, nail 03/27/2024 10:00 AM EST Treatment [facility] [address] [address] Chema Martins, OT Rotator cuff tear arthropathy of left shoulder (Primary Dx) 03/26/2024 9:45 AM EST Office Visit Orthopedic Surgery - [place] 160 175 [facility] 160 [place] [phone] Luis Armando Eller MD S/P left rotator cuff repair (Primary Dx) 03/25/2024 9:00 AM EST Treatment [facility] [address] [address] Lisa Jones, DEL RIO 03/20/2024 11:00 AM EST Treatment [facility] [address] [phone] Chema Martins, OT Rotator cuff tear arthropathy of left shoulder (Primary Dx) 03/18/2024 1:00 PM EST Treatment [facility] [address] [phone] Lisa Jones, DEL RIO 03/13/2024 9:30 AM EST Treatment [facility] [address] [phone] Morris Melo COTA/Raul Rotator cuff tear arthropathy of left shoulder (Primary Dx) 03/11/2024 9:30 AM EST Treatment [facility] [address] [phone] Lisa Jones COTA Rotator cuff tear arthropathy of left shoulder (Primary Dx) 03/06/2024 9:30 AM EST Treatment [facility] [address] [phone] Lisa Jones COTA Rotator cuff tear arthropathy of left shoulder (Primary Dx); S/P left rotator cuff repair 03/04/2024 8:45 AM EST Treatment [facility] [address] [phone] Lisa Jones, DEL RIO 02/28/2024 9:00 AM EST Treatment [facility] [address] [address] Chema Martins OT Rotator cuff tear arthropathy of left shoulder (Primary Dx) 02/27/2024 9:30 AM EST Office Visit Orthopedic Surgery - [place] 160 175 [facility] [address] [place] [address] Genny Arreguin PA Post-operative state (Primary Dx); S/P left rotator cuff repair from Last 3 Months Immunizations Name Administration [...] Date Site/Laterality Comments KNEE ARTHROSCOPY Right PROCEDURE: OH ARTHROSCOPY KNEE DIAGNOSTIC W/WO SYNOVIAL BX SPX WISDOM TOOTH EXTRACTION PROCEDURE: HISTORICAL WISDOM TEETH EXTRACTION TONSILLECTOMY PROCEDURE: HISTORICAL TONSILLECTOMY; COMMENT: and adenoids SECTION PROCEDURE: HISTORICAL DELIVERY OTHER SURGICAL HISTORY PROCEDURE: OH BIOPSY THYROID PERCUTANEOUS CORE NEEDLE COLONOSCOPY 12/10/2012 PROCEDURE: HISTORICAL COLONOSCOPY; COMMENT: normal; repeat in 3 yrs. sig. hyperplastic polyp OTHER SURGICAL HISTORY PROCEDURE: CYSTOSCOPY/SURG, URETHRA/BLAD NECK; COMMENT: sling procedure for stress incontinence OTHER SURGICAL HISTORY 08/25/2015 Right PROCEDURE: OH EXCISION NAIL MATRIX PERMANENT REMOVAL; COMMENT: right hallux Dr. Rangel COLONOSCOPY 01/31/2016 PROCEDURE: HISTORICAL COLONOSCOPY; COMMENT: 3 small polyps removed- dist.asc =tubular adenoma x 1; other nl tissue. COLONOSCOPY 09/29/2019 PROCEDURE: HISTORICAL COLONOSCOPY; COMMENT: 5 mm ascending colon polyp: Tubular adenoma. UPPER GASTROINTESTINAL ENDOSCOPY 09/29/2019 PROCEDURE: OH UPPER GI ENDOSCOPY PERFORMED; COMMENT: Visually normal on PPI treatment. ESOPHAGOGASTRODUODENOSCOPY 09/22/2021 PROCEDURE: OH EGD TRANSORAL BIOPSY SINGLE/MULTIPLE; COMMENT: EGD including biopsy normal OTHER SURGICAL HISTORY PROCEDURE: HISTORY OTHER; COMMENT: Maxillofacial surgery EXCISION BENIGN SKIN LESION TRUNK / ARM / LEG PROCEDURE: OH EXCISION TUMOR SOFT TISSUE BACK/FLANK SUBQ <3CM; [...] (BMI) of 40.0 to 44.9 in adult ([facility]) Diabetes mellitus type 2, co ntrolled, without complications ([facility]) 02/16/2021 DX:Diabetes mellitus t ype 2, controlled, without complications ([facility]) Mild concentric left ventric ular hypertrophy 08/23/2021 DX:Mild concentric left vent ricular hypertrophy; COMMENT: Seen on echo study from 08/2021 Fatty liver DX:Fatty liver Anxiety state DX:Anxiety state Asthma DX:Asthma Depressive disorder DX:Depressiv e disorder Asthma, moderate persistent 05/10/2020 DX:A sthma, moderate persistent Pain and swelling of left up per extremity 11/21/2021 DX:Pain and swelling of left upper extremity Shingles DX:Shingles Diabetes mellitus ([facility]) DX:D iabetes mellitus ([facility]) HLD (hyperlipidemia) 11/21/2021 DX:HLD (hyp erlipidemia) VIRGIE on CPAP DX:VIRGIE on CPAP Depression DX:Depression Overactive bladder DX:Overactive bladder Obesity with alveolar hypove ntilation (CMS/HCC) DX:Obesity with alveolar hypoventilation (HCC) Morbid obesity with BMI of 4 0.0-44.9, adult ([facility]) DX:Morbid obesity with BMI o f 40.0-44.9, adult ([facility]) Asthma-chronic obstructive p ulmonary disease overlap syndrome ([facility]) 01/30/2022 DX:Asthma-chronic o bstructive pulmonary disease overlap syndrome (HCC) Family History Medical History Relation Name Comments Breast cancer Aunt 1 maternal x 1 Ovarian cancer Aunt 2 maternal x 6 6 maternal au nts also with ov, uterine ca Glaucoma Brother x 2 Coronary artery disease Father PR a ge 68, HTN, Diabetes, cataract, glaucoma [...] care for your loved ones. For example, director maternal child or elderly care for an older [...] Care Team (Late st Contact Info) Description 06/04/2024 11:45 AM EDT Office Visit Orthopedic Surgery [facility] 160 175 [facility] 160 [place] [address] Luis Armando Eller MD 175 [facility] 160 [place] [address] 06/05/2024 9:45 AM EDT Office Visit Orthopedic Surgery [facility] 250 175 [facility] 250 [place] [phone] Duke Dunn DPM 175 [facility] 250 [place] [address] 06/06/2024 2:30 PM EDT Office Visit Obstetrics and Gynecology [address] [phone] Stacie Martinez, CN 444 [place] [address] 06/09/2024 1:00 PM EDT Consult Bariatric Surgery [facility] [address] [phone] Rose Park MD [address] [address] 06/30/2024 10:30 AM EDT Office Visit Orthopedic Surgery [facility] [address] [phone] Luis Armando Eller MD [address] [address] 07/02/2024 9:30 AM EDT Office Visit Orthopedic Surgery [facility] 250 175 [facility] 250 [place] [phone] Lorie Moore NP [address] [address] 07/09/2024 9:30 AM EDT Office Visit Endocrinology [facility] [address] [place] [phone] Jayesh Pineda MD 5 [place] [address] 09/22/2024 8:45 AM EDT Office Visit Pulmonolgy - [place] [address] [phone] Pretty Le MD 175 [facility] 200 [place] [address] Health Maintenance Due Date Last Done Comments [...] 39 AM EST Sore throat URI, acute [id number], RSV, FLU A AND B QUALITATIVE RT-PCR, [...] of2 resultswithin the time period is included. Pathologist [facility] Rapid Strep A Screen POC Negative Negative Swab Structure of anterior portion of neck / Unknown 05/05/2024 4:59 PM EST Chuck Felix MD POINT OF CARE TEST ENTER/EDIT OR DERABLES Edited Result - Final * [id number], RSV, Influenza A and B qualitative RT-PCR (04/25/2024 10:34 AM EST) Pathologist [facility] SARS COV-2 Not Detected Not Detected LAB MOLECULAR DIAGNOSTICS METHOD 04/25/2024 4:[address] [facility] Influenza A PCR Not Detected Not Detected LAB MOLECULAR DIAGNOSTICS METHOD 04/25/2024 4:[address] [facility] Influenza B PCR Not Detected Not Detected LAB MOLECULAR DIAGNOSTICS METHOD 04/25/2024 4:[address] [facility] RSV PCR Not Detected Not Detected LAB MOLECULAR DIAGNOSTICS METHOD 04/25/2024 4:[address] [facility] Swab Nasopharyngeal structure / Unknown Non-blood Collection / Unknown 04/25/2024 10:34 AM EST 04/25/2024 10:34 AM EST us Zeina Reece MD LAB MICROBIOLOGY - GENERAL ORDERABLES Final Result [facility] [address] [place] [address], [place] [phone] * XR Chest 2 Views (04/25/2024 10:10 AM EST) Anatomical Region Laterality Modality Body Radiographic Ivy ging 04/25/2024 1:15 PM EST Impressions 04/25/2024 1:15 PM EST No acute cardiopulmonary process. -------- FINAL REPORT -------- Dictated By: Malathi Pak Dictated Date: 04/25/2024 13:15 ET Assigned Physician: Malathi Pak Reviewed and Electronically Signed By: Malathi Pak Signed Date: 04/25/2024 13:15 ET Workstation ID: [id number] Transcribed By: Self Edit Transcribed Date: 04/25/2024 [...] Signed Date: 04/25/2024 13:15 ET Workstation ID: [id number] Transcribed By: Self Edit Transcribed Date: 04/25/2024 13:15 ET Result [facility] Zeina Reece MD IMG XR PROCEDURES Final Res ult * MR Brain wo Contrast (02/29/2024 2:48 PM EST) Anatomical Region Laterality Modality Head and Neck Magnetic Resonan ce Result [facility] IMG MRI PROCEDURES Final Result * (ABNORMAL) Hemoglobin A1c (11/26/2023) [facility] Hemoglobin A1C 7.4(A) <=6.5 % Blood Venous blood specimen / Unknown Result [facility] LAB BLOOD ORDERABLES Soni l Result * Annual BMP Blood Test (11/23/2023) [facility] Annual BMP Blood Test Abstracted Result [facility] HEALTH MAINTENANCE Final Result * Urine Albumin Creatinine Ratio (10/04/2023) [facility] Urine Albumin Creatinine Ratio Abstracted Result [facility] HEALTH MAINTENANCE Final Result * (ABNORMAL) Lipid panel (10/04/2023) [facility] LDL/HDL Ratio 4 0 - 4 Triglycerides 173(A) 0 - 150 mg/dL Cholesterol 146 0 - 200 mg/dL HDL 39(A) >=40 mg/dL LDL Cholesterol 73 0 - 100 mg/dL Blood Venous blood specimen / Unknown Result [facility] LAB BLOOD ORDERABLES Soni l Result * Falls Risk Assessment (10/01/2023) Falls Risk Assessment Abstracted Historical Provider MD HEALTH MAINTENANCE Final Result * Depression Screening (10/01/2023) Depression Screening Abstracted Historical Provider MD HEALTH MAINTENANCE Final Result * Diabetes Foot Exam (10/01/2023) Diabetes: Annual Foot Exam Abstracted Historical Provider [facility] Final Result * SCREENING MAMMOGRAPHY BI 2-VIEW [...] * Cervical Cancer Screening: HPV (04/11/2021) Pathologist [facility] Cervical Cancer Screening: HPV No interpreta [...] classified as having normal bone density. [facility] Department of Internal Medicine recommends using [...] beclassified as having normal bone density. [facility] Department of Internal Medicine recommendsusing National [...] FRAX. Jayesh Pineda MD IMG DXA PROCEDURES Final Result * Colonoscopy (09/29/2019) Pathologist [facility] Colonoscopy No interpreta tion,abstr acted Anatomical Region Laterality Modality Other Historical Provider HEALTH MAINTENANCE Final Result * Hepatitis C Screening (09/22/2014) [facility] Hepatitis C Screening Abstracted Historical Provider HEALTH MAINTENANCE Final Result from Last 3 Months or Most Recently Relevant to Health Maintenance Insurance [employer] MEDICARE ADVANTAGE Care Teams Post Closing Specialist Relationship Specialty Start Date End Date Ora Sweeney MD [address] [place] [address] PCP - General Internal Medicine 01/09/24
--- OUTSIDE RECORDS SUMMARY | 2024-05-22 14:25 | XMS_ITS | Data Portability ---
Author Organization [facility], [address] Address [address] [place] [address] Assessment No assessment recorded. Plan of Treatment Reminders Order Date Submit Date Provider Last Modified By Organization Details Last Modified Time Details Appointments None recorded. Lab rapid flu (A+B) 2021 022 marva zhang13 [address] [address], [address] [place], [address], 14:02:10 rapid SARS CoV 2 Ag, QL IA, respiratory specimen 2021 022 [place] [address] [address] [address], [address] [place], [address], 14:02:10 Referral None recorded. Procedures None recorded. Surgeries None recorded. Imaging None recorded. Medication Orders Tamiflu 75 mg capsule 2021 [facility] #[id number], [phone] [place], [address], 03:31:38 promethazin e-DM 6.25 mg-15 mg/5 mL oral syrup 2021 022 [facility] #[id number], [phone] [place], [address], 14:02:13 Patient TargetsNo targets recorded. Patient Instructions Encounter Date Encounter Id Patient Instructions Last Modified By Organization Details Last Modified Time 02/20/2022 [id number] You should follow-up with your PCP in [...] y speci men Unknown Analyte Not Available [id number] [place] [address] [address] [place], [address], 02/20/2022 13:38:01 02/21/20 22 02/20/2022 rapid SARS CoV 2 Ag, QL IA, respi rator y speci men Unknown Analyte negati ve Not Available [address]ui[address] [place], [address], 02/20/2022 13:38:01 02/21/20 22 02/20/2022 rapid flu (A+B) Unknown Analyte negati ve Not Available sprin [address]f [address] [place], [address], 02/20/2022 13:24:32 02/21/20 22 02/20/2022 rapid flu (A+B) Unknown Analyte Normal = Negati ve Not Available sprin [address] [place], [address], 02/20/2022 13:24:32 02/21/20 22 02/20/2022 rapid flu (A+B) Unknown Analyte negati ve Not Available [address] [place], [address], 02/20/2022 13:24:32 02/21/20 22 02/20/2022 rapid flu (A+B) Unknown Analyte Normal = Negati ve Not Available [address] [place], [address], 02/20/2022 13:24:32 Result Notes None recorded. Problems Name Problem SNOMED Code Status Onset Date Resolution Date Notes Provider Name and Address Organization Details Recorded Time Hypertensive disorder 58945551 Active 2021 Layne Trevino null, PA - [facility] 2 13:21:27 Hyperlipidemia 14145107 Active 2021 Layne Trevino null, PA - [facility] 13:21:42 Thyroiditis 41030973 Active 2021 Laynetristen Trevino null, PA - [facility] 13:21:59 Environmental allergy 209448667 Active 2021 Layne Trevino null, PA - [facility] 13:22:12 Migraine 88162904 Active 2021 Layne Trevino null, PA - [facility] 13:22:21 Diabetes mellitus 85953483 Active 2021 Layne Trevino null, PA - [facility] 13:22:34 Asthma 642234184 Active 2021 Layne Trevino null, PA - [...] Name and Address Organization Details Recorded Time 14337 Product containin g penicilli n (product) medicatio n swelling Not available high 02/20/2022 07561 8001 SNOMED Layne Trevino null, PA - [facility] 2 13:13:07 26761 Duricef medicatio n swelling Not available Not available 02/20/2022 16231 6 RxNorm Layne Trevino null, PA - [facility] 2 13:13:25 86529 Medrol medicatio n swelling Not available Not available 02/20/202210703 2 RxNorm Layne Trevino null, PA - [facility] 2 13:13:43 81099 oxycodone medicatio n Not available Not available Not available 02/20/2022 7804 RxNorm Layne Trevino null, PA - [facility] 2 13:13:52 50314 chocolate flavor food,medi cation Not available Not available Not available 02/20/2022 86406 UNDarren Trevino null, PA - [facility] 2 13:14:02 66998 almond allergeni c extract food Not available Not available Not available 02/20/2022 95482 7 RxNorm Layne Trevino null, PA - [facility] 2 13:14:09 00481 Canis lupus familiari s extract environme nt Not available Not available Not available 02/20/2022 56081 4 RxNorm Layne Trevino null, PA - [facility] 13:14:18 58561 cat dander environme nt Not available Not available Not available 02/20/2022 20837 UNDarren Trevino null, PA - [facility] 13:14:22 00684 rabbit dander environme nt Not available Not available Not available 02/20/2022 49699 UNDarren Trevino null, PA - [facility] 2 13:14:29 79486 latex environme nt,medica tion Not available Not available Not available 02/20/2022 89218 91 RxNorm Layne Trevino null, PA - [facility] 2 13:14:36 82403 house dust mite environme nt Not available Not available Not available 02/20/2022 19623 UNK Layne Trevino null, PA - [facility] 2 13:14:44 78228 POLLEN EXTRACTS environme nt,medica tion Not available Not available Not available 02/20/2022 30670 6 RxNorm Layne Trevino null, PA - [facility] 2 13:14:56 40842 grass pollen environme nt,medica tion Not available Not available Not available 02/20/2022 40559 UNK Layne Trevino null, PA - [facility] 2 13:15:03 40263 ethinyl estradiol / levonorge strel medicatio n Not available Not available Not available 02/20/2022 54250 8 RxNorm Layne Trevino null, PA - [...] Updated DateTime 2 162.56 cm 44.6 kg/m2 344418. 02 g 100 % 100 % 85 /min 20 /min 98.8 [degF] 159 mm[Hg] 88 mm[Hg] [facility] 13:12:06 Social History Question Answer Notes LastModified by Organizat ion Details LastModified Time Tobacco Smoking Status Never Smoker [facility] 02/20/2022 13:23:07 What Is Your Level Of Alcohol Consumption? Occasional [email or web address] Information not available 02/20/2022 Have You Had Direct Contact, Or Contact During Intimacy, With Monkeypox Rash, Scabs, Or Body Fluids From A Person With Monkeypox? No Information not available 02/20/2022 Do You Use Any Illicit Or Recreational Drugs? No [email or web address] Information not available 02/20/2022 Have You Recently [...] SNOMED-CT Code Diagnosis ICD10 Code Diagnosis Note [id number] [address] [address] [place] [address] 04/01/2019 17:17:25 04/01/2019 18:28:03 [id number] [place] [address] [facility] [address] [place] [address] 02/20/2022 12:02:53 02/20/2022 14:03:53 Generalized aches and pains 02718899 R52 Viral syndrome 416747905 B34.9 Health Concerns Section Related Observation LastModified by Organization Detai ls LastModified Time None Recorded Concern Status LastModified by Organization Details LastModified Time None Recorded Advance Directives Directive None Recorded Payers Encounter Date Sequence Insurance Name Policy Number Policy Saleh Covered Member ID Saleh Member ID Guarantor Name 04/01/2019 1 [facility] (MEDICAID REPLACEMENT - HMO) MAGDI Ana Luisa A House [id number] Ana Luisa A House 02/20/2022 1 [facility] (MEDICAID REPLACEMENT - HMO) [place] Ana Luisa A House [id number] Ana Luisa A House Notes Date Note [...] Evelina Xiao MD [address] [place], [address], [place] - [facility] 02/20/2022 20:29:48 OBGyn Episode No OBEpisode recorded.
--- OUTSIDE RECORDS SUMMARY | 2024-05-22 14:25 | XMS_ITS | Encounter Summary ---
Author Organization [facility] Address [address] [place] [address] Care Team Providers Care Station Superintendent Name Role Phone Ora Sweeney MD Primary Care Prov ider Reason for Visit * Reason Onset Date Comments Sore Throat 05/05/2024 Encounter Details Date Type Department Care Team ([facility] st Contact Info) Description 05/05/2024 Telephone Adult Medicine [address] [phone] Ora Sweeney MD [address] [place] [address] Sore Throat (/) Social History Tobacco Use [...] traveled recently to another state outside of [place], [place], [place], [place], [place], [place], [place]? no o If yes, did you quarantine [...] yes, gather 3rd republican insurance information Third Republican Information: not applicable PCP: Ora Couch MD Payor: [employer] MEDICARE ADVANTAGE / Plan: [facility] CARE OPTIONS / Product Type: *No Product type* / documented in this encounter Plan of Treatment Upcoming Encounters Date Type Department Care Team (Late st Contact Info) Description 06/04/2024 11:45 AM EDT Office Visit Orthopedic Surgery [facility] 160 175 [facility] [address] [place] [phone] Luis Armando Eller MD 175 [facility] [address] [place] [address] 06/05/2024 9:45 AM EDT Office Visit Orthopedic Surgery - [place] [address] [phone] Duke Dunn, DPM [address] [address] 06/06/2024 2:30 PM EDT Office Visit Obstetrics and Gynecology - [address] [phone] Stacie Martinez, CN [address] [place] [address] 06/09/2024 1:00 PM EDT Consult Bariatric Surgery [address] [phone] Rose Park MD [address] [address] 06/30/2024 10:30 AM EDT Office Visit Orthopedic Surgery [facility] [address] [phone] Luis Armando Eller MD [address] [address] 07/02/2024 9:30 AM EDT Office Visit Orthopedic Surgery [facility] [address] [phone] Lorie Moore NP [address] [address] 07/09/2024 9:30 AM EDT Office Visit Endocrinology - [address] [phone] Jayesh Pineda MD [address] [place] [address] 09/22/2024 8:45 AM EDT Office Visit Pulmonolgy - [place] 175 [facility] [address] [place] [address] Pretty Le MD 175 [facility] [address] [place] [address] documented as of this encounter Visit Diagnoses Not on filedocumented in this encounter Care Teams Station Superintendent Relationship Specialty Start Date End Date Ora Sweeney MD [address] [place] [address] PCP - General Internal Medicine 01/09/24 documented as of this encounter
--- OUTSIDE RECORDS SUMMARY | 2024-05-22 14:25 | XMS_ITS | Encounter Summary ---
Author Organization [facility] Address [address] [place] [address] Care Team Providers Care Meatcutter Name Role Phone Ora Sweeney MD Primary Care Prov ider Reason for Referral * Consultation (Routine) - Authorized Specialty Diagnoses / Procedures Referred By Janie castillo Referred To Contact Otolaryngology Diagnoses Sore throat Loss of voice Chuck Felix MD [address] [place] [address] Phone: tel: fax: [facility] [address] [facility] [address] [place] [address] Phone: tel: fax: Referral ID Status Reason Start Date Expiration Date Visits Requested Visits Authorized [id number] Authorized Specialty Services Required 05/05/2024 05/05/2025 1 1 Reason for Visit * Reason Comments Sore Throat Sore throat for 1 da y Encounter Details Date Type Department Care Team (Late st Contact Info) Description 05/05/2024 4:30 PM EST Office Visit Adult Medicine [address] [phone] Chuck Felix MD [address] [place] [phone] Sore throat (Primary Dx); Loss of voice [...] hypertrophy 08/23/2021 Pulmonary eosinophilia (CMS/HCC) 07/14/2021 Hyperparathyroidism ([facility]) 03/09/2021 Diabetes mellitus type 2, controlled, without complications ([facility]) 02/16/2021 Anxiety and depression 06/14/2020 Asthma, moderate [...] cancer Mother 31.00 Coronary artery disease Father [place] age 68, HTN, Diabetes, cataract, glaucoma Ovarian [...] tablet Take 1 tablet by mouth daily. cktphxxtmda-pcxllsowzfql-hrcksasdvp (Trelegy Ellipta) 100-62.5-25 mcg inhaler Inhale 1 Puff into the lungs daily for 363 days. FREESTYLE LANCETS [facility] Use to test [...] UNABLE TO FIND Inhale into the lungs. [facility]-supplies only venlafaxine XR (EFFEXOR-XR) 37.5 mg 24 [...] We discussed maintaining adequate hydration, use of aozx-nfj-dajhvhx agents. I decided to ask consultation from [...] Visit Orthopedic Surgery [facility] [address] [phone] Luis Armando Eller MD [address] [address] 06/05/2024 9:45 AM EDT Office Visit Orthopedic Surgery [facility] 250 175 [facility] 250 [place] [phone] Duke Dunn DPM [address] [address] 06/06/2024 2:30 PM EDT Office Visit Obstetrics and Gynecology - [address] [phone] Stacie Martinez, [facility] 444 [place] [address] 06/09/2024 1:00 PM EDT Consult Bariatric Surgery - [place] [address] [phone] Rose Park MD [address] [address] 06/30/2024 10:30 AM EDT Office Visit Orthopedic Surgery [facility] [address] [phone] Luis Armando Eller MD 175 [facility] 160 [place] [address] 07/02/2024 9:30 AM EDT Office Visit Orthopedic Surgery - [place] 250 175 [facility] 250 [place] [phone] Lorie Moore NP [address] [address] 07/09/2024 9:30 AM EDT Office Visit Endocrinology [facility] [address] [place] [phone] Jayesh Pineda MD 725 [place] [address] 09/22/2024 8:45 AM EDT Office Visit Pulmonolgy - [place] 175 [facility] 200 [place] [phone] Pretty Le MD 175 [facility] 200 [place] [address] Scheduled Referrals Name Type Priority Associated Diagnoses [...] Aphonia documented in this encounter Care Teams Meatcutter Relationship Specialty Start Date End Date Ora Sweeney MD [address] [place] [address] PCP - General Internal Medicine 01/09/24 documented as of this encounter
--- OUTSIDE RECORDS SUMMARY | 2024-05-22 14:26 | XMS_ITS | Encounter Summary ---
Author Organization [facility] Address [address] [place] [address] Care Team Providers Care Soft Work Wrapper Examiner Name Role Phone Ora Sweeney MD Primary Care Prov ider Encounter Details Date Type Department Care Team (Late st Contact Info) Description 12/12/2023 4:42 PM EDT Hospital Encounter TH HISTORIC ENCOUNTERS EASTERN CONVERSION ONLY Luis Armando Eller MD [address] [place] 160 [place] [address] Social History Tobacco Use Types Packs/Day Years [...] Orthopedic Surgery [facility] 160 175 [facility] 160 [place] [phone] Luis Armando Eller MD 175 [facility] 160 [place] [address] 06/05/2024 9:45 AM EDT Office Visit Orthopedic [facility] 250 175 [facility] 250 [place] [phone] Duke Dunn DPM 175 [facility] 250 [place] [address] 06/06/2024 2:30 PM EDT Office Visit Obstetrics and Gynecology - [address] [phone] Stacie Martinez, [facility] 444 [place] [address] 06/09/2024 1:00 PM EDT Consult Bariatric Surgery [facility] [address] [phone] Rose Park MD [address] [address] 06/30/2024 10:30 AM EDT Office Visit Orthopedic Surgery [facility] 160 175 [facility] 160 [place] [phone] Luis Armando Eller MD [address] [address] 07/02/2024 9:30 AM EDT Office Visit Orthopedic Surgery [facility] 250 175 [facility] 250 [place] [phone] Lorie Moore NP [address] [address] 07/09/2024 9:30 AM EDT Office Visit Endocrinology - [place] [address] [place] [address] Jayesh Pineda MD 725 [place] [phone] 09/22/2024 8:45 AM EDT Office Visit Pulmonolgy - [place] [address] [phone] Pretty Le MD 175 [facility] 200 [place] [address] documented as of this encounter Visit Diagnoses Not on filedocumented in this encounter Additional Health Concerns Infection Onset Date Last Indicated Resolved Time Respiratory Rule-Out 04/25/2024 04/25/2024 025 4:13 PM EST COVID-19 Rule-Out 04/25/2024 04/25/2024 04/25/2024 4:13 PM EST documented as of this encounter Care Teams Soft Work Wrapper Examiner Relationship Specialty Start Date End Date Ora Sweeney MD [address] [place] [address] PCP - General 10/11/21 01/08/24 documented as of this encounter
--- OUTSIDE RECORDS SUMMARY | 2024-05-22 14:26 | XMS_ITS | Encounter Summary ---
Author Organization [facility] Address [address] [place] [address] Care Team Providers Care Certified Nutritionist Name Role Phone Ora Sweeney MD Primary Care Prov ider Reason for Visit * Reason Onset Date Comments Flu Symptoms 04/24/2024 Encounter Details Date Type Department Care Team (Late st Contact Info) Description 04/24/2024 Telephone Adult Medicine [address] [phone] Ora Sweeney MD [address] [place] [address] Flu Symptoms Social History Tobacco Use Types [...] loved ones. For example, early childhood education coordinator or elderly care for an older adult? [...] traveled recently to another state outside of [place], [place], [place], [place], [place], [place], [place]? no o If yes, did you quarantine [...] of accident/Injury: No If yes, gather 3rd constitution party insurance information Third Libertarian Information: not applicable PCP: Ora Couch MD Payor: [facility] MEDICARE ADVANTAGE / Plan: [facility] OPTIONS / Product Type: *No Product type* / documented in this encounter Plan of Treatment Upcoming Encounters Date Type Department Care Team (Late st Contact Info) Description 06/04/2024 11:45 AM EDT Office Visit Orthopedic Surgery - [place] 160 175 [facility] [address] [place] [address] Luis Armando Eller MD 175 [facility] [address] [facility] 160 [place] [address] 06/05/2024 9:45 AM EDT Office Visit Orthopedic Surgery - [place] [address] [phone] Duke Dunn DPM [address] [address] 06/06/2024 2:30 PM EDT Office Visit Obstetrics and Gynecology - [address] [phone] Stacie Martinez, [facility] 444 [place] [address] 06/09/2024 1:00 PM EDT Consult Bariatric Surgery [address] [phone] Rose Park MD [address] [address] 06/30/2024 10:30 AM EDT Office Visit Orthopedic Surgery [facility] [address] [phone] Luis Armando Eller MD [address] [address] 07/02/2024 9:30 AM EDT Office Visit Orthopedic Surgery [facility] [address] [phone] Lorie Moore NP [address] [address] 07/09/2024 9:30 AM EDT Office Visit Endocrinology - [address] [phone] Jayesh Pineda MD 5 [place] [address] 09/22/2024 8:45 AM EDT Office Visit Pulmonolgy - [place] 175 [facility] [address] [place] [phone] Pretty Le MD 175 [facility] 200 [place] [address] documented as of this encounter Visit Diagnoses Not on filedocumented in this encounter Care Teams Certified Nutritionist Relationship Specialty Start Date End Date Ora Sweeney MD [address] [place] [address] PCP - General Internal Medicine 01/09/24 documented as of this encounter
--- OUTSIDE RECORDS SUMMARY | 2024-05-22 14:26 | XMS_ITS | Encounter Summary ---
Author Organization [facility] Address [address] [place] [address] Care Team Providers Care Personnel Administrator Name Role Phone Ora Sweeney MD Primary Care Prov ider Reason for Visit * Reason Comments Flu Symptoms Conjunctivitis Encounter Details Date Type Department Care Team (Late st Contact Info) Description 04/25/2024 9:00 AM EST Office Visit Adult Medicine [facility] 444 [place] [address] Zeina Reece MD 444 [place] [address] SOB (shortness of breath) (Primary Dx); Asthma-chronic [...] your loved ones. For example, child care director or elderly care for an older [...] tablet Take 1 tablet by mouth daily. xgjfiuaipda-voefppgzdodn-yzkqwgpiho (Trelegy Ellipta) 100-62.5-25 mcg inhaler Inhale 1 Puff into the lungs daily for 363 days. FREESTYLE LANCETS [facility] Use to test blood [...] UNABLE TO FIND Inhale into the lungs. [facility]-supplies only venlafaxine XR (EFFEXOR-XR) 37.5 [...] polymyxin eyedrops Patient will follow-up with her regulatory compliance specialist #Hypertension, uncontrolled Plan: Patient will continue with her amlodipine 10 mg daily as well as clonidine 0.1 mg for hypertension as well as losartan 100 mg daily Patient will continue with lifestyle changes including diet and exercise #Hyperlipidemia Plan: Patient will continue with Lipitor 20 mg daily Patient will continue with lifestyle changes including diet and exercise Orders Placed This Encounter Procedures [id number], RSV, Influenza A and B qualitative RT-PCR XR Chest 2 Views POC rapid strep A manually resulted ADDITIONAL ORDERS: None Zeina Reece MD on 04/25/2024 at 1:14 PM EST documented in this encounter Plan of Treatment Upcoming Encounters Date Type Department Care Team (Late st Contact Info) Description 06/04/2024 11:45 AM EDT Office Visit Orthopedic Surgery [facility] 160 175 [facility] 160 [place] [phone] Luis Armando Eller MD [address] [address] 06/05/2024 9:45 AM EDT Office Visit Orthopedic Surgery [facility] 250 175 [facility] 250 [place] [phone] Duke Dunn DPM [address] [address] 06/06/2024 2:30 PM EDT Office Visit Obstetrics and Gynecology [address] [phone] Stacie Martinez, [address] [address] 06/09/2024 1:00 PM EDT Consult Bariatric Surgery [facility] 175 [facility] 120 [place] [phone] Rose Park MD 175 [facility] 120 [place] [address] 06/30/2024 10:30 AM EDT Office Visit Orthopedic Surgery [facility] 160 175 [facility] 160 [place] [phone] Luis Armando Eller MD 175 [facility] 160 [place] [address] 07/02/2024 9:30 AM EDT Office Visit Orthopedic Surgery [facility] 250 175 [facility] 250 [place] [phone] Lorie Moore NP [address] [address] 07/09/2024 9:30 AM EDT Office Visit Endocrinology [facility] [address] [place] [phone] Jayesh Pineda MD 725 [place] [address] 09/22/2024 8:45 AM EDT Office Visit Pulmonolgy - [place] [address] [phone] Pretty Le MD 175 [facility] 200 [place] [address] documented as of this encounter Procedures Procedure Name Priority Date/Time Associated Diagnosis Comments POC RAPID STREP A Routine 04/25/2024 10: 39 AM EST Sore throat URI, acute [id number], RSV, FLU A AND B QUALITATIVE RT-PCR, LOCAL REFERENCE LAB Routine 04/25/2024 10:34 AM EST URI, acute documented in this encounter Results * POC rapid strep A manually resulted (04/25/2024 10:39 AM EST) Rapid Strep A Screen POC Negative Negative Internal Control Pass Yes Yes Swab Structure of anterior portion of neck / Unknown 04/25/2024 10:39 AM EST Zeina Reece MD POINT OF CARE TEST ENTER/ED IT ORDERABLES Final Result * [id number], RSV, Influenza A and B qualitative RT-PCR (04/25/2024 10:34 AM EST) SARS COV-2 Not Detected Not Detected LAB MOLECULAR DIAGNOSTICS METHOD 04/25/2024 4:13 PM EST [facility] Influenza A PCR Not Detected Not Detected LAB MOLECULAR DIAGNOSTICS METHOD 04/25/2024 4:13 PM EST [facility] Influenza B PCR Not Detected Not Detected LAB MOLECULAR DIAGNOSTICS METHOD 04/25/2024 4:13 PM EST [facility] RSV PCR Not Detected Not Detected LAB MOLECULAR DIAGNOSTICS METHOD 04/25/2024 4:13 PM EST [facility] Swab Nasopharyngeal structure / Unknown Non-blood Collection / Unknown 04/25/2024 10:34 AM EST 04/25/2024 10:34 AM EST Zeina Reece MD LAB MICROBIOLOGY - GENERAL ORDERABLES Final Result [facility] [address] [place] [address], [place] [phone] * XR Chest 2 Views (04/25/2024 10:10 AM EST) Anatomical Region Laterality Modality Body Radiographic Ivy ging 04/25/2024 1:15 PM EST Impressions 04/25/2024 1:15 PM EST No acute cardiopulmonary process. -------- FINAL REPORT -------- Dictated By: Malathi Pak Dictated Date: 04/25/2024 13:15 ET Assigned Physician: Malathi Pak Reviewed and Electronically Signed By: Malathi Pak Signed Date: 04/25/2024 13:15 ET Workstation ID: [id number] Transcribed By: Self Edit Transcribed Date: 04/25/2024 [...] Signed Date: 04/25/2024 13:15 ET Workstation ID: [id number] Transcribed By: Self Edit Transcribed Date: 04/25/2024 [...] documented as of this encounter Care Teams Personnel Administrator Relationship Specialty Start Date End Date Ora Sweeney MD [address] [place] [address] PCP - General Internal Medicine 01/09/24 documented as of this encounter
--- OUTSIDE RECORDS SUMMARY | 2024-05-22 14:26 | XMS_ITS | Encounter Summary ---
Author Organization [facility] Address [address] [place] [address] Care Team Providers Care Coil Taper Name Role Phone Ora Sweeney MD Primary Care Prov ider Encounter Details Date Type Department Care Team (Latest Contact Info) Description 04/25/2024 9:53 AM EST - 04/25/2024 11:59 PM EST Hospital Encounter XRAY - [place] 444 [place] [address] SOB (shortness of breath) Discharge Disposition: Home [...] your loved ones. For example, child care provider or elderly care for an older [...] daily for 363 days. 09/19/2023 FREESTYLE LANCETS [facility] Use to test blood sugars once daily [...] TO FIND Inhale into the lungs. [facility]-supplies only venlafaxine XR (EFFEXOR-XR) 37.5 mg 24 [...] 11:45 AM EDT Office Visit Orthopedic Surgery [facility] 160 175 [facility] 160 [place] [phone] Luis Armando Eller MD 175 [facility] 160 [place] [address] 06/05/2024 9:45 AM EDT Office Visit Orthopedic Surgery [facility] 250 175 [facility] 250 [place] [phone] Duke Dunn, DPM [address] [address] 06/06/2024 2:30 PM EDT Office Visit Obstetrics and Gynecology - [place] [address] [place] [address] Stacie Martinez, CN 444 [place] [address] 06/09/2024 1:00 PM EDT Consult Bariatric Surgery - [address] [phone] Rose Park MD [address] [address] 06/30/2024 10:30 AM EDT Office Visit Orthopedic Surgery [facility] [address] [phone] Luis Armando Eller MD [address] [address] 07/02/2024 9:30 AM EDT Office Visit Orthopedic Surgery [facility] [address] [place] [phone] Lorie Moore NP [address] [address] 07/09/2024 9:30 AM EDT Office Visit Endocrinology - [place] [address] [place] [address] Jayesh Pineda MD 725 [place] [address] 09/22/2024 8:45 AM EDT Office Visit Pulmonolgy - [place] 175 [facility] 200 [place] [phone] Pretty Le MD [address] [address] documented as of this encounter Procedures Procedure [...] Signed Date: 04/25/2024 13:15 ET Workstation ID: [id number] Transcribed By: Self Edit Transcribed Date: 04/25/2024 [...] Signed Date: 04/25/2024 13:15 ET Workstation ID: [id number] Transcribed By: Self Edit Transcribed Date: 04/25/2024 [...] documented as of this encounter Care Teams Coil Taper Relationship Specialty Start Date End Date Ora Sweeney MD [address] [place] [address] PCP - General Internal Medicine 01/09/24 documented as of this encounter
== END ==
LOC: HO.CARD 11:13
PROVIDERS: PCP Internal Medicine; Visit Provider Surgery
DX: R94.31 Abnormal electrocardiogram [ECG] [EKG] (principal)
CPT/HCPCS: 93306; Q9957

== ENCOUNTER → 2024-05-22 11:16 | Outpatient (BNV) | payer OTHER, SELFPAY | PROVIDERS: PCP Internal Medicine; Visit Provider Internal Medicine | DX: I34.81 Nonrheumatic mitral (valve) annulus calcification (principal); R94.31 Abnormal electrocardiogram [ECG] [EKG] | CPT/HCPCS: 93306 ==

== ENCOUNTER 2024-07-30 09:10 | Outpatient (AMB) | payer OTHER, SELFPAY ==
--- NOTE | 2024-07-30 09:16 | A.OFFVIS_ITS ---
Vital Signs 07/30/24 09:17 Height 5 ft 3 in Weight 278 lb BMI 49.2 Pulse 69 Pulse Source Pulse Oximeter Pulse Oximetry (%) 97 Oxygen Delivery Method Room Air Intake Visit Reasons: follow up Amaurosis fugax R eye Intake Note: Patient presents follow up Migraine. WM-seen 04/11. Looking for results of MRI from 02/2024. Accompanied by: Daughter Allergies latex Allergy (Severe, Verified 07/30/24 09:27) Clark skin animal dander Allergy (Unknown, Verified 07/30/24 09:27) Unknown Chocolate Allergy (Unknown, Verified 07/30/24 09:27) Swelling methylprednisolone Allergy (Unknown, Verified 07/30/24:27) Swelling mold Allergy (Unknown, Verified 07/30/24:27) Unknown nut - unspecified Allergy (Unknown, Verified 07/30/24:27) Swelling oxycodone Allergy (Unknown, Verified 07/30/24 09:27) mood change cefadroxil [From Duricef] Allergy (Verified 07/30/24:) Unknown Penicillins Allergy (Verified 07/30/24:) Unknown HPI Comments Details: 63 year old female with h/o Glaucoma presents for f/u of Migraines. Daughter helps with history today VIRGIE compliance is not availabe, on my air gina on phone. She has vertigo while sleeping and continues to have fragmented sleep while laying flat and continues to have balance and gait difficulties. She fell last week, and injured her entire r. arm as she landed on forearm, she has CTS, numbness and tingling, with L. shoulder pain post surgical procedure. Vision is good, August 2024 she will f/u with opthamologist, in [facility] and [facility]. She is having 3-4 headaches per week, lasting 3-4 days, pain continues for entire day, starts with sharp, migrating frontal to occipital, pulling sensation, right side, with head under water sensation and she tilts the head forward then it dulls the sharp sensation. She takes 50mg of sumatriptan and then 2 hours later will take another 50mg of Sumatriptan and this lessens the intensity, but headache still continues. Her prodrome to migraine with aura: Bilaterally vision loss with or without the onset of headaches, photophobia/phonophobia, flashes of light, floaters, vertigo, nausea, vomiting, lasting seconds to minutes. Bilateral pain with chewing and drinking, grinds her teeth. using night gaurd now and improved. Cognitive decline, she continues to have processing and speech delays especially with word finding recall, forgets her keys, and needs instructions repeatedly for tasks, gets lost and loses her concentration easily. She is concerned due to family h/o dad dementia and mom with alzheimer's late onset at 86 year old. We discussed her insurance with [employer] and medicaid to r/o the APO E4 genetic mutation. Her A1c continues to be elevated, sees a music professor, post parathyroidectomy May 2024. L/R inferior lobes, ca. still elevated, on calcium supplements. H/o kidney stones, removed 3mm, with stent placement at [facility] July 09, 2024. Mood is better, she has a stubborn personality according to her DISHWASHING MACHINE REPAIRER and daughter. Her Daughter helps with ADLs, as she had Bowel and Urinary incontinence along with urgency. [facility] Medical History Kidney stone on left side Migraines Anxiety Depression Obstructive sleep apnea on CPAP Transient visual loss Cognitive and behavioral changes Loss of vision Paroxysmal hemicrania Chronic migraine with aura Constipation Insomnia DJD (degenerative joint disease) Hypothyroidism Stress incontinence GERD (gastroesophageal reflux disease) Hyperlipidemia Sleep apnea Asthma Hypertension Surgical History S/P removal of parathyroid gland History of delivery History of rotator cuff surgery Morbid obesity History of bladder suspension procedure Hx of hernia repair History of mandibular surgery Family History Mother Alzheimer disease Pulmonary emphysema Diabetes Asthma Father Diabetes Hypertension Pacemaker Sister Diabetes Sister Diabetes Brother Hypertension Brother No problems noted. Daughter Asthma Social History Alcohol intake: never Patient Tobacco Use Status: Never used Tobacco Advance Directives Date on File: 12/15/19 Physical Exam Vital Signs: Last Vital Signs Pulse 69 07/30/24 09:17 Pulse Ox 97 07/30/24 09:17 Oxygen Delivery Method Room Air 07/30/24 09:17 BMI result Body Mass Index 49.2 Const General: cooperative, comfortable and no acute distress Nutritional Appearance: obese (BMI 49.5) Orientation/consciousness: patient oriented x3 HEENT Head: Yes other Ears: other Throat: Yes other ([place] Score of 4) Eyes Pupils: Equal, round and reactive pupils present Neck Neck: Yes other (Limited ROM on EXT/Flexion, pain on Rotation to the R/L.) Resp Effort & Inspection: normal respiratory effort and able to speak in complete sentences Neuro General: patient oriented x3 Cranial nerves: Yes CN's II-XII intact bilaterally, Yes Facial sensation intact/muscles of mastication intact, Yes Equal, round and reactive pupils present, Yes Normal accommodation reflex present, Yes Bilaterally intact EOM present, Yes Nystagmus not present, Yes Normal facial strength present, Yes Midline tongue present, Yes Ability to bilaterally rotate head present (LIMITED ROM L/R and flexion and extension) and Yes Ability to bilaterally elevate shoulders present (Pain on shrug L. shoulder) Cognition (Neuro): normal cognition Gait exam (Neuro): Wide-based gait present Motor exam (neuro): Abnormal motor strength present (3/5) Deep tendon reflexes (DTR's): Right triceps reflex intensity grade: 2+, Left triceps reflex intensity grade: 2+, Rt Biceps (C5, C6): 2+, Left biceps reflex intensity grade: 2+, Right brachioradialis reflex intensity grade: 2+, Left brachioradialis reflex intensity grade: 2+, Right patellar reflex intensity grade: 2+, Left patellar reflex intensity grade: 2+, Right ankle reflex intensity grade: 2+ and Left ankle reflex intensity grade: 2+ Coordination: [id number] test normal Psych Appearance: grossly normal Speech and movement: Normal speech and movement present Affect: normal affect Attitude: cooperative Results Reviewed Results Reviewed: MRI reviewed with patient today. Labs: Reviewed Random Glucose elevated 124, A1c elevated 6.4, B1 <6 low, B12 low normal 355, BMI - Weight management - BmI 49.5 05/2024 VIRGIE- >4 8 hours 32 min AHI 1.1478/90 days, on my air gina. 02/2024 MRI MR/MR brain wo con w neuroquant IMPRESSION: 1. No acute intracranial abnormalities. 2. Mild underlying microangiopathy. 3. Baseline volumetric measurements do not currently support neurodegeneration. If clinically indicated, serial evaluation may be warranted to establish volume changes over time. Assessment & Plan Assessment & Plan (1) Hx of migraines: Code(s): Z86.69 - Personal history of other diseases of the nervous system and sense organs Category: Medical (2) Cervicalgia: Comment: Botox? Code(s): M54.2 - Cervicalgia Category: Medical (3) Cervicalgia: Comment: Botox? Code(s): M54.2 - Cervicalgia Category: Medical (4) VIRGIE (obstructive sleep apnea): Comment: compliance not available, rHC?, my air gina, did not work in clinic. Code(s): G47.33 - Obstructive sleep apnea (adult) (pediatric) Category: Medical (5) Excessive daytime sleepiness: Code(s): G47.19 - Other hypersomnia Category: Medical (6) Falls frequently: Code(s): R29.6 - Repeated falls Category: Medical (7) Gait difficulty: Code(s): R26.9 - Unspecified abnormalities of gait and mobility Category: Medical Plan PSG to evaluate sleep apnea, she has asthma, VIRGIE compliance not in chart, she says she uses it daily will f/u with [facility]. Migraines acute onset prevention therapy: Continue I will increase the 50mg Sumatriptan to 100mg sumatriptan succinate PO at onset of headache. take 2 tab of 50mg at onset of headache; if no relief may repeat 2 tab after at least 2 hrs; max = 4 tabs/24 hr. Mood stop venlafaxine as it is not effective for her mood irritability. Improve sleep and sleep hygiene and compliance emphasized. Labs: APO E/4 Gene testing Alzheimers r/o demntia as she has +f/h. and r/o excessive daytime fatigue. Weight management for good blood pressure control with diet and medical management. She is on Trulicity 1.5mg managed by Dr. Pineda, Mine Laborer Cervicalgia - Botox continue PT for neck pain on ROM limited L/R, and Flexion / Extension. PT for gait diffciulty with vertigo? due to T2DM?, blood pressure changes? Glaucoma? fallls frequently. 3 months f/u will do a MME/ MOCA to evaluate STM loss. Notes from [facility] requested today. Medications: Discontinued venlafaxine ER Discontinued Reason: Doctor's Order 37.5 mg PO BEDTIME 30 caps 2RF Coding Level of Care Code Est Pt Level 4 (09111) Complex EM visit Add On G2211 Diagnoses Hx of migraines Z86.69 Cervicalgia M54.2 VIRGIE (obstructive sleep apnea) G47.33 Excessive daytime sleepiness G47.19 Falls frequently R29.6 Gait difficulty R26.9
[2024-07-30 09:17] VITALS: PULSE 69; O2SAT 97; BMI 49.2
--- OUTSIDE RECORDS SUMMARY | 2024-07-30 10:26 | XMS_ITS | Encounter Summary ---
Author Organization [facility] Address [address] [place] [address] Care Team Providers Care Composite Bond Worker Name Role Phone Teressa Solis DO Primary Care Pro vider Unavailable Mina Pretty DO Primary Care Provider Ailyn Shweta Pretty MD Primary Care Provider Ora Diaz MD Primary Care Prov ider Jl Mendez MD Unavailable Jannette Boudreaux MD Unavailable [phone] Tenisha Mendieta PA-C Unavailable Julio Monk PA-C Unavailable [phone] Luis Armando Eller MD Unavailable [phone] Jayesh Pineda MD Unavailable Kelsi Tejada MD Unavailable Unavailable Pretty Le MD Unavailable Vesta Michael PA-C Unavailable [facility] Unavailable Encounter Details Date Type Department Care Team Description 01/11/2017 Investigative Reporter Report Medical Records [address] [place] [address] Ivan Muller Social History Tobacco Use Types [...] on filedocumented in this encounter Care Teams Composite Bond Worker Relationship Specialty Start Date End Date Teressa Solis DO PCP - General Internal Medicine 12/18/13 09/15/20 Mina Pretty DO PCP - General Internal Medicine 09/16/20 Shweta Boucher MD PCP - General Internal Medicine 01/12/21 10/10/21 Ora Ronquillo MD [address] [place] [address] PCP - General Internal Medicine 10/11/21 Jl Mendez MD [address] [place] [address] [place] [address] Specialist Cardiovascular Disease 10/13/21 Jannette Boudreaux MD [address] [address] Surgeon Neurosurgery 04/07/22 Tenisha Mendieta PA-C [address] [address] Specialist Neurosurgery 04/07/22 Julio Monk PA-C [address] [address] Specialist Neurosurgery 04/07/22 Luis Armando Eller MD [address] [address] Specialist ORTHOPEDIC SURGERY 10/01/23 Jayesh Pineda MD [address] [place] [address] Specialist Endocrinology 10/01/23 Kelsi Tejada MD [address] [place] [address] Specialist Allergy & Immunology 10/01/23 Pretty Le MD 175 [facility] [address] [place] [address] Specialist Pulmonology 10/01/23 Vesta Michael PA-C [address] [facility] [address] [place] [address] Specialist Vascular Surgery 10/01/23 [facility] [address] [place] [address] Specialist Optometry 10/01/23 documented as of this encounter
--- OUTSIDE RECORDS SUMMARY | 2024-07-30 10:26 | XMS_ITS | Encounter Summary ---
Author Organization [facility] Address [address] [place] [address] Care Team Providers Care Director Of Radio Services Name Role Phone Teressa Solis DO Primary Care Pro vider Unavailable Mina Pretty DO Primary Care Provider Shweta Cronin MD Primary Care Provider Ora Diaz MD Primary Care Prov ider Jl Mendez MD Unavailable [phone] Jannette Boudreaux MD Unavailable [phone] Tenisha Mendieta PA-C Unavailable Julio Monk PA-C Unavailable Luis Armando Eller MD Unavailable [phone] Jayesh Pineda MD Unavailable Kelsi Tejada MD Unavailable Unavailable Pretty Le MD Unavailable Vesta Michael PA-C Unavailable [phone] [facility] Unavailable [phone] Encounter Details Date Type Department Care Team Description 12/30/2016 Hospital Medical Records [address] [place] [address] Social History Tobacco Use Types Packs/Day Years Used Date Smoking Tobacco: Never Smokeless Tobacco: Never Alcohol Use Standard Drinks/Week Comments No 0 (1 standard drink = 0.6 oz pur e alcohol) Education Answer Date Recorded What is the highest level of school you have completed or the highest degree you have received? 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, EDUCATION REVIEWER, CHANDRAKANT) 06/14/2020 Sex Assigned at Date Recorded [...] in this encounter Care Teams Director Of Radio Services Relationship Specialty Start Date End Date Teressa Solis DO PCP - General Internal Medicine 12/18/13 09/15/20 Mina Pretty DO PCP - General Internal Medicine 09/16/20 1 Shweta Tellez MD PCP - General Internal Medicine 01/12/21 10/10/21 Hiwot Couch, Ora Kelly MD [address] [place] [address] PCP - General Internal Medicine 10/11/21 Jl Mendez MD [address] [place] [address] Dr [address] [place] [address] Specialist Cardiovascular Disease 10/13/21 Jannette Boudreaux MD [address] [address] Surgeon Neurosurgery 04/07/22 Tenisha Mendieta PA-C [address] [address] Specialist Neurosurgery 04/07/22 Julio Monk PA-C 175 [facility] [address] [place] [address] Specialist Neurosurgery 04/07/22 Luis Armando Eller MD 175 [facility] [address] [place] [address] Specialist ORTHOPEDIC SURGERY 10/01/23 Jayesh Pineda MD [address] [place] [address] Specialist Endocrinology 10/01/23 Kelsi Tejada MD [address] [place] [address] Specialist Allergy & Immunology 10/01/23 Pretty Le MD 175 [facility] [address] [place] [phone] Specialist Pulmonology 10/01/23 Vesta Michael PA-C 300 [facility] [address] [place] [address] Specialist Vascular Surgery 10/01/23 [facility] [address] [place] [address] Specialist Optometry 10/01/23 documented as of this encounter
--- OUTSIDE RECORDS SUMMARY | 2024-07-30 10:26 | XMS_ITS | Encounter Summary ---
Author Organization [facility] Address [address] [place] [address] Care Team Providers Care Pneumatic Hoist Operator Name Role Phone Teressa Solis DO Primary Care Pro vider Unavailable Mina Pretty DO Primary Care Provider Ailyn Shweta Pretty MD Primary Care Provider Ora Diaz MD Primary Care Prov ider Jl Mendez MD Unavailable [phone] Jannette Boudreaux MD Unavailable [phone] Tenisha Mendieta PA-C Unavailable [phone] Juilo Monk PA-C Unavailable Luis Armando Eller MD Unavailable [phone] Jayesh Pineda MD Unavailable Kelsi Tejada MD Unavailable Unavailable Pretty Le MD Unavailable Vesta Michael PA-C Unavailable [phone] [facility] Unavailable Encounter Details Date Type Department Care Team Description 08/26/2015 Orders Only Adult Medicine [address] [id number] Teressa Solis DO Hypothyroidism due to acquired [...] - 4.00 mIU/ml 08/30/2015 1:09 PM EDT [facility] 08/30/2015 11:1 3 AM EDT 08/30/2015 11:13 AM EDT Teressa Grace DO LAB [facility] [address] [facility] documented in this encounter Visit Diagnoses Diagnosis Hypothyroidism due to acquired atrophy of thyroid- Primary documented in this encounter Care Teams Pneumatic Hoist Operator Relationship Specialty Start Date End Date Teressa Solis DO PCP - General Internal Medicine 12/18/13 09/15/20 Mina Pretty DO PCP - General Internal Medicine 09/16/20 1 Shweta Tellez MD PCP - General Internal Medicine 01/12/21 10/10/21 Ora Ronquillo MD [address] [place] [address] PCP - General Internal Medicine 10/11/21 Jl Mendez MD [address] [place] [address] Dr Mont[address] [place] [address] Specialist Cardiovascular Disease 10/13/21 Jannette Boudreaux MD [address] [address] Surgeon Neurosurgery 04/07/22 Tenisha Mendieta PA-C [address] [address] Specialist Neurosurgery 04/07/22 Julio Monk PA-C 175 [facility] [address] [place] [address] Specialist Neurosurgery 04/07/22 Luis Armando Eller MD 175 [facility] [address] [place] [address] Specialist ORTHOPEDIC SURGERY 10/01/23 Jayesh Pineda MD [address] [place] [address] Specialist Endocrinology 10/01/23 Kelsi Tejada MD [address] [place] [address] Specialist Allergy & Immunology 10/01/23 Pretty Le MD 175 [facility] 200 [place] [phone] Specialist Pulmonology 10/01/23 Vesta Michael PA-C 300 [facility] [address] [place] [phone] Specialist Vascular Surgery 10/01/23 [facility] [address] [place] [address] Specialist Optometry 10/01/23 documented as of this encounter
--- OUTSIDE RECORDS SUMMARY | 2024-07-30 10:26 | XMS_ITS | Encounter Summary ---
Author Organization [facility] Address [address] [place] [address] Care Team Providers Care Shuttle Car Operator Name Role Phone Teressa Solis DO Primary Care Pro vider Unavailable Mina Pretty DO Primary Care Provider Shweta Cronin MD Primary Care Provider Ora Diaz MD Primary Care Prov ider Jl Mendez MD Unavailable Jannette Boudreaux MD Unavailable [phone] Tenisha Mendieta PA-C Unavailable Julio Monk PA-C Unavailable Luis Armando Eller MD Unavailable [phone] Jayesh Pineda MD Unavailable Kelsi Tejada MD Unavailable Unavailable Pretty Le MD Unavailable Vesta Michael PA-C Unavailable [phone] [facility] Unavailable Encounter Details Date Type Department Care Team Description 07/31/2016 [facility] Medical Records [address] [place] [address] Abstract, Provider Social History Tobacco Use Types [...] on filedocumented in this encounter Care Teams Shuttle Car Operator Relationship Specialty Start Date End Date Teressa Solis DO PCP - General Internal Medicine 12/18/13 09/15/20 Mina Pretty DO PCP - General Internal Medicine 09/16/20 Shweta Boucher MD PCP - General Internal Medicine 01/12/21 10/10/21 Ora Ronquillo MD [address] [place] [address] PCP - General Internal Medicine 10/11/21 Jl Mendez MD [address] [place] [address] Dr Mont[address] [place] [address] Specialist Cardiovascular Disease 10/13/21 Jannette Boudreaux MD [address] [address] Surgeon Neurosurgery 04/07/22 Tenisha Mendieta PA-C [address] [address] Specialist Neurosurgery 04/07/22 Julio Monk PA-C [address] [address] Specialist Neurosurgery 04/07/22 Luis Armando Eller MD [address] [address] Specialist ORTHOPEDIC SURGERY 10/01/23 Jayesh Pineda MD [address] [place] [address] Specialist Endocrinology 10/01/23 Kelsi Tejada MD [address] [place] [address] Specialist Allergy & Immunology 10/01/23 Pretty Le MD 175 [facility] [address] [place] [address] Specialist Pulmonology 10/01/23 Vesta Michael PA-C 300 [facility] 210 [place] [address] Specialist Vascular Surgery 10/01/23 [facility] [address] [place] [address] Specialist Optometry 10/01/23 documented as of this encounter
--- OUTSIDE RECORDS SUMMARY | 2024-07-30 10:26 | XMS_ITS | Encounter Summary ---
Author Organization [facility] Address [address] [place] [address] Care Team Providers Care Boat Finisher Name Role Phone Teressa Solis DO Primary Care Pro vider Unavailable Mina Pretty DO Primary Care Provider Shweta Cronin MD Primary Care Provider Ora Diaz MD Primary Care Prov ider Jl Mendez MD Unavailable [phone] Jannette Boudreaux MD Unavailable [phone] Tenisha Mendieta PA-C Unavailable Julio Monk PA-C Unavailable Luis Armando Eller MD Unavailable [phone] Jayesh Pineda MD Unavailable Kelsi Tejada MD Unavailable Unavailable Pretty Le MD Unavailable Vesta Michael PA-C Unavailable [phone] [facility] Unavailable [phone] Encounter Details Date Type Department Care Team Description 07/21/2016 Hand Singer Report Medical Records [address] [place] [address] Jeff Ogden MD Social History Tobacco Use [...] on filedocumented in this encounter Care Teams Boat Finisher Relationship Specialty Start Date End Date Teressa Solis DO PCP - General Internal Medicine 12/18/13 09/15/20 Mina Pretty DO PCP - General Internal Medicine 09/16/20 Shweta Boucher MD PCP - General Internal Medicine 01/12/21 10/10/21 Ora Ronquillo MD [address] [place] [address] PCP - General Internal Medicine 10/11/21 Jl Mendez MD [address] [place] [address] Specialist Cardiovascular Disease 10/13/21 Jannette Boudreaux MD [address] [address] Surgeon Neurosurgery 04/07/22 Tenisha Mendieta PA-C [address] [address] Specialist Neurosurgery 04/07/22 Julio Monk PA-C [address] [address] Specialist Neurosurgery 04/07/22 Luis Armando Eller MD [address] [address] Specialist ORTHOPEDIC SURGERY 10/01/23 Jayesh Pineda MD [address] [place] [address] Specialist Endocrinology 10/01/23 Kelsi Tejada MD [address] [place] [address] Specialist Allergy & Immunology 10/01/23 Pretty Le MD 175 [facility] [address] [place] [address] Specialist Pulmonology 10/01/23 Vesta Michael PA-C 300 [facility] 210 [place] [address] Specialist Vascular Surgery 10/01/23 [facility] [address] [place] [address] Specialist Optometry 10/01/23 documented as of this encounter
--- OUTSIDE RECORDS SUMMARY | 2024-07-30 10:26 | XMS_ITS | Continuity of Care Document ---
Author Organization [facility] Address [address] [place] [address] [address] [place] [address]- Care Team Providers Care Manager Gas Name Role Phone Hiwot Couch MD, Ora Prado Primary Care Physicia n Encounter [facility] Date(s): 06/24/24 - 07/24/[address] [place] [address]- Attending Physician: Admtr, Ar8 Admitting Physician: Admtr, Ar8 Referring Physician: Admtr, [...] Date: 05/21/13 Status: Ordered Repeat number: 1 Citracal Maximum + D oral tablet 2 tablet, By Mouth, 2 times a day, # 240 tablet, 0 Refills, Maintenance, 06/06/24 10:50:00 AM EDT, Tablet, [facility]/pharmacy #[id number], Partial fill upon patient request if the prescription is for a schedule II opioid drug., 2 tablet By Mouth 2 times a day,x60 days, 160, cm, 06/06/24 6:41:00 EDT, Height, 125.1, kg, 06/06/24 6:41:00 EDT, Dry Weight Start Date: 06/06/24 Stop Date: 08/05/24 Status: Ordered Quantity: 240.0 Unit: tablet Repeat number: 1 cloNIDine 0.1 mg oral [...] number: 1 docusate sodium 100 mg oral tablet 1 tablet = 100 mg, By Mouth, Daily, While on oxycodone, # 14 tablet, 0 Refills, Maintenance, 06/06/24 10:50:00 AM EDT, Tablet, [facility][id number], Partial fill upon patient request if the prescriptionis for a schedule II opioid drug., 160, cm, 06/06/24 6:41:00 EDT, Height, 125.1, kg, 06/06/24 6:41:00 EDT, Dry Weight Start Date: 06/06/24 Stop Date: 06/20/24 Status: Ordered Quantity: 14.0 Unit: tablet Repeat number: 1 fexofenadine 180 mg oral tablet 0 Refills, Maintenance, 05/21/24 11:55:00 AM EDT, Partial fill upon patient request if the prescription is for a schedule II opioid drug. Start Date: 05/21/24 Status: Ordered Repeat number: 1 levothyroxine 0.137 mg oral tablet 0 Refills, Maintenance, 05/21/24 11:55:00 AM EDT, Partial fill upon patient request if the prescription is for a schedule II opioid drug. Start Date: 05/21/24 Status: Ordered Repeat number: 1 Losartan = 100 mg, By Mouth, Daily, 0 Refills, Maintenance, 12/01/13 9:22:20 AM EDT Start Date: 12/01/13 Status: Ordered Repeat number: 1 pantoprazole 40 mg oral delayed release tablet 0 Refills, Maintenance, 05/21/24 11:56:00 AM EDT Start Date: 05/21/24 Status: Ordered Repeat number: 1 Peridex 0.12% [...] Date: 02/26/24 Status: Ordered Repeat number: 1 sertraline 100 mg oral tablet 1 tablet = 100 mg, By Mouth, Daily, 0 Refills, Maintenance, 06/03/24 9:51:00 AM EDT, Partial fill upon patient request if the prescription is for a schedule II opioid drug. Start Date: 06/03/24 Status: Ordered Repeat number: 1 Singulair By [...] Date: 02/26/24 Status: Ordered Repeat number: 1 Trulicity Pen 3 mg/0.5 mL subcutaneous solution 0.5 mL = 3 mg, Subcutaneous Injection, Every week, rotate injection sites, # 2 mL, 3 Refills, Maintenance, 11/02/23 2:36:00 PM EDT, Solution, [facility], Partial fill upon patient request if the prescription is for a schedule II opioid drug., 159.4, cm, 11/02/23 14:01:00 EDT, Height Start Date: 11/02/23 Status: Ordered Quantity: 2.0 Unit: mL Repeat number: 4 Indication: Type 2 diabetes mellitus without complications venlafaxine 37.5 mg oral capsule, extended release 0 Refills, Maintenance, 05/21/24 11:56:00 AM EDT, Partial fill upon patient request if the prescription is for a schedule II opioid drug. Start Date: 05/21/24 Status: Ordered Repeat number: 1 Vitamin D3 1000 intl units oral tablet 1 tablet = 1,000 International_Units, By Mouth, Daily, 0 Refills, Maintenance, 10/15/12 10:38:40 AM EDT Start Date: 10/15/12 Status: Ordered Repeat number: 1 Zyrtec-D 1 tablet, By Mouth, 2 times a day, 0 Refills, Maintenance, 12/30/13 1:23:30 PM EDT Start Date: 12/30/13 Status: Ordered Repeat number: 1 Problem List Condition Confirmation Course Effective Dates Status Health Status Informant Anxiety Confirmed Active Asthma Confirmed Active Lower extremity edema Confirmed Active Chronic GERD Confirmed Active Hyperlipidemia Confirmed Active Hyperparathyroidism Confirmed Active Hypertension Confirmed Active Hypothyroidism Confirmed Active Migraine headache Confirmed Active Severe obesity Confirmed Active Type 2 diabetes mellitus Confirmed Active Social History Social History Type Response Smoking Status Never smoker entered on: 12/01/13 Sex Sex Representation Female (finding) Patient Care team information Care Team Personnel Name: Hiwot Couch MD, Ora Prado Position: Reference Physician Member Role: PCP Address: [address] [place] [address] Telecom: Care Team Related Persons Name: JULIEN GARCÍA Name: ALFREDO WARREN Insurance Providers Guarantor name: [facility] Health Plan Information #: 1 Payer: [employer] Member Number: NA Policy Number: NA Group Number: NA
--- OUTSIDE RECORDS SUMMARY | 2024-07-30 10:26 | XMS_ITS | Encounter Summary ---
Author Organization [facility] Address [address] [place] [address] Care Team Providers Care Building Carpenter Helper Name Role Phone Teressa Solis DO Primary Care Pro vider Unavailable Mina Pretty DO Primary Care Provider Ailyn Shweta Pretty MD Primary Care Provider Ora Diaz MD Primary Care Prov ider Jl Mendez MD Unavailable [phone] Jannette Boudreaux MD Unavailable [phone] Tenisha Mendieta PA-C Unavailable Julio Monk PA-C Unavailable [phone] Luis Armando Eller MD Unavailable [phone] Jayesh Pineda MD Unavailable Kelsi Tejada MD Unavailable Unavailable Pretty Le MD Unavailable Vesta Michael PA-C Unavailable [phone] [facility] Unavailable Encounter Details Date Type Department Care Team Description 10/11/2015 Code Official Report Medical Records [address] [place] [address] Wilfredo Tena MD Social History Tobacco Use [...] on filedocumented in this encounter Care Teams Building Carpenter Helper Relationship Specialty Start Date End Date Teressa Solis DO PCP - General Internal Medicine 12/18/13 09/15/20 Mina Pretty DO PCP - General Internal Medicine 09/16/20 Shweta Boucher MD PCP - General Internal Medicine 01/12/21 10/10/21 Ora Ronquillo MD [address] [place] [address] PCP - General Internal Medicine 10/11/21 Jl Mendez MD [address] [place] [address] Specialist Cardiovascular Disease 10/13/21 Jannette Boudreaux MD [address] [address] Surgeon Neurosurgery 04/07/22 Tenisha Mendieta PA-C [address] [address] Specialist Neurosurgery 04/07/22 Julio Monk PA-C [address] [address] Specialist Neurosurgery 04/07/22 Luis Armando Eller MD [address] [address] Specialist ORTHOPEDIC SURGERY 10/01/23 Jayesh Pineda MD [address] [place] [address] Specialist Endocrinology 10/01/23 Kelsi Tejada MD [address] [place] [address] Specialist Allergy & Immunology 10/01/23 Pretty Le MD 175 [facility] [address] [place] [address] Specialist Pulmonology 10/01/23 Vesta Michael PA-C 300 [facility] [address] [place] [address] Specialist Vascular Surgery 10/01/23 [facility] [address] [place] [address] Specialist Optometry 10/01/23 documented as of this encounter
--- OUTSIDE RECORDS SUMMARY | 2024-07-30 10:26 | XMS_ITS | Encounter Summary ---
Author Organization [facility] Address [address] [place] [address] Care Team Providers Care Superintendent Transmission Name Role Phone Teressa Solis DO Primary Care Pro vider Unavailable Mina Pretty DO Primary Care Provider Shweta Cronin MD Primary Care Provider Ora Diaz MD Primary Care Prov ider Jl Mendez MD Unavailable Jannette Boudreaux MD Unavailable [phone] Tenisha Mendieta PA-C Unavailable Julio Monk PA-C Unavailable Luis Armando Eller MD Unavailable [phone] Jayesh Pineda MD Unavailable Kelsi Tejada MD Unavailable Unavailable Pretty Le MD Unavailable Vesta Michael PA-C Unavailable [facility] Unavailable Encounter Details Date Type Department Care Team Description 08/27/2015 Jewelry Manager Report Medical Records [address] [place] [address] Jeff Ogden MD Social History Tobacco Use [...] on filedocumented in this encounter Care Teams Superintendent Transmission Relationship Specialty Start Date End Date Teressa Solis DO PCP - General Internal Medicine 12/18/13 09/15/20 Mina Pretty DO PCP - General Internal Medicine 09/16/20 Shweta Boucher MD PCP - General Internal Medicine 01/12/21 10/10/21 Ora Ronquillo MD [address] [place] [address] PCP - General Internal Medicine 10/11/21 Jl Mendez MD [address] [place] [address] Specialist Cardiovascular Disease 10/13/21 Jannette Boudreaux MD [address] [address] Surgeon Neurosurgery 04/07/22 Tenisha Mendieta PA-C [address] [address] Specialist Neurosurgery 04/07/22 Julio Monk PA-C [address] [address] Specialist Neurosurgery 04/07/22 Luis Armando Eller MD [address] [address] Specialist ORTHOPEDIC SURGERY 10/01/23 Jayesh Pineda MD [address] [place] [address] Specialist Endocrinology 10/01/23 Kelsi Tejada MD [address] [place] [address] Specialist Allergy & Immunology 10/01/23 Pretty Le MD 175 [facility] [address] [place] [address] Specialist Pulmonology 10/01/23 Vesta Michael PA-C 300 [facility] 210 [place] [address] Specialist Vascular Surgery 10/01/23 [facility] [address] [place] [address] Specialist Optometry 10/01/23 documented as of this encounter
--- OUTSIDE RECORDS SUMMARY | 2024-07-30 10:26 | XMS_ITS | Encounter Summary ---
Author Organization [facility] Address [address] [place] [address] Care Team Providers Care Equip Maint Eng Name Role Phone Geno Cueva MD Primary Care Provider Unavailable Teressa Solis DO Primary Care Pro vider Unavailable Mina Pretty DO Primary Care Provider Ailyn Shweta Pretty MD Primary Care Provider Ora Diaz MD Primary Care Prov ider Jl Mendez MD Unavailable Jannette Boudreaux MD Unavailable [phone] Tenisha Mendieta PA-C Unavailable Julio Monk PA-C Unavailable Luis Armando Eller MD Unavailable [phone] Jayesh Pineda MD Unavailable Kelsi Tejada MD Unavailable Unavailable Pretty Le MD Unavailable Vesta Michael-Pina Unavailable [phone] [facility] Unavailable [phone] Encounter Details Date Type Department Care Team Description 03/24/2013 Soapstoner Report Medical Records [address] [place] [address] Narinder Franco MD Social History Tobacco Use [...] on filedocumented in this encounter Care Teams Equip Maint Eng Relationship Specialty Start Date End Date Geno Cueva MD PCP - General Internal Medicine 06/28/1212/17/13 Teressa Solis DO PCP - General Internal Medicine 12/18/13 09/15/20 Mina Pretty DO PCP - General Internal Medicine 09/16/20 1 Shweta Tellez MD PCP - General Internal Medicine 01/12/21 10/10/21 Hiwot Couch, Ora Kelly MD [address] [place] [address] PCP - General Internal Medicine 10/11/21 Jl Mendez MD [address] [place] [address] Dr Mont[address] [place] [address] Specialist Cardiovascular Disease 10/13/21 Jannette Boudreaux MD [address] [address] Surgeon Neurosurgery 04/07/22 Tenisha Mendieta PA-C [address] [address] Specialist Neurosurgery 04/07/22 Julio Monk PA-C [address] [address] Specialist Neurosurgery 04/07/22 Luis Armando Eller MD [address] [address] Specialist ORTHOPEDIC SURGERY 10/01/23 Jayesh Pineda MD [address] [place] [address] Specialist Endocrinology 10/01/23 Kelsi Tejada MD [address] [place] [address] Specialist Allergy & Immunology 10/01/23 Pretty eL MD 175 [facility] [address] [place] [address] Specialist Pulmonology 10/01/23 Vesta Michael PA-C 300 [facility] [address] [place] [address] Specialist Vascular Surgery 10/01/23 [facility] [address] [place] [address] Specialist Optometry 10/01/23 documented as of this encounter
--- OUTSIDE RECORDS SUMMARY | 2024-07-30 10:26 | XMS_ITS | Data Portability ---
Author Organization [facility] [address] Address [address] [place] [address] Assessment No assessment recorded. Plan of Treatment Reminders Order Date Submit Date Provider Last Modified By Organization Details Last Modified Time Details Appointments None recorded. Lab rapid flu (A+B) 2021 022 marva zhang13 [facility] [address], [address] [place], [address], 14:02:10 rapid SARS CoV 2 Ag, QL IA, respiratory specimen 2021 022 [facility] [address], [address] [place], [address], 14:02:10 Referral None recorded. Procedures None recorded. Surgeries None recorded. Imaging None recorded. Medication Orders Tamiflu [address] [facility]/Pharmacy #[id number], [phone] [place], [address], 03:31:38 promethazin e-DM 6.25 mg-15 mg/[address] [facility]/Pharmacy #[id number], [phone] [place], [address], 14:02:13 Patient TargetsNo targets recorded. Patient Instructions Encounter Date Encounter Id Patient Instructions Last Modified By Organization Details Last Modified Time 02/20/2022 [id number] You should follow-up with your PCP in [...] speci men Unknown Analyte Not Available [address] [place] [address] [address] [place], [address], 02/20/2022 13:38:01 02/21/20 22 02/20/2022 rapid SARS CoV 2 Ag, QL IA, respi rator y speci men Unknown Analyte negati ve Not Available [address] [place], [address], 02/20/2022 13:38:01 02/21/20 22 02/20/2022 rapid flu (A+B) Unknown Analyte negati ve Not Available sprin [address] [place], [address], 02/20/2022 13:24:32 02/21/20 22 02/20/2022 rapid flu (A+B) Unknown Analyte Normal = Negati ve Not Available spr[address] [place], [address], 02/20/2022 13:24:32 02/21/20 22 02/20/2022 rapid flu (A+B) Unknown Analyte negati ve Not Available [address] [place], [address], 02/20/2022 13:24:32 02/21/20 22 02/20/2022 rapid flu (A+B) Unknown Analyte Normal = Negati ve Not Available [address] [place], [address], 02/20/2022 13:24:32 Result Notes None recorded. Problems Name Problem SNOMED Code Status Onset Date Resolution Date Notes Provider Name and Address Organization Details Recorded Time Hypertensive disorder 84881907 Active 2021 Layne Trevino null, PA - [facility] 2 13:21:27 Hyperlipidemia 37697224 Active 2021 Layne Trevino null, PA - [facility] 13:21:42 Thyroiditis 83768059 Active 2021 Laynetristen Trevino null, PA - [facility] 13:21:59 Environmental allergy 831566364 Active 2021 Layne Trevino null, PA - [facility] 2 13:22:12 Migraine 21826367 Active 2021 Layne Trevino null, PA - [facility] 13:22:21 Diabetes mellitus 23610320 Active 2021 Layne Trevino null, PA - [facility] 13:22:34 Asthma 871475803 Active 2021 Layne Trevino null, PA - [...] Name and Address Organization Details Recorded Time 73679 Product containin g penicilli n (product) medicatio n swelling Not available high 02/20/2022 84757 8001 SNOMED Layne Trevino null, PA - [facility] 2 13:13:07 88313 Duricef medicatio n swelling Not available Not available 02/20/2022 48192 6 RxNorm Layne Trevino null, PA - [facility] 2 13:13:25 43210 Medrol medicatio n swelling Not available Not available 02/20/202216555 2 RxNorm Layne Trevino null, PA - [facility] 2 13:13:43 04922 oxycodone medicatio n Not available Not available Not available 02/20/2022 7804 RxNorm Layne Trevino null, PA - [facility] 2 13:13:52 20836 chocolate flavor food,medi cation Not available Not available Not available 02/20/2022 79482 UNDarren Trevino null, PA - [facility] 2 13:14:02 96259 almond allergeni c extract food Not available Not available Not available 02/20/2022 44676 7 RxNorm Layne Trevino null, PA - [facility] 2 13:14:09 09298 Canis lupus familiari s extract environme nt Not available Not available Not available 02/20/2022 06616 4 RxNorm Layne Trevino null, PA - [facility] 2 13:14:18 14450 cat dander environme nt Not available Not available Not available 02/20/2022 68263 UNDarren Trevino null, PA - [facility] 2 13:14:22 34308 rabbit dander environme nt Not available Not available Not available 02/20/2022 09350 UNDarren Trevino null, PA - [facility] 2 13:14:29 92490 latex environme nt,medica tion Not available Not available Not available 02/20/2022 98533 91 RxNorm Layne Trevino null, PA - [facility] 2 13:14:36 93954 house dust mite environme nt Not available Not available Not available 02/20/2022 64463 UNK Layne Trevino null, PA - [facility] 2 13:14:44 95408 POLLEN EXTRACTS environme nt,medica tion Not available Not available Not available 02/20/2022 33152 6 RxNorm Layne Trevino null, PA - [facility] 2 13:14:56 49448 grass pollen environme nt,medica tion Not available Not available Not available 02/20/2022 46066 UNK Layne Trevino null, PA - [facility] 2 13:15:03 15237 ethinyl estradiol / levonorge strel medicatio n Not available Not available Not available 02/20/2022 73679 8 RxNorm Layne Trevino null, PA - [...] Updated DateTime 2 162.56 cm 44.6 kg/m2 343607. 02 g 100 % 100 % 85 /min 20 /min 98.8 [degF] 159 mm[Hg] 88 mm[Hg] Layne Cotto [facility] 13:12:06 Social History Question Answer Notes LastModified by TOMS Shoesat ion Details LastModified Time Tobacco Smoking Status Never Smoker [facility] 02/20/2022 13:23:07 Have You Had Direct Contact, Or Contact During Intimacy, With Monkeypox Rash, Scabs, Or Body Fluids From A Person With Monkeypox? No [email or web address] Information not available 02/20/2022 Have You Recently Traveled Abroad? No [email or web address] Information not available 02/20/2022 Sex: Unknown Functional Status Question Answer Note LastModified by Organizat ion Details LastModified Time Do you use any illicit or recreational drugs? No Information not available 02/20/2022 What is your level of alcohol consumption? Occasional [email or web address] Information not available 02/20/2022 Mental Status None recorded. Family History Nothing [...] SNOMED-CT Code Diagnosis ICD10 Code Diagnosis Note [id number] [address] [facility] [place] [address] 04/01/2019 17:17:25 04/01/2019 18:28:03 [id number] Evelina miller MD [address] [facility] [place] [address] 02/20/2022 12:02:53 02/20/2022 14:03:53 Generalized aches and pains 69190693 R52 Viral syndrome 305556858 B34.9 Health Concerns Section Related Observation LastModified by Organization Detai ls LastModified Time None Recorded Concern Status LastModified by Organization Details LastModified Time None Recorded Advance Directives Directive None Recorded Payers Insurance Date Sequence Insurance Name Policy Number Policy Saleh Covered Member ID Saleh Member ID Guarantor Name 02/20/2022 1 [facility] (MEDICAID REPLACEMENT - HMO) [facility] Ana Luisa House [id number] Ana Luisa House Notes Date Note Type Note Provider [...] nasal drip;hurts to breath Evelina Xiao MD [address] [place], [place] [address]A[place], [address], [place] - [facility] 02/20/2022 20:29:48 OBGyn Episode No OBEpisode recorded.
--- OUTSIDE RECORDS SUMMARY | 2024-07-30 10:26 | XMS_ITS | Encounter Summary ---
Author Organization [facility] Address [address] [place] [address] Care Team Providers Care Scaffolding Helper Name Role Phone Ora Ronquillo MD Primary Care Prov ider Jl Mendez MD Unavailable Jannette Boudreaux MD Unavailable [phone] Tenisha Mendieta PA-C Unavailable [phone] Julio Monk PA-C Unavailable [phone] Luis Armando Eller MD Unavailable [phone] Jayesh Pineda MD Unavailable Kelsi Tejada MD Unavailable Unavailable Pretty Le MD Unavailable Vesta Michael PA-C Unavailable [facility] Unavailable [phone] Reason for Visit * Reason Onset Date Comments Prior Authorization 03/22/2023 Encounter Details Date Type Department Care Team Description 03/22/2023 Telephone Endocrinology - [address] [address] Jayesh Pineda MD [address] [place] [address] [id number] Prior Authorization Social History Tobacco Use Types Packs/Day Years Used Date Smoking Tobacco: Never Smokeless Tobacco: Never Alcohol Use Standard Drinks/Week Comments No 0 (1 standard drink = 0.6 oz pur e alcohol) Education Answer Date Recorded What is the highest level of school you have completed or the highest degree you have received? 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 N/a How does patient take this med? injection Pharmacy fax #: documented in this encounter Plan of Treatment Not on file documented as of this encounter Visit Diagnoses Not on filedocumented in this encounter Care Teams Scaffolding Helper Relationship Specialty Start Date End Date Ora Ronquillo MD [address] [place] [address] PCP - General Internal Medicine 10/11/21 Jl Mendez MD [address] [place] [address] Dr Mont[address] [place] [address] Specialist Cardiovascular Disease 10/13/21 Jannette Boudreaux MD 175 [facility] [address] [place] [address] Surgeon Neurosurgery 04/07/22 Tenisha Mendieta PA-C 175 [facility] 300 [place] [address] Specialist Neurosurgery 04/07/22 Julio Monk PA-C 175 [facility] [address] [place] [address] Specialist Neurosurgery 04/07/22 Luis Armando Eller MD 175 [facility] [address] [place] [address] Specialist ORTHOPEDIC SURGERY 10/01/23 Jayesh Pineda MD [address] [place] [address] Specialist Endocrinology 10/01/23 Kelsi Tejada MD [address] [place] [address] Specialist Allergy & Immunology 10/01/23 Pretty Le MD 175 [facility] 200 [place] [address] Specialist Pulmonology 10/01/23 Vesta Michael PA-C 300 [facility] [address] [place] [address] Specialist Vascular Surgery 10/01/23 [facility] [address] [place] [address] Specialist Optometry 10/01/23 documented as of this encounter
--- OUTSIDE RECORDS SUMMARY | 2024-07-30 10:26 | XMS_ITS | Encounter Summary ---
Author Organization [facility] Address [address] [place] [address] Care Team Providers Care Outsole Scheduler Name Role Phone Teressa Solis DO Primary Care Pro vider Unavailable Mina Pretty DO Primary Care Provider Shweta Cronin MD Primary Care Provider Ora Diaz MD Primary Care Prov ider Jl Mendez MD Unavailable Jannette Buodreaux MD Unavailable [phone] Tenisha Mendieta PA-C Unavailable Julio Monk PA-C Unavailable Luis Armando Eller MD Unavailable [phone] Jayesh Pineda MD Unavailable Kelsi Tejada MD Unavailable Unavailable Pretty Le MD Unavailable Vesta Michael PA-C Unavailable [phone] [facility] Unavailable Reason for Visit * Reason Onset Date Comments Faxed Order 01/23/2017 Encounter Details Date Type Department Care Team Description 01/23/2017 Telephone Adult [address] [address] Teressa Solis DO Faxed Order [...] PT, please sign and fax back to [phone]. documented in this encounter Plan of Treatment Not on file documented as of this encounter Visit Diagnoses Not on filedocumented in this encounter Care Teams Outsole Scheduler Relationship Specialty Start Date End Date Teressa Solis, PCP - General Internal Medicine 12/18/13 09/15/20 Mina Pretty DO PCP - General Internal Medicine 09/16/20 Shweta Boucher MD PCP - General Internal Medicine 01/12/21 10/10/21 Ora Ronquillo MD [address] [place] [address] PCP - General Internal Medicine 10/11/21 Jl Mendez MD [address] [place] [address] Dr Mont[address] [place] [address] Specialist Cardiovascular Disease 10/13/21 Jannette Boudreaux MD [address] [address] Surgeon Neurosurgery 04/07/22 Tenisha Mendieta PA-C [address] [address] Specialist Neurosurgery 04/07/22 Julio Monk PA-C [address] [address] Specialist Neurosurgery 04/07/22 Luis Armando Eller MD 175 [facility] [address] [place] [address] Specialist ORTHOPEDIC SURGERY 10/01/23 Jayesh Pineda MD [address] [place] [address] Specialist Endocrinology 10/01/23 Kelsi Tejada MD [address] [place] [address] Specialist Allergy & Immunology 10/01/23 Pretty Le MD [address] [facility] [address] [place] [phone] Specialist Pulmonology 10/01/23 Vesta Michael PA-C 300 [facility] [address] [place] [address] Specialist Vascular Surgery 10/01/23 [facility] [address] [place] [address] Specialist Optometry 10/01/23 documented as of this encounter
--- OUTSIDE RECORDS SUMMARY | 2024-07-30 10:26 | XMS_ITS | Encounter Summary ---
Author Organization [facility] Address [address] [place] [address] Care Team Providers Care Work And Family Life Consultant Name Role Phone Teressa Solis DO Primary Care Pro vider Unavailable Mina Pretty DO Primary Care Provider Shweta Cronin MD Primary Care Provider Ora Diaz MD Primary Care Prov ider Jl Mendez MD Unavailable Jannette Boudreaux MD Unavailable [phone] Tenisha Mendieta PA-C Unavailable Julio Monk PA-C Unavailable Luis Armando Eller MD Unavailable [phone] Jayesh Pineda MD Unavailable Kelsi Tejada MD Unavailable Unavailable Pretty Le MD Unavailable Vesta Michael PA-C Unavailable [phone] [facility] Unavailable Encounter Details Date Type Department Care Team Description 01/22/2017 Public Safety Police Report Medical Records [address] [place] [address] Abstract, Provider Social History Tobacco Use Types [...] on filedocumented in this encounter Care Teams Work And Family Life Consultant Relationship Specialty Start Date End Date Teressa Solis DO PCP - General Internal Medicine 12/18/13 09/15/20 Mina Pretty DO PCP - General Internal Medicine 09/16/20 Shweta Boucher MD PCP - General Internal Medicine 01/12/21 10/10/21 Ora Ronquillo MD [address] [place] [address] PCP - General Internal Medicine 10/11/21 Jl Mendez MD [address] [place] [address] Specialist Cardiovascular Disease 10/13/21 Jannette Boudreaux MD [address] [address] Surgeon Neurosurgery 04/07/22 Tenisha Mendieta PA-C [address] [address] Specialist Neurosurgery 04/07/22 Julio Monk PA-C [address] [address] Specialist Neurosurgery 04/07/22 Luis Armando Eller MD [address] [address] Specialist ORTHOPEDIC SURGERY 10/01/23 Jayesh Pineda MD 305 [place] [address] Specialist Endocrinology 10/01/23 Kelsi Tejada MD 305 [place] [address] Specialist Allergy & Immunology 10/01/23 Pretty Le MD 175 [facility] [address] [place] [address] Specialist Pulmonology 10/01/23 Vesta Michael PA-C 300 [facility] [address] [place] [address] Specialist Vascular Surgery 10/01/23 [facility] [address] [place] [address] Specialist Optometry 10/01/23 documented as of this encounter
--- OUTSIDE RECORDS SUMMARY | 2024-07-30 10:26 | XMS_ITS | Encounter Summary ---
Author Organization [facility] Address [address] [place] [address] Care Team Providers Care Computer Help Desk Representative Name Role Phone Teressa Solis DO Primary Care Pro vider Unavailable Mina Pretty DO Primary Care Provider Shweta Cronin MD Primary Care Provider Ora Diaz MD Primary Care Prov ider Jl Mendez MD Unavailable Jannette Boudreaux MD Unavailable [phone] Tenisha Mendieta PA-C Unavailable Julio Monk PA-C Unavailable [phone] Luis Armando Eller MD Unavailable [phone] Jayesh Pineda MD Unavailable Kelsi Tejada MD Unavailable Unavailable Pretty Le MD Unavailable Vesta Michael PA-C Unavailable [phone] [facility] Unavailable [phone] Encounter Details Date Type Department Care Team Description 12/28/2016 Nanny/Household Manager Report Medical Records 4 [place] [address] Social History Tobacco Use Types Packs/Day Years [...] filedocumented in this encounter Care Teams Computer Help Desk Representative Relationship Specialty Start Date End Date Teressa Solis DO PCP - General Internal Medicine 12/18/13 09/15/20 Mina Pretty DO PCP - General Internal Medicine 09/16/20 Shweta Boucher MD PCP - General Internal Medicine 01/12/21 10/10/21 Ora Ronquillo MD [address] [place] [address] PCP - General Internal Medicine 10/11/21 Jl Mendez MD [address] [place] [address] Dr Mont[address] [place] [address] Specialist Cardiovascular Disease 10/13/21 Jannette Boudreaux MD [address] [address] Surgeon Neurosurgery 04/07/22 Tenisha Mendieta PA-C [address] [address] Specialist Neurosurgery 04/07/22 Julio Monk PA-C [address] [address] Specialist Neurosurgery 04/07/22 Luis Armando Eller MD [address] [address] Specialist ORTHOPEDIC SURGERY 10/01/23 Jayesh Pineda MD 305 [place] [address] Specialist Endocrinology 10/01/23 Kelsi Tejada MD 305 [place] [address] Specialist Allergy & Immunology 10/01/23 Pretty Le MD 175 [facility] [address] [place] [address] Specialist Pulmonology 10/01/23 Vesta Michael PA-C 300 [facility] 210 [place] [address] Specialist Vascular Surgery 10/01/23 [facility] 46 [place] [address] Specialist Optometry 10/01/23 documented as of this encounter
--- OUTSIDE RECORDS SUMMARY | 2024-07-30 10:26 | XMS_ITS | Encounter Summary ---
Author Organization [facility] Address [address] [place] [address] Care Team Providers Care Sales Promotion Representative Name Role Phone Geno Cueva MD Primary Care Provider Unavailable Teressa Solis DO Primary Care Pro vider Unavailable Mina Pretty DO Primary Care Provider Ailyn Shweta Pertty MD Primary Care Provider Ora Diaz MD Primary Care Prov ider Jl Mendez MD Unavailable Jannette Boudreaux MD Unavailable [phone] Tenisha Mendieta PA-C Unavailable [phone] Julio Monk PA-C Unavailable Luis Armando Eller MD Unavailable [phone] Jayesh Pineda MD Unavailable Kelsi Tejada MD Unavailable Unavailable Pretty Le MD Unavailable Vesta Michael-Pina Unavailable [phone] [facility] Unavailable [phone] Encounter Details Date Type Department Care Team Description 07/12/2012 It Software Engineer Report Medical Records [address] [place] [address] Arben [place] Social History Tobacco Use Types [...] filedocumented in this encounter Care Teams Sales Promotion Representative Relationship Specialty Start Date End Date Geno Cueva MD PCP - General Internal Medicine 06/28/1212/17/13 Teressa Solis DO PCP - General Internal Medicine 12/18/13 09/15/20 Mina Pretty DO PCP - General Internal Medicine 09/16/20 1 Shweta Tellez MD PCP - General Internal Medicine 01/12/21 10/10/21 Ora Ronquillo MD [address] [place] [address] PCP - General Internal Medicine 10/11/21 Jl Mendez MD [address] [place] [address] Dr Mont[address] [place] [address] Specialist Cardiovascular Disease 10/13/21 Jannette Boudreaux MD [address] [address] Surgeon Neurosurgery 04/07/22 Tenisha Mendieta PA-C [address] [address] Specialist Neurosurgery 04/07/22 Julio Monk PA-C [address] [address] Specialist Neurosurgery 04/07/22 Luis Armando Eller MD [address] [address] Specialist ORTHOPEDIC SURGERY 10/01/23 Jayesh Pineda MD [address] [place] [address] Specialist Endocrinology 10/01/23 Kelsi Tejada MD 305 [place] [address] Specialist Allergy & Immunology 10/01/23 Pretty Le MD 175 [facility] [address] [place] [address] Specialist Pulmonology 10/01/23 Vesta Michael PA-C 300 [facility] 210 [place] [address] Specialist Vascular Surgery 10/01/23 [facility] [address] [place] [address] Specialist Optometry 10/01/23 documented as of this encounter
--- OUTSIDE RECORDS SUMMARY | 2024-07-30 10:26 | XMS_ITS | Encounter Summary ---
Author Organization [facility] Address [address] [place] [address] Care Team Providers Care Stator Connector Name Role Phone Teressa Solis DO Primary Care Pro vider Unavailable Mina Pretty DO Primary Care Provider Shweta Cronin MD Primary Care Provider Ora Diaz MD Primary Care Prov ider Jl Mendez MD Unavailable [phone] Jannette Boudreaux MD Unavailable [phone] Tenisha Mendieta PA-C Unavailable [phone] Julio Monk PA-C Unavailable Luis Armando Eller MD Unavailable [phone] Jayesh Pineda MD Unavailable Kelsi Tejada MD Unavailable Unavailable Pretty Le MD Unavailable Vesta Michael PA-C Unavailable [phone] [facility] Unavailable Encounter Details Date Type Department Care Team Description 08/27/2015 Orders Only Adult Medicine [address] [address] Teressa Solis DO Social History [...] on filedocumented in this encounter Care Teams Stator Connector Relationship Specialty Start Date End Date Teressa Solis DO PCP - General Internal Medicine 12/18/13 09/15/20 Mina Pretty DO PCP - General Internal Medicine 09/16/20 1 Shweta Tellez MD PCP - General Internal Medicine 01/12/21 10/10/21 Hiwot Couch, Ora Kelly MD [address] [place] [address] PCP - General Internal Medicine 10/11/21 Jl Mendez MD [address] [place] [address] Dr Montiel [address] [place] [address] Specialist Cardiovascular Disease 10/13/21 Jannette Boudreaux MD [address] [address] Surgeon Neurosurgery 04/07/22 Tenisha Mendieta PA-C [address] [address] Specialist Neurosurgery 04/07/22 Julio Monk PA-C 175 [facility] [address] [place] [address] Specialist Neurosurgery 04/07/22 Luis Armando Eller MD [address] [address] Specialist ORTHOPEDIC SURGERY 10/01/23 Jayesh Pineda MD 305 [place] [address] Specialist Endocrinology 10/01/23 Kelsi Tejada MD 305 [place] [address] Specialist Allergy & Immunology 10/01/23 Pretty Le MD 175 [facility] [address] [address] Specialist Pulmonology 10/01/23 Vesta Michael PA-C 300 [facility] [address] [address] Specialist Vascular Surgery 10/01/23 [facility] [address] [place] [address] Specialist Optometry 10/01/23 documented as of this encounter
--- OUTSIDE RECORDS SUMMARY | 2024-07-30 10:26 | XMS_ITS | Encounter Summary ---
Author Organization [facility] Address [address] [place] [address] Care Team Providers Care Weaving Inspector Name Role Phone Ora Sweeney MD Primary Care Prov ider Encounter Details Date Type Department Care Team (Late st Contact Info) Description 12/12/2023 4:42 PM EDT Hospital Encounter TH HISTORIC ENCOUNTERS EASTERN CONVERSION ONLY Luis Armando Eller MD [address] [place] [address] Social History Tobacco Use Types Packs/Day Years [...] your loved ones. For example, child support specialist or elderly care for an older adult? No 01/24/2024 Employment and Income Answer Date Recor ded During the last four weeks, have you been actively looking for work? No 01/24/2024 Living Situation Answer Date Recorded What is your living situation? 1 03/25/2023 Interpersonal Safety Answer Date Record ed Physical Abuse 07/09/2024 Verbal Abuse 07/09/2024 Comments No Sex and Gender Information Value Date Recorded Sex Assigned at Female 06/30/2024 2:43 PM EDT Legal Sex Female 3:50 AM EST Gender Identity Female 06/30/2024 2:43 PM EDT Sexual Orientation Straight 06/30/2024 2: 43 PM EDT documented as of this encounter Plan of Treatment Upcoming Encounters Date Type Department Care Team (Late st Contact Info) Description 08/07/2024 9:30 AM EDT Office Visit Orthopedic Surgery - [place] [address] [phone] Duke Dunn, BASIL 175 [facility] 250 [place] [address] 08/21/2024 8:30 AM EDT Appointment [facility] [address] [place] [address] Dena Carrasco MD [address] [address] 08/22/2024 1:30 PM EDT Office Visit Obstetrics & Gynecology - [address] [phone] Nguyen Crespo, CNM [address] [place] [address] 09/08/2024 11:15 AM EDT Office Visit Endocrinology [address] [phone] Jayesh Pineda MD 305 [place] [address] 09/22/2024 8:45 AM EDT Office Visit Pulmonolgy - [address] [address] Pretty Le MD [address] [place] [address] 10/01/2024 7:30 AM EDT Office Visit Adult Medicine East [address] [phone] Paula Garnica PA 444 [place] [address] 12/05/2024 11:00 AM EDT Office Visit Orthopedic Surgery - [place] [address] [place] [phone] Genny Arreguin PA [address] [address] 12/09/2024 9:00 AM EDT Nutrition Internal Medicine - [address] 200 [place] [phone] Bruna Caballero, RD 175 [place] [address] 12/12/2024 8:30 AM EDT Office Visit Adult Medicine [facility] [address] [place] [address] Ora Sweeney MD [address] [place] [address] documented as of this encounter Visit Diagnoses Not on filedocumented in this encounter Additional Health Concerns Infection Onset Date Last Indicated Resolved Time Respiratory Rule-Out 04/25/2024 04/25/2024 025 4:13 PM EST COVID-19 Rule-Out 04/25/2024 04/25/2024 04/25/2024 4:13 PM EST documented as of this encounter Care Teams Weaving Inspector Relationship Specialty Start Date End Date Ora Sweeney MD [address] [place] [address] PCP - General 10/11/21 01/08/24 documented as of this encounter
--- OUTSIDE RECORDS SUMMARY | 2024-07-30 10:26 | XMS_ITS | Encounter Summary ---
Author Organization [facility] Address [address] [place] [address] Care Team Providers Care Insurance Rater Name Role Phone Teressa Solis DO Primary Care Pro vider Unavailable Mina Pretty DO Primary Care Provider Shweta Cronin MD Primary Care Provider Ora Diaz MD Primary Care Prov ider Jl Mendez MD Unavailable Jannette Boudreaux MD Unavailable [phone] Tenisha Mendieta PA-C Unavailable Julio Monk PA-C Unavailable Luis Armando Eller MD Unavailable [phone] Jayesh Pineda MD Unavailable Kelsi Tejada MD Unavailable Unavailable Pretty Le MD Unavailable Vesta Michael PA-C Unavailable [facility] Unavailable Encounter Details Date Type Department Care Team Description [facility]/29[facility] [address] [address] Teressa Solis DO Social History [...] UNITS Cap [Teressa Gallegos DO] Preferred pharmacy: [facility] [address] [place] [address] - [address] [place] [address] [address] [address] [facility] [address] Comment: Pharmacy states I don't have more refills. This is for my Vitamin D deficiency. documented in this encounter Plan of Treatment Not on file documented as of this encounter Visit Diagnoses Not on filedocumented in this encounter Care Teams Insurance Rater Relationship Specialty Start Date End Date Teressa Solis DO PCP - General Internal Medicine 12/18/13 09/15/20 Mina Pretty DO PCP - General Internal Medicine 09/16/20 1 Shweta Tellez MD PCP - General Internal Medicine 01/12/21 10/10/21 Ora Ronquillo MD [address] [place] [address] PCP - General Internal Medicine 10/11/21 Jl Mendez MD [address] [place] [address] Dr Montiel [address] [place] [address] Specialist Cardiovascular Disease 10/13/21 Jannette Boudreaux MD [address] [address] Surgeon Neurosurgery 04/07/22 Tenisha Mendieta PA-C 175 [facility] 300 [place] [address] Specialist Neurosurgery 04/07/22 Julio Monk PA-C 175 [facility] 300 [place] [address] Specialist Neurosurgery 04/07/22 Luis Armando Eller MD [address] [address] Specialist ORTHOPEDIC SURGERY 10/01/23 Jayesh Pineda MD 305 [place] [address] Specialist Endocrinology 10/01/23 Kelsi Tejada MD 305 [place] [address] Specialist Allergy & Immunology 10/01/23 Pretty Le MD 175 [facility] 200 [place] [phone] Specialist Pulmonology 10/01/23 Vesta Michael PA-C 300 [facility] 210 [place] [phone] Specialist Vascular Surgery 10/01/23 [facility] 46 [place], [place] [phone] Specialist Optometry 10/01/23 documented as of this encounter
--- OUTSIDE RECORDS SUMMARY | 2024-07-30 10:26 | XMS_ITS | Clinical Summary ---
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 Name Role Phone Ora Sweeney MD Primary Care Prov ider Allergies Active Allergy Reactions Criticality Noted Date Comments Animal Dander Sneezing 01/16/2024 Bee Pollen Shortness of breath High 05/03/2023 Other reaction(s): Not available Cat's Claw Runny nose 12/20/2016 Cefadroxil Swelling,Shortness of breath High 07/02/2012 Other Reaction(s): difficulty breathing/facial swelling Chocolate 01/06/2014 Sneezing and allergies Other Reaction(s): snezzing/runny nose Chocolate Flavor Sneezing 05/03/2023 Other reaction(s): Not available Dog Dander Sneezing 04/10/2016 House Dust Mite Sneezing 04/10/2016 Latex Hives 06/14/2020 Levonorgestrel-Ethinyl Estrad Unknown 05/03/2023 Other reaction(s): Not available Methylprednisolone Swelling,Shortness of breath High 07/02/2012 Other Reaction(s): edema Mold 04/10/2016 Monosodium Glutamate Swelling High 06/24/2024 anaphalaxis Nut - Unspecified Swelling 03/18/2013 Almonds Other Itching,Rash,Swelli ng High 10/30/2016 roaches Other Reaction(s): MSG edema Oxycodone GI intolerance 07/11/2017 Mood change Penicillins Shortness of breath,Swelling High 07/02/2012 Other Reaction(s): throat swelling/facial swelling Rabbit Epithelium Allergenic Extract 04/10/2016 rabbits Medications acetaminophen (TYLENOL 8 HOUR) 650 mg 8 hr tablet Take 1 Tablet by mouth 3 times daily as needed for Pain (mild pain). 03/06/20 Active albuterol 2.5 mg /3 mL (0.083 %) nebulizer solution every 8 (eight) hours if needed. 06/11/19 Active albuterol HFA (PROAIR HFA ; PROVENTIL HFA ; VENTOLIN HFA) 90 mcg/actuation inhaler Inhale 2 Puffs into the lungs every 6 hours as needed for Cough, Wheezing or Shortness of Breath for up to 363 days. 09/19/19 24 2024 Active ammonium lactate (LAC-HYDRIN) 12 % lotion Apply to soles of feet daily. At night wear socks to bed 11/14/19 Active azelastine HCl (ASTELIN NASL) 2 Sprays by Nasal route 2 times daily. Active blood-glucose meter misc Use to test blood sugars once daily in the morning, before breakfast. 03/03/20 Active cloNIDine (CATAPRES) 0.1 mg tablet TAKE 1/2-1 TABLET BY MOUTH TWICE A DAY NEEDED FOR ANXIETY- NEEDED AND TOLERATED 11/04/19 Active EPINEPHrine (EpiPen 2-Nehemiah) 0.3 mg/0.3 mL injection Inject 1 Device as directed as needed (anaphylaxis). Use as directed 07/13/19 Active fexofenadine (CRISTINA) 180 mg tablet Take 1 tablet by mouth daily. 11/17/19 Active UNABLE TO FIND Inhale into the lungs. [employer]-supplie s only Active FREESTYLE LANCETS MISC Use to test blood sugars once daily in the morning, before breakfast. 07/05/19 Active blood sugar diagnostic (FreeStyle Lite Strips) test strip Use to test blood sugars once daily in the morning, before breakfast. 11/28/19 23 Active ketoconazole (NIZORAL) 2 % cream Apply 1 Dose topically 2 times daily for 30 days. 07/23/19 Active montelukast (SINGULAIR) 10 mg tablet Take [...] (Tezspire) 210 mg/1.91 mL (110 mg/mL) injection Active traZODone (DESYREL) 100 mg tablet TAKE 1 TABLET EVERY NIGHT AT BEDTIME NEEDED CAN TAKE 1/2 TO ONE TABLET AT NIGHT TO HELP SLEEP 08/31/19 24 Active Trulicity 1.5 mg/0.5 mL pen injector injection Inject 0.5 mL (1.5 mg total) under the skin 1 (one) time per week. 01/10/20 24 Active cholecalcifero l (VITAMIN D-3) 125 mcg (5,000 unit) capsule Take 1 capsule (5,000 Units total) by mouth 1 (one) time each day. 01/01/20 24 Active triamcinolone (NASACORT) 55 mcg nasal inhaler INSTILL 1 TO 2 SPRAYS INTO EACH NOSTRIL ONCE DAILY. 11/19/19 24 Active Nucala 100 mg/mL auto-injector every 30 (thirty) days. TAKES ON SUNDAY'07/25/19 24 Active atorvastatin (LIPITOR) 20 mg tablet TAKE 1 TABLET BY MOUTH EVERY DAY 90 tablet 1 01/31/20 24 Active venlafaxine XR (EFFEXOR-XR) 37.5 mg 24 hr capsule 1 (one) time each day. 01/21/20 24 Active amLODIPine (NORVASC) 10 mg tablet TAKE 1 TABLET BY MOUTH EVERY DAY 90 tablet 1 02/13/20 24 Active predniSONE (DELTASONE) 20 mg tablet Take 60 mg PO daily for 3 days, then take 40 mg PO daily for 3 days, then 20 mg PO daily for 3 days, then stop 18 tablet 04/25/19 25 Active famotidine (PEPCID) 20 mg tablet TAKE 1 TABLET (20 MG) BY MOUTH TWICE A DAY NEEDED FOR HEARTBURN 90 tablet 1 05/07/19 25 Active levothyroxine (SYNTHROID, LEVOTHROID) 137 mcg tabletIndicati ons:Atrophy of thyroid (acquired) TAKE 1 TABLET BY MOUTH EVERY DAY 90 tablet 1 05/13/19 25 Active losartan (COZAAR) 100 mg tablet TAKE 1 TABLET BY MOUTH EVERY DAY 90 tablet 06/24/19 25 Active docusate sodium (COLACE) 100 mg capsule Take 1 capsule (100 mg total) by mouth 2 (two) times a day. 60 capsule 07/05/19 25 Active nitrofurantoin , macrocrystal-m onohydrate, (MACROBID) 100 mg capsule Take 1 capsule (100 mg total) by mouth 2 (two) times a day. 07/08/19 25 Active pantoprazole (PROTONIX) 40 mg EC tablet 07/18/19 25 Active albuterol HFA (Ventolin HFA) 90 mcg/actuation inhaler Inhale 2 Puffs into the lungs every 6 hours as needed for Cough or Wheezing. 08/28/19 24 2024 Discontinued(D uplicate order) betamethasone, augmented, (DIPROLENE-AF) 0.05 % cream APPLY TO AFFECTED AREAS IN THIN LAYER TWICE A DAY UNTIL RESOLVED. 05/09/19 24 2024 Discontinued(T herapy completed) fluticasone-um eclidinium-josefina anterol (Trelegy Ellipta) 100-62.5-25 mcg inhaler Inhale 1 Puff into the lungs daily for 363 days. 09/19/19 24 2024 Discontinued(T herapy completed) ketotifen (ZADITOR) 0.025 % ophthalmic solution ketotifen 0.025 % (0.035 %) eye drops 2024 Discontinued(T herapy completed) lidocaine (LIDODERM) 5 % patch Place 1 Patch onto the skin every 24 hours for 28 days. Apply for no more than 12 hours in any 24 hour period. B02.29 10/12/19 22 2024 Discontinued(T herapy completed) ibuprofen (ADVIL,MOTRIN) 800 mg tablet 12/06/19 24 2024 Discontinued(T herapy completed) ipratropium-al buteroL (DUONEB) 0.5-2.5 mg/3 mL nebulizer solutionIndica tions:Asthma-c hronic obstructive pulmonary disease overlap syndrome (CMS/HCC V24, CMS/HCC V28) Take 3 mL by nebulization 4 (four) times a day if needed for wheezing or shortness of breath. 360 mL 3 04/25/19 25 2024 Discontinued(T herapy completed) docusate sodium (COLACE) 100 mg capsule TAKE 1 CAPSULE BY MOUTH TWICE A DAY 60 capsule 06/05/19 25 2024 Discontinued(R eorder) sulfamethoxazo le-trimethopri m (BACTRIM DS,SEPTRA DS) 800-160 mg per tablet Take 1 tablet by mouth 2 (two) times a day for 5 days. 10 each 07/01/19 25 2024 Discontinued tamsulosin (FLOMAX) 0.4 mg 24 hr capsule Take 1 capsule (0.4 mg total) by mouth 1 (one) time each day for 14 days. Capsules should be taken 30 minutes following the same meal each day. 14 each 07/01/19 25 2024 ketorolac (TORADOL) 10 mg tablet Take 1 tablet (10 mg total) by mouth every 6 (six) hours if needed for moderate pain for up to 5 days. 20 tablet 07/01/19 25 2024 sulfamethoxazo le-trimethopri m (BACTRIM DS,SEPTRA DS) 800-160 mg per tablet Take 1 tablet by mouth 2 (two) times a day for 3 days. 6 each 07/10/19 25 2024 Active Problems Problem Noted Date Diagnosed Date [...] Asthma-chronic obstructive p ulmonary disease overlap syndrome (CMS/HCC V24, CMS/HCC V28) 01/30/2022 Diabetes mellitus (CMS/HCC V24, CMS/[facility] V28) Assessment & Plan (06/12/2024 4:05 PM EDT): DM good controlled on Trulicity. Will discuss possible switch to Mounjaro as per recommendation from weight management. Seasonal allergic conjunctivitis 01/30/2022 Palpitations 11/25/2021 Overview [...] on echo study from 08/2021 Pulmonary eosinophilia ([facility] V24) 07/14/2021 Hyperparathyroidism ([facility] V24) 03/09/2021 Diabetes mellitus type 2, co ntrolled, without complications ([facility] V24, [facility] V28) 02/16/2021 Assessment & Plan (01/24/2024 2:02 PM [...] Future Anxiety and depression 06/14/2020 Overview (12/16/2023): [facility] psychiatry Asthma, moderate persistent 05/10/2020 Overview [...] requirements Supply letter [facility] Return to clinic in 1 [...] Encounters Date Type Department Care Team Description 07/29/2024 9:30 AM EDT Nutrition Internal Medicine - [address] [phone] Controlled type 2 diabetes mellitus without complication, without long-term current use of insulin ([facility] V24, [facility] V28) (Primary Dx); Morbid obesity (CMS/[facility] V24, CMS/HCC V28) 07/22/2024 Telephone Adult Medicine [address] [phone] Ora Naylor MD Fever; Generalized Body Aches; Nausea 07/21/2024 8:40 AM EDT Office Visit Gastroenterology - [address] [phone] Alivia Dominguez NP Rectal bleeding (Primary Dx); History of adenomatous polyp of colon; Gastroesophageal reflux disease without esophagitis; Family history of colon cancer in mother 07/21/2024 Telephone Gastroenterology - [place] 175 [facility] 175 [facility] [address] [place] [address] Alivia Dominguez NP 07/14/2024 Telephone Adult Medicine [address] [phone] Ora Naylor MD notes 07/09/2024 3:20 PM EDT Anesthesia Event [facility] OR [address] [place] [phone] Lázaro Franco MD Spencer, Mark A, MD 07/09/2024 3:00 PM EDT - 07/09/2024 4:30 PM EDT Surgery [facility] OR [address] [place] [phone] Heriberto Rodriguez MD CYSTOSCOPY, LEFT URETEROSCOPY, LASER LITHOTRIPSY, STENT [[id number] (CPT??)] 07/09/2024 1:04 PM EDT - 07/09/2024 6:29 PM EDT Hospital Encounter [facility] OR [address] [place] [phone] Heriberto Rodriguez MD Discharge Disposition: Home or Self Care 07/09/2024 9:30 AM EDT Office Visit Endocrinology [address] [phone] Jayesh Pineda MD Type 2 diabetes mellitus with other specified complication, without long-term current use of insulin (CMS/HCC V24, CMS/HCC V28) (Primary Dx); Hyperparathyroidism (CMS/HCC V24); Hypothyroidism, unspecified type 07/09/2024 7:15 AM EDT - 07/09/2024 11:59 PM EDT Hospital Encounter [facility] Xray [address] [place] [phone] Pain Discharge Disposition: Home or Self Care 07/04/[address] [facility] [address] [facility] [place] [phone] Isabel Gray PA Dysuria 06/30/2024 2:25 PM EDT - 06/30/2024 9:42 PM EDT Emergency [facility] Emergency [address] [place] [phone] Nephrolithiasis (Primary Dx); Urinary tract infection without hematuria, site unspecified Discharge Disposition: Home or Self Care 06/30/2024 10:30 AM EDT Office Visit Orthopedic Surgery [facility] 160 175 [facility] 160 [place] [phone] Luis Armando Eller MD Post-operative state (Primary Dx); S/P left rotator cuff repair 06/30/2024 Telephone Adult [address] [phone] Ora Naylor MD Abdominal Pain; Urinary Frequency 06/24/2024 5:47 PM EDT - 06/24/2024 7:28 PM EDT Emergency [facility] Emergency [address] [place] [phone] Franki Reese MD Lower GI bleed (Primary Dx) Discharge Disposition: Home or Self Care 06/24/2024 Telephone Adult [address] [phone] Belia Kim MA Rectal Bleeding; Earache 06/12/2024 8:00 AM EDT Office Visit Adult [address] [phone] Ora Naylor MD Neck mass (Primary Dx); Type 2 diabetes mellitus with other specified complication, without long-term current use of insulin (CMS/HCC V24, CMS/HCC V28); Screening for depression 06/09/2024 1:00 PM EDT Consult Bariatric Surgery [facility] 175 [facility] 120 [place] [phone] Rose Park MD Class 3 severe obesity due to excess calories with serious comorbidity and body mass index (BMI) of 50.0 to 59.9 in adult ([facility] V24, [facility] V28) (Primary Dx) 06/09/2024 Telephone Adult Medicine [address] [phone] Ora Naylor MD chest mass 06/05/2024 9:45 AM EDT Office Visit Orthopedic [facility] 250 175 [facility] 250 [place] [phone] Duke Dunn DPM Controlled type 2 diabetes with neuropathy ([facility] V24, [facility] V28) (Primary Dx); PVD (peripheral vascular disease) ([facility] V24); Pain in both feet; Difficulty walking; Dermatophytosis, nail 06/04/2024 11:45 AM EDT Office Visit Orthopedic [facility] 160 175 [facility] 160 [place] [phone] Luis Armando Eller MD S/P left rotator cuff repair (Primary Dx) 05/05/2024 4:30 PM EST Office Visit Adult [address] [phone] Chuck Felix MD Sore throat (Primary Dx); Loss of voice 05/05/2024 Telephone Adult [address] [phone] Ora Naylor MD Sore Throat (/) from Last 3 Months Immunizations Name Administration [...] Date Site/Laterality Comments KNEE ARTHROSCOPY Right PROCEDURE: ME ARTHROSCOPY KNEE DIAGNOSTIC W/WO SYNOVIAL BX SPX WISDOM TOOTH EXTRACTION PROCEDURE: HISTORICAL WISDOM TEETH EXTRACTION TONSILLECTOMY PROCEDURE: HISTORICAL TONSILLECTOMY; COMMENT: and adenoids SECTION PROCEDURE: HISTORICAL DELIVERY OTHER SURGICAL HISTORY PROCEDURE: ME BIOPSY THYROID PERCUTANEOUS CORE NEEDLE COLONOSCOPY 12/10/2012 PROCEDURE: HISTORICAL COLONOSCOPY; COMMENT: normal; repeat in 3 yrs. sig. hyperplastic polyp OTHER SURGICAL HISTORY PROCEDURE: CYSTOSCOPY/SURG, URETHRA/BLAD NECK; COMMENT: sling procedure for stress incontinence OTHER SURGICAL HISTORY 08/25/2015 Right PROCEDURE: ME EXCISION NAIL MATRIX PERMANENT REMOVAL; COMMENT: right hallux Dr. Rangel COLONOSCOPY 01/31/2016 PROCEDURE: HISTORICAL COLONOSCOPY; COMMENT: 3 small polyps removed- dist.asc =tubular adenoma x 1; other nl tissue. COLONOSCOPY 09/29/2019 PROCEDURE: HISTORICAL COLONOSCOPY; COMMENT: 5 mm ascending colon polyp: Tubular adenoma. UPPER GASTROINTESTINAL ENDOSCOPY 09/29/2019 PROCEDURE: ME UPPER GI ENDOSCOPY PERFORMED; COMMENT: Visually normal on PPI treatment. ESOPHAGOGASTRODUODENOSCOPY 09/22/2021 PROCEDURE: ME EGD TRANSORAL BIOPSY SINGLE/MULTIPLE; COMMENT: EGD including biopsy normal OTHER SURGICAL HISTORY PROCEDURE: HISTORY OTHER; COMMENT: Maxillofacial surgery EXCISION BENIGN SKIN LESION TRUNK / ARM / LEG PROCEDURE: ME EXCISION TUMOR SOFT TISSUE BACK/FLANK SUBQ <3CM; [...] rotator cuff repair. Subacromial decompression. Labral debridement. 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 Stress incontinence DX:Stress in continence Migraines DX:Migraines Osteoarthritis DX:Osteoarthriti s/ BILATERAL KNEES Sleep apnea DX:Sleep apnea; COMMENT: using cpap [...] (BMI) of 40.0 to 44.9 in adult (CMS/HCC V24, CMS/HCC V28) 07/15/2019 DX:Class 3 severe obesity due to excess calories with serious comorbidity and body mass index (BMI) of 40.0 to 44.9 in adult (HCC) Diabetes mellitus type 2, co ntrolled, without complications (CMS/HCC V24, CMS/HCC V28) 02/16/2021 DX:Diabetes mellitus type 2, controlled, without complications (HCC) Mild concentric [...] left upper extremity Shingles DX:Shingles Diabetes mellitus (CMS/HCC V 24, [facility] V28) DX:Diabetes mellitus (HCC) HLD (hyperlipidemia) 11/21/2021 DX:HLD (hyp erlipidemia) VIRGIE on CPAP DX:VIRGIE on CPAP Depression DX:Depression Overactive bladder DX:Overactive bladder Obesity with alveolar hypove ntilation ([facility] V24, [facility] V28) DX:Obesity with alveolar hypoventilation (HCC) Morbid obesity with BMI of 4 0.0-44.9, adult ([facility] V24, [facility] V28) DX:Morbid obesity wit h BMI of 40.0-44.9, adult ([facility]) Asthma-chronic obstructive p ulmonary disease overlap syndrome ([facility] V24, [facility] V28) 01/30/2022 DX:Asthma-chronic obstructiv e pulmonary disease overlap syndrome ([facility]) Glaucoma Kidney stone on left side 06/2024 Dry skin BILATERAL LEGS/ USES PRESCRIBED CREAMS Adverse effect of anesthesia Shortness of breath Joint pain Family History Medical History Relation Name Comments Breast cancer Aunt 1 maternal x 1 Ovarian cancer Aunt 2 maternal x 6 6 maternal au nts also with ov, uterine ca Glaucoma Brother x 2 Coronary artery disease Father [place] a ge 68, HTN, Diabetes, cataract, glaucoma [...] for your loved ones. For example, director of early childhood education or elderly care for an older adult? [...] Orientation Straight 06/30/2024 2: 43 PM EDT Obstetrics History Last Filed Vital Signs Vital Sign Reading Time Taken Comments Blood Pressure 135/78 07/21/2024 8:39 AM EDT Pulse 82 07/21/2024 8:39 AM EDT Temperature 36.4 ??C (97.5 ??F) 07/09/2024 5:50 PM ED T Respiratory Rate 18 07/09/2024 5:50 PM EDT Oxygen Saturation 96% 07/21/2024 8:39 AM EDT Inhaled Oxygen Concentration - - Weight 121 kg (266 lb) 07/29/2024 11:24 AM EDT Height 160 cm (5' 3 ) 07/29/2024 11:24 AM EDT Body Mass Index 47.12 07/29/2024 11:24 AM EDT Plan of Treatment Upcoming Encounters Date Type Department Care Team (Late st Contact Info) Description 08/07/2024 9:30 AM EDT Office Visit Orthopedic Surgery - [place] [address] [phone] Duke Dunn DPM [address] [phone] 08/21/2024 8:30 AM EDT Appointment [facility] Endoscopy [address] [place] [phone] Dena Carrasco MD 175 [facility] 200 [place] [address] 08/22/2024 1:30 PM EDT Office Visit Obstetrics & Gynecology - [facility] [address] [place] [phone] Nguyen Crespo, KHURRAM [address] [place] [address] 09/08/2024 11:15 AM EDT Office Visit Endocrinology [address] [phone] Jayesh Pineda MD [address] [place] [address] 09/22/2024 8:45 AM EDT Office Visit Pulmonolgy - [place] [address] [phone] Pretty Le MD [address] [address] 10/01/2024 7:30 AM EDT Office Visit Adult Medicine [address] [phone] Paula Garnica PA [address] [place] [address] 12/05/2024 11:00 AM EDT Office Visit Orthopedic Surgery [address] [phone] Genny Arreguin PA [address] [place] [address] 12/09/2024 9:00 AM EDT Nutrition Internal Medicine [address] [phone] Bruna Caballero, RD [address] [place] [phone] 12/12/2024 8:30 AM EDT Office Visit Adult Medicine [address] [phone] Ora Sweeney MD [address] [place] [phone] Health Maintenance Due Date Last Done Comments Diabetes: Annual Retina Eye Exam 1968 RSV Immunization Adult Patients (1 - Risk 60-74 years 1-dose series) 2018 Zoster Vaccines (2 of 2) 02/23/2023 12/29/2022 COVID-19 Vaccine ( season) 2023 12/29/2022, 05/18/2021, 09/21/2020, Additional history exists Pneumococcal Vaccine: 50+ Years (2 of 2 - PCV) 01/16/2024 01/15/2023, 07/19/2017 Pneumococcal Vaccine: Pediatrics (0 to 5 Years) and At-Risk Patients (6 to 64 Years) (2 of 2 - PCV) 01/16/2024 01/15/2023, 07/19/2017 Diabetes: Blood Sugar Control Test (HGBA1C) 05/25/2024 11/26/2023, 11/26/2023, 09/26/2023 Colorectal Cancer Screening: Colonoscopy 09/28/2024 09/29/2019 Diabetes: Annual Foot Exam 09/30/2024 10/01/2023 Medicare Annual Wellness Visit 09/30/2024 10/01/2023 Diabetes: Annual Urine Albumin-Creatinine Ratio (uACR) 10/03/2024 10/04/2023 Influenza Vaccine (Season Ended) 2024 12/29/2022, 01/18/2018, 12/20/2016, Additional history exists Breast Cancer Screening 12/11/2024 12/12/19 23, 12/05/2021, 11/26/2020, Additional history exists Social Influencers of Health Screening 01/23/2025 01/24/2024 Depression Screening 06/11/2025 06/11/2024, 10/01/19 24 Diabetes: Annual GFR (Glomerular Filtration Rate) 06/30/2025 06/30/2024, 06/24/2024, 11/23/2023, Additional history exists Hypertension/CHF/CAD Annual BMP Blood Test 06/30/2025 06/30/2024, 06/24/2024, 11/23/2023, Additional history exists Falls Risk Assessment 07/09/2025 07/09/2024, 024 Cervical Cancer Screening: HPV 04/11/2026 04/11/2021 Cholesterol [...] age to complete this topic Meningococcal B Vaccine Aged Out No l onger eligible based on patient's age to complete this topic RSV Immunization Patients Under 20 months Aged Out No longer eligible based on patient's age to complete this topic Varicella Vaccines Aged Out No longer eligible based on patient's age to complete this topic Medical Devices Implanted Type Area Strong Nitric Operator Device Identifier Shelf Expiration Date Model / Serial / Lot Stent Uret Stretch Vl 7fr 22-3 - Sn/A - [id number] Implanted:Qty: 1 on 07/09/2024 by Heriberto Rodriguez MD at [facility] Stents Left: Ureter [employer]/GYNECOLG Y 11/18/2026 [id number] / N/A / [id number] Procedures Procedure Name Priority Date/Time Associated Diagnosis Comments POCT GLUCOSE BLOOD Routine 07/09/2024 4: 38 PM EDT OXYGEN THERAPY, ADULT Routine 07/09/2024 4:26 PM EDT OXYGEN THERAPY, ADULT Routine 07/09/2024 4:26 PM EDT XR UROGRAM RETROGRADE Routine 07/09/2024 4:17 PM EDT Pain TH AN LMA(NO CHARGE) Routine 07/09/2024 3:59 PM EDT ME CYSTO W URETEROSCOPY/PYELOSCO PY W LITHOTRIPSY INCL INDWELLING URTRL STNT 07/09/2024 3:25 PM EDT Calculus of kidney Case Notes C-ARM, HOLMIUM UMS POCT GLUCOSE BLOOD Routine 07/09/2024 1: 18 PM EDT BACTERIAL IDENTIFICATION AND SUSCEPTIBILITY, AEROBIC Routine 07/03/2024 12:[address] ABDOMEN PELVIS W CONTRAST STAT 06/30/2024 7:45 PM EDT ALTAMIRANO URINE CULTURE TUBE STAT 06/30/2024 6:27 PM EDT URINALYSIS WITH REFLEX MICROSCOPIC AND CULTURE STAT 06/30/2024 6:27 PM EDT URINALYSIS WITH REFLEX MICROSCOPIC AND CULTURE STAT 06/30/2024 6:27 PM EDT CULTURE URINE STAT 06/30/2024 6:27 PM EDT TYPE AND SCREEN STAT 06/30/2024 1:38 PM EDT CBC WITH AUTO DIFFERENTIAL STAT 06/30/2024 12:29 PM EDT COMPREHENSIVE METABOLIC PANEL STAT 06/30/2024 12:29 PM EDT CBC AND DIFFERENTIAL STAT 06/30/2024 12:29 PM EDT XR SHOULDER 2+ VIEWS LEFT Routine 06/30/2024 10:16 AM EDT Pain ALTAMIRANO URINE CULTURE TUBE Routine 06/24/2024 6:35 PM EDT EXTRA TUBES Routine 06/24/2024 6:35 PM EDT URINALYSIS WITH REFLEX MICROSCOPIC STAT 06/24/2024 6:00 PM EDT URINALYSIS WITH REFLEX MICROSCOPIC STAT 06/24/2024 6:00 PM EDT CBC WITH AUTO DIFFERENTIAL STAT 06/24/2024 1:10 PM EDT TYPE AND SCREEN STAT 06/24/2024 1:10 PM EDT COMPREHENSIVE METABOLIC PANEL STAT 06/24/2024 1:10 PM EDT CBC AND DIFFERENTIAL STAT 06/24/2024 1:10 PM EDT EXTERNAL ULTRASOUND REPORT Routine 05/20/2024 12:53 PM EDT POC RAPID STREP A Routine 05/05/2024 4:5 9 PM EST Sore throat HEMOGLOBIN A1C Routine 11/26/2023 URINE ALBUMIN CREATININE RATIO Routine 10/04/2023 LIPID PANEL Routine 10/04/2023 DEPRESSION SCREENING Routine 10/01/2023 FALLS RISK ASSESSMENT Routine 10/01/2023 DIABETES FOOT EXAM Routine 10/01/2023 SCREENING MAMMOGRAPHY BI 2-VIEW BREAST INC CAD Routine 12/11/2022 10:44 AM EDT Encounter for screening mammogram for malignant neoplasm of breast HPV Routine 04/11/2021 DXA BONE DENSITY STUDY 1+ SITS AXIAL SKEL Routine 03/31/2021 9:28 AM EST Hyperparathyroidi sm, unspecified (CMS/HCC V24) COLONOSCOPY Routine 09/29/2019 HEPATITIS C SCREENING Routine 09/22/2014 from Last 3 Months or Most Recently Relevant to Health Maintenance Results * (ABNORMAL) POCT Glucose, blood (07/09/2024 4:38 PM EDT) Only the most recent of2 resultswithin the time period is included. Glucose POCT 172(H) 70 - 100 mg/dL 07/09/2024 4:38 PM EDT [facility] Blood Capillary blood specimen / Unknown 07/09/2024 4:38 PM EDT 07/09/2024 4:40 PM EDT us Heriberto Rodriguez MD LAB POINT OF CARE TE ST DOCKED DEVICE UNSOLICITED RESULTS Final Result [facility] [facility] [address] [place] [address], [place] [phone] * XR Urogram Retrograde (07/09/2024 4:17 PM EDT) Anatomical Region Laterality Modality Body Radio Fluoroscop y 07/09/2024 4:33 PM EDT Impressions 07/09/2024 4:34 PM EDT Impression: 1. Intraoperative images of the abdomen. 2. Fluoroscopy provided in the OR. [place] -------- FINAL REPORT -------- Dictated By: Holley Wheeler Dictated Date: 07/09/2024 16:33 ET Assigned Physician: Holley Wheeler Reviewed and Electronically Signed By: Holley Wheeler Signed Date: 07/09/2024 16:34 ET Workstation ID: [id number] Transcribed By: Self Edit Transcribed Date: 07/09/2024 16:33 ET Narrative 07/09/2024 4:34 PM EDT Findings: Digital spot images of the abdomen are submitted from the OR, used intraoperatively by Dr. rhoades during a urological procedure. No radiologist was in attendance. Fluoroscopy was provided in the OR by a chemical engineering technologist. Cumulative Air Kerma: 6.37 mGy Procedure Note Holley Wheeler MD - 07/09/2024 Findings: Digital spot images of the abdomen are submitted from the OR, usedintraoperatively by Dr. rhoades during a urological procedure. Noradiologist was in attendance. Fluoroscopy was provided in the OR by a chemical engineering technologist. Cumulative Air Kerma: 6.37 mGy IMPRESSION: Impression: 1. Intraoperative images of the abdomen. 2. Fluoroscopy provided in the OR. [place] -------- FINAL REPORT -------- Dictated By: Holley Wheeler Dictated Date: 07/09/2024 16:33 ET Assigned Physician: Holley Wheeler Reviewed and Electronically Signed By: Holley Wheeler Signed Date: 07/09/2024 16:34 ET Workstation ID: [id number] Transcribed By: Self Edit Transcribed Date: 07/09/2024 16:33 ET us Heriberto Rodriguez MD IMG FLUOROSCOPY PROCEDURES Final Result * TH AN LMA(NO CHARGE) (07/09/2024 3:59 PM EDT) Gloria Murcia CRNA - 07/09/2024 3:59 PM EDT Gloria Boyle CRNA ? 07/09/2024 ??4:01 PM General Information and Staff Patient location during procedure: OR Performed by: Gloria Boyle CRNA Authorized by: Lázaro Franco MD ?? Intubation Additional Comments Attempted intubation c Michael 3. ??Unable to easily elevate tongue to obtain view. ??Dr. Franco agreed to pivot to LMA 4. ?? Placed without difficulty. ?? Gauze bite block placed. ?? Urgency: elective Final Airway Details LMA Size: 4 LMA Type: LMA Seal Pressure: Final airway type: LMA Indications and Patient Condition Indications for airway management: anesthesia Soft Tissue Damage: No Dentition Unchanged: Yes Patient position: neutral Mask difficulty assessment: 1 - vent by mask us Lázaro Franco MD ANESTHESIA ORDERABLES Final Re sult * (ABNORMAL) Bacterial identification and susceptibility, aerobic (07/03/2024 12:00 AM EDT) Culture, Bacterial ID and Sensitivity Enterococcus faecalis(A) AARON 07/05/2024 9:20 AM EDT [facility] ([facility] Comment: Edited result: Previously reported as Enterococcus species on 07/04/2024 at 1100 EDT. Other Urine specimen from urethra / Unknown 07/03/2024 07/04/2024 10:23 AM EDT Narrative [facility] ([facility]) [facility] - 07/05/2024 9:20 AM EDT Additional colony types present in insignificant amounts. Organism Antibiotic Method Susceptibility Enterococcus faecalis Benzylpenicillin AARON 8 ug/ml: Susceptible Enterococcus faecalis Ampicillin AARON <=2 ug/ml: Susceptible Enterococcus faecalis Ciprofloxacin AARON >=8 ug/ml: Resistant Enterococcus faecalis Levofloxacin AARON >=8 ug/ml: Resistant Enterococcus faecalis Linezolid AARON 2 ug/ml: Susceptible Enterococcus faecalis Vancomycin AARON 1 ug/ml: Susceptible Enterococcus faecalis Tetracycline AARON >=16 ug/ml: Resistant Enterococcus faecalis Nitrofurantoin AARON <=16 ug/ml: Susceptible us Isabel NOVAK LAB MICROBIOLOGY - GENERAL ORDER ARELIS Final Result [facility] [address] [place] [address], * CT Abdomen Pelvis w Contrast (06/30/2024 7:45 PM EDT) Anatomical Region Laterality Modality Body Computed Tomogra phy 06/30/2024 8:22 PM EDT Impressions 06/30/2024 8:22 PM EDT Impression: 3 mm distal left ureteral stone with hydronephrosis This document has been electronically signed by: Ivan Ann MD on 06/30/2024 20:22:20 Narrative 06/30/2024 8:22 PM EDT INDICATION: Flank pain, kidney stone suspected CT abdomen and pelvis with contrast Comparison: None Findings: Lung bases are clear. No acute bony abnormalities. Hepatomegaly with fatty infiltration of the liver. No focal abnormalities in liver or spleen. Pancreas and adrenal glands unremarkable. Gallbladder is within normal limits. Bilateral nonobstructing renal stones. No right ureteral stone or hydronephrosis. Bilateral renal cysts noted. 3 mm distal left ureteral stone with hydronephrosis. Stone is 4 cm proximal to left UVJ. Abdominal aorta is normal in caliber. No free fluid or adenopathy in the pelvis. No diverticulitis. Appendix unremarkable. Uterus normal size. No adnexal abnormality. Procedure Note Ivan Ann MD - 06/30/2024 INDICATION: Flank pain, kidney stone suspected CT abdomen and pelvis with contrast Comparison: None Findings: Lung bases are clear. No acute bony abnormalities. Hepatomegaly with fatty infiltration of the liver. No focal abnormalities in liver or spleen. Pancreas and adrenal glands unremarkable. Gallbladder is within normal limits. Bilateral nonobstructing renal stones. No right ureteral stone or hydronephrosis. Bilateral renal cysts noted. 3 mm distal left ureteral stone with hydronephrosis. Stone is 4 cm proximal to left UVJ. Abdominal aorta is normal in caliber. No free fluid or adenopathy in the pelvis. No diverticulitis. Appendix unremarkable. Uterus normal size. No adnexal abnormality. IMPRESSION: Impression: 3 mm distal left ureteral stone with hydronephrosis This document has been electronically signed by: Ivan Ann MD on 06/30/2024 20:22:20 us Linda NOVAK IMG CT PROCEDURES Final Re sult * (ABNORMAL) Urinalysis with reflex microscopic and culture (06/30/2024 6:27 PM EDT) Specific [place] Urine 1.009 1.003 - 1.030 LAB URINALYSIS - AUTOMATED METHOD 06/30/2024 7:22 PM [facility] pH, Urine 7.0 5.0 - 8.0 pH LAB URINALYSIS - AUTOMATED METHOD 06/30/2024 7:22 PM [facility] Leukocytes, Urine Large(A) Negative LAB URINALYSIS - AUTOMATED METHOD 06/30/2024 7:22 PM [facility] Nitrite, Urine Negative Negative LAB URINALYSIS - AUTOMATED METHOD 06/30/2024 7:22 PM [facility] Protein, Urine Trace <=Trace mg/dL LAB URINALYSIS - AUTOMATED METHOD 06/30/2024 7:22 PM [facility] Glucose, Urine Negative Negative mg/dL LAB URINALYSIS - AUTOMATED METHOD 06/30/2024 7:22 PM [facility] Ketones, Urine Negative Negative mg/dL LAB URINALYSIS - AUTOMATED METHOD 06/30/2024 7:22 PM [facility] Urobilinogen , Urine 0.2 0.2 - 1.0 mg/dL LAB URINALYSIS - AUTOMATED METHOD 06/30/2024 7:22 PM [facility] Bilirubin, Urine Negative Negative LAB URINALYSIS - AUTOMATED METHOD [facility] Blood, Urine Large(A) Negative LAB URINALYSIS - AUTOMATED METHOD 06/30/2024 7:22 PM [facility] RBC, Urine 9.9(H) 0 - 4 /HPF LAB URINALYSIS - AUTOMATED METHOD 06/30/2024 7:22 PM [facility] WBC, Urine 123.6(H) 0 - 4 /HPF LAB URINALYSIS - AUTOMATED METHOD 06/30/2024 7:22 PM [facility] Squamous Epithelial, Urine 17 0 - 60 /LPF LAB URINALYSIS - AUTOMATED METHOD 06/30/2024 7:22 PM [facility] Bacteria, Urine Moderate(A) Negative /HPF LAB URINALYSIS - AUTOMATED METHOD 06/30/2024 7:22 PM [facility] Hyaline Casts, Urine 3.6(H) 0 - 3 /LPF LAB URINALYSIS - AUTOMATED METHOD 06/30/2024 7:22 PM [facility] Urine Urine specimen obtained by clean catch procedure / Unknown Non-blood Collection / Unknown 06/30/2024 6:27 PM EDT 06/30/2024 7:04 PM EDT us Linda NOVAK LAB URINE ORDERABLES Final Result [facility] [address] [place] [address], * [place] urine culture tube (06/30/2024 6:27 PM EDT) Only the most recent of2 resultswithin the time period is included. [facility] Extra Tube Hold for add-ons. 06/30/2024 9:01 PM EDT [facility] Comment:Auto resulted. Urine Urine specimen obtained by clean catch procedure / Unknown Non-blood Collection / Unknown 06/30/2024 6:27 PM EDT 06/30/2024 7:05 PM EDT Linda NOVAK LAB URINE ORDERABLES Final Result Performing Organization Address City/[facility]/ZIP Co de Phone Number [facility] [address] [place] [address], [place] [phone] * (ABNORMAL) Culture urine (06/30/2024 6:27 PM EDT) [facility] Culture, Urine >100,000 CFU/mL Streptococcus beta-hemolytic Group B(A) 07/01/2024 1:40 PM EDT [facility] Comment: Susceptibility testing is not routinely performed for Beta Streptococcus isolates since these organisms are predictably sensitive to Penicillin. If the Patient is not responding, is allergic to Penicillin, or further therapeutic information is requir ed, please consult an Infectious Disease Specialist. Urine Urine specimen obtained by clean catch procedure / Unknown Non-blood Collection / Unknown 06/30/2024 6:27 PM EDT 06/30/2024 7:22 PM EDT Linda NOVAK LAB MICROBIOLOGY - GENERAL ORDERABLES Final Result [facility] [address] [place] [address], [place] [phone] * Type and screen (06/30/2024 1:38 PM EDT) Only the most recent of2 resultswithin the time period is included. [facility] ABO Group A 06/30/2024 2:40 PM EDT [facility] Rh Type Positive 06/30/2024 2:40 PM EDT [facility] Antibody Screen Negative 06/30/2024 2:40 PM EDT [facility] Blood Venous blood specimen / Unknown Venipuncture / Unknown 06/30/2024 1:38 PM EDT 06/30/2024 1:45 PM EDT us Luis Armando Martinez MD LAB BLOOD BANK TEST ORDERABLES Final Result [facility] [address] [place] [address], [place] [phone] * (ABNORMAL) CBC auto differential (06/30/2024 12:29 PM EDT) Only the most recent of2 resultswithin the time period is included. WBC 7.5 4.8 - 10.8 K/mcL LAB HEMETOLOGY METHOD 06/30/2024 1:33 PM EDT [facility] RBC 4.70 3.80 - 4.80 M/mcL LAB HEMETOLOGY METHOD 06/30/2024 1:33 PM EDT [facility] Hemoglobin 13.0 11.5 - 16.0 g/dL LAB HEMETOLOGY METHOD 06/30/2024 1:33 PM EDT [facility] Hematocrit 39.5 35.0 - 47.0 % LAB HEMETOLOGY METHOD 06/30/2024 1:33 PM EDT [facility] MCV 83.9 79.0 - 98.0 FL LAB HEMETOLOGY METHOD 06/30/2024 1:33 PM [facility] MCH 27.6 27.0 - 32.0 pcg LAB HEMETOLOGY METHOD 06/30/2024 1:33 PM EDT [facility] MCHC 32.9 32.0 - 37.0 g/dL LAB HEMETOLOGY METHOD 06/30/2024 1:33 PM [facility] RDW 14.2 11.0 - 15.0 % LAB HEMETOLOGY METHOD 06/30/2024 1:33 PM [facility] Platelets 199 130 - 400 K/mcL LAB HEMETOLOGY METHOD 06/30/2024 1:33 PM [facility] MPV 11.3(H) 7.0 - 11.0 FL LAB HEMETOLOGY METHOD 06/30/2024 1:33 PM [facility] NRBC 0.0 <1.0 % LAB HEMETOLOGY METHOD 06/30/2024 1:33 PM [facility] NRBC Absolute 0.00 <0.10 K/mcL LAB HEMETOLOGY METHOD 06/30/2024 1:33 PM [facility] Neutrophils Relative 68.3 % LAB HEMETOLOGY METHOD 06/30/2024 1:33 PM [facility] Lymphocytes Relative 22.5 % LAB HEMETOLOGY METHOD 06/30/2024 1:33 PM [facility] Monocytes Relative 5.6 % LAB HEMETOLOGY METHOD 06/30/2024 1:33 PM [facility] Eosinophils Relative 2.1 % LAB HEMETOLOGY METHOD 06/30/2024 1:33 PM [facility] Basophils Relative 0.7 % LAB HEMETOLOGY METHOD 06/30/2024 1:33 PM [facility] Immature Granulocytes Relative 0.8 % LAB HEMETOLOGY METHOD 06/30/2024 1:33 PM [facility] Neutrophils Absolute 5.12 1.50 - 7.00 K/mcL LAB HEMETOLOGY METHOD 06/30/2024 1:33 PM [facility] Lymphocytes Absolute 1.69 1.00 - 5.00 K/mcL LAB HEMETOLOGY METHOD 06/30/2024 1:33 PM EDT [facility] Monocytes Absolute 0.42 0.20 - 1.00 K/mcL LAB HEMETOLOGY METHOD 06/30/2024 1:33 PM EDT [facility] Eosinophils Absolute 0.16 0.00 - 0.50 K/mcL LAB HEMETOLOGY METHOD 06/30/2024 1:33 PM EDT [facility] Basophils Absolute 0.05 0.00 - 0.20 K/[facility] LAB HEMETOLOGY METHOD 06/30/2024 1:33 PM EDT [facility] Immature Granulocytes Absolute 0.06(H) 0.00 - 0.03 K/[facility] LAB HEMETOLOGY METHOD 06/30/2024 1:33 PM EDT [facility] Blood Venous blood specimen / Unknown Venipuncture / Unknown 06/30/2024 12:29 PM EDT 06/30/2024 1:17 PM EDT us Luis Armando Martinez MD LAB BLOOD ORDERABLES Final Resu lt [facility] [address] [place] [address], [place] [phone] * (ABNORMAL) Comprehensive metabolic panel (06/30/2024 12:29 PM EDT) Only the most recent of2 resultswithin the time period is included. Sodium 140 133 - 145 mmol/L LAB CHEMISTRY METHOD 06/30/2024 2:14 PM EDT [facility] Potassium 3.8 3.5 - 5.5 mmol/L LAB CHEMISTRY METHOD 06/30/2024 2:14 PM EDT [facility] Chloride 103 96 - 110 mmol/L LAB CHEMISTRY METHOD 06/30/2024 2:14 PM EDT [facility] CO2 27 21 - 32 mmol/L LAB CHEMISTRY METHOD 06/30/2024 2:14 PM [facility] Anion Gap 10 3 - 11 LAB CHEMISTRY METHOD 06/30/2024 2:14 PM [facility] Glucose 274(H) 70 - 100 mg/dL LAB CHEMISTRY METHOD 06/30/2024 2:14 PM [facility] BUN 10 5 - 25 mg/dL LAB CHEMISTRY METHOD 06/30/2024 2:14 PM [facility] Creatinine 0.89 0.50 - 1.10 mg/dL LAB CHEMISTRY METHOD 06/30/2024 2:14 PM [facility] eGFR 72 >=60 mL/min/1. 73m2 LAB CHEMISTRY METHOD 06/30/2024 2:14 PM [facility] Comment:Calculation based on the??Chronic Kidney Disease Epidemiology Collaboration (CKD-EPI) equation refit??without adjustment for race. BUN/Creatinine Ratio 11.2 LAB CHEMISTRY METHOD 06/30/2024 2:14 PM [facility] Calcium 9.3 8.5 - 10.5 mg/dL LAB CHEMISTRY METHOD 06/30/2024 2:14 PM [facility] AST (SGOT) 41 10 - 42 unit/L LAB CHEMISTRY METHOD 06/30/2024 2:14 PM [facility] ALT (SGPT) 64(H) 10 - 60 unit/L LAB CHEMISTRY METHOD 06/30/2024 2:14 PM [facility] Alkaline Phosphatase 182(H) 42 - 121 unit/L LAB CHEMISTRY METHOD 06/30/2024 2:14 PM [facility] Total Protein 7.1 6.0 - 8.0 g/dL LAB CHEMISTRY METHOD 06/30/2024 2:14 PM [facility] Albumin 3.5 3.2 - 5.0 g/dL LAB CHEMISTRY METHOD 06/30/2024 2:14 PM [facility] Total Bilirubin 0.7 0.0 - 1.4 mg/dL LAB CHEMISTRY METHOD 06/30/2024 2:14 PM EDT [facility] Blood Venous blood specimen / Unknown Venipuncture / Unknown 06/30/2024 12:29 PM EDT 06/30/2024 1:17 PM EDT us Luis Armando Martinez MD LAB BLOOD ORDERABLES Final Resu lt [facility] [address] [place] [address], [place] [phone] * XR Shoulder 2+ Views Left (06/30/2024 10:16 AM EDT) Anatomical Region Laterality Modality Upper Extremities, Shoulder Left Comp uted Radiography Narrative 06/30/2024 10:36 AM EDT Shoulder x-rays June 30, 2024. ??AP, Grashey, Y lateral, axillary views. ?? No acute osseous abnormalities. ??Postsurgical changes. ??Good preservation of the glenohumeral articular cartilage. us Luis Armando Eller MD IMG XR PROCEDURES Final Result * (ABNORMAL) Urinalysis with reflex microscopic (06/24/2024 6:00 PM EDT) Specific [place] Urine 1.015 1.003 - 1.030 LAB URINALYSIS - AUTOMATED METHOD 06/24/2024 6:47 PM EDT [facility] pH, Urine 6.5 5.0 - 8.0 pH LAB URINALYSIS - AUTOMATED METHOD 06/24/2024 6:47 PM EDT [facility] Leukocytes, Urine Moderate(A) Negative LAB URINALYSIS - AUTOMATED METHOD 06/24/2024 6:47 PM EDT [facility] Nitrite, Urine Positive(A) Negative LAB URINALYSIS - AUTOMATED METHOD 06/24/2024 6:47 PM EDT [facility] Protein, Urine Negative <=Trace mg/dL LAB URINALYSIS - AUTOMATED METHOD 06/24/2024 6:47 PM [facility] Glucose, Urine Negative Negative mg/dL LAB URINALYSIS - AUTOMATED METHOD 06/24/2024 6:47 PM [facility] Ketones, Urine Negative Negative mg/dL LAB URINALYSIS - AUTOMATED METHOD 06/24/2024 6:47 PM [facility] Urobilinogen , Urine 0.2 0.2 - 1.0 mg/dL LAB URINALYSIS - AUTOMATED METHOD 06/24/2024 6:47 PM [facility] Bilirubin, Urine Negative Negative LAB URINALYSIS - AUTOMATED METHOD 06/24/2024 6:47 PM [facility] Blood, Urine Trace(A) Negative LAB URINALYSIS - AUTOMATED METHOD 06/24/2024 6:47 PM [facility] RBC, Urine 7.7(H) 0 - 4 /HPF LAB URINALYSIS - AUTOMATED METHOD 06/24/2024 6:47 PM [facility] WBC, Urine 36.6(H) 0 - 4 /HPF LAB URINALYSIS - AUTOMATED METHOD 06/24/2024 6:47 PM [facility] Squamous Epithelial, Urine 23 0 - 60 /LPF LAB URINALYSIS - AUTOMATED METHOD 06/24/2024 6:47 PM [facility] Bacteria, Urine Moderate(A) Negative /HPF LAB URINALYSIS - AUTOMATED METHOD 06/24/2024 6:47 PM [facility] Hyaline Casts, Urine 0.8 0 - 3 /LPF LAB URINALYSIS - AUTOMATED METHOD 06/24/2024 6:47 PM [facility] Urine Urine specimen obtained by clean catch procedure / Unknown Non-blood Collection / Unknown 06/24/2024 6:00 PM EDT 06/24/2024 6:32 PM EDT Result [facility] Luis Armando Martinez MD LAB URINE ORDERABLES Final Resu lt [facility] ([facility]) [facility] [address] [place] [address], [place] [phone] * External Ultrasound Report (05/20/2024 12:53 PM EDT) Anatomical Region Laterality Modality Ultrasound Result [facility] Historical Provider IMG US PROCEDURES Final R esult * POC rapid strep A manually resulted (05/05/2024 4:59 PM EST) [facility] Rapid Strep A Screen POC Negative Negative Swab Structure of anterior portion of neck / Unknown 05/05/2024 4:59 PM EST Result [facility] Chuck Felix MD POINT OF CARE TEST ENTER/EDIT OR DERABLES Edited Result - Final * (ABNORMAL) Hemoglobin A1c (11/26/2023) [facility] Hemoglobin A1C 7.4(A) <=6.5 % Blood Venous blood specimen / Unknown Result [facility] Historical Provider LAB BLOOD ORDERABLES Soni l Result * Urine Albumin Creatinine Ratio (10/04/2023) [facility] Urine Albumin Creatinine Ratio Abstracted Result [facility] Historical Provider HEALTH MAINTENANCE Final Result * (ABNORMAL) Lipid panel (10/04/2023) [facility] LDL/HDL Ratio 4 0 - 4 Triglycerides 173(A) 0 - 150 mg/dL Cholesterol 146 0 - 200 mg/dL HDL 39(A) >=40 mg/dL LDL Cholesterol 73 0 - 100 mg/dL Blood Venous blood specimen / Unknown Result [facility] Historical Provider LAB BLOOD ORDERABLES Soni l Result * Falls Risk Assessment (10/01/2023) [facility] Falls Risk Assessment Abstracted [facility] Provider [facility] Final Result * Depression Screening (10/01/2023) Pathologist [facility] Depression Screening Abstracted [facility] Provider [facility] Final Result * Diabetes Foot Exam (10/01/2023) Pathologist [facility] Diabetes: Annual Foot Exam Abstracted [facility] Final Result * SCREENING MAMMOGRAPHY BI 2-VIEW [...] * Cervical Cancer Screening: HPV (04/11/2021) Pathologist [facility] Cervical Cancer Screening: HPV No interpreta tion,abstr [...] PROCEDURES Final Result * Colonoscopy (09/29/2019) Pathologist [facility] Colonoscopy No interpreta tion,abstr acted Anatomical Region Laterality Modality Other Result [facility] Historical Provider HEALTH MAINTENANCE Final Result * Hepatitis C Screening (09/22/2014) [facility] Hepatitis C Screening Abstracted Historical Provider HEALTH MAINTENANCE Final Result from Last 3 Months or Most Recently Relevant to Health Maintenance Insurance [employer]AGE Care Teams [employer] Relationship Specialty Start Date End Date Ora Sweeney MD [address] [place] [id number] PCP - General Internal Medicine 01/09/24
--- OUTSIDE RECORDS SUMMARY | 2024-07-30 10:26 | XMS_ITS | Encounter Summary ---
Author Organization [facility] Address [address] [place] [address] Care Team Providers Care Court Advocate Name Role Phone Geno Cueva MD Primary Care Provider Unavailable Teressa Solis DO Primary Care Pro vider Unavailable Mina Pretty DO Primary Care Provider Ailyn Shweta Pretty MD Primary Care Provider Ora Diaz MD Primary Care Prov ider Jl Mendez MD Unavailable Jannette Boudreaux MD Unavailable [phone] Tenisha Mendieta PA-C Unavailable Julio Monk PA-C Unavailable Luis Armando Eller MD Unavailable [phone] Jayesh Pineda MD Unavailable Kelsi Tejada MD Unavailable Unavailable Pretty Le MD Unavailable Vesta Michael-Pina Unavailable [phone] [facility] Unavailable [phone] Encounter Details Date Type Department Care Team Description 01/02/2013 Hospital Medical Records [address] [place] [address] Zoltan Chu Social History Tobacco Use Types Packs/Day Years Used Date Smoking Tobacco: Never Smokeless Tobacco: Never Alcohol Use Standard Drinks/Week Comments No 0 (1 standard drink = 0.6 oz pur e alcohol) Education Answer Date Recorded What is the highest level of school you have completed or the highest degree you have received? 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) 06/14/2020 Sex Assigned at Date Recorded Female 08/03/2020 10:16 PM EDT Job Start Date Occupation Industry Not on file Not on file Not on file documented as of this encounter Plan of Treatment Not on file documented as of this encounter Visit Diagnoses Not on filedocumented in this encounter Care Teams Court Advocate Relationship Specialty Start Date End Date Geno Cueva MD PCP - General Internal Medicine 06/28/1212/17/13 Teressa Solis, DO PCP - General Internal Medicine 12/18/13 09/15/20 Mina Pretty, PCP - General Internal Medicine 09/16/20 1 Shweta Tellez MD PCP - General Internal Medicine 01/12/21 10/10/21 Ora Ronquillo MD [address] [place] [address] PCP - General Internal Medicine 10/11/21 Jl Mendez MD [address] [place] [address] Dr Mont[address] [place] [address] Specialist Cardiovascular Disease 10/13/21 Jannette Boudreaux MD [address] [address] Surgeon Neurosurgery 04/07/22 Tenisha Mendieta PA-C [address] [address] Specialist Neurosurgery 04/07/22 Julio Monk PA-C 175 [facility] [address] [place] [address] Specialist Neurosurgery 04/07/22 Luis Armando Eller MD [address] [address] Specialist ORTHOPEDIC SURGERY 10/01/23 Jayesh Pineda MD 305 [place] [address] Specialist Endocrinology 10/01/23 Kelsi Tejada MD 305 [place] [address] Specialist Allergy & Immunology 10/01/23 Pretty Le MD 175 [facility] [address] [place] [address] Specialist Pulmonology 10/01/23 Vesta Michael PA-C 300 [facility] 210 [place] [address] Specialist Vascular Surgery 10/01/23 [facility] [address] [place] [address] Specialist Optometry 10/01/23 documented as of this encounter
--- OUTSIDE RECORDS SUMMARY | 2024-07-30 10:26 | XMS_ITS | Encounter Summary ---
Author Organization [facility] Address [address] [place] [address] Care Team Providers Care Dry Roaster Name Role Phone Geno Cueva MD Primary Care Provider Unavailable Teressa Solis DO Primary Care Pro vider Unavailable Mina Pretty DO Primary Care Provider Ailyn Shweta Pretty MD Primary Care Provider Ora Diaz MD Primary Care Prov ider Jl Mendez MD Unavailable [phone] Jannette Boudreaux MD Unavailable [phone] Tenisha MendietaC Unavailable [phone] Julio MonkC Unavailable [phone] Luis Armando Eller MD Unavailable [phone] Jayesh Pineda MD Unavailable Kelsi Tejada MD Unavailable Unavailable Pretty Le MD Unavailable Vesta Michael PA-C Unavailable [phone] [facility] Unavailable [phone] Encounter Details Date Type Department Care Team Description 09/27/2012 Putty Mixer And Applier Report Medical Records [address] [place] [address] [place] P[place] Social History Tobacco Use [...] filedocumented in this encounter Care Teams Dry Roaster Relationship Specialty Start Date End Date Geno Cueva MD PCP - General Internal Medicine 06/28/1212/17/13 Teressa Solis, PCP - General Internal Medicine 12/18/13 09/15/20 Mina Pretty DO PCP - General Internal Medicine 09/16/20 1 Shweta Tellez MD PCP - General Internal Medicine 01/12/21 10/10/21 Ora Ronquillo MD [address] [place] [address] PCP - General Internal Medicine 10/11/21 Jl Mendez MD [address] [place] [address] Dr Mont[address] [place] [address] Specialist Cardiovascular Disease 10/13/21 Jannette Boudreaux MD [address] [address] Surgeon Neurosurgery 04/07/22 Tenisha Mendieta PA-C [address] [address] Specialist Neurosurgery 04/07/22 Julio Monk PA-C [address] [address] Specialist Neurosurgery 04/07/22 Luis Armando Eller MD [address] [address] Specialist ORTHOPEDIC SURGERY 10/01/23 Jayesh Pineda MD [address] [place] [address] Specialist Endocrinology 10/01/23 Kelsi Tejada MD 305 [place] [address] Specialist Allergy & Immunology 10/01/23 Pretty Le MD 175 [facility] [address] [place] [address] Specialist Pulmonology 10/01/23 Vesta Michael PA-C 300 [facility] [address] [place] [address] Specialist Vascular Surgery 10/01/23 [facility] 46 [place], [place] [address] Specialist Optometry 10/01/23 documented as of this encounter
--- OUTSIDE RECORDS SUMMARY | 2024-07-30 10:26 | XMS_ITS | Encounter Summary ---
Author Organization [facility] Address [address] [place] [address] Care Team Providers Care Profile Mill Operator Tape Control Name Role Phone Ora Ronquillo MD Primary Care Prov ider Jl Mendez MD Unavailable Jannette Boudreaux MD Unavailable [phone] Tenisha Mendieta PA-C Unavailable [phone] Julio MonkC Unavailable Luis Armando Eller MD Unavailable [phone] Jayesh Pineda MD Unavailable Kelsi Tejada MD Unavailable Unavailable Pretty Le MD Unavailable Vesta Michael PA-Pina Unavailable [phone] [facility] Unavailable [phone] Encounter Details Date Type Department Care Team Description 02/15/2023 Renal Dialysis Technician Report Medical Records 4 [place] [address] Kelsi Tejada MD Social History Tobacco Use Types Packs/Day Years Used Date Smoking Tobacco: Never Smokeless Tobacco: Never Alcohol Use Standard Drinks/Week Comments No 0 (1 standard drink = 0.6 oz pur e alcohol) Education Answer Date Recorded What is the highest level of school you have completed or the highest degree you have received? 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, BENCH BORING MACHINE OPERATOR, CHANDRAKANT) 06/14/2020 Sex Assigned at [...] on filedocumented in this encounter Care Teams Profile Mill Operator Tape Control Relationship Specialty Start Date End Date Ora Ronquillo MD 444 [place] [address] PCP - General Internal Medicine 10/11/21 Jl Mendez MD [address] [place] [address] Dr [address] [place] [address] Specialist Cardiovascular Disease 10/13/21 Jannette Boudreaux MD [address] [address] Surgeon Neurosurgery 04/07/22 Tenisha Mendieta PA-C [address] [address] Specialist Neurosurgery 04/07/22 Jluio Monk PA-C 175 [facility] 300 [place] [address] Specialist Neurosurgery 04/07/22 Luis Armando Eller MD [address] [address] Specialist ORTHOPEDIC SURGERY 10/01/23 Jayesh Pineda MD 305 [place] [address] Specialist Endocrinology 10/01/23 Kelsi Tejada MD 305 [place] [address] Specialist Allergy & Immunology 10/01/23 Pretty Le MD 175 [facility] 200 [place] [address] Specialist Pulmonology 10/01/23 Vesta Michael PA-C 300 [facility] [address] [place] [address] Specialist Vascular Surgery 10/01/23 [facility] 46 [place] [address] Specialist Optometry 10/01/23 documented as of this encounter
--- OUTSIDE RECORDS SUMMARY | 2024-07-30 10:26 | XMS_ITS | Encounter Summary ---
Author Organization [facility] Address [address] [place] [address] Care Team Providers Care Business Technology Teacher Name Role Phone Teressa Solis DO Primary Care Pro vider Unavailable Mina Pretty DO Primary Care Provider Shweta Cronin MD Primary Care Provider Ora Diaz MD Primary Care Prov ider Jl Mendez MD Unavailable Jannette Boudreaux MD Unavailable [phone] Tenisha Mendieta PA-C Unavailable Julio Monk PA-C Unavailable [phone] Luis Armando Eller MD Unavailable [phone] Jayesh Pineda MD Unavailable Kelsi Tejada MD Unavailable Unavailable Pretty Le MD Unavailable Vesta Michael PA-C Unavailable [facility] Unavailable Encounter Details Date Type Department Care Team Description 10/01/2015 Transfer Records Medical Records 4 [place] [address] Abstract, Provider Social History Tobacco Use Types [...] filedocumented in this encounter Care Teams Business Technology Teacher Relationship Specialty Start Date End Date Teressa Solis DO PCP - General Internal Medicine 12/18/13 09/15/20 Mina Pretty DO PCP - General Internal Medicine 09/16/20 Shweta Boucher MD PCP - General Internal Medicine 01/12/21 10/10/21 Ora Ronquillo MD [address] [place] [address] PCP - General Internal Medicine 10/11/21 Jl Mendez MD [address] [place] [address] Specialist Cardiovascular Disease 10/13/21 Jannette Boudreaux MD [address] [address] Surgeon Neurosurgery 04/07/22 Tenisha Mendieta PA-C [address] [address] Specialist Neurosurgery 04/07/22 Julio Monk PA-C [address] [address] Specialist Neurosurgery 04/07/22 Luis Armando Eller MD [address] [address] Specialist ORTHOPEDIC SURGERY 10/01/23 Jayesh Pineda MD 305 [place] [address] Specialist Endocrinology 10/01/23 Kelsi Tejada MD 305 [place] [address] Specialist Allergy & Immunology 10/01/23 Pretty Le MD 175 [facility] [address] [place] [address] Specialist Pulmonology 10/01/23 Vesta Michael PA-C 300 [facility] [address] [place] [address] Specialist Vascular Surgery 10/01/23 [facility] 46 [place] [address] Specialist Optometry 10/01/23 documented as of this encounter
--- OUTSIDE RECORDS SUMMARY | 2024-07-30 10:27 | XMS_ITS | Encounter Summary ---
Author Organization [facility] Address [address] [place] [address] Care Team Providers Care Health And Social Care Teacher Name Role Phone Ora Sweeney MD Primary Care Prov ider Reason for Visit * Reason Onset Date Comments notes 07/14/2024 Encounter Details Date Type Department Care Team (Late st Contact Info) Description 07/14/2024 Telephone Adult Medicine [address] [address] Ora Sweeney MD [address] [place] [address] notes Social History Tobacco Use Types Packs/Day Years [...] your loved ones. For example, early childhood special educator or elderly care for an older [...] PM EDT documented as of this encounter Progress Notes * Kelly Reyes MA - 07/16/2024 2:14 PM EDT Jordyn notes faxed to [facility] loan and credit manager office 07/16/2024 * Ora Sweeney MD - 07/16/2024 12:40 PM EDT I think what they want is the notes from the visit on June 12, last time I saw her. She is already established with [facility] * Kelly Reyes MA - 07/16/2024 10:[address] Mi I don't see a referral pending for an loan and credit manager. Did we actually refer them out. Notes on 06/12/2024 have not been completed. Please advise * Harish Epstein - 07/14/2024 4:25 PM EDT Call from [facility] allergists office , requesting last office visit notes from June 2024 to be sent to their facility - specifically addressing the mass on the patients chest attention to Rosio documented in this encounter Plan of Treatment Upcoming Encounters Date Type Department Care Team (Late st Contact Info) Description 08/07/2024 9:30 AM EDT Office Visit Orthopedic Surgery - [place] 250 175 [facility] 250 [place] [phone] Duke Dunn DPM 175 [facility] 250 [place] [address] 08/21/2024 8:30 AM EDT Appointment [facility] Endoscopy [address] [place] [phone] Dena Carrasco MD 175 [facility] 200 [place] [address] 08/22/2024 1:30 PM EDT Office Visit Obstetrics & Gynecology - [facility] 271 [place] [phone] Nguyen Crespo, CNM [address] [place] [address] 09/08/2024 11:15 AM EDT Office Visit Endocrinology [address] [phone] Jayesh Pineda MD 305 [place] [address] 09/22/2024 8:45 AM EDT Office Visit Pulmonolgy [facility] [address] [phone] Pretty Le MD [address] [address] 10/01/2024 7:30 AM EDT Office Visit Adult Medicine [address] [phone] Paula Garnica PA 444 [place] [address] 12/05/2024 11:00 AM EDT Office Visit Orthopedic Surgery [facility] [address] [address] Genny Arreguin PA [address] [address] 12/09/2024 9:00 AM EDT Nutrition Internal Medicine [address] [address] Bruna Caballero, LESLY 175 [place] [address] 12/12/2024 8:30 AM EDT Office Visit Adult Medicine [address] [phone] Ora Sweeney MD 4 [place] [address] documented as of this encounter Visit Diagnoses Not on filedocumented in this encounter Additional Health Concerns Assessment Noted Time PHQ-9 Depression Total Score: 0 06/12/19 25 7:16 PM EDT documented as of this encounter Care Teams Health And Social Care Teacher Relationship Specialty Start Date End Date Ora Sweeney MD [address] [place] [address] PCP - General Internal Medicine 01/09/24 documented as of this encounter
--- OUTSIDE RECORDS SUMMARY | 2024-07-30 10:27 | XMS_ITS | Encounter Summary ---
Author Organization [facility] Address [address] [place] [address] Care Team Providers Care Technical Sme Name Role Phone Teressa Solis DO Primary Care Pro vider Unavailable Mina Pretty DO Primary Care Provider Shweta Cronin MD Primary Care Provider Ora Diaz MD Primary Care Prov ider Jl Mendez MD Unavailable [phone] Jannette Boudreaux MD Unavailable [phone] Tenisha Mendieta PA-C Unavailable [phone] Julio Monk PA-C Unavailable Luis Armando Eller MD Unavailable [phone] Jayesh Pineda MD Unavailable Kelsi Tejada MD Unavailable Unavailable Pretty Le MD Unavailable Vesta Michael PA-C Unavailable [phone] [facility] Unavailable Reason for Visit * Reason Comments E-prescribe Rx Request Encounter Details Date Type Department Care Team Description 08/17/2018 Refill Adult Medicine [address] [id number] Teressa Solis DO E-prescribe Rx Request Social [...] THE PATIENT'S LAST APPOINTMENT IN ADULT MEDICINE? [id number] WHEN WAS THE LAST TIME THE PATIENT SAW THEIR PCP? Same as above Does patient have an upcoming appointment? Yes [id number] (THE MEDICATION REQUESTED IS ON THE MED [...] N/A Patients current insurance carrier is: Payor: [employer] FFS / Plan: [employer] ALLIANCE / Product Type: MEDICAID RISK documented in this encounter Plan of Treatment Not on file documented as of this encounter Visit Diagnoses Not on filedocumented in this encounter Care Teams Technical Sme Relationship Specialty Start Date End Date Teressa Solis DO PCP - General Internal Medicine 12/18/13 09/15/20 Mina Pretty DO PCP - General Internal Medicine 09/16/20 Shweta Boucher MD PCP - General Internal Medicine 01/12/21 10/10/21 Ora Ronquillo MD 444 [place] [address] PCP - General Internal Medicine 10/11/21 Jl Mendez MD [address] [place] [address] Dr Mont[address] [place] [address] Specialist Cardiovascular Disease 10/13/21 Jannette Boudreaux MD [address] [address] Surgeon Neurosurgery 04/07/22 Tenisha Mendieta PA-C 175 [facility] 300 [place] [address] Specialist Neurosurgery 04/07/22 Julio Monk PA-C 175 [facility] [place] 300 [place] [address] Specialist Neurosurgery 04/07/22 Luis Armando Eller MD 175 [facility] 250 [place] [address] Specialist ORTHOPEDIC SURGERY 10/01/23 Jayesh Pineda MD 305 [place] [address] Specialist Endocrinology 10/01/23 Kelsi Tejada MD 305 [place] [address] Specialist Allergy & Immunology 10/01/23 Pretty Le MD 175 [facility] 200 [place] [address] Specialist Pulmonology 10/01/23 Vesta Michael PA-C [address] [address] Specialist Vascular Surgery 10/01/23 [facility] 46 [place] [address] Specialist Optometry 10/01/23 documented as of this encounter
--- OUTSIDE RECORDS SUMMARY | 2024-07-30 10:27 | XMS_ITS | Encounter Summary ---
Author Organization [facility] Address [address] [place] [address] Care Team Providers Care Recruiter Manager Name Role Phone Teressa Solis DO Primary Care Pro vider Unavailable Mina Pretty DO Primary Care Provider Ailyn Shweta Pretty MD Primary Care Provider UnaOra Randall MD Primary Care Prov ider Jl Mendez MD Unavailable Jannette Boudreaux MD Unavailable [phone] Tenisha Mendieta PA-C Unavailable [phone] Julio Monk PA-C Unavailable Luis Armando Eller MD Unavailable [phone] Jayesh Pineda MD Unavailable Kelsi Tejada MD Unavailable Unavailable Pretty Le MD Unavailable Vesta Michael PA-C Unavailable [phone] [facility] Unavailable [phone] Encounter Details Date Type Department Care Team Description 10/07/2018 [facility] Adult [address] [address] Deborah Addison PA-C Social History [...] MG capsule [Deborah Addison PA-C] Preferred pharmacy: [facility] #[id number] [place] [address] DUANE ONOFRE AT [facility] Comment: Medication renewals requested in this [...] on filedocumented in this encounter Care Teams Recruiter Manager Relationship Specialty Start Date End Date Teressa Solis DO PCP - General Internal Medicine 12/18/13 09/15/20 Mina Pretty DO PCP - General Internal Medicine 09/16/20 Shweta Boucher MD PCP - General Internal Medicine 01/12/21 10/10/21 Ora Ronquillo MD 444 [place] [address] PCP - General Internal Medicine 10/11/21 Jl Mendez MD [address] [place] [address] Dr Montiel [address] [place] [address] Specialist Cardiovascular Disease 10/13/21 Jannette Boudreaux MD [address] [address] Surgeon Neurosurgery 04/07/22 Tenisha Mendieta PA-C [address] [address] Specialist Neurosurgery 04/07/22 Julio Monk PA-C [address] [address] Specialist Neurosurgery 04/07/22 Luis Armando Eller MD [address] [address] Specialist ORTHOPEDIC SURGERY 10/01/23 Jayesh Pineda MD 305 [place] [address] Specialist Endocrinology 10/01/23 Kelsi Tejada MD 305 [place] [address] Specialist Allergy & Immunology 10/01/23 Pretty Le MD 175 [facility] 200 [place] [address] Specialist Pulmonology 10/01/23 Vesta Michael PA-C 300 [facility] 210 [place] [address] Specialist Vascular Surgery 10/01/23 [facility] [address] [place] [address] Specialist Optometry 10/01/23 documented as of this encounter
--- OUTSIDE RECORDS SUMMARY | 2024-07-30 10:27 | XMS_ITS | Encounter Summary ---
Author Organization [facility] Address [address] [place] [address] Care Team Providers Care Hand Spray Operator Name Role Phone Teressa Solis DO Primary Care Pro vider Unavailable Mina Pretty DO Primary Care Provider Shweta Cronin MD Primary Care Provider Ora Diaz MD Primary Care Prov ider Jl Mendez MD Unavailable [phone] Jannette Boudreaux MD Unavailable [phone] Tenisha Mendieta PA-C Unavailable Julio Monk PA-C Unavailable Luis Armando Eller MD Unavailable [phone] Jayesh Pineda MD Unavailable Kelsi Tejada MD Unavailable Unavailable Pretty Le MD Unavailable Vesta Michael PA-C Unavailable [facility] Unavailable Encounter Details Date Type Department Care Team Description 06/21/2018 [facility] Medical Records 4 [place] [address] Abstract, Provider Social History Tobacco Use Types [...] filedocumented in this encounter Care Teams Hand Spray Operator Relationship Specialty Start Date End Date Teressa Solis DO PCP - General Internal Medicine 12/18/13 09/15/20 Mina Pretty DO PCP - General Internal Medicine 09/16/20 Shweta Boucher MD PCP - General Internal Medicine 01/12/21 10/10/21 Ora Ronquillo MD [address] [place] [address] PCP - General Internal Medicine 10/11/21 Jl Mendez MD [address] [place] [address] Dr Montiel [address] [place] [address] Specialist Cardiovascular Disease 10/13/21 Jannette Boudreaux MD [address] [address] Surgeon Neurosurgery 04/07/22 Tenisha Mendieta PA-C [address] [address] Specialist Neurosurgery 04/07/22 Julio Monk PA-C [address] [address] Specialist Neurosurgery 04/07/22 Luis Armando Eller MD [address] [address] Specialist ORTHOPEDIC SURGERY 10/01/23 Jayesh Pineda MD 305 [place] [address] Specialist Endocrinology 10/01/23 Kelsi Tejada MD 305 [place] [address] Specialist Allergy & Immunology 10/01/23 Pretty Le MD 175 [facility] [address] [place] [address] Specialist Pulmonology 10/01/23 Vesta Michael PA-C 300 [facility] [address] [place] [address] Specialist Vascular Surgery 10/01/23 [facility] 46 [place] [address] Specialist Optometry 10/01/23 documented as of this encounter
--- OUTSIDE RECORDS SUMMARY | 2024-07-30 10:27 | XMS_ITS | Encounter Summary ---
Author Organization [facility] Address [address] [place] [address] Care Team Providers Care Necktie Centralizing Machine Operator Name Role Phone Teressa Solis DO Primary Care Pro vider Unavailable Mina Pretty DO Primary Care Provider Shweta Cronin MD Primary Care Provider Ora Diaz MD Primary Care Prov ider Jl Mendez MD Unavailable Jannette Boudreaux MD Unavailable [phone] Tenisha Mendieta PA-C Unavailable Julio Monk PA-C Unavailable [phone] Luis Armando Eller MD Unavailable [phone] Jayesh Pineda MD Unavailable Kelsi Tejada MD Unavailable Unavailable Pretty Le MD Unavailable Vesta Michael PA-C Unavailable [facility] Unavailable Reason for Visit * Reason Comments E-prescribe Rx Request Encounter Details Date Type Department Care Team Description 07/11/2018 Refill Adult Medicine [address] [id number] Farrah Rodriguez, DONN E-prescribe Rx Request Social [...] encounter Miscellaneous Notes * Telephone Encounter - Nehal Lincoln - 07/11/2018 11:30 AM EDT Last ov 05/31/2018 Ov 09/02/2018 Lab Results Component Value Date NA 140 06/07/2018 K 3.8 06/07/2018 CO2 28 06/07/2018 CL 104 06/07/2018 BUN 8 06/07/2018 CREAT 0.63 06/07/2018 GLU 92 06/07/2018 CA 9.0 06/07/2018 GFR > 60 06/07/2018 * Telephone Encounter - Danielle Broussard - 07/11/2018 8:17 AM EDT Patient would like script to be: E-PRESCRIBED/FAXED TO PHARMACY WHEN WAS THE PATIENT'S LAST APPOINTMENT IN ADULT MEDICINE? [id number] WHEN WAS THE LAST TIME THE PATIENT SAW THEIR PCP? Same as above Does patient have an upcoming appointment? Yes [id number] (THE MEDICATION REQUESTED IS ON THE MED LIST ABOVE) All of the medications requested were on the CURRENT MEDS list Did you check the Pharmacy information above?: YES Patient wants: 30 -day supply Is this a mail order prescription request ? NO If the refill is from a FAXED refill request what is the RX # listed on the fax? Patients current insurance carrier is: Payor: [employer] F[employer] / Plan: [employer] [place] / Product Type: MEDICAID RISK documented in this encounter Plan of Treatment Not on file documented as of this encounter Visit Diagnoses Not on filedocumented in this encounter Care Teams Necktie Centralizing Machine Operator Relationship Specialty Start Date End Date Teressa Solis DO PCP - General Internal Medicine 12/18/13 09/15/20 Mina Pretty DO PCP - General Internal Medicine 09/16/20 Shweta Boucher MD PCP - General Internal Medicine 01/12/21 10/10/21 Ora Ronquillo MD [address] [place] [address] PCP - General Internal Medicine 10/11/21 Jl Mendez MD [address] [place] [address] Specialist Cardiovascular Disease 10/13/21 Jannette Boudreaux MD [address] [address] Surgeon Neurosurgery 04/07/22 Tenisha Mendieta PA-C [address] [address] Specialist Neurosurgery 04/07/22 Julio Monk PA-C [address] [address] Specialist Neurosurgery 04/07/22 Luis Armando Eller MD [address] [address] Specialist ORTHOPEDIC SURGERY 10/01/23 Jayesh Pineda MD [address] [place] [address] Specialist Endocrinology 10/01/23 Kelsi Tejada MD 305 [place] [address] Specialist Allergy & Immunology 10/01/23 Pretty Le MD 175 [facility] [address] [place] [address] Specialist Pulmonology 10/01/23 Vesta Michael PA-C 300 [facility] 210 [place] [address] Specialist Vascular Surgery 10/01/23 [facility] [address] [place] [address] Specialist Optometry 10/01/23 documented as of this encounter
--- OUTSIDE RECORDS SUMMARY | 2024-07-30 10:27 | XMS_ITS | Encounter Summary ---
Author Organization [facility] Address [address] [place] [address] Care Team Providers Care Underwriting Service Representative Name Role Phone Ora Ronquillo MD Primary Care Prov ider Jl Mendez MD Unavailable Jannette Boudreaux MD Unavailable [phone] Tenisha Mendieta PA-C Unavailable Julio MonkC Unavailable [phone] Luis Armando Eller MD Unavailable [phone] Jayesh Pineda MD Unavailable Kelsi Tejada MD Unavailable Unavailable Pretty Le MD Unavailable Vesta Michael PA-Pina Unavailable [phone] [facility] Unavailable [phone] Encounter Details Date Type Department Care Team Description 09/14/2022 Human Resources Services Specialist Report Medical Records [address] [place] [address] Jorge Belcher II Social History Tobacco Use Types Packs/Day Years Used Date Smoking Tobacco: Never Smokeless Tobacco: Never Alcohol Use Standard Drinks/Week Comments No 0 (1 standard drink = 0.6 oz pur e alcohol) Education Answer Date Recorded What is the highest level of school you have completed or the highest degree you have received? 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, BOILING OFF WINDER, CHANDRAKANT) 06/14/2020 Sex Assigned at Date Recorded [...] on filedocumented in this encounter Care Teams Underwriting Service Representative Relationship Specialty Start Date End Date Ora Ronquillo MD [address] [place] [address] PCP - General Internal Medicine 10/11/21 Jl Mendez MD [address] [place] [address] Dr [address] [place] [address] Specialist Cardiovascular Disease 10/13/21 Jannette Boudreaux MD 175 [facility] 300 [place] [address] Surgeon Neurosurgery 04/07/22 Tenisha Mendieta PA-C [address] [address] Specialist Neurosurgery 04/07/22 Julio Monk PA-C 175 [facility] 300 [place] [address] Specialist Neurosurgery 04/07/22 Luis Armando Eller MD [address] [address] Specialist ORTHOPEDIC SURGERY 10/01/23 Jayesh Pineda MD 305 [place] [address] Specialist Endocrinology 10/01/23 Kelsi Tejada MD 305 [place] [address] Specialist Allergy & Immunology 10/01/23 Pretty Le MD 175 [facility] 200 [place] [address] Specialist Pulmonology 10/01/23 Vesta Michael PA-C 300 [facility] 210 [place] [address] Specialist Vascular Surgery 10/01/23 [facility] [address] [place] [address] Specialist Optometry 10/01/23 documented as of this encounter
--- OUTSIDE RECORDS SUMMARY | 2024-07-30 10:27 | XMS_ITS | Encounter Summary ---
Author Organization [facility] Address [address] [place] [address] Care Team Providers Care Residential Plumber Name Role Phone Ora Ronquillo MD Primary Care Prov ider Jl Mendez MD Unavailable Jannette Boudreaux MD Unavailable [phone] Tenisha MendietaC Unavailable [phone] Julio Monk-C Unavailable Luis Armando Eller MD Unavailable [phone] Jayesh Pineda MD Unavailable Kelsi Tejada MD Unavailable Unavailable Pretty Le MD Unavailable Vesta Michael PA-C Unavailable [facility] Unavailable Reason for Referral * EXTERNAL (Routine) - Authorized/Booked Specialty Diagnoses / Procedures Referred By Contstella castillo Referred To Contact Dermatology Procedures REFERRAL TO DERMATOLOGY Ora Ronquillo MD [address] [place] [address] Ezio Marr 125 [facility] [address] [place] [address] Referral ID Status Reason Start Date Expiration Date V isits Requested Visits Authorized [id number] Authorized/B ooked 08/21/2022 11/21/2022 1 1 Reason for Visit * Reason Onset Date Comments Hack Driver Feedback 08/21/2022 REFERRAL TO DERM ATOLOGY Encounter Details Date Type Department Care Team Description 08/21/2022 Telephone Adult Medicine [facility] [address] [place] [address] Ora Ronquillo MD 4 [place] [address] Hack Driver Feedback (REFERRAL TO DERMATOLOGY) Social History Tobacco Use Types Packs/Day Years Used Date Smoking Tobacco: Never Smokeless Tobacco: Never Alcohol Use Standard Drinks/Week Comments No 0 (1 standard drink = 0.6 oz pur e alcohol) Education Answer Date Recorded What is the highest level of school you have completed or the highest degree you have received? 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, PRIMARY CARE COORDINATOR, CHANDRAKANT) 06/14/2020 Sex Assigned at Date [...] if denied. The pt was referred to [facility] but they don't work with the pt's insurance and the pt needs a new referral. Thank you, Chris documented in this encounter Plan of Treatment Not on file documented as of this encounter Visit Diagnoses Not on filedocumented in this encounter Care Teams Residential Plumber Relationship Specialty Start Date End Date Ora Ronquillo MD [address] [place] [address] PCP - General Internal Medicine 10/11/21 Jl Mendez MD [address] [place] [address] Dr Mont[address] [place] [address] Specialist Cardiovascular Disease 10/13/21 Jannette Boudreaux MD 175 [facility] 300 [place] [address] Surgeon Neurosurgery 04/07/22 Tenisha Mendieta PA-C [address] [address] Specialist Neurosurgery 04/07/22 Julio Monk PA-C 175 [facility] 300 [place] [address] Specialist Neurosurgery 04/07/22 Luis Armando Eller MD 175 [facility] 250 [place] [address] Specialist ORTHOPEDIC SURGERY 10/01/23 Jayesh Pineda MD 305 [place] [address] Specialist Endocrinology 10/01/23 Kelsi Tejada MD 305 [place] [address] Specialist Allergy & Immunology 10/01/23 Pretty Le MD 175 [facility] [address] [place] [address] Specialist Pulmonology 10/01/23 Vesta Michael PA-C 300 [facility] 210 [place] [address] Specialist Vascular Surgery 10/01/23 [facility] 46 [place] [address] Specialist Optometry 10/01/23 documented as of this encounter
--- OUTSIDE RECORDS SUMMARY | 2024-07-30 10:27 | XMS_ITS | Encounter Summary ---
Author Organization [facility] Address [address] [place] [address] Care Team Providers Care Entry Level Sales Representative Name Role Phone Ora Ronquillo MD Primary Care Prov ider Jl Mendez MD Unavailable Jannette Boudreaux MD Unavailable [phone] Tenisha MendietaC Unavailable Julio Monk-C Unavailable Luis Armando Eller MD Unavailable [phone] Jayesh Pineda MD Unavailable Kelsi Tejada MD Unavailable Unavailable Pretty Le MD Unavailable Vesta Michael PA-C Unavailable [phone] [facility] Unavailable [phone] Encounter Details Date Type Department Care Team Description 06/19/2023 [facility] Medical [facility] 175 [facility] [address] [place] [address] Danielle Soni APRN Social History [...] 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, CONVERTER SUPERVISOR, CHANDRAKANT) 06/14/2020 Sex Assigned at Date Recorded Female 08/03/2020 10:16 PM EDT Job Start Date Occupation Industry Not on file Not on file Not on file documented as of this encounter Plan of Treatment Not on file documented as of this encounter Visit Diagnoses Not on filedocumented in this encounter Care Teams Entry Level Sales Representative Relationship Specialty Start Date End Date Ora Ronquillo MD 444 [place] [address] PCP - General Internal Medicine 10/11/21 Jl Mendez MD [address] [place] [address] Dr [address] [place] [address] Specialist Cardiovascular Disease 10/13/21 Jannette Boudreaux MD [address] [address] Surgeon Neurosurgery 04/07/22 Tenisha Mendieta PA-C [address] [address] Specialist Neurosurgery 04/07/22 Julio Monk PA-C [address] [address] Specialist Neurosurgery 04/07/22 Luis Armando Eller MD [address] [address] Specialist ORTHOPEDIC SURGERY 10/01/23 Jayesh Pineda MD 305 [place] [address] Specialist Endocrinology 10/01/23 Kelsi Tejada MD 305 [place] [address] Specialist Allergy & Immunology 10/01/23 Pretty Le MD 175 [facility] 200 [place] [address] Specialist Pulmonology 10/01/23 Vesta Michael PA-C 300 [facility] [address] [place] [address] Specialist Vascular Surgery 10/01/23 [facility] [address] [place] [address] Specialist Optometry 10/01/23 documented as of this encounter
--- OUTSIDE RECORDS SUMMARY | 2024-07-30 10:27 | XMS_ITS | Encounter Summary ---
Author Organization [facility] Address [address] [place] [address] Care Team Providers Care Director Council On Aging Name Role Phone Teressa Solis DO Primary Care Pro vider Unavailable Mina Pretty DO Primary Care Provider Shweta Cronin MD Primary Care Provider Ora Diaz MD Primary Care Prov ider Jl Mendez MD Unavailable Jannette Boudreaux MD Unavailable [phone] Tenisha Mendieta PA-C Unavailable Julio Monk PA-C Unavailable [phone] Luis Armando Eller MD Unavailable [phone] Jayesh Pineda MD Unavailable Kelsi Tejada MD Unavailable Unavailable Pretty Le MD Unavailable Vetsa Michael PA-C Unavailable [facility] Unavailable [phone] Reason for Visit * Reason Onset Date Comments Prior Authorization 07/22/2020 Encounter Details Date Type Department Care Team Description 07/22/2020 [place] [facility] [address] [id number] Teressa Solis DO Prior Authorization Social History [...] Master's degree (e.g., TANIA, MS, Lexi, Joel, INTERLOCKING PAVEMENT INSTALLER, CHANDRAKANT) 06/14/2020 Sex Assigned at Date Recorded [...] My Meds request: Yes -- [place] Code [id number] Name of Medication Pantoprazole Sodium Dose of Medication 40mg What is the RX # from the faxed refill? How does patient take this med? Tablets What Pharmacy did the fax come from: [facility] fax #: [facility] Information from fax: What Prescription Plan does the patient have? [facility] BIN/PCN if applicable: Cardholder ID: Person Code: Relationship Code: Help desk phone: documented in this encounter Plan of Treatment Not on file documented as of this encounter Visit Diagnoses Not on filedocumented in this encounter Care Teams Director Council On Aging Relationship Specialty Start Date End Date Teressa Solis DO PCP - General Internal Medicine 12/18/13 09/15/20 Mina Pretty DO PCP - General Internal Medicine 09/16/20 Shweta Boucher MD PCP - General Internal Medicine 01/12/21 10/10/21 Ora Ronquillo MD 444 [place] [address] PCP - General Internal Medicine 10/11/21 Jl Mendez MD [address] [place] [address] Dr [address] [place] [address] Specialist Cardiovascular Disease 10/13/21 Jannette Boudreaux MD [address] [address] Surgeon Neurosurgery 04/07/22 Tenihsa Mendieta PA-C [address] [address] Specialist Neurosurgery 04/07/22 Julio Monk PA-C [address] [address] Specialist Neurosurgery 04/07/22 Luis Armando Eller MD [address] [address] Specialist ORTHOPEDIC SURGERY 10/01/23 Jayesh Pineda MD 305 [place] [address] Specialist Endocrinology 10/01/23 Kelsi Tejada MD 305 [place] [address] Specialist Allergy & Immunology 10/01/23 Pretty Le MD 175 [facility] 200 [place] [address] Specialist Pulmonology 10/01/23 Vesta Michael PA-C 300 [facility] 210 [place] [address] Specialist Vascular Surgery 10/01/23 [facility] 46 [place] [address] Specialist Optometry 10/01/23 documented as of this encounter
--- OUTSIDE RECORDS SUMMARY | 2024-07-30 10:27 | XMS_ITS | Encounter Summary ---
Author Organization [facility] Address [address] [place] [address] Care Team Providers Care Swaging Machine Adjuster Name Role Phone Teressa Solis DO Primary Care Pro vider Unavailable Mina Pretty DO Primary Care Provider Shweta Cronin MD Primary Care Provider Ora Diaz MD Primary Care Prov ider Jl Mendez MD Unavailable Jannette Boudreaux MD Unavailable [phone] Tenisha Mendieta PA-C Unavailable [phone] Julio Monk PA-C Unavailable [phone] Luis Armando Eller MD Unavailable [phone] Jayesh Pineda MD Unavailable Kelsi Tejada MD Unavailable Unavailable Pretty Le MD Unavailable Vesta Michael PA-C Unavailable [phone] [facility] Unavailable [phone] Encounter Details Date Type Department Care Team Description 07/21/2020 Delivery Tech Report Medical Records 4 [place] [address] Randy Domínguez MD Social History Tobacco Use Types Packs/Day Years Used Date Smoking Tobacco: Never Smokeless Tobacco: Never Alcohol Use Standard Drinks/Week Comments No 0 (1 standard drink = 0.6 oz pur e alcohol) Education Answer Date Recorded What is the highest level of school you have completed or the highest degree you have received? 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, JACQUARD FIXER, CHANDRAKANT) 06/14/2020 Sex Assigned at Date Recorded Female 08/03/2020 10:16 PM EDT Job Start Date Occupation Industry Not on file Not on file Not on file documented as of this encounter Plan of Treatment Not on file documented as of this encounter Visit Diagnoses Not on filedocumented in this encounter Care Teams Swaging Machine Adjuster Relationship Specialty Start Date End Date Teressa Solis DO PCP - General Internal Medicine 12/18/13 09/15/20 Mina Pretty DO PCP - General Internal Medicine 09/16/20 Shweta Boucher MD PCP - General Internal Medicine 01/12/21 10/10/21 Ora Ronquillo MD [address] [place] [address] PCP - General Internal Medicine 10/11/21 Jl Mendez MD [address] [place] [address] Dr Mont[address] [place] [address] Specialist Cardiovascular Disease 10/13/21 Jannette Boudreaux MD [address] [address] Surgeon Neurosurgery 04/07/22 Tenisha Mendieta PA-C [address] [address] Specialist Neurosurgery 04/07/22 Julio Monk PA-C 175 [facility] [address] [place] [address] Specialist Neurosurgery 04/07/22 Luis Armando Eller MD [address] [address] Specialist ORTHOPEDIC SURGERY 10/01/23 Jayesh Pineda MD 305 [place] [address] Specialist Endocrinology 10/01/23 Kelsi Tejada MD 305 [place] [address] Specialist Allergy & Immunology 10/01/23 Pretty Le MD 175 [facility] [address] [place] [address] Specialist Pulmonology 10/01/23 Vesta Michael PA-C 300 [facility] 210 [place] [address] Specialist Vascular Surgery 10/01/23 [facility] 46 [place] [address] Specialist Optometry 10/01/23 documented as of this encounter
--- OUTSIDE RECORDS SUMMARY | 2024-07-30 10:27 | XMS_ITS | Encounter Summary ---
Author Organization [facility] Address [address] [place] [address] Care Team Providers Care Electronics Installer Name Role Phone Geno Cueva MD Primary Care Provider Unavailable Teressa Solis DO Primary Care Pro vider Unavailable Mina Pretty DO Primary Care Provider Ailyn Shweta Pretty MD Primary Care Provider Ora Diaz MD Primary Care Prov ider Jl Mendez MD Unavailable [phone] Jannette Boudreaux MD Unavailable [phone] Tenisha Mendieta PA-C Unavailable [phone] Julio Monk PA-C Unavailable Luis Armando Eller MD Unavailable [phone] Jayesh Pineda MD Unavailable Kelsi Tejada MD Unavailable Unavailable Pretty Le MD Unavailable Vesta Michael-Pina Unavailable [phone] [facility] Unavailable [phone] Encounter Details Date Type Department Care Team Description 04/23/2013 Geophysical Laboratory Supervisor Report Medical Records [address] [place] [address] Narinder Franco MD Social History Tobacco Use [...] on filedocumented in this encounter Care Teams Electronics Installer Relationship Specialty Start Date End Date Geno Cueva MD PCP - General Internal Medicine 06/28/1212/17/13 Teressa Solis DO PCP - General Internal Medicine 12/18/13 09/15/20 Mina Pretty DO PCP - General Internal Medicine 09/16/20 1 Shweta Tellez MD PCP - General Internal Medicine 01/12/21 10/10/21 Hiwot Cocuh, Ora Kelly MD [address] [place] [address] PCP - General Internal Medicine 10/11/21 Jl Mendez MD [address] [place] [address] Dr Montiel [address] [place] [address] Specialist Cardiovascular Disease 10/13/21 Jannette Boudreaux MD [address] [address] Surgeon Neurosurgery 04/07/22 Tenisha Mendieta PA-C [address] [address] Specialist Neurosurgery 04/07/22 Julio Monk PA-C [address] [address] Specialist Neurosurgery 04/07/22 Luis Armando Eller MD [address] [address] Specialist ORTHOPEDIC SURGERY 10/01/23 Jayesh Pineda MD [address] [place] [address] Specialist Endocrinology 10/01/23 Kelsi Tejada MD 305 [place] [address] Specialist Allergy & Immunology 10/01/23 Pretty Le MD 175 [facility] [address] [place] [address] Specialist Pulmonology 10/01/23 Vesta Michael PA-C 300 [facility] [address] [place] [address] Specialist Vascular Surgery 10/01/23 [facility] 46 [place] [address] Specialist Optometry 10/01/23 documented as of this encounter
--- OUTSIDE RECORDS SUMMARY | 2024-07-30 10:27 | XMS_ITS | Encounter Summary ---
Author Organization [facility] Address [address] [place] [address] Care Team Providers Care Sales Consultant Name Role Phone Ora Sweeney MD Primary Care Prov ider Encounter Details Date Type Department Care Team (Late st Contact Info) Description 07/04/2024 Lab Requisition [facility] - Main Lab 299 [facility] [place] [phone] Isabel Gray, PA [address] [place] [address] Dysuria Social History Tobacco Use Types Packs/Day Years [...] for your loved ones. For example, child psychologist or elderly care for an older adult? [...] AM EDT Office Visit Orthopedic Surgery - [place] [address] [address] Duke Dunn, BASIL 175 [facility] 250 [place] [address] 08/21/2024 8:30 AM EDT Appointment [facility] Endoscopy [address] [place] [phone] Dena Carrasco MD [address] [address] 08/22/2024 1:30 PM EDT Office Visit Obstetrics & Gynecology - [address] [address] Nguyen Crespo, CNM [address] [place] [address] 09/08/2024 11:15 AM EDT Office Visit Endocrinology [address] [phone] Jayesh Pineda MD 305 [place] [address] 09/22/2024 8:45 AM EDT Office Visit Pulmonolgy - [address] [address] Pretty Le MD [address] [place] [address] 10/01/2024 7:30 AM EDT Office Visit Adult Medicine East [address] [phone] Paula Garnica PA 444 [place] [address] 12/05/2024 11:00 AM EDT Office Visit Orthopedic Surgery [facility] [address] [address] Genny Arreguin PA [address] [address] 12/09/2024 9:00 AM EDT Nutrition Internal Medicine - [address] [place] [phone] Bruna Caballero, RD 175 [place] [phone] 12/12/2024 8:30 AM EDT Office Visit Adult [facility] 444 [place] [address] Ora Sweeney MD 444 [place], [place] documented as of this encounter Procedures Procedure Name Priority Date/Time Associated Diagnosis Comments BACTERIAL IDENTIFICATION AND SUSCEPTIBILITY, AEROBIC Routine 07/03/2024 12:00 AM EDT Dysuria documented in this encounter Results * (ABNORMAL) Bacterial identification and susceptibility, aerobic (07/03/2024 12:00 AM EDT) Culture, Bacterial ID and Sensitivity Enterococcus faecalis(A) AARON 07/05/2024 9:20 AM EDT [facility] Comment: Edited result: Previously reported as Enterococcus species on 07/04/2024 at 1100 EDT. Other Urine specimen from urethra / Unknown 07/03/2024 07/04/2024 10:23 AM EDT Narrative [facility] - 07/05/2024 9:20 AM EDT [...] MICROBIOLOGY - GENERAL ORDER ARELIS Final Result [facility] [address] [place] [address], documented in this encounter Visit Diagnoses Diagnosis Dysuria documented in this encounter Additional Health Concerns Assessment Noted Time PHQ-9 Depression Total Score: 0 06/12/19 25 7:16 PM EDT documented as of this encounter Care Teams Sales Consultant Relationship Specialty Start Date End Date Ora Sweeney MD [address] [place] [address] PCP - General Internal Medicine 01/09/24 documented as of this encounter
--- OUTSIDE RECORDS SUMMARY | 2024-07-30 10:27 | XMS_ITS | Encounter Summary ---
Author Organization [facility] Address [address] [place] [address] Care Team Providers Care Gas Welder Name Role Phone Teressa Solis DO Primary Care Pro vider Unavailable Mina Pretty DO Primary Care Provider Shweta Cronin MD Primary Care Provider Ora Diaz MD Primary Care Prov ider Jl Mendez MD Unavailable [phone] Jannette Boudreaux MD Unavailable [phone] Tenisha Mendieta PA-C Unavailable Julio Monk PA-C Unavailable Luis Armando Eller MD Unavailable [phone] Jayesh Pineda MD Unavailable Kelsi Tejada MD Unavailable Unavailable Pretty Le MD Unavailable Vesta Michael PA-C Unavailable [facility] Unavailable [phone] Encounter Details Date Type Department Care Team Description 05/17/2020 Women'S Studies Lecturer Report Medical Records [address] [place] [address] Randy Domínguez MD Social History Tobacco Use [...] filedocumented in this encounter Care Teams Gas Welder Relationship Specialty Start Date End Date Teressa Solis DO PCP - General Internal Medicine 12/18/13 09/15/20 Mina Pretty DO PCP - General Internal Medicine 09/16/20 Shweta Boucher MD PCP - General Internal Medicine 01/12/21 10/10/21 Ora Ronquillo MD [address] [place] [address] PCP - General Internal Medicine 10/11/21 Jl Mendez MD [address] [place] [address] Dr Mont[address] [place] [address] Specialist Cardiovascular Disease 10/13/21 Jannette Boudreaux MD [address] [address] Surgeon Neurosurgery 04/07/22 Tenisha Mendieta PA-C [address] [address] Specialist Neurosurgery 04/07/22 Julio Monk PA-C [address] [address] Specialist Neurosurgery 04/07/22 Luis Armando Eller MD [address] [address] Specialist ORTHOPEDIC SURGERY 10/01/23 Jayesh Pineda MD [address] [place] [address] Specialist Endocrinology 10/01/23 Kelsi Tejada MD [address] [place] [address] Specialist Allergy & Immunology 10/01/23 Pretty Le MD 175 [facility] [address] [place] [address] Specialist Pulmonology 10/01/23 Vesta Michael PA-C 300 [facility] [address] [place] [address] Specialist Vascular Surgery 10/01/23 [facility] [address] [place] [address] Specialist Optometry 10/01/23 documented as of this encounter
--- OUTSIDE RECORDS SUMMARY | 2024-07-30 10:27 | XMS_ITS | Encounter Summary ---
Author Organization [facility] Address [address] [place] [address] Care Team Providers Care Fullerette Name Role Phone Ora Sweeney MD Primary Care Prov ider Reason for Visit * Reason Comments Obesity Diabetes Encounter Details Date Type Department Care Team (Late st Contact Info) Description 07/29/2024 9:30 AM EDT Nutrition Internal Medicine - [place] 175 [facility] [address] [place] [phone] Bruna Caballero, RD [address] [place] [phone] Controlled type 2 diabetes mellitus without complication, without long-term current use of insulin (CMS/HCC V24, CMS/HCC V28) (Primary Dx); Morbid obesity (CMS/HCC V24, CMS/HCC V28) Social History Tobacco Use Types Packs/Day Years [...] your loved ones. For example, child care centre director or elderly care for an older [...] PM EDT documented as of this encounter Last Filed Vital Signs Vital Sign Reading Time Taken Comments Blood Pressure - - Pulse - - Temperature - - Respiratory Rate - - Oxygen Saturation - - Inhaled Oxygen Concentration - - Weight 121 kg (266 lb) 07/29/2024 11:24 AM EDT Height 160 cm (5' 3 ) 07/29/2024 11:24 AM EDT Body Mass Index 47.12 07/29/2024 11:24 AM EDT documented in this encounter Progress Notes * Bruna Caballero RD - 07/29/2024 9:30 AM EDT Images from the original note were not included. Contact info: Bruna Caballero, MS, RDN, LDN Registered Dietitian - Adult Medicine [address] [place] [address] [email or web address] W: [phone] Patient goals: Exercise: continue as tolerated Hydration: goal to include 9-11 cups fluids daily Sleep: aim for 7+ hours restful sleep nightly Dietary pattern: include protein and fiber every 3-4 hours to support active metabolism and/or blood sugar control At all meals be sure to include protein foundation (lean animal-based OR plant- based options) and balance plate with proper portion (1/4 plate) whole grain or starch (3-5g fiber per serving) and natural and vibrant color from fruit or vegetable. Fruit recommendations due to more fiber (edible skin and seeds): 1. All berries 2. [place], apples, pears, peaches, plums, etc. 3. Melons such as honeydew, canteloupe, watermelon, etc. 4. Tropical fruits: banana (1/2 only), uzma, pineapple, etc. Vegetables 2x/day (1/2 plate) Limit all juice, lemonade and sugar-sweetened beverages Limit eggs to one whole egg and add additional egg whites Keep grains and starches to 1/4 of the plate * Bruna Caballero RD - 07/29/2024 9:30 AM EDT INITIAL NUTRITION CONSULT Date of Service: 07/29/2024 Referred by: Dr. Park Referral reason: Obesity, DM2 Background info: Pt is a 63 y.o. y/o female who seeks weight loss and blood sugar support. Pt also presents with chest pain, CTS, knee pain, asthma, VIRGIE, HTN, palpitations, GERD, fatty liver, low D levels, OA, tear rotator cuff, DM2, hyperparathyroidism, anxiety, depression. Food allergies include MSG, almond, rabbit, chocolate and yellow banana (intolerance). Pt attended today's appointment withdaAna Luisa garcia. Social History: Occupation: retired Work schedule: - Lives with: children Who is responsible for grocery shopping and cooking? daughter Readiness to change the diet: Yes Previously met with a dietitian/roll plugger: Yes Alcohol: No Smoking: No Family History: Family History Problem Relation Name Age of Onset Breast cancer Aunt maternal x 1 50.00 Diabetes Mother with neuropathy, OA, Uterine cancer Mother 31.00 Colon cancer Mother 59.00 Ovarian cancer Mother 31.00 Coronary artery disease Father VT age 68, HTN, Diabetes, cataract, glaucoma Ovarian cancer Maternal Grandmother 50.00 uterine cancer same age Emphysema Maternal Grandfather 97.00 Ovarian cancer Aunt maternal x 6 50.00 6 maternal aunts also with ov, uterine ca Lung cancer Paternal Grandfather 75.00 Colon polyps Sister x 2 50.00 glaucoma, diabetes Glaucoma Brother x 2 Lymphoma Mother's side 1st cousin Lung cancer Mother's side 1st cousin Nutrition & Lifestyle History: What are your main motivators for changing your diet? to improve mobility, to be able to be more active, to feel more confident, and to be more independent What, if any, changes have you tried to make in regard to your diet in the past? Multiple diet attempts, WW, Herbalife What obstacles have you faced or might you face when trying to improve your diet? None reported GI issues: Indigestion/Heartburn, constipation Food Allergies/Intolerances: lactose intolerant, almond, rabbit, MSG, yellow banana Food dislikes: none reported What are your frequent snacks between meals? Afternoon snack How often do you drink SSBs? daily, passion fruit, apple, cranberry, grape juice and OJ; soda 1-2x/week; strawberry lemonade Has your appetite changed recently? no If, yes: How would you rate your energy? Fair How would you rate your quality of sleep? Poor How many hours of sleep do you get per night? 6 hours Physical Activity Do you exercise regularly? Yes, seated pedaling 2x/day (40 minutes) Frequency: most days per week, 20+ mins in duration How long have you followed this routine? 1 month If no, why not? - Barriers to exercise? Knees, back, ankle pain Describe your daily activity: varies Anthropometrics: Weight: Wt Readings from Last 1 Encounters: 07/29/24 121 kg (266 lb) Height: Ht Readings from Last 1 Encounters: 07/29/24 1.6 m (63 ) Body mass index is 47.12 kg/m??. (obesity - grade III) Are you satiesfied with your current weight? no Diet Recall: Vit/mineral supplement: vitamin D, magnesium Wake-up: 7am 8 hours Breakfast: Premier protein shakes OR oikos yogurt 11am Morning Snack: 3 slices ham, 2-3 egg and 1 slice (cayman islander) cheese sandwich on potato bread; 12 oz juice OR pancakes and eggs and meat OR scrambled eggs with vegetables (spinach, mushrooms and cheese) 1-2pm Lunch: rice, beans, chicken and peppers/onions, green beans OR salad with raisins, cranberries, pumpkin seeds, honey mustard or ranch, 6 oz chicken; 12 oz juice 7pm Dinner: 1 cup pasta with protein and betty sauce or rice, beans, protein, vegetables 1-2 hours later Evening Snack: yogurt Beverages: Water, regular soda, and regular juice Dines out: infrequently 1x/week, Cantina bowl with extra chicken, Poke bowl Pace of eating: Slow Lab History: Lab Results Component Value Date HGBA1C 7.4 (A) 11/26/2023 CHOL 146 10/04/2023 LDL 73 10/04/2023 HDL 39 (A) 10/04/2023 TRIG 173 (A) 10/04/2023 Medications: Current Outpatient Medications Medication Instructions acetaminophen (TYLENOL 8 HOUR) 650 mg 8 hr tablet Take 1 Tablet by mouth 3 times daily as needed for Pain (mild pain). albuterol 2.5 mg /3 mL (0.083 %) nebulizer solution every 8 (eight) hours if needed. albuterol HFA (PROAIR HFA ; PROVENTIL HFA ; VENTOLIN HFA) 90 mcg/actuation inhaler Inhale 2 Puffs into the lungs every 6 hours as needed for Cough, Wheezing or Shortness of Breath for up to 363 days. amLODIPine (NORVASC) 10 mg, oral, Daily ammonium lactate (LAC-HYDRIN) 12 % lotion Apply to soles of feet daily. At night wear socks to bed atorvastatin (LIPITOR) 20 mg tablet TAKE 1 TABLET BY MOUTH EVERY DAY azelastine HCl (ASTELIN NASL) 2 Sprays by Nasal route 2 times daily. blood sugar diagnostic (FreeStyle Lite Strips) test strip Use to test blood sugars once daily in the morning, before breakfast. blood-glucose meter misc Use to test blood sugars once daily in the morning, before breakfast. cholecalciferol (VITAMIN D-3) 125 mcg (5,000 unit) capsule 1 capsule, Daily cloNIDine (CATAPRES) 0.1 mg tablet TAKE 1/2-1 TABLET BY MOUTH TWICE A DAY NEEDED FOR ANXIETY- ASNEEDED AND TOLERATED docusate sodium (COLACE) 100 mg, oral, 2 times daily EPINEPHrine (EpiPen 2-Nehemiah) 0.3 mg/0.3 mL injection Inject 1 Device as directed as needed (anaphylaxis). Use as directed famotidine (PEPCID) 20 mg tablet TAKE 1 TABLET (20 MG) BY MOUTH TWICE A DAY NEEDED FOR HEARTBURN fexofenadine (CRISTINA) 180 mg tablet Take 1 tablet by mouth daily. FREESTYLE LANCETS MISC Use to test blood sugars once daily in the morning, before breakfast. ketoconazole (NIZORAL) 2 % cream Apply 1 Dose topically 2 times daily for 30 days. levothyroxine (SYNTHROID, LEVOTHROID) 137 mcg, oral, Daily losartan (COZAAR) 100 mg, oral, Daily montelukast (SINGULAIR) 10 mg tablet Take 1 Tablet by mouth at bedtime. nitrofurantoin, macrocrystal-monohydrate, (MACROBID) 100 mg capsule 100 mg, 2 times daily Nucala 100 mg/mL auto-injector every 30 (thirty) days. TAKES ON onabotulinumtoxinA (Botox) 200 unit injection pantoprazole (PROTONIX) 40 mg EC tablet predniSONE (DELTASONE) 20 mg tablet Take 60 mg PO daily for 3 days, then take 40 mg PO daily for 3 days, then 20 mg PO daily for 3 days, then stop senna (SENOKOT) 8.6 mg tablet Take 1 Tablet by mouth at bedtime. sertraline (ZOLOFT) 100 mg tablet TAKE 1 TABLET BY MOUTH EVERY DAY IN THE MORNING SUMAtriptan (IMITREX) 50 mg tablet TAKE 1 TO 2 TABLETS FOR MIGRAINE SYMPTOMS AND MAY REPEAT ONCE 2 HOURS LATER IF NEEDED tezepelumab-ekko (Tezspire) 210 mg/1.91 mL (110 mg/mL) injection traZODone (DESYREL) 100 mg tablet TAKE 1 TABLET EVERY NIGHT AT BEDTIME NEEDED CAN TAKE 1/2 TO ONE TABLET AT NIGHT TO HELP SLEEP triamcinolone (NASACORT) 55 mcg nasal inhaler INSTILL 1 TO 2 SPRAYS INTO EACH NOSTRIL ONCE DAILY. Trulicity 1.5 mg, Weekly UNABLE TO FIND Inhale into the lungs. [facility]-supplies only venlafaxine XR (EFFEXOR-XR) 37.5 mg 24 hr capsule 1 (one) time each day. COMPARATIVE STANDARDS AND ESTIMATED NEEDS Kilocalorie Need: 2300kcals OR 1800kcals to lose 1-2lb/wk Method used for estimating needs: [place] St Jeor Equation x activity factor (1.375) Protein: 68-90g (15-20% kcals) CHO: 180g (40% kcals) Fluid: 2075mls Nutrition assessment: Pt is 63 y.o. Female who eats often throughout the day. Serving sizes may be in excess at times. Juice is consumed in excess, contributing just under 400kcals/day. Vegetables consumed often. Lactose intolerance and food allergies limits some food choices but pt has decent varie ty. Grains are often white and refined. Some exercise included. Hydration is likely adequate. Nutrition Diagnoses: Obesity related to excess energy intake as evidenced by BMI of 47.12. Altered nutrition-related lab values related to endocrine function as evidenced by HbA1c of 7.4. Nutrition Interventions: Discussed importance of eating at least 3 meals per day and the impact on metabolism, Discussed the need to have protein with each meal and snack, Discussed the plate method and balanced meals, Discussed carbohydrate and impact on blood sugar levels, and Discussed the importance of drinking enough water Energy Balance: Basic health eating, Healthy snacks, Portion control, and Food labelling Fluid Intake: Adequate hydration and Omit juice Protein Intake: Protein each meal, Non-animal proteins, and Lean protein sources Fat and Cholesterol Intake: on Detrimental fats Carbohydrate and Fiber Intake: Plate Method and Increase Fiber Intake Nutrition Education: Discussed the importance of fueling the body properly with appropriate foods. We reviewed the plate method to educate on food groups, portion sizes and number of servings recommended daily. Discussed strategies to consume more vegetables in diet which do not require much cooking or food preparation. Highlighted benefits of consuming whole grains instead of processed grains regarding overall nutrition and satiety. Types and amounts of fruit and vegetables were identified andencouraged. Proper meal planning was discussed, specifically including protein and quality carbohydrates at each meal, with the need for colorful produce making up 1/2 the plate or bowl. Pt was discouraged from skipping meals and instead encouraged to include smaller, portion-controlled meals and/or snacks every 3-4 hours to support metabolism, energy levels and weight loss efforts. Undereating consistently may lead to overeating at other opportunities during the day, evening or night. Snacks are encouraged only if warranted, and should be intentional and portioned and should includeprotein and fiber-rich carbohydrate. Hydration was reviewed in that urine should be light in color and concentration. Fluids should include water, unsweetened teas, seltzers, low-fat dairy, etc and should limit juices, sodas and other sugar-sweetened beverages. Exercise was reviewed and encouraged as tolerated to support overall health and weight loss goals and glycemic control. Literature Provided: Goal Sheets, RD Contact Information, and Wt Management Tips and DM Basics handouts Monitoring/Evaluation: Monitor weight, Monitor progress towards nutrition goals, and Monitor compliance with program overall Reviewed current weight, checked food recall, reviewed labs and questioned patient to confirm understanding and clarifications provided as needed. Patient goals: Exercise: continue as tolerated Hydration: goal to include 9-11 cups fluids daily Sleep: aim for 7+ hours restful sleep nightly Dietary pattern: include protein and fiber every 3-4 hours to support active metabolism and/or blood sugar control At all meals be sure to include protein foundation (lean animal-based OR plant- based options) and balance plate with proper portion (1/4 plate) whole grain or starch (3-5g fiber per serving) and natural and vibrant color from fruit or vegetable. Fruit recommendations due to more fiber (edible skin and seeds): 1. All berries 2. [place], apples, pears, peaches, plums, etc. 3. Melons such as honeydew, canteloupe, watermelon, etc. 4. Tropical fruits: banana (1/2 only), uzma, pineapple, etc. Vegetables 2x/day (/2 plate) Limit all juice, lemonade and sugar-sweetened beverages Limit eggs to one whole egg and add additional egg whites Keep grains and starches to 1/4 of the plate Follow-Up RD to see patient for follow-up in 4 months. Number of MEU accrued after this appointment ( total): 4 MEU (60 minutes) Visit Time: The total time of this visit was 60 mins minutes of which we spent 60 mins minutes in direct mzay-du-xbre consultation for nutrition counseling. Bruna Caballero MS, RDN, LDN Registered Dietitian NUTRITION SERVICES documented in this encounter Plan of Treatment Upcoming Encounters Date Type Department Care Team (Late st Contact Info) Description 08/07/2024 9:30 AM EDT Office Visit Orthopedic Surgery - [place] [address] [phone] Duke Dunn DPM [address] [address] 08/21/2024 8:30 AM EDT Appointment [facility] Endoscopy [address] [place] [phone] Dena Carrasco MD [address] [address] 08/22/2024 1:30 PM EDT Office Visit Obstetrics & Gynecology - [facility] [address] [place] [phone] Nguyen Crespo, CNM [address] [place] [address] 09/08/2024 11:15 AM EDT Office Visit Endocrinology - [place] [address] [place], [place] [phone] Jayesh Pineda MD [address] [place] [address] 09/22/2024 8:45 AM EDT Office Visit Pulmonolgy [address] [phone] Pretty Le MD [address] [place] [address] 10/01/2024 7:30 AM EDT Office Visit Adult Medicine [address] [phone] Paula Garnica PA [address] [place] [address] 12/05/2024 11:00 AM EDT Office Visit Orthopedic Surgery [address] [phone] Genny Arreguin PA [address] [place] [address] 12/09/2024 9:00 AM EDT Nutrition Internal Medicine [address] [phone] Bruna Caballero, RD [address] [place] [phone] 12/12/2024 8:30 AM EDT Office Visit Adult Medicine [address] [phone] Ora Sweeney MD [address] [place] [address] documented as of this encounter Visit Diagnoses Diagnosis Controlled type 2 diabetes mellitus without complication, without long-term current use of insulin ([facility] V24, [facility] V28)- Primary Morbid obesity ([facility] V24, [facility] V28) Morbid obesity documented in this encounter Additional Health Concerns Assessment Noted Time PHQ-9 Depression Total Score: 0 06/12/19 25 7:16 PM EDT documented as of this encounter Care Teams Fullerette Relationship Specialty Start Date End Date Ora Sweeney MD [address] [place] [address] PCP - General Internal Medicine 01/09/24 documented as of this encounter
--- OUTSIDE RECORDS SUMMARY | 2024-07-30 10:27 | XMS_ITS | Encounter Summary ---
Author Organization [facility] Address [address] [place] [address] Care Team Providers Care Auto Parts Counter Person Name Role Phone Ora Ronquillo MD Primary Care Prov ider Jl Mendez MD Unavailable [phone] Jannette Boudreaux MD Unavailable [phone] Tenisha Mendieta PA-C Unavailable [phone] Julio Monk PA-C Unavailable Luis Armando Eller MD Unavailable [phone] Jayesh Pineda MD Unavailable Kelsi Tejada MD Unavailable Unavailable Pretty Le MD Unavailable Vesta Michael PA-C Unavailable [phone] [facility] Unavailable Reason for Visit * Reason Onset Date Comments REFERRAL 11/06/2022 Encounter Details Date Type Department Care Team Description 11/06/2022 Telephone Adult Medicine [address] [phone] Ora Ronquillo MD [address] [place] [id number] REFERRAL Social History Tobacco Use Types Packs/Day Years Used Date Smoking Tobacco: Never Smokeless Tobacco: Never Alcohol Use Standard Drinks/Week Comments No 0 (1 standard drink = 0.6 oz pur e alcohol) Education Answer Date Recorded What is the highest level of school you have completed or the highest degree you have received? 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, SOLE LEVELER, CHANDRAKANT) 06/14/2020 Sex Assigned at Date Recorded [...] insurance does the patient have today? Payor: [facility] FFS / Plan: [facility] [employer] / Product Type: MEDICAID [id number] Effective 12/10/08: [...] insurance must be obtained and registered in [facility] or their referral can not [...] YES Is this visit:Initial Visit Address of Specialist:[address] [place] [address] , [address] , [facility] [address] Phone # of Specialist: Fax #: (if applicable): Does patient have an appointment scheduled?: NO Date of appointment- (including a retro-request): Is this appointment related to: Not MVA, WC or Surgery related documented in this encounter Plan of Treatment Not on file documented as of this encounter Visit Diagnoses Not on filedocumented in this encounter Care Teams Auto Parts Counter Person Relationship Specialty Start Date End Date Ora Ronquillo MD [address] [place] [address] PCP - General Internal Medicine 10/11/21 Jl Mendez MD [address] [place] [address] Dr Montiel [address] [place] [address] Specialist Cardiovascular Disease 10/13/21 Jannette Boudreaux MD 175 [facility] [address] [place] [address] Surgeon Neurosurgery 04/07/22 Tenisha Mendieta PA-C 175 [facility] [address] [place] [address] Specialist Neurosurgery 04/07/22 Julio Monk PA-C 175 [facility] [address] [place] [address] Specialist Neurosurgery 04/07/22 Luis Armando Eller MD 175 [facility] [address] [place] [address] Specialist ORTHOPEDIC SURGERY 10/01/23 Jayesh Pineda MD 305 [place] [address] Specialist Endocrinology 10/01/23 Kelsi Tejada MD 305 [place] [address] Specialist Allergy & Immunology 10/01/23 Pretty Le MD [address] [facility] [address] [place] [phone] Specialist Pulmonology 10/01/23 Vesta Michael PA-C 300 [facility] [address] [place] [address] Specialist Vascular Surgery 10/01/23 [facility] [address] [place] [address] Specialist Optometry 10/01/23 documented as of this encounter
--- OUTSIDE RECORDS SUMMARY | 2024-07-30 10:27 | XMS_ITS | Encounter Summary ---
Author Organization [facility] Address [address] [place] [address] Care Team Providers Care Airfield Engineer Officer Name Role Phone Ora Ronquillo MD Primary Care Prov ider Jl Mendez MD Unavailable Jannette Boudreaux MD Unavailable [phone] Tenisha Mendieta PA-C Unavailable Julio MonkC Unavailable Luis Armando Eller MD Unavailable [phone] Jayesh Pineda MD Unavailable Kelsi Tejada MD Unavailable Unavailable Pretty Le MD Unavailable Vesta Michael PA-C Unavailable [phone] [facility] Unavailable [phone] Encounter Details Date Type Department Care Team Description 11/14/2022 Dialysis Rn Report Medical Records [address] [place] [address] Jensen Nam MD Social History Tobacco Use Types Packs/Day Years Used Date Smoking Tobacco: Never Smokeless Tobacco: Never Alcohol Use Standard Drinks/Week Comments No 0 (1 standard drink = 0.6 oz pur e alcohol) Education Answer Date Recorded What is the highest level of school you have completed or the highest degree you have received? 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, BRIDGE REPAIR CREW PERSON, CHANDRAKANT) 06/14/2020 Sex Assigned at Date Recorded [...] on filedocumented in this encounter Care Teams Airfield Engineer Officer Relationship Specialty Start Date End Date Ora Ronquillo MD [address] [place] [address] PCP - General Internal Medicine 10/11/21 Jl Mendez MD [address] [place] [address] Dr Mont[address] [place] [address] Specialist Cardiovascular Disease 10/13/21 Jannette Boudreaux MD 175 [facility] [address] [place] [address] Surgeon Neurosurgery 04/07/22 Tenisha Mendieta PA-C [address] [address] Specialist Neurosurgery 04/07/22 Julio Monk PA-C 175 [facility] 300 [place] [address] Specialist Neurosurgery 04/07/22 Luis Armando Eller MD [address] [address] Specialist ORTHOPEDIC SURGERY 10/01/23 Jayesh Pineda MD 305 [place] [address] Specialist Endocrinology 10/01/23 Kelsi Tejada MD 305 [place] [address] Specialist Allergy & Immunology 10/01/23 Pretty Le MD 175 [facility] 200 [place] [address] Specialist Pulmonology 10/01/23 Vesta Michael PA-C 300 [facility] [address] [place] [address] Specialist Vascular Surgery 10/01/23 [facility] [address] [place] [address] Specialist Optometry 10/01/23 documented as of this encounter
--- OUTSIDE RECORDS SUMMARY | 2024-07-30 10:27 | XMS_ITS | Encounter Summary ---
Author Organization [facility] Address [address] [place] [address] Care Team Providers Care Rougher Merchant Mill Name Role Phone Ora Ronquillo MD Primary Care Prov ider Jl Mendez MD Unavailable Jannette Boudreaux MD Unavailable [phone] Tenisha Mendieta PA-C Unavailable Julio Monk PA-C Unavailable [phone] Luis Armando Eller MD Unavailable [phone] Jayesh Pineda MD Unavailable Kelsi Tejada MD Unavailable Unavailable Pretty Le MD Unavailable Vesta Michael PA-C Unavailable [phone] [facility] Unavailable Encounter Details Date Type Department Care Team Description 05/21/2023 Refill Endocrinology - [facility] [address] [place] [address] Jayesh Pineda MD 305 [place], [place] [id number] Social History Tobacco Use Types Packs/Day Years Used Date Smoking Tobacco: Never Smokeless Tobacco: Never Alcohol Use Standard Drinks/Week Comments No 0 (1 standard drink = 0.6 oz pur e alcohol) Education Answer Date Recorded What is the highest level of school you have completed or the highest degree you have received? 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, SPECIALIST PHYSICIAN, CHANDRAKANT) 06/14/2020 Sex Assigned at Date Recorded [...] (HCC) documented in this encounter Care Teams Rougher Merchant Mill Relationship Specialty Start Date End Date Ora Ronquillo MD 4 [place] [address] PCP - General Internal Medicine 10/11/21 Jl Mendez MD [address] [place] [address] Dr Montiel [address] [place] [address] Specialist Cardiovascular Disease 10/13/21 Jannette Boudreaux MD [address] [address] Surgeon Neurosurgery 04/07/22 Tenisha Mendieta PA-C [address] [address] Specialist Neurosurgery 04/07/22 Julio Monk PA-C [address] [address] Specialist Neurosurgery 04/07/22 Luis Armando Eller MD 175 [facility] 250 [place] [address] Specialist ORTHOPEDIC SURGERY 10/01/23 Jayesh Pineda MD 305 [place] [address] Specialist Endocrinology 10/01/23 Kelsi Tejada MD 305 [place] [address] Specialist Allergy & Immunology 10/01/23 Pretty Le MD 175 [facility] 200 [place] [address] Specialist Pulmonology 10/01/23 Vesta Michael PA-C 300 [facility] 210 [place] [address] Specialist Vascular Surgery 10/01/23 [facility] 46 [place] [address] Specialist Optometry 10/01/23 documented as of this encounter
--- OUTSIDE RECORDS SUMMARY | 2024-07-30 10:27 | XMS_ITS | Encounter Summary ---
Author Organization [facility] Address [address] [place] [address] Care Team Providers Care Manager Ems Name Role Phone Teressa Solis DO Primary Care Pro vider Unavailable Mina Pretty DO Primary Care Provider Shweta Cronin MD Primary Care Provider Ora Diaz MD Primary Care Prov ider Jl Mendez MD Unavailable [phone] Jannette Boudreaux MD Unavailable [phone] Tenisha Mendieta PA-C Unavailable Julio Monk PA-C Unavailable [phone] Luis Armando Eller MD Unavailable [phone] Jayesh Pineda MD Unavailable Kelsi Tejada MD Unavailable Unavailable Pretty Le MD Unavailable Vesta Michael PA-C Unavailable [phone] [facility] Unavailable [phone] Reason for Visit * Reason Comments E-prescribe Rx Request Encounter Details Date Type Department Care Team Description 07/15/2020 Refill Allergy [facility] 98 [address] [place] [id number] Zonia Guerrero PA-C E-prescribe Rx Request Social History Tobacco Use Types Packs/Day Years Used Date Smoking Tobacco: Never Smokeless Tobacco: Never Alcohol Use Standard Drinks/Week Comments No 0 (1 standard drink = 0.6 oz pur e alcohol) Education Answer Date Recorded What is the highest level of school you have completed or the highest degree you have received? 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, SAFETY RISK LEAD, CHANDRAKANT) 06/14/2020 Sex Assigned at Date [...] or if I should send electronically to [facility] as is pended. Thank you * Telephone Encounter - Eva Monsivais M.A. - 07/15/2020 3:57 PM EDT 05/10/2020 F/U- 11/16/2020 documented in this encounter Plan of Treatment Not on file documented as of this encounter Visit Diagnoses Not on filedocumented in this encounter Care Teams Manager Ems Relationship Specialty Start Date End Date Teressa Solis DO PCP - General Internal Medicine 12/18/13 09/15/20 Mina Pretty DO PCP - General Internal Medicine 09/16/20 Shweta Boucher MD PCP - General Internal Medicine 01/12/21 10/10/21 Ora Ronquillo MD 444 [place] [address] PCP - General Internal Medicine 10/11/21 Jl Mendez MD [address] [place] [address] Dr Montiel [address] [place] [address] Specialist Cardiovascular Disease 10/13/21 Jannette Boudreaux MD [address] [address] Surgeon Neurosurgery 04/07/22 Tenisha Mendieta PA-C [address] [address] Specialist Neurosurgery 04/07/22 Julio Monk PA-C 175 [facility] [address] [place] [address] Specialist Neurosurgery 04/07/22 Luis Armando Eller MD [address] [address] Specialist ORTHOPEDIC SURGERY 10/01/23 Jayesh Pineda MD 305 [place] [address] Specialist Endocrinology 10/01/23 Kelsi Tejada MD 305 [place] [address] Specialist Allergy & Immunology 10/01/23 Pretty Le MD 175 [facility] [address] [place] [address] Specialist Pulmonology 10/01/23 Vesta Michael PA-C 300 [facility] 210 [place] [address] Specialist Vascular Surgery 10/01/23 [facility] 46 [place] [address] Specialist Optometry 10/01/23 documented as of this encounter
--- OUTSIDE RECORDS SUMMARY | 2024-07-30 10:27 | XMS_ITS | Encounter Summary ---
Author Organization [facility] Address [address] [place] [address] Care Team Providers Care Chemical Instrumentation Officer Name Role Phone Ora Ronquillo MD Primary Care Prov ider Jl Mendez MD Unavailable Jannette Boudreaux MD Unavailable [phone] Tenisha Mendieta PA-C Unavailable Julio MonkC Unavailable [phone] Luis Armando Eller MD Unavailable [phone] Jayesh Pineda MD Unavailable Kelsi Tejada MD Unavailable Unavailable Pretty Le MD Unavailable Vesta Michael PA-C Unavailable [phone] [facility] Unavailable [phone] Encounter Details Date Type Department Care Team Description 09/26/2022 Family Independence Case Manager Report Medical Records 4 [place] [address] Jensen Nam MD Social History Tobacco Use Types Packs/Day Years Used Date Smoking Tobacco: Never Smokeless Tobacco: Never Alcohol Use Standard Drinks/Week Comments No 0 (1 standard drink = 0.6 oz pur e alcohol) Education Answer Date Recorded What is the highest level of school you have completed or the highest degree you have received? 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, REPAIRER PUMP, CHANDRAKANT) 06/14/2020 Sex Assigned at Date Recorded [...] filedocumented in this encounter Care Teams Chemical Instrumentation Officer Relationship Specialty Start Date End Date Ora Ronquillo MD 444 [place] [address] PCP - General Internal Medicine 10/11/21 Jl Mendez MD [address] [place] [address] Dr Mont[address] [place] [address] Specialist Cardiovascular Disease 10/13/21 Jannette Boudreaux MD 175 [facility] 300 [place] [address] Surgeon Neurosurgery 04/07/22 Tenisha Mendieta PA-C [address] [address] Specialist Neurosurgery 04/07/22 Julio Monk PA-C 175 [facility] [address] [place] [address] Specialist Neurosurgery 04/07/22 Luis Armando Eller MD [address] [address] Specialist ORTHOPEDIC SURGERY 10/01/23 Jayesh Pineda MD 305 [place] [address] Specialist Endocrinology 10/01/23 Kelsi Tejada MD 305 [place] [address] Specialist Allergy & Immunology 10/01/23 Pretty Le MD 175 [facility] 200 [place] [address] Specialist Pulmonology 10/01/23 Vesta Michael PA-C 300 [facility] 210 [place] [address] Specialist Vascular Surgery 10/01/23 [facility] 46 [place] [address] Specialist Optometry 10/01/23 documented as of this encounter
--- OUTSIDE RECORDS SUMMARY | 2024-07-30 10:27 | XMS_ITS | Encounter Summary ---
Author Organization [facility] Address [address] [place] [address] Care Team Providers Care Primary Products Inspectors Name Role Phone Teressa Solis DO Primary Care Pro vider Unavailable Mina Pretty DO Primary Care Provider Ailyn Shweta Pretty MD Primary Care Provider Ora Diaz MD Primary Care Prov ider Jl Mendez MD Unavailable [phone] Jannette Boudreaux MD Unavailable [phone] Tenisha Mendieta PA-C Unavailable Julio Monk PA-C Unavailable Luis Armando Eller MD Unavailable [phone] Jayesh Pineda MD Unavailable Kelsi Tejada MD Unavailable Unavailable Pretty Le MD Unavailable Vesta Michael PA-C Unavailable [facility] Unavailable [phone] Encounter Details Date Type Department Care Team Description 12/31/2018 Old Medical Records Medical Records [address] [place] [address] Abstract, Provider Social History Tobacco Use Types [...] on filedocumented in this encounter Care Teams Primary Products Inspectors Relationship Specialty Start Date End Date Teressa Solis DO PCP - General Internal Medicine 12/18/13 09/15/20 Mina Pretty DO PCP - General Internal Medicine 09/16/20 Shweta Boucher MD PCP - General Internal Medicine 01/12/21 10/10/21 Ora Ronquillo MD [address] [place] [address] PCP - General Internal Medicine 10/11/21 Jl Mendez MD [address] [place] [address] [place] [address] Specialist Cardiovascular Disease 10/13/21 Jannette Boudreaux MD [address] [address] Surgeon Neurosurgery 04/07/22 Tenisha Mendieta PA-C [address] [address] Specialist Neurosurgery 04/07/22 Julio Monk PA-C [address] [address] Specialist Neurosurgery 04/07/22 Luis Armando Eller MD [address] [address] Specialist ORTHOPEDIC SURGERY 10/01/23 Jayesh Pineda MD 305 [place] [address] Specialist Endocrinology 10/01/23 Kelsi Tejada MD 305 [place] [address] Specialist Allergy & Immunology 10/01/23 Pretty Le MD 175 [facility] [address] [place] [address] Specialist Pulmonology 10/01/23 Vesta Michael PA-C 300 [facility] [address] [place] [address] Specialist Vascular Surgery 10/01/23 [facility] 46 [place] [address] Specialist Optometry 10/01/23 documented as of this encounter
--- OUTSIDE RECORDS SUMMARY | 2024-07-30 10:27 | XMS_ITS | Encounter Summary ---
Author Organization [facility] Address [address] [place] [address] Care Team Providers Care Drop Board Worker Name Role Phone Ora Ronquillo MD Primary Care Prov ider Jl Mendez MD Unavailable Jannette Boudreaux MD Unavailable [phone] Tenisha Mendieta PA-C Unavailable [phone] Julio Monk PA-C Unavailable [phone] Luis Armando Eller MD Unavailable [phone] Jayesh Pineda MD Unavailable Kelsi Tejada MD Unavailable Unavailable Pretty Le MD Unavailable Vesta Michael PA-C Unavailable [phone] [facility] Unavailable [phone] Encounter Details Date Type Department Care Team Description 11/25/2022 [facility] Adult Medicine [address] [address] Jayesh Pineda MD [address] [place] [id number] Social History Tobacco Use Types Packs/Day Years Used Date Smoking Tobacco: Never Smokeless Tobacco: Never Alcohol Use Standard Drinks/Week Comments No 0 (1 standard drink = 0.6 oz pur e alcohol) Education Answer Date Recorded What is the highest level of school you have completed or the highest degree you have received? 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, WALLPAPER INSPECTOR AND SHIPPER, CHANDRAKANT) 06/14/2020 Sex Assigned at Date Recorded [...] on filedocumented in this encounter Care Teams Drop Board Worker Relationship Specialty Start Date End Date Ora Ronquillo MD [address] [place] [address] PCP - General Internal Medicine 10/11/21 Jl Mendez MD [address] [place] [address] Dr Mont[address] [place] [address] Specialist Cardiovascular Disease 10/13/21 Jannette Boudreaux MD [address] [address] Surgeon Neurosurgery 04/07/22 Tenisha Mendieta PA-C [address] [address] Specialist Neurosurgery 04/07/22 Julio Monk PA-C 175 [facility] 300 [place] [address] Specialist Neurosurgery 04/07/22 Luis Armando Eller MD 175 [facility] 250 [place] [address] Specialist ORTHOPEDIC SURGERY 10/01/23 Jayesh Pineda MD 305 [place] [address] Specialist Endocrinology 10/01/23 Kelsi Tejada MD 305 [place] [address] Specialist Allergy & Immunology 10/01/23 Pretty Le MD 175 [facility] 200 [place] [address] Specialist Pulmonology 10/01/23 Vesta Michael PA-C 300 [facility] 210 [place] [address] Specialist Vascular Surgery 10/01/23 [facility] 46 [place] [address] Specialist Optometry 10/01/23 documented as of this encounter
--- OUTSIDE RECORDS SUMMARY | 2024-07-30 10:27 | XMS_ITS | Encounter Summary ---
Author Organization [facility] Address [address] [place] [address] Care Team Providers Care Ocean Transportation Intermediary Name Role Phone Teressa Solis DO Primary Care Pro vider Unavailable Mina Pretty DO Primary Care Provider Ailyn Shweta Pretty MD Primary Care Provider Ora Diaz MD Primary Care Prov ider Jl Mendez MD Unavailable Jannette Boudreaux MD Unavailable [phone] Tenisha Mendieta PA-C Unavailable Julio Monk PA-C Unavailable Luis Armando Eller MD Unavailable [phone] Jayesh Pineda MD Unavailable Kelsi Tejada MD Unavailable Unavailable Pretty Le MD Unavailable Vesta Michael PA-C Unavailable [facility] Unavailable Encounter Details Date Type Department Care Team Description 06/11/2018 Orders Only Adult Medicine [address] [id number] Teressa Solis DO Hypothyroidism due to acquired [...] Primary documented in this encounter Care Teams Ocean Transportation Intermediary Relationship Specialty Start Date End Date Teressa Solis DO PCP - General Internal Medicine 12/18/13 09/15/20 Mina Pretty DO PCP - General Internal Medicine 09/16/20 1 Shweta Tellez MD PCP - General Internal Medicine 01/12/21 10/10/21 Ora Ronquillo MD [address] [place] [address] PCP - General Internal Medicine 10/11/21 Jl Mendez MD [address] [place] [address] Dr Montiel 410 [place] [address] Specialist Cardiovascular Disease 10/13/21 Jannette Boudreaux MD [address] [address] Surgeon Neurosurgery 04/07/22 Tenisha Mendieta PA-C 175 [facility] 300 [place] [address] Specialist Neurosurgery 04/07/22 Julio Monk PA-C 175 [facility] [address] [place] [address] Specialist Neurosurgery 04/07/22 Luis Armando Eller MD 175 [facility] 250 [place] [address] Specialist ORTHOPEDIC SURGERY 10/01/23 Jayesh Pineda MD 305 [place] [address] Specialist Endocrinology 10/01/23 Kelsi Tejada MD 305 [place] [address] Specialist Allergy & Immunology 10/01/23 Pretty Le MD 175 [facility] [address] [place] [address] Specialist Pulmonology 10/01/23 Vesta Michael PA-C 300 [facility] 210 [place] [address] Specialist Vascular Surgery 10/01/23 [facility] 46 [place] [address] Specialist Optometry 10/01/23 documented as of this encounter
--- OUTSIDE RECORDS SUMMARY | 2024-07-30 10:27 | XMS_ITS | Encounter Summary ---
Author Organization [facility] Address [address] [place] [address] Care Team Providers Care Consumer Marketing Manager Name Role Phone Teressa Solis DO Primary Care Pro vider Unavailable Mina Pretty DO Primary Care Provider Ailyn Shweta Pretty MD Primary Care Provider Ora Diaz MD Primary Care Prov ider Jl Mendez MD Unavailable Jannette Boudreaux MD Unavailable [phone] Tenisha Mendieta PA-C Unavailable [phone] Julio Monk PA-C Unavailable [phone] Luis Armando Eller MD Unavailable [phone] Jayesh Pineda MD Unavailable Kelsi Tejada MD Unavailable Unavailable Pretty Le MD Unavailable Vesta Michael PA-C Unavailable [phone] [facility] Unavailable Encounter Details Date Type Department Care Team Description 06/01/2020 Compensation/Benefits Specialist Report Medical Records 4 [place] [address] Abstract, Provider Social History Tobacco Use Types [...] on filedocumented in this encounter Care Teams Consumer Marketing Manager Relationship Specialty Start Date End Date Teressa Solis DO PCP - General Internal Medicine 12/18/13 09/15/20 Mina Pretty DO PCP - General Internal Medicine 09/16/20 Shweta Boucher MD PCP - General Internal Medicine 01/12/21 10/10/21 Ora Ronquillo MD [address] [place] [address] PCP - General Internal Medicine 10/11/21 Jl Mendez MD [address] [place] [address] Dr Montiel [address] [place] [address] Specialist Cardiovascular Disease 10/13/21 Jannette Boudreaux MD [address] [address] Surgeon Neurosurgery 04/07/22 Tenisha Mendieta PA-C [address] [address] Specialist Neurosurgery 04/07/22 Julio Monk PA-C 175 [facility] [address] [place] [address] Specialist Neurosurgery 04/07/22 Luis Armando Eller MD [address] [address] Specialist ORTHOPEDIC SURGERY 10/01/23 Jayesh Pineda MD [address] [place] [address] Specialist Endocrinology 10/01/23 Kelsi Tejada MD 305 [place] [address] Specialist Allergy & Immunology 10/01/23 Pretty Le MD 175 [facility] [address] [place] [address] Specialist Pulmonology 10/01/23 Vesta Michael PA-C 300 [facility] 210 [place] [address] Specialist Vascular Surgery 10/01/23 [facility] 46 [place] [address] Specialist Optometry 10/01/23 documented as of this encounter
--- OUTSIDE RECORDS SUMMARY | 2024-07-30 10:27 | XMS_ITS | Encounter Summary ---
Author Organization [facility] Address [address] [place] [address] Care Team Providers Care Personal Caregiver Name Role Phone Teressa Solis DO Primary Care Pro vider Unavailable Mina Pretty DO Primary Care Provider Shweta Cronin MD Primary Care Provider Ora Diaz MD Primary Care Prov ider Jl Mendez MD Unavailable [phone] Jannette Boudreaux MD Unavailable [phone] Tenisha Mendieta PA-C Unavailable [phone] Julio Monk PA-C Unavailable [phone] Luis Armando Eller MD Unavailable [phone] Jayesh Pineda MD Unavailable Kelsi Tejada MD Unavailable Unavailable Pretty Le MD Unavailable Vesta Michael PA-C Unavailable [phone] [facility] Unavailable Reason for Visit * Reason Comments E-prescribe Rx Request Encounter Details Date Type Department Care Team Description 07/17/2018 Refill Adult Medicine [address] [id number] Teressa Solis DO E-prescribe Rx Request Social [...] N/A Patients current insurance carrier is: Payor: [employer] FFS / Plan: [employer] / Product Type: MEDICAID RISK documented in this encounter Plan of Treatment Not on file documented as of this encounter Visit Diagnoses Not on filedocumented in this encounter Care Teams Personal Caregiver Relationship Specialty Start Date End Date Teressa Slois DO PCP - General Internal Medicine 12/18/13 09/15/20 Mina Pretty DO PCP - General Internal Medicine 09/16/20 Shweta Boucher MD PCP - General Internal Medicine 01/12/21 10/10/21 Ora Ronquillo MD [address] [place] [address] PCP - General Internal Medicine 10/11/21 Jl Mendez MD [address] [place] [address] Dr Montiel [address] [place] [address] Specialist Cardiovascular Disease 10/13/21 Jannette Boudreaux MD [address] [address] Surgeon Neurosurgery 04/07/22 Tenisha Mendieta PA-C [address] [address] Specialist Neurosurgery 04/07/22 Julio Monk PA-C 175 [facility] [address] [place] [address] Specialist Neurosurgery 04/07/22 Luis Armando Eller MD [address] [address] Specialist ORTHOPEDIC SURGERY 10/01/23 Jayesh Pineda MD 305 [place] [address] Specialist Endocrinology 10/01/23 Kelsi Tejada MD 305 [place] [address] Specialist Allergy & Immunology 10/01/23 Pretty Le MD 175 [facility] [address] [place] [address] Specialist Pulmonology 10/01/23 Vesta Michael PA-C 300 [facility] 210 [place] [address] Specialist Vascular Surgery 10/01/23 [facility] 46 [place] [address] Specialist Optometry 10/01/23 documented as of this encounter
--- OUTSIDE RECORDS SUMMARY | 2024-07-30 10:27 | XMS_ITS | Encounter Summary ---
Author Organization [facility] Address [address] [place] [address] Care Team Providers Care Harbour Master Name Role Phone Teressa Solis DO Primary Care Pro vider Unavailable Mina Pretty DO Primary Care Provider Shweta Cronin MD Primary Care Provider Ora Diaz MD Primary Care Prov ider Jl Mendez MD Unavailable [phone] Jannette Boudreaux MD Unavailable [phone] Tenisha Mendieta PA-C Unavailable Julio Monk PA-C Unavailable [phone] Luis Armando Eller MD Unavailable [phone] Jayesh Pineda MD Unavailable Kelsi Tejada MD Unavailable Unavailable Pretty Le MD Unavailable Vesta Michael PA-C Unavailable [phone] [facility] Unavailable Reason for Visit * Reason Comments E-prescribe Rx Request Encounter Details Date Type Department Care Team Description 07/05/2020 Refill Medicine/Pediatrics [address] [phone] Teressa Solis DO E-prescribe Rx Request Social [...] 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, GAMEPLAY ENGINEER, CHANDRAKANT) 06/14/2020 Sex Assigned at Date [...] N/A Patients current insurance carrier is: Payor: [employer] FFS / Plan: [facility] [place] [place] / Product Type: MEDICAID RISK documented in this encounter Plan of Treatment Not on file documented as of this encounter Visit Diagnoses Not on filedocumented in this encounter Care Teams Harbour Master Relationship Specialty Start Date End Date Teressa Solis DO PCP - General Internal Medicine 12/18/13 09/15/20 Mina Pretty DO PCP - General Internal Medicine 09/16/20 Shweta Boucher MD PCP - General Internal Medicine 01/12/21 10/10/21 Ora Roqnuillo MD [address] [place] [address] PCP - General Internal Medicine 10/11/21 Jl Mendez MD [address] [place] [address] Dr Montiel [address] [place] [address] Specialist Cardiovascular Disease 10/13/21 Jannette Boudreaux MD [address] [address] Surgeon Neurosurgery 04/07/22 Tenisha Mendieta PA-C [address] [address] Specialist Neurosurgery 04/07/22 Julio Monk PA-C 175 [facility] [address] [place] [address] Specialist Neurosurgery 04/07/22 Luis Armando Eller MD [address] [address] Specialist ORTHOPEDIC SURGERY 10/01/23 Jayesh Pineda MD 305 [place] [address] Specialist Endocrinology 10/01/23 Kelsi Tejada MD 305 [place] [address] Specialist Allergy & Immunology 10/01/23 Pretty Le MD 175 [facility] [address] [place] [address] Specialist Pulmonology 10/01/23 Vesta Michael PA-C 300 [facility] 210 [place] [address] Specialist Vascular Surgery 10/01/23 [facility] [address] [place] [address] Specialist Optometry 10/01/23 documented as of this encounter
--- OUTSIDE RECORDS SUMMARY | 2024-07-30 10:27 | XMS_ITS | Encounter Summary ---
Author Organization [facility] Address [address] [place] [address] Care Team Providers Care Photographic Developer And Printer Name Role Phone Mina Pretty DO Primary Care Provider Shweta Cronin MD Primary Care Provider Ora Diaz MD Primary Care Prov ider Jl Mendez MD Unavailable [phone] Jannette Boudreaux MD Unavailable [phone] Tenisha Mendieta PA-C Unavailable Julio Monk PA-C Unavailable Luis Armando Eller MD Unavailable [phone] Jayesh Pineda MD Unavailable Kelsi Tejada MD Unavailable Unavailable Pretty Le MD Unavailable Vesta Michael PA-C Unavailable [facility] Unavailable Reason for Visit * Reason Onset Date Comments APPOINTMENT 11/02/2020 Testing 11/02/2020 Encounter Details Date Type Department Care Team Description 11/02/2020 Telephone Vascular Surgery - [place] [address] [place] [address] Vesta Michael PA-C 300 [facility] [address] [place] [address] APPOINTMENT; Testing Social History Tobacco Use Types Packs/Day Years Used Date Smoking Tobacco: Never Smokeless Tobacco: Never Alcohol Use Standard Drinks/Week Comments No 0 (1 standard drink = 0.6 oz pur e alcohol) Education Answer Date Recorded What is the highest level of school you have completed or the highest degree you have received? 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, MARINE ELECTRONICS TECHNICIAN, CHANDRAKANT) 06/14/2020 Sex Assigned at Date [...] Thank you!! * Telephone Encounter - Nereyda Thaukr - 11/02/2020 1:48 PM EDT Kenneth, Could [...] faxed by the Prior Auth staff to [facility] for Scheduling. [facility] telephone number is , Fax is documented in this encounter Plan of Treatment Not on file documented as of this encounter Visit Diagnoses Not on filedocumented in this encounter Care Teams Photographic Developer And Printer Relationship Specialty Start Date End Date Mina Pretty DO PCP - General Internal Medicine 09/16/20 1 Shweta Tellez MD PCP - General Internal Medicine 01/12/21 10/10/21 Ora Ronquillo MD [address] [place] [address] PCP - General Internal Medicine 10/11/21 Jl Mendez MD [address] [place] [address] Dr Mont[address] [place] [address] Specialist Cardiovascular Disease 10/13/21 Jannette Boudreaux MD [address] [address] Surgeon Neurosurgery 04/07/22 Tenisha Mendieta PA-C [address] [address] Specialist Neurosurgery 04/07/22 Julio Monk PA-C 175 [facility] [address] [place] [address] Specialist Neurosurgery 04/07/22 Luis Armando Eller MD [address] [address] Specialist ORTHOPEDIC SURGERY 10/01/23 Jayesh Pineda MD [address] [place] [address] Specialist Endocrinology 10/01/23 Kelsi Tejada MD 305 [place] [address] Specialist Allergy & Immunology 10/01/23 Pretty Le MD 175 [facility] [address] [place] [address] Specialist Pulmonology 10/01/23 Vesta Michael PA-C 300 [facility] 210 [place] [address] Specialist Vascular Surgery 10/01/23 [facility] 46 [place], [place] [phone] Specialist Optometry 10/01/23 documented as of this encounter
--- OUTSIDE RECORDS SUMMARY | 2024-07-30 10:27 | XMS_ITS | Encounter Summary ---
Author Organization [facility] Address [address] [place] [address] Care Team Providers Care Unloader Name Role Phone Ora Sweeney MD Primary Care Prov ider Reason for Visit * Reason Onset Date Comments Rectal Bleeding 06/24/2024 Earache 06/24/2024 Encounter Details Date Type Department Care Team ([facility] Contact Info) Description 06/24/2024 Telephone Adult Medicine [address] [address] Belia Kim MA Rectal Bleeding; Earache Social History Tobacco Use Types Packs/Day Years [...] care for your loved ones. For example, special needs child caregiver or elderly care for an older adult? [...] 2:43 PM EDT Sexual Orientation Straight 06/30/2024 2 :43 PM EDT documented as of this encounter Progress Notes * Vy Eisenberg RN - 06/24/2024 9:35 AM EDT Pt. States she has had issues with rectal spotting for a little while now but progressively gettingworse over last 5 days . Now after every BM she has bright red blood, no pain . It saturates the paper and drips in the toilet but does not fill the toilet. She has had issues with constipation over the last 4 days . Stools are hard and black . She had episode of dizziness yesterday lasting 5 seconds which prompted her to call today . No cp , no sob no dizziness at present time . She denies her abd. Is distended ,has had mild discomfort .Bs 130's Did not take Pepto Bismol. I advised with black stools to be evaluated in the ER. Pt. Agrees and will have someone bring her * Belia Kim MA - 06/24/2024 8:54 AM EDT Patient call requires triage: Symptoms patient is presenting: Blood in stool for 5 days and Left ear pain for 2 days.. How long has patient had these symptoms?: For ALL patients calling to schedule any [...] traveled recently to another state outside of [place], [place], [place], [place], [place], [place], [place]? no o If yes, did you quarantine [...] yes, gather 3rd democrat insurance information Third Libertarian Information: not applicable PCP: Ora Couch MD Payor: [employer] MEDICARE ADVANTAGE / Plan: [employer] PENITENTIARY OPTIONS / Product Type: *No Product type* / documented in this encounter Plan of Treatment Upcoming Encounters Date Type Department Care Team (Late st Contact Info) Description 08/07/2024 9:30 AM EDT Office Visit Orthopedic Surgery - [place] [address] [phone] Duke Dunn DPM [address] [address] 08/21/2024 8:30 AM EDT Appointment [facility] Endoscopy [address] [place] [phone] Dena Carrasco MD [address] [address] 08/22/2024 1:30 PM EDT Office Visit Obstetrics & Gynecology - [address] [phone] Nguyen Crespo, ALFONSOM [address] [place] [address] 09/08/2024 11:15 AM EDT Office Visit Endocrinology - [address] [phone] Jayesh Pineda MD 305 [place] [address] 09/22/2024 8:45 AM EDT Office Visit Pulmonolgy - [address] [phone] Pretty Le MD [address] [address] 10/01/2024 7:30 AM EDT Office Visit Adult Medicine East - [address] [phone] Paula Garnica PA [address] [place] [address] 12/05/2024 11:00 AM EDT Office Visit Orthopedic Surgery - [place] 160 175 [facility] 160 [place] [phone] Genny Arreguin PA 175 [facility] 160 [place] [address] 12/09/2024 9:00 AM EDT Nutrition Internal Medicine - [place] 175 [facility] 200 [place] [phone] Bruna Caballero, LESLY 175 [place] [phone] 12/12/2024 8:30 AM EDT Office Visit Adult Medicine [address] [address] Ora Sweeney MD [address] [place] [address] documented as of this encounter Visit Diagnoses Not on filedocumented in this encounter Additional Health Concerns Assessment Noted Time PHQ-9 Depression Total Score: 0 06/12/19 25 7:16 PM EDT documented as of this encounter Care Teams Unloader Relationship Specialty Start Date End Date Ora Sweeney MD [address] [place] [address] PCP - General Internal Medicine 01/09/24 documented as of this encounter
--- OUTSIDE RECORDS SUMMARY | 2024-07-30 10:27 | XMS_ITS | Encounter Summary ---
Author Organization [facility] Address [address] [place] [address] Care Team Providers Care Gripper Machine Operator Name Role Phone Teressa Solis DO Primary Care Pro vider Unavailable Mina Pretty DO Primary Care Provider Ailyn Shweta Pretty MD Primary Care Provider Ora Diaz MD Primary Care Prov ider Jl Mendez MD Unavailable Jannette Boudreaux MD Unavailable [phone] Tenisha Mendieta PA-C Unavailable Julio Monk PA-C Unavailable Luis Armando Eller MD Unavailable [phone] Jayesh Pineda MD Unavailable Kelsi Tejada MD Unavailable Unavailable Pretty Le MD Unavailable Vesta Michael PA-C Unavailable [facility] Unavailable [phone] Encounter Details Date Type Department Care Team Description 06/10/2020 Refill Gastroenterology [facility] 175 [facility] [address] [place] [address] Luis Armando Staton MD Social [...] on filedocumented in this encounter Care Teams Gripper Machine Operator Relationship Specialty Start Date End Date Teressa Solis DO PCP - General Internal Medicine 12/18/13 09/15/20 Mina Pretty DO PCP - General Internal Medicine 09/16/20 1 Shweta Tellez MD PCP - General Internal Medicine 01/12/21 10/10/21 Ora Ronquillo MD [address] [place] [address] PCP - General Internal Medicine 10/11/21 Jl Mendez MD [address] [place] [address] Dr Mont[address] [place] [address] Specialist Cardiovascular Disease 10/13/21 Jannette Boudreaux MD [address] [address] Surgeon Neurosurgery 04/07/22 Tenisha Mendieta PA-C [address] [address] Specialist Neurosurgery 04/07/22 Julio Monk PA-C [address] [address] Specialist Neurosurgery 04/07/22 Luis Armando Eller MD 175 [facility] 250 [place] [address] Specialist ORTHOPEDIC SURGERY 10/01/23 Jayesh Pineda MD 305 [place] [address] Specialist Endocrinology 10/01/23 Kelsi Tejada MD 305 [place] [address] Specialist Allergy & Immunology 10/01/23 Pretty Le MD 175 [facility] [address] [place] [address] Specialist Pulmonology 10/01/23 Vesta Michael PA-C 300 [facility] 210 [place] [address] Specialist Vascular Surgery 10/01/23 [facility] 46 [place] [address] Specialist Optometry 10/01/23 documented as of this encounter
--- OUTSIDE RECORDS SUMMARY | 2024-07-30 10:27 | XMS_ITS | Encounter Summary ---
Author Organization [facility] Address [address] [place] [address] Care Team Providers Care Fish Roe Processor Name Role Phone Ora Ronquillo MD Primary Care Prov ider Jl Mednez MD Unavailable Jannette Boudreaux MD Unavailable [phone] Tenisha Mendieta PA-C Unavailable Julio Monk PA-C Unavailable [phone] Luis Armando Eller MD Unavailable [phone] Jayesh Pineda MD Unavailable Kelsi Tejada MD Unavailable Unavailable Pretty Le MD Unavailable Vesta Mihcael PA-C Unavailable [phone] [facility] Unavailable [phone] Encounter Details Date Type Department Care Team Description 01/09/2023 SCAN [facility] Medical [facility] 175 [facility] [address] [place] [phone] Lorie Moore, DONN [address] [facility] [place] [address] Social History Tobacco Use Types Packs/Day Years Used Date Smoking Tobacco: Never Smokeless Tobacco: Never Alcohol Use Standard Drinks/Week Comments No 0 (1 standard drink = 0.6 oz pur e alcohol) Education Answer Date Recorded What is the highest level of school you have completed or the highest degree you have received? 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, MEDICAL CHEMIST, CHANDRAKANT) 06/14/2020 Sex Assigned at Date Recorded [...] on filedocumented in this encounter Care Teams Fish Roe Processor Relationship Specialty Start Date End Date Ora Ronquillo MD 444 [place] [address] PCP - General Internal Medicine 10/11/21 Jl Mendez MD [address] [place] [address] Dr Montiel [address] [place] [address] Specialist Cardiovascular Disease 10/13/21 Jannette Boudreaux MD [address] [address] Surgeon Neurosurgery 04/07/22 Tenisha Mendieta PA-C [address] [address] Specialist Neurosurgery 04/07/22 Julio Monk PA-C 175 [facility] [address] [place] [address] Specialist Neurosurgery 04/07/22 Luis Armando Eller MD [address] [address] Specialist ORTHOPEDIC SURGERY 10/01/23 Jayesh Pineda MD 305 [place] [address] Specialist Endocrinology 10/01/23 Kelsi Tejada MD 305 [place] [address] Specialist Allergy & Immunology 10/01/23 Pretty Le MD 175 [facility] [address] [place] [address] Specialist Pulmonology 10/01/23 Vesta Michael PA-C 300 [facility] 210 [place] [address] Specialist Vascular Surgery 10/01/23 [facility] 46 [place], [place] [phone] Specialist Optometry 10/01/23 documented as of this encounter
--- OUTSIDE RECORDS SUMMARY | 2024-07-30 10:27 | XMS_ITS | Encounter Summary ---
Author Organization [facility] Address [address] [place] [address] Care Team Providers Care Cdl Dedicated Truck Driver Name Role Phone Mina Pretty DO Primary Care Provider Shweta Cronin MD Primary Care Provider Ora Diaz MD Primary Care Prov ider Jl Mendez MD Unavailable Jannette Boudreaux MD Unavailable [phone] Tenisha Mendieta PA-C Unavailable Julio Monk PA-C Unavailable Luis Armando Eller MD Unavailable [phone] Jayesh Pineda MD Unavailable Kelsi Tejada MD Unavailable Unavailable Pretty Le MD Unavailable Vesta Michael PA-C Unavailable [phone] [facility] Unavailable [phone] Reason for Visit * Reason Onset Date Comments APPOINTMENT 12/24/2020 pt needs to jasmina se a new pcp and schedule med fu appt for further refills Encounter Details Date Type Department Care Team Description 12/24/2020 [facility] [address] [phone] Mina Pretty DO APPOINTMENT (pt needs to [...] 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, AIRCRAFT REFUELLER, CHANDRAKANT) 06/14/2020 Sex Assigned at Date Recorded [...] filedocumented in this encounter Care Teams Cdl Dedicated Truck Driver Relationship Specialty Start Date End Date Mina Pretty DO PCP - General Internal Medicine 09/16/20 1 Shweta Tellez MD PCP - General Internal Medicine 01/12/21 10/10/21 Ora Ronquillo MD [address] [place] [address] PCP - General Internal Medicine 10/11/21 Jl Mendez MD [address] [place] [address] Dr Mont[address] [place] [address] Specialist Cardiovascular Disease 10/13/21 Jannette Boudreaux MD [address] [address] Surgeon Neurosurgery 04/07/22 Tenisha Mendieta PA-C [address] [address] Specialist Neurosurgery 04/07/22 Julio Monk PA-C [address] [address] Specialist Neurosurgery 04/07/22 Luis Armando Eller MD 175 [facility] [address] [place] [address] Specialist ORTHOPEDIC SURGERY 10/01/23 Jayesh iPneda MD 305 [place] [address] Specialist Endocrinology 10/01/23 Kelsi Tejada MD 305 [place] [address] Specialist Allergy & Immunology 10/01/23 Pretty Le MD 175 [facility] [address] [place] [address] Specialist Pulmonology 10/01/23 Vesta Michael PA-C 300 [facility] [address] [place] [address] Specialist Vascular Surgery 10/01/23 [facility] 46 [place] [address] Specialist Optometry 10/01/23 documented as of this encounter
--- OUTSIDE RECORDS SUMMARY | 2024-07-30 10:28 | XMS_ITS | Encounter Summary ---
Author Organization [facility] Address [address] [place] [address] Care Team Providers Care Tumbler Machine Operator Helper Name Role Phone Teressa Solis DO Primary Care Pro vider Unavailable Mina Pretty DO Primary Care Provider Ailyn Shweta Pretty MD Primary Care Provider Ora Diaz MD Primary Care Prov ider Jl Mendez MD Unavailable Jannette Boudreaux MD Unavailable [phone] Tenisha Mendieta PA-C Unavailable [phone] Julio Monk PA-C Unavailable Luis Armando Eller MD Unavailable [phone] Jayesh Pineda MD Unavailable Kelsi Tejada MD Unavailable Unavailable Pretty Le MD Unavailable Vesta Michael PA-C Unavailable [phone] [facility] Unavailable Encounter Details Date Type Department Care Team Description 01/20/2014 Release of Information Medical Records [address] [place] [address] Abstract, Provider Social History Tobacco Use Types [...] on filedocumented in this encounter Care Teams Tumbler Machine Operator Helper Relationship Specialty Start Date End Date Teressa Solis DO PCP - General Internal Medicine 12/18/13 09/15/20 Mina Pretty DO PCP - General Internal Medicine 09/16/20 Shweta Boucher MD PCP - General Internal Medicine 01/12/21 10/10/21 Ora Ronquillo MD [address] [place] [address] PCP - General Internal Medicine 10/11/21 Jl Mendez MD [address] [place] [address] [place] [address] Specialist Cardiovascular Disease 10/13/21 Jannette Boudreaux MD [address] [address] Surgeon Neurosurgery 04/07/22 Tenisha Mendieta PA-C [address] [address] Specialist Neurosurgery 04/07/22 Julio Monk PA-C [address] [address] Specialist Neurosurgery 04/07/22 Luis Armando Eller MD [address] [address] Specialist ORTHOPEDIC SURGERY 10/01/23 Jayesh Pineda MD 305 [place] [address] Specialist Endocrinology 10/01/23 Kelsi Tejada MD 305 [place] [address] Specialist Allergy & Immunology 10/01/23 Pretty Le MD 175 [facility] [address] [place] [address] Specialist Pulmonology 10/01/23 Vesta Michael PA-C 300 [facility] [address] [place] [address] Specialist Vascular Surgery 10/01/23 [facility] 46 [place] [address] Specialist Optometry 10/01/23 documented as of this encounter
--- OUTSIDE RECORDS SUMMARY | 2024-07-30 10:28 | XMS_ITS | Encounter Summary ---
Author Organization [facility] Address [address] [place] [address] Care Team Providers Care Waiter/Waitress Third Class Name Role Phone Teressa Solis DO Primary Care Pro vider Unavailable Mina Pretty DO Primary Care Provider Shweta Cronin MD Primary Care Provider Ora Diaz MD Primary Care Prov ider Jl Mendez MD Unavailable [phone] Jannette Boudreaux MD Unavailable [phone] Tenisha Mendieta PA-C Unavailable Julio MonkC Unavailable Luis Armando Eller MD Unavailable [phone] Jayesh Pineda MD Unavailable Kelsi Tejada MD Unavailable Unavailable Pretty Le MD Unavailable Vesta Michael PA-C Unavailable [facility] Unavailable Reason for Visit * Reason Comments E-prescribe Rx Request Encounter Details Date Type Department Care Team Description 04/17/2018 Refill Adult Medicine [address] [phone] Alexia Walton MD E-prescribe Rx Request Social [...] THE PATIENT'S LAST APPOINTMENT IN ADULT MEDICINE? [id number] WHEN WAS THE LAST TIME THE PATIENT SAW THEIR PCP? [id number] Does patient have an upcoming appointment? No-[facility]able [facility] due to [...] N/A Patients current insurance carrier is: Payor: [employer] FFS / Plan: [employer] / Product Type: MEDICAID RISK documented in this encounter Plan of Treatment Not on file documented as of this encounter Visit Diagnoses Not on filedocumented in this encounter Care Teams Waiter/Waitress Third Class Relationship Specialty Start Date End Date Teressa Solis DO PCP - General Internal Medicine 12/18/13 09/15/20 Mina Pretty DO PCP - General Internal Medicine 09/16/20 Shweta Boucher MD PCP - General Internal Medicine 01/12/21 10/10/21 Ora Ronquillo MD [address] [place] [address] PCP - General Internal Medicine 10/11/21 Jl Mendez MD [address] [place] [address] Dr Mont[address] [place] [address] Specialist Cardiovascular Disease 10/13/21 Jannette Boudreaux MD [address] [address] Surgeon Neurosurgery 04/07/22 Tenisha Mendieta PA-C [address] [address] Specialist Neurosurgery 04/07/22 Julio Monk PA-C 175 [facility] [address] [place] [address] Specialist Neurosurgery 04/07/22 Luis Armando Eller MD [address] [address] Specialist ORTHOPEDIC SURGERY 10/01/23 Jayesh Pineda MD [address] [place] [address] Specialist Endocrinology 10/01/23 Kelsi Tejada MD 305 [place] [address] Specialist Allergy & Immunology 10/01/23 Pretty Le MD 175 [facility] [address] [place] [address] Specialist Pulmonology 10/01/23 Vesta Michael PA-C 300 [facility] 210 [place] [address] Specialist Vascular Surgery 10/01/23 [facility] 46 [place], [place] [phone] Specialist Optometry 10/01/23 documented as of this encounter
--- OUTSIDE RECORDS SUMMARY | 2024-07-30 10:28 | XMS_ITS | Encounter Summary ---
Author Organization [facility] Address [address] [place] [address] Care Team Providers Care Foot Piece Assembler Name Role Phone Teressa Solis DO Primary Care Pro vider Unavailable Mina Pretty DO Primary Care Provider Shweta Cronin MD Primary Care Provider Ora Diaz MD Primary Care Prov ider Jl Mendez MD Unavailable Jannette Boudreaux MD Unavailable [phone] Tenisha Mendieta PA-C Unavailable Julio Monk PA-C Unavailable Luis Armando Eller MD Unavailable [phone] Jayesh Pineda MD Unavailable Kelsi Tejada MD Unavailable Unavailable Pretty Le MD Unavailable Vesta Michael PA-C Unavailable [phone] [facility] Unavailable [phone] Encounter Details Date Type Department Care Team Description 01/21/2014 Plumber Maintenance Report Medical Records [address] [place] [address] Narinder Franco MD Social History Tobacco Use [...] on filedocumented in this encounter Care Teams Foot Piece Assembler Relationship Specialty Start Date End Date Teressa Solis DO PCP - General Internal Medicine 12/18/13 09/15/20 Mina Pretty DO PCP - General Internal Medicine 09/16/20 Shweta Boucher MD PCP - General Internal Medicine 01/12/21 10/10/21 Ora Ronquillo MD [address] [place] [address] PCP - General Internal Medicine 10/11/21 Jl Mendez MD [address] [place] [address] Specialist Cardiovascular Disease 10/13/21 Jannette Boudreaux MD [address] [address] Surgeon Neurosurgery 04/07/22 Tenisha Mendieta PA-C [address] [address] Specialist Neurosurgery 04/07/22 Julio Monk PA-C [address] [address] Specialist Neurosurgery 04/07/22 Luis Armando Eller MD [address] [address] Specialist ORTHOPEDIC SURGERY 10/01/23 Jayesh Pineda MD 305 [place] [address] Specialist Endocrinology 10/01/23 Kelsi Tejada MD 305 [place] [address] Specialist Allergy & Immunology 10/01/23 Pretty Le MD 175 [facility] [address] [place] [address] Specialist Pulmonology 10/01/23 Vesta Michael PA-C 300 [facility] 210 [place] [address] Specialist Vascular Surgery 10/01/23 [facility] [address] [place] [address] Specialist Optometry 10/01/23 documented as of this encounter
--- OUTSIDE RECORDS SUMMARY | 2024-07-30 10:28 | XMS_ITS | Encounter Summary ---
Author Organization [facility] Address [address] [place] [address] Care Team Providers Care Principal Data Architect Name Role Phone Teressa Solis DO Primary Care Pro vider Unavailable Mina Pretty DO Primary Care Provider Shweta Cronin MD Primary Care Provider Ora Diaz MD Primary Care Prov ider Jl Mendez MD Unavailable [phone] Jannette Boudreaux MD Unavailable [phone] Tenisha Mendieta PA-C Unavailable [phone] Julio MonkC Unavailable Luis Armando Eller MD Unavailable [phone] Jayesh Pineda MD Unavailable Kelsi Tejada MD Unavailable Unavailable Pretty Le MD Unavailable Vesta Michael PA-C Unavailable [facility] Unavailable [phone] Reason for Visit * Reason Comments E-prescribe Rx Request Encounter Details Date Type Department Care Team Description 04/07/2019 Refill Allergy [place] 98 [address] [place] [id number] Kelsi Tejada MD E-prescribe Rx Request Social [...] sinusitis documented in this encounter Care Teams Principal Data Architect Relationship Specialty Start Date End Date Teressa Solis DO PCP - General Internal Medicine 12/18/13 09/15/20 Mina Pretty DO PCP - General Internal Medicine 09/16/20 Shweta Boucher MD PCP - General Internal Medicine 01/12/21 10/10/21 Ora Ronquillo MD [address] [place] [address] PCP - General Internal Medicine 10/11/21 Jl Mendez MD [address] [place] [address] Dr Montiel [address] [place] [address] Specialist Cardiovascular Disease 10/13/21 Jannette Boudreaux MD [address] [address] Surgeon Neurosurgery 04/07/22 Tenisha Mendieta PA-C [address] [address] Specialist Neurosurgery 04/07/22 Julio Monk PA-C [address] [address] Specialist Neurosurgery 04/07/22 Luis Armando Eller MD [address] [address] Specialist ORTHOPEDIC SURGERY 10/01/23 Jayesh Pineda MD 305 [place] [address] Specialist Endocrinology 10/01/23 Kelsi Tejada MD 305 [place] [address] Specialist Allergy & Immunology 10/01/23 Pretty Le MD 175 [facility] [address] [place] [address] Specialist Pulmonology 10/01/23 Vesta Michael PA-C 300 [facility] 210 [place] [address] Specialist Vascular Surgery 10/01/23 [facility] [address] [place], [place] 9868189 Specialist Optometry 10/01/23 documented as of this encounter
--- OUTSIDE RECORDS SUMMARY | 2024-07-30 10:28 | XMS_ITS | Encounter Summary ---
Author Organization [facility] Address [address] [place] [address] Care Team Providers Care Electro Mechanical Technician Name Role Phone Geno Cueva MD Primary Care Provider Unavailable Teressa Solis DO Primary Care Pro vider Unavailable Mina Pretty DO Primary Care Provider Ailyn Shweta Pretty MD Primary Care Provider Ora Diaz MD Primary Care Prov ider Jl Mendez MD Unavailable [phone] Jannette Boudreaux MD Unavailable [phone] Tenisha Mendieta PA-C Unavailable Julio Monk PA-C Unavailable Luis Armando Eller MD Unavailable [phone] Jayesh Pineda MD Unavailable Kelsi Tejada MD Unavailable Unavailable Pretty Le MD Unavailable Vesta Michael-Pina Unavailable [facility] Unavailable Reason for Visit * Reason Onset Date Comments Provider Call Back 11/03/2013 Encounter Details Date Type Department Care Team Description 11/03/2013 Telephone Adult Medicine [address] [id number] Lisandra Gracia PA-C Provider Call Back Social [...] Primary documented in this encounter Care Teams Electro Mechanical Technician Relationship Specialty Start Date End Date Geno Cueav MD PCP - General Internal Medicine 06/28/1212/17/13 Teressa Solis DO PCP - General Internal Medicine 12/18/13 09/15/20 Mina Pretty DO PCP - General Internal Medicine 09/16/20 1 Shweta Tellez MD PCP - General Internal Medicine 01/12/21 10/10/21 Ora Ronquillo MD 444 [place] [address] PCP - General Internal Medicine 10/11/21 Jl Mendez MD [address] [place] [address] Dr Mont[address] [place] [address] Specialist Cardiovascular Disease 10/13/21 Jannette Boudreaux MD 175 [facility] 300 [place] [address] Surgeon Neurosurgery 04/07/22 Tenisha Mendieta PA-C [address] [address] Specialist Neurosurgery 04/07/22 Julio Monk PA-C [address] [address] Specialist Neurosurgery 04/07/22 Luis Armando Eller MD [address] [address] Specialist ORTHOPEDIC SURGERY 10/01/23 Jayesh Pineda MD 305 [place] [address] Specialist Endocrinology 10/01/23 Kelsi Tejada MD 305 [place] [address] Specialist Allergy & Immunology 10/01/23 Pretty Le MD 175 [facility] 200 [place] [address] Specialist Pulmonology 10/01/23 Vesta Michael PA-C 300 [facility] 210 [place] [address] Specialist Vascular Surgery 10/01/23 [facility] 46 [place], [place] 5488489 Specialist Optometry 10/01/23 documented as of this encounter
--- OUTSIDE RECORDS SUMMARY | 2024-07-30 10:28 | XMS_ITS | Encounter Summary ---
Author Organization [facility] Address [address] [place] [address] Care Team Providers Care Dog Walker Name Role Phone Teressa Solis DO Primary Care Pro vider Unavailable Mina Pretty DO Primary Care Provider Shweta Cronin MD Primary Care Provider Ora Diaz MD Primary Care Prov ider Jl Mendez MD Unavailable [phone] Jannette Boudreaux MD Unavailable [phone] Tenisha Mendieta PA-C Unavailable Julio Monk PA-C Unavailable Luis Armando Eller MD Unavailable [phone] Jayesh Pineda MD Unavailable Kelsi Tejada MD Unavailable Unavailable Pretty Le MD Unavailable Vesta Michael PA-C Unavailable [facility] Unavailable [phone] Reason for Visit * Reason Comments E-prescribe Rx Request Encounter Details Date Type Department Care Team Description 03/27/2019 Refill Adult Medicine [address] [id number] Teressa Solis DO E-prescribe Rx Request Social [...] an upcoming appointment? No-unable to reach left [facility] to call for appointment due to [...] N/A Patients current insurance carrier is: Payor: [facility] [employer] / Plan: [employer] / Product Type: MEDICAID RISK documented in this encounter Plan of Treatment Not on file documented as of this encounter Visit Diagnoses Not on filedocumented in this encounter Care Teams Dog Walker Relationship Specialty Start Date End Date Teressa Solis DO PCP - General Internal Medicine 12/18/13 09/15/20 Mina Pretty DO PCP - General Internal Medicine 09/16/20 Shweta Boucher MD PCP - General Internal Medicine 01/12/21 10/10/21 Ora Ronquillo MD [address] [place] [address] PCP - General Internal Medicine 10/11/21 Jl Mendez MD [address] [place] [address] Dr Montiel [address] [place] [address] Specialist Cardiovascular Disease 10/13/21 Jannette Boudreaux MD [address] [address] Surgeon Neurosurgery 04/07/22 Tenisha Mendieta PA-C [address] [address] Specialist Neurosurgery 04/07/22 Julio Monk PA-C 175 [facility] [address] [place] [address] Specialist Neurosurgery 04/07/22 Luis Armando Eller MD [address] [address] Specialist ORTHOPEDIC SURGERY 10/01/23 Jayesh Pineda MD 305 [place] [address] Specialist Endocrinology 10/01/23 Kelsi Tejada MD 305 [place] [address] Specialist Allergy & Immunology 10/01/23 Pretty Le MD 175 [facility] [address] [place] [address] Specialist Pulmonology 10/01/23 Vesta Michael PA-C 300 [facility] 210 [place] [address] Specialist Vascular Surgery 10/01/23 [facility] [address] [place] [address] Specialist Optometry 10/01/23 documented as of this encounter
--- OUTSIDE RECORDS SUMMARY | 2024-07-30 10:28 | XMS_ITS | Encounter Summary ---
Author Organization [facility] Address [address] [place] [address] Care Team Providers Care Picket [employer] Union Name Role Phone Teressa Solis DO Primary Care Pro vider Unavailable Mina Pretty DO Primary Care Provider Shweta Cronin MD Primary Care Provider Ora Diaz MD Primary Care Prov ider Jl Mendez MD Unavailable Jannette Boudreaux MD Unavailable [phone] Tenisha Mendieta PA-C Unavailable [phone] Julio Monk PA-C Unavailable Luis Armando Eller MD Unavailable [phone] Jayesh Pineda MD Unavailable Kelsi Tejada MD Unavailable Unavailable Pretty Le MD Unavailable Vesta Michael PA-C Unavailable [phone] [facility] Unavailable Encounter Details Date Type Department Care Team Description 02/12/2019 Telephone Allergy [place] 98 98 [place] [address] Kelsi Tejada MD Social History [...] Encounter - Nola Campbell R.N. - 02/12/2019 2:42 PM EST PA for Nucala to be resubmitted at recommendation of PA dept. documented in this encounter Plan of Treatment Not on file documented as of this encounter Visit Diagnoses Not on filedocumented in this encounter Care Teams [employer] Relationship Specialty Start Date End Date Teressa Solis DO PCP - General Internal Medicine 12/18/13 09/15/20 Mina Pretty DO PCP - General Internal Medicine 09/16/20 Shweta Boucher MD PCP - General Internal Medicine 01/12/21 10/10/21 Ora Ronquillo MD [address] [place] [address] PCP - General Internal Medicine 10/11/21 Jl Mendez MD [address] [place] [address] Dr Mont[address] [place] [address] Specialist Cardiovascular Disease 10/13/21 Jannette Boudreaux MD [address] [address] Surgeon Neurosurgery 04/07/22 Tenisha Mendieta PA-C [address] [address] Specialist Neurosurgery 04/07/22 Julio Monk PA-C [address] [address] Specialist Neurosurgery 04/07/22 Luis Armando Eller MD [address] [address] Specialist ORTHOPEDIC SURGERY 10/01/23 Jayesh Pineda MD 305 [place] [address] Specialist Endocrinology 10/01/23 Kelsi Tejada MD 305 [place] [address] Specialist Allergy & Immunology 10/01/23 Pretty Le MD 175 [facility] [address] [place] [address] Specialist Pulmonology 10/01/23 Vesta Michael PA-C 300 [facility] [address] [place] [address] Specialist Vascular Surgery 10/01/23 [facility] 46 [place] [address] Specialist Optometry 10/01/23 documented as of this encounter
--- OUTSIDE RECORDS SUMMARY | 2024-07-30 10:28 | XMS_ITS | Encounter Summary ---
Author Organization [facility] Address [address] [place] [address] Care Team Providers Care Process Control Engineer Name Role Phone Teressa Solis DO Primary Care Pro vider Unavailable Mina Pretty DO Primary Care Provider Shweta Cronin MD Primary Care Provider Ora Diaz MD Primary Care Prov ider Jl Mendez MD Unavailable Jannette Boudreaux MD Unavailable [phone] Tenisha Mendieta PA-C Unavailable [phone] Julio Monk PA-C Unavailable Luis Armando Eller MD Unavailable [phone] Jayesh Pineda MD Unavailable Kelsi Tejada MD Unavailable Unavailable Pretty Le MD Unavailable Vesta Michael PA-C Unavailable [phone] [facility] Unavailable [phone] Encounter Details Date Type Department Care Team Description 02/22/2018 Director Of Broadcast Report Medical Records [address] [place] [address] Narinder Franco MD Social History Tobacco Use [...] filedocumented in this encounter Care Teams Process Control Engineer Relationship Specialty Start Date End Date Teressa Solis DO PCP - General Internal Medicine 12/18/13 09/15/20 Mina Pretty DO PCP - General Internal Medicine 09/16/20 Shweta Boucher MD PCP - General Internal Medicine 01/12/21 10/10/21 Ora Ronquillo MD [address] [place] [address] PCP - General Internal Medicine 10/11/21 Jl Mendez MD [address] [place] [address] Specialist Cardiovascular Disease 10/13/21 Jannette Boudreaux MD [address] [address] Surgeon Neurosurgery 04/07/22 Tenisha Mendieta PA-C [address] [address] Specialist Neurosurgery 04/07/22 Julio Monk PA-C [address] [address] Specialist Neurosurgery 04/07/22 Luis Armando Eller MD [address] [address] Specialist ORTHOPEDIC SURGERY 10/01/23 Jayesh Pineda MD 305 [place] [address] Specialist Endocrinology 10/01/23 Kelsi Tejada MD 305 [place] [address] Specialist Allergy & Immunology 10/01/23 Pretty Le MD 175 [facility] [address] [place] [address] Specialist Pulmonology 10/01/23 Vesta Michael PA-C 300 [facility] 210 [place] [address] Specialist Vascular Surgery 10/01/23 [facility] 46 [place] [address] Specialist Optometry 10/01/23 documented as of this encounter
--- OUTSIDE RECORDS SUMMARY | 2024-07-30 10:28 | XMS_ITS | Encounter Summary ---
Author Organization [facility] Address [address] [place] [address] Care Team Providers Care Marketing Community Liaison Name Role Phone Teressa Solis DO Primary Care Pro vider Unavailable Mina Pretty DO Primary Care Provider Ailyn Shweta Pretty MD Primary Care Provider UnaOra Randall MD Primary Care Prov ider Jl Mendez MD Unavailable Jannette Boudreaux MD Unavailable [phone] Tenisha Mendieta PA-C Unavailable [phone] Julio Monk PA-C Unavailable Luis Armando Eller MD Unavailable [phone] Jayesh Pineda MD Unavailable Kelsi Tejada MD Unavailable Unavailable Pretty Le MD Unavailable Vesta Michael PA-C Unavailable [facility] Unavailable [phone] Reason for Referral * Specialist (Routine) - Authorized/Booked Specialty Diagnoses / Procedures Referred By Janie castillo Referred To Contact ORTHOPEDICS / Orthopedic Procedures REFERRAL TO ORTHOPEDICS Teressa Solis DO [address] [place] [address] Jl Chou MD 175 [facility] [address] [place] [address] Referral ID Status Reason Start Date Expiration Date V isits Requested Visits Authorized SEE NOTE Authorized/B ooked 10/20/2014 01/21/2015 1 1 Encounter Details Date Type Department Care Team Description 10/20/2014 Orders Only Adult Medicine [facility] [address] [place] [address] Teressa Solis DO Bilateral carpal tunnel syndrome [...] syndrome documented in this encounter Care Teams Marketing Community Liaison Relationship Specialty Start Date End Date Teressa Solis DO PCP - General Internal Medicine 12/18/13 09/15/20 Mina Pretty DO PCP - General Internal Medicine 09/16/20 Shweta Boucher MD PCP - General Internal Medicine 01/12/21 10/10/21 Ora Ronquillo MD 444 [place] [address] PCP - General Internal Medicine 10/11/21 Jl Mendez MD [address] [place] [address] [place] [address] Specialist Cardiovascular Disease 10/13/21 Jannette Boudreaux MD [address] [address] Surgeon Neurosurgery 04/07/22 Tenisha Mendieta PA-C [address] [address] Specialist Neurosurgery 04/07/22 Julio Monk PA-C 175 [facility] [address] [place] [address] Specialist Neurosurgery 04/07/22 Luis Armando Eller MD 175 [facility] [address] [place] [address] Specialist ORTHOPEDIC SURGERY 10/01/23 Jayesh Pineda MD 305 [place] [address] Specialist Endocrinology 10/01/23 Kelsi Tejada MD 305 [place] [address] Specialist Allergy & Immunology 10/01/23 Pretty Le MD 175 [facility] [address] [place] [address] Specialist Pulmonology 10/01/23 Vesta Michael PA-C 300 [facility] [address] [place] [address] Specialist Vascular Surgery 10/01/23 [facility] 46 [place] [address] Specialist Optometry 10/01/23 documented as of this encounter
--- OUTSIDE RECORDS SUMMARY | 2024-07-30 10:28 | XMS_ITS | Encounter Summary ---
Author Organization [facility] Address [address] [place] [address] Care Team Providers Care Warehouse Worker Name Role Phone Teressa Solis DO Primary Care Pro vider Unavailable Mina Pretty DO Primary Care Provider Shweta Cronin MD Primary Care Provider Ora Diaz MD Primary Care Prov ider Jl Mendez MD Unavailable [phone] Jannette Boudreaux MD Unavailable [phone] Tenisha Mendieta PA-C Unavailable Julio Monk PA-C Unavailable Luis Armando Eller MD Unavailable [phone] Jayesh Pineda MD Unavailable Kelsi Tejada MD Unavailable Unavailable Pretty Le MD Unavailable Vesta Michael PA-C Unavailable [phone] [facility] Unavailable [phone] Reason for Visit * Reason Onset Date Comments allergy injection 03/10/2019 Encounter Details Date Type Department Care Team Description 03/10/2019 Telephone Adult [facility] 98 [address] [place] [address] Kelsi Tejada MD allergy injection [...] up for 03/18/19 at 3pm. The medical library assistant will call then. BSR- please transfer the call to clinical staff. * Telephone Encounter - Nola Campbell R.N. - 03/13/2019 5:41 PM EST Call placed to [facility] [employer] to arrange peer to peer. On hold [...] PM EST Appeal done for Jonathanala with [facility] [employer]. Appeal denied due to fact that patient [...] AM EST Return call to Leon [facility] [employer]. Discussed patient's status for Nucala, dx past treatments, labs. Leon will put forth to pharmacy staff. If appeal still not acceptable asked if Dr. Tejada willing to have peer to peer. Leon to call back if appeal continues to deny medication and will arrange peer to peer. * Telephone Encounter - Earnestine Martinez - 03/10/2019 11:35 AM EST [facility] [employer] calling, would like call back to discuss appeal for patients Nucala. documented in this encounter Plan of Treatment Not on file documented as of this encounter Visit Diagnoses Not on filedocumented in this encounter Care Teams Warehouse Worker Relationship Specialty Start Date End Date Teressa Solis DO PCP - General Internal Medicine 12/18/13 09/15/20 Mina Pretty DO PCP - General Internal Medicine 09/16/20 Shweta Boucher MD PCP - General Internal Medicine 01/12/21 10/10/21 Ora Ronquillo MD [address] [place] [address] PCP - General Internal Medicine 10/11/21 Jl Mendez MD [address] [place] [address] Dr Montiel [address] [place] [address] Specialist Cardiovascular Disease 10/13/21 Jannette Boudreaux MD 175 [facility] [address] [place] [address] Surgeon Neurosurgery 04/07/22 Tenisha Mendieta PA-C 175 [facility] [address] [place] [address] Specialist Neurosurgery 04/07/22 Julio Monk PA-C 175 [facility] 300 [place], [place] [address] Specialist Neurosurgery 04/07/22 Luis Amrando Eller MD 175 [facility] 250 [place] [address] Specialist ORTHOPEDIC SURGERY 10/01/23 Jayesh Pineda MD 305 [place] [address] Specialist Endocrinology 10/01/23 Kelsi Tejada MD 305 [place] [address] Specialist Allergy & Immunology 10/01/23 Pretty Le MD 175 [facility] 200 [place] [address] Specialist Pulmonology 10/01/23 Vesta Michael PA-C 300 [facility] 210 [place] [address] Specialist Vascular Surgery 10/01/23 [facility] [address] [place] [address] Specialist Optometry 10/01/23 documented as of this encounter
--- OUTSIDE RECORDS SUMMARY | 2024-07-30 10:28 | XMS_ITS | Encounter Summary ---
Author Organization [facility] Address [address] [place] [address] Care Team Providers Care Events Solutions Consultant Name Role Phone Teressa Solis DO Primary Care Pro vider Unavailable Mina Pretty DO Primary Care Provider Shweta Cronin MD Primary Care Provider Ora Diaz MD Primary Care Prov ider Jl Mendez MD Unavailable [phone] Jannette Boudreaux MD Unavailable [phone] Tenisha Mendieta PA-C Unavailable Julio Monk PA-C Unavailable [phone] Luis Armando Eller MD Unavailable [phone] Jayesh Pineda MD Unavailable Kelsi Tejada MD Unavailable Unavailable Pretty Le MD Unavailable Vseta Michael PA-C Unavailable [facility] Unavailable [phone] Encounter Details Date Type Department Care Team Description 04/01/2019 Walk In Clinic Visit Medical Records [address] [place] [address] [place] [address] [place] [address] Social History Tobacco Use Types [...] on filedocumented in this encounter Care Teams Events Solutions Consultant Relationship Specialty Start Date End Date Teressa Solis DO PCP - General Internal Medicine 12/18/13 09/15/20 Mina Pretty DO PCP - General Internal Medicine 09/16/20 Shweta Boucher MD PCP - General Internal Medicine 01/12/21 10/10/21 Ora Ronquillo MD [address] [place] [address] PCP - General Internal Medicine 10/11/21 Jl Mendez MD [address] [place] [address] Dr Montiel [address] [place] [address] Specialist Cardiovascular Disease 10/13/21 Jannette Boudreaux MD [address] [address] Surgeon Neurosurgery 04/07/22 Tenisha Mendieta PA-C [address] [address] Specialist Neurosurgery 04/07/22 Julio Monk PA-C [address] [address] Specialist Neurosurgery 04/07/22 Luis Armando Eller MD [address] [address] Specialist ORTHOPEDIC SURGERY 10/01/23 Jayesh Pineda MD 305 [place] [address] Specialist Endocrinology 10/01/23 Kelsi Tejada MD 305 [place] [address] Specialist Allergy & Immunology 10/01/23 Pretty Le MD 175 [facility] [address] [place] [address] Specialist Pulmonology 10/01/23 Vesta Michael PA-C 300 [facility] 210 [place] [address] Specialist Vascular Surgery 10/01/23 [facility] 46 [place] [address] Specialist Optometry 10/01/23 documented as of this encounter
--- OUTSIDE RECORDS SUMMARY | 2024-07-30 10:28 | XMS_ITS | Encounter Summary ---
Author Organization [facility] Address [address] [place] [address] Care Team Providers Care Tooling Manager Name Role Phone Teressa Solis DO Primary Care Pro vider Unavailable Mina Pretty DO Primary Care Provider Ailyn Shweta Pretty MD Primary Care Provider UnaOra Randall MD Primary Care Prov ider Jl Mendez MD Unavailable [phone] Jannette Boudreaux MD Unavailable [phone] Tenisha Mendieta PA-C Unavailable Julio Monk PA-C Unavailable [phone] Luis Armando Eller MD Unavailable [phone] Jayesh Pineda MD Unavailable Kelsi Tejada MD Unavailable Unavailable Pretty Le MD Unavailable Vesta Michael PA-C Unavailable [phone] [facility] Unavailable [phone] Reason for Visit * Reason Onset Date Comments APPOINTMENT 02/21/2019 Encounter Details Date Type Department Care Team Description 02/21/2019 Telephone Gastroenterology - [place] 175 [facility] [address] [place] [address] Irvin Ling MD 175 [facility] [address] [place], [place] [id number] APPOINTMENT Social History Tobacco Use Types Packs/Day [...] on filedocumented in this encounter Care Teams Tooling Manager Relationship Specialty Start Date End Date Teressa Solis DO PCP - General Internal Medicine 12/18/13 09/15/20 Mina Pretty DO PCP - General Internal Medicine 09/16/20 1 Shweta Tellez MD PCP - General Internal Medicine 01/12/21 10/10/21 Ora Ronquillo MD [address] [place] [address] PCP - General Internal Medicine 10/11/21 Jl Mendez MD [address] [place] [address] Dr Mont[address] [place] [address] Specialist Cardiovascular Disease 10/13/21 Jannette Boudreaux MD [address] [address] Surgeon Neurosurgery 04/07/22 Tenisha Mendieta PA-C [address] [address] Specialist Neurosurgery 04/07/22 Julio Monk PA-C [address] [address] Specialist Neurosurgery 04/07/22 Luis Armando Eller MD 175 [facility] 250 [place] [address] Specialist ORTHOPEDIC SURGERY 10/01/23 Jayesh Pineda MD 305 [place] [address] Specialist Endocrinology 10/01/23 Kelsi Tejada MD 305 [place] [address] Specialist Allergy & Immunology 10/01/23 Pretty Le MD 175 [facility] 200 [place] [address] Specialist Pulmonology 10/01/23 Vesta Michael PA-C 300 [facility] 210 [place] [address] Specialist Vascular Surgery 10/01/23 [facility] 46 [place] [address] Specialist Optometry 10/01/23 documented as of this encounter
--- OUTSIDE RECORDS SUMMARY | 2024-07-30 10:28 | XMS_ITS | Encounter Summary ---
Author Organization [facility] Address [address] [place] [address] Care Team Providers Care Swimming Professor Name Role Phone Geno Cueva MD Primary Care Provider Unavailable Teressa Solis DO Primary Care Pro vider Unavailable Mina Pretty DO Primary Care Provider Ailyn Shweta Pretty MD Primary Care Provider Ora Diaz MD Primary Care Prov ider Jl Mendez MD Unavailable Jannette Boudreaux MD Unavailable [phone] Tenisha Mendieta PA-C Unavailable Julio Monk PA-C Unavailable [phone] Luis Armando Eller MD Unavailable [phone] Jayesh Pineda MD Unavailable Kelsi Tejada MD Unavailable Unavailable Pretty Le MD Unavailable Vesat Michael-Pina Unavailable [phone] [facility] Unavailable [phone] Encounter Details Date Type Department Care Team Description 12/01/2013 Regional Operations Director Report Medical Records [address] [place] [address] Genny Brewer Social History Tobacco Use Types [...] on filedocumented in this encounter Care Teams Swimming Professor Relationship Specialty Start Date End Date Geno Cueva MD PCP - General Internal Medicine 06/28/1212/17/13 Teressa Solis DO PCP - General Internal Medicine 12/18/13 09/15/20 Mina Pretty DO PCP - General Internal Medicine 09/16/20 Shweta Boucher MD PCP - General Internal Medicine 01/12/21 10/10/21 Ora Ronquillo MD [address] [place] [address] PCP - General Internal Medicine 10/11/21 Jl Mendez MD [address] [place] [address] Dr Mont[address] [place] [address] Specialist Cardiovascular Disease 10/13/21 Jannette Boudreaux MD [address] [address] Surgeon Neurosurgery 04/07/22 Tenisha Mendieta PA-C [address] [address] Specialist Neurosurgery 04/07/22 Julio Monk PA-C 175 [facility] [address] [place] [address] Specialist Neurosurgery 04/07/22 Luis Armando Eller MD [address] [address] Specialist ORTHOPEDIC SURGERY 10/01/23 Jayesh Pineda MD [address] [place] [address] Specialist Endocrinology 10/01/23 Kelsi Tejada MD 305 [place] [address] Specialist Allergy & Immunology 10/01/23 Pretty Le MD 175 [facility] [address] [place] [address] Specialist Pulmonology 10/01/23 Vesta Michael PA-C 300 [facility] 210 [place] [address] Specialist Vascular Surgery 10/01/23 [facility] 46 [place], [place] [address] Specialist Optometry 10/01/23 documented as of this encounter
--- OUTSIDE RECORDS SUMMARY | 2024-07-30 10:28 | XMS_ITS | Encounter Summary ---
Author Organization [facility] Address [address] [place] [address] Care Team Providers Care Mechanical Design Engineer Facilities Name Role Phone Teressa Solis DO Primary Care Pro vider Unavailable Mina Pretty DO Primary Care Provider Shweta Cronin MD Primary Care Provider Ora Diaz MD Primary Care Prov ider Jl Mendez MD Unavailable Jannette Boudreaux MD Unavailable [phone] Tenisha Mendieta PA-C Unavailable [phone] Julio Monk PA-C Unavailable Luis Armando Eller MD Unavailable [phone] Jayesh Pineda MD Unavailable Kelsi Tejada MD Unavailable Unavailable Pretty Le MD Unavailable Vesta Michael PA-C Unavailable [phone] [facility] Unavailable [phone] Reason for Visit * Reason Onset Date Comments allergy injection 01/20/2019 Encounter Details Date Type Department Care Team Description 01/20/2019 Telephone Allergy [facility] 98 [address] [place] [address] Kelsi Tejada MD allergy injection [...] if fax was recevied with documention, # [phone] documented in this encounter Plan of Treatment Not on file documented as of this encounter Visit Diagnoses Not on filedocumented in this encounter Care Teams Mechanical Design Engineer Facilities Relationship Specialty Start Date End Date Teressa Solis, PCP - General Internal Medicine 12/18/13 09/15/20 Mina Pretty DO PCP - General Internal Medicine 09/16/20 Shweta Boucher MD PCP - General Internal Medicine 01/12/21 10/10/21 Ora Ronquillo MD [address] [place] [address] PCP - General Internal Medicine 10/11/21 Jl Mendez MD [address] [place] [address] [place] [address] Specialist Cardiovascular Disease 10/13/21 Jannette Boudreaux MD [address] [address] Surgeon Neurosurgery 04/07/22 Tenisha Mendieta PA-C [address] [address] Specialist Neurosurgery 04/07/22 Julio Monk PA-C 175 [facility] 300 [place] [address] Specialist Neurosurgery 04/07/22 Luis Armando Eller MD 175 [facility] 250 [place] [address] Specialist ORTHOPEDIC SURGERY 10/01/23 Jayesh Pineda MD 305 [place] [address] Specialist Endocrinology 10/01/23 Kelsi Tejada MD 305 [place] [address] Specialist Allergy & Immunology 10/01/23 Pretty Le MD 175 [facility] 200 [place] [address] Specialist Pulmonology 10/01/23 Vesta Michael PA-C 300 [facility] 210 [place] [address] Specialist Vascular Surgery 10/01/23 [facility] 46 [place] [address] Specialist Optometry 10/01/23 documented as of this encounter
--- OUTSIDE RECORDS SUMMARY | 2024-07-30 10:29 | XMS_ITS | Encounter Summary ---
Author Organization [facility] Address [address] [place] [address] Care Team Providers Care Service Member Name Role Phone Ora Ronquillo MD Primary Care Prov ider Jl Mendez MD Unavailable [phone] Jannette Boudreaux MD Unavailable [phone] Tenisha Mendieta PA-C Unavailable Julio Monk PA-C Unavailable [phone] Luis Armando Eller MD Unavailable [phone] Jayesh Pineda MD Unavailable Kelsi Tejada MD Unavailable Unavailable Pretty Le MD Unavailable Vesta Michael PA-C Unavailable [phone] [facility] Unavailable [phone] Encounter Details Date Type Department Care Team Description 08/07/2023 Refill Pulmonology - [place] 175 [facility] [address] [place] [address] Julio Cesar Weiss MD 175 [facility] Dinesh 200 [place] [address] Social History Tobacco Use Types Packs/Day Years Used Date Smoking Tobacco: Never Smokeless Tobacco: Never Alcohol Use Standard Drinks/Week Comments No 0 (1 standard drink = 0.6 oz pur e alcohol) Education Answer Date Recorded What is the highest level of school you have completed or the highest degree you have received? 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, GENERAL CLAIMS AGENT, CHANDRAKANT) 06/14/2020 Sex Assigned at Date [...] seasonality documented in this encounter Care Teams Service Member Relationship Specialty Start Date End Date Ora Ronquillo MD 4 [place] [address] PCP - General Internal Medicine 10/11/21 Jl Mendez MD [address] [place] [address] Dr Mont[address] [place] [address] Specialist Cardiovascular Disease 10/13/21 Jannette Boudreaux MD [address] [address] Surgeon Neurosurgery 04/07/22 Tenisha Mendieta PA-C [address] [address] Specialist Neurosurgery 04/07/22 Julio Monk PA-C [address] [address] Specialist Neurosurgery 04/07/22 Luis Armando Eller MD 175 [facility] [address] [place] [address] Specialist ORTHOPEDIC SURGERY 10/01/23 Jayesh Pineda MD 305 [place] [address] Specialist Endocrinology 10/01/23 Kelsi Tejada MD 305 [place] [address] Specialist Allergy & Immunology 10/01/23 Pretty Le MD 175 [facility] [address] [place] [address] Specialist Pulmonology 10/01/23 Vesta Michael PA-C 300 [facility] [address] [place] [address] Specialist Vascular Surgery 10/01/23 [facility] 46 [place] [address] Specialist Optometry 10/01/23 documented as of this encounter
--- OUTSIDE RECORDS SUMMARY | 2024-07-30 10:29 | XMS_ITS | Encounter Summary ---
Author Organization [facility] Address [address] [place] [address] Care Team Providers Care Investigator Operator Name Role Phone Ora Ronquillo MD Primary Care Prov ider Jl Mendez MD Unavailable [phone] Jannette Boudreaux MD Unavailable [phone] Tenisha Mendieta PA-C Unavailable [phone] Julio Monk PA-C Unavailable Luis Armando Eller MD Unavailable [phone] Jayesh Pineda MD Unavailable Kelsi Tejada MD Unavailable Unavailable Pretty Le MD Unavailable Vesta Michael PA-C Unavailable [facility] Unavailable [phone] Encounter Details Date Type Department Care Team Description 11/20/2023 SCAN [facility] Medical [facility] 175 [facility] [address] [place] [address] Lorie Moore, DONN 15[address] [facility] [place] [address] Social History Tobacco Use Types Packs/Day Years Used Date Smoking Tobacco: Never Smokeless Tobacco: Never Alcohol Use Standard Drinks/Week Comments No 0 (1 standard drink = 0.6 oz pur e alcohol) Education Answer Date Recorded What is the highest level of school you have completed or the highest degree you have received? 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, JEWEL BEARING BROACHER, CHANDRAKANT) 06/14/2020 Sex Assigned at Date Recorded Female 08/03/2020 10:16 PM EDT Job Start Date Occupation Industry Not on file Not on file Not on file documented as of this encounter Plan of Treatment Not on file documented as of this encounter Visit Diagnoses Not on filedocumented in this encounter Care Teams Investigator Operator Relationship Specialty Start Date End Date Ora Ronquillo MD 444 [place] [address] PCP - General Internal Medicine 10/11/21 Jl Mendez MD [address] [place] [address] Dr Montiel [address] [place] [address] Specialist Cardiovascular Disease 10/13/21 Jannette Boudreaux MD [address] [address] Surgeon Neurosurgery 04/07/22 Tenisha Mendieta PA-C [address] [address] Specialist Neurosurgery 04/07/22 Julio Monk PA-C 175 [facility] 300 [place] [address] Specialist Neurosurgery 04/07/22 Luis Armando Eller MD [address] [address] Specialist ORTHOPEDIC SURGERY 10/01/23 Jayesh Pineda MD 305 [place] [address] Specialist Endocrinology 10/01/23 eKlsi Tejada MD 305 [place] [address] Specialist Allergy & Immunology 10/01/23 Pretty Le MD 175 [facility] 200 [place] [address] Specialist Pulmonology 10/01/23 Vesta Michael PA-C 300 [facility] 210 [place] [address] Specialist Vascular Surgery 10/01/23 [facility] 46 [place] [address] Specialist Optometry 10/01/23 documented as of this encounter
--- OUTSIDE RECORDS SUMMARY | 2024-07-30 10:29 | XMS_ITS | Encounter Summary ---
Author Organization [facility] Address [address] [place] [address] Care Team Providers Care Dry Box Tender Name Role Phone Shweta Tellez MD Primary Care Provider Ora Diaz MD Primary Care Prov ider Jl Mendez MD Unavailable [phone] Jannette Boudreaux MD Unavailable [phone] Tenisha Mendieta PA-C Unavailable [phone] Julio Monk PA-C Unavailable Luis Armando Eller MD Unavailable [phone] Jayesh Pineda MD Unavailable Kelsi Tejada MD Unavailable Unavailable Pretty Le MD Unavailable Vesta Michael-C Unavailable [phone] [facility] Unavailable [phone] Encounter Details Date Type Department Care Team Description 09/26/2021 Orders Only Medical Records 444 [place] [address] Ching Boo MD Social History Tobacco Use Types Packs/Day Years Used Date Smoking Tobacco: Never Smokeless Tobacco: Never Alcohol Use Standard Drinks/Week Comments No 0 (1 standard drink = 0.6 oz pur e alcohol) Education Answer Date Recorded What is the highest level of school you have completed or the highest degree you have received? 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, TRACK WATCHMAN, CHANDRAKANT) 06/14/2020 Sex Assigned at Date Recorded [...] filedocumented in this encounter Care Teams Dry Box Tender Relationship Specialty Start Date End Date Shweta Tellez MD PCP - General Internal Medicine 01/12/21 10/10/21 Ora Ronquillo MD 4 [place] [address] PCP - General Internal Medicine 10/11/21 Jl Mendez MD [address] [place] [address] Dr Montiel 410 [place] [address] Specialist Cardiovascular Disease 10/13/21 Jannette Boudreaux MD [address] [address] Surgeon Neurosurgery 04/07/22 Tenisha Mendieta PA-C [address] [address] Specialist Neurosurgery 04/07/22 Julio Monk PA-C 175 [facility] [address] [place] [address] Specialist Neurosurgery 04/07/22 Luis Armando Eller MD 175 [facility] [address] [place] [address] Specialist ORTHOPEDIC SURGERY 10/01/23 Jayesh Pineda MD 305 [place] [address] Specialist Endocrinology 10/01/23 Kelsi Tejada MD 305 [place] [address] Specialist Allergy & Immunology 10/01/23 Pretty Le MD 175 [facility] [address] [place] [address] Specialist Pulmonology 10/01/23 Vesta Michael PA-C 300 [facility] [address] [place] [address] Specialist Vascular Surgery 10/01/23 [facility] 46 [place] [address] Specialist Optometry 10/01/23 documented as of this encounter
--- OUTSIDE RECORDS SUMMARY | 2024-07-30 10:29 | XMS_ITS | Encounter Summary ---
Author Organization [facility] Address [address] [place] [address] Care Team Providers Care Hand Mold Maker Name Role Phone Ora Ronquillo MD Primary Care Prov ider Jl Mendez MD Unavailable [phone] Jannette Boudreaux MD Unavailable [phone] Tenisha Mendieta-C Unavailable [phone] Julio Monk-C Unavailable [phone] Luis Armando Eller MD Unavailable [phone] Jayesh Pineda MD Unavailable Kelsi Tejada MD Unavailable Unavailable Pretty Le MD Unavailable Vesta Michael PA-C Unavailable [phone] [facility] Unavailable Reason for Visit * Reason Onset Date Comments Surgery (Schedule) 11/22/2023 Encounter Details Date Type Department Care Team Description 11/22/2023 Telephone [facility] Medical [facility] 175 [facility] [address] [place] [address] Luis Armando Eller MD 175 [facility] [address] [place] [address] Surgery (Schedule) Social History Tobacco Use Types Packs/Day Years Used Date Smoking Tobacco: Never Smokeless Tobacco: Never Alcohol Use Standard Drinks/Week Comments No 0 (1 standard drink = 0.6 oz pur e alcohol) Education Answer Date Recorded What is the highest level of school you have completed or the highest degree you have received? 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, CERAMIC TILE INSTALLATION HELPER, CHANDRAKANT) 06/14/2020 Sex Assigned at Date Recorded [...] filedocumented in this encounter Care Teams Hand Mold Maker Relationship Specialty Start Date End Date Ora Ronquillo MD 4 [place] [address] PCP - General Internal Medicine 10/11/21 Jl Mendez MD [address] [place] [address] Dr Montiel [address] [place] [address] Specialist Cardiovascular Disease 10/13/21 Jannette Boudreaux MD 175 [facility] [address] [place] [address] Surgeon Neurosurgery 04/07/22 Tenisha Mendieta PA-C 175 [facility] [address] [place] [address] Specialist Neurosurgery 04/07/22 Julio Monk PA-C 175 [facility] 300 [place] [address] Specialist Neurosurgery 04/07/22 Luis Armando Eller MD 175 [facility] 250 [place] [address] Specialist ORTHOPEDIC SURGERY 10/01/23 Jayesh Pineda MD 305 [place] [address] Specialist Endocrinology 10/01/23 Kelsi Tejada MD 305 [place] [address] Specialist Allergy & Immunology 10/01/23 Pretty Le MD 175 [facility] 200 [place] [address] Specialist Pulmonology 10/01/23 Vesta Michael PA-C 300 [facility] 210 [place] [address] Specialist Vascular Surgery 10/01/23 [facility] 46 [place] [address] Specialist Optometry 10/01/23 documented as of this encounter
--- OUTSIDE RECORDS SUMMARY | 2024-07-30 10:29 | XMS_ITS | Encounter Summary ---
Author Organization [facility] Address [address] [place] [address] Care Team Providers Care Spine Surgeon Name Role Phone Ora Ronquillo MD Primary Care Prov ider Jl Mendez MD Unavailable Jannette Boudreaux MD Unavailable [phone] Tenisha Mendieta PA-C Unavailable Julio Monk PA-C Unavailable Luis Armando Eller MD Unavailable [phone] Jayesh Pineda MD Unavailable Kelsi Tejada MD Unavailable Unavailable Pretty Le MD Unavailable Vesta Michael-Pina Unavailable [phone] [facility] Unavailable [phone] Encounter Details Date Type Department Care Team Description 10/11/2021 SCAN [facility] [address] [place] [address] Abstract, Provider Social History Tobacco Use Types Packs/Day Years Used Date Smoking Tobacco: Never Smokeless Tobacco: Never Alcohol Use Standard Drinks/Week Comments No 0 (1 standard drink = 0.6 oz pur e alcohol) Education Answer Date Recorded What is the highest level of school you have completed or the highest degree you have received? Master's degree (e.g., TANIA, MS, Lexi, Joel, WAREHOUSE OPERATOR, CHANDRAKANT) 06/14/2020 Sex Assigned at Date [...] on filedocumented in this encounter Care Teams Spine Surgeon Relationship Specialty Start Date End Date Ora Ronquillo MD 444 [place] [address] PCP - General Internal Medicine 10/11/21 Jl Mendez MD [address] [place] [address] Dr Mont[address] [place] [address] Specialist Cardiovascular Disease 10/13/21 Jannette Boudreaux MD [address] [address] Surgeon Neurosurgery 04/07/22 Tenisha Mendieta PA-C [address] [address] Specialist Neurosurgery 04/07/22 Julio Monk PA-C 175 [facility] 300 [place] [address] Specialist Neurosurgery 04/07/22 Luis Armando Eller MD [address] [address] Specialist ORTHOPEDIC SURGERY 10/01/23 Jayesh Pineda MD 305 [place] [address] Specialist Endocrinology 10/01/23 Kelsi Tejada MD 305 [place] [address] Specialist Allergy & Immunology 10/01/23 Pretty Le MD 175 [facility] [address] [place] [address] Specialist Pulmonology 10/01/23 Vesta Michael PA-C 300 [facility] 210 [place] [address] Specialist Vascular Surgery 10/01/23 [facility] 46 [place] [address] Specialist Optometry 10/01/23 documented as of this encounter
--- OUTSIDE RECORDS SUMMARY | 2024-07-30 10:29 | XMS_ITS | Encounter Summary ---
Author Organization [facility] Address [address] [place] [address] Care Team Providers Care Range Mechanic Name Role Phone Shweta Tellez MD Primary Care Provider Ora Diaz MD Primary Care Prov ider Jl Mendez MD Unavailable [phone] Jannette Boudreaux MD Unavailable [phone] Tenisha Mendieta PA-C Unavailable [phone] Julio Monk PA-C Unavailable Luis Armando Eller MD Unavailable [phone] Jayesh Pineda MD Unavailable Kelsi Tejada MD Unavailable Unavailable Pretty Le MD Unavailable Vesta Michael-C Unavailable [phone] [facility] Unavailable [phone] Encounter Details Date Type Department Care Team Description 09/09/2021 Hospital Medical Records 444 [place] [address] Cailin Ballesteros NP Social History Tobacco Use Types Packs/Day Years Used Date Smoking Tobacco: Never Smokeless Tobacco: Never Alcohol Use Standard Drinks/Week Comments No 0 (1 standard drink = 0.6 oz pur e alcohol) Education Answer Date Recorded What is the highest level of school you have completed or the highest degree you have received? 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, DESK SERGEANT, CHANDRAKANT) 06/14/2020 Sex Assigned at Date Recorded [...] on filedocumented in this encounter Care Teams Range Mechanic Relationship Specialty Start Date End Date Shweta Tellez MD PCP - General Internal Medicine 01/12/21 10/10/21 Ora Ronquillo MD [address] [place] [address] PCP - General Internal Medicine 10/11/21 lJ Mendez MD [address] [place] [address] Dr Mont[address] [place] [address] Specialist Cardiovascular Disease 10/13/21 Jannette Boudreaux MD [address] [address] Surgeon Neurosurgery 04/07/22 Tenisha Mendieta PA-C [address] [address] Specialist Neurosurgery 04/07/22 Julio Monk PA-C 175 [facility] [address] [place] [address] Specialist Neurosurgery 04/07/22 Luis Armando Eller MD [address] [address] Specialist ORTHOPEDIC SURGERY 10/01/23 Jayesh Pineda MD 305 [place] [address] Specialist Endocrinology 10/01/23 Kelsi Tejada MD 305 [place] [address] Specialist Allergy & Immunology 10/01/23 Pretty Le MD 175 [facility] [address] [place] [address] Specialist Pulmonology 10/01/23 Vesta Michael PA-C 300 [facility] [address] [place] [address] Specialist Vascular Surgery 10/01/23 [facility] 46 [place] [address] Specialist Optometry 10/01/23 documented as of this encounter
--- OUTSIDE RECORDS SUMMARY | 2024-07-30 10:29 | XMS_ITS | Encounter Summary ---
Author Organization [facility] Address [address] [place] [address] Care Team Providers Care Director Clinical Applications Name Role Phone Ora Ronquillo MD Primary Care Prov ider Jl Mendez MD Unavailable Jannette Boudreaux MD Unavailable [phone] Tenisha MendietaC Unavailable Julio Monk-C Unavailable Luis Armando Eller MD Unavailable [phone] Jayesh Pineda MD Unavailable Kelsi Tejada MD Unavailable Unavailable Pretty Le MD Unavailable Vesta Michael PA-C Unavailable [facility] Unavailable Encounter Details Date Type Department Care Team Description 11/28/2023 SCAN [facility] 175 [facility] [address] [place] [address] Luis Armando Eller MD 175 [facility] [address] [place], [place] [id number] Social History Tobacco Use Types Packs/Day Years Used Date Smoking Tobacco: Never Smokeless Tobacco: Never Alcohol Use Standard Drinks/Week Comments No 0 (1 standard drink = 0.6 oz pur e alcohol) Education Answer Date Recorded What is the highest level of school you have completed or the highest degree you have received? 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, FARM TECHNICIAN, CHANDRAKANT) 06/14/2020 Sex Assigned at Date Recorded Female 08/03/2020 10:16 PM EDT Job Start Date Occupation Industry Not on file Not on file Not on file documented as of this encounter Plan of Treatment Not on file documented as of this encounter Visit Diagnoses Not on filedocumented in this encounter Care Teams Director Clinical Applications Relationship Specialty Start Date End Date Ora Ronquillo MD [address] [place] [address] PCP - General Internal Medicine 10/11/21 Jl Mendez MD [address] [place] [address] Dr Montiel [address] [place] [address] Specialist Cardiovascular Disease 10/13/21 Jannette Boudreaux MD [address] [address] Surgeon Neurosurgery 04/07/22 Tenisha Mendieta PA-C [address] [address] Specialist Neurosurgery 04/07/22 Julio Monk PA-C [address] [address] Specialist Neurosurgery 04/07/22 Luis Armando Eller MD [address] [address] Specialist ORTHOPEDIC SURGERY 10/01/23 Jayesh Pineda MD 305 [place] [address] Specialist Endocrinology 10/01/23 Kelsi Tejada MD 305 [place] [address] Specialist Allergy & Immunology 10/01/23 Pretty Le MD 175 [facility] 200 [place] [address] Specialist Pulmonology 10/01/23 Vesta Michael PA-C 300 [facility] 210 [place] [address] Specialist Vascular Surgery 10/01/23 [facility] 46 [place] [address] Specialist Optometry 10/01/23 documented as of this encounter
--- OUTSIDE RECORDS SUMMARY | 2024-07-30 10:29 | XMS_ITS | Encounter Summary ---
Author Organization [facility] Address [address] [place] [address] Care Team Providers Care Blow Moulding Machine Operator Name Role Phone Shweta Tellez MD Primary Care Provider Ora Diaz MD Primary Care Prov ider Jl Mendez MD Unavailable [phone] Jannette Boudreaux MD Unavailable [phone] Tenisha Mendieta PA-C Unavailable [phone] Julio Monk PA-C Unavailable Luis Armando Eller MD Unavailable [phone] Jayesh Pineda MD Unavailable Kelsi Tejada MD Unavailable Unavailable Pretty Le MD Unavailable Vesta Michael-Pina Unavailable [phone] [facility] Unavailable [phone] Encounter Details Date Type Department Care Team Description 08/29/2021 SCAN Medical Records [address] [place] [address] Abstract, Provider Social History Tobacco Use Types Packs/Day Years Used Date Smoking Tobacco: Never Smokeless Tobacco: Never Alcohol Use Standard Drinks/Week Comments No 0 (1 standard drink = 0.6 oz pur e alcohol) Education Answer Date Recorded What is the highest level of school you have completed or the highest degree you have received? 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, STORAGE MANAGEMENT CONSULTANT, CHANDRAKANT) 06/14/2020 Sex Assigned at Date [...] on filedocumented in this encounter Care Teams Blow Moulding Machine Operator Relationship Specialty Start Date End Date Shweta Tellez MD PCP - General Internal Medicine 01/12/21 10/10/21 Ora Ronquillo MD [address] [place] [address] PCP - General Internal Medicine 10/11/21 Jl Mendez MD [address] [place] [address] Dr Montiel [address] [place] [address] Specialist Cardiovascular Disease 10/13/21 Jannette Boudreaux MD [address] [address] Surgeon Neurosurgery 04/07/22 Tenisha Mendieta PA-C [address] [address] Specialist Neurosurgery 04/07/22 Julio Monk PA-C [address] [address] Specialist Neurosurgery 04/07/22 Luis Armando Eller MD [address] [address] Specialist ORTHOPEDIC SURGERY 10/01/23 Jayesh Pineda MD 305 [place] [address] Specialist Endocrinology 10/01/23 Kelsi Tejada MD 305 [facility] [place] [address] Specialist Allergy & Immunology 10/01/23 Pretty Le MD 175 [facility] [address] [place] [address] Specialist Pulmonology 10/01/23 Vesta Michael PA-C 300 [facility] [address] [place] [address] Specialist Vascular Surgery 10/01/23 [facility] 46 [place] [address] Specialist Optometry 10/01/23 documented as of this encounter
--- OUTSIDE RECORDS SUMMARY | 2024-07-30 10:29 | XMS_ITS | Encounter Summary ---
Author Organization [facility] Address [address] [place] [address] Care Team Providers Care Credit Union Teller Name Role Phone Ora Ronquillo MD Primary Care Prov ider Jl Mendez MD Unavailable [phone] Jannette Boudreaux MD Unavailable [phone] Tenisha Mendieta-C Unavailable Julio Monk PA-C Unavailable [phone] Luis Armando Eller MD Unavailable [phone] Jayesh Pineda MD Unavailable Kelsi Tejada MD Unavailable Unavailable Pretty Le MD Unavailable Vesta Michael PA-C Unavailable [facility] Unavailable Encounter Details Date Type Department Care Team Description 10/15/2023 SCAN [facility] 175 [facility] [address] [place] [address] Lorie Moore, DONN 1515 [facility] [place] [address] Social History Tobacco Use Types Packs/Day Years Used Date Smoking Tobacco: Never Smokeless Tobacco: Never Alcohol Use Standard Drinks/Week Comments No 0 (1 standard drink = 0.6 oz pur e alcohol) Education Answer Date Recorded What is the highest level of school you have completed or the highest degree you have received? 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, HAND STRIPER, CHANDRAKANT) 06/14/2020 Sex Assigned at Date Recorded Female 08/03/2020 10:16 PM EDT Job Start Date Occupation Industry Not on file Not on file Not on file documented as of this encounter Plan of Treatment Not on file documented as of this encounter Visit Diagnoses Not on filedocumented in this encounter Care Teams Credit Union Teller Relationship Specialty Start Date End Date Ora Ronquillo MD 444 [place] [address] PCP - General Internal Medicine 10/11/21 Jl Mendez MD [address] [place] [address] Dr Mont[address] [place] [address] Specialist Cardiovascular Disease 10/13/21 Jannette Boudreaux MD [address] [address] Surgeon Neurosurgery 04/07/22 Tenisha Mendieta PA-C [address] [address] Specialist Neurosurgery 04/07/22 Julio Monk PA-C 175 [facility] 300 [place] [address] Specialist Neurosurgery 04/07/22 Luis Armando Eller MD [address] [address] Specialist ORTHOPEDIC SURGERY 10/01/23 Jayesh Pineda MD 305 [place] [address] Specialist Endocrinology 10/01/23 Kelsi Tejada MD 305 [place] [address] Specialist Allergy & Immunology 10/01/23 Pretty Le MD 175 [facility] 200 [place] [address] Specialist Pulmonology 10/01/23 Vesta Michael PA-C 300 [facility] 210 [place] [address] Specialist Vascular Surgery 10/01/23 [facility] 46 [place] [address] Specialist Optometry 10/01/23 documented as of this encounter
--- OUTSIDE RECORDS SUMMARY | 2024-07-30 10:29 | XMS_ITS | Encounter Summary ---
Author Organization [facility] Address [address] [place] [address] Care Team Providers Care Laborer Cement Gun Placing Name Role Phone Ora Ronquillo MD Primary Care Prov ider Jl Mendez MD Unavailable [phone] Jannette Boudreaux MD Unavailable [phone] Tenisha Mendieta PA-C Unavailable [phone] Julio Monk PA-C Unavailable [phone] Luis Armando Eller MD Unavailable [phone] Jayesh Pineda MD Unavailable Kelsi Tejada MD Unavailable Unavailable Pretty Le MD Unavailable Vesta Michael PA-C Unavailable [facility] Unavailable [phone] Encounter Details Date Type Department Care Team Description 11/19/2023 SCAN [facility] 175 [facility] [address] [place] [address] Lorie Moore, DONN 1515 [facility] [place] [address] Social History Tobacco Use Types Packs/Day Years Used Date Smoking Tobacco: Never Smokeless Tobacco: Never Alcohol Use Standard Drinks/Week Comments No 0 (1 standard drink = 0.6 oz pur e alcohol) Education Answer Date Recorded What is the highest level of school you have completed or the highest degree you have received? 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, PENCILS WASHER, CHANDRAKANT) 06/14/2020 Sex Assigned at Date Recorded Female 08/03/2020 10:16 PM EDT Job Start Date Occupation Industry Not on file Not on file Not on file documented as of this encounter Plan of Treatment Not on file documented as of this encounter Visit Diagnoses Not on filedocumented in this encounter Care Teams Laborer Cement Gun Placing Relationship Specialty Start Date End Date Ora Ronquillo MD 444 [place] [address] PCP - General Internal Medicine 10/11/21 Jl Mednez MD [address] [place] [address] Dr Montiel [address] [place] [address] Specialist Cardiovascular Disease 10/13/21 Jannette Boudreaux MD [address] [address] Surgeon Neurosurgery 04/07/22 Tenisha Mendieta PA-C [address] [address] Specialist Neurosurgery 04/07/22 Julio Monk PA-C 175 [facility] 300 [place] [address] Specialist Neurosurgery 04/07/22 Luis Armando Eller MD [address] [address] Specialist ORTHOPEDIC SURGERY 10/01/23 Jayesh Pineda MD 305 [place] [address] Specialist Endocrinology 10/01/23 Kelsi Tejada MD 305 [place] [address] Specialist Allergy & Immunology 10/01/23 Pretty Le MD 175 [facility] 200 [place] [address] Specialist Pulmonology 10/01/23 Vesta Michael PA-C 300 [facility] 210 [place] [address] Specialist Vascular Surgery 10/01/23 [facility] 46 [place] [address] Specialist Optometry 10/01/23 documented as of this encounter
--- OUTSIDE RECORDS SUMMARY | 2024-07-30 10:29 | XMS_ITS | Encounter Summary ---
Author Organization [facility] Address [address] [place] [address] Care Team Providers Care Eap Counselor Name Role Phone Shweta Tellez MD Primary Care Provider Ora Diaz MD Primary Care Prov ider Jl Mendez MD Unavailable [phone] Jannette Boudreaux MD Unavailable [phone] eTnisha Mendieta PA-C Unavailable Julio Monk PA-C Unavailable Luis Armando Eller MD Unavailable [phone] Jayesh Pineda MD Unavailable Kelsi Tejada MD Unavailable Unavailable Pretty Le MD Unavailable Vesta Michael PA-C Unavailable [phone] [facility] Unavailable [phone] Encounter Details Date Type Department Care Team Description 09/09/2021 Refill Endocrinology - [address] [address] Jayesh Pineda MD 305 [place], [place] [phone] Social History Tobacco Use Types Packs/Day Years Used Date Smoking Tobacco: Never Smokeless Tobacco: Never Alcohol Use Standard Drinks/Week Comments No 0 (1 standard drink = 0.6 oz pur e alcohol) Education Answer Date Recorded What is the highest level of school you have completed or the highest degree you have received? 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, C.O.D. CLERK, CHANDRAKANT) 06/14/2020 Sex Assigned at Date [...] on filedocumented in this encounter Care Teams Eap Counselor Relationship Specialty Start Date End Date Shweta Tellez MD PCP - General Internal Medicine 01/12/21 10/10/21 Ora Ronquillo MD [address] [place] [address] PCP - General Internal Medicine 10/11/21 Jl Mendez MD [address] [place] [address] Dr Montiel [address] [place] [address] Specialist Cardiovascular Disease 10/13/21 Jannette Boudreaux MD [address] [address] Surgeon Neurosurgery 04/07/22 Tenisha Mendieta PA-C 175 [facility] 300 [place] [address] Specialist Neurosurgery 04/07/22 Julio Monk PA-C 175 [facility] 300 [place] [address] Specialist Neurosurgery 04/07/22 Luis Armando Eller MD 175 [facility] 250 [place] [address] Specialist ORTHOPEDIC SURGERY 10/01/23 Jayesh Pineda MD 305 [place] [address] Specialist Endocrinology 10/01/23 Kelsi Tejada MD 305 [place] [address] Specialist Allergy & Immunology 10/01/23 Pretty Le MD 175 [facility] 200 [place] [address] Specialist Pulmonology 10/01/23 Vesta Michael PA-C 300 [facility] 210 [place] [address] Specialist Vascular Surgery 10/01/23 [facility] 46 [place] [address] Specialist Optometry 10/01/23 documented as of this encounter
--- OUTSIDE RECORDS SUMMARY | 2024-07-30 10:29 | XMS_ITS | Encounter Summary ---
Author Organization [facility] Address [address] [place] [address] Care Team Providers Care Automotive Assembler Name Role Phone Teressa Solis DO Primary Care Pro vider Unavailable Mina Pretty DO Primary Care Provider Shweta Cronin MD Primary Care Provider Ora Diaz MD Primary Care Prov ider Jl Mendez MD Unavailable Jannette Bodureaux MD Unavailable [phone] Tenisha Mendieta PA-C Unavailable Julio Monk PA-C Unavailable Luis Armando Eller MD Unavailable [phone] Jayesh Pineda MD Unavailable Kelsi Tejada MD Unavailable Unavailable Pretty eL MD Unavailable Vesta Michael PA-C Unavailable [facility] Unavailable Encounter Details Date Type Department Care Team Description 06/13/2019 Telephone Allergy [place] 98 [address] [place] [address] Kelsi Tejada MD Social History [...] Irby M.A. - 06/13/2019 9:08 AM EDT [facility] calling to set up delivery [...] filedocumented in this encounter Care Teams Automotive Assembler Relationship Specialty Start Date End Date Teressa Solis DO PCP - General Internal Medicine 12/18/13 09/15/20 Mina Pretty DO PCP - General Internal Medicine 09/16/20 1 Shweta Tellez MD PCP - General Internal Medicine 01/12/21 10/10/21 Ora Ronquillo MD [address] [place] [address] PCP - General Internal Medicine 10/11/21 Jl Mendez MD [address] [place] [address] Dr Montiel [address] [place] [address] Specialist Cardiovascular Disease 10/13/21 Jannette Boudreaux MD [address] [address] Surgeon Neurosurgery 04/07/22 Tenisha Mendieta PA-C 175 [facility] 300 [place] [address] Specialist Neurosurgery 04/07/22 Julio Mnok PA-C 175 [facility] 300 [place] [address] Specialist Neurosurgery 04/07/22 Luis Armando Eller MD 175 [facility] 250 [place] [address] Specialist ORTHOPEDIC SURGERY 10/01/23 Jayesh Pineda MD 305 [place] [address] Specialist Endocrinology 10/01/23 Kelsi Tejada MD 305 [place] [address] Specialist Allergy & Immunology 10/01/23 Pretty Le MD 175 [facility] 200 [place] [address] Specialist Pulmonology 10/01/23 Vesta Michael PA-C 300 [facility] 210 [place] [address] Specialist Vascular Surgery 10/01/23 [facility] 46 [place] [address] Specialist Optometry 10/01/23 documented as of this encounter
--- OUTSIDE RECORDS SUMMARY | 2024-07-30 10:29 | XMS_ITS | Encounter Summary ---
Author Organization [facility] Address [address] [place] [address] Care Team Providers Care Jacquard Card Lacer Name Role Phone Teressa Solis DO Primary Care Pro vider Unavailable Mina Pretty DO Primary Care Provider Shweta Cronin MD Primary Care Provider Ora Diaz MD Primary Care Prov ider Jl Mendez MD Unavailable [phone] Jannette Boudreaux MD Unavailable [phone] Tenisha Mendieta PA-C Unavailable Julio Monk PA-C Unavailable Luis Armando Eller MD Unavailable [phone] Jayesh Pineda MD Unavailable Kelsi Tejada MD Unavailable Unavailable Pretty Le MD Unavailable Vesta Michael PA-C Unavailable [phone] [facility] Unavailable [phone] Reason for Visit * Reason Comments E-prescribe Rx Request Encounter Details Date Type Department Care Team Description 04/02/2015 [address] [place] [id number] Ambrosio Jacob PA-C E-prescribe Rx Request Social [...] NO Patients current insurance carrier is: Payor: [employer] FFS / Plan: FFS HMO $0 [employer] [id number] / Product Type: MEDICAID RISK documented in this encounter Plan of Treatment Not on file documented as of this encounter Visit Diagnoses Not on filedocumented in this encounter Care Teams Jacquard Card Lacer Relationship Specialty Start Date End Date Teressa Solis DO PCP - General Internal Medicine 12/18/13 09/15/20 Mina Pretty DO PCP - General Internal Medicine 09/16/20 1 Shweta Tellez MD PCP - General Internal Medicine 01/12/21 10/10/21 Ora Ronquillo MD 4 [place] [address] PCP - General Internal Medicine 10/11/21 Jl Mendez MD [address] [place] [address] Dr Montiel [address] [place] [address] Specialist Cardiovascular Disease 10/13/21 Jannette Boudreaux MD [address] [address] Surgeon Neurosurgery 04/07/22 Tenisha Mendieta PA-C [address] [address] Specialist Neurosurgery 04/07/22 Julio Monk PA-C 175 [facility] [address] [place] [address] Specialist Neurosurgery 04/07/22 Luis Armando Eller MD 175 [facility] 250 [place] [address] Specialist ORTHOPEDIC SURGERY 10/01/23 Jayesh Pineda MD 305 [place] [address] Specialist Endocrinology 10/01/23 Kelis Tejada MD 305 [place] [address] Specialist Allergy & Immunology 10/01/23 Pretty Le MD 175 [facility] [address] [place] [address] Specialist Pulmonology 10/01/23 Vesta Michael PA-C 300 [facility] [address] [place] [address] Specialist Vascular Surgery 10/01/23 [facility] 46 [place] [address] Specialist Optometry 10/01/23 documented as of this encounter
--- OUTSIDE RECORDS SUMMARY | 2024-07-30 10:29 | XMS_ITS | Encounter Summary ---
Author Organization [facility] Address [address] [place] [address] Care Team Providers Care Marine Drafter Name Role Phone Ora Ronquillo MD Primary Care Prov ider Jl Mendez MD Unavailable Jannette Boudreaux MD Unavailable [phone] Tenisha Mendieta PA-C Unavailable [phone] Julio Monk PA-C Unavailable Luis Armando Eller MD Unavailable [phone] Jayesh Pineda MD Unavailable Kelsi Tejada MD Unavailable Unavailable Pretty Le MD Unavailable Vesta Michael PA-C Unavailable [facility] Unavailable [phone] Encounter Details Date Type Department Care Team Description 06/30/2022 Orders Only Adult Medicine [address] [id number] Ora Ronquillo MD [address] [place] [id number] Preoperative examination; Screening for deficiency anemia Social [...] 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, MAGAZINE KEEPER, CHANDRAKANT) 06/14/2020 Sex Assigned at Date Recorded [...] PANEL CALCIUM TOTAL (10/30/2022 12:05 PM EDT) [facility] GLUCOSE 129(H) 70 - 100 mg/dL 10/30/2022 [...] AUTO&AUTO DIFRNTL WBC (10/30/2022 12:05 PM EDT) [facility] WHITE BLOOD COUNT 7.1 4.8 - 10.8 [...] (HCC) documented in this encounter Care Teams Marine Drafter Relationship Specialty Start Date End Date Ora Ronquillo MD 444 [place] [address] PCP - General Internal Medicine 10/11/21 Jl Mendez MD [address] [place] [address] Dr Mont[address] [place] [address] Specialist Cardiovascular Disease 10/13/21 Jannette Boudreaux MD 175 [facility] 300 [place] [address] Surgeon Neurosurgery 04/07/22 Tenisha Mendieta PA-C [address] [address] Specialist Neurosurgery 04/07/22 Julio Monk PA-C [address] [address] Specialist Neurosurgery 04/07/22 Luis Armando Eller MD [address] [address] Specialist ORTHOPEDIC SURGERY 10/01/23 Jayesh Pindea MD 305 [place] [address] Specialist Endocrinology 10/01/23 Klesi Tejada MD 305 [place] [address] Specialist Allergy & Immunology 10/01/23 Pretty Le MD 175 [facility] 200 [place] [address] Specialist Pulmonology 10/01/23 Vesta Michael PA-C 300 [facility] 210 [place] [address] Specialist Vascular Surgery 10/01/23 [facility] 46 [place], [place] [address] Specialist Optometry 10/01/23 documented as of this encounter
--- OUTSIDE RECORDS SUMMARY | 2024-07-30 10:29 | XMS_ITS | Encounter Summary ---
Author Organization [facility] Address [address] [place] [address] Care Team Providers Care Armhole Raiser Lockstitch Name Role Phone Teresas Solis DO Primary Care Pro vider Unavailable Mina Pretty DO Primary Care Provider Shweta Cronin MD Primary Care Provider Ora Diaz MD Primary Care Prov ider Jl Mendez MD Unavailable Jannette Boudreaux MD Unavailable [phone] Tenisha Mendieta PA-C Unavailable [phone] Julio Monk PA-C Unavailable [phone] Luis Armando Eller MD Unavailable [phone] Jayesh Pineda MD Unavailable Kelsi Tejada MD Unavailable Unavailable Pretty Le MD Unavailable Vesta Michael PA-C Unavailable [phone] [facility] Unavailable Encounter Details Date Type Department Care Team Description 07/21/2019 Orders Only Adult Medicine B - [place] 305 [place], [place] [phone] Dez Tristan MD Vitamin D deficiency (Primary [...] deficiency documented in this encounter Care Teams Armhole Raiser Lockstitch Relationship Specialty Start Date End Date Teressa Solis DO PCP - General Internal Medicine 12/18/13 09/15/20 Mina Pretty DO PCP - General Internal Medicine 09/16/20 Shweta Boucher MD PCP - General Internal Medicine 01/12/21 10/10/21 Ora Ronquillo MD 444 [place] [address] PCP - General Internal Medicine 10/11/21 Jl Mendez MD [address] [place] [address] Dr Montiel [address] [place] [address] Specialist Cardiovascular Disease 10/13/21 Jannette Boudreaux MD [address] [address] Surgeon Neurosurgery 04/07/22 Tenisha Mendieta PA-C [address] [address] Specialist Neurosurgery 04/07/22 Julio Monk PA-C 175 [facility] [address] [place] [address] Specialist Neurosurgery 04/07/22 Luis Armando Eller MD [address] [address] Specialist ORTHOPEDIC SURGERY 10/01/23 Jayesh Pineda MD 305 [place] [address] Specialist Endocrinology 10/01/23 Kelsi Tejada MD 305 [place] [address] Specialist Allergy & Immunology 10/01/23 Pretty Le MD 175 [facility] [address] [place] [address] Specialist Pulmonology 10/01/23 Vesta Michael PA-C 300 [facility] 210 [place] [address] Specialist Vascular Surgery 10/01/23 [facility] 46 [place] [address] Specialist Optometry 10/01/23 documented as of this encounter
--- OUTSIDE RECORDS SUMMARY | 2024-07-30 10:29 | XMS_ITS | Encounter Summary ---
Author Organization [facility] Address [address] [place] [address] Care Team Providers Care Manager Of Housekeeping Name Role Phone Teressa Solis DO Primary Care Pro vider Unavailable Mina Pretty DO Primary Care Provider Shweta Cronin MD Primary Care Provider Ora Diaz MD Primary Care Prov ider Jl Mendez MD Unavailable [phone] Jannette Boudreaux MD Unavailable [phone] Tenisha Mendieta PA-C Unavailable Julio Monk PA-C Unavailable [phone] Luis Armando Eller MD Unavailable [phone] Jayesh Pineda MD Unavailable Kelsi Tejada MD Unavailable Unavailable Pretty Le MD Unavailable Vesta Michael PA-C Unavailable [phone] [facility] Unavailable [phone] Encounter Details Date Type Department Care Team Description 06/23/2015 Hospital Medical Records 4 [place] [address] Phoebe Crain MD Social History Tobacco Use Types Packs/Day Years Used Date Smoking Tobacco: Never Smokeless Tobacco: Never Alcohol Use Standard Drinks/Week Comments No 0 (1 standard drink = 0.6 oz pur e alcohol) Education Answer Date Recorded What is the highest level of school you have completed or the highest degree you have received? 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, COIN MACHINE OPERATOR, CHANDRAKANT) 06/14/2020 Sex Assigned at Date Recorded Female 08/03/2020 10:16 PM EDT Job Start Date Occupation Industry Not on file Not on file Not on file documented as of this encounter Plan of Treatment Not on file documented as of this encounter Visit Diagnoses Not on filedocumented in this encounter Care Teams Manager Of Housekeeping Relationship Specialty Start Date End Date Teressa Solis DO PCP - General Internal Medicine 12/18/13 09/15/20 Mina Pretty DO PCP - General Internal Medicine 09/16/20 Shweta Boucher MD PCP - General Internal Medicine 01/12/21 10/10/21 Ora Ronquillo MD [address] [place] [address] PCP - General Internal Medicine 10/11/21 Jl Mendez MD [address] [place] [address] Dr Mont[address] [place] [address] Specialist Cardiovascular Disease 10/13/21 Jannette Boudreaux MD [address] [address] Surgeon Neurosurgery 04/07/22 Tenisha Mendieta PA-C [address] [address] Specialist Neurosurgery 04/07/22 Julio Monk PA-C [address] [address] Specialist Neurosurgery 04/07/22 Luis Armando Eller MD [address] [address] Specialist ORTHOPEDIC SURGERY 10/01/23 Jayesh Pineda MD [address] [place] [address] Specialist Endocrinology 10/01/23 Kelsi Tejada MD [address] [place] [address] Specialist Allergy & Immunology 10/01/23 Pretty Le MD 175 [facility] [address] [place] [address] Specialist Pulmonology 10/01/23 Vesta Michael PA-C 300 [facility] 210 [place] [address] Specialist Vascular Surgery 10/01/23 [facility] 46 [place] [address] Specialist Optometry 10/01/23 documented as of this encounter
--- OUTSIDE RECORDS SUMMARY | 2024-07-30 10:29 | XMS_ITS | Encounter Summary ---
Author Organization [facility] Address [address] [place] [address] Care Team Providers Care Mold Checker Name Role Phone Ora Ronquillo MD Primary Care Prov ider Jl Mendez MD Unavailable Jannette Boudreaux MD Unavailable [phone] Tenisha Mendieta PA-C Unavailable Julio Monk PA-C Unavailable Luis Armando Eller MD Unavailable [phone] Jayesh Pineda MD Unavailable Kelsi Tejada MD Unavailable Unavailable Pretty Le MD Unavailable Vesta Michael PA-C Unavailable [facility] Unavailable [phone] Encounter Details Date Type Department Care Team Description 11/30/2023 Telephone [facility] Medical [facility] 175 [facility] [address] [place] [address] Lorie Moore, DONN 1515 [facility] [place] [address] Social History Tobacco Use Types Packs/Day Years Used Date Smoking Tobacco: Never Smokeless Tobacco: Never Alcohol Use Standard Drinks/Week Comments No 0 (1 standard drink = 0.6 oz pur e alcohol) Education Answer Date Recorded What is the highest level of school you have completed or the highest degree you have received? 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, REGULATORY AFFAIRS ANALYST, HCANDRAKANT) 06/14/2020 Sex Assigned at Date Recorded Female [...] filedocumented in this encounter Care Teams Mold Checker Relationship Specialty Start Date End Date Ora Ronquillo MD [address] [place] [address] PCP - General Internal Medicine 10/11/21 Jl Mendez MD [address] [place] [address] Dr [address] [place] [address] Specialist Cardiovascular Disease 10/13/21 Jannette Boudreaux MD [address] [address] Surgeon Neurosurgery 04/07/22 Tenisha Mendieta PA-C [address] [address] Specialist Neurosurgery 04/07/22 Julio Monk PA-C 175 [facility] [address] [place] [address] Specialist Neurosurgery 04/07/22 Luis Armando Eller MD [address] [address] Specialist ORTHOPEDIC SURGERY 10/01/23 Jayesh Pineda MD 305 [place] [address] Specialist Endocrinology 10/01/23 Kelsi Tejada MD 305 [place] [address] Specialist Allergy & Immunology 10/01/23 Pretty Le MD 175 [facility] [address] [place] [address] Specialist Pulmonology 10/01/23 Vesta Michael PA-C 300 [facility] 210 [place] [address] Specialist Vascular Surgery 10/01/23 [facility] 46 [place] [address] Specialist Optometry 10/01/23 documented as of this encounter
--- OUTSIDE RECORDS SUMMARY | 2024-07-30 10:29 | XMS_ITS | Encounter Summary ---
Author Organization [facility] Address [address] [place] [address] Care Team Providers Care Donor Relations Associate Name Role Phone Ora Ronquillo MD Primary Care Prov ider Jl Mendez MD Unavailable Jannette Boudreaux MD Unavailable [phone] Tenisha Mendieta-C Unavailable Julio Monk-C Unavailable [phone] Luis Armando Eller MD Unavailable [phone] Jayesh Pineda MD Unavailable Kelsi Tejada MD Unavailable Unavailable Pretty Le MD Unavailable Vesta Michael PA-C Unavailable [facility] Unavailable Encounter Details Date Type Department Care Team Description 10/16/2023 [place] Records [facility] [address] [phone] Luis Armando Eller MD [address] [id number] Social History Tobacco Use Types Packs/Day Years Used Date Smoking Tobacco: Never Smokeless Tobacco: Never Alcohol Use Standard Drinks/Week Comments No 0 (1 standard drink = 0.6 oz pur e alcohol) Education Answer Date Recorded What is the highest level of school you have completed or the highest degree you have received? 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, TECHNICAL PRODUCT MANAGER, CHANDRAKANT) 06/14/2020 Sex Assigned at Date Recorded Female 08/03/2020 10:16 PM EDT Job Start Date Occupation Industry Not on file Not on file Not on file documented as of this encounter Plan of Treatment Not on file documented as of this encounter Visit Diagnoses Not on filedocumented in this encounter Care Teams Donor Relations Associate Relationship Specialty Start Date End Date Ora Ronquillo MD 444 [place] [address] PCP - General Internal Medicine 10/11/21 Jl Mendez MD [address] [place] [address] Dr [address] [place] [address] Specialist Cardiovascular Disease 10/13/21 Jannette Boudreaux MD [address] [address] Surgeon Neurosurgery 04/07/22 Tenisha Mendieta PA-C [address] [address] Specialist Neurosurgery 04/07/22 Julio Monk PA-C [address] [address] Specialist Neurosurgery 04/07/22 Luis Armando Eller MD [address] [address] Specialist ORTHOPEDIC SURGERY 10/01/23 Jayesh Pineda MD 305 [place] [address] Specialist Endocrinology 10/01/23 Kelsi Tejada MD 305 [place] [address] Specialist Allergy & Immunology 10/01/23 Pretty Le MD 175 [facility] 200 [place] [address] Specialist Pulmonology 10/01/23 Vesta Michael PA-C 300 [facility] 210 [place] [address] Specialist Vascular Surgery 10/01/23 [facility] 46 [place] [address] Specialist Optometry 10/01/23 documented as of this encounter
--- OUTSIDE RECORDS SUMMARY | 2024-07-30 10:29 | XMS_ITS | Encounter Summary ---
Author Organization [facility] Address [address] [place] [address] Care Team Providers Care Senior Systems Developer Name Role Phone Ora Ronquillo MD Primary Care Prov ider Jl Mendez MD Unavailable Jannette Boudreaux MD Unavailable [phone] Tenisha MendietaC Unavailable [phone] Julio Monk-C Unavailable [phone] Luis Armando Eller MD Unavailable [phone] Jayesh Pineda MD Unavailable Kelsi Tejada MD Unavailable Unavailable Pretty Le MD Unavailable Vesta Michael PA-C Unavailable [facility] Unavailable Encounter Details Date Type Department Care Team Description 08/24/2023 SCAN [facility] Medical [facility] 175 [facility] [address] [place] [address] Luis Armando Eller MD 175 [facility] [address] [place], [place] [id number] Social History Tobacco Use Types Packs/Day Years Used Date Smoking Tobacco: Never Smokeless Tobacco: Never Alcohol Use Standard Drinks/Week Comments No 0 (1 standard drink = 0.6 oz pur e alcohol) Education Answer Date Recorded What is the highest level of school you have completed or the highest degree you have received? 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, CURB SUPERVISOR, CHANDRAKANT) 06/14/2020 Sex Assigned at Date Recorded Female 08/03/2020 10:16 PM EDT Job Start Date Occupation Industry Not on file Not on file Not on file documented as of this encounter Plan of Treatment Not on file documented as of this encounter Visit Diagnoses Not on filedocumented in this encounter Care Teams Senior Systems Developer Relationship Specialty Start Date End Date Ora Ronquillo MD 444 [place] [address] PCP - General Internal Medicine 10/11/21 Jl Mendez MD [address] [place] [address] Dr Mont[address] [place] [address] Specialist Cardiovascular Disease 10/13/21 Jannette Boudreaux MD [address] [address] Surgeon Neurosurgery 04/07/22 Tenisha Mendieta PA-C [address] [address] Specialist Neurosurgery 04/07/22 Julio Monk PA-C [address] [address] Specialist Neurosurgery 04/07/22 Luis Armando Eller MD [address] [address] Specialist ORTHOPEDIC SURGERY 10/01/23 Jayesh Pineda MD 305 [place] [address] Specialist Endocrinology 10/01/23 Kelsi Tejada MD 305 [place] [address] Specialist Allergy & Immunology 10/01/23 Pretty Le MD 175 [facility] 200 [place] [address] Specialist Pulmonology 10/01/23 Vesta Michael PA-C 300 [facility] 210 [place] [address] Specialist Vascular Surgery 10/01/23 [facility] 46 [place] [address] Specialist Optometry 10/01/23 documented as of this encounter
--- OUTSIDE RECORDS SUMMARY | 2024-07-30 10:29 | XMS_ITS | Encounter Summary ---
Author Organization [facility] Address [address] [place] [address] Care Team Providers Care Cage Manager Name Role Phone Ora Ronquillo MD Primary Care Prov ider Jl Mendez MD Unavailable [phone] Jannette Bouderaux MD Unavailable [phone] Tenisha Mendieta PA-C Unavailable Julio Monk PA-C Unavailable [phone] Luis Armando Eller MD Unavailable [phone] Jayesh Pineda MD Unavailable Kelsi Tejada MD Unavailable Unavailable Pretty Le MD Unavailable Vesta Michael PA-C Unavailable [facility] Unavailable Encounter Details Date Type Department Care Team Description 10/08/2023 SCAN [facility] Medical [facility] 175 [facility] [address] [place] [id number] Lorie Moore, DONN 1515 [facility] [place] [address] Social History Tobacco Use Types Packs/Day Years Used Date Smoking Tobacco: Never Smokeless Tobacco: Never Alcohol Use Standard Drinks/Week Comments No 0 (1 standard drink = 0.6 oz pur e alcohol) Education Answer Date Recorded What is the highest level of school you have completed or the highest degree you have received? 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, JUNIOR ACCOUNTANT BOOKKEEPER, CHANDRAKANT) 06/14/2020 Sex Assigned at Date Recorded Female 08/03/2020 10:16 PM EDT Job Start Date Occupation Industry Not on file Not on file Not on file documented as of this encounter Plan of Treatment Not on file documented as of this encounter Visit Diagnoses Not on filedocumented in this encounter Care Teams Cage Manager Relationship Specialty Start Date End Date Ora Ronquillo MD 444 [place] [address] PCP - General Internal Medicine 10/11/21 Jl Mendez MD [address] [place] [address] Dr Mont[address] [place] [address] Specialist Cardiovascular Disease 10/13/21 Jannette Boudreaux MD [address] [address] Surgeon Neurosurgery 04/07/22 Tenisha Mendieta PA-C [address] [address] Specialist Neurosurgery 04/07/22 Julio Monk PA-C 175 [facility] 300 [place] [address] Specialist Neurosurgery 04/07/22 Luis Armando Eller MD [address] [address] Specialist ORTHOPEDIC SURGERY 10/01/23 Jayesh Pineda MD 305 [place] [address] Specialist Endocrinology 10/01/23 Kelsi Tejada MD 305 [place] [address] Specialist Allergy & Immunology 10/01/23 Pretty Le MD 175 [facility] 200 [place] [address] Specialist Pulmonology 10/01/23 Vesta Michael PA-C 300 [facility] 210 [place] [address] Specialist Vascular Surgery 10/01/23 [facility] 46 [place] [address] Specialist Optometry 10/01/23 documented as of this encounter
--- OUTSIDE RECORDS SUMMARY | 2024-07-30 10:29 | XMS_ITS | Encounter Summary ---
Author Organization [facility] Address [address] [place] [address] Care Team Providers Care Fabric Worker Name Role Phone Ora Ronquillo MD Primary Care Prov ider Jl Mendez MD Unavailable [phone] Jannette Boudreaux MD Unavailable [phone] Tenisha MendietaC Unavailable [phone] Julio Monk-C Unavailable Luis Armando Eller MD Unavailable [phone] Jayesh Pineda MD Unavailable Kelsi Tejada MD Unavailable Unavailable Pretty Le MD Unavailable Vesta Michael PA-C Unavailable [facility] Unavailable [phone] Reason for Visit * Reason Onset Date Comments Surgery (Schedule) 10/10/2023 Encounter Details Date Type Department Care Team Description 10/10/2023 Telephone [facility] Medical [facility] - [facility] 175 [facility] [address] [place] [address] Luis Armando Eller MD 175 [facility] [address] [place] [id number] Surgery (Schedule) Social History Tobacco Use Types Packs/Day Years Used Date Smoking Tobacco: Never Smokeless Tobacco: Never Alcohol Use Standard Drinks/Week Comments No 0 (1 standard drink = 0.6 oz pur e alcohol) Education Answer Date Recorded What is the highest level of school you have completed or the highest degree you have received? 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, ELECTRIC TRACK SWITCH MAINTAINER, CHANDRAKANT) 06/14/2020 Sex Assigned at Date Recorded [...] filedocumented in this encounter Care Teams Fabric Worker Relationship Specialty Start Date End Date Ora Ronquillo MD 444 [place] [address] PCP - General Internal Medicine 10/11/21 Jl Mendez MD [address] [place] [address] Dr Mont[address] [place] [address] Specialist Cardiovascular Disease 10/13/21 Jannette Boudreaux MD [address] [address] Surgeon Neurosurgery 04/07/22 Tenisha Mendieta PA-C [address] [address] Specialist Neurosurgery 04/07/22 Julio Monk PA-C 175 [facility] 300 [place] [address] Specialist Neurosurgery 04/07/22 Luis Armando Eller MD [address] [address] Specialist ORTHOPEDIC SURGERY 10/01/23 Jayesh Pineda MD 305 [place] [address] Specialist Endocrinology 10/01/23 Kelsi Tejada MD 305 [place] [address] Specialist Allergy & Immunology 10/01/23 Pretty Le MD 175 [facility] [address] [place] [address] Specialist Pulmonology 10/01/23 Vesta Michael PA-C 300 [facility] 210 [place] [address] Specialist Vascular Surgery 10/01/23 [facility] 46 [place] [address] Specialist Optometry 10/01/23 documented as of this encounter
--- OUTSIDE RECORDS SUMMARY | 2024-07-30 10:29 | XMS_ITS | Encounter Summary ---
Author Organization [facility] Address [address] [place] [address] Care Team Providers Care Stockbroker Name Role Phone Ora Ronquillo MD Primary Care Prov ider Jl Mendez MD Unavailable Jannette Boudreaux MD Unavailable [phone] Tenisha MendietaC Unavailable Julio Monk-C Unavailable Luis Armando Eller MD Unavailable [phone] Jayesh Pineda MD Unavailable Kelsi Tejada MD Unavailable Unavailable Pretty Le MD Unavailable Vesta Michael PA-C Unavailable [facility] Unavailable Encounter Details Date Type Department Care Team Description 12/06/2023 SCAN [facility] Medical [facility] 175 [facility] [address] [place] [address] Luis Armando Eller MD 175 [facility] [address] [place], [place] [phone] Social History Tobacco Use Types Packs/Day Years Used Date Smoking Tobacco: Never Smokeless Tobacco: Never Alcohol Use Standard Drinks/Week Comments No 0 (1 standard drink = 0.6 oz pur e alcohol) Education Answer Date Recorded What is the highest level of school you have completed or the highest degree you have received? 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, PROGRAM DIRECTOR GROUP WORK, CHANDRAKANT) 06/14/2020 Sex Assigned at Date Recorded Female 08/03/2020 10:16 PM EDT Job Start Date Occupation Industry Not on file Not on file Not on file documented as of this encounter Plan of Treatment Not on file documented as of this encounter Visit Diagnoses Not on filedocumented in this encounter Care Teams Stockbroker Relationship Specialty Start Date End Date Ora Ronquillo MD 444 [place] [address] PCP - General Internal Medicine 10/11/21 Jl Mendez MD [address] [place] [address] Dr Mont[address] [place] [address] Specialist Cardiovascular Disease 10/13/21 Jannette Boudreaux MD [address] [address] Surgeon Neurosurgery 04/07/22 Tenisha Mendieta PA-C [address] [address] Specialist Neurosurgery 04/07/22 Julio Monk PA-C [address] [address] Specialist Neurosurgery 04/07/22 Luis Armando Eller MD [address] [address] Specialist ORTHOPEDIC SURGERY 10/01/23 Jayesh Pineda MD 305 [place] [address] Specialist Endocrinology 10/01/23 Kelsi Tejada MD 305 [place] [address] Specialist Allergy & Immunology 10/01/23 Pretty Le MD 175 [facility] 200 [place] [address] Specialist Pulmonology 10/01/23 Vesta Michael PA-C 300 [facility] 210 [place] [address] Specialist Vascular Surgery 10/01/23 [facility] 46 [place] [address] Specialist Optometry 10/01/23 documented as of this encounter
--- OUTSIDE RECORDS SUMMARY | 2024-07-30 10:29 | XMS_ITS | Encounter Summary ---
Author Organization [facility] Address [address] [place] [address] Care Team Providers Care Internet Media Planner Name Role Phone Ora Ronquillo MD Primary Care Prov ider Jl Mendez MD Unavailable Janentte Boudreaux MD Unavailable [phone] Tenisha MendietaC Unavailable Julio Monk-C Unavailable [phone] Luis Armando Eller MD Unavailable [phone] Jayesh Pineda MD Unavailable Kelsi Tejada MD Unavailable Unavailable Pretty Le MD Unavailable Vesta Michael PA-C Unavailable [phone] [facility] Unavailable Encounter Details Date Type Department Care Team Description 12/10/2023 SCAN [facility] Medical [facility] - [facility] Care Center 175 [facility] [address] [place] [address] Luis Armando Eller MD 175 [facility] [address] [place], [place] [id number] Social History Tobacco Use Types Packs/Day Years Used Date Smoking Tobacco: Never Smokeless Tobacco: Never Alcohol Use Standard Drinks/Week Comments No 0 (1 standard drink = 0.6 oz pur e alcohol) Education Answer Date Recorded What is the highest level of school you have completed or the highest degree you have received? 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, MILD DISABILITIES TEACHER, CHANDRAKANT) 06/14/2020 Sex Assigned at Date Recorded Female 08/03/2020 10:16 PM EDT Job Start Date Occupation Industry Not on file Not on file Not on file documented as of this encounter Plan of Treatment Not on file documented as of this encounter Visit Diagnoses Not on filedocumented in this encounter Care Teams Internet Media Planner Relationship Specialty Start Date End Date Ora Ronquillo MD [address] [place] [address] PCP - General Internal Medicine 10/11/21 Jl Mendez MD [address] [place] [address] Dr Mont[address] [place] [address] Specialist Cardiovascular Disease 10/13/21 Jannette Boudreaux MD [address] [address] Surgeon Neurosurgery 04/07/22 Tenisha Mendieta PA-C [address] [address] Specialist Neurosurgery 04/07/22 Julio Monk PA-C [address] [address] Specialist Neurosurgery 04/07/22 Luis Armando Eller MD [address] [address] Specialist ORTHOPEDIC SURGERY 10/01/23 Jayesh Pineda MD 305 [place] [address] Specialist Endocrinology 10/01/23 Kelsi Tejada MD 305 [place] [address] Specialist Allergy & Immunology 10/01/23 Pretty Le MD 175 [facility] 200 [place] [address] Specialist Pulmonology 10/01/23 Vesta Michael PA-C 300 [facility] 210 [place] [address] Specialist Vascular Surgery 10/01/23 [facility] 46 [place] [address] Specialist Optometry 10/01/23 documented as of this encounter
--- OUTSIDE RECORDS SUMMARY | 2024-07-30 10:29 | XMS_ITS | Encounter Summary ---
Author Organization [facility] Address [address] [place] [address] Care Team Providers Care Production Hardener Name Role Phone Ora Ronquillo MD Primary Care Prov ider Jl Mendez MD Unavailable [phone] Jannette Boudreaux MD Unavailable [phone] Tenisha Mendieta-C Unavailable Julio Monk PA-C Unavailable [phone] Luis Armando Eller MD Unavailable [phone] Jayesh Pineda MD Unavailable Kelsi Tejada MD Unavailable Unavailable Pretty Le MD Unavailable Vesta Michael PA-C Unavailable [facility] Unavailable Encounter Details Date Type Department Care Team Description 11/14/2023 SCAN [facility] 175 [facility] [address] [place] [phone] Lorie Moore, ODNN 1515 [facility] [place] [address] Social History Tobacco Use Types Packs/Day Years Used Date Smoking Tobacco: Never Smokeless Tobacco: Never Alcohol Use Standard Drinks/Week Comments No 0 (1 standard drink = 0.6 oz pur e alcohol) Education Answer Date Recorded What is the highest level of school you have completed or the highest degree you have received? 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, CENTER DIRECTOR, CHANDRAKANT) 06/14/2020 Sex Assigned at Date Recorded Female 08/03/2020 10:16 PM EDT Job Start Date Occupation Industry Not on file Not on file Not on file documented as of this encounter Plan of Treatment Not on file documented as of this encounter Visit Diagnoses Not on filedocumented in this encounter Care Teams Production Hardener Relationship Specialty Start Date End Date Ora Ronquillo MD [address] [place] [address] PCP - General Internal Medicine 10/11/21 Jl Mendez MD [address] [place] [address] Dr Mont[address] [place] [address] Specialist Cardiovascular Disease 10/13/21 Jannette Boudreaux MD [address] [address] Surgeon Neurosurgery 04/07/22 Tenisha Mendieta PA-C [address] [address] Specialist Neurosurgery 04/07/22 Julio Monk PA-C 175 [facility] 300 [place] [address] Specialist Neurosurgery 04/07/22 Luis Armando Eller MD [address] [address] Specialist ORTHOPEDIC SURGERY 10/01/23 Jayesh Pineda MD 305 [place] [address] Specialist Endocrinology 10/01/23 Kelsi Tejada MD 305 [place] [address] Specialist Allergy & Immunology 10/01/23 Pretty Le MD 175 [facility] 200 [place] [address] Specialist Pulmonology 10/01/23 Vesta Michael PA-C 300 [facility] 210 [place] [address] Specialist Vascular Surgery 10/01/23 [facility] 46 [place] [address] Specialist Optometry 10/01/23 documented as of this encounter
--- OUTSIDE RECORDS SUMMARY | 2024-07-30 10:29 | XMS_ITS | Encounter Summary ---
Author Organization [facility] Address [address] [place] [address] Care Team Providers Care Under Cutter Name Role Phone Ora Ronquillo MD Primary Care Prov ider Jl Mendez MD Unavailable Jannette Boudreaux MD Unavailable [phone] Tenisha Mendieta PA-C Unavailable Julio Monk PA-C Unavailable [phone] Luis Armando Eller MD Unavailable [phone] Jayesh Pineda MD Unavailable Kelsi Tejada MD Unavailable Unavailable Pretty Le MD Unavailable Vesta Michael PA-C Unavailable [facility] Unavailable [phone] Encounter Details Date Type Department Care Team Description 04/10/2022 SCAN [facility] Medical [facility] Neurosurgery [place] 175 [facility] [address] [place] [phone] Tenisha Mendieta PA-C [address] [id number] Social History Tobacco Use Types Packs/Day Years Used Date Smoking Tobacco: Never Smokeless Tobacco: Never Alcohol Use Standard Drinks/Week Comments No 0 (1 standard drink = 0.6 oz pur e alcohol) Education Answer Date Recorded What is the highest level of school you have completed or the highest degree you have received? 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, RECONSTRUCTIVE SURGEON, CHANDRAKANT) 06/14/2020 Sex Assigned at Date Recorded [...] on filedocumented in this encounter Care Teams Under Cutter Relationship Specialty Start Date End Date Ora Ronquillo MD [address] [place] [address] PCP - General Internal Medicine 10/11/21 Jl Mendez MD [address] [place] [address] Dr [address] [place] [address] Specialist Cardiovascular Disease 10/13/21 Jannette Boudreaux MD [address] [address] Surgeon Neurosurgery 04/07/22 Tenisha Mendieta PA-C [address] [address] Specialist Neurosurgery 04/07/22 Julio Monk PA-C 175 [facility] [address] [place] [address] Specialist Neurosurgery 04/07/22 Luis Armando Eller MD [address] [address] Specialist ORTHOPEDIC SURGERY 10/01/23 Jayesh Pineda MD [address] [place] [address] Specialist Endocrinology 10/01/23 Kelsi Tejada MD 305 [place] [address] Specialist Allergy & Immunology 10/01/23 Pretty Le MD 175 [facility] [address] [place] [address] Specialist Pulmonology 10/01/23 Vesta Michael PA-C 300 [facility] 210 [place] [address] Specialist Vascular Surgery 10/01/23 [facility] 46 [place] [address] Specialist Optometry 10/01/23 documented as of this encounter
--- OUTSIDE RECORDS SUMMARY | 2024-07-30 10:29 | XMS_ITS | Encounter Summary ---
Author Organization [facility] Address [address] [place] [address] Care Team Providers Care Clay Worker Name Role Phone Shweta Tellez MD Primary Care Provider Ora Diaz MD Primary Care Prov ider Jl Mendez MD Unavailable Jannette Boudreaux MD Unavailable [phone] Tenisha Mendieta PA-C Unavailable [phone] Julio Monk PA-C Unavailable [phone] Luis Armando Eller MD Unavailable [phone] Jayesh Pineda MD Unavailable Kelsi Tejada MD Unavailable Unavailable Pretty Le MD Unavailable Vesta Michael PA-C Unavailable [phone] [facility] Unavailable [phone] Reason for Visit * Reason Onset Date Comments heartburn 08/31/2021 Encounter Details Date Type Department Care Team Description 08/31/2021 Telephone Adult Medicine [address] [phone] Shweta Tellez MD heartburn Social History Tobacco Use Types Packs/Day Years Used Date Smoking Tobacco: Never Smokeless Tobacco: Never Alcohol Use Standard Drinks/Week Comments No 0 (1 standard drink = 0.6 oz pur e alcohol) Education Answer Date Recorded What is the highest level of school you have completed or the highest degree you have received? 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, PRESS OPERATOR AUTOMATIC, CHANDRAKANT) 06/14/2020 Sex Assigned at [...] patient she was seen last weekend in [facility] [place] for [place]ERD. Was advised [...] traveled recently to another state outside of [place], [place], [place], [place], [place], [place], [place]? NO o If yes, did you [...] symptoms?: 1.5 weeks PCP: Shweta Tellez Payor: [employer] FFS / Plan: [place] / Product Type: MEDICAID RISK documented in this encounter Plan of Treatment Not on file documented as of this encounter Visit Diagnoses Not on filedocumented in this encounter Care Teams Clay Worker Relationship Specialty Start Date End Date Shweta Tellez MD PCP - General Internal Medicine 01/12/21 10/10/21 Ora Ronquillo MD [address] [place] [address] PCP - General Internal Medicine 10/11/21 Jl Mendez MD [address] [place] [address] [place] [address] Specialist Cardiovascular Disease 10/13/21 Jannette Boudreaux MD [address] [address] Surgeon Neurosurgery 04/07/22 Tenisha Mendieta PA-C [address] [address] Specialist Neurosurgery 04/07/22 Julio Monk PA-C [address] [address] Specialist Neurosurgery 04/07/22 Luis Armando Eller MD 175 [facility] [address] [place] [address] Specialist ORTHOPEDIC SURGERY 10/01/23 Jayesh Pineda MD 305 [place] [address] Specialist Endocrinology 10/01/23 Kelsi Tejada MD 305 [place] [address] Specialist Allergy & Immunology 10/01/23 Pretty Le MD 175 [facility] [address] [place] [address] Specialist Pulmonology 10/01/23 Vesta Michael PA-C 300 [facility] [address] [place] [address] Specialist Vascular Surgery 10/01/23 [facility] 46 [place] [address] Specialist Optometry 10/01/23 documented as of this encounter
--- OUTSIDE RECORDS SUMMARY | 2024-07-30 10:29 | XMS_ITS | Encounter Summary ---
Author Organization [facility] Address [address] [place] [address] Care Team Providers Care Nitroglycerin Separator Operator Name Role Phone Shweta eTllez MD Primary Care Provider Ora Diaz MD Primary Care Prov ider Jl Mendez MD Unavailable [phone] Jannette Boudreaux MD Unavailable [phone] Tenisha Mendieta PA-C Unavailable [phone] Julio Monk PA-C Unavailable Luis Armando Eller MD Unavailable [phone] Jayesh Pineda MD Unavailable Kelsi Tejada MD Unavailable Unavailable Pretty Le MD Unavailable Vesta Michael PA-C Unavailable [phone] [facility] Unavailable [phone] Encounter Details Date Type Department Care Team Description 09/09/2021 Hospital Medical Records [address] [place] [address] [facility] Social [...] 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, ESTIMATOR, CHANDRAKANT) 06/14/2020 Sex Assigned at Date Recorded [...] on filedocumented in this encounter Care Teams Nitroglycerin Separator Operator Relationship Specialty Start Date End Date Shweta Tellez MD PCP - General Internal Medicine 01/12/21 10/10/21 Ora Ronquillo MD [address] [place] [address] PCP - General Internal Medicine 10/11/21 Jl Mendez MD [address] [place] [address] [place] [address] Specialist Cardiovascular Disease 10/13/21 Jannette Boudreaux MD [address] [address] Surgeon Neurosurgery 04/07/22 Tenisha Mendieta PA-C 175 [facility] 300 [place] [address] Specialist Neurosurgery 04/07/22 Julio Monk PA-C 175 [facility] 300 [place] [address] Specialist Neurosurgery 04/07/22 Luis Armando Eller MD 175 [facility] 250 [place] [address] Specialist ORTHOPEDIC SURGERY 10/01/23 Jayesh Pineda MD 305 [place] [address] Specialist Endocrinology 10/01/23 Kelsi Tejada MD 305 [place] [address] Specialist Allergy & Immunology 10/01/23 Pretty Le MD 175 [facility] 200 [place] [address] Specialist Pulmonology 10/01/23 Vesta Michael PA-C 300 [facility] 210 [place] [address] Specialist Vascular Surgery 10/01/23 [facility] 46 [place] [address] Specialist Optometry 10/01/23 documented as of this encounter
--- OUTSIDE RECORDS SUMMARY | 2024-07-30 10:29 | XMS_ITS | Encounter Summary ---
Author Organization [facility] Address [address] [place] [address] Care Team Providers Care Anodic Treater Name Role Phone Teressa Solis DO Primary Care Pro vider Unavailable Mina Pretty DO Primary Care Provider Shweta Cronin MD Primary Care Provider Ora Diaz MD Primary Care Prov ider Jl Mendez MD Unavailable Jannette Boudreaux MD Unavailable [phone] Tenisha Mendieta PA-C Unavailable Julio Monk PA-C Unavailable Luis Armando Eller MD Unavailable [phone] Jayesh Pineda MD Unavailable Kelsi Tejada MD Unavailable Unavailable Pretty Le MD Unavailable Vesta Michael PA-C Unavailable [phone] [facility] Unavailable [phone] Encounter Details Date Type Department Care Team Description 07/25/2019 Hospital Medical Records 4 [place] [address] [facility] Social History Tobacco Use Types Packs/Day Years Used Date Smoking Tobacco: Never Smokeless Tobacco: Never Alcohol Use Standard Drinks/Week Comments No 0 (1 standard drink = 0.6 oz pur e alcohol) Education Answer Date Recorded What is the highest level of school you have completed or the highest degree you have received? 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, SOLE TIER, CHANDRAKANT) 06/14/2020 Sex Assigned at Date Recorded Female 08/03/2020 10:16 PM EDT Job Start Date Occupation Industry Not on file Not on file Not on file documented as of this encounter Plan of Treatment Not on file documented as of this encounter Visit Diagnoses Not on filedocumented in this encounter Care Teams Anodic Treater Relationship Specialty Start Date End Date Teressa Solis, PCP - General Internal Medicine 12/18/13 09/15/20 Mina Pretty DO PCP - General Internal Medicine 09/16/20 Shweta Boucher MD PCP - General Internal Medicine 01/12/21 10/10/21 Ora Ronquillo MD [address] [place] [address] PCP - General Internal Medicine 10/11/21 Jl Mendez MD [address] [place] [address] Dr Mont[address] [place] [address] Specialist Cardiovascular Disease 10/13/21 Jannette Boudreaux MD [address] [address] Surgeon Neurosurgery 04/07/22 Tenisha Mendieta PA-C [address] [address] Specialist Neurosurgery 04/07/22 Julio Monk PA-C 175 [facility] [address] [place] [address] Specialist Neurosurgery 04/07/22 Luis Armando Eller MD [address] [address] Specialist ORTHOPEDIC SURGERY 10/01/23 Jayesh Pineda MD [address] [place] [address] Specialist Endocrinology 10/01/23 Kelsi Tejada MD 305 [place] [address] Specialist Allergy & Immunology 10/01/23 Pretty Le MD 175 [facility] [address] [place] [address] Specialist Pulmonology 10/01/23 Vesta Michael PA-C 300 [facility] [address] [place] [address] Specialist Vascular Surgery 10/01/23 [facility] 46 [place], [place] [address] Specialist Optometry 10/01/23 documented as of this encounter
--- OUTSIDE RECORDS SUMMARY | 2024-07-30 10:29 | XMS_ITS | Encounter Summary ---
Author Organization [facility] Address [address] [place] [address] Care Team Providers Care Django Developer Name Role Phone Ora Ronquillo MD Primary Care Prov ider Jl Mendez MD Unavailable Jannette Boudreaux MD Unavailable [phone] Tenisha Mendieta PA-C Unavailable Julio Monk PA-C Unavailable [phone] Luis Armando Eller MD Unavailable [phone] Jayesh Pineda MD Unavailable Kelsi Tejada MD Unavailable Unavailable Pretty Le MD Unavailable Vesta Michael PA-C Unavailable [phone] [facility] Unavailable [phone] Encounter Details Date Type Department Care Team Description 07/03/2022 Refill Pulmonology - [place] 175 [facility] [address] [place] [phone] Michael Saldana MD Social History Tobacco Use Types Packs/Day Years Used Date Smoking Tobacco: Never Smokeless Tobacco: Never Alcohol Use Standard Drinks/Week Comments No 0 (1 standard drink = 0.6 oz pur e alcohol) Education Answer Date Recorded What is the highest level of school you have completed or the highest degree you have received? 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, AUDIO VIDEO TECHNICIAN, CHANDRAKANT) 06/14/2020 Sex Assigned at Date [...] complicated documented in this encounter Care Teams Django Developer Relationship Specialty Start Date End Date Ora Ronquillo MD [address] [place] [address] PCP - General Internal Medicine 10/11/21 Jl Mendez MD [address] [place] [address] Dr Mont[address] [place] [address] Specialist Cardiovascular Disease 10/13/21 Jannette Boudreaux MD [address] [address] Surgeon Neurosurgery 04/07/22 Tenisha Mendieta PA-C [address] [place] [address] [address] Specialist Neurosurgery 04/07/22 Julio Monk PA-C 175 [facility] [address] [place] [address] Specialist Neurosurgery 04/07/22 Luis Armando Eller MD [address] [address] Specialist ORTHOPEDIC SURGERY 10/01/23 Jayesh Pineda MD 305 [place] [address] Specialist Endocrinology 10/01/23 Kelsi Tejada MD 305 [place] [address] Specialist Allergy & Immunology 10/01/23 Pretty Le MD 175 [facility] [address] [place] [address] Specialist Pulmonology 10/01/23 Vesta Michael PA-C 300 [facility] [address] [place] [address] Specialist Vascular Surgery 10/01/23 [facility] 46 [place] [address] Specialist Optometry 10/01/23 documented as of this encounter
--- OUTSIDE RECORDS SUMMARY | 2024-07-30 10:29 | XMS_ITS | Encounter Summary ---
Author Organization [facility] Address [address] [place] [address] Care Team Providers Care Corporate Training Manager Name Role Phone Teressa Solis DO Primary Care Pro vider Unavailable Mina Pretty DO Primary Care Provider Shweta Cronin MD Primary Care Provider Ora Diaz MD Primary Care Prov ider Jl Mendez MD Unavailable Jannette Boudreaux MD Unavailable [phone] Tenisha Mendieta PA-C Unavailable [phone] Julio Monk PA-C Unavailable Luis Armando lEler MD Unavailable [phone] Jayesh Pineda MD Unavailable Kelsi Tejada MD Unavailable Unavailable Pretty Le MD Unavailable Vesta Michael PA-C Unavailable [facility] Unavailable Reason for Visit * Reason Comments E-prescribe Rx Request Encounter Details Date Type Department Care Team Description 05/10/2019 Refill Adult Medicine [address] [id number] Teressa Solis DO E-prescribe Rx Request Social [...] N/A Patients current insurance carrier is: Payor: [employer] FFS / Plan: [employer] / Product Type: MEDICAID RISK documented in this encounter Plan of Treatment Not on file documented as of this encounter Visit Diagnoses Not on filedocumented in this encounter Care Teams Corporate Training Manager Relationship Specialty Start Date End Date Teressa Solis DO PCP - General Internal Medicine 12/18/13 09/15/20 Mina Pretty DO PCP - General Internal Medicine 09/16/20 Shweta Boucher MD PCP - General Internal Medicine 01/12/21 10/10/21 Ora Ronquillo MD 444 [place] [address] PCP - General Internal Medicine 10/11/21 Jl Mendez MD [address] [place] [address] Dr [address] [place] [address] Specialist Cardiovascular Disease 10/13/21 Jannette Boudreaux MD [address] [address] Surgeon Neurosurgery 04/07/22 Tenisha Mendieta PA-C [address] [address] Specialist Neurosurgery 04/07/22 Julio Monk PA-C [address] [address] Specialist Neurosurgery 04/07/22 Luis Armando Eller MD [address] [address] Specialist ORTHOPEDIC SURGERY 10/01/23 Jayesh Pineda MD 305 [place] [address] Specialist Endocrinology 10/01/23 Kelsi Tejada MD 305 [place] [address] Specialist Allergy & Immunology 10/01/23 Pretty Le MD 175 [facility] [address] [place] [address] Specialist Pulmonology 10/01/23 Vesta Michael PA-C 300 [facility] 210 [place] [address] Specialist Vascular Surgery 10/01/23 [facility] 46 [place], [place] [address] Specialist Optometry 10/01/23 documented as of this encounter
--- OUTSIDE RECORDS SUMMARY | 2024-07-30 10:29 | XMS_ITS | Encounter Summary ---
Author Organization [facility] Address [address] [place] [address] Care Team Providers Care Computer Programming Manager Name Role Phone Teressa Solis DO Primary Care Pro vider Unavailable Mina Pretty DO Primary Care Provider Shweta Cronin MD Primary Care Provider Ora Diaz MD Primary Care Prov ider Jl Mendez MD Unavailable [phone] Jannette Boudreaux MD Unavailable [phone] Tenisha Mendieta PA-C Unavailable Julio Monk PA-C Unavailable [phone] Luis Armando Eller MD Unavailable [phone] Jayesh Pineda MD Unavailable Kelsi Tejada MD Unavailable Unavailable Pretty Le MD Unavailable Vesta Michael PA-C Unavailable [phone] [facility] Unavailable Encounter Details Date Type Department Care Team Description 05/04/2015 Gill Net Stringer Report Medical Records 4 [place] [address] Jeff Ogden MD Social History Tobacco Use [...] filedocumented in this encounter Care Teams Computer Programming Manager Relationship Specialty Start Date End Date Teressa Solis DO PCP - General Internal Medicine 12/18/13 09/15/20 Mina Pretty DO PCP - General Internal Medicine 09/16/20 Shweta Boucher MD PCP - General Internal Medicine 01/12/21 10/10/21 Ora Ronquillo MD [address] [place] [address] PCP - General Internal Medicine 10/11/21 Jl Mendez MD [address] [place] [address] Specialist Cardiovascular Disease 10/13/21 Jannette Boudreaux MD [address] [address] Surgeon Neurosurgery 04/07/22 Tenisha Mendieta PA-C [address] [address] Specialist Neurosurgery 04/07/22 Julio Monk PA-C [address] [address] Specialist Neurosurgery 04/07/22 Luis Armando Eller MD [address] [address] Specialist ORTHOPEDIC SURGERY 10/01/23 Jayesh Pineda MD 305 [place] [address] Specialist Endocrinology 10/01/23 Kelsi Tejada MD 305 [place] [address] Specialist Allergy & Immunology 10/01/23 Pretty Le MD 175 [facility] [address] [place] [address] Specialist Pulmonology 10/01/23 Vesta Michael PA-C 300 [facility] 210 [place] [address] Specialist Vascular Surgery 10/01/23 [facility] [address] [place] [address] Specialist Optometry 10/01/23 documented as of this encounter
--- OUTSIDE RECORDS SUMMARY | 2024-07-30 10:29 | XMS_ITS | Encounter Summary ---
Author Organization [facility] Address [address] [place] [address] Care Team Providers Care Transportation Dispatcher Name Role Phone Ora Ronquillo MD Primary Care Prov ider Jl Mendez MD Unavailable [phone] Jannette Boudreaux MD Unavailable [phone] Tenisha Mendieta PA-C Unavailable [phone] Julio Monk PA-C Unavailable Luis Armando Eller MD Unavailable [phone] Jayesh Pineda MD Unavailable Kelsi Tejada MD Unavailable Unavailable Pretty Le MD Unavailable Vesta Michael PA-C Unavailable [facility] Unavailable Encounter Details Date Type Department Care Team Description 01/01/2024 Refill Pulmonology - [place] [address] [phone] Pretty Le MD [address] [address] Social History Tobacco Use Types Packs/Day Years Used Date Smoking Tobacco: Never Smokeless Tobacco: Never Alcohol Use Standard Drinks/Week Comments No 0 (1 standard drink = 0.6 oz pur e alcohol) Education Answer Date Recorded What is the highest level of school you have completed or the highest degree you have received? 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, SYRUP SHED SUPERVISOR, CHANDRAKANT) 06/14/2020 Sex Assigned at Date [...] (pediatric) documented in this encounter Care Teams Transportation Dispatcher Relationship Specialty Start Date End Date Ora Ronquillo MD 4 [place] [address] PCP - General Internal Medicine 10/11/21 Jl Mendez MD [address] [place] [address] Dr Mont[address] [place] [address] Specialist Cardiovascular Disease 10/13/21 Jannette Boudreaux MD [address] [address] Surgeon Neurosurgery 04/07/22 Tenisha Mendieta PA-C [address] [address] Specialist Neurosurgery 04/07/22 Julio Monk PA-C [address] [address] Specialist Neurosurgery 04/07/22 Luis Armando Eller MD [address] [address] Specialist ORTHOPEDIC SURGERY 10/01/23 Jayesh Pineda MD 305 [place] [address] Specialist Endocrinology 10/01/23 Kelsi Tejada MD 305 [place] [address] Specialist Allergy & Immunology 10/01/23 Pretty Le MD 175 [facility] [address] [place] [address] Specialist Pulmonology 10/01/23 Vesta Michael PA-C 300 [facility] 210 [place] [address] Specialist Vascular Surgery 10/01/23 [facility] 46 [place] [address] Specialist Optometry 10/01/23 documented as of this encounter
--- OUTSIDE RECORDS SUMMARY | 2024-07-30 10:29 | XMS_ITS | Encounter Summary ---
Author Organization [facility] Address [address] [place] [address] Care Team Providers Care Furnace Builder Name Role Phone Teressa Solis DO Primary Care Pro vider Unavailable Mina Pretty DO Primary Care Provider Shweta Cronin MD Primary Care Provider Ora Diaz MD Primary Care Prov ider Jl Mendez MD Unavailable Jannette Boudreaux MD Unavailable [phone] Tenisha Mendieta PA-C Unavailable [phone] Julio Monk PA-C Unavailable Luis Armando Eller MD Unavailable [phone] Jayesh Pineda MD Unavailable Kelsi Tejada MD Unavailable Unavailable Pretty Le MD Unavailable Vesta Michael PA-C Unavailable [facility] Unavailable Reason for Visit * Reason Comments E-prescribe Rx Request Encounter Details Date Type Department Care Team Description 05/06/2020 Refill Medicine/Pediatrics - [address] [id number] Teressa Solis DO E-prescribe Rx Request Social [...] N/A Patients current insurance carrier is: Payor: [employer] / Plan: [employer] / Product Type: MEDICAID RISK documented in this encounter Plan of Treatment Not on file documented as of this encounter Visit Diagnoses Not on filedocumented in this encounter Care Teams Furnace Builder Relationship Specialty Start Date End Date Teressa Solis DO PCP - General Internal Medicine 12/18/13 09/15/20 Mina Pretty DO PCP - General Internal Medicine 09/16/20 Shweta Boucher MD PCP - General Internal Medicine 01/12/21 10/10/21 Ora Ronquillo MD [address] [place] [address] PCP - General Internal Medicine 10/11/21 Jl Mendez MD [address] [place] [address] Dr Montiel [address] [place] [address] Specialist Cardiovascular Disease 10/13/21 Jannette Boudreaux MD [address] [address] Surgeon Neurosurgery 04/07/22 Tenisha Mendieta PA-C [address] [address] Specialist Neurosurgery 04/07/22 Julio Monk PA-C 175 [facility] [address] [place] [address] Specialist Neurosurgery 04/07/22 Luis Armando Eller MD [address] [address] Specialist ORTHOPEDIC SURGERY 10/01/23 Jayesh Pineda MD 305 [place] [address] Specialist Endocrinology 10/01/23 Kelsi Tejada MD 305 [place] [address] Specialist Allergy & Immunology 10/01/23 Pretty Le MD 175 [facility] [address] [place] [address] Specialist Pulmonology 10/01/23 Vesta Michael PA-C 300 [facility] 210 [place] [address] Specialist Vascular Surgery 10/01/23 [facility] 46 [place] [address] Specialist Optometry 10/01/23 documented as of this encounter
--- OUTSIDE RECORDS SUMMARY | 2024-07-30 10:30 | XMS_ITS | Encounter Summary ---
Author Organization [facility] Address [address] [place] [address] Care Team Providers Care Spring Former Name Role Phone Teressa Solis DO Primary Care Pro vider Unavailable Mina Pretty DO Primary Care Provider Ailyn Shweta Pretty MD Primary Care Provider UnaOra Randall MD Primary Care Prov ider Jl Mendez MD Unavailable Jannette Boudreaux MD Unavailable [phone] Tenisha Mendieta PA-C Unavailable Julio Monk PA-C Unavailable Luis Armando Eller MD Unavailable [phone] Jayesh Pineda MD Unavailable Kelsi Tejada MD Unavailable Unavailable Pretty Le MD Unavailable Vesta Michael PA-C Unavailable [phone] [facility] Unavailable [phone] Encounter Details Date Type Department Care Team Description 03/25/2020 Telephone Adult [address] [address] Deborah Addison PA-C Social History [...] on filedocumented in this encounter Care Teams Spring Former Relationship Specialty Start Date End Date Teressa Solis DO PCP - General Internal Medicine 12/18/13 09/15/20 Mina Pretty DO PCP - General Internal Medicine 09/16/20 Shweta Boucher MD PCP - General Internal Medicine 01/12/21 10/10/21 Ora Ronquillo MD 444 [place] [address] PCP - General Internal Medicine 10/11/21 Jl Mendez MD [address] [place] [address] Dr Montiel [address] [place] [address] Specialist Cardiovascular Disease 10/13/21 Jannette Boudreaux MD [address] [address] Surgeon Neurosurgery 04/07/22 Tenisha Mendieta PA-C [address] [address] Specialist Neurosurgery 04/07/22 Julio Monk PA-C 175 [facility] [address] [place] [address] Specialist Neurosurgery 04/07/22 Luis Armando Eller MD [address] [address] Specialist ORTHOPEDIC SURGERY 10/01/23 Jayesh Pineda MD 305 [place] [address] Specialist Endocrinology 10/01/23 Kelsi Tejada MD 305 [place] [address] Specialist Allergy & Immunology 10/01/23 Pretty Le MD 175 [facility] [address] [place] [address] Specialist Pulmonology 10/01/23 Vesta Michael PA-C 300 [facility] 210 [place] [address] Specialist Vascular Surgery 10/01/23 [facility] 46 [place] [address] Specialist Optometry 10/01/23 documented as of this encounter
--- OUTSIDE RECORDS SUMMARY | 2024-07-30 10:30 | XMS_ITS | Encounter Summary ---
Author Organization [facility] Address [address] [place] [address] Care Team Providers Care Vice President Regulatory Name Role Phone Ora Ronquillo MD Primary Care Prov ider Jl Mendez MD Unavailable Jannette Boudreaux MD Unavailable [phone] Tenisha Mendieta PA-C Unavailable Julio MonkC Unavailable Luis Armando Eller MD Unavailable [phone] Jayesh Pineda MD Unavailable Kelsi Tejada MD Unavailable Unavailable Pretty Le MD Unavailable Vesta Michael PA-Pina Unavailable [phone] [facility] Unavailable [phone] Encounter Details Date Type Department Care Team Description 01/30/2022 Batch Still Operator Report Medical Records 4 [place] [address] Kelsi Tejada MD Social History Tobacco Use Types Packs/Day Years Used Date Smoking Tobacco: Never Smokeless Tobacco: Never Alcohol Use Standard Drinks/Week Comments No 0 (1 standard drink = 0.6 oz pur e alcohol) Education Answer Date Recorded What is the highest level of school you have completed or the highest degree you have received? 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, HIGH PRESSURE KETTLE OPERATOR, CHANDRAKANT) 06/14/2020 Sex Assigned at Date Recorded Female 08/03/2020 10:16 PM EDT Job Start Date Occupation Industry Not on file Not on file Not on file documented as of this encounter Plan of Treatment Not on file documented as of this encounter Visit Diagnoses Not on filedocumented in this encounter Care Teams Vice President Regulatory Relationship Specialty Start Date End Date Ora Ronquillo MD [address] [place] [address] PCP - General Internal Medicine 10/11/21 Jl Mendez MD [address] [place] [address] Dr Mont[address] [place] [address] Specialist Cardiovascular Disease 10/13/21 Jannette Boudreaux MD [address] [address] Surgeon Neurosurgery 04/07/22 Tenisha Mendieta PA-C 175 [facility] 300 [place] [address] Specialist Neurosurgery 04/07/22 Julio Monk PA-C 175 [facility] 300 [place] [address] Specialist Neurosurgery 04/07/22 Luis Armando Eller MD 175 [facility] 250 [place] [address] Specialist ORTHOPEDIC SURGERY 10/01/23 Jayesh Pineda MD 305 [place] [address] Specialist Endocrinology 10/01/23 Kelsi Tejada MD 305 [place] [address] Specialist Allergy & Immunology 10/01/23 Pretty Le MD 175 [facility] 200 [place] [address] Specialist Pulmonology 10/01/23 Vesta Michael PA-C 300 [facility] 210 [place] [address] Specialist Vascular Surgery 10/01/23 [facility] 46 [place] [address] Specialist Optometry 10/01/23 documented as of this encounter
--- OUTSIDE RECORDS SUMMARY | 2024-07-30 10:30 | XMS_ITS | Encounter Summary ---
Author Organization [facility] Address [address] [place] [address] Care Team Providers Care Activities Leader Name Role Phone Teressa Solis DO Primary Care Pro vider Unavailable Mina Pretty DO Primary Care Provider Shweta Cronin MD Primary Care Provider Ora Diaz MD Primary Care Prov ider Jl Mendez MD Unavailable Jannette Boudreaux MD Unavailable [phone] Tenisha Mendieta PA-C Unavailable Julio Monk PA-C Unavailable Luis Armando Eller MD Unavailable [phone] Jayesh Pineda MD Unavailable Kelsi Tejada MD Unavailable Unavailable Pretty Le MD Unavailable Vesta Michael PA-C Unavailable [phone] [facility] Unavailable Encounter Details Date Type Department Care Team Description 08/25/2019 Orders Only Adult Medicine [address] [address] Teressa Solis DO Social History [...] on filedocumented in this encounter Care Teams Activities Leader Relationship Specialty Start Date End Date Teressa Solis DO PCP - General Internal Medicine 12/18/13 09/15/20 Mina Pretty DO PCP - General Internal Medicine 09/16/20 1 Shweta Tellez MD PCP - General Internal Medicine 01/12/21 10/10/21 Hiwot Couch, Ora Kelly MD [address] [place] [address] PCP - General Internal Medicine 10/11/21 Jl Mendez MD [address] [place] [address] Dr Montiel [address] [place] [address] Specialist Cardiovascular Disease 10/13/21 Jannette Boudreaux MD [address] [address] Surgeon Neurosurgery 04/07/22 Tenisha Mendieta PA-C [address] [address] Specialist Neurosurgery 04/07/22 Julio Monk PA-C 175 [facility] [address] [place] [address] Specialist Neurosurgery 04/07/22 Luis Armando Eller MD [address] [address] Specialist ORTHOPEDIC SURGERY 10/01/23 Jayesh Pineda MD 305 [place] [address] Specialist Endocrinology 10/01/23 Kelsi Tejada MD 305 [place] [address] Specialist Allergy & Immunology 10/01/23 Pretty Le MD 175 [facility] [address] [place] [address] Specialist Pulmonology 10/01/23 Vesta Michael PA-C 300 [facility] [address] [place] [address] Specialist Vascular Surgery 10/01/23 [facility] 46 [place] [address] Specialist Optometry 10/01/23 documented as of this encounter
--- OUTSIDE RECORDS SUMMARY | 2024-07-30 10:30 | XMS_ITS | Encounter Summary ---
Author Organization [facility] Address [address] [place] [address] Care Team Providers Care Axle Inspector Name Role Phone Teressa Solis DO Primary Care Pro vider Unavailable Mina Pretty DO Primary Care Provider Ailyn Shweta Pretty MD Primary Care Provider Ora Diaz MD Primary Care Prov ider Jl Mendez MD Unavailable [phone] Jannette Boudreaux MD Unavailable [phone] Tenisha Mendieta PA-C Unavailable [phone] Julio Monk PA-C Unavailable Luis Armando Eller MD Unavailable [phone] Jayesh Pineda MD Unavailable Kelsi Tejada MD Unavailable Unavailable Pretty Le MD Unavailable Vesta Michael PA-C Unavailable [facility] Unavailable Encounter Details Date Type Department Care Team Description 10/09/2019 Webfed Offset Press Operator Report Medical Records [address] [place] [address] Bill Wills MD Social History Tobacco Use [...] on filedocumented in this encounter Care Teams Axle Inspector Relationship Specialty Start Date End Date Teressa Solis DO PCP - General Internal Medicine 12/18/13 09/15/20 Mina Pretty DO PCP - General Internal Medicine 09/16/20 Shweta Boucher MD PCP - General Internal Medicine 01/12/21 10/10/21 Ora Ronquillo MD [address] [place] [address] PCP - General Internal Medicine 10/11/21 Jl Mendez MD [address] [place] [address] Specialist Cardiovascular Disease 10/13/21 Jannette Boudreaux MD [address] [address] Surgeon Neurosurgery 04/07/22 Tenisha Mendieta PA-C [address] [address] Specialist Neurosurgery 04/07/22 Julio Monk PA-C [address] [address] Specialist Neurosurgery 04/07/22 Luis Armando Eller MD [address] [address] Specialist ORTHOPEDIC SURGERY 10/01/23 Jayesh Pineda MD 305 [place] [address] Specialist Endocrinology 10/01/23 Kelsi Tejada MD 305 [place] [address] Specialist Allergy & Immunology 10/01/23 Pretty Le MD 175 [facility] [address] [place] [address] Specialist Pulmonology 10/01/23 Vesta Michael PA-C 300 [facility] [address] [place] [address] Specialist Vascular Surgery 10/01/23 [facility] 46 [place] [address] Specialist Optometry 10/01/23 documented as of this encounter
--- OUTSIDE RECORDS SUMMARY | 2024-07-30 10:30 | XMS_ITS | Encounter Summary ---
Author Organization [facility] Address [address] [place] [address] Care Team Providers Care Steam Turbine Assembler Name Role Phone Teressa Solis DO Primary Care Pro vider Unavailable Mina Pretty DO Primary Care Provider Shweta Cronin MD Primary Care Provider Ora Diaz MD Primary Care Prov ider Jl Mendez MD Unavailable [phone] Jannette Boudreaux MD Unavailable [phone] Tenisha Mendieta PA-C Unavailable [phone] Julio Monk PA-C Unavailable [phone] Luis Armando Eller MD Unavailable [phone] Jayesh Pineda MD Unavailable Kelsi Tejada MD Unavailable Unavailable Pretty Le MD Unavailable Vesta Michael PA-C Unavailable [phone] Unavailable Encounter Details Date Type Department Care Team Description 04/07/2020 Cutter In Report Medical Records 4 [place] [address] [facility] Social History Tobacco Use Types Packs/Day [...] on filedocumented in this encounter Care Teams Steam Turbine Assembler Relationship Specialty Start Date End Date Teressa Solis DO PCP - General Internal Medicine 12/18/13 09/15/20 Mina Pretty DO PCP - General Internal Medicine 09/16/20 Shweta Boucher MD PCP - General Internal Medicine 01/12/21 10/10/21 Ora Ronquillo MD [address] [place] [address] PCP - General Internal Medicine 10/11/21 Jl Mendez MD [address] [place] [address] Dr Mont[address] [place] [address] Specialist Cardiovascular Disease 10/13/21 Jannette Boudreaux MD [address] [address] Surgeon Neurosurgery 04/07/22 Tenisha Mendieta PA-C [address] [address] Specialist Neurosurgery 04/07/22 Julio Monk PA-C 175 [facility] [address] [place] [address] Specialist Neurosurgery 04/07/22 Luis Armando Eller MD [address] [address] Specialist ORTHOPEDIC SURGERY 10/01/23 Jayesh Pineda MD [address] [place] [address] Specialist Endocrinology 10/01/23 Kelsi Tejada MD 305 [place] [address] Specialist Allergy & Immunology 10/01/23 Pretty Le MD 175 [facility] [address] [place] [address] Specialist Pulmonology 10/01/23 Vesta Michael PA-C 300 [facility] [address] [place] [address] Specialist Vascular Surgery 10/01/23 [facility] 46 [place], [place] [address] Specialist Optometry 10/01/23 documented as of this encounter
--- OUTSIDE RECORDS SUMMARY | 2024-07-30 10:30 | XMS_ITS | Encounter Summary ---
Author Organization [facility] Address [address] [place] [address] Care Team Providers Care Patient Resource Coordinator Name Role Phone Teressa Solis DO Primary Care Pro vider Unavailable Mina Pretty DO Primary Care Provider Shweta Cronin MD Primary Care Provider Ora Diaz MD Primary Care Prov ider Jl Mendez MD Unavailable [phone] Jannette Boudreaux MD Unavailable [phone] Tenisha Mendieta PA-C Unavailable Julio Monk PA-C Unavailable [phone] Luis Armando Eller MD Unavailable [phone] Jayesh Pineda MD Unavailable Kelsi Tejada MD Unavailable Unavailable Pretty Le MD Unavailable Vesta Michael PA-C Unavailable [facility] Unavailable [phone] Reason for Visit * Reason Onset Date Comments Mychart Rx Refill 11/14/2019 Encounter Details Date Type Department Care Team Description 11/14/2019 Refill Adult Medicine [address] [address] Teressa Solis DO Mychart Rx Refill Social [...] filedocumented in this encounter Care Teams Patient Resource Coordinator Relationship Specialty Start Date End Date Teressa Solis DO PCP - General Internal Medicine 12/18/13 09/15/20 Mina Pretty DO PCP - General Internal Medicine 09/16/20 1 Shweta Tellez MD PCP - General Internal Medicine 01/12/21 10/10/21 Ora Ronquillo MD [address] [place] [address] PCP - General Internal Medicine 10/11/21 Jl Mendez MD [address] [place] [address] [place] [address] Specialist Cardiovascular Disease 10/13/21 Jannette Boudreaux MD [address] [address] Surgeon Neurosurgery 04/07/22 Tenisha Mendieta PA-C 175 [address] [place] [address] Specialist Neurosurgery 04/07/22 Julio Monk PA-C 175 [facility] 300 [place] [address] Specialist Neurosurgery 04/07/22 Luis Armando Eller MD 175 [facility] 250 [place] [address] Specialist ORTHOPEDIC SURGERY 10/01/23 Jayesh Pineda MD 305 [place] [address] Specialist Endocrinology 10/01/23 Kelsi Tejada MD 305 [place] [address] Specialist Allergy & Immunology 10/01/23 Pretty Le MD 175 [facility] 200 [place] [address] Specialist Pulmonology 10/01/23 Vesta Michael PA-C 300 [facility] 210 [place] [address] Specialist Vascular Surgery 10/01/23 [facility] 46 [place] [address] Specialist Optometry 10/01/23 documented as of this encounter
--- OUTSIDE RECORDS SUMMARY | 2024-07-30 10:30 | XMS_ITS | Encounter Summary ---
Author Organization [facility] Address [address] [place] [address] Care Team Providers Care Coroner Name Role Phone Teressa Solis DO Primary Care Pro vider Unavailable Mina Pretty DO Primary Care Provider Shweta Cronin MD Primary Care Provider Ora Diaz MD Primary Care Prov ider Jl Mendez MD Unavailable Jannette Boudreaux MD Unavailable [phone] Tenisha Mendieta PA-C Unavailable Julio Monk PA-C Unavailable Luis Armando Eller MD Unavailable [phone] Jayesh Pineda MD Unavailable Kelsi Tejada MD Unavailable Unavailable Pretty Le MD Unavailable Vesta Michael PA-C Unavailable [facility] Unavailable Encounter Details Date Type Department Care Team Description 02/06/2017 Foreclosure Clerk Report Medical Records 4 [place] [address] Jeff Ogden MD Social History Tobacco Use [...] on filedocumented in this encounter Care Teams Coroner Relationship Specialty Start Date End Date Teressa Solis DO PCP - General Internal Medicine 12/18/13 09/15/20 Mina Pretty DO PCP - General Internal Medicine 09/16/20 Shweta Boucher MD PCP - General Internal Medicine 01/12/21 10/10/21 Ora Ronquillo MD [address] [place] [address] PCP - General Internal Medicine 10/11/21 Jl Mendez MD [address] [place] [address] Specialist Cardiovascular Disease 10/13/21 Jannette Boudreaux MD [address] [address] Surgeon Neurosurgery 04/07/22 Tenisha Mendieta PA-C [address] [address] Specialist Neurosurgery 04/07/22 Julio Monk PA-C [address] [address] Specialist Neurosurgery 04/07/22 Luis Armando Eller MD [address] [address] Specialist ORTHOPEDIC SURGERY 10/01/23 Jayesh Pineda MD 305 [place] [address] Specialist Endocrinology 10/01/23 Kelsi Tejada MD 305 [place] [address] Specialist Allergy & Immunology 10/01/23 Pretty Le MD 175 [facility] [address] [place] [address] Specialist Pulmonology 10/01/23 Vesta Michael PA-C 300 [facility] 210 [place] [address] Specialist Vascular Surgery 10/01/23 [facility] 46 [place] [address] Specialist Optometry 10/01/23 documented as of this encounter
--- OUTSIDE RECORDS SUMMARY | 2024-07-30 10:30 | XMS_ITS | Encounter Summary ---
Author Organization [facility] Address [address] [place] [address] Care Team Providers Care Mercury Cracking Tester Name Role Phone Teressa Solis DO Primary Care Pro vider Unavailable Mina Pretty DO Primary Care Provider Shweta Cronin MD Primary Care Provider Ora Diaz MD Primary Care Prov ider Jl Mendez MD Unavailable Jannette Boudreaux MD Unavailable [phone] Tenisha Mendieta PA-C Unavailable Julio Monk PA-C Unavailable Luis Armando Eller MD Unavailable [phone] Jayesh Pineda MD Unavailable Kelsi Tejada MD Unavailable Unavailable Pretty Le MD Unavailable Vesta Michael PA-C Unavailable [phone] [facility] Unavailable Encounter Details Date Type Department Care Team Description 10/01/2019 Orders Only Medical Records [address] [place] [address] Irvin Ling MD 175 [facility] [address] [place], [place] [id number] Social History Tobacco Use Types Packs/Day Years [...] on filedocumented in this encounter Care Teams Mercury Cracking Tester Relationship Specialty Start Date End Date Teressa Solis, PCP - General Internal Medicine 12/18/13 09/15/20 Mina Pretty DO PCP - General Internal Medicine 09/16/20 Shweta Boucher MD PCP - General Internal Medicine 01/12/21 10/10/21 Ora Ronquillo MD [address] [place] [address] PCP - General Internal Medicine 10/11/21 Jl Mendez MD [address] [place] [address] Dr Montiel [address] [place] [address] Specialist Cardiovascular Disease 10/13/21 Jannette Boudreaux MD [address] [address] Surgeon Neurosurgery 04/07/22 Tenisha Mendieta PA-C [address] [address] Specialist Neurosurgery 04/07/22 Julio Monk PA-C [address] [address] Specialist Neurosurgery 04/07/22 Luis Armando Eller MD [address] [address] Specialist ORTHOPEDIC SURGERY 10/01/23 Jayesh Pineda MD 305 [place] [address] Specialist Endocrinology 10/01/23 Kelsi Tejada MD 305 [place] [address] Specialist Allergy & Immunology 10/01/23 Pretty Le MD 175 [facility] [address] [place] [address] Specialist Pulmonology 10/01/23 Vesta Michael PA-C 300 [facility] [address] [place] [address] Specialist Vascular Surgery 10/01/23 [facility] 46 [place] [address] Specialist Optometry 10/01/23 documented as of this encounter
--- OUTSIDE RECORDS SUMMARY | 2024-07-30 10:30 | XMS_ITS | Encounter Summary ---
Author Organization [facility] Address [address] [place] [address] Care Team Providers Care Senior Software Qa Engineer Name Role Phone Teressa Solis DO Primary Care Pro vider Unavailable Mina Pretty DO Primary Care Provider Ailyn Shweta Pretty MD Primary Care Provider UnaOra Randall MD Primary Care Prov ider Jl Mendez MD Unavailable Jannette Boudreaux MD Unavailable [phone] Tenisha Mendieta PA-C Unavailable [phone] Julio Monk PA-C Unavailable [phone] Luis Armando Eller MD Unavailable [phone] Jayesh Pineda MD Unavailable Kelsi Tejada MD Unavailable Unavailable Pretty Le MD Unavailable Vesta Michael PA-C Unavailable [phone] [facility] Unavailable [phone] Reason for Referral * (Priority) - Closed Specialty Diagnoses / Procedures Referred By Janie castillo Referred To Contact ORTHOPEDICS / Orthopedic Procedures REFERRAL TO ORTHOPEDICS (OUT OF NETWORK) Teressa Solis DO [address] [place] [address] External Orthopedics Referral ID Status Reason Start Date Expiration Date V isits Requested Visits Authorized SEE REVIEW ON 09/19/2019 Closed 09/18/2019 1 1 Reason for Visit * Reason Onset Date Comments REFERRAL 09/03/2019 Encounter Details Date Type Department Care Team Description 09/03/2019 Pt. Non Urgent Medic al Question Adult Medicine [address] [address] Teressa Solis DO Social History Tobacco Use [...] 2019 1:09 AM EDT Please clarfiy which [facility] Dr. Beatty is affiliated with * Sarah Farias M.A. - 09/04/2019 10:59 AM EDTFrom: Ana Luisa House To: Teressa Grace DO Sent: 09/03/2019 11:41 PM EDT Subject: Referral Hi, Dr. Ramos My daughter sister in law, wants me to be seen by her Dr. Sal Beatty in [place], [place]. He reconstructed her hip. She said [...] need to contact me, my phone is [phone]. Thanks for supporting in this. Ana Luisa documented in this encounter Plan of Treatment Not on file documented as of this encounter Visit Diagnoses Not on filedocumented in this encounter Care Teams Senior Software Qa Engineer Relationship Specialty Start Date End Date Teressa Solis DO PCP - General Internal Medicine 12/18/13 09/15/20 Mina Pretty DO PCP - General Internal Medicine 09/16/20 1 Shweta Tellez MD PCP - General Internal Medicine 01/12/21 10/10/21 Ora Ronquillo MD [address] [place] [address] PCP - General Internal Medicine 10/11/21 Jl Mendez MD [address] [place] [address] Dr Mont[address] [place] [address] Specialist Cardiovascular Disease 10/13/21 Jannette Boudreaux MD [address] [address] Surgeon Neurosurgery 04/07/22 Tenisha Mendieta PA-C [address] [address] Specialist Neurosurgery 04/07/22 Julio Monk PA-C [address] [address] Specialist Neurosurgery 04/07/22 Luis Armando Eller MD [address] [address] Specialist ORTHOPEDIC SURGERY 10/01/23 Jayesh Pineda MD 305 [place] [address] Specialist Endocrinology 10/01/23 Kelsi Tejada MD 305 [place] [address] Specialist Allergy & Immunology 10/01/23 Pretty Le MD 175 [facility] 200 [place] [address] Specialist Pulmonology 10/01/23 Vesta Michael PA-C 300 [facility] 210 [place] [address] Specialist Vascular Surgery 10/01/23 [facility] [address] [place] [address] Specialist Optometry 10/01/23 documented as of this encounter
--- OUTSIDE RECORDS SUMMARY | 2024-07-30 10:30 | XMS_ITS | Encounter Summary ---
Author Organization [facility] Address [address] [place] [address] Care Team Providers Care Child Care Attendant School Name Role Phone Teressa Solis DO Primary Care Pro vider Unavailable Mina Pretty DO Primary Care Provider Shweta Cronin MD Primary Care Provider Ora Diaz MD Primary Care Prov ider Jl Mendez MD Unavailable Jannette Boudreaux MD Unavailable [phone] Tenisha Mendieta PA-C Unavailable Julio Monk PA-C Unavailable [phone] Luis Armando Eller MD Unavailable [phone] Jayesh Pineda MD Unavailable Kelsi Tejada MD Unavailable Unavailable Pretty Le MD Unavailable Vesta Michael PA-C Unavailable [facility] Unavailable Encounter Details Date Type Department Care Team Description 03/01/2020 Doctor Of Podiatric Medicine Report Medical Records [address] [place] [address] Randy Domínguez MD Social History Tobacco Use [...] filedocumented in this encounter Care Teams Child Care Attendant School Relationship Specialty Start Date End Date Teressa Solis DO PCP - General Internal Medicine 12/18/13 09/15/20 Mina Pretty DO PCP - General Internal Medicine 09/16/20 Shweta Boucher MD PCP - General Internal Medicine 01/12/21 10/10/21 Ora Ronquillo MD [address] [place] [address] PCP - General Internal Medicine 10/11/21 Jl Mendez MD [address] [place] [address] Specialist Cardiovascular Disease 10/13/21 Jannette Boudreaux MD [address] [address] Surgeon Neurosurgery 04/07/22 Tenisha Mendieta PA-C [address] [address] Specialist Neurosurgery 04/07/22 Julio Monk PA-C [address] [address] Specialist Neurosurgery 04/07/22 Luis Armando Eller MD [address] [address] Specialist ORTHOPEDIC SURGERY 10/01/23 Jayesh Pineda MD 305 [place] [address] Specialist Endocrinology 10/01/23 Kelsi Tejada MD 305 [place] [address] Specialist Allergy & Immunology 10/01/23 Pretty Le MD 175 [facility] [address] [place] [address] Specialist Pulmonology 10/01/23 Vesta Michael PA-C 300 [facility] 210 [place] [address] Specialist Vascular Surgery 10/01/23 [facility] [address] [place] [address] Specialist Optometry 10/01/23 documented as of this encounter
--- OUTSIDE RECORDS SUMMARY | 2024-07-30 10:30 | XMS_ITS | Encounter Summary ---
Author Organization [facility] Address [address] [place] [address] Care Team Providers Care Podiatry Teacher Name Role Phone Teressa Solis DO Primary Care Pro vider Unavailable Mina Pretty DO Primary Care Provider Ailyn Shweta Pretty MD Primary Care Provider Ora Diaz MD Primary Care Prov ider Jl Mendez MD Unavailable [phone] Jannette Boudreaux MD Unavailable [phone] Tenisha Mendieta PA-C Unavailable Julio Monk PA-C Unavailable Luis Armando Eller MD Unavailable [phone] Jayesh Pineda MD Unavailable Kelsi Tejada MD Unavailable Unavailable Pretty Le MD Unavailable Vesta Michael PA-C Unavailable [facility] Unavailable Encounter Details Date Type Department Care Team Description 03/03/2020 Correctional Supervisor Report Medical Records [address] [place] [address] Meg Mc Social History Tobacco Use Types [...] on filedocumented in this encounter Care Teams Podiatry Teacher Relationship Specialty Start Date End Date Teressa Solis DO PCP - General Internal Medicine 12/18/13 09/15/20 Mina Pretty DO PCP - General Internal Medicine 09/16/20 Shweta Boucher MD PCP - General Internal Medicine 01/12/21 10/10/21 Ora Ronquillo MD [address] [place] [address] PCP - General Internal Medicine 10/11/21 Jl Mendez MD [address] [place] [address] Specialist Cardiovascular Disease 10/13/21 Jannette Boudreaux MD [address] [address] Surgeon Neurosurgery 04/07/22 Tenisha Mendieta PA-C [address] [address] Specialist Neurosurgery 04/07/22 Julio Monk PA-C [address] [address] Specialist Neurosurgery 04/07/22 Luis Amrando Eller MD [address] [address] Specialist ORTHOPEDIC SURGERY 10/01/23 Jayesh Pineda MD 305 [place] [address] Specialist Endocrinology 10/01/23 Kelsi Tejada MD 305 [place] [address] Specialist Allergy & Immunology 10/01/23 Pretty Le MD 175 [facility] [address] [place] [address] Specialist Pulmonology 10/01/23 Vesta Michael PA-C 300 [facility] [address] [place] [address] Specialist Vascular Surgery 10/01/23 [facility] 46 [place] [address] Specialist Optometry 10/01/23 documented as of this encounter
--- OUTSIDE RECORDS SUMMARY | 2024-07-30 10:30 | XMS_ITS | Encounter Summary ---
Author Organization [facility] Address [address] [place] [address] Care Team Providers Care Cleaner Touch Up Worker Name Role Phone Ora Ronquillo MD Primary Care Prov ider Jl Mendez MD Unavailable Jannette Boudreaux MD Unavailable [phone] Tenisha Mendieta PA-C Unavailable [phone] Julio MonkC Unavailable Luis Armando Eller MD Unavailable [phone] Jayesh Pineda MD Unavailable Kelsi Tejada MD Unavailable Unavailable Pretty Le MD Unavailable Vesta Michael PA-Pina Unavailable [phone] [facility] Unavailable [phone] Encounter Details Date Type Department Care Team Description 02/09/2022 Communication And Outreach Manager Report Medical Records [address] [place] [address] Jorge Belcher II Social History Tobacco Use Types Packs/Day Years Used Date Smoking Tobacco: Never Smokeless Tobacco: Never Alcohol Use Standard Drinks/Week Comments No 0 (1 standard drink = 0.6 oz pur e alcohol) Education Answer Date Recorded What is the highest level of school you have completed or the highest degree you have received? 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) 06/14/2020 Sex Assigned at Date Recorded Female 08/03/2020 10:16 PM EDT Job Start Date Occupation Industry Not on file Not on file Not on file documented as of this encounter Plan of Treatment Not on file documented as of this encounter Visit Diagnoses Not on filedocumented in this encounter Care Teams Cleaner Touch Up Worker Relationship Specialty Start Date End Date Ora Ronquillo MD [address] [place] [address] PCP - General Internal Medicine 10/11/21 Jl Mendez MD [address] [place] [address] Dr Mont[address] [place] [address] Specialist Cardiovascular Disease 10/13/21 Jannette Boudreaux MD [address] [address] Surgeon Neurosurgery 04/07/22 Tenisha Mendieta PA-C [address] [address] Specialist Neurosurgery 04/07/22 Julio Monk PA-C 175 [facility] 300 [place] [address] Specialist Neurosurgery 04/07/22 Luis Armando Eller MD 175 [facility] 250 [place] [address] Specialist ORTHOPEDIC SURGERY 10/01/23 Jayesh Pineda MD 305 [place] [address] Specialist Endocrinology 10/01/23 Kelsi Tejada MD 305 [place] [address] Specialist Allergy & Immunology 10/01/23 Pretty Le MD 175 [facility] 200 [place] [address] Specialist Pulmonology 10/01/23 Vesta Michael PA-C 300 [facility] 210 [place] [address] Specialist Vascular Surgery 10/01/23 [facility] [address] [place], [place] [address] Specialist Optometry 10/01/23 documented as of this encounter
--- OUTSIDE RECORDS SUMMARY | 2024-07-30 10:30 | XMS_ITS | Encounter Summary ---
Author Organization [facility] Address [address] [place] [address] Care Team Providers Care Pit Crew Support Worker Name Role Phone Teressa Solis DO Primary Care Pro vider Unavailable Mina Pretty DO Primary Care Provider Ailyn Shweta Pretty MD Primary Care Provider UnaOra Randall MD Primary Care Prov ider Jl Mendez MD Unavailable [phone] Jannette Boudreaux MD Unavailable [phone] Tenisha Mendieta PA-C Unavailable Julio Monk PA-C Unavailable Luis Armando Eller MD Unavailable [phone] Jayesh Pineda MD Unavailable Kelsi Tejada MD Unavailable Unavailable Pretty Le MD Unavailable Vesta Michael PA-C Unavailable [phone] [facility] Unavailable Reason for Visit * Reason Onset Date Comments other 11/25/2019 covid screen Encounter Details Date Type Department Care Team Description 11/25/2019 Telephone Vascular Surgery - [place] [address] [place] [address] Vesta Michael PA-C 300 [facility] [address] [place] [address] other (covid screen) Social History [...] on filedocumented in this encounter Care Teams Pit Crew Support Worker Relationship Specialty Start Date End Date Teressa Solis DO PCP - General Internal Medicine 12/18/13 09/15/20 Mina Pretty DO PCP - General Internal Medicine 09/16/20 1 Shweta Tellez MD PCP - General Internal Medicine 01/12/21 10/10/21 Ora Ronquillo MD [address] [place] [address] PCP - General Internal Medicine 10/11/21 Jl Mendez MD [address] [place] [address] [place] [address] Specialist Cardiovascular Disease 10/13/21 Jannette Boudreaux MD [address] [address] Surgeon Neurosurgery 04/07/22 Tenisha Mendieta PA-C 175 [facility] 300 [place] [address] Specialist Neurosurgery 04/07/22 Julio Monk PA-C 175 [facility] 300 [place] [address] Specialist Neurosurgery 04/07/22 Luis Armando Eller MD 175 [facility] 250 [place] [address] Specialist ORTHOPEDIC SURGERY 10/01/23 Jayesh Pineda MD 305 [place] [address] Specialist Endocrinology 10/01/23 Kelsi Tejada MD 305 [place] [address] Specialist Allergy & Immunology 10/01/23 Pretty Le MD 175 [facility] 200 [place] [address] Specialist Pulmonology 10/01/23 Vesta Michael PA-C 300 [facility] 210 [place] [address] Specialist Vascular Surgery 10/01/23 [facility] 46 [place] [address] Specialist Optometry 10/01/23 documented as of this encounter
--- OUTSIDE RECORDS SUMMARY | 2024-07-30 10:30 | XMS_ITS | Encounter Summary ---
Author Organization [facility] Address [address] [place] [address] Care Team Providers Care Servomechanism Designer Name Role Phone Teressa Solis DO Primary Care Pro vider Unavailable Mina Pretty DO Primary Care Provider Ailyn Shweta Pretty MD Primary Care Provider Ora Diaz MD Primary Care Prov ider Jl Mendez MD Unavailable [phone] Jannette Boudreaux MD Unavailable [phone] Tenisha Mendieta PA-C Unavailable Julio Monk PA-C Unavailable [phone] Luis Armando Eller MD Unavailable [phone] Jayesh Pineda MD Unavailable Kelsi Tejada MD Unavailable Unavailable Pretty eL MD Unavailable Vesta Michael PA-C Unavailable [facility] Unavailable Encounter Details Date Type Department Care Team Description 08/19/2019 Refill Gastroenterology [facility] 175 [facility] [address] [place] [address] Luis Armando Staton MD Social [...] on filedocumented in this encounter Care Teams Servomechanism Designer Relationship Specialty Start Date End Date Teressa Solis DO PCP - General Internal Medicine 12/18/13 09/15/20 Mina Pretty DO PCP - General Internal Medicine 09/16/20 Shweta Boucher MD PCP - General Internal Medicine 01/12/21 10/10/21 Ora Ronquillo MD [address] [place] [address] PCP - General Internal Medicine 10/11/21 Jl Mendez MD [address] [place] [address] Dr Mont[address] [place] [address] Specialist Cardiovascular Disease 10/13/21 Jannette Boudreaux MD [address] [address] Surgeon Neurosurgery 04/07/22 Tenisha Mendieta PA-C [address] [address] Specialist Neurosurgery 04/07/22 Julio Monk PA-C [address] [address] Specialist Neurosurgery 04/07/22 Luis Armando Eller MD [address] [address] Specialist ORTHOPEDIC SURGERY 10/01/23 Jayesh Pineda MD 305 [place] [address] Specialist Endocrinology 10/01/23 Kelsi Tejada MD 305 [facility] [place] [address] Specialist Allergy & Immunology 10/01/23 Pretty Le MD 175 [facility] [address] [place] [address] Specialist Pulmonology 10/01/23 Vesta Michael PA-C 300 [facility] 210 [place] [address] Specialist Vascular Surgery 10/01/23 [facility] 46 [place] [address] Specialist Optometry 10/01/23 documented as of this encounter
== END 2024-07-30 10:13 | disposition home or self-care (01) ==
LOC: HO.HSMS 09:10
PROVIDERS: PCP Internal Medicine; Visit Provider Physician Assistant Medical
DX: Z86.69 Personal history of other diseases of the nervous system and sense organs (principal); M54.2 Cervicalgia; G47.33 Obstructive sleep apnea (adult) (pediatric); G47.19 Other hypersomnia; R29.6 Repeated falls; R26.9 Unspecified abnormalities of gait and mobility
CPT/HCPCS: 99214; G2211

== ENCOUNTER → 2024-07-30 09:10 | Outpatient (BNVA) | payer OTHER, SELFPAY | PROVIDERS: PCP Internal Medicine; Visit Provider Physician Assistant Medical | DX: G47.33 Obstructive sleep apnea (adult) (pediatric) (principal); G47.19 Other hypersomnia; R29.6 Repeated falls; R26.9 Unspecified abnormalities of gait and mobility; M54.2 Cervicalgia; Z86.69 Personal history of other diseases of the nervous system and sense organs | CPT/HCPCS: 99212 ==

== ENCOUNTER → 2024-07-31 09:39 | Outpatient (REF) | payer OTHER, SELFPAY ==
--- NOTE | 2024-07-31 09:41 | CA_ITS ---
Acquisition Time: 2024-07-31 09:55:48 Total Exercise Time: 00:02:00 Test Indications: abn. ekg Medications: Protocol: LEXISCAN Max HR: 103 BPM 66% of Pred: 155 BPM Max BP: 148/74 mmHG Max Work Load: 1.0 METS Pharmacological stress test with Lexiscan while pt swings her legs in chair, with reports of SOB and palpitations, without any arrythmias, with normotensive response to injection. Nondiagnostic EKG for ischemia. In recovery, pt treated with IVP Aminophylline 75 mg to reverse Lexiscan after which pt feeling back to baseline. Nuclear images pending. Test reviewed with Dr. Soliz. Referred By: Randy Domínguez Electronically Signed By: Timbo Keating
--- OUTSIDE RECORDS SUMMARY | 2024-07-31 09:58 | XMS_ITS | Encounter Summary ---
Author Organization [facility] Address [address] [place] [address] Care Team Providers Care Transportation Aid Name Role Phone Teressa Solis DO Primary Care Pro vider Unavailable Mina Pretty DO Primary Care Provider Shweta Cronin MD Primary Care Provider Ora Diaz MD Primary Care Prov ider Jl Mendez MD Unavailable Jannette Boudreuax MD Unavailable [phone] Tenisha Mendieta PA-C Unavailable [phone] Julio Monk PA-C Unavailable [phone] Luis Armando Eller MD Unavailable [phone] Jayesh Pineda MD Unavailable Kelsi Tejada MD Unavailable Unavailable Pretty Le MD Unavailable Vesta Michael PA-C Unavailable [facility] Unavailable Encounter Details Date Type Department Care Team Description 07/21/2016 Grain Elevator Worker Report Medical Records [address] [place] [address] Jeff Ogden MD Social History Tobacco Use [...] on filedocumented in this encounter Care Teams Transportation Aid Relationship Specialty Start Date End Date Teressa Solis DO PCP - General Internal Medicine 12/18/13 09/15/20 Mina Pretty DO PCP - General Internal Medicine 09/16/20 Shweta Boucher MD PCP - General Internal Medicine 01/12/21 10/10/21 Ora Ronquillo MD [address] [place] [address] PCP - General Internal Medicine 10/11/21 Jl Mendez MD [address] [place] [address] Specialist Cardiovascular Disease 10/13/21 Jannette Boudreaux MD [address] [address] Surgeon Neurosurgery 04/07/22 Tenisha Mendieta PA-C [address] [address] Specialist Neurosurgery 04/07/22 Julio Monk PA-C [address] [address] Specialist Neurosurgery 04/07/22 Luis Armando Eller MD [address] [address] Specialist ORTHOPEDIC SURGERY 10/01/23 Jayesh Pineda MD 305 [place] [address] Specialist Endocrinology 10/01/23 Kelsi Tejada MD 305 [place] [address] Specialist Allergy & Immunology 10/01/23 Pretty Le MD 175 [facility] [address] [place] [address] Specialist Pulmonology 10/01/23 Vesta Michael PA-C 300 [facility] 210 [place] [address] Specialist Vascular Surgery 10/01/23 [facility] 46 [place] [address] Specialist Optometry 10/01/23 documented as of this encounter
--- OUTSIDE RECORDS SUMMARY | 2024-07-31 09:58 | XMS_ITS | Encounter Summary ---
Author Organization [facility] Address [address] [place] [address] Care Team Providers Care Deputy Chief Counsel Name Role Phone Ora Ronquillo MD Primary Care Prov ider Jl Mendez MD Unavailable Jannette Boudreaux MD Unavailable [phone] Tenisha Mendieta PA-C Unavailable [phone] Julio Monk PA-C Unavailable [phone] Luis Armando Eller MD Unavailable [phone] Jayesh Pineda MD Unavailable Kelsi Tejada MD Unavailable Unavailable Pretty Le MD Unavailable Vesta Michael PA-C Unavailable [facility] Unavailable Encounter Details Date Type Department Care Team Description 01/23/2023 Telephone General Surgery [facility] [address] [address] Unruly Ferrera MD [address] [address] Social History Tobacco Use Types Packs/Day Years Used Date Smoking Tobacco: Never Smokeless Tobacco: Never Alcohol Use Standard Drinks/Week Comments No 0 (1 standard drink = 0.6 oz pur e alcohol) Education Answer Date Recorded What is the highest level of school you have completed or the highest degree you have received? 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, CHANDRAKANT) 06/14/2020 Sex Assigned at Date [...] on filedocumented in this encounter Care Teams Deputy Chief Counsel Relationship Specialty Start Date End Date Ora Ronquillo MD [address] [place] [address] PCP - General Internal Medicine 10/11/21 Jl Mendez MD [address] [place] [address] Dr Mont[address] [place] [address] Specialist Cardiovascular Disease 10/13/21 Jannette Boudreaux MD [address] [address] Surgeon Neurosurgery 04/07/22 Tenisha Mendieta PA-C [address] [address] Specialist Neurosurgery 04/07/22 Julio Monk PA-C [address] [address] Specialist Neurosurgery 04/07/22 Luis Armando Eller MD 175 [facility] [address] [place] [address] Specialist ORTHOPEDIC SURGERY 10/01/23 Jayesh Pineda MD 305 [place] [address] Specialist Endocrinology 10/01/23 Kelsi Tejada MD 305 [place] [address] Specialist Allergy & Immunology 10/01/23 Pretty Le MD 175 [facility] [address] [place] [address] Specialist Pulmonology 10/01/23 Vesta Michael PA-C 300 [facility] [address] [place] [address] Specialist Vascular Surgery 10/01/23 [facility] 46 [place] [address] Specialist Optometry 10/01/23 documented as of this encounter
--- OUTSIDE RECORDS SUMMARY | 2024-07-31 09:58 | XMS_ITS | Encounter Summary ---
Author Organization [facility] Address [address] [place] [address] Care Team Providers Care Field Recruiter Name Role Phone Teressa Solis DO Primary Care Pro vider Unavailable Mina Pretty DO Primary Care Provider Shweta Cronin MD Primary Care Provider Ora Diaz MD Primary Care Prov ider Jl Mendez MD Unavailable Jannette Boudreaux MD Unavailable [phone] Tenisha Mendieta PA-C Unavailable Julio Monk PA-C Unavailable Luis Armando Eller MD Unavailable [phone] Jayesh Pineda MD Unavailable Kelsi Tejada MD Unavailable Unavailable Pretty Le MD Unavailable Vesta Michael PA-C Unavailable [phone] [facility] Unavailable Reason for Visit * Reason Onset Date Comments REFERRAL 08/02/2016 Surgery Encounter Details Date Type Department Care Team Description 08/02/2016 Telephone General Surgery [address] [place] [phone] Jose Cruz Valenzuela MD [address] [place] [phone] REFERRAL (Surgery) Social History Tobacco Use Types [...] Medicine 01/12/21 10/10/21 Ora Ronquillo MD [address] [place] [address] PCP - General Internal Medicine 10/11/21 Jl Mendez MD [address] [place] [address] [place] [address] Specialist Cardiovascular Disease 10/13/21 Jannette Boudreaux MD [address] [address] Surgeon Neurosurgery 04/07/22 Tenisha Mendieta PA-C [address] [address] Specialist Neurosurgery 04/07/22 Julio Monk PA-C 175 [address] [place] [address] Specialist Neurosurgery 04/07/22 Luis Armando Eller MD 175 [facility] 250 [place] [address] Specialist ORTHOPEDIC SURGERY 10/01/23 Jayesh Pineda MD 305 [place] [address] Specialist Endocrinology 10/01/23 Kelsi Tejada MD 305 [place] [address] Specialist Allergy & Immunology 10/01/23 Pretty Le MD 175 [facility] 200 [place] [address] Specialist Pulmonology 10/01/23 Vesta Michael PA-C 300 [facility] 210 [place] [address] Specialist Vascular Surgery 10/01/23 [facility] 46 [place] [address] Specialist Optometry 10/01/23 documented as of this encounter
--- OUTSIDE RECORDS SUMMARY | 2024-07-31 09:58 | XMS_ITS | Encounter Summary ---
Author Organization [facility] Address [address] [place] [address] Care Team Providers Care Food Service Representative Name Role Phone Ora Ronquillo MD Primary Care Prov ider Jl Mendez MD Unavailable [phone] Jannette Boudreaux MD Unavailable [phone] Tenisha Mendieta PA-C Unavailable Julio Monk PA-C Unavailable Luis Armando Eller MD Unavailable [phone] Jayesh Pineda MD Unavailable Kelsi Tejada MD Unavailable Unavailable Pretty Le MD Unavailable Vesta Michael PA-C Unavailable [facility] Unavailable [phone] Encounter Details Date Type Department Care Team Description 05/21/2023 Refill Endocrinology - [place] [address] [place] [address] Jayesh Pineda MD 305 [place], [place] [phone] Social History Tobacco Use Types Packs/Day Years Used Date Smoking Tobacco: Never Smokeless Tobacco: Never Alcohol Use Standard Drinks/Week Comments No 0 (1 standard drink = 0.6 oz pur e alcohol) Education Answer Date Recorded What is the highest level of school you have completed or the highest degree you have received? 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, LABELS MOLDER, CHANDRAKANT) 06/14/2020 Sex Assigned at Date Recorded [...] (HCC) documented in this encounter Care Teams Food Service Representative Relationship Specialty Start Date End Date Ora Ronquillo MD 4 [place] [address] PCP - General Internal Medicine 10/11/21 Jl Mendez MD [address] [place] [address] Dr Montiel [address] [place] [address] Specialist Cardiovascular Disease 10/13/21 Jannette Boudreaux MD [address] [address] Surgeon Neurosurgery 04/07/22 Tenisha Mendieta PA-C [address] [address] Specialist Neurosurgery 04/07/22 Julio Monk PA-C [address] [address] Specialist Neurosurgery 04/07/22 Luis Armando Eller MD 175 [facility] 250 [place] [address] Specialist ORTHOPEDIC SURGERY 10/01/23 Jayesh Pineda MD 305 [place] [address] Specialist Endocrinology 10/01/23 Kelsi Tejada MD 305 [place] [address] Specialist Allergy & Immunology 10/01/23 Pretty Le MD 175 [facility] 200 [place] [address] Specialist Pulmonology 10/01/23 Vesta Michael PA-C 300 [facility] 210 [place] [phone] Specialist Vascular Surgery 10/01/23 [facility] 46 [place] [address] Specialist Optometry 10/01/23 documented as of this encounter
--- OUTSIDE RECORDS SUMMARY | 2024-07-31 09:58 | XMS_ITS | Encounter Summary ---
Author Organization [facility] Address [address] [place] [address] Care Team Providers Care Hand Rounder Name Role Phone Shweta Tellez MD Primary Care Provider Ora Diaz MD Primary Care Prov ider Jl Mednez MD Unavailable [phone] Jannette Boudreaxu MD Unavailable [phone] Tenisha Mendieta PA-C Unavailable Julio Monk PA-C Unavailable Luis Armando Eller MD Unavailable [phone] Jayesh Pineda MD Unavailable Kelsi Tejada MD Unavailable Unavailable Pretty Le MD Unavailable Vesta Michael PA-C Unavailable [facility] Unavailable [phone] Encounter Details Date Type Department Care Team Description 05/11/2021 Orders Only Endocrinology - [place] [address] [place] [address] Jayesh Pineda MD 305 [place], [place] [phone] Hyperparathyroidism (HCC) (Primary Dx) Social History Tobacco Use Types Packs/Day Years Used Date Smoking Tobacco: Never Smokeless Tobacco: Never Alcohol Use Standard Drinks/Week Comments No 0 (1 standard drink = 0.6 oz pur e alcohol) Education Answer Date Recorded What is the highest level of school you have completed or the highest degree you have received? 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, RAND BUTTER, CHANDRAKANT) 06/14/2020 Sex Assigned at Date Recorded [...] unspecified documented in this encounter Care Teams Hand Rounder Relationship Specialty Start Date End Date Shweta Tellez MD PCP - General Internal Medicine 01/12/21 10/10/21 Ora Ronquillo MD 4 [place], [place] [phone] PCP - General Internal Medicine 10/11/21 Jl Mendez MD [address] [place] [address] [place] [address] Specialist Cardiovascular Disease 10/13/21 Jannette Boudreaux MD 175 [facility] 300 [place] [address] Surgeon Neurosurgery 04/07/22 Tenisha Mendieta PA-C 175 [facility] 300 [place] [address] Specialist Neurosurgery 04/07/22 Julio Monk PA-C 175 [facility] 300 [place] [address] Specialist Neurosurgery 04/07/22 Luis Armando Eller MD 175 [facility] 250 [place] [address] Specialist ORTHOPEDIC SURGERY 10/01/23 Jayesh Pineda MD 305 [place] [address] Specialist Endocrinology 10/01/23 Kelsi Tejada MD 305 [place] [address] Specialist Allergy & Immunology 10/01/23 Pretty Le MD 175 [facility] 200 [place] [address] Specialist Pulmonology 10/01/23 Vesta Michael PA-C 300 [facility] 210 [place] [address] Specialist Vascular Surgery 10/01/23 [facility] 46 [place] [address] Specialist Optometry 10/01/23 documented as of this encounter
--- OUTSIDE RECORDS SUMMARY | 2024-07-31 09:58 | XMS_ITS | Encounter Summary ---
Author Organization [facility] Address [address] [place] [address] Care Team Providers Care Recreational Facilities Motel Manager Name Role Phone Teressa Solis DO Primary Care Pro vider Unavailable Mina Pretty DO Primary Care Provider Shweta Cronin MD Primary Care Provider Ora Diaz MD Primary Care Prov ider Jl Mendez MD Unavailable Jannette Boudreaux MD Unavailable [phone] Tenisha Mendieta PA-C Unavailable Julio Monk PA-C Unavailable [phone] Luis Armando Eller MD Unavailable [phone] Jayesh Pineda MD Unavailable Kelsi Tejada MD Unavailable Unavailable Pretty Le MD Unavailable Vesta Michael PA-C Unavailable [phone] [facility] Unavailable [phone] Encounter Details Date Type Department Care Team Description 06/22/2020 Refill Nephrology - [address] [address] Mukesh Hebert MD [address] [place] [address] [phone] Social History Tobacco Use Types Packs/Day Years Used Date Smoking Tobacco: Never Smokeless Tobacco: Never Alcohol Use Standard Drinks/Week Comments No 0 (1 standard drink = 0.6 oz pur e alcohol) Education Answer Date Recorded What is the highest level of school you have completed or the highest degree you have received? 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, FOOD ANALYST, CHANDRAKANT) 06/14/2020 Sex Assigned at Date [...] on filedocumented in this encounter Care Teams Recreational Facilities Motel Manager Relationship Specialty Start Date End Date Teressa Solis DO PCP - General Internal Medicine 12/18/13 09/15/20 Mina Pretty DO PCP - General Internal Medicine 09/16/20 Shweta Boucher MD PCP - General Internal Medicine 01/12/21 10/10/21 Ora Ronquillo MD [address] [place] [address] PCP - General Internal Medicine 10/11/21 Jl Mendez MD [address] [place] [address] Dr Mont[address] [place] [address] Specialist Cardiovascular Disease 10/13/21 Jannette Boudreaux MD [address] [address] Surgeon Neurosurgery 04/07/22 Tenisha Mendieta PA-C [address] [address] Specialist Neurosurgery 04/07/22 Julio Monk PA-C [address] [place] [address] Specialist Neurosurgery 04/07/22 Luis Armando Eller MD 175 [facility] 250 [place] [address] Specialist ORTHOPEDIC SURGERY 10/01/23 Jayesh Pineda MD 305 [place] [address] Specialist Endocrinology 10/01/23 Kelsi Tejada MD 305 [place] [address] Specialist Allergy & Immunology 10/01/23 Pretty Le MD 175 [facility] 200 [place] [address] Specialist Pulmonology 10/01/23 Vesta Michael PA-C 300 [facility] 210 [place] [address] Specialist Vascular Surgery 10/01/23 [facility] 46 [place] [address] Specialist Optometry 10/01/23 documented as of this encounter
--- OUTSIDE RECORDS SUMMARY | 2024-07-31 09:58 | XMS_ITS | Encounter Summary ---
Author Organization [facility] Address [address] [place] [address] Care Team Providers Care Laundry Supervisor Name Role Phone Teerssa Solis DO Primary Care Pro vider Unavailable Mina Pretty DO Primary Care Provider Ailyn Shweta Pretty MD Primary Care Provider Ora Diaz MD Primary Care Prov ider Jl Mendez MD Unavailable Jannette Boudreaux MD Unavailable [phone] Tenisha Mendieta PA-C Unavailable Julio Monk PA-C Unavailable [phone] Luis Armando Ellre MD Unavailable [phone] Jayesh Pineda MD Unavailable Kelsi Tejada MD Unavailable Unavailable Pretty Le MD Unavailable Vesta Michael PA-C Unavailable [facility] Unavailable Encounter Details Date Type Department Care Team Description 01/11/2017 Placement Officer Report Medical Records 444 [place] [address] Ivan Muller Social History Tobacco Use Types [...] on filedocumented in this encounter Care Teams Laundry Supervisor Relationship Specialty Start Date End Date Teressa Solis DO PCP - General Internal Medicine 12/18/13 09/15/20 Mina Pretty DO PCP - General Internal Medicine 09/16/20 Shweta Boucher MD PCP - General Internal Medicine 01/12/21 10/10/21 Ora Ronquillo MD [address] [place] [address] PCP - General Internal Medicine 10/11/21 Jl Mendez MD [address] [place] [address] [place] [address] Specialist Cardiovascular Disease 10/13/21 Jannette Boudreaux MD [address] [address] Surgeon Neurosurgery 04/07/22 Tenisha Mendieta PA-C [address] [address] Specialist Neurosurgery 04/07/22 Julio Monk PA-C [address] [address] Specialist Neurosurgery 04/07/22 Luis Armando Eller MD [address] [address] Specialist ORTHOPEDIC SURGERY 10/01/23 Jayesh Pineda MD 305 [place] [address] Specialist Endocrinology 10/01/23 Kelsi Tejada MD 305 [place] [address] Specialist Allergy & Immunology 10/01/23 Pretty Le MD 175 [facility] [address] [place] [address] Specialist Pulmonology 10/01/23 Vesta Michael PA-C 300 [facility] [address] [place] [address] Specialist Vascular Surgery 10/01/23 [facility] 46 [place] [address] Specialist Optometry 10/01/23 documented as of this encounter
--- OUTSIDE RECORDS SUMMARY | 2024-07-31 09:58 | XMS_ITS | Encounter Summary ---
Author Organization [facility] Address [address] [place] [address] Care Team Providers Care Cap And Stud Machine Operator Name Role Phone Teressa Solis DO Primary Care Pro vider Unavailable Mina Pretty DO Primary Care Provider Shweta Cronin MD Primary Care Provider Ora Diaz MD Primary Care Prov ider Jl Mendez MD Unavailable Jannette Boudreaux MD Unavailable [phone] Tenisha Mendieta PA-C Unavailable Julio Monk PA-C Unavailable Luis Armando Eller MD Unavailable [phone] Jayesh Pineda MD Unavailable Kelsi Tejada MD Unavailable Unavailable Pretty Le MD Unavailable Vesta Michael PA-C Unavailable [facility] Unavailable Encounter Details Date Type Department Care Team Description 08/27/2015 Orders Only Adult Medicine [address] [address] Teressa Solis DO Social History [...] on filedocumented in this encounter Care Teams Cap And Stud Machine Operator Relationship Specialty Start Date End Date Teressa Solis DO PCP - General Internal Medicine 12/18/13 09/15/20 Mina Pretty DO PCP - General Internal Medicine 09/16/20 1 Shweta Tellez MD PCP - General Internal Medicine 01/12/21 10/10/21 Hiwot Couch, Ora Kelly MD [address] [place] [address] PCP - General Internal Medicine 10/11/21 Jl Mendez MD [address] [place] [address] Dr Montiel [address] [place] [address] Specialist Cardiovascular Disease 10/13/21 Jannette Boudreaux MD [address] [address] Surgeon Neurosurgery 04/07/22 Tenisha Mendieta PA-C [address] [address] Specialist Neurosurgery 04/07/22 Julio Monk PA-C 175 [facility] [address] [place] [address] Specialist Neurosurgery 04/07/22 Luis Armando Eller MD [address] [address] Specialist ORTHOPEDIC SURGERY 10/01/23 Jayesh Pineda MD 305 [place] [address] Specialist Endocrinology 10/01/23 Kelsi Tejada MD 305 [place] [address] Specialist Allergy & Immunology 10/01/23 Pretty Le MD 175 [facility] [address] [place] [address] Specialist Pulmonology 10/01/23 Vesta Michael PA-C 300 [facility] [address] [place] [address] Specialist Vascular Surgery 10/01/23 [facility] 46 [place] [address] Specialist Optometry 10/01/23 documented as of this encounter
--- OUTSIDE RECORDS SUMMARY | 2024-07-31 09:58 | XMS_ITS | Encounter Summary ---
Author Organization [facility] Address [address] [place] [address] Care Team Providers Care Delicatessen Clerk Name Role Phone Geno Cueva MD Primary Care Provider Unavailable Teressa Solis DO Primary Care Pro vider Unavailable Mina Pretty DO Primary Care Provider Ailyn Shweta Pretty MD Primary Care Provider Ora Diaz MD Primary Care Prov ider Jl Mendez MD Unavailable Jannette Boudreaux MD Unavailable [phone] Tenisha Mendieta PA-C Unavailable Julio Monk PA-C Unavailable [phone] Luis Armando Eller MD Unavailable [phone] Jayesh Pineda MD Unavailable Kelsi Tejada MD Unavailable Unavailable Pretty Le MD Unavailable Vesta Michael-Pina Unavailable [phone] [facility] Unavailable [phone] Encounter Details Date Type Department Care Team Description 06/30/2013 See Wheeler Report Medical Records [address] [place] [address] Narinder Franco MD Social History Tobacco Use [...] on filedocumented in this encounter Care Teams Delicatessen Clerk Relationship Specialty Start Date End Date Geno Cueva MD PCP - General Internal Medicine 06/28/1212/17/13 Teressa Solis DO PCP - General Internal Medicine 12/18/13 09/15/20 Mina Pretty DO PCP - General Internal Medicine 09/16/20 1 Shweta Tellez MD PCP - General Internal Medicine 01/12/21 10/10/21 Hiwot Couch, Ora Kelly MD [address] [place] [address] PCP - General Internal Medicine 10/11/21 Jl Mendez MD [address] [place] [address] Dr Montiel [address] [place] [address] Specialist Cardiovascular Disease 10/13/21 Jannette Boudreaux MD [address] [address] Surgeon Neurosurgery 04/07/22 Tenisha Mendieta PA-C [address] [address] Specialist Neurosurgery 04/07/22 Julio Monk PA-C [address] [address] Specialist Neurosurgery 04/07/22 Luis Armando Eller MD [address] [address] Specialist ORTHOPEDIC SURGERY 10/01/23 Jayesh Pineda MD [address] [place] [address] Specialist Endocrinology 10/01/23 Kelsi Tejada MD 305 [place] [address] Specialist Allergy & Immunology 10/01/23 Pretty Le MD 175 [facility] [address] [place] [address] Specialist Pulmonology 10/01/23 Vesta Michael PA-C 300 [facility] [address] [place] [address] Specialist Vascular Surgery 10/01/23 [facility] 46 [place] [address] Specialist Optometry 10/01/23 documented as of this encounter
--- OUTSIDE RECORDS SUMMARY | 2024-07-31 09:58 | XMS_ITS | Encounter Summary ---
Author Organization [facility] Address [address] [place] [address] Care Team Providers Care College Scouting Coordinator Name Role Phone Teressa Solis DO Primary Care Pro vider Unavailable Mina Pretty DO Primary Care Provider Shweta Cronin MD Primary Care Provider Ora Diaz MD Primary Care Prov ider Jl Mendez MD Unavailable Jannette Boudreaux MD Unavailable [phone] Tenisha Mendieta PA-C Unavailable Julio Monk PA-C Unavailable Luis Armando Eller MD Unavailable [phone] Jayesh Pineda MD Unavailable Kelsi Tejada MD Unavailable Unavailable Pretty Le MD Unavailable Vesta Michael PA-C Unavailable [phone] [facility] Unavailable [phone] Encounter Details Date Type Department Care Team Description 07/31/2016 SCAN Medical Records 4 [place] [address] Abstract, Provider Social History Tobacco Use Types [...] on filedocumented in this encounter Care Teams College Scouting Coordinator Relationship Specialty Start Date End Date Teressa Solis DO PCP - General Internal Medicine 12/18/13 09/15/20 Mina Pretty DO PCP - General Internal Medicine 09/16/20 Shweta Boucher MD PCP - General Internal Medicine 01/12/21 10/10/21 Ora Ronquillo MD [address] [place] [address] PCP - General Internal Medicine 10/11/21 Jl Mendez MD [address] [place] [address] Dr Mont[address] [place] [address] Specialist Cardiovascular Disease 10/13/21 Jannette Boudreaux MD [address] [address] Surgeon Neurosurgery 04/07/22 Tenisha Mendieta PA-C [address] [address] Specialist Neurosurgery 04/07/22 Julio Monk PA-C [address] [address] Specialist Neurosurgery 04/07/22 Luis Armando Eller MD [address] [address] Specialist ORTHOPEDIC SURGERY 10/01/23 Jayesh Pineda MD 305 [place] [address] Specialist Endocrinology 10/01/23 Kelsi Tejada MD 305 [place] [address] Specialist Allergy & Immunology 10/01/23 Pretty Le MD 175 [facility] [address] [place] [address] Specialist Pulmonology 10/01/23 Vesta Michael PA-C 300 [facility] 210 [place] [address] Specialist Vascular Surgery 10/01/23 [facility] 46 [place] [address] Specialist Optometry 10/01/23 documented as of this encounter
--- OUTSIDE RECORDS SUMMARY | 2024-07-31 09:58 | XMS_ITS | Encounter Summary ---
Author Organization [facility] Address [address] [place] [address] Care Team Providers Care Manager Lean Name Role Phone Teressa Solis DO Primary Care Pro vider Unavailable Mina Pretty DO Primary Care Provider Shweta Cronin MD Primary Care Provider Ora Diaz MD Primary Care Prov ider Jl Mendez MD Unavailable [phone] Jannette Boudreaux MD Unavailable [phone] Tenisha Mendieta PA-C Unavailable [phone] Julio Monk PA-C Unavailable [phone] Luis Armando Eller MD Unavailable [phone] Jayesh Pineda MD Unavailable Kelsi Tejada MD Unavailable Unavailable Pretty Le MD Unavailable Vesta Michael PA-C Unavailable [facility] Unavailable Encounter Details Date Type Department Care Team Description 01/11/2016 Permit Specialist Report Medical Records 4 [place] [address] Jeff Ogden MD Social History Tobacco Use [...] filedocumented in this encounter Care Teams Manager Lean Relationship Specialty Start Date End Date Teressa Solis DO PCP - General Internal Medicine 12/18/13 09/15/20 Mina Pretty DO PCP - General Internal Medicine 09/16/20 Shweta Boucher MD PCP - General Internal Medicine 01/12/21 10/10/21 Ora Ronquillo MD [address] [place] [address] PCP - General Internal Medicine 10/11/21 Jl Mendez MD [address] [place] [address] Specialist Cardiovascular Disease 10/13/21 Jannette Boudreaux MD [address] [address] Surgeon Neurosurgery 04/07/22 Tenisha Mendieta PA-C [address] [address] Specialist Neurosurgery 04/07/22 Julio Monk PA-C [address] [address] Specialist Neurosurgery 04/07/22 Luis Armando Eller MD [address] [address] Specialist ORTHOPEDIC SURGERY 10/01/23 Jayesh Pineda MD 305 [place] [address] Specialist Endocrinology 10/01/23 Kelsi Tejada MD 305 [place] [address] Specialist Allergy & Immunology 10/01/23 Pretty Le MD 175 [facility] [address] [place] [address] Specialist Pulmonology 10/01/23 Vesat Michael PA-C 300 [facility] 210 [place] [address] Specialist Vascular Surgery 10/01/23 [facility] 46 [place] [address] Specialist Optometry 10/01/23 documented as of this encounter
--- OUTSIDE RECORDS SUMMARY | 2024-07-31 09:58 | XMS_ITS | Encounter Summary ---
Author Organization [facility] Address [address] [place] [address] Care Team Providers Care Financial Coordinator Name Role Phone Ora Sweeney MD Primary Care Prov ider Encounter Details Date Type Department Care Team (Late st Contact Info) Description 12/12/2023 4:42 PM EDT Hospital Encounter TH HISTORIC ENCOUNTERS EASTERN CONVERSION ONLY Luis Armando Eller MD [address] Dinesh 160 [place] [address] Social History Tobacco Use Types Packs/Day Years [...] AM EDT Office Visit Orthopedic Surgery - [place] [address] [phone] Duke Dunn, BASIL 175 [facility] 250 [place] [address] 08/21/2024 8:30 AM EDT Appointment [facility] [address] [place] [address] Dena Carrasco MD [address] [address] 08/22/2024 1:30 PM EDT Office Visit Obstetrics & Gynecology - [address] [address] Nguyen Crespo, CNM [address] [place] [address] 09/08/2024 11:15 AM EDT Office Visit Endocrinology [address] [phone] Jayesh Pineda MD 305 [place] [address] 09/22/2024 8:45 AM EDT Office Visit Pulmonolgy - [address] [address] Pretty Le MD [address] [place] [address] 10/01/2024 7:30 AM EDT Office Visit Adult Medicine East [address] [phone] Paula Garnica PA 444 [place] [address] 12/05/2024 11:00 AM EDT Office Visit Orthopedic Surgery - [place] [address] [place] [address] Genny Arreguin PA [address] [address] 12/09/2024 9:00 AM EDT Nutrition Internal Medicine - [address] 200 [place] [phone] Bruna Caballero, RD 175 [place] [phone] 12/12/2024 8:30 AM EDT Office Visit Adult Medicine [facility] [address] [place] [address] Ora Sweeney MD [address] [place] [address] documented as of this encounter Visit Diagnoses Not on filedocumented in this encounter Additional Health Concerns Infection Onset Date Last Indicated Resolved Time Respiratory Rule-Out 04/25/2024 04/25/2024 025 4:13 PM EST COVID-19 Rule-Out 04/25/2024 04/25/2024 04/25/2024 4:13 PM EST documented as of this encounter Care Teams Financial Coordinator Relationship Specialty Start Date End Date Ora Sweeney MD [address] [place] [address] PCP - General 10/11/21 01/08/24 documented as of this encounter
--- OUTSIDE RECORDS SUMMARY | 2024-07-31 09:58 | XMS_ITS | Encounter Summary ---
Author Organization [facility] Address [address] [place] [address] Care Team Providers Care Manager Registration Name Role Phone Ora Ronquillo MD Primary Care Prov ider Jl Mendez MD Unavailable Jannette Boudreaux MD Unavailable [phone] Tenisha Mendieta PA-C Unavailable Julio MonkC Unavailable [phone] Luis Armando Eller MD Unavailable [phone] Jayesh Pineda MD Unavailable Kelsi Tejada MD Unavailable Unavailable Pretty Le MD Unavailable Vesta Michael PA-Pina Unavailable [phone] [facility] Unavailable [phone] Encounter Details Date Type Department Care Team Description 02/15/2023 Inserting Press Operator Report Medical Records 4 [place] [address] Kelsi Tejada MD Social History Tobacco Use Types Packs/Day Years Used Date Smoking Tobacco: Never Smokeless Tobacco: Never Alcohol Use Standard Drinks/Week Comments No 0 (1 standard drink = 0.6 oz pur e alcohol) Education Answer Date Recorded What is the highest level of school you have completed or the highest degree you have received? 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, REAGENT TENDER HELPER, CHANDRAKANT) 06/14/2020 Sex Assigned at Date [...] filedocumented in this encounter Care Teams Manager Registration Relationship Specialty Start Date End Date Ora Ronquillo MD [address] [place] [address] PCP - General Internal Medicine 10/11/21 Jl Mendez MD [address] [place] [address] Dr Montiel [address] [place] [address] Specialist Cardiovascular Disease 10/13/21 Jannette Buodreaux MD [address] [address] Surgeon Neurosurgery 04/07/22 Tenisha Mendieta PA-C [address] [address] Specialist Neurosurgery 04/07/22 Julio Monk PA-C 175 [facility] 300 [place] [address] Specialist Neurosurgery 04/07/22 Luis Armando Eller MD [address] [address] Specialist ORTHOPEDIC SURGERY 10/01/23 Jayehs Pineda MD 305 [place] [address] Specialist Endocrinology 10/01/23 Kelsi Tejada MD 305 [place] [address] Specialist Allergy & Immunology 10/01/23 Pretty Le MD 175 [facility] 200 [place] [address] Specialist Pulmonology 10/01/23 Vesta Michael PA-C 300 [facility] [address] [place] [address] Specialist Vascular Surgery 10/01/23 [facility] 46 [place] [address] Specialist Optometry 10/01/23 documented as of this encounter
--- OUTSIDE RECORDS SUMMARY | 2024-07-31 09:58 | XMS_ITS | Encounter Summary ---
Author Organization [facility] Address [address] [place] [address] Care Team Providers Care Pharmacy Billing Adjudicator Name Role Phone Teressa Solis DO Primary Care Pro vider Unavailable Mina Pretty DO Primary Care Provider Shweta Cronin MD Primary Care Provider Ora Diaz MD Primary Care Prov ider Jl Mendez MD Unavailable [phone] Jannette Boudreaux MD Unavailable [phone] Tenisha Mendieta PA-C Unavailable [phone] Julio Monk PA-C Unavailable Luis Armando Eller MD Unavailable [phone] Jayesh Pineda MD Unavailable Kelsi Tejada MD Unavailable Unavailable Pretty Le MD Unavailable Vesta Michael PA-C Unavailable [phone] [facility] Unavailable [phone] Encounter Details Date Type Department Care Team Description 07/21/2020 Gasoline Tester Report Medical Records 4 [place] [address] Randy Domínguez MD Social History Tobacco Use Types Packs/Day Years Used Date Smoking Tobacco: Never Smokeless Tobacco: Never Alcohol Use Standard Drinks/Week Comments No 0 (1 standard drink = 0.6 oz pur e alcohol) Education Answer Date Recorded What is the highest level of school you have completed or the highest degree you have received? 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, DIRECTOR STUDENT UNION, CHANDRAKANT) 06/14/2020 Sex Assigned at Date Recorded Female 08/03/2020 10:16 PM EDT Job Start Date Occupation Industry Not on file Not on file Not on file documented as of this encounter Plan of Treatment Not on file documented as of this encounter Visit Diagnoses Not on filedocumented in this encounter Care Teams Pharmacy Billing Adjudicator Relationship Specialty Start Date End Date Teressa Solis DO PCP - General Internal Medicine 12/18/13 09/15/20 Mina Pretty DO PCP - General Internal Medicine 09/16/20 Shweta Boucher MD PCP - General Internal Medicine 01/12/21 10/10/21 Ora Ronquillo MD [address] [place] [address] PCP - General Internal Medicine 10/11/21 Jl Mendez MD [address] [place] [address] Dr Montiel [address] [place] [address] Specialist Cardiovascular Disease 10/13/21 Jannette Boudreaux MD [address] [address] Surgeon Neurosurgery 04/07/22 Tenisha Mendieta PA-C [address] [address] Specialist Neurosurgery 04/07/22 Julio Monk PA-C 175 [facility] [address] [place] [address] Specialist Neurosurgery 04/07/22 Luis Armando Eller MD [address] [address] Specialist ORTHOPEDIC SURGERY 10/01/23 Jayesh Pineda MD 305 [place] [address] Specialist Endocrinology 10/01/23 Kelsi Tejada MD 305 [place] [address] Specialist Allergy & Immunology 10/01/23 Pretty Le MD 175 [facility] [address] [place] [address] Specialist Pulmonology 10/01/23 Vesta Michael PA-C 300 [facility] 210 [place] [address] Specialist Vascular Surgery 10/01/23 [facility] 46 [place] [address] Specialist Optometry 10/01/23 documented as of this encounter
--- OUTSIDE RECORDS SUMMARY | 2024-07-31 09:58 | XMS_ITS | Encounter Summary ---
Author Organization [facility] Address [address] [place] [address] Care Team Providers Care Deputy Sheriff K9 Handler Name Role Phone Geno Cueva MD Primary Care Provider Unavailable Teressa Solis DO Primary Care Pro vider Unavailable Mina Pretty DO Primary Care Provider Ailyn Shweta Pretty MD Primary Care Provider Ora Diaz MD Primary Care Prov ider Jl Mendez MD Unavailable [phone] Jannette Boudreaux MD Unavailable [phone] Tenisha Mendieta PA-C Unavailable uJlio Monk PA-C Unavailable Luis Armando Eller MD Unavailable [phone] Jayesh Pineda MD Unavailable Kelsi Tejada MD Unavailable Unavailable Pretty Le MD Unavailable Vesta Michael-Pina Unavailable [phone] [facility] Unavailable [phone] Encounter Details Date Type Department Care Team Description 02/24/2013 Hospital Medical Records [address] [place] [address] Zoltan Chu Social History Tobacco Use Types Packs/Day Years Used Date Smoking Tobacco: Never Smokeless Tobacco: Never Alcohol Use Standard Drinks/Week Comments No 0 (1 standard drink = 0.6 oz pur e alcohol) Education Answer Date Recorded What is the highest level of school you have completed or the highest degree you have received? 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, HIGH SCHOOL FOREIGN LANGUAGE TEACHER, CHANDRAKANT) 06/14/2020 Sex Assigned at Date Recorded Female 08/03/2020 10:16 PM EDT Job Start Date Occupation Industry Not on file Not on file Not on file documented as of this encounter Plan of Treatment Not on file documented as of this encounter Visit Diagnoses Not on filedocumented in this encounter Care Teams Deputy Sheriff K9 Handler Relationship Specialty Start Date End Date Geno Cueva MD PCP - General Internal Medicine 06/28/1212/17/13 Teressa Solis, DO PCP - General Internal Medicine 12/18/13 09/15/20 Mina Pretty, PCP - General Internal Medicine 09/16/20 1 Shweta Tellez MD PCP - General Internal Medicine 01/12/21 10/10/21 Ora Ronquillo MD [address] [place] [address] PCP - General Internal Medicine 10/11/21 Jl Mendez MD [address] [place] [address] Dr Mont[address] [place] [address] Specialist Cardiovascular Disease 10/13/21 Jannette Boudreaux MD [address] [address] Surgeon Neurosurgery 04/07/22 Tenisha Mendieta PA-C [address] [address] Specialist Neurosurgery 04/07/22 Julio Monk PA-C 175 [facility] [address] [place] [address] Specialist Neurosurgery 04/07/22 Luis Armando Eller MD [address] [address] Specialist ORTHOPEDIC SURGERY 10/01/23 Jayesh Pineda MD 305 [place] [address] Specialist Endocrinology 10/01/23 Kelsi Tejada MD 305 [place] [address] Specialist Allergy & Immunology 10/01/23 Pretty Le MD 175 [facility] [address] [place] [address] Specialist Pulmonology 10/01/23 Vesta Michael PA-C 300 [facility] 210 [place] [address] Specialist Vascular Surgery 10/01/23 [facility] 46 [place] [address] Specialist Optometry 10/01/23 documented as of this encounter
--- OUTSIDE RECORDS SUMMARY | 2024-07-31 09:58 | XMS_ITS | Encounter Summary ---
Author Organization [facility] Address [address] [place] [address] Care Team Providers Care Field Services Manager Name Role Phone Teressa Solis DO Primary Care Pro vider Unavailable Mina Pretty DO Primary Care Provider Shweta Cronin MD Primary Care Provider Ora Diaz MD Primary Care Prov ider Jl Mendez MD Unavailable Jannette Boudreaux MD Unavailable [phone] Tenisha Mendieta PA-C Unavailable Julio Monk PA-C Unavailable [phone] Luis Armando Eller MD Unavailable [phone] Jayesh Pineda MD Unavailable Kelsi Tejada MD Unavailable Unavailable Pretty Le MD Unavailable Vesta Michael PA-C Unavailable [facility] Unavailable [phone] Encounter Details Date Type Department Care Team Description 01/22/2017 Pecan Cleaner Report Medical Records 4 [place] [address] Abstract, Provider Social History Tobacco Use Types [...] filedocumented in this encounter Care Teams Field Services Manager Relationship Specialty Start Date End Date Teressa Solis DO PCP - General Internal Medicine 12/18/13 09/15/20 Mina Pretty DO PCP - General Internal Medicine 09/16/20 Shweta Boucher MD PCP - General Internal Medicine 01/12/21 10/10/21 Ora Ronquillo MD [address] [place] [address] PCP - General Internal Medicine 10/11/21 Jl Mendez MD [address] [place] [address] Specialist Cardiovascular Disease 10/13/21 Jannette Boudreaux MD [address] [address] Surgeon Neurosurgery 04/07/22 Tenisha Mendieta PA-C [address] [address] Specialist Neurosurgery 04/07/22 Julio Monk PA-C [address] [address] Specialist Neurosurgery 04/07/22 Luis Armando Eller MD [address] [address] Specialist ORTHOPEDIC SURGERY 10/01/23 Jayesh Pineda MD 305 [place] [address] Specialist Endocrinology 10/01/23 Kelsi Tejada MD 305 [place] [address] Specialist Allergy & Immunology 10/01/23 Pretty Le MD 175 [facility] [address] [place] [address] Specialist Pulmonology 10/01/23 Vesta Michael PA-C 300 [facility] [address] [place] [address] Specialist Vascular Surgery 10/01/23 [facility] 46 [place] [address] Specialist Optometry 10/01/23 documented as of this encounter
--- OUTSIDE RECORDS SUMMARY | 2024-07-31 09:58 | XMS_ITS | Encounter Summary ---
Author Organization [facility] Address [address] [place] [address] Care Team Providers Care Truck Driving Name Role Phone Teressa Solis DO Primary Care Pro vider Unavailable Mina Pretty DO Primary Care Provider Ailyn Shweta Pretty MD Primary Care Provider UnaOra Randall MD Primary Care Prov ider Jl Mendez MD Unavailable [phone] Jannette Boudreaux MD Unavailable [phone] Tenisha Mendieta PA-C Unavailable [phone] Julio MonkC Unavailable Luis Armando Eller MD Unavailable [phone] Jayesh Pineda MD Unavailable Kelsi Tejada MD Unavailable Unavailable Pretty eL MD Unavailable Vesta Michael PA-C Unavailable [phone] [facility] Unavailable [phone] Encounter Details Date Type Department Care Team Description 06/10/2020 Refill Pulmonology - [place] 175 [facility] [address] [place] [address] Julio Cesar Weiss MD [address] [facility] [address] [place] [address] Social History Tobacco Use Types [...] (pneumococcus) documented in this encounter Care Teams Truck Driving Relationship Specialty Start Date End Date Teressa Solis DO PCP - General Internal Medicine 12/18/13 09/15/20 Mina Pretty DO PCP - General Internal Medicine 09/16/20 1 Shweta Tellez MD PCP - General Internal Medicine 01/12/21 10/10/21 Hiwot Couch, Ora Kelly MD [address] [place] [address] PCP - General Internal Medicine 10/11/21 Jl Mendez MD [address] [place] [address] Dr Montiel [address] [place] [address] Specialist Cardiovascular Disease 10/13/21 Jannette Boudreaux MD [address] [address] Surgeon Neurosurgery 04/07/22 Tenisha Mendieta PA-C [address] [address] Specialist Neurosurgery 04/07/22 Julio Monk PA-C [address] [address] Specialist Neurosurgery 04/07/22 Luis Armando Eller MD 175 [facility] [address] [place] [address] Specialist ORTHOPEDIC SURGERY 10/01/23 Jayesh Pineda MD 305 [place] [address] Specialist Endocrinology 10/01/23 Kelsi Tejada MD 305 [place] [address] Specialist Allergy & Immunology 10/01/23 Pretty Le MD 175 [facility] [address] [place] [address] Specialist Pulmonology 10/01/23 Vesta Michael PA-C 300 [facility] [address] [place] [address] Specialist Vascular Surgery 10/01/23 [facility] 46 [place] [address] Specialist Optometry 10/01/23 documented as of this encounter
--- OUTSIDE RECORDS SUMMARY | 2024-07-31 09:58 | XMS_ITS | Encounter Summary ---
Author Organization [facility] Address [address] [place] [address] Care Team Providers Care Exercise Teacher Name Role Phone Teressa Solis DO Primary Care Pro vider Unavailable Mina Pretty DO Primary Care Provider Shweta Cronin MD Primary Care Provider Ora Diaz MD Primary Care Prov ider Jl Mendez MD Unavailable Jannette Boudreaux MD Unavailable [phone] Tenisha Mendieta PA-C Unavailable Julio Monk PA-C Unavailable Luis Armando Eller MD Unavailable [phone] Jayesh Pineda MD Unavailable Kelsi Tejada MD Unavailable Unavailable Pretty Le MD Unavailable Vesta Michael PA-C Unavailable [facility] Unavailable Reason for Visit * Reason Onset Date Comments Pre-op Needed 01/24/2017 Encounter Details Date Type Department Care Team Description 01/24/2017 Telephone Adult [address] [address] Teressa Solis DO Pre-op Needed [...] Jovanny Strange Office phone number of surgeon: [phone] Fax # for surgeons office: [phone] Where is surgery being performed?[facility] Diagnosis/problem for surgery: Oral cavity, facial bones PCP: Teressa Gallegos Did you verify that the insurance below is correct? YES Patients insurance: Payor: [facility] MEDICAID / Plan: [facility] MEDICAID O $0 [place] / Product Type: [id number] documented in this encounter Plan of Treatment [...] Medicine 01/12/21 10/10/21 Ora Ronquillo MD [address] [place] [address] PCP - General Internal Medicine 10/11/21 Jl Mendez MD [address] [place] [address] [place] [address] Specialist Cardiovascular Disease 10/13/21 Jannette Boudreaux MD 175 [facility] 300 [place] [address] Surgeon Neurosurgery 04/07/22 Tenisha Mendieta PA-C 175 [facility] 300 [place] [address] Specialist Neurosurgery 04/07/22 Julio Monk PA-C 175 [facility] 300 [place] [address] Specialist Neurosurgery 04/07/22 Luis Armando Eller MD 175 [facility] 250 [place] [address] Specialist ORTHOPEDIC SURGERY 10/01/23 Jayesh Pineda MD 305 [place] [address] Specialist Endocrinology 10/01/23 Kelsi Tejada MD 305 [place] [address] Specialist Allergy & Immunology 10/01/23 Pretty Le MD 175 [facility] 200 [place] [address] Specialist Pulmonology 10/01/23 Vesta Michael PA-C 300 [facility] 210 [place] [address] Specialist Vascular Surgery 10/01/23 [facility] 46 [place] [address] Specialist Optometry 10/01/23 documented as of this encounter
--- OUTSIDE RECORDS SUMMARY | 2024-07-31 09:58 | XMS_ITS | Encounter Summary ---
Author Organization [facility] Address [address] [place] [address] Care Team Providers Care Microgrinder Operator Name Role Phone Ora Ronquillo MD Primary Care Prov ider Jl Mendez MD Unavailable Jannette Boudreaux MD Unavailable [phone] Tenisha Mendieta PA-C Unavailable Julio MonkC Unavailable Luis Armando Eller MD Unavailable [phone] Jayesh Pineda MD Unavailable Kelsi Tejada MD Unavailable Unavailable Pretty Le MD Unavailable Vesta Michael PA-Pina Unavailable [phone] [facility] Unavailable [phone] Encounter Details Date Type Department Care Team Description 09/14/2022 Mathematics Improvement Teacher Report Medical Records 4 [place] [address] Jorge Belcher II Social History Tobacco Use Types Packs/Day Years Used Date Smoking Tobacco: Never Smokeless Tobacco: Never Alcohol Use Standard Drinks/Week Comments No 0 (1 standard drink = 0.6 oz pur e alcohol) Education Answer Date Recorded What is the highest level of school you have completed or the highest degree you have received? 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, PHOTOGRAPHIC MACHINE OPERATOR, CHANDRAKANT) 06/14/2020 Sex Assigned at [...] on filedocumented in this encounter Care Teams Microgrinder Operator Relationship Specialty Start Date End Date Ora Ronquillo MD 444 [place] [address] PCP - General Internal Medicine 10/11/21 Jl Mendez MD [address] [place] [address] Dr Mont[address] [place] [address] Specialist Cardiovascular Disease 10/13/21 Jannette Boudreaux MD 175 [facility] 300 [place] [address] Surgeon Neurosurgery 04/07/22 Tenisha Mendieta PA-C [address] [address] Specialist Neurosurgery 04/07/22 Julio Monk PA-C 175 [facility] 300 [place] [address] Specialist Neurosurgery 04/07/22 Luis Armando Eller MD [address] [address] Specialist ORTHOPEDIC SURGERY 10/01/23 Jayesh Pineda MD 305 [place] [address] Specialist Endocrinology 10/01/23 Kelsi Tejada MD 305 [place] [address] Specialist Allergy & Immunology 10/01/23 Pretty Le MD 175 [facility] 200 [place] [address] Specialist Pulmonology 10/01/23 Vesta Michael PA-C 300 [facility] 210 [place] [address] Specialist Vascular Surgery 10/01/23 [facility] 46 [place] [address] Specialist Optometry 10/01/23 documented as of this encounter
--- OUTSIDE RECORDS SUMMARY | 2024-07-31 09:58 | XMS_ITS | Encounter Summary ---
Author Organization [facility] Address [address] [place] [address] Care Team Providers Care Corporate Concierge Name Role Phone Teressa Solis DO Primary Care Pro vider Unavailable Mina Pretty DO Primary Care Provider Shweta Cronin MD Primary Care Provider Ora Diaz MD Primary Care Prov ider Jl Mendez MD Unavailable Jannette Boudreaux MD Unavailable [phone] Tenisha Mendieta PA-C Unavailable Julio Monk PA-C Unavailable Luis Armando Eller MD Unavailable [phone] Jayesh Pineda MD Unavailable Kelsi Tejada MD Unavailable Unavailable Pretty Le MD Unavailable Vesta Michael PA-C Unavailable [phone] [facility] Unavailable Reason for Visit * Reason Onset Date Comments Prior Authorization 07/22/2020 Encounter Details Date Type Department Care Team Description 07/22/2020 [place] Adult [address] [id number] Teressa Solis DO Prior Authorization Social History [...] Master's degree (e.g., TANIA, MS, Lexi, Joel, HAND PACKAGER, CHANDRAKANT) 06/14/2020 Sex Assigned at Date Recorded [...] My Meds request: Yes -- [place] Code [id number] Name of Medication Pantoprazole Sodium Dose of Medication 40mg What is the RX # from the faxed refill? How does patient take this med? Tablets What Pharmacy did the fax come from: [facility] Pharmacy fax #: [facility] Information from fax: What Prescription Plan does the patient have? [facility] BIN/PCN if applicable: Cardholder ID: Person Code: Relationship Code: Help desk phone: documented in this encounter Plan of Treatment Not on file documented as of this encounter Visit Diagnoses Not on filedocumented in this encounter Care Teams Corporate Concierge Relationship Specialty Start Date End Date Teressa Solis DO PCP - General Internal Medicine 12/18/13 09/15/20 Mina Pretty DO PCP - General Internal Medicine 09/16/20 Shweta Boucher MD PCP - General Internal Medicine 01/12/21 10/10/21 Ora Ronquillo MD 444 [place] [address] PCP - General Internal Medicine 10/11/21 Jl Mendez MD [address] [place] [address] Dr Mont[address] [place] [address] Specialist Cardiovascular Disease 10/13/21 Jannette Boudreaux MD [address] [address] Surgeon Neurosurgery 04/07/22 Tenisha Mendieta PA-C [address] [address] Specialist Neurosurgery 04/07/22 Julio Monk PA-C [address] [address] Specialist Neurosurgery 04/07/22 Luis Armando Eller MD [address] [address] Specialist ORTHOPEDIC SURGERY 10/01/23 Jayesh Pineda MD 305 [place] [address] Specialist Endocrinology 10/01/23 Kelsi Tejada MD 305 [place] [address] Specialist Allergy & Immunology 10/01/23 Pretty Le MD 175 [facility] 200 [place] [address] Specialist Pulmonology 10/01/23 Vesta Michael PA-C 300 [facility] 210 [place] [address] Specialist Vascular Surgery 10/01/23 [facility] 46 [place] [address] Specialist Optometry 10/01/23 documented as of this encounter
--- OUTSIDE RECORDS SUMMARY | 2024-07-31 09:58 | XMS_ITS | Encounter Summary ---
Author Organization [facility] Address [address] [place] [address] Care Team Providers Care Windows Laptop Technician Name Role Phone Teressa Solis DO Primary Care Pro vider Unavailable Mina Pretty DO Primary Care Provider Ailyn Shweta Pretty MD Primary Care Provider Ora Diaz MD Primary Care Prov ider Jl Mendez MD Unavailable Jannette Boudreaux MD Unavailable [phone] Tenisha Mendieta PA-C Unavailable Julio Monk PA-C Unavailable Luis Armando Eller MD Unavailable [phone] Jayesh Pineda MD Unavailable Kelsi Tejada MD Unavailable Unavailable Pretty Le MD Unavailable Vesta Michael PA-C Unavailable [phone] [facility] Unavailable Encounter Details Date Type Department Care Team Description 08/26/2015 Orders Only Adult Medicine [address] [id number] Teressa Solis DO Hypothyroidism due to acquired [...] - 4.00 mIU/ml 08/30/2015 1:09 PM EDT [facility] 08/30/2015 11:1 3 AM EDT 08/30/2015 11:13 AM EDT Teressa Grace DO LAB [facility] [address] [facility] documented in this encounter Visit Diagnoses Diagnosis Hypothyroidism due to acquired atrophy of thyroid- Primary documented in this encounter Care Teams Windows Laptop Technician Relationship Specialty Start Date End Date Teressa Solis DO PCP - General Internal Medicine 12/18/13 09/15/20 Mina Pretty DO PCP - General Internal Medicine 09/16/20 1 Shweta Tellez MD PCP - General Internal Medicine 01/12/21 10/10/21 Ora Ronquillo MD [address] [place] [address] PCP - General Internal Medicine 10/11/21 Jl Mendez MD [address] [place] [address] Dr Mont[address] [place] [address] Specialist Cardiovascular Disease 10/13/21 Jannette Boudreaux MD [address] [address] Surgeon Neurosurgery 04/07/22 Tenisha Mendieta PA-C [address] [address] Specialist Neurosurgery 04/07/22 Julio Monk PA-C 175 [facility] 300 [place] [address] Specialist Neurosurgery 04/07/22 Luis Armando Eller MD 175 [facility] 250 [place] [address] Specialist ORTHOPEDIC SURGERY 10/01/23 Jayesh Pineda MD 305 [place] [address] Specialist Endocrinology 10/01/23 Kelsi eTjada MD 305 [place] [address] Specialist Allergy & Immunology 10/01/23 Pretty Le MD 175 [facility] 200 [place] [address] Specialist Pulmonology 10/01/23 Vesta Michael PA-C 300 [facility] 210 [place] [address] Specialist Vascular Surgery 10/01/23 [facility] 46 [place] [address] Specialist Optometry 10/01/23 documented as of this encounter
--- OUTSIDE RECORDS SUMMARY | 2024-07-31 09:58 | XMS_ITS | Encounter Summary ---
Author Organization [facility] Address [address] [place] [address] Care Team Providers Care Utility Gelatin Maker Name Role Phone Teressa Solis DO Primary Care Pro vider Unavailable Mina Pretty DO Primary Care Provider Shweta Cronin MD Primary Care Provider Ora Diaz MD Primary Care Prov ider Jl Mendez MD Unavailable [phone] Jannette Boudreaux MD Unavailable [phone] Tenisha Mendieta PA-C Unavailable Julio Monk PA-C Unavailable Luis Armando Eller MD Unavailable [phone] Jayesh Pineda MD Unavailable Kelsi Tejada MD Unavailable Unavailable Pretty Le MD Unavailable Vesta Michael PA-C Unavailable [phone] [facility] Unavailable [phone] Encounter Details Date Type Department Care Team Description 12/30/2016 Hospital Medical Records 4 [place] [address] Social History Tobacco Use Types Packs/Day Years Used Date Smoking Tobacco: Never Smokeless Tobacco: Never Alcohol Use Standard Drinks/Week Comments No 0 (1 standard drink = 0.6 oz pur e alcohol) Education Answer Date Recorded What is the highest level of school you have completed or the highest degree you have received? 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, LABEL STAMPER, CHANDRAKANT) 06/14/2020 Sex Assigned at Date Recorded [...] on filedocumented in this encounter Care Teams Utility Gelatin Maker Relationship Specialty Start Date End Date Teressa Solis DO PCP - General Internal Medicine 12/18/13 09/15/20 Mina Pretty DO PCP - General Internal Medicine 09/16/20 1 Shweta Tellez MD PCP - General Internal Medicine 01/12/21 10/10/21 Hiwot Couch, Ora Kelly MD 4 [place] [address] PCP - General Internal Medicine 10/11/21 Jl Mendez MD [address] [place] [address] Dr Montiel [address] [place] [address] Specialist Cardiovascular Disease 10/13/21 Jannette Boudreaux MD [address] [address] Surgeon Neurosurgery 04/07/22 Tenisha Mendieta PA-C [address] [address] Specialist Neurosurgery 04/07/22 Julio Monk PA-C 175 [facility] [address] [place] [address] Specialist Neurosurgery 04/07/22 Luis Armando Eller MD [address] [facility] 250 [place] [address] Specialist ORTHOPEDIC SURGERY 10/01/23 Jayesh Pineda MD 305 [place] [address] Specialist Endocrinology 10/01/23 Kelsi Tejada MD 305 [place] [address] Specialist Allergy & Immunology 10/01/23 Pretty Le MD 175 [facility] 200 [place] [address] Specialist Pulmonology 10/01/23 Vesta Michael PA-C 300 [facility] 210 [place] [address] Specialist Vascular Surgery 10/01/23 [facility] 46 [place] [address] Specialist Optometry 10/01/23 documented as of this encounter
--- OUTSIDE RECORDS SUMMARY | 2024-07-31 09:58 | XMS_ITS | Encounter Summary ---
Author Organization [facility] Address [address] [place] [address] Care Team Providers Care Print Support Specialist Name Role Phone Ora Ronquillo MD Primary Care Prov ider Jl Mendez MD Unavailable [phone] Jannette Boudreaux MD Unavailable [phone] Tenisha MendietaC Unavailable [phone] Julio Monk-C Unavailable Luis Armando Eller MD Unavailable [phone] Jayesh Pineda MD Unavailable Kelsi Tejada MD Unavailable Unavailable Pretty Le MD Unavailable Vesta Michael PA-C Unavailable [phone] [facility] Unavailable Reason for Referral * EXTERNAL (Routine) - Authorized/Booked Specialty Diagnoses / Procedures Referred By Contstella castillo Referred To Contact Dermatology Procedures REFERRAL TO DERMATOLOGY Ora Ronquillo MD 444 [place] [address] Ezio Marr 125 [facility] [address] [place] [address] Referral ID Status Reason Start Date Expiration Date V isits Requested Visits Authorized [id number] Authorized/B ooked 08/21/2022 11/21/2022 1 1 Reason for Visit * Reason Onset Date Comments Hydrologic Modeler Feedback 08/21/2022 REFERRAL TO DERM ATOLOGY Encounter Details Date Type Department Care Team Description 08/21/[address] [facility] 444 [place] [address] Ora Ronquillo MD 4 [place] [address] Hydrologic Modeler Feedback (REFERRAL TO DERMATOLOGY) Social History Tobacco Use Types Packs/Day Years Used Date Smoking Tobacco: Never Smokeless Tobacco: Never Alcohol Use Standard Drinks/Week Comments No 0 (1 standard drink = 0.6 oz pur e alcohol) Education Answer Date Recorded What is the highest level of school you have completed or the highest degree you have received? 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, CHIEF INNOVATION OFFICER, CHANDRAKANT) 06/14/2020 Sex Assigned at Date [...] if denied. The pt was referred to [facility] but they don't work with the pt's insurance and the pt needs a new referral. Thank you, Chris documented in this encounter Plan of Treatment Not on file documented as of this encounter Visit Diagnoses Not on filedocumented in this encounter Care Teams Print Support Specialist Relationship Specialty Start Date End Date Ora Ronquillo MD 444 [place] [address] PCP - General Internal Medicine 10/11/21 Jl Mendez MD [address] [place] [address] Dr Mont[address] [place] [address] Specialist Cardiovascular Disease 10/13/21 Jannette Boudreaux MD 175 [facility] 300 [place] [address] Surgeon Neurosurgery 04/07/22 Tenisha Mendieta PA-C [address] [address] Specialist Neurosurgery 04/07/22 Julio Monk PA-C 175 [facility] 300 [place] [address] Specialist Neurosurgery 04/07/22 Luis Armando Eller MD 175 [facility] 250 [place] [address] Specialist ORTHOPEDIC SURGERY 10/01/23 Jayesh Pineda MD 305 [place] [address] Specialist Endocrinology 10/01/23 Kelsi Tejada MD 305 [place] [address] Specialist Allergy & Immunology 10/01/23 Pretty Le MD 175 [facility] [address] [place] [address] Specialist Pulmonology 10/01/23 Vesta Michael PA-C 300 [facility] 210 [place] [address] Specialist Vascular Surgery 10/01/23 [facility] 46 [place] [address] Specialist Optometry 10/01/23 documented as of this encounter
--- OUTSIDE RECORDS SUMMARY | 2024-07-31 09:58 | XMS_ITS | Encounter Summary ---
Author Organization [facility] Address [address] [place] [address] Care Team Providers Care Earth Mover Name Role Phone Teressa Solis DO Primary Care Pro vider Unavailable Mina Pretty DO Primary Care Provider Ailyn Shweta Pretty MD Primary Care Provider Ora Diaz MD Primary Care Prov ider Jl Mendez MD Unavailable Jannette Boudreaux MD Unavailable [phone] Tenisha Mendieta PA-C Unavailable Julio Monk PA-C Unavailable Luis Armando Eller MD Unavailable [phone] Jayesh Pineda MD Unavailable Kelsi Tejada MD Unavailable Unavailable Pretty Le MD Unavailable Vesta Michael PA-C Unavailable [facility] Unavailable Encounter Details Date Type Department Care Team Description 06/01/2020 Payloader Machine Operator Report Medical Records 4 [place] [address] Abstract, Provider Social History Tobacco Use Types [...] on filedocumented in this encounter Care Teams Earth Mover Relationship Specialty Start Date End Date Teressa Solis DO PCP - General Internal Medicine 12/18/13 09/15/20 Mina Pretty DO PCP - General Internal Medicine 09/16/20 Shweta Boucher MD PCP - General Internal Medicine 01/12/21 10/10/21 Ora Ronquillo MD [address] [place] [address] PCP - General Internal Medicine 10/11/21 Jl Mendez MD [address] [place] [address] Dr [address] [place] [address] Specialist Cardiovascular Disease 10/13/21 Jannette Boudreaux MD [address] [address] Surgeon Neurosurgery 04/07/22 Tenisha Mendieta PA-C [address] [address] Specialist Neurosurgery 04/07/22 Julio Monk PA-C 175 [facility] [address] [place] [address] Specialist Neurosurgery 04/07/22 Luis Armando Eller MD [address] [address] Specialist ORTHOPEDIC SURGERY 10/01/23 Jayesh Pineda MD [address] [place] [address] Specialist Endocrinology 10/01/23 Kelsi Tejada MD 305 [place] [address] Specialist Allergy & Immunology 10/01/23 Pretty Le MD 175 [facility] [address] [place] [address] Specialist Pulmonology 10/01/23 Vesta Michael PA-C 300 [facility] 210 [place] [address] Specialist Vascular Surgery 10/01/23 [facility] 46 [place] [address] Specialist Optometry 10/01/23 documented as of this encounter
--- OUTSIDE RECORDS SUMMARY | 2024-07-31 09:58 | XMS_ITS | Encounter Summary ---
Author Organization [facility] Address [address] [place] [address] Care Team Providers Care Track Moving Machine Operator Name Role Phone Teressa Solis DO Primary Care Pro vider Unavailable Mina Pretty DO Primary Care Provider Shweta Cronin MD Primary Care Provider Ora Diaz MD Primary Care Prov ider Jl Mendez MD Unavailable [phone] Jannette Boudreaux MD Unavailable [phone] Tenisha Mendieta PA-C Unavailable Julio Monk PA-C Unavailable Luis Armando Eller MD Unavailable [phone] Jayesh Pineda MD Unavailable Kelsi Tejada MD Unavailable Unavailable Pretty Le MD Unavailable Vesta Michael PA-C Unavailable [facility] Unavailable Reason for Visit * Reason Comments E-prescribe Rx Request Encounter Details Date Type Department Care Team Description 07/05/2020 Refill Medicine/Pediatrics [address] [phone] Teressa Solis DO E-prescribe Rx Request Social [...] 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, MEDICARE COORDINATOR, CHANDRAKANT) 06/14/2020 Sex Assigned at Date [...] N/A Patients current insurance carrier is: Payor: [employer] FFS / Plan: [employer] [facility] [place] / Product Type: MEDICAID RISK documented in this encounter Plan of Treatment Not on file documented as of this encounter Visit Diagnoses Not on filedocumented in this encounter Care Teams Track Moving Machine Operator Relationship Specialty Start Date End Date Teressa Solis DO PCP - General Internal Medicine 12/18/13 09/15/20 Mina Pretty DO PCP - General Internal Medicine 09/16/20 Shweta Boucher MD PCP - General Internal Medicine 01/12/21 10/10/21 Ora Ronquillo MD 444 [place] [address] PCP - General Internal Medicine 10/11/21 Jl Mendez MD [address] [place] [address] Dr Mont[address] [place] [address] Specialist Cardiovascular Disease 10/13/21 Jannette Boudreaux MD [address] [address] Surgeon Neurosurgery 04/07/22 Tenisha Mendieta PA-C [address] [address] Specialist Neurosurgery 04/07/22 Julio Monk PA-C 175 [facility] [address] [place] [address] Specialist Neurosurgery 04/07/22 Luis Armando Eller MD [address] [address] Specialist ORTHOPEDIC SURGERY 10/01/23 Jayesh Pineda MD 305 [place] [address] Specialist Endocrinology 10/01/23 Kelsi Tejada MD 305 [place] [address] Specialist Allergy & Immunology 10/01/23 Pretty Le MD 175 [facility] [address] [place] [address] Specialist Pulmonology 10/01/23 Vesta Michael PA-C 300 [facility] 210 [place] [address] Specialist Vascular Surgery 10/01/23 [facility] [address] [place] [address] Specialist Optometry 10/01/23 documented as of this encounter
--- OUTSIDE RECORDS SUMMARY | 2024-07-31 09:58 | XMS_ITS | Encounter Summary ---
Author Organization [facility] Address [address] [place] [address] Care Team Providers Care Renewable Energy Engineer Name Role Phone Ora Ronquillo MD Primary Care Prov ider Jl Mendez MD Unavailable Jannette Boudreaux MD Unavailable [phone] Tenisha Mendieta PA-C Unavailable [phone] Julio Monk PA-C Unavailable [phone] Luis Armando Eller MD Unavailable [phone] Jayesh Pineda MD Unavailable Kelsi Tejada MD Unavailable Unavailable Pretty Le MD Unavailable Vesta Michael PA-C Unavailable [facility] Unavailable [phone] Reason for Visit * Reason Onset Date Comments Wound Infection 01/18/2023 Pt feels she vini ht have a wound infection in the area of her Minor surgery Encounter Details Date Type Department Care Team Description 01/18/2023 Telephone General Surgery - [place] 175 [facility] [address] [place] [address] Unruly Ferrera MD [address] [address] Wound Infection (Pt feels she [...] 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, COMMUNICATIONS OPERATOR, CHANDRAKANT) 06/14/2020 Sex Assigned at Date [...] on filedocumented in this encounter Care Teams Renewable Energy Engineer Relationship Specialty Start Date End Date Ora Ronquillo MD [address] [place] [address] PCP - General Internal Medicine 10/11/21 Jl Mendez MD [address] [place] [address] [place] [address] Specialist Cardiovascular Disease 10/13/21 Jannette Boudreaux MD 175 [facility] 300 [place] [address] Surgeon Neurosurgery 04/07/22 Tenisha Mendieta PA-C 175 [facility] 300 [place] [address] Specialist Neurosurgery 04/07/22 Julio Monk PA-C 175 [facility] 300 [place] [address] Specialist Neurosurgery 04/07/22 Luis Armando Eller MD [address] [address] Specialist ORTHOPEDIC SURGERY 10/01/23 Jayesh Pineda MD 305 [place] [address] Specialist Endocrinology 10/01/23 Kelsi Tejada MD 305 [place] [address] Specialist Allergy & Immunology 10/01/23 Pretty Le MD 175 [facility] 200 [place] [address] Specialist Pulmonology 10/01/23 Vesta Michael PA-C 300 [facility] 210 [place] [address] Specialist Vascular Surgery 10/01/23 [facility] 46 [place] [address] Specialist Optometry 10/01/23 documented as of this encounter
--- OUTSIDE RECORDS SUMMARY | 2024-07-31 09:58 | XMS_ITS | Encounter Summary ---
Author Organization [facility] Address [address] [place] [address] Care Team Providers Care Breaker Operator Name Role Phone Teressa Solis DO Primary Care Pro vider Unavailable Mina Pretty DO Primary Care Provider Ailyn Shweta Pretty MD Primary Care Provider Ora Diaz MD Primary Care Prov ider Jl Mendez MD Unavailable [phone] Jannette Boudreaux MD Unavailable [phone] Tenisha Mendieta PA-C Unavailable [phone] Julio Monk PA-C Unavailable Luis Armando Eller MD Unavailable [phone] Jayesh Pineda MD Unavailable Kelsi Tejada MD Unavailable Unavailable Pretty Le MD Unavailable Vesta Michael PA-C Unavailable [phone] [facility] Unavailable Encounter Details Date Type Department Care Team Description 10/11/2015 Director Supply Chain Report Medical Records 444 [place] [address] Wilfredo Tena MD Social History Tobacco Use [...] on filedocumented in this encounter Care Teams Breaker Operator Relationship Specialty Start Date End Date Teressa Solis DO PCP - General Internal Medicine 12/18/13 09/15/20 Mina Pretty DO PCP - General Internal Medicine 09/16/20 Shweta Boucher MD PCP - General Internal Medicine 01/12/21 10/10/21 Ora Ronquillo MD [address] [place] [address] PCP - General Internal Medicine 10/11/21 Jl Mendez MD [address] [place] [address] Specialist Cardiovascular Disease 10/13/21 Jannette Boudreaux MD [address] [address] Surgeon Neurosurgery 04/07/22 Tenisha Mendieta PA-C [address] [address] Specialist Neurosurgery 04/07/22 Julio Monk PA-C [address] [address] Specialist Neurosurgery 04/07/22 Luis Armando Eller MD [address] [address] Specialist ORTHOPEDIC SURGERY 10/01/23 Jayesh Pineda MD 305 [place] [address] Specialist Endocrinology 10/01/23 Kelsi Tejada MD 305 [place] [address] Specialist Allergy & Immunology 10/01/23 Pretty Le MD 175 [facility] [address] [place] [address] Specialist Pulmonology 10/01/23 Vesta Michael PA-C 300 [facility] 210 [place] [address] Specialist Vascular Surgery 10/01/23 [facility] 46 [place] [address] Specialist Optometry 10/01/23 documented as of this encounter
--- OUTSIDE RECORDS SUMMARY | 2024-07-31 09:58 | XMS_ITS | Encounter Summary ---
Author Organization [facility] Address [address] [place] [address] Care Team Providers Care Trade Mark Examiner Name Role Phone Ora Ronquillo MD Primary Care Prov ider Jl Mendez MD Unavailable Jannette Boudreaux MD Unavailable [phone] Tenisha MendietaC Unavailable Julio Monk-C Unavailable Luis Armando Eller MD Unavailable [phone] Jayesh Pineda MD Unavailable Kelsi Tejada MD Unavailable Unavailable Pretty Le MD Unavailable Vesta Michael PA-C Unavailable [phone] [facility] Unavailable [phone] Encounter Details Date Type Department Care Team Description 06/19/2023 SCAN [facility] 175 [facility] [address] [place] [address] Danielle Soni APRN Social History [...] 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, GAS MAKER, CHANDRAKANT) 06/14/2020 Sex Assigned at Date Recorded Female 08/03/2020 10:16 PM EDT Job Start Date Occupation Industry Not on file Not on file Not on file documented as of this encounter Plan of Treatment Not on file documented as of this encounter Visit Diagnoses Not on filedocumented in this encounter Care Teams Trade Mark Examiner Relationship Specialty Start Date End Date Ora Ronquillo MD [address] [place] [address] PCP - General Internal Medicine 10/11/21 Jl Mendez MD [address] [place] [address] Dr Montiel [address] [place] [address] Specialist Cardiovascular Disease 10/13/21 Jannette Boudreaux MD [address] [address] Surgeon Neurosurgery 04/07/22 Tenisha Mendieta PA-C [address] [address] Specialist Neurosurgery 04/07/22 Julio Monk PA-C [address] [address] Specialist Neurosurgery 04/07/22 Luis Armando Eller MD [address] [address] Specialist ORTHOPEDIC SURGERY 10/01/23 Jayesh Pineda MD 305 [place] [address] Specialist Endocrinology 10/01/23 Kelsi Tejada MD 305 [place] [address] Specialist Allergy & Immunology 10/01/23 Pretty Le MD 175 [facility] 200 [place] [address] Specialist Pulmonology 10/01/23 Vesta Michael PA-C 300 [facility] [address] [place] [address] Specialist Vascular Surgery 10/01/23 [facility] 46 [place] [address] Specialist Optometry 10/01/23 documented as of this encounter
--- OUTSIDE RECORDS SUMMARY | 2024-07-31 09:58 | XMS_ITS | Encounter Summary ---
Author Organization [facility] [place] [facility] Address [address] [place] [address] Care Team Providers Care Sweatband Separator Name Role Phone Teressa Solis DO Primary Care Pro vider Unavailable Mina Pretty DO Primary Care Provider Shweta Cronin MD Primary Care Provider Ora Diaz MD Primary Care Prov ider Jl Mendez MD Unavailable Jannette Boudreaux MD Unavailable [phone] Tenisha Mendieta PA-C Unavailable Julio Monk PA-C Unavailable Luis Armando Eller MD Unavailable [phone] Jayesh Pineda MD Unavailable Kelsi Tejada MD Unavailable Unavailable Pretty Le MD Unavailable Vesta Michael PA-C Unavailable [facility] Unavailable Reason for Visit * Reason Onset Date Comments Faxed Order 11/03/2016 Encounter Details Date Type Department Care Team Description 11/03/2016 Telephone Adult [address] [address] Teressa Solis DO Faxed Order [...] 2:13 PM EDT Faxed orders received from [facility] Physical Therapy, please sign and fax back to [phone]. documented in this encounter Plan of Treatment Not on file documented as of this encounter Visit Diagnoses Not on filedocumented in this encounter Care Teams Sweatband Separator Relationship Specialty Start Date End Date Teressa Solis, PCP - General Internal Medicine 12/18/13 09/15/20 Mina Pretty DO PCP - General Internal Medicine 09/16/20 Shweta Boucher MD PCP - General Internal Medicine 01/12/21 10/10/21 Ora Ronquillo MD [address] [place] [address] PCP - General Internal Medicine 10/11/21 Jl Mendez MD [address] [place] [address] Dr Mont[address] [place] [address] Specialist Cardiovascular Disease 10/13/21 Jannette Boudreaux MD [address] [address] Surgeon Neurosurgery 04/07/22 Tenisha Mendieta PA-C [address] [address] Specialist Neurosurgery 04/07/22 Julio Monk PA-C [address] [address] Specialist Neurosurgery 04/07/22 Luis Armando Eller MD 175 [facility] [address] [place] [address] Specialist ORTHOPEDIC SURGERY 10/01/23 Jayesh Pineda MD 305 [place] [address] Specialist Endocrinology 10/01/23 Kelsi Tejada MD 305 [place] [address] Specialist Allergy & Immunology 10/01/23 Pretty Le MD 175 [facility] [address] [place] [address] Specialist Pulmonology 10/01/23 Vesta Michael PA-C 300 [facility] [address] [place] [address] Specialist Vascular Surgery 10/01/23 [facility] 46 [place] [address] Specialist Optometry 10/01/23 documented as of this encounter
--- OUTSIDE RECORDS SUMMARY | 2024-07-31 09:58 | XMS_ITS | Clinical Summary ---
Author Organization [facility] Address [address] [place] [address] Care Team Providers Care Core Composer Feeder Name Role Phone Ora Sweeney MD Primary [...] CMS/HCC V28) 01/30/2022 Diabetes mellitus (CMS/HCC V24, CMS/[facility] V28) Assessment & Plan (06/12/2024 4:05 PM [...] on echo study from 08/2021 Pulmonary eosinophilia ([facility] V24) 07/14/2021 Hyperparathyroidism ([facility] V24) 03/09/2021 Diabetes mellitus type 2, co ntrolled, without complications ([facility] V24, [facility] V28) 02/16/2021 Assessment & Plan (01/24/2024 2:02 [...] Future Anxiety and depression 06/14/2020 Overview (12/16/2023): [facility] psychiatry Asthma, moderate persistent 05/10/2020 Overview (12/16/2023): [...] requirements Supply letter has been sent to [facility] Return to clinic in 1 [...] 9:30 AM EDT Nutrition Internal Medicine - [address] [phone] Controlled type 2 diabetes mellitus without complication, without long-term current use of insulin ([facility] V24, [facility] V28) (Primary Dx); Morbid obesity (CMS/[facility] V24, CMS/HCC V28) 07/22/2024 Telephone Adult Medicine [address] [phone] Ora Naylor MD Fever; Generalized Body Aches; Nausea 07/21/2024 8:40 AM EDT Office Visit Gastroenterology - [address] [phone] Alivia Dominguez NP Rectal bleeding (Primary Dx); History of adenomatous polyp of colon; Gastroesophageal reflux disease without esophagitis; Family history of colon cancer in mother 07/21/2024 Telephone Gastroenterology - [place] 175 [facility] [address] [facility] [address] [place] [phone] Alivia Dominguez NP 07/14/2024 Telephone Adult Medicine [address] [phone] Ora Naylor MD notes 07/09/2024 3:20 PM EDT Anesthesia Event [facility] OR [address] [place] [phone] Lázaro Franco MD Spencer, Mark A, MD 07/09/2024 3:00 PM EDT - 07/09/2024 4:30 PM EDT Surgery [facility] OR [address] [place] [phone] Heirberto Rodriguez MD CYSTOSCOPY, LEFT URETEROSCOPY, LASER LITHOTRIPSY, STENT [[id number] (CPT??)] 07/09/2024 1:04 PM EDT - 07/09/2024 6:29 PM EDT Hospital Encounter [facility] OR [address] [place] [phone] Heriberto Rodriguez MD Discharge Disposition: Home or Self Care 07/09/2024 9:30 AM EDT Office Visit Endocrinology [address] [phone] Jayesh Pineda MD Type 2 diabetes mellitus with other specified complication, without long-term current use of insulin (CMS/HCC V24, CMS/HCC V28) (Primary Dx); Hyperparathyroidism (CMS/HCC V24); Hypothyroidism, unspecified type 07/09/2024 7:15 AM EDT - 07/09/2024 11:59 PM EDT Hospital Encounter [facility] Xray [address] [place] [phone] Pain Discharge Disposition: Home or Self Care 07/04/2024 Lab Requisition [facility] Lab 299 [facility] [place] [phone] Isabel Gray PA Dysuria 06/30/2024 2:25 PM EDT - 06/30/2024 9:42 PM EDT Emergency [facility] Emergency [address] [place] [phone] Nephrolithiasis (Primary Dx); Urinary tract infection without hematuria, site unspecified Discharge Disposition: Home or Self Care 06/30/2024 10:30 AM EDT Office Visit Orthopedic Surgery [facility] 160 175 [facility] 160 [place] [phone] Luis Armando Eller MD Post-operative state (Primary Dx); S/P left rotator cuff repair 06/30/2024 Telephone Adult [address] [phone] Ora Naylor MD Abdominal Pain; Urinary Frequency 06/24/2024 5:47 PM EDT - 06/24/2024 7:28 PM EDT Emergency [facility] Emergency [address] [place] [phone] Franki Reese MD Lower GI bleed (Primary Dx) Discharge Disposition: Home or Self Care 06/24/2024 Telephone Adult [address] [phone] Belia Kim MA Rectal Bleeding; Earache 06/12/2024 8:00 AM EDT Office Visit Adult [address] [phone] Ora Naylor MD Neck mass (Primary Dx); Type 2 diabetes mellitus with other specified complication, without long-term current use of insulin (CMS/HCC V24, CMS/HCC V28); Screening for depression 06/09/2024 1:00 PM EDT Consult Bariatric Surgery [facility] 175 [facility] 120 [place] [phone] [place] MD Class 3 severe obesity due to excess calories with serious comorbidity and body mass index (BMI) of 50.0 to 59.9 in adult ([facility] V24, [facility] V28) (Primary Dx) 06/09/2024 Telephone Adult Medicine [address] [phone] Ora Naylor MD chest mass 06/05/2024 9:45 AM EDT Office Visit Orthopedic [facility] 250 175 [facility] 250 [place] [phone] Duke Dunn DPM Controlled type 2 diabetes with neuropathy ([facility] V24, [facility] V28) (Primary Dx); PVD (peripheral vascular disease) ([facility] V24); Pain in both feet; Difficulty walking; Dermatophytosis, nail 06/04/2024 11:45 AM EDT Office Visit Orthopedic [facility] 160 175 [facility] 160 [place] [phone] Luis Armando Eller MD S/P left rotator cuff repair (Primary Dx) 05/05/2024 4:30 PM EST Office Visit Adult [address] [phone] Chuck Felix MD Sore throat (Primary Dx); Loss of voice 05/05/2024 Telephone Adult [address] [phone] Ora Naylor MD Sore Throat (/) from [...] Date Site/Laterality Comments KNEE ARTHROSCOPY Right PROCEDURE: UT ARTHROSCOPY KNEE DIAGNOSTIC W/WO SYNOVIAL BX SPX WISDOM TOOTH EXTRACTION PROCEDURE: HISTORICAL WISDOM TEETH EXTRACTION TONSILLECTOMY PROCEDURE: HISTORICAL TONSILLECTOMY; COMMENT: and adenoids SECTION PROCEDURE: HISTORICAL DELIVERY OTHER SURGICAL HISTORY PROCEDURE: UT BIOPSY THYROID PERCUTANEOUS CORE NEEDLE COLONOSCOPY 12/10/2012 PROCEDURE: HISTORICAL COLONOSCOPY; COMMENT: normal; repeat in 3 yrs. sig. hyperplastic polyp OTHER SURGICAL HISTORY PROCEDURE: CYSTOSCOPY/SURG, URETHRA/BLAD NECK; COMMENT: sling procedure for stress incontinence OTHER SURGICAL HISTORY 08/25/2015 Right PROCEDURE: UT EXCISION NAIL MATRIX PERMANENT REMOVAL; COMMENT: right hallux Dr. Rangel COLONOSCOPY 01/31/2016 PROCEDURE: HISTORICAL COLONOSCOPY; COMMENT: 3 small polyps removed- dist.asc =tubular adenoma x 1; other nl tissue. COLONOSCOPY 09/29/2019 PROCEDURE: HISTORICAL COLONOSCOPY; COMMENT: 5 mm ascending colon polyp: Tubular adenoma. UPPER GASTROINTESTINAL ENDOSCOPY 09/29/2019 PROCEDURE: UT UPPER GI ENDOSCOPY PERFORMED; COMMENT: Visually normal on PPI treatment. ESOPHAGOGASTRODUODENOSCOPY 09/22/2021 PROCEDURE: UT EGD TRANSORAL BIOPSY SINGLE/MULTIPLE; COMMENT: EGD including biopsy normal OTHER SURGICAL HISTORY PROCEDURE: HISTORY OTHER; COMMENT: Maxillofacial surgery EXCISION BENIGN SKIN LESION TRUNK / ARM / LEG PROCEDURE: UT EXCISION TUMOR SOFT TISSUE BACK/FLANK SUBQ <3CM; [...] Shingles DX:Shingles Diabetes mellitus (CMS/HCC V 24, [facility] V28) DX:Diabetes mellitus (HCC) HLD (hyperlipidemia) 11/21/2021 DX:HLD (hyp erlipidemia) VIRGIE on CPAP DX:VIRGIE on CPAP Depression DX:Depression Overactive bladder DX:Overactive bladder Obesity with alveolar hypove ntilation ([facility] V24, [facility] V28) DX:Obesity with alveolar hypoventilation (HCC) Morbid obesity with BMI of 4 0.0-44.9, adult ([facility] V24, [facility] V28) DX:Morbid obesity wit h BMI of 40.0-44.9, adult ([facility]) Asthma-chronic obstructive p ulmonary disease overlap syndrome ([facility] V24, [facility] V28) 01/30/2022 DX:Asthma-chronic obstructiv e pulmonary disease overlap syndrome ([facility]) Glaucoma Kidney stone on left side 06/2024 Dry skin BILATERAL LEGS/ USES PRESCRIBED CREAMS Adverse effect of anesthesia Shortness of breath Joint pain Family History Medical History Relation Name Comments Breast cancer Aunt 1 maternal x 1 Ovarian cancer Aunt 2 maternal x 6 6 maternal au nts also with ov, uterine ca Glaucoma Brother x 2 Coronary artery disease Father [place] a ge 68, HTN, Diabetes, cataract, glaucoma [...] for your loved ones. For example, child psychometrist or elderly care for an older adult? [...] AM EDT Office Visit Orthopedic Surgery - [place] [phone] [phone] Duke Dunn DPM [address] [address] 08/21/2024 8:30 AM EDT Appointment [facility] Endoscopy [address] [place] [phone] Dena Carrasco MD 175 [facility] 200 [place] [address] 08/22/2024 1:30 PM EDT Office Visit Obstetrics & Gynecology - [facility] [address] [place] [phone] Nguyen Crespo, KHURRAM [address] [place] [address] 09/08/2024 11:15 AM EDT Office Visit Endocrinology [address] [phone] Jayesh Pineda MD [address] [place] [address] 09/22/2024 8:45 AM EDT Office Visit Pulmonolgy - [place] [address] [phone] Pretty Le MD [address] [address] 10/01/2024 7:30 AM EDT Office Visit Adult Medicine [address] [phone] Paula Garnica PA [address] [place] [address] 12/05/2024 11:00 AM EDT Office Visit Orthopedic Surgery [address] [phone] Genny Arreguin PA [address] [place] [address] 12/09/2024 9:00 AM EDT Nutrition Internal Medicine [address] [phone] Bruna Caballero, RD [address] [place] [phone] 12/12/2024 8:30 AM EDT Office Visit Adult Medicine [address] [phone] Ora Sweeney MD [address] [place] [phone] Health Maintenance Due Date Last Done Comments [...] this topic Medical Devices Implanted Type Area Open Soaper Tender Device Identifier Shelf Expiration Date Model / Serial / Lot Stent Uret Stretch Vl 7fr 22-3 - Sn/A - [id number] Implanted:Qty: 1 on 07/09/2024 by Heriberto Rodriguez MD at [facility] Stents Left: Ureter [employer]GYN[employer] Y 11/18/2026 [id number] / N/A / [id number] Procedures Procedure Name Priority Date/Time Associated Diagnosis Comments POCT GLUCOSE BLOOD Routine 07/09/2024 4: 38 PM EDT OXYGEN THERAPY, ADULT Routine 07/09/2024 4:26 PM EDT OXYGEN THERAPY, ADULT Routine 07/09/2024 4:26 PM EDT XR UROGRAM RETROGRADE Routine 07/09/2024 4:17 PM EDT Pain TH AN LMA(NO CHARGE) Routine 07/09/2024 3:59 PM EDT UT CYSTO W URETEROSCOPY/PYELOSCO PY W LITHOTRIPSY INCL [...] - 100 mg/dL 07/09/2024 4:38 PM EDT [facility] Blood Capillary blood specimen / Unknown 07/09/2024 4:38 PM EDT 07/09/2024 4:40 PM EDT us Heriberto Rodriguez MD LAB POINT OF CARE TE ST DOCKED DEVICE UNSOLICITED RESULTS Final Result [facility] ([facility] [address] [place] [address], [place] [phone] * XR Urogram Retrograde (07/09/2024 4:17 PM [...] Signed Date: 07/09/2024 16:34 ET Workstation ID: [id number] Transcribed By: Self Edit Transcribed Date: 07/09/2024 16:33 ET Narrative 07/09/2024 4:34 PM EDT Findings: Digital spot images of the abdomen are submitted from the OR, used intraoperatively by Dr. rhoades during a urological procedure. No radiologist was in attendance. Fluoroscopy was provided in the OR by a cardiopulmonary technologist chief. Cumulative Air Kerma: 6.37 mGy Procedure Note Holley Wheeler MD - 07/09/2024 Findings: Digital spot images of the abdomen are submitted from the OR, usedintraoperatively by Dr. rhoades during a urological procedure. Noradiologist was in attendance. Fluoroscopy was provided in the OR by a cardiopulmonary technologist chief. Cumulative Air Kerma: 6.37 mGy IMPRESSION: Impression: 1. Intraoperative images of the abdomen. 2. Fluoroscopy provided in the OR. [place] -------- FINAL REPORT -------- Dictated By: Holley Wheeler Dictated Date: 07/09/2024 16:33 ET Assigned Physician: Holley Wheeler Reviewed and Electronically Signed By: Holley Wheeler Signed Date: 07/09/2024 16:34 ET Workstation ID: [id number] Transcribed By: Self Edit Transcribed Date: 07/09/2024 [...] Enterococcus faecalis(A) AARON 07/05/2024 9:20 AM EDT [facility] Comment: Edited result: Previously reported as Enterococcus species on 07/04/2024 at 1100 EDT. Other Urine specimen from urethra / Unknown 07/03/2024 07/04/2024 10:23 AM EDT Narrative [facility] ([facility]) [facility] - 07/05/2024 9:20 AM EDT [...] MICROBIOLOGY - GENERAL ORDER ARELIS Final Result [facility] [address] [place] [address], * CT Abdomen Pelvis w Contrast (06/30/2024 [...] and culture (06/30/2024 6:27 PM EDT) Specific [place] Urine 1.009 1.003 - 1.030 LAB URINALYSIS - AUTOMATED METHOD 06/30/2024 7:22 PM [facility] pH, Urine 7.0 5.0 - 8.0 pH LAB URINALYSIS - AUTOMATED METHOD 06/30/2024 7:22 PM [facility] Leukocytes, Urine Large(A) Negative LAB URINALYSIS - AUTOMATED METHOD 06/30/2024 7:22 PM [facility] Nitrite, Urine Negative Negative LAB URINALYSIS - AUTOMATED METHOD 06/30/2024 7:22 PM [facility] Protein, Urine Trace <=Trace mg/dL LAB URINALYSIS - AUTOMATED METHOD 06/30/2024 7:22 PM [facility] Glucose, Urine Negative Negative mg/dL LAB URINALYSIS - AUTOMATED METHOD 06/30/2024 7:22 PM [facility] Ketones, Urine Negative Negative mg/dL LAB URINALYSIS - AUTOMATED METHOD 06/30/2024 7:22 PM [facility] Urobilinogen , Urine 0.2 0.2 - 1.0 mg/dL LAB URINALYSIS - AUTOMATED METHOD 06/30/2024 7:22 PM [facility] Bilirubin, Urine Negative Negative LAB URINALYSIS - AUTOMATED METHOD 06/30[facility]24 7:[facility] Blood, Urine Large(A) Negative LAB URINALYSIS - AUTOMATED METHOD 06/30/2024 7:22 PM [facility] RBC, Urine 9.9(H) 0 - 4 /HPF LAB URINALYSIS - AUTOMATED METHOD 06/30/2024 7:22 PM [facility] WBC, Urine 123.6(H) 0 - 4 /HPF LAB URINALYSIS - AUTOMATED METHOD 06/30/2024 7:22 PM [facility] Squamous Epithelial, Urine 17 0 - 60 /LPF LAB URINALYSIS - AUTOMATED METHOD 06/30/2024 7:22 PM [facility] Bacteria, Urine Moderate(A) Negative /HPF LAB URINALYSIS - AUTOMATED METHOD 06/30/2024 7:22 PM [facility] Hyaline Casts, Urine 3.6(H) 0 - 3 /LPF LAB URINALYSIS - AUTOMATED METHOD 06/30/2024 7:22 PM [facility] Urine Urine specimen obtained by clean catch procedure / Unknown Non-blood Collection / Unknown 06/30/2024 6:27 PM EDT 06/30/2024 7:04 PM EDT us Linda NOVAK LAB URINE ORDERABLES Final Result [facility] [address] [place] [address], * [place] urine culture tube (06/30/2024 6:27 PM EDT) Only the most recent of2 resultswithin the time period is included. [facility] Extra Tube Hold for add-ons. 06/30/2024 9:01 PM EDT [facility] Comment:Auto resulted. Urine Urine specimen obtained by clean catch procedure / Unknown Non-blood Collection / Unknown 06/30/2024 6:27 PM EDT 06/30/2024 7:05 PM EDT Linda NOVAK LAB URINE ORDERABLES Final Result Performing Organization Address City/[facility]/ZIP Co de Phone Number [facility] [address] [place] [address], [place] [phone] * (ABNORMAL) Culture urine (06/30/2024 6:27 PM EDT) [facility] Culture, Urine >100,000 CFU/mL Streptococcus beta-hemolytic Group B(A) 07/01/2024 1:40 PM EDT [facility] Comment: Susceptibility testing is not routinely [...] LAB MICROBIOLOGY - GENERAL ORDERABLES Final Result [facility] [address] [place] [address], [place] [phone] * Type and screen (06/30/2024 1:38 PM EDT) Only the most recent of2 resultswithin the time period is included. [facility] ABO Group A 06/30/2024 2:40 PM EDT [facility] Rh Type Positive 06/30/2024 2:40 PM EDT [facility] Antibody Screen Negative 06/30/2024 2:40 PM EDT [facility] Blood Venous blood specimen / Unknown Venipuncture / Unknown 06/30/2024 1:38 PM EDT 06/30/2024 1:45 PM EDT us Luis Armando Martinez MD LAB BLOOD BANK TEST ORDERABLES Final Result [facility] [address] [place] [address], [place] [phone] * (ABNORMAL) CBC auto differential (06/30/2024 12:29 PM EDT) Only the most recent of2 resultswithin the time period is included. WBC 7.5 4.8 - 10.8 K/mcL LAB HEMETOLOGY METHOD 06/30/2024 1:33 PM EDT [facility] RBC 4.70 3.80 - 4.80 M/mcL LAB HEMETOLOGY METHOD 06/30/2024 1:33 PM EDT [facility] Hemoglobin 13.0 11.5 - 16.0 g/dL LAB HEMETOLOGY METHOD 06/30/2024 1:33 PM EDT [facility] Hematocrit 39.5 35.0 - 47.0 % LAB HEMETOLOGY METHOD 06/30/2024 1:33 PM EDT [facility] MCV 83.9 79.0 - 98.0 FL LAB HEMETOLOGY METHOD 06/30/2024 1:33 PM [facility] MCH 27.6 27.0 - 32.0 pcg LAB HEMETOLOGY METHOD 06/30/2024 1:33 PM EDT [facility] MCHC 32.9 32.0 - 37.0 g/dL LAB HEMETOLOGY METHOD 06/30/2024 1:33 PM [facility] RDW 14.2 11.0 - 15.0 % LAB HEMETOLOGY METHOD 06/30/2024 1:33 PM [facility] Platelets 199 130 - 400 K/mcL LAB HEMETOLOGY METHOD 06/30/2024 1:33 PM [facility] MPV 11.3(H) 7.0 - 11.0 FL LAB HEMETOLOGY METHOD 06/30/2024 1:33 PM [facility] NRBC 0.0 <1.0 % LAB HEMETOLOGY METHOD 06/30/2024 1:33 PM [facility] NRBC Absolute 0.00 <0.10 K/mcL LAB HEMETOLOGY METHOD 06/30/2024 1:33 PM [facility] Neutrophils Relative 68.3 % LAB HEMETOLOGY METHOD 06/30/2024 1:33 PM [facility] Lymphocytes Relative 22.5 % LAB HEMETOLOGY METHOD 06/30/2024 1:33 PM [facility] Monocytes Relative 5.6 % LAB HEMETOLOGY METHOD 06/30/2024 1:33 PM [facility] Eosinophils Relative 2.1 % LAB HEMETOLOGY METHOD 06/30/2024 1:33 PM [facility] Basophils Relative 0.7 % LAB HEMETOLOGY METHOD 06/30/2024 1:33 PM [facility] Immature Granulocytes Relative 0.8 % LAB HEMETOLOGY METHOD 06/30/2024 1:33 PM [facility] Neutrophils Absolute 5.12 1.50 - 7.00 K/mcL LAB HEMETOLOGY METHOD 06/30/2024 1:33 PM [facility] Lymphocytes Absolute 1.69 1.00 - 5.00 K/mcL LAB HEMETOLOGY METHOD 06/30/2024 1:33 PM EDT [facility] Monocytes Absolute 0.42 0.20 - 1.00 K/mcL LAB HEMETOLOGY METHOD 06/30/2024 1:33 PM EDT [facility] Eosinophils Absolute 0.16 0.00 - 0.50 K/mcL LAB HEMETOLOGY METHOD 06/30/2024 1:33 PM EDT [facility] Basophils Absolute 0.05 0.00 - 0.20 K/[facility] LAB HEMETOLOGY METHOD 06/30/2024 1:33 PM EDT [facility] Immature Granulocytes Absolute 0.06(H) 0.00 - 0.03 K/[facility] LAB HEMETOLOGY METHOD 06/30/2024 1:33 PM EDT [facility] Blood Venous blood specimen / Unknown Venipuncture / Unknown 06/30/2024 12:29 PM EDT 06/30/2024 1:17 PM EDT us Luis Armando Martinez MD LAB BLOOD ORDERABLES Final Resu lt [facility] [address] [place] [address], [place] [phone] * (ABNORMAL) Comprehensive metabolic panel (06/30/2024 12:29 PM EDT) Only the most recent of2 resultswithin the time period is included. Sodium 140 133 - 145 mmol/L LAB CHEMISTRY METHOD 06/30/2024 2:14 PM EDT [facility] Potassium 3.8 3.5 - 5.5 mmol/L LAB CHEMISTRY METHOD 06/30/2024 2:14 PM EDT [facility] Chloride 103 96 - 110 mmol/L LAB CHEMISTRY METHOD 06/30/2024 2:14 PM EDT [facility] CO2 27 21 - 32 mmol/L LAB CHEMISTRY METHOD 06/30/2024 2:14 PM [facility] Anion Gap 10 3 - 11 LAB CHEMISTRY METHOD 06/30/2024 2:14 PM [facility] Glucose 274(H) 70 - 100 mg/dL LAB CHEMISTRY METHOD 06/30/2024 2:14 PM [facility] BUN 10 5 - 25 mg/dL LAB CHEMISTRY METHOD 06/30/2024 2:14 PM [facility] Creatinine 0.89 0.50 - 1.10 mg/dL LAB CHEMISTRY METHOD 06/30/2024 2:14 PM [facility] eGFR 72 >=60 mL/min/1. 73m2 LAB CHEMISTRY METHOD 06/30/2024 2:14 PM [facility] Comment:Calculation based on the??Chronic Kidney Disease Epidemiology Collaboration (CKD-EPI) equation refit??without adjustment for race. BUN/Creatinine Ratio 11.2 LAB CHEMISTRY METHOD 06/30/2024 2:14 PM [facility] Calcium 9.3 8.5 - 10.5 mg/dL LAB CHEMISTRY METHOD 06/30/2024 2:14 PM [facility] AST (SGOT) 41 10 - 42 unit/L LAB CHEMISTRY METHOD 06/30/2024 2:14 PM [facility] ALT (SGPT) 64(H) 10 - 60 unit/L LAB CHEMISTRY METHOD 06/30/2024 2:14 PM [facility] Alkaline Phosphatase 182(H) 42 - 121 unit/L LAB CHEMISTRY METHOD 06/30/2024 2:14 PM [facility] Total Protein 7.1 6.0 - 8.0 g/dL LAB CHEMISTRY METHOD 06/30/2024 2:14 PM [facility] Albumin 3.5 3.2 - 5.0 g/dL LAB CHEMISTRY METHOD 06/30/2024 2:14 PM [facility] Total Bilirubin 0.7 0.0 - 1.4 mg/dL LAB CHEMISTRY METHOD 06/30/2024 2:14 PM EDT [facility] Blood Venous blood specimen / Unknown Venipuncture / Unknown 06/30/2024 12:29 PM EDT 06/30/2024 1:17 PM EDT us Luis Armando Martinez MD LAB BLOOD ORDERABLES Final Resu lt [facility] [address] [place] [address], [place] [phone] * XR Shoulder 2+ Views Left (06/30/2024 [...] reflex microscopic (06/24/2024 6:00 PM EDT) Specific [place] Urine 1.015 1.003 - 1.030 LAB URINALYSIS - AUTOMATED METHOD 06/24/2024 6:47 PM EDT [facility] pH, Urine 6.5 5.0 - 8.0 pH LAB URINALYSIS - AUTOMATED METHOD 06/24/2024 6:47 PM EDT [facility] Leukocytes, Urine Moderate(A) Negative LAB URINALYSIS - AUTOMATED METHOD 06/24/2024 6:47 PM EDT [facility] Nitrite, Urine Positive(A) Negative LAB URINALYSIS - AUTOMATED METHOD 06/24/2024 6:47 PM EDT [facility] Protein, Urine Negative <=Trace mg/dL LAB URINALYSIS - AUTOMATED METHOD 06/24/2024 6:47 PM [facility] Glucose, Urine Negative Negative mg/dL LAB URINALYSIS - AUTOMATED METHOD 06/24/2024 6:47 PM [facility] Ketones, Urine Negative Negative mg/dL LAB URINALYSIS - AUTOMATED METHOD 06/24/2024 6:47 PM [facility] Urobilinogen , Urine 0.2 0.2 - 1.0 mg/dL LAB URINALYSIS - AUTOMATED METHOD 06/24/2024 6:47 PM [facility] Bilirubin, Urine Negative Negative LAB URINALYSIS - AUTOMATED METHOD 06/24/2024 6:47 PM [facility] Blood, Urine Trace(A) Negative LAB URINALYSIS - AUTOMATED METHOD 06/24/2024 6:47 PM [facility] RBC, Urine 7.7(H) 0 - 4 /HPF LAB URINALYSIS - AUTOMATED METHOD 06/24/2024 6:47 PM [facility] WBC, Urine 36.6(H) 0 - 4 /HPF LAB URINALYSIS - AUTOMATED METHOD 06/24/2024 6:47 PM [facility] Squamous Epithelial, Urine 23 0 - 60 /LPF LAB URINALYSIS - AUTOMATED METHOD 06/24/2024 6:47 PM [facility] Bacteria, Urine Moderate(A) Negative /HPF LAB URINALYSIS - AUTOMATED METHOD 06/24/2024 6:47 PM [facility] Hyaline Casts, Urine 0.8 0 - 3 /LPF LAB URINALYSIS - AUTOMATED METHOD 06/24/2024 6:47 PM [facility] Urine Urine specimen obtained by clean catch procedure / Unknown Non-blood Collection / Unknown 06/24/2024 6:00 PM EDT 06/24/2024 6:32 PM EDT Result [facility] Luis Armando Martinez MD LAB URINE ORDERABLES Final Resu lt [facility] ([facility]) [facility] [address] [place] [address], [place] [phone] * External Ultrasound Report (05/20/2024 12:53 PM EDT) Anatomical Region Laterality Modality Ultrasound Result [facility] Historical Provider IMG US PROCEDURES Final R esult * POC rapid strep A manually resulted (05/05/2024 4:59 PM EST) [facility] Rapid Strep A Screen POC Negative Negative Swab Structure of anterior portion of neck / Unknown 05/05/2024 4:59 PM EST Result [facility] Chuck Felix MD POINT OF CARE TEST ENTER/EDIT OR DERABLES Edited Result - Final * (ABNORMAL) Hemoglobin A1c (11/26/2023) [facility] Hemoglobin A1C 7.4(A) <=6.5 % Blood Venous blood specimen / Unknown Result [facility] Historical Provider LAB BLOOD ORDERABLES Soni l Result * Urine Albumin Creatinine Ratio (10/04/2023) [facility] Urine Albumin Creatinine Ratio Abstracted Result [facility] Historical Provider HEALTH MAINTENANCE Final Result * (ABNORMAL) Lipid panel (10/04/2023) [facility] LDL/HDL Ratio 4 0 - 4 Triglycerides 173(A) 0 - 150 mg/dL Cholesterol 146 0 - 200 mg/dL HDL 39(A) >=40 mg/dL LDL Cholesterol 73 0 - 100 mg/dL Blood Venous blood specimen / Unknown Result [facility] Historical Provider LAB BLOOD ORDERABLES Soni l Result * Falls Risk Assessment (10/01/2023) [facility] Falls Risk Assessment Abstracted [facility] Provider [facility] Final Result * Depression Screening (10/01/2023) Pathologist [facility] Depression Screening Abstracted [facility] Provider [facility] Final Result * Diabetes Foot Exam (10/01/2023) Pathologist [facility] Diabetes: Annual Foot Exam Abstracted [facility] Final Result * SCREENING MAMMOGRAPHY BI [...] Cervical Cancer Screening: HPV (04/11/2021) Pathologist [facility] Cervical Cancer Screening: HPV No interpreta tion,abstr [...] classified as having normal bone density. The [facility] Department of Internal Medicine recommends using National [...] beclassified as having normal bone density. The [facility] Department of Internal Medicine recommendsusing National Osteoporosis [...] PROCEDURES Final Result * Colonoscopy (09/29/2019) Pathologist [facility] Colonoscopy No interpreta tion,abstr acted Anatomical Region Laterality Modality Other Result [facility] Historical Provider HEALTH MAINTENANCE Final Result * Hepatitis C Screening (09/22/2014) [facility] Hepatitis C Screening Abstracted Historical Provider HEALTH MAINTENANCE Final Result from Last 3 Months or Most Recently Relevant to Health Maintenance Insurance [employer] [place] [address] Care Teams Core Composer Feeder Relationship Specialty Start Date End Date Ora Sweeney MD [address] [place] [address] PCP - General Internal Medicine 01/09/24
--- OUTSIDE RECORDS SUMMARY | 2024-07-31 09:59 | XMS_ITS | Encounter Summary ---
Author Organization [facility] Address [address] [place] [address] Care Team Providers Care Hair Dresser Name Role Phone Mina Pretty DO Primary Care Provider Shweta Cronin MD Primary Care Provider Ora Diaz MD Primary Care Prov ider Jl Mendez MD Unavailable [phone] Jannette Boudreaux MD Unavailable [phone] Tenisha Mendieta PA-C Unavailable Julio Monk PA-C Unavailable Luis Armando Eller MD Unavailable [phone] Jayesh Pineda MD Unavailable Kelsi Tejada MD Unavailable Unavailable Pretty Le MD Unavailable Vesta Michael PA-C Unavailable [phone] [facility] Unavailable [phone] Encounter Details Date Type Department Care Team Description 09/17/2020 Orders Only Internal Medicine - [address], [address] [place] [address] Darrick Schroeder PA-C Dysuria; Constipation, unspecified constipation [...] 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, PROPULSION GENERATOR REPAIRER, CHANDRAKANT) 06/14/2020 Sex Assigned at Date Recorded [...] location documented in this encounter Care Teams Hair Dresser Relationship Specialty Start Date End Date Mina Pretty DO PCP - General Internal Medicine 09/16/20 1 Shweta Tellez MD PCP - General Internal Medicine 01/12/21 10/10/21 Ora Ronquillo MD [address] [place] [address] PCP - General Internal Medicine 10/11/21 Jl Mendez MD [address] [place] [address] [place] [address] Specialist Cardiovascular Disease 10/13/21 Jannette Boudreaux MD [address] [address] Surgeon Neurosurgery 04/07/22 Tenisha Mendieta PA-C 175 [facility] 300 [place] [address] Specialist Neurosurgery 04/07/22 Julio Monk PA-C 175 [facility] [address] [place] [address] Specialist Neurosurgery 04/07/22 Luis Armando Eller MD 175 [facility] 250 [place] [address] Specialist ORTHOPEDIC SURGERY 10/01/23 Jayesh Pineda MD 305 [place] [address] Specialist Endocrinology 10/01/23 Kelsi Tejada MD 305 [place] [address] Specialist Allergy & Immunology 10/01/23 Pretty Le MD 175 [facility] 200 [place] [address] Specialist Pulmonology 10/01/23 Vesta Michael PA-C 300 [facility] 210 [place] [address] Specialist Vascular Surgery 10/01/23 [facility] [address] [place] [address] Specialist Optometry 10/01/23 documented as of this encounter
--- OUTSIDE RECORDS SUMMARY | 2024-07-31 09:59 | XMS_ITS | Encounter Summary ---
Author Organization [facility] Address [address] [place] [address] Care Team Providers Care Window Framer Name Role Phone Teressa Solis DO Primary Care Pro vider Unavailable Mina Pretty DO Primary Care Provider Shweta Cronin MD Primary Care Provider Ora Diaz MD Primary Care Prov ider Jl Mendez MD Unavailable Jannette Boudreaux MD Unavailable [phone] Tenisha Mendieta PA-C Unavailable Julio Monk PA-C Unavailable Luis Armando Eller MD Unavailable [phone] Jayesh Pineda MD Unavailable Kelsi Tejada MD Unavailable Unavailable Pretty Le MD Unavailable Vesta Michael PA-C Unavailable [phone] [facility] Unavailable [phone] Encounter Details Date Type Department Care Team Description 02/22/2018 Patient Care Manager Report Medical Records [address] [place] [address] Narinder Franco MD Social History Tobacco Use [...] on filedocumented in this encounter Care Teams Window Framer Relationship Specialty Start Date End Date Teressa Solis DO PCP - General Internal Medicine 12/18/13 09/15/20 Mina Pretty DO PCP - General Internal Medicine 09/16/20 Shweta Boucher MD PCP - General Internal Medicine 01/12/21 10/10/21 Ora Ronquillo MD [address] [place] [address] PCP - General Internal Medicine 10/11/21 Jl Mendez MD [address] [place] [address] Specialist Cardiovascular Disease 10/13/21 Jannette Boudreaux MD [address] [address] Surgeon Neurosurgery 04/07/22 Tenisha Mendieta PA-C [address] [address] Specialist Neurosurgery 04/07/22 Julio Monk PA-C [address] [address] Specialist Neurosurgery 04/07/22 Luis Armando Eller MD [address] [address] Specialist ORTHOPEDIC SURGERY 10/01/23 Jayesh Pineda MD 305 [place] [address] Specialist Endocrinology 10/01/23 Kelsi Tejada MD 305 [place] [address] Specialist Allergy & Immunology 10/01/23 Pretty Le MD 175 [facility] [address] [place] [address] Specialist Pulmonology 10/01/23 Vesta Michael PA-C 300 [facility] 210 [place] [address] Specialist Vascular Surgery 10/01/23 [facility] [address] [place] [address] Specialist Optometry 10/01/23 documented as of this encounter
--- OUTSIDE RECORDS SUMMARY | 2024-07-31 09:59 | XMS_ITS | Encounter Summary ---
Author Organization [facility] Address [address] [place] [address] Care Team Providers Care Dietary Services Manager Name Role Phone Teressa Solis DO Primary Care Pro vider Unavailable Mina Pretty DO Primary Care Provider Shweta Cronin MD Primary Care Provider Ora Diaz MD Primary Care Prov ider Jl Mendez MD Unavailable Jannette Boudreaux MD Unavailable [phone] Tenisha Mendieta PA-C Unavailable Julio Monk PA-C Unavailable Luis Armando Eller MD Unavailable [phone] Jayesh Pineda MD Unavailable Kelsi Tejada MD Unavailable Unavailable Pretty Le MD Unavailable Vesta Michael PA-C Unavailable [facility] Unavailable [phone] Reason for Visit * Reason Onset Date Comments allergy injection 01/20/2019 Encounter Details Date Type Department Care Team Description 01/20/2019 Telephone Allergy [place] [address] [place] [address] Kelsi Tejada MD allergy injection [...] if fax was recevied with documention, # [phone] documented in this encounter Plan of Treatment Not on file documented as of this encounter Visit Diagnoses Not on filedocumented in this encounter Care Teams Dietary Services Manager Relationship Specialty Start Date End Date Teressa Solis, PCP - General Internal Medicine 12/18/13 09/15/20 Mina Pretty DO PCP - General Internal Medicine 09/16/20 Shweta Boucher MD PCP - General Internal Medicine 01/12/21 10/10/21 Ora Ronquillo MD [address] [place] [address] PCP - General Internal Medicine 10/11/21 Jl Mendez MD [address] [place] [address] [place] [address] Specialist Cardiovascular Disease 10/13/21 Jannette Boudreaux MD [address] [address] Surgeon Neurosurgery 04/07/22 Tenisha Mendieta PA-C [address] [address] Specialist Neurosurgery 04/07/22 Julio Monk PA-C 175 [facility] 300 [place] [address] Specialist Neurosurgery 04/07/22 Luis Armando Eller MD 175 [facility] 250 [place] [address] Specialist ORTHOPEDIC SURGERY 10/01/23 Jayesh Pineda MD 305 [place] [address] Specialist Endocrinology 10/01/23 Kelsi Tejada MD [address] [place] [address] Specialist Allergy & Immunology 10/01/23 Pretty Le MD 175 [facility] 200 [place] [address] Specialist Pulmonology 10/01/23 Vesta Michael PA-C 300 [facility] 210 [place] [phone] Specialist Vascular Surgery 10/01/23 [facility] [address] [place] [address] Specialist Optometry 10/01/23 documented as of this encounter
--- OUTSIDE RECORDS SUMMARY | 2024-07-31 09:59 | XMS_ITS | Encounter Summary ---
Author Organization [facility] Address [address] [place] [address] Care Team Providers Care Filenet P8 Developer Name Role Phone Teressa Solis DO Primary Care Pro vider Unavailable Mina Pretty DO Primary Care Provider Shweta Cronin MD Primary Care Provider Ora Diaz MD Primary Care Prov ider Jl Mendez MD Unavailable [phone] Jannette Boudreaux MD Unavailable [phone] Tenisha Mendieta PA-C Unavailable Julio Monk PA-C Unavailable Luis Armando Eller MD Unavailable [phone] Jayesh Pineda MD Unavailable Kelsi Tejada MD Unavailable Unavailable Pretty Le MD Unavailable Vesta Michael PA-C Unavailable [phone] [facility] Unavailable Encounter Details Date Type Department Care Team Description 03/13/2019 Telephone Allergy [place] 98 [address] [place] [address] Kelsi Tejada MD Social History [...] filedocumented in this encounter Care Teams Filenet P8 Developer Relationship Specialty Start Date End Date Teressa Solis DO PCP - General Internal Medicine 12/18/13 09/15/20 Mina Pretty DO PCP - General Internal Medicine 09/16/20 Shweta Boucher MD PCP - General Internal Medicine 01/12/21 10/10/21 Ora Ronquillo MD [address] [place] [address] PCP - General Internal Medicine 10/11/21 Jl Mendez MD [address] [place] [address] Dr Mont[address] [place] [address] Specialist Cardiovascular Disease 10/13/21 Jannette Boudreaux MD [address] [address] Surgeon Neurosurgery 04/07/22 Tenisha Mendieta PA-C [address] [address] Specialist Neurosurgery 04/07/22 Julio Monk PA-C [address] [address] Specialist Neurosurgery 04/07/22 Luis Armando Eller MD [address] [address] Specialist ORTHOPEDIC SURGERY 10/01/23 Jayesh Pineda MD 305 [place] [address] Specialist Endocrinology 10/01/23 Kelsi Tejada MD 305 [place] [address] Specialist Allergy & Immunology 10/01/23 Pretty Le MD 175 [facility] [address] [place] [address] Specialist Pulmonology 10/01/23 Vesta Michael PA-C 300 [facility] 210 [place] [address] Specialist Vascular Surgery 10/01/23 [facility] [address] [place] [address] Specialist Optometry 10/01/23 documented as of this encounter
--- OUTSIDE RECORDS SUMMARY | 2024-07-31 09:59 | XMS_ITS | Encounter Summary ---
Author Organization [facility] Address [address] [place] [address] Care Team Providers Care Hotel Assistant Manager Name Role Phone Teressa Solis DO Primary Care Pro vider Unavailable Mina Pretty DO Primary Care Provider Shweta Cronin MD Primary Care Provider Ora Diaz MD Primary Care Prov ider Jl Mendez MD Unavailable Jannette Boudreaux MD Unavailable [phone] Tenisha Mendieta PA-C Unavailable [phone] Julio Monk PA-C Unavailable Luis Armando Eller MD Unavailable [phone] Jayesh Pineda MD Unavailable Kelsi Tejada MD Unavailable Unavailable Pretty Le MD Unavailable Vesta Michael PA-C Unavailable [facility] Unavailable [phone] Reason for Visit * Reason Comments E-prescribe Rx Request Encounter Details Date Type Department Care Team Description 07/11/2018 Refill Adult Medicine [address] [id number] Farrah Rodriguez, DONN E-prescribe Rx Request Social [...] THE PATIENT'S LAST APPOINTMENT IN ADULT MEDICINE? [id number] WHEN WAS THE LAST TIME THE PATIENT SAW THEIR PCP? Same as above Does patient have an upcoming appointment? Yes [id number] (THE MEDICATION REQUESTED IS ON THE MED [...] fax? Patients current insurance carrier is: Payor: [employer] FFS / Plan: Receptor / Product Type: MEDICAID RISK documented in this encounter Plan of Treatment Not on file documented as of this encounter Visit Diagnoses Not on filedocumented in this encounter Care Teams Hotel Assistant Manager Relationship Specialty Start Date End Date Teressa Solis DO PCP - General Internal Medicine 12/18/13 09/15/20 Mina Pretty DO PCP - General Internal Medicine 09/16/20 Shweta Boucher MD PCP - General Internal Medicine 01/12/21 10/10/21 Ora Ronquillo MD [address] [place] [address] PCP - General Internal Medicine 10/11/21 Jl Mendez MD [address] [place] [address] Specialist Cardiovascular Disease 10/13/21 Jannette Boudreaux MD [address] [address] Surgeon Neurosurgery 04/07/22 Tenisha Mendieta PA-C [address] [address] Specialist Neurosurgery 04/07/22 Julio Monk PA-C [address] [address] Specialist Neurosurgery 04/07/22 Luis Armando Eller MD [address] [address] Specialist ORTHOPEDIC SURGERY 10/01/23 Jayesh Pineda MD 305 [place] [address] Specialist Endocrinology 10/01/23 Kelsi Tejada MD 305 [place] [address] Specialist Allergy & Immunology 10/01/23 Pretty Le MD 175 [facility] [address] [place] [address] Specialist Pulmonology 10/01/23 Vesta Michael PA-C 300 [facility] 210 [place] [address] Specialist Vascular Surgery 10/01/23 [facility] [address] [place] [address] Specialist Optometry 10/01/23 documented as of this encounter
--- OUTSIDE RECORDS SUMMARY | 2024-07-31 09:59 | XMS_ITS | Encounter Summary ---
Author Organization [facility] Address [address] [place] [address] Care Team Providers Care General Manager Land Department Name Role Phone Ora Ronquillo MD Primary Care Prov ider Jl Mendez MD Unavailable [phone] Jannette Boudreaux MD Unavailable [phone] Tenisha Mendieta PA-C Unavailable [phone] Julio Monk PA-C Unavailable [phone] Luis Armando Eller MD Unavailable [phone] Jayesh Pineda MD Unavailable Kelsi Tejada MD Unavailable Unavailable Pretty Le MD Unavailable Vesta Michael PA-C Unavailable [facility] Unavailable Encounter Details Date Type Department Care Team Description 01/08/2023 Telephone [facility] Medical [facility] 175 [facility] [address] [place] [address] Lorie Moore, DONN 1515 [facility] [place] [address] Social History Tobacco Use Types Packs/Day Years Used Date Smoking Tobacco: Never Smokeless Tobacco: Never Alcohol Use Standard Drinks/Week Comments No 0 (1 standard drink = 0.6 oz pur e alcohol) Education Answer Date Recorded What is the highest level of school you have completed or the highest degree you have received? 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, TECHNICAL DESIGNER, CHANDRAKANT) 06/14/2020 Sex Assigned at Date [...] on filedocumented in this encounter Care Teams General Manager Land Department Relationship Specialty Start Date End Date Ora Ronquillo MD [address] [place] [address] PCP - General Internal Medicine 10/11/21 Jl Mendez MD [address] [place] [address] Dr Montiel [address] [place] [address] Specialist Cardiovascular Disease 10/13/21 Jannette Boudreaux MD [address] [address] Surgeon Neurosurgery 04/07/22 Tenisha Mendieta PA-C [address] [address] Specialist Neurosurgery 04/07/22 Julio Monk PA-C [address] [address] Specialist Neurosurgery 04/07/22 Luis Armando Eller MD 175 [facility] [address] [place] [address] Specialist ORTHOPEDIC SURGERY 10/01/23 Jayesh Pineda MD 305 [place] [address] Specialist Endocrinology 10/01/23 Kelsi Tejada MD 305 [place] [address] Specialist Allergy & Immunology 10/01/23 Pretty Le MD 175 [facility] [address] [place] [address] Specialist Pulmonology 10/01/23 Vesta Michael PA-C 300 [facility] [address] [place] [address] Specialist Vascular Surgery 10/01/23 [facility] [address] [place] [address] Specialist Optometry 10/01/23 documented as of this encounter
--- OUTSIDE RECORDS SUMMARY | 2024-07-31 09:59 | XMS_ITS | Encounter Summary ---
Author Organization [facility] Address [address] [place] [address] Care Team Providers Care Roller Billet Mill Name Role Phone Ora Sweeney MD Primary Care Prov ider Encounter Details Date Type Department Care Team (Late st Contact Info) Description 07/04/2024 Lab Requisition [facility] - Main Lab 299 [facility] [place] [phone] Isabel Gray, PA [address] [place] [address] Dysuria Social History Tobacco Use Types Packs/Day [...] AM EDT Office Visit Orthopedic Surgery - [place] [address] [address] Duke Dunn, BASIL 175 [facility] 250 [place] [address] 08/21/2024 8:30 AM EDT Appointment [facility] Endoscopy [address] [place] [phone] Dena Carrasco MD [address] [address] 08/22/2024 1:30 PM EDT Office Visit Obstetrics & Gynecology - [address] [address] Nguyen Crespo, CNM [address] [place] [address] 09/08/2024 11:15 AM EDT Office Visit Endocrinology [address] [phone] Jayesh Pineda MD 305 [place] [address] 09/22/2024 8:45 AM EDT Office Visit Pulmonolgy - [address] [address] Pretty Le MD [address] [place] [address] 10/01/2024 7:30 AM EDT Office Visit Adult Medicine East [address] [phone] Paula Garnica PA 444 [place] [address] 12/05/2024 11:00 AM EDT Office Visit Orthopedic Surgery [facility] [address] [address] Genny Arreguin PA [address] [address] 12/09/2024 9:00 AM EDT Nutrition Internal Medicine - [address] [place] [address] Bruna Caballero, RD 175 [place] [phone] 12/12/2024 8:30 AM EDT Office Visit Adult [facility] 444 [place] [address] Ora Sweeney MD 444 [place], [place] documented as of this encounter Procedures Procedure Name Priority Date/Time Associated Diagnosis Comments BACTERIAL IDENTIFICATION AND SUSCEPTIBILITY, AEROBIC Routine 07/03/2024 12:00 AM EDT Dysuria documented in this encounter Results * (ABNORMAL) Bacterial identification and susceptibility, aerobic (07/03/2024 12:00 AM EDT) Culture, Bacterial ID and Sensitivity Enterococcus faecalis(A) AARON 07/05/2024 9:20 AM EDT [facility] Comment: Edited result: Previously reported as Enterococcus species on 07/04/2024 at 1100 EDT. Other Urine specimen from urethra / Unknown 07/03/2024 07/04/2024 10:23 AM EDT Narrative [facility] - 07/05/2024 9:20 AM EDT [...] MICROBIOLOGY - GENERAL ORDER ARELIS Final Result [facility] [address] [place] [address], documented in this encounter Visit Diagnoses Diagnosis Dysuria documented in this encounter Additional Health Concerns Assessment Noted Time PHQ-9 Depression Total Score: 0 06/12/19 25 7:16 PM EDT documented as of this encounter Care Teams Roller Billet Mill Relationship Specialty Start Date End Date Ora Sweeney MD [address] [place] [address] PCP - General Internal Medicine 01/09/24 documented as of this encounter
--- OUTSIDE RECORDS SUMMARY | 2024-07-31 09:59 | XMS_ITS | Encounter Summary ---
Author Organization [facility] Address [address] [place] [address] Care Team Providers Care Tape Keller Operator Name Role Phone Teressa Solis DO Primary Care Pro vider Unavailable Mina Pretty DO Primary Care Provider Ailyn Shweta Pretty MD Primary Care Provider UnaOra Randall MD Primary Care Prov ider Jl Mendez MD Unavailable Jannette Boudreaux MD Unavailable [phone] Tenisha Mendieta PA-C Unavailable Julio Monk PA-C Unavailable [phone] Luis Armando Eller MD Unavailable [phone] Jayesh Pineda MD Unavailable Kelsi Tejada MD Unavailable Unavailable Pretty Le MD Unavailable Vesta Michael PA-C Unavailable [phone] [facility] Unavailable [phone] Encounter Details Date Type Department Care Team Description 10/07/2018 [facility] Adult [address] [address] Deborah Addison PA-C Social History [...] 10:42 AM EDTFrom: Ana Luisa House To: Deborha Addison PA-C Sent: 10/07/2018 10:39 AM EDT Subject: Medication Renewal Request Original authorizing provider: VIVIAN Noe would like a refill of the following medications: cetirizine (ZYRTEC) 10 MG tablet [Deborah Addison PA-C] omeprazole (PRILOSEC) 20 MG capsule [Deborah Addison PA-C] Preferred pharmacy: [facility] #[id number] [place] [address] DUANE ONOFRE AT [facility] Comment: Medication renewals requested [...] on filedocumented in this encounter Care Teams Tape Keller Operator Relationship Specialty Start Date End Date Teressa Solis DO PCP - General Internal Medicine 12/18/13 09/15/20 Mina Pretty DO PCP - General Internal Medicine 09/16/20 Shweta Boucher MD PCP - General Internal Medicine 01/12/21 10/10/21 Ora Ronquillo MD [address] [place] [address] PCP - General Internal Medicine 10/11/21 Jl Mendez MD [address] [place] [address] Dr Montiel [address] [place] [address] Specialist Cardiovascular Disease 10/13/21 Jannette Boudreaux MD [address] [address] Surgeon Neurosurgery 04/07/22 Tenisha Mendieta PA-C [address] [address] Specialist Neurosurgery 04/07/22 Julio Monk PA-C [address] [address] Specialist Neurosurgery 04/07/22 Luis Armando Eller MD [address] [address] Specialist ORTHOPEDIC SURGERY 10/01/23 Jayesh Pineda MD 305 [place] [address] Specialist Endocrinology 10/01/23 Kelsi Tejada MD 305 [place] [address] Specialist Allergy & Immunology 10/01/23 Pretty Le MD 175 [facility] 200 [place] [address] Specialist Pulmonology 10/01/23 Vesta Michael PA-C 300 [facility] 210 [place] [address] Specialist Vascular Surgery 10/01/23 [facility] [address] [place] [address] Specialist Optometry 10/01/23 documented as of this encounter
--- OUTSIDE RECORDS SUMMARY | 2024-07-31 09:59 | XMS_ITS | Encounter Summary ---
Author Organization [facility] Address [address] [place] [address] Care Team Providers Care Skate Hop Name Role Phone Geno Cueva MD Primary Care Provider Unavailable Teressa Solis DO Primary Care Pro vider Unavailable Mina Pretty DO Primary Care Provider Ailyn Shweta Pretty MD Primary Care Provider Ora Diaz MD Primary Care Prov ider Jl Mendez MD Unavailable Jannette Boudreaux MD Unavailable [phone] Tenisha Mendieta PA-C Unavailable Julio Monk PA-C Unavailable Luis Armando Eller MD Unavailable [phone] Jayesh Pineda MD Unavailable Kelsi Tejada MD Unavailable Unavailable Pretty Le MD Unavailable Vesta Michael-C Unavailable [phone] [facility] Unavailable Encounter Details Date Type Department Care Team Description 10/01/2013 Orders Only BILLET HEADER - [address] [address] Social History Tobacco Use Types [...] on filedocumented in this encounter Care Teams Skate Hop Relationship Specialty Start Date End Date Geno Cueva MD PCP - General Internal Medicine 06/28/1212/17/13 Teressa Solis DO PCP - General Internal Medicine 12/18/13 09/15/20 Mina Pretty DO PCP - General Internal Medicine 09/16/20 1 Shweta Tellez MD PCP - General Internal Medicine 01/12/21 10/10/21 Ora Ronquillo MD [address] [place] [address] PCP - General Internal Medicine 10/11/21 Jl Mendez MD [address] [place] [address] Dr Montiel [address] [place] [address] Specialist Cardiovascular Disease 10/13/21 Jannette Boudreaux MD [address] [address] Surgeon Neurosurgery 04/07/22 Tenisha Mendieta PA-C [address] [address] Specialist Neurosurgery 04/07/22 Julio Monk PA-C [address] [address] Specialist Neurosurgery 04/07/22 Luis Armando Eller MD [address] [address] Specialist ORTHOPEDIC SURGERY 10/01/23 Jayesh Pineda MD [address] [place] [address] Specialist Endocrinology 10/01/23 Kelsi Tejada MD 305 [place] [address] Specialist Allergy & Immunology 10/01/23 Pretty Le MD 175 [facility] [address] [place] [address] Specialist Pulmonology 10/01/23 Vesta Michael PA-C 300 [facility] 210 [place] [address] Specialist Vascular Surgery 10/01/23 [facility] [address] [place] [address] Specialist Optometry 10/01/23 documented as of this encounter
--- OUTSIDE RECORDS SUMMARY | 2024-07-31 09:59 | XMS_ITS | Encounter Summary ---
Author Organization [facility] Address [address] [place] [address] Care Team Providers Care Hydration Plant Operator Name Role Phone Teressa Solis DO Primary Care Pro vider Unavailable Mina Pretty DO Primary Care Provider Ailyn Shweta Pretty MD Primary Care Provider UnaOra Randall MD Primary Care Prov ider Jl Mendez MD Unavailable [phone] Jannette Boudreaux MD Unavailable [phone] Tenisha Mendieta PA-C Unavailable [phone] Julio Monk PA-C Unavailable Luis Armando Eller MD Unavailable [phone] Jayesh Pineda MD Unavailable Kelsi Tejada MD Unavailable Unavailable Pretty Le MD Unavailable Vesta Michael PA-C Unavailable [facility] Unavailable [phone] Reason for Referral * Non VLAD (Routine) - Closed Specialty Diagnoses / Procedures Referred By Janie castillo Referred To Contact Vascular Surgery Procedures REFERRAL TO VASCULAR SURGERY (IN NETWORK) Teressa Solis DO [address] [place] [address] Jeff Ogden MD 300 [facility] [address] [place] [address] Referral ID Status Reason Start Date Expiration Date Visits Re quested Visits Authorized [id number] Closed 11/18/2018 11/18/2019 1 1 Reason for Visit * Reason Onset Date Comments Umbrella Frame Maker Feedback 11/18/2018 Dr. Ogden Encounter Details Date Type Department Care Team Description 11/18/2018 Telephone Adult [address] [address] Teressa Solis DO Umbrella Frame Maker Feedback (Dr. Ogden) Social History Tobacco Use [...] today? Payor: [employer] FFS / Plan: [employer] / Product Type: MEDICAID RISK Effective [...] insurance must be obtained and registered in [facility] or their referral can not be processed. Is this a retro request? NO. If yes for what date of service do you need the retro referral? N/A Who is calling to request this referral? The Patient If the caller is not the patient, what is their name? N/A Ask the patient WHO referred them to this specialty: Patient saw Allyn Vidales at [facility] for the problem and was told if [...] Is this visit:Initial Visit Address of Specialist: [address] [place] [address], [address] , [place] [address] Phone # of Specialist: [phone] Fax #: (if applicable): [phone] Does patient have an appointment scheduled?: NO Date of appointment- (including a retro-request): Is this appointment related to: Not MVA, WC or Surgery related documented in this encounter Plan of Treatment Not on file documented as of this encounter Visit Diagnoses Not on filedocumented in this encounter Care Teams Hydration Plant Operator Relationship Specialty Start Date End Date Teressa Solis DO PCP - General Internal Medicine 12/18/13 09/15/20 Mina Pretty DO PCP - General Internal Medicine 09/16/20 Shweta Boucher MD PCP - General Internal Medicine 01/12/21 10/10/21 Ora Ronquillo MD [address] [place] [address] PCP - General Internal Medicine 10/11/21 Jl Mendez MD [address] [place] [address] Dr Mont[address] [place] [address] Specialist Cardiovascular Disease 10/13/21 Jannette Boudreaux MD [address] [address] Surgeon Neurosurgery 04/07/22 Tenisha Mendieta PA-C [address] [address] Specialist Neurosurgery 04/07/22 Juilo Monk PA-C [address] [address] Specialist Neurosurgery 04/07/22 Luis Armando Eller MD [address] [address] Specialist ORTHOPEDIC SURGERY 10/01/23 Jayesh Pineda MD 305 [place] [address] Specialist Endocrinology 10/01/23 Kelsi Tejada MD 305 [place] [address] Specialist Allergy & Immunology 10/01/23 Pretty Le MD 175 [facility] 200 [place] [address] Specialist Pulmonology 10/01/23 Vesta Michael PA-C 300 [facility] 210 [place] [address] Specialist Vascular Surgery 10/01/23 [facility] [address] [place], [place] [address] Specialist Optometry 10/01/23 documented as of this encounter
--- OUTSIDE RECORDS SUMMARY | 2024-07-31 09:59 | XMS_ITS | Encounter Summary ---
Author Organization [facility] Address [address] [place] [address] Care Team Providers Care Senior Marketing Engineer Name Role Phone Teressa Solis DO Primary Care Pro vider Unavailable Mina Pretty DO Primary Care Provider Shweta Cronin MD Primary Care Provider Ora Diaz MD Primary Care Prov ider Jl Mendez MD Unavailable Jannette Boudreaux MD Unavailable [phone] Tenisha Mendieta PA-C Unavailable Julio Monk PA-C Unavailable Luis Armando Eller MD Unavailable [phone] Jayesh Pineda MD Unavailable Kelsi Tejada MD Unavailable Unavailable Pretty Le MD Unavailable Vesta Michael PA-C Unavailable [phone] [facility] Unavailable [phone] Encounter Details Date Type Department Care Team Description 12/21/2017 Health Policy Nurse Report Medical Records [address] [place] [address] Narinder Franco MD Social History Tobacco Use [...] filedocumented in this encounter Care Teams Senior Marketing Engineer Relationship Specialty Start Date End Date Teressa Solis DO PCP - General Internal Medicine 12/18/13 09/15/20 Mina Pretty DO PCP - General Internal Medicine 09/16/20 Shweta Boucher MD PCP - General Internal Medicine 01/12/21 10/10/21 Ora Ronquillo MD [address] [place] [address] PCP - General Internal Medicine 10/11/21 Jl Mendez MD [address] [place] [address] Specialist Cardiovascular Disease 10/13/21 Jannette Boudreaux MD [address] [address] Surgeon Neurosurgery 04/07/22 Tenisha Mendieta PA-C [address] [address] Specialist Neurosurgery 04/07/22 Julio Monk PA-C [address] [address] Specialist Neurosurgery 04/07/22 Luis Armando Eller MD [address] [address] Specialist ORTHOPEDIC SURGERY 10/01/23 Jayesh Pineda MD 305 [place] [address] Specialist Endocrinology 10/01/23 Kelsi Tejada MD 305 [place] [address] Specialist Allergy & Immunology 10/01/23 Pretty Le MD 175 [facility] [address] [place] [address] Specialist Pulmonology 10/01/23 Vesta Michael PA-C 300 [facility] 210 [place] [address] Specialist Vascular Surgery 10/01/23 [facility] 46 [place] [address] Specialist Optometry 10/01/23 documented as of this encounter
--- OUTSIDE RECORDS SUMMARY | 2024-07-31 09:59 | XMS_ITS | Encounter Summary ---
Author Organization [facility] Address [address] [place] [address] Care Team Providers Care Disaster Recovery Consultant Name Role Phone Teressa Solis DO Primary Care Pro vider Unavailable Mina Pretty DO Primary Care Provider Shweta Cronin MD Primary Care Provider Ora Diaz MD Primary Care Prov ider Jl Mendez MD Unavailable [phone] Jannette Boudreaux MD Unavailable [phone] Tenisha Mendieta PA-C Unavailable [phone] Julio Monk PA-C Unavailable Luis Armando Eller MD Unavailable [phone] Jayesh Pineda MD Unavailable Kelsi Tejada MD Unavailable Unavailable Pretty Le MD Unavailable Vesta Michael PA-C Unavailable [facility] Unavailable Encounter Details Date Type Department Care Team Description 12/31/2018 Old Medical Records Medical Records [address] [place] [address] Abstract, Provider Social History Tobacco Use Types [...] on filedocumented in this encounter Care Teams Disaster Recovery Consultant Relationship Specialty Start Date End Date Teressa Solis DO PCP - General Internal Medicine 12/18/13 09/15/20 Mina Pretty DO PCP - General Internal Medicine 09/16/20 Shweta Boucher MD PCP - General Internal Medicine 01/12/21 10/10/21 Ora Ronquillo MD [address] [place] [address] PCP - General Internal Medicine 10/11/21 Jl Mendez MD [address] [place] [address] [place] [address] Specialist Cardiovascular Disease 10/13/21 Jannette Boudreaux MD [address] [address] Surgeon Neurosurgery 04/07/22 Tenisha Mendieta PA-C [address] [address] Specialist Neurosurgery 04/07/22 Julio Monk PA-C [address] [address] Specialist Neurosurgery 04/07/22 Luis Armando Eller MD [address] [address] Specialist ORTHOPEDIC SURGERY 10/01/23 Jayesh Pineda MD 305 [place] [address] Specialist Endocrinology 10/01/23 Kelsi Tejada MD 305 [place] [address] Specialist Allergy & Immunology 10/01/23 Pretty Le MD 175 [facility] [address] [place] [address] Specialist Pulmonology 10/01/23 Vesta Michael PA-C 300 [facility] [address] [place] [address] Specialist Vascular Surgery 10/01/23 [facility] [address] [place] [address] Specialist Optometry 10/01/23 documented as of this encounter
--- OUTSIDE RECORDS SUMMARY | 2024-07-31 09:59 | XMS_ITS | Encounter Summary ---
Author Organization [facility] Address [address] [place] [address] Care Team Providers Care Senior Account Clerk Name Role Phone Ora Sweeney MD Primary Care Prov ider Reason for Visit * Reason Onset Date Comments notes 07/14/2024 Encounter Details Date Type Department Care Team (Late st Contact Info) Description 07/14/2024 Telephone Adult Medicine [address] [address] Ora Sweeney MD [address] [place] [address] notes Social History Tobacco Use Types Packs/Day [...] 2:14 PM EDT Jordyn notes faxed to [facility] architecture intern office 07/16/2024 * Ora Sweeney MD - 07/16/2024 12:40 PM EDT I think what they want is the notes from the visit on June 12, last time I saw her. She is already established with [facility] * Kelly Reyes MA - 07/16/2024 10:[address] Mi I don't see a referral pending for an architecture intern. Did we actually refer them out. Notes on 06/12/2024 have not been completed. Please advise * Harish Epstein - 07/14/2024 4:25 PM EDT Call from [facility] allergists office , requesting last office visit notes from June 2024 to be sent to their facility - specifically addressing the mass on the patients chest attention to Rosio documented in this encounter Plan of Treatment Upcoming Encounters Date Type Department Care Team (Late st Contact Info) Description 08/07/2024 9:30 AM EDT Office Visit Orthopedic Surgery - [place] 250 175 [facility] 250 [place] [address] Duke Dunn DPM 175 [facility] 250 [place] [address] 08/21/2024 8:30 AM EDT Appointment [facility] Endoscopy [address] [place] [address] Dena Carrasco MD 175 [facility] 200 [place] [address] 08/22/2024 1:30 PM EDT Office Visit Obstetrics & Gynecology - [facility] 271 [place] [address] Nguyen Crespo, CNM [address] [place] [address] 09/08/2024 11:15 AM EDT Office Visit Endocrinology [address] [phone] Jayesh Pineda MD 305 [place] [address] 09/22/2024 8:45 AM EDT Office Visit Pulmonolgy [facility] [address] [phone] Pretty Le MD [address] [address] 10/01/2024 7:30 AM EDT Office Visit Adult Medicine [address] [phone] Paula Garnica PA 444 [place] [address] 12/05/2024 11:00 AM EDT Office Visit Orthopedic Surgery [facility] [address] [address] Genny Arreguin PA [address] [address] 12/09/2024 9:00 AM EDT Nutrition Internal Medicine [address] [address] Bruna Caballero, LESLY 175 [place] [address] 12/12/2024 8:30 AM EDT Office Visit Adult Medicine [address] [phone] Ora Sweeney MD 4 [place] [address] documented as of this encounter Visit Diagnoses Not on filedocumented in this encounter Additional Health Concerns Assessment Noted Time PHQ-9 Depression Total Score: 0 06/12/19 25 7:16 PM EDT documented as of this encounter Care Teams Senior Account Clerk Relationship Specialty Start Date End Date Ora Sweeney MD [address] [place] [address] PCP - General Internal Medicine 01/09/24 documented as of this encounter
--- OUTSIDE RECORDS SUMMARY | 2024-07-31 09:59 | XMS_ITS | Encounter Summary ---
Author Organization [facility] Address [address] [place] [address] Care Team Providers Care Break Up Worker Name Role Phone Teressa Solis DO Primary Care Pro vider Unavailable Mina Pretty DO Primary Care Provider Shweta Cronin MD Primary Care Provider Ora Diaz MD Primary Care Prov ider Jl Mendez MD Unavailable Jannette Boudreaux MD Unavailable [phone] Tenisha Mendieta PA-C Unavailable Julio Monk PA-C Unavailable Luis Armando Eller MD Unavailable [phone] Jayesh Pineda MD Unavailable Kelsi Tejada MD Unavailable Unavailable Pretty Le MD Unavailable Vesta Michael PA-C Unavailable [facility] Unavailable Encounter Details Date Type Department Care Team Description 05/19/2014 Orders Only Adult Medicine [address] [phone] Teressa Solis DO Dyslipidemia (Primary Dx) Social [...] - 200 mg/dL 12/28/2014 1:44 PM EDT [facility] TRIGLYCERIDES 192(H) 0 - 150 mg/dL 12/28/2014 1:44 PM EDT [facility] HDL CHOLESTEROL 52 >40 mg/dL 5 1:44 PM EDT [facility] LDL CALCULATED 72 0 - 100 mg/dL 12/28/2014 1:44 PM EDT [facility] TC-HDLC RATIO 3 0.0 - 4.4 mg/dL 12/28/2014 1:44 PM EDT [facility] 12/28/2014 11:0 6 AM EDT 12/28/2014 11:06 AM EDT Teressa Grace DO LAB Performing Organization Address City/State/[facility] [[email or web address]] Co de Phone Number [facility] documented in this encounter Visit Diagnoses Diagnosis Dyslipidemia- Primary Other and unspecified hyperlipidemia documented in this encounter Care Teams Break Up Worker Relationship Specialty Start Date End Date Teressa Solis DO PCP - General Internal Medicine 12/18/13 09/15/20 Mina Pretty DO PCP - General Internal Medicine 09/16/20 1 Shweta Tellez MD PCP - General Internal Medicine 01/12/21 10/10/21 Ora Ronquillo MD 444 [place] [address] PCP - General Internal Medicine 10/11/21 Jl Mendez MD [address] [place] [address] [place] [address] Specialist Cardiovascular Disease 10/13/21 Jannette Boudreaux MD 175 [facility] 300 [place] [address] Surgeon Neurosurgery 04/07/22 Tenisha Mendieta PA-C [address] [facility] 300 [place] [address] Specialist Neurosurgery 04/07/22 Julio Monk PA-C 175 [facility] 300 [place] [address] Specialist Neurosurgery 04/07/22 Luis Armando Eller MD [address] [address] Specialist ORTHOPEDIC SURGERY 10/01/23 Jayesh Pineda MD 305 [place] [address] Specialist Endocrinology 10/01/23 Kelsi Tejada MD 305 [place] [address] Specialist Allergy & Immunology 10/01/23 Pretty Le MD 175 [facility] 200 [place] [phone] Specialist Pulmonology 10/01/23 Vesta Michael PA-C 300 [facility] 210 [place] [address] Specialist Vascular Surgery 10/01/23 [facility] 46 [place] [address] Specialist Optometry 10/01/23 documented as of this encounter
--- OUTSIDE RECORDS SUMMARY | 2024-07-31 09:59 | XMS_ITS | Encounter Summary ---
Author Organization [facility] Address [address] [place] [address] Care Team Providers Care Professor Of Literature Name Role Phone Teressa Solis DO Primary Care Pro vider Unavailable Mina Pretty DO Primary Care Provider Ailyn Shweta Pretty MD Primary Care Provider Ora Diaz MD Primary Care Prov ider Jl Mendez MD Unavailable Jannette Boudreaux MD Unavailable [phone] Tenisha Mendieta PA-C Unavailable Julio Monk PA-C Unavailable Luis Armando Eller MD Unavailable [phone] Jayesh Pineda MD Unavailable Kelsi Tejada MD Unavailable Unavailable Pretty Le MD Unavailable Vesta Michael PA-C Unavailable [phone] [facility] Unavailable Reason for Visit * Reason Onset Date Comments Provider Call Back 01/02/2018 Encounter Details Date Type Department Care Team Description 01/02/2018 Telephone [facility] [address] Bala Vazquez OD Provider Call Back Social [...] machine to call the eye dept at [facility] * Telephone Encounter - Sarah Jung [...] on filedocumented in this encounter Care Teams Professor Of Literature Relationship Specialty Start Date End Date Teressa Solis DO PCP - General Internal Medicine 12/18/13 09/15/20 Mina Pretty DO PCP - General Internal Medicine 09/16/20 1 Shweta Tellez MD PCP - General Internal Medicine 01/12/21 10/10/21 Ora Ronquillo MD [address] [place] [address] PCP - General Internal Medicine 10/11/21 Jl Mendez MD [address] [place] [address] [place] [address] Specialist Cardiovascular Disease 10/13/21 Jannette Boudreaux MD 175 [facility] 300 [place] [address] Surgeon Neurosurgery 04/07/22 Tenisha Mendieta PA-C 175 [facility] 300 [place] [address] Specialist Neurosurgery 04/07/22 Julio Monk PA-C 175 [facility] 300 [place] [address] Specialist Neurosurgery 04/07/22 Luis Armando Eller MD 175 [facility] 250 [place] [address] Specialist ORTHOPEDIC SURGERY 10/01/23 Jayesh Pineda MD 305 [place] [address] Specialist Endocrinology 10/01/23 Kelsi Tejada MD 305 [place] [address] Specialist Allergy & Immunology 10/01/23 Pretty Le MD 175 [facility] 200 [place] [address] Specialist Pulmonology 10/01/23 Vesta Michael PA-C 300 [facility] 210 [place] [address] Specialist Vascular Surgery 10/01/23 [facility] 46 [place] [address] Specialist Optometry 10/01/23 documented as of this encounter
--- OUTSIDE RECORDS SUMMARY | 2024-07-31 09:59 | XMS_ITS | Encounter Summary ---
Author Organization [facility] Address [address] [place] [address] Care Team Providers Care Box Builder Name Role Phone Shweta Tellez MD Primary Care Provider Ora Diaz MD Primary Care Prov ider Jl Mendez MD Unavailable Jannette Boudreaux MD Unavailable [phone] Tenisha Mendieta PA-C Unavailable [phone] Julio Monk PA-C Unavailable [phone] Luis Armando Eller MD Unavailable [phone] Jayesh Pineda MD Unavailable Kelsi Tejada MD Unavailable Unavailable Pretty Le MD Unavailable Vesta Michael PA-C Unavailable [phone] [facility] Unavailable Reason for Visit * Reason Comments E-prescribe Rx Request Encounter Details Date Type Department Care Team Description 04/07/2021 Refill Adult Medicine [address] [id number] Teressa Solis DO E-prescribe Rx Request Social [...] 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, SOFTWARE DEVELOPER MANAGER, CHANDRAKANT) 06/14/2020 Sex Assigned at Date [...] N/A Patients current insurance carrier is: Payor: [employer] FFS / Plan: [employer] / Product Type: MEDICAID RISK documented in this encounter Plan of Treatment Not on file documented as of this encounter Visit Diagnoses Not on filedocumented in this encounter Care Teams Box Builder Relationship Specialty Start Date End Date Shweta Tellez MD PCP - General Internal Medicine 01/12/21 10/10/21 Ora Ronquillo MD [address] [place] [address] PCP - General Internal Medicine 10/11/21 Jl Mendez MD [address] [place] [address] Dr Montiel [address] [place] [address] Specialist Cardiovascular Disease 10/13/21 Jannette Boudreaux MD [address] [address] Surgeon Neurosurgery 04/07/22 Tenisha Mendieta PA-C [address] [address] Specialist Neurosurgery 04/07/22 Julio Monk PA-C 175 [facility] [address] [place] [address] Specialist Neurosurgery 04/07/22 Luis Armando Eller MD [address] [address] Specialist ORTHOPEDIC SURGERY 10/01/23 Jayesh Pineda MD [address] [place] [address] Specialist Endocrinology 10/01/23 Kelsi Tejada MD 305 [place] [address] Specialist Allergy & Immunology 10/01/23 Pretty Le MD 175 [facility] [address] [place] [address] Specialist Pulmonology 10/01/23 Vesta Michael PA-C 300 [facility] 210 [place] [address] Specialist Vascular Surgery 10/01/23 [facility] 46 [place], [place] 0962089 Specialist Optometry 10/01/23 documented as of this encounter
--- OUTSIDE RECORDS SUMMARY | 2024-07-31 09:59 | XMS_ITS | Encounter Summary ---
Author Organization [facility] Address [address] [place] [address] Care Team Providers Care Senior Communications Engineer Name Role Phone Teressa Solis DO Primary Care Pro vider Unavailable Mina Pretty DO Primary Care Provider Shweta Cronin MD Primary Care Provider Ora Diaz MD Primary Care Prov ider Jl Mendez MD Unavailable [phone] Jannette Boudreaux MD Unavailable [phone] Tenisha Mendieta PA-C Unavailable Julio Monk PA-C Unavailable [phone] Luis Armando Eller MD Unavailable [phone] Jayesh Pineda MD Unavailable Kelsi Tejada MD Unavailable Unavailable Pretty Le MD Unavailable Vesta Michael PA-C Unavailable [facility] Unavailable [phone] Reason for Visit * Reason Comments E-prescribe Rx Request Encounter Details Date Type Department Care Team Description 07/17/2018 Refill Adult Medicine [address] [id number] Teressa Solis DO E-prescribe Rx Request Social [...] N/A Patients current insurance carrier is: Payor: [employer] FFS / Plan: [employer] ALLIANCE / Product Type: MEDICAID RISK documented in this encounter Plan of Treatment Not on file documented as of this encounter Visit Diagnoses Not on filedocumented in this encounter Care Teams Senior Communications Engineer Relationship Specialty Start Date End Date Teressa Solis DO PCP - General Internal Medicine 12/18/13 09/15/20 Mina Pretty DO PCP - General Internal Medicine 09/16/20 Shweta Boucher MD PCP - General Internal Medicine 01/12/21 10/10/21 Ora Ronquillo MD [address] [place] [address] PCP - General Internal Medicine 10/11/21 Jl Mendez MD [address] [place] [address] Dr [address] [place] [address] Specialist Cardiovascular Disease 10/13/21 Jannette Boudreaux MD [address] [address] Surgeon Neurosurgery 04/07/22 Tenisha Mendieta PA-C [address] [address] Specialist Neurosurgery 04/07/22 Julio Monk PA-C 175 [facility] 300 [place] [address] Specialist Neurosurgery 04/07/22 Luis Armando Eller MD [address] [address] Specialist ORTHOPEDIC SURGERY 10/01/23 Jayesh Pineda MD 305 [place] [address] Specialist Endocrinology 10/01/23 Kelsi Tejada MD 305 [place] [address] Specialist Allergy & Immunology 10/01/23 Pretty Le MD 175 [facility] [address] [place] [address] Specialist Pulmonology 10/01/23 Vesta Michael PA-C 300 [facility] 210 [place] [address] Specialist Vascular Surgery 10/01/23 [facility] [address] [place] [address] Specialist Optometry 10/01/23 documented as of this encounter
--- OUTSIDE RECORDS SUMMARY | 2024-07-31 09:59 | XMS_ITS | Encounter Summary ---
Author Organization [facility] Address [address] [place] [address] Care Team Providers Care Weatherstrip Machine Operator Name Role Phone Teressa Solis DO Primary Care Pro vider Unavailable Mina Pretty DO Primary Care Provider Shweta Cronin MD Primary Care Provider Ora Diaz MD Primary Care Prov ider Jl Mendez MD Unavailable Jannette Boudreaux MD Unavailable [phone] Tenisha Mendieta PA-C Unavailable Julio Monk PA-C Unavailable Luis Armando Elelr MD Unavailable [phone] Jayesh Pineda MD Unavailable Kelsi Tejada MD Unavailable Unavailable Pretty Le MD Unavailable Vesta Michael PA-C Unavailable [phone] [facility] Unavailable Encounter Details Date Type Department Care Team Description 04/01/2019 Walk In Clinic Visit Medical Records [address] [place] [address] [place], [facility] [address] [place] [address] Social History Tobacco Use Types [...] Medicine 01/12/21 10/10/21 Ora Ronquillo MD [address] [place] [address] PCP - General Internal Medicine 10/11/21 Jl Mendez MD [address] [place] [address] Dr Mont[address] [place] [address] Specialist Cardiovascular Disease 10/13/21 Jannette Boudreaux MD [address] [address] Surgeon Neurosurgery 04/07/22 Tenisha Mendieta PA-C [address] [address] Specialist Neurosurgery 04/07/22 Julio Monk PA-C [address] [address] Specialist Neurosurgery 04/07/22 Luis Armando Eller MD [address] [address] Specialist ORTHOPEDIC SURGERY 10/01/23 Jayesh Pineda MD 305 [place] [address] Specialist Endocrinology 10/01/23 Kelsi Tejada MD 305 [place] [address] Specialist Allergy & Immunology 10/01/23 Pretty Le MD 175 [facility] [address] [place] [address] Specialist Pulmonology 10/01/23 Vesta Michael PA-C 300 [facility] 210 [place] [address] Specialist Vascular Surgery 10/01/23 [facility] 46 [place] [address] Specialist Optometry 10/01/23 documented as of this encounter
--- OUTSIDE RECORDS SUMMARY | 2024-07-31 09:59 | XMS_ITS | Encounter Summary ---
Author Organization [facility] Address [address] [place] [address] Care Team Providers Care Director Child Name Role Phone Ora Ronquillo MD Primary Care Prov ider lJ Mendez MD Unavailable [phone] Jannette Boudreaux MD Unavailable [phone] Tenisha Mendieta PA-C Unavailable Julio MonkC Unavailable Luis Armando Eller MD Unavailable [phone] Jayesh Pineda MD Unavailable Kelsi Tejada MD Unavailable Unavailable Pretty Le MD Unavailable Vesta Michael PA-C Unavailable [phone] [facility] Unavailable [phone] Encounter Details Date Type Department Care Team Description 11/14/2022 Plating Foreman Report Medical Records [address] [place] [address] Jensen Nam MD Social History Tobacco Use Types Packs/Day Years Used Date Smoking Tobacco: Never Smokeless Tobacco: Never Alcohol Use Standard Drinks/Week Comments No 0 (1 standard drink = 0.6 oz pur e alcohol) Education Answer Date Recorded What is the highest level of school you have completed or the highest degree you have received? 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, COMPOSITE SCIENCE TEACHER, CHANDRAKANT) 06/14/2020 Sex Assigned at Date [...] filedocumented in this encounter Care Teams Director Child Relationship Specialty Start Date End Date Ora Ronquillo MD [address] [place] [address] PCP - General Internal Medicine 10/11/21 Jl Mendez MD [address] [place] [address] Dr [address] [place] [address] Specialist Cardiovascular Disease 10/13/21 Jannette Boudreaux MD 175 [facility] 300 [place] [address] Surgeon Neurosurgery 04/07/22 Tenisha Mendieta PA-C [address] [address] Specialist Neurosurgery 04/07/22 Julio Monk PA-C 175 [facility] 300 [place] [address] Specialist Neurosurgery 04/07/22 Luis Armando Eller MD [address] [address] Specialist ORTHOPEDIC SURGERY 10/01/23 Jayesh Pineda MD 305 [place] [address] Specialist Endocrinology 10/01/23 Kelsi Tejada MD 305 [place] [address] Specialist Allergy & Immunology 10/01/23 Pretty Le MD 175 [facility] 200 [place] [address] Specialist Pulmonology 10/01/23 Vesta Michael PA-C 300 [facility] 210 [place] [address] Specialist Vascular Surgery 10/01/23 [facility] 46 [place] [address] Specialist Optometry 10/01/23 documented as of this encounter
--- OUTSIDE RECORDS SUMMARY | 2024-07-31 09:59 | XMS_ITS | Encounter Summary ---
Author Organization [facility] Address [address] [place] [address] Care Team Providers Care Adult Education Professional Name Role Phone Teressa Solis DO Primary Care Pro vider Unavailable Mina Pretty DO Primary Care Provider Shweta Cronin MD Primary Care Provider Ora Diaz MD Primary Care Prov ider Jl Mendez MD Unavailable [phone] Jannette Boudreaux MD Unavailable [phone] Tenisha Mendieta PA-C Unavailable [phone] Julio Monk PA-C Unavailable [phone] Luis Armando Eller MD Unavailable [phone] Jayesh Pineda MD Unavailable Kelsi Tejada MD Unavailable Unavailable Pretty Le MD Unavailable Vesta Michael PA-C Unavailable [facility] Unavailable [phone] Encounter Details Date Type Department Care Team Description 02/12/2019 Telephone Allergy [place] [address] [place] [address] Kelsi Tejada MD Social History [...] filedocumented in this encounter Care Teams Adult Education Professional Relationship Specialty Start Date End Date Teressa Solis DO PCP - General Internal Medicine 12/18/13 09/15/20 Mina Pretty DO PCP - General Internal Medicine 09/16/20 Shweta Boucher MD PCP - General Internal Medicine 01/12/21 10/10/21 Ora Ronquillo MD [address] [place] [address] PCP - General Internal Medicine 10/11/21 Jl Mendez MD [address] [place] [address] Dr Mont[address] [place] [address] Specialist Cardiovascular Disease 10/13/21 Jannette Boudreaux MD [address] [address] Surgeon Neurosurgery 04/07/22 Tenisha Mendieta PA-C [address] [address] Specialist Neurosurgery 04/07/22 Julio Monk PA-C [address] [address] Specialist Neurosurgery 04/07/22 Luis Armando Eller MD [address] [address] Specialist ORTHOPEDIC SURGERY 10/01/23 Jayesh Pineda MD 305 [place] [address] Specialist Endocrinology 10/01/23 Kelsi Tejada MD 305 [place] [address] Specialist Allergy & Immunology 10/01/23 Pretty Le MD 175 [facility] [address] [place] [address] Specialist Pulmonology 10/01/23 Vesta Michael PA-C 300 [facility] [address] [place] [address] Specialist Vascular Surgery 10/01/23 [facility] 46 [place] [address] Specialist Optometry 10/01/23 documented as of this encounter
--- OUTSIDE RECORDS SUMMARY | 2024-07-31 09:59 | XMS_ITS | Encounter Summary ---
Author Organization [facility] Address [address] [place] [address] Care Team Providers Care Demo Event Specialist Name Role Phone Teressa Solis DO Primary Care Pro vider Unavailable Mina Pretty DO Primary Care Provider Shweta Cronin MD Primary Care Provider Ora Diaz MD Primary Care Prov ider Jl Mendez MD Unavailable Jannette Boudreaux MD Unavailable [phone] Tenisha Mendieat PA-C Unavailable [phone] Julio Monk PA-C Unavailable Luis Armando Eller MD Unavailable [phone] Jayesh Pineda MD Unavailable Kelsi Tejada MD Unavailable Unavailable Pretty Le MD Unavailable Vesta Michael PA-C Unavailable [phone] [facility] Unavailable [phone] Encounter Details Date Type Department Care Team Description 01/21/2014 Vibrating Screen Operator Report Medical Records [address] [place] [address] Narinder Franco MD Social History Tobacco Use [...] on filedocumented in this encounter Care Teams Demo Event Specialist Relationship Specialty Start Date End Date Teressa Solis DO PCP - General Internal Medicine 12/18/13 09/15/20 Mina Pretty DO PCP - General Internal Medicine 09/16/20 Shweta Boucher MD PCP - General Internal Medicine 01/12/21 10/10/21 Oar Ronquillo MD [address] [place] [address] PCP - General Internal Medicine 10/11/21 Jl Mendez MD [address] [place] [address] Specialist Cardiovascular Disease 10/13/21 Jannette Boudreaux MD [address] [address] Surgeon Neurosurgery 04/07/22 Tenisha Mendieta PA-C [address] [address] Specialist Neurosurgery 04/07/22 Julio Monk PA-C [address] [address] Specialist Neurosurgery 04/07/22 Luis Armando Eller MD [address] [address] Specialist ORTHOPEDIC SURGERY 10/01/23 Jayesh Pineda MD 305 [place] [address] Specialist Endocrinology 10/01/23 Kelsi Tejada MD 305 [place] [address] Specialist Allergy & Immunology 10/01/23 Pretty Le MD 175 [facility] [address] [place] [address] Specialist Pulmonology 10/01/23 Vesta Michael PA-C 300 [facility] 210 [place] [address] Specialist Vascular Surgery 10/01/23 [facility] 46 [place] [address] Specialist Optometry 10/01/23 documented as of this encounter
--- OUTSIDE RECORDS SUMMARY | 2024-07-31 09:59 | XMS_ITS | Encounter Summary ---
Author Organization [facility] Address [address] [place] [address] Care Team Providers Care Superintendent Sanitation Name Role Phone Teressa Solis DO Primary Care Pro vider Unavailable Mina Pretty DO Primary Care Provider Ailyn Shweta Pretty MD Primary Care Provider UnaOra Randall MD Primary Care Prov ider Jl Mendez MD Unavailable Jannette Boudreaux MD Unavailable [phone] Tenisha Mendieta PA-C Unavailable Julio Monk PA-C Unavailable Luis Armando Eller MD Unavailable [phone] Jayesh Pineda MD Unavailable Kelsi Tejada MD Unavailable Unavailable Pretty Le MD Unavailable Vesta Michael PA-C Unavailable [facility] Unavailable Reason for Referral * Non VLAD (Routine) - Authorized/Booked Specialty Diagnoses / Procedures Referred By Janie castillo Referred To Contact Endocrinology Procedures REFERRAL TO ENDOCRINOLOGY Teressa Solis DO [address] [place] [address] Endo/[place] 444 [place] [address] Referral ID Status Reason Start Date Expiration Date V isits Requested Visits Authorized [id number] Authorized/B ooked 10/24/2017 10/24/2018 1 1 Encounter Details Date Type Department Care Team Description 10/24/[address] [facility] [address] [place] [address] Teressa Solis DO Hypercalcemia (Primary Dx) Social History Tobacco Use Types [...] as of this encounter Visit Diagnoses Diagnosis Hypercalcemia- Primary documented in this encounter Care Teams Superintendent Sanitation Relationship Specialty Start Date End Date Teressa Solis DO PCP - General Internal Medicine 12/18/13 09/15/20 Mina Pretty DO PCP - General Internal Medicine 09/16/20 1 Shweta Tellez MD PCP - General Internal Medicine 01/12/21 10/10/21 Ora Ronquillo MD 444 [place] [address] PCP - General Internal Medicine 10/11/21 Jl Mendez MD [address] [place] [address] [place] [address] Specialist Cardiovascular Disease 10/13/21 Jannette Boudreaux MD [address] [address] Surgeon Neurosurgery 04/07/22 Tenisha Mendieta PA-C [address] 1208[address] Specialist Neurosurgery 04/07/22 Julio Monk PA-C 175 [facility] [address] [place] [address] Specialist Neurosurgery 04/07/22 Luis Armando Eller MD 175 [facility] [address] [place] [address] Specialist ORTHOPEDIC SURGERY 10/01/23 Jayesh Pineda MD 305 [place] [address] Specialist Endocrinology 10/01/23 Kelsi Tejada MD 305 [place] [address] Specialist Allergy & Immunology 10/01/23 Pretty Le MD 175 [facility] [address] [place] [address] Specialist Pulmonology 10/01/23 Vesta Michael PA-C 300 [facility] [address] [place] [address] Specialist Vascular Surgery 10/01/23 [facility] 46 [place] [address] Specialist Optometry 10/01/23 documented as of this encounter
--- OUTSIDE RECORDS SUMMARY | 2024-07-31 09:59 | XMS_ITS | Encounter Summary ---
Author Organization [facility] Address [address] [place] [address] Care Team Providers Care Equipment Operator Warehouse Name Role Phone Teressa Solis DO Primary Care Pro vider Unavailable Mina Pretty DO Primary Care Provider Shweta Cronin MD Primary Care Provider Ora Diaz MD Primary Care Prov ider Jl Mendez MD Unavailable Jannette Boudreaux MD Unavailable [phone] Tenisha Mendieta PA-C Unavailable [phone] Julio Monk PA-C Unavailable Luis Armando Eller MD Unavailable [phone] Jayesh Pineda MD Unavailable Kelsi Tejada MD Unavailable Unavailable Pretty Le MD Unavailable Vesta Michael PA-C Unavailable [phone] [facility] Unavailable [phone] Reason for Visit * Reason Onset Date Comments Medication 02/20/2014 RE-FAX Encounter Details Date Type Department Care Team Description 02/20/2014 Telephone Adult Medicine [address] [address] Teressa Solis DO Medication (RE-FAX) [...] filedocumented in this encounter Care Teams Equipment Operator Warehouse Relationship Specialty Start Date End Date Teressa Solis DO PCP - General Internal Medicine 12/18/13 09/15/20 Mina Pretty DO PCP - General Internal Medicine 09/16/20 1 Shweta Tellez MD PCP - General Internal Medicine 01/12/21 10/10/21 Hiwot Couch, Ora Kelly MD [address] [place] [address] PCP - General Internal Medicine 10/11/21 Jl Mendez MD [address] [place] [address] Dr Montiel [address] [place] [address] Specialist Cardiovascular Disease 10/13/21 Jannette Boudreaux MD [address] [address] Surgeon Neurosurgery 04/07/22 Tenisha Mendieta PA-C [address] [address] Specialist Neurosurgery 04/07/22 Julio Monk PA-C [address] [address] Specialist Neurosurgery 04/07/22 Luis Armando Eller MD [address] [address] Specialist ORTHOPEDIC SURGERY 10/01/23 Jayesh Pineda MD [address] [place] [address] Specialist Endocrinology 10/01/23 Kelsi Tejada MD [address] [place] [address] Specialist Allergy & Immunology 10/01/23 Pretty Le MD 175 [facility] [address] [place] [address] Specialist Pulmonology 10/01/23 Vesta Michael PA-C 300 [facility] [address] [place] [address] Specialist Vascular Surgery 10/01/23 [facility] 46 [place] [address] Specialist Optometry 10/01/23 documented as of this encounter
--- OUTSIDE RECORDS SUMMARY | 2024-07-31 09:59 | XMS_ITS | Encounter Summary ---
Author Organization [facility] Address [address] [place] [address] Care Team Providers Care On Site Nurse Name Role Phone Teressa Solis DO Primary Care Pro vider Unavailable Mina Pretty DO Primary Care Provider Shweta Cronin MD Primary Care Provider Ora Diaz MD Primary Care Prov ider Jl Mendez MD Unavailable Jannette Boudreaux MD Unavailable [phone] Tenisha Mendieta PA-C Unavailable Julio Monk PA-C Unavailable Luis Armando Eller MD Unavailable [phone] Jayesh Pineda MD Unavailable Kelsi Tejada MD Unavailable Unavailable Pretty Le MD Unavailable Vesta Michael PA-C Unavailable [facility] Unavailable Reason for Visit * Reason Comments E-prescribe Rx Request Encounter Details Date Type Department Care Team Description 03/27/2019 Refill Adult Medicine [address] [id number] Teressa Solis DO E-prescribe Rx Request Social [...] an upcoming appointment? No-unable to reach left [facility] to call for appointment due to refill [...] N/A Patients current insurance carrier is: Payor: [facility] [employer] FFS / Plan: [employer]IANCE / Product Type: MEDICAID RISK documented in this encounter Plan of Treatment Not on file documented as of this encounter Visit Diagnoses Not on filedocumented in this encounter Care Teams On Site Nurse Relationship Specialty Start Date End Date Teressa Solis DO PCP - General Internal Medicine 12/18/13 09/15/20 Mina Pretty DO PCP - General Internal Medicine 09/16/20 Shweta Boucher MD PCP - General Internal Medicine 01/12/21 10/10/21 Ora Ronquillo MD [address] [place] [address] PCP - General Internal Medicine 10/11/21 Jl Mendez MD [address] [place] [address] Dr Montiel [address] [place] [address] Specialist Cardiovascular Disease 10/13/21 Jannette Boudreaux MD [address] [address] Surgeon Neurosurgery 04/07/22 Tenisha Mendieta PA-C [address] [address] Specialist Neurosurgery 04/07/22 Julio Monk PA-C 175 [facility] [address] [place] [address] Specialist Neurosurgery 04/07/22 Luis Armando Eller MD [address] [address] Specialist ORTHOPEDIC SURGERY 10/01/23 Jayesh Pineda MD 305 [place] [address] Specialist Endocrinology 10/01/23 Kelsi Tejada MD 305 [place] [address] Specialist Allergy & Immunology 10/01/23 Pretty Le MD 175 [facility] [address] [place] [address] Specialist Pulmonology 10/01/23 Vesta Michael PA-C 300 [facility] 210 [place] [address] Specialist Vascular Surgery 10/01/23 [facility] 46 [place] [address] Specialist Optometry 10/01/23 documented as of this encounter
--- OUTSIDE RECORDS SUMMARY | 2024-07-31 09:59 | XMS_ITS | Encounter Summary ---
Author Organization [facility] Address [address] [place] [address] Care Team Providers Care Securities Analyst Name Role Phone Teressa Solis DO Primary Care Pro vider Unavailable Mina Pretty DO Primary Care Provider Ailyn Shweta Pretty MD Primary Care Provider Ora Diaz MD Primary Care Prov ider Jl Mendez MD Unavailable [phone] Jannette Boudreaux MD Unavailable [phone] Tenisha Mendieta PA-C Unavailable [phone] Julio Monk PA-C Unavailable Luis Armando Eller MD Unavailable [phone] Jayesh Pineda MD Unavailable Kelsi Tejada MD Unavailable Unavailable Pretty Le MD Unavailable Vesta Michael PA-C Unavailable [facility] Unavailable Encounter Details Date Type Department Care Team Description 02/10/2019 Old Medical Records Medical Records [address] [place] [address] Abstract, Provider Social History Tobacco Use Types [...] on filedocumented in this encounter Care Teams Securities Analyst Relationship Specialty Start Date End Date Teressa Solis DO PCP - General Internal Medicine 12/18/13 09/15/20 Mina Pretty DO PCP - General Internal Medicine 09/16/20 Shweta Boucher MD PCP - General Internal Medicine 01/12/21 10/10/21 Ora Ronquillo MD [address] [place] [address] PCP - General Internal Medicine 10/11/21 Jl Mendez MD [address] [place] [address] [place] [address] Specialist Cardiovascular Disease 10/13/21 Jannette Boudreaux MD [address] [address] Surgeon Neurosurgery 04/07/22 Tenisha Mendieta PA-C [address] [address] Specialist Neurosurgery 04/07/22 Julio Monk PA-C [address] [address] Specialist Neurosurgery 04/07/22 Luis Armando Eller MD [address] [address] Specialist ORTHOPEDIC SURGERY 10/01/23 Jayesh Pineda MD [address] [place] [address] Specialist Endocrinology 10/01/23 Kelsi Tejada MD [address] [place] [address] Specialist Allergy & Immunology 10/01/23 Pretty Le MD 175 [facility] [address] [place] [address] Specialist Pulmonology 10/01/23 Vesta Michael PA-C 300 [facility] [address] [place] [address] Specialist Vascular Surgery 10/01/23 [facility] [address] [place] [address] Specialist Optometry 10/01/23 documented as of this encounter
--- OUTSIDE RECORDS SUMMARY | 2024-07-31 09:59 | XMS_ITS | Encounter Summary ---
Author Organization [facility] Address [address] [place] [address] Care Team Providers Care Motorboat Operator Name Role Phone Teressa Solis DO Primary Care Pro vider Unavailable Mina Pretty DO Primary Care Provider Ailyn Shweta Pretty MD Primary Care Provider Ora Diaz MD Primary Care Prov ider Jl Mendez MD Unavailable Jannette Boudreaux MD Unavailable [phone] Tenisha Mendieta PA-C Unavailable Julio Monk PA-C Unavailable [phone] Luis Armando Eller MD Unavailable [phone] Jayesh Pineda MD Unavailable Kelsi Tejada MD Unavailable Unavailable Pretty Le MD Unavailable Vesta Michael PA-C Unavailable [facility] Unavailable Encounter Details Date Type Department Care Team Description 02/04/2018 Telephone Adult Medicine - [place] [address] [place] [address] Dez Tristan MD Social History [...] PM EDT Dez Tristan MD LAB [facility] [employer] * CALCIUM,TOTAL (06/07/2018 2:45 PM EDT) CALCIUM 9.5 8.5 - 10.5 mg/dL 06/07/2018 5:41 PM EDT [facility] 06/07/2018 2:45 PM EDT 06/07/2018 2:48 PM EDT [facility] Tr[facility] documented in this encounter Visit Diagnoses Diagnosis Hypercalcemia- Primary documented in this encounter Care Teams Motorboat Operator Relationship Specialty Start Date End Date Teressa Solis DO PCP - General Internal Medicine 12/18/13 09/15/20 Mina Pretty DO PCP - General Internal Medicine 09/16/20 1 Shweta Tellez MD PCP - General Internal Medicine 01/12/21 10/10/21 Ora Ronquillo MD [address] [place] [address] PCP - General Internal Medicine 10/11/21 Jl Mendez MD [address] [place] [address] [place] [address] Specialist Cardiovascular Disease 10/13/21 Jannette Boudreaux MD 175 [facility] 300 [place] [address] Surgeon Neurosurgery 04/07/22 Tenisha Mendieta PA-C 175 [facility] 300 [place] [address] Specialist Neurosurgery 04/07/22 Julio Monk PA-C 175 [facility] 300 [place] [address] Specialist Neurosurgery 04/07/22 Luis Armando Eller MD 175 [facility] 250 [place] [address] Specialist ORTHOPEDIC SURGERY 10/01/23 Jayesh Pineda MD 305 [place] [address] Specialist Endocrinology 10/01/23 Kelsi Tejada MD 305 [place] [address] Specialist Allergy & Immunology 10/01/23 Pretty Le MD 175 [facility] 200 [place] [address] Specialist Pulmonology 10/01/23 Vesta Michael PA-C 300 [facility] 210 [place] [address] Specialist Vascular Surgery 10/01/23 [facility] 46 [place] [address] Specialist Optometry 10/01/23 documented as of this encounter
--- OUTSIDE RECORDS SUMMARY | 2024-07-31 09:59 | XMS_ITS | Encounter Summary ---
Author Organization [facility] Address [address] [place] [address] Care Team Providers Care Mixed Animal Veterinarian Name Role Phone Ora Ronquillo MD Primary Care Prov ider Jl Mendez MD Unavailable Jannette Boudreaux MD Unavailable [phone] Tenisha Mendieta PA-C Unavailable Julio Monk PA-C Unavailable Luis Armando Eller MD Unavailable [phone] Jayesh Pineda MD Unavailable Kelsi Tejada MD Unavailable Unavailable Pretty Le MD Unavailable Vesta Michael PA-C Unavailable [facility] Unavailable Encounter Details Date Type Department Care Team Description 01/09/2023 SCAN [facility] Medical [facility] 175 [facility] [address] [place] [address] Lorie Moore, DONN 15[address] [facility] [place] [address] Social History Tobacco Use Types Packs/Day Years Used Date Smoking Tobacco: Never Smokeless Tobacco: Never Alcohol Use Standard Drinks/Week Comments No 0 (1 standard drink = 0.6 oz pur e alcohol) Education Answer Date Recorded What is the highest level of school you have completed or the highest degree you have received? 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, ASPHALT TILE FLOOR LAYER, CHANDRAKANT) 06/14/2020 Sex Assigned at Date Recorded [...] on filedocumented in this encounter Care Teams Mixed Animal Veterinarian Relationship Specialty Start Date End Date Ora Ronquillo MD [address] [place] [address] PCP - General Internal Medicine 10/11/21 Jl Mendez MD [address] [place] [address] Dr Montiel [address] [place] [address] Specialist Cardiovascular Disease 10/13/21 Jannette Boudreaux MD [address] [address] Surgeon Neurosurgery 04/07/22 Tenisha Mendieta PA-C [address] [address] Specialist Neurosurgery 04/07/22 Julio Monk PA-C 175 [facility] [address] [place] [address] Specialist Neurosurgery 04/07/22 Luis Armando Eller MD [address] [address] Specialist ORTHOPEDIC SURGERY 10/01/23 Jayesh Pineda MD 305 [place] [address] Specialist Endocrinology 10/01/23 Kelsi Tejada MD 305 [place] [address] Specialist Allergy & Immunology 10/01/23 Pretty Le MD 175 [facility] [address] [place] [address] Specialist Pulmonology 10/01/23 Vesta Michael PA-C 300 [facility] 210 [place] [address] Specialist Vascular Surgery 10/01/23 [facility] 46 [place], [place] [address] Specialist Optometry 10/01/23 documented as of this encounter
--- OUTSIDE RECORDS SUMMARY | 2024-07-31 09:59 | XMS_ITS | Encounter Summary ---
Author Organization [facility] Address [address] [place] [address] Care Team Providers Care Blanking Machine Operator Name Role Phone Teressa Solis DO Primary Care Pro vider Unavailable Mina Pretty DO Primary Care Provider Shweta Cronin MD Primary Care Provider Ora Diaz MD Primary Care Prov ider Jl Mendez MD Unavailable Jannette Boudreaux MD Unavailable [phone] Tenisha Mendieta PA-C Unavailable [phone] Julio MonkC Unavailable Luis Armando Eller MD Unavailable [phone] Jayesh Pineda MD Unavailable Kelsi Tejada MD Unavailable Unavailable Pretty Le MD Unavailable Vesta Michael PA-C Unavailable [facility] Unavailable Reason for Visit * Reason Comments E-prescribe Rx Request Encounter Details Date Type Department Care Team Description 04/07/2019 Refill Allergy [facility] 98 [address] [place] [address] Kelsi Tejada MD E-prescribe Rx Request Social [...] sinusitis documented in this encounter Care Teams Blanking Machine Operator Relationship Specialty Start Date End Date Teressa Solis DO PCP - General Internal Medicine 12/18/13 09/15/20 Mina Pretty DO PCP - General Internal Medicine 09/16/20 Shweta Boucher MD PCP - General Internal Medicine 01/12/21 10/10/21 Ora Ronquillo MD [address] [place] [address] PCP - General Internal Medicine 10/11/21 Jl Mendez MD [address] [place] [address] Dr Montiel [address] [place] [address] Specialist Cardiovascular Disease 10/13/21 Jannette Boudreaux MD [address] [address] Surgeon Neurosurgery 04/07/22 Tenisha Mendieta PA-C [address] [address] Specialist Neurosurgery 04/07/22 Julio Monk PA-C [address] [address] Specialist Neurosurgery 04/07/22 Luis Armando Eller MD [address] [address] Specialist ORTHOPEDIC SURGERY 10/01/23 Jayesh Pineda MD 305 [place] [address] Specialist Endocrinology 10/01/23 Kelsi Tejada MD [address] [place] [address] Specialist Allergy & Immunology 10/01/23 Pretty Le MD 175 [facility] [address] [place] [address] Specialist Pulmonology 10/01/23 Vesta Michael PA-C 300 [facility] 210 [place] [address] Specialist Vascular Surgery 10/01/23 [facility] 46 [place], [place] [address] Specialist Optometry 10/01/23 documented as of this encounter
--- OUTSIDE RECORDS SUMMARY | 2024-07-31 09:59 | XMS_ITS | Encounter Summary ---
Author Organization [facility] Address [address] [place] [address] Care Team Providers Care Banana Room Cutter Name Role Phone Ora Sweeney MD Primary Care Prov ider Reason for Visit * Reason Comments Obesity Diabetes Encounter Details Date Type Department Care Team (Late st Contact Info) Description 07/29/2024 9:30 AM EDT Nutrition Internal Medicine - [place] 175 [facility] [address] [place] [phone] Bruna Caballero, RD 175 [place] [phone] Controlled type 2 diabetes mellitus without complication, [...] RDN, LDN Registered Dietitian - Adult Medicine [address] [place] [address] [email or web address] W: [phone] Patient goals: Exercise: continue as tolerated Hydration: [...] skin and seeds): 1. All berries 2. [place], apples, pears, peaches, plums, etc. 3. Melons [...] the diet: Yes Previously met with a dietitian/burlapper: Yes Alcohol: No Smoking: No Family History: [...] slices ham, 2-3 egg and 1 slice (gibraltarian) cheese sandwich on potato bread; 12 oz [...] lose 1-2lb/wk Method used for estimating needs: [place] St Jeor Equation x activity factor (1.375) [...] skin and seeds): 1. All berries 2. [place], apples, pears, peaches, plums, etc. 3. Melons [...] we spent 60 mins minutes in direct [id number] consultation for nutrition counseling. Bruna Caballero MS, RDN, LDN Registered Dietitian [facility] documented in this encounter Plan of Treatment Upcoming Encounters Date Type Department Care Team (Late st Contact Info) Description 08/07/2024 9:30 AM EDT Office Visit Orthopedic Surgery - [place] [address] [phone] Duke Dunn DPM [address] [address] 08/21/2024 8:30 AM EDT Appointment [facility] Endoscopy [address] [place] [address] Dena Carrasco MD [address] [address] 08/22/2024 1:30 PM EDT Office Visit Obstetrics & Gynecology - [facility] [address] [place] [phone] Nguyen Crespo, CNM [address] [place] [address] 09/08/2024 11:15 AM EDT Office Visit Endocrinology - [place] [address] [place], [place] [phone] Jayesh Pineda MD [address] [place] [address] 09/22/2024 8:45 AM EDT Office Visit Pulmonolgy [address] [phone] Pretty Le MD [address] [place] [address] 10/01/2024 7:30 AM EDT Office Visit Adult Medicine [address] [phone] Paula Garnica PA [address] [place] [address] 12/05/2024 11:00 AM EDT Office Visit Orthopedic Surgery [address] [phone] Genny Arreguin PA [address] [place] [address] 12/09/2024 9:00 AM EDT Nutrition Internal Medicine [address] [phone] Bruna Caballero, RD [address] [place] [phone] 12/12/2024 8:30 AM EDT Office Visit Adult Medicine [address] [phone] Ora Sweeney MD [address] [place] [address] documented as of this encounter Visit Diagnoses Diagnosis Controlled type 2 diabetes mellitus without complication, without long-term current use of insulin ([facility] V24, [facility] V28)- Primary Morbid obesity ([facility] V24, [facility] V28) Morbid obesity documented in this encounter Additional Health Concerns Assessment Noted Time PHQ-9 Depression Total Score: 0 06/12/19 25 7:16 PM EDT documented as of this encounter Care Teams Banana Room Cutter Relationship Specialty Start Date End Date Ora Sweeney MD [address] [place] [address] PCP - General Internal Medicine 01/09/24 documented as of this encounter
--- OUTSIDE RECORDS SUMMARY | 2024-07-31 09:59 | XMS_ITS | Encounter Summary ---
Author Organization [facility] Address [address] [place] [address] Care Team Providers Care Head Of Visual Merchandising Name Role Phone Teressa Solis DO Primary Care Pro vider Unavailable Mina Pretty DO Primary Care Provider Shweta Cronin MD Primary Care Provider Ora Diaz MD Primary Care Prov ider Jl Mendez MD Unavailable [phone] Jannette Boudreaux MD Unavailable [phone] Tenisha Mendieta PA-C Unavailable [phone] Julio Monk PA-C Unavailable Luis Armando Eller MD Unavailable [phone] Jayesh Pineda MD Unavailable Kelsi Tejada MD Unavailable Unavailable Pretty Le MD Unavailable Vesta Michael PA-C Unavailable [facility] Unavailable Reason for Visit * Reason Comments E-prescribe Rx Request Encounter Details Date Type Department Care Team Description 08/17/2018 Refill Adult Medicine [address] [phone] Teressa Solis DO E-prescribe Rx Request Social [...] THE PATIENT'S LAST APPOINTMENT IN ADULT MEDICINE? [id number] WHEN WAS THE LAST TIME THE PATIENT SAW THEIR PCP? Same as above Does patient have an upcoming appointment? Yes [id number] (THE MEDICATION REQUESTED IS ON THE MED [...] N/A Patients current insurance carrier is: Payor: [employer] / Plan: [employer] / Product Type: MEDICAID RISK documented in this encounter Plan of Treatment Not on file documented as of this encounter Visit Diagnoses Not on filedocumented in this encounter Care Teams Head Of Visual Merchandising Relationship Specialty Start Date End Date Teressa Solis DO PCP - General Internal Medicine 12/18/13 09/15/20 Mina Pretty DO PCP - General Internal Medicine 09/16/20 Shweta Boucher MD PCP - General Internal Medicine 01/12/21 10/10/21 Ora Ronquillo MD [address] [place] [address] PCP - General Internal Medicine 10/11/21 Jl Mendez MD [address] [place] [address] Dr Montiel [address] [place] [address] Specialist Cardiovascular Disease 10/13/21 Jannette Boudreaux MD [address] [address] Surgeon Neurosurgery 04/07/22 Tenisha Mendieta PA-C 175 [facility] 300 [place] [address] Specialist Neurosurgery 04/07/22 Julio Monk PA-C 175 [facility] 300 [place] [address] Specialist Neurosurgery 04/07/22 Luis Armando Eller MD 175 [facility] 250 [place] [address] Specialist ORTHOPEDIC SURGERY 10/01/23 Jayesh Pineda MD 305 [place] [address] Specialist Endocrinology 10/01/23 Kelsi Tejada MD 305 [place] [address] Specialist Allergy & Immunology 10/01/23 Pretty Le MD 175 [facility] 200 [place] [phone] Specialist Pulmonology 10/01/23 Vesta Michael PA-C [address] [address] Specialist Vascular Surgery 10/01/23 [facility] 46 [place] [address] Specialist Optometry 10/01/23 documented as of this encounter
--- OUTSIDE RECORDS SUMMARY | 2024-07-31 10:00 | XMS_ITS | Encounter Summary ---
Author Organization [facility] Address [address] [place] [address] Care Team Providers Care Skidder Operator Name Role Phone Teressa Solis DO Primary Care Pro vider Unavailable Mina Pretty DO Primary Care Provider Shweta Cronin MD Primary Care Provider Ora Diaz MD Primary Care Prov ider Jl Mendez MD Unavailable Jannette Boudreaux MD Unavailable [phone] Tenisha Mendieta PA-C Unavailable [phone] Julio Monk PA-C Unavailable [phone] Luis Armando Eller MD Unavailable [phone] Jayesh Pineda MD Unavailable Kelsi Tejada MD Unavailable Unavailable Pretty Le MD Unavailable Vesta Michael PA-C Unavailable [phone] [facility] Unavailable [phone] Encounter Details Date Type Department Care Team Description 02/09/2015 [facility] Professional Report Medical Records [address] [place] [address] Social History Tobacco Use Types Packs/Day Years [...] on filedocumented in this encounter Care Teams Skidder Operator Relationship Specialty Start Date End Date Teressa Solis DO PCP - General Internal Medicine 12/18/13 09/15/20 Mina Pretty DO PCP - General Internal Medicine 09/16/20 Shweta Boucher MD PCP - General Internal Medicine 01/12/21 10/10/21 Ora Ronquillo MD [address] [place] [address] PCP - General Internal Medicine 10/11/21 Jl Mendez MD [address] [place] [address] Dr Montiel [address] [place] [address] Specialist Cardiovascular Disease 10/13/21 Jannette Boudreaux MD [address] [address] Surgeon Neurosurgery 04/07/22 Tenisha Mendieta PA-C [address] [address] Specialist Neurosurgery 04/07/22 Julio Monk PA-C [address] [address] Specialist Neurosurgery 04/07/22 Luis Armando Eller MD [address] [address] Specialist ORTHOPEDIC SURGERY 10/01/23 Jayesh Pineda MD 305 [place] [address] Specialist Endocrinology 10/01/23 Kelsi Tejada MD 305 [place] [address] Specialist Allergy & Immunology 10/01/23 Pretty Le MD 175 [facility] [address] [place] [address] Specialist Pulmonology 10/01/23 Vesta Michael PA-C 300 [facility] 210 [place] [address] Specialist Vascular Surgery 10/01/23 [facility] 46 [place] [address] Specialist Optometry 10/01/23 documented as of this encounter
--- OUTSIDE RECORDS SUMMARY | 2024-07-31 10:00 | XMS_ITS | Encounter Summary ---
Author Organization [facility] Address [address] [place] [address] Care Team Providers Care Instructional Facilitator Name Role Phone Ora Ronquillo MD Primary Care Prov ider Jl Mendez MD Unavailable [phone] Jannette Boudreaux MD Unavailable [phone] Tenisha Mendieta PA-C Unavailable [phone] Julio Monk PA-C Unavailable Luis Armando Eller MD Unavailable [phone] Jayesh Pineda MD Unavailable Kelsi Tejada MD Unavailable Unavailable Pretty Le MD Unavailable Vesta Michael PA-C Unavailable [phone] [facility] Unavailable [phone] Encounter Details Date Type Department Care Team Description 07/12/2022 Refill Pulmonology - [place] 175 [facility] [address] [place] [phone] Michael Saldana MD Social History Tobacco Use Types Packs/Day Years Used Date Smoking Tobacco: Never Smokeless Tobacco: Never Alcohol Use Standard Drinks/Week Comments No 0 (1 standard drink = 0.6 oz pur e alcohol) Education Answer Date Recorded What is the highest level of school you have completed or the highest degree you have received? 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, TABLE SAW OPERATOR, CHANDRAKANT) 06/14/2020 Sex Assigned at [...] complicated documented in this encounter Care Teams Instructional Facilitator Relationship Specialty Start Date End Date Ora Ronquillo MD 444 [place] [address] PCP - General Internal Medicine 10/11/21 Jl Mendez MD [address] [place] [address] Dr Montiel [address] [place] [address] Specialist Cardiovascular Disease 10/13/21 Jannette Boudreaux MD [address] [address] Surgeon Neurosurgery 04/07/22 Tenisha Mendieta PA-C [address] [address] Specialist Neurosurgery 04/07/22 Julio Monk PA-C [address] [address] Specialist Neurosurgery 04/07/22 Luis Armando Eller MD [address] [address] Specialist ORTHOPEDIC SURGERY 10/01/23 Jayesh Pineda MD 305 [place] [address] Specialist Endocrinology 10/01/23 Kelsi Tejada MD 305 [place] [address] Specialist Allergy & Immunology 10/01/23 Pretty Le MD 175 [facility] [address] [place] [address] Specialist Pulmonology 10/01/23 Vesta Michael PA-C 300 [facility] [address] [place] [address] Specialist Vascular Surgery 10/01/23 [facility] [address] [place] [address] Specialist Optometry 10/01/23 documented as of this encounter
--- OUTSIDE RECORDS SUMMARY | 2024-07-31 10:00 | XMS_ITS | Encounter Summary ---
Author Organization [facility] Address [address] [place] [address] Care Team Providers Care Manufacturing Manager Name Role Phone Teressa Solis DO Primary Care Pro vider Unavailable Mina Pretty DO Primary Care Provider Shweta Cronin MD Primary Care Provider Ora Diaz MD Primary Care Prov ider Jl Mendez MD Unavailable [phone] Jannette Boudreaux MD Unavailable [phone] Tenisha Mendieta PA-C Unavailable [phone] Julio Monk PA-C Unavailable Luis Armando Eller MD Unavailable [phone] Jayesh Pineda MD Unavailable Kelsi Tejada MD Unavailable Unavailable Pretty Le MD Unavailable Vesta Michael PA-C Unavailable [facility] Unavailable Encounter Details Date Type Department Care Team Description 09/04/2014 [facility] Medical Records [address] [place] [address] Jl Chou MD 175 [facility] [address] [place], [place] [id number] Social History Tobacco Use Types Packs/Day Years [...] on filedocumented in this encounter Care Teams Manufacturing Manager Relationship Specialty Start Date End Date Teressa Solis DO PCP - General Internal Medicine 12/18/13 09/15/20 Mina Pretty DO PCP - General Internal Medicine 09/16/20 Shweta Boucher MD PCP - General Internal Medicine 01/12/21 10/10/21 Ora Ronquillo MD [address] [place] [address] PCP - General Internal Medicine 10/11/21 Jl Mendez MD [address] [place] [address] Dr Mont[address] [place] [address] Specialist Cardiovascular Disease 10/13/21 Jannette Boudreaux MD [address] [address] Surgeon Neurosurgery 04/07/22 Tenisha Mendieta PA-C [address] [address] Specialist Neurosurgery 04/07/22 Julio Monk PA-C 175 [facility] [address] [place] [address] Specialist Neurosurgery 04/07/22 Luis Armando Eller MD [address] [address] Specialist ORTHOPEDIC SURGERY 10/01/23 Jayesh Pineda MD [address] [place] [address] Specialist Endocrinology 10/01/23 Kelsi Tejada MD 305 [place] [address] Specialist Allergy & Immunology 10/01/23 Pretty Le MD 175 [facility] [address] [place] [address] Specialist Pulmonology 10/01/23 Vesta Michael PA-C 300 [facility] 210 [place] [address] Specialist Vascular Surgery 10/01/23 [facility] 46 [place] [address] Specialist Optometry 10/01/23 documented as of this encounter
--- OUTSIDE RECORDS SUMMARY | 2024-07-31 10:00 | XMS_ITS | Encounter Summary ---
Author Organization [facility] Address [address] [place] [address] Care Team Providers Care Borematic Machine Operator Name Role Phone Ora Ronquillo MD Primary Care Prov ider Jl Mendez MD Unavailable Jannette Boudreaux MD Unavailable [phone] Tenisha Mendieta PA-C Unavailable Julio Monk PA-C Unavailable Luis Armando Eller MD Unavailable [phone] Jayesh Pineda MD Unavailable Kelsi Tejada MD Unavailable Unavailable Pretty Le MD Unavailable Vesta Michael PA-C Unavailable [facility] Unavailable Encounter Details Date Type Department Care Team Description 10/08/2023 [facility] Medical [facility] 175 [facility] [address] [place] [phone] Lorie Moore, DONN 1515 [facility] [place] [address] Social History Tobacco Use Types Packs/Day Years Used Date Smoking Tobacco: Never Smokeless Tobacco: Never Alcohol Use Standard Drinks/Week Comments No 0 (1 standard drink = 0.6 oz pur e alcohol) Education Answer Date Recorded What is the highest level of school you have completed or the highest degree you have received? 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, TECHNICIAN AUTOMATIC, CHANDRAKANT) 06/14/2020 Sex Assigned at Date Recorded Female 08/03/2020 10:16 PM EDT Job Start Date Occupation Industry Not on file Not on file Not on file documented as of this encounter Plan of Treatment Not on file documented as of this encounter Visit Diagnoses Not on filedocumented in this encounter Care Teams Borematic Machine Operator Relationship Specialty Start Date End Date Ora Ronquillo MD [address] [place] [address] PCP - General Internal Medicine 10/11/21 Jl Mendez MD [address] [place] [address] Dr [address] [place] [address] Specialist Cardiovascular Disease 10/13/21 Jannette Boudreaux MD [address] [address] Surgeon Neurosurgery 04/07/22 Tenisha Mendieta PA-C [address] [address] Specialist Neurosurgery 04/07/22 Julio Monk PA-C 175 [facility] 300 [place] [address] Specialist Neurosurgery 04/07/22 Luis Armando Eller MD [address] [address] Specialist ORTHOPEDIC SURGERY 10/01/23 Jayesh Pineda MD 305 [place] [address] Specialist Endocrinology 10/01/23 Kelsi Tejada MD 305 [place] [address] Specialist Allergy & Immunology 10/01/23 Pretty Le MD 175 [facility] 200 [place] [address] Specialist Pulmonology 10/01/23 Vesta Michael PA-C 300 [facility] 210 [place] [address] Specialist Vascular Surgery 10/01/23 [facility] 46 [place] [address] Specialist Optometry 10/01/23 documented as of this encounter
--- OUTSIDE RECORDS SUMMARY | 2024-07-31 10:00 | XMS_ITS | Encounter Summary ---
Author Organization [facility] Address [address] [place] [address] Care Team Providers Care Multifocal Button Inspector Name Role Phone Ora Ronquillo MD Primary Care Prov ider Jl Mendez MD Unavailable [phone] Jannette Boudreaux MD Unavailable [phone] Tenisha Mendieta PA-C Unavailable Julio Monk PA-C Unavailable [phone] Luis Armando Eller MD Unavailable [phone] Jayesh Pineda MD Unavailable Kelsi Tejada MD Unavailable Unavailable Pretty Le MD Unavailable Vesta Michael PA-C Unavailable [phone] [facility] Unavailable [phone] Encounter Details Date Type Department Care Team Description 08/07/2023 Refill Pulmonology - [place] 175 [facility] [address] [place] [address] Julio Cesar Weiss MD 175 [facility] Dinesh 200 [place] [address] Social History Tobacco Use Types Packs/Day Years Used Date Smoking Tobacco: Never Smokeless Tobacco: Never Alcohol Use Standard Drinks/Week Comments No 0 (1 standard drink = 0.6 oz pur e alcohol) Education Answer Date Recorded What is the highest level of school you have completed or the highest degree you have received? 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, IV TECHNICIAN, CHANDRAKANT) 06/14/2020 Sex Assigned at Date [...] seasonality documented in this encounter Care Teams Multifocal Button Inspector Relationship Specialty Start Date End Date Ora Ronquillo MD 4 [place] [address] PCP - General Internal Medicine 10/11/21 Jl Mendez MD [address] [place] [address] Dr Mont[address] [place] [address] Specialist Cardiovascular Disease 10/13/21 Jannette Boudreaux MD [address] [address] Surgeon Neurosurgery 04/07/22 Tenisha Mendieta PA-C [address] [address] Specialist Neurosurgery 04/07/22 Julio Monk PA-C [address] [address] Specialist Neurosurgery 04/07/22 Luis Armando Eller MD 175 [facility] [address] [place] [address] Specialist ORTHOPEDIC SURGERY 10/01/23 Jayesh Pineda MD 305 [place] [address] Specialist Endocrinology 10/01/23 Kelsi Tejada MD 305 [place] [address] Specialist Allergy & Immunology 10/01/23 Pretty Le MD 175 [facility] [address] [place] [address] Specialist Pulmonology 10/01/23 Vesta Michael PA-C 300 [facility] [address] [place] [address] Specialist Vascular Surgery 10/01/23 [facility] 46 [place] [address] Specialist Optometry 10/01/23 documented as of this encounter
--- OUTSIDE RECORDS SUMMARY | 2024-07-31 10:00 | XMS_ITS | Encounter Summary ---
Author Organization [facility] Address [address] [place] [address] Care Team Providers Care Casino Floor Runner Name Role Phone Teressa Solis DO Primary Care Pro vider Unavailable Mina Pretty DO Primary Care Provider Shweta Cronin MD Primary Care Provider Ora Diaz MD Primary Care Prov ider Jl Mendez MD Unavailable Jannette Boudreaux MD Unavailable [phone] Tenisha Mendieta PA-C Unavailable Julio Monk PA-C Unavailable [phone] Luis Armando Eller MD Unavailable [phone] Jayesh Pineda MD Unavailable Kelsi Tejada MD Unavailable Unavailable Pretty Le MD Unavailable Vesta Michael PA-C Unavailable [facility] Unavailable Encounter Details Date Type Department Care Team Description 03/25/2018 Transfer Records Medical Records 4 [place] [address] Abstract, Provider Social History Tobacco Use Types [...] filedocumented in this encounter Care Teams Casino Floor Runner Relationship Specialty Start Date End Date Teressa Solis DO PCP - General Internal Medicine 12/18/13 09/15/20 Mina Pretty DO PCP - General Internal Medicine 09/16/20 Shweta Boucher MD PCP - General Internal Medicine 01/12/21 10/10/21 Ora Ronquillo MD [address] [place] [address] PCP - General Internal Medicine 10/11/21 Jl Mendez MD [address] [place] [address] Specialist Cardiovascular Disease 10/13/21 Jannette Boudreaux MD [address] [address] Surgeon Neurosurgery 04/07/22 Tenisha Mendieta PA-C [address] [address] Specialist Neurosurgery 04/07/22 Julio Monk PA-C [address] [address] Specialist Neurosurgery 04/07/22 Luis Armando Eller MD [address] [address] Specialist ORTHOPEDIC SURGERY 10/01/23 Jayesh Pineda MD 305 [place] [address] Specialist Endocrinology 10/01/23 Kelsi Tejada MD 305 [place] [address] Specialist Allergy & Immunology 10/01/23 Pretty Le MD 175 [facility] [address] [place] [address] Specialist Pulmonology 10/01/23 Vesta Michael PA-C 300 [facility] [address] [place] [address] Specialist Vascular Surgery 10/01/23 [facility] 46 [place] [address] Specialist Optometry 10/01/23 documented as of this encounter
--- OUTSIDE RECORDS SUMMARY | 2024-07-31 10:00 | XMS_ITS | Encounter Summary ---
Author Organization [facility] Address [address] [place] [address] Care Team Providers Care Tank Storage Supervisor Name Role Phone Ora Ronquillo MD Primary Care Prov ider Jl Mendez MD Unavailable Jannette Boudreaux MD Unavailable [phone] Tenisha Mendieta PA-C Unavailable [phone] Julio Monk PA-C Unavailable Luis Armando Eller MD Unavailable [phone] Jayesh Pineda MD Unavailable Kelsi Tejada MD Unavailable Unavailable Pretty Le MD Unavailable Vesta Michael PA-C Unavailable [phone] [facility] Unavailable [phone] Encounter Details Date Type Department Care Team Description 07/03/2022 Refill Pulmonology - [place] 175 [facility] [address] [place] [phone] Michael Saldana MD Social History Tobacco Use Types Packs/Day Years Used Date Smoking Tobacco: Never Smokeless Tobacco: Never Alcohol Use Standard Drinks/Week Comments No 0 (1 standard drink = 0.6 oz pur e alcohol) Education Answer Date Recorded What is the highest level of school you have completed or the highest degree you have received? 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, SENIOR QA ENGINEER, CHANDRAKANT) 06/14/2020 Sex Assigned at Date [...] complicated documented in this encounter Care Teams Tank Storage Supervisor Relationship Specialty Start Date End Date Ora Ronquillo MD [address] [place] [address] PCP - General Internal Medicine 10/11/21 Jl Mendez MD [address] [place] [address] Dr Mont[address] [place] [address] Specialist Cardiovascular Disease 10/13/21 Jannette Boudreaux MD [address] [address] Surgeon Neurosurgery 04/07/22 Tenisha Mendieta PA-C [address] [address] Specialist Neurosurgery 04/07/22 Julio Monk PA-C 175 [facility] [address] [place] [address] Specialist Neurosurgery 04/07/22 Luis Armando Eller MD [address] [address] Specialist ORTHOPEDIC SURGERY 10/01/23 Jayesh Pineda MD 305 [place] [address] Specialist Endocrinology 10/01/23 Kelsi Tejada MD 305 [place] [address] Specialist Allergy & Immunology 10/01/23 Pretty Le MD 175 [facility] [address] [place] [address] Specialist Pulmonology 10/01/23 Vesta Michael PA-C 300 [facility] [address] [place] [address] Specialist Vascular Surgery 10/01/23 [facility] 46 [place] [address] Specialist Optometry 10/01/23 documented as of this encounter
--- OUTSIDE RECORDS SUMMARY | 2024-07-31 10:00 | XMS_ITS | Encounter Summary ---
Author Organization [facility] Address [address] [place] [address] Care Team Providers Care Banquet Bartender Name Role Phone Ora Ronquillo MD Primary Care Prov ider Jl Mendez MD Unavailable [phone] Jannette Boudreaux MD Unavailable [phone] Tenisha Mendieta PA-C Unavailable Julio Monk PA-C Unavailable [phone] Luis Armando Eller MD Unavailable [phone] Jayesh Pineda MD Unavailable Kelsi Tejada MD Unavailable Unavailable Pretty Le MD Unavailable Vesta Michael PA-C Unavailable [facility] Unavailable [phone] Encounter Details Date Type Department Care Team Description 11/20/2023 Pt. Non Urgent Medical Question Adult Medicine [address] [address] Ora Ronquillo MD [address] [place] [phone] Social History Tobacco Use Types Packs/Day Years Used Date Smoking Tobacco: Never Smokeless Tobacco: Never Alcohol Use Standard Drinks/Week Comments No 0 (1 standard drink = 0.6 oz pur e alcohol) Education Answer Date Recorded What is the highest level of school you have completed or the highest degree you have received? 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, COUNSELOR MARRIAGE AND FAMILY, CHANDRAKANT) 06/14/2020 Sex Assigned at Date Recorded Female 08/03/2020 10:16 PM EDT Job Start Date Occupation Industry Not on file Not on file Not on file documented as of this encounter Miscellaneous Notes * Telephone Encounter - Casi Lincoln - 11/20/2023 12:32 PM EDTFrom: Ana Luisa House To: Raul Couch Sent: 11/20/2023 11:38 AM EDT Subject: Urologist referral Good morning, Can I please have a referral to [facility] Urologist because [facility]. They called me to cancel my follow up appointment and suggested to book as a new patient with [facility] Urologists. I will see any you choose w ill be the best option. Waiting for your respond and thanks. documented in this encounter Plan of Treatment Not on file documented as of this encounter Visit Diagnoses Not on filedocumented in this encounter Care Teams Banquet Bartender Relationship Specialty Start Date End Date Ora Ronquillo MD 4 [place] [address] PCP - General Internal Medicine 10/11/21 Jl Mendez MD [address] [place] [address] Dr Mont[address] [place] [address] Specialist Cardiovascular Disease 10/13/21 Jannette Boudreaux MD 175 [facility] [address] [place] [id number] Surgeon Neurosurgery 04/07/22 Tenisha Mendieta PA-C 175 [facility] 300 [place] [address] Specialist Neurosurgery 04/07/22 Julio Monk PA-C 175 [facility] [address] [place] [address] Specialist Neurosurgery 04/07/22 Luis Armando Eller MD 175 [facility] [address] [place] [address] Specialist ORTHOPEDIC SURGERY 10/01/23 Jayesh Pineda MD 305 [place] [address] Specialist Endocrinology 10/01/23 Kelsi Tejada MD 305 [place] [address] Specialist Allergy & Immunology 10/01/23 Pretty Le MD 175 [facility] [address] [place] [address] Specialist Pulmonology 10/01/23 Vesta Michael PA-C [address] [facility] [address] [place] [address] Specialist Vascular Surgery 10/01/23 [facility] 46 [place] [address] Specialist Optometry 10/01/23 documented as of this encounter
--- OUTSIDE RECORDS SUMMARY | 2024-07-31 10:00 | XMS_ITS | Encounter Summary ---
Author Organization [facility] Address [address] [place] [address] Care Team Providers Care Automotive Drivability Technician Name Role Phone Shweta Tellez MD Primary Care Provider Ora Diaz MD Primary Care Prov ider Jl Mendez MD Unavailable Jannette Boudreaux MD Unavailable [phone] Tenisha Mendieta PA-C Unavailable Julio Monk PA-C Unavailable Luis Armando Eller MD Unavailable [phone] Jayesh Pineda MD Unavailable Kelsi Tejada MD Unavailable Unavailable Pretty Le MD Unavailable Vesta Michael PA-C Unavailable [phone] [facility] Unavailable Encounter Details Date Type Department Care Team Description 09/09/2021 Refill Endocrinology - [address] [address] Jayesh Pineda MD 305 [place], [place] [phone] Social History Tobacco Use Types Packs/Day Years Used Date Smoking Tobacco: Never Smokeless Tobacco: Never Alcohol Use Standard Drinks/Week Comments No 0 (1 standard drink = 0.6 oz pur e alcohol) Education Answer Date Recorded What is the highest level of school you have completed or the highest degree you have received? 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, HYDROMETALLURGICAL ENGINEER, CHANDRAKANT) 06/14/2020 Sex Assigned at Date [...] filedocumented in this encounter Care Teams Automotive Drivability Technician Relationship Specialty Start Date End Date Shweta Tellez MD PCP - General Internal Medicine 01/12/21 10/10/21 Ora Ronquillo MD [address] [place] [address] PCP - General Internal Medicine 10/11/21 Jl Mendez MD [address] [place] [address] Dr Mont[address] [place] [address] Specialist Cardiovascular Disease 10/13/21 Jannette Boudreaux MD [address] [address] Surgeon Neurosurgery 04/07/22 Tenisha Mendieta PA-C 175 [facility] 300 [place] [address] Specialist Neurosurgery 04/07/22 Julio Monk PA-C 175 [facility] 300 [place] [address] Specialist Neurosurgery 04/07/22 Luis Armando Eller MD 175 [facility] 250 [place] [address] Specialist ORTHOPEDIC SURGERY 10/01/23 Jayesh Pineda MD 305 [place] [address] Specialist Endocrinology 10/01/23 Kelsi Tejada MD 305 [place] [address] Specialist Allergy & Immunology 10/01/23 Pretty Le MD 175 [facility] 200 [place] [address] Specialist Pulmonology 10/01/23 Vesta Michael PA-C 300 [facility] 210 [place] [address] Specialist Vascular Surgery 10/01/23 [facility] 46 [place] [address] Specialist Optometry 10/01/23 documented as of this encounter
--- OUTSIDE RECORDS SUMMARY | 2024-07-31 10:00 | XMS_ITS | Encounter Summary ---
Author Organization [facility] Address [address] [place] [address] Care Team Providers Care Pediatric Intensive Physician Name Role Phone Ora Ronquillo MD Primary Care Prov ider Jl Mendez MD Unavailable [phone] Jannette Boudreaux MD Unavailable [phone] Tenisha Mendieta PA-C Unavailable Julio Monk PA-C Unavailable Luis Armando Eller MD Unavailable [phone] Jayesh Pineda MD Unavailable Kelsi Tejada MD Unavailable Unavailable Pretty Le MD Unavailable Vesta Michael PA-C Unavailable [phone] [facility] Unavailable Encounter Details Date Type Department Care Team Description 08/07/2023 Pt. Non Urgent Medical Question Adult Medicine [address] [address] Ora Ronquillo MD [address] [place] [id number] Social History Tobacco Use Types Packs/Day Years Used Date Smoking Tobacco: Never Smokeless Tobacco: Never Alcohol Use Standard Drinks/Week Comments No 0 (1 standard drink = 0.6 oz pur e alcohol) Education Answer Date Recorded What is the highest level of school you have completed or the highest degree you have received? 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, TAR WORKER, CHANDRAKANT) 06/14/2020 Sex Assigned at Date Recorded Female 08/03/2020 10:16 PM EDT Job Start Date Occupation Industry Not on file Not on file Not on file documented as of this encounter Plan of Treatment Not on file documented as of this encounter Visit Diagnoses Not on filedocumented in this encounter Care Teams Pediatric Intensive Physician Relationship Specialty Start Date End Date Ora Ronquillo MD [address] [place] [address] PCP - General Internal Medicine 10/11/21 Jl Mendez MD [address] [place] [address] Dr Mont[address] [place] [address] Specialist Cardiovascular Disease 10/13/21 Jannette Boudreaux MD [address] [address] Surgeon Neurosurgery 04/07/22 Tenisha Mendieta PA-C [address] [address] Specialist Neurosurgery 04/07/22 Julio Monk PA-C 175 [facility] 300 [place] [address] Specialist Neurosurgery 04/07/22 Luis Armando Eller MD 175 [facility] 250 [place] [address] Specialist ORTHOPEDIC SURGERY 10/01/23 Jayesh Pineda MD 305 [place] [address] Specialist Endocrinology 10/01/23 Kelsi Tejada MD 305 [place] [address] Specialist Allergy & Immunology 10/01/23 Pretty Le MD 175 [facility] 200 [place] [address] Specialist Pulmonology 10/01/23 Vesta Michael PA-C 300 [facility] [address] [place] [address] Specialist Vascular Surgery 10/01/23 [facility] 46 [place] [address] Specialist Optometry 10/01/23 documented as of this encounter
--- OUTSIDE RECORDS SUMMARY | 2024-07-31 10:00 | XMS_ITS | Encounter Summary ---
Author Organization [facility] Address [address] [place] [address] Care Team Providers Care Flumer Name Role Phone Ora Ronquillo MD Primary Care Prov ider Jl Mendez MD Unavailable Jannette Boudreaux MD Unavailable [phone] Tenisha Mendieta-C Unavailable Julio Monk PA-C Unavailable Luis Armando Eller MD Unavailable [phone] Jayesh Pinead MD Unavailable Kelsi Tejada MD Unavailable Unavailable Pretty Le MD Unavailable Vesta Michael PA-C Unavailable [facility] Unavailable Encounter Details Date Type Department Care Team Description 10/15/2023 SCAN [facility] Medical [facility] 175 [facility] [address] [place] [phone] Lorie Moore, DONN 1515 [facility] [place] [address] Social History Tobacco Use Types Packs/Day Years Used Date Smoking Tobacco: Never Smokeless Tobacco: Never Alcohol Use Standard Drinks/Week Comments No 0 (1 standard drink = 0.6 oz pur e alcohol) Education Answer Date Recorded What is the highest level of school you have completed or the highest degree you have received? 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, IT FIELD TECHNICIAN, CHANDRAKANT) 06/14/2020 Sex Assigned at Date Recorded Female 08/03/2020 10:16 PM EDT Job Start Date Occupation Industry Not on file Not on file Not on file documented as of this encounter Plan of Treatment Not on file documented as of this encounter Visit Diagnoses Not on filedocumented in this encounter Care Teams Flumer Relationship Specialty Start Date End Date Ora Ronquillo MD [address] [place] [address] PCP - General Internal Medicine 10/11/21 Jl Mendez MD [address] [place] [address] Dr Mont[address] [place] [address] Specialist Cardiovascular Disease 10/13/21 Jannette Boudreaux MD [address] [address] Surgeon Neurosurgery 04/07/22 Tenisha Mendieta PA-C [address] [address] Specialist Neurosurgery 04/07/22 Julio Monk PA-C 175 [facility] 300 [place] [address] Specialist Neurosurgery 04/07/22 Luis Armando Eller MD [address] [address] Specialist ORTHOPEDIC SURGERY 10/01/23 Jayesh Pineda MD 305 [place] [address] Specialist Endocrinology 10/01/23 Kelsi Tejada MD 305 [place] [address] Specialist Allergy & Immunology 10/01/23 Pretty Le MD 175 [facility] 200 [place] [address] Specialist Pulmonology 10/01/23 Vesta Michael PA-C 300 [facility] 210 [place] [address] Specialist Vascular Surgery 10/01/23 [facility] 46 [place] [address] Specialist Optometry 10/01/23 documented as of this encounter
--- OUTSIDE RECORDS SUMMARY | 2024-07-31 10:00 | XMS_ITS | Encounter Summary ---
Author Organization [facility] Address [address] [place] [address] Care Team Providers Care Electrical High Tension Tester Name Role Phone Ora Ronquillo MD Primary Care Prov ider Jl Mendez MD Unavailable Jannette Boudreaux MD Unavailable [phone] Tenisha Mendieta-C Unavailable [phone] Julio Monk PA-C Unavailable [phone] Luis Armando Eller MD Unavailable [phone] Jayesh Pineda MD Unavailable Kelsi Tejada MD Unavailable Unavailable Pretty Le MD Unavailable Vesta Michael PA-C Unavailable [facility] Unavailable Encounter Details Date Type Department Care Team Description 12/18/2023 SCAN [facility] Medical [facility] 175 [facility] [address] [place] [address] Lorie Moore, DONN 1515 [facility] [place] [address] Social History Tobacco Use Types Packs/Day Years Used Date Smoking Tobacco: Never Smokeless Tobacco: Never Alcohol Use Standard Drinks/Week Comments No 0 (1 standard drink = 0.6 oz pur e alcohol) Education Answer Date Recorded What is the highest level of school you have completed or the highest degree you have received? 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, THREAD WINDER AUTOMATIC, CHANDRAKANT) 06/14/2020 Sex Assigned at Date Recorded Female 08/03/2020 10:16 PM EDT Job Start Date Occupation Industry Not on file Not on file Not on file documented as of this encounter Plan of Treatment Not on file documented as of this encounter Visit Diagnoses Not on filedocumented in this encounter Care Teams Electrical High Tension Tester Relationship Specialty Start Date End Date Ora Ronquillo MD [address] [place] [address] PCP - General Internal Medicine 10/11/21 Jl Mendez MD [address] [place] [address] Dr Mont[address] [place] [address] Specialist Cardiovascular Disease 10/13/21 Jannette Boudreaux MD [address] [address] Surgeon Neurosurgery 04/07/22 Tenisha Mendieta PA-C [address] [address] Specialist Neurosurgery 04/07/22 Julio Monk PA-C 175 [facility] 300 [place] [address] Specialist Neurosurgery 04/07/22 Luis Armando Eller MD [address] [address] Specialist ORTHOPEDIC SURGERY 10/01/23 Jayesh Pineda MD 305 [place] [address] Specialist Endocrinology 10/01/23 Kelsi Tejada MD 305 [place] [address] Specialist Allergy & Immunology 10/01/23 Pretty Le MD 175 [facility] 200 [place] [address] Specialist Pulmonology 10/01/23 Vesta Michael PA-C 300 [facility] 210 [place] [address] Specialist Vascular Surgery 10/01/23 [facility] 46 [place] [address] Specialist Optometry 10/01/23 documented as of this encounter
--- OUTSIDE RECORDS SUMMARY | 2024-07-31 10:00 | XMS_ITS | Encounter Summary ---
Author Organization [facility] Address [address] [place] [address] Care Team Providers Care C Python Developer Name Role Phone Ora Ronquillo MD Primary Care Prov ider Jl Mendez MD Unavailable Jannette Boudreaux MD Unavailable [phone] Tenisha Mendieta PA-C Unavailable Julio Monk PA-C Unavailable Luis Armando Eller MD Unavailable [phone] Jayesh Pineda MD Unavailable Kelsi Tejada MD Unavailable Unavailable Pretty Le MD Unavailable Vesta Michael PA-C Unavailable [facility] Unavailable Encounter Details Date Type Department Care Team Description 06/21/2022 SCAN [facility] Medical [facility] Neurosurgery [place] 175 [facility] [address] [place] [phone] Tenisha Mendieta PA-C [address] [phone] Social History Tobacco Use Types Packs/Day Years Used Date Smoking Tobacco: Never Smokeless Tobacco: Never Alcohol Use Standard Drinks/Week Comments No 0 (1 standard drink = 0.6 oz pur e alcohol) Education Answer Date Recorded What is the highest level of school you have completed or the highest degree you have received? 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, STICK ROLLER, CHANDRAKANT) 06/14/2020 Sex Assigned at Date [...] on filedocumented in this encounter Care Teams C Python Developer Relationship Specialty Start Date End Date Ora Ronquillo MD 444 [place] [address] PCP - General Internal Medicine 10/11/21 Jl Mendez MD [address] [place] [address] Dr Montiel [address] [place] [address] Specialist Cardiovascular Disease 10/13/21 Jannette Boudreaux MD [address] [address] Surgeon Neurosurgery 04/07/22 Tenisha Mendieta PA-C [address] [address] Specialist Neurosurgery 04/07/22 Julio Monk PA-C 175 [facility] [address] [place] [address] Specialist Neurosurgery 04/07/22 Luis Armando Eller MD [address] [address] Specialist ORTHOPEDIC SURGERY 10/01/23 Jayesh Pineda MD [address] [place] [address] Specialist Endocrinology 10/01/23 Kelsi Tejada MD 305 [place] [address] Specialist Allergy & Immunology 10/01/23 Pretty Le MD 175 [facility] [address] [place] [address] Specialist Pulmonology 10/01/23 Vesta Michael PA-C 300 [facility] 210 [place] [address] Specialist Vascular Surgery 10/01/23 [facility] 46 [place] [address] Specialist Optometry 10/01/23 documented as of this encounter
--- OUTSIDE RECORDS SUMMARY | 2024-07-31 10:00 | XMS_ITS | Encounter Summary ---
Author Organization [facility] Address [address] [place] [address] Care Team Providers Care Strategy Lead Name Role Phone Teressa Solis DO Primary Care Pro vider Unavailable Mina Pretty DO Primary Care Provider Shweta Cronin MD Primary Care Provider Ora Diaz MD Primary Care Prov ider Jl Mendez MD Unavailable [phone] Jannette Boudreaux MD Unavailable [phone] Tenisha Mendieta PA-C Unavailable Julio Monk PA-C Unavailable Luis Armando Eller MD Unavailable [phone] Jayesh Pineda MD Unavailable Kelsi Tejada MD Unavailable Unavailable Pretty Le MD Unavailable Vesta Michael PA-C Unavailable [phone] [facility] Unavailable [phone] Encounter Details Date Type Department Care Team Description 04/25/2018 Hospital Medical Records 4 [place] [address] [facility] Social History Tobacco Use Types Packs/Day Years Used Date Smoking Tobacco: Never Smokeless Tobacco: Never Alcohol Use Standard Drinks/Week Comments No 0 (1 standard drink = 0.6 oz pur e alcohol) Education Answer Date Recorded What is the highest level of school you have completed or the highest degree you have received? 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, EQUIPMENT WORKER, CHANDRAKANT) 06/14/2020 Sex Assigned at Date Recorded Female 08/03/2020 10:16 PM EDT Job Start Date Occupation Industry Not on file Not on file Not on file documented as of this encounter Plan of Treatment Not on file documented as of this encounter Visit Diagnoses Not on filedocumented in this encounter Care Teams Strategy Lead Relationship Specialty Start Date End Date Teressa Solis, PCP - General Internal Medicine 12/18/13 09/15/20 Mina Pretty DO PCP - General Internal Medicine 09/16/20 Shweta Boucher MD PCP - General Internal Medicine 01/12/21 10/10/21 Ora Ronquillo MD [address] [place] [address] PCP - General Internal Medicine 10/11/21 Jl Mendez MD [address] [place] [address] Dr Montiel [address] [place] [address] Specialist Cardiovascular Disease 10/13/21 Jannette Boudreaux MD [address] [address] Surgeon Neurosurgery 04/07/22 Tenisha Mendieta PA-C [address] [address] Specialist Neurosurgery 04/07/22 Julio Monk PA-C 175 [facility] [address] [place] [address] Specialist Neurosurgery 04/07/22 Luis Armando Eller MD [address] [address] Specialist ORTHOPEDIC SURGERY 10/01/23 Jayesh Pineda MD [address] [place] [address] Specialist Endocrinology 10/01/23 Kelsi Tejada MD 305 [place] [address] Specialist Allergy & Immunology 10/01/23 Pretty Le MD 175 [facility] [address] [place] [address] Specialist Pulmonology 10/01/23 Vesta Michael PA-C 300 [facility] [address] [place] [address] Specialist Vascular Surgery 10/01/23 [facility] 46 [place], [place] [address] Specialist Optometry 10/01/23 documented as of this encounter
--- OUTSIDE RECORDS SUMMARY | 2024-07-31 10:00 | XMS_ITS | Encounter Summary ---
Author Organization [facility] Address [address] [place] [address] Care Team Providers Care Marketing Programs Manager Name Role Phone Ora Ronquillo MD Primary Care Prov ider Jl Mendez MD Unavailable Jannette Boudreaux MD Unavailable [phone] Tenisha Mendieta PA-C Unavailable [phone] Julio Monk PA-C Unavailable [phone] Luis Armando Eller MD Unavailable [phone] Jayesh Pineda MD Unavailable Kelsi Tejada MD Unavailable Unavailable Pretty Le MD Unavailable Vesta Michael PA-C Unavailable [phone] [facility] Unavailable Encounter Details Date Type Department Care Team Description 04/10/2022 SCAN [facility] Neurosurgery [place] 175 [facility] [address] [place] [phone] Tenisha Mendieta PA-C [address] [id number] Social History Tobacco Use Types Packs/Day Years Used Date Smoking Tobacco: Never Smokeless Tobacco: Never Alcohol Use Standard Drinks/Week Comments No 0 (1 standard drink = 0.6 oz pur e alcohol) Education Answer Date Recorded What is the highest level of school you have completed or the highest degree you have received? 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, LOCAL COORDINATOR, CHANDRAKANT) 06/14/2020 Sex Assigned at Date [...] on filedocumented in this encounter Care Teams Marketing Programs Manager Relationship Specialty Start Date End Date Ora Ronquillo MD [address] [place] [address] PCP - General Internal Medicine 10/11/21 Jl Mendez MD [address] [place] [address] Dr Mont[address] [place] [address] Specialist Cardiovascular Disease 10/13/21 Jannette Boudreaux MD [address] [address] Surgeon Neurosurgery 04/07/22 Tenisha Mendieta PA-C [address] [address] Specialist Neurosurgery 04/07/22 Julio Monk PA-C 175 [facility] [address] [place] [address] Specialist Neurosurgery 04/07/22 Luis Armando Eller MD [address] [address] Specialist ORTHOPEDIC SURGERY 10/01/23 Jayesh Pineda MD [address] [place] [address] Specialist Endocrinology 10/01/23 Kelsi Tejada MD 305 [place] [address] Specialist Allergy & Immunology 10/01/23 Pretty Le MD 175 [facility] [address] [place] [address] Specialist Pulmonology 10/01/23 Vesta Michael PA-C 300 [facility] 210 [place] [address] Specialist Vascular Surgery 10/01/23 [facility] 46 [place] [address] Specialist Optometry 10/01/23 documented as of this encounter
--- OUTSIDE RECORDS SUMMARY | 2024-07-31 10:00 | XMS_ITS | Encounter Summary ---
Author Organization [facility] Address [address] [place] [address] Care Team Providers Care Sole Assessor Name Role Phone Teressa Solis DO Primary Care Pro vider Unavailable Mina Pretty DO Primary Care Provider Shweta Cronin MD Primary Care Provider Ora Diaz MD Primary Care Prov ider Jl Mendez MD Unavailable Jannette Boudreaux MD Unavailable [phone] Tenisha Mendieta PA-C Unavailable [phone] Julio MonkC Unavailable [phone] Luis Armando Eller MD Unavailable [phone] Jayesh Pineda MD Unavailable Kelsi Tejada MD Unavailable Unavailable Pretty Le MD Unavailable Vesta Michael PA-C Unavailable [facility] Unavailable Reason for Visit * Reason Comments E-prescribe Rx Request Encounter Details Date Type Department Care Team Description 04/17/2018 Refill Adult Medicine [address] [id number] Alexia Walton MD E-prescribe Rx Request Social [...] THE PATIENT'S LAST APPOINTMENT IN ADULT MEDICINE? [id number] WHEN WAS THE LAST TIME THE PATIENT SAW THEIR PCP? [id number] Does patient have an upcoming appointment? No-unable to reach left [facility] to call for appointment due to refill [...] N/A Patients current insurance carrier is: Payor: [employer] / Plan: [employer] / Product Type: MEDICAID RISK documented in this encounter Plan of Treatment Not on file documented as of this encounter Visit Diagnoses Not on filedocumented in this encounter Care Teams Sole Assessor Relationship Specialty Start Date End Date Teressa Solis DO PCP - General Internal Medicine 12/18/13 09/15/20 Mina Pretty DO PCP - General Internal Medicine 09/16/20 Shweta Boucher MD PCP - General Internal Medicine 01/12/21 10/10/21 Ora Ronquillo MD [address] [place] [address] PCP - General Internal Medicine 10/11/21 Jl Mendez MD [address] [place] [address] Dr Mont[address] [place] [address] Specialist Cardiovascular Disease 10/13/21 Jannette Boudreaux MD [address] [address] Surgeon Neurosurgery 04/07/22 Tenisha Mendieta PA-C [address] [address] Specialist Neurosurgery 04/07/22 Julio Monk PA-C 175 [facility] [address] [place] [address] Specialist Neurosurgery 04/07/22 Luis Armando Eller MD [address] [address] Specialist ORTHOPEDIC SURGERY 10/01/23 Jayesh Pineda MD [address] [place] [address] Specialist Endocrinology 10/01/23 Kelsi Tejada MD 305 [place] [address] Specialist Allergy & Immunology 10/01/23 Pretty Le MD 175 [facility] [address] [place] [address] Specialist Pulmonology 10/01/23 Vesta Michael PA-C 300 [facility] 210 [place] [address] Specialist Vascular Surgery 10/01/23 [facility] 46 [place], [place] [address] Specialist Optometry 10/01/23 documented as of this encounter
--- OUTSIDE RECORDS SUMMARY | 2024-07-31 10:00 | XMS_ITS | Encounter Summary ---
Author Organization [facility] Address [address] [place] [address] Care Team Providers Care Client Integration Manager Name Role Phone Ora Ronquillo MD Primary Care Prov ider Jl Mendez MD Unavailable [phone] Jannette Boudreaux MD Unavailable [phone] Tenisha Mendieta-C Unavailable Julio Monk-C Unavailable Luis Armando Eller MD Unavailable [phone] Jayesh Pineda MD Unavailable Kelsi Tejada MD Unavailable Unavailable Pretty Le MD Unavailable Vesta Michael PA-C Unavailable [phone] [facility] Unavailable Reason for Visit * Reason Onset Date Comments Surgery (Schedule) 11/22/2023 Encounter Details Date Type Department Care Team Description 11/22/2023 Telephone [facility] Medical [facility] 175 [facility] [address] [place] [phone] Luis Armando Eller MD 175 [facility] [address] [place] [id number] Surgery (Schedule) Social History Tobacco Use Types Packs/Day Years Used Date Smoking Tobacco: Never Smokeless Tobacco: Never Alcohol Use Standard Drinks/Week Comments No 0 (1 standard drink = 0.6 oz pur e alcohol) Education Answer Date Recorded What is the highest level of school you have completed or the highest degree you have received? 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, OUTREACH LIBRARIAN, CHANDRAKANT) 06/14/2020 Sex Assigned at Date Recorded [...] on filedocumented in this encounter Care Teams Client Integration Manager Relationship Specialty Start Date End Date Ora Ronquillo MD 4 [place] [address] PCP - General Internal Medicine 10/11/21 Jl Mendez MD [address] [place] [address] Dr Mont[address] [place] [address] Specialist Cardiovascular Disease 10/13/21 Jannette Boudreaux MD 175 [facility] [address] [place] [address] Surgeon Neurosurgery 04/07/22 Tenisha Mendieta PA-C 175 [facility] [address] [place] [address] Specialist Neurosurgery 04/07/22 Julio Monk PA-C 175 [facility] 300 [place] [address] Specialist Neurosurgery 04/07/22 Luis Armando Eller MD 175 [facility] 250 [place] [address] Specialist ORTHOPEDIC SURGERY 10/01/23 Jayesh Pineda MD 305 [place] [address] Specialist Endocrinology 10/01/23 Kelsi Tejada MD 305 [place] [address] Specialist Allergy & Immunology 10/01/23 Pretty Le MD 175 [facility] 200 [place] [address] Specialist Pulmonology 10/01/23 Vesta Michael PA-C 300 [facility] 210 [place] [address] Specialist Vascular Surgery 10/01/23 [facility] 46 [place] [address] Specialist Optometry 10/01/23 documented as of this encounter
--- OUTSIDE RECORDS SUMMARY | 2024-07-31 10:00 | XMS_ITS | Encounter Summary ---
Author Organization [facility] Address [address] [place] [address] Care Team Providers Care Outpatient Coder Name Role Phone Ora Ronquillo MD Primary Care Prov ider Jl Mendez MD Unavailable Jannette Boudreaux MD Unavailable [phone] Tenisha MendietaC Unavailable Julio Monk-C Unavailable Luis Armando Eller MD Unavailable [phone] Jayesh Pineda MD Unavailable Kelsi Tejada MD Unavailable Unavailable Pretty Le MD Unavailable Vesta Michael PA-C Unavailable [phone] [facility] Unavailable Encounter Details Date Type Department Care Team Description 12/06/2023 SCAN [facility] Medical [facility] 175 [facility] [address] [place] [address] Luis Armando Eller MD 175 [facility] [address] [place], [place] [phone] Social History Tobacco Use Types Packs/Day Years Used Date Smoking Tobacco: Never Smokeless Tobacco: Never Alcohol Use Standard Drinks/Week Comments No 0 (1 standard drink = 0.6 oz pur e alcohol) Education Answer Date Recorded What is the highest level of school you have completed or the highest degree you have received? 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, MAGAZINE FILLER, CHANDRAKANT) 06/14/2020 Sex Assigned at Date Recorded Female 08/03/2020 10:16 PM EDT Job Start Date Occupation Industry Not on file Not on file Not on file documented as of this encounter Plan of Treatment Not on file documented as of this encounter Visit Diagnoses Not on filedocumented in this encounter Care Teams Outpatient Coder Relationship Specialty Start Date End Date Ora Ronquillo MD 444 [place] [address] PCP - General Internal Medicine 10/11/21 Jl Mendez MD [address] [place] [address] Dr Mont[address] [place] [address] Specialist Cardiovascular Disease 10/13/21 Jannette Boudreaux MD [address] [address] Surgeon Neurosurgery 04/07/22 Tenisha Mendieta PA-C [address] [address] Specialist Neurosurgery 04/07/22 Julio Monk PA-C [address] [address] Specialist Neurosurgery 04/07/22 Luis Armando Eller MD [address] [address] Specialist ORTHOPEDIC SURGERY 10/01/23 Jayesh Pineda MD 305 [place] [address] Specialist Endocrinology 10/01/23 Kelsi Tejada MD 305 [place] [address] Specialist Allergy & Immunology 10/01/23 Pretty Le MD 175 [facility] 200 [place] [address] Specialist Pulmonology 10/01/23 Vesta Michael PA-C 300 [facility] 210 [place] [address] Specialist Vascular Surgery 10/01/23 [facility] 46 [place] [address] Specialist Optometry 10/01/23 documented as of this encounter
--- OUTSIDE RECORDS SUMMARY | 2024-07-31 10:00 | XMS_ITS | Encounter Summary ---
Author Organization [facility] Address [address] [place] [address] Care Team Providers Care Inpatient Care Manager Rn Name Role Phone Ora Ronquillo MD Primary Care Prov ider Jl Mendez MD Unavailable Jannette Boudreaux MD Unavailable [phone] Tenisha MendietaC Unavailable [phone] Julio Monk-C Unavailable Luis Armando Eller MD Unavailable [phone] Jayesh Pineda MD Unavailable Kelsi Tejada MD Unavailable Unavailable Pretty Le MD Unavailable Vesta Michael PA-C Unavailable [facility] Unavailable Encounter Details Date Type Department Care Team Description 12/06/2023 SCAN [facility] Medical [facility] 175 [facility] [address] [place] [address] Luis Armando Eller MD 175 [facility] [address] [place], [place] [id number] Social History Tobacco Use Types Packs/Day Years Used Date Smoking Tobacco: Never Smokeless Tobacco: Never Alcohol Use Standard Drinks/Week Comments No 0 (1 standard drink = 0.6 oz pur e alcohol) Education Answer Date Recorded What is the highest level of school you have completed or the highest degree you have received? 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, BASIC ACOUSTIC ANALYST, CHANDRAKANT) 06/14/2020 Sex Assigned at Date Recorded Female 08/03/2020 10:16 PM EDT Job Start Date Occupation Industry Not on file Not on file Not on file documented as of this encounter Plan of Treatment Not on file documented as of this encounter Visit Diagnoses Not on filedocumented in this encounter Care Teams Inpatient Care Manager Rn Relationship Specialty Start Date End Date Ora Ronquillo MD [address] [place] [address] PCP - General Internal Medicine 10/11/21 Jl Mendez MD [address] [place] [address] Dr Mont[address] [place] [address] Specialist Cardiovascular Disease 10/13/21 Jannette Boudreaux MD [address] [address] Surgeon Neurosurgery 04/07/22 Tenisha Mendieta PA-C [address] [address] Specialist Neurosurgery 04/07/22 Julio Monk PA-C [address] [address] Specialist Neurosurgery 04/07/22 Luis Armando Eller MD [address] [address] Specialist ORTHOPEDIC SURGERY 10/01/23 Jayesh Pineda MD 305 [place] [address] Specialist Endocrinology 10/01/23 Kelsi Tejada MD 305 [place] [address] Specialist Allergy & Immunology 10/01/23 Pretty Le MD 175 [facility] 200 [place] [address] Specialist Pulmonology 10/01/23 Vesta Michael PA-C 300 [facility] 210 [place] [address] Specialist Vascular Surgery 10/01/23 [facility] 46 [place] [address] Specialist Optometry 10/01/23 documented as of this encounter
--- OUTSIDE RECORDS SUMMARY | 2024-07-31 10:00 | XMS_ITS | Encounter Summary ---
Author Organization [facility] Address [address] [place] [address] Care Team Providers Care Fullerette Name Role Phone Ora Ronquillo MD Primary Care Prov ider Jl Mendez MD Unavailable Jannette Boudreaux MD Unavailable [phone] Tenisha MendietaC Unavailable Julio Monk-C Unavailable [phone] Luis Armando Eller MD Unavailable [phone] Jayesh Pineda MD Unavailable Kelsi Tejada MD Unavailable Unavailable Pretty Le MD Unavailable Vesta Michael PA-C Unavailable [phone] [facility] Unavailable [phone] Encounter Details Date Type Department Care Team Description 11/28/2023 SCAN [facility] Medical [facility] 175 [facility] [address] [place] [address] Luis Armando Eller MD 175 [facility] [address] [place], [place] [id number] Social History Tobacco Use Types Packs/Day Years Used Date Smoking Tobacco: Never Smokeless Tobacco: Never Alcohol Use Standard Drinks/Week Comments No 0 (1 standard drink = 0.6 oz pur e alcohol) Education Answer Date Recorded What is the highest level of school you have completed or the highest degree you have received? 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, CHUCK TENDER, CHANDRAKANT) 06/14/2020 Sex Assigned at Date Recorded Female 08/03/2020 10:16 PM EDT Job Start Date Occupation Industry Not on file Not on file Not on file documented as of this encounter Plan of Treatment Not on file documented as of this encounter Visit Diagnoses Not on filedocumented in this encounter Care Teams Fullerette Relationship Specialty Start Date End Date Ora Ronquillo MD [address] [place] [address] PCP - General Internal Medicine 10/11/21 lJ Mendez MD [address] [place] [address] Dr Mont[address] [place] [address] Specialist Cardiovascular Disease 10/13/21 Jannette Boudreaux MD [address] [address] Surgeon Neurosurgery 04/07/22 Tenisha Mendieta PA-C [address] [address] Specialist Neurosurgery 04/07/22 Julio Monk PA-C [address] [address] Specialist Neurosurgery 04/07/22 Luis Armando Eller MD [address] [address] Specialist ORTHOPEDIC SURGERY 10/01/23 Jayesh Pineda MD 305 [place] [address] Specialist Endocrinology 10/01/23 Kelsi Tejada MD 305 [place] [address] Specialist Allergy & Immunology 10/01/23 Pretty Le MD 175 [facility] 200 [place] [address] Specialist Pulmonology 10/01/23 Vesta Michael PA-C 300 [facility] 210 [place] [address] Specialist Vascular Surgery 10/01/23 [facility] 46 [place] [address] Specialist Optometry 10/01/23 documented as of this encounter
--- OUTSIDE RECORDS SUMMARY | 2024-07-31 10:00 | XMS_ITS | Encounter Summary ---
Author Organization [facility] Address [address] [place] [address] Care Team Providers Care Youth Probation Officer Name Role Phone Ora Ronquillo MD Primary Care Prov ider Jl Mendez MD Unavailable [phone] Jannette Boudreaux MD Unavailable [phone] Tenisha Mendieta-C Unavailable Julio Monk-C Unavailable [phone] Luis Armando Eller MD Unavailable [phone] Jayesh Pineda MD Unavailable Kelsi Tejada MD Unavailable Unavailable Pretty Le MD Unavailable Vesta Michael PA-C Unavailable [facility] Unavailable Encounter Details Date Type Department Care Team Description 10/16/2023 [facility] Records [facility] Medical [facility] [address] [id number] Luis Armando Eller MD [address] [id number] Social History Tobacco Use Types Packs/Day Years Used Date Smoking Tobacco: Never Smokeless Tobacco: Never Alcohol Use Standard Drinks/Week Comments No 0 (1 standard drink = 0.6 oz pur e alcohol) Education Answer Date Recorded What is the highest level of school you have completed or the highest degree you have received? 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, INGOT PASSER, CHANDRAKANT) 06/14/2020 Sex Assigned at Date Recorded Female 08/03/2020 10:16 PM EDT Job Start Date Occupation Industry Not on file Not on file Not on file documented as of this encounter Plan of Treatment Not on file documented as of this encounter Visit Diagnoses Not on filedocumented in this encounter Care Teams Youth Probation Officer Relationship Specialty Start Date End Date Ora Ronquillo MD 444 [place] [address] PCP - General Internal Medicine 10/11/21 Jl Mendez MD [address] [place] [address] Dr Mont[address] [place] [address] Specialist Cardiovascular Disease 10/13/21 Jannette Boudreaux MD [address] [address] Surgeon Neurosurgery 04/07/22 Tenisha Mendieta PA-C [address] [address] Specialist Neurosurgery 04/07/22 Julio Monk PA-C [address] [address] Specialist Neurosurgery 04/07/22 Luis Armando Eller MD [address] [address] Specialist ORTHOPEDIC SURGERY 10/01/23 Jayesh Pineda MD 305 [place] [address] Specialist Endocrinology 10/01/23 Kelsi Tejada MD 305 [place] [address] Specialist Allergy & Immunology 10/01/23 Pretty Le MD 175 [facility] 200 [place] [address] Specialist Pulmonology 10/01/23 Vesta Michael PA-C 300 [facility] 210 [place] [address] Specialist Vascular Surgery 10/01/23 [facility] 46 [place] [address] Specialist Optometry 10/01/23 documented as of this encounter
--- OUTSIDE RECORDS SUMMARY | 2024-07-31 10:00 | XMS_ITS | Encounter Summary ---
Author Organization [facility] Address [address] [place] [address] Care Team Providers Care Equipment Monitor Phototypesetting Name Role Phone Shweta Tellez MD Primary Care Provider Ora Diaz MD Primary Care Prov ider Jl Mendez MD Unavailable Jannette Boudreaux MD Unavailable [phone] Tenisha Mendieta PA-C Unavailable Julio Monk PA-C Unavailable [phone] Luis Armando Eller MD Unavailable [phone] Jayesh Pineda MD Unavailable Kelsi Tejada MD Unavailable Unavailable Pretty Le MD Unavailable Vesta Michael PA-C Unavailable [phone] [facility] Unavailable Reason for Visit * Reason Onset Date Comments heartburn 08/31/2021 Encounter Details Date Type Department Care Team Description 08/31/2021 Telephone Adult Medicine [address] [id number] Shweta Tellez MD heartburn Social History Tobacco Use Types Packs/Day Years Used Date Smoking Tobacco: Never Smokeless Tobacco: Never Alcohol Use Standard Drinks/Week Comments No 0 (1 standard drink = 0.6 oz pur e alcohol) Education Answer Date Recorded What is the highest level of school you have completed or the highest degree you have received? 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, POWER ELECTRONICS ENGINEER, CHANDRAKANT) 06/14/2020 Sex Assigned at Date [...] patient she was [place] [facility] [facility] [place] [...] traveled recently to another state outside of [place], [place], [place], [place], [place], [place], [place]? NO o If yes, did you [...] vehicle accident? NO If yes, gather 3rd alliance party insurance information Date of accident/Injury: How long has patient had these symptoms?: 1.5 weeks PCP: Shweta Tellez Payor: [employer] FFS / Plan: [employer] / Product Type: MEDICAID RISK documented in this encounter Plan of Treatment Not on file documented as of this encounter Visit Diagnoses Not on filedocumented in this encounter Care Teams Equipment Monitor Phototypesetting Relationship Specialty Start Date End Date Shweta Tellez MD PCP - General Internal Medicine 01/12/21 10/10/21 Ora Ronuqillo MD [address] [place] [address] PCP - General Internal Medicine 10/11/21 Jl Mendez MD [address] [place] [address] [place] [address] Specialist Cardiovascular Disease 10/13/21 Jannette Boudreaux MD [address] [address] Surgeon Neurosurgery 04/07/22 Tenisha Mendieta PA-C [address] [address] Specialist Neurosurgery 04/07/22 Julio Monk PA-C [address] [address] Specialist Neurosurgery 04/07/22 Luis Armando Eller MD 175 [facility] [address] [place] [address] Specialist ORTHOPEDIC SURGERY 10/01/23 Jayesh Pineda MD 305 [place] [address] Specialist Endocrinology 10/01/23 Kelsi Tejada MD 305 [place] [address] Specialist Allergy & Immunology 10/01/23 Pretty Le MD 175 [facility] [address] [place] [address] Specialist Pulmonology 10/01/23 Vesta Michael PA-C 300 [facility] [address] [place] [address] Specialist Vascular Surgery 10/01/23 [facility] 46 [place] [address] Specialist Optometry 10/01/23 documented as of this encounter
--- OUTSIDE RECORDS SUMMARY | 2024-07-31 10:00 | XMS_ITS | Encounter Summary ---
Author Organization [facility] Address [address] [place] [address] Care Team Providers Care Production Planning Supervisor Name Role Phone Teressa Solis DO Primary Care Pro vider Unavailable Mina Pretty DO Primary Care Provider Shweta Cronin MD Primary Care Provider Ora Diaz MD Primary Care Prov ider Jl Mendez MD Unavailable [phone] Jannette Boudreaux MD Unavailable [phone] Tenisha Mendieta PA-C Unavailable Julio Monk PA-C Unavailable Luis Armando Eller MD Unavailable [phone] Jayesh Pineda MD Unavailable Kelsi Tejada MD Unavailable Unavailable Pretty Le MD Unavailable Vesta Michael PA-C Unavailable [phone] [facility] Unavailable [phone] Encounter Details Date Type Department Care Team Description 04/19/2020 Master Electrician Report Medical Records [address] [place] [address] Jose Daniel Nguyễn MD Social History Tobacco [...] filedocumented in this encounter Care Teams Production Planning Supervisor Relationship Specialty Start Date End Date Teressa Solis DO PCP - General Internal Medicine 12/18/13 09/15/20 Mina Pretty DO PCP - General Internal Medicine 09/16/20 Shweta Boucher MD PCP - General Internal Medicine 01/12/21 10/10/21 Ora Ronquillo MD [address] [place] [address] PCP - General Internal Medicine 10/11/21 Jl Mendez MD [address] [place] [address] Dr Mont[address] [place] [address] Specialist Cardiovascular Disease 10/13/21 Jannette Boudreaux MD [address] [address] Surgeon Neurosurgery 04/07/22 Tenisha Mendieta PA-C [address] [address] Specialist Neurosurgery 04/07/22 Julio Monk PA-C 175 [facility] [address] [place] [address] Specialist Neurosurgery 04/07/22 Luis Armando Eller MD [address] [address] Specialist ORTHOPEDIC SURGERY 10/01/23 Jayesh Pineda MD [address] [place] [address] Specialist Endocrinology 10/01/23 Kelsi Tejada MD 305 [place] [address] Specialist Allergy & Immunology 10/01/23 Pretty Le MD 175 [facility] [address] [place] [address] Specialist Pulmonology 10/01/23 Vesta Michael PA-C 300 [facility] 210 [place] [address] Specialist Vascular Surgery 10/01/23 [facility] 46 [place] [address] Specialist Optometry 10/01/23 documented as of this encounter
--- OUTSIDE RECORDS SUMMARY | 2024-07-31 10:00 | XMS_ITS | Encounter Summary ---
Author Organization [facility] Address [address] [place] [address] Care Team Providers Care Poultry Scalder Name Role Phone Teressa Solis DO Primary Care Pro vider Unavailable Mina Pretty DO Primary Care Provider Shweta Cronin MD Primary Care Provider Ora Diaz MD Primary Care Prov ider Jl Mendez MD Unavailable Jannette Boudreaux MD Unavailable [phone] Tenisha Mendieta PA-C Unavailable Julio Monk PA-C Unavailable Luis Armando Eller MD Unavailable [phone] Jayesh Pineda MD Unavailable Kelsi Tejada MD Unavailable Unavailable Pretty Le MD Unavailable Vesta Michael PA-C Unavailable [facility] Unavailable Encounter Details Date Type Department Care Team Description 03/06/2018 Guard Rail Installer Report Medical Records 4 [place] [address] Abstract, Provider Social History Tobacco Use Types [...] on filedocumented in this encounter Care Teams Poultry Scalder Relationship Specialty Start Date End Date Teressa Solis DO PCP - General Internal Medicine 12/18/13 09/15/20 Mina Pretty DO PCP - General Internal Medicine 09/16/20 Shweta Boucher MD PCP - General Internal Medicine 01/12/21 10/10/21 Ora Ronquillo MD [address] [place] [address] PCP - General Internal Medicine 10/11/21 Jl Mendez MD [address] [place] [address] Specialist Cardiovascular Disease 10/13/21 Jannette Boudreaux MD [address] [address] Surgeon Neurosurgery 04/07/22 Tenisha Mendieta PA-C [address] [address] Specialist Neurosurgery 04/07/22 Julio Monk PA-C [address] [address] Specialist Neurosurgery 04/07/22 Luis Armando Eller MD [address] [address] Specialist ORTHOPEDIC SURGERY 10/01/23 Jayesh Pineda MD 305 [place] [address] Specialist Endocrinology 10/01/23 Kelsi Tejada MD 305 [place] [address] Specialist Allergy & Immunology 10/01/23 Pretty Le MD 175 [facility] [address] [place] [address] Specialist Pulmonology 10/01/23 Vesta Michael PA-C 300 [facility] [address] [place] [address] Specialist Vascular Surgery 10/01/23 [facility] 46 [place] [address] Specialist Optometry 10/01/23 documented as of this encounter
--- OUTSIDE RECORDS SUMMARY | 2024-07-31 10:00 | XMS_ITS | Encounter Summary ---
Author Organization [facility] Address [address] [place] [address] Care Team Providers Care Back Stayer Name Role Phone Ora Ronquillo MD Primary Care Prov ider Jl Mendez MD Unavailable Jannette Boudreaux MD Unavailable [phone] Tenisha Mendieta PA-C Unavailable [phone] Julio MonkC Unavailable Luis Armando Eller MD Unavailable [phone] Jayesh Pineda MD Unavailable Kelsi Tejada MD Unavailable Unavailable Pretty Le MD Unavailable Vesta Michael PA-Pina Unavailable [phone] [facility] Unavailable [phone] Encounter Details Date Type Department Care Team Description 04/17/2022 Release of Information Medical Records [address] [place] [address] Abstract, Provider Social History Tobacco Use Types Packs/Day Years Used Date Smoking Tobacco: Never Smokeless Tobacco: Never Alcohol Use Standard Drinks/Week Comments No 0 (1 standard drink = 0.6 oz pur e alcohol) Education Answer Date Recorded What is the highest level of school you have completed or the highest degree you have received? 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, TILT TRAY DRIVER, CHANDRAKANT) 06/14/2020 Sex Assigned at Date [...] on filedocumented in this encounter Care Teams Back Stayer Relationship Specialty Start Date End Date Ora Ronquillo MD 444 [place] [address] PCP - General Internal Medicine 10/11/21 Jl Mendez MD [address] [place] [address] Dr Mont[address] [place] [address] Specialist Cardiovascular Disease 10/13/21 Jannette Boudreaux MD 175 [facility] 300 [place] [address] Surgeon Neurosurgery 04/07/22 Tenisha Mendieta PA-C [address] [address] Specialist Neurosurgery 04/07/22 Julio Monk PA-C [address] [address] Specialist Neurosurgery 04/07/22 Luis Armando Eller MD [address] [address] Specialist ORTHOPEDIC SURGERY 10/01/23 Jayesh Pineda MD 305 [place] [address] Specialist Endocrinology 10/01/23 Kelsi Tejada MD 305 [place] [address] Specialist Allergy & Immunology 10/01/23 Pretty Le MD 175 [facility] 200 [place] [address] Specialist Pulmonology 10/01/23 Vesta Michael PA-C 300 [facility] 210 [place] [address] Specialist Vascular Surgery 10/01/23 [facility] 46 [place] [address] Specialist Optometry 10/01/23 documented as of this encounter
--- OUTSIDE RECORDS SUMMARY | 2024-07-31 10:00 | XMS_ITS | Encounter Summary ---
Author Organization [facility] Address [address] [place] [address] Care Team Providers Care Precision Grinder External Name Role Phone Ora Ronquillo MD Primary Care Prov ider Jl Mendez MD Unavailable [phone] Jannette Boudreaux MD Unavailable [phone] Tenisha Mendieta PA-C Unavailable Julio Monk PA-C Unavailable Luis Armando Eller MD Unavailable [phone] Jayesh Pineda MD Unavailable Kelsi Tejada MD Unavailable Unavailable Pretty Le MD Unavailable Vesta Michael PA-C Unavailable [facility] Unavailable Encounter Details Date Type Department Care Team Description 11/30/2023 Telephone [facility] Medical [facility] 175 [facility] [address] [place] [address] Lorie Moore, DONN 15[address] [facility] [place] [address] Social History Tobacco Use Types Packs/Day Years Used Date Smoking Tobacco: Never Smokeless Tobacco: Never Alcohol Use Standard Drinks/Week Comments No 0 (1 standard drink = 0.6 oz pur e alcohol) Education Answer Date Recorded What is the highest level of school you have completed or the highest degree you have received? 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, ELECTRON MICROPROBE OPERATOR, CHANDRAKANT) 06/14/2020 Sex Assigned at Date [...] on filedocumented in this encounter Care Teams Precision Grinder External Relationship Specialty Start Date End Date Ora Ronquillo MD 444 [place] [address] PCP - General Internal Medicine 10/11/21 Jl Mendez MD [address] [place] [address] Dr [address] [place] [address] Specialist Cardiovascular Disease 10/13/21 Jannette Boudreaux MD [address] [address] Surgeon Neurosurgery 04/07/22 Tenisha Mendieta PA-C [address] [address] Specialist Neurosurgery 04/07/22 Julio Monk PA-C 175 [facility] [address] [place] [address] Specialist Neurosurgery 04/07/22 Luis Armando Eller MD [address] [address] Specialist ORTHOPEDIC SURGERY 10/01/23 Jayesh Pineda MD 305 [place] [address] Specialist Endocrinology 10/01/23 Kelsi Tejada MD 305 [place] [address] Specialist Allergy & Immunology 10/01/23 Pretty Le MD 175 [facility] [address] [place] [address] Specialist Pulmonology 10/01/23 Vesta Michael PA-C 300 [facility] 210 [place] [address] Specialist Vascular Surgery 10/01/23 [facility] 46 [place] [address] Specialist Optometry 10/01/23 documented as of this encounter
--- OUTSIDE RECORDS SUMMARY | 2024-07-31 10:00 | XMS_ITS | Encounter Summary ---
Author Organization [facility] Address [address] [place] [address] Care Team Providers Care Senior International Tax Manager Name Role Phone Ora Ronquillo MD Primary Care Prov ider Jl Mendez MD Unavailable Jannette Boudreaux MD Unavailable [phone] Tenisha Mendieta-C Unavailable Julio Monk PA-C Unavailable Luis Armando Eller MD Unavailable [phone] Jayesh Pineda MD Unavailable Kelsi Tejada MD Unavailable Unavailable Pretty Le MD Unavailable Vesta Michael PA-C Unavailable [phone] [facility] Unavailable Encounter Details Date Type Department Care Team Description 11/14/2023 SCAN [facility] Medical [facility] 175 [facility] [address] [place] [phone] Lorie Moore, DONN [address] [place] [address] Social History Tobacco Use Types Packs/Day Years Used Date Smoking Tobacco: Never Smokeless Tobacco: Never Alcohol Use Standard Drinks/Week Comments No 0 (1 standard drink = 0.6 oz pur e alcohol) Education Answer Date Recorded What is the highest level of school you have completed or the highest degree you have received? 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, QUOTATION CHECKER, CHANDRAKANT) 06/14/2020 Sex Assigned at Date Recorded Female 08/03/2020 10:16 PM EDT Job Start Date Occupation Industry Not on file Not on file Not on file documented as of this encounter Plan of Treatment Not on file documented as of this encounter Visit Diagnoses Not on filedocumented in this encounter Care Teams Senior International Tax Manager Relationship Specialty Start Date End Date Ora Ronquillo MD [address] [place] [address] PCP - General Internal Medicine 10/11/21 Jl Mendez MD [address] [place] [address] Dr Mont[address] [place] [address] Specialist Cardiovascular Disease 10/13/21 Jannette Boudreaux MD [address] [address] Surgeon Neurosurgery 04/07/22 Tenisha Mendieta PA-C [address] [address] Specialist Neurosurgery 04/07/22 Julio Monk PA-C 175 [facility] 300 [place] [address] Specialist Neurosurgery 04/07/22 Luis Armando Eller MD [address] [address] Specialist ORTHOPEDIC SURGERY 10/01/23 Jayesh Pineda MD 305 [place] [address] Specialist Endocrinology 10/01/23 Kelsi Tejada MD 305 [place] [address] Specialist Allergy & Immunology 10/01/23 Pretty Le MD 175 [facility] 200 [place] [address] Specialist Pulmonology 10/01/23 Vesta Michael PA-C 300 [facility] 210 [place] [address] Specialist Vascular Surgery 10/01/23 [facility] 46 [place] [address] Specialist Optometry 10/01/23 documented as of this encounter
--- OUTSIDE RECORDS SUMMARY | 2024-07-31 10:01 | XMS_ITS | Encounter Summary ---
Author Organization [facility] Address [address] [place] [address] Care Team Providers Care Surgical Technology Instructor Name Role Phone Teressa Solis DO Primary Care Pro vider Unavailable Mina Pretty DO Primary Care Provider Shweta Cronin MD Primary Care Provider Ora Diaz MD Primary Care Prov ider Jl Mendez MD Unavailable Jannette Boudreaux MD Unavailable [phone] Tenisha Mendieta PA-C Unavailable Julio Monk PA-C Unavailable Luis Armando Eller MD Unavailable [phone] Jayesh Pineda MD Unavailable Kelsi Tejada MD Unavailable Unavailable Pretty Le MD Unavailable Vesta Michael PA-C Unavailable [facility] Unavailable Reason for Visit * Reason Onset Date Comments refill request 08/21/2019 Encounter Details Date Type Department Care Team Description 08/21/2019 Refill Adult Urgent Care - [address] [address] Dez Tristan MD refill request Social History [...] filedocumented in this encounter Care Teams Surgical Technology Instructor Relationship Specialty Start Date End Date Teressa Solis DO PCP - General Internal Medicine 12/18/13 09/15/20 Mina Pretty DO PCP - General Internal Medicine 09/16/20 Shweta Boucher MD PCP - General Internal Medicine 01/12/21 10/10/21 Ora Ronquillo MD [address] [place] [address] PCP - General Internal Medicine 10/11/21 Jl Mendez MD [address] [place] [address] Dr [address] [place] [address] Specialist Cardiovascular Disease 10/13/21 Jannette Bodureaux MD [address] [address] Surgeon Neurosurgery 04/07/22 Tenisha Mendieta PA-C [address] [address] Specialist Neurosurgery 04/07/22 Julio Monk PA-C [address] [place] [address] Specialist Neurosurgery 04/07/22 Luis Armando Eller MD 175 [facility] 250 [place] [address] Specialist ORTHOPEDIC SURGERY 10/01/23 Jayesh Pineda MD 305 [place] [address] Specialist Endocrinology 10/01/23 Kelsi Tejada MD 305 [place] [address] Specialist Allergy & Immunology 10/01/23 Pretty Le MD 175 [facility] 200 [place] [address] Specialist Pulmonology 10/01/23 Vesta Michael PA-C 300 [facility] 210 [place] [address] Specialist Vascular Surgery 10/01/23 [facility] 46 [place] [address] Specialist Optometry 10/01/23 documented as of this encounter
--- OUTSIDE RECORDS SUMMARY | 2024-07-31 10:01 | XMS_ITS | Encounter Summary ---
Author Organization [facility] Address [address] [place] [address] Care Team Providers Care Railroad Conductor Name Role Phone Teressa Solis DO Primary Care Pro vider Unavailable Mina Pretty DO Primary Care Provider Shweta Cronin MD Primary Care Provider Ora Diaz MD Primary Care Prov ider Jl Mendez MD Unavailable [phone] Jannette Boudreaux MD Unavailable [phone] Tenisha Mendieta PA-C Unavailable Julio Monk PA-C Unavailable Luis Armando Eller MD Unavailable [phone] Jayesh Pineda MD Unavailable Klesi Tejada MD Unavailable Unavailable Pretty Le MD Unavailable Vesta Michael PA-C Unavailable [phone] [facility] Unavailable Reason for Visit * Reason Onset Date Comments Mychart Rx Refill 12/13/2019 Encounter Details Date Type Department Care Team Description 12/13/2019 Refill Adult Medicine [address] [address] Teressa Solis DO Mychart Rx Refill Social [...] filedocumented in this encounter Care Teams Railroad Conductor Relationship Specialty Start Date End Date Teressa Solis DO PCP - General Internal Medicine 12/18/13 09/15/20 Mina Pretty DO PCP - General Internal Medicine 09/16/20 1 Shweta Tellez MD PCP - General Internal Medicine 01/12/21 10/10/21 Ora Ronquillo MD [address] [place] [address] PCP - General Internal Medicine 10/11/21 Jl Mendez MD [address] [place] [address] Dr Montiel [address] [place] [address] Specialist Cardiovascular Disease 10/13/21 Jannette Boudreaux MD [address] [address] Surgeon Neurosurgery 04/07/22 Tenisha Mendieta PA-C [address] [address] Specialist Neurosurgery 04/07/22 Julio Monk PA-C [address] [address] Specialist Neurosurgery 04/07/22 Luis Armando Eller MD [address] [address] Specialist ORTHOPEDIC SURGERY 10/01/23 Jayesh Pineda MD 305 [place] [address] Specialist Endocrinology 10/01/23 Kelsi Tejada MD 305 [place] [address] Specialist Allergy & Immunology 10/01/23 Pretty Le MD 175 [facility] 200 [place] [address] Specialist Pulmonology 10/01/23 Vesta Michael PA-C 300 [facility] 210 [place] [address] Specialist Vascular Surgery 10/01/23 [facility] 46 [place] [address] Specialist Optometry 10/01/23 documented as of this encounter
--- OUTSIDE RECORDS SUMMARY | 2024-07-31 10:01 | XMS_ITS | Encounter Summary ---
Author Organization [facility] Address [address] [place] [address] Care Team Providers Care Slimer Name Role Phone Ora Ronquillo MD Primary Care Prov ider Jl Mendez MD Unavailable Jannette Boudreaux MD Unavailable [phone] Tenisha MendietaC Unavailable Julio Monk-C Unavailable Luis Armando Eller MD Unavailable [phone] Jayesh Pineda MD Unavailable Kelsi Tejada MD Unavailable Unavailable Pretty Le MD Unavailable Vesta Michael PA-C Unavailable [facility] Unavailable Encounter Details Date Type Department Care Team Description 08/24/2023 SCAN [facility] Medical [facility] 175 [facility] [address] [place] [address] Luis Armando Eller MD 175 [facility] [address] [place], [place] [id number] Social History Tobacco Use Types Packs/Day Years Used Date Smoking Tobacco: Never Smokeless Tobacco: Never Alcohol Use Standard Drinks/Week Comments No 0 (1 standard drink = 0.6 oz pur e alcohol) Education Answer Date Recorded What is the highest level of school you have completed or the highest degree you have received? 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, SERVICE PARTS DRIVER, CHANDRAKANT) 06/14/2020 Sex Assigned at Date Recorded Female 08/03/2020 10:16 PM EDT Job Start Date Occupation Industry Not on file Not on file Not on file documented as of this encounter Plan of Treatment Not on file documented as of this encounter Visit Diagnoses Not on filedocumented in this encounter Care Teams Slimer Relationship Specialty Start Date End Date Ora Ronquillo MD [address] [place] [address] PCP - General Internal Medicine 10/11/21 Jl Mendez MD [address] [place] [address] Dr Mont[address] [place] [address] Specialist Cardiovascular Disease 10/13/21 Jannette Boudreaux MD [address] [address] Surgeon Neurosurgery 04/07/22 Tenisha Mendieta PA-C [address] [address] Specialist Neurosurgery 04/07/22 Julio Monk PA-C [address] [address] Specialist Neurosurgery 04/07/22 Luis Armando Eller MD [address] [address] Specialist ORTHOPEDIC SURGERY 10/01/23 Jayesh Pineda MD 305 [place] [address] Specialist Endocrinology 10/01/23 Kelsi Tejada MD 305 [place] [address] Specialist Allergy & Immunology 10/01/23 Pretty Le MD 175 [facility] 200 [place] [address] Specialist Pulmonology 10/01/23 Vesta Michael PA-C 300 [facility] 210 [place] [address] Specialist Vascular Surgery 10/01/23 [facility] 46 [place] [address] Specialist Optometry 10/01/23 documented as of this encounter
--- OUTSIDE RECORDS SUMMARY | 2024-07-31 10:01 | XMS_ITS | Encounter Summary ---
Author Organization [facility] Address [address] [place] [address] Care Team Providers Care Turbine Room Attendant Name Role Phone Shweta Tellez MD Primary Care Provider Ora Diaz MD Primary Care Prov ider Jl Mendez MD Unavailable [phone] Jannette Boudreaux MD Unavailable [phone] Tenisha Mendieta PA-C Unavailable [phone] Julio Monk PA-C Unavailable Luis Armando Eller MD Unavailable [phone] Jayesh Pineda MD Unavailable Kelsi Tejada MD Unavailable Unavailable Pretty Le MD Unavailable Vesta Michael-C Unavailable [phone] [facility] Unavailable [phone] Encounter Details Date Type Department Care Team Description 10/06/2021 French Translator Report Medical Records 444 [place] [address] Jorge Belcher II Social History Tobacco Use Types Packs/Day Years Used Date Smoking Tobacco: Never Smokeless Tobacco: Never Alcohol Use Standard Drinks/Week Comments No 0 (1 standard drink = 0.6 oz pur e alcohol) Education Answer Date Recorded What is the highest level of school you have completed or the highest degree you have received? 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, MOLD CARRIER, CHANDRAKANT) 06/14/2020 Sex Assigned at Date [...] on filedocumented in this encounter Care Teams Turbine Room Attendant Relationship Specialty Start Date End Date Shweta Tellez MD PCP - General Internal Medicine 01/12/21 10/10/21 Ora Ronquillo MD [address] [place] [address] PCP - General Internal Medicine 10/11/21 Jl Mendez MD [address] [place] [address] Dr Mont[address] [place] [address] Specialist Cardiovascular Disease 10/13/21 Jannette Boudreaux MD [address] [address] Surgeon Neurosurgery 04/07/22 Tenisha Mendieta PA-C [address] [address] Specialist Neurosurgery 04/07/22 Julio Monk PA-C 175 [facility] [address] [place] [address] Specialist Neurosurgery 04/07/22 Luis Armando Eller MD [address] [address] Specialist ORTHOPEDIC SURGERY 10/01/23 Jayesh Pineda MD 305 [place] [address] Specialist Endocrinology 10/01/23 Kelsi Tejada MD 305 [place] [address] Specialist Allergy & Immunology 10/01/23 Pretty Le MD 175 [facility] [address] [place] [address] Specialist Pulmonology 10/01/23 Vesta Michael PA-C 300 [facility] [address] [place] [address] Specialist Vascular Surgery 10/01/23 [facility] 46 [place] [address] Specialist Optometry 10/01/23 documented as of this encounter
--- OUTSIDE RECORDS SUMMARY | 2024-07-31 10:01 | XMS_ITS | Encounter Summary ---
Author Organization [facility] Address [address] [place] [address] Care Team Providers Care Commercial Coordinator Name Role Phone Teressa Solis DO Primary Care Pro vider Unavailable Mina Pretty DO Primary Care Provider Ailyn Shweta Pretty MD Primary Care Provider Ora Diaz MD Primary Care Prov ider Jl Mendez MD Unavailable [phone] Jannette Boudreaux MD Unavailable [phone] Tenisha Mendieta PA-C Unavailable Julio Monk PA-C Unavailable Luis Armando Eller MD Unavailable [phone] Jayesh Pineda MD Unavailable Kelsi Tejada MD Unavailable Unavailable Pretty Le MD Unavailable Vesta Michael PA-C Unavailable [phone] [facility] Unavailable Encounter Details Date Type Department Care Team Description 10/09/2019 Beading Machine Operator Report Medical Records 444 [place] [address] Bill Wills MD Social History Tobacco Use [...] on filedocumented in this encounter Care Teams Commercial Coordinator Relationship Specialty Start Date End Date Teressa Solis DO PCP - General Internal Medicine 12/18/13 09/15/20 Mina Pretty DO PCP - General Internal Medicine 09/16/20 Shweta Boucher MD PCP - General Internal Medicine 01/12/21 10/10/21 Ora Ronquillo MD [address] [place] [address] PCP - General Internal Medicine 10/11/21 Jl Mendez MD [address] [place] [address] Specialist Cardiovascular Disease 10/13/21 Jannette Boudreaux MD [address] [address] Surgeon Neurosurgery 04/07/22 Tenisha Mendieta PA-C [address] [address] Specialist Neurosurgery 04/07/22 Julio Monk PA-C [address] [address] Specialist Neurosurgery 04/07/22 Luis Armando Eller MD [address] [address] Specialist ORTHOPEDIC SURGERY 10/01/23 Jayesh Pineda MD 305 [place] [address] Specialist Endocrinology 10/01/23 Kelsi Tejada MD 305 [place] [address] Specialist Allergy & Immunology 10/01/23 Pretty Le MD 175 [facility] [address] [place] [address] Specialist Pulmonology 10/01/23 Vesta Michael PA-C 300 [facility] [address] [place] [address] Specialist Vascular Surgery 10/01/23 [facility] 46 [place] [address] Specialist Optometry 10/01/23 documented as of this encounter
--- OUTSIDE RECORDS SUMMARY | 2024-07-31 10:01 | XMS_ITS | Encounter Summary ---
Author Organization [facility] Address [address] [place] [address] Care Team Providers Care Plater Apprentice Name Role Phone Teressa Solis DO Primary Care Pro vider Unavailable Mina Pretty DO Primary Care Provider Ailyn Shweta Pretty MD Primary Care Provider Ora Diaz MD Primary Care Prov ider Jl Mendez MD Unavailable Jannette Boudreaux MD Unavailable [phone] Tenisha Mendieta PA-C Unavailable [phone] Julio Monk PA-C Unavailable Luis Armando Eller MD Unavailable [phone] Jayesh Pineda MD Unavailable Kelsi Tejada MD Unavailable Unavailable Pretty Le MD Unavailable Vesta Michael PA-C Unavailable [facility] Unavailable Encounter Details Date Type Department Care Team Description 08/19/2019 Refill Gastroenterology [facility] 175 [facility] [address] [place] [address] Luis Armando Staton MD Social [...] on filedocumented in this encounter Care Teams Plater Apprentice Relationship Specialty Start Date End Date Teressa Solis DO PCP - General Internal Medicine 12/18/13 09/15/20 Mina Pretty DO PCP - General Internal Medicine 09/16/20 Shweta Boucher MD PCP - General Internal Medicine 01/12/21 10/10/21 Ora Ronquillo MD [address] [place] [address] PCP - General Internal Medicine 10/11/21 Jl Mendez MD [address] [place] [address] Dr Mont[address] [place] [address] Specialist Cardiovascular Disease 10/13/21 Jannette Boudreaux MD [address] [address] Surgeon Neurosurgery 04/07/22 Tenisha Mendieta PA-C [address] [address] Specialist Neurosurgery 04/07/22 Julio Monk PA-C [address] [address] Specialist Neurosurgery 04/07/22 Luis Armando Eller MD [address] [address] Specialist ORTHOPEDIC SURGERY 10/01/23 Jayesh Pineda MD 305 [place] [address] Specialist Endocrinology 10/01/23 Kelsi Tejada MD 305 [facility] [address] Specialist Allergy & Immunology 10/01/23 Pretty Le MD 175 [facility] [address] [place] [address] Specialist Pulmonology 10/01/23 Vesta Michael PA-C 300 [facility] 210 [place] [address] Specialist Vascular Surgery 10/01/23 [facility] 46 [place] [address] Specialist Optometry 10/01/23 documented as of this encounter
--- OUTSIDE RECORDS SUMMARY | 2024-07-31 10:01 | XMS_ITS | Encounter Summary ---
Author Organization [facility] Address [address] [place] [address] Care Team Providers Care Recreational Leader Name Role Phone Ora Ronquillo MD Primary Care Prov ider Jl Mendez MD Unavailable Jannette Boudreaux MD Unavailable [phone] Tenisha MenidetaC Unavailable Julio Monk PA-C Unavailable Luis Armando Eller MD Unavailable [phone] Jayesh Pineda MD Unavailable Kelsi Tejada MD Unavailable Unavailable Pretty Le MD Unavailable Vesta Michael PA-C Unavailable [facility] Unavailable [phone] Encounter Details Date Type Department Care Team Description 12/21/2021 Refill Orthopedics-[address] [id number] Negrito Tenorio PA-C [address] [place] [id number] Social History Tobacco Use Types Packs/Day Years Used Date Smoking Tobacco: Never Smokeless Tobacco: Never Alcohol Use Standard Drinks/Week Comments No 0 (1 standard drink = 0.6 oz pur e alcohol) Education Answer Date Recorded What is the highest level of school you have completed or the highest degree you have received? 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, AUDOGRAPH OPERATOR, CHANDRAKANT) 06/14/2020 Sex Assigned at Date [...] filedocumented in this encounter Care Teams Recreational Leader Relationship Specialty Start Date End Date Ora Ronquillo MD [address] [place] [address] PCP - General Internal Medicine 10/11/21 Jl Mendez MD [address] [place] [address] [place] [address] Specialist Cardiovascular Disease 10/13/21 Jannette Boudreaux MD [address] [address] Surgeon Neurosurgery 04/07/22 Tenisha Mendieta PA-C [address] [address] Specialist Neurosurgery 04/07/22 Julio Monk PA-C [address] [address] Specialist Neurosurgery 04/07/22 Luis Armando Eller MD 175 [facility] [address] [place] [address] Specialist ORTHOPEDIC SURGERY 10/01/23 Jayesh Pineda MD 305 [place] [address] Specialist Endocrinology 10/01/23 Kelsi Tejada MD 305 [place] [address] Specialist Allergy & Immunology 10/01/23 Pretty Le MD 175 [facility] [address] [place] [address] Specialist Pulmonology 10/01/23 Vesta Michael PA-C 300 [facility] [address] [place] [address] Specialist Vascular Surgery 10/01/23 [facility] 46 [place] [address] Specialist Optometry 10/01/23 documented as of this encounter
--- OUTSIDE RECORDS SUMMARY | 2024-07-31 10:01 | XMS_ITS | Encounter Summary ---
Author Organization [facility] Address [address] [place] [address] Care Team Providers Care Process Chemist Name Role Phone Teressa Solis DO Primary Care Pro vider Unavailable Mina Pretty DO Primary Care Provider Shweta Cronin MD Primary Care Provider Ora Diaz MD Primary Care Prov ider Jl Mendez MD Unavailable [phone] Jannette Boudreaux MD Unavailable [phone] Tenisha Mendieta PA-C Unavailable Julio Monk PA-C Unavailable [phone] Luis Armando Eller MD Unavailable [phone] Jayesh Pineda MD Unavailable Kelsi Tejada MD Unavailable Unavailable Pretty Le MD Unavailable Vesta Michael PA-C Unavailable [phone] [facility] Unavailable [phone] Encounter Details Date Type Department Care Team Description 07/25/2019 Hospital Medical Records 4 [place] [address] [facility] Social History [...] degree (e.g., MA, MS, Lexi, MEd, DIRECTOR OF EVENT SALES, CHANDRAKANT) 06/14/2020 Sex Assigned at Date Recorded Female 08/03/2020 10:16 PM EDT Job Start Date Occupation Industry Not on file Not on file Not on file documented as of this encounter Plan of Treatment Not on file documented as of this encounter Visit Diagnoses Not on filedocumented in this encounter Care Teams Process Chemist Relationship Specialty Start Date End Date Teressa Solis, PCP - General Internal Medicine 12/18/13 09/15/20 Mina Pretty DO PCP - General Internal Medicine 09/16/20 Shweta Boucher MD PCP - General Internal Medicine 01/12/21 10/10/21 Ora Ronquillo MD [address] [place] [address] PCP - General Internal Medicine 10/11/21 Jl Mendez MD [address] [place] [address] Dr Mont[address] [place] [address] Specialist Cardiovascular Disease 10/13/21 Jannette Boudreaux MD [address] [address] Surgeon Neurosurgery 04/07/22 Tenisha Mendieta PA-C [address] [address] Specialist Neurosurgery 04/07/22 Julio Monk PA-C 175 [facility] [address] [place] [address] Specialist Neurosurgery 04/07/22 Luis Armando Eller MD [address] [address] Specialist ORTHOPEDIC SURGERY 10/01/23 Jayesh Pineda MD [address] [place] [address] Specialist Endocrinology 10/01/23 Kelsi Tejada MD 305 [place] [address] Specialist Allergy & Immunology 10/01/23 Pretty Le MD 175 [facility] [address] [place] [address] Specialist Pulmonology 10/01/23 Vesta Michael PA-C [address] [facility] [address] [place] [address] Specialist Vascular Surgery 10/01/23 [facility] 46 [place], [place] [address] Specialist Optometry 10/01/23 documented as of this encounter
--- OUTSIDE RECORDS SUMMARY | 2024-07-31 10:01 | XMS_ITS | Encounter Summary ---
Author Organization [facility] Address [address] [place] [address] Care Team Providers Care Compliance Project Manager Name Role Phone Teressa Solis DO Primary Care Pro vider Unavailable Mina Pretty DO Primary Care Provider Shweta Cronin MD Primary Care Provider Ora Diaz MD Primary Care Prov ider Jl Mendez MD Unavailable Jannette Boudreaux MD Unavailable [phone] Tenisha Mendieta PA-C Unavailable Julio Monk PA-C Unavailable Luis Armando Eller MD Unavailable [phone] Jayesh Pineda MD Unavailable Kelsi Tejada MD Unavailable Unavailable Pretty Le MD Unavailable Vesta Michael PA-C Unavailable [phone] [facility] Unavailable Reason for Visit * Reason Onset Date Comments Medication 06/11/2019 Home Injection? Encounter Details Date Type Department Care Team Description 06/11/2019 Telephone Allergy CLOQUET 98 [address] [place] [address] Kelsi Tejada MD Medication (Home [...] on filedocumented in this encounter Care Teams Compliance Project Manager Relationship Specialty Start Date End Date Teressa Solis DO PCP - General Internal Medicine 12/18/13 09/15/20 Mina Pretty DO PCP - General Internal Medicine 09/16/20 1 Shweta Tellez MD PCP - General Internal Medicine 01/12/21 10/10/21 Ora Ronquillo MD [address] [place] [address] PCP - General Internal Medicine 10/11/21 Jl Mendez MD [address] [place] [address] Dr Mont[address] [place] [address] Specialist Cardiovascular Disease 10/13/21 Jannette Boudreaux MD [address] [facility] 300 [place] [address] Surgeon Neurosurgery 04/07/22 Tenisha Mendieta PA-C [address] [address] Specialist Neurosurgery 04/07/22 Julio Monk PA-C 175 [facility] 300 [place] [address] Specialist Neurosurgery 04/07/22 Luis Armando Eller MD 175 [facility] 250 [place] [address] Specialist ORTHOPEDIC SURGERY 10/01/23 Jayesh Pineda MD 305 [place] [address] Specialist Endocrinology 10/01/23 Kelsi Tejada MD 305 [place] [address] Specialist Allergy & Immunology 10/01/23 Pretty Le MD 175 [facility] [address] [place] [address] Specialist Pulmonology 10/01/23 Vesta Michael PA-C 300 [facility] [address] [place] [address] Specialist Vascular Surgery 10/01/23 [facility] [address] [place] [address] Specialist Optometry 10/01/23 documented as of this encounter
--- OUTSIDE RECORDS SUMMARY | 2024-07-31 10:01 | XMS_ITS | Encounter Summary ---
Author Organization [facility] Address [address] [place] [address] Care Team Providers Care Watch Inspector Name Role Phone Shweta Tellez MD Primary Care Provider Ora Diaz MD Primary Care Prov ider Jl Mendez MD Unavailable [phone] Jannette Boudreaux MD Unavailable [phone] Tenisha Mendieta PA-C Unavailable [phone] Julio Monk PA-C Unavailable Luis Armando Eller MD Unavailable [phone] Jayesh Pineda MD Unavailable Kelsi Tejada MD Unavailable Unavailable Pretty Le MD Unavailable Vesta Michael-C Unavailable [phone] [facility] Unavailable [phone] Encounter Details Date Type Department Care Team Description 09/09/2021 Hospital Medical Records 444 [place] [address] Cailin Ballesteros NP Social History Tobacco Use Types Packs/Day Years Used Date Smoking Tobacco: Never Smokeless Tobacco: Never Alcohol Use Standard Drinks/Week Comments No 0 (1 standard drink = 0.6 oz pur e alcohol) Education Answer Date Recorded What is the highest level of school you have completed or the highest degree you have received? 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, SUPERVISOR CLAM BED, CHANDRAKANT) 06/14/2020 Sex Assigned at Date Recorded [...] on filedocumented in this encounter Care Teams Watch Inspector Relationship Specialty Start Date End Date Shweta Tellez MD PCP - General Internal Medicine 01/12/21 10/10/21 Ora Ronquillo MD [address] [place] [address] PCP - General Internal Medicine 10/11/21 Jl Mendez MD [address] [place] [address] Dr Mont[address] [place] [address] Specialist Cardiovascular Disease 10/13/21 Jannette Boudreaux MD [address] [address] Surgeon Neurosurgery 04/07/22 Tenisha Mendieta PA-C [address] [address] Specialist Neurosurgery 04/07/22 Julio Monk PA-C 175 [facility] [address] [place] [address] Specialist Neurosurgery 04/07/22 Luis Armando Eller MD [address] [address] Specialist ORTHOPEDIC SURGERY 10/01/23 Jayesh Pineda MD 305 [place] [address] Specialist Endocrinology 10/01/23 Kelsi Tejada MD 305 [place] [address] Specialist Allergy & Immunology 10/01/23 Pretty Le MD 175 [facility] [address] [place] [address] Specialist Pulmonology 10/01/23 Vesta Michael PA-C 300 [facility] [address] [place] [address] Specialist Vascular Surgery 10/01/23 [facility] [address] [place] [address] Specialist Optometry 10/01/23 documented as of this encounter
--- OUTSIDE RECORDS SUMMARY | 2024-07-31 10:01 | XMS_ITS | Encounter Summary ---
Author Organization [facility] Address [address] [place] [address] Care Team Providers Care Insulation Mechanic Name Role Phone Teressa Solis DO Primary Care Pro vider Unavailable Mina Pretty DO Primary Care Provider Shweta Cronin MD Primary Care Provider Ora Diaz MD Primary Care Prov ider Jl Mendez MD Unavailable [phone] Jannette Boudreaux MD Unavailable [phone] Tenisha Mendieta PA-C Unavailable Julio Monk PA-C Unavailable [phone] Luis Armando Eller MD Unavailable [phone] Jayesh Pineda MD Unavailable Kelsi Tejada MD Unavailable Unavailable Pretty Le MD Unavailable Vesta Michael PA-C Unavailable [facility] Unavailable Encounter Details Date Type Department Care Team Description 02/03/2020 Wagon Drill Operator Report Medical Records [address] [place] [address] Randy Domínguez MD Social History Tobacco Use [...] filedocumented in this encounter Care Teams Insulation Mechanic Relationship Specialty Start Date End Date Teressa Solis DO PCP - General Internal Medicine 12/18/13 09/15/20 Mina Pretty DO PCP - General Internal Medicine 09/16/20 Shweta Boucher MD PCP - General Internal Medicine 01/12/21 10/10/21 Ora Ronquillo MD [address] [place] [address] PCP - General Internal Medicine 10/11/21 lJ Mendez MD [address] [place] [address] Dr [address] [place] [address] Specialist Cardiovascular Disease 10/13/21 Jannette Boudreaux MD [address] [address] Surgeon Neurosurgery 04/07/22 Tenisha Mendieta PA-C [address] [address] Specialist Neurosurgery 04/07/22 Julio Monk PA-C [address] [address] Specialist Neurosurgery 04/07/22 Luis Armando Eller MD [address] [address] Specialist ORTHOPEDIC SURGERY 10/01/23 Jayesh Pineda MD [address] [place] [address] [place] [address] Specialist Endocrinology 10/01/23 Kelsi Tejada MD 305 [place] [address] Specialist Allergy & Immunology 10/01/23 Pretty Le MD 175 [facility] [address] [place] [address] Specialist Pulmonology 10/01/23 Vesta Michael PA-C 300 [facility] 210 [place] [address] Specialist Vascular Surgery 10/01/23 [facility] 46 [place] [address] Specialist Optometry 10/01/23 documented as of this encounter
--- OUTSIDE RECORDS SUMMARY | 2024-07-31 10:01 | XMS_ITS | Encounter Summary ---
Author Organization [facility] Address [address] [place] [address] Care Team Providers Care Ventilator Specialist Name Role Phone Teressa Solis DO Primary Care Pro vider Unavailable Mina Pretty DO Primary Care Provider Shweta Cronin MD Primary Care Provider Ora Diaz MD Primary Care Prov ider Jl Mendez MD Unavailable Jannette Boudreaux MD Unavailable [phone] Tenisha Mendieta PA-C Unavailable [phone] Julio Monk PA-C Unavailable Luis Armando Eller MD Unavailable [phone] Jayesh Pineda MD Unavailable Kelsi Tejada MD Unavailable Unavailable Pretty Le MD Unavailable Vesta Michael PA-C Unavailable [phone] Unavailable [phone] Encounter Details Date Type Department Care Team Description 04/07/2020 Property Claims Adjuster Report Medical Records 4 [place] [address] [facility] Social History Tobacco Use Types Packs/Day Years [...] on filedocumented in this encounter Care Teams Ventilator Specialist Relationship Specialty Start Date End Date Teressa Solis DO PCP - General Internal Medicine 12/18/13 09/15/20 Mina Pretty DO PCP - General Internal Medicine 09/16/20 Shweta Boucher MD PCP - General Internal Medicine 01/12/21 10/10/21 Ora Ronquillo MD [address] [place] [address] PCP - General Internal Medicine 10/11/21 Jl Mendez MD [address] [place] [address] Dr Mont[address] [place] [address] Specialist Cardiovascular Disease 10/13/21 Jannette Boudreaux MD [address] [address] Surgeon Neurosurgery 04/07/22 Tenisha Mendieta PA-C [address] [address] Specialist Neurosurgery 04/07/22 Julio Monk PA-C 175 [facility] [address] [place] [address] Specialist Neurosurgery 04/07/22 Luis Armando Eller MD [address] [address] Specialist ORTHOPEDIC SURGERY 10/01/23 Jayesh Pineda MD [address] [place] [address] Specialist Endocrinology 10/01/23 Kelsi Tejada MD 305 [place] [address] Specialist Allergy & Immunology 10/01/23 Pretty Le MD 175 [facility] [address] [place] [address] Specialist Pulmonology 10/01/23 Vesta Michael PA-C 300 [facility] [address] [place] [address] Specialist Vascular Surgery 10/01/23 [facility] 46 [place], [place] [address] Specialist Optometry 10/01/23 documented as of this encounter
--- OUTSIDE RECORDS SUMMARY | 2024-07-31 10:01 | XMS_ITS | Encounter Summary ---
Author Organization [facility] Address [address] [place] [address] Care Team Providers Care Video Camera Operator Name Role Phone Ora Ronquillo MD Primary Care Prov ider Jl Mendez MD Unavailable Jannette Boudreaux MD Unavailable [phone] Tenisha Mendieta PA-C Unavailable Julio Monk PA-C Unavailable Luis Armando Eller MD Unavailable [phone] Jayesh Pineda MD Unavailable Kelsi Tejada MD Unavailable Unavailable Pretty Le MD Unavailable Vesta Michael PA-C Unavailable [facility] Unavailable Encounter Details Date Type Department Care Team Description 09/19/2023 Refill Endocrinology - [place] 444 [place] [address] Jayesh Pineda MD 305 [place], [place] [id number] Social History Tobacco Use Types Packs/Day Years Used Date Smoking Tobacco: Never Smokeless Tobacco: Never Alcohol Use Standard Drinks/Week Comments No 0 (1 standard drink = 0.6 oz pur e alcohol) Education Answer Date Recorded What is the highest level of school you have completed or the highest degree you have received? 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, RESEARCH QUALITY ASSURANCE SPECIALIST, CHANDRAKANT) 06/14/2020 Sex Assigned at Date [...] (HCC) documented in this encounter Care Teams Video Camera Operator Relationship Specialty Start Date End Date Ora Ronquillo MD [address] [place] [address] PCP - General Internal Medicine 10/11/21 Jl Mendez MD [address] [place] [address] Dr Mont[address] [place] [address] Specialist Cardiovascular Disease 10/13/21 Jannette Boudreaux MD [address] [address] Surgeon Neurosurgery 04/07/22 Tenisha Mendieta PA-C [address] [address] Specialist Neurosurgery 04/07/22 Julio Monk PA-C 175 [facility] [address] [place] [address] Specialist Neurosurgery 04/07/22 Luis Armando Eller MD [address] [address] Specialist ORTHOPEDIC SURGERY 10/01/23 Jayesh Pineda MD 305 [place] [address] Specialist Endocrinology 10/01/23 Kelsi Tejada MD 305 [place] [address] Specialist Allergy & Immunology 10/01/23 Pretty Le MD 175 [facility] [address] [place] [address] Specialist Pulmonology 10/01/23 Vesta Michael PA-C 300 [facility] 210 [place] [address] Specialist Vascular Surgery 10/01/23 [facility] 46 [place] [address] Specialist Optometry 10/01/23 documented as of this encounter
--- OUTSIDE RECORDS SUMMARY | 2024-07-31 10:01 | XMS_ITS | Encounter Summary ---
Author Organization [facility] Address [address] [place] [address] Care Team Providers Care Director Graphics Name Role Phone Ora Ronquillo MD Primary Care Prov ider Jl Mendez MD Unavailable [phone] Jannette Boudreaux MD Unavailable [phone] Tenisha Mendieta PA-C Unavailable [phone] Julio MonkC Unavailable Luis Armando Eller MD Unavailable [phone] Jayesh Pineda MD Unavailable Kelsi Tejada MD Unavailable Unavailable Pretty Le MD Unavailable Vesta Michael PA-Pina Unavailable [phone] [facility] Unavailable [phone] Encounter Details Date Type Department Care Team Description 02/09/2022 Press Catcher Report Medical Records [address] [place] [address] Jorge Belcher II Social History Tobacco Use Types Packs/Day Years Used Date Smoking Tobacco: Never Smokeless Tobacco: Never Alcohol Use Standard Drinks/Week Comments No 0 (1 standard drink = 0.6 oz pur e alcohol) Education Answer Date Recorded What is the highest level of school you have completed or the highest degree you have received? 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, AUTOMATIC MACHINE ATTENDANT, CHANDRAKANT) 06/14/2020 Sex Assigned at Date Recorded Female 08/03/2020 10:16 PM EDT Job Start Date Occupation Industry Not on file Not on file Not on file documented as of this encounter Plan of Treatment Not on file documented as of this encounter Visit Diagnoses Not on filedocumented in this encounter Care Teams Director Graphics Relationship Specialty Start Date End Date Ora Ronquillo MD [address] [place] [address] PCP - General Internal Medicine 10/11/21 Jl Mendez MD [address] [place] [address] Dr Montiel [address] [place] [address] Specialist Cardiovascular Disease 10/13/21 Jannette Boudreaux MD [address] [address] Surgeon Neurosurgery 04/07/22 Tenisha Mendieta PA-C [address] [address] Specialist Neurosurgery 04/07/22 Julio Monk PA-C 175 [facility] 300 [place] [address] Specialist Neurosurgery 04/07/22 Luis Armando Eller MD 175 [facility] 250 [place] [address] Specialist ORTHOPEDIC SURGERY 10/01/23 Jayesh Pineda MD 305 [place] [address] Specialist Endocrinology 10/01/23 Kelsi Tejada MD 305 [place] [address] Specialist Allergy & Immunology 10/01/23 Pretty Le MD 175 [facility] 200 [place] [address] Specialist Pulmonology 10/01/23 Vesta Michael PA-C 300 [facility] 210 [place] [address] Specialist Vascular Surgery 10/01/23 [facility] 46 [place], [place] [address] Specialist Optometry 10/01/23 documented as of this encounter
--- OUTSIDE RECORDS SUMMARY | 2024-07-31 10:01 | XMS_ITS | Encounter Summary ---
Author Organization [facility] Address [address] [place] [address] Care Team Providers Care Ward Assistant Name Role Phone Teressa Solis DO Primary Care Pro vider Unavailable Mina Pretty DO Primary Care Provider Shweta Cronin MD Primary Care Provider Ora Diaz MD Primary Care Prov ider Jl Mendez MD Unavailable Jannette Boudreaux MD Unavailable [phone] Tenisha Mendieta PA-C Unavailable Julio Monk PA-C Unavailable [phone] Luis Armando Eller MD Unavailable [phone] Jayesh Pineda MD Unavailable Kelsi Tejada MD Unavailable Unavailable Pretty Le MD Unavailable Vesta Michael PA-C Unavailable [facility] Unavailable [phone] Encounter Details Date Type Department Care Team Description 10/01/2019 Orders Only Medical Records [address] [place] [address] Irvin Ling MD 175 [facility] [address] [place], [place] [id number] Social History Tobacco Use Types Packs/Day Years [...] on filedocumented in this encounter Care Teams Ward Assistant Relationship Specialty Start Date End Date Teressa Solis, PCP - General Internal Medicine 12/18/13 09/15/20 Mina Pretty DO PCP - General Internal Medicine 09/16/20 Shweta Boucher MD PCP - General Internal Medicine 01/12/21 10/10/21 Ora Ronquillo MD [address] [place] [address] PCP - General Internal Medicine 10/11/21 Jl Mendez MD [address] [place] [address] Dr Mont[address] [place] [address] Specialist Cardiovascular Disease 10/13/21 Jannette Boudreaux MD [address] [address] Surgeon Neurosurgery 04/07/22 Tenisha Mendieta PA-C [address] [address] Specialist Neurosurgery 04/07/22 Julio Monk PA-C [address] [address] Specialist Neurosurgery 04/07/22 Luis Armando Eller MD [address] [address] Specialist ORTHOPEDIC SURGERY 10/01/23 Jayesh Pineda MD 305 [place] [address] Specialist Endocrinology 10/01/23 Kelsi Tejada MD 305 [place] [address] Specialist Allergy & Immunology 10/01/23 Pretty Le MD 175 [facility] [address] [place] [address] Specialist Pulmonology 10/01/23 Vesta Michael PA-C 300 [facility] [address] [place] [address] Specialist Vascular Surgery 10/01/23 [facility] 46 [place] [address] Specialist Optometry 10/01/23 documented as of this encounter
--- OUTSIDE RECORDS SUMMARY | 2024-07-31 10:01 | XMS_ITS | Encounter Summary ---
Author Organization [facility] Address [address] [place] [address] Care Team Providers Care Manager Animal Name Role Phone Shweta Tellez MD Primary Care Provider Ora Diaz MD Primary Care Prov ider Jl Mendez MD Unavailable [phone] Jannette Boudreaux MD Unavailable [phone] Tneisha Mendieta PA-C Unavailable [phone] Julio Monk PA-C Unavailable Luis Armando Eller MD Unavailable [phone] Jayesh Pineda MD Unavailable Kelsi Tejada MD Unavailable Unavailable Pretty Le MD Unavailable Vesta Michael PA-C Unavailable [phone] [facility] Unavailable [phone] Encounter Details Date Type Department Care Team Description 09/09/2021 Hospital Medical Records [address] [place] [address] [facility] Social History Tobacco Use Types Packs/Day Years Used Date Smoking Tobacco: Never Smokeless Tobacco: Never Alcohol Use Standard Drinks/Week Comments No 0 (1 standard drink = 0.6 oz pur e alcohol) Education Answer Date Recorded What is the highest level of school you have completed or the highest degree you have received? 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, SDC TEACHER, CHANDRAKANT) 06/14/2020 Sex Assigned at Date [...] filedocumented in this encounter Care Teams Manager Animal Relationship Specialty Start Date End Date Shweta Tellez MD PCP - General Internal Medicine 01/12/21 10/10/21 Ora Ronquillo MD [address] [place] [address] PCP - General Internal Medicine 10/11/21 Jl Mendez MD [address] [place] [address] [place] [address] Specialist Cardiovascular Disease 10/13/21 Jannette Boudreaux MD [address] [address] Surgeon Neurosurgery 04/07/22 Tenisha Mendieta PA-C 175 [facility] 300 [place] [address] Specialist Neurosurgery 04/07/22 Julio Monk PA-C 175 [facility] 300 [place] [address] Specialist Neurosurgery 04/07/22 Luis Armando Eller MD 175 [facility] 250 [place] [address] Specialist ORTHOPEDIC SURGERY 10/01/23 Jayesh Pineda MD 305 [place] [address] Specialist Endocrinology 10/01/23 Kelsi Tejada MD 305 [place] [address] Specialist Allergy & Immunology 10/01/23 Pretty Le MD 175 [facility] 200 [place] [address] Specialist Pulmonology 10/01/23 Vesta Michael PA-C 300 [facility] 210 [place] [address] Specialist Vascular Surgery 10/01/23 [facility] 46 [place] [address] Specialist Optometry 10/01/23 documented as of this encounter
--- OUTSIDE RECORDS SUMMARY | 2024-07-31 10:01 | XMS_ITS | Encounter Summary ---
Author Organization [facility] Address [address] [place] [address] Care Team Providers Care Blow Moulding Machine Operator Name Role Phone Teressa Solis DO Primary Care Pro vider Unavailable Mina Pretty DO Primary Care Provider Ailyn Shweta Pretty MD Primary Care Provider Ora Diaz MD Primary Care Prov ider Jl Mendez MD Unavailable Jannette Boudreaux MD Unavailable [phone] Teinsha Mendieta PA-C Unavailable Julio Monk PA-C Unavailable Luis Armando Eller MD Unavailable [phone] Jayesh Pineda MD Unavailable Kelsi Tejada MD Unavailable Unavailable Pretty Le MD Unavailable Vesta Michael PA-C Unavailable [phone] [facility] Unavailable Reason for Visit * Reason Onset Date Comments other 11/25/2019 covid screen Encounter Details Date Type Department Care Team Description 11/25/2019 Telephone Vascular Surgery - [place] [address] [place] [address] Vesta Michael PA-C 300 [facility] [address] [place] [address] other (covid screen) Social History [...] Medicine 01/12/21 10/10/21 Ora Ronquillo MD [address] [place] [address] PCP - General Internal Medicine 10/11/21 Jl Mendez MD [address] [place] [address] [place] [address] Specialist Cardiovascular Disease 10/13/21 Jannette Boudreaux MD [address] [address] Surgeon Neurosurgery 04/07/22 Tenisha Mendieta PA-C 175 [facility] 300 [place] [address] Specialist Neurosurgery 04/07/22 Julio Monk PA-C 175 [facility] 300 [place] [address] Specialist Neurosurgery 04/07/22 Luis Armando Eller MD 175 [facility] 250 [place] [address] Specialist ORTHOPEDIC SURGERY 10/01/23 Jayesh Pineda MD 305 [place] [address] Specialist Endocrinology 10/01/23 Kelsi Tejada MD 305 [place] [address] Specialist Allergy & Immunology 10/01/23 Pretty Le MD 175 [facility] 200 [place] [address] Specialist Pulmonology 10/01/23 Vesta Michael PA-C 300 [facility] 210 [place] [address] Specialist Vascular Surgery 10/01/23 [facility] 46 [place] [address] Specialist Optometry 10/01/23 documented as of this encounter
--- OUTSIDE RECORDS SUMMARY | 2024-07-31 10:01 | XMS_ITS | Encounter Summary ---
Author Organization [facility] Address [address] [place] [address] Care Team Providers Care Marklogic Developer Name Role Phone Teressa Solis DO Primary Care Pro vider Unavailable Mina Pretty DO Primary Care Provider Shweta Cronin MD Primary Care Provider Ora Diaz MD Primary Care Prov ider Jl Mendez MD Unavailable Jannette Boudreaux MD Unavailable [phone] Tenisha Mendieta PA-C Unavailable Julio Monk PA-C Unavailable [phone] Luis Armando Eller MD Unavailable [phone] Jayesh Pineda MD Unavailable Kelsi Tejada MD Unavailable Unavailable Pretty Le MD Unavailable Vesta Michael PA-C Unavailable [facility] Unavailable Encounter Details Date Type Department Care Team Description 03/26/2020 Fire Prevention Research Engineer Report Medical Records [address] [place] [address] Randy Domínguez MD Social History Tobacco Use [...] on filedocumented in this encounter Care Teams Marklogic Developer Relationship Specialty Start Date End Date Teressa Solis DO PCP - General Internal Medicine 12/18/13 09/15/20 Mina Pretty DO PCP - General Internal Medicine 09/16/20 Shweta Boucher MD PCP - General Internal Medicine 01/12/21 10/10/21 Ora Ronquillo MD [address] [place] [address] PCP - General Internal Medicine 10/11/21 Jl Mendez MD [address] [place] [address] Dr Montiel [address] [place] [address] Specialist Cardiovascular Disease 10/13/21 Jannette Boudreaux MD [address] [address] Surgeon Neurosurgery 04/07/22 Tenisha Mendieta PA-C [address] [address] Specialist Neurosurgery 04/07/22 Julio Monk PA-C [address] [address] Specialist Neurosurgery 04/07/22 Luis Armando Eller MD [address] [address] Specialist ORTHOPEDIC SURGERY 10/01/23 Jayesh Pineda MD [address] [place] [address] [place] [address] Specialist Endocrinology 10/01/23 Kelsi Tejada MD [address] [place] [address] Specialist Allergy & Immunology 10/01/23 Pretty Le MD 175 [facility] [address] [place] [address] Specialist Pulmonology 10/01/23 Vesta Michael PA-C 300 [facility] [address] [place] [address] Specialist Vascular Surgery 10/01/23 [facility] [address] [place] [address] Specialist Optometry 10/01/23 documented as of this encounter
--- OUTSIDE RECORDS SUMMARY | 2024-07-31 10:01 | XMS_ITS | Encounter Summary ---
Author Organization [facility] [place] [facility] Address [address] [place] [address] Care Team Providers Care Optical Lathe Operator Name Role Phone Teressa Solis DO Primary Care Pro vider Unavailable Mina Pretty DO Primary Care Provider Shweta Cronin MD Primary Care Provider Ora Diaz MD Primary Care Prov ider Jl Mendez MD Unavailable Jannette Boudreaux MD Unavailable [phone] Tenisha Mendieta PA-C Unavailable [phone] Julio Monk PA-C Unavailable [phone] Luis Armando Eller MD Unavailable [phone] Jayesh Pineda MD Unavailable Kelsi Tejada MD Unavailable Unavailable Pretty Le MD Unavailable Vesta Michael PA-C Unavailable [facility] Unavailable [phone] Encounter Details Date Type Department Care Team Description 02/06/2017 Client Solutions Specialist Report Medical Records [address] [place] [address] Jeff Ogden MD Social History Tobacco Use [...] on filedocumented in this encounter Care Teams Optical Lathe Operator Relationship Specialty Start Date End Date Teressa Solis DO PCP - General Internal Medicine 12/18/13 09/15/20 Mina Pretty DO PCP - General Internal Medicine 09/16/20 Shweta Boucher MD PCP - General Internal Medicine 01/12/21 10/10/21 Ora Ronquillo MD [address] [place] [address] PCP - General Internal Medicine 10/11/21 Jl Mendez MD [address] [place] [address] Specialist Cardiovascular Disease 10/13/21 Jannette Boudreaux MD [address] [address] Surgeon Neurosurgery 04/07/22 Tenisha Mendieta PA-C [address] [address] Specialist Neurosurgery 04/07/22 Julio Monk PA-C [address] [address] Specialist Neurosurgery 04/07/22 Luis Armando Eller MD [address] [address] Specialist ORTHOPEDIC SURGERY 10/01/23 Jayesh Pineda MD [address] [place] [address] Specialist Endocrinology 10/01/23 Kelsi Tejada MD [address] [place] [address] Specialist Allergy & Immunology 10/01/23 Pretty Le MD 175 [facility] [address] [place] [address] Specialist Pulmonology 10/01/23 Vesta Michael PA-C 300 [facility] [address] [place] [address] Specialist Vascular Surgery 10/01/23 [facility] [address] [place] [address] Specialist Optometry 10/01/23 documented as of this encounter
== END ==
LOC: HO.CARD 09:39
PROVIDERS: PCP Internal Medicine; Visit Provider Surgery
DX: R94.31 Abnormal electrocardiogram [ECG] [EKG] (principal)
CPT/HCPCS: 93017; J0280; J2785

== ENCOUNTER → 2024-07-31 09:41 | Outpatient (BNV) | payer OTHER, SELFPAY | PROVIDERS: PCP Internal Medicine | DX: R06.02 Shortness of breath (principal); R94.31 Abnormal electrocardiogram [ECG] [EKG] | CPT/HCPCS: 78452; 93016; 93018 ==

== ENCOUNTER → 2024-09-26 20:30 | Outpatient (REF) | payer OTHER, SELFPAY ==
--- OUTSIDE RECORDS SUMMARY | 2024-09-26 22:05 | XMS_ITS | Data Portability ---
Author Organization [facility] [address] Address [address] [place] [address] Assessment No assessment recorded. Plan of Treatment Reminders Order Date Submit Date Provider Last Modified By Organization Details Last Modified Time Details Appointments None recorded. Lab rapid flu (A+B) 2021 marva [email or web address] [address] [address], [address] [place], [address], 14:02:10 rapid SARS CoV 2 Ag, QL IA, respiratory specimen 2021 [facility] [address] [address], [address] [place], [address], 14:02:10 Referral None recorded. Procedures None recorded. Surgeries None recorded. Imaging None recorded. Medication Orders Tamiflu 75 mg capsule 2021 [facility]armacy #[id number], [phone] [place], [address], 03:31:38 promethazin e-DM 6.25 mg-15 mg/5 mL oral syrup 2021 [facility]/Pharmacy #[id number], [phone] [place], [address], 14:02:13 Patient TargetsNo targets recorded. Patient Instructions Encounter Date Encounter Id Patient Instructions Last Modified By Organization Details Last Modified Time 02/20/2022 [id number] You should follow-up with your PCP in [...] y speci men Unknown Analyte Not Available [id number] [place] [address] [address] [place], [address], 02/20/2022 13:38:01 02/21/20 22 02/20/2022 rapid SARS CoV 2 Ag, QL IA, respi rator y speci men Unknown Analyte negati ve Not Available [address] [place], [address], 02/20/2022 13:38:01 02/21/20 22 02/20/2022 rapid flu (A+B) Unknown Analyte negati ve Not Available [address] [place], [address], 02/20/2022 13:24:32 02/21/20 22 02/20/2022 rapid flu (A+B) Unknown Analyte Normal = Negati ve Not Available [address] [place], [address], 02/20/2022 13:24:32 02/21/20 22 02/20/2022 rapid flu (A+B) Unknown Analyte negati ve Not Available [address] [place], [address], 02/20/2022 13:24:32 02/21/20 22 02/20/2022 rapid flu (A+B) Unknown Analyte Normal = Negati ve Not Available [id number] [facility], [place], [address], 02/20/2022 13:24:32 Result Notes None recorded. Problems Name Problem SNOMED Code Status Onset Date Resolution Date Notes Provider Name and Address Organization Details Recorded Time Hypertensive disorder 70051545 Active 2021 Layne Trevino null, [place] - [facility] 2 13:21:27 Hyperlipidemia 78811837 Active 2021 Laynetristen Trevino null, PA - [facility] 2 13:21:42 Thyroiditis 95854730 Active 2021 Layne Trevino null, PA - [facility] 2 13:21:59 Environmental allergy 052380391 Active 2021 Layne Trevino null, PA - [facility] 2 13:22:12 Migraine 06766962 Active 2021 Layne Trevino null, PA - [facility] 2 13:22:21 Diabetes mellitus 29517740 Active 2021 Layne Trevino null, PA - [facility] 2 13:22:34 Asthma 537648278 Active 2021 Layne Treivno null, PA - [facility] 2 13:22:44 [...] Name and Address Organization Details Recorded Time 50613 Product containin g penicilli n (product) medicatio n swelling Not available high 02/20/2022 64771 8001 SNOMED Layne Trevino null, PA - [facility] 2 13:13:07 13138 Duricef medicatio n swelling Not available Not available 02/20/2022 51100 6 RxNorm Lanye Trevino null, PA - [facility] 2 13:13:25 31742 Medrol medicatio n swelling Not available Not available 02/20/202294075 2 RxNorm Layne Trevino null, PA - [facility] 2 13:13:43 69365 oxycodone medicatio n Not available Not available Not available 02/20/2022 7804 RxNorm Layne Trevino null, PA - [facility] 2 13:13:52 93550 chocolate flavor food,medi cation Not available Not available Not available 02/20/2022 54138 UNDarren Trevino null, PA - [facility] 2 13:14:02 48358 almond allergeni c extract food Not available Not available Not available 02/20/2022 61296 7 RxNorm Layne Trevino null, PA - [facility] 2 13:14:09 25879 Canis lupus familiari s extract environme nt Not available Not available Not available 02/20/2022 25598 4 RxNorm Layne Trevino null, PA - [facility] 2 13:14:18 75746 cat dander environme nt Not available Not available Not available 02/20/2022 64212 UNK Layne Trevino null, PA - [facility] 2 13:14:22 30107 rabbit dander environme nt Not available Not available Not available 02/20/2022 00534 UNDarren SalgadoLaynetristen Trevino null, PA - [facility] 2 13:14:29 14700 latex environme nt,medica tion Not available Not available Not available 02/20/2022 53084 91 RxNorm Laynetristen Trevino null, PA - [facility] 2 13:14:36 29253 house dust mite environme nt Not available Not available Not available 02/20/2022 49725 UNK Layne Trevino null, PA - [facility] 2 13:14:44 12945 POLLEN EXTRACTS environme nt,medica tion Not available Not available Not available 02/20/2022 68756 6 RxNorm Layne Trevino null, PA - [facility] 2 13:14:56 79587 grass pollen environme nt,medica tion Not available Not available Not available 02/20/2022 86199 UNK Layne Trevino null, PA - [facility] 2 13:15:03 13865 ethinyl estradiol / levonorge strel medicatio n Not available Not available Not available 02/20/2022 96166 8 RxNorm Layne Trevino null, PA - [...] Heart rate Respiratory rate Body temperature Systolic And Diastolic Provider Name and Address Organization Details Last Updated DateTime 2 162.56 cm 44.6 kg/m2 219519. 02 g 100 % 100 % 85 /min 20 /min 98.8 [degF] 159/88 mm[Hg] Layne Cotto [facility] 13:12:06 Social History Question Answer Notes LastModified by Organizat ion Details LastModified Time Tobacco Smoking Status Never Smoker [facility] 02/20/2022 13:23:07 Have You Had Direct Contact, Or Contact During Intimacy, With Monkeypox Rash, Scabs, Or Body Fluids From A Person With Monkeypox? No [email or web address] Information not available 02/20/2022 Have You Recently Traveled Abroad? No [email or web address] Information not available 02/20/2022 Sex: Unknown Functional Status Question Answer Note LastModified by Organizat ion Details LastModified Time Do you use any illicit or recreational drugs? No [email or web address] Information not available 02/20/2022 What is your level of alcohol consumption? Occasional [email or web address] Information not available 02/20/2022 Mental Status None [...] SNOMED-CT Code Diagnosis ICD10 Code Diagnosis Note [id number] [address] [place] [address] 04/01/2019 17:17:25 04/01/2019 18:28:03 [id number] Evelina miller MD [address] [place] [address] 02/20/2022 12:02:53 02/20/2022 14:03:53 Generalized aches and pains 36119720 R52 Viral syndrome 345956004 B34.9 Health Concerns Section Related Observation LastModified by Organization Detai ls LastModified Time None Recorded Concern Status LastModified by Organization Details LastModified Time None Recorded Advance Directives Directive None Recorded Payers Insurance Date Sequence Insurance Name Policy Number Policy Saleh Covered Member ID Saleh Member ID Guarantor Name 02/20/2022 1 [facility] (MEDICAID REPLACEMENT - HMO) [facility]isa [facility] [id number] Ana [facility]isa [facility] Notes Date Note Type [...] nasal drip;hurts to breath Evelina Xiao MD [address] [place], [place] [address], [address], [place] - [facility] 02/20/2022 20:29:48 OBGyn Episode No OBEpisode recorded.
--- OUTSIDE RECORDS SUMMARY | 2024-09-26 22:05 | XMS_ITS | Clinical Summary ---
Author Organization [facility] Address [address] [place] [address] Care Team Providers Care Recreation Manager Name Role Phone Ora Sweeney MD [...] Rabbit Epithelium Allergenic Extract 04/10/2016 rabbits Medications albuterol 2.5 mg /3 mL (0.083 %) nebulizer solution every 8 (eight) hours if needed. Active albuterol HFA (PROAIR HFA ; PROVENTIL HFA ; VENTOLIN HFA) 90 mcg/actuation inhaler Inhale 2 Puffs into the lungs every 6 hours as needed for Cough, Wheezing or Shortness of Breath for up to 363 days. Active ammonium lactate (LAC-HYDRIN) 12 % lotion Apply to soles of feet daily. At night wear socks to bed Active azelastine HCl (ASTELIN NASL) 2 Sprays by Nasal route 2 times daily. Active blood-glucose meter misc Use to test blood sugars once daily in the morning, before breakfast. Active EPINEPHrine (EpiPen 2-Nehemiah) 0.3 mg/0.3 mL injection Inject 1 Device as directed as needed (anaphylaxis). Use as directed Active fexofenadine (CRISTINA) 180 mg tablet Take 1 tablet by mouth daily. Active UNABLE TO FIND Inhale into the lungs. [employer]-supplie s only Active FREESTYLE LANCETS MISC Use to test blood sugars once daily in the morning, before breakfast. Active blood sugar diagnostic (FreeStyle Lite Strips) test strip Use to test blood sugars once daily in the morning, before breakfast. Active ketoconazole (NIZORAL) 2 % cream Active montelukast (SINGULAIR) 10 mg tablet Take 1 Tablet by mouth at bedtime. Active senna (SENOKOT) 8.6 mg tablet Take 1 Tablet by mouth at bedtime. Active sertraline (ZOLOFT) 100 mg tablet TAKE 1 TABLET BY MOUTH EVERY DAY IN THE MORNING Active SUMAtriptan (IMITREX) 50 mg tablet Active tezepelumab-ekko (Tezspire) 210 mg/1.91 mL (110 mg/mL) injection Act juany Trulicity 1.5 mg/0.5 mL pen injector injection Inject 0.5 mL (1.5 mg total) under the skin 1 (one) time per week. Active cholecalciferol (VITAMIN D-3) 125 mcg (5,000 unit) capsule Take 1 capsule (5,000 Units total) by mouth 1 (one) time each day. Active triamcinolone (NASACORT) 55 mcg nasal inhaler Active levothyroxine (SYNTHROID, LEVOTHROID) 137 mcg tabletIndication s:Atrophy of thyroid (acquired) TAKE 1 TABLET BY MOUTH EVERY DAY 90 tablet 1 Active pantoprazole (PROTONIX) 40 mg EC tablet Active polyethylene glycol (Golytely) 236-22.74-6.74 -5.86 gram solution Take 4L by mouth once for one dose. May substitue any PEG. Starting at 6PM the night before your procedure drink 1 8oz glasses at your own pace until you complete half of the gallon. Finish 2nd half of the gallon 5 hours before your procedure. 4000 mL Active bisacodyL (DULCOLAX) 5 mg EC tablet Take 2 tablets by mouth right before beginning bowel prep. See instructions provided by the office 2 tablet Active atorvastatin (LIPITOR) 20 mg tablet TAKE 1 TABLET BY MOUTH EVERY DAY 90 tablet 3 025 2025 Active amLODIPine (NORVASC) 10 mg tablet TAKE 1 TABLET BY MOUTH EVERY DAY 90 tablet 3 Active riboflavin (VITAMIN B2) 100 mg tablet Take 1 tablet (100 mg total) by mouth 1 (one) time each day. Active ciprofloxacin (CIPRO) 250 mg tablet Take 1 tablet (250 mg total) by mouth 2 (two) times a day. Active ondansetron (ZOFRAN) 4 mg tabletIndication s:Group B streptococcal UTI,Recurrent UTI,Urinary tract infection with hematuria, site unspecified Take 1 tablet (4 mg total) by mouth every 12 (twelve) hours if needed for nausea or vomiting. 10 tablet Active docusate sodium (COLACE) 100 mg capsule TAKE 1 CAPSULE BY MOUTH TWICE A DAY 180 capsule 1 Active losartan (COZAAR) 100 mg tablet TAKE 1 TABLET BY MOUTH EVERY DAY 90 tablet 1 Active fluticasone-umec lidinium-vilante rol (Trelegy Ellipta) 100-62.5-25 mcg inhaler Inhale 1 puff (100 mcg total) by mouth 1 (one) time each day. Rinse mouth with water after use to reduce aftertaste and incidence of candidiasis. Do not swallow. 3 each 3 025 2025 Active albuterol HFA (PROAIR HFA ; PROVENTIL HFA ; VENTOLIN HFA) 90 mcg/actuation inhaler Inhale 2 puffs by mouth every 6 (six) hours if needed for wheezing or shortness of breath. 3 each 3 025 2025 Active linezolid (Zyvox) 600 mg tablet Take 1 tablet (600 mg total) by mouth 2 (two) times a day for 7 days. 14 each 025 2024 Active cloNIDine (CATAPRES) 0.1 mg tablet TAKE 1/2-1 TABLET BY MOUTH TWICE A DAY NEEDED FOR ANXIETY- NEEDED AND TOLERATED 023 2024 Discontinued traZODone (DESYREL) 100 mg tablet 024 2024 Discontinued Nucala 100 mg/mL auto-injector every 30 (thirty) days. TAKES ON 024 2024 Discontinued venlafaxine XR (EFFEXOR-XR) 37.5 mg 24 hr capsule 1 (one) time each day. 024 2024 Discontinued losartan (COZAAR) 100 mg tablet TAKE 1 TABLET BY MOUTH EVERY DAY 90 tablet 025 2024 Discontinued docusate sodium (COLACE) 100 mg capsule Take 1 capsule (100 mg total) by mouth 2 (two) times a day. 60 capsule 025 2024 Discontinued fluconazole (DIFLUCAN) 150 mg tablet Take 1 tab by mouth now. May repeat in 72 hours if still symptomatic. 2 tablet 025 2024 Discontinued clindamycin (CLEOCIN) 300 mg capsule Take 1 capsule (300 mg total) by mouth 2 (two) times a day for 10 days. 20 each 025 2024 Active Problems Problem Noted Date Diagnosed Date Anxiety 08/19/2024 Lower extremity edema 08/19/2024 Morbid obesity (CMS/HCC V24, CMS/HCC V28) 2024 S/P left rotator cuff repair 03/06/2024 Rotator [...] p ulmonary disease overlap syndrome (CMS/HCC V24, CMS/[facility] V28) 01/30/2022 Diabetes mellitus ([facility] V24, [facility] V28) Assessment & Plan (06/12/2024 4:05 PM EDT): DM good controlled on Trulicity. Will discuss possible switch to Mounjaro as per recommendation from weight management. Seasonal allergic conjunctivitis 01/30/2022 History of severe acute resp iratory syndrome coronavirus 2 (SARS-CoV-2) disease 01/30/2022 Palpitations 11/25/2021 Overview (12/16/2023): Last Assessment [...] on echo study from 08/2021 Pulmonary eosinophilia ([facility] V24) 07/14/2021 Hyperparathyroidism ([facility] V24) 03/09/2021 Diabetes mellitus type 2, co ntrolled, without complications ([facility] V24, [facility] V28) 02/16/2021 Assessment & Plan (01/24/2024 2:02 [...] Future Anxiety and depression 06/14/2020 Overview (12/16/2023): [facility] Asthma, moderate persistent 05/10/2020 Overview (12/16/2023): Last Assessment & Plan: Patient with moderately severe asthma excellent control with Nucala Continue with Nucala, albuterol as needed and Singulair. Return to clinic in 1 year Vitamin D deficiency 04/17/2019 Knee pain 01/20/2018 VIRGIE (obstructive sleep apnea) 03/06/2017 Overview (12/16/2023): TREATED (JUN 2020) Last Assessment & Plan: Patient with 100% compliance of her CPAP Apneas are well suppressed and ESS score is less than 10 Patient meets DME requirements Supply letter has been sent to [facility] Return to clinic in 1 year [...] Encounters Date Type Department Care Team Description 09/23/2024 3:20 PM EDT Lab Draw Station - 175 [facility] 175 [facility] [address] [place] [address] Group B streptococcal UTI; Recurrent UTI; Urinary tract infection with hematuria, site unspecified 09/23/2024 2:30 PM EDT Consult Infectious Disease - [place] 175 [facility] [address] [place] [address] Jo Diaz MD Group B streptococcal UTI; Recurrent UTI; Urinary tract infection with hematuria, site unspecified; Penicillin allergy 09/22/2024 8:45 AM EDT Office Visit Pulmonolgy - [place] 175 [facility] [address] [place] [phone] Pretty Le MD VIRGIE on CPAP (Primary Dx); Moderate persistent asthma, unspecified whether complicated 09/[facility] [address] [place] [phone] Nehal Rivera MA 09/18/2024 3:00 PM EDT Office Visit Endocrinology [address] [phone] Jayesh Pineda MD Type 2 diabetes mellitus with other specified complication, without long-term current use of insulin ([facility] V24, [facility] V28) (Primary Dx) 09/10/2024 9:30 AM EDT Office Visit Orthopedic Surgery [facility] 250 175 [facility] 250 [place] [phone] Lorie Moore NP Primary osteoarthritis of left knee (Primary Dx); Primary osteoarthritis of right knee 09/10/2024 Telephone Orthopedic Surgery [facility] 250 175 [facility] [address] [place] [phone] Essence Red MA EUFLEXXA L KNEE 09/01/2024 1:45 PM EDT - 09/01/2024 11:59 PM EDT Hospital Encounter [facility] Ultrasound [address] [place] [phone] Encounter for well woman exam with routine gynecological exam; Pelvic pain Discharge Disposition: Home or Self Care 08/28/2024 2:30 PM EDT Office Visit Adult Medicine [address] [phone] Paula Garnica PA Group B streptococcal UTI (Primary Dx); Recurrent UTI; Urinary tract infection with hematuria, site unspecified; Penicillin allergy 08/28/2024 Telephone Infectious Disease - [place] [address] [phone] Paula Gonzalez RN 08/22/2024 1:30 PM EDT Office Visit Obstetrics & Gynecology - [address] [phone] Nguyen Crespo CNM Encounter for well woman exam with routine gynecological exam (Primary Dx); Pelvic pain; Screening breast examination; Morbid obesity (CMS/HCC V24, CMS/HCC V28) 08/22/2024 Telephone Adult [address] [phone] Ora Naylor MD UTI 08/21/2024 8:29 AM EDT Anesthesia Event [facility] Endoscopy [address] [place] [address] Mary Lyon MD 08/21/2024 7:47 AM EDT - 08/21/2024 11:59 PM EDT Hospital Encounter [facility] Endoscopy [address] [place] [phone] Dena Carrasco MD Steele, Matthew G, CRNA Kriz, Petra, MD Rectal bleeding Discharge Disposition: Home or Self Care 08/14/2024 9:30 AM EDT Office Visit Adult Medicine [address] [phone] Cami Quiles PA Acute cystitis without hematuria (Primary Dx); Controlled type 2 diabetes mellitus without complication, without long-term current use of insulin ([facility] V24, [facility] V28); Lump of skin of back 08/13/2024 Telephone Adult [address] [phone] Ora Naylor MD Back Pain 08/07/2024 9:30 AM EDT Office Visit Orthopedic Surgery [facility] [address] [phone] Duke Dunn DPM PVD (peripheral vascular disease) ([facility] V24) (Primary Dx); Controlled type 2 diabetes with neuropathy ([facility] V24, [facility] V28); Difficulty walking; Pain in both feet; Dermatophytosis, nail 07/29/2024 9:30 AM EDT Nutrition Internal Medicine [facility] [address] [phone] Controlled type 2 diabetes mellitus without complication, without long-term current use of insulin ([facility] V24, [facility] V28) (Primary Dx); Morbid obesity ([facility] V24, [facility] V28) 07/22/2024 Telephone Adult [address] [phone] Ora Naylor MD Fever; Generalized Body Aches; Nausea 07/21/2024 8:40 AM EDT Office Visit Gastroenterology [address] [phone] Alivia Dominguez NP Rectal bleeding (Primary Dx); History of adenomatous polyp of colon; Gastroesophageal reflux disease without esophagitis; Family history of colon cancer in mother 07/21/2024 Telephone Gastroenterology [address] [phone] Alivia Dominguez NP 07/14/2024 Telephone Adult Medicine [address] [place] [phone] Ora Naylor MD notes 07/09/2024 3:20 PM EDT Anesthesia Event [facility] Main OR [address] [place] [phone] Lázaro Franco MD Spencer, Mark A, MD 07/09/2024 3:00 PM EDT - 07/09/2024 4:30 PM EDT Surgery [facility] OR [address] [place] [phone] Heriberto Rodriguez MD CYSTOSCOPY, LEFT URETEROSCOPY, LASER LITHOTRIPSY, STENT [47990 (CPT )] 07/09/2024 1:04 PM EDT - 07/09/2024 6:29 PM EDT Hospital Encounter [facility] OR [address] [place] [phone] Heriberto Rodriguez MD Discharge Disposition: Home or Self Care 07/09/2024 9:30 AM EDT Office Visit Endocrinology - [address] [phone] Jayesh Pineda MD Type 2 diabetes mellitus with other specified complication, without long-term current use of insulin (CMS/HCC V24, CMS/HCC V28) (Primary Dx); Hyperparathyroidism (CMS/HCC V24); Hypothyroidism, unspecified type 07/09/2024 7:15 AM EDT - 07/09/2024 11:59 PM EDT Hospital Encounter [facility] Xray [address] [place] [phone] Pain Discharge Disposition: Home or Self Care 07/04/2024 Lab Requisition [facility] - Main Lab [address] [facility] [place] [phone] Isabel Gray PA Dysuria 06/30/2024 2:25 PM EDT - 06/30/2024 9:42 PM EDT Emergency [facility] Emergency [address] [place] [phone] Nephrolithiasis (Primary Dx); Urinary tract infection without hematuria, site unspecified Discharge Disposition: Home or Self Care 06/30/2024 10:30 AM EDT Office Visit Orthopedic Surgery - [place] 160 175 [facility] [address] [place] [address] Luis Armando Eller MD Post-operative state (Primary Dx); S/P left rotator cuff repair 06/30/[address] [phone] Ora Naylor MD Abdominal Pain; Urinary Frequency from Last 3 Months Immunizations Name Administration Dates Next Due COVID-19 (Pfizer/Comirnaty) 12yo and older 12/29 Influenza Quadravalent, MDCK , 0.5ml, preservative free (Flucelvax) 6mo and older 01/18/2018 Influenza Quadravalent, MDCK , 0.5ml, with preservative (Flucelvax) 6mo and older 12/20/2016 Influenza Quadrivalent, 0.5m l, preservative free (Fluarix; FluLaval; Fluzone) ages 6mo and older (Afluria) 3yo and older 12/29/2022 Influenza trivalent, with pr eservative (Fluzone; Afluria) 6mo and older 12/13/2015 Influenza, Unspecified 12/29/2022 Pfizer (ages 12 & older) Bivalent, COVID-19 10/ Pfizer SARS-CoV-2 COVID-19, mRNA, LNP-S, preservative free 09/21/2020,08/31/2020 Pneumococcal polysaccharide 23 valent (Pneumovax 23) 2yo and older 01/15/2023,07/19/2017 SARS-COV-2 (COVID-19) Vaccine, Unspecified 09/09 Tdap Tetanus diptheria acell ular pertussis (Boostrix; Adacel) 7yo and older 10/31/2022,08/13/2012 Zoster recombinant (Shingrix) 19yo and older Surgical History Surgery Date Site/Laterality Comments KNEE [...] BLADDER SUSPENSION CYSTOSCOPY W/ URETERAL STENT PLACEMENT SECTION, LOW TRANSVERSE Medical History Medical History Date Comments Hypertension [...] Shingles DX:Shingles Diabetes mellitus (CMS/HCC V 24, CMS/HCC V28) DX:Diabetes mellitus (HCC) HLD (hyperlipidemia) 11/21/2021 DX:HLD (hyp erlipidemia) VIRGIE on CPAP DX:VIRGIE on CPAP Depression DX:Depression Overactive bladder DX:Overactive bladder Obesity with alveolar hypove ntilation (CMS/HCC V24, CMS/HCC V28) DX:Obesity with alveolar hypoventilation (HCC) Morbid obesity with BMI of 4 0.0-44.9, adult (CMS/HCC V24, CMS/HCC V28) DX:Morbid obesity wit h BMI of 40.0-44.9, adult (HCC) Asthma-chronic obstructive p ulmonary disease overlap syndrome ([facility] V24, [facility] V28) 01/30/2022 DX:Asthma-chronic obstructiv e pulmonary disease overlap syndrome ([facility]) Glaucoma Kidney stone on left side 06/2024 Dry skin BILATERAL LEGS/ USES PRESCRIBED CREAMS Adverse effect of anesthesia Shortness of breath Joint pain Urinary tract infection Family History Medical History Relation Name Comments Breast cancer Aunt 1 maternal x 1 Ovarian cancer Aunt 2 maternal x 6 6 maternal au nts also with ov, uterine ca Glaucoma Brother 1 x 2 Diabetes Brother 2 Paco R Arthritis Father Paco G House Coronary artery disease Father Paco G House [place] age 68, HTN, Diabetes, cataract, glaucoma Diabetes Father Paco G House Mental illness Father Paco G House Stroke Father Paco G House Emphysema Maternal Grandfather Ovarian cancer Maternal Grandmother uteri ne cancer same age Arthritis Mother Ester Kathryn Bowman Cancer Mother Ester Kathryn Bowman Colon cancer Mother Ester Kathryn Bowman Diabetes Mother Ester Kathryn Bowman with neur opathy, OA, Mental illness Mother Ester Kathryn Bowman Ovarian cancer Mother Ester Kathryn Bowman Uterine cancer Mother Ester Kathryn Bowman Lymphoma Mother's side 1 1st cousin Lung cancer Mother's side 2 1st cousin Lung cancer Paternal Grandfather Colon polyps Sister x 2 Antionette glaucoma, diabe luciano Diabetes Sister x 2 Antionette Relation Name Status Comments Aunt 1 maternal x 1 Aunt 2 maternal x 6 Brother 1 x 2 Alive Brother 2 Paco R Father Paco G House Alive Maternal Grandfather Maternal Grandmother Mother Ester Kathryn Bowman Alive Mother's side 1 1st cousin Alive Mother's side 2 1st cousin Paternal Grandfather Paternal Grandmother Sister x 2 Antionette Alive Social History Tobacco Use Types Packs/Day [...] Safety Answer Date Record ed Physical Abuse 08/21/2024 Verbal Abuse 08/21/2024 Comments No Sex and Gender Information Value Date Recorded Sex Assigned at Female 06/30/2024 2:43 PM EDT Legal Sex Female 3:50 AM EST Gender Identity Female 06/30/2024 2:43 PM EDT Sexual Orientation Straight 06/30/2024 2: 43 PM EDT Occupation Industry Job Start Date Job End Date 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[employer]; [employer]; 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 Not on file Not on file Not on file Obstetrics History Para Term AB IAB SAB Ectopic Multiple Livin g Live Births 2 1 1 1 1 1 1 Date Outcome GA Total Labor Labor/2nd/3rd Weight Sex Type Anes PTL Irina A1 A5 Name Clin Ectopic 1992 Term F Vag-S pont Living Comments 2024 : 3 adopted daughters ( all sibling, 12, twins 11) had since 1 yo Last Filed Vital Signs Vital Sign Reading Time Taken Comments Blood Pressure 172/92 09/23/2024 2:31 PM EDT Pulse 84 09/23/2024 2:31 PM EDT Temperature 36.2 C (97.1 F) 09/23/2024 2:31 PM EDT Respiratory Rate 17 09/22/2024 9:08 AM EDT Oxygen Saturation 98% 09/23/2024 2:31 PM EDT Inhaled Oxygen Concentration - - Weight 120 kg (264 lb) 09/23/2024 2:31 PM EDT Height 160 cm (5' 3 ) 09/22/2024 9:08 AM EDT Body Mass Index 46.77 09/22/2024 9:08 AM EDT Plan of Treatment Upcoming Encounters Date Type Department Care Team (Late st Contact Info) Description 10/01/2024 7:30 AM EDT Office Visit Adult Medicine [facility] [address] [place] [phone] Paula Garnica PA [address] [place] [address] 10/09/2024 9:30 AM EDT Office Visit Orthopedic Surgery - [place] [address] [phone] Duke Dunn DPM 175 [facility] [address] [place] [address] 11/06/2024 1:00 PM EDT Office Visit Endocrinology - [address] [phone] Jayesh Pineda MD [address] [place] [address] 11/20/2024 10:00 AM EDT Office Visit Gastroenterology - [place] 175 [facility] [address] [phone] Tay Walker DO [address] [address] 11/26/2024 3:00 PM EDT Office Visit Infectious Disease - [place] [address] [phone] Jo Diaz MD [address] [address] 12/05/2024 11:00 AM EDT Office Visit Orthopedic Surgery - [place] [address] [phone] Genny Arreguin PA [address] [address] 12/09/2024 9:00 AM EDT Nutrition Internal Medicine - [place] [address] [phone] Bruna Caballero, LESLY [address] [place] [phone] 12/12/2024 8:30 AM EDT Office Visit Adult Medicine East - [address] [phone] Ora Sweeney MD [address] [place], [place] 09/22/2025 9:30 AM EDT Office Visit Pulmonolgy - [place] [address] [address] [place] [phone] Pretty Le MD [address] [place] [address] [address] [place] [address] Health Maintenance Due Date Last Done Comments Diabetes: Annual Retina Eye Exam 1968 RSV Immunization Adult Patients (1 - Risk 60-74 years 1-dose series) 2018 Zoster Vaccines (2 of 2) 02/23/2023 12/29/2022 COVID-19 Vaccine ( season) 2023 12/29/2022, 12/29/2022, 05/18/2021, Additional history exists Pneumococcal Vaccine: 50+ Years (2 of 2 - PCV) 01/16/2024 01/15/2023, 07/19/2017 Diabetes: Blood Sugar Control Test (HGBA1C) 05/25/2024 11/26/2023, 11/26/2023, 09/26/2023 Diabetes: Annual Foot Exam 09/30/2024 10/01/2023 Medicare Annual Wellness Visit 09/30/2024 10/01/2023 Diabetes: Annual Urine Albumin-Creatinine Ratio (uACR) 10/03/2024 10/04/2023 Influenza Vaccine (#1) 2024 , 12/29/2022, 01/18/2018, Additional history exists Breast Cancer Screening 12/11/2024 12/12/19 23, 12/05/2021, 11/26/2020, Additional history exists Social Influencers of Health Screening 01/23/2025 01/24/2024 Diabetes: Annual GFR (Glomerular Filtration Rate) 06/30/2025 06/30/2024, 06/24/2024, 11/23/2023, Additional history exists Hypertension/CHF/CAD Annual BMP Blood Test 06/30/2025 06/30/2024, 06/24/2024, 11/23/2023, Additional history exists Falls Risk Assessment 08/21/2025 08/21/2024, 024 Cholesterol Screening (Lipid Panel) 10/03/2028 10/04/2023, 10/04/2023 Osteoporosis Screening (Bone Density Screening) 03/31/2031 03/31/2021, 01/21/2018 DTaP,Tdap,and Td Vaccines (3 - Td or Tdap) 10/31/2032 10/31/2022, 08/13/2012 Colorectal Cancer Screening: Colonoscopy 08/21/2034 08/21/2024, 09/29/2019 Hepatitis C Screening Completed 09/22/2014 Depression Screening Completed 08/23/2024 HIB Vaccines Aged Out No longer eligi [...] this topic Medical Devices Implanted Type Area Lab Support Tech Device Identifier Shelf Expiration Date Model / Serial / Lot Stent Uret Stretch Vl 7fr 22-3 - Sn/A - [id number] Implanted:Qty: 1 on 07/09/2024 by Heriberto Rodriguez MD at [facility] Stents Left: Ureter [employer]/GYNECOLG Y 11/18/2026 [id number] / N/A / [id number] Procedures Procedure Name Priority Date/Time Associated Diagnosis Comments ALTAMIRANO URINE CULTURE TUBE Routine 09/23/2024 3:16 PM EDT Group B streptococcal UTI Recurrent UTI Urinary tract infection with hematuria, site unspecified URINALYSIS WITH REFLEX MICROSCOPIC AND CULTURE Routine 09/23/2024 3:16 PM EDT Group B streptococcal UTI Recurrent UTI Urinary tract infection with hematuria, site unspecified URINALYSIS WITH REFLEX MICROSCOPIC AND CULTURE Routine 09/23/2024 3:16 PM EDT Group B streptococcal UTI Recurrent UTI Urinary tract infection with hematuria, site unspecified CULTURE URINE Routine 09/23/2024 3:16 PM EDT Group B streptococcal UTI Recurrent UTI Urinary tract infection with hematuria, site unspecified XR KNEE 4+ VIEWS BILAT Routine 09/10/2024 9:24 AM EDT Pain US PELVIS NON OB COMPLETE W TRANSVAGINAL Routine 09/01/2024 2:56 PM EDT Encounter for well woman exam with routine gynecological exam Pelvic pain CULTURE URINE Routine 08/28/2024 3:56 PM EDT Recurrent UTI POC URINE NON-AUTO W/O MICRO Routine 08/28/2024 2:42 PM EDT Urinary tract infection with hematuria, site unspecified COLONOSCOPY Routine 08/21/2024 8:42 AM EDT Rectal bleeding TISSUE EXAM Routine 08/21/2024 8:39 AM EDT Rectal bleeding CULTURE URINE Routine 08/14/2024 10:15 AM EDT Acute cystitis without hematuria POC URINE NON-AUTO W/O MICRO Routine 08/14/2024 10:13 AM EDT Acute cystitis without hematuria POCT GLUCOSE BLOOD Routine 07/09/2024 4: 38 PM EDT OXYGEN THERAPY, ADULT Routine 07/09/2024 4:26 PM EDT OXYGEN THERAPY, ADULT Routine 07/09/2024 4:26 PM EDT XR UROGRAM RETROGRADE Routine 07/09/2024 4:17 PM EDT Pain TH AN LMA(NO CHARGE) Routine 07/09/2024 3:[address] CYSTO W URETEROSCOPY/PYELOSCO PY W LITHOTRIPSY INCL [...] LEFT Routine 06/30/2024 10:16 AM EDT Pain HEMOGLOBIN A1C Routine 11/26/2023 URINE ALBUMIN CREATININE RATIO Routine 10/04/2023 LIPID PANEL Routine 10/04/2023 FALLS RISK ASSESSMENT Routine 10/01/2023 DIABETES FOOT EXAM Routine 10/01/2023 SCREENING MAMMOGRAPHY BI 2-VIEW BREAST INC CAD Routine 12/11/2022 10:44 AM EDT Encounter for screening mammogram for malignant neoplasm of breast DXA BONE DENSITY STUDY 1+ SITS AXIAL SKEL Routine 03/31/2021 9:28 AM EST Hyperparathyroidism , unspecified ([facility]/HCC V24) HEPATITIS C SCREENING Routine 09/22/2014 from Last 3 Months or Most Recently Relevant to Health Maintenance Results * (ABNORMAL) Urinalysis with reflex microscopic and culture (09/23/2024 3:16 PM EDT) Only the most recent of2 resultswithin the time period is included. Specific [place] Urine 1.009 1.003 - 1.030 LAB URINALYSIS - AUTOMATED METHOD 09/23/2024 6:37 PM [facility] pH, Urine 6.5 5.0 - 8.0 pH LAB URINALYSIS - AUTOMATED METHOD 09/23/2024 6:37 PM [facility] Leukocytes, Urine Large(A) Negative LAB URINALYSIS - AUTOMATED METHOD 09/23/2024 6:37 PM [facility] Nitrite, Urine Negative Negative LAB URINALYSIS - AUTOMATED METHOD 09/23/2024 6:37 PM [facility] Protein, Urine Trace <=Trace mg/dL LAB URINALYSIS - AUTOMATED METHOD 09/23/2024 6:37 PM [facility] Glucose, Urine Negative Negative mg/dL LAB URINALYSIS - AUTOMATED METHOD 09/23/2024 6:37 PM [facility] Ketones, Urine Negative Negative mg/dL LAB URINALYSIS - AUTOMATED METHOD 09/23/2024 6:37 PM [facility] Urobilinogen, Urine 0.2 0.2 - 1.0 mg/dL LAB URINALYSIS - AUTOMATED METHOD 09/23/2024 6:37 PM EDT [facility] Bilirubin, Urine Negative Negative LAB URINALYSIS - AUTOMATED METHOD 09/23/2024 6:37 PM EDT [facility] Blood, Urine Trace(A) Negative LAB URINALYSIS - AUTOMATED METHOD 09/23/2024 6:37 PM EDT [facility] RBC, Urine 1.2 0 - 4 /HPF LAB URINALYSIS - AUTOMATED METHOD 09/23/2024 6:37 PM EDT [facility] WBC, Urine 106.9(H) 0 - 4 /HPF LAB URINALYSIS - AUTOMATED METHOD 09/23/2024 6:37 PM EDT [facility] Squamous Epithelial, Urine 18 0 - 60 /LPF LAB URINALYSIS - AUTOMATED METHOD 09/23/2024 6:37 PM [facility] Bacteria, Urine Many(A) Negative /HPF LAB URINALYSIS - AUTOMATED METHOD 09/23/2024 6:37 PM T [facility] Hyaline Casts, Urine 1.6 0 - 3 /LPF LAB URINALYSIS - AUTOMATED METHOD 09/23/2024 6:37 PM [facility] Urine Urine specimen obtained by clean catch procedure / Unknown Non-blood Collection / Unknown 09/23/2024 3:16 PM EDT 09/23/2024 3:16 PM EDT us Jo Diaz MD LAB URINE ORDERABLES Final Resul t [facility] [address] [place] [address], * [place] urine culture tube (09/23/2024 3:16 PM EDT) Only the most recent of2 resultswithin the time period is included. Extra Tube Hold for add-ons. 09/23/2024 7:01 PM EDT [facility] Comment:Auto resulted. Urine Urine specimen obtained by clean catch procedure / Unknown Non-blood Collection / Unknown 09/23/2024 3:16 PM EDT 09/23/2024 3:16 PM EDT us Jo Diaz MD LAB URINE ORDERABLES Final Resul t Performing Organization Address [facility] de Phone Number [facility] [address] [place] [address], [place] [phone] * (ABNORMAL) Culture urine (09/23/2024 3:16 PM EDT) Only the most recent of4 resultswithin the time period is included. Culture, Urine >=100,000 CFU/mL Streptococcus beta-hemolytic Group B(A) 09/24/2024 2:01 PM EDT [facility] Comment: Susceptibility testing is not routinely performed for Beta Streptococcus isolates since these organisms are predictably sensitive to Penicillin. If the Patient is not responding, is allergic to Penicillin, or further therapeutic information is requir ed, please consult an Infectious Disease Specialist. Urine Urine specimen obtained by clean catch procedure / Unknown Non-blood Collection / Unknown 09/23/2024 3:16 PM EDT 09/23/2024 6:37 PM EDT us Jo Diaz MD LAB MICROBIOLOGY - GENERAL ORDER ARELIS Final Result Performing Organization Address [facility] Phone Number [facility] [address] [place] [address], [place] [phone] * XR Knee 4+ Views bilat (09/10/2024 9:24 AM EDT) Anatomical Region Laterality Modality Lower Extremities, Knee Bilateral Computed Radiography Narrative 09/10/2024 1:38 PM EDT Date of Visit: 09/10/2024 Reason for visit: Bilateral knee pain Views: AP, Lateral, [place], [place] bilateral knees Findings: Right knee shows severe narrowing through the medial and lateral compartments with subchondral sclerosis and marginal osteophytes. Left knee with narrowing through the medial greater than lateral compartments. Right knee with severe degenerative changes of the patellofemoral compartment on sunrise view, left knee moderate degenerative changes on sunrise view. No bony lesions or acute findings. Impression: Osteoarthritis bilateral knees us Lorie Moore FORENSIC NURSE IMG XR PROCEDURES Final Result * US Pelvis Non OB Complete w Transvaginal (09/01/2024 2:56 PM EDT) Anatomical Region Laterality Modality Body, Pelvis Ultrasound 09/01/2024 3:31 PM EDT Impressions 09/01/2024 3:46 PM EDT 2 hypoechoic uterine masses suggestive of subserosal fibroids. -------- FINAL REPORT -------- Dictated By: Matthew Sorensen Dictated Date: 09/01/2024 15:31 ET Assigned Physician: Matthew Sorensen Reviewed and Electronically Signed By: Matthew Sorensen Signed Date: 09/01/2024 15:46 ET Workstation ID: [id number] Transcribed By: Self Edit Transcribed Date: 09/01/2024 15:41 ET Narrative 09/01/2024 3:46 PM EDT Procedure: Ultrasound of the pelvis. HISTORY: LLQ pain. TECHNIQUE: Transabdominal and endovaginal grayscale, color Doppler, and spectral Doppler ultrasound evaluation of the pelvis. COMPARISON: None. FINDINGS: Anteverted uterus measuring 7.5 x 4.8 x 5.5 cm. Endometrial stripe measures 4 mm. Small nabothian cysts are incidentally noted. There are 2 uterine fibroids, one subserosal located in the right anterior fundus measuring 2.5 x 1.6 x 2.2 cm and one also subserosal located anteriorly on the left measuring 1.8 x 1.5 x 2.0 cm. The right ovary measures 1.5 x 1.3 x 1.4 cm. The left ovary measures 2.4 x 1.7 x 1.9 cm. Normal ovarian Doppler flow. No focal ovarian lesion. Procedure Note Matthew Sorensen MD - 09/01/2024 Procedure: Ultrasound of the pelvis. HISTORY: LLQ pain. TECHNIQUE: Transabdominal and endovaginal grayscale, color Doppler, andspectral Doppler ultrasound evaluation of the pelvis. COMPARISON: None. FINDINGS: Anteverted uterus measuring 7.5 x 4.8 x 5.5 cm. Endometrial stripemeasures 4 mm. Small nabothian cysts are incidentally noted. There are 2 uterine fibroids, one subserosal located in the right anteriorfundus measuring 2.5 x 1.6 x 2.2 cm and one also subserosal locatedanteriorly on the left measuring 1.8 x 1.5 x 2.0 cm. The right ovary measures 1.5 x 1.3 x 1.4 cm. The left ovary measures 2.4 x 1.7 x 1.9 cm. Normal ovarian Doppler flow. No focal ovarian lesion. IMPRESSION: 2 hypoechoic uterine masses suggestive of subserosal fibroids. -------- FINAL REPORT -------- Dictated By: Matthew Sorensen Dictated Date: 09/01/2024 15:31 ET Assigned Physician: Matthew Sorensen Reviewed and Electronically Signed By: Matthew Sorensen Signed Date: 09/01/2024 15:46 ET Workstation ID: [id number] Transcribed By: Self Edit Transcribed Date: 09/01/2024 15:41 ET Nguyen Crespo CNM IM US PROCEDURES Final Resul t * (ABNORMAL) POC Urine Non-Auto W/O Micro (08/28/2024 2:42 PM EDT) Only the most recent of2 resultswithin the time period is included. Leukocytes UA POC Positive(A) Negative Nitrite UA POC Negative Negative Urobilinogen UA POC Negative Negative Protein UA POC Negative Negative PH UA POC 6.0 5.0 - 9.0 Blood UA POC Positive(A) Negative, Trace Specific [place] UA POC 1.010 1.001 - 1.035 Ketones UA POC Negative Negative Bilirubin UA POC Negative Negative Glucose UA POC Normal Normal, Trace Color UA POC Dark Yellow Urine Urine specimen obtained by clean catch procedure / Unknown 08/28/2024 2:42 PM EDT Paula NOVAK POINT OF CARE TEST ENTER/EDIT O RDERABLES Final Result * COLONOSCOPY Anesthesia - MAC; [facility] ENDOSCOPY (08/21/2024 8:42 AM EDT) Anatomical Region Laterality Modality Endoscopy 08/21/2024 8:31 AM EDT Impressions 08/21/2024 8:43 AM EDT - One 5 mm polyp in the sigmoid colon, removed with a cold snare. Resected and retrieved. - Internal hemorrhoids. Recommendation: - Await pathology results. - Repeat colonoscopy in 10 years for surveillance. Narrative 08/21/2024 8:43 AM EDT [facility] GI Patient Name: Ana Luisa Bowman Procedure Date: 08/21/2024 8:31 AM Date of : 1960 Age: 63 Gender: Female Note Status: Finalized Attending MD: Dena Carrasco MD, Procedure Date No Time: 08/21/2024 Procedure: Colonoscopy Indications: Evaluation of unexplained GI bleeding presenting with Hematochezia Providers: Dena Carrasco MD Referring MD: Dena Carrasco MD Medicines: Monitored Anesthesia Care Complications: No immediate complications. Estimated blood loss: Minimal. Estimated Blood Loss: Estimated blood loss was minimal. Procedure: Pre-Anesthesia Assessment: - Prior to the procedure, a History and Physical was performed, and patient medications and allergies were reviewed. The patient is competent. The risks and benefits of the procedure and the sedation options and risks were discussed with the patient. All questions were answered and informed consent was obtained. Patient identification and proposed procedure were verified by the physician, the nurse, the polisher and sander and the sterilization technician in the pre-procedure area in the endoscopy suite. Mental Status Examination: alert and oriented. Airway Examination: normal oropharyngeal airway and neck mobility. Respiratory Examination: clear to auscultation. CV Examination: normal. Prophylactic Antibiotics: The patient does not require prophylactic antibiotics. Prior Anticoagulants: The patient has taken no anticoagulant or antiplatelet agents. ASA Grade Assessment: IV - A patient with severe systemic disease that is a constant threat to life. After reviewing the risks and benefits, the patient was deemed in satisfactory condition to undergo the procedure. The anesthesia plan was to use monitored anesthesia care (MAC). Immediately prior to administration of medications, the patient was re-assessed for adequacy to receive sedatives. The heart rate, respiratory rate, oxygen saturations, blood pressure, adequacy of pulmonary ventilation, and response to care were monitored throughout the procedure. The physical status of the patient was re-assessed after the procedure. After I obtained informed consent, the scope was passed under direct vision. Throughout the procedure, the patient's blood pressure, pulse, and oxygen saturations were monitored continuously. The Colonoscope was introduced through the anus and advanced to the cecum, identified by appendiceal orifice and ileocecal valve. The colonoscopy was performed without difficulty. The patient tolerated the procedure. The quality of the bowel preparation was good except the ascending colon was fair. Findings: The perianal and digital rectal examinations were normal. A 5 mm polyp was found in the sigmoid colon. The polyp was sessile. The polyp was removed with a cold snare. Resection and retrieval were complete. Estimated blood loss was minimal. Internal hemorrhoids were found during retroflexion. The hemorrhoids were Grade II (internal hemorrhoids that prolapse but reduce spontaneously). Procedure Code(s): --- Professional --- 35914, Colonoscopy, flexible; with removal of tumor(s), polyp(s), or other lesion(s) by snare technique Diagnosis Code(s): --- Professional --- D12.5, Benign neoplasm of sigmoid colon CPT copyright 2020 [employer]. All rights reserved. The codes documented in this report are preliminary and upon invoice coder review may be revised to meet current compliance requirements. Dena Carrasco MD 08/21/2024 8:43:30 AM This report has been signed electronically.Dena Carrasco MD Number of Addenda: 0 Note Initiated On: 08/21/2024 8:31 AM Scope Withdrawal Time: 0 hours 6 minutes 6 seconds Scope In: 8:35:30 AM Scope Out: 8:43:34 AM Endoscopy Department at [facility] - [address] [place] [phone] Procedure Note Dena Carrasco MD - 08/21/2024 [facility] GI Patient Name: Ana Luisa Bowman Procedure Date: 08/21/2024 8:31 AM Date of : 1960 Age: 63 Gender: Female Note Status: Finalized Attending MD: Dena Carrasco MD, Procedure Date No Time: 08/21/2024 Procedure: Colonoscopy Indications: Evaluation of unexplained GI bleeding presentingwith Hematochezia Providers: Dena Carrasco MD Referring MD: Dena Carrasco MD Medicines: Monitored Anesthesia Care Complications: No immediate complications. Estimated blood loss: Minimal. Estimated Blood Loss: Estimated blood loss was minimal. Procedure: Pre-Anesthesia Assessment: - Prior to the procedure, a History and Physicalwas performed, and patient medications and allergieswere reviewed. The patient is competent. The risks and benefits of the procedure and the sedation optionsand risks were discussed with the patient. Allquestions were answered and informed consent was obtained. Patient identification and proposed procedure were verified by the physician, the nurse, theanesthetist and the sterilization technician in the pre-procedure area in the endoscopy suite. Mental Status Examination: alertand oriented. Airway Examination: normal oropharyngeal airway and neck mobility. Respiratory Examination: clear to auscultation. CV Examination: normal. Prophylactic Antibiotics: The patient does notrequire prophylactic antibiotics. Prior Anticoagulants: The patient has taken no anticoagulant or antiplatelet agents. ASA Grade Assessment: IV - A patient with severe systemic disease that is a constant threatto life. After reviewing the risks and benefits, the patient was deemed in satisfactory condition to undergo the procedure. The anesthesia plan was touse monitored anesthesia care (MAC). Immediately priorto administration of medications, the patient was re-assessed for adequacy to receive sedatives. The heart rate, respiratory rate, oxygen saturations, blood pressure, adequacy of pulmonary ventilation,and response to care were monitored throughout the procedure. The physical status of the patient was re-assessed after the procedure. After I obtained informed consent, the scope was passed under direct vision. Throughout theprocedure, the patient's blood pressure, pulse, and oxygen saturations were monitored continuously. The Colonoscope was introduced through the anus and advanced to the cecum, identified by appendiceal orifice and ileocecal valve. The colonoscopy was performed without difficulty. The patient tolerated the procedure. The quality of the bowel preparation was good except the ascending colon was fair. Findings: The perianal and digital rectal examinations were normal. A 5 mm polyp was found in the sigmoid colon. Thepolyp was sessile. The polyp was removed with a coldsnare. Resection and retrieval were complete. Estimatedblood loss was minimal. Internal hemorrhoids were found duringretroflexion. The hemorrhoids were Grade II (internal hemorrhoids that prolapse but reduce spontaneously). Procedure Code(s): --- Professional --- 10960, Colonoscopy, flexible; with removal of tumor(s), polyp(s), or other lesion(s) by snare technique Diagnosis Code(s): --- Professional --- D12.5, Benign neoplasm of sigmoid colon CPT copyright 2020 [employer]. All rights reserved. The codes documented in this report are preliminary and upon invoice coder reviewmay be revised to meet current compliance requirements. Dena Carrasco MD 08/21/2024 8:43:30 AM This report has been signed electronically.Dena Carrasco MD Number of Addenda: 0 Note Initiated On: 08/21/2024 8:31 AM Scope Withdrawal Time: 0 hours 6 minutes 6 seconds Scope In: 8:35:30 AM Scope Out: 8:43:34 AM Endoscopy Department at [facility] - [address] [place] [id number] IMPRESSION: - One 5 mm polyp in the sigmoid colon, removed with a cold snare. Resected and retrieved. - Internal hemorrhoids. Recommendation: - Await pathology results. - Repeat colonoscopy in 10 years forsurveillance. Dena Carrasco MD GI~PROCEDURE ORDERABLES Fin al Result * Tissue exam (08/21/2024 8:39 AM EDT) Final Diagnosis A. Large Intestine, Sigmoid Colon, polyp x1 via cold snare: - Hyperplastic polyp. 08/22/2024 11:05 AM EDT [facility] Gross Description A. Large Intestine, Sigmoid Colon, polyp x1 via cold snare: Labeled sigmoid colon polyp . Received in formalin is a 0.5 cm, in greatest centimeters, soft to rubbery, pierre-pink tissue fragment, which is inked black at the base, wrapped in paper and submitted in toto in one cassette, one piece, multiple levels. dvb/DG 08/22/2024 11:05 AM EDT [facility] Disclaimer Unless otherwise specified, all tissue is 10% NB formalin fixed and paraffin embedded. 08/22/2024 11:05 AM EDT [facility] Tissue Sigmoid colon structure / Unknown 08/21/2024 8:39 AM EDT 08/21/2024 10:33 AM EDT Dena Carrasco MD LAB PATHOLOGY ORDERABLES Fi nal Result Performing Organization Address [facility] Co de Phone Number [facility] [address] [place] [address], [place] [phone] * (ABNORMAL) POCT Glucose, blood (07/09/2024 4:38 PM EDT) Only the most recent of2 resultswithin the time period is included. Glucose POCT 172(H) 70 - 100 mg/dL 07/09/2024 4:38 PM EDT [facility] Blood Capillary blood specimen / Unknown 07/09/2024 4:38 PM EDT 07/09/2024 4:40 PM EDT Heriberto Rodriguez MD LAB POINT OF CARE TE ST DOCKED DEVICE UNSOLICITED RESULTS Final Result Performing Organization Address [facility] Co de Phone Number [facility] [address] [place] [address], [place] [phone] * XR Urogram Retrograde (07/09/2024 4:17 PM [...] Signed Date: 07/09/2024 16:34 ET Workstation ID: [id number] Transcribed By: Self Edit Transcribed Date: 07/09/2024 16:33 ET Narrative 07/09/2024 4:34 PM EDT Findings: Digital spot images of the abdomen are submitted from the OR, used intraoperatively by Dr. rhoades during a urological procedure. No radiologist was in attendance. Fluoroscopy was provided in the OR by a rad technologist. Cumulative Air Kerma: 6.37 mGy Procedure Note Holley Wheeler MD - 07/09/2024 Findings: Digital spot images of the abdomen are submitted from the OR, usedintraoperatively by Dr. rhoades during a urological procedure. Noradiologist was in attendance. Fluoroscopy was provided in the OR by a rad technologist. Cumulative Air Kerma: 6.37 mGy IMPRESSION: Impression: 1. Intraoperative images of the abdomen. 2. Fluoroscopy provided in the OR. NC -------- FINAL REPORT -------- Dictated By: Holley Wheeler Dictated Date: 07/09/2024 16:33 ET Assigned Physician: Holley Wheeler Reviewed and Electronically Signed By: Holley Wheeler Signed Date: 07/09/2024 16:34 ET Workstation ID: [id number] Transcribed By: Self Edit Transcribed Date: 07/09/2024 16:33 ET Heriberto Rodriguez MD IMG FLUOROSCOPY PROCEDURES Final Result * TH AN LMA(NO CHARGE) (07/09/2024 3:59 PM EDT) Narrative Gloria Boyle CRNA - 07/09/2024 3:59 PM EDT Gloria Boyle CRNA 07/09/2024 4:01 PM General Information and Staff Patient location during procedure: OR Performed by: Gloria Boyle CRNA Authorized by: Lázaro Franco MD Intubation Additional Comments Attempted intubation c Alec 3. Unable to easily elevate tongue to obtain view. Dr. Franco agreed to pivot to LMA 4. Placed without difficulty. Gauze bite block placed. Urgency: elective Final Airway Details LMA Size: 4 LMA Type: LMA Seal Pressure: Final airway type: LMA Indications and Patient Condition Indications for airway management: anesthesia Soft Tissue Damage: No Dentition Unchanged: Yes Patient position: neutral Mask difficulty assessment: 1 - vent by mask Lázaro Franco MD ANESTHESIA ORDERABLES Final Re sult * (ABNORMAL) Bacterial identification and susceptibility, aerobic (07/03/2024 12:00 AM EDT) Culture, Bacterial ID and Sensitivity Enterococcus faecalis(A) AARON 07/05/2024 9:20 AM EDT [facility] Comment: Edited result: Previously reported as Enterococcus species on 07/04/2024 at 1100 EDT. Other Urine specimen from urethra / Unknown 07/03/2024 07/04/2024 10:23 AM EDT Narrative [facility] - 07/05/2024 9:20 AM EDT Additional [...] Enterococcus faecalis Nitrofurantoin AARON <=16 ug/ml: Susceptible Isabel NOVAK LAB MICROBIOLOGY - GENERAL ORDER ARELIS Final Result [facility] [address] [place] [address], [place] [phone] * CT Abdomen Pelvis w Contrast (06/30/2024 [...] by: Ivan Ann MD on 06/30/2024 20:22:[address] PROCEDURES Final Re sult * Type and screen (06/30/2024 1:38 PM EDT) ABO Group A 06/30/2024 2:40 PM EDT [facility] Rh Type Positive 06/30/2024 2:40 PM EDT [facility] Antibody Screen Negative 06/30/2024 2:40 PM EDT [facility] Blood Venous blood specimen / Unknown Venipuncture / Unknown 06/30/2024 1:38 PM EDT 06/30/2024 1:45 PM EDT us Luis Armando Martinez MD LAB BLOOD BANK TEST ORDERABLES Final Result [facility] [address] [place] [address], [place] [phone] * (ABNORMAL) CBC auto differential (06/30/2024 12:29 PM EDT) WBC 7.5 4.8 - 10.8 K/mcL LAB HEMETOLOGY METHOD 06/30/2024 1:33 PM EDT [facility] RBC 4.70 3.80 - 4.80 M/mcL LAB HEMETOLOGY METHOD 06/30/2024 1:33 PM EDT [facility] Hemoglobin 13.0 11.5 - 16.0 g/dL LAB HEMETOLOGY METHOD 06/30/2024 1:33 PM EDT [facility] Hematocrit 39.5 35.0 - 47.0 % LAB HEMETOLOGY METHOD 06/30/2024 1:33 PM EDT [facility] MCV 83.9 79.0 - 98.0 FL LAB HEMETOLOGY METHOD 06/30/2024 1:33 PM EDT [facility] MCH 27.6 27.0 - 32.0 pcg LAB HEMETOLOGY METHOD 06/30/2024 1:33 PM EDT [facility] MCHC 32.9 32.0 - 37.0 g/dL LAB HEMETOLOGY METHOD 06/30/2024 1:33 PM EDT [facility] RDW 14.2 11.0 - 15.0 % LAB HEMETOLOGY METHOD 06/30/2024 1:33 PM EDT [facility] Platelets 199 130 - 400 K/mcL LAB HEMETOLOGY METHOD 06/30/2024 1:33 PM EDT [facility] MPV 11.3(H) 7.0 - 11.0 FL LAB HEMETOLOGY METHOD 06/30/2024 1:33 PM EDT [facility] NRBC 0.0 <1.0 % LAB HEMETOLOGY METHOD 06/30/2024 1:33 PM EDT [facility] NRBC Absolute 0.00 <0.10 K/mcL LAB [facility]EMETOLOGY [facility]24 [facility] Neutrophils Relative 68.3 % LAB HEMETOLOGY METHOD 06/30/2024 1:33 PM EDT [facility] Lymphocytes Relative 22.5 % LAB HEMETOLOGY METHOD [facility]24 1:[facility] Monocytes Relative 5.6 % LAB HEMETOLOGY METHOD 06/30/2024 1:33 PM [facility] Eosinophils Relative 2.1 % LAB HEMETOLOGY METHOD 06/30/2024 1:33 PM EDT [facility] Basophils Relative 0.7 % LAB HEMETOLOGY METHOD 06/30/2024 1:33 [facility] Immature Granulocytes Relative 0.8 % LAB HEMETOLOGY METHOD 06/30/2024 1:33 PM EDT [facility] Neutrophils Absolute 5.12 1.50 - 7.00 K/mcL LAB HEMETOLOGY METHOD 06/30/2024 1:33 PM EDT [facility] Lymphocytes Absolute 1.69 1.00 - 5.00 K/mcL LAB HEMETOLOGY METHOD 06/30/2024 1:33 PM EDT [facility] Monocytes Absolute 0.42 0.20 - 1.00 K/mcL LAB HEMETOLOGY METHOD 06/30/2024 1:33 PM EDT [facility] Eosinophils Absolute 0.16 0.00 - 0.50 [facility] HEMETOLOGY METHOD 06/30/2024 1:33 PM EDT [facility] Basophils Absolute 0.05 0.00 - 0.20 K/[facility] [facility] HEMETOLOGY METHOD 06/30/2024 1:33 PM EDT [facility] Immature Granulocytes Absolute 0.06(H) 0.00 - 0.03 [facility] HEMETOLOGY METHOD 06/30/2024 1:33 PM EDT [facility] Blood Venous blood specimen / Unknown Venipuncture / Unknown 06/30/2024 12:29 PM EDT 06/30/2024 1:17 PM EDT us Luis Armando Martinez MD LAB BLOOD ORDERABLES Final Resu lt [facility] [address] [place] [address], * (ABNORMAL) Comprehensive metabolic panel (06/30/2024 12:29 PM EDT) Sodium 140 133 - 145 mmol/L LAB CHEMISTRY METHOD 06/30/2024 2:14 PM EDT [facility] Potassium 3.8 3.5 - 5.5 mmol/L LAB CHEMISTRY METHOD 06/30/2024 2:14 PM EDT [facility] Chloride 103 96 - 110 mmol/L LAB CHEMISTRY METHOD 06/30/2024 2:14 PM EDT [facility] CO2 27 21 - 32 mmol/L LAB CHEMISTRY METHOD 06/30/2024 2:14 PM EDT [facility] Anion Gap 10 3 - 11 LAB CHEMISTRY METHOD 06/30/2024 2:14 PM [facility] Glucose 274(H) 70 - 100 mg/dL LAB CHEMISTRY METHOD 06/30/2024 2:14 PM [facility] BUN 10 5 - 25 mg/dL LAB CHEMISTRY METHOD 06/30/2024 2:14 PM [facility] Creatinine 0.89 0.50 - 1.10 mg/dL LAB CHEMISTRY METHOD 06/30/2024 2:14 PM [facility] eGFR 72 >=60 mL/min/1. 73m2 LAB CHEMISTRY METHOD 06/30/2024 2:14 PM [facility] Comment:Calculation based on the Chronic Kidney Disease Epidemiology Collaboration (CKD-EPI) equation refit without adjustment for race. BUN/Creatinine Ratio 11.2 LAB CHEMISTRY METHOD 06/30/2024 2:14 PM [facility] Calcium 9.3 8.5 - 10.5 mg/dL LAB CHEMISTRY METHOD 06/30/2024 2:14 PM [facility] AST (SGOT) 41 10 - 42 unit/L LAB CHEMISTRY METHOD 06/30/2024 2:14 PM [facility] ALT (SGPT) 64(H) 10 - 60 unit/L LAB CHEMISTRY METHOD 06/30/2024 2:14 PM [facility] Alkaline Phosphatase 182(H) 42 - 121 unit/L LAB CHEMISTRY METHOD 06/30/2024 2:14 PM [facility] Total Protein 7.1 6.0 - 8.0 g/dL LAB CHEMISTRY METHOD 06/30/2024 2:14 PM [facility] Albumin 3.5 3.2 - 5.0 g/dL LAB CHEMISTRY METHOD 06/30/2024 2:14 PM [facility] Total Bilirubin 0.7 0.0 - 1.4 mg/dL LAB CHEMISTRY METHOD 06/30/2024 2:14 PM EDT [facility] Blood Venous blood specimen / Unknown Venipuncture / Unknown 06/30/2024 12:29 PM EDT 06/30/2024 1:17 PM EDT Result [facility] Luis Armando Martinez MD LAB BLOOD ORDERABLES Final Resu lt [facility] [address] [place] [address], [place] [phone] * XR Shoulder 2+ Views Left (06/30/2024 10:16 AM EDT) Anatomical Region Laterality Modality Upper Extremities, Shoulder Left Comp uted Radiography Narrative 06/30/2024 10:36 AM EDT Shoulder x-rays June 30, 2024. AP, Grashey, Y lateral, axillary views. No acute osseous abnormalities. Postsurgical changes. Good preservation of the glenohumeral articular cartilage. Result [facility] Luis Armando Eller MD IMG XR PROCEDURES Final Result * (ABNORMAL) Hemoglobin A1c (11/26/2023) [facility] Hemoglobin A1C 7.4(A) <=6.5 % Blood Venous blood specimen / Unknown Result [facility] Historical Provider LAB BLOOD ORDERABLES Soni l Result * Urine Albumin Creatinine Ratio (10/04/2023) [facility] Urine Albumin Creatinine Ratio Abstracted Result [facility] Historical Provider HEALTH MAINTENANCE Final Result * (ABNORMAL) Lipid panel (10/04/2023) [facility] LDL/HDL Ratio 4 0 - 4 Triglycerides 173(A) 0 - 150 mg/dL Cholesterol 146 0 - 200 mg/dL HDL 39(A) >=40 mg/dL LDL Cholesterol 73 0 - 100 mg/dL Blood Venous blood specimen / Unknown Result [facility] Historical Provider LAB BLOOD ORDERABLES Soni l Result * Falls Risk Assessment (10/01/2023) Falls Risk Assessment Abstracted us Historical Provider HEALTH MAINTENANCE Final Result * Diabetes Foot Exam (10/01/2023) HM Diabetes: Annual Foot Exam Abstracted us Historical Provider HEALTH MAINTENANCE Final Result * SCREENING MAMMOGRAPHY [...] interpreted with the aid of computer-aided detection. Comparison is made with 12/05/2021 and as far back as 11/12/2018. Positioning was limited by patient body habitus and images obtained are the best possible. Breast parenchyma is composed of scattered fibroglandular densities. Bilateral subcentimeter nodules appear stable. No new suspicious [...] No mammographic evidence of malignancy. BI-RADS 2-benign us Lee Sibley MD IMG XR PROCEDURES Final Resu lt * DXA BONE DENSITY STUDY 1+ SITS AXIAL SKEL (03/31/2021 9:28 AM EST) Anatomical Region Laterality Modality Bone Densitometr y 03/09/2021 11:3 4 AM EST Narrative 03/31/2021 4:11 PM EST BONE DENSITY Lumbar Spine T-score is +0.6 (SD relative to 20-29 y/o adult) Z-score is +2.2 (SD relative to age matched peers) This is normal by criteria defined by the WHO. Left Hip T-score is +0.3 Z-score is +1.7 This is normal by criteria defined by the WHO. Comparison exam(s): significant decrease in bone density of lumbar spine when compared to most recent bone density examination Confidence level is +/-95%. Impression: Based on the World Health Organization criteria, Ana Luisa House should be classified as having normal bone density. The [facility] Department of Internal Medicine recommends using [...] beclassified as having normal bone density. The [facility] Department of Internal Medicine recommendsusing National [...] MD IM DXA PROCEDURES Final Result * Hepatitis C Screening (09/22/2014) [facility] Hepatitis C Screening Abstracted Historical Provider HEALTH MAINTENANCE Final Result from Last 3 Months or Most Recently Relevant to Health Maintenance Insurance [facility] MEDIC[facility] Member Subscriber Plan / Payer (Ef fective 2024-Present) Name:Ana Luisa Clayton Relation to Subscriber:Self Name:Ana Luisa Hernandez A Payer ID:[id number] Group ID:[id number] Type:Not on file Address: [place] [address] [id number] Care Teams Recreation Manager Relationship Specialty Start Date End Date Ora Sweeney MD [address] [place] [address] [phone] PCP - General Internal Medicine 01/09/24
--- OUTSIDE RECORDS SUMMARY | 2024-09-26 22:05 | XMS_ITS ---
Author Name [facility] Organization Unknown Encounters Encounter Type Encounter Reason Primary Diagnosis Location Date Ambulatory [facility] 02/20/2022 Care Team Organization Name Specialty Phone Email Start Date End Da te [facility] ([place])
== END ==
LOC: HO.SL 20:30
PROVIDERS: Visit Provider Physician Assistant Medical
DX: G47.33 Obstructive sleep apnea (adult) (pediatric) (principal)
CPT/HCPCS: 95811

== ENCOUNTER 2025-01-30 09:23 | Outpatient (AMB) | payer OTHER, SELFPAY ==
--- OUTSIDE RECORDS SUMMARY | 2023-12-12 15:42 | XMS_ITS | Encounter Summary ---
Author Organization [facility] Address [address] [place] [address] Care Team Providers Care Medical Technicians Name Role Phone Ora Sweeney MD Primary Care Prov ider Encounter Details Date Type Department Care Team (Late st Contact Info) Description 12/12/2023 4:42 PM EDT Hospital Encounter TH HISTORIC ENCOUNTERS EASTERN CONVERSION ONLY Luis Armando Eller MD [address] [facility] [address] [place] [address] Social History Tobacco Use Types Packs/Day Years Used Date Smoking Tobacco: Never Passive Smoke Exposure: Never Smokeless Tobacco: Never Alcohol Use Standard Drinks/Week Comments No 0 (1 standard drink = 0.6 oz pur e alcohol) Housing Instability Answer Date Recorde d Are you worried that in the next 2 months you may not have stable housing? No 01/10/2025 Food Access & Nutrition Answer Date Rec orded Do you have access to a vari ety of food including fruits and vegetables? Yes 01/10/2025 Access to Healthcare Answer Date Record ed Within the last 3 months, ho w many times did you visit the emergency department for your medical care? 4 01/10/2025 Health Literacy Answer Date Recorded How often do you need to hav e someone help you when you read instructions, pamphlets, or other written material from your doctor or pharmacy? Rarely 01/10/2025 Caregiver: How often do you need to have someone help you when you read instructions, pamphlets, or other written material from your doctor or pharmacy? Not on file 01/10/2025 Financial Risk Answer Date Recorded How hard is it for you to pa y for the very basics like food, housing, medical care, and air conditioning / heating? Not very hard 01/10/2025 Transportation Answer Date Recorded Has the lack of transportati on kept you from meetings, work, or from getting things needed for daily living? No Has the lack of transportati on kept you from medical appointments or from getting medications? No 01/10/2025 Social Isolation Answer Date Recorded How often do you feel lonely or isolated from th ose around you? Rarely 01/10/2025 Food Risk Answer Date Recorded Within the past 12 months we worried whether our food would run out before we got money to buy more. Never true 01/10/2025 Within the past 12 months th e food we bought just didn't last and we didn't have money to get more. Never true 01/10/2025 Dependent Care Answer Date Recorded Do you need help finding or paying for care for your loved ones. For example, children's librarian or elderly care for an older adult? No 01/10/2025 Education Answer Date Recorded Do you think completing more education or training, like finishing a GED, going to college, or learning a trade, would be helpful for you? No 01/10/2025 Employment and Income Answer Date Recor ded During the last four weeks, have you been actively looking for work? No 01/10/2025 Living Situation Answer Date Recorded What is your living situation? 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 Wish to be (Past 1 Month) No 025 8:41 PM EDOrlando Driscoll, MARILYN 2. Non-Specific Active Suici brandy Thoughts (Past 1 Month) No 01/09/2025 8:41 PM Orlando Quintanilla, MARILYN 6. Suicidal Behavior (Lifetime) No 8:41 PM GIOVANNIT Orlando Call RN documented as of this encounter Plan of Treatment Upcoming Encounters Date Type Department Care Team (Late st Contact Info) Description 02/02/2025 1:30 PM EST Office Visit Adult Medicine [address] [phone] Ora Sweeney MD [address] [place] [address] 02/24/2025 9:30 AM EST Office Visit Adult Medicine [address] [phone] Paula Garnica PA [address] [place] [address] 03/18/2025 8:30 AM EST Office Visit Orthopedic Surgery - [place] [address] [phone] Duke Dunn DPM 175 [facility] [address] [place] [address] 04/01/2025 10:00 AM EST Office Visit Gastroenterology - [address] [facility] [address] [place] [address] [place] [phone] Alivia Dominguez, DONN [address] [address] 05/04/2025 10:00 AM EST Office Visit Endocrinology [address] [phone] Myrna Hussein MD [address] [place] [address] 09/22/2025 9:30 AM EDT Office Visit Pulmonology [facility] 175 [facility] [address] [place] [phone] Pretty Le MD [address] [place] [phone] 10/01/2025 11:30 AM EDT Office Visit Adult Medicine [address] [phone] Ora Sweeney MD [address] [place] [address] 01/20/2026 9:30 AM EST Office Visit [facility] - [place] [address] [place] [phone] Unruly Ferrera MD [address] [place] [phone] documented as of this encounter Visit Diagnoses Not on filedocumented in this encounter Additional Health Concerns Infection Onset Date Last Indicated Resolved Time Respiratory Rule-Out 04/25/2024 04/25/2024 025 4:13 PM EST COVID-19 Rule-Out 04/25/2024 04/25/2024 04/25/2024 4:13 PM EST Respiratory Rule-Out 11/27/2024 11/27/2024 025 10:28 AM EDT COVID-19 Rule-Out 11/27/2024 11/27/2024 11/27/2024 10:28 AM EDT Enterovirus 11/27/2024 11/27/2024 12/21/2024 7:04 PM EDT Rhinovirus 11/27/2024 11/27/2024 12/21/2024 7:04 PM EDT Respiratory Rule-Out 01/09/2025 01/09/2025 11:21 PM EDT COVID-19 Rule-Out 01/09/2025 01/09/2025 01/09/2025 11:21 PM EDT documented as of this encounter Care Teams Medical Technicians Relationship Specialty Start Date End Date Ora Sweeney MD [address] [place] [phone] PCP - General 10/11/21 01/08/24 documented as of this encounter
--- OUTSIDE RECORDS SUMMARY | 2025-01-28 10:00 | XMS_ITS | Encounter Summary ---
Author Organization [facility] Address [address] [place] [address] Care Team Providers Care Canal Boat Operator Name Role Phone Ora Sweeney MD Primary Care Prov ider Reason for Visit * Reason Comments Follow-up Dm Follow up Encounter Details Date Type Department Care Team (Late st Contact Info) Description 01/28/2025 10:00 AM EST Office Visit Endocrinology - [address] [phone] Myrna Hussein MD [address] [place] [phone] Hypothyroidism, unspecified type (Primary Dx); Diabetes mellitus type 2, controlled, without complications (CMS/HCC V24, CMS/HCC V28); Type 2 diabetes mellitus with diabetic polyneuropathy, with long-term current use of insulin (CMS/HCC V24, CMS/HCC V28) Social History Tobacco [...] your loved ones. 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 Answer Date of Assessment Author No 11/26/2024 10:06 PM EDT Sheila Hart RN * Are you blind or do you have serious difficulty seeing, even when wearing glasses? Answer Date of Assessment Author No 11/26/2024 10:06 PM EDT Sheila Hart RN * Do you have serious difficulty walking or climbing stairs? Answer Date of Assessment Author No 11/26/2024 10:06 PM EDT Sheila Hart RN * Do you have serious difficulty dressing or bathing? Answer Date of Assessment Author No 11/26/2024 10:06 PM EDT Sheila Hart RN * Because of a physical, mental, or emotional condition, do you have serious difficulty doing errandsalone such as visiting the doctor? Answer Date of Assessment Author No 11/26/2024 10:06 PM EDT Sheila Hart RN documented as of this encounter Mental Status * Because of a physical, mental, or emotional condition, do you have serious difficulty concentrating, remembering, or making decisions? (5 years old or older) Answer Entry Date Author No 11/26/2024 10:06 PM EDT Sheila Hart RN documented in this encounter Ordered Prescriptions Prescription Sig Dispense Quantity Refills Last Filled Start Date End Date Neurontin 600 mg tabletIndications:D iabetes mellitus type 2, controlled, without complications (CMS/HCC V24, CMS/HCC V28) Take 1 tablet (600 mg total) by mouth 1 (one) time each day. 30 each 2 01/28/2025 6 LevoxyL 137 mcg tablet Take 1 tablet (137 mcg total) by mouth 1 (one) time each day before breakfast. 90 tablet 1 01/28/2025 6 documented in this encounter Progress Notes * Myrna Hussein MD - 01/28/2025 10:00 AM EST Please start taking gabapentin 600m nightly for neuropathy. Start taking levoxyl 137mcg daily. Have blood work done. I will reach out to you with the results. * Myrna Hussein MD - 01/28/2025 10:00 AM EST CHIEF COMPLAINT: Follow-up (Dm Follow up) IDENTIFIER: Ana Luisa House is a 64 y.o. old female. HPI: 64-year-old female with past medical history of type 2 diabetes mellitus complicated by neuropathy,hypothyroidism, primary hyperparathyroidism s/p parathyroidectomy in June 2024, hypertension, hyperlipidemia, obesity, pyelonephritis presents to the clinic today for follow-up. Patient was last seen in the clinic in December [address] Pineda. This is my first time evaluating her. Diagnosed 3-4 years ago Current DM medications: none Previous DM medications: Trulicity (discontinued due to GI side effects) HbA1c: Lab Results Component Value Date HGBA1C 7.8 (H) 10/02/2024 Poc blood glucose today: Lab Results Component Value Date GLUCOSE 136 (H) 01/14/2025 Blood glucose review: fingersticks 1x daily FBS: 120-145mg/dL PPBS: in the 200s Hypoglycemia: no Diet: carbohydrate restricted. Has no appetite due to having significant issues. Was [facility] from lateDecember to early January 2025 for ureteral obstruction. Last saw eye doctor: summer 2024, no retinoapthy Peripheral neuropathy: yes Nephropathy: yes , on ARB ASCVD: yes , on statin Gastroparesis: no Ulcers/amputations: no Patient is currently on levothyroxine 137 mcg daily. Takes levothyroxine by itself first thing in the morning. No symptoms of hypothyroidism. Last TSH from November 2024 was 0.5 She also has a history of primary hyperparathyroidism. His calcium was 11.6. She had multiple episodes of nephrolithiasis and underwent parathyroidectomy in June 2024. Her last labs from January 2025 showed calcium 9.0, creatinine 0.8 ROS: GENERAL: Negative for malaise, significant weight loss and fever HEENT: No changes in hearing or vision. No nosebleeds or other nasal problems RESPIRATORY: No cough, wheezing or shortness of breath CARDIOVASCULAR: Negative for chest pain, leg swelling and palpitations GI: Negative for abdominal discomfort, changes in bowel habits, blood in stool or black stools : Negative for dysuria, frequency, and incontinence SKIN: No lesions, rash, or itching ENDOCRINE: See HPI NEURO: No persistent headache, fainting, seizures, strokes, TIAs, weakness, numbness or tingling PAST MEDICAL HISTORY: Patient Active Problem List Diagnosis Date Noted Type 2 diabetes mellitus with diabetic polyneuropathy, with long-term current use of insulin ([facility] V24, [facility] V28) 01/28/2025 Acute pyelonephritis 01/11/2025 ESBL (extended spectrum beta-lactamase) producing bacteria infection 12/27/2024 Pyelonephritis 11/26/2024 RBBB 10/27/2024 Anxiety 08/19/2024 Lower extremity edema 08/19/2024 Morbid obesity with BMI of 45.0-49.9, adult ([facility] V24, [facility] V28) 08/19/2024 S/P left rotator cuff repair 03/06/2024 Rotator cuff tear arthropathy of left shoulder 01/14/2024 CTS (carpal tunnel syndrome) 12/16/2023 Hypertension 12/16/2023 Hypothyroid 12/16/2023 Migraines 12/16/2023 Multiple thyroid nodules 12/16/2023 Fatty liver 12/16/2023 Osteoarthritis 12/16/2023 Cervical radiculopathy 04/10/2022 Asthma-chronic obstructive pulmonary disease overlap syndrome ([facility] V24, [facility] V28) 01/30/2022 Diabetes mellitus ([facility] V24, [facility] V28) 01/30/2022 Seasonal allergic conjunctivitis 01/30/2022 History of severe acute respiratory syndrome coronavirus 2 (SARS-CoV-2) disease 01/30/2022 Palpitations 11/25/2021 Chest pain 11/21/2021 HLD (hyperlipidemia) 11/21/2021 Mild concentric left ventricular hypertrophy 08/23/2021 Pulmonary eosinophilia ([facility] V24) 07/14/2021 Hyperparathyroidism ([facility] V24) 03/09/2021 Diabetes mellitus type 2, controlled, without complications ([facility] V24, [facility] V28) 02/16/2021 Anxiety and depression 06/14/2020 Asthma, moderate persistent 05/10/2020 Vitamin D deficiency 04/17/2019 Knee pain 01/20/2018 VIRGIE (obstructive sleep apnea) 03/06/2017 Pilar cyst 09/07/2016 Colon polyps 02/06/2016 Gastroesophageal reflux disease without esophagitis 08/30/2015 Nonalcoholic fatty liver disease 04/12/2015 Seasonal allergies 08/18/2013 Urge incontinence 08/23/2012 SOCIAL HISTORY: Social History Tobacco Use Smoking status: Never Passive exposure: Never Smokeless tobacco: Never Substance Use Topics Alcohol use: No FAMILY HISTORY: Family Status Relation Name Status Aunt maternal x 1 Mother Ester Bowman Alive Father Paco House Alive MGM MGF Aunt maternal x 6 PGF Sister x 2 Antionette Alive Brother x 2 Alive Mother's kim 1st cousin Alive Mother's kim 1st cousin PGM Brother Paco R (Not Specified) No partnership data on file Family History[1] ACTIVE MEDICATIONS: Medications Taking[2] ALLERGIES: Bee pollen, Cefadroxil, Methylprednisolone, Monosodium glutamate, Other, Penicillins, Animal dander, Banana, Cat's claw, Chocolate, Chocolate flavor, Dog dander, House dust mite, Lactose, Latex, Levonorgestrel-ethinyl estrad, Milk containing products (dairy), Mold, Nut - unspecified, Oxycodone, Rabbit epithelium allergenic extract, and Tree nuts PHYSICAL EXAM: Blood pressure 119/74, pulse 83, weight 114 kg (251 lb 12.8 oz). Body mass index is 44.62 kg/m??. GENERAL: Alert and oriented, in no acute distress. Well-nourished and well-hydrated. HEAD/NECK: Normocephalic and atraumatic. EYES: Pupils equal, round, and reactive to light (PERRLA). Extraocular movements intact. Conjunctivae clear. LUNGS: Lungs clear to auscultation bilaterally. No wheezes, rales, or rhonchi. CARDIOVASCULAR: Regular rate and rhythm. Normal S1 and S2 sounds. No murmurs or gallops. ABDOMEN: Soft, non-tender, and non-distended. Bowel sounds are active and normal. EXTREMITIES: No edema or deformities. Full range of motion in all joints. FOOT: Sensory exam of the foot is normal , tested with the monofilament. 2+ dorsalis pedis pulses, no lesions or ulcers. NEUROLOGICAL: Alert and oriented. Grossly nonfocal SKIN: Skin is warm, dry, and intact. LABS: Lab Results Component Value Date HGBA1C 7.8 (H) 10/02/2024 CHOL 163 10/02/2024 LDLCALC 93 10/02/2024 HDL 36 (L) 10/02/2024 TRIG 171 (H) 10/02/2024 CREATUR 52.0 10/02/2024 MICROALBUR 23.2 10/02/2024 MICROALBCREA 45 (H) 10/02/2024 Lab Results Component Value Date GLUCOSE 136 (H) 01/14/2025 IMPRESSION: 1. Hypothyroidism, unspecified type 2. Diabetes mellitus type 2, controlled, without complications ([facility] V24, [facility] V28) 3. Type 2 diabetes mellitus with diabetic polyneuropathy, with long-term current use of insulin (CMS/[facility] V24, [facility] V28) PLAN: Regarding patient's hypothyroidism, her labs in November 2024 showed TSH 0.5. She reports that she lost weight when she was in the hospital. I will obtain repeat TFTs today. She was also found to be lactose intolerant and is requesting to be switched to a lactose-free preparation of levothyroxine. Will switch to brand-name Levoxyl. Regarding patient's type 2 diabetes mellitus, she is currently not on any medications. It is diet controlled. Her fasting blood sugars appear to be at range. She only intermittently checks her postprandial blood sugars and has noted them to be in the 200s on some occasions. Her last A1c was 7.8% in September 2024. Will obtain repeat A1c today. If her A1c continues to remain over 7, she would need re initiation of pharmacotherapy for her diabetes. She is also complaining of significant neuropathy, will start her on gabapentin 600 mg nightly. For her nephropathy, patient is on losartan. Follow-up in 3 months Orders Placed This Encounter Procedures Thyroid stimulating hormone Standing Status: Future Expiration Date: 01/28/2026 Release to patient: Immediate [1] Thyroxine free Standing Status: Future Expiration Date: 01/28/2026 Release to patient: Immediate [1] Hemoglobin A1c Standing Status: Future Expiration Date: 01/28/2026 Release to patient: Immediate [1] ADDITIONAL ORDERS: None Myrna Hussein MD on 01/28/2025 at 10:36 AM EST Endocrinology, Diabetes, and Metabolism [1] Family History Problem Relation Name Age of Onset Breast cancer Aunt maternal x 1 50 Diabetes Mother Ester Bowman with neuropathy, OA, Uterine cancer Mother Ester Bowman 31 Colon cancer Mother Ester Rothmana 59 Ovarian cancer Mother Ester Rothmana 31 Arthritis Mother Ester Rothmana Cancer Mother Ester Bowman Mental illness Mother Ester Bowman Coronary artery disease Father Paco G House [place] age 68, HTN, Diabetes, cataract, glaucoma Arthritis Father Paco G House Diabetes Father Paco G House Mental illness Father Paco G House Stroke Father Paco G House Ovarian cancer Maternal Grandmother 50 uterine cancer same age Emphysema Maternal Grandfather 97 Ovarian cancer Aunt maternal x 6 50 6 maternal aunts also with ov, uterine ca Lung cancer Paternal Grandfather 75 Colon polyps Sister x 2 Antionette 50 glaucoma, diabetes Diabetes Sister x 2 Antionette Glaucoma Brother x 2 Lymphoma Mother's side 1st cousin Lung cancer Mother's side 1st cousin Diabetes Brother Paco R [2] Outpatient Medications Marked as Taking for the 01/28/25 encounter (Office Visit) with Myrna Hussein MD Medication Sig Dispense Refill albuterol HFA (PROAIR HFA ; PROVENTIL HFA ; VENTOLIN HFA) 90 mcg/actuation inhaler 2 puffs every 4 (four) hours if needed. albuterol HFA (PROAIR HFA ; PROVENTIL HFA ; VENTOLIN HFA) 90 mcg/actuation inhaler Inhale 2 puffs by mouth every 6 (six) hours if needed for wheezing or shortness of breath. 3 each 3 amLODIPine (NORVASC) 10 mg tablet TAKE 1 TABLET BY MOUTH EVERY DAY 90 tablet 3 atorvastatin (LIPITOR) 20 mg tablet TAKE 1 TABLET BY MOUTH EVERY DAY 90 tablet 3 azelastine HCl (ASTELIN NASL) 2 drops by nasal (home admin) route if needed. cholecalciferol (VITAMIN D-3) 125 mcg (5,000 unit) capsule Take 1 capsule (5,000 Units total) by mouth 1 (one) time each day. docusate sodium (COLACE) 100 mg capsule Take 1 capsule (100 mg total) by mouth 2 (two) times a day.180 capsule 1 famotidine (PEPCID) 20 mg tablet TAKE 1 TABLET (20 MG) BY MOUTH TWICE A DAY NEEDED FOR [id number] tablet 0 fexofenadine (CRISTINA) 180 mg tablet Take 1 tablet by mouth daily. vyxskytxksn-yhwwtyjiesmg-lxdaychdly (Trelegy Ellipta) 100-62.5-25 mcg inhaler Inhale 1 puff (100 mcg total) by mouth 1 (one) time each day. Rinse mouth with water after use to reduce aftertaste and incidence of candidiasis. Do not swallow. 3 each 3 losartan (COZAAR) 100 mg tablet TAKE 1 TABLET BY MOUTH EVERY DAY 90 tablet 1 methenamine hippurate (HIPREX) 1 gram tablet Take 1 tablet (1 g total) by mouth 2 (two) times a daywith meals. montelukast (SINGULAIR) 10 mg tablet TAKE 1 TABLET BY MOUTH EVERYDAY AT BEDTIME 90 tablet 1 ondansetron (ZOFRAN) 8 mg tablet Take 1 tablet (8 mg total) by mouth every 8 (eight) hours if needed. riboflavin (VITAMIN B2) 100 mg tablet Take 1 tablet (100 mg total) by mouth 1 (one) time each day. senna 8.6 mg tablet TAKE 1 TABLET (8.6 MG TOTAL) BY MOUTH AT BEDTIME NEEDED FOR CONSTIPATION. 90tablet 0 [DISCONTINUED] levothyroxine (SYNTHROID, LEVOTHROID) 137 mcg tablet TAKE 1 TABLET BY MOUTH EVERY DAY 90 tablet 1 documented in this encounter Plan of Treatment Upcoming Encounters Date Type Department Care Team (Late st Contact Info) Description 02/02/2025 1:30 PM EST Office Visit Adult Medicine [address] [phone] Ora Sweeney MD [address] [place] [address] 02/24/2025 9:30 AM EST Office Visit Adult [address] [phone] Paula Garnica PA [address] [place] [address] 03/18/2025 8:30 AM EST Office Visit Orthopedic Surgery [facility] [address] [phone] Duke Dunn, DPM [address] [address] 04/01/2025 10:00 AM EST Office Visit Gastroenterology - [address] [phone] Alivia Dominguez, DONN [address] [address] 05/04/2025 10:00 AM EST Office Visit Endocrinology [address] [phone] Myrna Hussein MD [address] [place] [address] 09/22/2025 9:30 AM EDT Office Visit Pulmonology - [place] 175 [facility] [address] [place] [phone] Pretty Le MD [address] [place] [phone] 10/01/2025 11:30 AM EDT Office Visit Adult Medicine [facility] [address] [place], [place] [phone] Ora Sweeney MD [address] [place] [address] 01/20/2026 9:30 AM EST Office Visit Breast Care Center [facility] [address] [place] [phone] Unruly Ferrera MD [address] [place] [phone] documented as of this encounter Results * (ABNORMAL) Hemoglobin A1c (01/28/2025 11:03 AM EST) Hemoglobin A1C 7.1(H) <6.5 % LAB CHEMISTRY METHOD 01/28/2025 3:01 PM EST [facility] Mean Bld Glu Estim. 157 mg/dL LAB CHEMISTRY METHOD 01/28/2025 3:01 PM EST [facility] Blood Venous blood specimen / Unknown Venipuncture / Unknown 01/28/2025 11:03 AM EST 01/28/2025 11:03 AM EST us Myrna Hussein MD LAB BLOOD ORDERABLES Final Result [facility] [address] [place] [address], * Thyroxine free (01/28/2025 11:03 AM EST) Free T4 1.04 0.70 - 1.80 ng/dL 01/28/2025 4:39 PM EST [facility] Blood Venous blood specimen / Unknown Venipuncture / Unknown 01/28/2025 11:03 AM EST 01/28/2025 11:03 AM EST Myrna Hussein MD LAB BLOOD ORDERABLES Final Result Performing Organization Address [facility]/ZIP Co de Phone Number [facility] [address] [place] [address], [place] [phone] * (ABNORMAL) Thyroid stimulating hormone (01/28/2025 11:03 AM EST) TSH 8.68(H) 0.40 - 4.00 mcIU/mL 01/28/2025 4:39 PM EST [facility] Blood Venous blood specimen / Unknown Venipuncture / Unknown 01/28/2025 11:03 AM EST 01/28/2025 11:03 AM EST Myrna Hussein MD LAB BLOOD ORDERABLES Final Result Performing Organization Address City/[facility]/ZIP Co de Phone Number [facility] [address] [place] [address], [place] [phone] documented in this encounter Visit Diagnoses Diagnosis Hypothyroidism, unspecified type- Primary Diabetes mellitus type 2, controlled, without complications (CMS/HCC V24, [facility] V28) Type 2 diabetes mellitus with diabetic polyneuropathy, with long-term current use of insulin (CMS/HCC V24, [facility] V28) documented in this encounter Discontinued Medications Medication Sig Discontinue Reason Start Date End Da te levothyroxine (SYNTHROID, LEVOTHROID) 137 mcg tabletIndications:Atroph y of thyroid (acquired) TAKE 1 TABLET BY MOUTH EVERY DAY 11/12/2024 01/28/2025 documented as of this encounter Additional Health Concerns Assessment Noted Time PHQ-9 Depression Total Score: 1 08/21/19 25 8:45 AM EDT documented as of this encounter Care Teams Canal Boat Operator Relationship Specialty Start Date End Date Ora Sweeney MD [address] [place] [phone] PCP - General Internal Medicine 01/09/24 documented as of this encounter
--- OUTSIDE RECORDS SUMMARY | 2025-01-28 10:55 | XMS_ITS | Encounter Summary ---
Author Organization [facility] Address [address] [place] [address] Care Team Providers Care Brass Cleaner Name Role Phone Ora Sweeney MD Primary Care Prov ider Encounter Details Date Type Department Care Team (Late st Contact Info) Description 01/28/2025 10:55 AM EST Lab Draw Station [address] [phone] Diabetes mellitus type 2, controlled, without complications (CMS/HCC V24, CMS/HCC V28); Hypothyroidism, unspecified type; Epigastric abdominal pain; Gastroesophageal reflux disease without esophagitis; Leukocytosis, unspecified type Social History Tobacco Use Types [...] Record ed Within the last 3 months, nikolas lozano many times did you visit the emergency [...] care for your loved ones. 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 Not on file Not on file Not on file documented as of this encounter Functional Status * Are you [...] Sheila Hart RN documented in this encounter Plan of Treatment Upcoming Encounters Date Type Department Care Team (Late st Contact Info) Description 02/02/2025 1:30 PM EST Office Visit Adult Medicine [address] [phone] Ora Sweeney MD [address] [place] [address] 02/24/2025 9:30 AM EST Office Visit Adult Medicine [address] [phone] Paula Garnica PA [address] [place], [place] 03/18/2025 8:30 AM EST Office Visit Orthopedic Surgery - [place] [address] [facility] [address] [place] [phone] Duke Dunn, DPM 175 [facility] [address] [place] [address] 04/01/2025 10:00 AM EST Office Visit Gastroenterology - [address] [facility] [address] [place] [phone] Alivia Dominguez, DONN 299 [facility] [address] [place] [address] 05/04/2025 10:00 AM EST Office Visit Endocrinology [facility] [address] [place], [place] [phone] Myrna Hussein MD [address] [place] [address] 09/22/2025 9:30 AM EDT Office Visit Pulmonology - [place] 175 [facility] 200 [place] [phone] Pretty Le MD 230 [place] [phone] 10/01/2025 11:30 AM EDT Office Visit Adult Medicine [facility] [address] [place] [address] Ora Sweeney MD [address] [place] [address] 01/20/2026 9:30 AM EST Office Visit [facility] - [place] [address] [place] [phone] Unruly Ferrera MD [address] [place] [phone] documented as of this encounter Procedures Procedure Name Priority Date/Time Associated Diagnosis Comments CBC WITH AUTO DIFFERENTIAL Routine 01/28/2025 11:03 AM EST Epigastric abdominal pain Gastroesophageal reflux disease without esophagitis Leukocytosis, unspecified type CBC AND DIFFERENTIAL Routine 01/28/2025 11:03 AM EST Epigastric abdominal pain Gastroesophageal reflux disease without esophagitis Leukocytosis, unspecified type THYROID STIMULATING HORMONE Routine 01/28/2025 11:03 AM EST Hypothyroidism, unspecified type THYROXINE FREE Routine 01/28/2025 11:03 AM EST Hypothyroidism, unspecified type HEMOGLOBIN A1C Routine 01/28/2025 11:03 AM EST Diabetes mellitus type 2, controlled, without complications (CMS/[facility] V24, CMS/[facility]ER[facility] V28) documented in this encounter Results * (ABNORMAL) CBC auto differential (01/28/2025 11:03 AM EST) WBC 7.2 4.8 - 10.8 K/mcL LAB HEMETOLOGY METHOD 01/28/2025 12:34 PM [facility] RBC 4.40 3.80 - 4.80 M/mcL LAB HEMETOLOGY METHOD 01/28/2025 12:34 PM [facility] Hemoglobin 11.0(L) 11.5 - 16.0 g/dL LAB HEMETOLOGY METHOD 01/28/2025 12:34 PM [facility] Hematocrit 35.2 35.0 - 47.0 % LAB HEMETOLOGY METHOD 01/28/2025 12:34 PM [facility] MCV 80.4 79.0 - 98.0 FL LAB HEMETOLOGY METHOD 01/28/2025 12:34 PM [facility] MCH 25.1(L) 27.0 - 32.0 pcg LAB HEMETOLOGY METHOD 01/28/2025 12:34 PM [facility] MCHC 31.3(L) 32.0 - 37.0 g/dL LAB HEMETOLOGY METHOD 01/28/2025 12:34 PM [facility] RDW 15.8(H) 11.0 - 15.0 % LAB HEMETOLOGY METHOD 01/28/2025 12:34 PM [facility] Platelets 284 130 - 400 K/mcL LAB HEMETOLOGY METHOD 01/28/2025 12:34 PM [facility] MPV 11.8(H) 7.0 - 11.0 FL LAB HEMETOLOGY METHOD 01/28/2025 12:34 PM [facility] NRBC 0.0 <1.0 % LAB HEMETOLOGY METHOD 01/28/2025 12:34 PM [facility] NRBC Absolute 0.00 <0.10 K/mcL LAB HEMETOLOGY METHOD 01/28/2025 12:34 PM [facility] Neutrophils Relative 63.5 % LAB HEMETOLOGY METHOD 01/28/2025 12:34 PM [facility] Lymphocytes Relative 22.8 % LAB HEMETOLOGY METHOD 01/28/2025 12:34 PM [facility] Monocytes Relative 7.8 % LAB HEMETOLOGY METHOD 01/28/2025 12:34 PM [facility] Eosinophils Relative 4.5 % LAB HEMETOLOGY METHOD 01/28/2025 12:34 PM [facility] Basophils Relative 0.7 % LAB HEMETOLOGY METHOD 01/28/2025 12:34 PM [facility] Immature Granulocytes Relative 0.7 % LAB HEMETOLOGY METHOD 01/28/2025 12:34 PM [facility] Neutrophils Absolute 4.55 1.50 - 7.00 K/mcL LAB HEMETOLOGY METHOD 01/28/2025 12:34 PM EST [facility] Lymphocytes Absolute 1.63 1.00 - 5.00 [facility] HEMETOLOGY METHOD 01/28/2025 12:34 PM EST [facility] Monocytes Absolute 0.56 0.20 - 1.00 [facility] HEMETOLOGY METHOD 01/28/2025 12:34 PM EST [facility] Eosinophils Absolute 0.32 0.00 - 0.50 [facility] HEMETOLOGY METHOD 01/28/2025 12:34 PM EST [facility] Basophils Absolute 0.05 0.00 - 0.20 [facility] HEMETOLOGY METHOD 01/28/2025 12:34 PM EST [facility] Immature Granulocytes Absolute 0.05(H) 0.00 - 0.03 [facility] HEMETOLOGY METHOD 01/28/2025 12:34 PM [facility] Blood Venous blood specimen / Unknown Venipuncture / Unknown 01/28/2025 11:03 AM EST 01/28/2025 11:03 AM EST us Sonal NOVAK LAB BLOOD ORDERABLES Final Resul t [facility] [address] [place] [address], * (ABNORMAL) Thyroid stimulating hormone (01/28/2025 11:03 AM EST) TSH 8.68(H) 0.40 - 4.00 mcIU/mL 01/28/2025 4:39 PM EST [facility] Blood Venous blood specimen / Unknown Venipuncture / Unknown 01/28/2025 11:03 AM EST 01/28/2025 11:03 AM EST us Myrna Hussein MD LAB BLOOD ORDERABLES Final Result Performing Organization Address [facility]/ZIP Co de Phone Number [facility] [address] [place] [address], [place] [phone] * Thyroxine free (01/28/2025 11:03 AM EST) Free T4 1.04 0.70 - 1.80 ng/dL 01/28/2025 4:39 PM EST [facility] Blood Venous blood specimen / Unknown Venipuncture / Unknown 01/28/2025 11:03 AM EST 01/28/2025 11:03 AM EST Myrna Hussein MD LAB BLOOD ORDERABLES Final Result Performing Organization Address [facility] Co de Phone Number [facility] [address] [place] [address], [place] [phone] * (ABNORMAL) Hemoglobin A1c (01/28/2025 11:03 AM EST) [facility] Hemoglobin A1C 7.1(H) <6.5 % LAB CHEMISTRY METHOD 01/28/2025 3:01 PM EST [facility] Mean Bld Glu Estim. 157 mg/dL LAB CHEMISTRY METHOD 01/28/2025 3:01 PM EST [facility] Blood Venous blood specimen / Unknown Venipuncture / Unknown 01/28/2025 11:03 AM EST 01/28/2025 11:03 AM EST Myrna Hussein MD LAB BLOOD ORDERABLES Final Result Performing Organization Address [facility]/ZIP Co de Phone Number [facility] [address] [place] [address], [place] [phone] documented in this encounter Visit Diagnoses Diagnosis Diabetes mellitus type 2, controlled, without complications (CMS/HCC V24, CMS/HCC V28) Hypothyroidism, unspecified type Epigastric abdominal pain Abdominal pain, epigastric Gastroesophageal reflux disease without esophagitis Esophageal reflux Leukocytosis, unspecified type documented in this encounter Additional Health Concerns Assessment Noted Time PHQ-9 Depression Total Score: 1 08/21/19 25 8:45 AM EDT documented as of this encounter Care Teams Brass Cleaner Relationship Specialty Start Date End Date Ora Sweeney MD [address] [place] [phone] PCP - General Internal Medicine 01/09/24 documented as of this encounter
[2025-01-30 09:33] VITALS: BP 138/76; PULSE 81; O2SAT 98; BMI 45.0
--- NOTE | 2025-01-30 09:33 | MHC.OFFVIS ---
Vital Signs 01/30/25 09:33 Height 5 ft 3 in Weight 254 lb 4 oz BMI 45.0 BP 138/76 Blood Pressure Location Rt brachial Position Sitting Pulse 81 Pulse Source Pulse Oximeter Pulse Oximetry (%) 98 Oxygen Delivery Method Room Air Intake Visit Reasons: 6m follow up Intake Note: Patient presents follow up VIRGIE/Migraine. Compliance in chart(82/90days, >=4hrs-90%, Average Usage- 8hr 5min, Pressure-10cm, Med leaks-0.0, AHI-0.7). Migraines have been better. Medication subsudies migraines. Takes awhile to go away Accompanied by: Daughter Allergies latex Allergy (Severe, Verified 01/30/25 09:37) Clark skin animal dander Allergy (Unknown, Verified 01/30/25 09:37) Unknown Chocolate Allergy (Unknown, Verified 01/30/25 09:37) Swelling methylprednisolone Allergy (Unknown, Verified 01/30/25 09:37) Swelling mold Allergy (Unknown, Verified 01/30/25 09:37) Unknown nut - unspecified Allergy (Unknown, Verified 01/30/25 09:37) Swelling oxycodone Allergy (Unknown, Verified 01/30/25 09:37) mood change cefadroxil (From Duricef) Allergy (Verified 01/30/25 09:37) Unknown Penicillins Allergy (Verified 01/30/25 09:37) Unknown HPI Comments Details: 64 year old female with h/o migraines presents for f/u VIRGIE. Daughter helps with history today. VIRGIE Compliance data is reviewed with pt 10/2024 to 01/2025 total use is 82/90 days and > 4hours is 90% Avg use is 8 hours and 5 min. press [id number] and med leaks 0.0 AHI is 0.7 Interval Medical Hx: H/o kidney stones, removed 3mm, with stent placement at [facility] July 09, 2024. l.ureter is stented and is blocked she is due to undergo surgery with [facility] next week. 02/01/2025 Sincer her last episode of UTI, she became delirius for a few seconds was sitting on the toilet and asking for help, her daughter responded to assist and she could not remember what happened. She sleeps well with her cpap, pressures and temp are good, her mask does not leak. Vision is good, she has glaucoma, managed with opthamologist in [facility]. She is having 1-2 headaches per week, lasting 1-2 hours, starts with sharp, migrating frontal to occipital, pulling sensation, right side, with head under water sensation and she tilts the head forward then it dulls the sharp sensation. She has vertigo while sleeping and continues to have fragmented sleep while laying flat.She takes 50mg of sumatriptan and then 2 hours later will take another 50mg of Sumatriptan and this lessens the intensity. Her prodrome to migraine with aura: Bilaterally vision loss with or without the onset of headaches, photophobia/phonophobia, flashes of light, floaters, vertigo, nausea, vomiting, lasting seconds to minutes.Bilateral pain with chewing and drinking, grinds her teeth.using road crossing guard now and improved. Cognitive decline, she continues to have processing and speech delays especially with word finding recall, forgets her keys, and needs instructions repeatedly for tasks, gets lost and loses her concentration easily. Her A1c continues to be elevated, sees a drink box mechanic, post parathyroidectomy May 2024. L/R inferior lobes, ca. still elevated, on calcium supplements. [facility] Medical History Kidney stone on left side Migraines Anxiety Depression Obstructive sleep apnea on CPAP Transient visual loss Cognitive and behavioral changes Loss of vision Paroxysmal hemicrania Chronic migraine with aura Constipation Insomnia DJD (degenerative joint disease) Hypothyroidism Stress incontinence GERD (gastroesophageal reflux disease) Hyperlipidemia Sleep apnea Asthma Hypertension Surgical History S/P removal of parathyroid gland History of delivery History of rotator cuff surgery Morbid obesity History of bladder suspension procedure Hx of hernia repair History of mandibular surgery Family History Mother Alzheimer disease Pulmonary emphysema Diabetes Asthma Father Diabetes Hypertension Pacemaker Sister Diabetes Sister Diabetes Brother Hypertension Brother No problems noted. Daughter Asthma Social History Alcohol intake: never Patient Tobacco Use Status: Never used Tobacco Advance Directives Date on File: 12/15/19 Physical Exam Vital Signs: Last Vital Signs Pulse 81 01/30/25 09:33 BP 138/76 01/30/25 09:33 Pulse Ox 98 01/30/25 09:33 Oxygen Delivery Method Room Air 01/30/25 09:33 BMI result Body Mass Index 45.0 Const General: cooperative, comfortable and no acute distress Nutritional Appearance: obese (BMI 49.5) Orientation/consciousness: patient oriented x3 HEENT Head: Yes other Ears: other Throat: Yes other ([place] Score of 4) Eyes Pupils: Equal, round and reactive pupils present Neck Neck: Yes other (Limited ROM on EXT/Flexion, pain on Rotation to the R/L.) Resp Effort & Inspection: normal respiratory effort and able to speak in complete sentences Neuro General: patient oriented x3 Cranial nerves: Yes CN's II-XII intact bilaterally, Yes Facial sensation intact/muscles of mastication intact, Yes Equal, round and reactive pupils present, Yes Normal accommodation reflex present, Yes Bilaterally intact EOM present, Yes Nystagmus not present, Yes Normal facial strength present, Yes Midline tongue present, Yes Ability to bilaterally rotate head present (LIMITED ROM L/R and flexion and extension) and Yes Ability to bilaterally elevate shoulders present (Pain on shrug L. shoulder) Cognition (Neuro): normal cognition Gait exam (Neuro): Wide-based gait present Motor exam (neuro): Abnormal motor strength present (3/5) Psych Appearance: grossly normal Speech and movement: Normal speech and movement present Affect: normal affect Attitude: cooperative Results Reviewed Results Reviewed: VIRGIE Compliance Report reviewed with pt. Assessment & Plan Assessment & Plan (1) Hx of migraines: Code(s): Z86.69 - Personal history of other diseases of the nervous system and sense organs Category: Medical (2) Cervicalgia: Comment: Botox? Code(s): M54.2 - Cervicalgia Category: Medical (3) Cervicalgia: Comment: Botox? Code(s): M54.2 - Cervicalgia Category: Medical (4) VIRGIE (obstructive sleep apnea): Comment: compliance not available, rHC?, my air gina, did not work in clinic. Code(s): G47.33 - Obstructive sleep apnea (adult) (pediatric) Category: Medical (5) Excessive daytime sleepiness: Code(s): G47.19 - Other hypersomnia Category: Medical (6) Falls frequently: Code(s): R29.6 - Repeated falls Category: Medical (7) Gait difficulty: Code(s): R26.9 - Unspecified abnormalities of gait and mobility Category: Medical Plan VIRGIE reviewed with pt, she is compliant on therapy and washes her mask, rinses hoses, changes filters, fills reservoir with water. Migraines acute onset prevention therapy: Migraines have improved. Continue the 50mg Sumatriptan to 100mg sumatriptan succinate PO at onset of headache. take 2 tab of 50mg at onset of headache; if no relief may repeat 2 tab after at least 2 hrs; max = 4 tabs/24 hr. Mood stop venlafaxine as it is not effective for her mood irritability. Improve sleep and sleep hygiene and compliance emphasized. Start Magnesium 400mg po daily at bedtime. Labs: APO E/4 Gene testing Alzheimers r/o demntia as she has +f/h. and r/o excessive daytime fatigue. Weight management for good blood pressure control with diet and medical management. She is on Trulicity 1.5mg managed by Dr. Pineda, Water Softener Installer Cervicalgia - Botox continue PT for neck pain on ROM limited L/R, and Flexion / Extension. PT for gait difficulty with vertigo? due to T2DM?, blood pressure changes? Glaucoma? fallls frequently. 3 months f/u will do a MMSE/ MOCA to evaluate STM loss. Notes from [facility] requested today. Patient Instructions: Sleep Hygiene provided: set a scheduled bedtime and wake time to help regulate the circadian rhythm and balance the release of pituitary hormones. Sleep in a dark room, temperatures below 68 degrees, and no devices n bed. Limit caffeinated products 6 hours prior to bed, and limit fluids 2-4 hours prior to bed. Gentle night yoga, diffusing essential oils, and playing soft music can be relaxing. Optimize Sleep. Coding Level of Care Code Est Pt Level 4 (61398) Diagnoses Hx of migraines Z86.69 Cervicalgia M54.2 VIRGIE (obstructive sleep apnea) G47.33 Excessive daytime sleepiness G47.19 Falls frequently R29.6 Gait difficulty R26.9
--- OUTSIDE RECORDS SUMMARY | 2025-01-30 09:49 | XMS_ITS | Continuity of Care Document ---
Author Name [facility], Medical Address [address] [place] [id number] Organization Unknown Address [address] [place] [id number] Medications No known medications Problems No known problems
--- OUTSIDE RECORDS SUMMARY | 2025-01-30 09:49 | XMS_ITS | Encounter Summary ---
Author Organization [facility] Address [address] [place] [address] Care Team Providers Care Superintendent Power Name Role Phone Ora Sweeney MD Primary Care Prov ider Reason for Visit * Reason Onset Date Comments Transitional Care Management 01/15/2025 Encounter Details Date Type Department Care Team ([facility] st Contact Info) Description 01/15/2025 Telephone Adult Medicine [address] [phone] Roxana Nettles RN Social History Tobacco Use Types Packs/Day Years [...] your loved ones. 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 Answer Date of Assessment Author No 11/26/2024 10:06 PM Sheila Kilgore RN * Are you blind or do you have serious difficulty seeing, even when wearing glasses? Answer Date of Assessment Author No 11/26/2024 10:06 PM EDSheila Hanks RN * Do you have serious difficulty walking or climbing stairs? Answer Date of Assessment Author No 11/26/2024 10:06 PM GIOVANNIT Sheila Hart RN * Do you have serious difficulty dressing or bathing? Answer Date of Assessment Author No 11/26/2024 10:06 PM Sheila Kilgore RN * Because of a physical, mental, or emotional condition, do you have serious difficulty doing errandsalone such as visiting the doctor? Answer Date of Assessment Author No 11/26/2024 10:06 PM Sheila Kilgore RN documented as of this encounter Mental Status * Because of a physical, mental, or emotional condition, do you have serious difficulty concentrating, remembering, or making decisions? (5 years old or older) Answer Entry Date Author No 11/26/2024 10:06 PM Sheila Kilgore RN documented in this encounter Progress Notes * Roxana Nettles RN - 01/15/2025 1:12 PM EST Images from the original note were not included. Discharge Date/Disposition: Patient was discharged Home, No Services on 01/13 from [facility] Discharge Diagnoses: Complicated UTI Date of Post Discharge Follow-Up Appointment (Must be within 3-5 days): Patient does have transportation to this appointment In the past 12 months, have you had trouble getting transportation to medical appointments? No If yes, what are the barriers: none Past Medical History: Medical History[1] Medication Review: Current Allergies[2] Reviewed discharge medication list from [facility] Current Medications, including discharge mediations: Your medication list Accurate as of January 15, 2025 11:59 PM. If you have any questions, ask your nurse or doctor. CONTINUE taking these medications Instructions Last Dose Given Next Dose Due albuterol HFA 90 mcg/actuation inhaler Commonly known as: PROAIR HFA ; PROVENTIL HFA ; VENTOLIN HFA 2 puffs every 4 (four) hours if needed. albuterol HFA 90 mcg/actuation inhaler Commonly known as: PROAIR HFA ; PROVENTIL HFA ; VENTOLIN HFA Inhale 2 puffs by mouth every 6 (six) hours if needed for wheezing or shortness of breath. amLODIPine 10 mg tablet Commonly known as: NORVASC TAKE 1 TABLET BY MOUTH EVERY DAY ASTELIN NASL 2 drops by nasal (home admin) route if needed. atorvastatin 20 mg tablet Commonly known as: LIPITOR TAKE 1 TABLET BY MOUTH EVERY DAY cholecalciferol 125 mcg (5,000 unit) capsule Commonly known as: VITAMIN D-3 Take 1 capsule (5,000 Units total) by mouth 1 (one) time each day. docusate sodium 100 mg capsule Commonly known as: COLACE Take 1 capsule (100 mg total) by mouth 2 (two) times a day. ertapenem 1,000 mg in sodium chloride 0.9 % 50 mL IVPB Infuse 1,000 mg into a venous catheter 1 (one) time each day at the same time for 3 doses. famotidine 20 mg tablet Commonly known as: PEPCID Take 1 tablet (20 mg total) by mouth 2 (two) times a day if needed for heartburn. fexofenadine 180 mg tablet Commonly known as: CRISTINA Take 1 tablet by mouth daily. levothyroxine 137 mcg tablet Commonly known as: SYNTHROID, LEVOTHROID TAKE 1 TABLET BY MOUTH EVERY DAY losartan 100 mg tablet Commonly known as: COZAAR TAKE 1 TABLET BY MOUTH EVERY DAY methenamine hippurate 1 gram tablet Commonly known as: HIPREX Take 1 tablet (1 g total) by mouth 2 (two) times a day with meals. montelukast 10 mg tablet Commonly known as: SINGULAIR TAKE 1 TABLET BY MOUTH EVERYDAY AT BEDTIME ondansetron 8 mg tablet Commonly known as: ZOFRAN Take 1 tablet (8 mg total) by mouth every 8 (eight) hours if needed. riboflavin 100 mg tablet Commonly known as: VITAMIN B2 Take 1 tablet (100 mg total) by mouth 1 (one) time each day. senna 8.6 mg tablet Generic drug: senna TAKE 1 TABLET (8.6 MG TOTAL) BY MOUTH AT BEDTIME NEEDED FOR CONSTIPATION. Trelegy Ellipta 100-62.5-25 mcg inhaler Generic drug: dplzrxfoenu-suhrezrpytnc-gjwpbdbwyc Inhale 1 puff (100 mcg total) by mouth 1 (one) time each day. Rinse mouth with water after use to reduce aftertaste and incidence of candidiasis. Do not swallow. Medication Review/Education: Has patient obtained medications: Yes Is patient taking medications as prescribed: Yes Can patient afford medications: Yes Medication list obtained and reviewed with patient: Patient taking medications as prescribed and reports no questions Review with patient/caregiver: Patient Education: Reviewed AVS, patient verbalizes understanding Are you interested in more education? No if yes, no Please identify the resources you would like help with: Patient Declined Resources Community/Home Services: VNA service: None DMEs: none Do you need help from another person or service animal with any daily activities such as bathing, dressing, eating or doing software release manager? No Can you easily and safely move around your home? Yes Symptom Review: TCM 2-day post-discharge outreach call 01/15. Patient engaged. Identified Needs/Gaps in Services no Plan: 1. Patient has follow-up appointments scheduled as above. 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 Anxiety state DX:Anxiety state Asthma DX:Asthma Asthma, moderate persistent 05/10/2020 DX:Asthma, moderate persistent Asthma-chronic obstructive pulmonary disease overlap syndrome ([facility] V24, [facility] V28) 01/30/2022 DX:Asthma-chronic obstructive pulmonary disease overlap syndrome (HCC) Chronic pain disorder Class 3 severe obesity due to excess calories with serious comorbidity and body mass index (BMI) of40.0 to 44.9 in adult ([facility] V24, [facility] V28) 07/15/2019 DX:Class 3 severe obesity due to excess calories with serious comorbidity and body mass index (BMI)of 40.0 to 44.9 in adult ([facility]) COVID-19 DX:COVID-19 CTS (carpal tunnel syndrome) DX:CTS (carpal tunnel syndrome) Depression DX:Depression Depressive disorder DX:Depressive disorder Diabetes mellitus (CMS/HCC V24, [facility] V28) DX:Diabetes mellitus (HCC) Diabetes mellitus type 2, controlled, without complications (CMS/HCC V24, CMS/[facility] V28) 02/16/2021 DX:Diabetes mellitus type 2, controlled, without complications (HCC) Dry skin BILATERAL LEGS/ USES PRESCRIBED CREAMS Family history of colon cancer DX:Family history of colon cancer; COMMENT: mother has colon cancer and ovarian cancer-- seen genetics Fatty liver DX:Fatty liver Gastroesophageal reflux disease without esophagitis 08/30/2015 DX:Gastroesophageal reflux disease without esophagitis Glaucoma Hiatal hernia HLD (hyperlipidemia) 11/21/2021 DX:HLD (hyperlipidemia) Hypertension DX:Hypertension Hypothyroid DX:Hypothyroid; COMMENT: his multinodular goiter, 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 Irregular heart beat R BBB Joint pain Kidney stone on left side 06/2024 Migraines DX:Migraines Mild concentric left ventricular hypertrophy 08/23/2021 DX:Mild concentric left ventricular hypertrophy; COMMENT: Seen on echo study from 08/2021 Morbid obesity with BMI of 40.0-44.9, adult (CMS/HCC V24, CMS/HCC V28) DX:Morbid obesity with BMI of 40.0-44.9, adult ([facility]) Multiple thyroid nodules DX:Multiple thyroid nodules Neuromuscular disorder (CMS/HCC V24, [facility] V28) MULTIPLE SITES Nonalcoholic fatty liver disease 04/12/2015 DX:Nonalcoholic fatty liver disease Obesity with alveolar hypoventilation (CMS/HCC V24, [facility] V28) DX:Obesity with alveolar hypoventilation (HCC) VIRGIE on CPAP DX:VIRGIE on CPAP Osteoarthritis DX:Osteoarthritis/ BILATERAL KNEES Overactive bladder DX:Overactive bladder Pain and swelling of left upper extremity 11/21/2021 DX:Pain and swelling of left upper extremity Pre-diabetes 09/25/2017 DX:Pre-diabetes Seasonal allergies 08/18/2013 DX:Seasonal allergies Shingles DX:Shingles Shortness of breath Sleep apnea DX:Sleep apnea; COMMENT: using cpap machine Stress incontinence DX:Stress incontinence Urinary tract infection Vitamin D deficiency 04/17/2019 DX:Vitamin D deficiency [2] Allergies Allergen Reactions Bee Pollen Shortness of breath Other reaction(s): Not available Cefadroxil Swelling and Shortness of breath Other Reaction(s): difficulty breathing/facial swelling Methylprednisolone Swelling and Shortness of breath Other Reaction(s): edema Monosodium Glutamate Swelling anaphalaxis Other Itching, Rash and Swelling roaches Other Reaction(s): MSG edema Penicillins Shortness of breath and Swelling Other Reaction(s): throat swelling/facial swelling Animal Dander Sneezing Banana Nausea And Vomiting Cat's Claw Runny nose Chocolate Sneezing and allergies Other Reaction(s): snezzing/runny nose Chocolate Flavor Sneezing Other reaction(s): Not available Dog Dander Sneezing House Dust Mite Sneezing Lactose Lactose intolerant Latex Hives Levonorgestrel-Ethinyl Estrad Unknown Other reaction(s): Not available Mold Nut - Unspecified Swelling Almonds Oxycodone GI intolerance Mood change Rabbit Epithelium Allergenic Extract rabbits documented in this encounter Plan of Treatment Upcoming Encounters Date Type Department Care Team (Late st Contact Info) Description 02/02/2025 1:30 PM EST Office Visit Adult Medicine [address] [phone] Ora Sweeney MD [address] [place] [address] 02/24/2025 9:30 AM EST Office Visit Adult Medicine [address] [phone] Paula Garnica PA [address] [place] [address] 03/18/2025 8:30 AM EST Office Visit Orthopedic Surgery - [place] [address] [phone] Duke Dunn, BASIL [address] [address] 04/01/2025 10:00 AM EST Office Visit Gastroenterology - [address] [facility] [address] [facility] [address] [place] [address] Alivia Dominguez, DONN [address] [facility] [address] [place] [address] 05/04/2025 10:00 AM EST Office Visit Endocrinology [facility] [address] [place], [place] [phone] Myrna Hussein MD [address] [place] [address] 09/22/2025 9:30 AM EDT Office Visit Pulmonology [facility] 175 [facility] [address] [place] [phone] Pretty Le MD [address] [place] [phone] 10/01/2025 11:30 AM EDT Office Visit Adult Medicine [facility] [address] [place] [address] Ora Sweeney MD [address] [place] [address] 01/20/2026 9:30 AM EST Office Visit [facility] [place] [address] [place] [phone] Unruly Ferrera MD [address] [place] [phone] documented as of this encounter Visit Diagnoses Not on filedocumented in this encounter Additional Health Concerns Assessment Noted Time PHQ-9 Depression Total Score: 1 08/21/19 25 8:45 AM EDT documented as of this encounter Care Teams Superintendent Power Relationship Specialty Start Date End Date Ora Sweeney MD [address] [place] [address] PCP - General Internal Medicine 01/09/24 documented as of this encounter
--- OUTSIDE RECORDS SUMMARY | 2025-01-30 09:49 | XMS_ITS | Continuity of Care Document ---
Author Name [facility], Medical Address [address] [place] [address] Organization Unknown Address [address] [place], [place] [id number] Medications No known medications Problems No known problems
--- OUTSIDE RECORDS SUMMARY | 2025-01-30 09:49 | XMS_ITS | Encounter Summary ---
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 * Charleen Red MA - 01/20/2025 10:39 AM EST Orders placed on Dr Liset Katz * Axel Lehman - 01/15/2025 11:23 AM EST [facility] - #[id number] received. Please sign and fax to [phone] documented in this encounter Plan of Treatment Upcoming Encounters Date Type Department Care Team (Late st Contact Info) Description 02/02/2025 1:30 PM EST Office Visit Adult Medicine [address] [phone] Ora Sweeney MD [address] [place] [address] 02/24/2025 9:30 AM EST Office Visit Adult Medicine [address] [phone] Paula Garnica PA [address] [place] [address] 03/18/2025 8:30 AM EST Office Visit Orthopedic Surgery - [place] [address] [phone] Duke Dunn, DPJohan [address] [address] 04/01/2025 10:00 AM EST Office Visit Gastroenterology - [address] 299 [facility] [address] [place] [address] Alivia Dominguez, DONN [address] [address] 05/04/2025 10:00 AM EST Office Visit Endocrinology [address] [phone] Myrna Hussein MD [address] [place] [address] 09/22/2025 9:30 AM EDT Office Visit Pulmonology - [place] 175 [facility] [address] [place] [phone] Pretyt Le MD [address] [place] [phone] 10/01/2025 11:30 AM EDT Office Visit Adult Medicine [facility] [address] [place], [place] [phone] Ora Sweeney MD [address] [place] [address] 01/20/2026 9:30 AM EST Office Visit [facility] [address] [place] [phone] Unruly Ferrera MD [address] [place] [phone] documented as of this encounter Visit Diagnoses Not on filedocumented in this encounter Additional Health Concerns Assessment Noted Time PHQ-9 Depression Total Score: 1 08/21/19 25 8:45 AM EDT documented as of this encounter Care Teams Group Work Program Director Relationship Specialty Start Date End Date Ora Sweeney MD [address] [place] [address] PCP - General Internal Medicine 01/09/24 documented as of this encounter
--- OUTSIDE RECORDS SUMMARY | 2025-01-30 09:49 | XMS_ITS | Clinical Summary ---
Author Organization [facility] Address [address] [place] [address] Care Team Providers Care Day Haul Youth Supervisor Name Role Phone Ora Sweeney MD Primary Care Prov ider Allergies Active Allergy Reactions Criticality Noted Date Comments Animal Dander Sneezing 01/16/2024 Banana Nausea And Vomiting,GI intolerance 01/12/2025 Bee Pollen Shortness of breath High 05/03/2023 Other reaction(s): Not available Cat's Claw Runny nose 12/20/2016 Cefadroxil Swelling,Shortness of breath High 07/02/2012 Other Reaction(s): difficulty breathing/facial swelling Chocolate 01/06/2014 Sneezing and allergies Other Reaction(s): snezzing/runny nose Chocolate Flavor Sneezing 05/03/2023 Other reaction(s): Not available Dog Dander Sneezing 04/10/2016 House Dust Mite Sneezing 04/10/2016 Lactose 01/12/2025 Lactose intolerant Latex Hives 06/14/2020 Levonorgestrel-Ethinyl Estrad Unknown 05/03/2023 Other reaction(s): Not available Methylprednisolone Swelling,Shortness of breath High 07/02/2012 Other Reaction(s): edema Milk Containing Products (Dairy) GI intolerance 01/21/2025 Mold 04/10/2016 Monosodium Glutamate Swelling High 06/24/2024 anaphalaxis Nut - Unspecified Swelling 03/18/2013 Almonds Other Itching,Rash,Swelli ng High 10/30/2016 roaches Other Reaction(s): MSG edema Oxycodone GI intolerance 07/11/2017 Mood change Penicillins Shortness of breath,Swelling High 07/02/2012 Other Reaction(s): throat swelling/facial swelling Rabbit Epithelium Allergenic Extract 04/10/2016 rabbits Tree Nuts Swelling 01/21/2025 Almonds Medications albuterol HFA (PROAIR HFA ; PROVENTIL HFA ; VENTOLIN HFA) 90 mcg/actuation inhaler 2 puffs every 4 (four) hours if needed. 09/19/19 24 Active azelastine HCl (ASTELIN NASL) 2 drops by nasal (home admin) route if needed. Active fexofenadine (CRISTINA) 180 mg tablet Take 1 tablet by mouth daily. 11/17/19 21 Active cholecalciferol (VITAMIN D-3) 125 mcg (5,000 unit) capsule Take 1 capsule (5,000 Units total) by mouth 1 (one) time each day. 01/01/20 24 Active atorvastatin (LIPITOR) 20 mg tablet TAKE 1 TABLET BY MOUTH EVERY DAY 90 tablet 3 08/09/19 25 2025 Active amLODIPine (NORVASC) 10 mg tablet TAKE 1 TABLET BY MOUTH EVERY DAY 90 tablet 3 08/09/19 25 Active riboflavin (VITAMIN B2) 100 mg tablet Take 1 tablet (100 mg total) by mouth 1 (one) time each day. Active losartan (COZAAR) 100 mg tablet TAKE 1 TABLET BY MOUTH EVERY DAY 90 tablet 1 09/20/19 25 Active fluticasone-umec lidinium-vilante rol (Trelegy Ellipta) 100-62.5-25 mcg inhaler Inhale 1 puff (100 mcg total) by mouth 1 (one) time each day. Rinse mouth with water after use to reduce aftertaste and incidence of candidiasis. Do not swallow. 3 each 3 09/23/19 25 2025 Active albuterol HFA (PROAIR HFA ; PROVENTIL HFA ; VENTOLIN HFA) 90 mcg/actuation inhaler Inhale 2 puffs by mouth every 6 (six) hours if needed for wheezing or shortness of breath. 3 each 3 09/23/19 25 2025 Active ondansetron (ZOFRAN) 8 mg tablet Take 1 tablet (8 mg total) by mouth every 8 (eight) hours if needed. Active methenamine hippurate (HIPREX) 1 gram tablet Take 1 tablet (1 g total) by mouth 2 (two) times a day with meals. 12/16/19 Active montelukast (SINGULAIR) 10 mg tabletIndication s:Moderate persistent asthma, uncomplicated TAKE 1 TABLET BY MOUTH EVERYDAY AT BEDTIME 90 tablet 1 12/23/19 Active docusate sodium (COLACE) 100 mg capsule Take 1 capsule (100 mg total) by mouth 2 (two) times a day. 180 capsule 1 12/26/19 Active senna 8.6 mg tablet TAKE 1 TABLET (8.6 MG TOTAL) BY MOUTH AT BEDTIME NEEDED FOR CONSTIPATION. 90 tablet 01/03/20 25 Active famotidine (PEPCID) 20 mg tablet TAKE 1 TABLET (20 MG) BY MOUTH TWICE A DAY NEEDED FOR HEARTBURN 180 tablet 01/23/20 25 Active LevoxyL 137 mcg tablet Take 1 tablet (137 mcg total) by mouth 1 (one) time each day before breakfast. 90 tablet 1 01/29/20 25 2025 Active Neurontin 600 mg tabletIndication s:Diabetes mellitus type 2, controlled, without complications (CMS/HCC V24, CMS/HCC V28) Take 1 tablet (600 mg total) by mouth 1 (one) time each day. 30 each 2 01/29/20 25 2025 Active blood-glucose meter misc Use to test blood sugars once daily in the morning, before breakfast. 03/03/20 21 2024 Discontinued(T herapy completed) EPINEPHrine (EpiPen 2-Nehemiah) 0.3 mg/0.3 mL injection Inject 1 Device as directed as needed (anaphylaxis) . Use as directed 07/13/19 23 2024 Discontinued(T herapy completed) FREESTYLE LANCETS MISC Use to test blood sugars once daily in the morning, before breakfast. 07/05/192024 Discontinued(T herapy completed) blood sugar diagnostic (FreeStyle Lite Strips) test strip Use to test blood sugars once daily in the morning, before breakfast. 11/28/192024 Discontinued(T herapy completed) senna (SENOKOT) 8.6 mg tablet Take 1 tablet (8.6 mg total) by mouth at bedtime as needed for constipation. 90 tablet 10/02/19 25 2024 Discontinued famotidine (PEPCID) 20 mg tablet Take 1 tablet (20 mg total) by mouth 2 (two) times a day if needed for heartburn. 180 tablet 10/28/192024 Discontinued levothyroxine (SYNTHROID, LEVOTHROID) 137 mcg tabletIndication s:Atrophy of thyroid (acquired) TAKE 1 TABLET BY MOUTH EVERY DAY 90 tablet 1 11/13/192024 Discontinued pantoprazole (PROTONIX) 40 mg EC tablet Take 1 tablet (40 mg total) by mouth 1 (one) time each day. Do not crush, chew, or split. 90 each 12/17/19 25 2024 Discontinued(S top Taking at Discharge) sucralfate (Carafate) 1 gram tablet Take 1 tablet (1 g total) by mouth 4 (four) times a day. 120 each 12/17/19 25 2024 Discontinued(S top Taking at Discharge) polyethylene glycol (MIRALAX) 17 gram packet Take 17 g by mouth 1 (one) time each day for 3 days. 51 g 01/03/202024 Discontinued(S top Taking at Discharge) linezolid (ZYVOX) 600 mg tablet Take 1 tablet (600 mg total) by mouth 2 (two) times a day for 5 days. 10 each 01/02/202024 Discontinued(T herapy completed) acetaminophen (TYLENOL) 500 mg tablet Take 2 tablets (1,000 mg total) by mouth every 8 (eight) hours for 10 days. 60 each 01/02/20 25 2024 Discontinued(T herapy completed) ertapenem 1,000 mg in sodium chloride 0.9 % 50 mL IVPB Infuse 1,000 mg into a venous catheter 1 (one) time each day at the same time for 3 doses. 01/15/20 25 2024 Active Problems Problem Noted Date Diagnosed Date Type 2 diabetes mellitus wit h diabetic polyneuropathy, with long-term current use of insulin ([facility] V24, [facility] V28) 01/28/2025 Acute pyelonephritis 01/11/2025 ESBL (extended spectrum beta -lactamase) producing bacteria infection 12/27/2024 Pyelonephritis 11/26/2024 RBBB 10/27/2024 Anxiety 08/19/2024 Lower extremity edema 08/19/2024 Morbid obesity with BMI of 4 5.0-49.9, adult ([facility] V24, [facility] V28) 08/19/2024 S/P left rotator cuff repair [...] CMS/HCC V28) 01/30/2022 Diabetes mellitus (CMS/HCC V24, CMS/HCC V28) Assessment & Plan (06/12/2024 4:05 PM [...] on echo study from 08/2021 Pulmonary eosinophilia ([facility] V24) 07/14/2021 Hyperparathyroidism ([facility] V24) 03/09/2021 Diabetes mellitus type 2, co ntrolled, without complications ([facility] V24, [facility] V28) 02/16/2021 Assessment & Plan [...] Future Anxiety and depression 06/14/2020 Overview (12/16/2023): [facility] Asthma, moderate persistent 05/10/2020 Overview (12/16/2023): Last [...] Supply letter has been sent to [facility] Return to clinic in 1 year [...] Encounters Date Type Department Care Team Description 01/29/2025 Results Follow-Up Adult Medicine [address] [phone] Sonal Torres PA 01/29/2025 Telephone Adult Medicine [address] [phone] Phuong So [place] 01/28/2025 10:55 AM EST Lab Draw Station [address] Diabetes mellitus type 2, controlled, without complications (CMS/HCC V24, CMS/HCC V28); Hypothyroidism, unspecified type; Epigastric abdominal pain; Gastroesophageal reflux disease without esophagitis; Leukocytosis, unspecified type 01/28/2025 10:00 AM EST Office Visit Endocrinology [address] [phone] Myrna Hussein MD Hypothyroidism, unspecified type (Primary Dx); Diabetes mellitus type 2, controlled, without complications (CMS/HCC V24, CMS/HCC V28); Type 2 diabetes mellitus with diabetic polyneuropathy, with long-term current use of insulin (CMS/HCC V24, CMS/HCC V28) 01/21/2025 9:45 AM EST Consult Breast Care [address] [phone] Unruly Ferrera MD Breast tenderness in female (Primary Dx); Family history of ovarian cancer 01/20/2025 Telephone Adult Medicine [address] [phone] Charleen Red [place] 01/19/2025 Telephone Adult Medicine [address] [phone] Ora Naylor MD 01/15/2025 Telephone Adult Medicine [address] [phone] Roxana Nettles RN 01/15/2025 Telephone Adult Medicine [address] [phone] Ora Naylor MD 01/15/2025 Telephone Infectious Disease [address] [phone] Paula Gonzalez RN 01/09/2025 5:37 PM EDT - 01/14/2025 3:16 PM EST Hospital Encounter [facility] Urology [address] [place] [phone] Asim Shukla MD Sondhi, Vikram, MD Japaridze, Anna, MD Rasul, Yar M, MD Acute pyelonephritis (Primary Dx); Lower extremity edema; Pyelonephritis Discharge Disposition: Home-Health Care [facility] 01/02/2025 Telephone Adult [address] [phone] Belia Kim [place] 12/30/2024 6:21 PM EDT Anesthesia Event [facility] OR [address] [place] [phone] Luis Armando Perea MD Devlin, Brandon, SRNA 12/30/2024 4:30 PM EDT - 12/30/2024 6:[address] [facility] OR [address] [place] [phone] Deandre Ohara MD . LEFT URETERAL STRICTURE, LEFT RETROGRADE PYELOGRAM, LEFT STENT EXCHANGE [52019 (CPT )] 12/26/2024 4:48 PM EDT - 01/01/2025 1:15 PM EDT Hospital Encounter [facility] Medical Surgical Unit [address] [place] [phone] Nain Cartagena MD Kokkinos, Erika, MD Ishtiaq, Rizwan, MD Surendran, Anupama, MD Mohani, Priya, MD Pyelonephritis (Primary Dx); ESBL (extended spectrum beta-lactamase) producing bacteria infection; Type 2 diabetes mellitus with other specified complication, without long-term current use of insulin ([facility] V24, [facility] V28); Primary hypertension Discharge Disposition: Home-Health Care [facility] 12/19/2024 9:45 AM EDT Office Visit Endocrinology [address] [phone] Jayesh Pineda MD Type 2 diabetes mellitus with other specified complication, without long-term current use of insulin ([facility] V24, [facility] V28) (Primary Dx) 12/16/2024 10:00 AM EDT Office Visit Adult Medicine [address] [phone] Ora Naylor MD Hospital discharge follow-up (Primary Dx); Pyelonephritis; Controlled type 2 diabetes mellitus without complication, without long-term current use of insulin ([facility] V24, [facility] V28); Gastroesophageal reflux disease without esophagitis 12/10/2024 Telephone Adult Medicine [address] [phone] Vandana Pearson MA 12/09/2024 9:00 AM EDT Nutrition Internal Medicine [facility] 175 [facility] [address] [place] [phone] Controlled type 2 diabetes mellitus without complication, without long-term current use of insulin ([facility] V24, [facility] V28) (Primary Dx) 12/05/2024 11:00 AM EDT Office Visit Orthopedic Surgery [facility] 160 175 [facility] [address] [place] [phone] Genny Arreguin PA S/P left rotator cuff repair (Primary Dx) 12/04/2024 Telephone Adult Medicine [address] [phone] Ora Naylor MD 12/03/2024 2:06 PM EDT - 12/03/2024 3:40 PM EDT Emergency [facility] Emergency [address] [place] [phone] Encounter for peripheral line placement (Primary Dx) Discharge Disposition: Home or Self Care 12/03/2024 Telephone Infectious [facility] [address] [phone] Noemi Huang [place] 11/27/2024 5:00 PM EDT Anesthesia Event [facility] Main OR [address] [place] [phone] Lucas Palma MD Korobkov, Vitaliy, DO 11/27/2024 4:10 PM EDT - 11/27/2024 5:40 PM EDT Surgery [facility] Main OR [address] [place] [phone] Jered Peralta MD CYSTOSCOPY, LEFT STENT PLACEMENT, RETROGRADE PYELOGRAM 11/26/2024 5:40 PM EDT - 12/02/2024 1:44 PM EDT Hospital Encounter [facility] Urology Unit [address] [place] [phone] Valente Garcia MD Jones, Christopher, MD Japaridze, Anna, MD Shah, Princy, MD Pyelonephritis (Primary Dx); AISHWARYA (acute kidney injury) (CMS/HCC V24); Moderate persistent asthma with exacerbation; Hydronephrosis, left; Renal colic Discharge Disposition: Home-Health Care [facility] 11/26/2024 3:00 PM EDT Office Visit Infectious Disease [facility] [address] [phone] Jo Diaz MD Hydronephrosis with urinary obstruction due to ureteral calculus (Primary Dx); Dysuria; Urothelial cancer (CMS/HCC V24, [facility] V28) 11/25/2024 Telephone Adult Medicine [facility] [address] [place] [phone] Ora Naylor MD 11/17/2024 9:15 AM EDT Office Visit Endocrinology - [address] [phone] Jayesh Pineda MD Type 2 diabetes mellitus with other specified complication, without long-term current use of insulin ([facility] V24, [facility] V28) (Primary Dx) 11/13/2024 Lab Requisition [facility] Lab [address] [place] [phone] Heriberto Rodriguez MD Other hydronephrosis from Last 3 Months Immunizations Immunization Administration Dates Next Due COVID-19 (Pfizer/Comirnaty) 12yo and older 12/29 Influenza Quadravalent, MDCK , 0.5ml, preservative free (Flucelvax) 6mo and older 01/18/2018 Influenza Quadravalent, MDCK , 0.5ml, with preservative (Flucelvax) 6mo and older 12/20/2016 Influenza Quadrivalent, 0.5m l, preservative free (Fluarix; FluLaval; Fluzone) ages 6mo and older (Afluria) 3yo and older 12/29/2022 Influenza trivalent, 0.5mL ( Fluzone High-dose) 65yo and older 11/15/2024 Influenza trivalent, with pr eservative (Fluzone; Afluria) 6mo and older 12/13/2015 Influenza, Unspecified 12/29/2022 Pfizer (ages 12 & older) Bivalent, COVID-19 12/11 Pfizer SARS-CoV-2 COVID-19, mRNA, LNP-S, preservative free 09/21/2020,08/31/2020 Pneumococcal conjugate 20 va lent (Prevnar 20, PCV 20) 2mo and older 10/01/2024 Pneumococcal polysaccharide 23 valent (Pneumovax 23) 2yo and older 01/15/2023,07/19/2017 RSV, bivalent, protein subun it RSVpreF, 0.5mL, Preservative Free (ABRYSVO) 50yo and older or 32 through 36 wks of 11/15/2024 SARS-COV-2 (COVID-19) Vaccine, Unspecified 09/09 Tdap Tetanus diptheria acell ular pertussis (Boostrix; Adacel) 7yo and older 10/31/2022,08/13/2012 Zoster recombinant (Shingrix) 19yo and older 08/2024,12/29/2022 Surgical History Surgery Date Site/Laterality Comments KNEE ARTHROSCOPY Right PROCEDURE: MA ARTHROSCOPY KNEE DIAGNOSTIC W/WO SYNOVIAL BX SPX WISDOM TOOTH EXTRACTION PROCEDURE: HISTORICAL WISDOM TEETH EXTRACTION TONSILLECTOMY PROCEDURE: HISTORICAL TONSILLECTOMY; COMMENT: and adenoids SECTION PROCEDURE: HISTORICAL DELIVERY OTHER SURGICAL HISTORY PROCEDURE: MA BIOPSY THYROID PERCUTANEOUS CORE NEEDLE COLONOSCOPY 12/10/2012 PROCEDURE: HISTORICAL COLONOSCOPY; COMMENT: normal; repeat in 3 yrs. sig. hyperplastic polyp OTHER SURGICAL HISTORY PROCEDURE: CYSTOSCOPY/SURG, URETHRA/BLAD NECK; COMMENT: sling procedure for stress incontinence OTHER SURGICAL HISTORY 08/25/2015 Right PROCEDURE: MA EXCISION NAIL MATRIX PERMANENT REMOVAL; COMMENT: right hallux Dr. Rangel COLONOSCOPY 01/31/2016 PROCEDURE: HISTORICAL COLONOSCOPY; COMMENT: 3 small polyps removed- dist.asc =tubular adenoma x 1; other nl tissue. COLONOSCOPY 09/29/2019 PROCEDURE: HISTORICAL COLONOSCOPY; COMMENT: 5 mm ascending colon polyp: Tubular adenoma. UPPER GASTROINTESTINAL ENDOSCOPY 09/29/2019 PROCEDURE: MA UPPER GI ENDOSCOPY PERFORMED; COMMENT: Visually normal on PPI treatment. ESOPHAGOGASTRODUODENOSCOPY 09/22/2021 PROCEDURE: MA EGD TRANSORAL BIOPSY SINGLE/MULTIPLE; COMMENT: EGD including biopsy normal OTHER SURGICAL HISTORY PROCEDURE: HISTORY OTHER; COMMENT: Maxillofacial surgery EXCISION BENIGN SKIN LESION TRUNK / ARM / LEG PROCEDURE: MA EXCISION TUMOR SOFT TISSUE BACK/FLANK SUBQ <3CM; [...] DX:Diabetes mellitus type 2, controlled, without complications ([facility]) Mild concentric left ventric ular [...] left upper extremity Shingles DX:Shingles Diabetes mellitus ([facility] V 24, [facility] V28) DX:Diabetes mellitus ([facility]) HLD (hyperlipidemia) 11/21/2021 DX:HLD (hyp erlipidemia) VIRGIE on CPAP DX:VIRGIE on CPAP Depression DX:Depression Overactive bladder DX:Overactive bladder Obesity with alveolar hypove ntilation ([facility] V24, [facility] V28) DX:Obesity with alveolar hypoventilation ([facility]) Morbid obesity with BMI of 4 0.0-44.9, adult ([facility] V24, [facility] V28) DX:Morbid obesity wit h BMI of 40.0-44.9, adult ([facility]) Asthma-chronic obstructive p ulmonary disease overlap syndrome ([facility] V24, [facility] V28) 01/30/2022 DX:Asthma-chronic obstructiv e pulmonary disease overlap syndrome ([facility]) Glaucoma Kidney stone on left side 06/2024 Dry skin BILATERAL LEGS/ USES PRESCRIBED CREAMS Adverse effect of anesthesia JESSICA Y SMALL THROAT Shortness of breath Joint pain Urinary tract infection Irregular heart beat R BBB Hiatal hernia Chronic pain disorder Neuromuscular disorder ([facility] V24, [facility] V28) MULTIPLE SITES Family History Medical History Relation Name Comments Breast cancer Aunt 1 maternal x 1 Ovarian cancer Aunt 2 maternal x 6 6 maternal au nts also with ov, uterine ca Glaucoma Brother 1 x 2 Diabetes Brother 2 Paco R Arthritis Father Paco G House Coronary artery disease Father Paco G House [place] age 68, HTN, Diabetes, cataract, glaucoma Diabetes [...] 1 x 2 Alive Brother 2 Paco Cortes Father Paco Mayer House Alive Maternal Grandfather Maternal Grandmother Mother Ester Bowman Alive Mother's side 1 1st cousin Alive Mother's side 2 1st cousin Paternal Grandfather Paternal Grandmother Sister x 2 Antionette Alive Social History Tobacco Use Types Packs/Day Years Used Date Smoking Tobacco: Never Passive Smoke Exposure: Never Smokeless Tobacco: Never Tobacco Cessation:Counseling Given: [...] ed Within the last 3 months, ho marta many times did you visit the emergency [...] for your loved ones. 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 Not on file Not on file Not on file Obstetrics History Para Term AB IAB SAB Ectopic Multiple Livin g Live Births 2 1 1 1 1 1 Date Outcome [...] Pulse 83 01/28/2025 10:07 AM EST Temperature 36.4 C (97.5 F) 01/21/2025 9:45 AM EST Respiratory Rate 16 01/14/2025 7:43 AM EST Oxygen Saturation 97% 01/14/2025 7:43 AM EST Inhaled Oxygen Concentration - - Weight 114 kg (251 lb 12.8 oz) 01/28/2025 10:07 AM EST Height 160 cm (5' 2.99 ) 01/10/2025 1:27 AM EDT Body Mass Index 44.62 01/10/2025 1:27 AM EDT Plan of Treatment Upcoming Encounters Date Type Department Care Team (Late st Contact Info) Description 02/02/2025 1:30 PM EST Office Visit Adult Medicine [address] [phone] Ora Sweeney MD [address] [place] [address] 02/24/2025 9:30 AM EST Office Visit Adult [address] [phone] Paula Garnica PA [address] [place] [address] 03/18/2025 8:30 AM EST Office Visit Orthopedic Surgery - [place] [address] [phone] Duke Dunn, DPJohan [address] [address] 04/01/2025 10:00 AM EST Office Visit Gastroenterology - [address] [phone] Alivia Dominguez NP [address] [address] 05/04/2025 10:00 AM EST Office Visit Endocrinology [address] [phone] Myrna Hussein MD [address] [place] [address] 09/22/2025 9:30 AM EDT Office Visit Pulmonology - [place] 175 [facility] [address] [place] [phone] Pretty Le MD [address] [place] [phone] 10/01/2025 11:30 AM EDT Office Visit Adult Medicine [facility] [address] [place] [phone] Ora Sweeney MD [address] [place], [place] 01/20/2026 9:30 AM EST Office Visit Breast Care Center [facility] [address] [place] [phone] Unruly Ferrera MD [address] [place] [phone] Health Maintenance Due Date Last Done Comments COVID-19 Vaccine ( season) 2024 12/29/2022, 12/29/2022, 05/18/2021, Additional history exists Diabetes: Blood Sugar Control Test (HGBA1C) 07/28/2025 01/28/2025, 10/02/2024, 11/26/2023, Additional history exists Diabetes: Annual Retina Eye Exam 08/26/2025 08/26/2024 Diabetes: Annual Foot Exam 10/01/2025 10/01/2024, Medicare Annual Wellness Visit 10/01/2025 10/01/2024 Diabetes: Annual Urine Albumin-Creatinine Ratio (uACR) 10/02/2025 10/02/2024, 10/04/2023 Social Influencers of Health Screening 01/10/2026 01/10/2025, 01/24/2024 Diabetes: Annual GFR (Glomerular Filtration Rate) 01/14/2026 01/14/2025, 01/13/2025, 01/12/2025, Additional history exists Falls Risk Assessment 01/14/2026 01/14/2025, 024 Hypertension/CHF/CAD Annual BMP Blood Test 01/14/2026 01/14/2025, 01/13/2025, 01/12/2025, Additional history exists Breast Cancer Screening 10/22/2026 10/23/19, 12/11/2022, 12/05/2021, Additional history exists Cholesterol Screening (Lipid Panel) 10/02/2029 10/02/2024, 10/04/2023, 10/04/2023 Osteoporosis Screening (Bone Density Screening) 03/31/2031 03/31/2021, 01/21/2018 DTaP,Tdap,and Td Vaccines (3 - Td or Tdap) 10/31/2032 10/31/2022, 08/13/2012 Colorectal Cancer Screening: Colonoscopy 08/21/2034 08/21/2024, 09/29/2019 Hepatitis C Screening Completed 09/22/2014 Pneumococcal Vaccine: 50+ Years Completed 10/01/2024, 01/15/2023, 07/19/2017 Depression Screening Completed 10/27/2024, 10/01/19 24 Influenza Vaccine Completed 11/15/2024, , 12/29/2022, Additional history exists RSV Immunization Adult Patients Completed 11/15/2024 Zoster Vaccines Completed 11/15/2024, 12/29/2022 HIB Vaccines Aged Out No longer eligi [...] this topic Medical Devices Implanted Type Area Piece Work Inspector Device Identifier Shelf Expiration Date Model / Serial / Lot Stent Uret Stretch Vl 7fr 22-3 - Sn/A - [id number] Implanted:Qty: 1 on 07/09/2024 by Heriberto Rodriguez MD at [facility] Stents Left: Ureter [employer]Y 11/18/2026 [id number] 70 / N/A / [id number] Stent Uret [id number] Contr Percuflex Hydroplus - Sn/A - [id number] Implanted:Qty: 1 on 11/27/2024 by Jered Peralta MD at [facility] Stents Left: Ureter [employer]Y [id number] 70 / N/A / [id number] Stent Uret [id number] Contr Percuflex Hydroplus - Sn/A - [id number] Implanted:Qty: 1 on 12/30/2024 by Deandre Ohara MD at [facility] Stents Left: Urethra [employer] [id number] 08/11/2027 [id number] 70 / N/A / [id number] Description:NO STRING Procedures Procedure Name Priority Date/Time Associated Diagnosis [...] controlled, without complications (CMS/HCC V24, CMS/HCC V28) CBC WITH AUTO DIFFERENTIAL Routine 01/14/2025 5:38 AM EST BASIC METABOLIC PANEL Timed 01/14/2025 5:38 AM EST CBC AND DIFFERENTIAL Routine 01/14/2025 5:38 AM EST POCT GLUCOSE BLOOD Routine 01/13/2025 4:19 PM EST POCT GLUCOSE BLOOD Routine 01/13/2025 10:44 AM EST POCT GLUCOSE BLOOD Routine 01/13/2025 8:09 AM EST CBC WITH AUTO DIFFERENTIAL Routine 01/13/2025 5:18 AM EST BASIC METABOLIC PANEL Timed 01/13/2025 5:18 AM EST CBC AND DIFFERENTIAL Routine 01/13/2025 5:18 AM EST CPAP NIV Routine 01/12/2025 10:00 PM EST POCT GLUCOSE BLOOD Routine 01/12/2025 8:13 PM EST POCT GLUCOSE BLOOD Routine 01/12/2025 4:18 PM EST CBC WITH AUTO DIFFERENTIAL Routine 01/12/2025 10:46 AM EST BASIC METABOLIC PANEL Timed 01/12/2025 10:46 AM EST CBC AND DIFFERENTIAL Routine 01/12/2025 10:46 AM EST CPAP NIV Routine 01/11/2025 10:00 PM EST POCT GLUCOSE BLOOD Routine 01/11/2025 7:26 PM EST POCT GLUCOSE BLOOD Routine 01/11/2025 4:30 PM EST POCT GLUCOSE BLOOD Routine 01/11/2025 11:17 AM EST POCT GLUCOSE BLOOD Routine 01/11/2025 8:04 AM EST LIPASE Add-On 01/11/2025 5:59 AM EST CBC WITH AUTO DIFFERENTIAL Routine 01/11/2025 5:59 AM EST CBC AND DIFFERENTIAL Routine 01/11/2025 5:59 AM EST BASIC METABOLIC PANEL Routine 01/11/2025 5:59 AM EST POCT GLUCOSE BLOOD Routine 01/10/2025 8:06 PM EDT POCT GLUCOSE BLOOD Routine 01/10/2025 4:22 PM EDT POCT GLUCOSE BLOOD Routine 01/10/2025 11:11 AM EDT POCT GLUCOSE BLOOD Routine 01/10/2025 7:34 AM EDT COMPLETE BLOOD COUNT Routine 01/10/2025 5:40 AM EDT BASIC METABOLIC PANEL Routine 01/10/2025 5:40 AM EDT CPAP NIV Routine 01/10/2025 2:00 AM EDT VAS US DUPLEX LOWER EXT VENOUS LEFT Routine 01/09/2025 11:02 PM EDT Lower extremity edema RESPIRATORY VIRUS PANEL MOLECULAR STUDY Routine 01/09/2025 9:47 PM EDT CULTURE BLOOD STAT 01/09/2025 8:21 PM EDT LACTATE, WITH REFLEX STAT 01/09/2025 7:42 PM EDT CULTURE BLOOD STAT 01/09/2025 7:42 PM EDT ALTAMIRANO URINE CULTURE TUBE STAT 01/10/20 6:55 PM EDT URINALYSIS WITH REFLEX MICROSCOPIC AND CULTURE STAT 01/09/2025 6:55 PM EDT URINALYSIS WITH REFLEX MICROSCOPIC AND CULTURE STAT 01/09/2025 6:55 PM EDT CULTURE URINE STAT 01/09/2025 6:[address] ABDOMEN PELVIS WO CONTRAST STAT 01/09/2025 6:03 PM EDT CBC WITH AUTO DIFFERENTIAL STAT 01/09/2025 4:21 PM EDT COMPREHENSIVE METABOLIC PANEL STAT 01/09/2025 4:21 PM EDT CBC AND DIFFERENTIAL STAT 01/09/2025 4:21 PM EDT MAGNESIUM Routine 01/01/2025 6:06 AM EDT BASIC METABOLIC PANEL Routine 01/01/2025 6:06 AM EDT LAVENDER - EDTA Routine 01/01/2025 6:05 AM EDT EXTRA TUBES Routine 01/01/2025 6:05 AM EDT VANCOMYCIN, TROUGH Timed 12/31/2024 7:00 PM EDT CBC WITH AUTO DIFFERENTIAL Routine 12/31/2024 9:19 AM EDT BASIC METABOLIC PANEL Routine 12/31/2024 9:19 AM EDT CBC AND DIFFERENTIAL Routine 12/31/2024 9:19 AM EDT CPAP NIV Routine 12/30/2024 10:00 PM EDT TH AN LMA(NO CHARGE) Routine 12/30/2024 6:48 PM EDT XR UROGRAM RETROGRADE Routine 12/30/2024 6:44 PM EDT MA CYSTOURETHROSCOPY WITH TREATMENT URETERAL STRICTURE 12/30/2024 6:20 PM EDT Hydronephrosis with ureteral stricture, not elsewhere classified Case Notes C-ARM, SCOPE, Move to 7 Special Needs 12/29 Move to 12/30 per Kristin change from Dr Rodriguez to Dr Ohara. JT VANCOMYCIN, TROUGH Timed 12/29/2024 8:59 PM EDT CBC WITH AUTO DIFFERENTIAL Routine 12/29/2024 5:55 AM EDT CBC AND DIFFERENTIAL Routine 12/29/2024 5:55 AM EDT BASIC METABOLIC PANEL Routine 12/29/2024 5:55 AM EDT CULTURE BLOOD STAT 12/28/2024 8:57 AM EDT CULTURE BLOOD STAT 12/28/2024 8:57 AM EDT LAVENDER - EDTA Routine 12/28/2024 8:50 AM EDT SST - GOLD Routine 12/28/2024 8:50 AM EDT EXTRA TUBES Routine 12/28/2024 8:50 AM EDT CBC WITH AUTO DIFFERENTIAL Routine 12/28/2024 6:32 AM EDT CBC AND DIFFERENTIAL Routine 12/28/2024 6:32 AM EDT BASIC METABOLIC PANEL Routine 12/28/2024 6:32 AM EDT CPAP NIV Routine 12/27/2024 10:00 PM EDT CPAP NIV Routine 12/27/2024 9:43 PM EDT CULTURE URINE Routine 12/27/2024 8:56 AM EDT CBC WITH AUTO DIFFERENTIAL Routine 12/27/2024 6:15 AM EDT LACTATE Routine 12/27/2024 6:15 AM EDT BASIC METABOLIC PANEL Routine 12/27/2024 6:15 AM EDT CBC AND DIFFERENTIAL Routine 12/27/2024 6:[address] ABDOMEN PELVIS W CONTRAST STAT 12/26/2024 10:30 PM EDT BLOOD CULTURE PATHOGENS BY PCR Routine 12/26/2024 8:55 PM EDT CULTURE BLOOD STAT 12/26/2024 8:55 PM EDT CULTURE BLOOD STAT 12/26/2024 8:55 PM EDT URINALYSIS WITH REFLEX MICROSCOPIC STAT 12/26/2024 7:37 PM EDT URINALYSIS WITH REFLEX MICROSCOPIC STAT 12/26/2024 7:37 PM EDT ALTAMIRANO URINE CULTURE TUBE Routine 12/27/19 7:35 PM EDT EXTRA TUBES Routine 12/26/2024 7:35 PM EDT LACTATE, WITH REFLEX STAT 12/26/2024 7:09 PM EDT CBC WITH AUTO DIFFERENTIAL STAT 12/26/2024 5:27 PM EDT LIPASE STAT 12/26/2024 5:27 PM EDT COMPREHENSIVE METABOLIC PANEL STAT 12/26/2024 5:27 PM EDT CBC AND DIFFERENTIAL STAT 12/26/2024 5:27 PM EDT XR SHOULDER 2+ VIEWS LEFT Routine 12/05/2024 10:33 AM EDT S/P left rotator cuff repair CBC WITH AUTO DIFFERENTIAL Routine 12/01/2024 5:25 PM EDT CBC AND DIFFERENTIAL Routine 12/01/2024 5:25 PM EDT BASIC METABOLIC PANEL Routine 12/01/2024 5:25 PM EDT INSERT MIDLINE Routine 12/01/2024 12:45 PM EDT CPAP NIV Routine 11/30/2024 10:00 PM EDT CBC WITH AUTO DIFFERENTIAL Routine 11/30/2024 6:27 AM EDT LACTATE Routine 11/30/2024 6:27 AM EDT CBC AND DIFFERENTIAL Routine 11/30/2024 6:27 AM EDT BASIC METABOLIC PANEL Routine 11/30/2024 6:27 AM EDT CPAP NIV Routine 11/29/2024 10:00 PM EDT CBC WITH AUTO DIFFERENTIAL Routine 11/29/2024 5:47 AM EDT CBC AND DIFFERENTIAL Routine 11/29/2024 5:47 AM EDT BASIC METABOLIC PANEL Routine 11/29/2024 5:47 AM EDT CPAP NIV Routine 11/28/2024 10:00 PM EDT CPAP NIV Routine 11/27/2024 10:00 PM EDT XR UROGRAM RETROGRADE Routine 11/27/2024 5:28 PM EDT CULTURE URINE Routine 11/27/2024 5:23 PM EDT Hydronephrosis, left Renal colic Pyelonephritis TH AN LMA(NO CHARGE) Routine 11/27/2024 5:13 PM EDT CYSTOSCOPY 11/27/2024 5:00 PM EDT Hydronephrosis, left Renal colic on left side Pyelonephritis of left kidney Case Notes C-ARM RESPIRATORY VIRUS PANEL MOLECULAR STUDY Routine 11/27/2024 8:54 AM EDT CBC WITH AUTO DIFFERENTIAL Routine 11/27/2024 6:45 AM EDT CBC AND DIFFERENTIAL Routine 11/27/2024 6:45 AM EDT BASIC METABOLIC PANEL Routine 11/27/2024 6:45 AM EDT CPAP NIV Routine 11/26/2024 10:45 PM EDT CPAP NIV Routine 11/26/2024 10:45 PM EDT CULTURE BLOOD STAT 11/26/2024 8:39 PM EDT CULTURE BLOOD STAT 11/26/2024 8:[address] ABDOMEN PELVIS W CONTRAST STAT 11/26/2024 8:01 PM EDT LACTATE STAT 11/26/2024 7:13 PM EDT ALTAMIRANO URINE CULTURE TUBE STAT 11/27/19 7:13 PM EDT URINALYSIS WITH REFLEX MICROSCOPIC AND CULTURE STAT 11/26/2024 7:13 PM EDT URINALYSIS WITH REFLEX MICROSCOPIC AND CULTURE STAT 11/26/2024 7:13 PM EDT CULTURE URINE STAT 11/26/2024 7:13 PM EDT THYROID STIMULATING HORMONE WITH REFLEX TO FREE T4 AND FREE T3 Add-On 11/26/2024 6:06 PM EDT CBC WITH AUTO DIFFERENTIAL STAT 11/26/2024 6:06 PM EDT COMPREHENSIVE METABOLIC PANEL STAT 11/26/2024 6:06 PM EDT CBC AND DIFFERENTIAL STAT 11/26/2024 6:[address] REPORT 11/14/2024 CREATININE, SERUM Routine 11/12/2024 11:10 AM EDT Other hydronephrosis BUN Routine 11/12/2024 11:10 AM EDT Other hydronephrosis MG MAMMO DIGITAL DIAGNOSTIC W DELTA BILAT Routine 10/22/2024 9:27 AM EDT Pain of both breasts MICROALBUMIN CREATININE URINE RATIO Routine 10/02/2024 11:32 AM EDT Controlled type 2 diabetes mellitus without complication, without long-term current use of insulin ([facility] V24, [facility] V28) LIPID PANEL WITH REFLEX TO DIRECT LDL Routine 10/02/2024 11:32 AM EDT Controlled type 2 diabetes mellitus without complication, without long-term current use of insulin ([facility] V24, [facility] V28) EXTERNAL DIABETIC RETINA EYE EXAM Routine 08/26/2024 10:09 AM EDT COLONOSCOPY Routine 08/21/2024 8:42 AM EDT Rectal bleeding DEPRESSION SCREENING Routine 10/01/2023 FALLS RISK ASSESSMENT Routine 10/01/2023 DIABETES FOOT EXAM Routine 10/01/2023 DXA BONE DENSITY STUDY 1+ SITS AXIAL SKEL Routine 03/31/2021 9:28 AM EST Hyperparathyroidism , unspecified ([facility] V24) HEPATITIS C SCREENING Routine 09/22/2014 from Last 3 Months or Most Recently Relevant to Health Maintenance Results * (ABNORMAL) CBC auto differential (01/28/2025 11:03 AM EST) Only the most recent of16 resultswithin the time period is included. WBC 7.2 4.8 - 10.8 K/[facility] LAB HEMETOLOGY METHOD 01/28/2025 12:34 PM EST [facility] RBC 4.40 3.80 - 4.80 M/mcL LAB HEMETOLOGY METHOD 01/28/2025 12:34 PM [facility] Hemoglobin 11.0(L) 11.5 - 16.0 g/dL LAB HEMETOLOGY METHOD 01/28/2025 12:34 PM [facility] Hematocrit 35.2 35.0 - 47.0 % LAB HEMETOLOGY METHOD 01/28/2025 12:34 PM [facility] MCV 80.4 79.0 - 98.0 FL LAB HEMETOLOGY METHOD 01/28/2025 12:34 PM [facility] MCH 25.1(L) 27.0 - 32.0 pcg LAB HEMETOLOGY METHOD 01/28/2025 12:34 PM [facility] MCHC 31.3(L) 32.0 - 37.0 g/dL LAB HEMETOLOGY METHOD 01/28/2025 12:34 PM [facility] RDW 15.8(H) 11.0 - 15.0 % LAB HEMETOLOGY METHOD 01/28/2025 12:34 PM [facility] Platelets 284 130 - 400 K/mcL LAB HEMETOLOGY METHOD 01/28/2025 12:34 PM [facility] MPV 11.8(H) 7.0 - 11.0 FL LAB HEMETOLOGY METHOD 01/28/2025 12:34 PM [facility] NRBC 0.0 <1.0 % LAB HEMETOLOGY METHOD 01/28/2025 12:34 PM [facility] NRBC Absolute 0.00 <0.10 K/mcL LAB HEMETOLOGY METHOD 01/28/2025 12:34 PM [facility] Neutrophils Relative 63.5 % LAB HEMETOLOGY METHOD 01/28/2025 12:34 PM [facility] Lymphocytes Relative 22.8 % LAB HEMETOLOGY METHOD 01/28/2025 12:34 PM EST [facility] Monocytes Relative 7.8 % LAB HEMETOLOGY METHOD 01/28/2025 12:34 PM [facility] Eosinophils Relative 4.5 % LAB HEMETOLOGY METHOD 01/28/2025 12:34 PM [facility] Basophils Relative 0.7 % LAB HEMETOLOGY METHOD 01/28/2025 12:34 PM [facility] Immature Granulocytes Relative 0.7 % LAB HEMETOLOGY METHOD 01/28/2025 12:34 PM [facility] Neutrophils Absolute 4.55 1.50 - 7.00 K/mcL LAB HEMETOLOGY METHOD 01/28/2025 12:34 PM [facility] Lymphocytes Absolute 1.63 1.00 - 5.00 K/mcL LAB HEMETOLOGY METHOD 01/28/2025 12:34 PM [facility] Monocytes Absolute 0.56 0.20 - 1.00 K/mcL LAB HEMETOLOGY METHOD 01/28/2025 12:34 PM [facility] Eosinophils Absolute 0.32 0.00 - 0.50 K/mcL LAB HEMETOLOGY METHOD 01/28/2025 12:34 PM [facility] Basophils Absolute 0.05 0.00 - 0.20 K/mcL LAB HEMETOLOGY METHOD 01/28/2025 12:34 PM [facility] Immature Granulocytes Absolute 0.05(H) 0.00 - 0.03 K/mcL LAB HEMETOLOGY METHOD 01/28/2025 12:34 PM [facility] Blood Venous blood specimen / Unknown Venipuncture / Unknown 01/28/2025 11:03 AM EST 01/28/2025 11:03 AM EST us Sonal NOVAK LAB BLOOD ORDERABLES Final Resul t [facility] [address] [place] [address], * (ABNORMAL) Thyroid stimulating hormone (01/28/2025 11:03 AM EST) Pathologist [facility] TSH 8.68(H) 0.40 - 4.00 mcIU/mL 01/28/2025 4:39 PM EST [facility] Blood Venous blood specimen / Unknown Venipuncture / Unknown 01/28/2025 11:03 AM EST 01/28/2025 11:03 AM EST us Myrna Hussein MD LAB BLOOD ORDERABLES Final Result [facility] [address] [place] [address], * Thyroxine free (01/28/2025 11:03 AM EST) [facility] Free T4 1.04 0.70 - 1.80 ng/dL 01/28/2025 4:39 PM EST [facility] Blood Venous blood specimen / Unknown Venipuncture / Unknown 01/28/2025 11:03 AM EST 01/28/2025 11:03 AM EST Myrna Hussein MD LAB BLOOD ORDERABLES Final Result [facility] [address] [place] [address], [place] [phone] * (ABNORMAL) Hemoglobin A1c (01/28/2025 11:03 AM EST) Pathologist [facility] Hemoglobin A1C 7.1(H) <6.5 % LAB CHEMISTRY METHOD 01/28/2025 3:01 PM EST [facility] Mean Bld Glu Estim. 157 mg/dL LAB CHEMISTRY METHOD 01/28/2025 3:01 PM EST [facility] Blood Venous blood specimen / Unknown Venipuncture / Unknown 01/28/2025 11:03 AM EST 01/28/2025 11:03 AM EST Myrna Hussein MD LAB BLOOD ORDERABLES Final Result [facility] [address] [place] [address], * (ABNORMAL) Basic metabolic panel (01/14/2025 5:38 AM EST) Only the most recent of14 resultswithin the time period is included. Sodium 139 133 - 145 mmol/L LAB CHEMISTRY METHOD 01/14/2025 7:07 AM [facility] Potassium 4.2 3.5 - 5.5 mmol/L LAB CHEMISTRY METHOD 01/14/2025 7:07 AM [facility] Chloride 103 96 - 110 mmol/L LAB CHEMISTRY METHOD 01/14/2025 7:07 AM [facility] CO2 31 21 - 32 mmol/L LAB CHEMISTRY METHOD 01/14/2025 7:07 AM [facility] Anion Gap 5 3 - 11 LAB CHEMISTRY METHOD 01/14/2025 7:07 AM [facility] Glucose 136(H) 70 - 100 mg/dL LAB CHEMISTRY METHOD 01/14/2025 7:07 AM [facility] BUN 15 5 - 25 mg/dL LAB CHEMISTRY METHOD 01/14/2025 7:07 AM [facility] Creatinine 0.81 0.50 - 1.10 mg/dL LAB CHEMISTRY METHOD 01/14/2025 7:07 AM [facility] eGFR 80 >=60 mL/min/1. 73m2 LAB CHEMISTRY METHOD 01/14/2025 7:07 AM [facility] Comment:Calculation based on the Chronic Kidney Disease Epidemiology Collaboration (CKD-EPI) equation refit without adjustment for race. BUN/Creatinine Ratio 18.5 LAB CHEMISTRY METHOD 01/14/2025 7:07 AM EST [facility] Calcium 9.0 8.5 - 10.5 mg/dL LAB CHEMISTRY METHOD 01/14/2025 7:07 AM EST [facility] Blood Venous blood specimen / Unknown Venipuncture / Unknown 01/14/2025 5:38 AM EST 01/14/2025 6:16 AM EST us Gulshan Dillard MD LAB BLOOD ORDERABLES Final Resul t Performing Organization Address City/[facility]/ZIP Co de Phone Number [facility] [address] [place] [address], [place] [phone] * (ABNORMAL) POCT Glucose, blood (01/13/2025 4:19 PM EST) Only the most recent of13 resultswithin the time period is included. Glucose POCT 107(H) 70 - 100 mg/dL 01/13/2025 4:21 PM [facility] Blood Capillary blood specimen / Unknown 01/13/2025 4:19 PM EST 01/13/2025 4:22 PM EST us Gulshan Dillard MD LAB POINT OF CARE TE ST DOCKED DEVICE UNSOLICITED RESULTS Final Result Performing Organization Address City/[facility]/ZIP Co de Phone Number [facility] [address] [place] [address], [place] [phone] * Lipase (01/11/2025 5:59 AM EST) Only the most recent of2 resultswithin the time period is included. Lipase 26 13 - 75 unit/L LAB CHEMISTRY METHOD 01/11/2025 2:01 PM EST [facility] Blood Venous blood specimen / Unknown Venipuncture / Unknown 01/11/2025 5:59 AM EST 01/11/2025 6:47 AM EST us Rosio Morrissey MD LAB BLOOD ORDERABLES Final Res ult [facility] [address] [place] [address], * (ABNORMAL) Complete blood count (01/10/2025 5:40 AM EDT) WBC 8.3 4.8 - 10.8 K/mcL LAB HEMETOLOGY METHOD 01/10/2025 6:54 AM EDT [facility] RBC 3.90 3.80 - 4.80 M/mcL LAB HEMETOLOGY METHOD 01/10/2025 6:54 AM EDT [facility] Hemoglobin 9.8(L) 11.5 - 16.0 g/dL LAB HEMETOLOGY METHOD 01/10/2025 6:54 AM EDT [facility] Hematocrit 31.4(L) 35.0 - 47.0 % LAB HEMETOLOGY METHOD 01/10/2025 6:54 AM EDT [facility] MCV 80.7 79.0 - 98.0 FL LAB HEMETOLOGY METHOD [facility]/10[facility]25 6[facility] MCH 25.2(L) 27.0 - 32.0 pcg LAB HEMETOLOGY METHOD 01/10/2025 6:54 AM EDT [facility] MCHC 31.2(L) 32.0 - 37.0 g/dL LAB HEMETOLOGY METHOD [facility]/10[facility]2025 6[facility] RDW 16.3(H) 11.0 - 15.0 % LAB HEMETOLOGY METHOD 01/10/2025 6:54 [facility] Platelets 195 130 - 400 K/mcL LAB HEMETOLOGY METHOD 01/10/2025 6:54 AM EDT [facility] MPV 10.4 7.0 - 11.0 FL LAB HEMETOLOGY METHOD 01/10/2025 6:54 AM EDT [facility] NRBC 0.0 <1.0 % LAB HEMETOLOGY METHOD 01/10/2025 6:54 AM EDT [facility] NRBC Absolute 0.00 <0.10 K/mcL LAB HEMETOLOGY METHOD 01/10/2025 6:54 AM EDT [facility] Blood Venous blood specimen / Unknown Venipuncture / Unknown 01/10/2025 5:40 AM EDT 01/10/2025 6:35 AM EDT us Cassidy NOVAK LAB BLOOD ORDERABLES Final Resu lt [facility] [address] [place] [address], * Vascular US duplex lower extremity venous left (01/09/2025 11:02 PM EDT) Anatomical Region Laterality Modality Vascular, Abdomen Ultrasound 01/10/2025 6:44 AM EDT Impressions 01/10/2025 6:45 AM EDT No deep venous thrombosis demonstrated. 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 Left lower extremity edema. Clinical concern for deep venous thrombosis. TECHNIQUE: Real-time ultrasonography of the venous system from the groin to the proximal calf is performed. Compression and augmentation were used as needed. Color mapping was performed. Doppler spectral analysis was performed. FINDINGS: The venous system from the groin into the proximal calf was visualized and compressible. The caliber appears within normal limits. The visualized venous system is compressible. There is appropriate color saturation of the lumen. Appropriate spectral waveforms were obtained during augmentation and compression. There is an oval hypoechoic collection in the left popliteal fossa which measures approximately 4.6 x 1.2 x 3.0 cm. There is no color signal. There is posterior enhancement. Procedure Note Marquez Bentley MD - 01/10/2025 EXAM: DUPLEX ULTRASOUND LOWER, UNILATERAL LEFT HISTORY: Left lower extremity pain. Left lower extremity edema. Clinicalconcern for deep venous thrombosis. TECHNIQUE: Real-time ultrasonography of the venous system from the grointo the proximal calf is performed. Compression and augmentation were usedas needed. Color mapping was performed. Doppler spectral analysis wasperformed. FINDINGS: The venous system from the groin into the proximal calf wasvisualized and compressible. The caliber appears within normal limits. The visualized venous system is compressible. There is appropriate colorsaturation of the lumen. Appropriate spectral waveforms were obtained during augmentation andcompression. There is an oval hypoechoic collection in the left popliteal fossa whichmeasures approximately 4.6 x 1.2 x 3.0 cm. There is no color signal. Thereis posterior enhancement. IMPRESSION: No deep venous thrombosis demonstrated. 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 Adenovirus Detection by PCR Not Detected Not Detected LAB MICROBIOLOGY METHOD 01/09/2025 11:21 PM EDT [facility] Influenza A PCR Not Detected Not Detected LAB MICROBIOLOGY METHOD 01/09/2025 11:21 PM EDT [facility] Influenza B PCR Not Detected Not Detected LAB MICROBIOLOGY METHOD 01/09/2025 11:21 PM EDT [facility] Coronavirus 229E Not Detected Not Detected LAB MICROBIOLOGY METHOD 01/09/2025 11:21 PM EDT [facility] Coronavirus HKU1 Not Detected Not Detected LAB MICROBIOLOGY METHOD 01/09/2025 11:21 PM EDT [facility] Coronavirus OC43 Not Detected Not Detected LAB MICROBIOLOGY METHOD 01/09/2025 11:21 PM EDT [facility] Coronavirus NL63 Not Detected Not Detected LAB MICROBIOLOGY METHOD 01/09/2025 11:21 PM EDT [facility] Parainfluenza Virus 1 Not Detected Not Detected LAB MICROBIOLOGY METHOD 01/09/2025 11:21 PM EDT [facility] Parainfluenza Virus 2 Not Detected Not Detected LAB MICROBIOLOGY METHOD 01/09/2025 11:21 PM EDT [facility] Parainfluenza Virus 3 Not Detected Not Detected LAB MICROBIOLOGY METHOD 01/09/2025 11:21 PM EDT [facility] Parainfluenza Virus 4 Not Detected Not Detected LAB MICROBIOLOGY METHOD 01/09/2025 11:21 PM EDT [facility] RSV PCR Not Detected Not Detected LAB MICROBIOLOGY METHOD 01/09/2025 11:21 PM EDT [facility] Human Metapneumovirus A and B Not Detected Not Detected LAB MICROBIOLOGY METHOD 01/09/2025 11:21 PM EDT [facility] Rhinovirus/Entero virus Not Detected Not Detected LAB MICROBIOLOGY METHOD 01/09/2025 11:21 PM EDT [facility] Bordetella pertussis Not Detected Not Detected LAB MICROBIOLOGY METHOD 01/09/2025 11:21 PM EDT [facility] Bordetella parapertussis Not Detected Not Detected LAB MICROBIOLOGY METHOD 01/09/2025 11:21 PM EDT [facility] Mycoplasma pneumo by PCR Not Detected Not Detected LAB MICROBIOLOGY METHOD 01/09/2025 11:21 PM EDT [facility] Chlamydia pneumoniae Not Detected Not Detected LAB MICROBIOLOGY METHOD 01/09/2025 11:21 PM EDT [facility] SARS COV-2 Not Detected Not Detected LAB MICROBIOLOGY METHOD 01/09/2025 11:21 PM EDT [facility] Swab Both anterior nares / Unknown Non-blood Collection / Unknown 01/09/2025 9:47 PM EDT 01/09/2025 10:25 PM EDT Narrative [facility] - 01/09/2025 11:21 PM EDT Testing was performed using the [employer] Respiratory Pathogen PCR Assay. All results must be correlated with the clinical findings. Results should not be used as the sole basis for diagnosis. False Negative results may occur from the presence of sequence variants in the region targeted by the assay or the presence of inhibitors. Results may be affected by concurrent antiviral/antimicrobial therapy or levels of organisms that are below the limit of detection. Cassidy NOVAK LAB MICROBIOLOGY - GENERAL AMY MAN Final Result [facility] [address] [place] [address], * Blood Culture, Peripheral #2 (01/09/2025 8:21 PM EDT) Only the most recent of8 resultswithin the time period is included. Culture, Blood No growth at 5 days 01/14/2025 8:01 PM EST [facility] Blood Venous blood specimen / Unknown Venipuncture / Unknown 01/09/2025 8:21 PM EDT 01/09/2025 8:41 PM EDT Asim Shukla MD LAB MICROBIOLOGY - GENERA L ORDERABLES Final Result Performing Organization Address [facility]/ZIP Co de Phone Number [facility] [address] [place] [address], [place] [phone] * Lactate, with Reflex (01/09/2025 7:42 PM EDT) Only the most recent of2 resultswithin the time period is included. [facility] LACTIC ACID 1.2 0.4 - 2.0 mmol/L LAB CHEMISTRY METHOD 01/09/2025 8:28 PM EDT [facility] Blood Venous blood specimen / Unknown Venipuncture / Unknown 01/09/2025 7:42 PM EDT 01/09/2025 8:01 PM EDT Asim Shukla MD LAB BLOOD ORDERABLES Soni l Result Performing Organization Address [facility] de Phone Number [facility] [address] [place] [address], [place] [phone] * (ABNORMAL) Urinalysis with reflex microscopic and culture (01/09/2025 6:55 PM EDT) Only the most recent of2 resultswithin the time period is included. [facility] Specific [place] Urine 1.007 1.003 - 1.030 LAB URINALYSIS - AUTOMATED METHOD 01/09/2025 7:28 PM EDT [facility] pH, Urine 7.0 5.0 - 8.0 pH LAB URINALYSIS - AUTOMATED METHOD 01/09/2025 7:28 PM EDT [facility] Leukocytes, Urine Large(A) Negative LAB URINALYSIS - AUTOMATED METHOD 01/09/2025 7:28 PM EDT [facility] Nitrite, Urine Negative Negative LAB URINALYSIS - AUTOMATED METHOD 01/09/2025 7:28 PM EDT [facility] Protein, Urine 30(A) <=Trace mg/dL LAB URINALYSIS - AUTOMATED METHOD 01/09/2025 7:28 PM [facility] Glucose, Urine Negative Negative mg/dL LAB URINALYSIS - AUTOMATED METHOD 01/09/2025 7:28 PM [facility] Ketones, Urine Negative Negative mg/dL LAB URINALYSIS - AUTOMATED METHOD 01/09/2025 7:28 PM [facility] Urobilinogen , Urine 0.2 0.2 - 1.0 mg/dL LAB URINALYSIS - AUTOMATED METHOD 01/09/2025 7:28 PM [facility] Bilirubin, Urine Negative Negative LAB URINALYSIS - AUTOMATED METHOD 01/09/2025 7:28 PM [facility] Blood, Urine Moderate(A) Negative LAB URINALYSIS - AUTOMATED METHOD 01/09/2025 7:28 PM [facility] RBC, Urine 13.2(H) 0 - 4 /HPF LAB URINALYSIS - AUTOMATED METHOD 01/09/2025 7:28 PM [facility] WBC, Urine 44.0(H) 0 - 4 /HPF LAB URINALYSIS - AUTOMATED METHOD 01/09/2025 7:28 PM [facility] Squamous Epithelial, Urine 8 0 - 60 /LPF LAB URINALYSIS - AUTOMATED METHOD 01/09/2025 7:28 PM [facility] Bacteria, Urine Moderate(A) Negative /HPF LAB URINALYSIS - AUTOMATED METHOD 01/09/2025 7:28 PM [facility] Hyaline Casts, Urine 0.4 0 - 3 /LPF LAB URINALYSIS - AUTOMATED METHOD 01/09/2025 7:28 PM [facility] Urine Urine specimen obtained by clean catch procedure / Unknown Non-blood Collection / Unknown 01/09/2025 6:55 PM EDT 01/09/2025 7:17 PM EDT Dakota Schroeder MD LAB URINE ORDERABLES Final Result Performing Organization Address City/[facility]/ZIP Co de Phone Number [facility] [address] [place] [address], [place] [phone] * [place] urine culture tube (01/09/2025 6:55 PM EDT) Only the most recent of3 resultswithin the time period is included. Extra Tube Hold for add-ons. 01/09/2025 9:01 PM EDT [facility] Comment:Auto resulted. Urine Urine specimen obtained by clean catch procedure / Unknown Non-blood Collection / Unknown 01/09/2025 6:55 PM EDT 01/09/2025 7:17 PM EDT Dakota Schroeder MD LAB URINE ORDERABLES Final Result Performing Organization Address [facility] Co de Phone Number [facility] [address] [place] [address], [place] [phone] * (ABNORMAL) Culture urine (01/09/2025 6:55 PM EDT) Only the most recent of4 resultswithin the time period is included. Culture, Urine >=100,000 CFU/mL Klebsiella pneumoniae ssp pneumoniae(A) AARON 01/11/2025 10:32 AM EST [facility] Comment: This is an edited result. Previous organism was Gram negative bacilli on 01/10/2025 at 1423 EDT. Urine Urine specimen obtained by clean catch procedure / Unknown Non-blood Collection / Unknown 01/09/2025 6:55 PM EDT 01/09/2025 7:28 PM EDT Narrative Organism Antibiotic Method Susceptibility Klebsiella pneumoniae ssp pneumoniae Amoxicillin/Clavulanate AARON <=2 ug/ml: Susceptible Klebsiella pneumoniae ssp pneumoniae Ampicillin/Sulbactam AARON 4 ug/ml: Susceptible Klebsiella pneumoniae ssp pneumoniae Piperacillin/Tazobactam AARON <=4 ug/ml: Susceptible Klebsiella pneumoniae ssp pneumoniae Cefazolin (Urine) AARON 2 ug/ml: Susceptible Klebsiella pneumoniae ssp pneumoniae Cefoxitin AARON <=4 ug/ml: Susceptible Klebsiella pneumoniae ssp pneumoniae Ceftazidime AARON <=0.5 ug/ml: Susceptible Klebsiella pneumoniae ssp pneumoniae Ceftriaxone AARON <=0.25 ug/ml: Susceptible Klebsiella pneumoniae ssp pneumoniae Cefepime AARON <=0.12 ug/ml: Susceptible Klebsiella pneumoniae ssp pneumoniae Meropenem AARON <=0.25 ug/ml: Susceptible Klebsiella pneumoniae ssp pneumoniae Amikacin AARON <=1 ug/ml: Susceptible Klebsiella pneumoniae ssp pneumoniae Gentamicin AARON <=1 ug/ml: Susceptible Klebsiella pneumoniae ssp pneumoniae Ciprofloxacin AARON 0.5 ug/ml: Intermediate Klebsiella pneumoniae ssp pneumoniae Levofloxacin AARON 1 ug/ml: Intermediate Klebsiella pneumoniae ssp pneumoniae Nitrofurantoin AARON 64 ug/ml: Intermediate Klebsiella pneumoniae ssp pneumoniae Trimethoprim/Sulfamethoxazo le AARON >=320 ug/ml: Resistant us Dakota Schroeder MD LAB MICROBIOLOGY - GENERAL ORDERABLES Final Result [facility] [address] [place] [address], [place] [phone] * CT Abdomen Pelvis wo Contrast (01/09/2025 6:03 PM EDT) Anatomical Region Laterality Modality Body Computed Tomogra phy 01/09/2025 6:37 PM EDT Impressions 01/09/2025 6:37 PM EDT 1. Left sided ureteral stent with no ureteral stones and no hydronephrosis or hydroureter. 2. Mild fullness of left renal pelvis and collecting system and perinephric stranding may represent pyelonephritis. Correlate clinically. Small left lymph nodes at the renal hilum nonspecific and could be reactive. 3. Bilateral nonobstructing renal stones. 4. Additional nonacute findings as described. This document has been electronically signed by: Cuca Quiñones MD on 01/09/2025 18:37:40 Narrative 01/09/2025 6:37 PM EDT INDICATION: Left flank pain CT abdomen and pelvis without contrast Comparison: CT - CT ABD PEL W CONTRAST - 12/26/24 22:28 EDT Findings: Limited evaluation without intravenous contrast. No consolidation or effusion. The gallbladder is unremarkable. No biliary ductal dilatation. The liver is enlarged and overall normal in attenuation. Unenhanced spleen is unremarkable. Unenhanced pancreas within normal limits. Adrenal glands are normal. Left-sided ureteral stent extending from left renal pelvis into the urinary bladder. Slight fullness of left renal collecting system and left renal pelvis with no hydronephrosis. No hydroureter. No left ureteral stones along the stent. There are 3 minimal punctate less than 3 mm left renal stones. Several nonobstructing right renal stones are demonstrated the largest 6 mm. Left perinephric stranding which is nonspecific. Pyelonephritis not excluded without intravenous contrast. Left renal hilum several lymph nodes the largest 1.7 cm x 1.4 cm, could be reactive but nonspecific. Stable bilateral lower pole small fat attenuation renal lesion suggestive of angiomyolipomas. No bowel obstruction, pneumoperitoneum, or pneumatosis. Appendix not clearly identified. No pericecal inflammatory changes. [id number]-[id number] colonic stool. Mild diverticulosis. Pelvic contents unremarkable. No free fluid. Very small fat containing umbilical hernia. Abdominal aorta normal in size No acute fracture. L5-S1 degenerative disc disease, facet arthropathy and grade 1 anterolisthesis. Procedure Note Cuca Quiñones MD - 01/09/2025 INDICATION: Left flank pain CT abdomen and pelvis without contrast Comparison: CT - CT ABD PEL W CONTRAST - 12/26/24 22:28 EDT Findings: Limited evaluation without intravenous contrast. No consolidation or effusion. The gallbladder is unremarkable. No biliary ductal dilatation. The liver is enlarged and overall normal in attenuation. Unenhancedspleen is unremarkable. Unenhanced pancreas within normal limits. Adrenal glands are normal. Left-sided ureteral stent extending from left renal pelvis into the urinary bladder. Slight fullness of left renal collecting system andleft renal pelvis with no hydronephrosis. No hydroureter. No left ureteral stones along the stent. There are 3 minimal punctateless than 3 mm left renal stones. Several nonobstructing right renal stones are demonstrated the largest 6 mm. Left perinephric stranding which is nonspecific. Pyelonephritis not excluded without intravenous contrast. Left renal hilum several lymph nodes the largest 1.7 cm x 1.4 cm, couldbe reactive but nonspecific. Stable bilateral lower pole small fat attenuation renal lesionsuggestive of angiomyolipomas. No bowel obstruction, pneumoperitoneum, or pneumatosis. Appendix not clearly identified. No pericecal inflammatory changes. Vnhm-fv-erxithkg colonic stool. Mild diverticulosis. Pelvic contents unremarkable. No free fluid. Very small fat containing umbilical hernia. Abdominal aorta normal in size No acute fracture. L5-S1 degenerative disc disease, facet arthropathyand grade 1 anterolisthesis. IMPRESSION: 1. Left sided ureteral stent with no ureteral stones and nohydronephrosis or hydroureter. 2. Mild fullness of left renal pelvis and collecting system and perinephric stranding may represent pyelonephritis. Correlateclinically. Small left lymph nodes at the renal hilum nonspecific and could be reactive. 3. Bilateral nonobstructing renal stones. 4. Additional nonacute findings as described. This document has been electronically signed by: Cuca Quiñones MD on 01/09/2025 18:37:40 Asim Shukla MD IMG CT PROCEDURES Final R esult * (ABNORMAL) Comprehensive metabolic panel (01/09/2025 4:21 PM EDT) Only the most recent of3 resultswithin the time period is included. Sodium 137 133 - 145 mmol/L LAB CHEMISTRY METHOD 01/09/2025 5:29 PM [facility] Potassium 3.6 3.5 - 5.5 mmol/L LAB CHEMISTRY METHOD 01/09/2025 5:29 PM [facility] Chloride 102 96 - 110 mmol/L LAB CHEMISTRY METHOD 01/09/2025 5:29 PM [facility] CO2 28 21 - 32 mmol/L LAB CHEMISTRY METHOD 01/09/2025 5:29 PM [facility] Anion Gap 7 3 - 11 LAB CHEMISTRY METHOD 01/09/2025 5:29 PM [facility] Glucose 176(H) 70 - 100 mg/dL LAB CHEMISTRY METHOD 01/09/2025 5:29 PM [facility] BUN 12 5 - 25 mg/dL LAB CHEMISTRY METHOD 01/09/2025 5:29 PM [facility] Creatinine 0.88 0.50 - 1.10 mg/dL LAB CHEMISTRY METHOD 01/09/2025 5:29 PM [facility] eGFR 73 >=60 mL/min/1. 73m2 LAB CHEMISTRY METHOD 01/09/2025 5:29 PM [facility] Comment:Calculation based on the Chronic Kidney Disease Epidemiology Collaboration (CKD-EPI) equation refit without adjustment for race. BUN/Creatinine Ratio 13.6 LAB CHEMISTRY METHOD 01/09/2025 5:29 PM [facility] Calcium 9.0 8.5 - 10.5 mg/dL LAB CHEMISTRY METHOD 01/09/2025 5:29 PM [facility] AST (SGOT) 31 10 - 42 unit/L LAB CHEMISTRY METHOD 01/09/2025 5:29 PM [facility] Comment:Results verified by repeat testing ALT (SGPT) 79(H) 10 - 60 unit/L LAB CHEMISTRY METHOD 01/09/2025 5:29 PM [facility] Comment:Results verified by repeat testing Alkaline Phosphatase 296(H) 42 - 121 unit/L LAB CHEMISTRY METHOD 01/09/2025 5:29 PM [facility] Total Protein 7.1 6.0 - 8.0 g/dL LAB CHEMISTRY METHOD 01/09/2025 5:29 PM [facility] Albumin 2.9(L) 3.2 - 5.0 g/dL LAB CHEMISTRY METHOD 01/09/2025 5:29 PM [facility] Total Bilirubin 0.4 0.0 - 1.4 mg/dL LAB CHEMISTRY METHOD 01/09/2025 5:29 PM [facility] Blood Venous blood specimen / Unknown Venipuncture / Unknown 01/09/2025 4:21 PM EDT 01/09/2025 4:38 PM EDT Dakota Schroeder MD LAB BLOOD ORDERABLES Final Result [facility] [address] [place] [address], [place] [phone] * Magnesium (01/01/2025 6:06 AM EDT) [facility] Magnesium 2.3 1.9 - 2.6 mg/dL LAB CHEMISTRY METHOD 01/01/2025 8:09 AM EDT [facility] Blood Venous blood specimen / Unknown Venipuncture / Unknown 01/01/2025 6:06 AM EDT 01/01/2025 6:26 AM EDT Albertina Arias MD LAB BLOOD ORDERABLES Final Resul t Performing Organization Address City/[facility]/ZIP Co de Phone Number [facility] [address] [place] [address], [place] [phone] * Lavender tube (01/01/2025 6:05 AM EDT) Only the most recent of2 resultswithin the time period is included. [facility] Extra Tube Hold for add-ons. 01/01/2025 8:01 AM EDT [facility] Comment:Auto resulted. Blood Venous blood specimen / Unknown Venipuncture / Unknown 01/01/2025 6:05 AM EDT 01/01/2025 6:28 AM EDT us Albertina Arias MD LAB BLOOD ORDERABLES Final Resul t [facility] [address] [place] [address], [place] [phone] * (ABNORMAL) Vancomycin, trough Please draw before 2000 dose (12/31/2024 7:00 PM EDT) Only the most recent of2 resultswithin the time period is included. [facility] Vancomycin Trough .3(H) 10.0 - 20.0 mcg/mL LAB CHEMISTRY METHOD 12/31/2024 7:42 PM EDT [facility] Blood Venous blood specimen / Unknown Venipuncture / Unknown 12/31/2024 7:00 PM EDT 12/31/2024 7:05 PM EDT Radha Alex MD LAB BLOOD ORDERABLES Final Result [facility] [address] [place] [address], [place] [phone] * TH AN LMA(NO CHARGE) (12/30/2024 6:48 PM EDT) Mabel Méndez CRNA - 12/30/2024 6:48 PM EDT Mabel Peters CRNA 12/30/2024 6:49 PM General Information and Staff Patient location during procedure: OR Performed: resident/[employer]/[facility] Performed by: Mabel Peters CRNA Authorized by: Luis Armando Perea MD Intubation Airway not difficult Reason: elective Final Airway Details Ventilation between attempts: BVM LMA Size: 4 LMA Type: Classic LMA Seal Pressure: Final airway type: LMA Indications and Patient Condition Indications for airway management: anesthesia and airway protection Sedation level: Yes Preoxygenated: yesSoft Tissue Damage: No Dentition Unchanged: Yes Patient position: neutral MILS maintained throughout Mask difficulty assessment: 1 - vent by mask Luis Armando Perea MD ANESTHESIA ORDERABLES Final Re sult * XR Urogram Retrograde (12/30/2024 6:44 PM EDT) Only the most recent of2 resultswithin the time period is included. Anatomical Region Laterality Modality Body Radio Fluoroscop y 12/31/2024 7:48 AM EDT Narrative 12/31/2024 7:49 AM EDT Fluoroscopic spot radiographs obtained during a left endourologic procedure are submitted. No radiologist consultation was requested or provided during this procedure and there is no radiologist professional charge. This report is generated for documentation purposes only. The dose-area product for this procedure was 3.4233 Gy*cm2. PQRI CPT II G9500 -------- FINAL REPORT -------- Dictated By: Jono Su Dictated Date: 12/31/2024 07:48 ET Assigned Physician: Jono Su Reviewed and Electronically Signed By: Jono Su Signed Date: 12/31/2024 07:49 ET Workstation ID: [id number] Transcribed By: Self Edit Transcribed Date: 12/31/2024 07:48 ET Procedure Note Jono Su MD - 12/31/2024 Fluoroscopic spot radiographs obtained during a left endourologicprocedure are submitted. No radiologist consultation was requested orprovided during this procedure and there is no radiologist professionalcharge. This report is generated for documentation purposes only. The dose-area product for this procedure was 3.4233 Gy*cm2. PQRI CPT II G9500 -------- FINAL REPORT -------- Dictated By: Jono Su Dictated Date: 12/31/2024 07:48 ET Assigned Physician: Jono Su Reviewed and Electronically Signed By: Jono Su Signed Date: 12/31/2024 07:49 ET Workstation ID: [id number] Transcribed By: Self Edit Transcribed Date: 12/31/2024 07:48 ET Deandre Ohara MD IMG FLUOROSCOPY PROCEDURES Final Result * SST tube (12/28/2024 8:50 AM EDT) Extra Tube Hold for add-ons. 12/28/2024 11:01 AM EDT [facility] Comment:Auto resulted. Blood Venous blood specimen / Unknown Venipuncture / Unknown 12/28/2024 8:50 AM EDT 12/28/2024 9:06 AM EDT Radha Alex MD LAB BLOOD ORDERABLES Final Result [facility] [address] [place] [address], [place] [phone] * Lactate (12/27/2024 6:15 AM EDT) Only the most recent of3 resultswithin the time period is included. Lactate 1.0 0.4 - 2.0 mmol/L LAB CHEMISTRY METHOD 12/27/2024 7:39 AM EDT [facility] Blood Venous blood specimen / Unknown Venipuncture / Unknown 12/27/2024 6:15 AM EDT 12/27/2024 7:07 AM EDT us Linda NOVAK LAB BLOOD ORDERABLES Final Re sult [facility] [address] [place] [address], [place] [phone] * CT Abdomen Pelvis w Contrast (12/26/2024 10:30 PM EDT) Only the most recent of2 resultswithin the time period is included. Anatomical Region Laterality Modality Body Computed Tomogra phy 12/26/2024 11:3 6 PM EDT Impressions 12/26/2024 11:36 PM EDT 1. Findings suggesting left pyelonephritis. No abscess. 2. Fatty hepatomegaly. This document has been electronically signed by: Addie Talbert MD on 12/26/2024 23:36:49 Narrative 12/26/2024 11:36 PM EDT INDICATION: Flank pain, pyelonephritis, hematuria, left ureteral stent CT abdomen and pelvis with contrast Comparison: CT - CT ABD PEL W CONTRAST - 11/26/24 20:00 EDT Findings: Mild atelectasis at both lung bases. New line no pleural effusions. Fatty hepatomegaly. Adequate position of left double pigtail ureteral stent. No hydronephrosis. 1 mm nonobstructing left mid renal stone. There is new left perinephric fat stranding. There is subtle heterogeneity of the left renal parenchymal enhancement. Left inferior angiomyolipoma 1.5 cm, and right lower renal angiomyolipoma 2.9 cm. There are a few nonobstructing right renal stones no larger than 3 mm. Gallbladder and solid organs otherwise unremarkable. No bowel obstruction, pneumoperitoneum, or pneumatosis. Moderate stool. Uterus and ovaries unremarkable. Normal appendix. Grade 1 degenerative spondylolisthesis L5-S1. No acute fracture. Procedure Note Addie Talbert MD - 12/26/2024 INDICATION: Flank pain, pyelonephritis, hematuria, left ureteral stent CT abdomen and pelvis with contrast Comparison: CT - CT ABD PEL W CONTRAST - 11/26/24 20:00 EDT Findings: Mild atelectasis at both lung bases. New line no pleural effusions. Fatty hepatomegaly. Adequate position of left double pigtail ureteral stent. No hydronephrosis. 1 mm nonobstructing left mid renal stone. There is new left perinephric fat stranding. There is subtle heterogeneity of theleft renal parenchymal enhancement. Left inferior angiomyolipoma 1.5 cm, and right lower renalangiomyolipoma 2.9 cm. There are a few nonobstructing right renal stones no larger than 3 mm. Gallbladder and solid organs otherwise unremarkable. No bowel obstruction, pneumoperitoneum, or pneumatosis. Moderate stool. Uterus and ovaries unremarkable. Normal appendix. Grade 1 degenerative spondylolisthesis L5-S1. No acute fracture. IMPRESSION: 1. Findings suggesting left pyelonephritis. No abscess. 2. Fatty hepatomegaly. This document has been electronically signed by: Addie Woodruff MD on 12/26/2024 23:36:49 us Nain Cartagena MD IM CT PROCEDURES Final Resu lt * (ABNORMAL) Blood culture pathogens molecular study (12/26/2024 8:55 PM EDT) Staphylococcus species Detected (A) Not Detected LAB MICROBIOLOGY METHOD 12/28/2024 5:55 AM EDT [facility] Blood Venous blood specimen / Unknown Venipuncture / Unknown 12/26/2024 8:55 PM EDT 12/26/2024 9:01 PM EDT us Nain W Lawrenz MD LAB MICROBIOLOGY - GENERAL O RDERABLES Final Result [facility] [address] [place] [address], [place] [phone] * (ABNORMAL) Urinalysis with reflex microscopic (12/26/2024 7:37 PM EDT) Specific [place] Urine 1.011 1.003 - 1.030 LAB URINALYSIS - AUTOMATED METHOD 12/26/2024 8:26 PM EDT [facility] pH, Urine 7.5 5.0 - 8.0 pH LAB URINALYSIS - AUTOMATED METHOD [facility]24 [facility] Leukocytes, Urine Large(A) Negative LAB URINALYSIS - AUTOMATED METHOD 12/26/2024 8:26 PM [facility] Nitrite, Urine Positive(A) Negative LAB URINALYSIS - AUTOMATED METHOD 12/26/2024 8:26 PM [facility] Protein, Urine 100(A) <=Trace mg/dL LAB URINALYSIS - AUTOMATED METHOD 12/26/2024 8:26 PM [facility] Glucose, Urine Negative Negative mg/dL LAB URINALYSIS - AUTOMATED METHOD 12/26/2024 8:26 PM [facility] Ketones, Urine Negative Negative mg/dL LAB URINALYSIS - AUTOMATED METHOD 12/26/2024 8:26 PM [facility] Urobilinogen , Urine 0.2 0.2 - 1.0 mg/dL LAB URINALYSIS - AUTOMATED METHOD 12/26/2024 8:26 PM [facility] Bilirubin, Urine Negative Negative LAB URINALYSIS - AUTOMATED METHOD 12/26/2024 8:26 PM [facility] Blood, Urine Moderate(A) Negative LAB URINALYSIS - AUTOMATED METHOD 12/26/2024 8:26 PM [facility] RBC, Urine 23.1(H) 0 - 4 /HPF LAB URINALYSIS - AUTOMATED METHOD 12/26/2024 8:26 PM EDT [facility] WBC, Urine 246.4(H) 0 - 4 /HPF LAB URINALYSIS - AUTOMATED METHOD 12/26/2024 8:26 PM EDT [facility] Squamous Epithelial, Urine 33 0 - 60 /LPF LAB URINALYSIS - AUTOMATED METHOD 12/26/2024 8:26 PM EDT [facility] Bacteria, Urine Moderate(A) Negative /HPF LAB URINALYSIS - AUTOMATED METHOD 12/26/2024 8:26 PM EDT [facility] Hyaline Casts, Urine 0.8 0 - 3 /LPF LAB URINALYSIS - AUTOMATED METHOD 12/26/2024 8:26 PM EDT [facility] Urine Urine specimen obtained by clean catch procedure / Unknown Non-blood Collection / Unknown 12/26/2024 7:37 PM EDT 12/26/2024 8:03 PM EDT us Nain Cartagena MD LAB URINE ORDERABLES Final R esult [facility] [address] [place] [address], * XR Shoulder 2+ Views Left (12/05/2024 10:33 AM EDT) Anatomical Region Laterality Modality Upper Extremities, Shoulder Left Comp uted Radiography Narrative 12/05/2024 11:16 AM EDT Date of Visit: 12/05/24 Reason for visit: Left shoulder pain Views: AP, Grashey, Y-view, and Axillary left shoulder Comparison: 06/30/24 Findings: Humeral head appears smooth. Glenohumeral joint space and articular margins are intact. Scapular Y and axillary views show the glenohumeral joint located and centered No unusual calcifications. No fractures/ dislocations noted Impression: Left shoulder: Intact left shoulder No acute osseous pathology Read by: Genny VAUGHNC Genny NOVAK IMG XR PROCEDURES Final Resul t * Insert Midline (12/01/2024 12:45 PM EDT) Paula Clayton RN - 12/01/2024 12:45 PM EDT Paula Lemus RN 12/01/2024 1:11 PM Midline Insertion Procedure Note Procedure: Insertion of 4F single lumen Bard PowerMidline Lot: [id number] Exp: 2025-03-11 Indications: Meropenem Procedure Details: Maximum sterile technique was used including antiseptics, cap, gloves, gown, hand hygiene, mask, and sheet. US guidance utilized, vein easily accessed and catheter advanced smoothly upon first attempt. Two wires intact and discarded. 1% Lidocaine 2 ml sc administered. 4F Midline inserted to the Left Cephalic vein per hospital protocol. Flushes smoothly with good blood return. Findings: Catheter cut at 13 cm and inserted to 13 cm with 0 cm exposed. Mid upper arm circumference is 49 cm. There were no changes to vital signs. Catheter was flushed with 10 cc NS and sterile CVC dressing with Biopatch applied. Patient did tolerate procedure well. Recommendations: May use line for lab draws. Brochure given to patient with teaching instruction. Mague Shahid MD IV THERAPY ORDERABLES Final Resu lt * TH AN LMA(NO CHARGE) (11/27/2024 5:13 PM EDT) Narrative Adrian Gonzales CRNA - 11/27/2024 5:13 PM EDT Adrian Gonzales CRNA 11/27/2024 5:14 PM General Information and Staff Patient location during procedure: OR Performed by: Adrian Gonzales CRNA Authorized by: Lcuas Palma MD Intubation Airway not difficult Urgency: elective Final Airway Details Number of attempts at approach: 1 Ventilation between attempts: none LMA Size: 5 LMA Type: Classic LMA Seal Pressure: Final airway type: LMA Indications and Patient Condition Indications for airway management: anesthesia Spontaneous ventilation: present Sedation level: Yes Preoxygenated: yes Soft Tissue Damage: No Dentition Unchanged: Yes Patient position: neutral MILS maintained throughout Mask difficulty assessment: 0 - not attempted Start Time: 11/27/2024 5:06 PMStop Time: 11/27/2024 5:06 PM Lucas Palma MD ANESTHESIA ORDERABLES Final Re sult * Thyroid stimulating hormone with reflex to free t4 and free t3 (11/26/2024 6:06 PM EDT) TSH 0.54 0.40 - 4.00 mcIU/mL LAB CHEMISTRY METHOD 11/27/2024 1:14 AM EDT [facility] Blood Venous blood specimen / Unknown Venipuncture / Unknown 11/26/2024 6:06 PM EDT 11/26/2024 6:35 PM EDT Mehdi NOVAK LAB BLOOD ORDERABLES Soni l Result Performing Organization Address [facility]/ZIP Co de Phone Number [facility] [address] [place] [address], [place] [phone] * External CT Report (11/14/2024) Anatomical Region Laterality Modality Computed Tomogra phy Provider [facility] IMG CT PROCEDURES Final Result * Creatinine (11/12/2024 11:10 AM EDT) Creatinine 1.01 0.50 - 1.10 mg/dL LAB CHEMISTRY METHOD 11/13/2024 10:37 AM EDT [facility] eGFR 62 >=60 mL/min/1. 73m2 LAB CHEMISTRY METHOD 11/13/2024 10:37 AM EDT [facility] Comment:Calculation based on the Chronic Kidney Disease Epidemiology Collaboration (CKD-EPI) equation refit without adjustment for race. Blood Venous blood specimen / Unknown 11/12/2024 11:10 AM EDT 11/13/2024 9:43 AM EDT Heriberto Rodriguez MD LAB BLOOD ORDERABLES Final Resul t Performing Organization Address City/[facility]/ZIP Co de Phone Number [facility] [address] [place] [address], [place] [phone] * BUN (11/12/2024 11:10 AM EDT) BUN 13 5 - 25 mg/dL LAB CHEMISTRY METHOD 11/13/2024 10:37 AM EDT [facility] Blood Venous blood specimen / Unknown 11/12/2024 11:10 AM EDT 11/13/2024 9:43 AM EDT us Heriberto Rodriguez MD LAB BLOOD ORDERABLES Final Resul t [facility] [address] [place] [address], [place] [phone] * MG Mammo Digital Diagnostic w Delta bilat (10/22/2024 9:27 AM EDT) Anatomical Region Laterality Modality Breast Bilateral Mammography 10/22/2024 10:1 4 AM EDT Impressions 10/22/2024 10:20 AM EDT 1. No mammographic or sonographic evidence of malignancy 2. Scattered fibroglandular tissue Findings and recommendations were conveyed to the patient. BI-RADS CATEGORY: 2 - BENIGN RECOMMENDATION: Return to annual mammography. Return to annual mammography. Mammo Location: [facility], [address] [place] [address], [address], . -------- FINAL REPORT -------- Dictated By: Malathi Pak Dictated Date: 10/22/2024 10:14 ET Assigned Physician: Malathi Pak Reviewed and Electronically Signed By: Malathi Pak Signed Date: 10/22/2024 10:20 ET Workstation ID: [id number] Transcribed By: Self Edit Transcribed Date: 10/22/2024 10:14 ET Narrative 10/22/2024 10:20 AM EDT BILATERALDIGITAL DIAGNOSTIC 3D MAMMOGRAPHY HISTORY: Workup for bilateral medial breast pain and generalized bilateral breast pain COMPARISON: Multiple mammograms dating back to 11/14/2019 Technique: Bilateral CC and MLO full field views were performed FINDINGS: Right: No suspicious masses, microcalcifications or areas of architectural distortion. Typically benign stable parenchymal asymmetries. Left: No suspicious masses, microcalcifications or areas of architectural distortion. Typically benign stable parenchymal asymmetries. BREAST DENSITY: B - There are scattered areas of fibroglandular density. EXAM: BILATERAL BREAST TARGETED ULTRASOUND EVALUATION HISTORY: Workup for bilateral medial breast pain TECHNIQUE: Ultrasonographic examination is performed using a linear array transducer. Targeted right breast ultrasound from 4:00 to 6:00 in area of clinical pain and left breast 6:00 to 9:00 in area of clinical pain Real-time sonographic scanning was also performed by the radiologist FINDINGS:: Right: From 4:00 to 6:00, no sonographic evidence of malignancy or other focal abnormalities were identified at the right breast in area of clinical concern Left: From 6:00 to 9:00 ,no sonographic evidence of malignancy or other focal abnormalities were identified at the left breast in area of clinical concern Procedure Note Malathi Pak MD - 10/22/2024 BILATERALDIGITAL DIAGNOSTIC 3D MAMMOGRAPHY HISTORY: Workup for bilateral medial breast pain and generalized bilateralbreast pain COMPARISON: Multiple mammograms dating back to 11/14/2019 Technique: Bilateral CC and MLO full field views were performed FINDINGS: Right: No suspicious masses, microcalcifications or areas of architecturaldistortion. Typically benign stable parenchymal asymmetries. Left: No suspicious masses, microcalcifications or areas of architecturaldistortion. Typically benign stable parenchymal asymmetries. BREAST DENSITY: B - There are scattered areas of fibroglandular density. EXAM: BILATERAL BREAST TARGETED ULTRASOUND EVALUATION HISTORY: Workup for bilateral medial breast pain TECHNIQUE: Ultrasonographic examination is performed using a linear arraytransducer. Targeted right breast ultrasound from 4:00 to 6:00 in area ofclinical pain and left breast 6:00 to 9:00 in area of clinical painReal-time sonographic scanning was also performed by the radiologist FINDINGS:: Right: From 4:00 to 6:00, no sonographic evidence of malignancy or other focalabnormalities were identified at the right breast in area of clinicalconcern Left: From 6:00 to 9:00 ,no sonographic evidence of malignancy or other focalabnormalities were identified at the left breast in area of clinicalconcern IMPRESSION: 1. No mammographic or sonographic evidence of malignancy 2. Scattered fibroglandular tissue Findings and recommendations were conveyed to the patient. BI-RADS CATEGORY: 2 - BENIGN RECOMMENDATION: Return to annual mammography. Return to annual mammography. Mammo Location: [facility], [address] [place] [address], [address], . -------- FINAL REPORT -------- Dictated By: Malathi Pak Dictated Date: 10/22/2024 10:14 ET Assigned Physician: Malathi Pak Reviewed and Electronically Signed By: Malathi Pak Signed Date: 10/22/2024 10:20 ET Workstation ID: [id number] Transcribed By: Self Edit Transcribed Date: 10/22/2024 10:14 ET Paula NOVAK IMG BI PROCEDURES Final Result * (ABNORMAL) Lipid panel with reflex to direct LDL (10/02/2024 11:32 AM EDT) Cholesterol 163 0 - 200 mg/dL LAB CHEMISTRY METHOD 10/02/2024 2:54 PM EDT [facility] Triglycerides 171(H) 0 - 150 mg/dL LAB CHEMISTRY METHOD 10/02/2024 2:54 PM EDT [facility] HDL 36(L) >=40 mg/dL LAB CHEMISTRY METHOD 10/02/2024 2:54 PM EDT [facility] LDL Calculated 93 0 - 100 mg/dL LAB CHEMISTRY METHOD 10/02/2024 2:54 PM EDT [facility] VLDL Cholesterol Aaron 34.2 mg/dL LAB CHEMISTRY METHOD 10/02/2024 2:54 PM EDT [facility] Non HDL Chol. (LDL+VLDL) 127 <145 mg/dL LAB CHEMISTRY METHOD 10/02/2024 2:54 PM EDT [facility] Chol/HDL Ratio 4.5(H) 0.0 - 4.4 LAB CHEMISTRY METHOD 10/02/2024 2:54 PM EDT [facility] Blood Venous blood specimen / Unknown Venipuncture / Unknown 10/02/2024 11:32 AM EDT 10/02/2024 11:32 AM EDT Paula NOVAK LAB BLOOD ORDERABLES Final Resu lt Performing Organization Address [facility]/ZIP Co de Phone Number [facility] [address] [place] [address], [place] [phone] * (ABNORMAL) Microalbumin creatinine urine ratio (10/02/2024 11:32 AM EDT) Creatinine, Urine 52.0 mg/dL LAB CHEMISTRY METHOD 10/02/2024 6:16 PM EDT [facility] Microalb, Ur 23.2 0.0 - 29.0 mg/L LAB CHEMISTRY METHOD 10/02/2024 6:16 PM EDT [facility] Microalb/Creat Ratio 45(H) <30 mg/g creat LAB CHEMISTRY METHOD 10/02/2024 6:16 PM EDT [facility] Urine Urine specimen obtained by clean catch procedure / Unknown Non-blood Collection / Unknown 10/02/2024 11:32 AM EDT 10/02/2024 11:32 AM EDT Paula NOVAK LAB URINE ORDERABLES Final Resu lt Performing Organization Address [facility]/ZIP Co de Phone Number [facility] [address] [place] [address], [place] [phone] * External Diabetic Retina Eye Exam Report (08/26/2024 10:09 AM EDT) Anatomical Region Laterality Modality Ultrasound Historical Provider MD ASCENCIO US PROCEDURES Final R esult * COLONOSCOPY Anesthesia - MAC; [facility] ENDOSCOPY (08/21/2024 8:42 AM EDT) Anatomical Region Laterality Modality Endoscopy 08/21/2024 8:31 AM EDT Impressions 08/21/2024 8:43 AM EDT - One 5 mm polyp in the sigmoid colon, removed with a cold snare. Resected and retrieved. - Internal hemorrhoids. Recommendation: - Await pathology results. - Repeat colonoscopy in 10 years for surveillance. Narrative 08/21/2024 8:43 AM EDT [facility] Patient Name: Ana Luisa Bowman Procedure [...] verified by the physician, the nurse, the warehouse incentive selector and the physical therapist technician in the pre-procedure area in the [...] reduce spontaneously). Procedure Code(s): --- Professional --- 71867, Colonoscopy, flexible; with removal of tumor(s), polyp(s), or other lesion(s) by snare technique Diagnosis Code(s): --- Professional --- D12.5, Benign neoplasm of sigmoid colon CPT copyright 2020 [employer]. All rights reserved. The codes documented in this report are preliminary and upon benefit authorizer review may be revised to meet current compliance requirements. Dena Carrasco MD 08/21/2024 8:43:30 AM This report has been signed electronically.Dena Carrasco MD Number of Addenda: 0 Note Initiated On: 08/21/2024 8:31 AM Scope Withdrawal Time: 0 hours 6 minutes 6 seconds Scope In: 8:35:30 AM Scope Out: 8:43:34 AM Endoscopy Department at [facility] - [address] [place] [phone] Procedure Note Dena Carrasco MD - 08/21/2024 [facility] Patient Name: Ana Luisa Bowman Procedure [...] the physician, the nurse, theanesthetist and the physical therapist technician in the pre-procedure area in the [...] reduce spontaneously). Procedure Code(s): --- Professional --- 05784, Colonoscopy, flexible; with removal of tumor(s), polyp(s), or other lesion(s) by snare technique Diagnosis Code(s): --- Professional --- D12.5, Benign neoplasm of sigmoid colon CPT copyright 2020 [employer]. All rights reserved. The codes documented in this report are preliminary and upon benefit authorizer reviewmay be revised to meet current compliance requirements. Dena Carrasco MD 08/21/2024 8:43:30 AM This report has been signed electronically.Dena Carrasco MD Number of Addenda: 0 Note Initiated On: 08/21/2024 8:31 AM Scope Withdrawal Time: 0 hours 6 minutes 6 seconds Scope In: 8:35:30 AM Scope Out: 8:43:34 AM Endoscopy Department at [address] [phone] IMPRESSION: - One 5 mm polyp in the sigmoid colon, removed with a cold snare. Resected and retrieved. - Internal hemorrhoids. Recommendation: - Await pathology results. - Repeat colonoscopy in 10 years forsurveillance. Result [facility] Dena Carrasco MD GI~PROCEDURE ORDERABLES Fin al Result * Falls Risk Assessment (10/01/2023) [facility] Falls Risk Assessment Abstracted Historical Provider HEALTH MAINTENANCE Final Result * Depression Screening (10/01/2023) Pathologist [facility] Depression Screening Abstracted Historical Provider HEALTH MAINTENANCE Final Result * Diabetes Foot Exam (10/01/2023) [facility] Diabetes: Annual Foot Exam Abstracted Historical Provider HEALTH MAINTENANCE Final Result * [...] classified as having normal bone density. The [facility] Department of Internal Medicine recommends [...] beclassified as having normal bone density. The [facility] Department of Internal Medicine recommendsusing [...] MD IMG DXA PROCEDURES Final Result * Hepatitis C Screening (09/22/2014) [facility] Hepatitis C Screening Abstracted Historical Provider HEALTH MAINTENANCE Final Result from Last 3 Months or Most Recently Relevant to Health Maintenance Insurance [facility] Member Subscriber Plan / Payer (Ef fective 2024-Present) Name:Ana Luisa Clayton Relation to Subscriber:Self Name:Ana Luisa House Payer ID:[id number] Group ID:[id number] Type:Not on file Address: [place] [address] [address] [phone] Advance Directives Documents on File Type Date Recorded 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 Do not modify or discontinue any currently active code status orders. * Full Code - Default Date Activated Date Inactivated Comments 12/27/2024 12:23 AM 01/01/2025 3:20 PM This is o rder is used when code status has not been discussed with the patient, or code status is otherwise unknown/unconfirmed To update the patient's code status, place a code status order. Do not modify or discontinue any currently active code status orders. * Full Code - Default Date Activated Date Inactivated Comments 11/26/2024 9:32 PM 12/02/2024 3:49 PM This is orde r is used when code status has not been discussed with the patient, or code status is otherwise unknown/unconfirmed To update the patient's code status, place a code status order. Do not modify or discontinue any currently active code status orders. Healthcare Agents on File Name Relationship Healthcare Agent Relationship Communication Ana Luisa Davila Daughter First Alternate Health Care Agent [email or web address] Paco Mehta Other Second Alternate Health Care Agent Care Teams Day Haul Youth Supervisor Relationship Specialty Start Date End Date Ora Sweeney MD [address] [place] [phone] PCP - General Internal Medicine 01/09/24
--- OUTSIDE RECORDS SUMMARY | 2025-01-30 09:49 | XMS_ITS | Continuity of Care Document ---
Author Name instED, Medical Address [address] [place] [address] Organization Unknown Address [address] [place] [address] Medications No known medications Problems No known problems
--- OUTSIDE RECORDS SUMMARY | 2025-01-30 09:49 | XMS_ITS | Encounter Summary ---
Author Organization [facility] Address [address] [place] [address] Care Team Providers Care Lambskin Trimmer Name Role Phone Ora Sweeney MD Primary Care Prov ider Reason for Visit * Reason Onset Date Comments orders 01/19/2025 [id number] Encounter Details Date Type Department Care Team ([facility] st Contact Info) Description 01/19/2025 Telephone Adult Medicine [address] [phone] Ora Sweeney MD [address] [place] [address] Social History Tobacco Use Types Packs/Day Years [...] your loved ones. 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 Placed in inbox documented in this encounter Plan of Treatment Upcoming Encounters Date Type Department Care Team (Late st Contact Info) Description 02/02/2025 1:30 PM EST Office Visit Adult [address] [phone] Ora Sweeney MD [address] [place] [address] 02/24/2025 9:30 AM EST Office Visit Adult Medicine [address] [phone] Paula Garnica PA [address] [place] [address] 03/18/2025 8:30 AM EST Office Visit Orthopedic Surgery - [place] [address] [phone] Duke Dunn, DPM [address] [address] 04/01/2025 10:00 AM EST Office Visit Gastroenterology - 299 [facility] [address] [phone] Alivia Dominguez, DONN [address] [address] 05/04/2025 10:00 AM EST Office Visit Endocrinology [address] [phone] Myrna Hussein MD [address] [place] [address] 09/22/2025 9:30 AM EDT Office Visit Pulmonology [facility] 175 [facility] [address] [place] [phone] Pretty Le MD [address] [place] [phone] 10/01/2025 11:30 AM EDT Office Visit Adult Medicine [address] [phone] Ora Sweeney MD [address] [place], [place] 01/20/2026 9:30 AM EST Office Visit [facility] [address] [phone] Unruly Ferrera MD [address] [place] [address] documented as of this encounter Visit Diagnoses Not on filedocumented in this encounter Additional Health Concerns Assessment Noted Time PHQ-9 Depression Total Score: 1 08/21/19 25 8:45 AM EDT documented as of this encounter Care Teams Lambskin Trimmer Relationship Specialty Start Date End Date Oar Sweeney MD [address] [place], [place] PCP - General Internal Medicine 01/09/24 documented as of this encounter
--- OUTSIDE RECORDS SUMMARY | 2025-01-30 09:50 | XMS_ITS | Data Portability ---
Author Organization [facility], [address] Address [address] [place] [address] Assessment No assessment recorded. Plan of Treatment Reminders Order Date Submit Date Provider Last Modified By Organization Details Last Modified Time Details Appointments None recorded. Lab rapid flu (A+B) 2021 marva zhang13 [address] [address], [address] [place], [address], 14:02:10 rapid SARS CoV 2 Ag, QL IA, respiratory specimen 2021 [facility]13 [address] [address], [address] [place], [address], 14:02:10 Referral None recorded. Procedures None recorded. Surgeries None recorded. Imaging None recorded. Medication Orders Tamiflu 75 mg capsule 2021 [facility]/Pharmacy #[id number], [phone] [place], [address], 03:31:38 promethazin e-DM 6.25 mg-15 mg/5 mL oral syrup 2021 [facility]/Pharmacy #[id number], [phone] [place], [address], 14:02:13 Patient TargetsNo targets recorded. Patient Instructions Encounter Date Encounter Id Patient Instructions Last Modified By Organization Details Last Modified Time 02/20/2022 [id number] You should follow-up with your PCP in [...] y speci men Unknown Analyte Not Available [id number] [place] [address] [address] [place], [address], 02/20/2022 13:38:01 02/21/20 22 02/20/2022 rapid SARS CoV 2 Ag, QL IA, respi rator y speci men Unknown Analyte negati ve Not Available [address] [place], [address], 02/20/2022 13:38:01 02/21/20 22 02/20/2022 rapid flu (A+B) Unknown Analyte negati ve Not Available [address] [place], [address], 02/20/2022 13:24:32 02/21/20 22 02/20/2022 rapid flu (A+B) Unknown Analyte Normal = Negati ve Not Available [address] [place], [address], 02/20/2022 13:24:32 02/21/20 22 02/20/2022 rapid flu (A+B) Unknown Analyte negati ve Not Available [address] [place], [address], 02/20/2022 13:24:32 02/21/20 22 02/20/2022 rapid flu (A+B) Unknown Analyte Normal = Negati ve Not Available [address] [facility], [place], [address], 02/20/2022 13:24:32 Result Notes None recorded. Problems Name Problem SNOMED Code Status Onset Date Resolution Date Notes Provider Name and Address Organization Details Recorded Time Hypertensive disorder 80043152 Active 2021 Layne Trevino null, PA - [facility] 2 13:21:27 Hyperlipidemia 55071027 Active 2021 Laynetristen Trevino null, PA - [facility] 2 13:21:42 Thyroiditis 58087956 Active 2021 Layne Trevino null, PA - [facility] 2 13:21:59 Environmental allergy 631963848 Active 2021 Layne Trevino null, PA - [facility] 2 13:22:12 Migraine 18964293 Active 2021 Layne Trevino null, PA - [facility] 2 13:22:21 Diabetes mellitus 13093806 Active 2021 Layne Trevino null, PA - [facility] 2 13:22:34 Asthma 088795090 Active 2021 Layne Trevino null, PA - [...] Name and Address Organization Details Recorded Time 98384 Product containin g penicilli n (product) medicatio n swelling Not available high 02/20/2022 69218 8001 SNOMED Layne Trevino null, PA - [facility] 2 13:13:07 60577 Duricef medicatio n swelling Not available Not available 02/20/2022 19933 6 RxNorm Layne Trevino null, PA - [facility] 2 13:13:25 26738 Medrol medicatio n swelling Not available Not available 02/20/202265884 2 RxNorm Laynedelbert Trevino null, PA - [facility] 2 13:13:43 63390 oxycodone medicatio n Not available Not available Not available 02/20/2022 7804 RxNorm Layne Trevino null, PA - [facility] 2 13:13:52 59674 chocolate flavor food,medi cation Not available Not available Not available 02/20/2022 Lyane Trevino null, PA - [facility] 2 13:14:02 16139 almond allergeni c extract food Not available Not available Not available 02/20/2022 53082 7 RxNorm Layne Trevino null, PA - [facility] 2 13:14:09 98125 Canis lupus familiari s extract environme nt Not available Not available Not available 02/20/2022 74861 4 RxNorm Layne Rtevino null, PA - [facility] 2 13:14:18 62037 cat dander environme nt Not available Not available Not available 02/20/2022 Layne Trevino null, PA - [facility] 2 13:14:22 45683 rabbit dander environme nt Not available Not available Not available 02/20/2022 Layne Trevino null, PA - [facility] 2 13:14:29 54821 latex environme nt,medica tion Not available Not available Not available 02/20/2022 64630 91 RxNorm Layne Trevino null, PA - [facility] 2 13:14:36 90747 house dust mite environme nt Not available Not available Not available 02/20/2022 Layne simeon, PA - [facility] 2 13:14:44 50137 POLLEN EXTRACTS environme nt,medica tion Not available Not available Not available 02/20/2022 28424 6 RxNorm Layne simeon, PA - [facility] 2 13:14:56 25906 grass pollen environme nt,medica tion Not available Not available Not available 02/20/2022 Layne simeon, PA - [facility] 2 13:15:03 64151 ethinyl estradiol / levonorge strel medicatio n Not available Not available Not available 02/20/2022 81226 8 RxNorm Layne Trevino null, PA - [...] Updated DateTime 2 162.56 cm 44.6 kg/m2 875733. 02 g 100 % 100 % 85 /min 20 /min 98.8 [degF] 159/88 mm[Hg] Layne Cotto [facility] 13:12:06 Social History Question Answer Notes LastModified by Organizat ion Details LastModified Time Tobacco Smoking Status Never Smoker [facility] 02/20/2022 13:23:07 Have You Had Direct Contact, Or Contact During Intimacy, With Monkeypox Rash, Scabs, Or Body Fluids From A Person With Monkeypox? No [email or web address] Information not available 02/20/2022 Have You Recently Traveled Abroad? No [email or web address] Information not available 02/20/2022 Sex: Unknown Functional Status Question Answer Note LastModified by Organizat ion Details LastModified Time Do you use any illicit or recreational drugs? No [email or web address] Information not available 02/20/2022 What is your level of alcohol consumption? Occasional [email or web address] Information not available 02/20/2022 Mental Status None [...] Diagnosis SNOMED-CT Code Diagnosis ICD10 Code Diagnosis IMO Codes Diagnosis Note [id number] [address] [address] [place] [address] 04/01/2019 17:17:25 04/01/2019 18:28:03 [id number] Evelina miller MD [address] [place] [address] 02/20/2022 12:02:53 02/20/2022 14:03:53 Generalized aches and pains 97384098 R52 Viral syndrome 828417099 B34.9 Health Concerns Section Related Observation LastModified by Organization Detai ls LastModified Time None Recorded Concern Status LastModified by Organization Details LastModified Time None Recorded Advance Directives Directive None Recorded Payers Insurance Date Sequence Insurance Name Policy Number Policy Saleh Covered Member ID Saleh Member ID Guarantor Name 02/20/2022 1 [facility] (MEDICAID REPLACEMENT - HMO) MAGDI Easonra Ene Hailes [id number] Ana Luisa Ene Harsh Notes Date Note Type Note Provider Name and Address Organization Details Recorded Time 02/20/2022 text/html CoughReported by PatientHPIFor quality, patient reportsproductive coughanddry and wet. For associated symptoms, patient reportshurts to breathbut reportsno chills,no chest pain,no heartburn,no nausea,no vomiting,no edema,no agitation,no wheezing, andno post nasal drip. For source of patient information, patient reportsinformation obtained from patient,patient arrived at urgent care using walker, andlearning styles: auditory. For severity, patient reportsmoderate. For duration, patient reportsconstant. For timing, patient reportsconstant. For context, patient reportsfamily members ill with similar symptoms. Evelina Xiao MD [address] [place], [address], [place] - [facility] 02/20/2022 20:29:48 OBGyn Episode No OBEpisode recorded.
--- OUTSIDE RECORDS SUMMARY | 2025-01-30 09:50 | XMS_ITS | Encounter Summary ---
Author Organization [facility] Address [address] [place] [address] Encounters * CPT with Medical instED at [employer] on 2024-10-24 { reasonForRequest : severe acid reflux with vomitting , patientReports&quo t;: Vague abdominal pain greater than 24 hours; Diarrhea no blood in stool; Nausea with orwithout vomiting; Inability to tolerate foods, fluids or daily medications , denies :[ Sharp focal or diffuse abdominal pain , Vomiting blood/coffee ground material", Bloating, jaundice new onset with pain , Nausea and vomiting greater than 2 hourswith abdominal pain , Tearing pain that radiates to back , Food Impaction , Constipation ], chiefComplaints : Nausea / Vomiting , pmh : Hypertension, Diabetes Mellitus Type 2, Gastroesophageal Reflux Disease (GERD), Hypothyroidism , Asthma , allergies : Penicillins, Duricef, Medrol , otherAllergies&q uot;:null, painAssessment : , visitOutcome : , additionalComments : 64 y.o female complains of Nausea / Vomiting\n\nSevere acid reflux with vomiting \nStarted two days ago - yesterday and today much worse\nVomited twice last night, dry heaving today \nDrinking a good amount of fluids - reduced PO intake because of nausea \nTook daily omeprazole and x1 dose of mylanta w/ no effect\nVomit w/ undigested food contents and slightly blood stained last night; this morning just white mucus \nReports nausea and dizziness - worse with ambulation \nReports slightly blurry vision since \nReports mild headache last night - sharp pain in head aftervomited, self-resolved \nDenies pain in jaw/neck/shoulder; Denies chest pain and shortness of breath\nBP 137/73 - BPs have been stable\nReporting diarrhea for the past couple of days - 5 times just today. Loose orange/yellow stools. \nReporting clear/yellow urine; Taking cipro for UTI for about a week, last dose today \nBlood sugars have been stable in low to mid 100s. \nNo on anticoagulation. \nReviewed REG flags.\n\nI provided information on the mobile health provider response time and advised the patient and/or caregiver to monitor reported signs and symptoms. I discussed the warning signsof when to seek emergency care. } [facility] responds to the listed address for 64 yof w/ a c/c of nausea and vomiting. Upon arrival on scene, pt is found seated at the kitchen table smiling and tracking [facility] on approach. She is generally well appearing w/ w/p/d skin and is not in respiratory distress. No facial droop or one-sided weakness are observed and she is not bleeding anywhere. Pt is endorsing 3 days of n/v/dw/ substernal burning in her chest, mild sob due to the burning sensation, and loose, watery diarrhea. She denies blood in the stool, but last bout of emesis had a small amount of blood in it. She does not have a dx of esophageal erosion or varices. She is not using alcohol regularly. Pt is a diabetic and is well controlled w/ trulicity and has a known hx of gastric reflux and is prescribed omeprazole, which has not been working for her these past few days. She has also tried Mirolax w/ no relief. Pt describes the pain as burning and it seems to get worse when she is up and moving around. Shecannot lay flat at baseline due to the reflux. She had a small stroke x5 years ago, butis not anticoagulated. Allergies to penicillin, which cause anaphylaxis s/s. Pt also reports just ge tting over a UTI about a week ago. [facility] obtains vital signs and pt is assessed. Head is atraumatic and normocephalic. Sclera are clear and extraocular movements are intact. Neck is supple and trachea is midline. Chest rises and falls w/ respirations. Mild expiratory wheeze is noted in the mid region of the L side, all other angulo are clear to auscultation bilaterally. Some tenderness w/ palpation of epigastric region, but overall abdomen is soft and nontender w/ no guarding, distension, or pulsating masses noted. [facility] obtains a 12-lead EKG due to pt complaint and risk factors. EKG shows a RBBB w/ some nonspecific T wave abnormalities. [facility] contacts [facility] and discusses the above. After asking more questions, [facility] is not concerned w / EKG findings at this time, however, pt is encouraged to get a followup EKG w/ her PCP ASHLY. [facility] orders IV access for bmp and administration of reglan. IV access is obtained w/ a 20ga catheter in the R AC using aseptic technique and blood is drawn for bmp. IV is flushed and locked w/ a saline lockand secured. Pt is amendable to trying Reglan and [facility] orders 10mg IV. [facility] also recommends pt increase her omeprazole to BID for one month and if she wishes to try OTC Gaviscon instead of the Mirolax.[facility] administers 10mg Reglan SIVP and flushed w/ 10mls NS. IV is removed and pressure bandage is applied w/ 2x2 and coban. [facility] informs pt of warning signs of when to seek emergency care and again advises pt to contact her PCP, which she does as [facility] is leaving. [facility] is clear. Report completed by RENEE Claire [id number]. EKG, POC_BLOODWORK, URINE_DIPSTICK Written by [facility] on 2024-10-24
--- OUTSIDE RECORDS SUMMARY | 2025-01-30 09:50 | XMS_ITS | Encounter Summary ---
Author Organization [facility] Address [address] [place] [address] Care Team Providers Care Remote Recruiter Name Role Phone Ora Sweeney MD Primary Care Prov ider Encounter Details Date Type Department Care Team (Late st Contact Info) Description 11/13/2024 Lab Requisition [facility] - Main Lab [address] [place] [phone] Heriberto Rodriguez MD [address] [facility] 103 [place] [phone] Other hydronephrosis Social History Tobacco Use Types Packs/Day Years [...] is your living situation? 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 Not on file Not on file documented as of this encounter Plan of Treatment Upcoming Encounters Date Type Department Care Team (Late st Contact Info) Description 02/02/2025 1:30 PM EST Office Visit Adult Medicine [address] [phone] Ora Sweeney MD [address] [place] [address] 02/24/2025 9:30 AM EST Office Visit Adult Medicine [address] [phone] Paula Garnica PA [address] [place] [address] 03/18/2025 8:30 AM EST Office Visit Orthopedic Surgery - [place] [address] 175 [facility] 250 [place] [address] Duke Dunn, DPM [address] [address] 04/01/2025 10:00 AM EST Office Visit Gastroenterology - 299 [place] [address] [phone] Alivia Dominguez, DONN [address] [address] 05/04/2025 10:00 AM EST Office Visit Endocrinology [address] [phone] Myrna Hussein MD [address] [place] [address] 09/22/2025 9:30 AM EDT Office Visit Pulmonology - [place] 175 [facility] 200 [place] [phone] Pretty Le MD 230 [place] [phone] 10/01/2025 11:30 AM EDT Office Visit Adult Medicine [facility] 444 [place], [place] [phone] Ora Sweeney MD [address] [place] [address] 01/20/2026 9:30 AM EST Office Visit [address] [phone] Unruly Ferrera MD 230 [place] [phone] documented as of this encounter Procedures Procedure Name Priority Date/Time Associated Diagnosis Comments CREATININE, SERUM Routine 11/12/2024 11: 10 AM EDT Other hydronephrosis BUN Routine 11/12/2024 11:10 AM EDT Other hydronephrosis documented in this encounter Results * Creatinine (11/12/2024 11:10 AM EDT) Creatinine 1.01 0.50 - 1.10 mg/dL LAB CHEMISTRY METHOD 11/13/2024 10:37 AM EDT [facility] eGFR 62 >=60 mL/min/1. 73m2 LAB CHEMISTRY METHOD 11/13/2024 10:37 AM EDT [facility] Comment:Calculation based on the Chronic Kidney Disease Epidemiology Collaboration (CKD-EPI) equation refit without adjustment for race. Blood Venous blood specimen / Unknown 11/12/2024 11:10 AM EDT 11/13/2024 9:43 AM EDT us Heriberto Rodriguez MD LAB BLOOD ORDERABLES Final Resul t [facility] 299 [place] [address], [place] [phone] * BUN (11/12/2024 11:10 AM EDT) BUN 13 5 - 25 mg/dL LAB CHEMISTRY METHOD 11/13/2024 10:37 AM EDT [facility] Blood Venous blood specimen / Unknown 11/12/2024 11:10 AM EDT 11/13/2024 9:43 AM EDT us Heriberto Rodriguez MD LAB BLOOD ORDERABLES Final Resul t Performing Organization Address [facility] Co de Phone Number [facility] 299 [place] [address], [place] [phone] documented in this encounter Visit Diagnoses Diagnosis Other hydronephrosis documented in this encounter Additional Health Concerns Infection Onset Date Last Indicated Resolved Time Respiratory Rule-Out 11/27/2024 11/27/2024 025 10:28 AM EDT COVID-19 Rule-Out 11/27/2024 11/27/2024 11/27/2024 10:28 AM EDT Enterovirus 11/27/2024 11/27/2024 12/21/2024 7:04 PM EDT Rhinovirus 11/27/2024 11/27/2024 12/21/2024 7:04 PM EDT Respiratory Rule-Out 01/09/2025 01/09/2025 025 11:21 PM EDT COVID-19 Rule-Out 01/09/2025 01/09/2025 01/09/2025 11:21 PM EDT Assessment Noted Time PHQ-9 Depression Total Score: 1 08/21/19 25 8:45 AM EDT documented as of this encounter Care Teams Remote Recruiter Relationship Specialty Start Date End Date Ora Sweeney MD [address] [place] [phone] PCP - General Internal Medicine 01/09/24 documented as of this encounter
--- OUTSIDE RECORDS SUMMARY | 2025-01-30 09:50 | XMS_ITS | Encounter Summary ---
Author Organization [facility] Address [address] [place] [address] Care Team Providers Care Bushler Name Role Phone Ora Sweeney MD Primary Care Prov ider Encounter Details Date Type Department Care Team (Late st Contact Info) Description 07/04/2024 Lab Requisition [facility] - Main Lab [address] [facility] [address] [facility] [place] [phone] Isabel Gray, PA [address] [facility] [address] 103 [place] [address] Dysuria Social History Tobacco Use Types Packs/Day [...] for your loved ones. For example, childcare administrator or elderly care for an older adult? No 01/24/2024 Employment and Income Answer Date Recor ded During the last four weeks, have you been actively looking for work? No 01/24/2024 Living Situation Answer Date Recorded What is your living situation? Unrecognized valu e 01/24/2024 Comments No Sex and Gender Information Value Date Recorded Sex Assigned at Female 06/30/2024 2:43 PM EDT Legal Sex Female 3:50 AM EST Gender Identity Female 06/30/2024 2:43 PM EDT Sexual Orientation Straight 06/30/2024 2: 43 PM EDT documented as of this encounter Plan of Treatment Upcoming Encounters Date Type Department Care Team ([facility] st Contact Info) Description 02/02/2025 1:30 PM EST Office Visit Adult Medicine [address] [phone] Ora Sweeney MD [address] [place] [address] 02/24/2025 9:30 AM EST Office Visit Adult Medicine [address] [phone] Paula Garnica PA [address] [place] [address] 03/18/2025 8:30 AM EST Office Visit Orthopedic Surgery [facility] [address] [phone] Duke Dunn, DPM [address] [address] 04/01/2025 10:00 AM EST Office Visit Gastroenterology - 299 [facility] [address] [phone] Alivia Dominguez, DONN [address] [address] 05/04/2025 10:00 AM EST Office Visit Endocrinology [address] [phone] Myrna Hussein MD [address] [place] [address] 09/22/2025 9:30 AM EDT Office Visit Pulmonology [facility] 175 [facility] 200 [place] [phone] Pretty Le MD [address] [place] [phone] 10/01/2025 11:30 AM EDT Office Visit Adult Medicine [address] [phone] Ora Sweeney MD 444 [place], [place] 01/20/2026 9:30 AM EST Office Visit [facility] 271 [place] [phone] Unruly Ferrera MD 230 [place] [phone] documented as of this encounter Procedures Procedure Name Priority Date/Time Associated Diagnosis Comments BACTERIAL IDENTIFICATION AND SUSCEPTIBILITY, AEROBIC Routine 07/03/2024 12:00 AM EDT Dysuria documented in this encounter Results * (ABNORMAL) Bacterial identification and susceptibility, aerobic (07/03/2024 12:00 AM EDT) Culture, Bacterial ID and Sensitivity Enterococcus faecalis(A) AARON 07/05/2024 9:20 AM EDT [facility] Comment: Edited result: Previously reported as Enterococcus species on 07/04/2024 at 1100 EDT. Other Urine specimen from urethra / Unknown 07/03/2024 07/04/2024 10:23 AM EDT Narrative [facility] - 07/05/2024 9:20 AM [...] MICROBIOLOGY - GENERAL ORDER ARELIS Final Result [facility] 299 [place] [address], documented in this encounter Visit Diagnoses Diagnosis [...] documented as of this encounter Care Teams Bushler Relationship Specialty Start Date End Date Ora Sweeney MD [address] [place] [phone] PCP - General Internal Medicine 01/09/24 documented as of this encounter
--- OUTSIDE RECORDS SUMMARY | 2025-01-30 09:50 | XMS_ITS | Encounter Summary ---
Author Organization [facility] Address [address] [place] [address] Care Team Providers Care Auditor Appraiser Name Role Phone Ora Sweeney MD Primary Care Prov ider Encounter Details Date Type Department Care Team (Late st Contact Info) Description 10/28/2024 Lab Requisition [facility] - Main Lab [address] [facility] [address] [facility] [place] [phone] Sade Zarate, DONN 36[address] 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 Not on file Not on file documented as of this encounter Plan of Treatment Upcoming Encounters Date Type Department Care Team (Late st Contact Info) Description 02/02/2025 1:30 PM EST Office Visit Adult Medicine [address] [phone] Ora Sweeney MD [address] [place] [address] 02/24/2025 9:30 AM EST Office Visit Adult [address] [phone] Paula Garnica PA [address] [place] [address] 03/18/2025 8:30 AM EST Office Visit Orthopedic Surgery - [place] 250 175 [facility] 250 [place] [phone] Duke Dunn, DPM [address] [address] 04/01/2025 10:00 AM EST Office Visit Gastroenterology - 299 [place] [address] [phone] Alivia Dominguez, DONN [address] [address] 05/04/2025 10:00 AM EST Office Visit Endocrinology [address] [phone] Myrna Hussein MD [address] [place] [address] 09/22/2025 9:30 AM EDT Office Visit Pulmonology - [place] 175 [facility] 200 [place] [phone] Pretty Le MD 230 [place] [phone] 10/01/2025 11:30 AM EDT Office Visit Adult [facility] 444 [place], [place] [phone] Ora Sweeney MD [address] [place] [address] 01/20/2026 9:30 AM EST Office Visit [address] [phone] Unruly Ferrera MD 230 [place] [address] documented as of this encounter Procedures Procedure Name Priority Date/Time Associated Diagnosis Comments BACTERIAL IDENTIFICATION AND SUSCEPTIBILITY, AEROBIC Routine 10/27/2024 12:00 AM EDT Other abnormal findings in urine documented in this encounter Results * (ABNORMAL) Bacterial identification and susceptibility, aerobic (10/27/2024 12:00 AM EDT) Culture, Bacterial ID and Sensitivity Klebsiella pneumoniae ssp pneumoniae(A) AARON 10/29/2024 8:17 AM EDT [facility] Comment: This is an edited result. Previous organism was Gram negative bacilli on 10/28/2024 at 1229 EDT. Culture, Bacterial ID and Sensitivity Streptococcus beta-hemolytic Group B(A) AARON 10/29/2024 8:17 AM EDT [facility] Comment: Susceptibility testing is not routinely performed for Beta Streptococcus isolates since these organisms are predictably sensitive to Penicillin. If the Patient is not responding, is allergic to Penicillin, or further therapeutic information is requir ed, please consult an Infectious Disease Specialist. Other Urine specimen from urethra / Unknown 10/27/2024 10/28/2024 10:50 AM EDT Narrative Organism Antibiotic Method Susceptibility Klebsiella pneumoniae ssp pneumoniae Amoxicillin/Clavulanate AARON 4 ug/ml: Susceptible Klebsiella pneumoniae ssp pneumoniae Ampicillin/Sulbactam AARON 16 ug/ml: Intermediate Klebsiella pneumoniae ssp pneumoniae Piperacillin/Tazobactam AARON 8 ug/ml: Susceptible Klebsiella pneumoniae ssp pneumoniae Cefazolin (Urine) AARON 2 ug/ml: Susceptible Klebsiella pneumoniae ssp pneumoniae Cefoxitin AARON 8 ug/ml: Susceptible Klebsiella pneumoniae ssp pneumoniae Ceftazidime AARON <=0.5 ug/ml: Susceptible Klebsiella pneumoniae ssp pneumoniae Ceftriaxone AARON <=0.25 ug/ml: Susceptible Klebsiella pneumoniae ssp pneumoniae Cefepime AARON <=0.12 ug/ml: Susceptible Klebsiella pneumoniae ssp pneumoniae Meropenem AARON <=0.25 ug/ml: Susceptible Klebsiella pneumoniae ssp pneumoniae Amikacin AARON <=1 ug/ml: Susceptible Klebsiella pneumoniae ssp pneumoniae Gentamicin AARON <=1 ug/ml: Susceptible Klebsiella pneumoniae ssp pneumoniae Ciprofloxacin AARON >=4 ug/ml: Resistant Klebsiella pneumoniae ssp pneumoniae Levofloxacin AARON 4 ug/ml: Resistant Klebsiella pneumoniae ssp pneumoniae Nitrofurantoin AARON 64 ug/ml: Intermediate Klebsiella pneumoniae ssp pneumoniae Trimethoprim/Sulfamethoxazo le AARON >=320 ug/ml: Resistant us Sade Zarate [facility] MICROBIOLOGY - GENERA L ORDERABLES Final Result [facility] 299 [place] [address], documented in this encounter Visit Diagnoses Diagnosis Other abnormal findings in urine documented in this encounter Additional Health Concerns Infection Onset Date Last Indicated Resolved Time Respiratory Rule-Out 11/27/2024 11/27/2024 025 10:28 AM EDT COVID-19 Rule-Out 11/27/2024 11/27/2024 11/27/2024 10:28 AM EDT Enterovirus 11/27/2024 11/27/2024 12/21/2024 7:04 PM EDT Rhinovirus 11/27/2024 11/27/2024 12/21/2024 7:04 PM EDT Respiratory Rule-Out 01/09/2025 01/09/20252 025 11:21 PM EDT COVID-19 Rule-Out 01/09/2025 01/09/202501/0901/09/2025 11:21 PM EDT Assessment Noted Time PHQ-9 Depression Total Score: 1 08/21/19 25 8:45 AM EDT documented as of this encounter Care Teams Auditor Appraiser Relationship Specialty Start Date End Date Ora Sweeney MD [address] [place] [phone] PCP - General Internal Medicine 01/09/24 documented as of this encounter
--- OUTSIDE RECORDS SUMMARY | 2025-01-30 09:50 | XMS_ITS | Encounter Summary ---
Author Organization [facility] Address [address] [place] [address] Encounters * CPT with Medical instED at [employer] on 2024-10-06 { reasonForRequest : pt reports a pimple near top of butt crack, polyonidal cyst possible , patientReports : Fever and chills noted in setting of wound , d enies :[ Stoddard Flash, circumferential stoddard , Stoddard reported with black tissue to the area , Open skin area after a fall with uncontrolled bleeding , Absces s/infection with streaking noted, presence of fever or without , History of cellulitis, isolated redness noted , Rash , Bites -bugs, spider , Abscess ],&qu ot;chiefComplaints : Wound Care , pmh : Hypertension, Diabetes Mellitus Type 2 , allergies : Penicillins , otherAllergies :null, p ainAssessment : , visitOutcome : , additionalComments": 64 y.o female \n\nPt has a pimple in the center of her butt. She feels it maybe infected and wants it looked at. \nShe did have chills yesterday, but is unsure about fever. \nThe skin is intake but has yellow pus inside of it, \nShe has had it for 3 days .\nThe area is warm to the touch andinflamed. \n\nI provided information on the mobile health provider response time and advised the patient and/or caregiver to monitor reported signs and symptoms. I discussed the warning signs of whento seek emergency care. } Dispatched to the call address for the female with a pimple on her buttock. Pt states she noticed Sunday that she had a bump on the upper inside part of her butt. He daughter popped it yesterday and drained it but the pain not only continues today but is worse. Pt states she has never had this happen to her before. She advises she has been using antibiotic ointment on the area. She has been keeping it as clean and dry as possible. She endorses chills yesterday but not today and denies, n/v/d,chest pain, diff breathing, fevers or other complaints at this time. Pt was found sitting on living room couch, CAOx4, airway open and patent, breathing non labored, able to speak in full sentences, -JVD, mucous membranes pink and moist, skin PWD with good turgor, pupils PERRL, -HEENT, +CMSx4, abd soft non distended/tender, afebrile, lungs CTA, small wound scabbed over on the inside of left buttock with erythema. Pt was assessed. C consulted. Pt given Bactrim and script called into preferred pharmacy. Red flags discussed. ALL times are approx. ORAL_MEDICATION, WOUND_CARE Written by Medical instED on 2024-10-06
--- OUTSIDE RECORDS SUMMARY | 2025-01-30 09:50 | XMS_ITS | Encounter Summary ---
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 Please sign and fax to [phone] documented in this encounter Plan of Treatment Upcoming Encounters Date Type Department Care Team (Late st Contact Info) Description 02/02/2025 1:30 PM EST Office Visit Adult Medicine [address] [phone] Ora Sweeney MD [address] [place] [address] 02/24/2025 9:30 AM EST Office Visit Adult Medicine [address] [phone] Paula Garnica PA [address] [place] [address] 03/18/2025 8:30 AM EST Office Visit Orthopedic Surgery - [place] 250 175 [facility] 250 [place] [phone] Duke Dunn, BASIL [address] [address] 04/01/2025 10:00 AM EST Office Visit Gastroenterology - 299 [facility] [address] [phone] Alivia Dominguez NP [address] [address] 05/04/2025 10:00 AM EST Office Visit Endocrinology [address] [phone] Myrna Hussein MD [address] [place] [address] 09/22/2025 9:30 AM EDT Office Visit Pulmonology - [place] 175 [facility] 200 [place] [phone] Pretty Le MD [address] [place] [address] 10/01/2025 11:30 AM EDT Office Visit Adult Medicine [address] [phone] Ora Sweeney MD [address] [place] [address] 01/20/2026 9:30 AM EST Office Visit Breast Care [address] [phone] Unruly Ferrera MD 230 [place], [place] documented as of this encounter Visit Diagnoses Not on filedocumented in this encounter Additional Health Concerns Assessment Noted Time PHQ-9 Depression Total Score: 1 08/21/19 25 8:45 AM EDT documented as of this encounter Care Teams Solar Photovoltaic Crew Lead Relationship Specialty Start Date End Date Ora Sweeney MD [address] [place] [address] PCP - General Internal Medicine 01/09/24 documented as of this encounter
--- OUTSIDE RECORDS SUMMARY | 2025-01-30 09:50 | XMS_ITS | Encounter Summary ---
Author Organization [facility] Address [address] [place] [address] Care Team Providers Care Sports Leadership Instructor Name Role Phone Ora Sweeney MD Primary Care Prov ider Encounter Details Date Type Department Care Team (Late st Contact Info) Description 10/17/2024 Lab Requisition [facility] - Main Lab [address] [facility] [place] [phone] Heriberto Rodriguez MD 3640 [facility] 103 [place] [phone] Urinary tract infection, site not specified Social History Tobacco Use Types Packs/Day Years [...] care for your loved ones. For example, children counselor or elderly care for an older adult? 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 Not on file Not on file documented as of this encounter Plan of Treatment Upcoming Encounters Date Type Department Care Team (Late st Contact Info) Description 02/02/2025 1:30 PM EST Office Visit Adult Medicine [address] [phone] Ora Sweeney MD [address] [place] [address] 02/24/2025 9:30 AM EST Office Visit Adult [address] [phone] Paula Garnica PA [address] [place] [address] 03/18/2025 8:30 AM EST Office Visit Orthopedic Surgery - [place] [address] [phone] Duke Dunn, DPM [address] [address] 04/01/2025 10:00 AM EST Office Visit Gastroenterology - 299 [place] [address] [phone] Alivia Dominguez, DONN [address] [address] 05/04/2025 10:00 AM EST Office Visit Endocrinology [address] [phone] Myrna Hussein MD [address] [place] [address] 09/22/2025 9:30 AM EDT Office Visit Pulmonology [facility] 175 [facility] 200 [place] [phone] Pretty Le MD 230 [place] [phone] 10/01/2025 11:30 AM EDT Office Visit Adult Medicine [facility] 444 [place], [place] [phone] Ora Sweeney MD [address] [place] [address] 01/20/2026 9:30 AM EST Office Visit [address] [phone] Unruly Ferrera MD 230 [place] [phone] documented as of this encounter Procedures Procedure Name Priority Date/Time Associated Diagnosis Comments BACTERIAL IDENTIFICATION AND SUSCEPTIBILITY, AEROBIC Routine 10/16/2024 12:00 AM EDT Urinary tract infection, site not specified documented in this encounter Results * (ABNORMAL) Bacterial identification and susceptibility, aerobic (10/16/2024 12:00 AM EDT) Culture, Bacterial ID and Sensitivity Predominant Streptococcus beta-hemolytic Group B(A) 10/18/2024 11:41 AM EDT [facility] Comment: Susceptibility testing is not routinely performed for Beta Streptococcus isolates since these organisms are predictably sensitive to Penicillin. If the Patient is not responding, is allergic to Penicillin, or further therapeutic information is requir ed, please consult an Infectious Disease Specialist. The organism value for this result has been updated. These results have been appended to the previously preliminary verified report. Other Urine specimen from urethra / Unknown 10/16/2024 10/17/2024 10:02 AM EDT Narrative [facility] - 10/18/2024 11:41 AM EDT Normal skin/urogenital chun noted Heriberto Rodriguez MD LAB MICROBIOLOGY - GENERAL ORDER ARELIS Edited Result - Final [facility] 299 [place] [address], documented in this encounter Visit Diagnoses Diagnosis Urinary tract infection, site not specified documented in this encounter Additional Health Concerns [...] documented as of this encounter Care Teams Sports Leadership Instructor Relationship Specialty Start Date End Date Ora Sweeney MD [address] [place] [phone] PCP - General Internal Medicine 01/09/24 documented as of this encounter
--- OUTSIDE RECORDS SUMMARY | 2025-01-30 09:50 | XMS_ITS | Encounter Summary ---
Author Organization [facility] Address [address] [place] [address] Care Team Providers Care Seasonal Package Handler Name Role Phone Ora Sweeney MD Primary Care Prov ider Encounter Details Date Type Department Care Team (Late st Contact Info) Description 01/29/2025 Results Follow-Up Adult Medicine [facility] [address] [place] [address] Sonal Torres PA 444 [place], [place] Social History Tobacco Use Types Packs/Day [...] for your loved ones. For example, children's service supervisor or elderly care for an older [...] 1:30 PM EST Office Visit Adult Medicine [address] [phone] Ora Sweeney MD [address] [place] [address] 02/24/2025 9:30 AM EST Office Visit Adult [address] [phone] Paula Garnica PA 444 [place], [place] 03/18/2025 8:30 AM EST Office Visit Orthopedic Surgery - [place] 250 175 [facility] 250 [place] [address] Duke Dunn, DPM 175 [facility] 250 [place] [address] 04/01/2025 10:00 AM EST Office Visit Gastroenterology - 299 [place] 299 [facility] 419 [place] [address] Alivia Dominguez, DONN 299 [facility] 419 [place] [address] 05/04/2025 10:00 AM EST Office Visit Endocrinology [facility] 444 [place], [place] [phone] Myrna Hussein MD [address] [place] [address] 09/22/2025 9:30 AM EDT Office Visit Pulmonology - [place] 175 [facility] 200 [place] [phone] Pretty Le MD 230 [place] [phone] 10/01/2025 11:30 AM EDT Office Visit Adult Medicine [place] [address] [phone] Ora Sweeney MD [address] [place] [address] 01/20/2026 9:30 AM EST Office Visit [facility] - [place] 271 [place] [phone] Unruly Ferrera MD 230 [place] [address] documented as of this encounter Visit Diagnoses Not on filedocumented in this encounter Additional Health Concerns Assessment Noted Time PHQ-9 Depression Total Score: 1 08/21/19 25 8:45 AM EDT documented as of this encounter Care Teams Seasonal Package Handler Relationship Specialty Start Date End Date Ora Sweeney MD 4 [place] [phone] PCP - General Internal Medicine 01/09/24 documented as of this encounter
--- OUTSIDE RECORDS SUMMARY | 2025-01-30 09:50 | XMS_ITS | Clinical Summary ---
Author Organization [facility] Address [address] [place] [address] Care Team Providers Care Stick Roller Name Role Phone Iza Mi Primary Care Provide r Social History Tobacco Use Types Packs/Day Years Used Date Smoking Tobacco: Never Assessed Comments Unknown Sex and Gender Information Value Date Recorded Sex Assigned at Not on file Legal Sex Female 9:41 AM EDT Gender Identity Female 01/18/2025 10:56 AM EST Sexual Orientation Straight 01/18/2025 10 :56 AM EST Plan of Treatment Upcoming Encounters Date Type Department Care Team (Late st Contact Info) Description 02/03/2025 9:00 AM EST Office Visit [facility] [address] [place] [address] Industrial Psychology Professor: Hanny Bautista MD [address] [place] [address] Health Maintenance Due Date Last Done Comments Cologuard 1960 Colon Cancer Screening 1958 Colonoscopy 1958 FOBT / Fit Test 1958 Hepatitis C Screening 1958 Sigmoidoscopy 1958 Pneumococcal Vaccine: 50+ Ye ars (1 of 2 - PCV) 1977 DTaP,Tdap,and Td Vaccines (1 - Tdap) 1980 Mammogram 1998 Osteoporosis Screening 2008 RSV Vaccine (60+ years old a nd patients) (1 - Risk 50-74 years 1-dose series) 2008 Zoster Vaccines (1 of 2) 2008 Alcohol/Substance Use Screening 03/12/2024 Depression Screening and Follow-Up 03/12/2024 Fall Risk Screening 03/12/2024 Health Care Proxy Review 03/12/2024 Social Drivers of Health Meggan ual Screening 03/12/2024 Influenza Vaccine (#1) 2024 COVID-19 Vaccine (1 - 2024-2 6 season) 2024 Hepatitis B Vaccines Aged Out No long er eligible based on patient's age to complete this topic Insurance [facility] [place] [id number] Care Teams Stick Roller Relationship Specialty Start Date End Date Iza Mi [address] [place] [phone] PCP - General Internal Medicine 01/01/25
== END 2025-01-30 10:18 | disposition home or self-care (01) ==
LOC: HO.HSMS 09:24
PROVIDERS: PCP Internal Medicine; Visit Provider Physician Assistant Medical
DX: Z86.69 Personal history of other diseases of the nervous system and sense organs (principal); M54.2 Cervicalgia; G47.33 Obstructive sleep apnea (adult) (pediatric); G47.19 Other hypersomnia; R29.6 Repeated falls; R26.9 Unspecified abnormalities of gait and mobility
CPT/HCPCS: 99214

== ENCOUNTER → 2025-01-30 09:23 | Outpatient (BNVA) | payer OTHER, SELFPAY | PROVIDERS: PCP Internal Medicine; Visit Provider Physician Assistant Medical | DX: G44.039 Episodic paroxysmal hemicrania, not intractable (principal); G47.33 Obstructive sleep apnea (adult) (pediatric); Z99.89 Dependence on other enabling machines and devices; R26.9 Unspecified abnormalities of gait and mobility; G47.19 Other hypersomnia; R29.6 Repeated falls; M54.2 Cervicalgia; Z86.69 Personal history of other diseases of the nervous system and sense organs; R41.89 Other symptoms and signs involving cognitive functions and awareness; R46.89 Other symptoms and signs involving appearance and behavior | CPT/HCPCS: 99212 ==